=== PATIENT | female | born 1995 | race Caucasian/White ===

== ENCOUNTER 2016-04-16 11:26 | Inpatient (IN) | payer BC, MEDICAID ==
[~2016-04-16] VITALS: Ht 157.5 cm; Wt 62.2 kg
[~2016-04-16 11:26] MED LIST: ACET50TA PO; MOTR200T44 PO; PRENTAB9 PO
[2016-04-16 12:07] LABS: AMPHETAMINES LEVEL URINE NEGATIVE (NEGATIVE); BENZODIAZEPINES URINE NEGATIVE (NEGATIVE); COCAINE METABOLITE URINE NEGATIVE (NEGATIVE); CONTROL LINE INT CTR LINE PRESENT; METHADONE URINE NEGATIVE (NEGATIVE); OPIATES URINE NEGATIVE (NEGATIVE); TRICYCLIC ANTIDEPRESS URINE NEGATIVE (NEGATIVE)
[2016-04-16 12:12] LABS: CONTROL LINE HCG INT CTR LINE PRESENT
[2016-04-16 12:17] LABS: MEAN CORPUSCULAR HEMOGLOBIN 29.8 pg (27.0-33.0); MEAN CORPUSCULAR HGB CONC 33.5 g/dl (32.0-36.5); RED CELL DISTRIBUTION WIDTH 13.2 % (11.5-14.5); WHITE BLOOD COUNT 5.4 K/mm3 (4.0-10.0)
[2016-04-16 12:31] LABS: ALKALINE PHOSPHATASE 89 U/L (45-117); ALT/SGPT 27 U/L (12-78); ANION GAP 10 MEQ/L (8-16); AST/SGOT 18 U/L (15-37); BILIRUBIN,DIRECT 0.2 MG/DL (0.0-0.2); BILIRUBIN,TOTAL 0.8 MG/DL (0.2-1.0); BLOOD UREA NITROGEN 12 MG/DL (7-18); CALCIUM LEVEL 9.1 MG/DL (8.5-10.1); CARBON DIOXIDE LEVEL 25 MEQ/L (21-32); CHLORIDE LEVEL 109 MEQ/L (98-107); GLOMERULAR FILTRATION RATE > 60.0 (>60); GLUCOSE, FASTING 90 MG/DL (70-105); POTASSIUM SERUM 4.4 MEQ/L (3.5-5.1); SODIUM LEVEL 144 MEQ/L (136-145)
--- NOTE | 2016-04-16 15:42 | EDDOCDS ---
Physician Documentation [facility] Name: Mariia Gallegos Age: 21 yrs Sex: Female : 1995 Arrival Date: 04/16/2016 Time: 11:26 Bed BHU1 Private MD: Haven Cartagena K. Disposition: 04/16/16 13:40 Hospitalization ordered by Ludin Carrion for Inpatient Admission. Preliminary diagnosis is Major depressive disorder, single episode. - Bed requested for Admit. - Status is Inpatient Admission. mcp - Condition is Stable. - Problem is an acute exacerbation. - Symptoms are unchanged. Historical: - Allergies: No known drug Allergies; - Home Meds: 1. none - PMHx: Anxiety; Depression; SI thoughts; - PSHx: Lumpectomy- Left; - Social history: Smoking status: Patient states was never smoker of tobacco. No barriers to communication noted, The patient speaks fluent Welsh. - Family history: Not pertinent. - : The pt / caregiver states he / she is not on anticoagulants. Home medication list is obtained from the patient. - Exposure Risk Screening:: None identified. GEOTECHNICAL INTERN: 04/16 11:51 Patient states she has not resumed regular menses since of daughter 2 months ago. js13 Patient reports occasional spotting. Vital Signs: 11:27 BP 128 / 76; Pulse 75; Resp 16; Temp 98.9; Pulse Ox 100% ; Weight 58.97 kg / 130.01 cmb lbs; Height 5 ft. 2 in. (157.48 cm); Pain 0/10; 15:20 BP 130 / 60; Pulse 72; Resp 16; Temp 98; Pulse Ox 98% ; Pain 3/10; dpm 11:27 Body Mass Index 23.78 (58.97 kg, 157.48 cm) cmb MDM: 11:32 Consult PFS/PSA/Utilization Review Coordinator ordered. sd1 11:32 Consult PFS/PSA/Utilization Review Coordinator: Patient's case requires discussion with on-call sd1 Psychiatrist ordered. 11:32 PSA/PFS to call Nursing Pickers Material Handlers, to enter patient data on [place] Safe Act if patient sd1 involuntarily admitted or transferred for SI or HI ordered. 11:32 Confirm accurate psychiatric medication list and times of last dosage ordered. sd1 11:32 Detain Pt Until Medically/PFS Cleared ordered. sd1 11:33 Acetaminophen Level Ordered. EDMS 11:33 Basic Metabolic Profile Ordered. EDMS 11:33 Complete Blood Count Ordered. EDMS 11:33 Drug Eval Toxicology ED Only Ordered. EDMS 11:33 Ethyl Alcohol (ethanol) Ordered. EDMS 11:33 HCG,Serum Qualitative Ordered. EDMS 11:34 Liver Profile Ordered. EDMS 11:34 Salicylate Level Ordered. EDMS 11:34 Thyroid Stimulating Hormone Ordered. EDMS 12:13 Financial registration complete. pm4 12:34 Drug Eval Toxicology ED Only Reviewed. sd1 12:34 Complete Blood Count Reviewed. sd1 12:34 HCG,Serum Qualitative Reviewed. sd1 12:40 [facility] Payment Agreement was scanned into [employer] and attached to record. pm4 14:28 Consult PFS/PSA/Utilization Review Coordinator complete. srm 14:28 Consult PFS/PSA/Utilization Review Coordinator: Patient's case requires discussion with on-call srm Psychiatrist complete. 14:28 PSA/PFS to call Nursing [employer], to enter patient data [place] Safe [place] if patient srm involuntarily admitted or transferred for SI or HI complete. 14:34 Admit to IMHU: ordered. EDMS 15:05 [facility] Legal paperwork was scanned into [employer] and attached to record. ac Signatures: Dispatcher [employer] EDMS Susie Bonilla MD MD sd1 Jennifer Tellez, RN RN Lillian Holcomb, RN RN Hubert Lynn, PSA PSA ac Micaela Diaz,RN RN js13 Will Palafox, Reg Reg pm4 The chart was reviewed and I authenticate all verbal orders and agree with the evaluation and treatment provided.Attachments: 12:40 [facility] Payment Agreement pm4 MTDD
--- NOTE | 2016-04-16 15:42 | EDDOCDS ---
Nurse's Notes [facility] Name: Mariia Gallegos Age: 21 yrs Sex: Female : 1995 Arrival Date: 04/16/2016 Time: 11:[address] MD: Haven Cartagena K. Diagnosis: Major depressive disorder, single episode Presentation: 04/16 11:42 Presenting complaint: Patient states: Patient was sent here from [facility] office for SI js13 and HI. Patient states she has a Hx of anxiety and depression and had a daughter 2 months ago. Patient states she has had increasing thoughts of SI with a plan to take overdose of Tylenol and/or Ibuprofen and thoughts of HI with a plan to suffocate her 2 month old daughter. Mental Health Triage Level: Level 2: The patient displays active suicidal ideations. The patient displays active homicidal ideations. Adult Sepsis Screening: The patient does not have new or worsening altered mentation. Patient's respiratory rate is less than 22. Systolic blood pressure is greater than 100. Patient has a qSOFA score of 0- Negative Sepsis Screen. Suicide/Homicide risk assessment- The patient admits to and/or has been reported to be having suicidal ideations. The patient admits to and/or has been reported to be having homicidal ideations. Status: Patient is not a director of professional services or dependent. Transition of care: patient was received from a primary care office; Dr Tena. Red Flag criteria, patient assessed and taken directly to a bed. 11:42 Acuity: JENNIFER Level 3 js13 11:42 Method Of Arrival: Walkin/Carried/Asstd js13 Triage Assessment: 11:49 General: Appears in no apparent distress, well developed, well nourished, well groomed, js13 Behavior is appropriate for age, cooperative. 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 . Pain: Denies pain. Pt Declines HIV testing. Neurological: Level of Consciousness is awake, alert. Respiratory: Airway is patent Respiratory effort is even, unlabored, Respiratory pattern is regular, symmetrical. Derm: Skin is pink, warm & dry. [facility]: 11:51 Patient states she has not resumed regular menses since of daughter 2 months ago. js13 Patient reports occasional spotting. Historical: - Allergies: No known drug Allergies; - Home Meds: 1. none - PMHx: Anxiety; Depression; SI thoughts; - PSHx: Lumpectomy- Left; - Social history: Smoking status: Patient states was never smoker of tobacco. No barriers to communication noted, The patient speaks fluent Arabic. - Family history: Not pertinent. - : The pt / caregiver states he / she is not on anticoagulants. Home medication list is obtained from the patient. - Exposure Risk Screening:: None identified. Screenin:50 Screening information is obtained from the patient. Fall risk: No risks identified. js13 Assistance ADL's: requires no assistance with activities of daily living. Abuse/DV Screen: The patient / caregiver reports he/she is: not in a situation that causes fear, pain or injury. Nutritional screening: No deficits noted. Advance Directives: There is no active DNR order. home support is adequate. Assessment: 11:50 General: Appears in no apparent distress, comfortable, Behavior is appropriate for age, js13 cooperative. Pain: Denies pain. Neurological: Level of Consciousness is awake, alert. Respiratory: Airway is patent Respiratory effort is even, unlabored, Respiratory pattern is regular, symmetrical. Derm: Skin is pink, warm & dry. 13:00 General: Appears in no apparent distress, comfortable, Behavior is appropriate for age, js13 cooperative. Neurological: Level of Consciousness is awake, alert. Respiratory: No deficits noted. Derm: Skin is pink, warm & dry. 15:38 General: Appears in no apparent distress, comfortable, Behavior is cooperative. Pain: mcp Location: head Pain currently is 3 out of 10 on a pain scale. Neurological: Level of Consciousness is awake, alert, Oriented to person, place, time, Moves all extremities. Speech is normal, Reports headache. Respiratory: Airway is patent Respiratory effort is even, unlabored. Derm: Skin is pink, warm & dry. Mental Health Eval: 14:53 Status: The patient is not a director of professional services or dependent. [facility]: The patient is not an established patient of [facility]. Referral Information: Evaluation referral is generated by [facility]. The patient was referred for evaluation because Pt went to [facility] today, states she has been depressed, suicidal with plan to overdose, and also has had thoughts of smothering her 2 month old daughter. Subjective: The patients chief complaint is "I've been depressed since my daughter was born, I. 15:18 Mental Health history: depression, suicide attempt by took overdose as teenager, did ac not receive any treatment Mental Health Admissions: None. Current Outpatient Mental Health Services: None. Current living environment is The patient currently lives with his / her child. with his / her significant other, . Patient presents to Emergency Department with the following symptoms within the past 2 weeks: anxiety, depressed mood, feelings of helplessness/hopelessness, poor concentration, sleep disturbance - erratic suicidal ideation with plan for pills. Patient presents to Emergency Department with the following symptoms within the past 2 weeks: Homicidal ideation toward their 2 month old daughter. Substance abuse: Pt denies. Mental status exam: Patients appearance is appropriate, Patient's behavior is cooperative, Speech is normal. Affect is blunted Mood is depressed. Hallucinations are denied. Appetite is normal. Memory is good. Energy level is normal. Content of thought is normal. Thought process is intact. Cognitive level is oriented to person, place, time and situation Patient's insight is fair. Rapport with interviewer is good. poor. 15:22 Disposition: Medically cleared for disposition by Susie Bonilla MD Psychiatric ac Consult is performed by phone with Dr Sheree Ng. [facility] Admission Criteria: The patient is experiencing suicidal ideation. The patient displays homicidal ideation. The patient requires continuous observation and/or control to protect self, others or property. The patient's care requires a multi-modal treatment plan under close supervision and coordination due to the complexity and severity of the patient's symptoms. The patient requires administration and monitoring of psychoactive medications by skilled medical providers due to the side effects of the psychoactive medications or significant dosage adjustments. Legal Status: Patient's legal status will be Emergency admission: . [place] Safe Act: [place] Safe Act is applicable to this patient. The patient poses a risk to self or other and the Nursing Lidar Analyst has been notified. He/She will enter the patient's data. DSM-V Differential Diagnosis: Unspecified Depressive Disorder (F32.9). Narrative: Pt reports that she is suicidal and homicidal, states that she has been depressed since the of her first child two months ago. PT states she has plan to overdose, thought about smothering her daughter, who she has staying with her biological father. Pt denies VH, states is unsure about hearing voices as opposed to her "conscience" telling her she is a bad mother and she is undeserving. Pt is not able to CFS at this time. Pt denies drug/ETOH abuse. Vital Signs: 11:27 BP 128 / 76; Pulse 75; Resp 16; Temp 98.9; Pulse Ox 100% ; Weight 58.97 kg; Height 5 cmb ft. 2 in. (157.48 cm); Pain 0/10; 15:20 BP 130 / 60; Pulse 72; Resp 16; Temp 98; Pulse Ox 98% ; Pain 3/10; dpm 11:27 Body Mass Index 23.78 (58.97 kg, 157.48 cm) cmb Vitals: 11: Log In Time: April 16, 2016 at 11:24. cmb 11:27 RN notified that patient meets Red Flag criteria. cmb ED Course: 11:[address] cmb 11:27 Haven Cartagena is Private Physician. cmb 11:27 Patient moved to [facility] cmb 11:[address] cmb 11:31 Patient moved to [facility] cmb 11:31 RN notified that patient meets Red Flag criteria. cmb 11:39 Patient visited by Nahum Emmanuel. dpm 11:48 Triage Initiated js13 11:50 The patient / caregiver is instructed regarding the plan of care and ED course. js13 Security observing. 11:50 No IV's were initiated during this patient's visit. No procedures done that require js13 assistance. Labs drawn. (by ED staff). Sent per order to lab. Urine collected. Clean catch specimen. Urine specimen sent to lab. 11:58 Susie Bonilla MD is Attending Physician. sd1 11:58 Patient visited by Susie Bonilla MD. sd1 11:59 Patient visited by Silvano Bowen,WINTER. mb9 12:02 Pt greeted and oriented to ED. Patient advised of names of staff involved in care, dpm location of call julio, wait times and NPO status. Patient has correct armband on for positive identification. Placed in gown. Placed in psych safe attire. Bed in low position. Side rails up X 1. Property removed, inventory done, given to family member, mother. Psych Safety Check: Location: Psych Room. Visual Assessment: Cooperative. 12:15 Patient visited by Nahum Emmanuel. dpm 12:36 Patient visited by Nahum Emmanuel. dpm 12:40 [facility] Payment Agreement was scanned into [employer] and attached to record. pm4 12:58 Patient visited by Nahum Emmanuel. dpm 13:05 Patient visited by Jennifer Tellez RN. srm 13:05 Diet: Patient given regular meal. srm 13:19 Patient visited by Nahum Emmanuel. dpm 13:40 Ludin Carrion is Hospitalizing Provider. sd1 13:45 Patient visited by Nahum Emmanuel. dpm 14:01 Patient visited by Nahum Emmanuel. dpm 14:14 Patient visited by Nahum Emmanuel. dpm 14:32 Patient visited by Nahum Emmanuel. dpm 14:47 Patient visited by Nahum Emmanuel. dpm 15:02 Patient visited by Nahum Emmanuel. dpm 15:05 E Legal paperwork was scanned into [employer] and attached to record. ac 15:16 Patient visited by Nahum Emmanuel. dpm 15:32 Patient visited by Nahum Emmanuel. dpm Attachments: 15:05 [facility] Legal paperwork ac Order Results: Lab Order: Acetaminophen Level; SPEC'M 04/16/16 11:42 Test: ACETAMINOPHEN LEVEL; Value: < 2.0; Range: 10.0-30.0; Abnormal: Below low normal; Units: UG/ML; Status: F Lab Order: Basic Metabolic Profile; SPEC'M 04/16/16 11:42 Test: GLUCOSE, FASTING; Value: 90; Range: 70-105; Units: MG/DL; Status: F Test: BLOOD UREA NITROGEN; Value: 12; Range: 7-18; Units: MG/DL; Status: F Test: CREATININE FOR GFR; Value: 0.80; Range: 0.55-1.02; Units: MG/DL; Status: F Test: SODIUM LEVEL; Range: 136-145; Units: MEQ/L; Status: I Test: POTASSIUM SERUM; Range: 3.5-5.1; Units: MEQ/L; Status: I Test: CHLORIDE LEVEL; Range: 98-107; Units: MEQ/L; Status: I Test: CARBON DIOXIDE LEVEL; Range: 21-32; Units: MEQ/L; Status: I Test: ANION GAP; Range: 8-16; Units: MEQ/L; Status: I Test: CALCIUM LEVEL; Range: 8.5-10.1; Units: MG/DL; Status: I Test: GLOMERULAR FILTRATION RATE; Value: > 60.0; Range: >60; Status: F Test: SODIUM LEVEL; Value: 144; Range: 136-145; Units: MEQ/L; Status: F Test: POTASSIUM SERUM; Value: 4.4; Range: 3.5-5.1; Units: MEQ/L; Status: F Test: CHLORIDE LEVEL; Value: 109; Range: 98-107; Abnormal: Above high normal; Units: MEQ/L; Status: F Test: CARBON DIOXIDE LEVEL; Value: 25; Range: 21-32; Units: MEQ/L; Status: F Test: ANION GAP; Value: 10; Range: 8-16; Units: MEQ/L; Status: F Test: CALCIUM LEVEL; Value: 9.1; Range: 8.5-10.1; Units: MG/DL; Status: F Test Note: ; Units are mL/min/1.73 m2 Chronic Kidney Disease Staging per NKF: Stage I & II GFR >=60 Normal to Mildly Decreased Stage III GFR 30-59 Moderately Decreased Stage IV GFR 15-29 Severely Decreased Stage V GFR <15 Very Little GFR Left ESRD GFR <15 on CORK INSULATOR Lab Order: Complete Blood Count; SPEC'M 04/16/16 11:42 Test: WHITE BLOOD COUNT; Value: 5.4; Range: 4.0-10.0; Units: K/mm3; Status: F Test: RED BLOOD COUNT; Value: 5.03; Range: 4.00-5.40; Units: M/mm3; Status: F Test: HEMOGLOBIN; Value: 15.0; Range: 12.0-16.0; Units: g/dl; Status: F Test: HEMATOCRIT; Value: 44.7; Range: 36.0-47.0; Units: %; Status: F Test: MEAN CORPUSCULAR VOLUME; Value: 89.0; Range: 80.0-96.0; Units: fl; Status: F Test: MEAN CORPUSCULAR HEMOGLOBIN; Value: 29.8; Range: 27.0-33.0; Units: pg; Status: F Test: MEAN CORPUSCULAR HGB CONC; Value: 33.5; Range: 32.0-36.5; Units: g/dl; Status: F Test: RED CELL DISTRIBUTION WIDTH; Value: 13.2; Range: 11.5-14.5; Units: %; Status: F Test: PLATELET COUNT, AUTOMATED; Value: 303; Range: 150-450; Units: k/mm3; Status: F Lab Order: Drug Eval Toxicology ED Only; SPEC'M 04/16/16 11:42 Test: AMPHETAMINES LEVEL URINE; Value: NEGATIVE; Range: NEGATIVE; Status: F Test: BARBITURATES URINE; Value: NEGATIVE; Range: NEGATIVE; Status: F Test: BENZODIAZEPINES URINE; Value: NEGATIVE; Range: NEGATIVE; Status: F Test: CANNABINOIDS URINE; Value: POSITIVE; Range: NEGATIVE; Abnormal: Above high normal; Status: F Test: COCAINE METABOLITE URINE; Value: NEGATIVE; Range: NEGATIVE; Status: F Test: METHADONE URINE; Value: NEGATIVE; Range: NEGATIVE; Status: F Test: OPIATES URINE; Value: NEGATIVE; Range: NEGATIVE; Status: F Test: TRICYCLIC ANTIDEPRESS URINE; Value: NEGATIVE; Range: NEGATIVE; Status: F Test Note: ; FALSE POSITIVE RESULTS CAN BE CAUSED BY THE USE OF PANTOPRAZOLE (PROTONIX). Lab Order: Ethyl Alcohol (ethanol); SPEC'M 04/16/16 11:42 Test: ETHYL ALCOHOL (ETHANOL); Value: < 0.003; Range: 0.000-0.010; Units: %; Status: F Lab Order: HCG,Serum Qualitative; SPEC'M 04/16/16 11:42 Test: HCG, SERUM QUALITATIVE; Value: NEGATIVE; Range: NEGATIVE; Status: F Lab Order: Liver Profile; SPEC'M 04/16/16 11:42 Test: AST/SGOT; Value: 18; Range: 15-37; Units: U/L; Status: F Test: ALT/SGPT; Value: 27; Range: 12-78; Units: U/L; Status: F Test: ALKALINE PHOSPHATASE; Value: 89; Range: 45-117; Units: U/L; Status: F Test: BILIRUBIN,TOTAL; Value: 0.8; Range: 0.2-1.0; Units: MG/DL; Status: F Test: BILIRUBIN,DIRECT; Value: 0.2; Range: 0.0-0.2; Units: MG/DL; Status: F Test: TOTAL PROTEIN; Value: 8.0; Range: 6.4-8.2; Units: GM/DL; Status: F Test: ALBUMIN; Value: 4.0; Range: 3.2-5.2; Units: GM/DL; Status: F Test: ALBUMIN/GLOBULIN RATIO; Value: 1.00; Range: 1.00-1.93; Status: F Lab Order: Salicylate Level; SPEC'M 04/16/16 11:42 Test: SALICYLATE LEVEL; Value: < 1.7; Range: 5.0-30.0; Abnormal: Below low normal; Units: MG/DL; Status: F Lab Order: Thyroid Stimulating Hormone; SPEC'M 04/16/16 11:42 Test: THYROID STIMULATING HORMONE; Value: 0.952; Range: 0.358-3.740; Units: uIU/ML; Status: F Outcome: 13:40 Decision to Hospitalize by Provider. sd1 15:39 Discharge Assessment: patient administered narcotics - no. The following High Risk [facility] Discharge criteria are identified: None. Admitted to Psych accompanied by tech, via wheelchair, with chart. Condition: stable. No special radiology studies were completed. 15:40 Patient left the ED. [facility] Signatures: Susie Bonilla MD MD sd1 Jennifer Tellez RN Lillian Aguilar RN Hubert Hendrickson mcp, PSA PSA ac Sullivan, Jennifer, RN RN js13 Nahum Emmanuel dpm, [place] cmb Belles, Michael, RN RN mb9 Will Palafox, Reg Reg pm4 MTDD
[2016-04-16 16:51] VITALS: BP 123/68
[2016-04-16] MEDS ORDERED: MOM 30ML SUSPENSION UDC PO PRN (17:00)
[2016-04-16] MEDS ORDERED: MAALOX 30 ML SUSP *UDC PO PRN (17:00)
[2016-04-17 06:22] VITALS: BP 111/64
--- NOTE | 2016-04-17 12:31 | HPEPDOC ---
Medical History and Physical Date of Admission Apr 16, 2016 at 15:45 History and Physical PCP: [facility] ATTENDING: Dr. Amrik Montenegro HPI: 21yoF admitted to [facility] for Adjustment disorder, being medically examined today. Patient complains of mid and low back pain which is worse with activity, moving, or lifting. She states she has a history of scoliosis since she was a child. She denies pain currently. She states when she does have pain begins in her mid back and radiates down to her low back. She denies any radiation of pain down her legs. She denies weakness in her legs. She denies numbness or tingling in lower extremities. Sometimes she uses ibuprofen which she states is minimally effective for her pain. She usually uses Vicodin which she gets from friends. She states the pain is achy. She has never discussed this with her primary care provider. She has never had imaging of her back. She denies neck pain. No weakness, numbness, or tingling in upper extremities. She does not complain of headaches, diplopia, vertigo, dysarthria, or dysphagia. She states she had a baby 2 months ago, she denies breast-feeding. Denies any fevers, chills, weakness, fatigue, BANEGAS, CP, SOB, cough, palpitations, abdominal pain, N/V/D or changes in bowel or bladder habits. PMHx: Chronic back pain Scoliosis Anxiety/depression History of SI PSHX: Left breast lumpectomy SOCHX: Resides in: [facility] Marital Status: Ago Kids: 2-month-old Employment: Unemployed Tobacco use: Denies ETOH: Denies Illicit Drugs: Marijuana weekly, Vicodin from friends IV Drug Use: Denies Tattoos done unprofessionally: Denies FAMHX: Patient is adopted and is unaware of her biological family history. Children: Alive, well Unexpected deaths due to medical reasons: None. ROS: As noted in HPI, otherwise 11pt ROS of systems reviewed and remarkable only for LMP greater than 11 months. Currently on Depo as per PP. PE: GEN: 21yoF appears stated age. Well-nourished, well developed. No acute distress. Alert and oriented x 3. Pleasant, interactive. HEENT: Normocephalic, atraumatic. Pupils are equal, round, and reactive to light. Extraocular movements are intact. No nystagmus appreciated. Sclera are nonicteric. Conjunctiva without injection. Nose midline. Nasal turbinates without bogginess. EACs both patent BL. TMs both visualized and garzon with good cone of light, no bulging or erythema. No facial asymmetry. Moist mucous membranes. Dentition fair. Pharynx pink and moist, no cobblestoning. Neck supple , trachea midline. No lymphadenopathy or thyromegaly appreciated. CHEST: Regular rate and rhythm, +S1, +S2 LUNGS: Clear to auscultation bilaterally. No wheezes, rales, or rhonchi. Breathing appears symmetric and easy. Patient is speaking in full sentences. No accessory muscle use. ABD: Round, soft, non-tender, non-distended. +Bowel sounds throughout. No rebound or guarding. No costovertebral angle tenderness. EXT: Pulses 2+ bilaterally dorsalis pedis and radial. No lower extremity edema appreciated. SKIN: [place], dry, warm. Capillary refill <2sec. No rashes. NEURO: Alert and oriented x 3. Cranial nerves III-XII are intact. No focal deficits appreciated. There is currently no tenderness with palpation over the thoracic spine or lumbosacral area as well as paraspinal muscles. Good range of motion. She is ambulating without difficulty and no assistive devices. EKG: pending. A&P: 21yoF admitted to [facility] for Adjustment disorder 1. Psych. Plan per Psychiatry. Obtain baseline EKG to assure the safety of psychiatric medications as they can prolong the QT interval. 2. Thoracic spine pain and lumbar spine pain. Check x-ray of thoracic and lumbosacral spine. Continue with Tylenol as needed. 3. History of scoliosis. 4. Follow up with PCP on discharge. [facility]. 5. Substance use. Per psychiatry. 6. Contraception. Receives Depo-Provera injection as per PP. 7. Accompanied by staff member Noelle throughout exam. Vital Signs Vital Signs Label Value Date Time Patient Temperature 98.1 degrees F 04/17/16 06 Temperature Source Tympanic 04/17/16 06 Pulse 60 04/17/16 0622 Respiratory Rate 16 bpm 04/17/16 0622 Blood Pressure Assessment 111/64 (80) 04/17/16 0622 Laboratory Data Labs 24H Item Value Date Time White Blood Count 5.4 K/mm3 04/16/16 1142 Red Blood Count 5.03 M/mm3 04/16/16 1142 Hemoglobin 15.0 g/dl 04/16/16 1142 Hematocrit 44.7 % 04/16/16 1142 Mean Corpuscular Volume 89.0 fl 04/16/16 1142 Mean Corpuscular Hemoglobin 29.8 pg 04/16/16 1142 Mean Corpuscular Hemoglobin Concent 33.5 g/dl 04/16/16 1142 Red Cell Distribution Width 13.2 % 04/16/16 1142 Platelet Count 303 k/mm3 04/16/16 1142 Sodium Level 144 MEQ/L 04/16/16 1142 Potassium Level 4.4 MEQ/L 04/16/16 1142 Chloride Level 109 MEQ/L H 04/16/16 1142 Carbon Dioxide Level 25 MEQ/L 04/16/16 1142 Anion Gap 10 MEQ/L 04/16/16 1142 Blood Urea Nitrogen 12 MG/DL 04/16/16 1142 Creatinine 0.80 MG/DL 04/16/16 1142 Glomerular Filtration Rate > 60.0 04/16/16 1142 Fasting Glucose 90 MG/DL 04/16/16 1142 Calcium Level 9.1 MG/DL 04/16/16 1142 Total Bilirubin 0.8 MG/DL 04/16/16 1142 Direct Bilirubin 0.2 MG/DL 04/16/16 1142 Aspartate Amino Transf (AST/SGOT) 18 U/L 04/16/16 1142 Alanine Aminotransferase (ALT/SGPT) 27 U/L 04/16/16 1142 Alkaline Phosphatase 89 U/L 04/16/16 1142 Total Protein 8.0 GM/DL 04/16/16 1142 Albumin 4.0 GM/DL 04/16/16 1142 Albumin/Globulin Ratio 1.00 04/16/16 1142 Thyroid Stimulating Hormone (TSH) 0.952 uIU/ML 04/16/16 1142 Human Chorionic Gonadotropin, Qual NEGATIVE 04/16/16 1142 Urine Opiates Screen NEGATIVE 04/16/16 1142 Urine Methadone Screen NEGATIVE 04/16/16 1142 Urine Barbiturates, Qualitative NEGATIVE 04/16/16 1142 Urine Tricyclic Antidepressants NEGATIVE 04/16/16 1142 Urine Amphetamine Level NEGATIVE 04/16/16 1142 Urine Benzodiazepines Screen NEGATIVE 04/16/16 1142 Urine Cocaine Metabolite NEGATIVE 04/16/16 1142 Urine Cannabinoids POSITIVE H 04/16/16 1142 Ethyl Alcohol Level < 0.003 % 04/16/16 1142 Acetaminophen Level < 2.0 UG/ML L 04/16/16 1142 Salicylates Level < 1.7 MG/DL L 04/16/16 1142 Home Medications No Active Prescriptions or Reported Meds Allergies Coded Allergies: No Known Allergies (Unverified , 02/22/16) Liv Alvarado Apr 17, 2016 12:31
[2016-04-17] MEDS: PARoxetine 10MG TABLET PO SCH (12:59)
[2016-04-17] MEDS: ACETAMINOPHEN TAB 650MG DOSE (2X325MG) PO PRN (12:59)
--- NOTE | 2016-04-17 13:12 | MHHPE ---
DATE OF ADMISSION: 04/16/2016 CURRENT MEDICATIONS: None. CHIEF COMPLAINT: Homicidal and suicidal ideation. HISTORY OF PRESENT ILLNESS: This is a 21-year-old white female living with her boyfriend Jeremy and 2-month-old daughter. 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 Her depression got worse after the of her daughter. She is having homicidal thoughts about smothering the baby. The patient is easily frustrated when the baby cries. The patient has trouble soothing the baby, which leads to the homicidal thoughts as well as suicidal thoughts. The patient has had thoughts of taking an overdose. The patient states her appetite is poor. She has trouble sleeping at night. She is always anxious. She is on edge. She is irritable. She is apathetic with lack of motivation. She has little interest in activities of daily living (ADL). Concentration is poor. Level of energy is low with little pleasure out of life. She feels helpless and hopeless. The patient reports possible auditory hallucinations. These are thoughts or voices with negative content. They are quite critical, telling her that she is a bad mother. She has heard these for many years off and on. PAST PSYCHIATRIC HISTORY: She has been in and out of treatment for many years. A trial on sertraline was not effective. Wellbutrin made her feel numb. Effexor made her more suicidal. She had never been on Paxil, Celexa or Prozac. She has never been on antipsychotics. She has never been hospitalized before. MEDICAL HISTORY: The patient has a deformity with absence of left hand. ALLERGIES: Patient denies. LEGAL HISTORY: None noted. CHEMICAL DEPENDENCY: The patient does smoke cannabis on occasion. She does abuse pain pills that she gets from her friend. She has not been in formal CD treatment however. SOCIAL HISTORY: The patient is adopted. Her mother has a history of serious mental illness with frequent hospitalizations. The patient was born in [place] and was in a foster family in [place] since age 4. She recently moved here to [place] in November 2014 to be with her boyfriend Jeremy. Relationship with her adopted parents are good. She has a high school degree. 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 FAMILY PSYCH HISTORY: The patient's mother has a history of serious psychiatric illness but with an unknown diagnosis. MENTAL STATUS EXAMINATION: The patient is alert, oriented and cooperative. She is anxious. She is sad. She is depressed. She has homicidal and suicidal thoughts. She does report possible auditory hallucinations as mentioned above. No signs of paranoia or thought disorder. Impulse control is problematic with poor frustration tolerance. 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 Insight is limited. Judgment is poor. She is a potential danger to herself and her baby. ASSESSMENT: The patient appears to have chronic depression with possible psychotic features, worsened with a post presentation. 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 DIAGNOSIS: Major depression, recurrent, with possible psychotic features. Anorexia nervosa in remission. Opiate use disorder. Cannabis use disorder. PROBLEM LIST: Risk for suicide and homicide. Depression. PLAN: The patient to start trial on Paxil 10 mg daily. Also given Risperdal 1 mg at bedtime to help with any possible psychotic symptoms and with sleep. 9.39 confirmed. Assessment of intellectual functioning may be in order.
--- NOTE | 2016-04-17 14:46 | REP ---
Lumbosacral spine series five view exam performed 04/17/2016 Indication: Pain, history of scoliosis Comparison: Lumbosacral spine series 05/03/2015 There is a transitional vertebra with sacralization of L5 on the right. There is no acute fracture or spondylolisthesis. These findings are consistent with anatomic variant. There is no acute fracture There is no significant scoliotic deformity identified on this study Impression: No acute fracture or spondylolisthesis Transitional vertebra with sacralization of L5 on the right Signed by Olesya Palencia MD 04/17/2016 02:38 P
[2016-04-17 18:00] VITALS: BP 120/64
[2016-04-17] MEDS: risperiDONE 1 MG TAB PO SCH (20:56)
[2016-04-17] MEDS: traZODone 50 MG TAB PO PRN (22:15)
[2016-04-18 06:25] VITALS: BP 105/48
[2016-04-18] MEDS: PARoxetine 10MG TABLET PO SCH (09:41)
--- NOTE | 2016-04-18 16:04 | ECGEPIP ---
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
--- NOTE | 2016-04-18 16:41 | EDDOCDS ---
Physician Documentation [facility] Name: Mariia Gallegos Age: 21 yrs Sex: Female : 1995 Arrival Date: 04/16/2016 Time: 11:26 Bed BHU1 Private MD: Haven Cartagena K. Disposition: 04/16/16 13:40 Hospitalization ordered by Ludin Carrion for Inpatient Admission. Preliminary diagnosis is Major depressive disorder, single episode. - Bed requested for Admit. - Status is Inpatient Admission. mcp - Condition is Stable. - Problem is an acute exacerbation. - Symptoms are unchanged. Historical: - Allergies: No known drug Allergies; - Home Meds: 1. none - PMHx: Anxiety; Depression; SI thoughts; - PSHx: Lumpectomy- Left; - Social history: Smoking status: Patient states was never smoker of tobacco. No barriers to communication noted, The patient speaks fluent Swedish. - Family history: Not pertinent. - : The pt / caregiver states he / she is not on anticoagulants. Home medication list is obtained from the patient. - Exposure Risk Screening:: None identified. 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 [id number] Patient reports occasional spotting. Vital Signs: 11:27 BP 128 / 76; Pulse 75; Resp 16; Temp 98.9; Pulse Ox 100% ; Weight 58.97 kg / 130.01 cmb lbs; Height 5 ft. 2 in. (157.48 cm); Pain 0/10; 15:20 BP 130 / 60; Pulse 72; Resp 16; Temp 98; Pulse Ox 98% ; Pain 3/10; dpm 11:27 Body Mass Index 23.78 (58.97 kg, 157.48 cm) cmb MDM: 11:32 Consult PFS/PSA/Ob Gyn Physician Assistant ordered. sd1 11:32 Consult PFS/PSA/Ob Gyn Physician Assistant: Patient's case requires discussion with on-call sd1 Psychiatrist ordered. 11:32 PSA/PFS to call Nursing Rn Production, to enter patient data on [place] Safe [place] if patient sd1 involuntarily admitted or transferred for SI or HI ordered. 11:32 Confirm accurate psychiatric medication list and times of last dosage ordered. sd1 11:32 Detain Pt Until Medically/PFS Cleared ordered. sd1 11:33 Acetaminophen Level Ordered. EDMS 11:33 Basic Metabolic Profile Ordered. EDMS 11:33 Complete Blood Count Ordered. EDMS 11:33 Drug Eval Toxicology ED Only Ordered. EDMS 11:33 Ethyl Alcohol (ethanol) Ordered. EDMS 11:33 HCG,Serum Qualitative Ordered. EDMS 11:34 Liver Profile Ordered. EDMS 11:34 Salicylate Level Ordered. EDMS 11:34 Thyroid Stimulating Hormone Ordered. EDMS 12:13 Financial registration complete. pm4 12:34 Drug Eval Toxicology ED Only Reviewed. sd1 12:34 Complete Blood Count Reviewed. sd1 12:34 HCG,Serum Qualitative Reviewed. sd1 12:40 [place] Payment Agreement was scanned into [employer] and attached to record. pm4 14:28 Consult PFS/PSA/Ob Gyn Physician Assistant complete. srm 14:28 Consult PFS/PSA/Ob Gyn Physician Assistant: Patient's case requires discussion with on-call srm Psychiatrist complete. 14:28 PSA/PFS to call Nursing Rn Production, to [place] patient data [place] Safe [place] if patient srm involuntarily admitted or transferred for SI or HI complete. 14:34 Admit to IMHU: ordered. EDMS 15:05 [facility] Legal paperwork was scanned into [employer] and attached to record. ac 04/17 12:02 T-Sheet-- Draft Copy was scanned into [employer] and attached to record. gb Signatures: Dispatcher [employer] Susie Villa MD MD sd1 Jennifer Tellez, RN RN Lillian Holcomb, RN Hubert Hendrickson mcp, PSA PSA ac Marilin Haines, Reg Reg gb Micaela Diaz,WINTER RN [id number] Will Palafox, Reg Reg pm4 The chart was reviewed and I authenticate all verbal orders and agree with the evaluation and treatment provided.Attachments: 04/16 12:40 [place] Payment Agreement pm4 04/17 12:02 T-Sheet-- Draft Copy gb Chart Complete MTDD
--- NOTE | 2016-04-18 16:41 | EDDOCDS ---
Nurse's Notes [facility] Name: Mariia Gallegos Age: 21 yrs Sex: Female : 1995 Arrival Date: 04/16/2016 Time: 11:[address] MD: Haven Cartagena K. Diagnosis: Major depressive disorder, single episode Presentation: 04/16 11:42 Presenting complaint: Patient states: Patient was sent here from SAFETY COORDINATOR office for SI js13 and HI. Patient states she has a Hx of anxiety and depression and had a daughter 2 months ago. Patient states she has had increasing thoughts of SI with a plan to take overdose of Tylenol and/or Ibuprofen and thoughts of HI with a plan to suffocate her 2 month old daughter. Mental Health Triage Level: Level 2: The patient displays active suicidal ideations. The patient displays active homicidal ideations. Adult Sepsis Screening: The patient does not have new or worsening altered mentation. Patient's respiratory rate is less than 22. Systolic blood pressure is greater than 100. Patient has a qSOFA score of 0- Negative Sepsis Screen. Suicide/Homicide risk assessment- The patient admits to and/or has been reported to be having suicidal ideations. The patient admits to and/or has been reported to be having homicidal ideations. Status: Patient is not a professional services consultant or dependent. Transition of care: patient was received from a primary care office; Dr Tena. Red Flag criteria, patient assessed and taken directly to a bed. 11:42 Acuity: JENNIFER Level 3 js13 11:42 Method Of Arrival: Walkin/Carried/Asstd js13 Triage Assessment: 11:49 General: Appears in no apparent distress, well developed, well nourished, well groomed, js13 Behavior is appropriate for age, cooperative. 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 . Pain: Denies pain. Pt Declines HIV testing. Neurological: Level of Consciousness is awake, alert. Respiratory: Airway is patent Respiratory effort is even, unlabored, Respiratory pattern is regular, symmetrical. Derm: Skin is pink, warm & dry. SAFETY COORDINATOR: 11:51 Patient states she has not resumed regular menses since of daughter 2 months ago. js13 Patient reports occasional spotting. Historical: - Allergies: No known drug Allergies; - Home Meds: 1. none - PMHx: Anxiety; Depression; SI thoughts; - PSHx: Lumpectomy- Left; - Social history: Smoking status: Patient states was never smoker of tobacco. No barriers to communication noted, The patient speaks fluent Turkmen. - Family history: Not pertinent. - : The pt / caregiver states he / she is not on anticoagulants. Home medication list is obtained from the patient. - Exposure Risk Screening:: None identified. Screenin:50 Screening information is obtained from the patient. Fall risk: No risks identified. js13 Assistance ADL's: requires no assistance with activities of daily living. Abuse/DV Screen: The patient / caregiver reports he/she is: not in a situation that causes fear, pain or injury. Nutritional screening: No deficits noted. Advance Directives: There is no active DNR order. home support is adequate. Assessment: 11:50 General: Appears in no apparent distress, comfortable, Behavior is appropriate for age, js13 cooperative. Pain: Denies pain. Neurological: Level of Consciousness is awake, alert. Respiratory: Airway is patent Respiratory effort is even, unlabored, Respiratory pattern is regular, symmetrical. Derm: Skin is pink, warm & dry. 13:00 General: Appears in no apparent distress, comfortable, Behavior is appropriate for age, js13 cooperative. Neurological: Level of Consciousness is awake, alert. Respiratory: No deficits noted. Derm: Skin is pink, warm & dry. 15:38 General: Appears in no apparent distress, comfortable, Behavior is cooperative. Pain: mcp Location: head Pain currently is 3 out of 10 on a pain scale. Neurological: Level of Consciousness is awake, alert, Oriented to person, place, time, Moves all extremities. Speech is normal, Reports headache. Respiratory: Airway is patent Respiratory effort is even, unlabored. Derm: Skin is pink, warm & dry. Mental Health Eval: 14:53 Status: The patient is not a professional services consultant or dependent. [facility] Behavioral Health: The patient is not an established patient of [facility] Behavioral Health. Referral Information: Evaluation referral is generated by SAFETY COORDINATOR. The patient was referred for evaluation because Pt went to SAFETY COORDINATOR today, states she has been depressed, suicidal with plan to overdose, and also has had thoughts of smothering her 2 month old daughter. Subjective: The patients chief complaint is "I've been depressed since my daughter was born, I. 15:18 Mental Health history: depression, suicide attempt by took overdose as teenager, did ac not receive any treatment Mental Health Admissions: None. Current Outpatient Mental Health Services: None. Current living environment is The patient currently lives with his / her child. with his / her significant other, . Patient presents to Emergency Department with the following symptoms within the past 2 weeks: anxiety, depressed mood, feelings of helplessness/hopelessness, poor concentration, sleep disturbance - erratic suicidal ideation with plan for pills. Patient presents to Emergency Department with the following symptoms within the past 2 weeks: Homicidal ideation toward their 2 month old daughter. Substance abuse: Pt denies. Mental status exam: Patients appearance is appropriate, Patient's behavior is cooperative, Speech is normal. Affect is blunted Mood is depressed. Hallucinations are denied. Appetite is normal. Memory is good. Energy level is normal. Content of thought is normal. Thought process is intact. Cognitive level is oriented to person, place, time and situation Patient's insight is fair. Rapport with interviewer is good. poor. 15:22 Disposition: Medically cleared for disposition by Susie Bonilla MD Psychiatric ac Consult is performed by phone with Dr Sheree Ng. [facility] Admission Criteria: The patient is experiencing suicidal ideation. The patient displays homicidal ideation. The patient requires continuous observation and/or control to protect self, others or property. The patient's care requires a multi-modal treatment plan under close supervision and coordination due to the complexity and severity of the patient's symptoms. The patient requires administration and monitoring of psychoactive medications by skilled medical providers due to the side effects of the psychoactive medications or significant dosage adjustments. Legal Status: Patient's legal status will be Emergency admission: . [place] Safe Act: [place] Safe Act is applicable to this patient. The patient poses a risk to self or other and the Nursing Coding Director has been notified. He/She will enter the patient's data. DSM-V Differential Diagnosis: Unspecified Depressive Disorder (F32.9). Narrative: Pt reports that she is suicidal and homicidal, states that she has been depressed since the of her first child two months ago. PT states she has plan to overdose, thought about smothering her daughter, who she has staying with her biological father. Pt denies VH, states is unsure about hearing voices as opposed to her "conscience" telling her she is a bad mother and she is undeserving. Pt is not able to CFS at this time. Pt denies drug/ETOH abuse. Vital Signs: 11:27 BP 128 / 76; Pulse 75; Resp 16; Temp 98.9; Pulse Ox 100% ; Weight 58.97 kg; Height 5 cmb ft. 2 in. (157.48 cm); Pain 0/10; 15:20 BP 130 / 60; Pulse 72; Resp 16; Temp 98; Pulse Ox 98% ; Pain 3/10; dpm 11:27 Body Mass Index 23.78 (58.97 kg, 157.48 cm) cmb Vitals: 11: Log In Time: April 16, 2016 at 11:24. cmb 11:27 RN notified that patient meets Red Flag criteria. cmb ED Course: 11:[address] cmb 11:27 Haven Cartagena is Private Physician. cmb 11:27 Patient moved to [facility] cmb 11:[address] cmb 11:31 Patient moved to [facility] cmb 11:31 RN notified that patient meets Red Flag criteria. cmb 11:39 Patient visited by Nahum Emmanuel. dpm 11:48 Triage Initiated js13 11:50 The patient / caregiver is instructed regarding the plan of care and ED course. js13 Security observing. 11:50 No IV's were initiated during this patient's visit. No procedures done that require js13 assistance. Labs drawn. (by ED staff). Sent per order to lab. Urine collected. Clean catch specimen. Urine specimen sent to lab. 11:58 Susie Bonilla MD is Attending Physician. sd1 11:58 Patient visited by Susie Bonilla MD. sd1 11:59 Patient visited by Silvano Bowen,WINTER. mb9 12:02 Pt greeted and oriented to ED. Patient advised of names of staff involved in care, dpm location of call julio, wait times and NPO status. Patient has correct armband on for positive identification. Placed in gown. Placed in psych safe attire. Bed in low position. Side rails up X 1. Property removed, inventory done, given to family member, mother. Psych Safety Check: Location: Psych Room. Visual Assessment: Cooperative. 12:15 Patient visited by Nahum Emmanuel. dpm 12:36 Patient visited by Nahum Emmanuel. dpm 12:40 [facility] Payment Agreement was scanned into [email or web address] and attached to record. pm4 12:58 Patient visited by Nahum Emmanuel. dpm 13:05 Patient visited by Jennifer Tellez RN. srm 13:05 Diet: Patient given regular meal. srm 13:19 Patient visited by Nahum Emmanuel. dpm 13:40 Ludin Carrion is Hospitalizing Provider. sd1 13:45 Patient visited by Nahum Emmanuel. dpm 14:01 Patient visited by Nahum Emmanuel. dpm 14:14 Patient visited by Nahum Emmanuel. dpm 14:32 Patient visited by Nahum Emmanuel. dpm 14:47 Patient visited by Nahum Emmanuel. dpm 15:02 Patient visited by Nahum Emmanuel. dpm 15:05 E Legal paperwork was scanned into [email or web address] and attached to record. ac 15:16 Patient visited by Nahum Emmanuel. dpm 15:32 Patient visited by Nahum Emmanuel. dpm 04/17 12:02 T-Sheet-- Draft Copy was scanned into [email or web address] and attached to record. gb Attachments: 15:05 E Legal paperwork ac Order Results: Lab Order: Acetaminophen Level; SPEC'M 04/16/16 11:42 Test: ACETAMINOPHEN LEVEL; Value: < 2.0; Range: 10.0-30.0; Abnormal: Below low normal; Units: UG/ML; Status: F Lab Order: Basic Metabolic Profile; SPEC'M 04/16/16 11:42 Test: GLUCOSE, FASTING; Value: 90; Range: 70-105; Units: MG/DL; Status: F Test: BLOOD UREA NITROGEN; Value: 12; Range: 7-18; Units: MG/DL; Status: F Test: CREATININE FOR GFR; Value: 0.80; Range: 0.55-1.02; Units: MG/DL; Status: F Test: SODIUM LEVEL; Range: 136-145; Units: MEQ/L; Status: I Test: POTASSIUM SERUM; Range: 3.5-5.1; Units: MEQ/L; Status: I Test: CHLORIDE LEVEL; Range: 98-107; Units: MEQ/L; Status: I Test: CARBON DIOXIDE LEVEL; Range: 21-32; Units: MEQ/L; Status: I Test: ANION GAP; Range: 8-16; Units: MEQ/L; Status: I Test: CALCIUM LEVEL; Range: 8.5-10.1; Units: MG/DL; Status: I Test: GLOMERULAR FILTRATION RATE; Value: > 60.0; Range: >60; Status: F Test: SODIUM LEVEL; Value: 144; Range: 136-145; Units: MEQ/L; Status: F Test: POTASSIUM SERUM; Value: 4.4; Range: 3.5-5.1; Units: MEQ/L; Status: F Test: CHLORIDE LEVEL; Value: 109; Range: 98-107; Abnormal: Above high normal; Units: MEQ/L; Status: F Test: CARBON DIOXIDE LEVEL; Value: 25; Range: 21-32; Units: MEQ/L; Status: F Test: ANION GAP; Value: 10; Range: 8-16; Units: MEQ/L; Status: F Test: CALCIUM LEVEL; Value: 9.1; Range: 8.5-10.1; Units: MG/DL; Status: F Test Note: ; Units are mL/min/1.73 m2 Chronic Kidney Disease Staging per NKF: Stage I & II GFR >=60 Normal to Mildly Decreased Stage III GFR 30-59 Moderately Decreased Stage IV GFR 15-29 Severely Decreased Stage V GFR <15 Very Little GFR Left ESRD GFR <15 on SOAKER Lab Order: Complete Blood Count; SPEC'M 04/16/16 11:42 Test: WHITE BLOOD COUNT; Value: 5.4; Range: 4.0-10.0; Units: K/mm3; Status: F Test: RED BLOOD COUNT; Value: 5.03; Range: 4.00-5.40; Units: M/mm3; Status: F Test: HEMOGLOBIN; Value: 15.0; Range: 12.0-16.0; Units: g/dl; Status: F Test: HEMATOCRIT; Value: 44.7; Range: 36.0-47.0; Units: %; Status: F Test: MEAN CORPUSCULAR VOLUME; Value: 89.0; Range: 80.0-96.0; Units: fl; Status: F Test: MEAN CORPUSCULAR HEMOGLOBIN; Value: 29.8; Range: 27.0-33.0; Units: pg; Status: F Test: MEAN CORPUSCULAR HGB CONC; Value: 33.5; Range: 32.0-36.5; Units: g/dl; Status: F Test: RED CELL DISTRIBUTION WIDTH; Value: 13.2; Range: 11.5-14.5; Units: %; Status: F Test: PLATELET COUNT, AUTOMATED; Value: 303; Range: 150-450; Units: k/mm3; Status: F Lab Order: Drug Eval Toxicology ED Only; SPEC'M 04/16/16 11:42 Test: AMPHETAMINES LEVEL URINE; Value: NEGATIVE; Range: NEGATIVE; Status: F Test: BARBITURATES URINE; Value: NEGATIVE; Range: NEGATIVE; Status: F Test: BENZODIAZEPINES URINE; Value: NEGATIVE; Range: NEGATIVE; Status: F Test: CANNABINOIDS URINE; Value: POSITIVE; Range: NEGATIVE; Abnormal: Above high normal; Status: F Test: COCAINE METABOLITE URINE; Value: NEGATIVE; Range: NEGATIVE; Status: F Test: METHADONE URINE; Value: NEGATIVE; Range: NEGATIVE; Status: F Test: OPIATES URINE; Value: NEGATIVE; Range: NEGATIVE; Status: F Test: TRICYCLIC ANTIDEPRESS URINE; Value: NEGATIVE; Range: NEGATIVE; Status: F Test Note: ; FALSE POSITIVE RESULTS CAN BE CAUSED BY THE USE OF PANTOPRAZOLE (PROTONIX). Lab Order: Ethyl Alcohol (ethanol); SPEC'M 04/16/16 11:42 Test: ETHYL ALCOHOL (ETHANOL); Value: < 0.003; Range: 0.000-0.010; Units: %; Status: F Lab Order: HCG,Serum Qualitative; SPEC'M 04/16/16 11:42 Test: HCG, SERUM QUALITATIVE; Value: NEGATIVE; Range: NEGATIVE; Status: F Lab Order: Liver Profile; SPEC'M 04/16/16 11:42 Test: AST/SGOT; Value: 18; Range: 15-37; Units: U/L; Status: F Test: ALT/SGPT; Value: 27; Range: 12-78; Units: U/L; Status: F Test: ALKALINE PHOSPHATASE; Value: 89; Range: 45-117; Units: U/L; Status: F Test: BILIRUBIN,TOTAL; Value: 0.8; Range: 0.2-1.0; Units: MG/DL; Status: F Test: BILIRUBIN,DIRECT; Value: 0.2; Range: 0.0-0.2; Units: MG/DL; Status: F Test: TOTAL PROTEIN; Value: 8.0; Range: 6.4-8.2; Units: GM/DL; Status: F Test: ALBUMIN; Value: 4.0; Range: 3.2-5.2; Units: GM/DL; Status: F Test: ALBUMIN/GLOBULIN RATIO; Value: 1.00; Range: 1.00-1.93; Status: F Lab Order: Salicylate Level; SPEC'M 04/16/16 11:42 Test: SALICYLATE LEVEL; Value: < 1.7; Range: 5.0-30.0; Abnormal: Below low normal; Units: MG/DL; Status: F Lab Order: Thyroid Stimulating Hormone; SPEC'M 04/16/16 11:42 Test: THYROID STIMULATING HORMONE; Value: 0.952; Range: 0.358-3.740; Units: uIU/ML; Status: F Outcome: 04/16 13:40 Decision to Hospitalize by Provider. sd1 15:39 Discharge Assessment: patient administered narcotics - no. The following High Risk [facility] Discharge criteria are identified: None. Admitted to Psych accompanied by tech, via wheelchair, with chart. Condition: stable. No special radiology studies were completed. 15:40 Patient left the ED. [facility] Signatures: Susie Bonilla MD MD sd1 Jennifer Tellez, RN Lillian Aguilar RN Hubert Hendrickson mcp, PSA PSA ac Marilin Haines, Reg Reg gb Micaela DiazRN RN js13 Nahum Emmanuel dpm, Chelsea cmb Belles, Michael,WINTER RN mb9 Will Palafox, Reg Reg pm4 Chart Complete MTDD
--- NOTE | 2016-04-18 16:41 | EDDOCDS ---
Physician Documentation [facility] Name: Mariia Gallegos Age: 21 yrs Sex: Female : 1995 Arrival Date: 04/16/2016 Time: 11:26 Bed BHU1 Private MD: Haven Cartagena K. Disposition: 04/16/16 13:40 Hospitalization ordered by Ludin Carrion for Inpatient Admission. Preliminary diagnosis is Major depressive disorder, single episode. - Bed requested for Admit. - Status is Inpatient Admission. mcp - Condition is Stable. - Problem is an acute exacerbation. - Symptoms are unchanged. Historical: - Allergies: No known drug Allergies; - Home Meds: 1. none - PMHx: Anxiety; Depression; SI thoughts; - PSHx: Lumpectomy- Left; - Social history: Smoking status: Patient states was never smoker of tobacco. No barriers to communication noted, The patient speaks fluent Sierra Leonean. - Family history: Not pertinent. - : The pt / caregiver states he / she is not on anticoagulants. Home medication list is obtained from the patient. - Exposure Risk Screening:: None identified. 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 js13 Patient reports occasional spotting. Vital Signs: 11:27 BP 128 / 76; Pulse 75; Resp 16; Temp 98.9; Pulse Ox 100% ; Weight 58.97 kg / 130.01 cmb lbs; Height 5 ft. 2 in. (157.48 cm); Pain 0/10; 15:20 BP 130 / 60; Pulse 72; Resp 16; Temp 98; Pulse Ox 98% ; Pain 3/10; dpm 11:27 Body Mass Index 23.78 (58.97 kg, 157.48 cm) cmb MDM: 11:32 Consult PFS/PSA/Lithographing Machine Operator ordered. sd1 11:32 Consult PFS/PSA/Lithographing Machine Operator: Patient's case requires discussion with on-call sd1 Psychiatrist ordered. 11:32 PSA/PFS to call Nursing [employer], to enter patient data on [place] Safe Act if patient sd1 involuntarily admitted or transferred for SI or HI ordered. 11:32 Confirm accurate psychiatric medication list and times of last dosage ordered. sd1 11:32 Detain Pt Until Medically/PFS Cleared ordered. sd1 11:33 Acetaminophen Level Ordered. EDMS 11:33 Basic Metabolic Profile Ordered. EDMS 11:33 Complete Blood Count Ordered. EDMS 11:33 Drug Eval Toxicology ED Only Ordered. EDMS 11:33 Ethyl Alcohol (ethanol) Ordered. EDMS 11:33 HCG,Serum Qualitative Ordered. EDMS 11:34 Liver Profile Ordered. EDMS 11:34 Salicylate Level Ordered. EDMS 11:34 Thyroid Stimulating Hormone Ordered. EDMS 12:13 Financial registration complete. pm4 12:34 Drug Eval Toxicology ED Only Reviewed. sd1 12:34 Complete Blood Count Reviewed. sd1 12:34 HCG,Serum Qualitative Reviewed. sd1 12:40 [facility] Payment Agreement was scanned into [employer] and attached to record. pm4 14:28 Consult PFS/PSA/Lithographing Machine Operator complete. srm 14:28 Consult PFS/PSA/Lithographing Machine Operator: Patient's case requires discussion with on-call srm Psychiatrist complete. 14:28 PSA/PFS to call Nursing [employer], to enter patient data on [place] Safe [place] if patient srm involuntarily admitted or transferred for SI or HI complete. 14:34 Admit to IMHU: ordered. EDMS 15:05 MHE Legal paperwork was scanned into [employer] and attached to record. ac 04/17 12:02 T-Sheet-- Draft Copy was scanned into [employer] and attached to record. gb Signatures: Dispatcher [employer] Susie Villa MD MD sd1 Jennifer Tellez, RN RN Lillian Holcomb, RN Hubert Hendrickson mcp, PSA PSA ac Marilin Haines, Reg Reg gb Micaela Diaz,WINTER RN js13 Will Palafox, Reg Reg pm4 The chart was reviewed and I authenticate all verbal orders and agree with the evaluation and treatment provided.Attachments: 04/16 12:40 [facility] Payment Agreement pm4 04/17 12:02 T-Sheet-- Draft Copy gb Chart Complete MTDD
--- NOTE | 2016-04-18 17:42 | IPN ---
DATE: 04/18/2016 VITAL SIGNS: Temperature 96.5, pulse 63, respirations 16, blood pressure 105/48. CURRENT MEDICATION: - Paxil 10 mg in the morning - Risperdal 1 mg at night - trazodone 50 mg at night as needed PSYCHIATRIC HISTORY: The patient tolerated the Paxil poorly, it made her "feel high, like a marijuana high." This happened on both dosages. She just found out that Child Protective Services (CPS) is involved monitoring her situation. She is upset about this, she was crying about it. She did sleep well at night with the Risperdal/trazodone combination. Even though she is upset about Child Protective Services (CPS), she has no intention to harm herself. She has been on multiple psychotropics in the past. We discussed a low dose of citalopram taken at bedtime with her other psychotropics. The patient states the Risperdal did seem to help with the auditory hallucinations; however, when she got a call regarding CPS, she got upset and started hearing the voices again that she was a bad mother, etc. MENTAL STATUS EXAMINATION: The patient is dysphoric. She is upset and tearful. She reports auditory hallucinations. She is not currently homicidal or suicidal, but does seem to have poor frustration tolerance. The patient may have borderline intelligence quotient (IQ), so this should be assessed upon discharge. Insight and judgment appear limited. DIAGNOSES: 1. Major depression, recurrent with likely psychotic features. 2. Anorexia nervosa, in remission. 3. Opiate use disorder. 4. Cannabis use disorder, rule out borderline intellectual functioning. PLAN: Discontinue Paxil. Patient to start citalopram 5 mg at night.
[2016-04-18 18:00] VITALS: BP 119/75
[2016-04-18] MEDS ORDERED: CitaloPRAM (CeleXA) 10 MG TABLET PO SCH (21:00)
[2016-04-18] MEDS: risperiDONE 1 MG TAB PO SCH (21:12)
[2016-04-18] MEDS: traZODone 50 MG TAB PO PRN (21:12)
[2016-04-19 06:00] VITALS: BP 115/55
--- NOTE | 2016-04-19 09:02 | REP ---
Thoracic spine series, three-view exam performed 04/17/2016 Indication:, history of scoliosis Comparison: Thoracic spine series 12/30/2014 Findings: Previously noted there is mild dextroscoliosis within the thoracic spine with apex at T7. Slight diminished vertebral body height on the left at T7 may contribute to the scoliotic deformity. The degree of scoliosis is unchanged/stable. There is no acute fracture or paraspinal widening. The mediastinal silhouette is normal Impression: stable mild dextroscoliosis of the thoracic spine with apex at T7. No acute fracture or paraspinal widening. Signed by Olesya Palencia MD 04/19/2016 08:54 A
[2016-04-19 18:15] VITALS: BP 143/67
[2016-04-19] MEDS ORDERED: CitaloPRAM (CeleXA) 10 MG TABLET PO SCH (21:00)
[2016-04-19] MEDS: risperiDONE 1 MG TAB PO SCH (21:24)
[2016-04-19] MEDS: ACETAMINOPHEN TAB 650MG DOSE (2X325MG) PO PRN (21:24)
[2016-04-19] MEDS: traZODone 100 MG TAB PO PRN (22:30)
--- NOTE | 2016-04-20 06:30 | IPN ---
DATE OF SERVICE: 04/19/2016 VITAL SIGNS: Temperature 99.6, pulse 76, respirations 18, blood pressure 115/55. CURRENT MEDICATION: - Celexa 5 mg nightly - trazodone 50 mg nightly as needed - Risperdal 1 mg by mouth nightly PSYCHIATRIC HISTORY: Patient had some adverse side effects on the Paxil. She felt high on it. It was discontinued. The Celexa, however, was well tolerated. She is agreeable to increase the dosage. Her suicidal ideation is much improved, but she still reports feeling depressed. She has not heard from Child Protective Services (CPS) yet. The neighbor downstairs is watching the infant. Patient feel safe on the unit and has been attending groups in the milieu therapy. She reports the Risperdal has appeared to help her psychotic symptoms and her negative thoughts. MENTAL STATUS EXAMINATION: Patient is still depressed with some dysphoria; however, she is not tearful today. Auditory hallucinations appear to have improved. She is still hearing them, but she is able to ignore them now. Homicidal, suicidal thoughts have improved. Patient does have poor frustration tolerance and might have borderline intelligence quotient (IQ). Insight and judgment appear fair. DIAGNOSES: 1. Major depression, recurrent with possible psychotic features. 2. Anorexia nervosa in remission. 3. Opiate use disorder. 4. Cannabis use disorder. 5. Rule out borderline intellectual functioning. PLAN: Increase Celexa to 10 mg per day. Increase trazodone to 100 mg nightly as needed. Patient informed that this is my last day here at the hospital and she will be seeing another provider.
[2016-04-20 06:38] VITALS: BP 133/69
--- NOTE | 2016-04-20 13:04 | IPN ---
DATE OF SERVICE: 04/20/2016 TREATMENT: The patient is a 21-year-old woman with history of depression, admitted due to worsening depression and suicidal ideation with a plan to take an overdose of Tylenol. She is diagnosed with major depressive disorder and currently prescribed citalopram 10 mg orally at bedtime and risperidone 1 mg orally at bedtime. Today is the fifth day of inpatient hospital admission and she reports still being really depressed and not feeling like engaging in any activity. She has been attending therapeutic programs, but says she currently does not feel like attending anymore. OBSERVATION: VITAL SIGNS: Blood pressure 133/89, pulse 76, respirations 16, temperature 98.7. She is alert, cooperative. Her speech is fluent. Thought process coherent. No delusions or hallucinations. She denies active suicidal or homicidal plans or intent, but does still have occasional fleeting thoughts. No medication-related adverse events. ASSESSMENT: She still has some depressive symptomatology and fleeting suicidal thoughts. PLAN: Celexa will be increased to 20 mg orally daily at bedtime. She will continue to be provided with therapeutic programming. Plan is discussed with the patient and she is in agreement. JENNIFER
[2016-04-20] MEDS: ACETAMINOPHEN TAB 650MG DOSE (2X325MG) PO PRN (16:23)
[2016-04-20 18:00] VITALS: BP 113/58
[2016-04-20] MEDS: CitaloPRAM (CeleXA) 20 MG TAB PO SCH (21:22)
[2016-04-20] MEDS: risperiDONE 1 MG TAB PO SCH (21:22)
[2016-04-20] MEDS: traZODone 100 MG TAB PO PRN (22:16)
[2016-04-21 06:29] VITALS: BP 123/68
[2016-04-21 18:18] VITALS: BP 108/62
[2016-04-21] MEDS: CitaloPRAM (CeleXA) 20 MG TAB PO SCH (21:20)
[2016-04-21] MEDS: traZODone 100 MG TAB PO PRN (21:20)
[2016-04-21] MEDS: risperiDONE 1 MG TAB PO SCH (21:20)
[2016-04-22 05:52] VITALS: BP 126/68
[2016-04-22] MEDS: ACETAMINOPHEN TAB 650MG DOSE (2X325MG) PO PRN (09:10)
[2016-04-22 18:18] VITALS: BP 111/63
--- NOTE | 2016-04-22 18:45 | IPN ---
DATE: 04/22/2016 TREATMENT: This is a seventh day of inpatient admission for this 21-year-old woman with major depressive disorder. She is seen and her treatment is reviewed. CURRENT MEDICATIONS: - citalopram 20 mg orally at bedtime - risperidone 1 mg orally at bedtime She reports that she has been taking her medication and requests that she would want to meet with her [id number] child which had been the focus of homicidal ideations. She states that she would like to hold the child as a way of testing her thoughts to determine if she would still be having same homicidal thoughts. She reports no medication-related untoward effects. OBSERVATION: VITAL SIGNS: Blood pressure 126/68, pulse 75, respirations 18, and temperature 99.4. She is noted to be calm, cooperative, appropriately dressed. Mood is less depressed, although she still reports some depressive symptomatology, stating that she has difficulty falling asleep, occasional loss of appetite, and depressed mood. She denies suicidal or homicidal ideations, and no gross psychotic features currently present. ASSESSMENT: She continues to experience some depressive symptoms and will require further inpatient stabilization. PLAN: She will be continued on the current medications with ongoing assessment and supportive therapy. JENNIFER
[2016-04-22] MEDS: risperiDONE 1 MG TAB PO SCH (21:14)
[2016-04-22] MEDS: CitaloPRAM (CeleXA) 20 MG TAB PO SCH (21:14)
[2016-04-22] MEDS: traZODone 100 MG TAB PO PRN (22:03)
[2016-04-23 06:01] VITALS: BP 120/63
[2016-04-23] MEDS: ACETAMINOPHEN TAB 650MG DOSE (2X325MG) PO PRN (12:04)
--- NOTE | 2016-04-23 16:03 | IPN ---
DATE OF SERVICE: 04/23/2016 TREATMENT: This is the eighth hospital admission day for the patient and she is seen and her current treatment reviewed. CURRENT MEDICATIONS: - Citalopram 20 mg orally at bedtime - risperidone 1 mg orally at bedtime She is also provided with group, individual and milieu therapies. She presents with no major complaints today, but as she continues to be preoccupied with thoughts of staying with her 2-month-old baby and says she wonders if child would be brought around so she can hold her, to ensure that she no longer experiences homicidal ideations towards the baby. She reports doing better, although still continues to report some depressive symptomatology. OBSERVATION: VITAL SIGNS: Blood pressure 120/63, pulse 66, respirations 20, temperature 99.5. She is observed to socialize, but mostly noted to present occasionally with dysphoric mood. She denies currently experiencing command hallucinations. She denies suicidal thoughts, plans, or intents. No medication-related untoward effect. ASSESSMENT: The patient continues to respond to treatment; however, depressive features are still present, although she presently does not appear to be at imminent risk of danger to self or to others. PLAN: Current treatment will be continued for further inpatient stabilization. JENNIFER
[2016-04-23 18:00] VITALS: BP 110/62
[2016-04-23] MEDS: CitaloPRAM (CeleXA) 20 MG TAB PO SCH (21:08)
[2016-04-23] MEDS: risperiDONE 1 MG TAB PO SCH (21:08)
[2016-04-23] MEDS: traZODone 100 MG TAB PO PRN (22:17)
[2016-04-24] MEDS: ACETAMINOPHEN TAB 650MG DOSE (2X325MG) PO PRN (08:05)
[2016-04-24 18:00] VITALS: BP 116/67
--- NOTE | 2016-04-24 19:49 | IPN ---
DATE: 04/24/2016 TREATMENT: Patient is seen and her treatment reveiwed. Today is her ninth day of inpatient admission. She remains on Citalopram 20 mg orally at bedtime and risperidone 1 mg orally at bedtime. She reports today that she has been increasingly doing fine. She slept well overnight. She says that she has been in communication with her family and that her mother had planned to bring her 2-month old daughter to visit and that she would want to gauge herself to see if she still had any homicidal ideation. Meanwhile she denied any current feelings to harm herself or to harm others. No reported medication side effects. OBSERVATION: VITAL SIGNS: Blood pressure 99/56, pulse 83, temperature 93.2, respirations 16. She is observed socializing normally with her peers and engaging in activities. She does not appear to be in any form of distress. She reports significantly less depressed mood. Her affect is noted to be appropriate. She denies active thoughts, plans or intent of suicidal or homicide. ASSESSMENT: The patient is tolerating medication and responding relatively well. She currently does not appear to be an imminent risk of danger to self or others ; however, she still expresses concerns about exposing herself to her baby and not knowing how she would react. PLAN: She will be continued on the current treatment with ongoing review. She will be reassessed in the next 24 to 48 hours, and If she remains stable, will be scheduled for discharge with appropriate follow up plan arranged. JENNIFER
[2016-04-24] MEDS: risperiDONE 1 MG TAB PO SCH (20:59)
[2016-04-24] MEDS: CitaloPRAM (CeleXA) 20 MG TAB PO SCH (20:59)
[2016-04-24] MEDS: traZODone 100 MG TAB PO PRN (21:19)
[2016-04-25 06:00] VITALS: BP 119/72
--- NOTE | 2016-04-25 12:07 | IPN ---
DATE: 04/25/2016 The patient has continued to be prescribed citalopram 20 mg and risperidone 1 mg orally at bedtime. She has been accepting the medication and reports no side effects. She has been attending therapeutic programs, and reports benefiting from the current treatment. No new complaints reported. She states she no longer feels severely depressed, suicidal, or homicidal. OBSERVATION: Vital signs: Blood pressure 119/72, pulse 87, respirations 16, temperature 98.9. She is noted to socialize normally. There are no features suggestive of being a risk of self to others. Her mood is less depressed. Affect is appropriate. No psychotic features evident. She denies suicidal or homicidal thoughts, plan, or intent. ASSESSMENT: Depression: She has continued to tolerate and respond positively to medication and experiencing no notable adverse event. She will be re-evaluated in next 24 hours and discharged if still stable. PLAN: Continue the current treatment. JENNIFER
[2016-04-25 18:00] VITALS: BP 124/87
[2016-04-25] MEDS: CitaloPRAM (CeleXA) 20 MG TAB PO SCH (21:15)
[2016-04-25] MEDS: risperiDONE 1 MG TAB PO SCH (21:16)
[2016-04-25] MEDS: traZODone 100 MG TAB PO PRN (22:40)
[2016-04-26 06:08] VITALS: BP 115/63
[2016-04-26] MEDS ORDERED: RISP1TAB41 PO (10:20)
[2016-04-26] MEDS ORDERED: CELE20TA PO (10:20)
--- NOTE | 2016-04-26 11:04 | MHDS ---
DATE OF ADMISSION: 04/16/2016 DATE OF DISCHARGE: 04/26/2016 HISTORY: This is a 21-year-old woman with history of depression admitted to worsening depression and suicidal ideation with a plan to take an overdose of Tylenol. She is diagnosed with major depressive disorder and prescribed currently citalopram and risperidone. 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 Her depression got worse after the of her daughter. She was having homicidal thoughts about smothering the baby. The patient was easily frustrated when the baby cried. She reported having trouble soothing the baby, which led to homicidal thoughts as well as suicidal ideation. At some point, she thought of taking an overdose of pills. She reported symptoms that include poor appetite, trouble sleeping at night, anxiety and always been on edge, as well as irritability. Lack of motivation was also reported as was her disinterest in taking care of her activities of daily living (ADL). Reported symptoms included poor concentration , low energy level, hopelessness and helplessness. In addition, she reported what seemed to be auditory hallucination at the time of her admission. The said voices she heard were negative and constantly admonishing her and telling her that she was a bad mother. PAST PSYCHIATRIC HISTORY: She has been in and out of treatment for many years. A trial on sertraline was not effective. Wellbutrin made her feel numb. Effexor made her more suicidal. She had never been on Paxil, Celexa or Prozac. She has never been on antipsychotics and never been hospitalized before. 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 She denied any allergy. No arrest history. SUBSTANCE ABUSE: The patient does smoke occasional cannabis and abuse prescription pain medications. For social and family history, please refer to admission history and physical. HOSPITAL COURSE: On admission, she was diagnosed with major depression, recurrent, with possible psychotic features. Her mood was depressed at the time and she continued to endorse auditory hallucination. She was started on a combination of citalopram 10 mg orally daily and risperidone 1 mg orally at bedtime. In addition, she was provided with therapeutic programming including group, individual and activity therapies. She participated actively in her treatment and was compliant with the medications. However, she continued to endorse depressive symptoms, auditory hallucination and suicidal ideation. Her Celexa was subsequently increased to 20 mg orally daily. The patient tolerated increased dose as well as the risperidone 1 mg. She continued to be compliant with her medication as well as therapeutic programming. She began to improve notably with subsequent report of absence of suicidal or homicidal ideations. No medication related adverse events were noted. Her mood improved significantly. MENTAL STATUS EXAMINATION: She was noted to be alert, calm and cooperative. Her speech was is fluent, prosodic. Thought process is coherent and goal directed. No evidence of delusions or hallucination. Her mood is currently not depressed or elated. Affect is appropriate. She denies suicidal thoughts, plan or intent , as well as homicidal ideation. ASSESSMENT ON DISCHARGE: Patient has improved appreciably and has met treatment stability. She currently does not appear to be an imminent risk of danger to herself or to others. PLAN: Patient discharged today with appropriate followup plan arrangements. DISCHARGE DIAGNOSIS: Major depressive disorder, recurrent. DISCHARGE MEDICATIONS: - citalopram 20 mg orally daily - risperidone1 mg orally at bedtime Discharge plan is discussed with the patient and she demonstrates understanding and is in agreement with plan. JENNIFER
[2016-04-26] MEDS: ACETAMINOPHEN TAB 650MG DOSE (2X325MG) PO PRN (14:00)
--- NOTE | 2016-04-26 15:48 | IPN ---
DATE: 04/26/2016 Mariia is a 21-year-old woman with a history of depression, admitted due to worsening depression and suicidal ideation with the plan to take an overdose of Tylenol. She was, on admission, diagnosed with major depressive disorder and prescribed citalopram and risperidone. She was noted to have improved appreciably on her treatment and was scheduled for discharge today. The patient was seen and reassessed and noted to be stable and agreed to the discharge plan. Discharge summary was completed; however, her mother visited and following a meeting with staff and her mother, the patient began to express suicidal ideation stating that she was not comfortable going home as she might harm herself. As a result of her current expression of suicidal thoughts, the discharge for today is being canceled. The current inpatient treatment will be continued. The patient will be reassessed ongoing. Once she is deemed stable and no longer expressing thoughts, plan or intent of suicide or homicide, she will be scheduled for discharge. JENNIFER
[2016-04-26 18:00] VITALS: BP 122/60
[2016-04-26] MEDS: risperiDONE 1 MG TAB PO SCH (21:15)
[2016-04-26] MEDS: CitaloPRAM (CeleXA) 20 MG TAB PO SCH (21:15)
[2016-04-26] MEDS: traZODone 100 MG TAB PO PRN (22:49)
[2016-04-27 06:01] VITALS: BP 121/74
[2016-04-27] MEDS: hydrOXYzine 25 MG TAB PO PRN (17:31)
[2016-04-27 18:00] VITALS: BP 118/75
[2016-04-27] MEDS: CitaloPRAM (CeleXA) 20 MG TAB PO SCH (21:04)
[2016-04-27] MEDS: risperiDONE 1 MG TAB PO SCH (21:05)
[2016-04-27] MEDS: traZODone 100 MG TAB PO PRN (21:47)
[2016-04-28 06:11] VITALS: BP 100/58
[2016-04-28] MEDS: ACETAMINOPHEN TAB 650MG DOSE (2X325MG) PO PRN ×2 (09:21→16:15)
[2016-04-28] MEDS: hydrOXYzine 25 MG TAB PO PRN ×2 (10:01→18:08)
[2016-04-28 18:00] VITALS: BP 102/54
[2016-04-28] MEDS: CitaloPRAM (CeleXA) 20 MG TAB PO SCH (20:21)
[2016-04-28] MEDS: risperiDONE 1 MG TAB PO SCH (20:21)
[2016-04-28] MEDS: traZODone 100 MG TAB PO PRN (20:55)
[2016-04-29 06:22] VITALS: BP 122/66
[2016-04-29] MEDS: hydrOXYzine 25 MG TAB PO PRN ×3 (08:00→20:28)
[2016-04-29 18:00] VITALS: BP 126/72
--- NOTE | 2016-04-29 18:55 | IPN ---
DATE: 04/29/2016 MEDICATIONS: - Celexa 10 mg by mouth every morning - Risperdal 0.5 mg by mouth nightly - trazodone 100 mg by mouth nightly as needed for insomnia - Vistaril 25 mg by mouth nightly Patient was admitted on 04/16/2016 for evaluation of depression. The patient stated she was having homicidal thoughts about smothering her baby, said was easily frustrated when the baby cries, said had trouble soothing the baby which led to homicidal thoughts. Was thinking about taking an overdose. Was having problems with sleep and appetite and going to . Patient also was having auditory hallucinations and thoughts of negative comment. SUBJECTIVE: Patient reports feeling very depressed, having suicidal thoughts, says that her medication is not working, and she is unable to contract for safety. Patient went through court on last Friday and it was decided that her boyfriend will take custody of the baby so she cannot return to live with them. OBJECTIVE: Patient is severely depressed with psychomotor retardation, sad facial expression, and suicidal. No psychotic symptoms observed. MENTAL STATUS EXAMINATION: Patient is dressed in [facility]. Speech is slow and monotone. Mood is depressed and anxious. Affect is restricted. No delusions or hallucinations. Memory is fair. Patient is fully oriented. Associations are intact. Patient reports suicidal ideation. Insight and judgment are limited. ASSESSMENT: 1. Major depression, recurrent, with psychotic features. PLAN: 1. Decrease Celexa to 10 mg by mouth every morning. 2. Start Effexor XR 37.5 mg by mouth every morning. 3. Decrease Risperdal to 0.5 mg by mouth nightly. 4. Start Trileptal 75 mg by mouth twice a day. 5. Continue with trazodone 100 mg by mouth nightly as needed for insomnia. 6. Continue with Vistaril 25 mg by mouth every 6 hours. 7. Continue with individual and group therapy and medication management.
[2016-04-29] MEDS: risperiDONE 0.5 MG TAB PO SCH (20:27)
[2016-04-29] MEDS: OXcarbazepine 150 MG TAB PO SCH (20:28)
[2016-04-29] MEDS: traZODone 100 MG TAB PO PRN (21:11)
[2016-04-30 06:25] VITALS: BP 107/52
[2016-04-30] MEDS: CitaloPRAM (CeleXA) 10 MG TABLET PO SCH (07:59)
[2016-04-30] MEDS: OXcarbazepine 150 MG TAB PO SCH ×2 (07:59→20:11)
[2016-04-30] MEDS ORDERED: VENLAFAXINE **XR** 37.5 MG CAPSULE PO SCH (09:00)
[2016-04-30] MEDS: hydrOXYzine 25 MG TAB PO PRN ×2 (14:54→21:24)
[2016-04-30 18:00] VITALS: BP 121/70
--- NOTE | 2016-04-30 18:33 | IPN ---
DATE: 04/30/2016 MEDICATIONS: - Celexa 10 mg by mouth every morning - Risperdal 0.5 mg by mouth - Trileptal 75 mg by mouth twice a day - trazodone 100 mg by mouth nightly as needed for insomnia - Vistaril 25 mg by mouth every 6 hours - Effexor 37.5 mg by mouth every morning SUBJECTIVE: "I could sleep a little better but no more than 4 hours." Patient continues feeling depressed. OBJECTIVE: Patient is anxious, labile, depressed with intermittent suicidal ideation and psychomotor retardation, sad, restricted facial expression. MENTAL STATUS EXAMINATION: He is dressed in [facility]. Speech is low and monotone. Patient continues to feel depressed. Continues to be anxious. Affect is restricted. Memory is fair. She is fully oriented. Memory is intact. No delusions or hallucinations. Continues to have intermittent suicidal thoughts. ASSESSMENT: 1. Major depression, recurrent, with psychotic features. PLAN: 1. Continue with Celexa to 10 mg by mouth every morning. 2. Increase Effexor XR to 75 mg by mouth every morning. 3. Continue with Risperdal 0.5 mg by mouth nightly. 4. Increase Trileptal 250 mg by mouth twice a day. 5. Continue with trazodone 100 mg by mouth nightly as needed for insomnia. 6. Continue with Vistaril as needed for anxiety. 7. Continue with individual and group therapy. MTDD
[2016-04-30] MEDS: risperiDONE 0.5 MG TAB PO SCH (20:11)
[2016-04-30] MEDS: traZODone 100 MG TAB PO PRN (21:23)
[2016-04-30] MEDS: QUEtiapine FUMARATE 12.5 MG HALF-TAB PO SCH (21:24)
[2016-05-01 06:29] VITALS: BP 114/59
[2016-05-01] MEDS: CitaloPRAM (CeleXA) 10 MG TABLET PO SCH (08:11)
[2016-05-01] MEDS: OXcarbazepine 150 MG TAB PO SCH ×2 (08:11→20:15)
[2016-05-01] MEDS: VENLAFAXINE **XR** 75MG CAPSULE PO SCH (08:11)
[2016-05-01] MEDS: QUEtiapine FUMARATE 12.5 MG HALF-TAB PO SCH ×3 (09:18→20:15)
--- NOTE | 2016-05-01 16:08 | IPN ---
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 Her depression got worse after the of her daughter. She stated was having homicidal thoughts about smothering the baby. Stated that she had trouble soothing the baby, which led to homicidal thoughts as well as suicidal thoughts. She was very depressed with poor appetite. She reported auditory hallucinations and thoughts or voices with negative content. MEDICATIONS: - Celexa 10 mg by mouth every morning - Risperdal 0.5 mg by mouth at bedtime - Trileptal 75 mg by mouth twice a day - trazodone 100 mg by mouth at bedtime as needed for insomnia - Vistaril 25 mg every 6 hours as needed for anxiety - Effexor 75 mg by mouth at bedtime - Seroquel 12.5 mg by mouth three times a day was started because of high anxiety SUBJECTIVE: Patient was very anxious and was requesting medication for anxiety. OBJECTIVE: Patient continues anxious and labile. Reports intermittent suicidal thoughts. Continues with psychomotor retardation. Restricted facial expression. Patient is tolerating well the medication. MENTAL STATUS EXAMINATION: Patient dressed in [facility]. Speech is soft and monotone. Continues to feel depressed and having intermittent suicidal thoughts. Affect is restricted. Memory is fair. Patient is fully oriented and memory is intact. No delusions or hallucinations. Continues improving slowly. ASSESSMENT: Major depression, recurrent, with psychotic features. PLAN: 1. Continue with Celexa 10 mg by mouth every morning. 2. Effexor XR 75 mg by mouth every morning. 3. Risperdal 0.5 mg by mouth at bedtime. 4. Trileptal 150 mg by mouth twice a day. 5. Trazodone 100 mg by mouth at bedtime. 6. Vistaril 50 mg by mouth at bedtime as needed for anxiety. 7. Seroquel 12.5 mg by mouth twice a day. 8. Continue with individual and group therapy.
[2016-05-01 18:00] VITALS: BP 124/70
[2016-05-01] MEDS: risperiDONE 0.5 MG TAB PO SCH (20:15)
[2016-05-01] MEDS: traZODone 100 MG TAB PO PRN (21:15)
[2016-05-02 06:36] VITALS: BP 96/59
[2016-05-02] MEDS: VENLAFAXINE **XR** 75MG CAPSULE PO SCH (08:27)
[2016-05-02] MEDS: CitaloPRAM (CeleXA) 10 MG TABLET PO SCH (08:27)
[2016-05-02] MEDS: OXcarbazepine 150 MG TAB PO SCH ×2 (08:27→20:03)
[2016-05-02] MEDS: QUEtiapine FUMARATE 12.5 MG HALF-TAB PO SCH ×3 (08:27→20:02)
[2016-05-02] MEDS: hydrOXYzine 25 MG TAB PO PRN ×2 (13:27→20:19)
--- NOTE | 2016-05-02 14:42 | IPN ---
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 Her depression worsened after the of her daughter. She stated she was having homicidal thoughts about smothering the baby. She stated that she had trouble soothing the baby which led to homicidal and suicidal thoughts. She was very depressed with poor appetite. She reported auditory hallucinations and was hearing voices and reported negative thoughts. MEDICATIONS: - Celexa 10 mg by mouth every morning - Risperdal 0.5 mg by mouth nightly - Trileptal 75 mg by mouth twice a day - trazodone 100 mg by mouth nightly - Vistaril 25 mg every 6 hours as needed for anxiety - Effexor XR 75 mg by mouth every morning - Seroquel 12.5 mg by mouth twice a day SUBJECTIVE: "I could not sleep last night. I feel a little better and less anxious." OBJECTIVE: Patient is improving slowly but is still quite depressed and reports frequent mood swings and anxiety, although says that the Seroquel 12.5 mg three times a day has been helpful. Denies any side effect from the medication. MENTAL STATUS EXAMINATION: Patient is dressed in [facility]. Patient is cooperative during exam. Has fair eye contact. Speech is slow and monotone. Mood is depressed and anxious, but somewhat improving. Affect is congruent with mood. No delusions or hallucinations. Memory, attention, and concentration are fair. Patient reports intermittent suicidal thoughts but says that they are improving. Insight and judgment is limited. ASSESSMENT: 1. Major depression, recurrent, with psychotic features. PLAN: 1. Continue with Celexa 10 mg by mouth every morning. 2. Continue with Effexor XR 75 mg by mouth every morning. 3. Continue with Trileptal 150 mg by mouth twice a day. 4. Increase trazodone to 150 mg by mouth nightly. 5. Continue with Vistaril 50 mg as needed. 6. Continue with Seroquel 12.5 mg by mouth twice a day. 7. Continue with medication management and individual and group therapy. 8. Discontinue Risperdal.
[2016-05-02 18:00] VITALS: BP 105/61
[2016-05-02] MEDS: traZODone 50 MG TAB PO SCH (20:03)
[2016-05-03 06:31] VITALS: BP 116/68
[2016-05-03] MEDS: CitaloPRAM (CeleXA) 10 MG TABLET PO SCH (08:21)
[2016-05-03] MEDS: QUEtiapine FUMARATE 12.5 MG HALF-TAB PO SCH ×3 (08:21→20:14)
[2016-05-03] MEDS: VENLAFAXINE **XR** 75MG CAPSULE PO SCH (08:21)
[2016-05-03] MEDS: OXcarbazepine 150 MG TAB PO SCH ×2 (08:21→20:14)
[2016-05-03] MEDS: hydrOXYzine 25 MG TAB PO PRN (13:15)
--- NOTE | 2016-05-03 17:06 | IPN ---
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 Her depression worsened after the of her daughter. She stated that she was having homicidal thoughts about smothering the baby. She stated that she had trouble soothing the baby, which led to homicidal and suicidal thoughts. She was very depressed with poor appetite. She reported auditory hallucinations and negative thoughts. MEDICATIONS: - Celexa 10 mg by mouth every morning - Trileptal 75 mg by mouth twice a day - trazodone 100 mg by mouth at bedtime - Effexor XR 75 mg by mouth every morning - Seroquel 12.5 mg by mouth twice a day SUBJECTIVE: Patient reports some improvement, although states that her mood fluctuates throughout the day and at times gets very anxious. Reports intermittent suicidal thoughts, but they have been decreasing with the current treatment. Denies side effects. OBJECTIVE: Patient is improving slowly but still depressed with mood swings and anxiety. Tolerates well the medication. Patient is motivated for treatment. No behavioral disturbances. Interacts well with other patients. MENTAL STATUS EXAMINATION: Patient dressed in [facility]. Patient is cooperative. Fair eye contact. Speech is slow and monotone. Mood is depressed and anxious but improving. Affect is somewhat labile but also improving. No delusions or hallucinations. Memory is intact. Patient is fully oriented. Associations are intact. Thinking is logical. Thought content is appointment. Patient is able to contract for safety while in the unit. Insight and judgment are limited. ASSESSMENT: Major depression, recurrent with psychotic features. PLAN: 1. Decrease Celexa to 5 mg by mouth every morning. 2. Continue with trazodone 150 mg by mouth at bedtime. 3. Effexor XR 75 mg by mouth every morning. 4. Trileptal 150 mg by mouth twice a day. 5. Seroquel 12.5 mg by mouth three times a day. 6. Continue with medication management, individual and group therapy.
[2016-05-03] MEDS: ACETAMINOPHEN TAB 650MG DOSE (2X325MG) PO PRN (18:54)
[2016-05-03] MEDS: traZODone 50 MG TAB PO SCH (21:05)
[2016-05-03] MEDS: BACITRACIN OINT 30GM TOP SCH (21:56)
[2016-05-04 06:39] VITALS: BP 142/72
[2016-05-04] MEDS: BACITRACIN OINT 30GM TOP SCH ×2 (08:03→22:10)
[2016-05-04] MEDS: OXcarbazepine 150 MG TAB PO SCH ×2 (08:04→20:44)
[2016-05-04] MEDS: QUEtiapine FUMARATE 12.5 MG HALF-TAB PO SCH ×3 (08:04→20:44)
[2016-05-04] MEDS: VENLAFAXINE **XR** 75MG CAPSULE PO SCH (08:04)
[2016-05-04] MEDS: CitaloPRAM (CeleXA) 10 MG TABLET PO SCH (08:04)
[2016-05-04] MEDS: ACETAMINOPHEN TAB 650MG DOSE (2X325MG) PO PRN (09:19)
--- NOTE | 2016-05-04 14:10 | IPN ---
DATE OF SERVICE: 05/03/2016 A 21-year-old female on the inpatient mental health unit. She had a complaint of a callus about the size of a dime on the base of her great right toe. It was dry and scaly. She picked at it and has removed it. Now, it is slightly open and sore. No redness or drainage. No swelling. Pedal pulses palpable. Capillary refill of the great toe is less than 2 seconds. Full range of motion. IMPRESSION AND PLAN: Slightly opened area, base of great right toe, approximately the size of a dime. No redness or drainage. Slightly open from callus removal. PLAN: Bacitracin and Telfa dressing twice a day. Monitor for infection.
[2016-05-04] MEDS: hydrOXYzine 25 MG TAB PO PRN ×2 (14:11→20:11)
[2016-05-04 18:00] VITALS: BP 117/57
[2016-05-04] MEDS: traZODone 50 MG TAB PO SCH (22:10)
[2016-05-05 06:00] VITALS: BP 129/67
[2016-05-05] MEDS: QUEtiapine FUMARATE 12.5 MG HALF-TAB PO SCH ×3 (08:20→20:27)
[2016-05-05] MEDS: BACITRACIN OINT 30GM TOP SCH ×2 (08:20→20:27)
[2016-05-05] MEDS: VENLAFAXINE **XR** 75MG CAPSULE PO SCH (08:20)
[2016-05-05] MEDS: CitaloPRAM (CeleXA) 10 MG TABLET PO SCH (08:20)
[2016-05-05] MEDS: OXcarbazepine 150 MG TAB PO SCH ×2 (08:20→20:27)
[2016-05-05] MEDS: hydrOXYzine 25 MG TAB PO PRN ×3 (08:20→20:26)
[2016-05-05 18:00] VITALS: BP 109/58
[2016-05-05] MEDS: traZODone 50 MG TAB PO SCH (20:27)
[2016-05-06 06:32] VITALS: BP 113/58
[2016-05-06] MEDS: BACITRACIN OINT 30GM TOP SCH ×2 (08:35→20:24)
[2016-05-06] MEDS: CitaloPRAM (CeleXA) 10 MG TABLET PO SCH (08:35)
[2016-05-06] MEDS: OXcarbazepine 150 MG TAB PO SCH ×2 (08:35→20:26)
[2016-05-06] MEDS: VENLAFAXINE **XR** 75MG CAPSULE PO SCH (08:35)
[2016-05-06] MEDS: QUEtiapine FUMARATE 12.5 MG HALF-TAB PO SCH ×3 (08:35→20:26)
[2016-05-06] MEDS: ACETAMINOPHEN TAB 650MG DOSE (2X325MG) PO PRN ×2 (14:12→20:27)
[2016-05-06] MEDS: hydrOXYzine 25 MG TAB PO PRN (14:39)
[2016-05-06 18:00] VITALS: BP 104/52
--- NOTE | 2016-05-06 19:10 | IPN ---
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 Her depression worsened after the of her daughter. She stated that she was having homicidal thoughts about smothering the baby. She stated that she had trouble soothing the baby which led to homicidal and suicidal thoughts. She was very depressed with poor appetite. She reported auditory hallucinations and negative thoughts. MEDICATIONS: - Celexa 5 mg by mouth every morning - Trileptal 150 mg by mouth twice a day - trazodone 100 mg by mouth at bedtime - Effexor XR 75 mg by mouth every morning - Seroquel 12.5 mg by mouth twice a day SUBJECTIVE: "I am feeling much better." OBJECTIVE: The patient reports improvement; however, nursing staff said that she had been having some suicidal gestures throughout the weekend, mostly superficial scratches and writing negative adjectives to her forearm. The patient appears to be motivated for treatment. Denies side effect from the medications. MENTAL STATUS EXAMINATION: The patient is dressed in [facility]. The patient is cooperative. Has fair eye contact. Speech is normal in great volume articulation. The patient is depressed and anxious, but is significantly improved from five days ago. Affect is somewhat labile but improving. No delusions or hallucinations. Memory fair. The patient is fully oriented. Associations are intact. Thinking is logical. Thought content is appropriate. The patient is able to contract for safety during the interview. Insight and judgment are improving. ASSESSMENT: Major depressive disorder, recurrent with psychotic features. PLAN: 1. Discontinue Celexa. 2. Continue with trazodone 150 mg by mouth at bedtime. 3. Continue Effexor XR 75 mg by mouth every morning. 4. Continue Trileptal 150 mg by mouth twice a day. 5. Continue Seroquel 12.5 mg by mouth three times a day. 6. Continue medication management, individual and group therapy.
[2016-05-06] MEDS: traZODone 50 MG TAB PO SCH (21:00)
[2016-05-07 06:22] VITALS: BP 111/66
[2016-05-07] MEDS: VENLAFAXINE **XR** 75MG CAPSULE PO SCH (08:32)
[2016-05-07] MEDS: QUEtiapine FUMARATE 12.5 MG HALF-TAB PO SCH (08:32)
[2016-05-07] MEDS: hydrOXYzine 25 MG TAB PO PRN (08:32)
[2016-05-07] MEDS: OXcarbazepine 150 MG TAB PO SCH (08:32)
[2016-05-07] MEDS: BACITRACIN OINT 30GM TOP SCH (08:33)
[2016-05-07] MEDS ORDERED: VENL75CA PO (09:03)
[2016-05-07] MEDS ORDERED: TRAZO50TA PO (09:03)
[2016-05-07] MEDS ORDERED: QUET1TAB7 PO (09:03)
[2016-05-07] MEDS ORDERED: OXCA150T PO (09:03)
[2016-05-07] MEDS: ACETAMINOPHEN TAB 650MG DOSE (2X325MG) PO PRN (10:18)
--- NOTE | 2016-05-07 17:38 | DSES ---
DATE OF ADMISSION: 04/16/2016 DATE OF DISCHARGE: 05/07/2016 LEGAL STATUS AT ADMISSION: 9.39 legal status. HISTORY OF PRESENT ILLNESS: The following information is according to the initial evaluation of Dr. Carrion, his progress note, and my own progress note. On 04/16/2016, Dr. Carrion wrote this is a 21-year-old white female living with her boyfriend, Jeremy, and 2-month-old daughter. The patient states that she has a longstanding history of depression dating back to shoder filler, but officially diagnosed in the eighth grade. Her depression got worse after the of her daughter. She is having homicidal thoughts about smothering the baby. The patient is easily frustrated when the baby cries. The patient has trouble soothing the baby which leads to homicidal thoughts as well as suicidal thoughts. The patient has thoughts of taking an overdose. The patient states that her appetite is poor. She has trouble sleeping at night. She is always anxious. She is on edge. She is irritable. She is apathetic with lack of motivation. She has little interest in activities of daily living. Concentration is poor. Level of energy is low with little pleasure out of life. She feels helpless and hopeless. The patient reports possibly auditory hallucinations. These are voices with negative content. They are quite critical, telling her that she is a bad mother. She has heard these for many years off-and-on. LABORATORY DATA ON ADMISSION: Her CBC was within normal limits. CMP was unremarkable. TSH within normal limits. HCG negative. Urine drug screen was positive for cannabis and blood alcohol level was negative. HOSPITAL COURSE: After admission, Dr. Carrion started the patient on Celexa that was increased up to 20 mg by mouth daily and also Risperdal 1 mg by mouth at bedtime. She was somewhat improving but after the court decided to emiliano custody of the baby to her boyfriend and also issued an order of protection against the patient so she could not live with her boyfriend or the baby, she became very distressed, depressed, anxious, labile, and suicidal. The patient was making statements such as "the medication is not working at all," so a review of the medication was made. She was then started on a low dosage of Effexor XR that was increased up to 75 mg by mouth daily, Trileptal 75 mg by mouth twice a day that was increased up to 150 mg by mouth twice a day, trazodone for her insomnia that was increased up to 150 mg by mouth at bedtime to be effective, and Seroquel 12.5 mg by mouth four times a day to help with her emotional roller coaster mood swings and anxiety. This last medication was quite effective by patient report. After a few days with this medication, the patient started to improve and she was able to participate in all psychotherapeutic activities. She was intermittently complaining of suicidal thoughts and at times was scratching herself superficially. She had to be helped finding a place to stay and finally she talked with one of her friends that she is willing to help the patient, so she will be living with her. The patient had no complications during this hospital admission. The patient denied side effect from current medications. At the moment of discharge, the patient is stable condition. The patient reports that she has intermittent suicidal thoughts but says that she has been having these thoughts since she was a child and that right now they are not worse nor more frequent than they were before and says that she is able to cope with them and is able to block them out, so she is joe for safety. She would like to be discharged and continue her treatment as outpatient. At this point, the patient does not meet criteria for inpatient hospitalization and is discharged in stable condition. The patient is denying suicidal or homicidal ideation at the moment of the interview before discharge. No evidence of psychotic symptoms. No auditory or visual hallucinations were noted. As far as the auditory hallucinations, she corrected herself and said that they were not really auditory hallucinations but strong thoughts, that they are very negative and they present to her, and when this negative thinking is present, she becomes suicidal at times. She was not having these symptoms at the moment of discharge. MENTAL STATUS EXAMINATION ON DISCHARGE: The patient is dressed in casual clothes. The patient is cooperative. Speech is clear and coherent with normal rate and is spontaneous. The patient has good eye contact. Mood is slightly anxious and depressed but significantly improved from admission. Affect is appropriate and congruent with mood. The patient is oriented to time, place, person and situation. Maintains attention and concentration correctly. Instant recall, recent and remote memory are intact. Thought processes are coherent, logical and goal-directed. The patient does not have auditory or visual hallucinations. The patient does not have paranoid, persecutory, somatic, grandiose or restorationism delusions. The patient is denying suicidal or homicidal ideation. Insight and judgment is fair. DIAGNOSES: AXIS I: Major depressive disorder, recurrent. Polysubstance abuse by history. Anorexia nervosa, in remission. AXIS II: Deferred. 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 INSTRUCTIONS TO THE PATIENT: The patient is to continue taking her medications as prescribed and followup appointments. She is advised absolute sobriety from drugs and alcohol. The patient has a scheduled appointment for psychotropic medication management, individual psychotherapy, and primary care provider as outpatient.
[2016-05-08] MEDS ORDERED: OXCA150T PO (21:37)
[2016-05-08] MEDS ORDERED: QUET1TAB7 PO (21:37)
[2016-05-08] MEDS ORDERED: TRAZ150T14 PO (21:37)
[2016-05-08] MEDS ORDERED: EFFE75CA75 PO (21:37)
== END 2016-05-07 12:50 | disposition home or self-care (01) | DRG 751 ==
LOC: M ED 11:26 → M PSY 15:44
PROVIDERS: ADMIT Psychiatry & Neurology Psychiatry; ATTEND Psychiatry & Neurology Psychiatry
DX: F33.9 Major depressive disorder, recurrent, unspecified (principal); M54.5 Low back pain

== ENCOUNTER 2016-05-08 19:24 | Inpatient (IN) | payer MEDICAID ==
[~2016-05-08] VITALS: Ht 157.5 cm; Wt 65.8 kg
[~2016-05-08 19:24] MED LIST changes: +CELE20TA PO; +OXCA150T PO; +QUET1TAB7 PO; +RISP1TAB41 PO; +TRAZO50TA PO; +VENL75CA PO
[2016-05-08 20:09] LABS: MEAN CORPUSCULAR HEMOGLOBIN 29.1 pg (27.0-33.0); MEAN CORPUSCULAR HGB CONC 33.1 g/dl (32.0-36.5); MEAN CORPUSCULAR VOLUME 87.9 fl (80.0-96.0); RED CELL DISTRIBUTION WIDTH 14.2 % (11.5-14.5); WHITE BLOOD COUNT 8.7 K/mm3 (4.0-10.0)
[2016-05-08 20:22] LABS: CONTROL LINE INT CTR LINE PRESENT; CONTROL LINE HCG INT CTR LINE PRESENT; METHADONE URINE NEGATIVE (NEGATIVE); TRICYCLIC ANTIDEPRESS URINE NEGATIVE (NEGATIVE)
[2016-05-08 20:37] LABS: ALBUMIN/GLOBULIN RATIO 1.18 (1.00-1.93); ALKALINE PHOSPHATASE 94 U/L (45-117); ALT/SGPT 29 U/L (12-78); ANION GAP 10 MEQ/L (8-16); AST/SGOT 17 U/L (15-37); BILIRUBIN,DIRECT 0.1 MG/DL (0.0-0.2); BILIRUBIN,TOTAL 0.7 MG/DL (0.2-1.0); BLOOD UREA NITROGEN 13 MG/DL (7-18); CARBON DIOXIDE LEVEL 22 MEQ/L (21-32); CHLORIDE LEVEL 109 MEQ/L (98-107); CREATININE FOR GFR 0.81 MG/DL (0.55-1.02); GLOMERULAR FILTRATION RATE > 60.0 (>60); GLUCOSE, FASTING 82 MG/DL (70-105); POTASSIUM SERUM 3.8 MEQ/L (3.5-5.1); SODIUM LEVEL 141 MEQ/L (136-145); TOTAL PROTEIN 7.4 GM/DL (6.4-8.2)
[2016-05-08] MEDS ORDERED: EFFE75CA75 PO (21:37)
[2016-05-08] MEDS ORDERED: TRAZ150T14 PO (21:37)
[2016-05-08] MEDS ORDERED: OXCA150T PO (21:37)
[2016-05-08] MEDS ORDERED: QUET1TAB7 PO (21:37)
[2016-05-08] MEDS ORDERED: MOM 30ML SUSPENSION UDC PO PRN (22:15)
[2016-05-08] MEDS ORDERED: MAALOX 30 ML SUSP *UDC PO PRN (22:15)
--- NOTE | 2016-05-08 22:59 | EDDOCDS ---
Nurse's Notes [facility] Name: Mariia Gallegos Age: 21 yrs Sex: Female : 1995 Arrival Date: 05/08/2016 Time: 19:[address] MD: No Pcp Diagnosis: Major depressive disorder, recurrent, moderate;Suicidal ideations Presentation: 05/08 19:26 Presenting complaint: Patient states: having thoughts of wanting to kill myself rs3 overdosing on meds. Was discharged from [facility] yesterday. Mental Health Triage Level: Level 2: The patient displays active suicidal ideations. Adult Sepsis Screening: The patient does not have new or worsening altered mentation. Patient's respiratory rate is less than 22. Systolic blood pressure is greater than 100. Patient has a qSOFA score of 0- Negative Sepsis Screen. Mental Health Triage Level: Level 2: The patient displays active suicidal ideations. Suicide/Homicide risk assessment- The patient admits to and/or has been reported to be having suicidal ideations. The patient reports that he/she has been admitted to an inpatient mental health facility in the last 30 days. The patient reports that he/she does not have a recent or current history of substance abuse. The patient reports that he/she has a prior history of suicide attempt and/or organized plan. The patient reports that he/she has experienced a significant life altering event in the last 30 days. Status: Patient is not a employee services manager or dependent. Transition of care: patient was not received from another setting of care. 19:26 Acuity: JENNIFER Level 3 rs3 19:26 Method Of Arrival: Walkin/Carried/Asstd rs3 Triage Assessment: 19:31 General: Appears in no apparent distress. Pain: Denies pain. HIV screening NA for this rs3 visit Offered previously. HAND STAPLER: 19:31 LMP 04/28/2016 rs3 Historical: - Allergies: no known allergies; - Home Meds: 1. Effexor XR 75 mg Oral cp24 1 cap once daily 2. quetiapine 25 mg oral tab 1 tab 3 times per day 3. oxcarbazepine 150 mg oral tab 2 times per day 4. trazodone 150 mg oral Tb24 1 tab once daily - PMHx: Anxiety; SI thoughts; Depression; - PSHx: Lumpectomy- Left; - The history from nurses notes was reviewed: and I agree with what is documented. - Social history: Smoking status: Patient uses tobacco products, light tobacco smoker. No barriers to communication noted, The patient speaks fluent Colombian. - Family history: Not pertinent. - : The pt / caregiver states he / she is not on anticoagulants. Home medication list is obtained from the patient. - Exposure Risk Screening:: None identified. - Immunization history:: All immunizations up-to-date. - Social history:: the patient is a non-smoker, the patient does not drink alcohol. Screenin:45 Screening information is obtained from the patient. Fall risk: No risks identified. tm5 Assistance ADL's: requires no assistance with activities of daily living. Abuse/DV Screen: The patient / caregiver reports he/she is: not in a situation that causes fear, pain or injury. Nutritional screening: No deficits noted. Advance Directives: There is no active DNR order. home support is adequate. Assessment: 19:45 General: Appears distressed, unkempt, Behavior is cooperative, crying. Pain: Denies tm5 pain. Neurological: Level of Consciousness is awake, alert, obeys commands, Oriented to person, place, time. Respiratory: No deficits noted. Airway is patent Respiratory effort is even, unlabored, Respiratory pattern is regular, symmetrical. GI: No deficits noted. : No deficits noted. Derm: Skin is pink, warm & dry. normal. 20:40 Reassessment: Patient appears in no apparent distress at this time. awake sitting on rw1 stretcher, safety maintained will monitor.. 21:51 Reassessment: Patient appears in no apparent distress at this time. resting quietly on rw1 stretcher, safety maintained will monitor.. 22:34 General: Appears in no apparent distress, comfortable, Behavior is appropriate for age, rw1 cooperative, quiet. Pain: Denies pain. Neurological: Level of Consciousness is awake, alert, obeys commands, Oriented to person, place, time. Respiratory: Airway is patent Respiratory effort is even, unlabored. Derm: Skin is pink, warm & dry. normal. Mental Health Eval: 21:08 Mental health consult is initiated at 20:35. Status: The patient is not a employee services manager or dependent. [facility]: The patient is not an established patient of [facility]. Referral Information: Evaluation referral is generated by the patient, at the recommendation of her new therapist at [facility]. The patient was referred for evaluation because of recurrent thoughts of tasking an overdose since D/C from [facility] yesterday. Subjective: The patients chief complaint is "I haven't been doing good since I got out". Delusions are denied. Patient's mood is depressed, with thoughts of suicide. Hallucinations are denied. Patient was D/C from [facility] yesterday, following a 3 week inpatient stay. Per review of her EMR, she had been admitted after revealing thoughts of smothering her 2 month old baby, along with thoughts of killing herself. While on the [facility], her boyfriend (the FoB) was awarded custody of the child & an order of protection was issued by the court. Patient was D/C to stay with a friend, as she is no longer live with her boyfriend & the child, per court order. Patient states that she has had thoughts of suicide on and off for years, however the thoughts today were intense enough that her friend/roommate had to keep her meds away from her. She expresses belief that she would have indeed taken an overdose today, had the opportunity been available. She continues to state that she would take pills if she could. She states that the stress of being without her boyfriend & child is the driving force in her mood & desire to kill herself at this point. Mental Health history: anxiety, depression, abusing prescription drugs. sleep disturbance, suicide attempt by overdose (date is unknown) Mental Health Admissions: Current Outpatient Mental Health Services: Therapist / Agency: [facility] (Had initial intake today). Current living environment is The patient currently lives a friend. Patient presents to Emergency Department with the following symptoms within the past 2 weeks: anxiety, depressed mood, feelings of helplessness/hopelessness, suicidal ideation with plan for pills. Substance abuse: Patient reports having a past h/o substance abuse, however denies use in some time. Mental status exam: Patients appearance is disheveled Patient's behavior is cooperative, Speech is unspontaneous Affect is restricted. Mood is depressed. Hallucinations are denied. Appetite is normal. Memory is fair. Energy level is normal. Content of thought is normal. Thought process is intact. Cognitive level is oriented to person, place, time and situation Patient's insight is poor. Judgement is poor. Rapport with interviewer is adequate. Suicidal Ideation present with a plan to kill self by pills. Homicidal ideation is denied. Disposition: Medically cleared for disposition by Sang Stein MD Psychiatric Consult is performed by phone with Dr Ronni Kent MD. [facility] Admission Criteria: The patient is experiencing suicidal ideation. The patient requires continuous observation and/or control to protect self, others or property. The patient's care requires a multi-modal treatment plan under close supervision and coordination due to the complexity and severity of the patient's symptoms. Legal Status: Patient's legal status will be Emergency admission: . [place] Safe Act: [place] Safe [place] is not applicable because patient was registered less than 6 months ago. DSM-V Differential Diagnosis: Major Depressive Disorder recurrent episode (F33.0) severe (F33.2). 22:31 Insurance Pre-Certification: Patient's insurance is listed as Medicaid. When run jl through [employer], the result rendered "[place] Eligible", with no additional managed account information (such as [facility] Community Plan, [employer], etc...) revealed. As a result, precert is unable to be completed at this time. [employer] screen printed & scanned into DocSea for review. Psych: 19:47 Mental Health Triage Level: Level 2: The patient displays active suicidal ideations. tm5 19:47 Subjective: The patients chief complaint is pt states that she was just discharged from Psych floor yesterday after a 3 week stay, states that she told her Psych MD today that she had thoughts of taking an Overdose of her medications today, also states that she has a 2 month old daughter at home so she thinks that she is having problems with Post- depression as well, denies Homicidal thoughts. Delusions are denied. Patient's mood is depressed, pt is crying & sad at this time, does state that her does bring her some klarissa some days but other days she is really depressed & sad, is at home in care of her father at this time 19:47 Objective: Patient is cooperative, Speech is normal. Affect is tearful. 19:47 Consultation: ED MD notified of patients status, 19:30 Emergency MH Worker made aware of pt status. Vital Signs: 19:25 BP 154 / 76; Pulse 80; Resp 18; Pulse Ox 99% ; elp 19:43 Temp 96.8(TE); Weight 60.78 kg; Height 5 ft. 2 in. (157.48 cm); Pain 5/10; tr 22:34 BP 111 / 69; Pulse 73; Resp 16; Temp 97.1(TE); Pulse Ox 97% on R/A; Pain 0/10; rw1 19:43 Body Mass Index 24.51 (60.78 kg, 157.48 cm) tr Vitals: 19:25 Log In Time: May 08, 2016 at 19:23. RN notified that patient meets Red Flag elp criteria. ED Course: 19:25 Patient visited by Haven Lynn PCA. elp 19:25 No Pcp is Private Physician. elp 19:25 Patient moved to Waiting elp 19:26 Patient visited by Haven Lynn PCA. elp 19:28 Triage Initiated rs3 19:32 Patient moved to [facility] rs3 19:41 Sang Stein MD is Attending Physician. pc 19:45 Patient visited by Rita Juarez RN. tm5 19:45 Awaiting ED physician evaluation. tm5 19:45 The patient / caregiver is instructed regarding the plan of care and ED course. Patient tm5 has correct armband on for positive identification. Placed in psych safe attire. Bed in low position. Security observing. 19:45 No IV's were initiated during this patient's visit. No procedures done that require tm5 assistance. 19:50 Patient visited by Jamie Woo. tr 19:57 Patient visited by Sang Stein MD. pc 20:02 Earnest Lopez LPN is Primary Nurse. rw1 20:05 Patient visited by Jamie Woo. tr 20:20 Patient visited by Earnest Lopez LPN. rw1 20:20 Patient visited by Jamie Woo. tr 20:33 Patient visited by Jamie Woo. tr 20:33 Patient visited by Luke Duggan PSA. jl 20:46 Patient visited by Jamie Woo. tr 21:07 E Legal paperwork was scanned into Wiggio and attached to record. jl 21:11 Patient visited by Jamie Woo. tr 21:16 Ronni Kent MD is Hospitalizing Provider. pc 21:19 Patient visited by Jamie Woo. tr 21:45 Patient visited by Jamie Woo. tr 21:58 [facility] Payment Agreement was scanned into Wiggio and attached to record. zo 22:10 Patient visited by Rita Juarez RN. tm5 22:16 Patient visited by Jamie Woo. tr 22:23 Patient name changed from Mariia\\S\\Donya\\S\\Neher\\S\\ to Mariia\\S\\M\\S\\Neher. EDMS 22:23 Patient name changed from Mariia\\S\\M\\S\\Neher\\S\\ to Mariia\\S\\Donya\\S\\Neher. EDMS 22:23 Patient name changed from Mariia\\S\\Donya\\S\\Neher\\S\\ to Mariia\\S\\M\\S\\Neher. EDMS 22:26 [facility] Legal paperwork was scanned into Wiggio and attached to record. jl 22:30 Patient visited by Jamie Woo. tr 22:34 Other: [employer]Paces result screen was scanned into Wiggio and attached to record. jl 22:42 Patient visited by Jamie Woo. tr Attachments: 22:26 [facility] Legal paperwork jl Order Results: Lab Order: Acetaminophen Level; SPEC'M 05/08/16 19:55 Test: ACETAMINOPHEN LEVEL; Value: < 2.0; Range: 10.0-30.0; Abnormal: Below low normal; Units: UG/ML; Status: F Lab Order: Basic Metabolic Profile; SPEC'M 05/08/16 19:55 Test: GLUCOSE, FASTING; Value: 82; Range: 70-105; Units: MG/DL; Status: F Test: BLOOD UREA NITROGEN; Value: 13; Range: 7-18; Units: MG/DL; Status: F Test: CREATININE FOR GFR; Value: 0.81; Range: 0.55-1.02; Units: MG/DL; Status: F Test: SODIUM LEVEL; Range: 136-145; Units: MEQ/L; Status: I Test: POTASSIUM SERUM; Range: 3.5-5.1; Units: MEQ/L; Status: I Test: CHLORIDE LEVEL; Range: 98-107; Units: MEQ/L; Status: I Test: CARBON DIOXIDE LEVEL; Range: 21-32; Units: MEQ/L; Status: I Test: ANION GAP; Range: 8-16; Units: MEQ/L; Status: I Test: CALCIUM LEVEL; Range: 8.5-10.1; Units: MG/DL; Status: I Test: GLOMERULAR FILTRATION RATE; Value: > 60.0; Range: >60; Status: F Test: SODIUM LEVEL; Value: 141; Range: 136-145; Units: MEQ/L; Status: F Test: POTASSIUM SERUM; Value: 3.8; Range: 3.5-5.1; Units: MEQ/L; Status: F Test: CHLORIDE LEVEL; Value: 109; Range: 98-107; Abnormal: Above high normal; Units: MEQ/L; Status: F Test: CARBON DIOXIDE LEVEL; Value: 22; Range: 21-32; Units: MEQ/L; Status: F Test: ANION GAP; Value: 10; Range: 8-16; Units: MEQ/L; Status: F Test: CALCIUM LEVEL; Value: 9.0; Range: 8.5-10.1; Units: MG/DL; Status: F Test Note: ; Units are mL/min/1.73 m2 Chronic Kidney Disease Staging per NKF: Stage I & II GFR >=60 Normal to Mildly Decreased Stage III GFR 30-59 Moderately Decreased Stage IV GFR 15-29 Severely Decreased Stage V GFR <15 Very Little GFR Left ESRD GFR <15 on MANAGER CARE MANAGEMENT Lab Order: Complete Blood Count; SPEC'M 05/08/16 19:55 Test: WHITE BLOOD COUNT; Value: 8.7; Range: 4.0-10.0; Units: K/mm3; Status: F Test: RED BLOOD COUNT; Value: 4.60; Range: 4.00-5.40; Units: M/mm3; Status: F Test: HEMOGLOBIN; Value: 13.4; Range: 12.0-16.0; Units: g/dl; Status: F Test: HEMATOCRIT; Value: 40.4; Range: 36.0-47.0; Units: %; Status: F Test: MEAN CORPUSCULAR VOLUME; Value: 87.9; Range: 80.0-96.0; Units: fl; Status: F Test: MEAN CORPUSCULAR HEMOGLOBIN; Value: 29.1; Range: 27.0-33.0; Units: pg; Status: F Test: MEAN CORPUSCULAR HGB CONC; Value: 33.1; Range: 32.0-36.5; Units: g/dl; Status: F Test: RED CELL DISTRIBUTION WIDTH; Value: 14.2; Range: 11.5-14.5; Units: %; Status: F Test: PLATELET COUNT, AUTOMATED; Value: 270; Range: 150-450; Units: k/mm3; Status: F Lab Order: Drug Eval Toxicology ED Only; SPEC'M 05/08/16 19:55 Test: AMPHETAMINES LEVEL URINE; Value: NEGATIVE; Range: NEGATIVE; Status: F Test: BARBITURATES URINE; Value: NEGATIVE; Range: NEGATIVE; Status: F Test: BENZODIAZEPINES URINE; Value: NEGATIVE; Range: NEGATIVE; Status: F Test: CANNABINOIDS URINE; Value: NEGATIVE; Range: NEGATIVE; Status: F Test: COCAINE METABOLITE URINE; Value: NEGATIVE; Range: NEGATIVE; Status: F Test: METHADONE URINE; Value: NEGATIVE; Range: NEGATIVE; Status: F Test: OPIATES URINE; Value: NEGATIVE; Range: NEGATIVE; Status: F Test: TRICYCLIC ANTIDEPRESS URINE; Value: NEGATIVE; Range: NEGATIVE; Status: F Test Note: ; ALL PRESUMPTIVE POSITIVE FINDINGS ARE UNCONFIRMED NORMAL VALUES THRESHOLD IN NG/ML AMPHETAMINES 1000 METHAMPHETAMINES 1000 BARBITURATES 300 BENZODIAZEPINES 300 CANNABINOIDS (THC) 50 COCAINE METABOLITE 300 METHADONE 300 OPIATES 300 PHENCYCLIDINE 25 TRICYCLIC ANTIDEPRESSANTS 1000 RESULTS ARE FOR MEDICAL PURPOSES ONLY. ALL URINE SPECIMENS WILL BE SAVED FOR 3 DAYS. IF CONFIRMATION OF A PRESUMPTIVE POSTIVE SCREEN RESULT IS DESIRED, CALL CHEMISTRY ([phone]) AND REQUEST URINE TO BE SENT TO REFERENCE LAB. FOR A LIST OF CLOSELY RELATED COMPOUNDS PLEASE CALL THE LAB. Lab Order: Ethyl Alcohol (ethanol); SPEC'M 05/08/16 19:55 Test: ETHYL ALCOHOL (ETHANOL); Value: < 0.003; Range: 0.000-0.010; Units: %; Status: F Lab Order: HCG,Serum Qualitative; SPEC'M 05/08/16 19:55 Test: HCG, SERUM QUALITATIVE; Value: NEGATIVE; Range: NEGATIVE; Status: F Lab Order: Liver Profile; SPEC'M 05/08/16 19:55 Test: AST/SGOT; Value: 17; Range: 15-37; Units: U/L; Status: F Test: ALT/SGPT; Value: 29; Range: 12-78; Units: U/L; Status: F Test: ALKALINE PHOSPHATASE; Value: 94; Range: 45-117; Units: U/L; Status: F Test: BILIRUBIN,TOTAL; Value: 0.7; Range: 0.2-1.0; Units: MG/DL; Status: F Test: BILIRUBIN,DIRECT; Value: 0.1; Range: 0.0-0.2; Units: MG/DL; Status: F Test: TOTAL PROTEIN; Value: 7.4; Range: 6.4-8.2; Units: GM/DL; Status: F Test: ALBUMIN; Value: 4.0; Range: 3.2-5.2; Units: GM/DL; Status: F Test: ALBUMIN/GLOBULIN RATIO; Value: 1.18; Range: 1.00-1.93; Status: F Lab Order: Salicylate Level; SPEC'M 05/08/16 19:55 Test: SALICYLATE LEVEL; Value: < 1.7; Range: 5.0-30.0; Abnormal: Below low normal; Units: MG/DL; Status: F Lab Order: Thyroid Stimulating Hormone; SPEC'M 05/08/16 19:55 Test: THYROID STIMULATING HORMONE; Value: 1.670; Range: 0.358-3.740; Units: uIU/ML; Status: F Outcome: 21:16 Decision to Hospitalize by Provider. pc 22:34 Discharge Assessment: Patient awake, alert and oriented x 3. No cognitive and/or rw1 functional deficits noted. Patient verbalized understanding of disposition instructions. patient administered narcotics - no. The following High Risk Discharge criteria are identified: Admitted to Psych accompanied by tech, via wheelchair, with chart. Condition: stable. No special radiology studies were completed. Property removed, inventory done, secured in belongings bag- given to [facility] staff. 22:57 Patient left the ED. rw1 Signatures: Dispatcher [employer] EDMS Sang Stein MD MD pc LaFontaine, Jon, Jamie Morales Robert, LPN LPN rw1 Master De Souza RosemaryRN RN rs3 Haven Lynn, RELIABILITY TECHNICIANS RELIABILITY TECHNICIANS elp Matice,Rita,RN RN tm5 MTDD
--- NOTE | 2016-05-08 22:59 | EDDOCDS ---
Physician Documentation [facility] Name: Mariia Gallegos Age: 21 yrs Sex: Female : 1995 Arrival Date: 05/08/2016 Time: 19:24 Bed U4 Private MD: No Pcp Disposition: 05/08 21:14 Critical Care: Critical care not applicable. pc Disposition: 05/08/16 21:16 Hospitalization ordered by Ronni Kent for Inpatient Admission. Preliminary diagnosis are Major depressive disorder, recurrent, moderate, Suicidal ideations. - Bed requested for Admit. - Status is Inpatient Admission. rw1 - Condition is Stable. - Problem is an ongoing problem. - Symptoms are unchanged. HPI: 19:57 This 21 yrs old Female presents to ER via Walkin/Carried/Asstd with pc complaints of Suicidal Ideation. 19:57 The history is obtained from the patient. The patient presents to the emergency pc department with suicidal ideation, depression. At their worst, the symptoms were moderate. In the emergency department, the symptoms are moderate. She was just discharged from our [facility] yesterday, after a 3 week admission, only to return today with the exact same complaints of SI. She admits that absolutely nothing has changed, no events have occurred that did not exist prior to her admission. Historical: - Allergies: no known allergies; - Home Meds: 1. Effexor XR 75 mg Oral cp24 1 cap once daily 2. quetiapine 25 mg oral tab 1 tab 3 times per day 3. oxcarbazepine 150 mg oral tab 2 times per day 4. trazodone 150 mg oral Tb24 1 tab once daily - PMHx: Anxiety; SI thoughts; Depression; - PSHx: Lumpectomy- Left; - The history from nurses notes was reviewed: and I agree with what is documented. - Social history: Smoking status: Patient uses tobacco products, light tobacco smoker. No barriers to communication noted, The patient speaks fluent [place]. - Family history: Not pertinent. - : The pt / caregiver states he / she is not on anticoagulants. Home medication list is obtained from the patient. - Exposure Risk Screening:: None identified. - Immunization history:: All immunizations up-to-date. - Social history:: the patient is a non-smoker, the patient does not drink alcohol. 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 The psychiatric and neurological components pc are also addressed in the HPI. Exam: 21:14 General Appearance: alert, no acute distress. pc 21:14 ENT: ear, nose and throat normal, pharynx normal. 21:14 Eyes: pupils equal, round and reactive to light, extraocular motions intact. 21:14 Neck: The exam reveals no acute abnormalities. ROM is normal and painless. No nuchal rigidity is noted.. 21:14 Respiratory: breathing is even and unlabored, breath sounds are normal. 21:14 Cardiovascular: regular pulse rate, regular heart rhythm, normal heart sounds, equal and full pulses bilaterally. 21:14 Abdomen: soft, non-tender, no organomegaly, normal bowel sounds. 21:14 Skin: skin color is normal, warm, dry. 21:14 Extremities: The extremities have a grossly normal appearance, are non-tender, without acute ROM abnormalities. 21:14 Neuro: alert, oriented to person, place and time, cranial nerves normal as tested, no motor deficits, no sensory deficits. 21:14 Psych: mood is depressed, suicidal, tearful, affect is flat. Vital Signs: 19:25 BP 154 / 76; Pulse 80; Resp 18; Pulse Ox 99% ; elp 19:43 Temp 96.8(TE); Weight 60.78 kg / 134 lbs; Height 5 ft. 2 in. (157.48 cm); Pain 5/10; tr 22:34 BP 111 / 69; Pulse 73; Resp 16; Temp 97.1(TE); Pulse Ox 97% on R/A; Pain 0/10; rw1 19:43 Body Mass Index 24.51 (60.78 kg, 157.48 cm) tr MDM: 19:43 Consult PFS/PSA/Transportation Dispatch Manager: Patient's case requires discussion with on-call pc Psychiatrist ordered. 19:43 PSA/PFS to call Nursing Dental Assisting Instructor, to enter patient data on [place] Safe [place] if patient pc involuntarily admitted or transferred for SI or HI ordered. 19:43 Confirm accurate psychiatric medication list and times of last dosage ordered. pc 19:43 Detain Pt Until Medically/PFS Cleared ordered. pc 19:44 Acetaminophen Level Ordered. EDMS 19:44 Basic Metabolic Profile Ordered. EDMS 19:44 Complete Blood Count Ordered. EDMS 19:44 Drug Eval Toxicology ED Only Ordered. EDMS 19:44 Ethyl Alcohol (ethanol) Ordered. EDMS 19:44 HCG,Serum Qualitative Ordered. EDMS 19:44 Liver Profile Ordered. EDMS 19:44 Salicylate Level Ordered. EDMS 19:44 Thyroid Stimulating Hormone Ordered. EDMS 20:31 Complete Blood Count Reviewed. pc 20:31 Drug Eval Toxicology ED Only Reviewed. pc 20:31 HCG,Serum Qualitative Reviewed. pc 20:31 Acetaminophen Level Reviewed. pc 20:31 Basic Metabolic Profile Reviewed. pc 20:31 Salicylate Level Reviewed. pc 20:31 Liver Profile Reviewed. pc 20:31 Ethyl Alcohol (ethanol) Reviewed. pc 20:31 Thyroid Stimulating Hormone Reviewed. pc 20:50 Acetaminophen Level Reviewed. pc 20:50 Basic Metabolic Profile Reviewed. pc 20:50 Salicylate Level Reviewed. pc 20:50 Ethyl Alcohol (ethanol) Reviewed. pc 20:50 HCG,Serum Qualitative Reviewed. pc 20:50 Liver Profile Reviewed. pc 20:50 Thyroid Stimulating Hormone Reviewed. pc 21:07 E Legal paperwork was scanned into [employer] and attached to record. jl 21:07 Consult PFS/PSA/Transportation Dispatch Manager: Patient's case requires discussion with on-call jl Psychiatrist complete. 21:07 PSA/PFS to call Nursing Dental Assisting Instructor, to enter patient data on [place] Safe Act if patient jl involuntarily admitted or transferred for SI or HI complete. 21:14 Differential diagnosis: depression, suicidal ideation. Plan: labs, PFS eval. The pc patient has been medically cleared for psychiatric evaluation, admission and/or transfer. [place] Safe Act reporting: The patient poses a significant risk to self or others, and PSA/PFS has notified the Nursing Dental Assisting Instructor and he/she will complete the required teradata developer. Data reviewed: old medical records, vital signs, nurses notes, lab test results. Test interpretation: LAB - all labs as ordered have been reviewed, interpreted and considered in the overall management of the clinical presentation;. The patient has been re-examined and re-evaluated. There is no appreciated change of the patient's symptoms at this time. Disposition: The historical points, examination findings, and any diagnostic results supporting the provided diagnosis, were discussed with the patient or legal guardian. The need for further work-up and/or treatment in the hospital was explained. 21:55 Financial registration complete. zo 21:58 [facility] Payment Agreement was scanned into [employer] and attached to record. zo 22:23 Admit to [facility]: ordered. EDMS 22:23 REGULAR DIET ordered. EDMS 22:26 [facility] Legal paperwork was scanned into [employer] and attached to record. jeanmarie 22:34 Other: ePaces result screen was scanned into [employer] and attached to record. jeanmarie Signatures: Dispatcher [employer] EDMS Sang Stein MD MD pc Urban, Luke, PSA PSA jl Earnest Lopez LPN LPN rw1 Master De Souza Rosemary,RN RN rs3 Rita Juarez,RN RN tm5 The chart was reviewed and I authenticate all verbal orders and agree with the evaluation and treatment provided.Corrections: (The following items were deleted from the chart) 20:01 19:57 She was just discharged from our [facility] yesterday, after a 3 week admission, only pc to return today with the exact same complaints of SI. pc Attachments: 21:58 [facility] Payment Agreement zo MTDD
[2016-05-08 23:05] VITALS: BP 115/66
[2016-05-09] MEDS: traZODone 50 MG TAB PO SCH ×2 (00:12→20:32)
[2016-05-09] MEDS: ACETAMINOPHEN TAB 650MG DOSE (2X325MG) PO PRN ×2 (00:14→11:03)
[2016-05-09 06:00] VITALS: BP 102/55
--- NOTE | 2016-05-09 10:49 | HPEPDOC ---
Medical History and Physical Date of Admission May 08, 2016 at 22:14 History and Physical PCP: [facility] ATTENDING: Dr. Amrik Montenegro HPI: 21yoF admitted to [facility] for MDD, being medically examined today. She states she was in the bathroom for 30 minutes this morning scraping her left forearm with a fork. She has an ecchymotic area on her left great toe which she states is from her boyfriend falling on her toe. Her teeth have been in poor repair, she missed her dental appointment during her last admission. She had a baby 2 months ago, she denies breast-feeding. She receives Dep[facility]- Provera from [facility]. Denies any fevers, chills, weakness, fatigue, BANEGAS, CP, SOB, cough, palpitations, abdominal pain, N/V/D or changes in bowel or bladder habits. PMHx: Chronic back pain Scoliosis X-ray thoracic and lumbosacral spine 04/30 mild dextroscoliosis. Anxiety/depression History of SI PSHX: Left breast lumpectomy SOCHX: Resides in: [facility] Marital Status: Single Kids: 2-month-old Employment: Unemployed Tobacco use: Denies ETOH: Denies Illicit Drugs: Marijuana weekly, Vicodin from friends IV Drug Use: Denies Tattoos done unprofessionally: Denies FAMHX: Patient is adopted and is unaware of her biological family history. Children: Alive, well Unexpected deaths due to medical reasons: None. ROS: As noted in HPI, otherwise 11pt ROS of systems reviewed and remarkable only for LMP 04/28/16. Currently on Depo as per PP. PE: GEN: 21yoF appears stated age. Well-nourished, well developed. No acute distress. Alert and oriented x 3. Pleasant, interactive. HEENT: Normocephalic, atraumatic. Pupils are equal, round, and reactive to light. Extraocular movements are intact. No nystagmus appreciated. Sclera are nonicteric. Conjunctiva without injection. Nose midline. Nasal turbinates without bogginess. EACs both patent BL. TMs both visualized and garzon with good cone of light, no bulging or erythema. No facial asymmetry. Moist mucous membranes. Dentition fair. Pharynx pink and moist, no cobblestoning. Neck supple , trachea midline. No lymphadenopathy or thyromegaly appreciated. CHEST: Regular rate and rhythm, +S1, +S2 LUNGS: Clear to auscultation bilaterally. No wheezes, rales, or rhonchi. Breathing appears symmetric and easy. Patient is speaking in full sentences. No accessory muscle use. ABD: Round, soft, non-tender, non-distended. +Bowel sounds throughout. No rebound or guarding. No costovertebral angle tenderness. EXT: Pulses 2+ bilaterally dorsalis pedis and radial. No lower extremity edema appreciated. SKIN: Ellis, dry, warm. Capillary refill <2sec. superficial scrapes are noted to the left forearm. These were self-inflicted this morning in the bathroom according to the patient, there is currently no drainage or bleeding. Ecchymosis is noted of the left great toe. There are 2 circular erythematous lesions right distal pretibial area. Bilateral feet with dry skin, callouses. NEURO: Alert and oriented x 3. Cranial nerves III-XII are intact. No focal deficits appreciated. There is currently no tenderness with palpation over the thoracic spine or lumbosacral area as well as paraspinal muscles. Good range of motion. She is ambulating without difficulty and no assistive devices. EKG: pending. A&P: 21yoF admitted to [facility] for Adjustment disorder 1. Psych. Plan per Psychiatry. Obtain baseline EKG to assure the safety of psychiatric medications as they can prolong the QT interval. 2. History of Thoracic spine pain and lumbar spine pain. Continue with Tylenol as needed. 3. History of scoliosis. 4. Follow up with PCP on discharge. [facility]. 5. Poor dentition. Reschedule dental appointment at discharge. 6. Contraception. Receives Depo-Provera injection as per PP. Will confirm last dose with [facility]. 7. Apply ketoconazole cream to skin lesion distal right pretibial area and to soles of feet bilaterally. 8. Accompanied by staff member Maritza MAX throughout exam. Vital Signs Vital Signs Label Value Date Time Patient Temperature 97.8 degrees F 05/09/16 0600 Pulse 75 05/09/16 0600 Respiratory Rate 16 bpm 05/09/16 0600 Blood Pressure Assessment 102/55 (71) 05/09/16 0600 Laboratory Data Labs 24H Laboratory Tests 2 05/08/16 19:55: Acetaminophen Level < 2.0L, Aspartate Amino Transf (AST/SGOT) 17, Alanine Aminotransferase (ALT/SGPT) 29, Alkaline Phosphatase 94, Total Bilirubin 0.7, Direct Bilirubin 0.1, Albumin 4.0, Albumin/Globulin Ratio 1.18, Anion Gap 10, Calcium Level 9.0, Ethyl Alcohol Level < 0.003, Glomerular Filtration Rate > 60.0, Human Chorionic Gonadotropin, Qual NEGATIVE, Salicylates Level < 1.7L, Thyroid Stimulating Hormone (TSH) 1.670, Total Protein 7.4, Urine Amphetamine Level NEGATIVE, Urine Benzodiazepines Screen NEGATIVE, Urine Cannabinoids NEGATIVE, Urine Cocaine Metabolite NEGATIVE, Urine Opiates Screen NEGATIVE, Urine Barbiturates, Qualitative NEGATIVE, Urine Methadone Screen NEGATIVE, Urine Tricyclic Antidepressants NEGATIVE CBC/BMP Laboratory Tests 05/08/16 19:55 Red Blood Count 4.60, Mean Corpuscular Volume 87.9, Mean Corpuscular Hemoglobin 29.1, Mean Corpuscular Hemoglobin Concent 33.1, Red Cell Distribution Width 14.2 Home Medications Scheduled Oxcarbazepine (Oxcarbazepine) 150 Mg Tab 150 MG PO BID Quetiapine Fumerate (Quetiapine Fumarate) 25 Mg Tab 12.5 MG PO TID Trazodone HCl (Trazodone HCl) 150 Mg Tab 150 MG PO QHS Venlafaxine Hydrochloride (Effexor Xr) 75 Mg Cap 75 MG PO DAILY Allergies Coded Allergies: No Known Allergies (Unverified , 02/22/16) Liv Alvarado May 09, 2016 10:49
[2016-05-09] MEDS: VENLAFAXINE **XR** 75MG CAPSULE PO SCH (11:01)
[2016-05-09] MEDS: OXcarbazepine 150 MG TAB PO SCH ×2 (11:02→20:13)
--- NOTE | 2016-05-09 11:26 | MHHPE ---
DATE OF ADMISSION: 05/08/2016 LEGAL STATUS AT ADMISSION: 9.39 legal status. CHIEF COMPLAINT: "I thought I was doing well, but I became very depressed and suicidal". HISTORY OF PRESENT ILLNESS: 21-year-old, white female with a history of major depressive disorder, recurrent, severe, since childhood, admitted to our unit on a 9.39 legal status. The patient was recently discharged from our unit after a 3 week hospitalization. The patient states that she felt very stable and was doing okay; however, when she got out she said that she could not pick up driver the full prescription packets because she had no money to pay for it, also that her boyfriend had invited another female to stay at home and that "he keeps changing plans on me all the time". During her last admission, she learned that an order of protection against her was issued and she could not return back home to live with her boyfriend and her child so she was discharged to live with a friend. She was having significant mood swings during the last hospitalization. As above, she has been having symptoms of severe depression intermittently since childhood. The patient also has significant emotional and anxiety fluctuations throughout the day. The patient states that she started having suicidal thoughts, she started cutting herself and finally she told the therapist that this was the situation and it was recommended for her to come to the emergency room for an evaluation. At the moment of the evaluation at the emergency room, she could not contract for safety. She stated that she would end up hurting herself and also that if she could have the opportunity she could take an overdose of medication so she was admitted again to our unit. During the interview today, the patient is very labile, tearful and anxious. She reports significant symptoms of depression with fairly low self esteem and unable to sleep well with feelings of hopelessness, helplessness and anhedonia. She was especially feeling angry and frustrated and depressed about the fact that her boyfriend has taken somebody else to live with him and the baby and that he has offered that he is planning to get full custody of the baby and "his constantly". PAST PSYCHIATRIC HISTORY: As above, the patient has just been discharged from our unit after three weeks of inpatient hospitalization. During that time, it was very difficult for her since she could not return to live with her baby and her boyfriend. She has a long history of depression dating back to her childhood. She has been on a significant amount of medications including Paxil, Celexa and Prozac. 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 FAMILY HISTORY: The patient is adopted. She reports that her mother had history of serious psychiatric illness, but unknown diagnosis. SOCIAL HISTORY: As above, the patient is adopted. Her mother had serious mental illness with frequent hospitalizations and was not able to care for the patient. The patient was born in [place] and was placed in a foster family in [place] since age 4. The patient recently moved to the [facility] in November 2014 to be with her boyfriend. The relationship with her adoptive parents is good. She graduated high school. 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 She was discharged to live with a friend since an order of protection was issued. She was living with her boyfriend and the child before admission to our unit the last time. SUBSTANCE ABUSE HISTORY: The patient admitted to the use of cannabis intermittently on occasions and has history of using pain pills that she gets from a friend in the past. The patient never had any rehabilitation program for chemical dependency in the past. REVIEW OF SYSTEMS: CONSTITUTIONAL: No weight loss, fever, chills, weakness or fatigue. HEENT: No visual loss, blurred vision, double vision or yellow sclerae. No hearing loss. No nasal congestion, runny nose or sore throat. SKIN: No rash or itching. CARDIOVASCULAR: No chest pain, chest pressure, chest discomfort, palpitations or edema. RESPIRATORY: No shortness of breath, cough or sputum. GI: No anorexia, nausea, vomiting or diarrhea. No abdominal pain. No blood. : No burning or pain on urination. NEUROLOGICAL: No headache, dizziness, syncope, paralysis, ataxia, numbness or tingling. MUSCULOSKELETAL: No muscle, back pain, joint pain or stiffness. HEMATOLOGIC: No anemia, bleeding or bruising. LYMPHATICS: No history of splenectomy. ENDOCRINOLOGIC: No report of sweating, cold or heat intolerance. No polyuria or polydipsia. ALLERGIES: No history of asthma, hives, eczema or rhinitis. PHYSICAL EXAM: As per physician mail handler assistant. MENTAL STATUS EXAMINATION: The patient is dressed in [facility]. The patient is cooperative, tearful, labile, anxious, depressed. Affect is appropriate and congruent with mood. Speech is slow and monotone. The patient has poor eye contact. The patient is oriented to time, place, person and situation. The patient's attention and concentration are impaired by her high anxiety. Instant recall, recent and remote memory are fair. Thought processes are coherent, logical, and goal directed. The patient does not have auditory or visual hallucinations. The patient does not have paranoid, persecutory, somatic, grandiose, or mosque delusions. The patient reports suicidal ideation, but denies homicidal thought. Judgment and insight are poor. LABS AT ADMISSION: CBC is unremarkable. CMP within normal limits. TSH within normal limits. HCG is negative. UDS is negative. Blood alcohol level is negative. DIAGNOSES: AXIS I: Major depressive disorder, severe, recurrent. AXIS II: Deferred. 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 INITIAL TREATMENT PLAN: Patient was admitted on a 9.39 legal status. Complete history was obtained. With her permission, family will be contacted and data base will be expanded. She will be provided with protected environment. She will be treated with individual, group and milieu therapy. She will also receive supportive psychoeducation. Discharge planning will commence immediately. Length of stay will be between 7-10 days. Outpatient followup will be strongly recommended. The treatment plan will focus initially on depression and risk of suicide.
[2016-05-09] MEDS: QUEtiapine FUMARATE 12.5 MG HALF-TAB PO SCH ×3 (11:41→20:13)
[2016-05-09] MEDS: KETOCONAZOLE 2% CREAM TOP SCH ×2 (12:31→20:13)
[2016-05-09] MEDS: OLANZapine ORAL DISINTEGRATING TAB 5MG PO PRN (17:28)
[2016-05-09 18:00] VITALS: BP 116/67
--- NOTE | 2016-05-10 01:15 | ECGEPIP ---
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 NO SIGNIFICANT CHANGES Electronically Signed On 05-10-2016 1:14:52 EST by Sony Espino
[2016-05-10 06:00] VITALS: BP 105/55
[2016-05-10] MEDS: VENLAFAXINE **XR** 75MG CAPSULE PO SCH (09:30)
[2016-05-10] MEDS: QUEtiapine FUMARATE 12.5 MG HALF-TAB PO SCH ×3 (09:30→21:11)
[2016-05-10] MEDS: OXcarbazepine 150 MG TAB PO SCH ×2 (09:30→21:11)
[2016-05-10] MEDS: KETOCONAZOLE 2% CREAM TOP SCH ×2 (09:31→21:00)
[2016-05-10] MEDS: OLANZapine ORAL DISINTEGRATING TAB 5MG PO PRN ×2 (10:28→18:21)
--- NOTE | 2016-05-10 18:00 | IPN ---
DATE: 05/10/2016 Ms Gallegos a 21-year-old white female with long history of major depressive disorder reporting severe since childhood. The patient has been readmitted after a few days of discharge. The patient became very depressed and suicidal. The patient was unable to contract for safety. When she was discharged she could not return home since she has an order of protection and she cannot see her baby without supervision so she went to live with a friend. The patient stated that her boyfriend has invited another girl to live in their house with him and the baby. She is telling her that he is going to get full custody of the baby and she says that he is changing his plans. She has no support in [place]. She came recently from another state to live with her boyfriend and their child. MEDICATIONS: - Trileptal 150 mg by mouth twice a day - Effexor XR 75 mg by mouth every a.m. - Seroquel 12.5 mg by mouth twice a day - trazodone 150 mg by mouth nightly SUBJECTIVE: Very depressed and anxious. Could not sleep last night. OBJECTIVE: The patient continues very depressed, tearful with psychomotor retardation. She has been isolated in the room. Reports suicidal thoughts and cannot contract for safety. No evidence of psychotic symptoms. MENTAL STATUS EXAM: The patient is dressed in [facility]. Poor eye contact. Speech is low and monotone. Mood is depressed and anxious. Affect is labile and tearful. No delusions or hallucinations. Memory is fair. Patient is fully oriented. The patient reports suicidal ideation. Cannot contract for safety. No homicidal thoughts. Insight and judgment is poor. ASSESSMENT: Major depressive disorder, severe, recurrent. PLAN: 1. Continue with Trileptal 150 mg by mouth twice a day. 2. Start low dosage of Lamictal 25 mg by mouth daily and increase until therapeutic dose and then taper Trileptal and discontinue. 3. Effexor XR 75 mg by mouth every a.m. 4. Seroquel 12.5 mg by mouth three times a day. 5. Trazodone 150 mg by mouth nightly.
[2016-05-10 18:23] VITALS: BP 108/61
[2016-05-10] MEDS: traZODone 50 MG TAB PO SCH (21:11)
[2016-05-10] MEDS: lamoTRIgine 25 MG TAB PO SCH (21:11)
--- NOTE | 2016-05-10 23:58 | EDDOCDS ---
Physician Documentation [facility] Name: Mariia Gallegos Age: 21 yrs Sex: Female : 1995 Arrival Date: 05/08/2016 Time: 19:24 Bed U4 Private MD: No Pcp Disposition: 05/08 21:14 Critical Care: Critical care not applicable. pc Disposition: 05/08/16 21:16 Hospitalization ordered by Ronni Kent for Inpatient Admission. Preliminary diagnosis are Major depressive disorder, recurrent, moderate, Suicidal ideations. - Bed requested for Admit. - Status is Inpatient Admission. rw1 - Condition is Stable. - Problem is an ongoing problem. - Symptoms are unchanged. HPI: 19:57 This 21 yrs old Female presents to ER via Walkin/Carried/Asstd with pc complaints of Suicidal Ideation. 19:57 The history is obtained from the patient. The patient presents to the emergency pc department with suicidal ideation, depression. At their worst, the symptoms were moderate. In the emergency department, the symptoms are moderate. She was just discharged from our [facility] yesterday, after a 3 week admission, only to return today with the exact same complaints of SI. She admits that absolutely nothing has changed, no events have occurred that did not exist prior to her admission. Historical: - Allergies: no known allergies; - Home Meds: 1. Effexor XR 75 mg Oral cp24 1 cap once daily 2. quetiapine 25 mg oral tab 1 tab 3 times per day 3. oxcarbazepine 150 mg oral tab 2 times per day 4. trazodone 150 mg oral Tb24 1 tab once daily - PMHx: Anxiety; SI thoughts; Depression; - PSHx: Lumpectomy- Left; - The history from nurses notes was reviewed: and I agree with what is documented. - Social history: Smoking status: Patient uses tobacco products, light tobacco smoker. No barriers to communication noted, The patient speaks fluent German. - Family history: Not pertinent. - : The pt / caregiver states he / she is not on anticoagulants. Home medication list is obtained from the patient. - Exposure Risk Screening:: None identified. - Immunization history:: All immunizations up-to-date. - Social history:: the patient is a non-smoker, the patient does not drink alcohol. 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 The psychiatric and neurological components pc are also addressed in the HPI. Exam: 21:14 General Appearance: alert, no acute distress. pc 21:14 ENT: ear, nose and throat normal, pharynx normal. 21:14 Eyes: pupils equal, round and reactive to light, extraocular motions intact. 21:14 Neck: The exam reveals no acute abnormalities. ROM is normal and painless. No nuchal rigidity is noted.. 21:14 Respiratory: breathing is even and unlabored, breath sounds are normal. 21:14 Cardiovascular: regular pulse rate, regular heart rhythm, normal heart sounds, equal and full pulses bilaterally. 21:14 Abdomen: soft, non-tender, no organomegaly, normal bowel sounds. 21:14 Skin: skin color is normal, warm, dry. 21:14 Extremities: The extremities have a grossly normal appearance, are non-tender, without acute ROM abnormalities. 21:14 Neuro: alert, oriented to person, place and time, cranial nerves normal as tested, no motor deficits, no sensory deficits. 21:14 Psych: mood is depressed, suicidal, tearful, affect is flat. Vital Signs: 19:25 BP 154 / 76; Pulse 80; Resp 18; Pulse Ox 99% ; elp 19:43 Temp 96.8(TE); Weight 60.78 kg / 134 lbs; Height 5 ft. 2 in. (157.48 cm); Pain 5/10; tr 22:34 BP 111 / 69; Pulse 73; Resp 16; Temp 97.1(TE); Pulse Ox 97% on R/A; Pain 0/10; rw1 19:43 Body Mass Index 24.51 (60.78 kg, 157.48 cm) tr MDM: 19:43 Consult PFS/PSA/Time Buyer: Patient's case requires discussion with on-call pc Psychiatrist ordered. 19:43 PSA/PFS to call Nursing Distiller, to enter patient data on [place] Safe Act if patient pc involuntarily admitted or transferred for SI or HI ordered. 19:43 Confirm accurate psychiatric medication list and times of last dosage ordered. pc 19:43 Detain Pt Until Medically/PFS Cleared ordered. pc 19:44 Acetaminophen Level Ordered. EDMS 19:44 Basic Metabolic Profile Ordered. EDMS 19:44 Complete Blood Count Ordered. EDMS 19:44 Drug Eval Toxicology ED Only Ordered. EDMS 19:44 Ethyl Alcohol (ethanol) Ordered. EDMS 19:44 HCG,Serum Qualitative Ordered. EDMS 19:44 Liver Profile Ordered. EDMS 19:44 Salicylate Level Ordered. EDMS 19:44 Thyroid Stimulating Hormone Ordered. EDMS 20:31 Complete Blood Count Reviewed. pc 20:31 Drug Eval Toxicology ED Only Reviewed. pc 20:31 HCG,Serum Qualitative Reviewed. pc 20:31 Acetaminophen Level Reviewed. pc 20:31 Basic Metabolic Profile Reviewed. pc 20:31 Salicylate Level Reviewed. pc 20:31 Liver Profile Reviewed. pc 20:31 Ethyl Alcohol (ethanol) Reviewed. pc 20:31 Thyroid Stimulating Hormone Reviewed. pc 20:50 Acetaminophen Level Reviewed. pc 20:50 Basic Metabolic Profile Reviewed. pc 20:50 Salicylate Level Reviewed. pc 20:50 Ethyl Alcohol (ethanol) Reviewed. pc 20:50 HCG,Serum Qualitative Reviewed. pc 20:50 Liver Profile Reviewed. pc 20:50 Thyroid Stimulating Hormone Reviewed. pc 21:07 E Legal paperwork was scanned into [employer] and attached to record. jl 21:07 Consult PFS/PSA/Time Buyer: Patient's case requires discussion with on-call jl Psychiatrist complete. 21:07 PSA/PFS to call Nursing Distiller, to enter patient data on [place] Safe Act if patient jl involuntarily admitted or transferred for SI or HI complete. 21:14 Differential diagnosis: depression, suicidal ideation. Plan: labs, PFS eval. The pc patient has been medically cleared for psychiatric evaluation, admission and/or transfer. [place] Safe Act reporting: The patient poses a significant risk to self or others, and PSA/PFS has notified the Nursing Distiller and he/she will complete the required gis database administrator. Data reviewed: old medical records, vital signs, nurses notes, lab test results. Test interpretation: LAB - all labs as ordered have been reviewed, interpreted and considered in the overall management of the clinical presentation;. The patient has been re-examined and re-evaluated. There is no appreciated change of the patient's symptoms at this time. Disposition: The historical points, examination findings, and any diagnostic results supporting the provided diagnosis, were discussed with the patient or legal guardian. The need for further work-up and/or treatment in the hospital was explained. 21:55 Financial registration complete. zo 21:58 [facility] [place] Payment Agreement was scanned into [employer] and attached to record. zo 22:23 Admit to [facility]: ordered. EDMS 22:23 REGULAR DIET ordered. EDMS 22:26 [facility] Legal paperwork was scanned into [employer] and attached to record. jeanmarie 22:34 Other: [employer] result screen was scanned into [employer] and attached to record. jeanmarie Signatures: Dispatcher [employer] EDMS Sang Stein MD MD pc Urban, Luke, PSA PSA jl Earnest Lopez LPN LPN rw1 Master De Souza Rosemary,RN RN rs3 Rita Juarez,RN RN tm5 The chart was reviewed and I authenticate all verbal orders and agree with the evaluation and treatment provided.Corrections: (The following items were deleted from the chart) 20:01 19:57 She was just discharged from our [facility] yesterday, after a 3 week admission, only pc to return today with the exact same complaints of SI. pc Attachments: 21:58 [facility] [place] Payment Agreement zo Chart Complete MTDD
--- NOTE | 2016-05-10 23:58 | EDDOCDS ---
Physician Documentation [facility] Name: Mariia Gallegos Age: 21 yrs Sex: Female : 1995 Arrival Date: 05/08/2016 Time: 19:24 Bed U4 Private MD: No Pcp Disposition: 05/08 21:14 Critical Care: Critical care not applicable. pc Disposition: 05/08/16 21:16 Hospitalization ordered by Ronni Kent for Inpatient Admission. Preliminary diagnosis are Major depressive disorder, recurrent, moderate, Suicidal ideations. - Bed requested for Admit. - Status is Inpatient Admission. rw1 - Condition is Stable. - Problem is an ongoing problem. - Symptoms are unchanged. HPI: 19:57 This 21 yrs old Female presents to ER via Walkin/Carried/Asstd with pc complaints of Suicidal Ideation. 19:57 The history is obtained from the patient. The patient presents to the emergency pc department with suicidal ideation, depression. At their worst, the symptoms were moderate. In the emergency department, the symptoms are moderate. She was just discharged from our [facility] yesterday, after a 3 week admission, only to return today with the exact same complaints of SI. She admits that absolutely nothing has changed, no events have occurred that did not exist prior to her admission. Historical: - Allergies: no known allergies; - Home Meds: 1. Effexor XR 75 mg Oral cp24 1 cap once daily 2. quetiapine 25 mg oral tab 1 tab 3 times per day 3. oxcarbazepine 150 mg oral tab 2 times per day 4. trazodone 150 mg oral Tb24 1 tab once daily - PMHx: Anxiety; SI thoughts; Depression; - PSHx: Lumpectomy- Left; - The history from nurses notes was reviewed: and I agree with what is documented. - Social history: Smoking status: Patient uses tobacco products, light tobacco smoker. No barriers to communication noted, The patient speaks fluent Ugandan. - Family history: Not pertinent. - : The pt / caregiver states he / she is not on anticoagulants. Home medication list is obtained from the patient. - Exposure Risk Screening:: None identified. - Immunization history:: All immunizations up-to-date. - Social history:: the patient is a non-smoker, the patient does not drink alcohol. 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 The psychiatric and neurological components pc are also addressed in the HPI. Exam: 21:14 General Appearance: alert, no acute distress. pc 21:14 ENT: ear, nose and throat normal, pharynx normal. 21:14 Eyes: pupils equal, round and reactive to light, extraocular motions intact. 21:14 Neck: The exam reveals no acute abnormalities. ROM is normal and painless. No nuchal rigidity is noted.. 21:14 Respiratory: breathing is even and unlabored, breath sounds are normal. 21:14 Cardiovascular: regular pulse rate, regular heart rhythm, normal heart sounds, equal and full pulses bilaterally. 21:14 Abdomen: soft, non-tender, no organomegaly, normal bowel sounds. 21:14 Skin: skin color is normal, warm, dry. 21:14 Extremities: The extremities have a grossly normal appearance, are non-tender, without acute ROM abnormalities. 21:14 Neuro: alert, oriented to person, place and time, cranial nerves normal as tested, no motor deficits, no sensory deficits. 21:14 Psych: mood is depressed, suicidal, tearful, affect is flat. Vital Signs: 19:25 BP 154 / 76; Pulse 80; Resp 18; Pulse Ox 99% ; elp 19:43 Temp 96.8(TE); Weight 60.78 kg / 134 lbs; Height 5 ft. 2 in. (157.48 cm); Pain 5/10; tr 22:34 BP 111 / 69; Pulse 73; Resp 16; Temp 97.1(TE); Pulse Ox 97% on R/A; Pain 0/10; rw1 19:43 Body Mass Index 24.51 (60.78 kg, 157.48 cm) tr MDM: 19:43 Consult PFS/PSA/Representative: Patient's case requires discussion with on-call pc Psychiatrist ordered. 19:43 PSA/PFS to call Nursing Nursing Informatics Analyst, to enter patient data on [place] Safe [place] if patient pc involuntarily admitted or transferred for SI or HI ordered. 19:43 Confirm accurate psychiatric medication list and times of last dosage ordered. pc 19:43 Detain Pt Until Medically/PFS Cleared ordered. pc 19:44 Acetaminophen Level Ordered. EDMS 19:44 Basic Metabolic Profile Ordered. EDMS 19:44 Complete Blood Count Ordered. EDMS 19:44 Drug Eval Toxicology ED Only Ordered. EDMS 19:44 Ethyl Alcohol (ethanol) Ordered. EDMS 19:44 HCG,Serum Qualitative Ordered. EDMS 19:44 Liver Profile Ordered. EDMS 19:44 Salicylate Level Ordered. EDMS 19:44 Thyroid Stimulating Hormone Ordered. EDMS 20:31 Complete Blood Count Reviewed. pc 20:31 Drug Eval Toxicology ED Only Reviewed. pc 20:31 HCG,Serum Qualitative Reviewed. pc 20:31 Acetaminophen Level Reviewed. pc 20:31 Basic Metabolic Profile Reviewed. pc 20:31 Salicylate Level Reviewed. pc 20:31 Liver Profile Reviewed. pc 20:31 Ethyl Alcohol (ethanol) Reviewed. pc 20:31 Thyroid Stimulating Hormone Reviewed. pc 20:50 Acetaminophen Level Reviewed. pc 20:50 Basic Metabolic Profile Reviewed. pc 20:50 Salicylate Level Reviewed. pc 20:50 Ethyl Alcohol (ethanol) Reviewed. pc 20:50 HCG,Serum Qualitative Reviewed. pc 20:50 Liver Profile Reviewed. pc 20:50 Thyroid Stimulating Hormone Reviewed. pc 21:07 E Legal paperwork was scanned into [employer] and attached to record. jl 21:07 Consult PFS/PSA/Representative: Patient's case requires discussion with on-call jl Psychiatrist complete. 21:07 PSA/PFS to call Nursing Nursing Informatics Analyst, to enter patient data on [place] Safe Act if patient jl involuntarily admitted or transferred for SI or HI complete. 21:14 Differential diagnosis: depression, suicidal ideation. Plan: labs, PFS eval. The pc patient has been medically cleared for psychiatric evaluation, admission and/or transfer. [place] Safe Act reporting: The patient poses a significant risk to self or others, and PSA/PFS has notified the Nursing Nursing Informatics Analyst and he/she will complete the required clinical data abstractor. Data reviewed: old medical records, vital signs, nurses notes, lab test results. Test interpretation: LAB - all labs as ordered have been reviewed, interpreted and considered in the overall management of the clinical presentation;. The patient has been re-examined and re-evaluated. There is no appreciated change of the patient's symptoms at this time. Disposition: The historical points, examination findings, and any diagnostic results supporting the provided diagnosis, were discussed with the patient or legal guardian. The need for further work-up and/or treatment in the hospital was explained. 21:55 Financial registration complete. zo 21:58 [facility] [place] Agreement was scanned into [employer] and attached to record. zo 22:23 Admit to [facility]: ordered. EDMS 22:23 REGULAR DIET ordered. EDMS 22:26 [facility] Legal paperwork was scanned into [employer] and attached to record. jeanmarie 22:34 Other: [employer]Paces result screen was scanned into [employer] and attached to record. jeanmarie Signatures: Dispatcher [employer] EDMS Sang Stein MD MD pc Urban, Luke, PSA PSA jl Earnest Lopez LPN LPN rw1 Master De Souza Rosemary,RN RN rs3 Rita Juarez,RN RN tm5 The chart was reviewed and I authenticate all verbal orders and agree with the evaluation and treatment provided.Corrections: (The following items were deleted from the chart) 20:01 19:57 She was just discharged from our [facility] yesterday, after a 3 week admission, only pc to return today with the exact same complaints of SI. pc Attachments: 21:58 [facility] [place] Agreement zo Chart Complete MTDD
--- NOTE | 2016-05-10 23:58 | EDDOCDS ---
Nurse's Notes [facility] Name: Mariia Gallegos Age: 21 yrs Sex: Female : 1995 Arrival Date: 05/08/2016 Time: 19:[address] MD: No Pcp Diagnosis: Major depressive disorder, recurrent, moderate;Suicidal ideations Presentation: 05/08 19:26 Presenting complaint: Patient states: having thoughts of wanting to kill myself rs3 overdosing on meds. Was discharged from [facility] yesterday. Mental Health Triage Level: Level 2: The patient displays active suicidal ideations. Adult Sepsis Screening: The patient does not have new or worsening altered mentation. Patient's respiratory rate is less than 22. Systolic blood pressure is greater than 100. Patient has a qSOFA score of 0- Negative Sepsis Screen. Mental Health Triage Level: Level 2: The patient displays active suicidal ideations. Suicide/Homicide risk assessment- The patient admits to and/or has been reported to be having suicidal ideations. The patient reports that he/she has been admitted to an inpatient mental health facility in the last 30 days. The patient reports that he/she does not have a recent or current history of substance abuse. The patient reports that he/she has a prior history of suicide attempt and/or organized plan. The patient reports that he/she has experienced a significant life altering event in the last 30 days. Status: Patient is not a financial services specialist or dependent. Transition of care: patient was not received from another setting of care. 19:26 Acuity: JENNIFER Level 3 rs3 19:26 Method Of Arrival: Walkin/Carried/Asstd rs3 Triage Assessment: 19:31 General: Appears in no apparent distress. Pain: Denies pain. HIV screening NA for this rs3 visit Offered previously. COMMUNITY HEALTH EDUCATOR: 19:31 LMP 04/28/2016 rs3 Historical: - Allergies: no known allergies; - Home Meds: 1. Effexor XR 75 mg Oral cp24 1 cap once daily 2. quetiapine 25 mg oral tab 1 tab 3 times per day 3. oxcarbazepine 150 mg oral tab 2 times per day 4. trazodone 150 mg oral Tb24 1 tab once daily - PMHx: Anxiety; SI thoughts; Depression; - PSHx: Lumpectomy- Left; - The history from nurses notes was reviewed: and I agree with what is documented. - Social history: Smoking status: Patient uses tobacco products, light tobacco smoker. No barriers to communication noted, The patient speaks fluent Paraguayan. - Family history: Not pertinent. - : The pt / caregiver states he / she is not on anticoagulants. Home medication list is obtained from the patient. - Exposure Risk Screening:: None identified. - Immunization history:: All immunizations up-to-date. - Social history:: the patient is a non-smoker, the patient does not drink alcohol. Screenin:45 Screening information is obtained from the patient. Fall risk: No risks identified. tm5 Assistance ADL's: requires no assistance with activities of daily living. Abuse/DV Screen: The patient / caregiver reports he/she is: not in a situation that causes fear, pain or injury. Nutritional screening: No deficits noted. Advance Directives: There is no active DNR order. home support is adequate. Assessment: 19:45 General: Appears distressed, unkempt, Behavior is cooperative, crying. Pain: Denies tm5 pain. Neurological: Level of Consciousness is awake, alert, obeys commands, Oriented to person, place, time. Respiratory: No deficits noted. Airway is patent Respiratory effort is even, unlabored, Respiratory pattern is regular, symmetrical. GI: No deficits noted. : No deficits noted. Derm: Skin is pink, warm & dry. normal. 20:40 Reassessment: Patient appears in no apparent distress at this time. awake sitting on rw1 stretcher, safety maintained will monitor.. 21:51 Reassessment: Patient appears in no apparent distress at this time. resting quietly on rw1 stretcher, safety maintained will monitor.. 22:34 General: Appears in no apparent distress, comfortable, Behavior is appropriate for age, rw1 cooperative, quiet. Pain: Denies pain. Neurological: Level of Consciousness is awake, alert, obeys commands, Oriented to person, place, time. Respiratory: Airway is patent Respiratory effort is even, unlabored. Derm: Skin is pink, warm & dry. normal. Mental Health Eval: 21:08 Mental health consult is initiated at 20:35. Status: The patient is not a financial services specialist or dependent. [facility] Behavioral Health: The patient is not an established patient of [facility] Behavioral Health. Referral Information: Evaluation referral is generated by the patient, at the recommendation of her new therapist at [facility]. The patient was referred for evaluation because of recurrent thoughts of tasking an overdose since D/C from [facility] yesterday. Subjective: The patients chief complaint is "I haven't been doing good since I got out". Delusions are denied. Patient's mood is depressed, with thoughts of suicide. Hallucinations are denied. Patient was D/C from [facility] yesterday, following a 3 week inpatient stay. Per review of her EMR, she had been admitted after revealing thoughts of smothering her 2 month old baby, along with thoughts of killing herself. While on the [facility], her boyfriend (the FoB) was awarded custody of the child & an order of protection was issued by the court. Patient was D/C to stay with a friend, as she is no longer live with her boyfriend & the child, per court order. Patient states that she has had thoughts of suicide on and off for years, however the thoughts today were intense enough that her friend/roommate had to keep her meds away from her. She expresses belief that she would have indeed taken an overdose today, had the opportunity been available. She continues to state that she would take pills if she could. She states that the stress of being without her boyfriend & child is the driving force in her mood & desire to kill herself at this point. Mental Health history: anxiety, depression, abusing prescription drugs. sleep disturbance, suicide attempt by overdose (date is unknown) Mental Health Admissions: Current Outpatient Mental Health Services: Therapist / Agency: [facility] (Had initial intake today). Current living environment is The patient currently lives a friend. Patient presents to Emergency Department with the following symptoms within the past 2 weeks: anxiety, depressed mood, feelings of helplessness/hopelessness, suicidal ideation with plan for pills. Substance abuse: Patient reports having a past h/o substance abuse, however denies use in some time. Mental status exam: Patients appearance is disheveled Patient's behavior is cooperative, Speech is unspontaneous Affect is restricted. Mood is depressed. Hallucinations are denied. Appetite is normal. Memory is fair. Energy level is normal. Content of thought is normal. Thought process is intact. Cognitive level is oriented to person, place, time and situation Patient's insight is poor. Judgement is poor. Rapport with interviewer is adequate. Suicidal Ideation present with a plan to kill self by pills. Homicidal ideation is denied. Disposition: Medically cleared for disposition by Sang Stein MD Psychiatric Consult is performed by phone with Dr Ronni Kent MD. [facility] Admission Criteria: The patient is experiencing suicidal ideation. The patient requires continuous observation and/or control to protect self, others or property. The patient's care requires a multi-modal treatment plan under close supervision and coordination due to the complexity and severity of the patient's symptoms. Legal Status: Patient's legal status will be Emergency admission: . [place] Safe Act: [place] Safe [place] is not applicable because patient was registered less than 6 months ago. DSM-V Differential Diagnosis: Major Depressive Disorder recurrent episode (F33.0) severe (F33.2). 22:31 Insurance Pre-Certification: Patient's insurance is listed as Medicaid. When run jl through [employer], the result rendered "[place] Eligible", with no additional managed account information (such as [facility] Community Plan, [employer], etc...) revealed. As a result, precert is unable to be completed at this time. [employer] screen printed & scanned into [employer] for review. Psych: 19:47 Mental Health Triage Level: Level 2: The patient displays active suicidal ideations. tm5 19:47 Subjective: The patients chief complaint is pt states that she was just discharged from Psych floor yesterday after a 3 week stay, states that she told her Psych MD today that she had thoughts of taking an Overdose of her medications today, also states that she has a 2 month old daughter at home so she thinks that she is having problems with Post- depression as well, denies Homicidal thoughts. Delusions are denied. Patient's mood is depressed, pt is crying & sad at this time, does state that her does bring her some klarissa some days but other days she is really depressed & sad, is at home in care of her father at this time 19:47 Objective: Patient is cooperative, Speech is normal. Affect is tearful. 19:47 Consultation: ED MD notified of patients status, 19:30 Emergency MH Worker made aware of pt status. Vital Signs: 19:25 BP 154 / 76; Pulse 80; Resp 18; Pulse Ox 99% ; elp 19:43 Temp 96.8(TE); Weight 60.78 kg; Height 5 ft. 2 in. (157.48 cm); Pain 5/10; tr 22:34 BP 111 / 69; Pulse 73; Resp 16; Temp 97.1(TE); Pulse Ox 97% on R/A; Pain 0/10; rw1 19:43 Body Mass Index 24.51 (60.78 kg, 157.48 cm) tr Vitals: 19:25 Log In Time: May 08, 2016 at 19:23. RN notified that patient meets Red Flag elp criteria. ED Course: 19:25 Patient visited by Haven Lynn PCA. elp 19:25 No Pcp is Private Physician. elp 19:25 Patient moved to Waiting elp 19:26 Patient visited by Haven Lynn PCA. elp 19:28 Triage Initiated rs3 19:32 Patient moved to [facility] rs3 19:41 Sang Stein MD is Attending Physician. pc 19:45 Patient visited by Rita Juarez RN. tm5 19:45 Awaiting ED physician evaluation. tm5 19:45 The patient / caregiver is instructed regarding the plan of care and ED course. Patient tm5 has correct armband on for positive identification. Placed in psych safe attire. Bed in low position. Security observing. 19:45 No IV's were initiated during this patient's visit. No procedures done that require tm5 assistance. 19:50 Patient visited by Jamie Woo. tr 19:57 Patient visited by Sang Stein MD. pc 20:02 Earnest Lopez LPN is Primary Nurse. rw1 20:05 Patient visited by Jamie Woo. tr 20:20 Patient visited by Earnest Lopez LPN. rw1 20:20 Patient visited by Jamie Woo. tr 20:33 Patient visited by Jamie Woo. tr 20:33 Patient visited by Luke Duggan PSA. jl 20:46 Patient visited by Jamie Woo. tr 21:07 E Legal paperwork was scanned into [employer] and attached to record. jl 21:11 Patient visited by Jamie Woo. tr 21:16 Ronni Kent MD is Hospitalizing Provider. pc 21:19 Patient visited by Jamie Woo. tr 21:45 Patient visited by Jamie Woo. tr 21:58 [facility] Payment Agreement was scanned into [employer] and attached to record. zo 22:10 Patient visited by Rita Juarez RN. tm5 22:16 Patient visited by Jamie Woo. tr 22:23 Patient name changed from Mariia\\S\\Donya\\S\\Neher\\S\\ to Mariia\\S\\M\\S\\Neher. EDMS 22:23 Patient name changed from Mariia\\S\\M\\S\\Neher\\S\\ to Mariia\\S\\Donya\\S\\Neher. EDMS 22:23 Patient name changed from Mariia\\S\\Donya\\S\\Neher\\S\\ to Mariia\\S\\M\\S\\Neher. EDMS 22:26 [facility] Legal paperwork was scanned into [employer] and attached to record. jl 22:30 Patient visited by Jamie Woo. tr 22:34 Other: [employer] result screen was scanned into [employer] and attached to record. jl 22:42 Patient visited by Jamie Woo. tr Attachments: 22:26 [facility] Legal paperwork jl Order Results: Lab Order: Acetaminophen Level; SPEC'M 05/08/16 19:55 Test: ACETAMINOPHEN LEVEL; Value: < 2.0; Range: 10.0-30.0; Abnormal: Below low normal; Units: UG/ML; Status: F Lab Order: Basic Metabolic Profile; SPEC'M 05/08/16 19:55 Test: GLUCOSE, FASTING; Value: 82; Range: 70-105; Units: MG/DL; Status: F Test: BLOOD UREA NITROGEN; Value: 13; Range: 7-18; Units: MG/DL; Status: F Test: CREATININE FOR GFR; Value: 0.81; Range: 0.55-1.02; Units: MG/DL; Status: F Test: SODIUM LEVEL; Range: 136-145; Units: MEQ/L; Status: I Test: POTASSIUM SERUM; Range: 3.5-5.1; Units: MEQ/L; Status: I Test: CHLORIDE LEVEL; Range: 98-107; Units: MEQ/L; Status: I Test: CARBON DIOXIDE LEVEL; Range: 21-32; Units: MEQ/L; Status: I Test: ANION GAP; Range: 8-16; Units: MEQ/L; Status: I Test: CALCIUM LEVEL; Range: 8.5-10.1; Units: MG/DL; Status: I Test: GLOMERULAR FILTRATION RATE; Value: > 60.0; Range: >60; Status: F Test: SODIUM LEVEL; Value: 141; Range: 136-145; Units: MEQ/L; Status: F Test: POTASSIUM SERUM; Value: 3.8; Range: 3.5-5.1; Units: MEQ/L; Status: F Test: CHLORIDE LEVEL; Value: 109; Range: 98-107; Abnormal: Above high normal; Units: MEQ/L; Status: F Test: CARBON DIOXIDE LEVEL; Value: 22; Range: 21-32; Units: MEQ/L; Status: F Test: ANION GAP; Value: 10; Range: 8-16; Units: MEQ/L; Status: F Test: CALCIUM LEVEL; Value: 9.0; Range: 8.5-10.1; Units: MG/DL; Status: F Test Note: ; Units are mL/min/1.73 m2 Chronic Kidney Disease Staging per NKF: Stage I & II GFR >=60 Normal to Mildly Decreased Stage III GFR 30-59 Moderately Decreased Stage IV GFR 15-29 Severely Decreased Stage V GFR <15 Very Little GFR Left ESRD GFR <15 on WORKFORCE DEVELOPMENT ASSISTANT Lab Order: Complete Blood Count; SPEC'M 05/08/16 19:55 Test: WHITE BLOOD COUNT; Value: 8.7; Range: 4.0-10.0; Units: K/mm3; Status: F Test: RED BLOOD COUNT; Value: 4.60; Range: 4.00-5.40; Units: M/mm3; Status: F Test: HEMOGLOBIN; Value: 13.4; Range: 12.0-16.0; Units: g/dl; Status: F Test: HEMATOCRIT; Value: 40.4; Range: 36.0-47.0; Units: %; Status: F Test: MEAN CORPUSCULAR VOLUME; Value: 87.9; Range: 80.0-96.0; Units: fl; Status: F Test: MEAN CORPUSCULAR HEMOGLOBIN; Value: 29.1; Range: 27.0-33.0; Units: pg; Status: F Test: MEAN CORPUSCULAR HGB CONC; Value: 33.1; Range: 32.0-36.5; Units: g/dl; Status: F Test: RED CELL DISTRIBUTION WIDTH; Value: 14.2; Range: 11.5-14.5; Units: %; Status: F Test: PLATELET COUNT, AUTOMATED; Value: 270; Range: 150-450; Units: k/mm3; Status: F Lab Order: Drug Eval Toxicology ED Only; SPEC'M 05/08/16 19:55 Test: AMPHETAMINES LEVEL URINE; Value: NEGATIVE; Range: NEGATIVE; Status: F Test: BARBITURATES URINE; Value: NEGATIVE; Range: NEGATIVE; Status: F Test: BENZODIAZEPINES URINE; Value: NEGATIVE; Range: NEGATIVE; Status: F Test: CANNABINOIDS URINE; Value: NEGATIVE; Range: NEGATIVE; Status: F Test: COCAINE METABOLITE URINE; Value: NEGATIVE; Range: NEGATIVE; Status: F Test: METHADONE URINE; Value: NEGATIVE; Range: NEGATIVE; Status: F Test: OPIATES URINE; Value: NEGATIVE; Range: NEGATIVE; Status: F Test: TRICYCLIC ANTIDEPRESS URINE; Value: NEGATIVE; Range: NEGATIVE; Status: F Test Note: ; ALL PRESUMPTIVE POSITIVE FINDINGS ARE UNCONFIRMED NORMAL VALUES THRESHOLD IN NG/ML AMPHETAMINES 1000 METHAMPHETAMINES 1000 BARBITURATES 300 BENZODIAZEPINES 300 CANNABINOIDS (THC) 50 COCAINE METABOLITE 300 METHADONE 300 OPIATES 300 PHENCYCLIDINE 25 TRICYCLIC ANTIDEPRESSANTS 1000 RESULTS ARE FOR MEDICAL PURPOSES ONLY. ALL URINE SPECIMENS WILL BE SAVED FOR 3 DAYS. IF CONFIRMATION OF A PRESUMPTIVE POSTIVE SCREEN RESULT IS DESIRED, CALL CHEMISTRY ([phone]) AND REQUEST URINE TO BE SENT TO REFERENCE LAB. FOR A LIST OF CLOSELY RELATED COMPOUNDS PLEASE CALL THE LAB. Lab Order: Ethyl Alcohol (ethanol); SPEC'M 05/08/16 19:55 Test: ETHYL ALCOHOL (ETHANOL); Value: < 0.003; Range: 0.000-0.010; Units: %; Status: F Lab Order: HCG,Serum Qualitative; SPEC'M 05/08/16 19:55 Test: HCG, SERUM QUALITATIVE; Value: NEGATIVE; Range: NEGATIVE; Status: F Lab Order: Liver Profile; SPEC'M 05/08/16 19:55 Test: AST/SGOT; Value: 17; Range: 15-37; Units: U/L; Status: F Test: ALT/SGPT; Value: 29; Range: 12-78; Units: U/L; Status: F Test: ALKALINE PHOSPHATASE; Value: 94; Range: 45-117; Units: U/L; Status: F Test: BILIRUBIN,TOTAL; Value: 0.7; Range: 0.2-1.0; Units: MG/DL; Status: F Test: BILIRUBIN,DIRECT; Value: 0.1; Range: 0.0-0.2; Units: MG/DL; Status: F Test: TOTAL PROTEIN; Value: 7.4; Range: 6.4-8.2; Units: GM/DL; Status: F Test: ALBUMIN; Value: 4.0; Range: 3.2-5.2; Units: GM/DL; Status: F Test: ALBUMIN/GLOBULIN RATIO; Value: 1.18; Range: 1.00-1.93; Status: F Lab Order: Salicylate Level; SPEC'M 05/08/16 19:55 Test: SALICYLATE LEVEL; Value: < 1.7; Range: 5.0-30.0; Abnormal: Below low normal; Units: MG/DL; Status: F Lab Order: Thyroid Stimulating Hormone; SPEC'M 05/08/16 19:55 Test: THYROID STIMULATING HORMONE; Value: 1.670; Range: 0.358-3.740; Units: uIU/ML; Status: F Outcome: 21:16 Decision to Hospitalize by Provider. pc 22:34 Discharge Assessment: Patient awake, alert and oriented x 3. No cognitive and/or rw1 functional deficits noted. Patient verbalized understanding of disposition instructions. patient administered narcotics - no. The following High Risk Discharge criteria are identified: Admitted to Psych accompanied by tech, via wheelchair, with chart. Condition: stable. No special radiology studies were completed. Property removed, inventory done, secured in belongings bag- given to [facility] staff. 22:57 Patient left the ED. rw1 Signatures: Dispatcher [employer] EDMS Sang Stein MD MD pc LaFontaine, Jon, Jamie Morales Robert, LPN LPN rw1 Master De Souza RosemaryRN RN rs3 Haven Lynn, OWNER/PHOTOGRAPHER OWNER/PHOTOGRAPHER elp Matice,Rita,RN RN tm5 Chart Complete MTDD
[2016-05-11 06:37] VITALS: BP 117/68
[2016-05-11] MEDS: OXcarbazepine 150 MG TAB PO SCH ×2 (09:18→20:14)
[2016-05-11] MEDS: QUEtiapine FUMARATE 12.5 MG HALF-TAB PO SCH ×3 (09:18→20:14)
[2016-05-11] MEDS: VENLAFAXINE **XR** 75MG CAPSULE PO SCH (09:18)
[2016-05-11] MEDS: KETOCONAZOLE 2% CREAM TOP SCH ×2 (09:19→20:14)
[2016-05-11] MEDS: OLANZapine ORAL DISINTEGRATING TAB 5MG PO PRN ×2 (09:19→19:43)
[2016-05-11] MEDS: NICOTINE 7 MG/24 HR TRANSDERMAL TD SCH (10:37)
[2016-05-11] MEDS: ACETAMINOPHEN TAB 650MG DOSE (2X325MG) PO PRN (10:37)
[2016-05-11 18:17] VITALS: BP 102/61
[2016-05-11] MEDS: lamoTRIgine 25 MG TAB PO SCH (20:14)
[2016-05-11] MEDS: traZODone 50 MG TAB PO SCH (22:46)
[2016-05-12 06:06] VITALS: BP 123/76
[2016-05-12] MEDS: KETOCONAZOLE 2% CREAM TOP SCH ×2 (08:41→21:00)
[2016-05-12] MEDS: VENLAFAXINE **XR** 75MG CAPSULE PO SCH (08:41)
[2016-05-12] MEDS: OXcarbazepine 150 MG TAB PO SCH ×2 (08:41→20:51)
[2016-05-12] MEDS: NICOTINE 7 MG/24 HR TRANSDERMAL TD SCH (08:41)
[2016-05-12] MEDS: QUEtiapine FUMARATE 12.5 MG HALF-TAB PO SCH ×3 (08:41→20:51)
[2016-05-12] MEDS: OLANZapine ORAL DISINTEGRATING TAB 5MG PO PRN ×2 (12:05→19:46)
[2016-05-12 18:00] VITALS: BP 115/75
[2016-05-12] MEDS: lamoTRIgine 25 MG TAB PO SCH (20:51)
[2016-05-12] MEDS: traZODone 50 MG TAB PO SCH (21:21)
--- NOTE | 2016-05-12 23:44 | IPNPDOC ---
[facility] Progress Note Progress Note DATE OF SERVICE: 05/11/16 SUBJECTIVE: Patient continues to display labile mood on the unit. She is focused on reaching her boyfriend by telephone and is agitated when unable to reach him. She continues to report significant depression. Sleep is improving. Appetite is within normal limits. Patient is medically compliant and denies medication side effects. Patient denies current suicidal ideations and homicidal ideations. Perceptual issues noted or reported. OBJECTIVE: VITAL SIGNS: See below. CURRENT MEDICATIONS: See below. MENTAL STATUS EXAMINATION: Patient is a [21]-year old female, who is [ noticeably agitated], [looks stated age]. Speech: Is [RRR and spontaneous]. Thought processes: [illogical, Goal directed]. Thought content: [speaking with her boyfriend]. Abnormal or psychotic thoughts: [No perceptual issues noted] Judgment: [poor] Insight: [ poor] Oriented to: [ place and person.] Recent and Remote Memory: [Immediate, short-term and long-term memory is intact] . Attention Span and Concentration: [ fair]. Fund of knowledge: [fair]. Mood: [depressed ]. Affect: [depressed ]. ASSESSMENT: 1. Major depressive disorder, severe, recurrent. PLAN: -------- 1. Continue with Trileptal 150 mg by mouth twice a day. 2. Continue Lamictal 25 mg by mouth daily and increase until therapeutic dose. with plan to then taper Trileptal and discontinue. 3. Effexor XR 75 mg by mouth every a.m. 4. Seroquel 12.5 mg by mouth three times a day. 5. Trazodone 150 mg by mouth nightly. TIME SPENT: [30] minutes. Vital Signs Vital Signs Date Time Temp Pulse Resp B/P Pulse Ox O2 Delivery O2 Flow Rate FiO2 05/12/16 18:00 98.6 71 16 115/75 05/10/16 06:00 Room Air Current Medications Current Medications Medications (Trade) Dose Ordered Sig/Naida Route PRN Reason Start Time Stop Time Status Last Admin Dose Admin Acetaminophen (Tylenol) 650 mg Q6HP PRN PO HEADACHE or DISCOMFORT 05/08/16 22:15 06/07/16 22:14 05/11/16 10:37 Al Hydrox/Mg Hydrox/Simethicone (Mylanta) 30 ml Q4HP PRN PO HEARTBURN/INDIGESTION 05/08/16 22:15 06/07/16 22:14 Home Med (Med Rec Complete!) ASDIRECTED XX 05/08/16 21:45 05/08/16 22:31 DC Ketoconazole (Nizoral) 1 dose BID TOP 05/09/16 09:00 06/08/16 08:59 05/12/16 08:41 Lamotrigine (LaMICtal) 25 mg QHS PO 05/10/16 21:00 06/09/16 20:59 05/12/16 20:51 Magnesium Hydroxide (Milk Of Magnesia) 30 ml DAILYPRN PRN PO CONSTIPATION 05/08/16 22:15 06/07/16 22:14 Nicotine (Nicoderm Cq 7 Mg) 1 patch DAILY TD 05/11/16 09:00 06/10/16 08:59 05/12/16 08:41 Olanzapine (ZyPREXA ZYDIS) 5 mg Q6HP PRN PO ANXIETY/AGITATION 05/09/16 10:15 06/08/16 10:14 05/12/16 19:46 Oxcarbazepine (Trileptal) 150 mg BID PO 05/09/16 09:00 06/08/16 08:59 05/12/16 20:51 Quetiapine Fumarate (SEROquel) 12.5 mg TID@,, PO 05/09/16 08:00 06/08/16 07:59 05/12/16 20:51 Trazodone HCl (Desyrel) 150 mg QHS PO 05/08/16 21:00 06/07/16 20:59 05/12/16 21:21 Venlafaxine HCl (Effexor Xr) 75 mg QAM PO 05/09/16 09:00 06/08/16 08:59 05/12/16 08:41 Allergies Coded Allergies: No Known Allergies (Unverified , 02/22/16) NATALIE MEDEROS MD May 12, 2016 23:44
--- NOTE | 2016-05-12 23:44 | IPNPDOC ---
[facility] Progress Note Progress Note DATE OF SERVICE: 05/12/16 SUBJECTIVE: Patient continues to be focused on talking to her boyfriend by phone. She is irritable and easily agitated. She continues to report significant depression. Patient denies headache, chest pain, abdominal pain and reports urination and bowel movements are within normal limits. Patient is medication compliant and denies medication side effects. Patient denies current suicidal ideations and homicidal ideations. Perceptual issues noted or reported. OBJECTIVE: VITAL SIGNS: See below. CURRENT MEDICATIONS: See below. MENTAL STATUS EXAMINATION: Patient is a [21]-year old female, who is [ noticeably agitated], [looks stated age]. Speech: Is [RRR and spontaneous]. Thought processes: [illogical, Goal directed]. Thought content: [focused on peaking with her boyfriend]. Abnormal or psychotic thoughts: [No perceptual issues noted] Judgment: [poor] Insight: [ poor] Oriented to: [ place and person.] Recent and Remote Memory: [Immediate, short-term and long-term memory is intact] . Attention Span and Concentration: [ fair]. Fund of knowledge: [fair]. Mood: [depressed ]. Affect: [depressed ]. ASSESSMENT: 1. Major depressive disorder, severe, recurrent. PLAN: -------- 1. Continue with Trileptal 150 mg by mouth twice a day. 2. Continue Lamictal 25 mg by mouth daily and increase until therapeutic dose. with plan to then taper Trileptal and discontinue. 3. Effexor XR 75 mg by mouth every a.m. 4. Seroquel 12.5 mg by mouth three times a day. 5. Trazodone 150 mg by mouth nightly. TIME SPENT: [30] minutes. Vital Signs Vital Signs Date Time Temp Pulse Resp B/P Pulse Ox O2 Delivery O2 Flow Rate FiO2 05/12/16 18:00 98.6 71 16 115/75 05/10/16 06:00 Room Air Current Medications Current Medications Medications (Trade) Dose Ordered Sig/Naida Route PRN Reason Start Time Stop Time Status Last Admin Dose Admin Acetaminophen (Tylenol) 650 mg Q6HP PRN PO HEADACHE or DISCOMFORT 05/08/16 22:15 06/07/16 22:14 05/11/16 10:37 Al Hydrox/Mg Hydrox/Simethicone (Mylanta) 30 ml Q4HP PRN PO HEARTBURN/INDIGESTION 05/08/16 22:15 06/07/16 22:14 Home Med (Med Rec Complete!) ASDIRECTED XX 05/08/16 21:45 05/08/16 22:31 DC Ketoconazole (Nizoral) 1 dose BID TOP 05/09/16 09:00 06/08/16 08:59 05/12/16 08:41 Lamotrigine (LaMICtal) 25 mg QHS PO 05/10/16 21:00 06/09/16 20:59 05/12/16 20:51 Magnesium Hydroxide (Milk Of Magnesia) 30 ml DAILYPRN PRN PO CONSTIPATION 05/08/16 22:15 06/07/16 22:14 Nicotine (Nicoderm Cq 7 Mg) 1 patch DAILY TD 05/11/16 09:00 06/10/16 08:59 05/12/16 08:41 Olanzapine (ZyPREXA ZYDIS) 5 mg Q6HP PRN PO ANXIETY/AGITATION 05/09/16 10:15 06/08/16 10:14 05/12/16 19:46 Oxcarbazepine (Trileptal) 150 mg BID PO 05/09/16 09:00 06/08/16 08:59 05/12/16 20:51 Quetiapine Fumarate (SEROquel) 12.5 mg TID@08,,21 PO 05/09/16 08:00 06/08/16 07:59 05/12/16 20:51 Trazodone HCl (Desyrel) 150 mg QHS PO 05/08/16 21:00 06/07/16 20:59 05/12/16 21:21 Venlafaxine HCl (Effexor Xr) 75 mg QAM PO 05/09/16 09:00 06/08/16 08:59 05/12/16 08:41 Allergies Coded Allergies: No Known Allergies (Unverified , 02/22/16) NATALIE MEDEROS MD May 12, 2016 23:44
[2016-05-13 06:00] VITALS: BP 84/48
[2016-05-13] MEDS: OXcarbazepine 150 MG TAB PO SCH ×2 (08:26→20:17)
[2016-05-13] MEDS: NICOTINE 7 MG/24 HR TRANSDERMAL TD SCH (08:26)
[2016-05-13] MEDS: KETOCONAZOLE 2% CREAM TOP SCH ×2 (08:26→20:17)
[2016-05-13] MEDS: VENLAFAXINE **XR** 75MG CAPSULE PO SCH (08:26)
[2016-05-13] MEDS: QUEtiapine FUMARATE 12.5 MG HALF-TAB PO SCH ×3 (08:26→21:04)
[2016-05-13] MEDS: ACETAMINOPHEN TAB 650MG DOSE (2X325MG) PO PRN ×2 (08:27→21:41)
[2016-05-13 08:59] VITALS: BP 128/73
[2016-05-13] MEDS ORDERED: **PENDING PPD ENTRY XX SCH (09:00)
[2016-05-13] MEDS ORDERED: TUBERCULIN PPD 5 UNITS/0.1 ML ID SCH (10:00)
--- NOTE | 2016-05-13 11:04 | REP ---
Portable right wrist four views : There is no fracture or dislocation. Mineralization and joint spaces are normal. There are no calcifications or foreign bodies. Impression: Negative portable right wrist . Signed by Champ Diane MD 05/11/2016 04:36 P
[2016-05-13] MEDS: OLANZapine ORAL DISINTEGRATING TAB 5MG PO PRN ×2 (14:48→21:04)
--- NOTE | 2016-05-13 15:38 | IPNPDOC ---
[facility] Progress Note Progress Note DATE OF SERVICE: 05/13/16 HISTORY: Ms Gallegos is a 21-year-old white female with long history of major depressive disorder reporting severe since childhood. The patient has been readmitted after a few days of discharge. The patient became very depressed and suicidal. The patient was unable to contract for safety. When she was discharged she could not return home since she has an order of protection and she cannot see her baby without supervision so she went to live with a friend. The patient stated that her boyfriend has invited another girl to live in their house with him and the baby. She is telling her that he is going to get full custody of the baby and she says that he is changing his plans. She has no support in [place]. She came recently from another state to live with her boyfriend and their child. MEDICATIONS: - Trileptal 150 mg by mouth twice a day - Effexor XR 75 mg by mouth every a.m. - Seroquel 12.5 mg by mouth three times a day - Trazodone 150 mg by mouth at bedtime for insomnia - Lamictal 25 mg by mouth at bedtime - Zyprexa 5 mg by mouth every 6 hours as needed for anxiety SUBJECTIVE: "My moods have been very up and down today" OBJECTIVE: The patient's mood remains depressed. She is concerned about her feelings of anger towards others stating she "feels like punching someone" today. She is easily frustrated with others, especially when speaking with her boyfriend on the phone. She is sleeping well until about 3 AM when she wakes up from nightmares then can not get back to sleep. Her appetite is normal. She denies any side effects from her medications. MENTAL STATUS EXAM: The patient is dressed in [facility]. She is resting in bed upon entering but sits up for the interview. She makes fair eye contact throughout the interview and her expression is mostly sad. Her attitude is cooperative. She is drowsy but oriented x 3. Speech is at a normal rate and in soft volume. Her moods have fluctuated today from being happy to very depressed after talking about her boyfriend and child with a nurse. Affect is consistent with mood. Thought process and content is impaired. Denies hallucinations and delusions. She is able to contract for her safety in the unit, but admits she did have thoughts of self-harm earlier. Insight and judgement are impaired. She is able to concentrate on calculations given to her. Immediate, recent, and remote memory intact. Intellectual functioning is fair. ASSESSMENT: Major depressive disorder, severe, recurrent. PLAN: 1. Continue with Trileptal 150 mg by mouth twice a day 2. Continue with Effexor XR 75 mg by mouth every a.m. 3. Continue with Seroquel 12.5 mg by mouth three times a day 4. Discontinue Trazodone 150 mg by mouth at bedtime 5. Begin Seroquel 100 mg by mouth at bedtime for insomnia 6. Continue Lamictal 25 mg by mouth at bedtime and increase until therapeutic dose, with plan to then taper Trileptal and discontinue. 7. Continue Zyprexa 5 mg by mouth every 6 hours as needed for anxiety 8. Continue medication management and individual and group therapy. Vital Signs Vital Signs Date Time Temp Pulse Resp B/P Pulse Ox O2 Delivery O2 Flow Rate FiO2 05/13/16 08:59 98.6 86 16 128/73 97 Room Air Current Medications Current Medications Medications (Trade) Dose Ordered Sig/Naida Route PRN Reason Start Time Stop Time Status Last Admin Dose Admin Acetaminophen (Tylenol) 650 mg Q6HP PRN PO HEADACHE or DISCOMFORT 05/08/16 22:15 06/07/16 22:14 05/13/16 08:27 Al Hydrox/Mg Hydrox/Simethicone (Mylanta) 30 ml Q4HP PRN PO HEARTBURN/INDIGESTION 05/08/16 22:15 06/07/16 22:14 Home Med (Med Rec Complete!) ASDIRECTED XX 05/08/16 21:45 05/08/16 22:31 DC Ketoconazole (Nizoral) 1 dose BID TOP 05/09/16 09:00 05/13/16 10:00 DC 05/13/16 08:26 Ketoconazole (Nizoral) 1 dose BID TOP 05/13/16 10:00 06/08/16 08:59 Lamotrigine (LaMICtal) 25 mg QHS PO 05/10/16 21:00 06/09/16 20:59 05/12/16 20:51 Magnesium Hydroxide (Milk Of Magnesia) 30 ml DAILYPRN PRN PO CONSTIPATION 05/08/16 22:15 06/07/16 22:14 Nicotine (Nicoderm Cq 7 Mg) 1 patch DAILY TD 05/11/16 09:00 06/10/16 08:59 05/13/16 08:26 Non-Formulary Medication ( See Comment Field Below ) SEE COMMENTS SECTION 1T@10 XX 05/15/16 10:00 05/15/16 10:00 DC Non-Formulary Medication ( See Comment Field Below ) SEE LABEL COMMENTS DAILY XX 05/13/16 09:00 05/13/16 12:15 DC Non-Formulary Medication ( See Comment Field Below ) SEE LABEL COMMENTS SECTION 1T@10 XX 05/15/16 10:00 05/15/16 23:59 Olanzapine (ZyPREXA ZYDIS) 5 mg Q6HP PRN PO ANXIETY/AGITATION 05/09/16 10:15 06/08/16 10:14 05/12/16 19:46 Oxcarbazepine (Trileptal) 150 mg BID PO 05/09/16 09:00 06/08/16 08:59 05/13/16 08:26 Quetiapine Fumarate (SEROquel) 12.5 mg TID@08,13,21 PO 05/09/16 08:00 06/08/16 07:59 05/13/16 13:03 Quetiapine Fumarate (SEROquel) 100 mg QHS PO 05/13/16 21:00 06/12/16 20:59 Trazodone HCl (Desyrel) 150 mg QHS PO 05/08/16 21:00 05/13/16 09:44 DC 05/12/16 21:21 Tuberculin PPD (Aplisol, Ppd) 5 units 1T@10 ID 05/13/16 10:00 05/13/16 23:59 Venlafaxine HCl (Effexor Xr) 75 mg QAM PO 05/09/16 09:00 06/08/16 08:59 05/13/16 08:26 Allergies Coded Allergies: No Known Allergies (Unverified , 02/22/16) GME ATTESTATION My preceptor for this patient encounter was physically present in the building during the encounter and was fully available. As needed, all aspects of the patient interview, examination, medical decision making process, and medical care plan development were reviewed and approved by the preceptor. Preceptor is aware and concurs with the plan as stated in the body of this note and will attest to such by his/her cosignature. MIGUELINA DAMON May 13, 2016 15:34 MIGUELINA DAMON May 13, 2016 15:34
[2016-05-13 18:00] VITALS: BP 119/66
[2016-05-13] MEDS: lamoTRIgine 25 MG TAB PO SCH (20:17)
[2016-05-13] MEDS: QUEtiapine FUMARATE 100 MG TAB PO SCH (21:04)
[2016-05-14 06:48] VITALS: BP 150/95
[2016-05-14] MEDS: OXcarbazepine 150 MG TAB PO SCH ×2 (08:17→20:42)
[2016-05-14] MEDS: QUEtiapine FUMARATE 12.5 MG HALF-TAB PO SCH ×3 (08:17→20:41)
[2016-05-14] MEDS: NICOTINE 7 MG/24 HR TRANSDERMAL TD SCH (08:17)
[2016-05-14] MEDS: VENLAFAXINE **XR** 75MG CAPSULE PO SCH (08:17)
[2016-05-14] MEDS: KETOCONAZOLE 2% CREAM TOP SCH ×2 (08:18→20:42)
[2016-05-14] MEDS ORDERED: TUBERCULIN PPD 5 UNITS/0.1 ML ID ONE (10:00)
--- NOTE | 2016-05-14 14:29 | IPNPDOC ---
[facility] Progress Note Progress Note DATE OF SERVICE: 05/14/16 HISTORY: Ms Gallegos is a 21-year-old white female with long history of major depressive disorder reporting severe since childhood. The patient has been readmitted after a few days of discharge. The patient became very depressed and suicidal. The patient was unable to contract for safety. When she was discharged she could not return home since she has an order of protection and she cannot see her baby without supervision so she went to live with a friend. The patient stated that her boyfriend has invited another girl to live in their house with him and the baby. She is telling her that he is going to get full custody of the baby and she says that he is changing his plans. She has no support in [place]. She came recently from another state to live with her boyfriend and their child. MEDICATIONS: - Trileptal 150 mg by mouth twice a day - Effexor XR 75 mg by mouth every a.m. - Seroquel 12.5 mg by mouth three times a day - Seroquel 100 mg by mouth at bedtime for insomnia - Lamictal 25 mg by mouth at bedtime - Zyprexa 5 mg by mouth every 6 hours as needed for anxiety SUBJECTIVE: "I feel very angry" OBJECTIVE: The patient's mood continues to be depressed and angry. She had an outburst of anger last night when she realized that the woman she has been contacting to check in on her daughter blocked the hospital phone numbers. This caused her to start punching and kicking the wall, as well as crying uncontrollably. She was given Zyprexa which helped her calm down. She admits that for the past few days she has been calling about every hour however, no one answers. She has also not been in contact with her boyfriend in a few days. She was able to sleep well last night with the trazodone after she calmed down and doesn't recall any nightmares. Her appetite is fair. She denies any side effects from her medications. MENTAL STATUS EXAM: The patient is dressed in [facility]. She is sleeping in bed upon entering the room. She does sit up to be interviewed and makes fair eye contact. Her facial expressions remain sad and restricted. Her attitude is cooperative. She is drowsy but oriented x 3. Speech is at a normal rate and volume. Her mood is depressed and angry at the fact she has no means of communication with those caring for her daughter. Affect is consistent with mood. Thought process and content is impaired. Denies hallucinations and delusions. She is able to contract for her safety in the unit, but states she does have thoughts of self-harm today. Insight and judgement remain impaired. Attention and concentration intact. Immediate, recent, and remote memory intact. Intellectual functioning remains fair. ASSESSMENT: Major depressive disorder, severe, recurrent. PLAN: 1. Continue with Trileptal 150 mg by mouth twice a day 2. Continue with Effexor XR 75 mg by mouth every a.m. 3. Continue with Seroquel 12.5 mg by mouth three times a day 5. Continue Seroquel 100 mg by mouth at bedtime for insomnia 6. Continue Lamictal 25 mg by mouth at bedtime and increase until therapeutic dose, with plan to then taper Trileptal and discontinue. 7. Continue Zyprexa 5 mg by mouth every 6 hours as needed for anxiety 8. Continue medication management and individual and group therapy. Vital Signs Vital Signs Date Time Temp Pulse Resp B/P Pulse Ox O2 Delivery O2 Flow Rate FiO2 05/14/16 09:45 Room Air 05/14/16 06:48 98.0 73 16 150/95 05/13/16 08:59 97 Current Medications Current Medications Medications (Trade) Dose Ordered Sig/Naida Route PRN Reason Start Time Stop Time Status Last Admin Dose Admin Acetaminophen (Tylenol) 650 mg Q6HP PRN PO HEADACHE or DISCOMFORT 05/08/16 22:15 06/07/16 22:14 05/13/16 21:41 Al Hydrox/Mg Hydrox/Simethicone (Mylanta) 30 ml Q4HP PRN PO HEARTBURN/INDIGESTION 05/08/16 22:15 06/07/16 22:14 Home Med (Med Rec Complete!) ASDIRECTED XX 05/08/16 21:45 05/08/16 22:31 DC Ketoconazole (Nizoral) 1 dose BID TOP 05/09/16 09:00 05/13/16 10:00 DC 05/13/16 08:26 Ketoconazole (Nizoral) 1 dose BID TOP 05/13/16 10:00 06/08/16 08:59 05/14/16 08:18 Lamotrigine (LaMICtal) 25 mg QHS PO 05/10/16 21:00 06/09/16 20:59 05/13/16 20:17 Magnesium Hydroxide (Milk Of Magnesia) 30 ml DAILYPRN PRN PO CONSTIPATION 05/08/16 22:15 06/07/16 22:14 Nicotine (Nicoderm Cq 7 Mg) 1 patch DAILY TD 05/11/16 09:00 06/10/16 08:59 05/14/16 08:17 Non-Formulary Medication ( See Comment Field Below ) SEE COMMENTS SECTION 1T@10 XX 05/15/16 10:00 05/15/16 10:00 DC Non-Formulary Medication ( See Comment Field Below ) SEE LABEL COMMENTS DAILY XX 05/13/16 09:00 05/13/16 12:15 DC Non-Formulary Medication ( See Comment Field Below ) SEE LABEL COMMENTS SECTION 1T@10 XX 05/15/16 10:00 05/15/16 23:59 Olanzapine (ZyPREXA ZYDIS) 5 mg Q6HP PRN PO ANXIETY/AGITATION 05/09/16 10:15 06/08/16 10:14 05/13/16 21:04 Oxcarbazepine (Trileptal) 150 mg BID PO 05/09/16 09:00 06/08/16 08:59 05/14/16 08:17 Quetiapine Fumarate (SEROquel) 12.5 mg TID@08,13,21 PO 05/09/16 08:00 06/08/16 07:59 05/14/16 12:13 Quetiapine Fumarate (SEROquel) 100 mg QHS PO 05/13/16 21:00 06/12/16 20:59 05/13/16 21:04 Trazodone HCl (Desyrel) 150 mg QHS PO 05/08/16 21:00 05/13/16 09:44 DC 05/12/16 21:21 Tuberculin PPD (Aplisol, Ppd) 5 units 1T@10 ID 05/13/16 10:00 05/13/16 23:59 DC 05/13/16 15:27 Venlafaxine HCl (Effexor Xr) 75 mg QAM PO 05/09/16 09:00 06/08/16 08:59 05/14/16 08:17 Allergies Coded Allergies: No Known Allergies (Unverified , 02/22/16) GME ATTESTATION GME ATTESTATION My preceptor for this patient encounter was physically present in the building during the encounter and was fully available. As needed, all aspects of the patient interview, examination, medical decision making process, and medical care plan development were reviewed and approved by the preceptor. Preceptor is aware and concurs with the plan as stated in the body of this note and will attest to such by his/her cosignature. MIGUELINA DAMON May 14, 2016 14:29
[2016-05-14 18:00] VITALS: BP 116/67
[2016-05-14] MEDS: lamoTRIgine 25 MG TAB PO SCH (20:42)
[2016-05-14] MEDS: QUEtiapine FUMARATE 100 MG TAB PO SCH (21:38)
[2016-05-15 06:39] VITALS: BP 97/53
[2016-05-15] MEDS: VENLAFAXINE **XR** 75MG CAPSULE PO SCH (07:58)
[2016-05-15] MEDS: OXcarbazepine 150 MG TAB PO SCH ×2 (07:58→20:11)
[2016-05-15] MEDS: NICOTINE 7 MG/24 HR TRANSDERMAL TD SCH (07:58)
[2016-05-15] MEDS: QUEtiapine FUMARATE 12.5 MG HALF-TAB PO SCH ×3 (07:58→21:10)
[2016-05-15] MEDS: KETOCONAZOLE 2% CREAM TOP SCH ×2 (07:59→20:12)
[2016-05-15] MEDS ORDERED: PPD DOCUMENTATION ENTRY MISC XX SCH ×2 (10:00)
--- NOTE | 2016-05-15 10:47 | IPNPDOC ---
[facility] Progress Note Progress Note DATE OF SERVICE: 05/15/16 HISTORY: Ms Gallegos is a 21-year-old white female with long history of major depressive disorder reporting severe since childhood. The patient has been readmitted after a few days of discharge. The patient became very depressed and suicidal. The patient was unable to contract for safety. When she was discharged she could not return home since she has an order of protection and she cannot see her baby without supervision so she went to live with a friend. The patient stated that her boyfriend has invited another girl to live in their house with him and the baby. She is telling her that he is going to get full custody of the baby and she says that he is changing his plans. She has no support in [place]. She came recently from another state to live with her boyfriend and their child. MEDICATIONS: - Trileptal 150 mg by mouth twice a day - Effexor XR 75 mg by mouth every a.m. - Seroquel 12.5 mg by mouth three times a day - Seroquel 100 mg by mouth at bedtime for insomnia - Lamictal 25 mg by mouth at bedtime - Zyprexa 5 mg by mouth every 6 hours as needed for anxiety SUBJECTIVE: "My mood is better today, I'm not so angry" OBJECTIVE: The patient's mood continues to be depressed and angry although not as intense as yesterday. She still has had no contact with her boyfriend or the woman that lives below their apartment whom she calls to get updates on her daughter, but states she has a friend who is trying to make contact possible. She was able to sleep soundly throughout the night, feels slightly drowsy this morning. She has been attempting to attend the therapeutic activities of the unit. Her appetite remains fair. She denies any side effects from her medications. MENTAL STATUS EXAM: The patient is dressed in [facility] and is sleeping in bed upon entering the room. She props her head up to be interviewed and maintains fair eye contact. Her facial expressions continue to be mostly sad. Her attitude is cooperative. She is drowsy, oriented x 3. Speech is soft and slow. Her mood remains depressed and angry with very little improvement since yesterday. Affect is consistent with mood. Thought process and content is impaired. Denies hallucinations and delusions. She is able to contract for her safety in the unit but states she does continue to have thoughts of self-harm however, they are not as intense as yesterday. Insight and judgement remain impaired. Attention and concentration intact. Immediate, recent, and remote memory intact. Intellectual functioning is fair. ASSESSMENT: Major depressive disorder, severe, recurrent. PLAN: 1. Continue with Trileptal 150 mg by mouth twice a day 2. Continue with Effexor XR 75 mg by mouth every a.m. 3. Continue with Seroquel 12.5 mg by mouth three times a day 5. Continue Seroquel 100 mg by mouth at bedtime for insomnia 6. Increase Lamictal 25 mg by mouth to twice a day, will continue to slowly increase until therapeutic dose is achieved with plan to then taper Trileptal. 7. Continue Zyprexa 5 mg by mouth every 6 hours as needed for anxiety 8. Continue medication management and individual and group therapy. Vital Signs Vital Signs Date Time Temp Pulse Resp B/P Pulse Ox O2 Delivery O2 Flow Rate FiO2 05/15/16 06:39 97.8 79 18 97/53 05/14/16 09:45 Room Air 05/13/16 08:59 97 Current Medications Current Medications Medications (Trade) Dose Ordered Sig/Naida Route PRN Reason Start Time Stop Time Status Last Admin Dose Admin Acetaminophen (Tylenol) 650 mg Q6HP PRN PO HEADACHE or DISCOMFORT 05/08/16 22:15 06/07/16 22:14 05/13/16 21:41 Al Hydrox/Mg Hydrox/Simethicone (Mylanta) 30 ml Q4HP PRN PO HEARTBURN/INDIGESTION 05/08/16 22:15 06/07/16 22:14 Home Med (Med Rec Complete!) ASDIRECTED XX 05/08/16 21:45 05/08/16 22:31 DC Ketoconazole (Nizoral) 1 dose BID TOP 05/09/16 09:00 05/13/16 10:00 DC 05/13/16 08:26 Ketoconazole (Nizoral) 1 dose BID TOP 05/13/16 10:00 06/08/16 08:59 05/15/16 07:59 Lamotrigine (LaMICtal) 25 mg QHS PO 05/10/16 21:00 06/09/16 20:59 05/14/16 20:42 Magnesium Hydroxide (Milk Of Magnesia) 30 ml DAILYPRN PRN PO CONSTIPATION 05/08/16 22:15 06/07/16 22:14 Nicotine (Nicoderm Cq 7 Mg) 1 patch DAILY TD 05/11/16 09:00 06/10/16 08:59 05/15/16 07:58 Non-Formulary Medication ( See Comment Field Below ) SEE COMMENTS SECTION 1T@10 XX 05/15/16 10:00 05/15/16 10:00 DC Non-Formulary Medication ( See Comment Field Below ) SEE LABEL COMMENTS DAILY XX 05/13/16 09:00 05/13/16 12:15 DC Non-Formulary Medication ( See Comment Field Below ) SEE LABEL COMMENTS SECTION 1T@10 XX 05/15/16 10:00 05/15/16 23:59 Olanzapine (ZyPREXA ZYDIS) 5 mg Q6HP PRN PO ANXIETY/AGITATION 05/09/16 10:15 06/08/16 10:14 05/13/16 21:04 Oxcarbazepine (Trileptal) 150 mg BID PO 05/09/16 09:00 06/08/16 08:59 05/15/16 07:58 Quetiapine Fumarate (SEROquel) 12.5 mg TID@08,,21 PO 05/09/16 08:00 06/08/16 07:59 05/15/16 07:58 Quetiapine Fumarate (SEROquel) 100 mg QHS PO 05/13/16 21:00 06/12/16 20:59 05/14/16 21:38 Trazodone HCl (Desyrel) 150 mg QHS PO 05/08/16 21:00 05/13/16 09:44 DC 05/12/16 21:21 Tuberculin PPD (Aplisol, Ppd) 5 units 1T@10 ID 05/13/16 10:00 05/13/16 23:59 DC 05/13/16 15:27 Venlafaxine HCl (Effexor Xr) 75 mg QAM PO 05/09/16 09:00 06/08/16 08:59 05/15/16 07:58 Allergies Coded Allergies: No Known Allergies (Unverified , 02/22/16) GME ATTESTATION My preceptor for this patient encounter was physically present in the building during the encounter and was fully available. As needed, all aspects of the patient interview, examination, medical decision making process, and medical care plan development were reviewed and approved by the preceptor. Preceptor is aware and concurs with the plan as stated in the body of this note and will attest to such by his/her cosignature. MIGUELINA DAMON May 15, 2016 10:47
[2016-05-15] MEDS: OLANZapine ORAL DISINTEGRATING TAB 5MG PO PRN (13:47)
[2016-05-15 18:00] VITALS: BP 113/61
[2016-05-15] MEDS: LAMOTRIGINE 25 MG PO SCH (20:43)
[2016-05-15] MEDS: QUEtiapine FUMARATE 100 MG TAB PO SCH (21:10)
[2016-05-16 06:42] VITALS: BP 111/68
[2016-05-16] MEDS: NICOTINE 7 MG/24 HR TRANSDERMAL TD SCH (09:06)
[2016-05-16] MEDS: QUEtiapine FUMARATE 12.5 MG HALF-TAB PO SCH ×3 (09:06→20:34)
[2016-05-16] MEDS: VENLAFAXINE **XR** 75MG CAPSULE PO SCH (09:06)
[2016-05-16] MEDS: KETOCONAZOLE 2% CREAM TOP SCH ×2 (09:06→20:34)
[2016-05-16] MEDS: LAMOTRIGINE 25 MG PO SCH ×2 (09:06→20:34)
[2016-05-16] MEDS: OXcarbazepine 150 MG TAB PO SCH ×2 (09:06→20:34)
[2016-05-16] MEDS: OLANZapine ORAL DISINTEGRATING TAB 5MG PO PRN (11:03)
[2016-05-16] MEDS: ACETAMINOPHEN TAB 650MG DOSE (2X325MG) PO PRN (13:28)
--- NOTE | 2016-05-16 13:57 | IPNPDOC ---
[facility] Progress Note Progress Note DATE OF SERVICE: 05/16/16 HISTORY: Ms Gallegos is a 21-year-old white female with long history of major depressive disorder reporting severe since childhood. The patient has been readmitted after a few days of discharge. The patient became very depressed and suicidal. The patient was unable to contract for safety. When she was discharged she could not return home since she has an order of protection and she cannot see her baby without supervision so she went to live with a friend. The patient stated that her boyfriend has invited another girl to live in their house with him and the baby. She is telling her that he is going to get full custody of the baby and she says that he is changing his plans. She has no support in [place]. She came recently from another state to live with her boyfriend and their child. MEDICATIONS: - Trileptal 150 mg by mouth twice a day - Effexor XR 75 mg by mouth every a.m. - Seroquel 12.5 mg by mouth three times a day - Seroquel 100 mg by mouth at bedtime for insomnia - Lamictal 25 mg by mouth twice a day - Zyprexa 5 mg by mouth every 6 hours as needed for anxiety SUBJECTIVE: "I just want to be home" OBJECTIVE: The patient's mood continues to be depressed and agitated. She states she just wants to go home and feels ready to be discharged, however she is unable to control her emotions and becomes very angry at times. She had an episode today where she started to cry uncontrollably and began kicking and punching the nash. She did take her Zyprexa which ultimately helped calm her down. She remains very focused on contacting her boyfriend although currently she has no means to get in touch with him. She is sleeping well through out the night. Her appetite is fair. She denies any side effects from her medications. MENTAL STATUS EXAM: The patient is dressed in [facility] and is resting in bed upon entering the room. She sits up in bed to be interviewed and maintains fair eye contact. Facial restrictions remain mostly sad. Her attitude is cooperative. She is alert and oriented x 3. Speech is at a normal rate and rhythm. Her mood remains depressed and agitated. Affect is consistent with mood. Thought process and content remain impaired. Denies hallucinations and delusions. She is able to contract for her safety in the unit. Insight and judgement are impaired. Attention span and concentration intact. Immediate, recent, and remote memory intact. Intellectual functioning remains fair. ASSESSMENT: Major depressive disorder, severe, recurrent. PLAN: 1. Continue with Trileptal 150 mg by mouth twice a day 2. Continue with Effexor XR 75 mg by mouth every a.m. 3. Continue with Seroquel 12.5 mg by mouth three times a day 5. Continue Seroquel 100 mg by mouth at bedtime for insomnia 6. Continue with Lamictal 25 mg by mouth twice a day and increase until therapeutic dose, with plan to then taper Trileptal. 7. Continue Zyprexa 5 mg by mouth every 6 hours as needed for anxiety 8. Continue medication management and individual and group therapy. Vital Signs Vital Signs Date Time Temp Pulse Resp B/P Pulse Ox O2 Delivery O2 Flow Rate FiO2 05/16/16 06:42 97.3 101 16 111/68 05/14/16 09:45 Room Air 05/13/16 08:59 97 Current Medications Current Medications Medications (Trade) Dose Ordered Sig/Naida Route PRN Reason Start Time Stop Time Status Last Admin Dose Admin Acetaminophen (Tylenol) 650 mg Q6HP PRN PO HEADACHE or DISCOMFORT 05/08/16 22:15 06/07/16 22:14 05/13/16 21:41 Al Hydrox/Mg Hydrox/Simethicone (Mylanta) 30 ml Q4HP PRN PO HEARTBURN/INDIGESTION 05/08/16 22:15 06/07/16 22:14 Home Med (Med Rec Complete!) ASDIRECTED XX 05/08/16 21:45 05/08/16 22:31 DC Ketoconazole (Nizoral) 1 dose BID TOP 05/09/16 09:00 05/13/16 10:00 DC 05/13/16 08:26 Ketoconazole (Nizoral) 1 dose BID TOP 05/13/16 10:00 06/08/16 08:59 05/16/16 09:06 Lamotrigine (LaMICtal) 25 mg BID PO 05/15/16 21:00 06/14/16 20:59 05/16/16 09:06 Lamotrigine (LaMICtal) 25 mg QHS PO 05/10/16 21:00 05/15/16 14:39 DC 05/14/16 20:42 Magnesium Hydroxide (Milk Of Magnesia) 30 ml DAILYPRN PRN PO CONSTIPATION 05/08/16 22:15 06/07/16 22:14 Nicotine (Nicoderm Cq 7 Mg) 1 patch DAILY TD 05/11/16 09:00 06/10/16 08:59 05/16/16 09:06 Non-Formulary Medication ( See Comment Field Below ) SEE COMMENTS SECTION 1T@10 XX 05/15/16 10:00 05/15/16 10:00 DC Non-Formulary Medication ( See Comment Field Below ) SEE LABEL COMMENTS DAILY XX 05/13/16 09:00 05/13/16 12:15 DC Non-Formulary Medication ( See Comment Field Below ) SEE LABEL COMMENTS SECTION 1T@10 XX 05/15/16 10:00 05/15/16 23:59 DC 05/15/16 10:00 Olanzapine (ZyPREXA ZYDIS) 5 mg Q6HP PRN PO ANXIETY/AGITATION 05/09/16 10:15 06/08/16 10:14 05/16/16 11:03 Oxcarbazepine (Trileptal) 150 mg BID PO 05/09/16 09:00 06/08/16 08:59 05/16/16 09:06 Quetiapine Fumarate (SEROquel) 12.5 mg TID@08,13,21 PO 05/09/16 08:00 06/08/16 07:59 05/16/16 09:06 Quetiapine Fumarate (SEROquel) 100 mg QHS PO 05/13/16 21:00 06/12/16 20:59 05/15/16 21:10 Trazodone HCl (Desyrel) 150 mg QHS PO 05/08/16 21:00 05/13/16 09:44 DC 05/12/16 21:21 Tuberculin PPD (Aplisol, Ppd) 5 units 1T@10 ID 05/13/16 10:00 05/13/16 23:59 DC 05/13/16 15:27 Venlafaxine HCl (Effexor Xr) 75 mg QAM PO 05/09/16 09:00 06/08/16 08:59 05/16/16 09:06 Allergies Coded Allergies: No Known Allergies (Unverified , 02/22/16) GME ATTESTATION My preceptor for this patient encounter was physically present in the building during the encounter and was fully available. As needed, all aspects of the patient interview, examination, medical decision making process, and medical care plan development were reviewed and approved by the preceptor. Preceptor is aware and concurs with the plan as stated in the body of this note and will attest to such by his/her cosignature. MIGUELINA DAMON May 16, 2016 13:40
[2016-05-16 18:00] VITALS: BP 120/67
[2016-05-16] MEDS: QUEtiapine FUMARATE 100 MG TAB PO SCH (20:34)
[2016-05-17 06:30] VITALS: BP 110/57
[2016-05-17] MEDS: NICOTINE 7 MG/24 HR TRANSDERMAL TD SCH (08:37)
[2016-05-17] MEDS: LAMOTRIGINE 25 MG PO SCH ×2 (08:37→20:16)
[2016-05-17] MEDS: OXcarbazepine 150 MG TAB PO SCH ×2 (08:37→20:16)
[2016-05-17] MEDS: QUEtiapine FUMARATE 12.5 MG HALF-TAB PO SCH ×3 (08:37→20:16)
[2016-05-17] MEDS: VENLAFAXINE **XR** 75MG CAPSULE PO SCH (08:37)
[2016-05-17] MEDS: KETOCONAZOLE 2% CREAM TOP SCH ×2 (08:38→20:18)
[2016-05-17 18:00] VITALS: BP 123/75
[2016-05-17] MEDS: ACETAMINOPHEN TAB 650MG DOSE (2X325MG) PO PRN (18:15)
--- NOTE | 2016-05-17 18:52 | IPN ---
DATE: 05/17/2016 A 21-year-old white female with a long history of depression since childhood. The patient has been readmitted. After a few days of discharge, the patient became very depressed and suicidal. The patient was unable to contract for safety. At the moment of discharge, she could not return at home to live with her boyfriend and child since an Order of Protection was placed against the patient during the past admission. The patient reported she was feeling like smothering the baby, so this decision was made by the wellness guide. The patient has no support in the [facility]. The patient came to live with her boyfriend and baby recently. MEDICATIONS: - Trileptal 150 mg by mouth twice a day - Effexor XR 75 mg by mouth every morning - Seroquel 12.5 mg by mouth three times a day - Seroquel 100 mg by mouth nightly as needed for insomnia - Lamictal 25 mg by mouth twice a day - Zyprexa as needed for anxiety and agitation. SUBJECTIVE: "I wish I could go home." OBJECTIVE: The patient continues to have frequent and significant mood fluctuations throughout the day. At times, she gets tearful and mildly agitated, especially when she has to deal with the fact that she is no longer able to return home to live with her boyfriend and the baby. She has been having difficulties with her support system bringing the baby and she wants to see her. There is no evidence of psychotic symptoms. No auditory or visual hallucinations or delusions. MENTAL STATUS EXAMINATION: Patient dressed in [facility]. The patient is anxious and labile, at times tearful and has fluctuations of anxiety and mood throughout the day. Most of these fluctuations are reactive to the interactions with the environment. Her mood remains depressed. Thought process and content remain impaired. No evidence of delusions or hallucinations. Insight and judgment is limited. ASSESSMENT: Major depressive disorder, severe, recurrent. PLAN: 1. Continue with Trileptal 150 mg by mouth twice a day. 2. Continue Effexor XR 75 mg by mouth every morning. 3. Continue with Seroquel 12.5 mg by mouth three times a day. 4. Continue Seroquel 100 mg by mouth nightly as needed for insomnia. 5. Continue with Lamictal 25 mg by mouth twice a day until therapeutic dose is reached and then Trileptal will be tapered down. 6. Continue with medication management, individual and group therapy.
[2016-05-17] MEDS: QUEtiapine FUMARATE 100 MG TAB PO SCH (21:29)
[2016-05-18 06:45] VITALS: BP 105/75
[2016-05-18] MEDS: KETOCONAZOLE 2% CREAM TOP SCH ×2 (08:47→21:00)
[2016-05-18] MEDS: QUEtiapine FUMARATE 12.5 MG HALF-TAB PO SCH ×3 (08:47→20:34)
[2016-05-18] MEDS: VENLAFAXINE **XR** 75MG CAPSULE PO SCH (08:48)
[2016-05-18] MEDS: OXcarbazepine 150 MG TAB PO SCH ×2 (08:48→20:34)
[2016-05-18] MEDS: NICOTINE 7 MG/24 HR TRANSDERMAL TD SCH (08:48)
[2016-05-18] MEDS: LAMOTRIGINE 25 MG PO SCH ×2 (08:48→20:34)
[2016-05-18] MEDS: ACETAMINOPHEN TAB 650MG DOSE (2X325MG) PO PRN ×2 (09:24→21:22)
[2016-05-18 18:00] VITALS: BP 124/76
[2016-05-18] MEDS: OLANZapine ORAL DISINTEGRATING TAB 5MG PO PRN (19:45)
[2016-05-18] MEDS: QUEtiapine FUMARATE 100 MG TAB PO SCH (21:21)
[2016-05-19 06:56] VITALS: BP 111/70
[2016-05-19] MEDS: NICOTINE 7 MG/24 HR TRANSDERMAL TD SCH (08:33)
[2016-05-19] MEDS: LAMOTRIGINE 25 MG PO SCH ×2 (08:33→20:01)
[2016-05-19] MEDS: VENLAFAXINE **XR** 75MG CAPSULE PO SCH (08:33)
[2016-05-19] MEDS: KETOCONAZOLE 2% CREAM TOP SCH ×2 (08:33→20:01)
[2016-05-19] MEDS: QUEtiapine FUMARATE 12.5 MG HALF-TAB PO SCH ×3 (08:33→20:01)
[2016-05-19] MEDS: OXcarbazepine 150 MG TAB PO SCH ×2 (08:33→20:01)
[2016-05-19] MEDS: OLANZapine ORAL DISINTEGRATING TAB 5MG PO PRN ×2 (13:44→19:42)
[2016-05-19 18:00] VITALS: BP 113/68
[2016-05-19] MEDS: QUEtiapine FUMARATE 100 MG TAB PO SCH (20:01)
[2016-05-20] MEDS: LAMOTRIGINE 25 MG PO SCH (08:34)
[2016-05-20] MEDS: QUEtiapine FUMARATE 12.5 MG HALF-TAB PO SCH ×3 (08:34→20:31)
[2016-05-20] MEDS: VENLAFAXINE **XR** 75MG CAPSULE PO SCH (08:34)
[2016-05-20] MEDS: NICOTINE 7 MG/24 HR TRANSDERMAL TD SCH (08:34)
[2016-05-20] MEDS: OXcarbazepine 150 MG TAB PO SCH ×2 (08:34→20:31)
[2016-05-20] MEDS: KETOCONAZOLE 2% CREAM TOP SCH ×2 (08:37→20:31)
[2016-05-20] MEDS: OLANZapine ORAL DISINTEGRATING TAB 5MG PO PRN ×2 (10:02→20:32)
[2016-05-20] MEDS: ACETAMINOPHEN TAB 650MG DOSE (2X325MG) PO PRN (11:35)
--- NOTE | 2016-05-20 14:44 | IPNPDOC ---
[facility] Progress Note Progress Note DATE OF SERVICE: 05/20/16 HISTORY: Ms Gallegos is a 21-year-old white female with long history of major depressive disorder reporting severe since childhood. The patient has been readmitted after a few days of discharge. The patient became very depressed and suicidal. The patient was unable to contract for safety. When she was discharged she could not return home since she has an order of protection and she cannot see her baby without supervision so she went to live with a friend. The patient stated that her boyfriend has invited another girl to live in their house with him and the baby. She is telling her that he is going to get full custody of the baby and she says that he is changing his plans. She has no support in [place]. She came recently from another state to live with her boyfriend and their child. VITAL SIGNS: See below. CURRENT MEDICATIONS: - Lamictal 25 mg by mouth every morning - Lamictal 50 mg daily at bedtime by mouth - Trileptal 150 mg by mouth twice a day - Seroquel 100 mg by mouth daily at bedtime - Seroquel 12.5 mg 3 times a day by mouth - Zyprexa 5 mg every 6 hours when necessary by mouth anxiety and agitation - Effexor XR 75 mg by mouth every morning SUBJECTIVE: "I just want to be home. I'm upset today." OBJECTIVE: She states that she feels ready to be discharged and just wants to go home. The patient's mood continues to be depressed and agitated, although earlier this morning she was feeling much happier. She received a phone call from her boyfriend that changed her mood because she was unable to see her baby. She continues to remain very focused on being able to contact her boyfriend although he will currently not answer the phone. She states she is sleeping well through the night, her appetite is fair, and she denies any side effects to her medications. She has requested use of her street clothes. MENTAL STATUS EXAM: The patient is dressed in hospital clothing and is sitting in her room eating lunch. She sits upright to be interviewed and maintains good eye contact, and is cooperative with exam. She is alert and oriented 3. Her speech is soft and she talks and normal rate. Her mood is currently depressed and upset. Affect is consistent with her mood. She has linear and goal directed thought processes that are focused on her baby and family. She denies hallucinations or delusions. She is able to contract for her safety on the unit. Insight and judgment are impaired. Attention span and concentration is intact. Immediate, recent, and remote memory are intact. Intellectual functioning remains fair. ASSESSMENT: 1. Major depressive disorder, severe, recurrent. PLAN: 1. Continue with Trileptal 150 mg by mouth twice a day. 2. Continue with Effexor XR 75 mg by mouth every morning. 3. Continue with Seroquel 12.5 mg by mouth 3 times a day. 4. Continue with Seroquel 100 mg by mouth daily at bedtime. 5. Will increase Lamictal from 25 mg by mouth twice a day to 25 mg every morning and 50 mg daily at bedtime. 6. Continue Zyprexa 5 mg by mouth every 6 hours when necessary anxiety 7. Order has been written for her to have her street clothes. 8. Continue medication management along with individual and group therapies. Vital Signs Vital Signs Date Time Temp Pulse Resp B/P Pulse Ox O2 Delivery O2 Flow Rate FiO2 05/19/16 18:00 99.1 100 16 113/68 05/14/16 09:45 Room Air Current Medications Current Medications Medications (Trade) Dose Ordered Sig/Naida Route PRN Reason Start Time Stop Time Status Last Admin Dose Admin Acetaminophen (Tylenol) 650 mg Q6HP PRN PO HEADACHE or DISCOMFORT 05/08/16 22:15 06/07/16 22:14 05/20/16 11:35 Al Hydrox/Mg Hydrox/Simethicone (Mylanta) 30 ml Q4HP PRN PO HEARTBURN/INDIGESTION 05/08/16 22:15 06/07/16 22:14 Home Med (Med Rec Complete!) ASDIRECTED XX 05/08/16 21:45 05/08/16 22:31 DC Ketoconazole (Nizoral) 1 dose BID TOP 05/09/16 09:00 05/13/16 10:00 DC 05/13/16 08:26 Ketoconazole (Nizoral) 1 dose BID TOP 05/13/16 10:00 06/08/16 08:59 05/20/16 08:37 Lamotrigine (LaMICtal) 25 mg BID PO 05/15/16 21:00 05/20/16 09:43 DC 05/20/16 08:34 Lamotrigine (LaMICtal) 25 mg QAM PO 05/21/16 09:00 06/20/16 08:59 Lamotrigine (LaMICtal) 25 mg QHS PO 05/10/16 21:00 05/15/16 14:39 DC 05/14/16 20:42 Lamotrigine (LaMICtal) 50 mg QHS PO 05/20/16 21:00 06/19/16 20:59 Magnesium Hydroxide (Milk Of Magnesia) 30 ml DAILYPRN PRN PO CONSTIPATION 05/08/16 22:15 06/07/16 22:14 Nicotine (Nicoderm Cq 7 Mg) 1 patch DAILY TD 05/11/16 09:00 06/10/16 08:59 05/20/16 08:34 Non-Formulary Medication ( See Comment Field Below ) SEE COMMENTS SECTION 1T@10 XX 05/15/16 10:00 05/15/16 10:00 DC Non-Formulary Medication ( See Comment Field Below ) SEE LABEL COMMENTS DAILY XX 05/13/16 09:00 05/13/16 12:15 DC Non-Formulary Medication ( See Comment Field Below ) SEE LABEL COMMENTS SECTION 1T@10 XX 05/15/16 10:00 05/15/16 23:59 DC 05/15/16 10:00 Olanzapine (ZyPREXA ZYDIS) 5 mg Q6HP PRN PO ANXIETY/AGITATION 05/09/16 10:15 06/08/16 10:14 05/20/16 10:02 Oxcarbazepine (Trileptal) 150 mg BID PO 05/09/16 09:00 06/08/16 08:59 05/20/16 08:34 Quetiapine Fumarate (SEROquel) 12.5 mg TID@08,, PO 05/09/16 08:00 06/08/16 07:59 05/20/16 12:10 Quetiapine Fumarate (SEROquel) 100 mg QHS PO 05/13/16 21:00 06/12/16 20:59 05/19/16 20:01 Trazodone HCl (Desyrel) 150 mg QHS PO 05/08/16 21:00 05/13/16 09:44 DC 05/12/16 21:21 Tuberculin PPD (Aplisol, Ppd) 5 units 1T@10 ID 05/13/16 10:00 05/13/16 23:59 DC 05/13/16 15:27 Venlafaxine HCl (Effexor Xr) 75 mg QAM PO 05/09/16 09:00 06/08/16 08:59 05/20/16 08:34 Allergies Coded Allergies: No Known Allergies (Unverified , 02/22/16) GME ATTESTATION GME ATTESTATION My preceptor for this patient encounter was Dr. Chakraborty, who was physically present in the building during the encounter and was fully available. As needed , all aspects of the patient interview, examination, medical decision making process, and medical care plan development were reviewed and approved by the preceptor. Preceptor is aware and concurs with the plan as stated in the body of this note and will attest to such by his cosignature. LEANDRO TORRES May 20, 2016 14:44 LEANDRO TORRES May 20, 2016 14:44
[2016-05-20 18:32] VITALS: BP 126/70
[2016-05-20] MEDS: QUEtiapine FUMARATE 100 MG TAB PO SCH (20:31)
[2016-05-20] MEDS: lamoTRIgine 25 MG TAB PO SCH (20:32)
[2016-05-21 06:37] VITALS: BP 117/56
[2016-05-21] MEDS: KETOCONAZOLE 2% CREAM TOP SCH ×2 (09:00→20:11)
[2016-05-21] MEDS: VENLAFAXINE **XR** 75MG CAPSULE PO SCH (09:04)
[2016-05-21] MEDS: OXcarbazepine 150 MG TAB PO SCH ×2 (09:04→20:10)
[2016-05-21] MEDS: QUEtiapine FUMARATE 12.5 MG HALF-TAB PO SCH ×3 (09:04→20:10)
[2016-05-21] MEDS: lamoTRIgine 25 MG TAB PO SCH ×2 (09:04→20:10)
[2016-05-21] MEDS: NICOTINE 7 MG/24 HR TRANSDERMAL TD SCH (09:04)
--- NOTE | 2016-05-21 11:36 | IPNPDOC ---
[facility] Progress Note Progress Note DATE OF SERVICE: 05/21/16 HISTORY: Ms Gallegos is a 21-year-old white female with long history of major depressive disorder reporting severe since childhood. The patient has been readmitted after a few days of discharge. The patient became very depressed and suicidal. The patient was unable to contract for safety. When she was discharged she could not return home since she has an order of protection and she cannot see her baby without supervision so she went to live with a friend. The patient stated that her boyfriend has invited another girl to live in their house with him and the baby. She is telling her that he is going to get full custody of the baby and she says that he is changing his plans. She has no support in [place]. She came recently from another state to live with her boyfriend and their child. VITAL SIGNS: See below. CURRENT MEDICATIONS: -Lamictal 25 mg by mouth every morning -Lamictal 50 mg by mouth daily at bedtime -Trileptal 150 mg by mouth twice a day -Seroquel 100 mg by mouth daily at bedtime -Seroquel 12.5 mg 3 times a day by mouth -Zyprexa 5 mg every 6 hours when necessary anxiety and agitation -Effexor XR 75 mg by mouth every morning SUBJECTIVE: "I'm okay, I just want to go home. I'm tired of the hospital." OBJECTIVE: She continues to state that she is ready for discharge and just wants to go home, while intermittently expressing interest to continue treatment at [facility] long-[place]. Her mood continues to be depressed with intermittent agitation. She expresses remorse for wanting to hurt her baby and she continues to be focused on contacting her boyfriend and being able to visit her baby while inpatient. The inability to talk to him causes her to become extremely depressed. She continues to sleep well stating she slept about 11 hours last night. Her appetite is fair and she denies any side effects to medications. MENTAL STATUS EXAMINATION: Patient was laying in room on bed dressed in hospital clothing. She sits slouched over throughout the interview and has poor eye contact. She is overall cooperative with the exam but seems distracted and lethargic. She is alert and oriented 3. She is talkative speaks a slow rate her tone is soft and she is occasionally hesitant to respond. Her mood is discouraged and depressed and affect is consistent with mood. She is tearful at times. She continues to have linear and goal-directed thought processes focused on both her baby and her boyfriend as well as fixing their relationship. She admits that her thoughts continue to be focused on worrying about her current relationship status and her baby, yet she states that she is hopeful. She is currently able to contract for safety on the unit. She denies delusions or hallucinations. Insight and judgment continued to be impaired. Attention and concentration are mildly impaired. Immediate, recent, and remote memory are intact. Intellectual function remains fair. ASSESSMENT: Major depressive disorder, severe, recurrent. MANAGEMENT PLAN: 1. Continue with Trileptal 150 mg by mouth twice a day. 2. Continue with Effexor XR 75 mg by mouth every morning. 3. Continue with Seroquel 12.5 mg by mouth 3 times a day. 4. Continue Seroquel 100 mg by mouth daily at bedtime. 5. Continue with Lamictal 25 mg by mouth every morning and 50 mg by mouth daily at bedtime. 6. Continue Zyprexa 5 mg by mouth every 6 hours when necessary anxiety. 7. Continue medication management along with individual and group therapies. Vital Signs Vital Signs Date Time Temp Pulse Resp B/P Pulse Ox O2 Delivery O2 Flow Rate FiO2 05/21/16 06:37 98.0 61 18 117/56 Current Medications Current Medications Medications (Trade) Dose Ordered Sig/Naida Route PRN Reason Start Time Stop Time Status Last Admin Dose Admin Acetaminophen (Tylenol) 650 mg Q6HP PRN PO HEADACHE or DISCOMFORT 05/08/16 22:15 06/07/16 22:14 05/20/16 11:35 Al Hydrox/Mg Hydrox/Simethicone (Mylanta) 30 ml Q4HP PRN PO HEARTBURN/INDIGESTION 05/08/16 22:15 06/07/16 22:14 Home Med (Med Rec Complete!) ASDIRECTED XX 05/08/16 21:45 05/08/16 22:31 DC Ketoconazole (Nizoral) 1 dose BID TOP 05/09/16 09:00 05/13/16 10:00 DC 05/13/16 08:26 Ketoconazole (Nizoral) 1 dose BID TOP 05/13/16 10:00 06/08/16 08:59 05/20/16 20:31 Lamotrigine (LaMICtal) 25 mg BID PO 05/15/16 21:00 05/20/16 09:43 DC 05/20/16 08:34 Lamotrigine (LaMICtal) 25 mg QAM PO 05/21/16 09:00 06/20/16 08:59 05/21/16 09:04 Lamotrigine (LaMICtal) 25 mg QHS PO 05/10/16 21:00 05/15/16 14:39 DC 05/14/16 20:42 Lamotrigine (LaMICtal) 50 mg QHS PO 05/20/16 21:00 06/19/16 20:59 05/20/16 20:32 Magnesium Hydroxide (Milk Of Magnesia) 30 ml DAILYPRN PRN PO CONSTIPATION 05/08/16 22:15 06/07/16 22:14 Nicotine (Nicoderm Cq 7 Mg) 1 patch DAILY TD 05/11/16 09:00 06/10/16 08:59 05/21/16 09:04 Non-Formulary Medication ( See Comment Field Below ) SEE COMMENTS SECTION 1T@10 XX 05/15/16 10:00 05/15/16 10:00 DC Non-Formulary Medication ( See Comment Field Below ) SEE LABEL COMMENTS DAILY XX 05/13/16 09:00 05/13/16 12:15 DC Non-Formulary Medication ( See Comment Field Below ) SEE LABEL COMMENTS SECTION 1T@10 XX 05/15/16 10:00 05/15/16 23:59 DC 05/15/16 10:00 Olanzapine (ZyPREXA ZYDIS) 5 mg Q6HP PRN PO ANXIETY/AGITATION 05/09/16 10:15 06/08/16 10:14 05/20/16 20:32 Oxcarbazepine (Trileptal) 150 mg BID PO 05/09/16 09:00 06/08/16 08:59 05/21/16 09:04 Quetiapine Fumarate (SEROquel) 12.5 mg TID@08,13,21 PO 05/09/16 08:00 06/08/16 07:59 05/21/16 09:04 Quetiapine Fumarate (SEROquel) 100 mg QHS PO 05/13/16 21:00 06/12/16 20:59 05/20/16 20:31 Trazodone HCl (Desyrel) 150 mg QHS PO 05/08/16 21:00 05/13/16 09:44 DC 05/12/16 21:21 Tuberculin PPD (Aplisol, Ppd) 5 units 1T@10 ID 05/13/16 10:00 05/13/16 23:59 DC 05/13/16 15:27 Venlafaxine HCl (Effexor Xr) 75 mg QAM PO 05/09/16 09:00 06/08/16 08:59 05/21/16 09:04 Allergies Coded Allergies: No Known Allergies (Unverified , 02/22/16) GME ATTESTATION GME ATTESTATION My preceptor for this patient encounter was Dr. Chakraborty, who was physically present in the building during the encounter and was fully available. As needed , all aspects of the patient interview, examination, medical decision making process, and medical care plan development were reviewed and approved by the preceptor. Preceptor is aware and concurs with the plan as stated in the body of this note and will attest to such by his cosignature. LEANDRO TORRES May 21, 2016 11:36
[2016-05-21] MEDS: OLANZapine ORAL DISINTEGRATING TAB 5MG PO PRN (14:13)
[2016-05-21] MEDS: QUEtiapine FUMARATE 100 MG TAB PO SCH (21:30)
[2016-05-21 22:07] VITALS: BP 124/79
[2016-05-22 06:54] VITALS: BP 126/72
[2016-05-22] MEDS: lamoTRIgine 25 MG TAB PO SCH ×2 (08:44→20:30)
[2016-05-22] MEDS: OXcarbazepine 150 MG TAB PO SCH ×2 (08:44→20:30)
[2016-05-22] MEDS: QUEtiapine FUMARATE 12.5 MG HALF-TAB PO SCH (08:44)
[2016-05-22] MEDS: VENLAFAXINE **XR** 75MG CAPSULE PO SCH (08:44)
[2016-05-22] MEDS: KETOCONAZOLE 2% CREAM TOP SCH ×2 (08:45→20:31)
[2016-05-22] MEDS: NICOTINE 7 MG/24 HR TRANSDERMAL TD SCH (08:45)
--- NOTE | 2016-05-22 11:44 | IPNPDOC ---
[facility] Progress Note Progress Note DATE OF SERVICE: 05/22/16 HISTORY: Ms Gallegos is a 21-year-old white female with long history of major depressive disorder reporting severe since childhood. The patient has been readmitted after a few days of discharge. The patient became very depressed and suicidal. The patient was unable to contract for safety. When she was discharged she could not return home since she has an order of protection and she cannot see her baby without supervision so she went to live with a friend. The patient stated that her boyfriend has invited another girl to live in their house with him and the baby. She is telling her that he is going to get full custody of the baby and she says that he is changing his plans. She has no support in [place]. She came recently from another state to live with her boyfriend and their child. VITAL SIGNS: See below. CURRENT MEDICATIONS: -Lamictal 25 mg by mouth every morning -Lamictal 50 mg by mouth daily at bedtime -Trileptal 150 mg by mouth twice a day -Seroquel 100 mg by mouth daily at bedtime -Seroquel 12.5 mg by mouth 3 times a day when necessary anxiety -Zyprexa 5 mg by mouth every 6 hours when necessary anxiety and agitation -Effexor XR 75 mg by mouth every morning SUBJECTIVE: "I feel drowsy and stressed today, and a little depressed." OBJECTIVE: She continues to show interest in [facility] ( [facility] for long-term treatment. She admits that her mood continues to express that she feels depressed but indicates today that she is feeling tired. She admits not being able to contact her boyfriend is causing her stress. She admits to decreased sleep last night. She is eating well. She denies any side effects to medications. MENTAL STATUS EXAMINATION: Patient is sitting upright just in her own clothing for the entirety exam. She maintains good eye contact and is cooperative. She is alert and oriented 3. She talks slowly in a soft voice. She admits that her mood is "iffy, stressed and sad." Her affect is consistent with her mood. She continues to have linear and goal-directed thought processes focused on getting back with her baby and be in contact with her boyfriend. She is currently able to contract for safety on the unit. She denies delusions or hallucinations. Insight and judgment continued to be impaired. Attention and concentration are mildly impaired. Immediate, recent, and remote memory are intact. Intellectual function remains fair. ASSESSMENT: 1. Major depressive disorder, severe, recurrent MANAGEMENT PLAN: 1. Continue Lamictal 25 mg by mouth every morning 2. Continue Lamictal 50 mg by mouth daily at bedtime 3. Continue Trileptal 150 mg by mouth twice a day 4. Continue Seroquel 100 mg by mouth daily at bedtime 5. Seroquel 12.5 mg by mouth 3 times a day has been changed to when necessary for anxiety. 6. Continue Zyprexa 5 mg by mouth every 68 when necessary anxiety and agitation 7. Continue Effexor XR 75 mg by mouth every morning 8. Continue medication management along with individual and group therapies. Vital Signs Vital Signs Date Time Temp Pulse Resp B/P Pulse Ox O2 Delivery O2 Flow Rate FiO2 05/22/16 06:54 97.6 68 20 126/72 Current Medications Current Medications Acetaminophen (Tylenol) 650 mg Q6HP PRN PO HEADACHE or DISCOMFORT Last administered on 05/20/16 11:35; Start 05/08/16 at 22:15; Stop 06/07/16 at 22:14 Al Hydrox/Mg Hydrox/Simethicone (Mylanta) 30 ml Q4HP PRN PO HEARTBURN/ INDIGESTION; Start 05/08/16 at 22:15; Stop 06/07/16 at 22:14 Home Med (Med Rec Complete!) ASDIRECTED XX ; Start 05/08/16 at 21:45; Stop at 22:31; Status DC Ketoconazole (Nizoral) 1 dose BID TOP Last administered on 05/13/16 08:26; Start 05/09/16 at 09:00; Stop 05/13/16 at 10:00; Status DC Ketoconazole (Nizoral) 1 dose BID TOP Last administered on 05/21/16 20:11; Start 05/13/16 at 10:00; Stop 06/08/16 at 08:59 Lamotrigine (LaMICtal) 25 mg BID PO Last administered on 05/20/16 08:34; Start 05/15/16 at 21:00; Stop 05/20/16 at 09:43; Status DC Lamotrigine (LaMICtal) 25 mg QAM PO Last administered on 05/22/16 08:44; Start 05/21/16 at 09:00; Stop 06/20/16 at 08:59 Lamotrigine (LaMICtal) 25 mg QHS PO Last administered on 05/14/16 20:42; Start 05/10/16 at 21:00; Stop 05/15/16 at 14:39; Status DC Lamotrigine (LaMICtal) 50 mg QHS PO Last administered on 05/21/16 20:10; Start 05/20/16 at 21:00; Stop 06/19/16 at 20:59 Magnesium Hydroxide (Milk Of Magnesia) 30 ml DAILYPRN PRN PO CONSTIPATION; Start 05/08/16 at 22:15; Stop 06/07/16 at 22:14 Nicotine (Nicoderm Cq 7 Mg) 1 patch DAILY TD Last administered on 05/22/16 08: 45; Start 05/11/16 at 09:00; Stop 06/10/16 at 08:59 Non-Formulary Medication ( See Comment Field Below ) SEE COMMENTS SECTION 1T @10 XX ; Start 05/15/16 at 10:00; Stop 05/15/16 at 10:00; Status DC Non-Formulary Medication ( See Comment Field Below ) SEE LABEL COMMENTS DAILY XX ; Start 05/13/16 at 09:00; Stop 05/13/16 at 12:15; Status DC Non-Formulary Medication ( See Comment Field Below ) SEE LABEL COMMENTS SECTION 1T@10 XX Last administered on 05/15/16 10:00; Start 05/15/16 at 10:00; Stop 05/15/16 at 23:59; Status DC Olanzapine (ZyPREXA ZYDIS) 5 mg Q6HP PRN PO ANXIETY/AGITATION Last administered on 05/21/16 14:13; Start 05/09/16 at 10:15; Stop 06/08/16 at 10:14 Oxcarbazepine (Trileptal) 150 mg BID PO Last administered on 05/22/16 08:44; Start 05/09/16 at 09:00; Stop 06/08/16 at 08:59 Quetiapine Fumarate (SEROquel) 12.5 mg TID@08,13,21 PO Last administered on 05/22 08:44; Start 05/09/16 at 08:00; Stop 05/22/16 at 10:13; Status DC Quetiapine Fumarate (SEROquel) 12.5 mg TIDP PRN PO ANXIETY; Start 05/22/16 at 10 :15; Stop 06/21/16 at 10:14 Quetiapine Fumarate (SEROquel) 100 mg QHS PO Last administered on 05/21/16 21: 30; Start 05/13/16 at 21:00; Stop 06/12/16 at 20:59 Trazodone HCl (Desyrel) 150 mg QHS PO Last administered on 05/12/16 21:21; Start 05/08/16 at 21:00; Stop 05/13/16 at 09:44; Status DC Tuberculin PPD (Aplisol, Ppd) 5 units 1T@10 ID Last administered on 05/13/16 15:27; Start 05/13/16 at 10:00; Stop 05/13/16 at 23:59; Status DC Venlafaxine HCl (Effexor Xr) 75 mg QAM PO Last administered on 05/22/16 08: 44; Start 05/09/16 at 09:00; Stop 06/08/16 at 08:59 Allergies Coded Allergies: No Known Allergies (Unverified , 02/22/16) GME ATTESTATION GME ATTESTATION My preceptor for this patient encounter was Dr. Chakraborty, who was physically present in the building during the encounter and was fully available. As needed , all aspects of the patient interview, examination, medical decision making process, and medical care plan development were reviewed and approved by the preceptor. Preceptor is aware and concurs with the plan as stated in the body of this note and will attest to such by his cosignature. LEANDRO TORRES May 22, 2016 11:44
[2016-05-22 18:29] VITALS: BP 110/63
[2016-05-22] MEDS: QUEtiapine FUMARATE 100 MG TAB PO SCH (21:22)
[2016-05-23] MEDS: ACETAMINOPHEN TAB 650MG DOSE (2X325MG) PO PRN ×3 (06:23→18:26)
[2016-05-23 07:33] VITALS: BP 123/81
[2016-05-23] MEDS: OXcarbazepine 150 MG TAB PO SCH ×2 (08:23→19:57)
[2016-05-23] MEDS: NICOTINE 7 MG/24 HR TRANSDERMAL TD SCH (08:23)
[2016-05-23] MEDS: lamoTRIgine 25 MG TAB PO SCH ×2 (08:23→19:57)
[2016-05-23] MEDS: VENLAFAXINE **XR** 75MG CAPSULE PO SCH (08:23)
[2016-05-23] MEDS: KETOCONAZOLE 2% CREAM TOP SCH ×2 (08:44→21:00)
[2016-05-23] MEDS: QUEtiapine FUMARATE 12.5 MG HALF-TAB PO PRN (12:32)
--- NOTE | 2016-05-23 14:46 | IPNPDOC ---
[facility] Progress Note Progress Note DATE OF SERVICE: 05/23/16 HISTORY: Ms Gallegos is a 21-year-old white female with long history of major depressive disorder reporting severe since childhood. The patient has been readmitted after a few days of discharge. The patient became very depressed and suicidal. The patient was unable to contract for safety. When she was discharged she could not return home since she has an order of protection and she cannot see her baby without supervision so she went to live with a friend. The patient stated that her boyfriend has invited another girl to live in their house with him and the baby. She is telling her that he is going to get full custody of the baby and she says that he is changing his plans. She has no support in [place]. She came recently from another state to live with her boyfriend and their child. VITAL SIGNS: See below. CURRENT MEDICATIONS: - Seroquel 12.5 mg by mouth 3 times a day when necessary anxiety - Seroquel 100 mg by mouth daily at bedtime - Lamictal 25 mg by mouth every morning - Lamictal 50 mg by mouth daily at bedtime - Trileptal 150 mg by mouth twice a day - Zyprexa 5 mg by mouth every 6 hours when necessary anxiety and agitation - Effexor XR 75 mg by mouth every morning SUBJECTIVE: "I feel anxious and a little sad." OBJECTIVE: She admits today to mixed feelings regarding long-term care at [facility] [place] [place] She states her moods continue to be mildly depressed and a little anxious today. She states she has not been able to contact her boyfriend which is adding to the stress. She denies issues with eating. Last night she states she slept until about 3 AM; waking up but eventually be able to get back to sleep which she described as "restless". She denies any medication side effects. MENTAL STATUS EXAMINATION: Patient sits upright for entire interview and is closed in hospital clothing. She was laying in bed reading a book. She maintains fair eye contact but is cooperative. She is alert and oriented 3. She talks slowly in a soft voice. She admits that her mood is anxious but hopeful. Her affect is consistent with her mood. She continues to have linear and goal-directed thought processes of his ongoing back with her baby and to be in contact with her boyfriend. She is currently able to contract safety on the unit. She denies delusions or hallucinations. Insight and judgment are continued to be impaired. Attention and concentration are mildly impaired. Immediate, recent, and remote memory are intact. Intellectual function remains fair. ASSESSMENT: 1. Major depressive disorder, severe, recurrent MANAGEMENT PLAN: 1. Continue Lamictal 25 mg by mouth every morning 2. Continue Lamictal 50 mg by mouth daily at bedtime. 3. Continue Trileptal 150 mg by mouth twice a day. 4. Continue Seroquel 100 mg by mouth daily at bedtime. 6. Continue Seroquel 12.5 mg by mouth 3 times a day when necessary anxiety. 7. Continue Zyprexa 5 mg by mouth every 6 hours when necessary anxiety and agitation. 8. Continue Effexor XR 75 mg by mouth every morning. 9. Continue medication management in addition to individual group therapies. Vital Signs Vital Signs Date Time Temp Pulse Resp B/P Pulse Ox O2 Delivery O2 Flow Rate FiO2 05/23/16 07:33 100.2 95 20 123/81 Current Medications Current Medications Acetaminophen (Tylenol) 650 mg Q6HP PRN PO HEADACHE or DISCOMFORT Last administered on 05/23/16 12:33; Start 05/08/16 at 22:15; Stop 06/07/16 at 22:14 Al Hydrox/Mg Hydrox/Simethicone (Mylanta) 30 ml Q4HP PRN PO HEARTBURN/ INDIGESTION; Start 05/08/16 at 22:15; Stop 06/07/16 at 22:14 Home Med (Med Rec Complete!) ASDIRECTED XX ; Start 05/08/16 at 21:45; Stop at 22:31; Status DC Ketoconazole (Nizoral) 1 dose BID TOP Last administered on 05/13/16 08:26; Start 05/09/16 at 09:00; Stop 05/13/16 at 10:00; Status DC Ketoconazole (Nizoral) 1 dose BID TOP Last administered on 05/22/16 20:31; Start 05/13/16 at 10:00; Stop 06/08/16 at 08:59 Lamotrigine (LaMICtal) 25 mg BID PO Last administered on 05/20/16 08:34; Start 05/15/16 at 21:00; Stop 05/20/16 at 09:43; Status DC Lamotrigine (LaMICtal) 25 mg QAM PO Last administered on 05/23/16 08:23; Start 05/21/16 at 09:00; Stop 06/20/16 at 08:59 Lamotrigine (LaMICtal) 25 mg QHS PO Last administered on 05/14/16 20:42; Start 05/10/16 at 21:00; Stop 05/15/16 at 14:39; Status DC Lamotrigine (LaMICtal) 50 mg QHS PO Last administered on 05/22/16 20:30; Start 05/20/16 at 21:00; Stop 06/19/16 at 20:59 Magnesium Hydroxide (Milk Of Magnesia) 30 ml DAILYPRN PRN PO CONSTIPATION; Start 05/08/16 at 22:15; Stop 06/07/16 at 22:14 Nicotine (Nicoderm Cq 7 Mg) 1 patch DAILY TD Last administered on 05/23/16 08: 23; Start 05/11/16 at 09:00; Stop 06/10/16 at 08:59 Non-Formulary Medication ( See Comment Field Below ) SEE COMMENTS SECTION 1T @10 XX ; Start 05/15/16 at 10:00; Stop 05/15/16 at 10:00; Status DC Non-Formulary Medication ( See Comment Field Below ) SEE LABEL COMMENTS DAILY XX ; Start 05/13/16 at 09:00; Stop 05/13/16 at 12:15; Status DC Non-Formulary Medication ( See Comment Field Below ) SEE LABEL COMMENTS SECTION 1T@10 XX Last administered on 05/15/16 10:00; Start 05/15/16 at 10:00; Stop 05/15/16 at 23:59; Status DC Olanzapine (ZyPREXA ZYDIS) 5 mg Q6HP PRN PO ANXIETY/AGITATION Last administered on 05/21/16 14:13; Start 05/09/16 at 10:15; Stop 06/08/16 at 10:14 Oxcarbazepine (Trileptal) 150 mg BID PO Last administered on 05/23/16 08:23; Start 05/09/16 at 09:00; Stop 06/08/16 at 08:59 Quetiapine Fumarate (SEROquel) 12.5 mg TID@08,13,21 PO Last administered on 05/22 08:44; Start 05/09/16 at 08:00; Stop 05/22/16 at 10:13; Status DC Quetiapine Fumarate (SEROquel) 12.5 mg TIDP PRN PO ANXIETY Last administered on 05/23/16 12:32; Start 05/22/16 at 10:15; Stop 06/21/16 at 10:14 Quetiapine Fumarate (SEROquel) 100 mg QHS PO Last administered on 05/22/16 21: 22; Start 05/13/16 at 21:00; Stop 06/12/16 at 20:59 Trazodone HCl (Desyrel) 150 mg QHS PO Last administered on 05/12/16 21:21; Start 05/08/16 at 21:00; Stop 05/13/16 at 09:44; Status DC Tuberculin PPD (Aplisol, Ppd) 5 units 1T@10 ID Last administered on 05/13/16 15:27; Start 05/13/16 at 10:00; Stop 05/13/16 at 23:59; Status DC Venlafaxine HCl (Effexor Xr) 75 mg QAM PO Last administered on 05/23/16 08: 23; Start 05/09/16 at 09:00; Stop 06/08/16 at 08:59 Allergies Coded Allergies: No Known Allergies (Unverified , 02/22/16) GME ATTESTATION GME ATTESTATION My preceptor for this patient encounter was Dr. Chakraborty, who was physically present in the building during the encounter and was fully available. As needed , all aspects of the patient interview, examination, medical decision making process, and medical care plan development were reviewed and approved by the preceptor. Preceptor is aware and concurs with the plan as stated in the body of this note and will attest to such by his cosignature. LEANDRO TORRES May 23, 2016 14:46
[2016-05-23 18:00] VITALS: BP 141/82
[2016-05-23] MEDS: QUEtiapine FUMARATE 100 MG TAB PO SCH (22:45)
[2016-05-24] MEDS: OSELTAMIVIR PHOSPHATE 75 MG CAP (TAMIFLU) PO SCH ×3 (01:47→20:26)
[2016-05-24 06:44] VITALS: BP 93/52
--- NOTE | 2016-05-24 07:58 | IPNPDOC ---
Subjective General Date Seen The patient was seen on 05/24/16. Subjective Chief Complaint/HPI The patient is a 21-year-old female admitted with a reason for visit of Major Depressive Disorder. Assessment /Plan Problems Problems: (1) Influenza A Status: Acute Problem Text: * Patient is started on Tamiflu 75 mg by mouth twice a day * Tylenol as needed * Plenty of rest and fluids * Infection control is aware. * Droplet precautions initiated Plan/VTE VTE Prophylaxis Ordered?: No (ambulatory) VS, I&O, 24H, Fishbone Vital Signs/I&O Vital Signs Date Time Temp Pulse Resp B/P Pulse Ox O2 Delivery O2 Flow Rate FiO2 05/24/16 06:44 100.1 120 20 93/52 Laboratory Data Microbiology Microbiology 05/23/16 Respiratory Virus Panel (PCR) (MARY) - Final, Complete Influenza A H3 Liv Alvarado May 24, 2016 07:58
[2016-05-24] MEDS: KETOCONAZOLE 2% CREAM TOP SCH ×2 (08:49→20:27)
[2016-05-24] MEDS: OXcarbazepine 150 MG TAB PO SCH ×2 (08:51→20:26)
[2016-05-24] MEDS: lamoTRIgine 25 MG TAB PO SCH ×2 (08:51→20:26)
[2016-05-24] MEDS: VENLAFAXINE **XR** 75MG CAPSULE PO SCH (08:51)
[2016-05-24] MEDS: NICOTINE 7 MG/24 HR TRANSDERMAL TD SCH (08:56)
[2016-05-24] MEDS: ACETAMINOPHEN TAB 650MG DOSE (2X325MG) PO PRN ×2 (08:59→21:32)
[2016-05-24] MEDS ORDERED: ONDANSETRON 4 MG TAB (S0181) PO PRN (12:00)
--- NOTE | 2016-05-24 13:24 | IPNPDOC ---
[facility] Progress Note Progress Note DATE OF SERVICE: 05/24/16 HISTORY: Ms Gallegos is a 21-year-old white female with long history of major depressive disorder reporting severe since childhood. The patient has been readmitted after a few days of discharge. The patient became very depressed and suicidal. The patient was unable to contract for safety. When she was discharged she could not return home since she has an order of protection and she cannot see her baby without supervision so she went to live with a friend. The patient stated that her boyfriend has invited another girl to live in their house with him and the baby. She is telling her that he is going to get full custody of the baby and she says that he is changing his plans. She has no support in [place]. She came recently from another state to live with her boyfriend and their child. VITAL SIGNS: See below. CURRENT MEDICATIONS: - Seroquel 12.5 mg by mouth 3 times a day when necessary anxiety - Seroquel 100 mg by mouth daily at bedtime - Lamictal 25 mg by mouth every morning - Lamictal 50 mg by mouth daily at bedtime - Trileptal 150 mg by mouth twice a day - Zyprexa 5 mg by mouth every 6 hours when necessary anxiety and agitation - Effexor XR 75 mg by mouth every morning SUBJECTIVE: "I didn't sleep well, I'm still sad." OBJECTIVE: Today she states that she continues to have mixed feelings regarding long[place] care [place] [facility] [place] [place] She continues to express mild depression, anxiety, and her worry that she will be unable to contact her boyfriend or visit with her baby prior to transfer. This inability to contact her boyfriend continues to add to her stress. Physchiatric symptoms unchanged that cannot be objectively evaluated due to a fever of 104*F last evening accompanied by nausea and vomiting that was diagnosed as Flu positive. She states that these infectious symptoms caused her to be unable to sleep last evening as well as kept her from eating today. She continues to deny any medication side effects. MENTAL STATUS EXAMINATION: Patient is laying in bed for entire interview, and it is clothed in hospital clothing. She does not maintain eye contact and is staring at the wall, but she is still cooperative. She is alert and oriented 3. She talks slowly in a soft voice. She admits her mood is mildly depressed and anxious. Her affect is consistent with her mood. She continues to have linear and goal-directed thought processes directed towards getting her baby back and starting a family with her boyfriend. She is currently able to contract for safety on the unit. She denies delusions or hallucinations. Insight and judgment continue to be impaired. Attention and concentration are minimally impaired. Immediate, recent, and remote memory are intact. Intellectual function remains fair. ASSESSMENT: 1. Major depressive disorder, severe, recurrent MANAGEMENT PLAN: 1. Continue Lamictal 25 mg by mouth every morning. 2. Continue Lamictal 50 mg by mouth daily at bedtime. 3. Continue Trileptal 150 mg by mouth twice a day. 4. Continue Seroquel 100 mg by mouth daily at bedtime. 5. Continue Seroquel 12.5 mg by mouth 3 times a day when necessary anxiety. 6. Continue Zyprexa 5 mg by mouth every 6 hours when necessary anxiety medication. 7. Continue Effexor XR 75 mg by mouth every morning. 8. Continue medication management in addition to individual and group therapies. Vital Signs Vital Signs Date Time Temp Pulse Resp B/P Pulse Ox O2 Delivery O2 Flow Rate FiO2 05/24/16 06:44 100.1 120 20 93/52 Current Medications Current Medications Acetaminophen (Tylenol) 650 mg Q6HP PRN PO HEADACHE or DISCOMFORT Last administered on 05/24/16 08:59; Start 05/08/16 at 22:15; Stop 06/07/16 at 22:14 Al Hydrox/Mg Hydrox/Simethicone (Mylanta) 30 ml Q4HP PRN PO HEARTBURN/ INDIGESTION; Start 05/08/16 at 22:15; Stop 06/07/16 at 22:14 Home Med (Med Rec Complete!) ASDIRECTED XX ; Start 05/08/16 at 21:45; Stop at 22:31; Status DC Ibuprofen (Advil) 600 mg Q8HP PRN PO PAIN OR FEVER; Start 05/24/16 at 09:30; Stop 06/23/16 at 09:29 Ketoconazole (Nizoral) 1 dose BID TOP Last administered on 05/13/16 08:26; Start 05/09/16 at 09:00; Stop 05/13/16 at 10:00; Status DC Ketoconazole (Nizoral) 1 dose BID TOP Last administered on 05/22/16 20:31; Start 05/13/16 at 10:00; Stop 06/08/16 at 08:59 Lamotrigine (LaMICtal) 25 mg BID PO Last administered on 05/20/16 08:34; Start 05/15/16 at 21:00; Stop 05/20/16 at 09:43; Status DC Lamotrigine (LaMICtal) 25 mg QAM PO Last administered on 05/24/16 08:51; Start 05/21/16 at 09:00; Stop 06/20/16 at 08:59 Lamotrigine (LaMICtal) 25 mg QHS PO Last administered on 05/14/16 20:42; Start 05/10/16 at 21:00; Stop 05/15/16 at 14:39; Status DC Lamotrigine (LaMICtal) 50 mg QHS PO Last administered on 05/23/16 19:57; Start 05/20/16 at 21:00; Stop 06/19/16 at 20:59 Magnesium Hydroxide (Milk Of Magnesia) 30 ml DAILYPRN PRN PO CONSTIPATION; Start 05/08/16 at 22:15; Stop 06/07/16 at 22:14 Nicotine (Nicoderm Cq 7 Mg) 1 patch DAILY TD Last administered on 05/24/16 08: 56; Start 05/11/16 at 09:00; Stop 06/10/16 at 08:59 Non-Formulary Medication ( See Comment Field Below ) SEE COMMENTS SECTION 1T @10 XX ; Start 05/15/16 at 10:00; Stop 05/15/16 at 10:00; Status DC Non-Formulary Medication ( See Comment Field Below ) SEE LABEL COMMENTS DAILY XX ; Start 05/13/16 at 09:00; Stop 05/13/16 at 12:15; Status DC Non-Formulary Medication ( See Comment Field Below ) SEE LABEL COMMENTS SECTION 1T@10 XX Last administered on 05/15/16 10:00; Start 05/15/16 at 10:00; Stop 05/15/16 at 23:59; Status DC Olanzapine (ZyPREXA ZYDIS) 5 mg Q6HP PRN PO ANXIETY/AGITATION Last administered on 05/21/16 14:13; Start 05/09/16 at 10:15; Stop 06/08/16 at 10:14 Ondansetron HCl (Zofran) 4 mg Q8HP PRN PO NAUSEA OR VOMITING; Start 05/24/16 at 12:00; Stop 06/23/16 at 11:59 Oseltamivir Phosphate (Tamiflu) 75 mg BID PO Last administered on 05/24/16 08: 51; Start 05/24/16 at 01:15; Stop 05/29/16 at 01:14 Oxcarbazepine (Trileptal) 150 mg BID PO Last administered on 05/24/16 08:51; Start 05/09/16 at 09:00; Stop 06/08/16 at 08:59 Quetiapine Fumarate (SEROquel) 12.5 mg TID@08,13,21 PO Last administered on 05/22 08:44; Start 05/09/16 at 08:00; Stop 05/22/16 at 10:13; Status DC Quetiapine Fumarate (SEROquel) 12.5 mg TIDP PRN PO ANXIETY Last administered on 05/23/16 12:32; Start 05/22/16 at 10:15; Stop 06/21/16 at 10:14 Quetiapine Fumarate (SEROquel) 100 mg QHS PO Last administered on 05/23/16 22: 45; Start 05/13/16 at 21:00; Stop 06/12/16 at 20:59 Trazodone HCl (Desyrel) 150 mg QHS PO Last administered on 05/12/16 21:21; Start 05/08/16 at 21:00; Stop 05/13/16 at 09:44; Status DC Tuberculin PPD (Aplisol, Ppd) 5 units 1T@10 ID Last administered on 05/13/16 15:27; Start 05/13/16 at 10:00; Stop 05/13/16 at 23:59; Status DC Venlafaxine HCl (Effexor Xr) 75 mg QAM PO Last administered on 05/24/16 08 :51; Start 05/09/16 at 09:00; Stop 06/08/16 at 08:59 Allergies Coded Allergies: No Known Allergies (Unverified , 02/22/16) GME ATTESTATION GME ATTESTATION My preceptor for this patient encounter was Dr. Chakraborty, who was physically present in the building during the encounter and was fully available. As needed , all aspects of the patient interview, examination, medical decision making process, and medical care plan development were reviewed and approved by the preceptor. Preceptor is aware and concurs with the plan as stated in the body of this note and will attest to such by his cosignature. LEANDRO TORRES May 24, 2016 13:24
--- NOTE | 2016-05-24 14:11 | IPNPDOC ---
Subjective General Date Seen The patient was seen on 05/24/16. Subjective Chief Complaint/HPI The patient is a 21-year-old female admitted with a reason for visit of Major Depressive Disorder. Events since last encounter The patient tested influenza A positive. The patient is feeling achy, chills. Nauseated. She has been placed on droplet precaution. Objective Physical Examination General Exam: Positive: Alert Eye Exam: Positive: PERRLA ENT Exam: Positive: Atraumatic, Mucous membr. moist/pink Chest Exam: Positive: Clear to auscultation, Normal air movement Heart Exam: Positive: Normal S1, Normal S2, Rate Normal, Regular Rhythm, Negative: Murmurs, Rubs Skin Exam: Positive: Nl turgor and temperature Assessment /Plan Problems Problems: (1) Influenza A Status: Acute Problem Text: * Patient is started on Tamiflu 75 mg by mouth twice a day * Tylenol as needed * Zofran as needed * Plenty of rest and fluids, supportive care. * Infection control is aware. * Droplet precautions initiated Plan/VTE VTE Prophylaxis Ordered?: No (ambulatory) VS, I&O, 24H, Fishbone Vital Signs/I&O Vital Signs Date Time Temp Pulse Resp B/P Pulse Ox O2 Delivery O2 Flow Rate FiO2 05/24/16 06:44 100.1 120 20 93/52 Laboratory Data Microbiology Microbiology 05/23/16 Respiratory Virus Panel (PCR) (MARY) - Final, Complete Influenza A H3 Liv Alvarado May 24, 2016 11:59
[2016-05-24] MEDS: IBUPROFEN 600 MG TAB PO PRN (15:41)
[2016-05-24 18:00] VITALS: BP 110/75
[2016-05-24] MEDS: QUEtiapine FUMARATE 100 MG TAB PO SCH (21:32)
[2016-05-25 06:18] VITALS: BP 110/64
[2016-05-25] MEDS: KETOCONAZOLE 2% CREAM TOP SCH ×2 (09:00→20:57)
[2016-05-25] MEDS: NICOTINE 7 MG/24 HR TRANSDERMAL TD SCH (09:13)
[2016-05-25] MEDS: VENLAFAXINE **XR** 75MG CAPSULE PO SCH (09:13)
[2016-05-25] MEDS: lamoTRIgine 25 MG TAB PO SCH ×2 (09:13→20:56)
[2016-05-25] MEDS: OSELTAMIVIR PHOSPHATE 75 MG CAP (TAMIFLU) PO SCH ×2 (09:13→20:56)
[2016-05-25] MEDS: OXcarbazepine 150 MG TAB PO SCH ×2 (09:13→20:56)
[2016-05-25] MEDS: ACETAMINOPHEN TAB 650MG DOSE (2X325MG) PO PRN (11:58)
[2016-05-25] MEDS: QUEtiapine FUMARATE 12.5 MG HALF-TAB PO PRN (14:59)
[2016-05-25 18:37] VITALS: BP 120/72
[2016-05-25] MEDS: QUEtiapine FUMARATE 100 MG TAB PO SCH (23:25)
[2016-05-26 06:36] VITALS: BP 120/82
[2016-05-26] MEDS: KETOCONAZOLE 2% CREAM TOP SCH ×2 (09:00→20:47)
[2016-05-26] MEDS: OSELTAMIVIR PHOSPHATE 75 MG CAP (TAMIFLU) PO SCH ×2 (09:18→20:47)
[2016-05-26] MEDS: OXcarbazepine 150 MG TAB PO SCH ×2 (09:18→20:47)
[2016-05-26] MEDS: lamoTRIgine 25 MG TAB PO SCH ×2 (09:19→20:47)
[2016-05-26] MEDS: VENLAFAXINE **XR** 75MG CAPSULE PO SCH (09:19)
[2016-05-26] MEDS: NICOTINE 7 MG/24 HR TRANSDERMAL TD SCH (09:22)
[2016-05-26] MEDS: ACETAMINOPHEN TAB 650MG DOSE (2X325MG) PO PRN (09:23)
[2016-05-26] MEDS: QUEtiapine FUMARATE 12.5 MG HALF-TAB PO PRN (15:22)
[2016-05-26] MEDS: OLANZapine ORAL DISINTEGRATING TAB 5MG PO PRN (16:26)
[2016-05-26 18:00] VITALS: BP 133/80
[2016-05-26] MEDS: QUEtiapine FUMARATE 100 MG TAB PO SCH (20:46)
[2016-05-27] MEDS: OLANZapine ORAL DISINTEGRATING TAB 5MG PO PRN ×3 (01:15→20:48)
[2016-05-27] MEDS: QUEtiapine FUMARATE 12.5 MG HALF-TAB PO PRN ×2 (01:17→09:40)
[2016-05-27] MEDS: QUEtiapine FUMARATE 100 MG TAB PO SCH ×3 (01:56→21:25)
[2016-05-27 06:22] VITALS: BP 126/70
[2016-05-27] MEDS: KETOCONAZOLE 2% CREAM TOP SCH ×2 (09:00→20:47)
[2016-05-27] MEDS: VENLAFAXINE **XR** 75MG CAPSULE PO SCH (09:14)
[2016-05-27] MEDS: OSELTAMIVIR PHOSPHATE 75 MG CAP (TAMIFLU) PO SCH ×2 (09:14→20:46)
[2016-05-27] MEDS: lamoTRIgine 25 MG TAB PO SCH ×2 (09:14→20:46)
[2016-05-27] MEDS: OXcarbazepine 150 MG TAB PO SCH ×2 (09:14→20:46)
[2016-05-27] MEDS: NICOTINE 7 MG/24 HR TRANSDERMAL TD SCH (09:17)
[2016-05-27] MEDS ORDERED: LORazepam 2 MG/ML VIAL (J2060) IM STA (14:59)
[2016-05-27] MEDS ORDERED: LORazepam 2 MG TAB PO STA (15:01)
--- NOTE | 2016-05-27 16:34 | IPNPDOC ---
[facility] Progress Note Progress Note DATE OF SERVICE: 05/27/16 HISTORY: Ms Gallegos is a 21-year-old white female with long history of major depressive disorder reporting severe since childhood. The patient has been readmitted after a few days of discharge. The patient became very depressed and suicidal. The patient was unable to contract for safety. When she was discharged she could not return home since she has an order of protection and she cannot see her baby without supervision so she went to live with a friend. The patient stated that her boyfriend has invited another girl to live in their house with him and the baby. She is telling her that he is going to get full custody of the baby and she says that he is changing his plans. She has no support in [place]. She came recently from another state to live with her boyfriend and their child. VITAL SIGNS: See below. CURRENT MEDICATIONS: - Seroquel 12.5 mg by mouth 3 times a day when necessary anxiety - Seroquel 100 mg by mouth daily at bedtime - Lamictal 25 mg by mouth every morning - Lamictal 50 mg by mouth daily at bedtime - Trileptal 150 mg by mouth twice a day - Zyprexa 5 mg by mouth every 6 hours when necessary anxiety and agitation - Effexor XR 75 mg by mouth every morning SUBJECTIVE: "I hate it here, wants to go home. I need my baby." OBJECTIVE: Today she states that she no longer wants to go to long-term care at [facility] ([facility] Boyfriend contacted staff and expressed that he no longer wants to be with her and does not wish to talk to her. Patient was informed of this and began hitting the wall with both hands, screaming "I need to leave. I need to fix this. I need to talk to him. Let me go. I need my baby.", as well as throwing her pillow and blankets. She was medicated with 2 mg of Ativan which she took by mouth. Prior to this she was attempting to sleep and still feels sick due to influenza A stating that she is still nauseous and tired. She admits that she is still sleeping well and eating enough. She denies medication side effects. MENTAL STATUS EXAMINATION: Patient is bent over crying and hitting wall for entire interview. She is clothed in hospital clothing. She does not maintain eye contact, and continues to hit the wall and screen. She is uncooperative. She is alert and oriented 3. She does not respond to consolation. She admits her mood is depressed, anxious, angry, and confused. Her affect is consistent with her mood. She has linear and goal-directed thought processes directed solely leaving the unit getting back to her baby and her boyfriend to fix her relationship. She is currently able to contract for safety on the unit. She denies delusions or hallucinations. Her insight and judgment are greatly impaired. Attention and concentration are greatly impaired. Immediate, recent, and remote memory are intact. Intellectual functioning remains fair. ASSESSMENT: 1. Major depressive disorder, severe, recurrent MANAGEMENT PLAN: 1. Continue Seroquel 12.5 mg by mouth 3 times a day when necessary anxiety 2. Continue Seroquel 100 mg by mouth daily at bedtime. 3. Continue Lamictal 25 mg by mouth every morning. 4. Continue Lamictal 50 mg by mouth daily at bedtime. 5. Continue Trileptal 150 mg by mouth twice a day. 6. Continue Zyprexa 5 mg by mouth every 6 hours when necessary anxiety and agitation. 7. Continue Effexor XR 75 mg by mouth every morning. 8. Continue medication management in addition to individual group therapies. Vital Signs Vital Signs Date Time Temp Pulse Resp B/P Pulse Ox O2 Delivery O2 Flow Rate FiO2 05/27/16 06:22 96.7 73 17 126/70 Current Medications Current Medications Acetaminophen (Tylenol) 650 mg Q6HP PRN PO HEADACHE or DISCOMFORT Last administered on 05/26/16 09:23; Start 05/08/16 at 22:15; Stop 06/07/16 at 22:14 Al Hydrox/Mg Hydrox/Simethicone (Mylanta) 30 ml Q4HP PRN PO HEARTBURN/ INDIGESTION; Start 05/08/16 at 22:15; Stop 06/07/16 at 22:14 Home Med (Med Rec Complete!) ASDIRECTED XX ; Start 05/08/16 at 21:45; Stop at 22:31; Status DC Ibuprofen (Advil) 600 mg Q8HP PRN PO PAIN OR FEVER Last administered on 15:41; Start 05/24/16 at 09:30; Stop 06/23/16 at 09:29 Ketoconazole (Nizoral) 1 dose BID TOP Last administered on 05/13/16 08:26; Start 05/09/16 at 09:00; Stop 05/13/16 at 10:00; Status DC Ketoconazole (Nizoral) 1 dose BID TOP Last administered on 05/26/16 20:47; Start 05/13/16 at 10:00; Stop 06/08/16 at 08:59 Lamotrigine (LaMICtal) 25 mg BID PO Last administered on 05/20/16 08:34; Start 05/15/16 at 21:00; Stop 05/20/16 at 09:43; Status DC Lamotrigine (LaMICtal) 25 mg QAM PO Last administered on 05/27/16 09:14; Start 05/21/16 at 09:00; Stop 06/20/16 at 08:59 Lamotrigine (LaMICtal) 25 mg QHS PO Last administered on 05/14/16 20:42; Start 05/10/16 at 21:00; Stop 05/15/16 at 14:39; Status DC Lamotrigine (LaMICtal) 50 mg QHS PO Last administered on 05/26/16 20:47; Start 05/20/16 at 21:00; Stop 06/19/16 at 20:59 Magnesium Hydroxide (Milk Of Magnesia) 30 ml DAILYPRN PRN PO CONSTIPATION; Start 05/08/16 at 22:15; Stop 06/07/16 at 22:14 Nicotine (Nicoderm Cq 7 Mg) 1 patch DAILY TD Last administered on 05/27/16 09: 17; Start 05/11/16 at 09:00; Stop 06/10/16 at 08:59 Non-Formulary Medication ( See Comment Field Below ) SEE COMMENTS SECTION 1T @10 XX ; Start 05/15/16 at 10:00; Stop 05/15/16 at 10:00; Status DC Non-Formulary Medication ( See Comment Field Below ) SEE LABEL COMMENTS DAILY XX ; Start 05/13/16 at 09:00; Stop 05/13/16 at 12:15; Status DC Non-Formulary Medication ( See Comment Field Below ) SEE LABEL COMMENTS SECTION 1T@10 XX Last administered on 05/15/16 10:00; Start 05/15/16 at 10:00; Stop 05/15/16 at 23:59; Status DC Olanzapine (ZyPREXA ZYDIS) 5 mg Q6HP PRN PO ANXIETY/AGITATION Last administered on 05/27/16 12:49; Start 05/09/16 at 10:15; Stop 06/08/16 at 10:14 Ondansetron HCl (Zofran) 4 mg Q8HP PRN PO NAUSEA OR VOMITING; Start 05/24/16 at 12:00; Stop 06/23/16 at 11:59 Oseltamivir Phosphate (Tamiflu) 75 mg BID PO Last administered on 05/27/16 09: 14; Start 05/24/16 at 01:15; Stop 05/29/16 at 01:14 Oxcarbazepine (Trileptal) 150 mg BID PO Last administered on 05/27/16 09:14; Start 05/09/16 at 09:00; Stop 06/08/16 at 08:59 Quetiapine Fumarate (SEROquel) 12.5 mg TID@08,13,21 PO Last administered on 05/22 08:44; Start 05/09/16 at 08:00; Stop 05/22/16 at 10:13; Status DC Quetiapine Fumarate (SEROquel) 12.5 mg TIDP PRN PO ANXIETY Last administered on 05/27/16 09:40; Start 05/22/16 at 10:15; Stop 06/21/16 at 10:14 Quetiapine Fumarate (SEROquel) 100 mg QHS PO Last administered on 05/27/16 01: 57; Start 05/13/16 at 21:00; Stop 06/12/16 at 20:59 Trazodone HCl (Desyrel) 150 mg QHS PO Last administered on 05/12/16 21:21; Start 05/08/16 at 21:00; Stop 05/13/16 at 09:44; Status DC Tuberculin PPD (Aplisol, Ppd) 5 units 1T@10 ID Last administered on 05/13/16 15:27; Start 1/30/17 at 10:00; Stop 05/13/16 at 23:59; Status DC Venlafaxine HCl (Effexor Xr) 75 mg QAM PO Last administered on 05/27/16t 09 :14; Start 05/09/16 at 09:00; Stop 06/08/16 at 08:59 Allergies Coded Allergies: No Known Allergies (Unverified , 02/22/16) GME ATTESTATION GME ATTESTATION My preceptor for this patient encounter was Dr. Chakraborty, who was physically present in the building during the encounter and was fully available. As needed , all aspects of the patient interview, examination, medical decision making process, and medical care plan development were reviewed and approved by the preceptor. Preceptor is aware and concurs with the plan as stated in the body of this note and will attest to such by his cosignature. LEANDRO TORRES May 27, 2016 16:34
[2016-05-27 18:00] VITALS: BP 124/87
[2016-05-27] MEDS ORDERED: OLANZapine INTRAMUSCULAR 10 MG VIAL (S0166) IM SCH (21:15)
[2016-05-27] MEDS: OLANZapine INTRAMUSCULAR 10 MG VIAL (S0166) IM PRN (21:47)
[2016-05-28 07:15] VITALS: BP 113/67
[2016-05-28] MEDS: KETOCONAZOLE 2% CREAM TOP SCH (09:00)
[2016-05-28] MEDS: lamoTRIgine 25 MG TAB PO SCH ×2 (09:50→21:15)
[2016-05-28] MEDS: VENLAFAXINE **XR** 75MG CAPSULE PO SCH (09:51)
[2016-05-28] MEDS: OXcarbazepine 150 MG TAB PO SCH ×2 (09:51→21:15)
[2016-05-28] MEDS: OSELTAMIVIR PHOSPHATE 75 MG CAP (TAMIFLU) PO SCH (09:51)
[2016-05-28] MEDS: NICOTINE 7 MG/24 HR TRANSDERMAL TD SCH (09:52)
[2016-05-28] MEDS: OLANZapine ORAL DISINTEGRATING TAB 5MG PO PRN (10:50)
--- NOTE | 2016-05-28 11:11 | IPNPDOC ---
[facility] Progress Note Progress Note DATE OF SERVICE: 05/28/16 HISTORY: Ms Gallegos is a 21-year-old white female with long history of major depressive disorder reporting severe since childhood. The patient has been readmitted after a few days of discharge. The patient became very depressed and suicidal. The patient was unable to contract for safety. When she was discharged she could not return home since she has an order of protection and she cannot see her baby without supervision so she went to live with a friend. The patient stated that her boyfriend has invited another girl to live in their house with him and the baby. She is telling her that he is going to get full custody of the baby and she says that he is changing his plans. She has no support in [place]. She came recently from another state to live with her boyfriend and their child. VITAL SIGNS: See below. CURRENT MEDICATIONS: - Seroquel 12.5mg by mouth 3 times a day when necessary anxiety - Seroquel 100mg by mouth daily at bedtime - Lamictal 25mg by mouth every morning - Lamictal 50mg by mouth daily at bedtime - Trileptal 150mg by mouth twice a day - Zyprexa 5mg by mouth every 6 hours when necessary anxiety and agitation - Effexor XR 75mg by mouth every morning SUBJECTIVE: "I want to go home, I need to fix this, I can't fix this here" OBJECTIVE: Today patient admits to increased depression relating to her recent break up with her boyfriend. She states that he continues to tell her that he is no longer going to see her and will not let her see her baby when she goes home. She no longer wants to go [place] [facility] [place] psychiatric care and believes that she is no longer in need of help but throughout the interview was yelling, hitting the nash, and was un- consolable. As she is talking she is switching between stating that she does not want to see her baby only wants to fix her family and wanting to see her baby stating "he's replacing me with a new mother." She admits to feeling better in regards to her positive influenza A, states that last night she did not sleep well, but has continued to have an appropriate appetite. She states she is unable to contract for safety at this time. She is currently self- focused and difficult to engage in conversation. She continues to sob and is distraught and is stating that "the black shadow" has told her "someone is going to hurt my baby and I'm never going to see her again." She states this is the reason she needs to leave today. MENTAL STATUS EXAMINATION: Patient is un-consolable and crying in her bed. She is dressed in hospital clothing. She does not maintain eye contact, continues to hit the wall, and screaming about a "black shadow". She is semi-cooperative. She is alert and oriented x3. She is not talkative or open to discussion. Her mood is depressed and angry. Her affect is consistent with her mood. Her thought processes are incoherent and she is currently experiencing auditory hallucinations of a "black shadow" telling her that she will never leave here nor ever see her baby again. She is currently unable to contract for safety on the unit. Her insight and judgment are severely impaired at this time. Her attention highly focused on her current situation. She is unable to respond to questions relating to her memory and her intellectual functioning is impaired. ASSESSMENT: 1. Major depressive disorder, severe, recurrent MANAGEMENT PLAN: 1. Continue Seroquel 12.5 mg by mouth 3 times a day when necessary anxiety. 2. Continue Seroquel 100 mg by mouth daily at bedtime. 3. Continue Lamictal 25 mg by mouth every morning. 4. Continue Lamictal 50 mg by mouth daily at bedtime. 5. Continue Trileptal 150 mg by mouth twice a day. 6. Continue Zyprexa 5 mg by mouth every 6 hours when necessary anxiety and agitation. 7. Continue Effexor XR 75 mg by mouth every morning. 8. Continue medication management in addition to individual and group therapies. Vital Signs Vital Signs Date Time Temp Pulse Resp B/P Pulse Ox O2 Delivery O2 Flow Rate FiO2 05/28/16 07:15 99.0 76 16 113/67 05/27/16 18:00 Room Air Current Medications Current Medications Acetaminophen (Tylenol) 650 mg Q6HP PRN PO HEADACHE or DISCOMFORT Last administered on 05/26/16t 09:23; Start 05/08/16 at 22:15; Stop 06/07/16 at 22:14 Al Hydrox/Mg Hydrox/Simethicone (Mylanta) 30 ml Q4HP PRN PO HEARTBURN/ INDIGESTION; Start 05/08/16 at 22:15; Stop 06/07/16 at 22:14 Home Med (Med Rec Complete!) ASDIRECTED XX ; Start 05/08/16 at 21:45; Stop at 22:31; Status DC Ibuprofen (Advil) 600 mg Q8HP PRN PO PAIN OR FEVER Last administered on 15:41; Start 05/24/16 at 09:30; Stop 06/23/16 at 09:29 Ketoconazole (Nizoral) 1 dose BID TOP Last administered on 05/13/16 08:26; Start 05/09/16 at 09:00; Stop 05/13/16 at 10:00; Status DC Ketoconazole (Nizoral) 1 dose BID TOP Last administered on 05/27/16 20:47; Start 05/13/16 at 10:00; Stop 05/28/16 at 10:17; Status DC Lamotrigine (LaMICtal) 25 mg BID PO Last administered on 05/20/16 08:34; Start 05/15/16 at 21:00; Stop 05/20/16 at 09:43; Status DC Lamotrigine (LaMICtal) 25 mg QAM PO Last administered on 05/28/16 09:50; Start 05/21/16 at 09:00; Stop 06/20/16 at 08:59 Lamotrigine (LaMICtal) 25 mg QHS PO Last administered on 05/14/16 20:42; Start 05/10/16 at 21:00; Stop 05/15/16 at 14:39; Status DC Lamotrigine (LaMICtal) 50 mg QHS PO Last administered on 05/27/16 20:46; Start 05/20/16 at 21:00; Stop 06/19/16 at 20:59 Magnesium Hydroxide (Milk Of Magnesia) 30 ml DAILYPRN PRN PO CONSTIPATION; Start 05/08/16 at 22:15; Stop 06/07/16 at 22:14 Nicotine (Nicoderm Cq 7 Mg) 1 patch DAILY TD Last administered on 05/28/16 09: 52; Start 05/11/16 at 09:00; Stop 06/10/16 at 08:59 Non-Formulary Medication ( See Comment Field Below ) SEE COMMENTS SECTION 1T @10 XX ; Start 05/15/16 at 10:00; Stop 05/15/16 at 10:00; Status DC Non-Formulary Medication ( See Comment Field Below ) SEE LABEL COMMENTS DAILY XX ; Start 05/13/16 at 09:00; Stop 05/13/16 at 12:15; Status DC Non-Formulary Medication ( See Comment Field Below ) SEE LABEL COMMENTS SECTION 1T@10 XX Last administered on 05/15/16 10:00; Start 05/15/16 at 10:00; Stop 05/15/16 at 23:59; Status DC Olanzapine (ZyPREXA ZYDIS) 5 mg Q6HP PRN PO ANXIETY/AGITATION Last administered on 05/27/16 20:48; Start 05/09/16 at 10:15; Stop 06/08/16 at 10:14 Olanzapine (Zyprexa Intramuscular) 5 mg Q6HP IM ; Start 05/27/16 at 21:15; Stop 05/27/16 at 21:24; Status DC Olanzapine (Zyprexa Intramuscular) 5 mg Q6HP PRN IM ANXIETY/AGITATION Last administered on 05/27/16 21:47; Start 05/27/16 at 21:30; Stop 06/26/16 at 21:29 Ondansetron HCl (Zofran) 4 mg Q8HP PRN PO NAUSEA OR VOMITING; Start 05/24/16 at 12:00; Stop 06/23/16 at 11:59 Oseltamivir Phosphate (Tamiflu) 75 mg BID PO Last administered on 05/28/16 09: 51; Start 05/24/16 at 01:15; Stop 05/29/16 at 01:14 Oxcarbazepine (Trileptal) 150 mg BID PO Last administered on 05/28/16 09:51; Start 05/09/16 at 09:00; Stop 06/08/16 at 08:59 Quetiapine Fumarate (SEROquel) 12.5 mg TID@,,21 PO Last administered on 05/22 08:44; Start 05/09/16 at 08:00; Stop 05/22/16 at 10:13; Status DC Quetiapine Fumarate (SEROquel) 12.5 mg TIDP PRN PO ANXIETY Last administered on 05/27/16 09:40; Start 05/22/16 at 10:15; Stop 06/21/16 at 10:14 Quetiapine Fumarate (SEROquel) 100 mg QHS PO Last administered on 05/27/16 21: 25; Start 05/13/16 at 21:00; Stop 06/12/16 at 20:59 Trazodone HCl (Desyrel) 150 mg QHS PO Last administered on 05/12/16 21:21; Start 05/08/16 at 21:00; Stop 05/13/16 at 09:44; Status DC Tuberculin PPD (Aplisol, Ppd) 5 units 1T@10 ID Last administered on 05/13/16 15:27; Start 05/13/16 at 10:00; Stop 05/13/16 at 23:59; Status DC Venlafaxine HCl (Effexor Xr) 75 mg QAM PO Last administered on 05/28/16 09 :51; Start 05/09/16 at 09:00; Stop 06/08/16 at 08:59 Allergies Coded Allergies: No Known Allergies (Unverified , 02/22/16) GME ATTESTATION GME ATTESTATION My preceptor for this patient encounter was Dr. Chakraborty, who was physically present in the building during the encounter and was fully available. As needed , all aspects of the patient interview, examination, medical decision making process, and medical care plan development were reviewed and approved by the preceptor. Preceptor is aware and concurs with the plan as stated in the body of this note and will attest to such by his cosignature. LEANDRO TORRES May 28, 2016 11:11
[2016-05-28] MEDS: QUEtiapine FUMARATE 12.5 MG HALF-TAB PO PRN ×2 (11:37→17:14)
[2016-05-28] MEDS: OLANZapine INTRAMUSCULAR 10 MG VIAL (S0166) IM PRN (15:40)
[2016-05-28 18:00] VITALS: BP 124/80
[2016-05-28] MEDS: ACETAMINOPHEN TAB 650MG DOSE (2X325MG) PO PRN (18:38)
[2016-05-28] MEDS: QUEtiapine FUMARATE 100 MG TAB PO SCH (21:15)
[2016-05-29 06:47] VITALS: BP 117/71
[2016-05-29] MEDS: VENLAFAXINE **XR** 75MG CAPSULE PO SCH (08:10)
[2016-05-29] MEDS: lamoTRIgine 25 MG TAB PO SCH ×2 (08:10→20:20)
[2016-05-29] MEDS: OXcarbazepine 150 MG TAB PO SCH ×2 (08:10→20:20)
[2016-05-29] MEDS: NICOTINE 7 MG/24 HR TRANSDERMAL TD SCH (08:11)
--- NOTE | 2016-05-29 11:25 | IPNPDOC ---
[facility] Progress Note Progress Note DATE OF SERVICE: 05/29/16 HISTORY: Ms Gallegos is a 21-year-old white female with long history of major depressive disorder reporting severe since childhood. The patient has been readmitted after a few days of discharge. The patient became very depressed and suicidal. The patient was unable to contract for safety. When she was discharged she could not return home since she has an order of protection and she cannot see her baby without supervision so she went to live with a friend. The patient stated that her boyfriend has invited another girl to live in their house with him and the baby. She is telling her that he is going to get full custody of the baby and she says that he is changing his plans. She has no support in [place]. She came recently from another state to live with her boyfriend and their child. VITAL SIGNS: See below. CURRENT MEDICATIONS: - Zyprexa 5 mg IM every 6 hours when necessary anxiety and agitation - Seroquel 12.5 mg by mouth 3 times a day when necessary anxiety - Seroquel 100 mg by mouth daily at bedtime - Lamictal 25 mg by mouth every morning - Lamictal 50 mg by mouth daily at bedtime - Trileptal 150 mg by mouth twice a day - Zyprexa 5 mg by mouth every 6 hours when necessary anxiety and agitation - Effexor XR 75 mg by mouth every morning SUBJECTIVE: "I'm still mildly depressed and anxious, but did want to go to long- term care" OBJECTIVE: Today patient admits to depression and anxiety have improved since yesterday. She states that she still notices depressive symptoms like anhedonia , fatigue, isolation, and overall feeling sad. In contrast to yesterday, she states that she has not been crying or screaming throughout the day. She states "I'm done with my boyfriend but would like to see him before going to long-term care so I can see my baby" and understands that if she did not go to long-term care that she might do "something stupid." She states that she has been talking to 2 different individuals in regards to a new relationship, and states that her mood is improved today because she is now going to have one of these individuals visit her that she has not met in person before but states "we talked about 30 minutes last night and he made me smile." She spoke again of this "black shadow" that reached out to her yesterday - this is a new occurrence but continues to tell her "I'm going to take her baby away", she is unable to determine if this is because her brain is playing tricks on her or if this is a real entity. She states that last night she slept on and off and feels very tired today. She admits to not eating due to no appetite, but also states "I'm insecure about my body" and wonders " if I was skinnier he would still love me?" She denies any side effects to any medications. MENTAL STATUS EXAMINATION: Patient is dressed in hospital clothing and sits for the entire exam. She maintains poor eye contact and exhibits psychomotor retardation. She is cooperative and open. She is alert and oriented 3. She is semi-talkative speaking slowly and soft. Her mood is mildly depressed and anxious, and her affect is mostly consistent with her mood yet is mildly restricted. Today she exhibits linear goal-directed thought processes aimed at attending long-term care, seeing her baby, and no longer being her boyfriend. She denies hallucinations or delusions. She speaks about starting a new relationship with someone new today. She is able to contract today for safety on the unit. Her insight and judgment are poor. Her attention is appropriate. Her recent, remote, and immediate memory are intact. Intellectual functioning remains impaired. ASSESSMENT: 1. Major depressive disorder, severe, recurrent MANAGEMENT PLAN: 1. Continue Zyprexa 5 mg IM every 6 hours when necessary anxiety and agitation. 2. Continue Seroquel 12.5 mg by mouth 3 times a day when necessary anxiety. 3. Continue Seroquel 100 mg by mouth daily at bedtime. 4. Continue Lamictal 25 mg by mouth every morning. 5. Continue Lamictal 50 mg by mouth daily at bedtime. 6. Continue Trileptal 150 mg by mouth twice a day. 7. Continue Zyprexa 5 mg by mouth every 6 hours when necessary anxiety and agitation. 8. Continue Effexor XR 75 mg by mouth every morning. 9. Continue medication management in addition to individual group therapies. Vital Signs Vital Signs Date Time Temp Pulse Resp B/P Pulse Ox O2 Delivery O2 Flow Rate FiO2 05/29/16 06:47 97.7 100 16 117/71 213/17 18:00 Room Air Current Medications Current Medications Acetaminophen (Tylenol) 650 mg Q6HP PRN PO HEADACHE or DISCOMFORT Last administered on 05/28/16 18:38; Start 05/08/16 at 22:15; Stop 06/07/16 at 22:14 Al Hydrox/Mg Hydrox/Simethicone (Mylanta) 30 ml Q4HP PRN PO HEARTBURN/ INDIGESTION; Start 05/08/16 at 22:15; Stop 06/07/16 at 22:14 Home Med (Med Rec Complete!) ASDIRECTED XX ; Start 05/08/16 at 21:45; Stop at 22:31; Status DC Ibuprofen (Advil) 600 mg Q8HP PRN PO PAIN OR FEVER Last administered on 15:41; Start 05/24/16 at 09:30; Stop 06/23/16 at 09:29 Ketoconazole (Nizoral) 1 dose BID TOP Last administered on 05/13/16 08:26; Start 05/09/16 at 09:00; Stop 05/13/16 at 10:00; Status DC Ketoconazole (Nizoral) 1 dose BID TOP Last administered on 05/27/16 20:47; Start 05/13/16 at 10:00; Stop 05/28/16 at 10:17; Status DC Lamotrigine (LaMICtal) 25 mg BID PO Last administered on 05/20/16 08:34; Start 05/15/16 at 21:00; Stop 05/20/16 at 09:43; Status DC Lamotrigine (LaMICtal) 25 mg QAM PO Last administered on 05/29/16 08:10; Start 05/21/16 at 09:00; Stop 06/20/16 at 08:59 Lamotrigine (LaMICtal) 25 mg QHS PO Last administered on 05/14/16 20:42; Start 05/10/16 at 21:00; Stop 05/15/16 at 14:39; Status DC Lamotrigine (LaMICtal) 50 mg QHS PO Last administered on 05/28/16 21:15; Start 05/20/16 at 21:00; Stop 06/19/16 at 20:59 Magnesium Hydroxide (Milk Of Magnesia) 30 ml DAILYPRN PRN PO CONSTIPATION; Start 05/08/16 at 22:15; Stop 06/07/16 at 22:14 Nicotine (Nicoderm Cq 7 Mg) 1 patch DAILY TD Last administered on 05/29/16 08: 11; Start 05/11/16 at 09:00; Stop 06/10/16 at 08:59 Non-Formulary Medication ( See Comment Field Below ) SEE COMMENTS SECTION 1T @10 XX ; Start 05/15/16 at 10:00; Stop 05/15/16 at 10:00; Status DC Non-Formulary Medication ( See Comment Field Below ) SEE LABEL COMMENTS DAILY XX ; Start 05/13/16 at 09:00; Stop 05/13/16 at 12:15; Status DC Non-Formulary Medication ( See Comment Field Below ) SEE LABEL COMMENTS SECTION 1T@10 XX Last administered on 05/15/16 10:00; Start 05/15/16 at 10:00; Stop 05/15/16 at 23:59; Status DC Olanzapine (ZyPREXA ZYDIS) 5 mg Q6HP PRN PO ANXIETY/AGITATION Last administered on 05/28/16 10:50; Start 05/09/16 at 10:15; Stop 06/08/16 at 10:14 Olanzapine (Zyprexa Intramuscular) 5 mg Q6HP IM ; Start 05/27/16 at 21:15; Stop 05/27/16 at 21:24; Status DC Olanzapine (Zyprexa Intramuscular) 5 mg Q6HP PRN IM ANXIETY/AGITATION Last administered on 05/28/16 15:40; Start 05/27/16 at 21:30; Stop 06/26/16 at 21:29 Ondansetron HCl (Zofran) 4 mg Q8HP PRN PO NAUSEA OR VOMITING; Start 05/24/16 at 12:00; Stop 06/23/16 at 11:59 Oseltamivir Phosphate (Tamiflu) 75 mg BID PO Last administered on 05/28/16 09: 51; Start 05/24/16 at 01:15; Stop 05/28/16 at 12:03; Status DC Oxcarbazepine (Trileptal) 150 mg BID PO Last administered on 05/29/16 08:10; Start 05/09/16 at 09:00; Stop 06/08/16 at 08:59 Quetiapine Fumarate (SEROquel) 12.5 mg TID@08,13,21 PO Last administered on 05/22 08:44; Start 05/09/16 at 08:00; Stop 05/22/16 at 10:13; Status DC Quetiapine Fumarate (SEROquel) 12.5 mg TIDP PRN PO ANXIETY Last administered on 05/28/16 17:14; Start 05/22/16 at 10:15; Stop 06/21/16 at 10:14 Quetiapine Fumarate (SEROquel) 100 mg QHS PO Last administered on 05/28/16 21: 15; Start 05/13/16 at 21:00; Stop 06/12/16 at 20:59 Trazodone HCl (Desyrel) 150 mg QHS PO Last administered on 05/12/16 21:21; Start 05/08/16 at 21:00; Stop 05/13/16 at 09:44; Status DC Tuberculin PPD (Aplisol, Ppd) 5 units 1T@10 ID Last administered on 05/13/16 15:27; Start 05/13/16 at 10:00; Stop 05/13/16 at 23:59; Status DC Venlafaxine HCl (Effexor Xr) 75 mg QAM PO Last administered on 05/29/16 08 :10; Start 05/09/16 at 09:00; Stop 06/08/16 at 08:59 Allergies Coded Allergies: No Known Allergies (Unverified , 02/22/16) GME ATTESTATION GME ATTESTATION My preceptor for this patient encounter was Dr. Chakraborty, who was physically present in the building during the encounter and was fully available. As needed , all aspects of the patient interview, examination, medical decision making process, and medical care plan development were reviewed and approved by the preceptor. Preceptor is aware and concurs with the plan as stated in the body of this note and will attest to such by his cosignature. LEANDRO TORRES May 29, 2016 11:25
[2016-05-29 18:00] VITALS: BP 120/74
[2016-05-29] MEDS: ACETAMINOPHEN TAB 650MG DOSE (2X325MG) PO PRN (19:48)
[2016-05-29] MEDS: QUEtiapine FUMARATE 100 MG TAB PO SCH (23:01)
[2016-05-29] MEDS: OLANZapine ORAL DISINTEGRATING TAB 5MG PO PRN (23:01)
[2016-05-30 07:00] VITALS: BP 117/76
[2016-05-30] MEDS: NICOTINE 7 MG/24 HR TRANSDERMAL TD SCH (09:00)
[2016-05-30] MEDS: VENLAFAXINE **XR** 75MG CAPSULE PO SCH (09:13)
[2016-05-30] MEDS: OXcarbazepine 150 MG TAB PO SCH ×2 (09:14→21:13)
[2016-05-30] MEDS: lamoTRIgine 25 MG TAB PO SCH ×2 (09:14→21:13)
[2016-05-30] MEDS: OLANZapine ORAL DISINTEGRATING TAB 5MG PO PRN (09:49)
--- NOTE | 2016-05-30 14:45 | IPNPDOC ---
[facility] Progress Note Progress Note DATE OF SERVICE: 05/30/16 HISTORY: Ms Gallegos is a 21-year-old white female with long history of major depressive disorder reporting severe since childhood. The patient has been readmitted after a few days of discharge. The patient became very depressed and suicidal. The patient was unable to contract for safety. When she was discharged she could not return home since she has an order of protection and she cannot see her baby without supervision so she went to live with a friend. The patient stated that her boyfriend has invited another girl to live in their house with him and the baby. She is telling her that he is going to get full custody of the baby and she says that he is changing his plans. She has no support in [place]. She came recently from another state to live with her boyfriend and their child. VITAL SIGNS: See below. CURRENT MEDICATIONS: - Seroquel 12.5 mg by mouth 3 times a day when necessary anxiety - Seroquel 100 mg daily at bedtime - Lamictal 25 mg every morning - Lamictal 50 mg by mouth daily at bedtime - Trileptal 150 mg by mouth twice a day - Zyprexa 5 mg by mouth every 6 hours anxiety and agitation - Effexor XR 75 mg by mouth every morning SUBJECTIVE: "I feel like I'm giving up." OBJECTIVE: Patient admits today she is feeling more depressed than usual and states that she is having intermittent thoughts of hurting herself. She states the only thing that continues undergoing is the thought of getting back with her daughter. This continues to be one of the biggest precipitating factors her mood, she states that "other patients are leaving home"and this is contributing to her feeling of depression. She continues to feel fatigued, anhedonic with low self-esteem and intermittent thoughts of suicide. She states that last night her visit here was pressuring her to a relationship that she does not interested in pursuing. She states that her landlord called her and told her "Jeremy is driving around at night with the baby in the car" and "Jeremy and Kenna are now engaged." She states that this pushed her to attempt to cut herself with a spoon; she immediately inform staff reports she had done and reports feeling embarrassed that she did. She admits to decreased sleep due to her mind wandering at night. She denies any issues with eating. She denies any medication side effects. MENTAL STATUS EXAMINATION: Patient is dressed in home clothing and was sleeping prior to interview. She sits on shoulder entire interview. She exhibits psychomotor retardation as well as decreased eye contact. She is tearful at times throughout the interview. She is cooperative and open, alert and oriented 3. She somewhat talkative speaks in a normal rate and tone. She states her mood is depressed and anxious. Her affect is blunted but most consistent with her mood. Her thought processes continue to be erratic. She denies delusions or hallucinations. She is able to contract for safety on the unit; although, she does admit to intermittent thoughts of hurting herself which she states that she would notify staff if she has the urge her insight and judgment continued to be impaired. Her attention is appropriate. Her recent, remote, and immediate memory are intact. Intellectual functioning remains impaired. ASSESSMENT: 1. Major depressive disorder, severe, recurrent MANAGEMENT PLAN: 1. Continue Seroquel 12.5 mg by mouth 3 times a day when necessary anxiety. 2. Continue Seroquel 100 mg daily at bedtime. 3. Continue Lamictal 25 mg by mouth every morning. 4. Continue Lamictal 50 mg by mouth daily at bedtime. 5. Continue Trileptal 150 mg by mouth twice a day. 6. Continue Zyprexa 5 mg by mouth every 6 hours when necessary anxiety and agitation. 7. Continue Effexor XR 75 mg by mouth every morning. 8. Continue medication management in addition to individual and group therapies. Vital Signs Vital Signs Date Time Temp Pulse Resp B/P Pulse Ox O2 Delivery O2 Flow Rate FiO2 05/30/16 07:00 97.3 59 16 117/76 05/27/16 18:00 Room Air Current Medications Current Medications Acetaminophen (Tylenol) 650 mg Q6HP PRN PO HEADACHE or DISCOMFORT Last administered on 05/29/16t 19:48; Start 05/08/16 at 22:15; Stop 06/07/16 at 22:14 Al Hydrox/Mg Hydrox/Simethicone (Mylanta) 30 ml Q4HP PRN PO HEARTBURN/ INDIGESTION; Start 05/08/16 at 22:15; Stop 06/07/16 at 22:14 Home Med (Med Rec Complete!) ASDIRECTED XX ; Start 05/08/16 at 21:45; Stop at 22:31; Status DC Ibuprofen (Advil) 600 mg Q8HP PRN PO PAIN OR FEVER Last administered on 15:41; Start 05/24/16 at 09:30; Stop 06/23/16 at 09:29 Ketoconazole (Nizoral) 1 dose BID TOP Last administered on 05/13/16 08:26; Start 05/09/16 at 09:00; Stop 05/13/16 at 10:00; Status DC Ketoconazole (Nizoral) 1 dose BID TOP Last administered on 05/27/16 20:47; Start 05/13/16 at 10:00; Stop 05/28/16 at 10:17; Status DC Lamotrigine (LaMICtal) 25 mg BID PO Last administered on 05/20/16 08:34; Start 05/15/16 at 21:00; Stop 05/20/16 at 09:43; Status DC Lamotrigine (LaMICtal) 25 mg QAM PO Last administered on 05/30/16 09:14; Start 05/21/16 at 09:00; Stop 06/20/16 at 08:59 Lamotrigine (LaMICtal) 25 mg QHS PO Last administered on 05/14/16 20:42; Start 05/10/16 at 21:00; Stop 05/15/16 at 14:39; Status DC Lamotrigine (LaMICtal) 50 mg QHS PO Last administered on 05/29/16 20:20; Start 05/20/16 at 21:00; Stop 06/19/16 at 20:59 Magnesium Hydroxide (Milk Of Magnesia) 30 ml DAILYPRN PRN PO CONSTIPATION; Start 05/08/16 at 22:15; Stop 06/07/16 at 22:14 Nicotine (Nicoderm Cq 7 Mg) 1 patch DAILY TD Last administered on 05/29/16 08: 11; Start 05/11/16 at 09:00; Stop 06/10/16 at 08:59 Non-Formulary Medication ( See Comment Field Below ) SEE COMMENTS SECTION 1T @10 XX ; Start 05/15/16 at 10:00; Stop 05/15/16 at 10:00; Status DC Non-Formulary Medication ( See Comment Field Below ) SEE LABEL COMMENTS DAILY XX ; Start 05/13/16 at 09:00; Stop 05/13/16 at 12:15; Status DC Non-Formulary Medication ( See Comment Field Below ) SEE LABEL COMMENTS SECTION 1T@10 XX Last administered on 05/15/16 10:00; Start 05/15/16 at 10:00; Stop 05/15/16 at 23:59; Status DC Olanzapine (ZyPREXA ZYDIS) 5 mg Q6HP PRN PO ANXIETY/AGITATION Last administered on 05/30/16 09:49; Start 05/09/16 at 10:15; Stop 06/08/16 at 10:14 Olanzapine (Zyprexa Intramuscular) 5 mg Q6HP IM ; Start 05/27/16 at 21:15; Stop 05/27/16 at 21:24; Status DC Olanzapine (Zyprexa Intramuscular) 5 mg Q6HP PRN IM ANXIETY/AGITATION Last administered on 05/28/16 15:40; Start 05/27/16 at 21:30; Stop 05/30/16 at 14:27 ; Status DC Ondansetron HCl (Zofran) 4 mg Q8HP PRN PO NAUSEA OR VOMITING; Start 05/24/16 at 12:00; Stop 06/23/16 at 11:59 Oseltamivir Phosphate (Tamiflu) 75 mg BID PO Last administered on 05/28/16 09: 51; Start 05/24/16 at 01:15; Stop 05/28/16 at 12:03; Status DC Oxcarbazepine (Trileptal) 150 mg BID PO Last administered on 05/30/16 09:14; Start 05/09/16 at 09:00; Stop 06/08/16 at 08:59 Quetiapine Fumarate (SEROquel) 12.5 mg TID@,,21 PO Last administered on 05/22 08:44; Start 05/09/16 at 08:00; Stop 05/22/16 at 10:13; Status DC Quetiapine Fumarate (SEROquel) 12.5 mg TIDP PRN PO ANXIETY Last administered on 05/28/16 17:14; Start 05/22/16 at 10:15; Stop 06/21/16 at 10:14 Quetiapine Fumarate (SEROquel) 100 mg QHS PO Last administered on 05/29/16 23: 01; Start 05/13/16 at 21:00; Stop 06/12/16 at 20:59 Trazodone HCl (Desyrel) 150 mg QHS PO Last administered on 05/12/16 21:21; Start 05/08/16 at 21:00; Stop 05/13/16 at 09:44; Status DC Tuberculin PPD (Aplisol, Ppd) 5 units 1T@10 ID Last administered on 05/13/16 15:27; Start 05/13/16 at 10:00; Stop 05/13/16 at 23:59; Status DC Venlafaxine HCl (Effexor Xr) 75 mg QAM PO Last administered on 05/30/16 09 :13; Start 05/09/16 at 09:00; Stop 06/08/16 at 08:59 Allergies Coded Allergies: No Known Allergies (Unverified , 02/22/16) GME ATTESTATION GME ATTESTATION My preceptor for this patient encounter was Dr. Chakraborty, who was physically present in the building during the encounter and was fully available. As needed , all aspects of the patient interview, examination, medical decision making process, and medical care plan development were reviewed and approved by the preceptor. Preceptor is aware and concurs with the plan as stated in the body of this note and will attest to such by his cosignature. LEANDRO TORRES May 30, 2016 14:45
[2016-05-30] MEDS: QUEtiapine FUMARATE 12.5 MG HALF-TAB PO PRN ×2 (16:29→22:39)
[2016-05-30 18:00] VITALS: BP 113/72
[2016-05-30] MEDS: QUEtiapine FUMARATE 100 MG TAB PO SCH (21:47)
[2016-05-31 06:21] VITALS: BP 110/62
[2016-05-31] MEDS: NICOTINE 7 MG/24 HR TRANSDERMAL TD SCH (09:00)
[2016-05-31] MEDS: lamoTRIgine 25 MG TAB PO SCH ×2 (09:18→21:25)
[2016-05-31] MEDS: OXcarbazepine 150 MG TAB PO SCH ×2 (09:18→21:25)
[2016-05-31] MEDS: VENLAFAXINE **XR** 75MG CAPSULE PO SCH (09:18)
[2016-05-31] MEDS: OLANZapine ORAL DISINTEGRATING TAB 5MG PO PRN (11:00)
--- NOTE | 2016-05-31 11:23 | IPNPDOC ---
[facility] Progress Note Progress Note DATE OF SERVICE: 05/31/16 HISTORY: Ms Gallegos is a 21-year-old white female with long history of major depressive disorder reporting severe since childhood. The patient has been readmitted after a few days of discharge. The patient became very depressed and suicidal. The patient was unable to contract for safety. When she was discharged she could not return home since she has an order of protection and she cannot see her baby without supervision so she went to live with a friend. The patient stated that her boyfriend has invited another girl to live in their house with him and the baby. She is telling her that he is going to get full custody of the baby and she says that he is changing his plans. She has no support in [place]. She came recently from another state to live with her boyfriend and their child. VITAL SIGNS: See below. CURRENT MEDICATIONS: - Seroquel 12.5 mg by mouth 3 times a day when necessary anxiety - Lamictal 25 mg by mouth every morning - Lamictal 50 mg by mouth daily at bedtime - Seroquel 100 mg by mouth daily at bedtime - Zyprexa 5 mg by mouth every 6 hours when necessary anxiety and agitation - Trileptal 150 mg by mouth twice a day - Effexor XR 75 mg by mouth every morning SUBJECTIVE: "I'm very depressed, feel like giving up." OBJECTIVE: Today patient admits that she is feeling more depressed and anxious and states that she continues to have intermittent thoughts of hurting herself. Upon waking up this morning she stated that she felt okay although throughout the day she continued to think about her ex-boyfriend as well as her baby which has precipitated her depression. Prior to interview she was in group which was too bright and she was writing about how she feels about her ex-boyfriend and her baby which brought her to tears. She needed to leave group and was walking around the unit crying, she states needing to go to the medication room to take her PRN Zyprexa. She continues to feel anhedonic, fatigue, low self-esteem, and intermittent thoughts of suicide. She spoke about visitors that she has done in the past couple of days and how they have made her feel like she does have some sort of support here. Her continued thoughts of hurting herself are driven by her ex-boy friend, she does state that she will inform staff she feels like she needs to physically hurt herself. She admits to sleeping through the night last night, denies any issues with eating, and denies any side effects to medications. She states that she is feeling better in regards to her influenza A. MENTAL STATUS EXAMINATION: Patient is walking around the unit and dressed in hospital clothing, she is crying. She excused herself to get her PRN Zyprexa but continued the interview directly after. She has poor eye contact and exhibits psychomotor retardation. She is cooperative and open. She is alert and oriented 3. She is talkative speaking a normal rate and tone. She admits that her mood is depressed and rates it as 8/10 in addition to anxiety. She is visibly tearful and her affect is consistent with her mood. Her thought processes continue to be erratic. She denies delusions or hallucinations. She is currently able to contract for safety, although she does admit to intermittent thoughts of hurting herself which she states she will notify staff if she continues to have the urge. Her insight and judgment continue to be impaired. Her attention is appropriate. Her recent, remote, and immediate memory are intact. Intellectual function remains impaired. ASSESSMENT: 1. Major depressive disorder, severe, recurrent MANAGEMENT PLAN: 1. Continue Seroquel 12.5 mg by mouth 3 times a day when necessary anxiety. 2. Continue Seroquel 100 mg by mouth daily at bedtime. 3. Continue Lamictal 25 mg by mouth every morning. 4. Continue Lamictal 50 mg by mouth daily at bedtime. 5. Continue Trileptal 150 mg by mouth twice a day. 6. Continue Zyprexa 5 mg by mouth every 6 hours when necessary anxiety and agitation. 7. Continue Effexor XR 75 mg by mouth every morning. 8. Continue medication management in addition to individual group therapies. Vital Signs Vital Signs Date Time Temp Pulse Resp B/P Pulse Ox O2 Delivery O2 Flow Rate FiO2 05/31/16 06:21 100.0 88 18 110/62 05/27/16 18:00 Room Air Current Medications Current Medications Acetaminophen (Tylenol) 650 mg Q6HP PRN PO HEADACHE or DISCOMFORT Last administered on 05/29/16t 19:48; Start 05/08/16 at 22:15; Stop 06/07/16 at 22:14 Al Hydrox/Mg Hydrox/Simethicone (Mylanta) 30 ml Q4HP PRN PO HEARTBURN/ INDIGESTION; Start 05/08/16 at 22:15; Stop 06/07/16 at 22:14 Home Med (Med Rec Complete!) ASDIRECTED XX ; Start 05/08/16 at 21:45; Stop at 22:31; Status DC Ibuprofen (Advil) 600 mg Q8HP PRN PO PAIN OR FEVER Last administered on 15:41; Start 05/24/16 at 09:30; Stop 06/23/16 at 09:29 Ketoconazole (Nizoral) 1 dose BID TOP Last administered on 05/13/16 08:26; Start 05/09/16 at 09:00; Stop 05/13/16 at 10:00; Status DC Ketoconazole (Nizoral) 1 dose BID TOP Last administered on 05/27/16 20:47; Start 05/13/16 at 10:00; Stop 05/28/16 at 10:17; Status DC Lamotrigine (LaMICtal) 25 mg BID PO Last administered on 05/20/16 08:34; Start 05/15/16 at 21:00; Stop 05/20/16 at 09:43; Status DC Lamotrigine (LaMICtal) 25 mg QAM PO Last administered on 05/31/16 09:18; Start 05/21/16 at 09:00; Stop 06/20/16 at 08:59 Lamotrigine (LaMICtal) 25 mg QHS PO Last administered on 05/14/16 20:42; Start 05/10/16 at 21:00; Stop 05/15/16 at 14:39; Status DC Lamotrigine (LaMICtal) 50 mg QHS PO Last administered on 05/30/16 21:13; Start 05/20/16 at 21:00; Stop 06/19/16 at 20:59 Magnesium Hydroxide (Milk Of Magnesia) 30 ml DAILYPRN PRN PO CONSTIPATION; Start 05/08/16 at 22:15; Stop 06/07/16 at 22:14 Nicotine (Nicoderm Cq 7 Mg) 1 patch DAILY TD Last administered on 05/29/16 08: 11; Start 05/11/16 at 09:00; Stop 06/10/16 at 08:59 Non-Formulary Medication ( See Comment Field Below ) SEE COMMENTS SECTION 1T @10 XX ; Start 05/15/16 at 10:00; Stop 05/15/16 at 10:00; Status DC Non-Formulary Medication ( See Comment Field Below ) SEE LABEL COMMENTS DAILY XX ; Start 05/13/16 at 09:00; Stop 05/13/16 at 12:15; Status DC Non-Formulary Medication ( See Comment Field Below ) SEE LABEL COMMENTS SECTION 1T@10 XX Last administered on 05/15/16 10:00; Start 05/15/16 at 10:00; Stop 05/15/16 at 23:59; Status DC Olanzapine (ZyPREXA ZYDIS) 5 mg Q6HP PRN PO ANXIETY/AGITATION Last administered on 05/31/16 11:00; Start 05/09/16 at 10:15; Stop 06/08/16 at 10:14 Olanzapine (Zyprexa Intramuscular) 5 mg Q6HP IM ; Start 05/27/16 at 21:15; Stop 05/27/16 at 21:24; Status DC Olanzapine (Zyprexa Intramuscular) 5 mg Q6HP PRN IM ANXIETY/AGITATION Last administered on 05/28/16 15:40; Start 05/27/16 at 21:30; Stop 05/30/16 at 14:27 ; Status DC Ondansetron HCl (Zofran) 4 mg Q8HP PRN PO NAUSEA OR VOMITING; Start 05/24/16 at 12:00; Stop 06/23/16 at 11:59 Oseltamivir Phosphate (Tamiflu) 75 mg BID PO Last administered on 05/28/16 09: 51; Start 05/24/16 at 01:15; Stop 05/28/16 at 12:03; Status DC Oxcarbazepine (Trileptal) 150 mg BID PO Last administered on 05/31/16 09:18; Start 05/09/16 at 09:00; Stop 06/08/16 at 08:59 Quetiapine Fumarate (SEROquel) 12.5 mg TID@,, PO Last administered on 05/22 08:44; Start 05/09/16 at 08:00; Stop 05/22/16 at 10:13; Status DC Quetiapine Fumarate (SEROquel) 12.5 mg TIDP PRN PO ANXIETY Last administered on 05/30/16 22:39; Start 05/22/16 at 10:15; Stop 06/21/16 at 10:14 Quetiapine Fumarate (SEROquel) 100 mg QHS PO Last administered on 05/30/16 21: 47; Start 05/13/16 at 21:00; Stop 06/12/16 at 20:59 Trazodone HCl (Desyrel) 150 mg QHS PO Last administered on 05/12/16 21:21; Start 05/08/16 at 21:00; Stop 05/13/16 at 09:44; Status DC Tuberculin PPD (Aplisol, Ppd) 5 units 1T@10 ID Last administered on 05/13/16 15:27; Start 05/13/16 at 10:00; Stop 05/13/16 at 23:59; Status DC Venlafaxine HCl (Effexor Xr) 75 mg QAM PO Last administered on 05/31/16 09 :18; Start 05/09/16 at 09:00; Stop 06/08/16 at 08:59 Allergies Coded Allergies: No Known Allergies (Unverified , 02/22/16) GME ATTESTATION GME ATTESTATION My preceptor for this patient encounter was Dr. Chakraborty, who was physically present in the building during the encounter and was fully available. As needed , all aspects of the patient interview, examination, medical decision making process, and medical care plan development were reviewed and approved by the preceptor. Preceptor is aware and concurs with the plan as stated in the body of this note and will attest to such by his cosignature. LEANDRO TORRES May 31, 2016 11:23
[2016-05-31 18:00] VITALS: BP 111/63
[2016-05-31] MEDS: QUEtiapine FUMARATE 100 MG TAB PO SCH (22:31)
[2016-05-31] MEDS: QUEtiapine FUMARATE 12.5 MG HALF-TAB PO PRN (22:31)
[2016-06-01 06:57] VITALS: BP 110/71
[2016-06-01] MEDS: NICOTINE 7 MG/24 HR TRANSDERMAL TD SCH (09:00)
[2016-06-01] MEDS: VENLAFAXINE **XR** 75MG CAPSULE PO SCH (09:05)
[2016-06-01] MEDS: lamoTRIgine 25 MG TAB PO SCH ×2 (09:05→20:27)
[2016-06-01] MEDS: OXcarbazepine 150 MG TAB PO SCH ×2 (09:05→20:27)
[2016-06-01] MEDS: OLANZapine ORAL DISINTEGRATING TAB 5MG PO PRN ×2 (09:30→20:29)
[2016-06-01] MEDS: QUEtiapine FUMARATE 12.5 MG HALF-TAB PO PRN (11:25)
[2016-06-01 18:00] VITALS: BP 100/65
[2016-06-01] MEDS: QUEtiapine FUMARATE 100 MG TAB PO SCH (20:26)
[2016-06-02 06:16] VITALS: BP 101/57
[2016-06-02] MEDS: NICOTINE 7 MG/24 HR TRANSDERMAL TD SCH (09:00)
[2016-06-02] MEDS: VENLAFAXINE **XR** 75MG CAPSULE PO SCH (09:03)
[2016-06-02] MEDS: lamoTRIgine 25 MG TAB PO SCH ×2 (09:04→20:55)
[2016-06-02] MEDS: OXcarbazepine 150 MG TAB PO SCH ×2 (09:04→20:55)
[2016-06-02 18:00] VITALS: BP 129/74
[2016-06-02] MEDS: QUEtiapine FUMARATE 100 MG TAB PO SCH (21:49)
[2016-06-03 06:43] VITALS: BP 108/57
[2016-06-03] MEDS: NICOTINE 7 MG/24 HR TRANSDERMAL TD SCH (09:00)
[2016-06-03] MEDS: OXcarbazepine 150 MG TAB PO SCH ×2 (09:07→20:22)
[2016-06-03] MEDS: VENLAFAXINE **XR** 75MG CAPSULE PO SCH (09:07)
[2016-06-03] MEDS: lamoTRIgine 25 MG TAB PO SCH ×2 (09:07→20:24)
[2016-06-03] MEDS: OLANZapine ORAL DISINTEGRATING TAB 5MG PO PRN (10:40)
[2016-06-03] MEDS: QUEtiapine FUMARATE 12.5 MG HALF-TAB PO PRN (16:08)
[2016-06-03] MEDS: QUEtiapine FUMARATE 100 MG TAB PO SCH (22:27)
[2016-06-04 06:35] VITALS: BP 139/86
--- NOTE | 2016-06-04 08:07 | IPN ---
DATE OF VISIT: 06/03/2016 21-year-old female with history of major depressive disorder, severe since childhood. The patient was readmitted after a few days of discharge from our unit. The patient became very depressed and suicidal, unable to contract for safety. The patient at that time could not return to home since she has an order of protection and she cannot see her baby without supervision so she went to live with a friend. The patient has no support in the [facility]. The patient wants to continue living nearby since she wants to have custody of her child. MEDICATIONS: - Seroquel 12.5 mg by mouth three times a day - Lamictal 25 mg by mouth every morning and 50 mg by mouth nightly - Seroquel 100 mg by mouth nightly - Trileptal 150 mg by mouth twice a day - Effexor XR 75 mg by mouth every morning. OBJECTIVE: GENERAL: The patient continues to have frequent fluctuations of her mood and emotions. At times she cries by herself in her room and also has intermittent suicidal thoughts and urges to cut. There is no evidence of psychotic symptoms. No auditory or visual hallucinations. The patient is denying side effects from the medication. MENTAL STATUS EXAMINATION: The patient is dressed in [facility]. The patient is cooperative during the exam. Speech is soft and monotone. Mood is depressed and anxious. Affect is restricted, labile. No evidence of delusions or hallucinations. Memory is intact. The patient is fully oriented. Associations are intact. Thinking is logical. The patient reports intermittent suicidal thoughts, no homicidal ideation. Insight and judgment is limited. ASSESSMENT: Major depressive disorder, severe, recurrent. PLAN: 1. Continue with Seroquel 12.5 mg by mouth three times a day as needed. 2. Continue with Seroquel 100 mg by mouth nightly. 3. Increase Lamictal to 50 mg by mouth twice a day. 4. Continue with Trileptal 150 mg by mouth twice a day. This medication will be tapered once Lamictal is at the therapeutic dose. 5. Continue with Effexor XR 75 mg by mouth every morning.
[2016-06-04] MEDS: lamoTRIgine 25 MG TAB PO SCH ×2 (08:54→20:10)
[2016-06-04] MEDS: OXcarbazepine 150 MG TAB PO SCH ×2 (08:54→20:10)
[2016-06-04] MEDS: VENLAFAXINE **XR** 75MG CAPSULE PO SCH (08:54)
[2016-06-04] MEDS: NICOTINE 7 MG/24 HR TRANSDERMAL TD SCH (08:55)
[2016-06-04] MEDS: QUEtiapine FUMARATE 12.5 MG HALF-TAB PO PRN (14:32)
[2016-06-04] MEDS: ACETAMINOPHEN TAB 650MG DOSE (2X325MG) PO PRN (16:30)
[2016-06-04 18:00] VITALS: BP 118/75
[2016-06-04] MEDS: IBUPROFEN 600 MG TAB PO PRN (18:01)
--- NOTE | 2016-06-04 18:15 | IPN ---
DATE: 06/04/2016 A 21-year-old female with a history of major depressive disorder since childhood. The patient was readmitted after a few days of discharge from our unit. The patient became very depressed and suicidal. The patient was unable to contract for safety. The patient, at that time, could not return home since she has an Order of Protection and she cannot see her baby without supervision. The patient went to live with a friend. The patient has no support in the [facility], but the patient wants to continue living nearby since she wants to recover the custody of her child. MEDICATIONS: - Seroquel 12.5 mg by mouth three times a day - Lamictal 50 mg by mouth twice a day - Seroquel 100 mg by mouth nightly - Trileptal 150 mg by mouth twice a day - Effexor XR 75 mg by mouth every morning SUBJECTIVE: "I feel happy because I will see my baby today." OBJECTIVE: The patient continues to complain of insomnia. She denies having nightmares but reports vivid dreams, which are bizarre. The patient denied any suicidal thought or urges to cut during the interview. The patient stated that today she feels a boost of energy. There is no evidence of psychotic symptoms. No auditory or visual hallucinations. Denies side effects from medication. Reports poor appetite. MENTAL STATUS EXAMINATION: The patient is dressed in [facility]. The patient is cooperative during the exam. Speech is soft and monotone. Mood is depressed. Affect is restricted. No evidence of delusions or hallucinations. Memory is intact. The patient is fully oriented. Associations are intact. Thinking is logical. Thought content is appropriate. The patient is able to contract for safety during the interview and denies suicidal or homicidal ideation. Insight and judgment is limited. ASSESSMENT: Major depressive disorder, severe, recurrent. PLAN: 1. Continue with Seroquel 12.5 mg by mouth three times a day plus 100 mg by mouth nightly. 2. Continue with Lamictal 50 mg by mouth twice a day. 3. Continue with Trileptal 150 mg by mouth twice a day. This medication will be tapered once Lamictal is at therapeutic dose. 4. Continue Effexor XR 75 mg by mouth every morning.
[2016-06-04] MEDS: QUEtiapine FUMARATE 100 MG TAB PO SCH (21:10)
[2016-06-05 06:37] VITALS: BP 118/84
[2016-06-05] MEDS: NICOTINE 7 MG/24 HR TRANSDERMAL TD SCH (08:18)
[2016-06-05] MEDS: OXcarbazepine 150 MG TAB PO SCH ×2 (08:20→20:02)
[2016-06-05] MEDS: lamoTRIgine 25 MG TAB PO SCH ×2 (08:20→20:02)
[2016-06-05] MEDS: VENLAFAXINE **XR** 75MG CAPSULE PO SCH (08:20)
[2016-06-05] MEDS: QUEtiapine FUMARATE 12.5 MG HALF-TAB PO PRN (14:17)
[2016-06-05] MEDS: OLANZapine ORAL DISINTEGRATING TAB 5MG PO PRN (15:14)
--- NOTE | 2016-06-05 15:15 | IPN ---
DATE: 06/05/2016 21-year-old female with a history of major depressive disorder since childhood. The patient was readmitted after a few days of discharge from our unit. The patient became very depressed and suicidal. The patient was unable to contract for safety, at that time could not return home since has an order of protection and she cannot see her baby without supervision. The patient went to live with a friend. The patient has no support in the [facility], but wants to continue living nearby since she wants to recover the custody of her child. MEDICATIONS: - Seroquel 12.5 mg by mouth three times a day - Lamictal 50 mg by mouth twice a day - Seroquel 100 mg by mouth at night - Trileptal 150 mg by mouth twice a day - Effexor XR 75 mg by mouth in the morning SUBJECTIVE: "I am feeling better lately." OBJECTIVE: The patient reports improvement on her mood. Says, "I am done with my boyfriend." The patient is interacting a little better with other patients and staff. She has not been crying for the last 48 hours, although she continues to have mood fluctuations and is emotionally labile. The patient denies side effects from the medications. MENTAL STATUS EXAMINATION: The patient is dressed in [facility]. The patient is cooperative during the exam. Speech is soft and monotone. Mood is depressed and anxious, although for the last 48 hours there is some improvement. No evidence of delusions or hallucinations. Memory is fair. The patient is fully oriented. Associations are intact. Thinking is logical. Thought content is appropriate. The patient is able to contact for safety during the interview and denies suicidal or homicidal ideation while in the unit. Insight and judgment limited. Her urges to cut has decreased in the last 48 hours. ASSESSMENT: Major depressive disorder, severe, recurrent. PLAN: 1. Continue with Seroquel 12.5 mg by mouth three times a day plus 100 mg by mouth at night. 2. Continue with Lamictal 50 mg by mouth twice a day. 3. Continue Trileptal 150 mg by mouth twice a day. This medication will be tapered once Lamictal is at a therapeutic level. 4. Effexor XR 75 mg by mouth in the morning.
[2016-06-05 18:00] VITALS: BP 110/62
[2016-06-05] MEDS: QUEtiapine FUMARATE 100 MG TAB PO SCH (22:12)
[2016-06-06 06:38] VITALS: BP 128/71
[2016-06-06] MEDS: NICOTINE 7 MG/24 HR TRANSDERMAL TD SCH (08:16)
[2016-06-06] MEDS: lamoTRIgine 25 MG TAB PO SCH ×2 (08:18→20:15)
[2016-06-06] MEDS: OXcarbazepine 150 MG TAB PO SCH ×2 (08:18→20:15)
[2016-06-06] MEDS: VENLAFAXINE **XR** 75MG CAPSULE PO SCH (08:18)
[2016-06-06] MEDS: ACETAMINOPHEN TAB 650MG DOSE (2X325MG) PO PRN (11:16)
[2016-06-06] MEDS: IBUPROFEN 600 MG TAB PO PRN (11:50)
--- NOTE | 2016-06-06 17:06 | IPN ---
DATE: 06/06/2016 A 21-year-old female with a history of major depressive disorder since childhood. The patient was readmitted after a few days of discharge from our unit. The patient became very depressed and suicidal. The patient was unable to contract for safety. At that time, could not return home since had an Order of Protection and she cannot see her baby without supervision. The patient went to live with a friend. The patient has no support in the [facility] but wants to continue living nearby as she wants to recover the custody of her child. MEDICATIONS: - Seroquel 12.5 mg by mouth three times a day plus 100 mg by mouth nightly - Lamictal 50 mg by mouth twice a day - Trileptal 150 mg by mouth twice a day - Effexor 75 mg by mouth every morning SUBJECTIVE: "I'm feeling better." The patient reports improvement of her mood. The patient reports some problem last night dealing with her roommate and insomnia. She had poor eye contact and reports a decrease of energy from yesterday. She hopes she can be discharged soon, although her mood continues to fluctuate and is difficult for her to remain stable. The patient has intermittent thoughts of harming herself. Her appetite is improving slowly. Denies side effects from medication. She is motivated for treatment. No evidence of psychotic symptoms. No auditory or visual hallucinations or delusions. MENTAL STATUS EXAMINATION: The patient is dressed in [facility]. The patient is cooperative during exam. Speech is soft and monotone. The patient feels more depressed and anxious today than yesterday. No evidence of delusions or hallucinations. Memory is fair. The patient is fully oriented. Associations are intact. Thinking is logical. Thought content is appropriate. The patient is able to contract for safety on our unit and denies suicidal or homicidal ideation. Insight and judgment is limited. ASSESSMENT: Major depressive disorder, severe, recurrent. PLAN: 1. Continue with Seroquel 12.5 mg by mouth three times a day plus 100 mg by mouth nightly. 2. Lamictal 50 mg by mouth twice a day. 3. Trileptal 150 mg by mouth twice a day. 4. Effexor XR 75 mg by mouth every morning. 5. Zyprexa as needed for agitation.
[2016-06-06 18:00] VITALS: BP 117/63
[2016-06-06] MEDS: QUEtiapine FUMARATE 100 MG TAB PO SCH (22:07)
[2016-06-07 06:47] VITALS: BP 115/59
[2016-06-07] MEDS: NICOTINE 7 MG/24 HR TRANSDERMAL TD SCH (08:40)
[2016-06-07] MEDS: OXcarbazepine 150 MG TAB PO SCH ×2 (08:42→20:06)
[2016-06-07] MEDS: VENLAFAXINE **XR** 75MG CAPSULE PO SCH (08:42)
[2016-06-07] MEDS: lamoTRIgine 25 MG TAB PO SCH ×2 (08:43→20:06)
[2016-06-07] MEDS: OLANZapine ORAL DISINTEGRATING TAB 5MG PO PRN (14:31)
--- NOTE | 2016-06-07 16:33 | IPN ---
DATE: 06/07/2016 A 21-year-old female with a long history of major depressive disorder since childhood. Patient was readmitted after a few days of discharge from our unit. Patient became very depressed and suicidal. Patient was unable to contract for safety. At that time could not return home since had an order to protection, and she cannot see her baby without supervision. Patient went to live with a friend. Patient has no support in the [facility] but wants to continue living nearby, and she wants to recover the custody of her child. MEDICATIONS: - Lamictal 50 mg by mouth twice a day - Seroquel 12.5 mg by mouth three times a day plus 100 mg by mouth at bedtime - Trileptal 150 mg by mouth twice a day - Effexor 75 mg by mouth every morning SUBJECTIVE: "I'm very sad today." OBJECTIVE: The patient was wandering the halls crying. Upon further questions, the patient stated that she is very depressed, because she misses her daughter, and she believes her ex-boyfriend will take her daughter away. She reported that she is not "over him" and continues to miss him. Patient continues to have intermittent thoughts of harming herself, but she is able to contract for safety in our unit. Her appetite is improving slowly. She denies any side effect from the medications. There is no evidence of psychotic symptoms. No auditory or visual hallucinations or delusions. MENTAL STATUS EXAMINATION: Patient dressed in [facility]. Patient is cooperative. She is labile and tearful. Speech is soft and monotone. Patient continues depressed and anxious, crying during part of the session. Denies auditory or visual hallucinations. No evidence of delusions. Patient is fully oriented. Associations are intact. Thinking is logical. Thought content is appropriate. Patient is able to contract for safety in our unit and denies suicidal or homicidal ideation during the interview, although she admits has intermittent suicidal thoughts. Insight and judgment are limited. ASSESSMENT: Major depressive disorder, severe, recurrent. PLAN: 1. Increase Lamictal to 50 mg by mouth every morning and 75 mg by mouth at bedtime. 2. Continue Seroquel 12.5 mg by mouth three times a day plus 100 mg by mouth at bedtime. 3. Trileptal 150 mg by mouth twice a day. 4. Effexor XR 75 mg by mouth every morning. 5. Continue Zyprexa as needed for agitation.
[2016-06-07 18:00] VITALS: BP 120/70
[2016-06-07] MEDS: QUEtiapine FUMARATE 100 MG TAB PO SCH (23:02)
[2016-06-08 06:37] VITALS: BP 145/64
[2016-06-08] MEDS: VENLAFAXINE **XR** 75MG CAPSULE PO SCH (08:42)
[2016-06-08] MEDS: OXcarbazepine 150 MG TAB PO SCH ×2 (08:42→19:33)
[2016-06-08] MEDS: lamoTRIgine 25 MG TAB PO SCH ×2 (08:43→19:33)
[2016-06-08] MEDS: NICOTINE 7 MG/24 HR TRANSDERMAL TD SCH (08:43)
[2016-06-08] MEDS: OLANZapine ORAL DISINTEGRATING TAB 5MG PO PRN (15:30)
[2016-06-08 18:19] VITALS: BP 129/76
[2016-06-08] MEDS: QUEtiapine FUMARATE 12.5 MG HALF-TAB PO PRN (19:33)
[2016-06-08] MEDS: QUEtiapine FUMARATE 100 MG TAB PO SCH (19:33)
[2016-06-09 06:33] VITALS: BP 107/60
[2016-06-09] MEDS: NICOTINE 7 MG/24 HR TRANSDERMAL TD SCH (08:18)
[2016-06-09] MEDS: VENLAFAXINE **XR** 75MG CAPSULE PO SCH (08:20)
[2016-06-09] MEDS: lamoTRIgine 25 MG TAB PO SCH ×2 (08:20→20:47)
[2016-06-09] MEDS: OXcarbazepine 150 MG TAB PO SCH ×2 (08:20→20:47)
[2016-06-09] MEDS: OLANZapine ORAL DISINTEGRATING TAB 5MG PO PRN ×2 (14:40→21:18)
[2016-06-09 18:00] VITALS: BP 116/64
[2016-06-09] MEDS: QUEtiapine FUMARATE 100 MG TAB PO SCH (21:18)
[2016-06-10 06:38] VITALS: BP 135/65
[2016-06-10] MEDS: VENLAFAXINE **XR** 75MG CAPSULE PO SCH (08:37)
[2016-06-10] MEDS: lamoTRIgine 25 MG TAB PO SCH ×2 (08:37→19:58)
[2016-06-10] MEDS: NICOTINE 7 MG/24 HR TRANSDERMAL TD SCH (08:38)
[2016-06-10] MEDS: OXcarbazepine 150 MG TAB PO SCH ×2 (08:38→19:58)
[2016-06-10] MEDS: OLANZapine ORAL DISINTEGRATING TAB 5MG PO PRN (16:49)
--- NOTE | 2016-06-10 17:07 | IPN ---
DATE: 06/10/2016 21-year-old female with long history of major depressive disorder since childhood. She was readmitted after recent discharge from our unit. Patient has no support in the state of [place]. She claimed to live with her ex-boyfriend and child but she cannot return home since she has an order of protection and she cannot see her baby without supervision. MEDICATIONS: - Lamictal 50 mg by mouth every morning and 75 mg by mouth nightly - Seroquel 12.5 mg by mouth three times a day and 100 mg by mouth nightly - Trileptal 150 mg by mouth twice a day - Effexor 75 mg by mouth every morning OBJECTIVE: Patient continues with significant mood swings today. She is less labile, less tearful, and less depressed. She says that she called Child Protective Services (CPS) to complain about her ex-boyfriend and making statements such as "I'm over him." No evidence of psychotic symptoms. No auditory or visual hallucinations or delusions. MENTAL STATUS EXAMINATION: Patient is dressed in [facility]. Patient is cooperative. Patient is less labile, less tearful. Speech is still soft and monotone and has some degree of psychomotor retardation. She continues depressed and anxious, not tearful. No auditory or visual hallucinations. No delusions. Patient is fully oriented, associations are intact. Thinking is logical. Thought content is appropriate. Patient is able to contract for safety and denies suicidal or homicidal ideation during the interview, although she admits to have intermittent suicidal thoughts. Insight and judgment is limited. ASSESSMENT: 1. Major depressive disorder, severe, recurrent. PLAN: 1. Continue Lamictal 50 mg by mouth every morning and 75 mg by mouth nightly. 2. Continue Seroquel 12.5 mg by mouth three times a day and 100 mg by mouth nightly. 3. Trileptal 150 mg by mouth twice a day. 4. Effexor XR 75 mg by mouth every morning. 5. Zyprexa as needed for agitation.
[2016-06-10 18:00] VITALS: BP 133/71
[2016-06-10] MEDS: QUEtiapine FUMARATE 100 MG TAB PO SCH (19:58)
[2016-06-11 06:37] VITALS: BP 146/67
[2016-06-11] MEDS: VENLAFAXINE **XR** 75MG CAPSULE PO SCH (08:31)
[2016-06-11] MEDS: OXcarbazepine 150 MG TAB PO SCH ×2 (08:31→20:08)
[2016-06-11] MEDS: lamoTRIgine 25 MG TAB PO SCH ×2 (08:32→20:08)
[2016-06-11] MEDS: NICOTINE 7 MG/24 HR TRANSDERMAL TD SCH (08:32)
[2016-06-11 18:00] VITALS: BP 126/64
--- NOTE | 2016-06-11 18:21 | IPN ---
DATE: 06/11/2016 21-year-old female with long history of major depressive disorder since childhood. She was readmitted after recent discharge from our unit. Patient has no support in the [facility]. She came to live with her ex-boyfriend and child but she cannot return home since she has an order of protection and she cannot see her baby without supervision. MEDICATIONS: - Lamictal 50 mg by mouth every morning and 75 mg by mouth nightly - Seroquel 12.5 mg by mouth three times a day plus 100 mg by mouth nightly - Trileptal 150 mg by mouth twice a day - Effexor 75 mg by mouth every morning OBJECTIVE: Patient is requesting to be discharged to a [facility]. We discussed the treatment plan. Patient continues to display significant mood swings and emotional instability. She becomes tearful and labile and suicidal for little triggers. Patient reports no side effect from medication. There is no evidence of psychotic symptoms. No auditory or visual hallucinations or delusions. Patient continues to have intermittent suicidal thoughts. MENTAL STATUS EXAMINATION: Patient is dressed in [facility]. Patient is cooperative during exam. Patient is reporting improvement but again patient is having significant mood swings and continues to have intermittent suicidal thoughts. Speech is soft and monotone. Mood is depressed and anxious. Affect is labile. No delusions or hallucinations. Memory is fair. Patient is fully oriented, associations are intact. Thinking is logical. Thought content is appropriate. Insight and judgment is limited. ASSESSMENT: 1. Major depressive disorder, severe, recurrent. PLAN: 1. Continue with Lamictal 50 mg by mouth every morning and 75 mg by mouth nightly. 2. Continue Seroquel 12.5 mg by mouth three times a day plus 100 mg by mouth nightly. 3. Trileptal 150 mg by mouth twice a day. 4. Effexor XR 75 mg by mouth every morning. 5. Zyprexa as needed for agitation.
[2016-06-11] MEDS: QUEtiapine FUMARATE 100 MG TAB PO SCH (21:25)
[2016-06-11] MEDS: QUEtiapine FUMARATE 12.5 MG HALF-TAB PO PRN (22:18)
[2016-06-11] MEDS: OLANZapine ORAL DISINTEGRATING TAB 5MG PO PRN (23:05)
[2016-06-12 06:39] VITALS: BP 123/74
[2016-06-12] MEDS: NICOTINE 7 MG/24 HR TRANSDERMAL TD SCH (08:14)
[2016-06-12] MEDS: lamoTRIgine 25 MG TAB PO SCH ×2 (08:15→20:27)
[2016-06-12] MEDS: OXcarbazepine 150 MG TAB PO SCH ×2 (08:15→20:28)
[2016-06-12] MEDS: VENLAFAXINE **XR** 75MG CAPSULE PO SCH (08:15)
[2016-06-12] MEDS: QUEtiapine FUMARATE 12.5 MG HALF-TAB PO PRN ×2 (08:45→22:27)
[2016-06-12] MEDS: OLANZapine ORAL DISINTEGRATING TAB 5MG PO PRN (10:07)
[2016-06-12 18:00] VITALS: BP 113/70
--- NOTE | 2016-06-12 18:18 | IPN ---
DATE: 06/12/2016 A 21-year-old female with long history of major depressive disorder since childhood. She was re-admitted after recent discharge from our unit. The patient has no support in the State [facility]. She came to live with her ex-boyfriend and child but she cannot return home since she has an order of protection and she cannot see her baby without supervision. MEDICATIONS: - Lamictal 50 mg by mouth every morning and 75 mg by mouth at bedtime - Seroquel 12.5 mg by mouth three times a day plus 100 mg by mouth at bedtime - Trileptal 150 mg by mouth twice a day - Effexor XR 75 mg by mouth every morning SUBJECTIVE: "I'm feeling very good today." OBJECTIVE: The patient continues to request to be discharged. However, she admits that she has significant mood swings and intermittently has suicidal thoughts. The patient has no support in the [facility] and she cannot leave with her child since she has an order of protection. The patient would [facility]. However, she is, at this point, not stable enough and has no support. MENTAL STATUS EXAMINATION: The patient is dressed in [facility]. The patient is cooperative during examination. The patient reports improvement and is requesting to be discharged. However, she admits to having intermittent suicidal thoughts and mood swings. Speech is soft and monotone. Mood is depressed and anxious. Affect is labile. No delusions or hallucinations. Memory is fair. The patient is fully oriented. Associations are intact. Thinking is logical. Thought content is appropriate. Insight and judgment is limited. ASSESSMENT: Major depressive disorder, severe, recurrent. PLAN: 1. Increase Lamictal to 75 mg by mouth twice a day. 2. Decrease Seroquel to 12.5 mg by mouth twice a day plus 100 mg by mouth at bedtime. 3. Decrease Trileptal to 75 mg by mouth twice a day. 4. Continue Effexor XR 75 mg by mouth every morning.
[2016-06-12] MEDS: QUEtiapine FUMARATE 100 MG TAB PO SCH (22:17)
[2016-06-13 06:35] VITALS: BP 110/54
[2016-06-13] MEDS: NICOTINE 7 MG/24 HR TRANSDERMAL TD SCH (08:27)
[2016-06-13] MEDS: lamoTRIgine 25 MG TAB PO SCH ×2 (08:29→20:04)
[2016-06-13] MEDS: OXcarbazepine 150 MG TAB PO SCH ×2 (08:29→20:04)
[2016-06-13] MEDS: VENLAFAXINE **XR** 75MG CAPSULE PO SCH (08:29)
[2016-06-13 18:00] VITALS: BP 124/74
[2016-06-13] MEDS: OLANZapine ORAL DISINTEGRATING TAB 5MG PO PRN (19:18)
[2016-06-13] MEDS: QUEtiapine FUMARATE 100 MG TAB PO SCH (21:11)
[2016-06-13] MEDS: QUEtiapine FUMARATE 12.5 MG HALF-TAB PO PRN (21:29)
--- NOTE | 2016-06-13 21:45 | IPN ---
DATE: 06/13/2016 21-year-old female with history of major depressive disorder since childhood. She was readmitted after recent discharge from our unit. The patient has no support in the state of [place]. She became very depressed and suicidal. She moved to the [facility] to live with her boyfriend and child, but she cannot return home since she has an order of protection and she cannot see her baby without supervision. MEDICATIONS: - Lamictal 75 mg by mouth twice a day - Trileptal 75 mg by mouth twice a day - Seroquel 12.5 mg by mouth twice a day, plus 100 mg by mouth at bedtime - Effexor XR 75 mg by mouth every a.m. SUBJECTIVE: "I am okay". OBJECTIVE: No major changes. The patient continues having mood swings and intermittent suicidal thoughts. The patient has no psychotic symptoms. No auditory or visual hallucinations or delusions. The patient is agreeable to be transferred to [facility] when a bed becomes available. MENTAL STATUS EXAM: The patient is dressed in [facility]. The patient is cooperative during the exam. The patient reports improvement but continues having significant mood swings. The patient has intermittent suicidal thoughts. Speech is soft and monotone. Mood is depressed and anxious. Affect is labile. No delusions or hallucinations. Memory is fair. The patient is fully oriented. Concentration is intact. Thinking is logical. Thought content is appropriate. Insight and judgment is poor. ASSESSMENT: Major depressive disorder, severe, recurrent. PLAN: 1. Lamictal 75 mg by mouth twice a day. 2. Trileptal 75 mg by mouth twice a day. 3. Seroquel 12.5 mg by mouth twice a day plus 100 mg by mouth at bedtime. 4. Effexor XR 75 mg by mouth every a.m.
[2016-06-14 07:19] VITALS: BP 121/72
[2016-06-14] MEDS: OXcarbazepine 150 MG TAB PO SCH ×2 (08:13→20:07)
[2016-06-14] MEDS: lamoTRIgine 25 MG TAB PO SCH ×2 (08:13→20:05)
[2016-06-14] MEDS: VENLAFAXINE **XR** 75MG CAPSULE PO SCH (08:13)
[2016-06-14] MEDS: NICOTINE 7 MG/24 HR TRANSDERMAL TD SCH (08:57)
[2016-06-14] MEDS: OLANZapine ORAL DISINTEGRATING TAB 5MG PO PRN (16:17)
[2016-06-14 18:00] VITALS: BP 127/78
[2016-06-14] MEDS: QUEtiapine FUMARATE 100 MG TAB PO SCH (20:04)
--- NOTE | 2016-06-15 03:00 | IPN ---
DATE: 06/14/2016 21-year-old female with history of major depressive disorder since childhood. She was readmitted after recent discharge from our unit. The patient has no support in the state [facility]. She moved to the [facility] to live with her boyfriend and child, but she cannot return home since she has an order of protection and she cannot see her baby without supervision. MEDICATIONS: - Lamictal 75 mg by mouth twice a day - Trileptal 75 mg by mouth twice a day - Seroquel 12.5 mg by mouth twice a day, plus 100 mg by mouth at bedtime - Effexor XR 75 mg by mouth every morning SUBJECTIVE: "I still have mood swings." OBJECTIVE: The patient continues to report fluctuations of mood and emotions throughout the day depending if she is thinking of the unfairness of the situation and the fact that her ex-boyfriend has another relationship and has left her. Patient wants to be nearby the baby in order to recover custody. Patient is hypersensitive to interpersonal relationship. She has no support in the state of [place], but she wants to stay here and not go back to live with her mother since she wants to recover custody of the child. MENTAL STATUS EXAMINATION: The patient is dressed in [facility]. The patient is cooperative during the exam. The patient reports improvement but continues with significant mood and emotional fluctuation. The patient has intermittent suicidal thoughts. Speech is soft and monotone. Mood is depressed and anxious. Affect is labile. No delusions or hallucinations. Memory is fair. The patient is fully oriented. Concentration is intact. Thinking is logical. Thought content is appropriate. Insight and judgment is poor. ASSESSMENT: Major depressive disorder, severe, recurrent. PLAN: 1. Continue Lamictal 75 mg by mouth twice a day. 2. Trileptal 75 mg by mouth twice a day. 3. Seroquel 12.5 mg by mouth twice a day as needed plus 100 mg by mouth at bedtime. 4. Effexor XR 75 mg by mouth every morning.
[2016-06-15 06:51] VITALS: BP 125/58
[2016-06-15] MEDS: lamoTRIgine 25 MG TAB PO SCH ×2 (08:42→20:00)
[2016-06-15] MEDS: VENLAFAXINE **XR** 75MG CAPSULE PO SCH (08:42)
[2016-06-15] MEDS: OXcarbazepine 150 MG TAB PO SCH ×2 (08:43→20:00)
[2016-06-15] MEDS: NICOTINE 7 MG/24 HR TRANSDERMAL TD SCH (08:43)
[2016-06-15 18:00] VITALS: BP 116/60
[2016-06-15] MEDS: QUEtiapine FUMARATE 100 MG TAB PO SCH (21:38)
[2016-06-15] MEDS: QUEtiapine FUMARATE 12.5 MG HALF-TAB PO PRN (22:25)
[2016-06-15] MEDS: OLANZapine ORAL DISINTEGRATING TAB 5MG PO PRN (22:25)
[2016-06-16 06:00] VITALS: BP 109/58
[2016-06-16] MEDS: NICOTINE 7 MG/24 HR TRANSDERMAL TD SCH (08:44)
[2016-06-16] MEDS: lamoTRIgine 25 MG TAB PO SCH ×2 (08:46→20:32)
[2016-06-16] MEDS: VENLAFAXINE **XR** 75MG CAPSULE PO SCH (08:46)
[2016-06-16] MEDS: OXcarbazepine 150 MG TAB PO SCH ×2 (08:47→20:32)
[2016-06-16] MEDS: OLANZapine ORAL DISINTEGRATING TAB 5MG PO PRN ×2 (12:48→22:10)
[2016-06-16 18:00] VITALS: BP 102/57
[2016-06-16] MEDS: QUEtiapine FUMARATE 12.5 MG HALF-TAB PO PRN (18:04)
[2016-06-16] MEDS: QUEtiapine FUMARATE 100 MG TAB PO SCH (22:11)
[2016-06-17 06:25] VITALS: BP 123/59
[2016-06-17] MEDS: ACETAMINOPHEN TAB 650MG DOSE (2X325MG) PO PRN (07:33)
[2016-06-17] MEDS: VENLAFAXINE **XR** 75MG CAPSULE PO SCH (08:25)
[2016-06-17] MEDS: OXcarbazepine 150 MG TAB PO SCH (08:26)
[2016-06-17] MEDS: lamoTRIgine 25 MG TAB PO SCH (08:26)
[2016-06-17] MEDS: NICOTINE 7 MG/24 HR TRANSDERMAL TD SCH (09:00)
[2016-06-17] MEDS: OLANZapine ORAL DISINTEGRATING TAB 5MG PO PRN (13:26)
[2016-06-17] MEDS: QUEtiapine FUMARATE 12.5 MG HALF-TAB PO PRN (14:49)
[2016-06-17 18:00] VITALS: BP 127/69
[2016-06-17] MEDS: IBUPROFEN 600 MG TAB PO PRN (20:27)
[2016-06-17] MEDS: QUEtiapine FUMARATE 100 MG TAB PO SCH (20:27)
[2016-06-17] MEDS: lamoTRIgine 100MG TAB PO SCH (20:27)
[2016-06-18 06:36] VITALS: BP 120/65
[2016-06-18] MEDS: VENLAFAXINE **XR** 75MG CAPSULE PO SCH (08:32)
[2016-06-18] MEDS: NICOTINE 7 MG/24 HR TRANSDERMAL TD SCH (08:32)
[2016-06-18] MEDS: lamoTRIgine 25 MG TAB PO SCH (08:32)
[2016-06-18] MEDS: OLANZapine ORAL DISINTEGRATING TAB 5MG PO PRN ×2 (09:05→15:10)
--- NOTE | 2016-06-18 09:56 | IPN ---
DATE OF SERVICE: 06/17/2016 21-year-old female with history of major depressive disorder since childhood. She was re-admitted after a recent discharge from our unit. Patient has no support in the state of [place]. She moved to the [facility] to live with her boyfriend and the child, but she cannot return home since she has an order of protection and she cannot see her baby without supervision. MEDICATIONS: - Lamictal 75 mg by mouth twice a day - Trileptal 75 mg by mouth twice a day - Seroquel 12.5 mg by mouth twice a day, plus 100 mg by mouth nightly - Effexor XR 75 mg by mouth every morning SUBJECTIVE: "I'm feeling good today." OBJECTIVE: Patient continues to have frequent and significant mood fluctuation. Continues to have intermittent suicidal thoughts. She is feeling well today. She is denying suicidal or homicidal ideation. Patient is denying auditory or visual hallucinations or delusions. Patient denies side effect from the medication. MENTAL STATUS EXAMINATION: Patient is dressed with [facility]. Patient is cooperative during exam. Patient is doing better today, but continue with significant mood swings and feelings of depression and intermittent suicidal ideation. Speech is soft and monotone. Affect is labile. Memory is fair. Concentration is fair. Thinking is logical. Thought contents are appropriate. Insight and judgment is poor. ASSESSMENT: Major depressive disorder, severe, recurrent. PLAN: 1. Increase Lamictal to 75 mg by mouth every morning and 100 mg by mouth nightly. 2. Discontinue Trileptal. 3. Continue Seroquel 12.5 mg by mouth twice a day, plus 100 mg by mouth nightly. 4. Effexor XR 75 mg by mouth every morning.
[2016-06-18] MEDS: QUEtiapine FUMARATE 12.5 MG HALF-TAB PO PRN (13:36)
[2016-06-18] MEDS: lamoTRIgine 100MG TAB PO SCH (20:22)
[2016-06-18] MEDS: QUEtiapine FUMARATE 100 MG TAB PO SCH (21:37)
[2016-06-18 22:26] VITALS: BP 147/96
[2016-06-19 06:17] VITALS: BP 133/60
--- NOTE | 2016-06-19 06:41 | IPN ---
DATE: 06/18/2016 21-year-old female with history of major depressive disorder since childhood. She was readmitted after recent discharge from our unit. Patient has no support in [facility]. She moved to the [facility] to live with her boyfriend and the child but cannot return home since she now has an order or protection and cannot see the baby without supervision. MEDICATIONS: - Lamictal 75 mg by mouth twice daily - Seroquel 12.5 mg by mouth twice daily plus 100 mg by mouth daily at bedtime - Effexor XR 75 mg by mouth daily every morning SUBJECTIVE: "I am very happy today, I am going to see my baby". OBJECTIVE: Patient is smiling and happy today because Child Protective Services (CPS) has arranged for her to see the baby. Patient's mood continue to fluctuate. She is very reactive to any negative episode that happens in the environment. She reports intermittent suicidal thoughts, although she denies having any today. Patient is able to contract for safety in our unit. MENTAL STATUS EXAMINATION: Patient is dressed in [facility]. Patient is cooperative. Patient is feeling better today. As above, patient continues to have mood swings, feeling depressed and has intermittent suicidal thoughts. No homicidal ideation. Patient is able to contract for safety during her hospitalization. Speech is soft and monotone. Neck is labile. Patient's insight and judgment is poor. ASSESSMENT: 1. Major depressive disorder, severe, recurrent. PLAN: 1. Continue Lamictal 75 mg by mouth every morning and 100 mg by mouth daily at bedtime. 2. Continue Seroquel 12.5 mg by mouth twice daily plus 100 mg by mouth daily at bedtime. 3. Continue Effexor XR 75 mg by mouth every morning.
[2016-06-19] MEDS: NICOTINE 7 MG/24 HR TRANSDERMAL TD SCH (09:00)
[2016-06-19] MEDS: lamoTRIgine 25 MG TAB PO SCH (09:06)
[2016-06-19] MEDS: VENLAFAXINE **XR** 75MG CAPSULE PO SCH (09:06)
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
[2016-06-19] MEDS ORDERED: QUET1TAB7 PO (10:31)
[2016-06-19] MEDS ORDERED: VENL75CA PO (10:31)
[2016-06-19] MEDS ORDERED: LAMO10TA PO (10:31)
[2016-06-19] MEDS ORDERED: QUET1TAB8 PO (10:31)
[2016-06-19] MEDS ORDERED: LAMI25TA PO (10:31)
[2016-06-19] MEDS ORDERED: NICO7DIS4 TD (11:05)
== END 2016-06-19 13:15 | DRG 751 ==
LOC: M ED 19:24 → M PSY 22:14
PROVIDERS: ADMIT Psychiatry & Neurology Psychiatry; ATTEND Psychiatry & Neurology Psychiatry
DX: F33.2 Major depressive disorder, recurrent severe without psychotic features (principal); F60.3 Borderline personality disorder; Q71.32 Congenital absence of left hand and finger; Z79.899 Other long term (current) drug therapy; M54.5 Low back pain; J10.1 Influenza due to other identified influenza virus with other respiratory manifestations

== ENCOUNTER → 2016-10-28 | Outpatient (CLI) | payer MEDICAID ==
[~2016-10-28] MED LIST changes: +BUSP10TA PO; +CYCL5TAB PO; +DEPO150I IM; +EFFE75CA75 PO; +GABA-282 PO; +GABA-283 PO; +LAMI25TA PO; +LAMO10TA PO; +LAMO200T PO; +NICO7DIS4 TD; +NICODIS TD; +QUET1TAB8 PO; -RISP1TAB41 PO; +RISP1TAB42 PO; +SERO1TAB PO; +SERO200T PO; +TRAZ1TAB14 PO; +VENL150C43 PO; -VENL75CA PO; +VENL75CA2 PO
== END ==
LOC: M OUTALCOH 07:40
PROVIDERS: ATTEND Psychiatry & Neurology Psychiatry
DX: F12.20 Cannabis dependence, uncomplicated (principal); F11.10 Opioid abuse, uncomplicated

== ENCOUNTER 2016-11-04 14:09 | Inpatient (IN) | payer MEDICAID, OTHER ==
[~2016-11-04] VITALS: Ht 152.4 cm; Wt 63.6 kg
[~2016-11-04 14:09] MED LIST changes: -BUSP10TA PO; -CYCL5TAB PO; -DEPO150I IM; -GABA-282 PO; -GABA-283 PO; -LAMO200T PO; -NICODIS TD; -SERO1TAB PO; -SERO200T PO; -VENL150C43 PO
[2016-11-04] MEDS ORDERED: SERO1TAB PO (14:20)
[2016-11-04] MEDS ORDERED: GABA-283 PO (14:20)
[2016-11-04 15:13] LABS: MEAN CORPUSCULAR HEMOGLOBIN 32.1 pg (27.0-33.0); MEAN CORPUSCULAR HGB CONC 34.9 g/dl (32.0-36.5); MEAN CORPUSCULAR VOLUME 91.8 fl (80.0-96.0); RED CELL DISTRIBUTION WIDTH 12.7 % (11.5-14.5); WHITE BLOOD COUNT 6.7 K/mm3 (4.0-10.0)
[2016-11-04 15:22] LABS: CONTROL LINE HCG INT CTR LINE PRESENT
[2016-11-04] MEDS ORDERED: GABA-282 PO (15:33)
[2016-11-04] MEDS ORDERED: DEPO150I IM (15:33)
[2016-11-04] MEDS ORDERED: NICODIS TD (15:33)
[2016-11-04] MEDS ORDERED: SERO200T PO (15:33)
[2016-11-04] MEDS ORDERED: VENL150C43 PO (15:33)
[2016-11-04] MEDS ORDERED: LAMO200T PO (15:33)
[2016-11-04] MEDS ORDERED: BUSP10TA PO (15:33)
[2016-11-04] MEDS ORDERED: CYCL5TAB PO (15:33)
[2016-11-04 15:37] LABS: ALBUMIN 4.2 GM/DL (3.2-5.2); ALBUMIN/GLOBULIN RATIO 1.17 (1.00-1.93); ALKALINE PHOSPHATASE 111 U/L (45-117); ALT/SGPT 20 U/L (12-78); ANION GAP 9 MEQ/L (8-16); AST/SGOT 15 U/L (15-37); BILIRUBIN,DIRECT 0.1 MG/DL (0.0-0.2); BILIRUBIN,TOTAL 0.5 MG/DL (0.2-1.0); BLOOD UREA NITROGEN 5 MG/DL (7-18); CALCIUM LEVEL 9.3 MG/DL (8.5-10.1); CARBON DIOXIDE LEVEL 22 MEQ/L (21-32); CHLORIDE LEVEL 106 MEQ/L (98-107); CREATININE FOR GFR 0.73 MG/DL (0.55-1.02); GLOMERULAR FILTRATION RATE > 60.0 (>60); GLUCOSE, FASTING 91 MG/DL (70-105); POTASSIUM SERUM 3.9 MEQ/L (3.5-5.1); SODIUM LEVEL 137 MEQ/L (136-145); TOTAL PROTEIN 7.8 GM/DL (6.4-8.2)
[2016-11-04 16:15] LABS: METHADONE URINE NEGATIVE (NEGATIVE)
[2016-11-04] MEDS ORDERED: MAALOX 30 ML SUSP *UDC PO PRN (19:30)
[2016-11-04] MEDS ORDERED: MOM 30ML SUSPENSION UDC PO PRN (19:30)
[2016-11-04] MEDS ORDERED: ACETAMINOPHEN TAB 650MG DOSE (2X325MG) PO PRN (19:30)
[2016-11-04] MEDS ORDERED: traZODone 50 MG TAB PO PRN (19:45)
[2016-11-04 20:35] VITALS: BP 138/92
[2016-11-04] MEDS ORDERED: SERTRALINE 100 MG TAB PO ONE (21:00)
[2016-11-04] MEDS: QUEtiapine FUMARATE 200 MG TAB PO SCH (21:28)
[2016-11-04] MEDS: lamoTRIgine 100MG TAB PO SCH (21:28)
[2016-11-04] MEDS: busPIRone 10 MG TAB PO SCH (21:28)
[2016-11-04] MEDS: GABAPENTIN 300 MG CAP PO SCH (21:28)
[2016-11-05 06:24] VITALS: BP 154/64
[2016-11-05] MEDS: GABAPENTIN 300 MG CAP PO SCH ×3 (08:27→21:32)
[2016-11-05] MEDS: busPIRone 10 MG TAB PO SCH ×3 (08:27→21:32)
[2016-11-05] MEDS ORDERED: NICOTINE 21MG/24HR 1 EA TRANSDERMAL TD SCH (09:00)
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
[2016-11-05] MEDS: NICOTINE POLACRILEX 2 MG GUM PO PRN ×2 (13:45→18:46)
[2016-11-05 18:05] VITALS: BP 132/76
[2016-11-05] MEDS: lamoTRIgine 100MG TAB PO SCH (21:32)
[2016-11-05] MEDS: QUEtiapine FUMARATE 200 MG TAB PO SCH (21:32)
--- NOTE | 2016-11-05 21:52 | ECGEPIP ---
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
[2016-11-06 06:36] VITALS: BP 121/73
[2016-11-06] MEDS: busPIRone 10 MG TAB PO SCH ×3 (08:29→21:57)
[2016-11-06] MEDS: NICOTINE POLACRILEX 2 MG GUM PO PRN ×2 (08:29→18:29)
[2016-11-06] MEDS: GABAPENTIN 300 MG CAP PO SCH ×3 (08:29→21:57)
--- NOTE | 2016-11-06 12:38 | MHIPNPDOC ---
[facility] Progress Note Progress Note DATE OF SERVICE: 11/06/16 HISTORY: day 3 of admission for voicing suicide plan to counselor. pt is also exhibiting sexually inappropriate behavior in the community. VITAL SIGNS: See below. NEW TEST RESULTS: Stationary ECG Study [facility] Test Date: 2016-11-05 Pat Name: SHANNAN WADE Department: Room: [place] [address] Gender: F Alliance Manager: REJI : 1995 Requested By: Liv Alvarado Order Number: [id number] Reading MD: Doc Montenegro Measurements Intervals [place] Rate: 111 P: 50 CO: 134 QRS: 48 QRSD: 97 T: 0 QT: 325 QTc: 443 Interpretive Statements SINUS TACHYCARDIA Nonspecific T wave abnormality Electronically Signed On 11-05-2016 21:52:06 EDT by Doc Montenegro DD: DOC MONTENEGRO MD 11/05/16 1435 DT: KOKI 11/05/162151 DS: WAQAS 11/05/[id number]/[id number] CURRENT MEDICATIONS: See below. MENTAL STATUS EXAMINATION: Patient is a 21-year old female, who is petite, dark hair, glasses, absent her left hand, dressed in hospital clothing. Speech: Is childlike in intonation, spontaneous Language skills are good. Thought processes including: goal directed. Thought content:appropriate. Abstract reasoning, and computation: poor. Description of associations: good. Description of abnormal or psychotic thoughts: no psychotic symptoms reported or observed. Pt is no longer thinking of committing suicide. Judgment: poor Insight: limited Orientation: well oriented in all spheres. Recent and remote memory: intact Attention span and concentration: adequate Fund of knowledge: below average, borderline intellectual functioning is suspected. No neurologic work up available. Mood: euthymic. Affect: calm, appropriate DIAGNOSES: Major depressive disorder, severe, recurrent. Cluster B traits: borderline personality tendencies. Cannabis dependence in early remission. 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 Tobacco dependency Anorexia by history Opioid abuse by history ASSESSMENT:pt states she would like to be discharged tomorrow but she is agreeable to remaining in a safe environment until her apartment is ready on November 12, which is Friday. Otherwise [facility]. It is felt given her inability to self-regulate her sexual activity that remaining her will be more secure and safe for her than going to the fci. She agrees with this but does insist she will be safe if she goes to the fci. pt was seen by her Commercial Attorney today. Coiled Tubing Supervisor will be asked to attend a discharge planning meeting this week or next. Pt is in agreement with the plan. Roof Foreman discuss changing her to Depakote for impulse control but Shannan was clear stating, "i don't want any changes to my medications. Her wishes will be respected. MANAGEMENT PLAN: continue close observation, nursing staff and safety techs have been advised that she is to be observed for inappropriate sexual behavior on the unit. Continue medications and monitor sleep and VS. Encouraged involvement in groups and milieu. TIME SPENT: 15 minutes. Vital Signs Vital Signs Date Time Temp Pulse Resp B/P (MAP) Pulse Ox O2 Delivery O2 Flow Rate FiO2 11/06/16 06:36 97.7 76 20 121/73 (89) 11/04/16 19:57 97 Room Air Laboratory Data 24H Labs Laboratory Tests 2 11/06/16 11:27: Chlamydia trachomatis DNA (CEM) POSITIVEH, Neisseria gonorrhoeae DNA (CEM) NEGATIVE Current Medications Current Medications Acetaminophen (Tylenol Tab) 650 mg Q6HP PRN PO HEADACHE or DISCOMFORT; Start at 19:30; Stop 12/04/16 at 19:29 Al Hydrox/Mg Hydrox/Simethicone (Mylanta) 30 ml Q4HP PRN PO HEARTBURN/ INDIGESTION; Start 11/04/16 at 19:30; Stop 12/04/16 at 19:29 Buspirone HCl (Buspar) 10 mg TID PO Last administered on 11/06/16 08:29; Start 11/04/16 at 21:00; Stop 12/04/16 at 20:59 Gabapentin (Neurontin) 300 mg TID PO Last administered on 11/06/16 08:29; Start 11/04/16 at 21:00; Stop 12/04/16 at 20:59 Home Med (Med Rec Complete!) ASDIRECTED XX ; Start 11/04/16 at 15:45; Stop at 15:45; Status DC Lamotrigine (LaMICtal) 300 mg QHS PO Last administered on 11/05/16 21:32; Start 11/04/16 at 21:00; Stop 12/04/16 at 20:59 Magnesium Hydroxide (Milk Of Magnesia) 30 ml DAILYPRN PRN PO CONSTIPATION; Start 11/04/16 at 19:30; Stop 12/04/16 at 19:29 Nicotine (Nicoderm Cq 21mg) 1 patch DAILY TD Last administered on 11/05/16 08: 27; Start 11/05/16 at 09:00; Stop 11/05/16 at 13:30; Status DC Nicotine (Nicorette) 2 mg Q4HP PRN PO NICOTINE WITHDRAWAL Last administered on 11/06/16 08:29; Start 11/05/16 at 13:30; Stop 12/05/16 at 13:29 Quetiapine Fumarate (SEROquel) 200 mg QHS PO Last administered on 11/05/16 21: 32; Start 11/04/16 at 21:00; Stop 12/04/16 at 20:59 Trazodone HCl (Desyrel) 50 mg QHS PRN PO insomnia; Start 11/04/16 at 19:45; Stop 12/04/16 at 19:44 Allergies Coded Allergies: No Known Allergies (Unverified , 02/22/16) Lillian Calixto Nov 06, 2016 12:38
[2016-11-06] MEDS ORDERED: cefTRIAXone SOD 250 MG VIAL (J0696) IM ONE (14:00)
[2016-11-06] MEDS ORDERED: AZITHROMYCIN 250 MG TAB PO ONE (14:00)
[2016-11-06] MEDS ORDERED: QUEtiapine FUMARATE 12.5 MG HALF-TAB PO PRN (14:30)
[2016-11-06] MEDS ORDERED: LIDOCAINE 1% MDV 20ML VIAL IM ONE (14:30)
[2016-11-06 18:20] VITALS: BP 114/71
[2016-11-06] MEDS: QUEtiapine FUMARATE 200 MG TAB PO SCH (21:57)
[2016-11-06] MEDS: lamoTRIgine 100MG TAB PO SCH (21:58)
[2016-11-07 07:02] VITALS: BP 106/55
[2016-11-07] MEDS: GABAPENTIN 300 MG CAP PO SCH ×3 (09:03→21:13)
[2016-11-07] MEDS: busPIRone 10 MG TAB PO SCH ×3 (09:03→21:12)
[2016-11-07] MEDS: NICOTINE POLACRILEX 2 MG GUM PO PRN (09:54)
[2016-11-07] MEDS ORDERED: VENLAFAXINE **XR** 75MG CAPSULE PO ONE (12:30)
--- NOTE | 2016-11-07 13:51 | MHIPNPDOC ---
[facility] Progress Note Progress Note DATE OF SERVICE: 11/07/16 HISTORY: day 4 of admission for depression with Suicidal Ideation. VITAL SIGNS: See below. NEW TEST RESULTS: na CURRENT MEDICATIONS: See below. MENTAL STATUS EXAMINATION: Patient is a 21-year old female, who is petite, dark hair and glasses, absent her left hand. Speech: Is spontaneous Language skills are grossly intact Thought processes including: linear Thought content: appropriate Abstract reasoning, and computation: good. Description of associations: good. Description of abnormal or psychotic thoughts: no evidence of psychosis today, denies suicidal ideation at this time, no homicidal ideation. Judgment: limited Insight: fair. Orientation: oriented in all spheres Recent and remote memory: intact Attention span and concentration: good. Fund of knowledge: adequate Mood: euthymic. Affect: congruent, has range DIAGNOSES: Major depressive disorder, severe, recurrent. Cluster B traits: borderline personality tendencies. Cannabis dependence in early remission. 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 Tobacco dependency Anorexia by history Opioid abuse by history ASSESSMENT: met with pt for 1:1 she is requesting discharge tomorrow. her reason is she feels being in the hospital has disrupted her routine and prevented her from lease signing, going to [employer] and other things she says she needs to complete prior to moving into her new apartment on Friday. We will contact her CM and see if Ginny can come in for a meeting tomorrow. Mariia has completed her couse of antibiotics for her STD. She says she was upset to learn she had chlamydia but it has been a lesson to her as well. She knows that given her behavior recently she has placed herself in a risky position of joe even worse illness. She says she is done drinking and that when she drinks she gets suicidal. So she told us what happened prior to admission which was she was contacting men on line and drinking and started to have suicidal thoughts which she then reported to her counselor. Pt was informed that it was good that she came in. She needed to give herself a time out for a bit. She admits she was sleeping around to make her ex jealous. She believes he still cares for her. Pt has been in contact with her mother in [place] everyday. She states her mother has been worried about her too. pt is eating and taking po fluids regularly. She denies any problems with n/v/ d. She denies constipation. She reports adequate sleep. MANAGEMENT PLAN: DC load planner will attempt to contact Ginny from [facility] for discharge planning meeting tomorrow. If we can arrange the meeting good. If not it is still likely pt will be discharged. She wants to get on her personal routine so she feels ready for her new independent living situation. She has friend in [place] that are helpful and supportive to her. We discussed obtaining a job to fill the long hours of the day and provide her with some income so she can do clay things she enjoys TIME SPENT: 30 minutes. Vital Signs Vital Signs Date Time Temp Pulse Resp B/P (MAP) Pulse Ox O2 Delivery O2 Flow Rate FiO2 11/07/16 07:02 98.5 81 18 106/55 (72) Room Air 11/04/16 19:57 97 Current Medications Current Medications Acetaminophen (Tylenol Tab) 650 mg Q6HP PRN PO HEADACHE or DISCOMFORT; Start at 19:30; Stop 12/04/16 at 19:29 Al Hydrox/Mg Hydrox/Simethicone (Mylanta) 30 ml Q4HP PRN PO HEARTBURN/ INDIGESTION; Start 11/04/16 at 19:30; Stop 12/04/16 at 19:29 Buspirone HCl (Buspar) 10 mg TID PO Last administered on 11/07/16 09:03; Start 11/04/16 at 21:00; Stop 12/04/16 at 20:59 Gabapentin (Neurontin) 300 mg TID PO Last administered on 11/07/16 09:03; Start 11/04/16 at 21:00; Stop 12/04/16 at 20:59 Home Med (Med Rec Complete!) ASDIRECTED XX ; Start 11/04/16 at 15:45; Stop at 15:45; Status DC Lamotrigine (LaMICtal) 300 mg QHS PO Last administered on 11/06/16 21:58; Start 11/04/16 at 21:00; Stop 12/04/16 at 20:59 Magnesium Hydroxide (Milk Of Magnesia) 30 ml DAILYPRN PRN PO CONSTIPATION; Start 11/04/16 at 19:30; Stop 12/04/16 at 19:29 Nicotine (Nicoderm Cq 21mg) 1 patch DAILY TD Last administered on 11/05/16 08: 27; Start 11/05/16 at 09:00; Stop 11/05/16 at 13:30; Status DC Nicotine (Nicorette) 2 mg Q4HP PRN PO NICOTINE WITHDRAWAL Last administered on 11/07/16 09:54; Start 11/05/16 at 13:30; Stop 12/05/16 at 13:29 Quetiapine Fumarate (SEROquel) 12.5 mg Q8HP PRN PO agitation/anxiety; Start at 14:30; Stop 12/06/16 at 14:29 Quetiapine Fumarate (SEROquel) 200 mg QHS PO Last administered on 11/06/16 21: 57; Start 11/04/16 at 21:00; Stop 12/04/16 at 20:59 Trazodone HCl (Desyrel) 50 mg QHS PRN PO insomnia; Start 11/04/16 at 19:45; Stop 12/04/16 at 19:44 Venlafaxine HCl (Effexor Xr) 150 mg DAILY PO ; Start 11/08/16 at 09:00; Stop 12/08/16 at 08:59 Allergies Coded Allergies: No Known Allergies (Unverified , 02/22/16) Lillian Calixto Nov 07, 2016 13:50
[2016-11-07 18:00] VITALS: BP 126/55
[2016-11-07] MEDS: QUEtiapine FUMARATE 200 MG TAB PO SCH (21:13)
[2016-11-07] MEDS: lamoTRIgine 100MG TAB PO SCH (21:13)
[2016-11-08 06:23] VITALS: BP 142/71
[2016-11-08] MEDS: busPIRone 10 MG TAB PO SCH (08:19)
[2016-11-08] MEDS: GABAPENTIN 300 MG CAP PO SCH (08:20)
[2016-11-08] MEDS ORDERED: VENLAFAXINE **XR** 75MG CAPSULE PO SCH (09:00)
[2016-11-08] MEDS ORDERED: BUSP10TA PO (09:56)
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
== END 2016-11-08 10:30 | disposition home or self-care (01) | DRG 885 ==
LOC: M ED 14:09 → M ED INP 19:29 → M PSY 20:30
PROVIDERS: ADMIT Psychiatry & Neurology Psychiatry; ATTEND Psychiatry & Neurology Psychiatry
DX: F33.2 Major depressive disorder, recurrent severe without psychotic features (principal); R45.851 Suicidal ideations; F12.21 Cannabis dependence, in remission; Q71.32 Congenital absence of left hand and finger; F17.210 Nicotine dependence, cigarettes, uncomplicated; M54.6 Pain in thoracic spine; M54.5 Low back pain; Z79.899 Other long term (current) drug therapy

== ENCOUNTER → 2016-11-11 | Outpatient (RCR) | payer MEDICAID ==
[~2016-11-11] MED LIST changes: +BUSP10TA PO; +CYCL5TAB PO; +DEPO150I IM; +GABA-282 PO; +GABA-283 PO; +LAMO200T PO; +NICODIS TD; +SERO1TAB PO; +SERO200T PO; +VENL150C43 PO
== END ==
LOC: M OUTALCOH 11-04 10:42
PROVIDERS: ATTEND Psychiatry & Neurology Psychiatry
DX: F12.20 Cannabis dependence, uncomplicated (principal); F11.10 Opioid abuse, uncomplicated; F17.200 Nicotine dependence, unspecified, uncomplicated

== ENCOUNTER → 2016-12-12 | Outpatient (RCR) | payer MEDICAID | LOC: M OUTALCOH 11-18 15:29 | PROVIDERS: ATTEND Psychiatry & Neurology Psychiatry | DX: F12.20 Cannabis dependence, uncomplicated (principal); F11.10 Opioid abuse, uncomplicated; F17.200 Nicotine dependence, unspecified, uncomplicated ==

== ENCOUNTER → 2016-12-27 | Outpatient (REF) | payer MEDICAID | LOC: M LAB REF 16:50 | PROVIDERS: ATTEND Family Medicine Addiction Medicine | DX: Z12.4 Encounter for screening for malignant neoplasm of cervix (principal) ==

== ENCOUNTER 2017-01-09 10:00 | Outpatient (RCR) | payer MEDICAID | END 2017-01-11 | LOC: M OUTALCOH 10:00 | PROVIDERS: ATTEND Psychiatry & Neurology Psychiatry | DX: F12.20 Cannabis dependence, uncomplicated (principal); F11.10 Opioid abuse, uncomplicated; F17.200 Nicotine dependence, unspecified, uncomplicated ==

== ENCOUNTER → 2017-03-25 | Outpatient (REF) | payer MEDICAID ==
[2017-03-25 13:40] LABS: BASO # 0.1 10^3/uL (0.0-0.2); BASO % 0.7 % (0.0-1.0); EOS # 0.2 10^3/uL (0.0-0.50); EOS % 2.4 % (0.0-3.0); IMMATURE GRANULOCYTE % 0.1 % (0-0); LYMPH # 2.4 10^3/uL (1.5-6.5); LYMPH % 35.9 % (24.0-44.0); MEAN CORPUSCULAR HGB CONC 34.7 g/dl (32.0-36.5); MEAN CORPUSCULAR VOLUME 89.3 fl (80.0-96.0); MONO # 0.6 10^3/uL (0.0-0.8); MONO % 8.5 % (0.0-5.0); NEUTROPHILS # 3.5 10^3/uL (1.8-7.7); NEUTROPHILS % 52.4 % (36.0-66.0); PLATELET COUNT, AUTOMATED 321 10^3/uL (150-450); RED CELL DISTRIBUTION WIDTH 11.3 % (11.5-14.5); WHITE BLOOD COUNT 6.7 10^3/uL (4.0-10.0)
[2017-03-25 14:03] LABS: ALBUMIN 4.1 GM/DL (3.2-5.2); ALBUMIN/GLOBULIN RATIO 1.05 (1.00-1.93); ALKALINE PHOSPHATASE 103 U/L (45-117); ALT/SGPT 18 U/L (12-78); ANION GAP 11 MEQ/L (8-16); AST/SGOT 14 U/L (7-37); BILIRUBIN,TOTAL 0.7 MG/DL (0.2-1.0); BLOOD UREA NITROGEN 11 MG/DL (7-18); CALCIUM LEVEL 9.3 MG/DL (8.5-10.1); CARBON DIOXIDE LEVEL 21 MEQ/L (21-32); CHLORIDE LEVEL 108 MEQ/L (98-107); CHOLESTEROL LEVEL 170 MG/DL (<200); CREATININE FOR GFR 0.72 MG/DL (0.55-1.02); GLOMERULAR FILTRATION RATE > 60.0 (>60); GLUCOSE, FASTING 94 MG/DL (70-105); POTASSIUM SERUM 4.3 MEQ/L (3.5-5.1); SODIUM LEVEL 140 MEQ/L (136-145); TRIGLYCERIDES LEVEL 104 MG/DL (<150)
== END ==
LOC: M LAB REF 13:17
PROVIDERS: ATTEND Family Medicine Addiction Medicine
DX: Z00.01 Encounter for general adult medical examination with abnormal findings (principal)

== ENCOUNTER → 2018-05-07 | Outpatient (REF) | payer MEDICAID ==
[~2018-05-07] MED LIST changes: -ACET50TA PO; +EFFE75CA2 PO; -EFFE75CA75 PO; -GABA-282 PO; -GABA-283 PO; +GABA-843 PO; +GABA-845 PO; -LAMO200T PO; +LAMO200T2 PO; +MAPA500T2 PO; +NICO21DI34 TD; -NICODIS TD; -OXCA150T PO; +OXCA150T21 PO
[2018-05-07 20:56] LABS: CHLAMYDIA DNA AMPLIFICATION NEGATIVE (NEGATIVE); GC DNA AMPLIFICATION NEGATIVE (NEGATIVE)
== END ==
LOC: M LAB REF 17:05
PROVIDERS: ATTEND Advanced Practice Midwife
DX: N94.10 Unspecified dyspareunia (principal)

== ENCOUNTER → 2018-06-19 | Outpatient (CLI) | payer MEDICAID, OTHER, SELFPAY ==
[2018-06-19 12:23] LABS: BASO % 0.8 % (0.0-1.0); EOS # 0.1 10^3/uL (0.0-0.50); EOS % 1.7 % (0.0-3.0); HEMATOCRIT 39.9 % (36.0-47.0); HEMOGLOBIN 13.7 g/dl (12.0-15.5); LYMPH # 2.4 10^3/uL (1.5-6.5); LYMPH % 46.2 % (24.0-44.0); MEAN CORPUSCULAR HEMOGLOBIN 32.2 pg (27.0-33.0); MEAN CORPUSCULAR HGB CONC 34.3 g/dl (32.0-36.5); MEAN CORPUSCULAR VOLUME 93.7 fl (80.0-96.0); MONO # 0.4 10^3/uL (0.0-0.8); MONO % 7.2 % (0.0-5.0); NEUTROPHILS # 2.3 10^3/uL (1.8-7.7); NEUTROPHILS % 43.9 % (36.0-66.0); PLATELET COUNT, AUTOMATED 272 10^3/uL (150-450); RED BLOOD COUNT 4.26 10^6/uL (4.00-5.40); WHITE BLOOD COUNT 5.3 10^3/uL (4.0-10.0)
[2018-06-19 12:43] LABS: HEMOGLOBIN A1c 5.1 %
[2018-06-19 13:27] LABS: ALBUMIN 3.8 GM/DL (3.2-5.2); ALT/SGPT 17 U/L (12-78); BILIRUBIN,DIRECT 0.2 MG/DL (0.0-0.2); BILIRUBIN,TOTAL 0.7 MG/DL (0.2-1.0); BLOOD UREA NITROGEN 11 MG/DL (7-18); CALCIUM LEVEL 8.6 MG/DL (8.5-10.1); CARBON DIOXIDE LEVEL 23 MEQ/L (21-32); CHLORIDE LEVEL 111 MEQ/L (98-107); CHOLESTEROL LEVEL 134 MG/DL (<200); CHOLESTEROL RISK RATIO 3.045 (<5); CREATININE FOR GFR 0.68 MG/DL (0.55-1.30); GLOMERULAR FILTRATION RATE > 60.0 (>60); GLUCOSE, FASTING 84 MG/DL (70-100); HDL CHOLESTEROL 44 MG/DL (>40); LDL CHOLESTEROL 63 MG/DL (<100); NON-HDL-C 90 MG/DL; PHOSPHORUS LEVEL 2.7 MG/DL (2.5-4.9); POTASSIUM SERUM 4.1 MEQ/L (3.5-5.1); SODIUM LEVEL 142 MEQ/L (136-145); THYROID STIMULATING HORMONE 0.601 uIU/ML (0.358-3.740); TOTAL 25(OH) VITAMIN D 18.6 NG/ML (30.0-100.0); TOTAL PROTEIN 7.3 GM/DL (6.4-8.2); TRIGLYCERIDES LEVEL 136 MG/DL (<150)
--- NOTE | 2018-06-20 17:38 | ECGEPIP ---
Stationary ECG Study [facility] Test Date: 2018-06-19 Pat Name: ANGELA WADE Department: Room: - Gender: F Speaking Unit Assembler: REJI : 1995 Requested By: Ave HENRY Order Number: [id number] Reading MD: Amrik Montenegro Measurements Intervals [place] Rate: 55 P: -62 NM: 129 QRS: 50 QRSD: 89 T: 34 QT: 378 QTc: 365 Interpretive Statements Ectopic atrial BRADYCARDIA Nonspecific ST-T wave abnormalities Electronically Signed On 06-20-2018 17:38:11 EST by Amrik Montenegro
== END ==
LOC: M LAB 11:34
PROVIDERS: ATTEND Registered Nurse
DX: F33.1 Major depressive disorder, recurrent, moderate (principal)

== ENCOUNTER → 2018-07-17 | Outpatient (REF) | payer OTHER ==
[~2018-07-17] MED LIST changes: +LAMO100T80 PO; -LAMO10TA PO
[2018-07-17 13:54] LABS: APPEARANCE, URINE CLOUDY (CLEAR); BACTERIA, URINE AUTO 1+ (NEGATIVE); BILIRUBIN, URINE AUTO NEGATIVE (NEGATIVE); BLOOD, URINE BLOOD NEGATIVE (NEGATIVE); COLOR, URINE YELLOW (YELLOW); GLUCOSE, URINE (UA) AUTO NEGATIVE (NEGATIVE); KETONE, URINE AUTO NEGATIVE (NEGATIVE); LEUKOCYTE ESTERASE, URINE AUTO 2+ (NEGATIVE); MUCUS, URINE SMALL (NEGATIVE); NITRITE, URINE AUTO NEGATIVE (NEGATIVE); PROTEIN, URINE AUTO NEGATIVE (NEGATIVE); RBC, URINE AUTO 2 /HPF (0-3); SPECIFIC GRAVITY URINE AUTO 1.025 (1.002-1.035); SQUAMOUS EPITHELIAL CELL UR AU 16 /HPF (0-6); UROBILINOGEN, URINE AUTO 0.2 mg/dL (0.0-2.0); WBC, URINE AUTO 18 /HPF (0-3)
[2018-07-17 15:37] LABS: BASO # 0.1 10^3/uL (0.0-0.2); EOS # 0.1 10^3/uL (0.0-0.50); EOS % 1.4 % (0.0-3.0); HEMATOCRIT 42.9 % (36.0-47.0); HEMOGLOBIN 14.5 g/dl (12.0-15.5); LYMPH # 2.3 10^3/uL (1.5-6.5); LYMPH % 46.3 % (24.0-44.0); MEAN CORPUSCULAR HEMOGLOBIN 32.2 pg (27.0-33.0); MEAN CORPUSCULAR HGB CONC 33.8 g/dl (32.0-36.5); MEAN CORPUSCULAR VOLUME 95.1 fl (80.0-96.0); MONO # 0.4 10^3/uL (0.0-0.8); NEUTROPHILS # 2.1 10^3/uL (1.8-7.7); NEUTROPHILS % 42.1 % (36.0-66.0); PLATELET COUNT, AUTOMATED 245 10^3/uL (150-450); RED BLOOD COUNT 4.51 10^6/uL (4.00-5.40); WHITE BLOOD COUNT 4.9 10^3/uL (4.0-10.0)
[2018-07-17 15:50] LABS: ALBUMIN 4.2 GM/DL (3.2-5.2); ALT/SGPT 15 U/L (12-78); BILIRUBIN,TOTAL 0.7 MG/DL (0.2-1.0); BLOOD UREA NITROGEN 12 MG/DL (7-18); CALCIUM LEVEL 8.8 MG/DL (8.5-10.1); CARBON DIOXIDE LEVEL 24 MEQ/L (21-32); CHLORIDE LEVEL 109 MEQ/L (98-107); CHOLESTEROL LEVEL 170 MG/DL (<200); CHOLESTEROL RISK RATIO 3.617 (<5); CREATININE FOR GFR 0.85 MG/DL (0.55-1.30); GLOMERULAR FILTRATION RATE > 60.0 (>60); GLUCOSE, FASTING 95 MG/DL (70-100); HDL CHOLESTEROL 47 MG/DL (>40); LDL CHOLESTEROL 108 MG/DL (<100); NON-HDL-C 123 MG/DL; POTASSIUM SERUM 4.1 MEQ/L (3.5-5.1); SODIUM LEVEL 140 MEQ/L (136-145); THYROID STIMULATING HORMONE 0.704 uIU/ML (0.358-3.740); THYROXINE (T4) 5.8 UG/DL (4.5-12.0); TOTAL PROTEIN 7.3 GM/DL (6.4-8.2); TRIGLYCERIDES LEVEL 76 MG/DL (<150)
[2018-07-17 15:51] LABS: TOTAL 25(OH) VITAMIN D 14.6 NG/ML (30.0-100.0)
[2018-07-21 00:07] LABS: Lyme Disease IgG/IgM Antibodie <0.91 ISR (0.00-0.90); Lyme Disease IgM Ab Quantitati <0.80 index (0.00-0.79)
== END ==
LOC: M LAB REF 12:42
PROVIDERS: ATTEND Family Medicine
DX: Z13.228 Encounter for screening for other metabolic disorders (principal); R00.1 Bradycardia, unspecified

== ENCOUNTER → 2018-07-22 | Outpatient (CLI) | payer OTHER ==
--- NOTE | 2018-07-22 17:38 | REP ---
Focused left breast sonography: History: Left breast lump. The patient reports that the doctor felt the lump at the 11 o'clock position. The patient cannot feel the lump. Findings: The left breast is scanned from 12 o'clock to 10 o'clock focusing on the 11 o'clock region. Heterogeneous fibroglandular background echotexture is seen in this region. No cyst, mass, acoustic shadowing or other sonographic finding. Impression: BIRADS category 1 negative focused left breast sonography. Clinical follow-up is advised. Electronically Signed by Ronaldo Espinoza MD 07/23/2018 08:06 A
== END ==
LOC: M RAD 15:34
PROVIDERS: ATTEND Nurse Practitioner Family
DX: N63.22 Unspecified lump in the left breast, upper inner quadrant (principal)

== ENCOUNTER 2019-02-17 13:54 | Inpatient (IN) | payer MEDICAID, MEDICARE, OTHER ==
[~2019-02-17] VITALS: Ht 157.5 cm; Wt 50.6 kg
[~2019-02-17 13:54] MED LIST changes: +TRAZ1TAB10 PO; -TRAZO50TA PO
[2019-02-17] MEDS ORDERED: TRAZ-252 PO (14:06)
[2019-02-17] MEDS ORDERED: GABA600T4 PO (14:06)
[2019-02-17] MEDS ORDERED: SERT50TA29 PO (14:06)
[2019-02-17 17:32] LABS: HEMATOCRIT 42.9 % (36.0-47.0); MEAN CORPUSCULAR HGB CONC 32.6 g/dl (32.0-36.5); MEAN CORPUSCULAR VOLUME 97.9 fl (80.0-96.0); PLATELET COUNT, AUTOMATED 237 10^3/uL (150-450); RED BLOOD COUNT 4.38 10^6/uL (4.00-5.40); WHITE BLOOD COUNT 7.4 10^3/uL (4.0-10.0)
[2019-02-17 18:05] LABS: AMPHETAMINES LEVEL URINE NEGATIVE (NEGATIVE); BARBITURATES URINE NEGATIVE (NEGATIVE); BENZODIAZEPINES URINE NEGATIVE (NEGATIVE); CANNABINOIDS URINE POSITIVE (NEGATIVE); COCAINE METABOLITE URINE NEGATIVE (NEGATIVE); METHADONE URINE NEGATIVE (NEGATIVE); OPIATES URINE NEGATIVE (NEGATIVE); PHENCYCLIDINE URINE NEGATIVE (NEGATIVE)
[2019-02-17 18:09] LABS: HCG, SERUM QUALITATIVE NEGATIVE (NEGATIVE)
[2019-02-17 18:12] LABS: ACETAMINOPHEN LEVEL < 2.0 UG/ML (10.0-30.0); ALBUMIN 4.1 GM/DL (3.2-5.2); ALT/SGPT 14 U/L (12-78); BILIRUBIN,DIRECT < 0.1 MG/DL (0.0-0.2); BILIRUBIN,TOTAL 0.5 MG/DL (0.2-1.0); BLOOD UREA NITROGEN 6 MG/DL (7-18); CALCIUM LEVEL 9.2 MG/DL (8.5-10.1); CARBON DIOXIDE LEVEL 25 MEQ/L (21-32); CHLORIDE LEVEL 109 MEQ/L (98-107); CREATININE FOR GFR 0.63 MG/DL (0.55-1.30); ETHYL ALCOHOL (ETHANOL) < 0.003 % (0.000-0.010); GLOMERULAR FILTRATION RATE > 60.0 (>60); GLUCOSE, FASTING 84 MG/DL (70-100); POTASSIUM SERUM 3.5 MEQ/L (3.5-5.1); SALICYLATE LEVEL < 1.7 MG/DL (5.0-30.0); SODIUM LEVEL 142 MEQ/L (136-145); TOTAL PROTEIN 7.5 GM/DL (6.4-8.2)
[2019-02-17] MEDS ORDERED: MOM 30ML SUSPENSION UDC PO PRN (18:45)
[2019-02-17] MEDS ORDERED: MAALOX 30 ML SUSP *UDC PO PRN (18:45)
[2019-02-17] MEDS ORDERED: traZODone 50 MG TAB PO SCH (21:00)
[2019-02-17 22:30] VITALS: BP 135/90
[2019-02-17] MEDS: GABAPENTIN 300 MG CAP PO SCH (22:41)
[2019-02-17] MEDS: ACETAMINOPHEN TAB 650MG DOSE (2X325MG) PO PRN (22:42)
[2019-02-18 06:20] VITALS: BP 131/76
[2019-02-18] MEDS: SERTRALINE HCL 25 MG TABLET PO SCH (08:15)
[2019-02-18] MEDS ORDERED: LORazepam 0.5 MG TAB PO ONE (12:30)
[2019-02-18] MEDS ORDERED: traZODone 50 MG TAB PO PRN (12:30)
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
[2019-02-18 18:00] VITALS: BP 122/59
[2019-02-18] MEDS: ACETAMINOPHEN TAB 650MG DOSE (2X325MG) PO PRN (18:30)
[2019-02-18] MEDS: GABAPENTIN 300 MG CAP PO SCH (20:55)
[2019-02-19 06:40] VITALS: BP 139/80
[2019-02-19] MEDS ORDERED: ABIL1TAB11 PO (07:11)
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
[2019-02-19] MEDS: SERTRALINE HCL 25 MG TABLET PO SCH (08:09)
[2019-02-19] MEDS: ACETAMINOPHEN TAB 650MG DOSE (2X325MG) PO PRN (08:43)
== END 2019-02-19 12:33 | disposition home or self-care (01) | DRG 882 ==
LOC: M ED 13:54 → M ED INP 18:39 → M PSY 21:53
PROVIDERS: ADMIT Psychiatry & Neurology Addiction Medicine; ATTEND Psychiatry & Neurology Addiction Medicine
DX: F43.20 Adjustment disorder, unspecified (principal); F70 Mild intellectual disabilities; F12.10 Cannabis abuse, uncomplicated; Z79.899 Other long term (current) drug therapy

== ENCOUNTER 2019-05-26 11:29 | Emergency (ER) | payer MEDICARE, OTHER ==
[~2019-05-26] VITALS: Ht 157.5 cm; Wt 54.7 kg
[~2019-05-26 11:29] MED LIST changes: +ABIL1TAB11 PO; +GABA600T4 PO; -LAMO200T2 PO; +LAMO200T3 PO; +QUET100T2 PO; -QUET1TAB8 PO; +SERT50TA29 PO; +TRAZ-252 PO
[2019-05-26] MEDS ORDERED: ABIL1TAB12 PO (11:40)
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
[2019-05-26 12:26] LABS: HEMATOCRIT 46.4 % (36.0-47.0); MEAN CORPUSCULAR HEMOGLOBIN 32.2 pg (27.0-33.0); MEAN CORPUSCULAR HGB CONC 32.3 g/dl (32.0-36.5); MEAN CORPUSCULAR VOLUME 99.6 fl (80.0-96.0); PLATELET COUNT, AUTOMATED 245 10^3/uL (150-450); RED BLOOD COUNT 4.66 10^6/uL (4.00-5.40); WHITE BLOOD COUNT 7.5 10^3/uL (4.0-10.0)
[2019-05-26 12:50] LABS: AMPHETAMINES LEVEL URINE NEGATIVE (NEGATIVE); BARBITURATES URINE NEGATIVE (NEGATIVE); BENZODIAZEPINES URINE NEGATIVE (NEGATIVE); CANNABINOIDS URINE POSITIVE (NEGATIVE); COCAINE METABOLITE URINE NEGATIVE (NEGATIVE); METHADONE URINE NEGATIVE (NEGATIVE); OPIATES URINE NEGATIVE (NEGATIVE); PHENCYCLIDINE URINE NEGATIVE (NEGATIVE)
[2019-05-26 12:52] LABS: HCG, SERUM QUALITATIVE NEGATIVE (NEGATIVE)
[2019-05-26 13:01] LABS: ACETAMINOPHEN LEVEL 2.2 UG/ML (10.0-30.0); ALBUMIN 4.2 GM/DL (3.2-5.2); ALT/SGPT 40 U/L (12-78); BILIRUBIN,DIRECT 0.1 MG/DL (0.0-0.2); BILIRUBIN,TOTAL 0.4 MG/DL (0.2-1.0); BLOOD UREA NITROGEN 6 MG/DL (7-18); CALCIUM LEVEL 9.3 MG/DL (8.5-10.1); CARBON DIOXIDE LEVEL 28 MEQ/L (21-32); CHLORIDE LEVEL 105 MEQ/L (98-107); CREATININE FOR GFR 0.81 MG/DL (0.55-1.30); ETHYL ALCOHOL (ETHANOL) < 0.003 % (0.000-0.010); GLOMERULAR FILTRATION RATE > 60.0 (>60); GLUCOSE, FASTING 76 MG/DL (70-100); POTASSIUM SERUM 3.8 MEQ/L (3.5-5.1); SALICYLATE LEVEL < 1.7 MG/DL (5.0-30.0); SODIUM LEVEL 140 MEQ/L (136-145); TOTAL PROTEIN 7.9 GM/DL (6.4-8.2)
[2019-05-26 14:54] VITALS: BP 123/75
== END 2019-05-26 14:57 | disposition home or self-care (01) ==
LOC: M ED 11:29
DX: F32.9 Major depressive disorder, single episode, unspecified (principal); F43.10 Post-traumatic stress disorder, unspecified; F12.10 Cannabis abuse, uncomplicated; Z79.899 Other long term (current) drug therapy
CPT/HCPCS: 80048; 80076; 80307; 84443; 84703; 85027; 99284; G0480

== ENCOUNTER → 2019-06-04 | Outpatient (CLI) | payer MEDICARE, MEDICAID ==
[~2019-06-04] MED LIST changes: +ABIL1TAB12 PO
--- NOTE | 2019-06-04 16:37 | REP ---
Focused right breast sonography: History: Unspecified lump in the right breast upper outer quadrant. Findings: The right breast is scanned from 11-o'clock to 1-o'clock through the area of the palpable abnormality at 12 o'clock. Heterogeneous fibroglandular background echotexture is seen. No cyst, mass, acoustic shadowing or architectural distortion is seen. Impression: BIRADS category 1 negative focused breast sonographic findings. Clinical follow-up is advised. Electronically Signed by Ronaldo Espinoza MD 06/04/2019 05:08 P
== END ==
LOC: M RAD 14:13
PROVIDERS: ATTEND Family Medicine
DX: N64.89 Other specified disorders of breast (principal)

== ENCOUNTER → 2019-06-24 | Outpatient (REF) | payer MEDICARE, MEDICAID ==
[2019-06-24 19:31] LABS: BASO # 0.1 10^3/uL (0.0-0.2); BASO % 0.9 % (0.0-1.0); EOS # 0.1 10^3/uL (0.0-0.5); EOS % 1.9 % (0.0-3.0); HEMOGLOBIN 14.1 g/dl (12.0-15.5); LYMPH # 2.4 10^3/uL (1.5-5.0); LYMPH % 33.8 % (24.0-44.0); MEAN CORPUSCULAR HGB CONC 32.8 g/dl (32.0-36.5); MEAN CORPUSCULAR VOLUME 97.5 fl (80.0-96.0); MONO # 0.5 10^3/uL (0.0-0.8); MONO % 7.5 % (0.0-5.0); NEUTROPHILS # 3.9 10^3/uL (1.5-8.5); NEUTROPHILS % 55.8 % (36.0-66.0); PLATELET COUNT, AUTOMATED 271 10^3/uL (150-450); RED BLOOD COUNT 4.41 10^6/uL (4.00-5.40)
[2019-06-24 19:37] LABS: ALBUMIN 3.6 GM/DL (3.2-5.2); ALT/SGPT 27 U/L (12-78); BILIRUBIN,TOTAL 0.3 MG/DL (0.2-1.0); BLOOD UREA NITROGEN 10 MG/DL (7-18); CARBON DIOXIDE LEVEL 29 MEQ/L (21-32); CHLORIDE LEVEL 108 MEQ/L (98-107); CREATININE FOR GFR 0.66 MG/DL (0.55-1.30); GLOMERULAR FILTRATION RATE > 60.0 (>60); GLUCOSE, FASTING 90 MG/DL (70-100); POTASSIUM SERUM 4.4 MEQ/L (3.5-5.1); SODIUM LEVEL 140 MEQ/L (136-145); TOTAL PROTEIN 6.9 GM/DL (6.4-8.2)
== END ==
LOC: M LAB REF 18:53
PROVIDERS: ATTEND Nurse Practitioner Family
DX: M54.5 Low back pain (principal); E55.9 Vitamin D deficiency, unspecified; Z72.0 Tobacco use; F41.9 Anxiety disorder, unspecified; F32.9 Major depressive disorder, single episode, unspecified

== ENCOUNTER → 2020-02-03 | Outpatient (CLI) | payer MEDICAID, MEDICARE, OTHER ==
--- NOTE | 2020-02-03 15:47 | REP ---
INDICATION: R NIPPLE DISCHARGE/N64.52/LEFT NIPPLE PAIN/N64.59. COMPARISON: Right breast ultrasound 06/04/2027, left breast ultrasound 07/22/2018. TECHNIQUE: Real-time sonographic evaluation of both breasts performed for whole breast screening ultrasound. FINDINGS: No cystic or solid nodule is seen in either breast. In the right axillary tail there are 2 morphologically normal appearing lymph nodes which are not significantly enlarged, measuring 1.1 x 1.2 x 0.6 cm and 1.0 x 1.0 x 1.3 cm. IMPRESSION: BIRADS/ACR category 2 benign. No suspicious cystic or solid nodule in either breast. Two morphologically normal, nonenlarged lymph nodes are seen in the right axillary tail. RECOMMENDATION: Clinical correlation and follow-up recommended. <Electronically signed by Champ Estrella > 02/03/20 1816
== END ==
LOC: M WHC 10:57
PROVIDERS: ATTEND Physician Assistant
DX: N64.52 Nipple discharge (principal)

== ENCOUNTER → 2020-03-30 | Outpatient (REF) | payer MEDICARE ==
[2020-03-30 17:37] LABS: BASO # 0.1 10^3/uL (0.0-0.2); EOS # 0.1 10^3/uL (0.0-0.5); EOS % 0.9 % (0.0-3.0); HEMATOCRIT 41.8 % (36.0-47.0); HEMOGLOBIN 13.7 g/dl (12.0-15.5); LYMPH % 35.7 % (24.0-44.0); MEAN CORPUSCULAR HEMOGLOBIN 31.6 pg (27.0-33.0); MEAN CORPUSCULAR HGB CONC 32.8 g/dl (32.0-36.5); MEAN CORPUSCULAR VOLUME 96.3 fl (80.0-96.0); MONO # 0.5 10^3/uL (0.0-0.8); MONO % 8.9 % (0.0-5.0); NEUTROPHILS # 3.1 10^3/uL (1.5-8.5); NEUTROPHILS % 53.5 % (36.0-66.0); PLATELET COUNT, AUTOMATED 283 10^3/uL (150-450); RED BLOOD COUNT 4.34 10^6/uL (4.00-5.40); WHITE BLOOD COUNT 5.7 10^3/uL (4.0-10.0)
[2020-03-30 18:17] LABS: ALBUMIN 4.1 GM/DL (3.2-5.2); ALT/SGPT 17 U/L (12-78); BILIRUBIN,TOTAL 0.5 MG/DL (0.2-1.0); BLOOD UREA NITROGEN 11 MG/DL (7-18); CARBON DIOXIDE LEVEL 29 MEQ/L (21-32); CHLORIDE LEVEL 107 MEQ/L (98-107); CREATININE FOR GFR 0.73 MG/DL (0.55-1.30); GLOMERULAR FILTRATION RATE > 60.0 (>60); GLUCOSE, FASTING 86 MG/DL (70-100); POTASSIUM SERUM 4.4 MEQ/L (3.5-5.1); PROLACTIN 4.4 NG/ML; SODIUM LEVEL 140 MEQ/L (136-145); THYROID STIMULATING HORMONE 0.833 uIU/ML (0.358-3.740); TOTAL PROTEIN 7.8 GM/DL (6.4-8.2)
== END ==
LOC: M LAB REF 16:18
PROVIDERS: ATTEND Physician Assistant
DX: R43.0 Anosmia (principal)

== ENCOUNTER 2020-06-07 15:33 | Emergency (ER) | payer MEDICARE, MEDICAID ==
[~2020-06-07] VITALS: Ht 157.5 cm; Wt 64.6 kg
[~2020-06-07 15:33] MED LIST changes: -HYDR-3363 PO; -MEDR150I10 IM; -MELA5CAP2 PO; -QUET300T2 PO; -TRAZ-257 PO; -TRAZ150T90 PO; -ZOLO100T PO
[2020-06-07] MEDS ORDERED: QUET300T2 (15:44)
[2020-06-07] MEDS ORDERED: ZOLO100T (15:44)
--- OUTSIDE RECORDS SUMMARY | 2020-06-07 15:44 | CCD ---
Author Organization Unknown Address [address] [place] [address] Phone [phone] Care Team Providers Care Head Custodian Name Role Phone Deb Lanier Unavailable Unavailable Allergies Code Code System Name Reaction Severity Status Onset NKDA Medications Name Status Start Date Stop Date aripiprazole 10 mg tablet Completed 2019 aripiprazole 15 mg tablet Completed 2020 aripiprazole 5 mg tablet Completed 020 gabapentin 600 mg tablet TAKE ONE TABLET BY MOUTH AT BEDTIME FOR 30 DAYS Active Not available quetiapine 300 mg tablet Active Not jeffrey ilable sertraline 100 mg tablet TAKE ONE TABLET BY MOUTH EVERY DAY Active Not available sertraline 50 mg tablet Completed 03/08/20 20 trazodone 150 mg tablet TAKE ONE TABLET BY MOUTH EVERY DAY AT DINNER FOR 30 DAYS Active Not available trazodone 50 mg tablet Completed Problems Name Status Onset Date Source Headache Active 02/16/2015 History Screening for Malignant Neoplasm of Cervix Active 03/23 History Depressive Disorder Active 04/21/[address] Concept Active 04/21/2015 History Clinical Finding Active 06/19/2015 History Disorder of Upper Extremity Active 07/13/2015 Hist ory Insect Bite, Nonvenomous, of Forearm Active 07/31/2015 History Chlamydial Epididymitis Active 11/19/2016 History Tobacco Use and Exposure - Finding Active 11/22/2016 History Contraception Care Management Active 12/27/2016 [employer] story Dental Arch Length Loss Secondary to Dental Caries Active 02/05/2017 History Procedure by Method Active 03/19/2017 History Dental Caries on Smooth Surface Penetrating into Dentin Active 03/13/2018 History Sexual Function Painful Active 03/20/2018 History Endocrine/metabolic Screening Active 06/26/2018 [employer] story Cardiovascular Measurement - Finding Active 06/26/2018 History Vitamin D Deficiency Active 07/24/2018 History Severe Recurrent Major Depression without Psychotic Features Act brock 11/23/2018 History Generalized Anxiety Disorder Active 11/23/2018 His tory Attention Deficit Hyperactivity Disorder, Combined Type Active 12/24/2018 History Bipolar Disorder, Most Recent Episode Depression Active 12/24/2018 History Moderate Recurrent Major Depression Active 12/29/2018 History Posttraumatic Stress Disorder Active 01/12/2019 Hi story Low Back Pain Active 06/01/2019 History Lump in Upper Outer Quadrant of Right Breast Active History Finding of Knee Region Active 06/01/2019 History Discharge from Nipple Active 01/26/2020 History Breast Finding Active 01/26/2020 History Procedures Notes: Mass removed from Breast 2012, wi sdom teeth | Mass removed from L Breast 2012, wisdom teeth Results Lab Results Date Name Specimen Result Interpretation Description Value Range Status Address 03/30/2020 CBC W/ Auto Diff Normal White Blood Count 5.7 10 4.0-10.0 10 [facility]: [address] [place] [address] Normal Red Blood Count 4.34 10 4.00-5.40 10 [facility]: [address] [place] [address] Normal Hemoglobin 13.7 g/dL 12.0-15.5 g/dL [facility]: 0 [facility] Normal Hematocrit 41.8 % 36.0-47.0 % [facility]: [address] [place] [address] High Mean Corpuscular Volume 96.3 fL 80.0 -96.0 fL [facility]: [address] [place] [address] Normal Mean Corpuscular Hemoglobin 31.6 pg 27.0-33.0 pg [facility]: [address] [place] [address] Normal Mean Corpuscular HGB Conc 32.8 g/dL 32.0-36.5 g/dL [facility]: [address] [facility] Normal Red Cell Distribution Width 11.7 % 1 1.5-14.5 % [facility]: 0 [facility] Normal Platelet Count, Automated 283 10 150 -450 10 [facility]: [address] [facility] Normal Neutrophils % 53.5 % 36.0-66.0 % [facility]: [address] [facility] Normal Lymph % 35.7 % 24.0-44.0 % [facility]: [address] [facility] High [place] % 8.9 % 0.0-5.0 % [facility]: [address] [facility] Normal Eos % 0.9 % 0.0-3.0 % [facility]: [address] [facility] Normal Baso % 1.0 % 0.0-1.0 % [facility]: [address] [facility] Normal Immature Granulocyte % 0.0 % 0-3.0 % [facility]: [address] [facility] Normal Nucleated Red Blood Cell % 0.0 % 0- 0 % [facility]: [address] [facility] Normal Neutrophils # 3.1 10 1.5-8.5 10 [facility]: [address] [facility] Normal Lymph # 2.0 10 1.5-5.0 10 [facility]: [address] [facility] Normal [place] # 0.5 10 0.0-0.8 10 [facility]: [address] [facility] Normal Eos # 0.1 10 0.0-0.5 10 [facility]: [address] [facility] Normal Baso # 0.1 10 0.0-0.2 10 [facility]: [address] [facility] 03/30/2020 CMP, Serum or Plasma Normal Glucose, Fastin g 86 mg/dL 70-100 mg/dL [facility]: 83 0 [facility] Normal Blood Urea Nitrogen 11 mg/dL 7-18 mg /dL [facility]: [address] [facility] Normal Creatinine for GFR 0.73 mg/dL 0.55-1 .30 mg/dL [facility]: 0 [facility] Normal Glomerular Filtration Rate > 60.0 >6 0 [facility]: [address] [facility] Normal Sodium Level 140 mEq/L 136-145 mEq/L [facility]: 0 [facility] Normal Potassium Serum 4.4 mEq/L 3.5-5.1 mE q/L [facility]: 0 [facility] Normal Chloride Level 107 mEq/L 98-107 mEq/ L [facility]: 0 [facility] Normal Carbon Dioxide Level 29 mEq/L 21-32 mEq/L [facility]: [address] [place] [address] Low Anion Gap 4 mEq/L 8-16 mEq/L [facility]: [address] [place] [address] Normal Calcium Level 10.0 mg/dL 8.5-10.1 mg /dL [facility]: [address] [place] [address] Normal AST/SGOT 10 U/L 7-37 U/L [facility]: [address] [place] [address] Normal ALT/SGPT 17 U/L 12-78 U/L [facility]: [address] [place] [address] Normal Alkaline Phosphatase 89 U/L 45-117 U /L [facility]: [address] [place] [address] Normal Bilirubin,total 0.5 mg/dL 0.2-1.0 mg /dL [facility]: [address] [place] [address] Normal Total Protein 7.8 gm/dL 6.4-8.2 gm/d L [facility]: 0 [facility] Normal Albumin 4.1 gm/dL 3.2-5.2 gm/dL [facility]: [address] [place] [address] Low Albumin/globulin Ratio 1.1 1.2-2. 2 [facility]: [address] [place] [address] 03/30/2020 TSH, Serum or Plasma Normal Thyroid Stimulating Hormone 0.833 uIU/mL 0.358-3.740 uIU/mL [facility] nter: 0 [facility] 03/30/2020 Prolactin, Serum Normal Prolactin 4.4 NG/mL [facility]: [address] [place] [address] 03/08/2020 COVID-19 RNA (SARS-CoV-2), QL, field marketing specialist-PCR, Respiratory Specimen Nasopharyngeal Normal Sars Cov 2 RNA not detected not detected Fi nal Associated Clinical Labs ([facility]): [address], [place] Past Encounters 06/05/2020 Posttraumatic Stress Disorder; Severe Recurrent Major Depression without Psychotic Features; Generalized Anxiety Disorder; Bipolar Affective Disorder, Currently Depressed, Moderate STEVE SchreiberW-R: [address], [place] [address], Ph. 05/29/2020 Posttraumatic Stress Disorder; Severe Recurrent Major Depression without Psychotic Features; Generalized Anxiety Disorder; Bipolar Disorder STEVE SchreiberW-R: [address] , [address], [place] [address], Ph. 05/22/2020 Posttraumatic Stress Disorder; Severe Recurrent Major Depression without Psychotic Features; Generalized Anxiety Disorder; Bipolar Disorder Karina Conrad BUSHING PRESS OPERATOR-R: [address], [place] [address], Ph. 05/16/2020 Posttraumatic Stress Disorder; Severe Recurrent Major Depression without Psychotic Features; Generalized Anxiety Disorder; Bipolar Disorder STEVE SchreiberW-R: [address], [place] [address], Ph. 05/15/2020 Marley Khan MD: [address] [place] [address], Ph. 05/08/2020 Moderate Recurrent Major Depression; Generalized Anxiety Disorder; Panic Disorder; Bipolar Disorder STEVE SchreiberW-R: [address], [place] [address], Ph. 05/01/2020 Generalized Anxiety Disorder; Bipolar Affective Disorder, Currently Depressed, Moderate; Posttraumatic Stress Disorder STEVE SchreiberW-R: [address], [place] [address], Ph. 04/24/2020 Generalized Anxiety Disorder; Posttraumatic Stress Disorder; Moderate Recurrent Major Depression; Panic Disorder Karina Conrad, BUSHING PRESS OPERATOR-R: [address], [place] [address], Ph. 04/10/2020 Discharge from [facility]; Mental Health Screening Assessment Deb Lanier PA-C: [address] [place] [address], Ph. 04/05/2020 Generalized Anxiety Disorder; Bipolar Disorder; Panic Disorder STEVE SchreiberW-R: [address] [place] [address], Ph. 03/30/2020 Generalized Anxiety Disorder; Moderate Recurrent Major Depression; Posttraumatic Stress Disorder; Panic Disorder STEVE SchreiberW-R: [address] [place] [address], Ph. 03/23/2020 Generalized Anxiety Disorder; Bipolar Disorder; Panic Disorder; Posttraumatic Stress Disorder STEVE SchreiberW-R: [address] [place] [address], Ph. 03/15/2020 Posttraumatic Stress Disorder; Severe Recurrent Major Depression; Generalized Anxiety Disorder; Panic Disorder STEVE SchreiberW-R: [address] [place] [address], Ph. 03/08/2020 Generalized Acute Body Pains; Loss of Sense of Smell Deb Lanier PA-C: [address] [place] [address], Ph. 03/02/2020 Posttraumatic Stress Disorder; Severe Recurrent Major Depression without Psychotic Features; Generalized Anxiety Disorder STEVE SchreiberW-R: [address] [place] [address], Ph. 02/23/2020 Generalized Anxiety Disorder; Posttraumatic Stress Disorder; Panic Disorder; Severe Recurrent Major Depression without Psychotic Features; Bipolar Disorder Karina Conrad BUSHING PRESS OPERATOR-R: [address] [place] [address], Ph. 02/17/2020 Posttraumatic Stress Disorder; Severe Recurrent Major Depression without Psychotic Features; Generalized Anxiety Disorder; Chlamydial Epididymitis Karina Conrad [facility]-R: [address] [place] [address], Ph. 02/10/2020 Bipolar Disorder; Severe Recurrent Major Depression; Generalized Anxiety Disorder; Posttraumatic Stress Disorder Karina Conrad BUSHING PRESS OPERATOR-R: [address] [place] [address], Ph. Social History Tobacco Smoking Status Light Tobacco Smoker (04/17 PPD) Vaccine List None recorded. Plan of Care Reminders Provider Appointments None recorded. Lab None recorded. Referral None recorded. Procedures None recorded. Surgeries None recorded. Imaging None recorded. Vitals 05/15/2020 01:30PM TELEPSYCH 30 Height Weight BMI 63 in 134 lbs 6.4 oz 23.8 kg/m2 04/10/2020 01:40PM TELEHEALTH 20 Height 63 in 03/08/2020 10:00AM ESTABLISHED [id number] Height Weight BMI Blood Pressure 63 in 125 lbs 8 oz 22.2 kg/m2 131/85 mm[Hg] 01/26/2020 Height Weight BMI Blood Pressure 63 in 134 lbs 6.08 oz 23.89 kg/m2 105/71 mm[H g] 11/18/2019 Height Weight BMI Blood Pressure 63 in 130 lbs 2.08 oz 23.13 kg/m2 99/64 mm[Hg ] 11/08/2019 Height Weight BMI 63 in 131 lbs 8 oz 23.38 kg/m2 09/13/2019 Height Weight BMI 63 in 131 lbs 23.29 kg/m2 08/09/2019 Height Weight BMI 63 in 132 lbs 4 oz 23.51 kg/m2 06/21/2019 Height Weight BMI 63 in 124 lbs 2.08 oz 22.07 kg/m2 06/03/2019 Weight 120 lbs 6.08 oz 06/01/2019 Height Weight BMI Blood Pressure 63 in 118 lbs 20.98 kg/m2 119/76 mm[Hg] 05/03/2019 Height Weight BMI 63 in 114 lbs 20.27 kg/m2 04/05/2019 Height Weight BMI 63 in 115 lbs 20.44 kg/m2 03/18/2019 Height Weight BMI Blood Pressure 63 in 115 lbs 20.44 kg/m2 111/74 mm[Hg] 01/18/2019 Height Weight BMI 63 in 120 lbs 4 oz 21.38 kg/m2 01/04/2019 Height Weight BMI 63 in 117 lbs 2.08 oz 20.82 kg/m2 12/24/2018 Height Weight BMI 63 in 119 lbs 2.08 oz 21.18 kg/m2 12/04/2018 Height Weight BMI Blood Pressure 63 in 118 lbs 6.08 oz 21.05 kg/m2 101/58 mm[H g] 11/23/2018 Blood Pressure 110/70 mm[Hg] 10/23/2018 Height Weight BMI Blood Pressure 63 in 122 lbs 4 oz 21.73 kg/m2 105/69 mm[Hg] 07/24/2018 Height Weight BMI Blood Pressure 63 in 133 lbs 2.08 oz 23.67 kg/m2 98/57 mm[Hg ] 06/26/2018 Height Weight BMI Blood Pressure 63 in 134 lbs 23.82 kg/m2 112/73 mm[Hg]"
--- OUTSIDE RECORDS SUMMARY | 2020-06-07 15:44 | CCD ---
Author Organization Unknown Address [address] [place] [address] Phone [phone] Care Team Providers Care Board Mixer Tender Name Role Phone Deb Lanier Unavailable Unavailable [...] 11/22/2016 History Contraception Care Management Active 12/27/2016 [employer] story Dental Arch Length Loss Secondary to Dental Caries Active 02/05/2017 History Procedure by Method Active 03/19/2017 History Dental Caries on Smooth Surface Penetrating into Dentin Active 03/13/2018 History Sexual Function Painful Active 03/20/2018 History Endocrine/metabolic Screening Active 06/26/2018 [employer] story Cardiovascular Measurement - Finding Active 06/26/2018 [...] White Blood Count 5.7 10 4.0-10.0 10 [facility]: [address] [place] [address] Normal Red Blood Count 4.34 10 4.00-5.40 10 [facility]: [address] [place] [address] Normal Hemoglobin 13.7 g/dL 12.0-15.5 g/dL [facility]: 0 [facility] Normal Hematocrit 41.8 % 36.0-47.0 % [facility]: [address] [place] [address] High Mean Corpuscular Volume 96.3 fL 80.0 -96.0 fL [facility]: [address] [place] [address] Normal Mean Corpuscular Hemoglobin 31.6 pg 27.0-33.0 pg [facility]: [address] [place] [address] Normal Mean Corpuscular HGB Conc 32.8 g/dL 32.0-36.5 g/dL [facility]: [address] [facility] Normal Red Cell Distribution Width 11.7 % 1 1.5-14.5 % [facility]: 0 [facility] Normal Platelet Count, Automated 283 10 150 -450 10 [facility]: [address] [facility] Normal Neutrophils % 53.5 % 36.0-66.0 % [facility]: [address] [facility] Normal Lymph % 35.7 % 24.0-44.0 % [facility]: [address] [facility] High [place] % 8.9 % 0.0-5.0 % [facility]: [address] [facility] Normal Eos % 0.9 % 0.0-3.0 % [facility]: [address] [facility] Normal Baso % 1.0 % 0.0-1.0 % [facility]: [address] [facility] Normal Immature Granulocyte % 0.0 % 0-3.0 % [facility]: [address] [facility] Normal Nucleated Red Blood Cell % 0.0 % 0- 0 % [facility]: [address] [facility] Normal Neutrophils # 3.1 10 1.5-8.5 10 [facility]: [address] [facility] Normal Lymph # 2.0 10 1.5-5.0 10 [facility]: [address] [facility] Normal [place] # 0.5 10 0.0-0.8 10 [facility]: [address] [facility] Normal Eos # 0.1 10 0.0-0.5 10 [facility]: [address] [facility] Normal Baso # 0.1 10 0.0-0.2 10 [facility]: [address] [facility] 03/30/2020 CMP, Serum or Plasma Normal Glucose, Fastin g 86 mg/dL 70-100 mg/dL [facility]: 83 0 [facility] Normal Blood Urea Nitrogen 11 mg/dL 7-18 mg /dL [facility]: [address] [facility] Normal Creatinine for GFR 0.73 mg/dL 0.55-1 .30 mg/dL [facility]: 0 [facility] Normal Glomerular Filtration Rate > 60.0 >6 0 [facility]: [address] [facility] Normal Sodium Level 140 mEq/L 136-145 mEq/L [facility]: 0 [facility] Normal Potassium Serum 4.4 mEq/L 3.5-5.1 mE q/L [facility]: 0 [facility] Normal Chloride Level 107 mEq/L 98-107 mEq/ L [facility]: 0 [facility] Normal Carbon Dioxide Level 29 mEq/L 21-32 mEq/L [facility]: [address] [place] [address] Low Anion Gap 4 mEq/L 8-16 mEq/L [facility]: [address] [place] [address] Normal Calcium Level 10.0 mg/dL 8.5-10.1 mg /dL [facility]: [address] [place] [address] Normal AST/SGOT 10 U/L 7-37 U/L [facility]: [address] [place] [address] Normal ALT/SGPT 17 U/L 12-78 U/L [facility]: [address] [place] [address] Normal Alkaline Phosphatase 89 U/L 45-117 U /L [facility]: [address] [place] [address] Normal Bilirubin,total 0.5 mg/dL 0.2-1.0 mg /dL [facility]: [address] [place] [address] Normal Total Protein 7.8 gm/dL 6.4-8.2 gm/d L [facility]: 0 [facility] Normal Albumin 4.1 gm/dL 3.2-5.2 gm/dL [facility]: [address] [place] [address] Low Albumin/globulin Ratio 1.1 1.2-2. 2 [facility]: [address] [place] [address] 03/30/2020 TSH, Serum or Plasma Normal Thyroid Stimulating Hormone 0.833 uIU/mL 0.358-3.740 uIU/mL [facility] nter: 0 [facility] 03/30/2020 Prolactin, Serum Normal Prolactin 4.4 NG/mL [facility]: [address] [place] [address] 03/08/2020 COVID-19 RNA (SARS-CoV-2), QL, gas refrigerator servicer-PCR, Respiratory Specimen Nasopharyngeal Normal Sars Cov 2 RNA not detected not detected Fi nal Associated Clinical Labs ([employer]): [address], [place] Past Encounters 06/05/2020 Posttraumatic Stress Disorder; Severe Recurrent Major Depression without Psychotic Features; Generalized Anxiety Disorder; Bipolar Affective Disorder, Currently Depressed, Moderate Karina Conrad, TRAFFIC CONTROLLER CABLE-R: [address], [place] [address], Ph. 05/29/2020 Posttraumatic Stress Disorder; Severe Recurrent Major Depression without Psychotic Features; Generalized Anxiety Disorder; Bipolar Disorder Karina Conrad TRAFFIC CONTROLLER CABLE-R: [address], [address], [place] [address], Ph. 05/22/2020 Posttraumatic Stress Disorder; Severe Recurrent Major Depression without Psychotic Features; Generalized Anxiety Disorder; Bipolar Disorder Kairna Conrad TRAFFIC CONTROLLER CABLE-R: [address], [place] [address], Ph. 05/16/2020 Posttraumatic Stress Disorder; Severe Recurrent Major Depression without Psychotic Features; Generalized Anxiety Disorder; Bipolar Disorder Karina Conrad TRAFFIC CONTROLLER CABLE-R: [address], [place] [address], Ph. 05/15/2020 Marley Khan MD: [address] [place] [address], Ph. 05/08/2020 Moderate Recurrent Major Depression; Generalized Anxiety Disorder; Panic Disorder; Bipolar Disorder Karina Conrad TRAFFIC CONTROLLER CABLE-R: [address], [address], [place] [address], Ph. 05/01/2020 Karina Conrad TRAFFIC CONTROLLER CABLE-R: [address], [address], [place] [address], Ph. 04/24/2020 Generalized Anxiety Disorder; Posttraumatic Stress Disorder; Moderate Recurrent Major Depression; Panic Disorder Karina Conard TRAFFIC CONTROLLER CABLE-R: [address], [address], [place] [address], Ph. 04/10/2020 Discharge from [facility]; Mental Health Screening Assessment Deb Lanier PA-C: [address] [place] [address], Ph. 04/05/2020 Generalized Anxiety Disorder; Bipolar Disorder; Panic Disorder Karina Conrad TRAFFIC CONTROLLER CABLE-R: [address] [place] [address], Ph. 03/30/2020 Generalized Anxiety Disorder; Moderate Recurrent Major Depression; Posttraumatic Stress Disorder; Panic Disorder Karina Conrad TRAFFIC CONTROLLER CABLE-R: [address] [place] [address], Ph. 03/23/2020 Generalized Anxiety Disorder; Bipolar Disorder; Panic Disorder; Posttraumatic Stress Disorder Karina Conrad TRAFFIC CONTROLLER CABLE-R: [address] [place] [address], Ph. 03/15/2020 Posttraumatic Stress Disorder; Severe Recurrent Major Depression; Generalized Anxiety Disorder; Panic Disorder Karina Conrad [facility]: [address] [place] [address], Ph. 03/08/2020 Generalized Acute Body Pains; Loss of Sense of Smell Deb Lanier PA-C: [address] [place] [address], Ph. 03/02/2020 Posttraumatic Stress Disorder; Severe Recurrent Major Depression without Psychotic Features; Generalized Anxiety Disorder Karina Conrad TRAFFIC CONTROLLER CABLE-R: [address] [place] [address], Ph. 02/23/2020 Generalized Anxiety Disorder; Posttraumatic Stress Disorder; Panic Disorder; Severe Recurrent Major Depression without Psychotic Features; Bipolar Disorder Karina Conrad TRAFFIC CONTROLLER CABLE-R: [address] [place] [address], Ph. 02/17/2020 Posttraumatic Stress Disorder; Severe Recurrent Major Depression without Psychotic Features; Generalized Anxiety Disorder; Chlamydial Epididymitis Karina Conrad [facility]: [address] [place] [address], Ph. 02/10/2020 Bipolar Disorder; Severe Recurrent Major Depression; Generalized Anxiety Disorder; Posttraumatic Stress Disorder Karina Conrad TRAFFIC CONTROLLER CABLE-R: [address] [place] [address], Ph. Social History Tobacco Smoking Status Light [...] 20 Height 63 in 03/08/2020 10:00AM ESTABLISHED [id number] Height Weight BMI Blood Pressure 63 in [...]
--- OUTSIDE RECORDS SUMMARY | 2020-06-07 15:44 | CCD ---
Author Organization Unknown Address [address] [place] [address] Phone [phone] Care Team Providers Care Loan Coordinator Name Role Phone Deb Lanier Unavailable Unavailable [...] 11/22/2016 History Contraception Care Management Active 12/27/2016 [facility]pe[facility] story Dental Arch Length Loss Secondary to Dental Caries Active 02/05/2017 History Procedure by Method Active 03/19/2017 History Dental Caries on Smooth Surface Penetrating into Dentin Active 03/13/2018 History Sexual Function Painful Active 03/20/2018 History Endocrine/metabolic Screening Active 06/26/2018 [facility] story Cardiovascular Measurement - Finding Active 06/26/2018 [...] White Blood Count 5.7 10 4.0-10.0 10 [facility] [address] [place] [address] Normal Red Blood Count 4.34 10 4.00-5.40 10 [facility] [address] [place] [address] Normal Hemoglobin 13.7 g/dL 12.0-15.5 g/dL [facility]: 0 [facility] Normal Hematocrit 41.8 % 36.0-47.0 % [facility]: [address] [place] [address] High Mean Corpuscular Volume 96.3 fL 80.0 -96.0 fL [facility]: [address] [place] [address] Normal Mean Corpuscular Hemoglobin 31.6 pg 27.0-33.0 pg [facility]: [address] [place] [address] Normal Mean Corpuscular HGB Conc 32.8 g/dL 32.0-36.5 g/dL [facility]: 830 [facility] Normal Red Cell Distribution Width 11.7 % 1 1.5-14.5 % [facility]: 0 [facility] Normal Platelet Count, Automated 283 10 150 -450 10 [facility]: 8[address] [facility] Normal Neutrophils % 53.5 % 36.0-66.0 % [facility]: [address] [facility] Normal Lymph % 35.7 % 24.0-44.0 % [facility]: [address] [facility] High Hendry % 8.9 % 0.0-5.0 % [facility]: [address] [facility] Normal Eos % 0.9 % 0.0-3.0 % Health system: 8[address] [facility] Normal Baso % 1.0 % 0.0-1.0 % [facility]: [address] [facility] Normal Immature Granulocyte % 0.0 % 0-3.0 % [facility]: [address] [facility] Normal Nucleated Red Blood Cell % 0.0 % 0- 0 % [facility]: [address] [facility] Normal Neutrophils # 3.1 10 1.5-8.5 10 [facility]: [address] [facility] Normal Lymph # 2.0 10 1.5-5.0 10 [facility]: [address] [facility] Normal Hendry # 0.5 10 0.0-0.8 10 [facility]: [address] [facility] Normal Eos # 0.1 10 0.0-0.5 10 [facility]: [address] [facility] Normal Baso # 0.1 10 0.0-0.2 10 [facility]: [address] [facility] 03/30/2020 CMP, Serum or Plasma Normal Glucose, Fastin g 86 mg/dL 70-100 mg/dL [facility]: [address] [facility] Normal Blood Urea Nitrogen 11 mg/dL 7-18 mg /dL [facility]: [address] [facility] Normal Creatinine for GFR 0.73 mg/dL 0.55-1 .30 mg/dL [facility]: 0 [facility] Normal Glomerular Filtration Rate > 60.0 >6 0 [facility]: [address] [facility] Normal Sodium Level 140 mEq/L 136-145 mEq/L [facility]: 0 [facility] Normal Potassium Serum 4.4 mEq/L 3.5-5.1 mE q/L [facility]: 0 [facility] Normal Chloride Level 107 mEq/L 98-107 mEq/ L [facility]: 0 [facility] Normal Carbon Dioxide Level 29 mEq/L 21-32 mEq/L [facility]: [address] [place] [address] Low Anion Gap 4 mEq/L 8-16 mEq/L [facility]: [address] [place] [address] Normal Calcium Level 10.0 mg/dL 8.5-10.1 mg /dL [facility]: [address] [place] [address] Normal AST/SGOT 10 U/L 7-37 U/L [facility]: [address] [place] [address] Normal ALT/SGPT 17 U/L 12-78 U/L [facility]: [address] [place] [address] Normal Alkaline Phosphatase 89 U/L 45-117 U /L [facility]: [address] [place] [address] Normal Bilirubin,total 0.5 mg/dL 0.2-1.0 mg /dL [facility]: [address] [place] [address] Normal Total Protein 7.8 gm/dL 6.4-8.2 gm/d L [facility]: 0 [facility] Normal Albumin 4.1 gm/dL 3.2-5.2 gm/dL Noemy l [facility]: [address] [place] [address] Low Albumin/globulin Ratio 1.1 1.2-2. 2 [facility]: [address] [place] [address] 03/30/2020 TSH, Serum or Plasma Normal Thyroid Stimulating Hormone 0.833 uIU/mL 0.358-3.740 uIU/mL [facility] nter: 0 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 05/22/2020 Posttraumatic Stress Disorder; Severe Recurrent Major Depression without Psychotic Features; Generalized Anxiety Disorder; Bipolar Disorder STEVE SchreiberW-R: [address], [place] [address], Ph. 05/16/2020 Posttraumatic Stress Disorder; Severe Recurrent Major Depression without Psychotic Features; Generalized Anxiety Disorder; Bipolar Disorder STEVE SchreiberW-R: [address], [place] [address], Ph. 05/15/2020 Marley Khan MD: [address] [place] [address], Ph. 05/08/2020 Moderate Recurrent Major Depression; Generalized Anxiety Disorder; Panic Disorder; Bipolar Disorder STEVE SchreiberW-R: [address], [place] [address], Ph. 05/01/2020 STEVE SchreiberW-R: [address], [place] [address], Ph. 04/24/2020 Generalized Anxiety Disorder; Posttraumatic Stress Disorder; Moderate Recurrent Major Depression; Panic Disorder STEVE SchreiberW-R: [address], [place] [address], Ph. 04/10/2020 Discharge from [facility]; Mental Health Screening Assessment Deb Lanier PA-C: [address] [place] [address], Ph. 04/05/2020 Generalized Anxiety Disorder; Bipolar Disorder; Panic Disorder STEVE SchreiberW-R: [address] [place] [address], Ph. 03/30/2020 Generalized Anxiety Disorder; Moderate Recurrent Major Depression; Posttraumatic Stress Disorder; Panic Disorder STEVE SchreiberW-R: [address] [place] [address], Ph. 03/23/2020 Generalized Anxiety Disorder; Bipolar Disorder; Panic Disorder; Posttraumatic Stress Disorder Karina Conrad PLAYER SERVICES REPRESENTATIVE-R: [address] [place] [address], Ph. 03/15/2020 Posttraumatic Stress Disorder; Severe Recurrent Major Depression; Generalized Anxiety Disorder; Panic Disorder Karina Conrad PLAYER SERVICES REPRESENTATIVE-R: [address] [place] [address], Ph. 03/08/2020 Generalized Acute Body Pains; Loss of Sense of Smell Deb Lanier PA-C: [address] [place] [address], Ph. 03/02/2020 Posttraumatic Stress Disorder; Severe Recurrent Major Depression without Psychotic Features; Generalized Anxiety Disorder STEVE SchreiberW-R: [address] [place] [address], Ph. 02/23/2020 Generalized Anxiety Disorder; Posttraumatic Stress Disorder; Panic Disorder; Severe Recurrent Major Depression without Psychotic Features; Bipolar Disorder Karina Conrad PLAYER SERVICES REPRESENTATIVE-R: [address] [place] [address], Ph. 02/17/2020 Posttraumatic Stress Disorder; Severe Recurrent Major Depression without Psychotic Features; Generalized Anxiety Disorder; Chlamydial Epididymitis STEVE SchreiberW-R: [address] [place] [address], Ph. 02/10/2020 Bipolar Disorder; Severe Recurrent Major Depression; Generalized Anxiety Disorder; Posttraumatic Stress Disorder Karina Conrad, [facility]-R: [address] [place] [address], Ph. Social History Tobacco Smoking Status Light [...] 20 Height 63 in 03/08/2020 10:00AM ESTABLISHED [id number] Height Weight BMI Blood Pressure 63 in [...]
--- OUTSIDE RECORDS SUMMARY | 2020-06-07 15:44 | CCD ---
Author Organization Unknown Address [address] [place] [address] Phone [phone] Care Team Providers Care Flight Service Agent Name Role Phone Deb Lanier Unavailable Unavailable [...] 11/22/2016 History Contraception Care Management Active 12/27/2016 orangutrans story Dental Arch Length Loss Secondary to Dental Caries Active 02/05/2017 History Procedure by Method Active 03/19/2017 History Dental Caries on Smooth Surface Penetrating into Dentin Active 03/13/2018 History Sexual Function Painful Active 03/20/2018 History Endocrine/metabolic Screening Active 06/26/2018 orangutrans story Cardiovascular Measurement - Finding Active 06/26/2018 [...] White Blood Count 5.7 10 4.0-10.[address] [facility]: [address] [place] [address] Normal Red Blood Count 4.34 10 4.00-5.[address] [facility]: [address] [place] [address] Normal Hemoglobin 13.7 g/dL 12.0-15.5 g/dL [facility]: 0 [facility] Normal Hematocrit 41.8 % 36.0-47.0 % [facility]: [address] [place] [address] High Mean Corpuscular Volume 96.3 fL 80.0 -96.[address] [facility]: [address] [place] [address] Normal Mean Corpuscular Hemoglobin 31.6 pg 27.0-33.[address] [facility]: [address] [place] [address] Normal Mean Corpuscular HGB Conc 32.8 g/dL 32.0-36.5 g/dL [facility]: [address] [facility] Normal Red Cell Distribution Width 11.7 % 1 1.5-14.5 % [facility]: 0 [facility] Normal Platelet Count, Automated 283 10 150 -[address] [facility]: [address] [facility] Normal Neutrophils % 53.5 % 36.0-66.0 % [facility]: [address] [facility] Normal Lymph % 35.7 % 24.0-44.0 % [facility]: [address] [facility] High [place]lin % 8.9 % 0.0-5.0 % [facility]: [address] [facility] Normal Eos % 0.9 % 0.0-3.0 % [facility]: [address] [facility] Normal Baso % 1.0 % 0.0-1.0 % [facility]: [address] [facility] Normal Immature Granulocyte % 0.0 % 0-3.0 % [facility]: [address] [facility] Normal Nucleated Red Blood Cell % 0.0 % 0- 0 % [facility]: [address] [facility] Normal Neutrophils # 3.1 10 1.5-8.5 10 Noemy [facility]: [address] [facility] Normal Lymph # 2.0 10 1.5-5.0 10 [facility]: [address] [facility] Normal Collin # 0.5 10 0.0-0.8 10 [facility]: [address] [facility] Normal Eos # 0.1 10 0.0-0.[address] [facility]: [address] [facility] Normal Baso # 0.1 10 0.0-0.2 10 [facility]: [address] [facility] 03/30/2020 CMP, Serum or Plasma Normal Glucose, Fastin g 86 mg/dL 70-100 mg/dL [facility]: 83 0 [facility] Normal Blood Urea Nitrogen 11 mg/dL 7-18 mg /dL [facility]: [address] [facility] Normal Creatinine for GFR 0.73 mg/dL 0.55-1 .30 mg/dL [facility]: 0 [facility] Normal Glomerular Filtration Rate > 60.0 >[address] [facility]: [address] [facility] Normal Sodium Level 140 mEq/L 136-145 mEq/L [facility]: 0 [facility] Normal Potassium Serum 4.4 mEq/L 3.5-5.1 mE q/L [facility]: 0 [facility] Normal Chloride Level 107 mEq/L 98-107 mEq/ L [facility]: 0 [facility] Normal Carbon Dioxide Level 29 mEq/L 21-32 mEq/L [facility]: [address] [place] [address] Low Anion Gap 4 mEq/L 8-16 mEq/L [facility]: [address] [place] [address] Normal Calcium Level 10.0 mg/dL 8.5-10.1 mg /dL [facility]: [address] [place] [address] Normal AST/SGOT 10 U/L 7-37 U/L [facility]: [address] [place] [address] Normal ALT/SGPT 17 U/L 12-78 U/L [facility]: [address] [place] [address] Normal Alkaline Phosphatase 89 U/L 45-117 U /L [facility]: [address] [place] [address] Normal Bilirubin,total 0.5 mg/dL 0.2-1.0 mg /dL [facility]: [address] [place] [address] Normal Total Protein 7.8 gm/dL 6.4-8.2 gm/d L [facility]: 0 [facility] Normal Albumin 4.1 gm/dL 3.2-5.2 gm/dL Noemy l [facility]: [address] [place] [address] Low Albumin/globulin Ratio 1.1 1.2-2. 2 [facility]: [address] [place] [address] 03/30/2020 TSH, Serum or Plasma Normal Thyroid Stimulating Hormone 0.833 uIU/mL 0.358-3.740 uIU/mL [facility] nter: 0 [facility] 03/30/2020 Prolactin, Serum Normal Prolactin 4.4 NG/mL 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 05/29/2020 Posttraumatic Stress Disorder; Severe Recurrent Major Depression without Psychotic Features; Generalized Anxiety Disorder; Bipolar Disorder Karina Conrad THRASHER FEEDER-R: [address], [address], [place] [address], Ph. 05/22/2020 Posttraumatic Stress Disorder; Severe Recurrent Major Depression without Psychotic Features; Generalized Anxiety Disorder; Bipolar Disorder Karina Conrad THRASHER FEEDER-R: [address], [place] [address], Ph. 05/16/2020 Posttraumatic Stress Disorder; Severe Recurrent Major Depression without Psychotic Features; Generalized Anxiety Disorder; Bipolar Disorder Karina Conrad THRASHER FEEDER-R: [address], [place] [address], Ph. 05/15/2020 Marley Khan MD: [address] [place] [address], Ph. 05/08/2020 Moderate Recurrent Major Depression; Generalized Anxiety Disorder; Panic Disorder; Bipolar Disorder Karina Conrad THRASHER FEEDER-R: [address], [address], [place] [address], Ph. 05/01/2020 Karina Conrad THRASHER FEEDER-R: [address], [address], [place] [address], Ph. 04/24/2020 Generalized Anxiety Disorder; Posttraumatic Stress Disorder; Moderate Recurrent Major Depression; Panic Disorder Karina Conrad THRASHER FEEDER-R: [address], [address], [place] [address], Ph. 04/10/2020 Discharge from [facility]; Mental Health Screening Assessment Deb Lanier PA-C: [address] [place] [address], Ph. 04/05/2020 Generalized Anxiety Disorder; Bipolar Disorder; Panic Disorder Karina Conrad THRASHER FEEDER-R: [address] [place] [address], Ph. 03/30/2020 Generalized Anxiety Disorder; Moderate Recurrent Major Depression; Posttraumatic Stress Disorder; Panic Disorder Karina Conrad THRASHER FEEDER-R: [address] [place] [address], Ph. 03/23/2020 Generalized Anxiety Disorder; Bipolar Disorder; Panic Disorder; Posttraumatic Stress Disorder Karina Conrad THRASHER FEEDER-R: [address] [place] [address], Ph. 03/15/2020 Posttraumatic Stress Disorder; Severe Recurrent Major Depression; Generalized Anxiety Disorder; Panic Disorder Karina Conrad [facility]-R: [address] [place] [address], Ph. 03/08/2020 Generalized Acute Body Pains; Loss of Sense of Smell Deb Lanier PA-C: [address] [place] [address], Ph. 03/02/2020 Posttraumatic Stress Disorder; Severe Recurrent Major Depression without Psychotic Features; Generalized Anxiety Disorder Karina Conrad THRASHER FEEDER-R: [address] [place] [address], Ph. 02/23/2020 Generalized Anxiety Disorder; Posttraumatic Stress Disorder; Panic Disorder; Severe Recurrent Major Depression without Psychotic Features; Bipolar Disorder Karina Conrad THRASHER FEEDER-R: [address] [place] [address], Ph. 02/17/2020 Posttraumatic Stress Disorder; Severe Recurrent Major Depression without Psychotic Features; Generalized Anxiety Disorder; Chlamydial Epididymitis Karina Conrad [facility]-R: [address] [place] [address], Ph. 02/10/2020 Bipolar Disorder; Severe Recurrent Major Depression; Generalized Anxiety Disorder; Posttraumatic Stress Disorder Karina Conrad THRASHER FEEDER-R: [address] [place] [address], Ph. Social History Tobacco Smoking Status Light [...] 20 Height 63 in 03/08/2020 10:00AM ESTABLISHED [id number] Height Weight BMI Blood Pressure 63 in [...]
--- OUTSIDE RECORDS SUMMARY | 2020-06-07 15:45 | CCD ---
Author Organization Unknown Address [address] [place] [id number] Phone [phone] Care Team Providers Care Bioinformatics Specialist Name Role Phone Deb Lanier Unavailable Unavailable [...] 11/22/2016 History Contraception Care Management Active 12/27/2016 [facility] story Dental Arch Length Loss Secondary to Dental Caries Active 02/05/2017 History Procedure by Method Active 03/19/2017 History Dental Caries on Smooth Surface Penetrating into Dentin Active 03/13/2018 History Sexual Function Painful Active 03/20/2018 History Endocrine/metabolic Screening Active 06/26/2018 [facility] Cardiovascular Measurement - Finding Active 06/26/2018 History [...] White Blood Count 5.7 10 4.0-10.0 10 [facility]: [address] [place] [address] Normal Red Blood Count 4.34 10 4.00-5.40 10 [facility]: [address] [place] [address] Normal Hemoglobin 13.7 g/dL 12.0-15.5 g/dL [facility]: 0 [facility] Normal Hematocrit 41.8 % 36.0-47.0 % [facility]: [address] [place] [address] High Mean Corpuscular Volume 96.3 fL 80.0 -96.0 fL [facility]: [address] [place] [address] Normal Mean Corpuscular Hemoglobin 31.6 pg 27.0-33.0 pg [facility]: [address] [place] [address] Normal Mean Corpuscular HGB Conc 32.8 g/dL 32.0-36.5 g/dL [facility]: 830 [facility] Normal Red Cell Distribution Width 11.7 % 1 1.5-14.5 % [facility]: 0 [facility] Normal Platelet Count, Automated 283 10 150 -450 10 [facility]: 830 [facility] Normal Neutrophils % 53.5 % 36.0-66.0 % [facility]: 830 [facility] Normal Lymph % 35.7 % 24.0-44.0 % [facility]: 830 [facility] High [place] % 8.9 % 0.0-5.0 % [facility]: 830 [facility] Normal Eos % 0.9 % 0.0-3.0 % [facility]: 830 [facility] Normal Baso % 1.0 % 0.0-1.0 % [facility]: 830 [facility] Normal Immature Granulocyte % 0.0 % 0-3.0 % [facility]: 830 [facility] Normal Nucleated Red Blood Cell % 0.0 % 0- 0 % [facility]: 830 [facility] Normal Neutrophils # 3.1 10 1.5-8.5 10 [facility]: 830 [facility] Normal Lymph # 2.0 10 1.5-5.0 10 [facility]: 830 [facility] Normal [place] # 0.5 10 0.0-0.[address] [facility]: 830 [facility] Normal Eos # 0.1 10 0.0-0.5 10 [facility]: 830 [facility] Normal Baso # 0.1 10 0.0-0.[address] [facility]: 830 [facility] 03/30/2020 CMP, Serum or Plasma Normal Glucose, Fastin g 86 mg/dL 70-100 mg/dL [facility]: 83 0 [facility] Normal Blood Urea Nitrogen 11 mg/dL 7-18 mg /dL [facility]: 830 [facility] Normal Creatinine for GFR 0.73 mg/dL 0.55-1 .30 mg/dL [facility]: 0 [facility] Normal Glomerular Filtration Rate > 60.0 >6 0 [facility]: 830 [facility] Normal Sodium Level 140 mEq/L 136-145 mEq/L [facility]: 0 [facility] Normal Potassium Serum 4.4 mEq/L 3.5-5.1 mE q/L [facility]: 0 [facility] Normal Chloride Level 107 mEq/L 98-107 mEq/ L [facility]: 0 [facility] Normal Carbon Dioxide Level 29 mEq/L 21-32 mEq/L [facility]: [address] [place] [address] Low Anion Gap 4 mEq/L 8-16 mEq/L [facility]: [address] [place] [address] Normal Calcium Level 10.0 mg/dL 8.5-10.1 mg /dL [facility]: [address] [place] [address] Normal AST/SGOT 10 U/L 7-37 U/L [facility]: [address] [place] [address] Normal ALT/SGPT 17 U/L 12-78 U/L [facility]: [address] [place] [address] Normal Alkaline Phosphatase 89 U/L 45-117 U /L [facility]: [address] [place] [address] Normal Bilirubin,total 0.5 mg/dL 0.2-1.0 mg /dL [facility]: [address] [place] [address] Normal Total Protein 7.8 gm/dL 6.4-8.2 gm/d L [facility]: 0 [facility] Normal Albumin 4.1 gm/dL 3.2-5.2 gm/dL Noemy l [facility]: [address] [place] [address] Low Albumin/globulin Ratio 1.1 1.2-2. 2 [facility]: [address] [place] [address] 03/30/2020 TSH, Serum or Plasma Normal Thyroid Stimulating Hormone 0.833 uIU/mL 0.358-3.740 uIU/mL [facility] nter: 0 [facility] 03/30/2020 Prolactin, Serum Normal Prolactin 4.4 NG/mL [facility]: [address] [place] [address] 03/08/2020 COVID-19 RNA (SARS-CoV-2), QL, rn navigator-PCR, Respiratory Specimen Nasopharyngeal Normal Sars Cov 2 RNA not detected not detected Fi nal Associated Clinical Labs ([facility]): [address], [place] Past Encounters 05/22/2020 Posttraumatic Stress Disorder; Severe Recurrent Major Depression without Psychotic Features; Generalized Anxiety Disorder; Bipolar Disorder STEVE SchreiberW-R: [address] [facility], [facility] [address], [place] [address], Ph. 05/16/2020 Posttraumatic Stress Disorder; Severe Recurrent Major Depression without Psychotic Features; Generalized Anxiety Disorder; Bipolar Disorder STEVE SchreiberW-R: [address] [facility], [facility] [address], [place] [address], Ph. 05/15/2020 Marley Khan MD: [address] [place] [address], Ph. 05/08/2020 Moderate Recurrent Major Depression; Generalized Anxiety Disorder; Panic Disorder; Bipolar Disorder STEVE SchreiberW-R: [address] [facility], [facility] [address], [place] [address], Ph. 05/01/2020 STEVE SchreiberW-R: [address] [facility], [facility] [address], [place] [address], Ph. 04/24/2020 Generalized Anxiety Disorder; Posttraumatic Stress Disorder; Moderate Recurrent Major Depression; Panic Disorder STEVE SchreiberW-R: [address] [facility], [facility] [address], [place] [address], Ph. 04/10/[address] [facility]; Mental Health Screening Assessment Deb Lanier PA-C: [address] [place] [address], Ph. 04/05/2020 Generalized Anxiety Disorder; Bipolar Disorder; Panic Disorder STEVE SchreiberW-R: [address] [place] [address], Ph. 03/30/2020 Generalized Anxiety Disorder; Moderate Recurrent Major Depression; Posttraumatic Stress Disorder; Panic Disorder STEVE SchreiberW-R: [address] [place] [address], Ph. 03/23/2020 Generalized Anxiety Disorder; Bipolar Disorder; Panic Disorder; Posttraumatic Stress Disorder STEVE SchreiberW-R: [address] [place] [address], Ph. 03/15/2020 Posttraumatic Stress Disorder; Severe Recurrent Major Depression; Generalized Anxiety Disorder; Panic Disorder STEVE SchreiberW-R: [address] [place] [address], Ph. 03/08/2020 Generalized Acute Body Pains; Loss of Sense of Smell Deb Lanier PA-C: [address] [place] [address], Ph. 03/02/2020 Posttraumatic Stress Disorder; Severe Recurrent Major Depression without Psychotic Features; Generalized Anxiety Disorder STEVE SchreiberW-R: [address] [place] [address], Ph. 02/23/2020 Generalized Anxiety Disorder; Posttraumatic Stress Disorder; Panic Disorder; Severe Recurrent Major Depression without Psychotic Features; Bipolar Disorder STEVE SchreiberW-R: [address] [place] [address], Ph. 02/17/2020 Posttraumatic Stress Disorder; Severe Recurrent Major Depression without Psychotic Features; Generalized Anxiety Disorder; Chlamydial Epididymitis STEVE SchreiberW-R: [address] [place] [address], Ph. 02/10/2020 Bipolar Disorder; Severe Recurrent Major Depression; Generalized Anxiety Disorder; Posttraumatic Stress Disorder STEVE SchreiberW-R: [address] [place] [address], Ph. Social History Tobacco Smoking Status Light [...] 20 Height 63 in 03/08/2020 10:00AM ESTABLISHED [id number] Height Weight BMI Blood Pressure 63 in [...]
--- OUTSIDE RECORDS SUMMARY | 2020-06-07 15:45 | CCD ---
Author Organization Unknown Address [address] [place] [address] Phone [phone] Care Team Providers Care Hide Trimmer Name Role Phone Deb Lanier Unavailable Unavailable [...] 11/22/2016 History Contraception Care Management Active 12/27/2016 [email or web address] story Dental Arch Length Loss Secondary to Dental Caries Active 02/05/2017 History Procedure by Method Active 03/19/2017 History Dental Caries on Smooth Surface Penetrating into Dentin Active 03/13/2018 History Sexual Function Painful Active 03/20/2018 History Endocrine/metabolic Screening Active 06/26/2018 [email or web address] story Cardiovascular Measurement - Finding Active 06/26/2018 [...] White Blood Count 5.7 10 4.0-10.0 10 [facility]: [address] [place] [address] Normal Red Blood Count 4.34 10 4.00-5.40 10 [facility]: [address] [place] [address] Normal Hemoglobin 13.7 g/dL 12.0-15.5 g/dL [facility]: 0 [facility] Normal Hematocrit 41.8 % 36.0-47.0 % [facility]: [address] [place] [address] High Mean Corpuscular Volume 96.3 fL 80.0 -96.0 fL [facility]: [address] [place] [address] Normal Mean Corpuscular Hemoglobin 31.6 pg 27.0-33.0 pg [facility]: [address] [place] [address] Normal Mean Corpuscular HGB Conc 32.8 g/dL 32.0-36.5 g/dL [facility]: 830 [facility] Normal Red Cell Distribution Width 11.7 % 1 1.5-14.5 % [facility]: 0 [facility] Normal Platelet Count, Automated 283 10 150 -450 10 [facility]: 830 [facility] Normal Neutrophils % 53.5 % 36.0-66.0 % [facility]: 830 [facility] Normal Lymph % 35.7 % 24.0-44.0 % [facility]: 830 [facility] High [place] % 8.9 % 0.0-5.0 % [facility]: 830 [facility] Normal Eos % 0.9 % 0.0-3.0 % [facility]: 830 [facility] Normal Baso % 1.0 % 0.0-1.0 % [facility]: 830 [facility] Normal Immature Granulocyte % 0.0 % 0-3.0 % [facility]: 830 [facility] Normal Nucleated Red Blood Cell % 0.0 % 0- 0 % [facility]: 830 [facility] Normal Neutrophils # 3.1 10 1.5-8.5 10 [facility]: 830 [facility] Normal Lymph # 2.0 10 1.5-5.0 10 [facility]: 830 [facility] Normal [place] # 0.5 10 0.0-0.8 10 [facility]: 830 [facility] Normal Eos # 0.1 10 0.0-0.5 10 [facility]: 830 [facility] Normal Baso # 0.1 10 0.0-0.2 10 [facility]: 830 [facility] 03/30/2020 CMP, Serum or Plasma Normal Glucose, Fastin g 86 mg/dL 70-100 mg/dL [facility]: 83 0 [facility] Normal Blood Urea Nitrogen 11 mg/dL 7-18 mg /dL [facility]: 830 [facility] Normal Creatinine for GFR 0.73 mg/dL 0.55-1 .30 mg/dL [facility]: 0 [facility] Normal Glomerular Filtration Rate > 60.0 >6 0 [facility]: 830 [facility] Normal Sodium Level 140 mEq/L 136-145 mEq/L [facility]: 0 [facility] Normal Potassium Serum 4.4 mEq/L 3.5-5.1 mE q/L [facility]: 0 [facility] Normal Chloride Level 107 mEq/L 98-107 mEq/ L [facility]: 0 [facility] Normal Carbon Dioxide Level 29 mEq/L 21-32 mEq/L [facility]: [address] [place] [address] Low Anion Gap 4 mEq/L 8-16 mEq/L [facility]: [address] [place] [address] Normal Calcium Level 10.0 mg/dL 8.5-10.1 mg /dL [facility]: [address] [place] [address] Normal AST/SGOT 10 U/L 7-37 U/L [facility]: [address] [place] [address] Normal ALT/SGPT 17 U/L 12-78 U/L [facility]: [address] [place] [address] Normal Alkaline Phosphatase 89 U/L 45-117 U /L [facility]: [address] [place] [address] Normal Bilirubin,total 0.5 mg/dL 0.2-1.0 mg /dL [facility]: [address] [place] [address] Normal Total Protein 7.8 gm/dL 6.4-8.2 gm/d L [facility]: 0 [facility] Normal Albumin 4.1 gm/dL 3.2-5.2 gm/dL Noemy l [facility]: [address] [place] [address] Low Albumin/globulin Ratio 1.1 1.2-2. 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 05/22/2020 Posttraumatic Stress Disorder; Severe Recurrent Major Depression without Psychotic Features; Generalized Anxiety Disorder; Bipolar Disorder STEVE SchreiberW-R: [address], [place] [address], Ph. 05/16/2020 Posttraumatic Stress Disorder; Severe Recurrent Major Depression without Psychotic Features; Generalized Anxiety Disorder; Bipolar Disorder STEVE SchreiberW-R: [address], [place] [address], Ph. 05/15/2020 Marley Khan MD: [address] [place] [address], Ph. 05/08/2020 Moderate Recurrent Major Depression; Generalized Anxiety Disorder; Panic Disorder; Bipolar Disorder STEVE SchreiberW-R: [address], [place] [address], Ph. 05/01/2020 STEVE SchreiberW-R: [address], [place] [address], Ph. 04/24/2020 Generalized Anxiety Disorder; Posttraumatic Stress Disorder; Moderate Recurrent Major Depression; Panic Disorder STEVE SchreiberW-R: [address], [place] [address], Ph. 04/10/2020 Discharge from [facility]; Mental Health Screening Assessment Deb Lanier PA-C: [address] [place] [address], Ph. 04/05/2020 Generalized Anxiety Disorder; Bipolar Disorder; Panic Disorder STEVE SchreiberW-R: [address] [place] [address], Ph. 03/30/2020 Generalized Anxiety Disorder; Moderate Recurrent Major Depression; Posttraumatic Stress Disorder; Panic Disorder STEVE SchreiberW-R: [address] [place] [address], Ph. 03/23/2020 Generalized Anxiety Disorder; Bipolar Disorder; Panic Disorder; Posttraumatic Stress Disorder Karina Conrad PSYCHIATRIC MENTAL HEALTH NURSE-R: [address] [place] [address], Ph. 03/15/2020 Posttraumatic Stress Disorder; Severe Recurrent Major Depression; Generalized Anxiety Disorder; Panic Disorder Karina Conrad PSYCHIATRIC MENTAL HEALTH NURSE-R: [address] [place] [address], Ph. 03/08/2020 Generalized Acute Body Pains; Loss of Sense of Smell Deb Lanier PA-C: [address] [place] [address], Ph. 03/02/2020 Posttraumatic Stress Disorder; Severe Recurrent Major Depression without Psychotic Features; Generalized Anxiety Disorder STEVE SchreiberW-R: [address] [place] [address], Ph. 02/23/2020 Generalized Anxiety Disorder; Posttraumatic Stress Disorder; Panic Disorder; Severe Recurrent Major Depression without Psychotic Features; Bipolar Disorder Karina Conrad PSYCHIATRIC MENTAL HEALTH NURSE-R: [address] [place] [address], Ph. 02/17/2020 Posttraumatic Stress Disorder; Severe Recurrent Major Depression without Psychotic Features; Generalized Anxiety Disorder; Chlamydial Epididymitis STEVE SchreiberW-R: [address] [place] [address], Ph. 02/10/2020 Bipolar Disorder; Severe Recurrent Major Depression; Generalized Anxiety Disorder; Posttraumatic Stress Disorder Karina Conrad, [facility]: [address] [place] [address], Ph. Social History Tobacco Smoking Status Light [...] 20 Height 63 in 03/08/2020 10:00AM ESTABLISHED [id number] Height Weight BMI Blood Pressure 63 in [...]
--- OUTSIDE RECORDS SUMMARY | 2020-06-07 15:45 | CCD ---
Author Organization Unknown Address [address] [place] [address] Phone [phone] Care Team Providers Care Hand Box Folder Name Role Phone Deb Lanier Unavailable Unavailable Allergies Code Code System Name Reaction Severity Status Onset NKDA Medications Name Status Start Date Stop Date aripiprazole 10 mg tablet Completed 2019 aripiprazole 15 mg tablet Completed 2020 aripiprazole 5 mg tablet Completed 020 gabapentin 600 mg tablet Take 1 tablet every day by oral route at bedtime for 30 days. Active Not available quetiapine 300 mg tablet Active Not jeffrey ilable sertraline 100 mg tablet Active Not jeffrey ilable sertraline 50 mg tablet Completed 03/08/20 20 trazodone 150 mg tablet Take 1 tablet every day by oral route at dinner for 30 days. Active 05/15/2020 Not available trazodone 50 mg tablet Completed 1 Problems Name Status Onset Date Source Headache [...] 11/22/2016 History Contraception Care Management Active 12/27/2016 [employer] story Dental Arch Length Loss Secondary to Dental Caries Active 02/05/2017 History Procedure by Method Active 03/19/2017 History Dental Caries on Smooth Surface Penetrating into Dentin Active 03/13/2018 History Sexual Function Painful Active 03/20/2018 History Endocrine/metabolic Screening Active 06/26/2018 [employer] story Cardiovascular Measurement - Finding Active 06/26/2018 [...] White Blood Count 5.7 10 4.0-10.0 10 [facility]: [address] [place] [address] Normal Red Blood Count 4.34 10 4.00-5.40 10 [facility]: [address] [place] [address] Normal Hemoglobin 13.7 g/dL 12.0-15.5 g/dL [facility]: [address] [place] [address] Normal Hematocrit 41.8 % 36.0-47.0 % [facility]: [address] [place] [address] High Mean Corpuscular Volume 96.3 fL 80.0 -96.0 fL [facility]: [address] [place] [address] Normal Mean Corpuscular Hemoglobin 31.6 pg 27.0-33.0 pg [facility]: [address] [place] [address] Normal Mean Corpuscular HGB Conc 32.8 g/dL 32.0-36.5 g/dL [facility]: [address] [place] [address] Normal Red Cell Distribution Width 11.7 % 1 1.5-14.5 % [facility]: [address] [place] [address] Normal Platelet Count, Automated 283 10 150 -450 10 [facility]: [address] [place] [address] Normal Neutrophils % 53.5 % 36.0-66.0 % Fin [facility]: [address] [place] [address] Normal Lymph % 35.7 % 24.0-44.0 % [facility]: [address] [facility] High [place] % 8.9 % 0.0-5.0 % Final [facility]: [address] [facility] Normal Eos % 0.9 % 0.0-3.0 % [facility]: [address] [facility] Normal Baso % 1.0 % 0.0-1.0 % [facility]: [address] [facility] Normal Immature Granulocyte % 0.0 % 0-3.0 % [facility]: [address] [facility] Normal Nucleated Red Blood Cell % 0.0 % 0- 0 % [facility]: [address] [facility] Normal Neutrophils # 3.1 10 1.5-8.5 10 [facility] [address] [facility] Normal Lymph # 2.0 10 1.5-5.0 10 [facility]: [address] [facility] Normal [place] # 0.5 10 0.0-0.8 10 [facility]: [address] [facility] Normal Eos # 0.1 10 0.0-0.5 10 [facility]: [address] [facility] Normal Baso # 0.1 10 0.0-0.2 10 [facility]: [address] [facility] 03/30/2020 CMP, Serum or Plasma Normal Glucose, Fastin g 86 mg/dL 70-100 mg/dL [facility]: 83 0 [facility] Normal Blood Urea Nitrogen 11 mg/dL 7-18 mg /dL [facility]: [address] [facility] Normal Creatinine for GFR 0.73 mg/dL 0.55-1 .30 mg/dL [facility]: 0 [facility] Normal Glomerular Filtration Rate > 60.0 >6 0 [facility]: [address] [facility] Normal Sodium Level 140 mEq/L 136-145 mEq/L [facility]: [address] [facility] Normal Potassium Serum 4.4 mEq/L 3.5-5.1 mE q/L [facility]: 0 [facility] Normal Chloride Level 107 mEq/L 98-107 mEq/ L [facility]: 0 [facility] Normal Carbon Dioxide Level 29 mEq/L 21-32 mEq/L [facility]: [address] [place] [address] Low Anion Gap 4 mEq/L 8-16 mEq/L [facility]: 0 [facility] Normal Calcium Level 10.0 mg/dL 8.5-10.1 mg /dL [facility]: [address] [place] [address] Normal AST/SGOT 10 U/L 7-37 U/L [facility]: 0 [facility] Normal ALT/SGPT 17 U/L 12-78 U/L [facility]: [address] [place] [address] Normal Alkaline Phosphatase 89 U/L 45-117 U /L [facility]: 0 [facility] Normal Bilirubin,total 0.5 mg/dL 0.2-1.0 mg /dL [facility]: 0 [facility] Normal Total Protein 7.8 gm/dL 6.4-8.2 gm/d L [facility]: 0 [facility] Normal Albumin 4.1 gm/dL 3.2-5.2 gm/dL Noemy l [facility]: [address] [place] [address] Low Albumin/globulin Ratio 1.1 1.2-2. 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 05/15/2020 Marley Khan MD: [address] [place] [address], Ph. 05/08/2020 Moderate Recurrent Major Depression; Generalized Anxiety Disorder; Panic Disorder; Bipolar Disorder Karina Conrad GRADER [employer]ROL-R: [address] [facility], [facility] [address], [place] [address], Ph. 05/01/2020 STEVE SchreiberW-R: [address] [facility], [facility] [address], [place] [address], Ph. 04/24/2020 Generalized Anxiety Disorder; Posttraumatic Stress Disorder; Moderate Recurrent Major Depression; Panic Disorder STEVE SchreiberW-R: [address] [facility], [facility] [address], [place] [address], Ph. 04/10/2020 Discharge from [facility]; Mental Health Screening Assessment Deb Lanier PA-C: [address] [place] [address], Ph. 04/05/2020 Generalized Anxiety Disorder; Bipolar Disorder; Panic Disorder Karina Conrad [employer]-R: [address] [place] [address], Ph. 03/30/2020 Generalized Anxiety Disorder; Moderate Recurrent Major Depression; Posttraumatic Stress Disorder; Panic Disorder Karina Conrad GRAD[employer]-R: [address] [place] [address], Ph. 03/23/2020 Generalized Anxiety Disorder; Bipolar Disorder; Panic Disorder; Posttraumatic Stress Disorder Karina Conrad [employer]-R: [address] [place] [address], Ph. 03/15/2020 Posttraumatic Stress Disorder; Severe Recurrent Major Depression; Generalized Anxiety Disorder; Panic Disorder STEVE SchreiberW-R: [address] [place] [address], Ph. 03/08/2020 Generalized Acute Body Pains; Loss of Sense of Smell Deb Lanier PA-C: [address] [place] [address], Ph. 03/02/2020 Posttraumatic Stress Disorder; Severe Recurrent Major Depression without Psychotic Features; Generalized Anxiety Disorder STEVE SchreiberW-R: [address] [place] [phone], Ph. 02/23/2020 Generalized Anxiety Disorder; Posttraumatic Stress Disorder; Panic Disorder; Severe Recurrent Major Depression without Psychotic Features; Bipolar Disorder Karina Conrad [employer]-R: [address] [place] [address], Ph. 02/17/2020 Posttraumatic Stress Disorder; Severe Recurrent Major Depression without Psychotic Features; Generalized Anxiety Disorder; Chlamydial Epididymitis STEVE SchreiberW-R: [address] [place] [phone], Ph. 02/10/2020 Bipolar Disorder; Severe Recurrent Major Depression; Generalized Anxiety Disorder; Posttraumatic Stress Disorder Karina Conrad GRADER PATROL-R: [address] [place] [phone], Ph. Social History Tobacco Smoking Status Light [...] 20 Height 63 in 03/08/2020 10:00AM ESTABLISHED [id number] Height Weight BMI Blood Pressure 63 in [...]
--- OUTSIDE RECORDS SUMMARY | 2020-06-07 15:45 | CCD ---
Author Organization Unknown Address [address] [place] [address] Phone [phone] Care Team Providers Care Electronic Wirer Name Role Phone Deb Lanier Unavailable Unavailable [...] 11/22/2016 History Contraception Care Management Active 12/27/2016 [employer] story Dental Arch Length Loss Secondary to Dental Caries Active 02/05/2017 History Procedure by Method Active 03/19/2017 History Dental Caries on Smooth Surface Penetrating into Dentin Active 03/13/2018 History Sexual Function Painful Active 03/20/2018 History Endocrine/metabolic Screening Active 06/26/2018 [employer] story Cardiovascular Measurement - Finding Active 06/26/2018 [...] White Blood Count 5.7 10 4.0-10.0 10 [facility]: [address] [place] [address] Normal Red Blood Count 4.34 10 4.00-5.40 10 [facility]: [address] [place] [address] Normal Hemoglobin 13.7 g/dL 12.0-15.5 g/dL [facility]: 0 [facility] Normal Hematocrit 41.8 % 36.0-47.0 % [facility]: [address] [place] [address] High Mean Corpuscular Volume 96.3 fL 80.0 -96.0 fL [facility]: [address] [place] [address] Normal Mean Corpuscular Hemoglobin 31.6 pg 27.0-33.0 pg [facility]: [address] [place] [address] Normal Mean Corpuscular HGB Conc 32.8 g/dL 32.0-36.5 g/dL [facility]: [address] [facility] Normal Red Cell Distribution Width 11.7 % 1 1.5-14.5 % [facility]: 0 [facility] Normal Platelet Count, Automated 283 10 150 -450 10 [facility]: [address] [facility] Normal Neutrophils % 53.5 % 36.0-66.0 % [facility]: [address] [facility] Normal Lymph % 35.7 % 24.0-44.0 % [facility]: [address] [facility] High [place] % 8.9 % 0.0-5.0 % [facility]: [address] [facility] Normal Eos % 0.9 % 0.0-3.0 % [facility]: [address] [facility] Normal Baso % 1.0 % 0.0-1.0 % [facility]: [address] [facility] Normal Immature Granulocyte % 0.0 % 0-3.0 % [facility]: [address] [facility] Normal Nucleated Red Blood Cell % 0.0 % 0- 0 % [facility]: [address] [facility] Normal Neutrophils # 3.1 10 1.5-8.5 10 Noemy [facility]: [address] [facility] Normal Lymph # 2.0 10 1.5-5.0 10 [facility]: [address] [facility] Normal [place] # 0.5 10 0.0-0.[address] [facility]: [address] [facility] Normal Eos # 0.1 10 0.0-0.5 10 [facility]: [address] [facility] Normal Baso # 0.1 10 0.0-0.[address] [facility]: [address] [facility] 03/30/2020 CMP, Serum or Plasma Normal Glucose, Fastin g 86 mg/dL 70-100 mg/dL [facility]: 83 0 [facility] Normal Blood Urea Nitrogen 11 mg/dL 7-18 mg /dL [facility]: [address] [facility] Normal Creatinine for GFR 0.73 mg/dL 0.55-1 .30 mg/dL [facility]: 0 [facility] Normal Glomerular Filtration Rate > 60.0 >6 0 [facility]: [address] [facility] Normal Sodium Level 140 mEq/L 136-145 mEq/L [facility]: 0 [facility] Normal Potassium Serum 4.4 mEq/L 3.5-5.1 mE q/L [facility]: 0 [facility] Normal Chloride Level 107 mEq/L 98-107 mEq/ L [facility]: 0 [facility] Normal Carbon Dioxide Level 29 mEq/L 21-32 mEq/L [facility]: [address] [place] [address] Low Anion Gap 4 mEq/L 8-16 mEq/L [facility]: [address] [place] [address] Normal Calcium Level 10.0 mg/dL 8.5-10.1 mg /dL [facility]: [address] [place] [address] Normal AST/SGOT 10 U/L 7-37 U/L [facility]: [address] [place] [address] Normal ALT/SGPT 17 U/L 12-78 U/L [facility]: [address] [place] [address] Normal Alkaline Phosphatase 89 U/L 45-117 U /L [facility]: [address] [place] [address] Normal Bilirubin,total 0.5 mg/dL 0.2-1.0 mg /dL [facility]: [address] [place] [address] Normal Total Protein 7.8 gm/dL 6.4-8.2 gm/d L [facility]: 0 [facility] Normal Albumin 4.1 gm/dL 3.2-5.2 gm/dL Noemy l [facility]: [address] [place] [address] Low Albumin/globulin Ratio 1.1 1.2-2. 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 05/22/2020 Posttraumatic Stress Disorder; Severe Recurrent Major Depression without Psychotic Features; Generalized Anxiety Disorder; Bipolar Disorder STEVE SchreiberW-R: [address], [place] [address], Ph. 05/16/2020 Posttraumatic Stress Disorder; Severe Recurrent Major Depression without Psychotic Features; Generalized Anxiety Disorder; Bipolar Disorder STEVE SchreiberW-R: [address], [place] [address], Ph. 05/15/2020 Marley Khan MD: [address] [place] [address], Ph. 05/08/2020 Moderate Recurrent Major Depression; Generalized Anxiety Disorder; Panic Disorder; Bipolar Disorder STEVE SchreiberW-R: [address], [place] [address], Ph. 05/01/2020 STEVE SchreiberW-R: [address], [place] [address], Ph. 04/24/2020 Generalized Anxiety Disorder; Posttraumatic Stress Disorder; Moderate Recurrent Major Depression; Panic Disorder STEVE SchreiberW-R: [address], [place] [address], Ph. 04/10/2020 Discharge from [facility]; Mental Health Screening Assessment Deb Lanier PA-C: [address] [place] [address], Ph. 04/05/2020 Generalized Anxiety Disorder; Bipolar Disorder; Panic Disorder STEVE SchreiberW-R: [address] [place] [address], Ph. 03/30/2020 Generalized Anxiety Disorder; Moderate Recurrent Major Depression; Posttraumatic Stress Disorder; Panic Disorder STEVE SchreiberW-R: [address] [place] [address], Ph. 03/23/2020 Generalized Anxiety Disorder; Bipolar Disorder; Panic Disorder; Posttraumatic Stress Disorder Karina Conrad HEAT READER-R: [address] [place] [address], Ph. 03/15/2020 Posttraumatic Stress Disorder; Severe Recurrent Major Depression; Generalized Anxiety Disorder; Panic Disorder Karina Conrad HEAT READER-R: [address] [place] [address], Ph. 03/08/2020 Generalized Acute Body Pains; Loss of Sense of Smell Deb Lanier PA-C: [address] [place] [address], Ph. 03/02/2020 Posttraumatic Stress Disorder; Severe Recurrent Major Depression without Psychotic Features; Generalized Anxiety Disorder STEVE SchreiberW-R: [address] [place] [address], Ph. 02/23/2020 Generalized Anxiety Disorder; Posttraumatic Stress Disorder; Panic Disorder; Severe Recurrent Major Depression without Psychotic Features; Bipolar Disorder Karina Conrad HEAT READER-R: [address] [place] [address], Ph. 02/17/2020 Posttraumatic Stress Disorder; Severe Recurrent Major Depression without Psychotic Features; Generalized Anxiety Disorder; Chlamydial Epididymitis STEVE SchreiberW-R: [address] [place] [address], Ph. 02/10/2020 Bipolar Disorder; Severe Recurrent Major Depression; Generalized Anxiety Disorder; Posttraumatic Stress Disorder Karina Conrad, [facility]-R: [address] [place] [address], Ph. Social History Tobacco Smoking Status Light [...] 20 Height 63 in 03/08/2020 10:00AM ESTABLISHED [id number] Height Weight BMI Blood Pressure 63 in [...]
--- OUTSIDE RECORDS SUMMARY | 2020-06-07 15:45 | CCD ---
Author Organization Unknown Address [address] [place] [address] Phone [phone] Care Team Providers Care Nitriles Lab Technician Name Role Phone Deb Lanier Unavailable Unavailable [...] 11/22/2016 History Contraception Care Management Active 12/27/2016 [employer] story Dental Arch Length Loss Secondary to [...] White Blood Count 5.7 10 4.0-10.0 10 [facility]: [address] [place] [address] Normal Red Blood Count 4.34 10 4.00-5.40 10 [facility]: [address] [place] [address] Normal Hemoglobin 13.7 g/dL 12.0-15.5 g/dL [facility]: [address] [place] [address] Normal Hematocrit 41.8 % 36.0-47.0 % [facility]: [address] [place] [address] High Mean Corpuscular Volume 96.3 fL 80.0 -96.0 fL [facility]: [address] [place] [address] Normal Mean Corpuscular Hemoglobin 31.6 pg 27.0-33.0 pg [facility]: [address] [place] [address] Normal Mean Corpuscular HGB Conc 32.8 g/dL 32.0-36.5 g/dL [facility]: [address] [place] [address] Normal Red Cell Distribution Width 11.7 % 1 1.5-14.5 % [facility]: [address] [place] [address] Normal Platelet Count, Automated 283 10 150 -450 10 [facility]: [address] [place] [address] Normal Neutrophils % 53.5 % 36.0-66.0 % [facility]: [address] [place] [address] Normal Lymph % 35.7 % 24.0-44.0 % [facility]: [address] [facility] High [place] % 8.9 % 0.0-5.0 % [facility]: [address] [facility] Normal Eos % 0.9 % 0.0-3.0 % [facility]: [address] [facility] Normal Baso % 1.0 % 0.0-1.0 % [facility]: [address] [facility] Normal Immature Granulocyte % 0.0 % 0-3.0 % [facility]: [address] [facility] Normal Nucleated Red Blood Cell % 0.0 % 0- 0 % [facility]: [address] [facility] Normal Neutrophils # 3.1 10 1.5-8.5 10 [facility] [address] [facility] Normal Lymph # 2.0 10 1.5-5.0 10 [facility]: [address] [facility] Normal [place] # 0.5 10 0.0-0.8 10 [facility]: [address] [facility] Normal Eos # 0.1 10 0.0-0.5 10 [facility]: [address] [facility] Normal Baso # 0.1 10 0.0-0.2 10 [facility]: [address] [facility] 03/30/2020 CMP, Serum or Plasma Normal Glucose, Fastin g 86 mg/dL 70-100 mg/dL [facility]: 83 0 [facility] Normal Blood Urea Nitrogen 11 mg/dL 7-18 mg /dL [facility]: [address] [facility] Normal Creatinine for GFR 0.73 mg/dL 0.55-1 .30 mg/dL [facility]: 0 [facility] Normal Glomerular Filtration Rate > 60.0 >6 0 [facility]: [address] [facility] Normal Sodium Level 140 mEq/L 136-145 mEq/L [facility]: [address] [facility] Normal Potassium Serum 4.4 mEq/L 3.5-5.1 mE q/L [facility]: 0 [facility] Normal Chloride Level 107 mEq/L 98-107 mEq/ L [facility]: 0 [facility] Normal Carbon Dioxide Level 29 mEq/L 21-32 mEq/L [facility]: [address] [place] [address] Low Anion Gap 4 mEq/L 8-16 mEq/L [facility]: 0 [facility] Normal Calcium Level 10.0 mg/dL 8.5-10.1 mg /dL [facility]: [address] [place] [address] Normal AST/SGOT 10 U/L 7-37 U/L [facility]: 0 [facility] Normal ALT/SGPT 17 U/L 12-78 U/L [facility]: [address] [place] [address] Normal Alkaline Phosphatase 89 U/L 45-117 U /L [facility]: 0 [facility] Normal Bilirubin,total 0.5 mg/dL 0.2-1.0 mg /dL [facility]: 0 [facility] Normal Total Protein 7.8 gm/dL 6.4-8.2 gm/d L [facility]: 0 [facility] Normal Albumin 4.1 gm/dL 3.2-5.2 gm/dL Noemy l [facility]: [address] [place] [address] Low Albumin/globulin Ratio 1.1 1.2-2. 2 [facility]: 0 [facility] 03/30/2020 TSH, Serum or Plasma Normal Thyroid Stimulating Hormone 0.833 uIU/mL 0.358-3.740 uIU/mL [facility] nter: 0 [facility] 03/30/2020 Prolactin, Serum Normal Prolactin 4.4 NG/mL [facility]: 0 [facility] 03/08/2020 COVID-19 RNA (SARS-CoV-2), QL, chemist instrumentation-PCR, Respiratory Specimen Nasopharyngeal Normal Sars Cov 2 RNA not detected not detected Fi nal [facility] ([employer] [facility]): [address], [place] Past Encounters 05/16/2020 Posttraumatic Stress Disorder; Severe Recurrent Major Depression without Psychotic Features; Generalized Anxiety Disorder; Bipolar Disorder STEVE SchreiberW-R: [address] [facility], [facility] [address], [place] [address], Ph. 05/15/2020 Marley Khan MD: [address] [place] [address], Ph. 05/08/2020 Moderate Recurrent Major Depression; Generalized Anxiety Disorder; Panic Disorder; Bipolar Disorder Karina Conrad CARTOGRAPHIC DRAFTER-R: [address] [facility], [facility] [address], [place] [address], Ph. 05/01/2020 STEVE SchreiberW-R: [address] [facility], [facility] [address], [place] [address], Ph. 04/24/2020 Generalized Anxiety Disorder; Posttraumatic Stress Disorder; Moderate Recurrent Major Depression; Panic Disorder STEVE SchreiberW-R: [address] [facility], [facility] [address], [place] [address], Ph. 04/10/2020 Discharge from [facility]; Mental Health Screening Assessment Deb Lanier PA-C: [address] [place] [address], Ph. 04/05/2020 Generalized Anxiety Disorder; Bipolar Disorder; Panic Disorder Karina Conrad CARTOGRAPHIC DRAFTER-R: [address] [place] [address], Ph. 03/30/2020 Generalized Anxiety Disorder; Moderate Recurrent Major Depression; Posttraumatic Stress Disorder; Panic Disorder Karina Conrad CARTOGRAPHIC DRAFTER-R: [address] [place] [address], Ph. 03/23/2020 Generalized Anxiety Disorder; Bipolar Disorder; Panic Disorder; Posttraumatic Stress Disorder Karina Conrad CARTOGRAPHIC DRAFTER-R: [address] [place] [address], Ph. 03/15/2020 Posttraumatic Stress Disorder; Severe Recurrent Major Depression; Generalized Anxiety Disorder; Panic Disorder STEVE SchreiberW-R: [address] [place] [address], Ph. 03/08/2020 Generalized Acute Body Pains; Loss of Sense of Smell Deb Lanier PA-C: [address] [place] [address], Ph. 03/02/2020 Posttraumatic Stress Disorder; Severe Recurrent Major Depression without Psychotic Features; Generalized Anxiety Disorder STEVE SchreiberW-R: [address] [place] [phone], Ph. 02/23/2020 Generalized Anxiety Disorder; Posttraumatic Stress Disorder; Panic Disorder; Severe Recurrent Major Depression without Psychotic Features; Bipolar Disorder Karina Conrad CARTOGRAPHIC DRAFTER-R: [address] [place] [address], Ph. 02/17/2020 Posttraumatic Stress Disorder; Severe Recurrent Major Depression without Psychotic Features; Generalized Anxiety Disorder; Chlamydial Epididymitis STEVE SchreiberW-R: [address] [place] [address], Ph. 02/10/2020 Bipolar Disorder; Severe Recurrent Major Depression; Generalized Anxiety Disorder; Posttraumatic Stress Disorder Karina Conrad CARTOGRAPHIC DRAFTER-R: [address] [place] [phone], Ph. Social History Tobacco Smoking Status Light [...] 20 Height 63 in 03/08/2020 10:00AM ESTABLISHED [id number] Height Weight BMI Blood Pressure 63 in [...]
--- OUTSIDE RECORDS SUMMARY | 2020-06-07 15:45 | CCD ---
Author Organization Unknown Address [address] [place] [address] Phone [phone] Care Team Providers Care Pointer Helper Name Role Phone Deb Lanier Unavailable Unavailable [...] 11/22/2016 History Contraception Care Management Active 12/27/2016 [employer] story Dental Arch Length Loss Secondary to Dental Caries Active 02/05/2017 History Procedure by Method Active 03/19/2017 History Dental Caries on Smooth Surface Penetrating into Dentin Active 03/13/2018 History Sexual Function Painful Active 03/20/2018 History Endocrine/metabolic Screening Active 06/26/2018 [employer] story Cardiovascular Measurement - Finding Active 06/26/2018 [...] White Blood Count 5.7 10 4.0-10.0 10 [facility]: [address] [place] [address] Normal Red Blood Count 4.34 10 4.00-5.40 10 [facility]: [address] [place] [address] Normal Hemoglobin 13.7 g/dL 12.0-15.5 g/dL [facility]: 0 [facility] Normal Hematocrit 41.8 % 36.0-47.0 % [facility]: [address] [place] [address] High Mean Corpuscular Volume 96.3 fL 80.0 -96.0 fL [facility]: [address] [place] [address] Normal Mean Corpuscular Hemoglobin 31.6 pg 27.0-33.0 pg [facility]: [address] [place] [address] Normal Mean Corpuscular HGB Conc 32.8 g/dL 32.0-36.5 g/dL [facility]: [address] [facility] Normal Red Cell Distribution Width 11.7 % 1 1.5-14.5 % [facility]: 0 [facility] Normal Platelet Count, Automated 283 10 150 -450 10 [facility]: [address] [facility] Normal Neutrophils % 53.5 % 36.0-66.0 % [facility]: [address] [facility] Normal Lymph % 35.7 % 24.0-44.0 % [facility]: [address] [facility] High [place] % 8.9 % 0.0-5.0 % [facility]: [address] [facility] Normal Eos % 0.9 % 0.0-3.0 % [facility]: [address] [facility] Normal Baso % 1.0 % 0.0-1.0 % [facility]: [address] [facility] Normal Immature Granulocyte % 0.0 % 0-3.0 % [facility]: [address] [facility] Normal Nucleated Red Blood Cell % 0.0 % 0- 0 % [facility]: [address] [facility] Normal Neutrophils # 3.1 10 1.5-8.5 10 Noemy [facility]: [address] [facility] Normal Lymph # 2.0 10 1.5-5.0 10 [facility]: [address] [facility] Normal [place] # 0.5 10 0.0-0.8 10 [facility]: [address] [facility] Normal Eos # 0.1 10 0.0-0.5 10 [facility]: [address] [facility] Normal Baso # 0.1 10 0.0-0.2 10 [facility]: [address] [facility] 03/30/2020 CMP, Serum or Plasma Normal Glucose, Fastin g 86 mg/dL 70-100 mg/dL [facility]: 83 0 [facility] Normal Blood Urea Nitrogen 11 mg/dL 7-18 mg /dL [facility]: [address] [facility] Normal Creatinine for GFR 0.73 mg/dL 0.55-1 .30 mg/dL [facility]: 0 [facility] Normal Glomerular Filtration Rate > 60.0 >6 0 [facility]: [address] [facility] Normal Sodium Level 140 mEq/L 136-145 mEq/L [facility]: 0 [facility] Normal Potassium Serum 4.4 mEq/L 3.5-5.1 mE q/L [facility]: 0 [facility] Normal Chloride Level 107 mEq/L 98-107 mEq/ L [facility]: 0 [facility] Normal Carbon Dioxide Level 29 mEq/L 21-32 mEq/L [facility]: [address] [place] [address] Low Anion Gap 4 mEq/L 8-16 mEq/L [facility]: [address] [place] [address] Normal Calcium Level 10.0 mg/dL 8.5-10.1 mg /dL [facility]: [address] [place] [address] Normal AST/SGOT 10 U/L 7-37 U/L [facility]: [address] [place] [address] Normal ALT/SGPT 17 U/L 12-78 U/L [facility]: [address] [place] [address] Normal Alkaline Phosphatase 89 U/L 45-117 U /L [facility]: [address] [place] [address] Normal Bilirubin,total 0.5 mg/dL 0.2-1.0 mg /dL [facility]: [address] [place] [address] Normal Total Protein 7.8 gm/dL 6.4-8.2 gm/d L [facility]: 0 [facility] Normal Albumin 4.1 gm/dL 3.2-5.2 gm/dL Noemy l [facility]: [address] [place] [address] Low Albumin/globulin Ratio 1.1 1.2-2. 2 [facility]: [address] [place] [address] 03/30/2020 TSH, Serum or Plasma Normal Thyroid Stimulating Hormone 0.833 uIU/mL 0.358-3.740 uIU/mL [facility] nter: 0 [facility] 03/30/2020 Prolactin, Serum Normal Prolactin 4.4 NG/mL [facility]: [address] [place] [address] 03/08/2020 COVID-19 RNA (SARS-CoV-2), QL, wallpaper inspector and shipper-PCR, Respiratory Specimen Nasopharyngeal Normal Sars Cov 2 RNA not detected not detected Fi nal [facility] ([employer] [facility]): [address], [place] Past Encounters 05/29/2020 Posttraumatic Stress Disorder; Severe Recurrent Major Depression without Psychotic Features; Generalized Anxiety Disorder; Bipolar Disorder STEVE SchreiberW-R: [address], [place] [address], Ph. 05/22/2020 Posttraumatic Stress Disorder; Severe Recurrent Major Depression without Psychotic Features; Generalized Anxiety Disorder; Bipolar Disorder STEVE SchreiberW-R: [address], [place] [address], Ph. 05/16/2020 Posttraumatic Stress Disorder; Severe Recurrent Major Depression without Psychotic Features; Generalized Anxiety Disorder; Bipolar Disorder STEVE SchreiberW-R: [address], [place] [address], Ph. 05/15/2020 Marley Khan MD: [address] [place] [address], Ph. 05/08/2020 Moderate Recurrent Major Depression; Generalized Anxiety Disorder; Panic Disorder; Bipolar Disorder STEVE SchreiberW-R: [address], [place] [address], Ph. 05/01/2020 STEVE SchreiberW-R: [address], [place] [address], Ph. 04/24/2020 Generalized Anxiety Disorder; Posttraumatic Stress Disorder; Moderate Recurrent Major Depression; Panic Disorder STEVE SchreiberW-R: [address], [place] [address], Ph. 04/10/2020 Discharge from [facility]; Mental Health Screening Assessment Deb Lanier PA-C: [address] [place] [address], Ph. 04/05/2020 Generalized Anxiety Disorder; Bipolar Disorder; Panic Disorder STEVE SchreiberW-R: [address] [place] [address], Ph. 03/30/2020 Generalized Anxiety Disorder; Moderate Recurrent Major Depression; Posttraumatic Stress Disorder; Panic Disorder STEVE SchreiberW-R: [address] [place] [address], Ph. 03/23/2020 Generalized Anxiety Disorder; Bipolar Disorder; Panic Disorder; Posttraumatic Stress Disorder Karina Conrad DOT ETCHER APPRENTICE-R: [address] [place] [address], Ph. 03/15/2020 Posttraumatic Stress Disorder; Severe Recurrent Major Depression; Generalized Anxiety Disorder; Panic Disorder Karina Conrad DOT ETCHER APPRENTICE-R: [address] [place] [address], Ph. 03/08/2020 Generalized Acute Body Pains; Loss of Sense of Smell Deb Lanier PA-C: [address] [place] [address], Ph. 03/02/2020 Posttraumatic Stress Disorder; Severe Recurrent Major Depression without Psychotic Features; Generalized Anxiety Disorder STEVE SchreiberW-R: [address] [place] [address], Ph. 02/23/2020 Generalized Anxiety Disorder; Posttraumatic Stress Disorder; Panic Disorder; Severe Recurrent Major Depression without Psychotic Features; Bipolar Disorder Karina Conrad DOT ETCHER APPRENTICE-R: [address] [place] [address], Ph. 02/17/2020 Posttraumatic Stress Disorder; Severe Recurrent Major Depression without Psychotic Features; Generalized Anxiety Disorder; Chlamydial Epididymitis STEVE SchreiberW-R: [address] [place] [address], Ph. 02/10/2020 Bipolar Disorder; Severe Recurrent Major Depression; Generalized Anxiety Disorder; Posttraumatic Stress Disorder Karina Conrad, [facility]: [address] [place] [address], Ph. Social History Tobacco Smoking Status Light [...] 20 Height 63 in 03/08/2020 10:00AM ESTABLISHED [id number] Height Weight BMI Blood Pressure 63 in [...]
--- OUTSIDE RECORDS SUMMARY | 2020-06-07 15:45 | CCD ---
Author Organization Unknown Address [address] [place] [address] Phone [phone] Care Team Providers Care Correctional Officer Chief Name Role Phone Deb Lanier Unavailable Unavailable Allergies Code Code System Name Reaction Severity Status Onset NKDA Medications Name Status Start Date Stop Date aripiprazole 10 mg tablet Completed 2019 aripiprazole 15 mg tablet Active Not av ailable aripiprazole 5 mg tablet Completed 020 Cymbalta 60 mg capsule,delayed release Take 1 capsule every day by oral route in the morning. Active Not available gabapentin 600 mg tablet Completed 021 quetiapine 300 mg tablet Active Not jeffrey ilable sertraline 100 mg tablet Completed 021 sertraline 50 mg tablet Completed 03/08/20 20 trazodone 150 mg tablet Take 1 tablet every day by oral route at dinner for 30 days. Active Not available trazodone 50 mg tablet [...] 11/22/2016 History Contraception Care Management Active 12/27/2016 Hi story Dental Arch Length Loss Secondary to [...] Finding of Knee Region Active 06/01/2019 History Procedures Notes: Mass removed from Breast 2013, wi sdom teeth Results Lab Results Date Name Specimen Result Interpretation Description Value Range Status Address 03/30/2020 CBC W/ Auto Diff Normal White Blood Count 5.7 10 4.0-10.0 10 [facility]: [address] [place] [address] Normal Red Blood Count 4.34 10 4.00-5.40 10 [facility]: [address] [place] [address] Normal Hemoglobin 13.7 g/dL 12.0-15.5 g/dL [facility]: 0 [facility] Normal Hematocrit 41.8 % 36.0-47.0 % [facility]: [address] [place] [address] High Mean Corpuscular Volume 96.3 fL 80.0 -96.0 fL [facility]: [address] [place] [address] Normal Mean Corpuscular Hemoglobin 31.6 pg 27.0-33.0 pg [facility]: [address] [place] [address] Normal Mean Corpuscular HGB Conc 32.8 g/dL 32.0-36.5 g/dL [facility]: 0 [facility] Normal Red Cell Distribution Width 11.7 % 1 1.5-14.5 % [facility]: 830 [facility] Normal Platelet Count, Automated 283 10 150 -450 10 [facility]: 0 [facility] Normal Neutrophils % 53.5 % 36.0-66.0 % [facility]: 830 [facility] Normal Lymph % 35.7 % 24.0-44.0 % [facility]: 830 [facility] High Humphreys % 8.9 % 0.0-5.0 % [facility]: 830 [facility] Normal Eos % 0.9 % 0.0-3.0 % [facility]: 830 [facility] Normal Baso % 1.0 % 0.0-1.0 % [facility]: 830 [facility] Normal Immature Granulocyte % 0.0 % 0-3.0 % [facility]: [address] [place] [address] Normal Nucleated Red Blood Cell % 0.0 % 0- 0 % [facility]: 830 [facility] Normal Neutrophils # 3.1 10 1.5-8.5 10 [facility] 0 [facility] Normal Lymph # 2.0 10 1.5-5.0 10 [facility]: 0 [facility] Normal Humphreys # 0.5 10 0.0-0.8 10 [facility]: [address] [facility] Normal Eos # 0.1 10 0.0-0.5 10 [facility]: 0 [facility] Normal Baso # 0.1 10 0.0-0.2 10 [facility]: 0 [facility] 03/30/2020 CMP, Serum or Plasma Normal Glucose, Fastin g 86 mg/dL 70-100 mg/dL [facility]: 83 0 [facility] Normal Blood Urea Nitrogen 11 mg/dL 7-18 mg /dL [facility]: 0 [facility] Normal Creatinine for GFR 0.73 mg/dL 0.55-1 .30 mg/dL [facility]: 0 [facility] Normal Glomerular Filtration Rate > 60.0 >6 0 [facility]: 0 [facility] Normal Sodium Level 140 mEq/L 136-145 mEq/L [facility]: 0 [facility] Normal Potassium Serum 4.4 mEq/L 3.5-5.1 mE q/L [facility]: 830 [facility] Normal Chloride Level 107 mEq/L 98-107 mEq/ L [facility]: [address] [place] [address] Normal Carbon Dioxide Level 29 mEq/L 21-32 mEq/L [facility]: [address] [place] [address] Low Anion Gap 4 mEq/L 8-16 mEq/L [facility]: [address] [place] [address] Normal Calcium Level 10.0 mg/dL 8.5-10.1 mg /dL [facility]: [address] [place] [address] Normal AST/SGOT 10 U/L 7-37 U/L [facility]: [address] [place] [address] Normal ALT/SGPT 17 U/L 12-78 U/L [facility]: [address] [place] [address] Normal Alkaline Phosphatase 89 U/L 45-117 U /L [facility]: [address] [place] [address] Normal Bilirubin,total 0.5 mg/dL 0.2-1.0 mg /dL [facility]: [address] [place] [address] Normal Total Protein 7.8 gm/dL 6.4-8.2 gm/d L [facility]: [address] [place] [address] Normal Albumin 4.1 gm/dL 3.2-5.2 gm/dL [facility]: [address] [place] [address] Low Albumin/globulin Ratio 1.1 1.2-2. 2 [facility]: [address] [place] [address] 03/30/2020 TSH, Serum or Plasma Normal Thyroid Stimulating Hormone 0.833 uIU/mL 0.358-3.740 uIU/mL [facility]: [address] [place] [address] 03/30/2020 Prolactin, Serum Normal Prolactin 4.4 NG/mL [facility]: [address] [place] [address] 03/08/2020 COVID-19 RNA (SARS-CoV-2), QL, station baggage porter-PCR, Respiratory Specimen Nasopharyngeal Normal Sars Cov 2 RNA not detected not detected Fi nal Associated Clinical Labs ([facility]): [address] [place] Past Encounters 05/15/2020 Mixed Anxiety and Depressive Disorder; Chronic Post-traumatic Stress Disorder Marley Khan MD: [address] [place] [address], Ph. 05/08/2020 Moderate Recurrent Major Depression; Generalized Anxiety Disorder; Panic Disorder; Bipolar Disorder Karina Conrad, MAILROOM PERSONNEL-R: [address], [place] [address], Ph. 05/01/2020 Karina Conrad, MAILROOM PERSONNEL-R: [address], [place] [address], Ph. 04/24/2020 Generalized Anxiety Disorder; Posttraumatic Stress Disorder; Moderate Recurrent Major Depression; Panic Disorder Karina Conrad, MAILROOM PERSONNEL-R: [address] [facility], [facility] [address], [place] [address], Ph. 04/10/[address] [facility]; Mental Health Screening Assessment Deb Lanier PA-C: [address] [place] [address], Ph. 04/05/2020 Generalized Anxiety Disorder; Bipolar Disorder; Panic Disorder Karina Conrad, MAILROOM PERSONNEL-R: [address] [place] [address], Ph. 03/30/2020 Generalized Anxiety Disorder; Moderate Recurrent Major Depression; Posttraumatic Stress Disorder; Panic Disorder Karina Conrad, MAILROOM PERSONNEL-R: [address] [place] [address], Ph. 03/23/2020 Generalized Anxiety Disorder; Bipolar Disorder; Panic Disorder; Posttraumatic Stress Disorder Karina Conrad, MAILROOM PERSONNEL-R: [address] [place] [address], Ph. 03/15/2020 Posttraumatic Stress Disorder; Severe Recurrent Major Depression; Generalized Anxiety Disorder; Panic Disorder Karina Conrad, MAILROOM PERSONNEL-R: [address] [place] [phone], Ph. 03/08/2020 Generalized Acute Body Pains; Loss of Sense of Smell Deb Lanier PA-C: [address] [place] [phone], Ph. 03/02/2020 Posttraumatic Stress Disorder; Severe Recurrent Major Depression without Psychotic Features; Generalized Anxiety Disorder Karina Conrad MAILROOM PERSONNEL-R: [address] [place] [phone], Ph. 02/23/2020 Generalized Anxiety Disorder; Posttraumatic Stress Disorder; Panic Disorder; Severe Recurrent Major Depression without Psychotic Features; Bipolar Disorder Karina Conrad MAILROOM PERSONNEL-R: [address] [place] [phone], Ph. 02/17/2020 Posttraumatic Stress Disorder; Severe Recurrent Major Depression without Psychotic Features; Generalized Anxiety Disorder; Chlamydial Epididymitis Karina Conrad MAILROOM PERSONNEL-R: [address] [place] [phone], Ph. 02/10/2020 Bipolar Disorder; Severe Recurrent Major Depression; Generalized Anxiety Disorder; Posttraumatic Stress Disorder Karina Conrad MAILROOM PERSONNEL-R: [address] [place] [phone], Ph. Social History Tobacco Smoking Status Light Tobacco Smoker (/ PPD) Vaccine List None recorded. Plan of Care Reminders Provider Appointments None recorded. Lab None recorded. Referral None recorded. Procedures None recorded. Surgeries None recorded. Imaging None recorded. Vitals 05/15/2020 01:30PM TELEPSYCH 30 Height Weight BMI 63 in 134 lbs 6.4 oz 23.8 kg/m2 04/10/2020 01:40PM TELEHEALTH 20 Height 63 in 03/08/2020 10:00AM ESTABLISHED [id number] Height Weight BMI Blood Pressure 63 in 125 lbs 8 oz 22.2 kg/m2 131/85 mm[Hg] 11/18/2019 Height Weight Blood Pressure 63 in 130 lbs 2.08 oz 99/64 mm[Hg] 11/08/2019 Height Weight 63 in 131 lbs 8 oz 09/13/2019 Height Weight 63 in 131 lbs 08/09/2019 Height Weight 63 in 132 lbs 4 oz 06/21/2019 Height Weight 63 in 124 lbs 2.08 oz 06/03/2019 Weight 120 lbs 6.08 oz 06/01/2019 Height Weight Blood Pressure 63 in 118 lbs 119/76 mm[Hg] 05/03/2019 Height Weight 63 in 114 lbs 04/05/2019 Height Weight 63 in 115 lbs 03/18/2019 Height Weight Blood Pressure 63 in 115 lbs 111/74 mm[Hg] 01/18/2019 Height Weight 63 in 120 lbs 4 oz 01/04/2019 Height Weight 63 in 117 lbs 2.08 oz 12/24/2018 Height Weight 63 in 119 lbs 2.08 oz 12/04/2018 Height Weight Blood Pressure 63 in 118 lbs 6.08 oz 101/58 mm[Hg] 11/23/2018 Blood Pressure 110/70 mm[Hg] 10/23/2018 Height Weight Blood Pressure 63 in 122 lbs 4 oz 105/69 mm[Hg] 07/24/2018 Height Weight Blood Pressure 63 in 133 lbs 2.08 oz 98/57 mm[Hg] 06/26/2018 Height Weight Blood Pressure 63 in 134 lbs 112/73 mm[Hg]
--- OUTSIDE RECORDS SUMMARY | 2020-06-07 15:45 | CCD ---
Author Organization Unknown Address [address] [place] [address] Phone [phone] Care Team Providers Care Steno Pool Supervisor Name Role Phone Deb Lanier Unavailable Unavailable [...] Not jeffrey ilable sertraline 100 mg tablet Take 1 tablet every day by oral route as directed. Active Not available sertraline 50 mg tablet [...] 5.7 10 4.0-10.0 10 [facility]: [address] [place] [address] Normal Red Blood Count 4.34 10 4.00-5.40 10 [facility]: [address] [place] [address] Normal Hemoglobin 13.7 g/dL 12.0-15.5 g/dL [facility]: [address] [place] [address] Normal Hematocrit 41.8 % 36.0-47.0 % [facility]: [address] [place] [address] High Mean Corpuscular Volume 96.3 fL 80.0 -96.0 fL [facility]: [address] [place] [address] Normal Mean Corpuscular Hemoglobin 31.6 pg 27.0-33.0 pg [facility]: [address] [place] [address] Normal Mean Corpuscular HGB Conc 32.8 g/dL 32.0-36.5 g/dL [facility]: 0 [facility] Normal Red Cell Distribution Width 11.7 % 1 1.5-14.5 % [facility]: 0 [facility] Normal Platelet Count, Automated 283 10 150 -450 10 [facility]: 0 [facility] Normal Neutrophils % 53.5 % 36.0-66.0 % [facility]: 830 [facility] Normal Lymph % 35.7 % 24.0-44.0 % [facility]: 830 [facility] High Daniels % 8.9 % 0.0-5.0 % [facility]: 830 [facility] Normal Eos % 0.9 % 0.0-3.0 % [facility]: 830 [facility] Normal Baso % 1.0 % 0.0-1.0 % [facility]: 830 [facility] Normal Immature Granulocyte % 0.0 % 0-3.0 % [facility]: [address] [place] [address] Normal Nucleated Red Blood Cell % 0.0 % 0- 0 % [facility]: 830 [facility] Normal Neutrophils # 3.1 10 1.5-8.5 10 [facility]: 0 [facility] Normal Lymph # 2.0 10 1.5-5.0 10 [facility]: 0 [facility] Normal Daniels # 0.5 10 0.0-0.8 10 [facility]: 8[address] [facility] Normal Eos # 0.1 10 0.0-0.5 10 [facility]: 830 [facility] Normal Baso # 0.1 10 0.0-0.2 10 [facility]: 830 [facility] 03/30/2020 CMP, Serum or Plasma Normal Glucose, Fastin g 86 mg/dL 70-100 mg/dL [facility]: 83 0 [facility] Normal Blood Urea Nitrogen 11 mg/dL 7-18 mg /dL [facility]: 0 [facility] Normal Creatinine for GFR 0.73 mg/dL 0.55-1 .30 mg/dL [facility]: 0 [facility] Normal Glomerular Filtration Rate > 60.0 >6 0 [facility]: 8[address] [facility] Normal Sodium Level 140 mEq/L 136-145 mEq/L [facility]: 0 [facility] Normal Potassium Serum 4.4 mEq/L 3.5-5.1 mE q/L [facility]: 830 [facility] Normal Chloride Level 107 mEq/L 98-107 mEq/ L [facility]: 0 [facility] Normal Carbon Dioxide Level 29 mEq/L 21-32 mEq/L [facility]: 0 [facility] Low Anion Gap 4 mEq/L 8-16 mEq/L [facility]: 8[address] [facility] Normal Calcium Level 10.0 mg/dL 8.5-10.1 mg /dL [facility]: 8[address] [facility] Normal AST/SGOT 10 U/L 7-37 U/L [facility]: 0 [facility] Normal ALT/SGPT 17 U/L 12-78 U/L [facility]: [address] [facility] Normal Alkaline Phosphatase 89 U/L 45-117 U /L [facility]: 0 [facility] Normal Bilirubin,total 0.5 mg/dL 0.2-1.0 mg /dL [facility]: 8[address] [facility] Normal Total Protein 7.8 gm/dL 6.4-8.2 gm/d L [facility]: 0 [facility] Normal Albumin 4.1 gm/dL 3.2-5.2 gm/dL [facility]: 0 [facility] Low Albumin/globulin Ratio 1.1 1.2-2. 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 05/08/2020 Moderate Recurrent Major Depression; Generalized Anxiety Disorder; Panic Disorder; Bipolar Disorder Karina Conrad, FIRE CREW WORKER-R: [address], [place] [address], Ph. 05/01/2020 Karina Conrad, FIRE CREW WORKER-R: [address], [place] [address], Ph. 04/24/2020 Generalized Anxiety Disorder; Posttraumatic Stress Disorder; Moderate Recurrent Major Depression; Panic Disorder Karina Conrad FIRE CREW WORKER-R: [address] [facility], [facility] [address], [place] [address], Ph. 04/10/2020 Discharge from [facility]; Mental Health Screening Assessment Deb Lanier PA-C: [address] [place] [address], Ph. 04/05/2020 Generalized Anxiety Disorder; Bipolar Disorder; Panic Disorder STEVE SchreiberW-R: [address] [place] [address], Ph. 03/30/2020 Generalized Anxiety Disorder; Moderate Recurrent Major Depression; Posttraumatic Stress Disorder; Panic Disorder Karina Conrad, FIRE CREW WORKER-R: [address] [place] [address], Ph. 03/23/2020 Generalized Anxiety Disorder; Bipolar Disorder; Panic Disorder; Posttraumatic Stress Disorder Karina Conrad FIRE CREW WORKER-R: [address] [place] [address], Ph. 03/15/2020 Posttraumatic Stress Disorder; Severe Recurrent Major Depression; Generalized Anxiety Disorder; Panic Disorder Karina Conrad FIRE CREW WORKER-R: [address] [place] [address], Ph. 03/08/2020 Generalized Acute Body Pains; Loss of Sense of Smell Deb Lanier PA-C: [address] [place] [phone], Ph. 03/02/2020 Posttraumatic Stress Disorder; Severe Recurrent Major Depression without Psychotic Features; Generalized Anxiety Disorder Karina Conrad [facility]-R: [address] [place] [phone], Ph. 02/23/2020 Generalized Anxiety Disorder; Posttraumatic Stress Disorder; Panic Disorder; Severe Recurrent Major Depression without Psychotic Features; Bipolar Disorder Karina Conrad [facility]-R: [address] [place] [phone], Ph. 02/17/2020 Posttraumatic Stress Disorder; Severe Recurrent Major Depression without Psychotic Features; Generalized Anxiety Disorder; Chlamydial Epididymitis Karina Conrad [facility]-R: [address] [place] [phone], Ph. 02/10/2020 Bipolar Disorder; Severe Recurrent Major Depression; Generalized Anxiety Disorder; Posttraumatic Stress Disorder Karina Conrad [facility]-R: [address] [place] [phone], Ph. Social History Tobacco Smoking Status Light Tobacco Smoker (1/4 PPD) Vaccine List None recorded. Plan of Care Reminders Provider Appointments None recorded. Lab None recorded. Referral None recorded. Procedures None recorded. Surgeries None recorded. Imaging None recorded. Vitals 05/15/2020 01:30PM TELEPSYCH 30 Height Weight BMI 63 in 134 lbs 6.4 oz 23.8 kg/m2 04/10/2020 01:40PM TELEHEALTH 20 Height 63 in 03/08/2020 10:00AM ESTABLISHED [id number] Height Weight BMI Blood Pressure 63 in [...]
--- OUTSIDE RECORDS SUMMARY | 2020-06-07 15:46 | CCD ---
Author Organization Unknown Address [address] [place] [address] Phone [phone] Care Team Providers Care Food Counter Worker Name Role Phone Deb Lanier Unavailable Unavailable Allergies Code Code System Name Reaction Severity Status Onset NKDA Medications Name Status Start Date Stop Date aripiprazole 10 mg tablet Completed 2019 aripiprazole 15 mg tablet Active Not av ailable aripiprazole 5 mg tablet Completed 020 gabapentin 600 mg tablet Take 1 tablet every day by oral route at bedtime for 30 days. Active Not available quetiapine 300 mg tablet Active Not jeffrey ilable sertraline 100 mg tablet Active Not jeffrey ilable sertraline 50 mg tablet Completed 03/08/20 20 trazodone 50 mg tablet Active Not avail able Problems Name Status Onset Date Source Headache [...] 11/22/2016 History Contraception Care Management Active 12/27/2016 [facility] Dental Arch Length Loss Secondary to Dental Caries Active 02/05/2017 History Procedure by Method Active 03/19/2017 History Dental Caries on Smooth Surface Penetrating into Dentin Active 03/13/2018 History Sexual Function Painful Active 03/20/2018 History Endocrine/metabolic Screening Active 06/26/2018 [facility] Cardiovascular Measurement - Finding Active 06/26/2018 History [...] Result Interpretation Description Value Range Status Address 03/08/2020 COVID-19 RNA (SARS-CoV-2), QL, electrical solderer-PCR, Respiratory Specimen Nasopharyngeal Normal Sars Cov 2 RNA not detected not detected Fi nal Associated [facility] ([facility]): [address]counters 03/15/2020 Posttraumatic Stress Disorder; Severe Recurrent Major Depression; Generalized Anxiety Disorder; Panic Disorder STEVE SchreiberW-R: [address] [place] [address], Ph. 03/08/2020 Generalized Acute Body Pains; Loss of Sense of Smell Deb Lanier PA-C: [address] [place] [address], Ph. 03/02/2020 Posttraumatic Stress Disorder; Severe Recurrent Major Depression without Psychotic Features; Generalized Anxiety Disorder STEVE SchreiberW-R: [address] [place] [address], Ph. 02/23/2020 Generalized Anxiety Disorder; Posttraumatic Stress Disorder; Panic Disorder; Severe Recurrent Major Depression without Psychotic Features; Bipolar Disorder STEVE SchreiberW-R: [address] [place] [address], Ph. 02/17/2020 Posttraumatic Stress Disorder; Severe Recurrent Major Depression without Psychotic Features; Generalized Anxiety Disorder; Chlamydial Epididymitis STEVE SchreiberW-R: [address] [place] [address], Ph. 02/10/2020 Bipolar Disorder; Severe Recurrent Major Depression; Generalized Anxiety Disorder; Posttraumatic Stress Disorder STEVE SchreiberW-R: [address] [place] [address], Ph. Social History Tobacco Smoking Status Former Smoker Vaccine List None recorded. Plan of Care Reminders Provider Appointments None recorded. Lab None recorded. Referral None recorded. Procedures None recorded. Surgeries None recorded. Imaging None recorded. Vitals 03/08/2020 10:00AM ESTABLISHED [id number] Height Weight BMI Blood Pressure 63 in [...]
--- OUTSIDE RECORDS SUMMARY | 2020-06-07 15:46 | CCD ---
Author Organization Unknown Address [address] [place] [address] Phone [phone] Care Team Providers Care Finding Fastener Name Role Phone Deb Lanier Unavailable Unavailable Allergies Code Code System Name Reaction Severity Status Onset NKDA Medications Name Status Start Date Stop Date aripiprazole 10 mg tablet Completed 2019 aripiprazole 15 mg tablet Active Not av ailable aripiprazole 5 mg tablet Completed 020 gabapentin 600 mg tablet Active Not jeffrey ilable quetiapine 300 mg tablet Active Not jeffrey [...] White Blood Count 5.7 10 4.0-10.0 10 [facility]: [address] [place] [address] Normal Red Blood Count 4.34 10 4.00-5.40 10 [facility]: [address] [place] [address] Normal Hemoglobin 13.7 g/dL 12.0-15.5 g/dL [facility]: [address] [place] [address] Normal Hematocrit 41.8 % 36.0-47.0 % [facility]: [address] [place] [address] High Mean Corpuscular Volume 96.3 fL 80.0 -96.0 fL [facility]: [address] [place] [address] Normal Mean Corpuscular Hemoglobin 31.6 pg 27.0-33.0 pg [facility]: [address] [place] [address] Normal Mean Corpuscular HGB Conc 32.8 g/dL 32.0-36.5 g/dL [facility]: [address] [place] [address] Normal Red Cell Distribution Width 11.7 % 1 1.5-14.5 % [facility]: [address] [place] [address] Normal Platelet Count, Automated 283 10 150 -450 10 [facility]: 0 [facility] Normal Neutrophils % 53.5 % 36.0-66.0 % [facility]: 0 [facility] Normal Lymph % 35.7 % 24.0-44.0 % [facility]: [address] [facility] High Tolland % 8.9 % 0.0-5.0 % [facility]: [address] [facility] Normal Eos % 0.9 % 0.0-3.0 % [facility]: [address] [facility] Normal Baso % 1.0 % 0.0-1.0 % [facility]: [address] [facility] Normal Immature Granulocyte % 0.0 % 0-3.0 % [facility]: 0 [facility] Normal Nucleated Red Blood Cell % 0.0 % 0- 0 % [facility]: [address] [facility] Normal Neutrophils # 3.1 10 1.5-8.5 10 [facility] [address] [facility] Normal Lymph # 2.0 10 1.5-5.0 10 [facility]: [address] [facility] Normal [place] # 0.5 10 0.0-0.8 10 [facility]: 0 [facility] Normal Eos # 0.1 10 0.0-0.5 10 [facility]: [address] [facility] Normal Baso # 0.1 10 0.0-0.2 10 [facility]: [address] [facility] 03/30/2020 CMP, Serum or Plasma Normal Glucose, Fastin g 86 mg/dL 70-100 mg/dL [facility]: [address] [facility] Normal Blood Urea Nitrogen 11 mg/dL 7-18 mg /dL [facility]: 0 [facility] Normal Creatinine for GFR 0.73 mg/dL 0.55-1 .30 mg/dL [facility]: 0 [facility] Normal Glomerular Filtration Rate > 60.0 >6 0 [facility]: [address] [facility] Normal Sodium Level 140 mEq/L 136-145 mEq/L [facility]: 0 [facility] Normal Potassium Serum 4.4 mEq/L 3.5-5.1 mE q/L [facility]: [address] [facility] Normal Chloride Level 107 mEq/L 98-107 mEq/ L [facility]: 0 [facility] Normal Carbon Dioxide Level 29 mEq/L 21-32 mEq/L [facility]: [address] [facility] Low Anion Gap 4 mEq/L 8-16 mEq/L [facility]: 0 [facility] Normal Calcium Level 10.0 mg/dL 8.5-10.1 mg /dL [facility]: [address] [facility] Normal AST/SGOT 10 U/L 7-37 U/L [facility]: [address] [facility] Normal ALT/SGPT 17 U/L 12-78 U/L [facility]: [address] [facility] Normal Alkaline Phosphatase 89 U/L 45-117 U /L [facility]: [address] [place] [address] Normal Bilirubin,total 0.5 mg/dL 0.2-1.0 mg /dL [facility]: [address] [place] [address] Normal Total Protein 7.8 gm/dL 6.4-8.2 gm/d L [facility]: 0 [facility] Normal Albumin 4.1 gm/dL 3.2-5.2 gm/dL [facility]: [address] [place] [address] Low Albumin/globulin Ratio 1.1 1.2-2. 2 [facility]: 0 [facility] 03/30/2020 TSH, Serum or Plasma Normal Thyroid Stimulating Hormone 0.833 uIU/mL 0.358-3.740 uIU/mL [facility] nter: 0 [facility] 03/30/2020 Prolactin, Serum Normal Prolactin 4.4 NG/mL [facility]: 0 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 04/10/[address] [facility]; Mental Health Screening Assessment Deb Lanier PA-C: [address] [place] [address], Ph. 04/05/2020 Generalized Anxiety Disorder; Bipolar Disorder; Panic Disorder Karina Conrad, LICENSED PRACTICAL VOCATIONAL NURSE-R: [address] [place] [address], Ph. 03/30/2020 Generalized Anxiety Disorder; Moderate Recurrent Major Depression; Posttraumatic Stress Disorder; Panic Disorder Karina Conrad, LICENSED PRACTICAL VOCATIONAL NURSE-R: [address] [place] [address], Ph. 03/23/2020 Generalized Anxiety Disorder; Bipolar Disorder; Panic Disorder; Posttraumatic Stress Disorder Karina Conrad, LICENSED PRACTICAL VOCATIONAL NURSE-R: [address] [place] [address], Ph. 03/15/2020 Posttraumatic Stress Disorder; Severe Recurrent Major Depression; Generalized Anxiety Disorder; Panic Disorder Karina Conrad, LICENSED PRACTICAL VOCATIONAL NURSE-R: [address] [place] [address], Ph. 03/08/2020 Generalized Acute Body Pains; Loss of Sense of Smell Deb Lanier PA-C: [address] [place] [address], Ph. 03/02/2020 Posttraumatic Stress Disorder; Severe Recurrent Major Depression without Psychotic Features; Generalized Anxiety Disorder Karina Conrad, LICENSED PRACTICAL VOCATIONAL NURSE-R: [address] [place] [address], Ph. 02/23/2020 Generalized Anxiety Disorder; Posttraumatic Stress Disorder; Panic Disorder; Severe Recurrent Major Depression without Psychotic Features; Bipolar Disorder Karina Conrad, LICENSED PRACTICAL VOCATIONAL NURSE-R: [address] [place] [address], Ph. 02/17/2020 Posttraumatic Stress Disorder; Severe Recurrent Major Depression without Psychotic Features; Generalized Anxiety Disorder; Chlamydial Epididymitis Karina Conrad, LICENSED PRACTICAL VOCATIONAL NURSE-R: [address] [place] [address], Ph. 02/10/2020 Bipolar Disorder; Severe Recurrent Major Depression; Generalized Anxiety Disorder; Posttraumatic Stress Disorder Karina Conrad LICENSED PRACTICAL VOCATIONAL NURSE-R: [address] [place] [address], Ph. Social History Tobacco Smoking Status Light Tobacco Smoker (04/17 PPD) Vaccine List None recorded. Plan of Care Reminders Provider Appointments None recorded. Lab None recorded. Referral None recorded. Procedures None recorded. Surgeries None recorded. Imaging None recorded. Vitals 04/10/2020 01:40PM TELEHEALTH 20 Height 63 in 03/08/2020 10:00AM ESTABLISHED [id number] Height Weight BMI Blood Pressure 63 in [...]
--- OUTSIDE RECORDS SUMMARY | 2020-06-07 15:46 | CCD ---
Author Organization Unknown Address [address] [place] [address] Phone [phone] Care Team Providers Care Manager Inventory Name Role Phone Deb Lanier Unavailable Unavailable Allergies Code Code System Name Reaction Severity Status Onset NKDA Medications Name Status Start Date Stop Date aripiprazole 10 mg tablet Completed 2019 aripiprazole 15 mg tablet Active Not av ailable aripiprazole 5 mg tablet Completed 020 gabapentin 600 mg tablet Active Not jeffrey ilable quetiapine 300 mg tablet TAKE ONE TABLET BY MOUTH AT BEDTIME Active Not available sertraline 100 mg tablet TAKE ONE TABLET BY MOUTH EVERY DAY Active Not available sertraline 50 mg tablet Completed 03/08/20 20 trazodone 50 mg tablet TAKE ONE TABLET BY MOUTH AT BEDTIME Active Not available Problems Name Status Onset Date Source Headache [...] 11/22/2016 History Contraception Care Management Active 12/27/2016 ReferralCandy Dental Arch Length Loss Secondary to Dental Caries Active 02/05/2017 History Procedure by Method Active 03/19/2017 History Dental Caries on Smooth Surface Penetrating into Dentin Active 03/13/2018 History Sexual Function Painful Active 03/20/2018 History Endocrine/metabolic Screening Active 06/26/2018 [employer] story Cardiovascular Measurement - Finding Active 06/26/2018 [...] removed from Breast 2012, wi sdom teeth Results Lab Results Date Name Specimen Result Interpretation Description Value Range Status Address 03/30/2020 CBC W/ Auto Diff Normal White Blood Count 5.7 10 4.0-10.0 10 [facility]: [address] [place] [address] Normal Red Blood Count 4.34 10 4.00-5.40 10 [facility]: [address] [place] [address] Normal Hemoglobin 13.7 g/dL 12.0-15.5 g/dL [facility]: [address] [place] [address] Normal Hematocrit 41.8 % 36.0-47.0 % [facility]: [address] [place] [address] High Mean Corpuscular Volume 96.3 fL 80.0 -96.0 fL [facility]: [address] [place] [address] Normal Mean Corpuscular Hemoglobin 31.6 pg 27.0-33.0 pg [facility]: [address] [place] [address] Normal Mean Corpuscular HGB Conc 32.8 g/dL 32.0-36.5 g/dL [facility]: [address] [place] [address] Normal Red Cell Distribution Width 11.7 % 1 1.5-14.5 % [facility]: 0 [facility] Normal Platelet Count, Automated 283 10 150 -450 10 [facility]: 0 [facility] Normal Neutrophils % 53.5 % 36.0-66.0 % [facility]: [address] [facility] Normal Lymph % 35.7 % 24.0-44.0 % [facility]: [address] [facility] High [place] % 8.9 % 0.0-5.0 % [facility]: [address] [facility] Normal Eos % 0.9 % 0.0-3.0 % [facility]: [address] [facility] Normal Baso % 1.0 % 0.0-1.0 % [facility]: [address] [facility] Normal Immature Granulocyte % 0.0 % 0-3.0 % [facility]: [address] [facility] Normal Nucleated Red Blood Cell % 0.0 % 0- 0 % [facility]: [address] [facility] Normal Neutrophils # 3.1 10 1.5-8.5 10 [facility]: [address] [facility] Normal Lymph # 2.0 10 1.5-5.0 10 [facility]: [address] [facility] Normal Lamar # 0.5 10 0.0-0.8 10 [facility]: [address] [facility] Normal Eos # 0.1 10 0.0-0.5 10 [facility]: [address] [facility] Normal Baso # 0.1 10 0.0-0.2 10 [facility]: [address] [facility] 03/30/2020 CMP, Serum or Plasma Normal Glucose, Fastin g 86 mg/dL 70-100 mg/dL [facility]: 83 [address] [facility] Normal Blood Urea Nitrogen 11 mg/dL 7-18 mg /dL [facility]: [address] [facility] Normal Creatinine for GFR 0.73 mg/dL 0.55-1 .30 mg/dL [facility]: [address] [facility] Normal Glomerular Filtration Rate > 60.0 >6 0 [facility]: [address] [facility] Normal Sodium Level 140 mEq/L 136-145 mEq/L [facility]: 0 [facility] Normal Potassium Serum 4.4 mEq/L 3.5-5.1 mE q/L [facility]: [address] [facility] Normal Chloride Level 107 mEq/L 98-107 mEq/ L [facility]: [address] [facility] Normal Carbon Dioxide Level 29 mEq/L 21-32 mEq/L [facility]: [address] [facility] Low Anion Gap 4 mEq/L 8-16 mEq/L [facility]: 0 [facility] Normal Calcium Level 10.0 mg/dL 8.5-10.1 mg /dL [facility]: [address] [facility] Normal AST/SGOT 10 U/L 7-37 U/L [facility]: [address] [facility] Normal ALT/SGPT 17 U/L 12-78 U/L [facility]: [address] [facility] Normal Alkaline Phosphatase 89 U/L 45-117 U /L [facility]: [address] [place] [address] Normal Bilirubin,total 0.5 mg/dL 0.2-1.0 mg /dL [facility]: 0 [facility] Normal Total Protein 7.8 gm/dL 6.4-8.2 gm/d L [facility]: [address] [facility] Normal Albumin 4.1 gm/dL 3.2-5.2 gm/dL [facility]: 0 [facility] Low Albumin/globulin Ratio 1.1 1.2-2. 2 [facility]: 0 [facility] 03/30/2020 TSH, Serum or Plasma Normal Thyroid Stimulating Hormone 0.833 uIU/mL 0.358-3.740 uIU/mL [facility] nter: [address] [facility] 03/30/2020 Prolactin, Serum Normal Prolactin 4.4 NG/mL [facility]: 0 [facility] 03/08/2020 COVID-19 RNA (SARS-CoV-2), QL, supervisor tunnel heading-PCR, Respiratory Specimen Nasopharyngeal Normal Sars Cov 2 RNA not detected not detected Fi nal [facility] ([employer] [facility]): [address] Past Encounters 04/10/2020 Discharge from [facility]; Mental Health Screening Assessment Deb Lanier PA-C: [address] [place] [address], Ph. 04/05/2020 Generalized Anxiety Disorder; Bipolar Disorder; Panic Disorder [facility]: [address] [place] [address], Ph. 03/30/2020 Generalized Anxiety Disorder; Moderate Recurrent Major Depression; Posttraumatic Stress Disorder; Panic Disorder STEVE SchreiberW-R: [address] [place] [address], Ph. 03/23/2020 Generalized Anxiety Disorder; Bipolar Disorder; Panic Disorder; Posttraumatic Stress Disorder STEVE SchreiberW-R: [address] [place] [address], Ph. 03/15/2020 Posttraumatic Stress Disorder; Severe Recurrent Major Depression; Generalized Anxiety Disorder; Panic Disorder STEVE SchreiberW-R: [address] [place] [address], Ph. 03/08/2020 Generalized Acute Body Pains; Loss of Sense of Smell Deb Lanier PA-C: [address] [place] [address], Ph. 03/02/2020 Posttraumatic Stress Disorder; Severe Recurrent Major Depression without Psychotic Features; Generalized Anxiety Disorder STEVE SchreiberW-R: [address] [place] [address], Ph. 02/23/2020 Generalized Anxiety Disorder; Posttraumatic Stress Disorder; Panic Disorder; Severe Recurrent Major Depression without Psychotic Features; Bipolar Disorder STEVE SchreiberW-R: [address] [place] [address], Ph. 02/17/2020 Posttraumatic Stress Disorder; Severe Recurrent Major Depression without Psychotic Features; Generalized Anxiety Disorder; Chlamydial Epididymitis STEVE SchreiberW-R: [address] [place] [address], Ph. 02/10/2020 Bipolar Disorder; Severe Recurrent Major Depression; Generalized Anxiety Disorder; Posttraumatic Stress Disorder Karina Conrad, [facility]-R: [address] [place] [address], Ph. Social History Tobacco Smoking Status Light Tobacco Smoker (04/17 PPD) Vaccine List None recorded. Plan of Care Reminders Provider Appointments None recorded. Lab None recorded. Referral None recorded. Procedures None recorded. Surgeries None recorded. Imaging None recorded. Vitals 04/10/2020 01:40PM TELEHEALTH 20 Height 63 in 03/08/2020 10:00AM ESTABLISHED [id number] Height Weight BMI Blood Pressure 63 in [...]
--- OUTSIDE RECORDS SUMMARY | 2020-06-07 15:46 | CCD ---
Author Organization Unknown Address [address] [place] [address] Phone [phone] Care Team Providers Care Occupational Health And Safety Officer Name Role Phone Deb Lanier Unavailable Unavailable [...] Active Not available quetiapine 300 mg tablet TAKE ONE TABLET [...] 11/22/2016 History Contraception Care Management Active 12/27/2016 [employer] story Dental Arch Length Loss Secondary to Dental Caries Active 02/05/2017 History Procedure by Method Active 03/19/2017 History Dental Caries on Smooth Surface Penetrating into Dentin Active 03/13/2018 History Sexual Function Painful Active 03/20/2018 History Endocrine/metabolic Screening Active 06/26/2018 [employer] story Cardiovascular Measurement - Finding Active 06/26/2018 [...] Status Address 03/08/2020 COVID-19 RNA (SARS-CoV-2), QL, 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 03/15/2020 Posttraumatic Stress Disorder; Severe Recurrent Major Depression; Generalized Anxiety Disorder; Panic Disorder STEVE SchreiberW-R: [address] [place] [address], Ph. 03/08/2020 Generalized Acute Body Pains; Loss of Sense of Smell Deb Lanier PA-C: [address] [place] [address], Ph. 03/02/2020 Posttraumatic Stress Disorder; Severe Recurrent Major Depression without Psychotic Features; Generalized Anxiety Disorder STEVE SchreiberW-R: [address] [place] [address], Ph. 02/23/2020 Generalized Anxiety Disorder; Posttraumatic Stress Disorder; Panic Disorder; Severe Recurrent Major Depression without Psychotic Features; Bipolar Disorder STEVE SchreiberW-R: [address] [place] [address], Ph. 02/17/2020 Posttraumatic Stress Disorder; Severe Recurrent Major Depression without Psychotic Features; Generalized Anxiety Disorder; Chlamydial Epididymitis STEVE SchreiberW-R: [address] [place] [address], Ph. 02/10/2020 Bipolar Disorder; Severe Recurrent Major Depression; Generalized Anxiety Disorder; Posttraumatic Stress Disorder STEVE SchreiberW-R: [address] [place] [address], Ph. Social History Tobacco Smoking Status Former Smoker Vaccine List None recorded. Plan of Care Reminders Provider Appointments None recorded. Lab None recorded. Referral None recorded. Procedures None recorded. Surgeries None recorded. Imaging None recorded. Vitals 03/08/2020 10:00AM ESTABLISHED [id number] Height Weight BMI Blood Pressure 63 in [...]
--- OUTSIDE RECORDS SUMMARY | 2020-06-07 15:46 | CCD ---
Author Organization Unknown Address [address] [place] [address] Phone [phone] Care Team Providers Care Foreign Food Cook Specialty Name Role Phone Deb Lanier Unavailable Unavailable [...] 11/22/2016 History Contraception Care Management Active 12/27/2016 [employer] story Dental Arch Length Loss Secondary to Dental Caries Active 02/05/2017 History Procedure by Method Active 03/19/2017 History Dental Caries on Smooth Surface Penetrating into Dentin Active 03/13/2018 History Sexual Function Painful Active 03/20/2018 History Endocrine/metabolic Screening Active 06/26/2018 [employer] story Cardiovascular Measurement - Finding Active 06/26/2018 [...] Status Address 03/08/2020 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 03/23/2020 Generalized Anxiety Disorder; Bipolar Disorder; Panic Disorder; Posttraumatic Stress Disorder STEVE SchreiberW-R: [address] [place] [address], Ph. 03/15/2020 Posttraumatic Stress Disorder; Severe Recurrent Major Depression; Generalized Anxiety Disorder; Panic Disorder STEVE SchreiberW-R: [address] [place] [address], Ph. 03/08/2020 Generalized Acute Body Pains; Loss of Sense of Smell Deb Lanier PA-C: [address] [place] [address], Ph. 03/02/2020 Posttraumatic Stress Disorder; Severe Recurrent Major Depression without Psychotic Features; Generalized Anxiety Disorder STEVE SchreiberW-R: [address] [place] [address], Ph. 02/23/2020 Generalized Anxiety Disorder; Posttraumatic Stress Disorder; Panic Disorder; Severe Recurrent Major Depression without Psychotic Features; Bipolar Disorder STEVE SchreiberW-R: [address] [place] [address], Ph. 02/17/2020 Posttraumatic Stress Disorder; Severe Recurrent Major Depression without Psychotic Features; Generalized Anxiety Disorder; Chlamydial Epididymitis Karina Conrad [facility]-R: [address] [place] [address], Ph. 02/10/2020 Bipolar Disorder; Severe Recurrent Major Depression; Generalized Anxiety Disorder; Posttraumatic Stress Disorder Karina Conrad [facility]-R: [address] [place] [address], Ph. Social History Tobacco Smoking Status Former Smoker Vaccine List None recorded. Plan of Care Reminders Provider Appointments None recorded. Lab None recorded. Referral None recorded. Procedures None recorded. Surgeries None recorded. Imaging None recorded. Vitals 03/08/2020 10:00AM ESTABLISHED [id number] Height Weight BMI Blood Pressure 63 in [...]
--- OUTSIDE RECORDS SUMMARY | 2020-06-07 15:46 | CCD ---
Author Organization Unknown Address [address] [place] [address] Phone [phone] Care Team Providers Care Microfilm Camera Operator Name Role Phone Deb Lanier Unavailable Unavailable [...] 11/22/2016 History Contraception Care Management Active 12/27/2016 [facility] Dental Arch Length Loss Secondary to Dental Caries Active 02/05/2017 History Procedure by Method Active 03/19/2017 History Dental Caries on Smooth Surface Penetrating into Dentin Active 03/13/2018 History Sexual Function Painful Active 03/20/2018 History Endocrine/metabolic Screening Active 06/26/2018 [employer] Cardiovascular Measurement - Finding Active 06/26/2018 [...] White Blood Count 5.7 10 4.0-10.0 10 [facility]: [address] [place] [address] Normal Red Blood Count 4.34 10 4.00-5.40 10 [facility]: [address] [place] [address] Normal Hemoglobin 13.7 g/dL 12.0-15.5 g/dL [facility]: [address] [place] [address] Normal Hematocrit 41.8 % 36.0-47.0 % [facility]: [address] [place] [address] High Mean Corpuscular Volume 96.3 fL 80.0 -96.0 fL [facility]: [address] [place] [address] Normal Mean Corpuscular Hemoglobin 31.6 pg 27.0-33.0 pg [facility]: [address] [place] [address] Normal Mean Corpuscular HGB Conc 32.8 g/dL 32.0-36.5 g/dL [facility]: [address] [place] [address] Normal Red Cell Distribution Width 11.7 % 1 1.5-14.5 % [facility]: 0 [facility] Normal Platelet Count, Automated 283 10 150 -450 10 [facility]: 0 [facility] Normal Neutrophils % 53.5 % 36.0-66.0 % [facility]: [address] [facility] Normal Lymph % 35.7 % 24.0-44.0 % [facility]: [address] [facility] High [place] % 8.9 % 0.0-5.0 % [facility]: [address] [facility] Normal Eos % 0.9 % 0.0-3.0 % [facility]: [address] [facility] Normal Baso % 1.0 % 0.0-1.0 % [facility]: [address] [facility] Normal Immature Granulocyte % 0.0 % 0-3.0 % [facility]: [address] [facility] Normal Nucleated Red Blood Cell % 0.0 % 0- 0 % [facility]: [address] [facility] Normal Neutrophils # 3.1 10 1.5-8.5 10 [facility]: [address] [facility] Normal Lymph # 2.0 10 1.5-5.0 10 [facility]: [address] [facility] Normal [place] # 0.5 10 0.0-0.8 10 [facility]: [address] [facility] Normal Eos # 0.1 10 0.0-0.5 10 [facility]: [address] [facility] Normal Baso # 0.1 10 0.0-0.2 10 [facility]: [address] [facility] 03/30/2020 CMP, Serum or Plasma Normal Glucose, Fastin g 86 mg/dL 70-100 mg/dL [facility]: 83 0 [facility] Normal Blood Urea Nitrogen 11 mg/dL 7-18 mg /dL [facility]: [address] [facility] Normal Creatinine for GFR 0.73 mg/dL 0.55-1 .30 mg/dL [facility]: [address] [facility] Normal Glomerular Filtration Rate > 60.0 >6 0 [facility]: [address] [facility] Normal Sodium Level 140 mEq/L 136-145 mEq/L [facility]: 0 [facility] Normal Potassium Serum 4.4 mEq/L 3.5-5.1 mE q/L [facility]: [address] [facility] Normal Chloride Level 107 mEq/L 98-107 mEq/ L [facility]: [address] [facility] Normal Carbon Dioxide Level 29 mEq/L 21-32 mEq/L [facility]: [address] [facility] Low Anion Gap 4 mEq/L 8-16 mEq/L [facility]: 0 [facility] Normal Calcium Level 10.0 mg/dL 8.5-10.1 mg /dL [facility]: [address] [facility] Normal AST/SGOT 10 U/L 7-37 U/L [facility]: [address] [facility] Normal ALT/SGPT 17 U/L 12-78 U/L [facility]: [address] [facility] Normal Alkaline Phosphatase 89 U/L 45-117 U /L [facility]: [address] [place] [address] Normal Bilirubin,total 0.5 mg/dL 0.2-1.0 mg /dL [facility]: [address] [place] [address] Normal Total Protein 7.8 gm/dL 6.4-8.2 gm/d L [facility]: [address] [facility] Normal Albumin 4.1 gm/dL 3.2-5.2 gm/dL [facility]: 0 [facility] Low Albumin/globulin Ratio 1.1 1.2-2. 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 03/30/2020 Generalized Anxiety Disorder; Moderate Recurrent Major Depression; Posttraumatic Stress Disorder; Panic Disorder STEVE SchreiberW-R: [address] [place] [address], Ph. 03/23/2020 Generalized Anxiety Disorder; Bipolar Disorder; Panic Disorder; Posttraumatic Stress Disorder STEVE SchreiberW-R: [address] [place] [address], Ph. 03/15/2020 Posttraumatic Stress Disorder; Severe Recurrent Major Depression; Generalized Anxiety Disorder; Panic Disorder STEVE SchreiberW-R: [address] [place] [address], Ph. 03/08/2020 Generalized Acute Body Pains; Loss of Sense of Smell Deb Lanier PA-C: [address] [place] [address], Ph. 03/02/2020 Posttraumatic Stress Disorder; Severe Recurrent Major Depression without Psychotic Features; Generalized Anxiety Disorder STEVE SchreiberW-R: [address] [place] [address], Ph. 02/23/2020 Generalized Anxiety Disorder; Posttraumatic Stress Disorder; Panic Disorder; Severe Recurrent Major Depression without Psychotic Features; Bipolar Disorder STEVE SchreiberW-R: [address] [place] [address], Ph. 02/17/2020 Posttraumatic Stress Disorder; Severe Recurrent Major Depression without Psychotic Features; Generalized Anxiety Disorder; Chlamydial Epididymitis STEVE SchreiberW-R: [address] [place] [address], Ph. 02/10/2020 Bipolar Disorder; Severe Recurrent Major Depression; Generalized Anxiety Disorder; Posttraumatic Stress Disorder STEVE SchreiberW-R: [address] [place] [address], Ph. Social History Tobacco Smoking Status Former Smoker Vaccine List None recorded. Plan of Care Reminders Provider Appointments None recorded. Lab None recorded. Referral None recorded. Procedures None recorded. Surgeries None recorded. Imaging None recorded. Vitals 03/08/2020 10:00AM ESTABLISHED [id number] Height Weight BMI Blood Pressure 63 in [...]
--- OUTSIDE RECORDS SUMMARY | 2020-06-07 15:46 | CCD ---
Author Organization Unknown Address [address] [place] [address] Phone [phone] Care Team Providers Care Eeg Technologist Name Role Phone Deb Lanier Unavailable Unavailable [...] White Blood Count 5.7 10 4.0-10.0 10 [facility]: [address] [place] [address] Normal Red Blood Count 4.34 10 4.00-5.40 10 [facility]: [address] [place] [address] Normal Hemoglobin 13.7 g/dL 12.0-15.5 g/dL [facility]: [address] [place] [address] Normal Hematocrit 41.8 % 36.0-47.0 % [facility]: [address] [place] [address] High Mean Corpuscular Volume 96.3 fL 80.0 -96.0 fL [facility]: [address] [place] [address] Normal Mean Corpuscular Hemoglobin 31.6 pg 27.0-33.0 pg [facility]: [address] [place] [address] Normal Mean Corpuscular HGB Conc 32.8 g/dL 32.0-36.5 g/dL [facility]: [address] [place] [address] Normal Red Cell Distribution Width 11.7 % 1 1.5-14.5 % [facility]: [address] [place] [address] Normal Platelet Count, Automated 283 10 150 -450 10 [facility]: 0 [facility] Normal Neutrophils % 53.5 % 36.0-66.0 % [facility]: 0 [facility] Normal Lymph % 35.7 % 24.0-44.0 % [facility]: [address] [facility] High [facility] [place] % 8.9 % 0.0-5.0 % [facility]: [address] [facility] Normal Eos % 0.9 % 0.0-3.0 % [facility]: [address] [facility] Normal Baso % 1.0 % 0.0-1.0 % [facility]: 8[address] [facility] Normal Immature Granulocyte % 0.0 % 0-3.0 % [facility]: 0 [facility] Normal Nucleated Red Blood Cell % 0.0 % 0- 0 % [facility]: [address] [facility] Normal Neutrophils # 3.1 10 1.5-8.5 10 [facility] 8[address] [facility] Normal Lymph # 2.0 10 1.5-5.0 10 [facility]: [address] [facility] Normal [facility] # 0.5 10 0.0-0.8 10 [facility]: 0 [facility] Normal Eos # 0.1 10 0.0-0.5 10 [facility]: [address] [facility] Normal Baso # 0.1 10 0.0-0.2 10 [facility]: [address] [facility] 03/30/2020 CMP, Serum or Plasma Normal Glucose, Fastin g 86 mg/dL 70-100 mg/dL [facility]: 83 0 [facility] Normal Blood Urea Nitrogen 11 mg/dL 7-18 mg /dL [facility]: 0 [facility] Normal Creatinine for GFR 0.73 mg/dL 0.55-1 .30 mg/dL [facility]: 0 [facility] Normal Glomerular Filtration Rate > 60.0 >6 0 [facility]: [address] [facility] Normal Sodium Level 140 mEq/L 136-145 mEq/L [facility]: 0 [facility] Normal Potassium Serum 4.4 mEq/L 3.5-5.1 mE q/L [facility]: 8[address] [facility] Normal Chloride Level 107 mEq/L 98-107 mEq/ L [facility]: 0 [facility] Normal Carbon Dioxide Level 29 mEq/L 21-32 mEq/L [facility]: 8[address] [facility] Low Anion Gap 4 mEq/L 8-16 mEq/L [facility]: 0 [facility] Normal Calcium Level 10.0 mg/dL 8.5-10.1 mg /dL [facility]: [address] [facility] Normal AST/SGOT 10 U/L 7-37 U/L [facility]: [address] [facility] Normal ALT/SGPT 17 U/L 12-78 U/L [facility]: [address] [facility] Normal Alkaline Phosphatase 89 U/L 45-117 U /L [facility]: [address] [place] [address] Normal Bilirubin,total 0.5 mg/dL 0.2-1.0 mg /dL [facility]: [address] [place] [address] Normal Total Protein 7.8 gm/dL 6.4-8.2 gm/d L [facility]: [address] [facility] Normal Albumin 4.1 gm/dL 3.2-5.2 gm/dL [facility]: [address] [place] [address] Low Albumin/globulin Ratio 1.1 1.2-2. 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 05/01/2020 STEVE SchreiberW-R: [address] , [facility] [address], [place] [address], Ph. 04/24/2020 Generalized Anxiety Disorder; Posttraumatic Stress Disorder; Moderate Recurrent Major Depression; Panic Disorder Karina Conrad TRUMPET PLAYER-R: [address], [facility] [address], [place] [address], Ph. 04/10/2020 Discharge from [facility]; Mental Health Screening Assessment Deb Lanier PA-C: [address] [place] [address], Ph. 04/05/2020 Generalized Anxiety Disorder; Bipolar Disorder; Panic Disorder Karina Conrad TRUMPET PLAYER-R: [address] [place] [address], Ph. 03/30/2020 Generalized Anxiety Disorder; Moderate Recurrent Major Depression; Posttraumatic Stress Disorder; Panic Disorder Karina Conrad, TRUMPET PLAYER-R: [address] [place] [address], Ph. 03/23/2020 Generalized Anxiety Disorder; Bipolar Disorder; Panic Disorder; Posttraumatic Stress Disorder Karina Conrad, TRUMPET PLAYER-R: [address] [place] [address], Ph. 03/15/2020 Posttraumatic Stress Disorder; Severe Recurrent Major Depression; Generalized Anxiety Disorder; Panic Disorder Karina Conrad, TRUMPET PLAYER-R: [address] [place] [address], Ph. 03/08/2020 Generalized Acute Body Pains; Loss of Sense of Smell Deb Lanier PA-C: [address] [place] [address], Ph. 03/02/2020 Posttraumatic Stress Disorder; Severe Recurrent Major Depression without Psychotic Features; Generalized Anxiety Disorder Karina Conrad, TRUMPET PLAYER-R: [address] [place] [address], Ph. 02/23/2020 Generalized Anxiety Disorder; Posttraumatic Stress Disorder; Panic Disorder; Severe Recurrent Major Depression without Psychotic Features; Bipolar Disorder Karina Conrad [facility]-R: [address] [place] [address], Ph. 02/17/2020 Posttraumatic Stress Disorder; Severe Recurrent Major Depression without Psychotic Features; Generalized Anxiety Disorder; Chlamydial Epididymitis Karina Conrad TRUMPET PLAYER-R: [address] [place] [address], Ph. 02/10/2020 Bipolar Disorder; Severe Recurrent Major Depression; Generalized Anxiety Disorder; Posttraumatic Stress Disorder Karina Conrad [facility]-R: [address] [place] [address], Ph. Social History Tobacco Smoking Status Light Tobacco Smoker (04/17 PPD) Vaccine List None recorded. Plan of Care Reminders Provider Appointments None recorded. Lab None recorded. Referral None recorded. Procedures None recorded. Surgeries None recorded. Imaging None recorded. Vitals 04/10/2020 01:40PM TELEHEALTH 20 Height 63 in 03/08/2020 10:00AM ESTABLISHED [id number] Height Weight BMI Blood Pressure 63 in [...]
--- OUTSIDE RECORDS SUMMARY | 2020-06-07 15:46 | CCD ---
Author Organization Unknown Address [address] [place] [address] Phone [phone] Care Team Providers Care Hvac Controls Technician Name Role Phone Deb Lanier Unavailable [...] 11/22/2016 History Contraception Care Management Active 12/27/2016 [facility] Dental Arch Length Loss Secondary to Dental Caries Active 02/05/2017 History Procedure by Method Active 03/19/2017 History Dental Caries on Smooth Surface Penetrating into Dentin Active 03/13/2018 History Sexual Function Painful Active 03/20/2018 History Endocrine/metabolic Screening Active 06/26/2018 [facility] Cardiovascular Measurement - Finding Active 06/26/2018 History [...] Status Address 03/08/2020 COVID-19 RNA (SARS-CoV-2), QL, c s s representative-PCR, Respiratory Specimen Nasopharyngeal Normal Sars Cov 2 RNA not detected not detected Fi nal Associated Clinical Labs ([facility]): [address] Past Encounters 03/15/2020 STEVE SchreiberW-R: [address] [place] [address], Ph. 03/08/2020 Generalized Acute Body Pains; Loss of Sense of Smell Deb Lanier PA-C: [address] [place] [address], Ph. 03/02/2020 Posttraumatic Stress Disorder; Severe Recurrent Major Depression without Psychotic Features; Generalized Anxiety Disorder STEVE SchreiberW-R: [address] [place] [address], Ph. 02/23/2020 Generalized Anxiety Disorder; Posttraumatic Stress Disorder; Panic Disorder; Severe Recurrent Major Depression without Psychotic Features; Bipolar Disorder STEVE SchreiberW-R: [address] [place] [address], Ph. 02/17/2020 Posttraumatic Stress Disorder; Severe Recurrent Major Depression without Psychotic Features; Generalized Anxiety Disorder; Chlamydial Epididymitis STEVE SchreiberW-R: [address] [place] [address], Ph. 02/10/2020 Bipolar Disorder; Severe Recurrent Major Depression; Generalized Anxiety Disorder; Posttraumatic Stress Disorder STEVE SchreiberW-R: [address] [place] [address], Ph. Social History Tobacco Smoking Status Former Smoker Vaccine List None recorded. Plan of Care Reminders Provider Appointments None recorded. Lab None recorded. Referral None recorded. Procedures None recorded. Surgeries None recorded. Imaging None recorded. Vitals 03/08/2020 10:00AM ESTABLISHED [id number] Height Weight BMI Blood Pressure 63 in [...]
--- OUTSIDE RECORDS SUMMARY | 2020-06-07 15:49 | CCD ---
Author Author [facility] Organization [facility] Address Unknown Phone Unavailable Care Team Providers Care Notcher Name Role Phone JohnsonoOksanaby PA Unavailable Unavailable Scordo, M Deb PA Unavailable Unavailable Scordo, M Deb PA Unavailable Unavailable Scordo, M Deb PA Unavailable Unavailable Scordo, M Deb PA Unavailable Unavailable Scordo, M Deb PA Unavailable Unavailable Scordo, M Deb PA Unavailable Unavailable Scordo, M Deb PA Unavailable Unavailable Scordo, M Deb PA Unavailable Unavailable Scordo, M Deb PA Unavailable Unavailable Scordo, M Deb PA Unavailable Unavailable Scordo, M Deb PA Unavailable Unavailable Scordo, M Deb PA Unavailable Unavailable Scordo, M Deb PA Unavailable Unavailable Scordo, M Deb PA Unavailable Unavailable Scordo, M Deb PA Unavailable Unavailable Scordo, M Deb PA Unavailable Unavailable Scordo, M Deb PA Unavailable Unavailable Scordo, M Deb PA Unavailable Unavailable Scordo, M Deb PA Unavailable Unavailable Scordo, M Deb PA Unavailable Unavailable Scordo, M Deb PA Unavailable Unavailable Scordo, M Deb PA Unavailable Unavailable Scordo, M Deb PA Unavailable Unavailable Scordo, M Deb PA Unavailable Unavailable Scordo, M Deb PA Unavailable Unavailable Scordo, M Deb PA Unavailable Unavailable Scordo, M Deb PA Unavailable Unavailable Scordo, M Deb PA Unavailable Unavailable Scordo, M Deb PA Unavailable Unavailable Scordo, M Deb PA Unavailable Unavailable Scordo, M Deb PA Unavailable Unavailable Scordo, M Deb PA Unavailable Unavailable Scordo, M Deb PA Unavailable Unavailable Scordo, M Deb PA Unavailable Unavailable Scordo, M Deb PA Unavailable Unavailable Scordo, M Deb PA Unavailable Unavailable Scordo, M Deb PA Unavailable Unavailable Scordo, M Deb PA Unavailable Unavailable Scordo, M Deb PA Unavailable Unavailable Scordo, M Deb PA Unavailable Unavailable Scordo, M Deb PA Unavailable Unavailable Scordo, M Deb PA Unavailable Unavailable Tatyana Salas DIRECTOR OF HOTEL OPERATIONS DIRECTOR OF HOTEL OPERATIONS Unavailable Unavailable Caridad GOULD MD Unavailable Unavailable Caridad GUOLD MD Unavailable Unavailable Caridad GOULD MD Unavailable Unavailable Caridad GOULD MD Unavailable Unavailable Caridad GOULD MD Unavailable Unavailable Caridad GOULD MD Unavailable Unavailable Caridad GOULD MD Unavailable Unavailable Caridad GOULD MD Unavailable Unavailable Caridad GOULD MD Unavailable Unavailable Caridad GOULD MD Unavailable Unavailable Caridad GOULD MD Unavailable Unavailable Caridad GOULD MD Unavailable Unavailable Caridad GOULD MD Unavailable Unavailable Caridad GOULD MD Unavailable Unavailable Caridad GOULD MD Unavailable Unavailable Caridad GOULD MD Unavailable Unavailable Caridad GOULD MD Unavailable Unavailable Caridad GOULD MD Unavailable Unavailable Caridad GOULD MD Unavailable Unavailable Caridad GOULD MD Unavailable Unavailable Caridad GOULD MD Unavailable Unavailable Caridad GOULD MD Unavailable Unavailable Caridad GOULD MD Unavailable Unavailable Caridad GOULD MD Unavailable Unavailable Caridad GOULD MD Unavailable Unavailable Caridad GOULD MD Unavailable Unavailable Caridad GOULD MD Unavailable Unavailable Caridad GOULD MD Unavailable Unavailable Caridad GOULD MD Unavailable Unavailable Caridad GOULD MD Unavailable Unavailable Caridad GOULD MD Unavailable Unavailable Caridad GOULD MD Unavailable Unavailable Caridad GOULD MD Unavailable Unavailable Caridad GOULD MD Unavailable Unavailable Caridad GOULD MD Unavailable Unavailable Caridad GOULD MD Unavailable Unavailable Caridad GOULD MD Unavailable Unavailable Caridad GOULD MD Unavailable Unavailable Caridad GOULD MD Unavailable Unavailable Caridad GOULD MD Unavailable Unavailable Caridad GOULD MD Unavailable Unavailable Caridad GOULD MD Unavailable Unavailable Caridad GOULD MD Unavailable Unavailable Caridad GOULD MD Unavailable Unavailable Caridad GOULD MD Unavailable Unavailable Caridad GOULD MD Unavailable Unavailable Caridad GOULD MD Unavailable Unavailable Caridad GOULD MD Unavailable Unavailable Caridad GOULD MD Unavailable Unavailable Caridad GOULD MD Unavailable Unavailable Caridad GOULD MD Unavailable Unavailable Caridad GOULD MD Unavailable Unavailable Caridad GOULD MD Unavailable Unavailable Caridad GOULD MD Unavailable Unavailable Caridad GOULD MD Unavailable Unavailable Caridad GOULD MD Unavailable Unavailable Caridad GOULD MD Unavailable Unavailable Caridad GOULD MD Unavailable Unavailable Caridad GOULD MD Unavailable Unavailable Caridad GOULD MD Unavailable Unavailable Caridad GOULD MD Unavailable Unavailable Caridad GOULD MD Unavailable Unavailable Caridad GOULD MD Unavailable Unavailable Caridad GOULD MD Unavailable Unavailable Caridad GOULD MD Unavailable Unavailable Caridad GOULD MD Unavailable Unavailable Caridad GOULD MD Unavailable Unavailable Caridad GOULD MD Unavailable Unavailable Caridad GOULD MD Unavailable Unavailable Caridad GOULD MD Unavailable Unavailable Caridad GOULD MD Unavailable Unavailable Caridad GOULD MD Unavailable Unavailable Caridad GOULD MD Unavailable Unavailable Caridad GOULD MD Unavailable Unavailable Caridad GOULD MD Unavailable Unavailable Caridad GOULD MD Unavailable Unavailable Caridad GOULD MD Unavailable Unavailable Caridad GOULD MD Unavailable Unavailable Caridad GOULD MD Unavailable Unavailable Caridad GOULD MD Unavailable Unavailable Caridad GOULD MD Unavailable Unavailable Caridad GOULD MD Unavailable Unavailable Caridad GOULD MD Unavailable Unavailable David Salas DIRECTOR OF HOTEL OPERATIONS-BC Unavailable Unavailable David Salas DIRECTOR OF HOTEL OPERATIONS-BC Unavailable Unavailable Salas, F Tatyana DIRECTOR OF HOTEL OPERATIONS-BC Unavailable Unavailable Salas, F Tatyana DIRECTOR OF HOTEL OPERATIONS-BC Unavailable Unavailable Salas, F Tatyaan DIRECTOR OF HOTEL OPERATIONS-BC Unavailable Unavailable Salas, F Tatyana DIRECTOR OF HOTEL OPERATIONS-BC Unavailable Unavailable Salas, F Tatyana DIRECTOR OF HOTEL OPERATIONS-BC Unavailable Unavailable Salas, F Tatyana DIRECTOR OF HOTEL OPERATIONS-BC Unavailable Unavailable Salas, F Tatyana DIRECTOR OF HOTEL OPERATIONS-BC Unavailable Unavailable Salas, F Tatyana DIRECTOR OF HOTEL OPERATIONS-BC Unavailable Unavailable Salas, F Tatyana DIRECTOR OF HOTEL OPERATIONS-BC Unavailable Unavailable Salas, F Tatyana DIRECTOR OF HOTEL OPERATIONS-BC Unavailable Unavailable Salas, F Tatyana DIRECTOR OF HOTEL OPERATIONS-BC Unavailable Unavailable Salas, F Tatyana DIRECTOR OF HOTEL OPERATIONS-BC Unavailable Unavailable Salas, F Tatyana DIRECTOR OF HOTEL OPERATIONS-BC Unavailable Unavailable Salas, F Tatyana DIRECTOR OF HOTEL OPERATIONS-BC Unavailable Unavailable Salas, F Tatyana DIRECTOR OF HOTEL OPERATIONS-BC Unavailable Unavailable Salas, F Tatyana DIRECTOR OF HOTEL OPERATIONS-BC Unavailable Unavailable Salas, F Tatyana DIRECTOR OF HOTEL OPERATIONS-BC Unavailable Unavailable Salas, F Tatyana DIRECTOR OF HOTEL OPERATIONS-BC Unavailable Unavailable Salas, F Tatyana DIRECTOR OF HOTEL OPERATIONS-BC Unavailable Unavailable Salas, F Tatyana DIRECTOR OF HOTEL OPERATIONS-BC Unavailable Unavailable [facility], SSCORDO SCORDO PA DEB Unavailable Unavaila ble Sandra Conrade Unavailable [phone] Scordo, M Deb PA Unavailable Unavailable Scordo, M Deb PA Unavailable Unavailable Scordo, M Deb PA Unavailable Unavailable Scordo, M Deb PA Unavailable Unavailable Scordo, M Deb PA Unavailable Unavailable Scordo, M Deb PA Unavailable Unavailable Scordo, M Deb PA Unavailable Unavailable Scordo, M Deb PA Unavailable Unavailable Scordo, M Deb PA Unavailable Unavailable Scordo, M Deb PA Unavailable Unavailable Scordo, M Deb PA Unavailable Unavailable Scordo, M Deb PA Unavailable Unavailable Scordo, M Deb PA Unavailable Unavailable Scordo, M Deb PA Unavailable Unavailable Scordo, M Deb PA Unavailable Unavailable Scordo, M Deb PA Unavailable Unavailable Scordo, M Deb PA Unavailable Unavailable Scordo, M Deb PA Unavailable Unavailable Scordo, M Deb PA Unavailable Unavailable Scordo, M Deb PA Unavailable Unavailable Scordo, M Deb PA Unavailable Unavailable Scordo, M Deb PA Unavailable Unavailable Scordo, M Deb PA Unavailable Unavailable Scordo, M Deb PA Unavailable Unavailable Scordo, M Deb PA Unavailable Unavailable Scordo, M Deb PA Unavailable Unavailable Scordo, M Deb PA Unavailable Unavailable Scordo, M Deb PA Unavailable Unavailable Scordo, M Deb PA Unavailable Unavailable Scordo, M Deb PA Unavailable Unavailable Scordo, M Deb PA Unavailable Unavailable Scordo, M Deb PA Unavailable Unavailable Scordo, M Deb PA Unavailable Unavailable Scordo, M Deb PA Unavailable Unavailable Scordo, M Deb PA Unavailable Unavailable Scordo, M Deb PA Unavailable Unavailable Scordo, M Deb PA Unavailable Unavailable Scordo, M Deb PA Unavailable Unavailable Scordo, M Deb PA Unavailable Unavailable Scordo, M Deb PA Unavailable Unavailable Scordo, M Deb PA Unavailable Unavailable Scordo, M Deb PA Unavailable Unavailable Scordo, M Deb PA Unavailable Unavailable Ann, Paulo Rowley MD Unavailable Unavailable Ann, Paulo Rowley MD Unavailable Unavailable Ann, Paulo Rowley MD Unavailable Unavailable Ann, Paulo Rowley MD Unavailable Unavailable Ann, Paulo Rowley MD Unavailable Unavailable Ann, Paulo Rowley MD Unavailable Unavailable Ann, Paulo Rowley MD Unavailable Unavailable Ann, Paulo Rowley MD Unavailable Unavailable Ann, Paulo Rowley MD Unavailable Unavailable Ann, Paulo Rowley MD Unavailable Unavailable Ann, Paulo Rowley MD Unavailable Unavailable Ann, Paulo Rowley MD Unavailable Unavailable Erin, Robert Roach MD Unavailable Unavailable Erin, Robert Roach MD Unavailable Unavailable Erin, Robert Roach MD Unavailable Unavailable Erin, Robert Roach MD Unavailable Unavailable Erin, Robert Roach MD Unavailable Unavailable Erin, Robert Roach MD Unavailable Unavailable Erin, Robert Roach MD Unavailable Unavailable Robert Khan MD Unavailable Unavailable Re-disclosure Warning The records that you are about to access may contain information from federally-assisted alcohol or drug abuse programs. If such information is present, then the following federally mandated warning applies: This information has been disclosed to you from records protected by federal confidentiality rules (42 CFR part 2). The federal rules prohibit you from making any further disclosure of this information unless further disclosure is expressly permitted by the written consent of the person to whom it pertains or as otherwise permitted by 42 CFR part 2. A general authorization for the release of medical or other information is NOT sufficient for this purpose. The Federal rules restrict any use of the information to criminally investigate or prosecute any alcohol or drug abuse patient.The records that you are about to access may contain highly sensitive health information, the redisclosure of which is protected by Article 27-F of the [facility] Public Health law. If you continue you may have access to information: Regarding HIV / AIDS; Provided by facilities licensed or operated by the [facility] Office of Mental Health; or Provided by the [facility] Office for People With Developmental Disabilities. If such information is present, then the following [facility] mandated warning applies: This information has been disclosed to you from confidential records which are protected by state law. State law prohibits you from making any further disclosure of this information without the specific written consent of the person to whom it pertains, or as otherwise permitted by law. Any unauthorized further disclosure in violation of state law may result in a fine or prison sentence or both. A general authorization for the release of medical or other information is NOT sufficient authorization for further disc losure. Allergies and Adverse Reactions Type Description Substance Reaction Status Data Source(s ) Allergy to substance Allergy to substance Allergy to substance [facility] ([facility]) Allergy to substance Allergy to substance Allergy to substance [facility] ([facility]) Allergy to substance Allergy to substance Allergy to substance [place] ([facility]) Family History Family Member Name Family Member Gender Family Member Status Date o f Status Description Data Source(s) Unknown Male Problem [facility] ([facility]) Unknown Unknown Problem [facility] ([facility], ) Encounters Encounter Providers Location Date Indications Data Source(s ) Karina Conrad LCSW-R: [address], [place] [address], Ph. Attender: Karina Conrad [facility] Medical 06/05/2020 12:00:00 AM EST [place] ([facility]) Karina Conrad LCSW-R: [address], [place] [address], Ph. Attender: Karina Conrad [facility] Medical 06/05/2020 12:00:00 AM EST [place] ([facility]) Karina Conrad, GIVING OFFICER-R: [address], [place] [address], Ph. Attender: Karina Conrad [facility] Medical 06/05/2020 12:00:00 AM EST [place] ([facility]) Karina Conrad, GIVING OFFICER-R: [address], [place] [address], Ph. Attender: Karina Conrad [facility] Medical 05/29/2020 12:00:00 AM EST [place] ([facility]) Karina Conrad, GIVING OFFICER-R: [address], [place] [address], Ph. Attender: Karina Conrad [facility] Medical 05/29/2020 12:00:00 AM EST [place] ([facility]) Karina Conrad, GIVING OFFICER-R: [address], [place] [address], Ph. Attender: Karina Conrad [facility] Medical 05/29/2020 12:00:00 AM EST [place] ([facility]) Karina Conrad, GIVING OFFICER-R: [address], [place] [address], Ph. Attender: Karina Conrad [facility] Medical 05/29/2020 12:00:00 AM EST [place] ([facility]) Karina Conrad, GIVING OFFICER-R: [address], [place] [address], Ph. Attender: Karina Conrad [facility] Medical 05/29/2020 12:00:00 AM EST [place] ([facility]) Karina Conrad, GIVING OFFICER-R: [address], [place] [address], Ph. Attender: Karina Conrad [facility] Medical 05/29/2020 12:00:00 AM EST [place] ([facility]) Karina Conrad, GIVING OFFICER-R: [address], [place] [address], Ph. Attender: Karina Conrad [facility] Medical 05/29/2020 12:00:00 AM EST [place] ([facility]) Karina Conrad, GIVING OFFICER-R: [address], [place] [address], Ph. Attender: Karina Conrad [facility] Medical 05/22/2020 12:00:00 AM EST [place] ([facility]) Karina Conrad, GIVING OFFICER-R: [address], [place] [address], Ph. Attender: Karina Conrad [facility] Medical 05/22/2020 12:00:00 AM EST [place] ([facility]) Karina Conrad, GIVING OFFICER-R: [address], [place] [address], Ph. Attender: Karina Conrad [facility] Medical 05/22/2020 12:00:00 AM EST [place] ([facility]) Karina Conrad, GIVING OFFICER-R: [address], [place] [address], Ph. Attender: Karina Conrad [facility] Medical 05/22/2020 12:00:00 AM EST [place] ([facility]) Karina Conrad, GIVING OFFICER-R: [address], [place] [address], Ph. Attender: Karina Conrad [facility] Medical 05/22/2020 12:00:00 AM EST [place] ([facility]) Karina Conrad, GIVING OFFICER-R: [address], [place] [address], Ph. Attender: Karina Conrad [facility] Medical 05/22/2020 12:00:00 AM EST [place] ([facility]) Karina Conrad, GIVING OFFICER-R: [address], [place] [address], Ph. Attender: Karina Conrad [facility] Medical 05/22/2020 12:00:00 AM EST [place] ([facility]) Karina Conrad, GIVING OFFICER-R: [address], [place] [address], Ph. Attender: Karina Conrad [facility] Medical 05/22/2020 12:00:00 AM EST [place] ([facility]) Karina Conrad, GIVING OFFICER-R: [address], [place] [address], Ph. Attender: Karina Conrad [facility] Medical 05/16/2020 12:00:00 AM EST [place] ([facility]) Karina Conrad, GIVING OFFICER-R: [address], [place] [address], Ph. Attender: Karina Conrad [facility] Medical 05/16/2020 12:00:00 AM EST [place] ([facility]) Karina Conrad, GIVING OFFICER-R: [address], [place] [address], Ph. Attender: Karina Conrad [facility] Medical 05/16/2020 12:00:00 AM EST [place] ([facility]) Karina Conrad, GIVING OFFICER-R: [address], [place] [address], Ph. Attender: Karina Conrad [facility] Medical 05/16/2020 12:00:00 AM EST [place] ([facility]) Karina Conrad, GIVING OFFICER-R: [address], [place] [address], Ph. Attender: Karina Conrad [facility] Medical 05/16/2020 12:00:00 AM EST [place] ([facility]) Karina Conrad, GIVING OFFICER-R: [address], [place] [address], Ph. Attender: Karina Conrad [facility] Medical 05/16/2020 12:00:00 AM EST [place] ([facility]) Karina Conrad, GIVING OFFICER-R: [address], [place] [address], Ph. Attender: Karina Conrad [facility] Medical 05/16/2020 12:00:00 AM EST [place] ([facility]) Karina Conrad, GIVING OFFICER-R: [address], [place] [address], Ph. Attender: Karina Conrad [facility] Medical 05/16/2020 12:00:00 AM EST [place] ([facility]) Karina Conrad, GIVING OFFICER-R: [address], [place] [address], Ph. Attender: Karina Conrad [facility] Medical 05/16/2020 12:00:00 AM EST [place] ([facility]) Karina Conrad, GIVING OFFICER-R: [address], [place] [address], Ph. Attender: Karina Conrad [facility] Medical 05/16/2020 12:00:00 AM EST [place] ([facility]) Marley Khan MD: [address] [place] [address], Ph. Attender: Marley Khan MD [facility] Medical 05/15/2020 12:00:00 AM EST [place] ([facility]) Marley Khan MD: [address], [place] [address], Ph. Attender: Marley Khan MD [facility] Medical 05/15/2020 12:00:00 AM EST [place] ([facility]) Marley Khan MD: [address], [place] [address], Ph. Attender: Marley Khan MD [facility] Medical 05/15/2020 12:00:00 AM EST [place] ([facility]) Marley Khan MD: [address], [place] [address], Ph. Attender: Marley Khan MD [facility] Medical 05/15/2020 12:00:00 AM EST [place] ([facility]) Marley Khan MD: [address], [place] [address], Ph. Attender: Marley Khan MD [facility] Medical 05/15/2020 12:00:00 AM EST [place] ([facility]) Marley Khan MD: [address], [place] [address], Ph. Attender: Marley Khan MD [facility] Medical 05/15/2020 12:00:00 AM EST [place] ([facility]) Marley Khan MD: [address], [place] [address], Ph. Attender: Marley Khan MD [facility] Medical 05/15/2020 12:00:00 AM EST [place] ([facility]) Marley Khan MD: [address], [place] [address], Ph. Attender: Marley Khan MD [facility] Medical 05/15/2020 12:00:00 AM EST [place] ([facility]) Marley Khan MD: [address], [place] [address], Ph. Attender: Marley Khan MD [facility] Medical 05/15/2020 12:00:00 AM EST [place] ([facility]) Marley Khan MD: [address], [place] [address], Ph. Attender: Marley Khan MD [facility] Medical 05/15/2020 12:00:00 AM EST [place] ([facility]) Marley Khan MD: [address], [place] [address], Ph. Attender: Marley Khan MD [facility] Medical 05/15/2020 12:00:00 AM EST [place] ([facility]) Marley Khan MD: [address], [place] [address], Ph. Attender: Marley Khan MD [facility] Medical 05/15/2020 12:00:00 AM EST [place] ([facility]) Karina Conrad, GIVING OFFICER-R: [address], [place] [address], Ph. Attender: Karina Conrad [facility] Medical 05/08/2020 12:00:00 AM EST [place] ([facility]) Karina Conrad, GIVING OFFICER-R: [address], [place] [address], Ph. Attender: Karina Conrad [facility] Medical 05/08/2020 12:00:00 AM EST [place] ([facility]) Karina Conrad, GIVING OFFICER-R: [address], [place] [address], Ph. Attender: Karina Conrad [facility] Medical 05/08/2020 12:00:00 AM EST [place] ([facility]) Karina Conrad, GIVING OFFICER-R: [address], [place] [address], Ph. Attender: Karina Conrad [facility] Medical 05/08/2020 12:00:00 AM EST [place] ([facility]) Karina oCnrad, GIVING OFFICER-R: [address], [place] [address], Ph. Attender: Karina Conrad [facility] Medical 05/08/2020 12:00:00 AM EST [place] ([facility]) Karina Conrad, GIVING OFFICER-R: [address], [place] [address], Ph. Attender: Karina Conrad [facility] Medical 05/08/2020 12:00:00 AM EST [place] ([facility]) Karina Conrad, GIVING OFFICER-R: [address], [place] [address], Ph. Attender: Karina Conrad [facility] Medical 05/08/2020 12:00:00 AM EST [place] ([facility]) Karina Conrad, GIVING OFFICER-R: [address], [place] [address], Ph. Attender: Karina Conrad [facility] Medical 05/08/2020 12:00:00 AM EST [place] ([facility]) Karina Conrad, GIVING OFFICER-R: [address], [place] [address], Ph. Attender: Karina Conrad [facility] Medical 05/08/2020 12:00:00 AM EST [place] ([facility] [facility] Karina Conrad, GIVING OFFICER-R: [address], [place] [address], Ph. Attender: Karina Conrad [facility] Medical 05/08/2020 12:00:00 AM EST NAVEEN ([facility] Karina Conrad, GIVING OFFICER-R: [address], [place] [address], Ph. Attender: Karina Conrad [facility] Medical 05/08/2020 12:00:00 AM EST NAVEEN ([facility] Karina Conrad, GIVING OFFICER-R: [address], [place] [address], Ph. Attender: Karina Conrad [facility] Medical 05/08/2020 12:00:00 AM EST NAVEEN ([facility] Karina Conrad, GIVING OFFICER-R: [address], [place] [address], Ph. Attender: Karina Conrad [facility] Medical 05/08/2020 12:00:00 AM EST NAVEEN ([facility] Karina Conrad, GIVING OFFICER-R: [address], [place] [address], Ph. Attender: Karina Conrad [facility] Medical 05/01/2020 12:00:00 AM EST NAVEEN ([facility] Karina Conrad, GIVING OFFICER-R: [address], [place] [address], Ph. Attender: Karina Conrad [facility] Medical 05/01/2020 12:00:00 AM EST NAVEEN ([facility] Karina Conrad, GIVING OFFICER-R: [address], [place] [address], Ph. Attender: Karina Conrad [facility] Medical 05/01/2020 12:00:00 AM EST NAVEEN ([facility] Karina Conrad, GIVING OFFICER-R: [address], [place] [address], Ph. Attender: Karina Conrad [facility] Medical 05/01/2020 12:00:00 AM EST NAVEEN ([facility] Karina Conrad, GIVING OFFICER-R: [address], [place] [address], Ph. Attender: Karina Conrad [facility] Medical 05/01/2020 12:00:00 AM EST NAVEEN ([facility] Karina Conrad, GIVING OFFICER-R: [address], [place] [address], Ph. Attender: Karina Conrad [facility] Medical 05/01/2020 12:00:00 AM EST NAVEEN ([facility] Karina Conrad, GIVING OFFICER-R: [address], [place] [address], Ph. Attender: Karina Conrad [facility] Medical 05/01/2020 12:00:00 AM EST NAVEEN ([facility] Karina Conrad, GIVING OFFICER-R: [address], [place] [address], Ph. Attender: Karina Conrad [facility] Medical 05/01/2020 12:00:00 AM EST NAVEEN ([facility] Karina Conrad, GIVING OFFICER-R: [address], [place] [address], Ph. Attender: Karina Conrad [facility] Medical 05/01/2020 12:00:00 AM EST NAVEEN ([facility] Karina Conrad, GIVING OFFICER-R: [address], [address], [place] [address], Ph. Attender: Karina Conrad [facility] Medical 05/01/2020 12:00:00 AM EST NAVEEN ([facility] Karina Conrad, GIVING OFFICER-R: [address], [place] [address], Ph. Attender: Karina Conrad [facility] Medical 05/01/2020 12:00:00 AM EST NAVEEN ([facility] Karina Conrad, GIVING OFFICER-R: [address], [place] [address], Ph. Attender: Karina Conrad [facility] Medical 05/01/2020 12:00:00 AM EST NAVEEN ([facility] Karina Conrad, GIVING OFFICER-R: [address], [place] [address], Ph. Attender: Karina Conrad [facility] Medical 05/01/2020 12:00:00 AM EST NAVEEN ([facility] Karina Conrad, GIVING OFFICER-R: [address], [address], [place] [address], Ph. Attender: Karina Conrad [facility] Medical 04/24/2020 12:00:00 AM EST NAVEEN ([facility] Karina Conrad, GIVING OFFICER-R: [address], [address], [place] [address], Ph. Attender: Karina Conrad [facility] Medical 04/24/2020 12:00:00 AM EST NAVEEN ([facility] Karina Conrad, GIVING OFFICER-R: [address], [address], [place] [address], Ph. Attender: Karina Conrad [facility] Medical 04/24/2020 12:00:00 AM EST NAVEEN ([facility] Karina Conrad, GIVING OFFICER-R: [address], [address], [place] [address], Ph. Attender: aKrina Conrad [facility] Medical 04/24/2020 12:00:00 AM EST NAVEEN ([facility] Karina Conrad, GIVING OFFICER-R: [address], [address], [place] [address], Ph. Attender: Karina Conrad [facility] Medical 04/24/2020 12:00:00 AM EST NAVEEN ([facility] Karina Conrad, GIVING OFFICER-R: [address], [address], [place] [address], Ph. Attender: Karina Conrad [facility] Medical 04/24/2020 12:00:00 AM EST NAVEEN ([facility] Karina Conrad, GIVING OFFICER-R: [address], [address], [place] [address], Ph. Attender: Karina Conrad [facility] Medical 04/24/2020 12:00:00 AM EST NAVEEN ([facility] Karina Conrad, GIVING OFFICER-R: [address], [address], [place] [address], Ph. Attender: Karina Conrad [facility] Medical 04/24/2020 12:00:00 AM EST NAVEEN ([facility] Karina Conrad, GIVING OFFICER-R: [address], [address], [place] [address], Ph. Attender: Karina Conrad [facility] Medical 04/24/2020 12:00:00 AM EST NAVEEN ([facility] Karina Conrad, GIVING OFFICER-R: [address], [address], [place] [address], Ph. Attender: Karina Conrad [facility] Medical 04/24/2020 12:00:00 AM EST NAVEEN ([facility] Karina Conrad, GIVING OFFICER-R: [address], [address], [place] [address], Ph. Attender: Karina Conrad [facility] Medical 04/24/2020 12:00:00 AM EST NAVEEN ([facility] Karina Conrad, GIVING OFFICER-R: [address], [address], [place] [address], Ph. Attender: Karina Conrad [facility] Medical 04/24/2020 12:00:00 AM EST NAVEEN ([facility] Karina Conrad, GIVING OFFICER-R: [address], [address], [place] [address], Ph. Attender: Karina Conrad [facility] Medical 04/24/2020 12:00:00 AM EST NAVEEN ([facility] Karina Conrad, GIVING OFFICER-R: [address], [address], [place] [address], Ph. Attender: Karina Conrad [facility] Medical 04/24/2020 12:00:00 AM EST NAVEEN ([facility] Deb Lanier PA-C: [address], [place] [address], Ph. Attender: Deb RIOS [facility] Medical 04/10/2020 12:00:00 AM EST NAVEEN ([facility]) Deb Lanier PA-C: [address], [place] [address], Ph. Attender: Deb RIOS [facility] Medical 04/10/2020 12:00:00 AM EST NAVEEN ([facility]) Deb Lanier PA-C: [address], [place] [address], Ph. Attender: Deb RIOS [facility] Medical 04/10/2020 12:00:00 AM EST NAVEEN ([facility]) Deb Lanier PA-C: [address], [place] [address], Ph. Attender: Deb RIOS [facility] Medical 04/10/2020 12:00:00 AM EST NAVEEN ([facility]) Deb Lanier PA-C: [address], [place] [address], Ph. Attender: Deb RIOS [facility] Medical 04/10/2020 12:00:00 AM EST NAVEEN ([facility]) Deb Lanier PA-C: [address], [place] [address], Ph. Attender: Deb RIOS [facility] Medical 04/10/2020 12:00:00 AM EST NAVEEN ([facility]) Deb Lanier PA-C: [address], [place] [address], Ph. Attender: Deb RIOS [facility] Medical 04/10/2020 12:00:00 AM EST NAVEEN ([facility]) Deb Lanier PA-C: [address], [place] [address], Ph. Attender: Deb RIOS [facility] Medical 04/10/2020 12:00:00 AM EST NAVEEN ([facility]) Deb Lanier PA-C: [address], [place] [address], Ph. Attender: Deb RIOS [facility] Medical 04/10/2020 12:00:00 AM EST NAVEEN ([facility]) Deb Lanier PA-C: [address], [place] [address], Ph. Attender: Deb RIOS [facility] Medical 04/10/2020 12:00:00 AM EST NAVEEN ([facility]) Deb Lanier PA-C: [address], [place] [address], Ph. Attender: Deb RIOS [facility] Medical 04/10/2020 12:00:00 AM EST NAVEEN ([facility]) Deb Lanier PA-C: [address], [place] [address], Ph. Attender: Deb RIOS [facility] Medical 04/10/2020 12:00:00 AM EST NAVEEN ([facility]) Deb Lanier PA-C: [address], [place] [address], Ph. Attender: Deb RIOS [facility] Medical 04/10/2020 12:00:00 AM EST NAVEEN ([facility]) Deb Lanier PA-C: [address], [facility] [place] [address], Ph. Attender: Deb RIOS [facility] Medical 04/10/2020 12:00:00 AM EST NAVEEN ([facility]) Deb Lanier PA-C: [address], [facility] [place] [address], Ph. Attender: Deb RIOS [facility] Medical 04/10/2020 12:00:00 AM EST NAVEEN ([facility]) Karina Conrad LCSW-R: [address] , [place] [address], Ph. Attender: Karina Conrad [facility] Medical 04/05/2020 12:00:00 AM EST NAVEEN ([facility]) Karina Turturro, GIVING OFFICER-R: [address] [place] [address], Ph. Attender: Karina Conrad [facility] Medical 04/05/2020 12:00:00 AM EST NAVEEN ([facility]) Karina Conrad, GIVING OFFICER-R: [address] [place] [address], Ph. Attender: Karina Conrad [facility] Medical 04/05/2020 12:00:00 AM EST NAVEEN ([facility]) Karina Conrad, GIVING OFFICER-R: [address] [place] [address], Ph. Attender: Karina Granadozeb [facility] Medical 04/05/2020 12:00:00 AM EST NAVEEN ([facility]) Karina Conrad, GIVING OFFICER-R: [address] [place] [address], Ph. Attender: Karina Conrad [facility] Medical 04/05/2020 12:00:00 AM EST NAVEEN ([facility]) Karina Lathamcaridadlloydzeb, GIVING OFFICER-R: [address] [place] [address], Ph. Attender: Karina Yeisonalbero [facility] Medical 04/05/2020 12:00:00 AM EST NAVEEN ([facility]) Karina Yeisonalbero, GIVING OFFICER-R: [address] [place] [address], Ph. Attender: Karina Monicalloydzeb [facility] Medical 04/05/2020 12:00:00 AM EST NAVEEN ([facility]) Karina Conrad, GIVING OFFICER-R: [address] [place] [address], Ph. Attender: Karina Conrad [facility] Medical 04/05/2020 12:00:00 AM EST NAVEEN ([facility]) Karina Conrad, GIVING OFFICER-R: [address] [place] [address], Ph. Attender: Karina Monicalloydzeb [facility] Medical 04/05/2020 12:00:00 AM EST NAVEEN ([facility]) Karina Conrad, GIVING OFFICER-R: [address] [place] [address], Ph. Attender: Karina Monicalloydzeb [facility] Medical 04/05/2020 12:00:00 AM EST NAVEEN ([facility]) Karina Conrad, GIVING OFFICER-R: [address] [place] [address], Ph. Attender: Karina Monicalloydzeb [facility] Medical 04/05/2020 12:00:00 AM EST NAVEEN ([facility]) Karina Monicalloydzeb, GIVING OFFICER-R: [address] [place] [address], Ph. Attender: Karina Monicalloydzeb [facility] Medical 04/05/2020 12:00:00 AM EST NAVEEN ([facility]) Karina Yeisonalberzeb, GIVING OFFICER-R: [address] [place] [address], Ph. Attender: Karina Houston [facility] Medical 04/05/2020 12:00:00 AM EST NAVEEN ([facility]) Karina Conrad, GIVING OFFICER-R: [address] [place] [address], Ph. Attender: Karina Conrad [facility] Medical 04/05/2020 12:00:00 AM EST NAVEEN ([facility]) Karina Conrad, GIVING OFFICER-R: [address] [place] [address], Ph. Attender: Karina Monicalloydzeb [facility] Medical 04/05/2020 12:00:00 AM EST NAVEEN ([facility]) Karina Conrad, GIVING OFFICER-R: [address] [place] [address], Ph. Attender: Karina Monicalloydzeb [facility] Medical 04/05/2020 12:00:00 AM EST NAVEEN ([facility]) Karina Conrad, GIVING OFFICER-R: [address] [place] [address], Ph. Attender: Karina Houston [facility] Medical 03/30/2020 12:00:00 AM EST NAVEEN ([facility]) Karina Granadozeb, GIVING OFFICER-R: [address] [place] [address], Ph. Attender: Karina Monicalloydo [facility] Medical 03/30/2020 12:00:00 AM EST NAVEEN ([facility]) Karina Yeisonalberzeb, GIVING OFFICER-R: [address] [place] [address], Ph. Attender: Karina Vannesao [facility] Medical 03/30/2020 12:00:00 AM EST NAVEEN ([facility]) Karina Lathamcaridadlloydzeb, GIVING OFFICER-R: [address] [place] [address], Ph. Attender: Karina Monicalloydzeb [facility] Medical 03/30/2020 12:00:00 AM EST NAVEEN ([facility]) Karina Monicalloydzeb, GIVING OFFICER-R: [address] , [place] [address], Ph. Attender: Karina Houston [facility] Medical 03/30/2020 12:00:00 AM EST NAVEEN ([facility]) Karina Monicalloydzeb, GIVING OFFICER-R: [address] [place] [address], Ph. Attender: Karina Houston [facility] Medical 03/30/2020 12:00:00 AM EST NAVEEN ([facility]) Karina Monicalloydzeb, GIVING OFFICER-R: [address] [place] [address], Ph. Attender: Karina Conrad [facility] Medical 03/30/2020 12:00:00 AM EST NAVEEN ([facility]) Karina Monicalloydzeb, GIVING OFFICER-R: [address] [place] [address], Ph. Attender: Karina Conrad [facility] Medical 03/30/2020 12:00:00 AM EST NAVEEN ([facility]) Karina Houston, GIVING OFFICER-R: [address] [place] [address], Ph. Attender: Karina Conrad [facility] Medical 03/30/2020 12:00:00 AM EST NAVEEN ([facility]) Karina Conrad, GIVING OFFICER-R: [address] , [place] [address], Ph. Attender: Karina Monicalloydzeb [facility] Medical 03/30/2020 12:00:00 AM EST NAVEEN ([facility]) Karina Granadozeb, GIVING OFFICER-R: [address] , [place] [address], Ph. Attender: Karina Monicalloydzeb [facility] Medical 03/30/2020 12:00:00 AM EST NAVEEN ([facility]) Karina Monicalloydzeb, GIVING OFFICER-R: [address] [place] [address], Ph. Attender: Karina Monicalloydzeb [facility] Medical 03/30/2020 12:00:00 AM EST NAVEEN ([facility]) Karina Lathamcaridadlloydzeb, GIVING OFFICER-R: [address] [place] [address], Ph. Attender: Karina Houston [facility] Medical 03/30/2020 12:00:00 AM EST NAVEEN ([facility]) Karina Monicalloydzeb, GIVING OFFICER-R: [address] [place] [address], Ph. Attender: Karina Monicalloydzeb [facility] Medical 03/30/2020 12:00:00 AM EST NAVEEN ([facility]) Karina Houston, GIVING OFFICER-R: [address] [place] [address], Ph. Attender: Karina Turcariddalloydzeb [facility] Medical 03/30/2020 12:00:00 AM EST NAVEEN ([facility]) Karina Conrad, GIVING OFFICER-R: [address] , [place] [address], Ph. Attender: Karina Monicalloydzeb [facility] Medical 03/30/2020 12:00:00 AM EST NAVEEN ([facility]) Karina Lathamcaridadlloydzeb, GIVING OFFICER-R: [address] , [place] [address], Ph. Attender: Karina Monicalloydzeb [facility] Medical 03/30/2020 12:00:00 AM EST NAVEEN ([facility]) Karina Monicalloydzeb, GIVING OFFICER-R: [address] [place] [address], Ph. Attender: Karina Monicalloydzeb [facility] Medical 03/23/2020 12:00:00 AM EST NAVEEN ([facility]) Karina Granadozeb, GIVING OFFICER-R: [address] [place] [address], Ph. Attender: Karina Monicalloydzeb [facility] Medical 03/23/2020 12:00:00 AM EST NAVEEN ([facility]) Karina Monicalloydzeb, GIVING OFFICER-R: [address] [place] [address], Ph. Attender: Karina Houston [facility] Medical 03/23/2020 12:00:00 AM EST NAVEEN ([facility]) Karina Houston, GIVING OFFICER-R: [address] , [place] [address], Ph. Attender: Karina Lathamcaridadlloydzeb [facility] Medical 03/23/2020 12:00:00 AM EST NAVEEN ([facility]) Karina Conrad, GIVING OFFICER-R: [address] [place] [address], Ph. Attender: Karina Yeisonalberzeb [facility] Medical 03/23/2020 12:00:00 AM EST NAVEEN ([facility]) Karina Granadozeb, GIVING OFFICER-R: [address] [place] [address], Ph. Attender: Karina Lathamcaridadlloydzeb [facility] Medical 03/23/2020 12:00:00 AM EST NAVEEN ([facility]) Karina Yeisonalberzeb, GIVING OFFICER-R: [address] [place] [address], Ph. Attender: Karina Monicalloydzeb [facility] Medical 03/23/2020 12:00:00 AM EST NAVEEN ([facility]) Karina Granadozeb, GIVING OFFICER-R: [address] [place] [address], Ph. Attender: Karina Monicalloydzeb [facility] Medical 03/23/2020 12:00:00 AM EST NAVEEN ([facility]) Karina Monicalloydzeb, GIVING OFFICER-R: [address] [place] [address], Ph. Attender: Karina Monicalloydo [facility] Medical 03/23/2020 12:00:00 AM EST NAVEEN ([facility]) Karina Houston, GIVING OFFICER-R: [address] , [place] [address], Ph. Attender: Karina Houston [facility] Medical 03/23/2020 12:00:00 AM EST NAVEEN ([facility]) Karina Houston, GIVING OFFICER-R: [address] [place] [address], Ph. Attender: Karina Vannesao [facility] Medical 03/23/2020 12:00:00 AM EST NAVEEN ([facility]) Karina Houston, GIVING OFFICER-R: [address] [place] [address], Ph. Attender: Karina Conrad [facility] Medical 03/23/2020 12:00:00 AM EST NAVEEN ([facility]) Karina Houston, GIVING OFFICER-R: [address] [place] [address], Ph. Attender: Karina Conrad [facility] Medical 03/23/2020 12:00:00 AM EST NAVEEN ([facility]) Karina Conrad, GIVING OFFICER-R: [address] [place] [address], Ph. Attender: Karina Granadoo [facility] Medical 03/23/2020 12:00:00 AM EST NAVEEN ([facility]) Karinapineda Conrad, GIVING OFFICER-R: [address] [place] [address], Ph. Attender: Karina Conrad [facility] Medical 03/23/2020 12:00:00 AM EST NAVEEN ([facility]) Karina Conrad, GIVING OFFICER-R: [address] [place] [address], Ph. Attender: Karina Monicalloydzeb [facility] Medical 03/23/2020 12:00:00 AM EST NAVEEN ([facility]) Karina Conrad, GIVING OFFICER-R: [address] [place] [address], Ph. Attender: Karina Monicalloydzeb [facility] Medical 03/23/2020 12:00:00 AM EST NAVEEN ([facility]) Karina Houston, GIVING OFFICER-R: [address] [place] [address], Ph. Attender: Karina Houston [facility] Medical 03/23/2020 12:00:00 AM EST NAVEEN ([facility]) Karina Lathamcaridadlloydzeb, GIVING OFFICER-R: [address] [place] [address], Ph. Attender: Karina Houston [facility] Medical 03/15/2020 12:00:00 AM EST NAVEEN ([facility]) Karina Houston, GIVING OFFICER-R: [address] [place] [address], Ph. Attender: Karina Houston [facility] Medical 03/15/2020 12:00:00 AM EST NAVEEN ([facility]) Karina Houston, GIVING OFFICER-R: [address] [place] [address], Ph. Attender: Karina Conrad [facility] Medical 03/15/2020 12:00:00 AM EST NAVEEN ([facility]) Karina Conrad, GIVING OFFICER-R: [address] [place] [address], Ph. Attender: Karina Granadozeb [facility] Medical 03/15/2020 12:00:00 AM EST NAVEEN ([facility]) Karina Granadozeb, GIVING OFFICER-R: [address] [place] [address], Ph. Attender: Karina Lathamcaridadlloydzeb [facility] Medical 03/15/2020 12:00:00 AM EST NAVEEN ([facility]) Karina Conrad, GIVING OFFICER-R: [address] [place] [address], Ph. Attender: Karina Monicalloydzeb [facility] Medical 03/15/2020 12:00:00 AM EST NAVEEN ([facility]) Karina Granadozeb, GIVING OFFICER-R: [address] [place] [address], Ph. Attender: Karina Monicalloydzeb [facility] Medical 03/15/2020 12:00:00 AM EST NAVEEN ([facility]) Karina Houston, GIVING OFFICER-R: [address] [place] [address], Ph. Attender: Karina Houtson [facility] Medical 03/15/2020 12:00:00 AM EST NAVEEN ([facility]) Karina Houston, GIVING OFFICER-R: [address] [place] [address], Ph. Attender: Karina Conrad [facility] Medical 03/15/2020 12:00:00 AM EST NAVEEN ([facility]) Karina Conrad, GIVING OFFICER-R: [address] [place] [address], Ph. Attender: Karina Conrad [facility] Medical 03/15/2020 12:00:00 AM EST NAVEEN ([facility]) Karina Conrad, GIVING OFFICER-R: [address] [place] [address], Ph. Attender: Karina Conrad [facility] Medical 03/15/2020 12:00:00 AM EST NAVEEN ([facility]) Karina Conrad, GIVING OFFICER-R: [address] [place] [address], Ph. Attender: Karina Conrad [facility] Medical 03/15/2020 12:00:00 AM EST NAVEEN ([facility]) Karina Conrad, GIVING OFFICER-R: [address] [place] [address], Ph. Attender: Karina Monicalloydzeb [facility] Medical 03/15/2020 12:00:00 AM EST NAVEEN ([facility]) Karina Conrad, GIVING OFFICER-R: [address] [place] [address], Ph. Attender: Karina Monicalloydo [facility] Medical 03/15/2020 12:00:00 AM EST NAVEEN ([facility]) Karina Conrad, GIVING OFFICER-R: [address] [place] [address], Ph. Attender: Karina Monicalloydo [facility] Medical 03/15/2020 12:00:00 AM EST [place] ([facility]) Karina Conrad, GIVING OFFICER-R: [address] [place] [address], Ph. Attender: Karina Conrad [facility] Medical 03/15/2020 12:00:00 AM EST [place] ([facility]) Karina Conrad, GIVING OFFICER-R: [address] [place] [address], Ph. Attender: Karina Conrad [facility] Medical 03/15/2020 12:00:00 AM EST [place] ([facility]) Karina Conrad, GIVING OFFICER-R: [address] [place] [address], Ph. Attender: Karina Conrad [facility] Medical 03/15/2020 12:00:00 AM EST [place] ([facility]) Karina Conrad, GIVING OFFICER-R: [address] [place] [address], Ph. Attender: Karina Houston [facility] Medical 03/15/2020 12:00:00 AM EST [place] ([facility]) Karina Conrad, GIVING OFFICER-R: [address] [place] [address], Ph. Attender: Karina Monicalloydzeb [facility] Medical 03/15/2020 12:00:00 AM EST [place] ([facility]) Deb Lanier PA-C: [address] [place] [address], Ph. Attender: Deb RIOS [facility] Medical 03/08/2020 12:00:00 AM EST [place] ([facility]) Deb Lanier PA-C: [address], [place] [address], Ph. Attender: Deb RIOS [facility] Medical 03/08/2020 12:00:00 AM EST [place] ([facility]) Deb Lanier PA-C: [address], [place] [address], Ph. Attender: Deb RIOS [facility] Medical 03/08/2020 12:00:00 AM EST [place] ([facility]) Deb Lanier PA-C: [address], [place] [address], Ph. Attender: Deb RIOS [facility] Medical 03/08/2020 12:00:00 AM EST [place] ([facility]) Deb Lanier PA-C: [address], [place] [address], Ph. Attender: Deb RIOS [facility] Medical 03/08/2020 12:00:00 AM EST [place] ([facility]) Deb Lanier PA-C: [address], [place] [address], Ph. Attender: Deb RIOS [facility] Medical 03/08/2020 12:00:00 AM EST [place] ([facility]) Deb Lanier PA-C: [address], [place] [address], Ph. Attender: Deb RIOS [facility] Medical 03/08/2020 12:00:00 AM EST [place] ([facility]) Deb Lanier PA-C: [address], [place] [address], Ph. Attender: Deb RIOS [facility] Medical 03/08/2020 12:00:00 AM EST [place] ([facility]) Deb Lanier PA-C: [address], [place] [address], Ph. Attender: Deb RIOS [facility] Medical 03/08/2020 12:00:00 AM EST [place] ([facility]) Deb Lanier PA-C: [address], [place] [address], Ph. Attender: Deb RIOS [facility] Medical 03/08/2020 12:00:00 AM EST [place] ([facility]) Deb Lanier PA-C: [address], [place] [address], Ph. Attender: Deb RIOS [facility] Medical 03/08/2020 12:00:00 AM EST [place] ([facility]) Deb Lanier PA-C: [address], [place] [address], Ph. Attender: Deb RIOS [facility] Medical 03/08/2020 12:00:00 AM EST [place] ([facility]) Deb Lanier PA-C: [address], [place] [address], Ph. Attender: Deb RIOS [facility] Medical 03/08/2020 12:00:00 AM EST [place] ([facility]) Deb Lanier PA-C: [address], [place] [address], Ph. Attender: Deb RIOS [facility] Medical 03/08/2020 12:00:00 AM EST [place] ([facility]) Deb Lanier PA-C: [address], [place] [address], Ph. Attender: Deb RIOS [facility] Medical 03/08/2020 12:00:00 AM EST [place] ([facility]) Deb Lanier PA-C: [address], [place] [address], Ph. Attender: Deb RIOS [facility] Medical 03/08/2020 12:00:00 AM EST [place] ([facility]) Deb Lanier PA-C: [address], [place] [address], Ph. Attender: Deb RIOS [facility] Medical 03/08/2020 12:00:00 AM EST [place] ([facility]) Deb Lanier PA-C: [address], [place] [address], Ph. Attender: Deb RIOS [facility] Medical 03/08/2020 12:00:00 AM EST [place] ([facility]) Deb Lanier PA-C: [address], [place] [address], Ph. Attender: Deb RIOS [facility] Medical 03/08/2020 12:00:00 AM EST [place] ([facility]) Deb Lanier PA-C: [address], [place] [address], Ph. Attender: Deb RIOS [facility] Medical 03/08/2020 12:00:00 AM EST [place] ([facility]) Deb Lanier PA-C: [address] [place] [address], Ph. Attender: Deb RIOS [facility] Medical 03/08/2020 12:00:00 AM EST [place] ([facility]) Karina Conrad, GIVING OFFICER-R: [address] [place] [address], Ph. Attender: Karina Conrad [facility] Medical 03/02/2020 12:00:00 AM EST [place] ([facility]) Karina Conrad, GIVING OFFICER-R: [address] [place] [address], Ph. Attender: Karina Conrad [facility] Medical 03/02/2020 12:00:00 AM EST [place] ([facility]) Karina Conrad, GIVING OFFICER-R: [address] [place] [address], Ph. Attender: Karina Conrad [facility] Medical 03/02/2020 12:00:00 AM EST [place] ([facility]) Karina Conrad, GIVING OFFICER-R: [address] [place] [address], Ph. Attender: Karina Conrad [facility] Medical 03/02/2020 12:00:00 AM EST [place] ([facility]) Karina Conrad, GIVING OFFICER-R: [address] [place] [address], Ph. Attender: Karina Granadozeb [facility] Medical 03/02/2020 12:00:00 AM EST [place] ([facility]) Karina Conrad, GIVING OFFICER-R: [address] , [place] [address], Ph. Attender: Karina Yeisonalberzeb [facility] Medical 03/02/2020 12:00:00 AM EST [place] ([facility]) Karina Monicalloydzeb, GIVING OFFICER-R: [address] , [place] [address], Ph. Attender: Karina Lathamcaridadlloydzeb [facility] Medical 03/02/2020 12:00:00 AM EST [place] ([facility]) Karina Houston, GIVING OFFICER-R: [address] [place] [address], Ph. Attender: Karina Monicalloydzeb [facility] Medical 03/02/2020 12:00:00 AM EST [place] ([facility]) Karina Lathamcaridadlloydzeb, GIVING OFFICER-R: [address] [place] [address], Ph. Attender: Karina Monicalloydzeb [facility] Medical 03/02/2020 12:00:00 AM EST [place] ([facility]) Karina Houston, GIVING OFFICER-R: [address] , [place] [address], Ph. Attender: Karina Monicalloydzeb [facility] Medical 03/02/2020 12:00:00 AM EST [place] ([facility]) Karina Houston, GIVING OFFICER-R: [address] , [place] [address], Ph. Attender: Karina Conrad [facility] Medical 03/02/2020 12:00:00 AM EST [place] ([facility]) Karina Conrad, GIVING OFFICER-R: [address] [place] [address], Ph. Attender: Karina Conrad [facility] Medical 03/02/2020 12:00:00 AM EST [place] ([facility]) Karina Monicalloydzeb, GIVING OFFICER-R: [address] [place] [address], Ph. Attender: Karina Monicalloydzeb [facility] Medical 03/02/2020 12:00:00 AM EST [place] ([facility]) Karina Monicalloydzeb, GIVING OFFICER-R: [address] [place] [address], Ph. Attender: Karina Monicalloydzeb [facility] Medical 03/02/2020 12:00:00 AM EST [place] ([facility]) Karina Monicalloydzeb, GIVING OFFICER-R: [address] [place] [address], Ph. Attender: Karina Monicalloydzeb [facility] Medical 03/02/2020 12:00:00 AM EST [place] ([facility]) Karina Houston, GIVING OFFICER-R: [address] [place] [address], Ph. Attender: Karina Houston [facility] Medical 03/02/2020 12:00:00 AM EST [place] ([facility]) Karina Conrad, GIVING OFFICER-R: [address] , [place] [address], Ph. Attender: Karina Monicalloydzeb [facility] Medical 03/02/2020 12:00:00 AM EST [place] ([facility]) Karina Monicalloydzeb, GIVING OFFICER-R: [address] [place] [address], Ph. Attender: Karina Houston [facility] Medical 03/02/2020 12:00:00 AM EST [place] ([facility]) Karina Houston, GIVING OFFICER-R: [address] [place] [address], Ph. Attender: Karina Houston [facility] Medical 03/02/2020 12:00:00 AM EST [place] ([facility]) Karina Houston, GIVING OFFICER-R: [address] [place] [address], Ph. Attender: Karina Houston [facility] Medical 03/02/2020 12:00:00 AM EST [place] ([facility]) Karina Conrad, GIVING OFFICER-R: [address] [place] [address], Ph. Attender: Karina Houston [facility] Medical 03/02/2020 12:00:00 AM EST [place] ([facility]) Karina Conrad, GIVING OFFICER-R: [address] [place] [address], Ph. Attender: Karina Conrad [facility] Medical 03/02/2020 12:00:00 AM EST [place] ([facility]) Karina Conrad, GIVING OFFICER-R: [address] [place] [address], Ph. Attender: Karina Conrad [facility] Medical 02/23/2020 12:00:00 AM EST [place] ([facility]) Karina Conrad, GIVING OFFICER-R: [address] [place] [address], Ph. Attender: Karina Conrad [facility] Medical 02/23/2020 12:00:00 AM EST [place] ([facility]) Karina Conrad, GIVING OFFICER-R: [address] [place] [address], Ph. Attender: Karina Granadozeb [facility] Medical 02/23/2020 12:00:00 AM EST [place] ([facility]) Karina Conrad, GIVING OFFICER-R: [address] [place] [address], Ph. Attender: Karina Conrad [facility] Medical 02/23/2020 12:00:00 AM EST [place] ([facility]) Karina Lathamcaridadlloydzeb, GIVING OFFICER-R: [address] [place] [address], Ph. Attender: Karina Granadoo [facility] Medical 02/23/2020 12:00:00 AM EST [place] ([facility]) Karina Monicalloydo, GIVING OFFICER-R: [address] [place] [address], Ph. Attender: Karina Monicalloydzeb [facility] Medical 02/23/2020 12:00:00 AM EST [place] ([facility]) Karina Conrad, GIVING OFFICER-R: [address] [place] [address], Ph. Attender: Karina Conrad [facility] Medical 02/23/2020 12:00:00 AM EST [place] ([facility]) Karina Conrad, GIVING OFFICER-R: [address] [place] [address], Ph. Attender: Karina Monicapiero [facility] Medical 02/23/2020 12:00:00 AM EST [place] ([facility]) Karina Conrad, GIVING OFFICER-R: [address] [place] [address], Ph. Attender: Karina Monicalloydzeb [facility] Medical 02/23/2020 12:00:00 AM EST [place] ([facility]) Karina Conrad, GIVING OFFICER-R: [address] [place] [address], Ph. Attender: Karina Monicalloydzeb [facility] Medical 02/23/2020 12:00:00 AM EST [place] ([facility]) Karina Monicalloydzeb, GIVING OFFICER-R: [address] [place] [address], Ph. Attender: Karina Monicalloydzeb [facility] Medical 02/23/2020 12:00:00 AM EST [place] ([facility]) Karina Yeisonalberzeb, GIVING OFFICER-R: [address] [place] [address], Ph. Attender: Karina Houston [facility] Medical 02/23/2020 12:00:00 AM EST [place] ([facility]) Karina Conrad, GIVING OFFICER-R: [address] [place] [address], Ph. Attender: Karina Conrad [facility] Medical 02/23/2020 12:00:00 AM EST [place] ([facility]) Karina Conrad, GIVING OFFICER-R: [address] [place] [address], Ph. Attender: Karina Monicalloydzeb [facility] Medical 02/23/2020 12:00:00 AM EST [place] ([facility]) Karina Conrad, GIVING OFFICER-R: [address] [place] [address], Ph. Attender: Karina Monicalloydzeb [facility] Medical 02/23/2020 12:00:00 AM EST [place] ([facility]) Karina Conrad, GIVING OFFICER-R: [address] [place] [address], Ph. Attender: Karina Houston [facility] Medical 02/23/2020 12:00:00 AM EST [place] ([facility]) Karina Lathamcaridadlloydzeb, GIVING OFFICER-R: [address] [place] [address], Ph. Attender: Karina Monicalloydo [facility] Medical 02/23/2020 12:00:00 AM EST [place] ([facility]) Karina Yeisonalberzeb, GIVING OFFICER-R: [address] [place] [address], Ph. Attender: Karina Vannesao [facility] Medical 02/23/2020 12:00:00 AM EST [place] ([facility]) Karina Monicalloydzeb, GIVING OFFICER-R: [address] [place] [address], Ph. Attender: Karina Monicalloydzeb [facility] Medical 02/23/2020 12:00:00 AM EST [place] ([facility]) Karina Houston, GIVING OFFICER-R: [address] , [place] [address], Ph. Attender: Karina Houston [facility] Medical 02/23/2020 12:00:00 AM EST [place] ([facility]) Karina Monicalloydzeb, GIVING OFFICER-R: [address] [place] [address], Ph. Attender: Karina Houston [facility] Medical 02/23/2020 12:00:00 AM EST [place] ([facility]) Karina Monicalloydzeb, GIVING OFFICER-R: [address] [place] [address], Ph. Attender: Karina Conrad [facility] Medical 02/23/2020 12:00:00 AM EST [place] ([facility]) Karina Monicalloydzeb, GIVING OFFICER-R: [address] [place] [address], Ph. Attender: Karina Conrad [facility] Medical 02/23/2020 12:00:00 AM EST [place] ([facility]) Karina Houston, GIVING OFFICER-R: [address] [place] [address], Ph. Attender: Karina Conrad [facility] Medical 02/17/2020 12:00:00 AM EST [place] ([facility]) Karina Conrad, GIVING OFFICER-R: [address] , [place] [address], Ph. Attender: Karina Monicalloydzeb [facility] Medical 02/17/2020 12:00:00 AM EST [place] ([facility]) Karina Conrad, GIVING OFFICER-R: [address] , [place] [address], Ph. Attender: Karina Monicalloydzeb [facility] Medical 02/17/2020 12:00:00 AM EST [place] ([facility]) Karina Monicalloydzeb, GIVING OFFICER-R: [address] [place] [address], Ph. Attender: Karina Lathamcaridadlloydzeb [facility] Medical 02/17/2020 12:00:00 AM EST [place] ([facility]) Karina Conrad, GIVING OFFICER-R: [address] [place] [address], Ph. Attender: Karina Monicalloydzeb [facility] Medical 02/17/2020 12:00:00 AM EST [place] ([facility]) Karina Granadozeb, GIVING OFFICER-R: [address] [place] [address], Ph. Attender: Karina Monicalloydzeb [facility] Medical 02/17/2020 12:00:00 AM EST [place] ([facility]) Karina Monicalloydzeb, GIVING OFFICER-R: [address] , [place] [address], Ph. Attender: Karina Turcaridadlloydzeb [facility] Medical 02/17/2020 12:00:00 AM EST [place] ([facility]) Karina Conrad, GIVING OFFICER-R: [address] , [place] [address], Ph. Attender: Karina Yeisonalberzeb [facility] Medical 02/17/2020 12:00:00 AM EST [place] ([facility]) aKrina Granadozeb, GIVING OFFICER-R: [address] , [place] [address], Ph. Attender: Karina Monicalloydzeb [facility] Medical 02/17/2020 12:00:00 AM EST [place] ([facility]) Karina Monicalloydzeb, GIVING OFFICER-R: [address] [place] [address], Ph. Attender: Karina Monicalloydzeb [facility] Medical 02/17/2020 12:00:00 AM EST [place] ([facility]) Karina Conrad, GIVING OFFICER-R: [address] [place] [address], Ph. Attender: Karina Monicalloydzeb [facility] Medical 02/17/2020 12:00:00 AM EST [place] ([facility]) Karina Monicalloydzeb, GIVING OFFICER-R: [address] , [place] [address], Ph. Attender: Karina Monicalloydzeb [facility] Medical 02/17/2020 12:00:00 AM EST [place] ([facility]) Karina Houston, GIVING OFFICER-R: [address] , [place] [address], Ph. Attender: Karina Lathamcaridadlloydzeb [facility] Medical 02/17/2020 12:00:00 AM EST [place] ([facility]) Karina Conrad, GIVING OFFICER-R: [address] [place] [address], Ph. Attender: Karina Granadoo [facility] Medical 02/17/2020 12:00:00 AM EST [place] ([facility]) Karina Conrad, GIVING OFFICER-R: [address] [place] [address], Ph. Attender: Karina Granadozeb [facility] Medical 02/17/2020 12:00:00 AM EST [place] ([facility]) Karina Granadoo, GIVING OFFICER-R: [address] [place] [address], Ph. Attender: Karina Monicalloydo [facility] Medical 02/17/2020 12:00:00 AM EST [place] ([facility]) Karina Granadozeb, GIVING OFFICER-R: [address] [place] [address], Ph. Attender: Karina Monicalloydo [facility] Medical 02/17/2020 12:00:00 AM EST [place] ([facility]) Karina Monicalloydo, GIVING OFFICER-R: [address] [place] [address], Ph. Attender: Karina Monicalloydo [facility] Medical 02/17/2020 12:00:00 AM EST [place] ([facility]) Karina Houston, GIVING OFFICER-R: [address] , [place] [address], Ph. Attender: Karina Conrad [facility] Medical 02/17/2020 12:00:00 AM EST [place] ([facility]) Karina Conrad, GIVING OFFICER-R: [address] [place] [address], Ph. Attender: Karina Conrad [facility] Medical 02/17/2020 12:00:00 AM EST [place] ([facility]) Karina Conrad, GIVING OFFICER-R: [address] [place] [address], Ph. Attender: Karina Lathamcaridadlolydzeb [facility] Medical 02/17/2020 12:00:00 AM EST [place] ([facility]) Karina Conrad, GIVING OFFICER-R: [address] [place] [address], Ph. Attender: Karina Lathamcaridadpiero [facility] Medical 02/17/2020 12:00:00 AM EST [place] ([facility]) Karina Conrad, GIVING OFFICER-R: [address] [place] [address], Ph. Attender: Karina Conrad [facility] Medical 02/17/2020 12:00:00 AM EST [place] ([facility]) Outpatient Attender: Deb TARANGO 02/10/2020 09:06:01 AM EDT [facility] Karina Conrad, GIVING OFFICER-R: [address] [place] [address], Ph. Attender: Karina Monicalloydzeb [facility] Medical 02/10/2020 12:00:00 AM EDT [place] ([facility]) Karina Conrad, GIVING OFFICER-R: [address] [place] [address], Ph. Attender: Karina Conrad [facility] Medical 02/10/2020 12:00:00 AM EDT [place] ([facility]) Karina Conrad, GIVING OFFICER-R: [address] , [place] [address], Ph. Attender: Karina Monicapiero [facility] Medical 02/10/2020 12:00:00 AM EDT [place] ([facility]) Karina Conrad, GIVING OFFICER-R: [address] [place] [address], Ph. Attender: Karina Monicapiero [facility] Medical 02/10/2020 12:00:00 AM EDT [place] ([facility]) Karina Lathamcaridadpiero, GIVING OFFICER-R: [address] [place] [address], Ph. Attender: Karina Monicalloydzeb [facility] Medical 02/10/2020 12:00:00 AM EDT [facility]) Karina Monicallyodzeb, GIVING OFFICER-R: [address] [place] [address], Ph. Attender: Karina Monicalloydzeb [facility] Medical 02/10/2020 12:00:00 AM EDT [place] ([facility]) Karina Houston, GIVING OFFICER-R: [address] [place] [address], Ph. Attender: Karina Monicalloydzeb [facility] Medical 02/10/2020 12:00:00 AM EDT [place] ([facility]) Karina Conrad, GIVING OFFICER-R: [address] , [place] [address], Ph. Attender: Karina Conrad [facility] Medical 02/10/2020 12:00:00 AM EDT [place] ([facility]) Karina Conrad, GIVING OFFICER-R: [address] , [place] [address], Ph. Attender: Karina Lathamcaridadpiero [facility] Medical 02/10/2020 12:00:00 AM EDT [place] ([facility]) Karina Monicalloydzeb, GIVING OFFICER-R: [address] [place] [address], Ph. Attender: Karina Lathamcaridadlloydzeb [facility] Medical 02/10/2020 12:00:00 AM EDT [place] ([facility]) Karina Lathamcaridadpiero, GIVING OFFICER-R: [address] [place] [address], Ph. Attender: Karina Monicalloydzeb [facility] Medical 02/10/2020 12:00:00 AM EDT [place] ([facility]) Karina Monicalloydzeb, GIVING OFFICER-R: [address] [place] [address], Ph. Attender: Karina Monicalloydzeb [facility] Medical 02/10/2020 12:00:00 AM EDT [place] ([facility]) Karina Houston, GIVING OFFICER-R: [address] , [place] [address], Ph. Attender: Karina Conrad [facility] Medical 02/10/2020 12:00:00 AM EDT [place] ([facility]) Karina Conrad, GIVING OFFICER-R: [address] [place] [address], Ph. Attender: Karina Conrad [facility] Medical 02/10/2020 12:00:00 AM EDT [place] ([facility]) Karina Conrad, GIVING OFFICER-R: [address] , [place] [address], Ph. Attender: Karina Conrad [facility] Medical 02/10/2020 12:00:00 AM EDT [place] ([facility]) Karina Conrad, GIVING OFFICER-R: [address] [place] [address], Ph. Attender: Karina Conrad [facility] Medical 02/10/2020 12:00:00 AM EDT [place] ([facility]) Karina Conrad, GIVING OFFICER-R: [address] [place] [address], Ph. Attender: Karina Conrad [facility] Medical 02/10/2020 12:00:00 AM EDT [place] ([facility]) Karina Lathamcaridadpiero, GIVING OFFICER-R: [address] [place] [address], Ph. Attender: Karina Conrad [facility] Medical 02/10/2020 12:00:00 AM EDT [place] ([facility]) Karina Houston, GIVING OFFICER-R: [address] , [place] [address], Ph. Attender: Karina Conrad [facility] Medical 02/10/2020 12:00:00 AM EDT [place] ([facility]) Karina Conrad, GIVING OFFICER-R: [address] [place] [address], Ph. Attender: Karina Conrad [facility] Medical 02/10/2020 12:00:00 AM EDT [place] ([facility]) Karina Lathamcaridadpiero, GIVING OFFICER-R: [address] [place] [address], Ph. Attender: Karina Monicalloydzeb [facility] Medical 02/10/2020 12:00:00 AM EDT [facility] ([facility]) Karina Lathamcaridadpiero, GIVING OFFICER-R: [address] [place] [address], Ph. Attender: Karina Lathamcaridadpiero [facility] Medical 02/10/2020 12:00:00 AM EDT [facility] ([facility]) Karina Lathamcaridadlloydzeb, GIVING OFFICER-R: [address] [place] [address], Ph. Attender: Karina Lathamcaridadpiero [facility] Medical 02/10/2020 12:00:00 AM EDT [place] ([facility]) Karina Monicalloydzeb, GIVING OFFICER-R: [address] [place] [address], Ph. Attender: Karina Houston [facility] Medical 02/10/2020 12:00:00 AM EDT [place] ([facility]) Outpatient Attender: Deb RIOS FP 01/27/2020 08:01:01 PM EDT [facility] Outpatient Attender: Deb RIOS FP 01/27/2020 09:01:00 AM EDT [facility] Outpatient Attender: Deb RIOS FP 01/26/2020 12:24:01 PM EDT [facility] Outpatient Attender: RAVINDRA AU [facility] FP 01/26/2020 12:23:01 PM EDT [facility] Outpatient Attender: Deb RIOS FP 01/20/2020 08:01:02 PM EDT [facility] Outpatient Attender: Deb RIOS FP 01/20/2020 10:13:02 AM EDT [facility] Outpatient Attender: Deb RIOS FP 01/20/2020 08:56:01 AM EDT [facility] Outpatient Attender: Deb RIOS FP 01/12/2020 08:01:02 PM EDT [facility] Outpatient Attender: Deb RIOS FP 01/05/2020 08:01:04 PM EDT [facility] Outpatient Attender: Deb RIOS FP 01/05/2020 11:12:00 AM EDT [facility] Outpatient Attender: Deb RIOS FP 01/05/2020 10:03:01 AM EDT [facility] Outpatient Attender: Deb RIOS FP 12/29/2019 08:01:01 PM EDT [facility] Outpatient Attender: Deb RIOS FP 12/29/2019 09:49:00 AM EDT [facility] Outpatient Attender: RAVINDRA [facility] FP 12/27/2019 01:17:11 PM EDT [facility] Outpatient Attender: Deb RIOS FP 12/22/2019 08:01:01 PM EDT [facility] Outpatient Attender: Deb RIOS FP 12/22/2019 09:00:00 AM EDT [facility] Outpatient Attender: Deb RIOS FP 12/15/2019 08:01:03 PM EDT [facility] Outpatient Attender: Deb RIOS FP 12/14/2019 07:28:02 AM EDT [facility] Outpatient Attender: RAVINDRA TAY FP 12/13/2019 03:15:01 PM EDT [facility] Outpatient Attender: Deb RIOS FP 12/07/2019 02:07:01 PM EDT [facility] Outpatient Attender: PAVAN BROWNE FP 12/07/2019 10:22:00 AM EDT [facility] Outpatient Attender: PAVAN BROWNE FP 12/01/2019 08:01:04 PM EDT [facility] Outpatient Attender: PAVAN BROWNE FP 11/30/2019 11:53:01 AM EDT [facility] Outpatient Attender: PAVAN BROWNE FP 11/24/2019 08:01:02 PM EDT [facility] Outpatient Attender: PAVAN BROWNE FP 11/24/2019 04:46:01 PM EDT [facility] Outpatient Attender: Tatyana LEONE FP 11/24/2019 11: 48:03 AM EDT [facility] Outpatient Attender: PAVAN BROWNE FP 11/24/2019 10:43:01 AM EDT [facility] Outpatient Attender: Tatyana LEONE FP 11/18/2019 03: 05:01 PM EDT [facility] Outpatient Attender: PAVAN BROWNE FP 11/17/2019 08:01:02 PM EDT [facility] Outpatient Attender: PAVAN BROWNE FP 11/17/2019 11:13:00 AM EDT [facility] Outpatient Attender: PAVAN BROWNE FP 11/15/2019 11:43:00 AM EDT [facility] Outpatient Attender: PAVAN BROWNE FP 11/11/2019 08:01:03 PM EDT [facility] Outpatient Attender: PAVAN BROWNE FP 11/11/2019 03:43:00 PM EDT [facility] Outpatient Attender: PAVAN BROWNE FP 11/03/2019 08:01:02 PM EDT [facility] Outpatient Attender: PAVAN BROWNE FP 11/03/2019 02:49:00 PM EDT [facility] Outpatient Attender: Tatyana BROWNE-BC FP 11/03/2019 11: 49:01 AM EDT [facility] Outpatient Attender: PAVAN BROWNE FP 11/03/2019 10:13:01 AM EDT [facility] Outpatient Attender: PAVAN BROWNE FP 11/03/2019 09:25:00 AM EDT [facility] Outpatient Attender: PAVAN HALEP FP 11/02/2019 11:24:02 AM EDT [facility] Outpatient Attender: Tatyana Josue BROWNE-BC FP 11/02/2019 11: 23:00 AM EDT [facility] Outpatient Attender: Tatyana Josue GOODBC FP 11/02/2019 10: 47:00 AM EDT [facility] Outpatient Attender: PAVAN HALEP FP 11/01/2019 11:45:00 AM EDT [facility] Outpatient Attender: PAVAN BROWNE FP 11/01/2019 09:45:01 AM EDT [facility] Outpatient Attender: PAVAN HALEP FP 10/13/2019 08:01:01 PM EDT [facility] Outpatient Attender: PAVAN HALEP FP 10/12/2019 03:02:17 PM EDT [facility] Outpatient Attender: PAVAN BROWNE FP 10/06/2019 08:01:04 PM EDT [facility] Outpatient Attender: PAVAN BROWNE FP 10/06/2019 10:03:00 AM EDT [facility] Outpatient Attender: PAVAN BROWNE FP 09/29/2019 08:01:02 PM EDT [facility] Outpatient Attender: PAVAN BROWNE FP 09/29/2019 10:52:00 AM EDT [facility] Outpatient Attender: PAVAN BROWNE FP 09/23/2019 11:27:01 AM EDT [facility] Outpatient Attender: PAVAN BROWNE FP 09/22/2019 08:01:03 PM EDT [facility] Outpatient Attender: PAVAN BROWNE FP 09/15/2019 08:01:01 PM EDT [facility] Outpatient Attender: PAVAN BROWNE FP 09/15/2019 03:55:00 PM EDT [facility] Outpatient Attender: PAVAN BROWNE FP 09/15/2019 02:47:00 PM EDT [facility] Outpatient Attender: PAVAN BROWNE FP 09/13/2019 02:48:00 PM EDT [facility] Outpatient Attender: PAVAN BROWNE FP 09/09/2019 09:03:01 AM EDT [facility] Outpatient Attender: Tatyana Josue BROWNE-BC FP 09/09/2019 08: 05:00 AM EDT [facility] Outpatient Attender: PAVAN BROWNE FP 09/08/2019 08:01:00 PM EDT [facility] Outpatient Attender: Tatyana Josue GOODBC FP 09/06/2019 11: 28:00 PM EDT [facility] Outpatient Attender: PAVAN BROWNE FP 09/06/2019 11:28:00 PM EDT [facility] Outpatient Attender: PAVAN BROWNE FP 09/03/2019 09:34:00 AM EDT [facility] Outpatient Attender: PAVAN BROWNE FP 09/01/2019 08:01:04 PM EDT [facility] Outpatient Attender: PAVAN HALEP FP 09/01/2019 02:57:01 PM EDT [facility] Outpatient Attender: PAVAN HALEP FP 08/30/2019 01:39:36 PM EDT [facility] Outpatient Attender: PAVAN BROWNE FP 08/25/2019 08:01:01 PM EDT [facility] Outpatient Attender: PAVAN BROWNE FP 08/18/2019 08:01:04 PM EDT [facility] Outpatient Attender: PAVAN BROWNE FP 08/18/2019 11:47:00 AM EDT [facility] Outpatient Attender: PAVAN BROWNE FP 08/16/2019 03:45:00 PM EDT [facility] Outpatient Attender: DOC GOULD MD FP 08/12/2019 08:01:01 P M EDT [facility] Outpatient Attender: DOC GOULD MD FP 08/12/2019 12:28:00 P M EDT [facility] Outpatient Attender: DOC GOULD MD FP 08/09/2019 02:27:02 P M EDT [facility] Outpatient Attender: DOC GOULD MD FP 08/05/2019 08:01:01 P M EDT [facility] Outpatient Attender: DOC GOULD MD FP 08/02/2019 05:14:00 P M [facility] Outpatient Attender: DOC GOULD MD 07/29/2019 08:01:01 P M [facility] Outpatient Attender: DOC GOULD MD 07/15/2019 08:01:04 P M [facility] Outpatient Attender: DOC GOULD MD 07/15/2019 10:55:00 A M [facility] Outpatient Attender: DOC GOULD MD 07/09/2019 01:50:00 P [facility] Outpatient Attender: DOC GOULD MD 06/30/2019 08:01:01 P [facility] Outpatient Attender: DOC GOULD MD 06/30/2019 10:51:01 A M [facility] Outpatient Attender: DOC GOULD MD 06/28/2019 03:06:00 P [facility] Outpatient Attender: DOC GOULD MD 06/27/2019 03:46:00 P [facility] Outpatient Attender: DOC GOULD MD 06/23/2019 07:27:59 P [facility] Outpatient Attender: DOC GOULD MD 06/21/2019 03:11:00 P [facility] Outpatient Attender: DOC GOULD MD 06/21/2019 01:59:01 P [facility] Outpatient Attender: DOC GOULD MD 06/21/2019 01:58:00 P [facility] Outpatient Attender: DOC GOULD MD 06/11/2019 02:43:01 P [facility] Outpatient Referrer: Doc Juarez MD 06/11/2019 01:18:00 P [facility] Outpatient Attender: DOC GOULD MD 06/10/2019 11:00:09 A [facility] Outpatient Attender: DOC GOULD MD 06/09/2019 04:23:00 P [facility] Outpatient Attender: DOC GOULD MD 06/09/2019 04:22:01 P [facility] Outpatient Attender: DOC GOULD MD 06/08/2019 08:01:05 P [facility] Outpatient Attender: DOC GOULD MD 06/08/2019 10:13:01 A [facility] Outpatient Attender: DOC GOULD MD 06/07/2019 08:01:06 P [facility] Outpatient Attender: DOC GOULD MD 06/03/2019 08:01:01 P [facility] Outpatient Attender: DOC GOULD MD 06/03/2019 09:40:32 A [facility] Outpatient Attender: DOC GOULD MD 06/02/2019 01:07:00 P [facility] Outpatient Attender: DOC GOULD MD 06/02/2019 12:36:00 P [facility] Outpatient Attender: DOC GOULD MD 06/02/2019 12:03:00 P [facility] Outpatient Attender: DOC GOULD MD 06/01/2019 08:01:01 P [facility] Outpatient Attender: DOC GOULD MD 06/01/2019 04:10:01 P [facility] Outpatient Attender: DOC GOULD MD 06/01/2019 04:02:04 P [facility] Outpatient Attender: DOC GOULD MD 06/01/2019 04:02:02 P [facility] Outpatient Attender: DOC GOULD MD 06/01/2019 03:30:00 P [facility] Outpatient Attender: DOC GOULD MD 05/28/2019 05:22:01 P [facility] Outpatient Attender: DOC GOULD MD 05/28/2019 09:26:39 A [facility] Outpatient Attender: DOC GOULD MD 05/28/2019 09:17:12 A [facility] Outpatient Attender: DOC GOULD MD 05/26/2019 08:01:01 P [facility] Outpatient Attender: DOC GOULD MD 05/26/2019 06:27:00 P [facility] Outpatient Attender: ODC GOULD MD 05/21/2019 11:47:01 A [facility] Outpatient Attender: DOC GOULD MD FP 05/20/2019 10:14:41 A [facility] Outpatient Attender: DOC GOULD MD FP 05/19/2019 08:01:04 P [facility] Outpatient Attender: DOC GOULD MD FP 05/19/2019 01:44:00 P [facility] Outpatient Attender: DOC GOULD MD FP 05/11/2019 01:11:00 P [facility] Outpatient Attender: DOC GOULD MD FP 05/05/2019 08:01:05 P [facility] Outpatient Attender: DOC GOULD MD FP 05/05/2019 08:45:02 A [facility] Outpatient Attender: DOC GOULD MD FP 05/03/2019 03:34:01 P [facility] Outpatient Attender: DOC GOULD MD FP 04/28/2019 08:01:06 P [facility] Outpatient Attender: DOC GOULD MD FP 04/28/2019 12:20:00 P [facility] Outpatient Attender: DOC GOULD MD FP 04/28/2019 10:46:01 A [facility] Outpatient Attender: DOC GOULD MD FP 04/27/2019 04:36:02 P [facility] Outpatient Attender: DOC GOULD MD FP 04/27/2019 04:35:00 P [facility] Outpatient Attender: DOC GOULD MD FP 04/27/2019 04:31:01 P [facility] Outpatient Attender: DOC GOULD MD FP 04/27/2019 04:04:00 P [facility] Outpatient Attender: DOC GOULD MD FP 04/27/2019 03:19:00 P [facility] Outpatient Attender: DOC GOULD MD FP 04/21/2019 08:01:01 P [facility] Outpatient Attender: DOC GOULD MD FP 04/21/2019 03:04:00 P [facility] Outpatient Attender: DOC GOULD MD FP 04/21/2019 02:29:01 P [facility] Outpatient Attender: DOC GOULD MD 04/21/2019 02:28:00 P [facility] Outpatient Attender: DOC GOULD MD 04/21/2019 02:27:01 P [facility] Outpatient Attender: DOC GOULD MD 04/19/2019 08:29:00 A [facility] Outpatient Attender: DOC GOULD MD 2019 09:01:04 P [facility] Medications Medication Brand Name Start Date Product Form Dose Route Admi nistrative Instructions Pharmacy Instructions Status Indications Reaction Description Data Source(s) Trazodone Hydrochloride 150 MG Oral Tabl et trazodone 150 mg tablet Take 1 tablet every day by oral route at dinner for 30 days. trazodone 150 mg tablet Take 1 tablet every day by oral route at dinner for 30 days. 05/15/2020 12:00:00 AM EST 1 completed trazodone hydr ochloride 150 MG Oral Tablet [facility]) Trazodone Hydrochloride 150 MG Oral Tabl et trazodone 150 mg tablet Take 1 tablet every day by oral route at dinner for 30 days. trazodone 150 mg tablet Take 1 tablet every day by oral route at dinner for 30 days. 05/15/2020 12:00:00 AM EST 1 completed trazodone hydr ochloride 150 MG Oral Tablet [facility] ([facility]) Trazodone Hydrochloride 150 MG Oral Tabl et trazodone 150 mg tablet Take 1 tablet every day by oral route at dinner for 30 days. trazodone 150 mg tablet Take 1 tablet every day by oral route at dinner for 30 days. 05/15/2020 12:00:00 AM EST 1 completed trazodone hydr ochloride 150 MG Oral Tablet [facility] ([facility]) quetiapine 300 MG Oral Tablet QUETIAPINE FUMARATE 02/12/2020 12: 00:00 AM EDT tablet 30 TAKE ONE TABLET BY MOUTH AT BEDT COLIN TAKE ONE TABLET BY MOUTH AT BEDTIME SOLD: 02/13/2020 [facility] 100 mg 01/29/2020 12:00:00 AM EDT tablet 30 TAKE ONE TABLET BY MOUTH EVERY DAY TAKE ONE TABLET BY MOUTH EVERY DAY SOLD: 02/04/2020 [facility] quetiapine 300 MG Oral Tablet QUETIAPINE FUMARATE 01/20/2020 12: 00:00 AM EDT tablet 30 TAKE ONE TABLET BY MOUTH EVERY D AY AT BEDTIME TAKE ONE TABLET BY MOUTH EVERY DAY AT BEDTIME SOLD: 01/24/2020 [facility] 100 mg 01/06/2020 12:00:00 AM EDT tablet 30 TAKE ONE TABLET BY MOUTH EVERY DAY TAKE ONE TABLET BY MOUTH EVERY DAY SOLD: 01/14/2020 [facility] 300 mg 12/27/2019 12:00:00 AM EDT tablet 30 TAKE ONE TABLET BY MOUTH AT BEDTIME TAKE ONE TABLET BY MOUTH AT BEDTIME SOLD: 12/27/2019 [facility] 600 mg 12/27/2019 12:00:00 AM EDT tablet 30 TAKE ONE TABLET BY MOUTH AT BEDTIME TAKE ONE TABLET BY MOUTH AT BEDTIME SOLD: 03/07/2020 [facility] 600 mg 12/27/2019 12:00:00 AM EDT tablet 30 TAKE ONE TABLET BY MOUTH AT BEDTIME TAKE ONE TABLET BY MOUTH AT BEDTIME SOLD: 02/06/2020 [facility] 600 mg 12/27/2019 12:00:00 AM EDT tablet 30 TAKE ONE TABLET BY MOUTH AT BEDTIME TAKE ONE TABLET BY MOUTH AT BEDTIME SOLD: 12/27/2019 [facility] 50 mg 11/09/2019 12:00:00 AM EDT tablet 30 TAKE ONE TABLET BY MOUTH AT BEDTIME TAKE ONE TABLET BY MOUTH AT BEDTIME SOLD: 02/13/2020 [facility] 50 mg 11/09/2019 12:00:00 AM EDT tablet 30 TAKE ONE TABLET BY MOUTH AT BEDTIME TAKE ONE TABLET BY MOUTH AT BEDTIME SOLD: 12/14/2019 [facility] 100 mg 11/09/2019 12:00:00 AM EDT tablet 30 TAKE ONE TABLET BY MOUTH EVERY DAY TAKE ONE TABLET BY MOUTH EVERY DAY SOLD: 11/14/2019 [facility] 50 mg 11/09/2019 12:00:00 AM EDT tablet 30 TAKE ONE TABLET BY MOUTH AT BEDTIME TAKE ONE TABLET BY MOUTH AT BEDTIME SOLD: 11/14/2019 [facility] 50 mg 11/09/2019 12:00:00 AM EDT tablet 30 TAKE ONE TABLET BY MOUTH AT BEDTIME TAKE ONE TABLET BY MOUTH AT BEDTIME SOLD: 01/14/2020 [facility] 100 mg 11/09/2019 12:00:00 AM EDT tablet 30 TAKE ONE TABLET BY MOUTH EVERY DAY TAKE ONE TABLET BY MOUTH EVERY DAY SOLD: 12/14/2019 [facility] quetiapine 300 MG Oral Tablet QUETIAPINE FUMARATE 11/09/2019 12: 00:00 AM EDT tablet 30 TAKE ONE TABLET BY MOUTH AT BEDT COLIN TAKE ONE TABLET BY MOUTH AT BEDTIME SOLD: 11/14/2019 [facility] quetiapine 300 MG Oral Tablet QUETIAPINE FUMARATE 09/30/2019 12: 00:00 AM EDT tablet 30 TAKE ONE TABLET BY MOUTH AT BEDT COLIN TAKE ONE TABLET BY MOUTH AT BEDTIME SOLD: 10/06/2019 [facility] 600 mg 09/24/2019 12:00:00 AM EDT tablet 30 TAKE ONE TABLET BY MOUTH AT BEDTIME TAKE ONE TABLET BY MOUTH AT BEDTIME SOLD: 12/05/2019 [facility] 600 mg 09/24/2019 12:00:00 AM EDT tablet 30 TAKE ONE TABLET BY MOUTH AT BEDTIME TAKE ONE TABLET BY MOUTH AT BEDTIME SOLD: 10/06/2019 [facility] 600 mg 09/24/2019 12:00:00 AM EDT tablet 30 TAKE ONE TABLET BY MOUTH AT BEDTIME TAKE ONE TABLET BY MOUTH AT BEDTIME SOLD: 11/02/2019 [facility] 50 mg 09/14/2019 12:00:00 AM EDT tablet 30 TAKE ONE AND 1/2 TABLET BY MOUTH EVERY DAY TAKE ONE AND 1/2 TABLET BY MOUTH EVERY DAY SOLD: 10/13/2019 [facility] 50 mg 09/14/2019 12:00:00 AM EDT tablet 30 TAKE ONE AND 1/2 TABLET BY MOUTH EVERY DAY TAKE ONE AND 1/2 TABLET BY MOUTH EVERY DAY SOLD: 11/02/2019 [facility] 50 mg 09/14/2019 12:00:00 AM EDT tablet 30 TAKE ONE TABLET BY MOUTH AT BEDTIME TAKE ONE TABLET BY MOUTH AT BEDTIME SOLD: 10/13/2019 [facility] 50 mg 09/14/2019 12:00:00 AM EDT tablet 30 TAKE ONE AND 1/2 TABLET BY MOUTH EVERY DAY TAKE ONE AND 1/2 TABLET BY MOUTH EVERY DAY SOLD: 09/14/2019 [facility] 50 mg 09/14/2019 12:00:00 AM EDT tablet 30 TAKE ONE TABLET BY MOUTH AT BEDTIME TAKE ONE TABLET BY MOUTH AT BEDTIME SOLD: 09/14/2019 [facility] quetiapine 300 MG Oral Tablet QUETIAPINE FUMARATE 09/09/2019 12: 00:00 AM EDT tablet 30 TAKE ONE TABLET BY MOUTH AT BEDT COLIN TAKE ONE TABLET BY MOUTH AT BEDTIME SOLD: 09/14/2019 [facility] quetiapine 300 MG Oral Tablet QUETIAPINE FUMARATE 08/19/2019 12: 00:00 AM EDT tablet 30 TAKE ONE TABLET BY MOUTH AT BEDT COLIN TAKE ONE TABLET BY MOUTH AT BEDTIME SOLD: 08/26/2019 [facility] quetiapine 300 MG Oral Tablet QUETIAPINE FUMARATE 07/30/2019 12: 00:00 AM EDT tablet 30 TAKE ONE TABLET BY MOUTH AT BEDT COLIN TAKE ONE TABLET BY MOUTH AT BEDTIME SOLD: 07/30/2019 [facility] 50 mg 07/15/2019 12:00:00 AM EDT tablet 30 TAKE ONE AND ONE-HALF TABLETS BY MOUTH EVERY DAY TAKE ONE AND ONE-HALF TABLETS BY MOUTH EVERY DAY SOLD: 07/21/2019 [facility] 50 mg 07/15/2019 12:00:00 AM EDT tablet 30 TAKE ONE AND ONE-HALF TABLETS BY MOUTH EVERY DAY TAKE ONE AND ONE-HALF TABLETS BY MOUTH EVERY DAY SOLD: 08/30/2019 [facility] 50 mg 07/15/2019 12:00:00 AM EDT tablet 30 TAKE ONE AND ONE-HALF TABLETS BY MOUTH EVERY DAY TAKE ONE AND ONE-HALF TABLETS BY MOUTH EVERY DAY SOLD: 08/10/2019 [facility] 600 mg 07/06/2019 12:00:00 AM EDT tablet 30 TAKE ONE TABLET BY MOUTH AT BEDTIME TAKE ONE TABLET BY MOUTH AT BEDTIME SOLD: 08/05/2019 [facility] 50 mg 07/06/2019 12:00:00 AM EDT tablet 30 TAKE ONE TABLET BY MOUTH AT BEDTIME TAKE ONE TABLET BY MOUTH AT BEDTIME SOLD: 08/05/2019 [facility] 15 mg 07/06/2019 12:00:00 AM EDT tablet 30 TAKE ONE TABLET BY MOUTH AT BEDTIME TAKE ONE TABLET BY MOUTH AT BEDTIME SOLD: 07/08/2019 [facility] 600 mg 07/06/2019 12:00:00 AM EDT tablet 30 TAKE ONE TABLET BY MOUTH AT BEDTIME TAKE ONE TABLET BY MOUTH AT BEDTIME SOLD: 07/08/2019 [facility] 50 mg 07/06/2019 12:00:00 AM EDT tablet 30 TAKE ONE TABLET BY MOUTH AT BEDTIME TAKE ONE TABLET BY MOUTH AT BEDTIME SOLD: 07/08/2019 [facility] 600 mg 07/06/2019 12:00:00 AM EDT tablet 30 TAKE ONE TABLET BY MOUTH AT BEDTIME TAKE ONE TABLET BY MOUTH AT BEDTIME SOLD: 09/03/2019 [facility] 50 mg 06/03/2019 12:00:00 AM EST tablet 30 TAKE ONE AND ONE-HALF TABLETS BY MOUTH EVERY DAY TAKE ONE AND ONE-HALF TABLETS BY MOUTH EVERY DAY SOLD: 06/07/2019 [facility] 50 mg 06/03/2019 12:00:00 AM EST tablet 30 TAKE ONE AND ONE-HALF TABLETS BY MOUTH EVERY DAY TAKE ONE AND ONE-HALF TABLETS BY MOUTH EVERY DAY SOLD: 07/01/2019 [facility] 50 mg 05/21/2019 12:00:00 AM EST tablet 30 TAKE ONE AND ONE-HALF TABLETS BY MOUTH EVERY DAY TAKE ONE AND ONE-HALF TABLETS BY MOUTH EVERY DAY SOLD: 05/24/2019 [facility] 15 mg 05/12/2019 12:00:00 AM EST tablet 30 TAKE ONE TABLET BY MOUTH AT BEDTIME TAKE ONE TABLET BY MOUTH AT BEDTIME SOLD: 06/11/2019 [facility] 15 mg 05/12/2019 12:00:00 AM EST tablet 30 TAKE ONE TABLET BY MOUTH AT BEDTIME TAKE ONE TABLET BY MOUTH AT BEDTIME SOLD: 05/13/2019 [facility] 600 mg 05/04/2019 12:00:00 AM EST tablet 30 TAKE ONE TABLET BY MOUTH AT BEDTIME TAKE ONE TABLET BY MOUTH AT BEDTIME SOLD: 05/10/2019 [facility] 50 mg 05/04/2019 12:00:00 AM EST tablet 30 TAKE ONE TABLET BY MOUTH AT BEDTIME TAKE ONE TABLET BY MOUTH AT BEDTIME SOLD: 05/10/2019 [facility] 50 mg 05/04/2019 12:00:00 AM EST tablet 30 TAKE ONE TABLET BY MOUTH AT BEDTIME TAKE ONE TABLET BY MOUTH AT BEDTIME SOLD: 06/11/2019 [facility] 600 mg 05/04/2019 12:00:00 AM EST tablet 30 TAKE ONE TABLET BY MOUTH AT BEDTIME TAKE ONE TABLET BY MOUTH AT BEDTIME SOLD: 06/09/2019 [facility] 50 mg 05/03/2019 12:00:00 AM EST tablet 30 TAKE 1 AND 1/2 TABLET BY MOUTH ONCE DAILY TAKE 1 AND 1/2 TABLET BY MOUTH ONCE DAILY SOLD: 05/03/2019 [facility] 50 mg 04/10/2019 12:00:00 AM EST tablet 30 TAKE 1 TABLET BY MOUTH AT BEDTIME TAKE 1 TABLET BY MOUTH AT BEDTIME SOLD: 04/10/2019 [facility] 600 mg 04/10/2019 12:00:00 AM EST tablet 30 TAKE 1 TABLET BY MOUTH AT BEDTIME TAKE 1 TABLET BY MOUTH AT BEDTIME SOLD: 04/10/2019 [facility] 50 mg 03/19/2019 12:00:00 AM EST tablet 30 TAKE ONE AND ONE-HALF TABLETS BY MOUTH EVERY DAY TAKE ONE AND ONE-HALF TABLETS BY MOUTH EVERY DAY SOLD: 04/10/2019 [facility] 10 mg 03/18/2019 12:00:00 AM EST tablet 30 TAKE 1 TABLET BY MOUTH AT BEDTIME TAKE 1 TABLET BY MOUTH AT BEDTIME SOLD: 04/10/2019 [facility] Sertraline 50 MG Oral Tablet sertraline 50 mg tablet sertraline 50 mg tablet completed sertraline 50 MG Oral Tablet [facility]) aripiprazole 15 MG Oral Tablet aripiprazole 15 mg tabl et aripiprazole 15 mg tablet completed aripiprazole 15 MG Oral Tablet [facility]) aripiprazole 10 MG Oral Tablet aripiprazole 10 mg tabl et aripiprazole 10 mg tablet completed aripiprazole 10 MG Oral Tablet [facility]) Trazodone Hydrochloride 50 MG Oral Tablet trazodone 50 mg tablet trazodone 50 mg tablet completed trazodone hydro chloride 50 MG Oral Tablet [facility]) aripiprazole 5 MG Oral Tablet aripiprazole 5 mg tablet aripi prazole 5 mg tablet completed aripiprazole 5 MG Oral Tablet [facility]) aripiprazole 10 MG Oral Tablet aripiprazole 10 mg tabl et aripiprazole 10 mg tablet completed aripiprazole 10 MG Oral Tablet [facility]) aripiprazole 10 MG Oral Tablet aripiprazole 10 mg tabl et aripiprazole 10 mg tablet completed aripiprazole 10 MG Oral Tablet [facility]) aripiprazole 5 MG Oral Tablet aripiprazole 5 mg tablet aripi prazole 5 mg tablet completed aripiprazole 5 MG Oral Tablet [facility]) aripiprazole 10 MG Oral Tablet aripiprazole 10 mg tabl et aripiprazole 10 mg tablet completed aripiprazole 10 MG Oral Tablet [facility] ([facility]) Sertraline 100 MG Oral Tablet sertraline 100 mg tablet sertr jorge 100 mg tablet completed sertraline 100 MG Oral Tablet [facility] ([facility]) aripiprazole 5 MG Oral Tablet aripiprazole 5 mg tablet aripi prazole 5 mg tablet completed aripiprazole 5 MG Oral Tablet [facility] ([facility]) aripiprazole 5 MG Oral Tablet aripiprazole 5 mg tablet aripi prazole 5 mg tablet completed aripiprazole 5 MG Oral Tablet [facility] ([facility]) Trazodone Hydrochloride 50 MG Oral Tablet trazodone 50 mg tablet trazodone 50 mg tablet completed trazodone hydro chloride 50 MG Oral Tablet [facility] ([facility]) Sertraline 50 MG Oral Tablet sertraline 50 mg tablet sertraline 50 mg tablet completed sertraline 50 MG Oral Tablet [facility] ([facility]) aripiprazole 10 MG Oral Tablet aripiprazole 10 mg tabl et aripiprazole 10 mg tablet completed aripiprazole 10 MG Oral Tablet [facility] ([facility]) aripiprazole 10 MG Oral Tablet aripiprazole 10 mg tabl et aripiprazole 10 mg tablet completed aripiprazole 10 MG Oral Tablet [facility] ([facility]) Sertraline 50 MG Oral Tablet sertraline 50 mg tablet sertraline 50 mg tablet completed sertraline 50 MG Oral Tablet [facility] ([facility]) Trazodone Hydrochloride 50 MG Oral Tablet trazodone 50 mg tablet trazodone 50 mg tablet completed trazodone hydro chloride 50 MG Oral Tablet [facility] ([facility]) aripiprazole 15 MG Oral Tablet aripiprazole 15 mg tabl et aripiprazole 15 mg tablet completed aripiprazole 15 MG Oral Tablet [facility] ([facility]) Sertraline 50 MG Oral Tablet sertraline 50 mg tablet sertraline 50 mg tablet completed sertraline 50 MG Oral Tablet [facility] ([facility]) Sertraline 50 MG Oral Tablet sertraline 50 mg tablet sertraline 50 mg tablet completed sertraline 50 MG Oral Tablet [facility] ([facility]) aripiprazole 10 MG Oral Tablet aripiprazole 10 mg tabl et aripiprazole 10 mg tablet completed aripiprazole 10 MG Oral Tablet [facility] ([facility]) aripiprazole 5 MG Oral Tablet aripiprazole 5 mg tablet aripi prazole 5 mg tablet completed aripiprazole 5 MG Oral Tablet [facility] ([facility]) Trazodone Hydrochloride 50 MG Oral Tablet trazodone 50 mg tablet trazodone 50 mg tablet completed trazodone hydro chloride 50 MG Oral Tablet [facility] ([facility]) Sertraline 50 MG Oral Tablet sertraline 50 mg tablet sertraline 50 mg tablet completed sertraline 50 MG Oral Tablet [facility] ([facility]) aripiprazole 5 MG Oral Tablet aripiprazole 5 mg tablet aripi prazole 5 mg tablet completed aripiprazole 5 MG Oral Tablet [facility] ([facility]) aripiprazole 5 MG Oral Tablet aripiprazole 5 mg tablet aripi prazole 5 mg tablet completed aripiprazole 5 MG Oral Tablet [facility] ([facility]) aripiprazole 10 MG Oral Tablet aripiprazole 10 mg tabl et aripiprazole 10 mg tablet completed aripiprazole 10 MG Oral Tablet [facility] ([facility]) Sertraline 50 MG Oral Tablet sertraline 50 mg tablet sertraline 50 mg tablet completed sertraline 50 MG Oral Tablet [facility] ([facility]) Sertraline 50 MG Oral Tablet sertraline 50 mg tablet sertraline 50 mg tablet completed sertraline 50 MG Oral Tablet [facility] ([facility]) aripiprazole 5 MG Oral Tablet aripiprazole 5 mg tablet aripi prazole 5 mg tablet completed aripiprazole 5 MG Oral Tablet [facility] ([facility]) aripiprazole 15 MG Oral Tablet aripiprazole 15 mg tabl et aripiprazole 15 mg tablet completed aripiprazole 15 MG Oral Tablet [facility] ([facility]) Sertraline 50 MG Oral Tablet sertraline 50 mg tablet sertraline 50 mg tablet completed sertraline 50 MG Oral Tablet [facility] ([facility]) Sertraline 50 MG Oral Tablet sertraline 50 mg tablet sertraline 50 mg tablet completed sertraline 50 MG Oral Tablet [facility] ([facility]) Sertraline 50 MG Oral Tablet sertraline 50 mg tablet sertraline 50 mg tablet completed sertraline 50 MG Oral Tablet [facility] ([facility]) Sertraline 50 MG Oral Tablet sertraline 50 mg tablet sertraline 50 mg tablet completed sertraline 50 MG Oral Tablet [facility] ([facility]) aripiprazole 10 MG Oral Tablet aripiprazole 10 mg tabl et aripiprazole 10 mg tablet completed aripiprazole 10 MG Oral Tablet [facility] ([facility]) aripiprazole 5 MG Oral Tablet aripiprazole 5 mg tablet aripi prazole 5 mg tablet completed aripiprazole 5 MG Oral Tablet [facility] ([facility]) Trazodone Hydrochloride 50 MG Oral Tablet trazodone 50 mg tablet trazodone 50 mg tablet completed trazodone hydro chloride 50 MG Oral Tablet [facility] ([facility]) aripiprazole 10 MG Oral Tablet aripiprazole 10 mg tabl et aripiprazole 10 mg tablet completed aripiprazole 10 MG Oral Tablet [facility] ([facility]) aripiprazole 5 MG Oral Tablet aripiprazole 5 mg tablet aripi prazole 5 mg tablet completed aripiprazole 5 MG Oral Tablet [facility] ([facility]) aripiprazole 5 MG Oral Tablet aripiprazole 5 mg tablet aripi prazole 5 mg tablet completed aripiprazole 5 MG Oral Tablet [facility] ([facility]) aripiprazole 15 MG Oral Tablet aripiprazole 15 mg tabl et aripiprazole 15 mg tablet completed aripiprazole 15 MG Oral Tablet [facility] ([facility]) Sertraline 50 MG Oral Tablet sertraline 50 mg tablet sertraline 50 mg tablet completed sertraline 50 MG Oral Tablet [facility] ([facility]) aripiprazole 10 MG Oral Tablet aripiprazole 10 mg tabl et aripiprazole 10 mg tablet completed aripiprazole 10 MG Oral Tablet [facility] ([facility]) aripiprazole 5 MG Oral Tablet aripiprazole 5 mg tablet aripi prazole 5 mg tablet completed aripiprazole 5 MG Oral Tablet [facility] ([facility]) aripiprazole 15 MG Oral Tablet aripiprazole 15 mg tabl et aripiprazole 15 mg tablet completed aripiprazole 15 MG Oral Tablet [facility] ([facility]) aripiprazole 5 MG Oral Tablet aripiprazole 5 mg tablet aripi prazole 5 mg tablet completed aripiprazole 5 MG Oral Tablet [facility] ([facility]) aripiprazole 5 MG Oral Tablet aripiprazole 5 mg tablet aripi prazole 5 mg tablet completed aripiprazole 5 MG Oral Tablet [facility] ([facility]) aripiprazole 10 MG Oral Tablet aripiprazole 10 mg tabl et aripiprazole 10 mg tablet completed aripiprazole 10 MG Oral Tablet [facility] ([facility]) aripiprazole 5 MG Oral Tablet aripiprazole 5 mg tablet aripi prazole 5 mg tablet completed aripiprazole 5 MG Oral Tablet [facility] ([facility]) Trazodone Hydrochloride 50 MG Oral Tablet trazodone 50 mg tablet trazodone 50 mg tablet completed trazodone hydro chloride 50 MG Oral Tablet [facility] ([facility]) aripiprazole 5 MG Oral Tablet aripiprazole 5 mg tablet aripi prazole 5 mg tablet completed aripiprazole 5 MG Oral Tablet [facility] ([facility]) aripiprazole 5 MG Oral Tablet aripiprazole 5 mg tablet aripi prazole 5 mg tablet completed aripiprazole 5 MG Oral Tablet [facility]) Sertraline 50 MG Oral Tablet sertraline 50 mg tablet sertraline 50 mg tablet completed sertraline 50 MG Oral Tablet [facility] ([facility]) aripiprazole 5 MG Oral Tablet aripiprazole 5 mg tablet aripi prazole 5 mg tablet completed aripiprazole 5 MG Oral Tablet [facility] ([facility]) Trazodone Hydrochloride 50 MG Oral Tablet trazodone 50 mg tablet trazodone 50 mg tablet completed trazodone hydro chloride 50 MG Oral Tablet [facility] ([facility]) Sertraline 50 MG Oral Tablet sertraline 50 mg tablet sertraline 50 mg tablet completed sertraline 50 MG Oral Tablet [facility] ([facility]) Sertraline 50 MG Oral Tablet sertraline 50 mg tablet sertraline 50 mg tablet completed sertraline 50 MG Oral Tablet [facility] ([facility]) aripiprazole 15 MG Oral Tablet aripiprazole 15 mg tabl et aripiprazole 15 mg tablet completed aripiprazole 15 MG Oral Tablet [facility] ([facility]) aripiprazole 10 MG Oral Tablet aripiprazole 10 mg tabl et aripiprazole 10 mg tablet completed aripiprazole 10 MG Oral Tablet [facility] ([facility]) Sertraline 50 MG Oral Tablet sertraline 50 mg tablet sertraline 50 mg tablet completed sertraline 50 MG Oral Tablet [facility] ([facility]) aripiprazole 15 MG Oral Tablet aripiprazole 15 mg tabl et aripiprazole 15 mg tablet completed aripiprazole 15 MG Oral Tablet [facility] ([facility]) aripiprazole 10 MG Oral Tablet aripiprazole 10 mg tabl et aripiprazole 10 mg tablet completed aripiprazole 10 MG Oral Tablet [facility] ([facility]) aripiprazole 15 MG Oral Tablet aripiprazole 15 mg tabl et aripiprazole 15 mg tablet completed aripiprazole 15 MG Oral Tablet [facility] ([facility]) Trazodone Hydrochloride 50 MG Oral Tablet trazodone 50 mg tablet trazodone 50 mg tablet completed trazodone hydro chloride 50 MG Oral Tablet [facility] ([facility]) aripiprazole 10 MG Oral Tablet aripiprazole 10 mg tabl et aripiprazole 10 mg tablet completed aripiprazole 10 MG Oral Tablet [facility] ([facility]) aripiprazole 10 MG Oral Tablet aripiprazole 10 mg tabl et aripiprazole 10 mg tablet completed aripiprazole 10 MG Oral Tablet [facility] ([facility]) aripiprazole 10 MG Oral Tablet aripiprazole 10 mg tabl et aripiprazole 10 mg tablet completed aripiprazole 10 MG Oral Tablet [facility] ([facility]) Sertraline 50 MG Oral Tablet sertraline 50 mg tablet sertraline 50 mg tablet completed sertraline 50 MG Oral Tablet [facility] ([facility]) Trazodone Hydrochloride 50 MG Oral Tablet trazodone 50 mg tablet trazodone 50 mg tablet completed trazodone hydro chloride 50 MG Oral Tablet [facility] ([facility]) aripiprazole 10 MG Oral Tablet aripiprazole 10 mg tabl et aripiprazole 10 mg tablet completed aripiprazole 10 MG Oral Tablet [facility] ([facility]) aripiprazole 5 MG Oral Tablet aripiprazole 5 mg tablet aripi prazole 5 mg tablet completed aripiprazole 5 MG Oral Tablet [facility] ([facility]) Sertraline 50 MG Oral Tablet sertraline 50 mg tablet sertraline 50 mg tablet completed sertraline 50 MG Oral Tablet [facility] ([facility]) aripiprazole 10 MG Oral Tablet aripiprazole 10 mg tabl et aripiprazole 10 mg tablet completed aripiprazole 10 MG Oral Tablet [facility] ([facility]) aripiprazole 5 MG Oral Tablet aripiprazole 5 mg tablet aripi prazole 5 mg tablet completed aripiprazole 5 MG Oral Tablet [facility] ([facility]) aripiprazole 15 MG Oral Tablet aripiprazole 15 mg tabl et aripiprazole 15 mg tablet completed aripiprazole 15 MG Oral Tablet [facility] ([facility]) aripiprazole 15 MG Oral Tablet aripiprazole 15 mg tabl et aripiprazole 15 mg tablet completed aripiprazole 15 MG Oral Tablet [facility] ([facility]) aripiprazole 10 MG Oral Tablet aripiprazole 10 mg tabl et aripiprazole 10 mg tablet completed aripiprazole 10 MG Oral Tablet [facility] ([facility]) Trazodone Hydrochloride 50 MG Oral Tablet trazodone 50 mg tablet trazodone 50 mg tablet completed trazodone hydro chloride 50 MG Oral Tablet [facility] ([facility]) Trazodone Hydrochloride 50 MG Oral Tablet trazodone 50 mg tablet trazodone 50 mg tablet completed trazodone hydro chloride 50 MG Oral Tablet [facility] ([facility]) gabapentin 600 MG Oral Tablet gabapentin 600 mg tablet gabap entin 600 mg tablet completed gabapentin 600 MG Oral Tablet [facility] ([facility]) aripiprazole 10 MG Oral Tablet aripiprazole 10 mg tabl et aripiprazole 10 mg tablet completed aripiprazole 10 MG Oral Tablet [facility] ([facility]) Sertraline 50 MG Oral Tablet sertraline 50 mg tablet sertraline 50 mg tablet completed sertraline 50 MG Oral Tablet [facility] ([facility]) aripiprazole 5 MG Oral Tablet aripiprazole 5 mg tablet aripi prazole 5 mg tablet completed aripiprazole 5 MG Oral Tablet [facility] ([facility]) Trazodone Hydrochloride 50 MG Oral Tablet trazodone 50 mg tablet trazodone 50 mg tablet completed trazodone hydro chloride 50 MG Oral Tablet [facility] ([facility]) Sertraline 50 MG Oral Tablet sertraline 50 mg tablet sertraline 50 mg tablet completed sertraline 50 MG Oral Tablet [facility] ([facility]) aripiprazole 15 MG Oral Tablet aripiprazole 15 mg tabl et aripiprazole 15 mg tablet completed aripiprazole 15 MG Oral Tablet [facility] ([facility]) Insurance Providers Payer name Policy type / Coverage type Policy ID Covered republican ID Covered republican's relationship to sahni Policy Sahni Plan Information MEDICARE [id number] SP [id number] Medicaid S [id number] S [id number] Medicare P [id number] S [id number] EMEDNY 0000 SP [id number] [facility] [id number] SP [id number] EMED[place] [id number] SP [id number] Medicaid S [id number] Medicaid S [id number] S [id number] MEDICAID [id number] SP [id number] Wellcare P [id number] S [id number] Medicaid S [id number] S [id number] MEDICARE C [id number] S [id number] MEDICAID M [id number] [facility] O [id number] S [id number] [facility] O [id number] S [id number] Medicaid S [id number] S [id number] Managed Care - [facility] Community Plan P [id number] S [id number] Managed Care - Community Plan [employer] P [id number] S [id number] [facility] Health Maintenance Organization (HMO) [id number] Self [id number] [facility] Health Maintenance Organization (HMO) [id number] Self [id number] [facility] Health Maintenance Organization (HMO) [id number] Self [id number] [facility] Health Maintenance Organization (HMO) [id number] Self [id number] [facility] [id number] SP [id number] [facility] [id number] SP [id number] [facility] [id number] Self [id number] [facility] Commercial [id number] Self [id number] [facility] Health Maintenance Organization (HMO) [id number] Self [id number] [facility] [id number] SP [id number] SELF PAY ONLY [id number] SP [id number] [facility] [id number] SP [id number] [facility] [id number] SP [id number] Managed Care - Community Plan [employer] P [id number] S [id number] Medicaid S [id number] S [id number] Managed Care - Community Plan [facility] P [id number] S [id number] Managed Care - Community Plan [facility] P [id number] S [id number] Managed Care - Community Plan [facility] P [id number] S [id number] Managed Care - Community Plan [facility] P [id number] S [id number] [facility] [id number] SP [id number] Medicaid P [id number] S [id number] MEDICAID [id number] SP [id number] [facility] COMMUNITY PLAN MCDHMO [id number] SP [id number] [employer] [place] 140/640 [id number] [id number] [employer] BCBS B [id number] C [id number] [id number] BCBS OF [place] 306/[id number] SP [id number] UN COMMUNITY PLAN MCDO [id number] SP [id number] [facility] O [id number] S [id number] [facility] O UNAVAILABLE S UNAVAILABLE SELF PAY UNAVAILABLE SP UNAVAILA BLE Problems, Conditions, and Diagnoses Code Display Name Description Problem Type Effective Dates Data Source(s) N64.59 Other signs and symptoms in breast Sore nipple 01/26/2020 12:22:03 PM EDT [facility] N64.52 Nipple discharge Discharge from right nipple 01/26/2020 12:22:03 PM EDT [facility] [id number] Breast finding Breast Finding Problem 01/26/2020 12:00: 00 AM EDT [facility] ([facility]) 51996362 Discharge from nipple Discharge from Nipple Problem 01/26/2020 12:00:00 AM EDT [facility] ([facility]) 959685556 Breast finding Breast Finding Problem 01/26/2020 12:00: 00 AM EDT [facility] ([facility]) 41781754 Discharge from nipple Discharge from Nipple Problem 01/26/2020 12:00:00 AM EDT [facility] ([facility]) 063473873 Breast finding Breast Finding Problem 01/26/2020 12:00: 00 AM EDT [facility] ([facility]) 48010947 Discharge from nipple Discharge from Nipple Problem 01/26/2020 12:00:00 AM EDT [facility] ([facility]) 903454795 Breast finding Breast Finding Problem 01/26/2020 12:00: 00 AM EDT [facility] ([facility]) 68151843 Discharge from nipple Discharge from Nipple Problem 01/26/2020 12:00:00 AM EDT [facility] ([facility]) 182595804 Breast finding Breast Finding Problem 01/26/2020 12:00: 00 AM EDT [facility] ([facility]) 47995296 Discharge from nipple Discharge from Nipple Problem 01/26/2020 12:00:00 AM EDT [facility] ([facility]) 287043013 Breast finding Breast Finding Problem 01/26/2020 12:00: 00 AM EDT [facility] ([facility]) 52882669 Discharge from nipple Discharge from Nipple Problem 01/26/2020 12:00:00 AM EDT [facility] ([facility]) 619527462 Breast finding Breast Finding Problem 01/26/2020 12:00: 00 AM EDT [facility] ([facility]) 11064447 Discharge from nipple Discharge from Nipple Problem 01/26/2020 12:00:00 AM EDT [facility] ([facility]) 958955928 Breast finding Breast Finding Problem 01/26/2020 12:00: 00 AM EDT [facility] ([facility]) 50063917 Discharge from nipple Discharge from Nipple Problem 01/26/2020 12:00:00 AM EDT [facility] ([facility]) 503936967 Breast finding Breast Finding Problem 01/26/2020 12:00: 00 AM EDT [facility] ([facility]) 73533902 Discharge from nipple Discharge from Nipple Problem 01/26/2020 12:00:00 AM EDT [facility] ([facility]) 621038102 Breast finding Breast Finding Problem 01/26/2020 12:00: 00 AM EDT [facility] ([facility]) 43222922 Discharge from nipple Discharge from Nipple Problem 01/26/2020 12:00:00 AM EDT [facility] ([facility]) 521.00 Dental caries Dental caries 11/02/2019 11:22:30 AM EDT [facility] 719.46 Pain in unspecified knee Pain in unspecified knee 06/01/2019 04:01:41 PM EST [facility] 724.2 Low back pain Low back pain 06/01/2019 04:01:41 PM EST [facility] [id number] Unspecified lump in the right breast, up per outer quadrant Unspecified lump in the right breast, upper outer quadrant 06/01/2019 04:01:41 PM EST [facility] [id number] Finding of knee region Finding of Knee Region Problem 06/01/2019 12:00:00 AM EST [facility] ([facility]) [id number] Lump in upper outer quadrant of right br east Lump in Upper Outer Quadrant of Right Breast Problem 06/01/2019 12:00:00 AM EST [facility] ( [facility]) 846441873 Low back pain Low Back Pain Problem 06/01/2019 12:00:00 AM EST [facility] ([facility]) 015832726 Finding of knee region Finding of Knee Region Problem 06/01/2019 12:00:00 AM EST [facility] ([facility]) [id number] Lump in upper outer quadrant of right br east Lump in Upper Outer Quadrant of Right Breast Problem 06/01/2019 12:00:00 AM EST [facility] ( [facility]) [id number] Low back pain Low Back Pain Problem 06/01/2019 12:00:00 AM EST [facility] ([facility]) 745327774 Finding of knee region Finding of Knee Region Problem 06/01/2019 12:00:00 AM EST [facility] ([facility]) [id number] Lump in upper outer quadrant of right br east Lump in Upper Outer Quadrant of Right Breast Problem 06/01/2019 12:00:00 AM EST [facility] ( [facility]) 790416270 Low back pain Low Back Pain Problem 06/01/2019 12:00:00 AM EST [facility] ([facility]) 643770635 Finding of knee region Finding of Knee Region Problem 06/01/2019 12:00:00 AM EST [facility] ([facility]) [id number] Lump in upper outer quadrant of right br east Lump in Upper Outer Quadrant of Right Breast Problem 06/01/2019 12:00:00 AM EST [facility] ( [facility]) 623252847 Low back pain Low Back Pain Problem 06/01/2019 12:00:00 AM EST [facility] ([facility]) 362384534 Finding of knee region Finding of Knee Region Problem 06/01/2019 12:00:00 AM EST [facility] ([facility]) [id number] Lump in upper outer quadrant of right br east Lump in Upper Outer Quadrant of Right Breast Problem 06/01/2019 12:00:00 AM EST [facility] ( [facility]) 749006255 Low back pain Low Back Pain Problem 06/01/2019 12:00:00 AM EST [facility] ([facility]) 832706682 Finding of knee region Finding of Knee Region Problem 06/01/2019 12:00:00 AM EST [facility] ([facility]) [id number] Lump in upper outer quadrant of right br east Lump in Upper Outer Quadrant of Right Breast Problem 06/01/2019 12:00:00 AM EST [facility] ( [facility]) 023805560 Low back pain Low Back Pain Problem 06/01/2019 12:00:00 AM EST [facility] ([facility]) 595907509 Finding of knee region Finding of Knee Region Problem 06/01/2019 12:00:00 AM EST [facility] ([facility]) [id number] Lump in upper outer quadrant of right br east Lump in Upper Outer Quadrant of Right Breast Problem 06/01/2019 12:00:00 AM EST [facility] ( [facility]) 681122925 Low back pain Low Back Pain Problem 06/01/2019 12:00:00 AM EST [facility] ([facility]) 085448484 Finding of knee region Finding of Knee Region Problem 06/01/2019 12:00:00 AM EST [facility] ([facility]) [id number] Lump in upper outer quadrant of right br east Lump in Upper Outer Quadrant of Right Breast Problem 06/01/2019 12:00:00 AM EST [facility] ( [facility]) 094341752 Low back pain Low Back Pain Problem 06/01/2019 12:00:00 AM EST [facility] ([facility]) 150174747 Finding of knee region Finding of Knee Region Problem 06/01/2019 12:00:00 AM EST [facility] ([facility]) [id number] Lump in upper outer quadrant of right br east Lump in Upper Outer Quadrant of Right Breast Problem 06/01/2019 12:00:00 AM EST [facility] ( [facility]) 094702870 Low back pain Low Back Pain Problem 06/01/2019 12:00:00 AM EST [facility] ([facility]) 943057869 Finding of knee region Finding of Knee Region Problem 06/01/2019 12:00:00 AM EST [facility] ([facility]) [id number] Lump in upper outer quadrant of right br east Lump in Upper Outer Quadrant of Right Breast Problem 06/01/2019 12:00:00 AM EST [facility] ( [facility]) 037479570 Low back pain Low Back Pain Problem 06/01/2019 12:00:00 AM EST [facility] ([facility]) 907029927 Finding of knee region Finding of Knee Region Problem 06/01/2019 12:00:00 AM EST [facility] ([facility]) [id number] Lump in upper outer quadrant of right br east Lump in Upper Outer Quadrant of Right Breast Problem 06/01/2019 12:00:00 AM EST [facility] ( [facility]) 261663640 Low back pain Low Back Pain Problem 06/01/2019 12:00:00 AM EST [facility] ([facility]) 584022973 Finding of knee region Finding of Knee Region Problem 06/01/2019 12:00:00 AM EST [facility] ([facility]) [id number] Lump in upper outer quadrant of right br east Lump in Upper Outer Quadrant of Right Breast Problem 06/01/2019 12:00:00 AM EST [facility] ( [facility]) 742941401 Low back pain Low Back Pain Problem 06/01/2019 12:00:00 AM EST [facility] ([facility]) 673841363 Finding of knee region Finding of Knee Region Problem 06/01/2019 12:00:00 AM EST NAVEEN ([facility]) [id number] Lump in upper outer quadrant of right br east Lump in Upper Outer Quadrant of Right Breast Problem 06/01/2019 12:00:00 AM EST NAVEEN ( [facility]) [id number] Low back pain Low Back Pain Problem 06/01/2019 12:00:00 AM EST NAVEEN ([facility]) [id number] Finding of knee region Finding of Knee Region Problem 06/01/2019 12:00:00 AM EST NAVEEN ([facility]) [id number] Lump in upper outer quadrant of right br east Lump in Upper Outer Quadrant of Right Breast Problem 06/01/2019 12:00:00 AM EST NAVEEN ( [facility]) [id number] Low back pain Low Back Pain Problem 06/01/2019 12:00:00 AM EST NAVEEN ([facility]) [id number] Low back pain Low Back Pain Problem 06/01/2019 12:00:00 AM EST NAVEEN ([facility]) [id number] Finding of knee region Finding of Knee Region Problem 06/01/2019 12:00:00 AM EST NAVEEN ([facility]) [id number] Lump in upper outer quadrant of right br east Lump in Upper Outer Quadrant of Right Breast Problem 06/01/2019 12:00:00 AM EST NAVEEN ( [facility]) [id number] Low back pain Low Back Pain Problem 06/01/2019 12:00:00 AM EST NAVEEN ([facility]) [id number] Finding of knee region Finding of Knee Region Problem 06/01/2019 12:00:00 AM EST NAVEEN ([facility]) [id number] Lump in upper outer quadrant of right br east Lump in Upper Outer Quadrant of Right Breast Problem 06/01/2019 12:00:00 AM EST NAVEEN ( [facility]) [id number] Low back pain Low Back Pain Problem 06/01/2019 12:00:00 AM EST NAVEEN ([facility]) [id number] Finding of knee region Finding of Knee Region Problem 06/01/2019 12:00:00 AM EST NAVEEN ([facility]) [id number] Lump in upper outer quadrant of right br east Lump in Upper Outer Quadrant of Right Breast Problem 06/01/2019 12:00:00 AM EST NAVEEN ( [facility]) [id number] Low back pain Low Back Pain Problem 06/01/2019 12:00:00 AM EST NAVEEN ([facility]) [id number] Finding of knee region Finding of Knee Region Problem 06/01/2019 12:00:00 AM EST NAVEEN ([facility]) [id number] Lump in upper outer quadrant of right br east Lump in Upper Outer Quadrant of Right Breast Problem 06/01/2019 12:00:00 AM EST NAVEEN ( [facility]) [id number] Low back pain Low Back Pain Problem 06/01/2019 12:00:00 AM EST NAVEEN ([facility]) [id number] Finding of knee region Finding of Knee Region Problem 06/01/2019 12:00:00 AM EST NAVEEN ([facility]) [id number] Lump in upper outer quadrant of right br east Lump in Upper Outer Quadrant of Right Breast Problem 06/01/2019 12:00:00 AM EST NAVEEN ( [facility]) [id number] Low back pain Low Back Pain Problem 06/01/2019 12:00:00 AM EST NAVEEN ([facility]) [id number] Finding of knee region Finding of Knee Region Problem 06/01/2019 12:00:00 AM EST NAVEEN ([facility]) [id number] Lump in upper outer quadrant of right br east Lump in Upper Outer Quadrant of Right Breast Problem 06/01/2019 12:00:00 AM EST NAVEEN ( [facility]) [id number] Low back pain Low Back Pain Problem 06/01/2019 12:00:00 AM EST NAVEEN ([facility]) [id number] Finding of knee region Finding of Knee Region Problem 06/01/2019 12:00:00 AM EST N[facility]EN ([facility]) [id number] Lump in upper outer quadrant of right br east Lump in Upper Outer Quadrant of Right Breast Problem 06/01/2019 12:00:00 AM EST NAVEEN ( [facility]) [id number] Finding of knee region Finding of Knee Region Problem 06/01/2019 12:00:00 AM EST NAVEEN ([facility]) [id number] Lump in upper outer quadrant of right br east Lump in Upper Outer Quadrant of Right Breast Problem 06/01/2019 12:00:00 AM EST NAVEEN ( [facility]) [id number] Low back pain Low Back Pain Problem 06/01/2019 12:00:00 AM EST NAVEEN ([facility]) [id number] Finding of knee region Finding of Knee Region Problem 06/01/2019 12:00:00 AM EST NAVEEN ([facility]) [id number] Lump in upper outer quadrant of right br east Lump in Upper Outer Quadrant of Right Breast Problem 06/01/2019 12:00:00 AM EST NAVEEN ( [facility]) [id number] Low back pain Low Back Pain Problem 06/01/2019 12:00:00 AM EST NAVEEN ([facility]) [id number] Finding of knee region Finding of Knee Region Problem 06/01/2019 12:00:00 AM EST NAVEEN ([facility]) [id number] Lump in upper outer quadrant of right br east Lump in Upper Outer Quadrant of Right Breast Problem 06/01/2019 12:00:00 AM EST NAVEEN ( [facility]) [id number] Low back pain Low Back Pain Problem 06/01/2019 12:00:00 AM EST NAVEEN ([facility]) 521.00 Dental caries Dental caries 04/27/2019 04:34:34 PM EST [facility] Results ID Date Data Source [id number] 03/30/2020 02:00:00 PM EST NAVEEN ([facility]) Name Value Range Interpretation Code Description Data Alysa rce(s) Supporting Document(s) thyroid stimulating hormone 0.833 uIU/mL 0.358-3.740 normal Thyroid Stimulating Hormone [facility] ([facility]) ID Date Data Source [id number] 03/30/2020 02:00:00 PM EST [facility]EN ([facility]) Name Value Range Interpretation Code Description Data Alysa rce(s) Supporting Document(s) blood urea nitrogen 11 mg/dL 7-18 normal Blood Urea Nitro gen N[facility]EN ([facility]) glomerular filtration rate > 60.0 >60 normal Glomerula r Filtration Rate NAVEEN ([facility]) creatinine for GFR 0.73 mg/dL 0.55-1.30 normal Creatinine for GF R [facility] ([facility]) glucose, fasting 86 mg/dL 70-100 normal Glucose, Fasting AT [facility]) carbon dioxide level 29 mEq/L 21-32 normal Carbon Dioxide Level NAVEEN ([facility]) chloride level 107 mEq/L 98-107 normal Chloride Level [facility] ([facility]) sodium level 140 mEq/L 136-145 normal Sodium Level [facility] ([facility]) potassium serum 4.4 mEq/L 3.5-5.1 normal Potassium Serum ATHE ([facility]) anion gap 4 mEq/L 8-16 Below low normal Anion Gap [facility] ( [facility]) alkaline phosphatase 89 U/L 45-117 normal Alkaline Phosph atase [facility] ([facility]) AST/SGOT 10 U/L 7-37 normal AST/SGOT [facility] ([facility]) ALT/SGPT 17 U/L 12-78 normal ALT/SGPT [facility] ([facility]) calcium level 10.0 mg/dL 8.5-10.1 normal Calcium Level [facility] ( [facility]) bilirubin,total 0.5 mg/dL 0.2-1.0 normal Bilirubin,total ATHE [facility]) albumin 4.1 gm/dL 3.2-5.2 normal Albumin [facility] ([facility]) total protein 7.8 gm/dL 6.4-8.2 normal Total Protein NAVEEN ( [facility]) albumin/globulin ratio 1.2-2.2 Below low normal Albumin /globulin Ratio [facility] ([facility]) ID Date Data Source [id number] 03/30/2020 02:00:00 PM EST [facility]) Name Value Range Interpretation Code Description Data Alysa rce(s) Supporting Document(s) white blood count 5.7 10 4.0-10.0 normal White Blood Count [facility] ([facility]) hematocrit 41.8 % 36.0-47.0 normal Hematocrit [facility] ([facility]) hemoglobin 13.7 g/dL 12.0-15.5 normal Hemoglobin [facility] ([facility]) mean corpuscular volume 96.3 fL 80.0-96.0 Above high normal Mean Corpuscular Volume [facility] ([facility]) red blood count 4.34 10 4.00-5.40 normal Red Blood Count ATHE NA ([facility]) platelet count, automated 283 10 150-450 normal Platelet C ount, Automated [facility] ([facility]) red cell distribution width 11.7 % 11.5-14.5 normal Red Cell Distribution Width [facility] ([facility]) mean corpuscular hemoglobin 31.6 pg 27.0-33.0 normal Mean Corpuscular Hemoglobin [facility] ([facility]) mean corpuscular HGB conc 32.8 g/dL 32.0-36.5 normal Mean Corpu scular HGB Conc N[facility]EN ([facility]) neutrophils % 53.5 % 36.0-66.0 normal Neutrophils % NAVEEN ( [facility]) mono % 8.9 % 0.0-5.0 Above high normal [place] % NAVEEN ([facility]) eos % 0.9 % 0.0-3.0 normal Eos % [facility] ([facility]) lymph % 35.7 % 24.0-44.0 normal Lymph % NAVEEN ([facility]) neutrophils # 3.1 10 1.5-8.5 normal Neutrophils # NAVEEN ( [facility]) immature granulocyte % 0.0 % 0-3.0 normal Immature Gran ulocyte % [facility] ([facility]) nucleated red blood cell % 0.0 % 0-0 normal Nucleated Red Blood Cell % [facility] ([facility]) baso % 1.0 % 0.0-1.0 normal Baso % [facility] ([facility]) baso # 0.1 10 0.0-0.2 normal Baso # [facility] ([facility]) mono # 0.5 10 0.0-0.8 normal [place] # [facility]AVEEN ([facility]) eos # 0.1 10 0.0-0.5 normal Eos # [facility] ([facility]) lymph # 2.0 10 1.5-5.0 normal Lymph # [facility] ([facility]) ID Date Data Source [id number] 03/30/2020 02:00:00 PM EST NAVEEN ([facility]) Name Value Range Interpretation Code Description Data Alysa rce(s) Supporting Document(s) prolactin 4.4 NG/mL normal Prolactin [facility] ([facility]) ID Date Data Source [id number] 03/30/2020 02:00:00 PM EST NAVEEN ([facility]) Name Value Range Interpretation Code Description Data Alysa rce(s) Supporting Document(s) thyroid stimulating hormone 0.833 uIU/mL 0.358-3.740 normal Thyroid Stimulating Hormone [facility]) ID Date Data Source [id number] 03/30/2020 02:00:00 PM EST NAVEEN ([facility]) Name Value Range Interpretation Code Description Data Alysa rce(s) Supporting Document(s) glomerular filtration rate > 60.0 >60 normal Glomerula r Filtration Rate [facility] ([facility]) glucose, fasting 86 mg/dL 70-100 normal Glucose, Fasting AT [facility]) creatinine for GFR 0.73 mg/dL 0.55-1.30 normal Creatinine for GF R [facility] ([facility]) blood urea nitrogen 11 mg/dL 7-18 normal Blood Urea Nitro gen [facility] ([facility]) carbon dioxide level 29 mEq/L 21-32 normal Carbon Dioxide Level [facility] ([facility]) chloride level 107 mEq/L 98-107 normal Chloride Level [facility] ([facility]) sodium level 140 mEq/L 136-145 normal Sodium Level [facility] ([facility]) potassium serum 4.4 mEq/L 3.5-5.1 normal Potassium Serum [facility] ([facility]) anion gap 4 mEq/L 8-16 Below low normal Anion Gap [facility] ( [facility]) ALT/SGPT 17 U/L 12-78 normal ALT/SGPT [facility] ([facility]) AST/SGOT 10 U/L 7-37 normal AST/SGOT [facility] ([facility]) calcium level 10.0 mg/dL 8.5-10.1 normal Calcium Level [facility] ( [facility]) albumin/globulin ratio 1.2-2.2 Below low normal Albumin /globulin Ratio [facility] ([facility]) total protein 7.8 gm/dL 6.4-8.2 normal Total Protein [facility] ( [facility]) alkaline phosphatase 89 U/L 45-117 normal Alkaline Phosph atase [facility] ([facility]) bilirubin,total 0.5 mg/dL 0.2-1.0 normal Bilirubin,total AT[facility] ([facility]) albumin 4.1 gm/dL 3.2-5.2 normal Albumin [facility] ([facility]) ID Date Data Source [id number] 03/30/2020 02:00:00 PM EST NAVEEN ([facility]) Name Value Range Interpretation Code Description Data Alysa rce(s) Supporting Document(s) red blood count 4.34 10 4.00-5.40 normal Red Blood Count AT[facility] ([facility]) white blood count 5.7 10 4.0-10.0 normal White Blood Count [facility] ([facility]) mean corpuscular hemoglobin 31.6 pg 27.0-33.0 normal Mean Corpuscular Hemoglobin [facility] ([facility]) hemoglobin 13.7 g/dL 12.0-15.5 normal Hemoglobin [facility] ([facility]) mean corpuscular volume 96.3 fL 80.0-96.0 Above high normal Mean Corpuscular Volume [facility] ([facility]) hematocrit 41.8 % 36.0-47.0 normal Hematocrit [facility] ([facility]) neutrophils % 53.5 % 36.0-66.0 normal Neutrophils % [facility]EN ( [facility]) red cell distribution width 11.7 % 11.5-14.5 normal Red Cell Distribution Width [facility] ([facility]) mean corpuscular HGB conc 32.8 g/dL 32.0-36.5 normal Mean Corpu scular HGB Conc [facility] ([facility]) platelet count, automated 283 10 150-450 normal Platelet C ount, Automated [facility] ([facility]) lymph % 35.7 % 24.0-44.0 normal Lymph % [facility] ([facility]) mono % 8.9 % 0.0-5.0 Above high normal [place] % [facility] ([facility]) eos % 0.9 % 0.0-3.0 normal Eos % [facility] ([facility]) baso % 1.0 % 0.0-1.0 normal Baso % [facility] ([facility]) lymph # 2.0 10 1.5-5.0 normal Lymph # NAVE[facility] ([facility]) immature granulocyte % 0.0 % 0-3.0 normal Immature Gran ulocyte % [facility] ([facility]) nucleated red blood cell % 0.0 % 0-0 normal Nucleated Red Blood Cell % [facility] ([facility]) neutrophils # 3.1 10 1.5-8.5 normal Neutrophils # NAVEEN ( [facility]) eos # 0.1 10 0.0-0.5 normal Eos # [facility] ([facility]) baso # 0.1 10 0.0-0.2 normal Baso # [facility] ([facility]) mono # 0.5 10 0.0-0.8 normal [place] # [facility] ([facility]) ID Date Data Source [id number] 03/30/2020 02:00:00 PM EST N[facility] ([facility]) Name Value Range Interpretation Code Description Data Alysa rce(s) Supporting Document(s) prolactin 4.4 NG/mL normal Prolactin [facility] ([facility]) ID Date Data Source [id number] 03/30/2020 02:00:00 PM EST [place] ([facility]) Name Value Range Interpretation Code Description Data Alysa rce(s) Supporting Document(s) thyroid stimulating hormone 0.833 uIU/mL 0.358-3.740 normal Thyroid Stimulating Hormone [facility]) ID Date Data Source [id number] 03/30/2020 02:00:00 PM EST [facility] ([facility]) Name Value Range Interpretation Code Description Data Alysa rce(s) Supporting Document(s) glucose, fasting 86 mg/dL 70-100 normal Glucose, Fasting AT [facility]) glomerular filtration rate > 60.0 >60 normal Glomerula r Filtration Rate [facility] ([facility]) blood urea nitrogen 11 mg/dL 7-18 normal Blood Urea Nitro gen [facility] ([facility]) creatinine for GFR 0.73 mg/dL 0.55-1.30 normal Creatinine for GF R [facility] ([facility]) sodium level 140 mEq/L 136-145 normal Sodium Level [facility] ([facility]) carbon dioxide level 29 mEq/L 21-32 normal Carbon Dioxide Level [facility] ([facility]) chloride level 107 mEq/L 98-107 normal Chloride Level [facility] ([facility]) potassium serum 4.4 mEq/L 3.5-5.1 normal [facility] calcium level 10.0 mg/dL 8.5-10.1 normal Calcium Level [facility] ( [facility]) anion gap 4 mEq/L 8-16 Below low normal Anion Gap [facility] ( [facility]) AST/SGOT 10 U/L 7-37 normal AST/SGOT [facility] ([facility]) ALT/SGPT 17 U/L 12-78 normal ALT/SGPT [facility] ([facility]) bilirubin,total 0.5 mg/dL 0.2-1.0 normal [facility] alkaline phosphatase 89 U/L 45-117 normal Alkaline Phosph atase [facility]) total protein 7.8 gm/dL 6.4-8.2 normal Total Protein [facility] ( [facility]) albumin/globulin ratio 1.2-2.2 Below low normal Albumin /globulin Ratio [facility] ([facility]) albumin 4.1 gm/dL 3.2-5.2 normal Albumin [facility] ([facility]) ID Date Data Source [id number] 03/30/2020 02:00:00 PM EST [facility] ([facility]) Name Value Range Interpretation Code Description Data Alysa rce(s) Supporting Document(s) white blood count 5.7 10 4.0-10.0 normal White Blood Count [facility] ([facility]) red blood count 4.34 10 4.00-5.40 normal Red Blood Count [facility] ([facility]) hemoglobin 13.7 g/dL 12.0-15.5 normal Hemoglobin [facility] ([facility]) hematocrit 41.8 % 36.0-47.0 normal Hematocrit [facility] ([facility]) mean corpuscular volume 96.3 fL 80.0-96.0 Above high normal Mean Corpuscular Volume [facility] ([facility]) mean corpuscular hemoglobin 31.6 pg 27.0-33.0 normal Mean Corpuscular Hemoglobin [facility] ([facility]) red cell distribution width 11.7 % 11.5-14.5 normal Red Cell Distribution Width [facility] ([facility]) platelet count, automated 283 10 150-450 normal Platelet C ount, Automated [facility] ([facility]) mean corpuscular HGB conc 32.8 g/dL 32.0-36.5 normal Mean Corpu scular HGB Conc [facility] ([facility]) lymph % 35.7 % 24.0-44.0 normal Lymph % [facility] ([facility]) neutrophils % 53.5 % 36.0-66.0 normal Neutrophils % [facility] ( [facility]) mono % 8.9 % 0.0-5.0 Above high normal [place] % [facility] ([facility]) baso % 1.0 % 0.0-1.0 normal Baso % [facility] ([facility]) nucleated red blood cell % 0.0 % 0-0 normal Nucleated Red Blood Cell % [facility] ([facility]) eos % 0.9 % 0.0-3.0 normal Eos % [facility] ([facility]) immature granulocyte % 0.0 % 0-3.0 normal Immature Gran ulocyte % [facility] ([facility]) neutrophils # 3.1 10 1.5-8.5 normal Neutrophils # [facility] ( [facility]) lymph # 2.0 10 1.5-5.0 normal Lymph # [facility] ([facility]) mono # 0.5 10 0.0-0.8 normal [place] # [facility] ([facility]) eos # 0.1 10 0.0-0.5 normal Eos # [facility] ([facility]) baso # 0.1 10 0.0-0.2 normal Baso # [facility] ([facility]) ID Date Data Source [id number] 03/30/2020 02:00:00 PM EST [facility] ([facility]) Name Value Range Interpretation Code Description Data Alysa rce(s) Supporting Document(s) prolactin 4.4 NG/mL normal Prolactin [facility] ([facility]) ID Date Data Source [id number] 03/30/2020 02:00:00 PM EST [facility] ([facility]) Name Value Range Interpretation Code Description Data Alysa rce(s) Supporting Document(s) thyroid stimulating hormone 0.833 uIU/mL 0.358-3.740 normal Thyroid Stimulating Hormone [facility] ([facility]) ID Date Data Source [id number] 03/30/2020 02:00:00 PM EST [facility] ([facility]) Name Value Range Interpretation Code Description Data Alysa rce(s) Supporting Document(s) glucose, fasting 86 mg/dL 70-100 normal Glucose, Fasting AT [facility] ([facility]) blood urea nitrogen 11 mg/dL 7-18 normal Blood Urea Nitro gen [facility] ([facility]) glomerular filtration rate > 60.0 >60 normal Glomerula r Filtration Rate [facility] ([facility]) creatinine for GFR 0.73 mg/dL 0.55-1.30 normal Creatinine for GF R [facility] ([facility]) sodium level 140 mEq/L 136-145 normal Sodium Level NAVEEN ([facility]) chloride level 107 mEq/L 98-107 normal Chloride Level [facility] ([facility]) carbon dioxide level 29 mEq/L 21-32 normal Carbon Dioxide Level [facility] ([facility]) potassium serum 4.4 mEq/L 3.5-5.1 normal Potassium Serum [facility] ([facility]) AST/SGOT 10 U/L 7-37 normal AST/SGOT [facility] ([facility]) anion gap 4 mEq/L 8-16 Below low normal Anion Gap [facility] ( [facility]) calcium level 10.0 mg/dL 8.5-10.1 normal Calcium Level [facility] ( [facility]) bilirubin,total 0.5 mg/dL 0.2-1.0 normal Bilirubin,total ATHE ([facility]) ALT/SGPT 17 U/L 12-78 normal ALT/SGPT [facility] ([facility]) total protein 7.8 gm/dL 6.4-8.2 normal Total Protein [facility] ( [facility]) alkaline phosphatase 89 U/L 45-117 normal Alkaline Phosph atase [facility] ([facility]) albumin/globulin ratio 1.2-2.2 Below low normal Albumin /globulin Ratio [facility] ([facility]) albumin 4.1 gm/dL 3.2-5.2 normal Albumin [facility] ([facility]) ID Date Data Source [id number] 03/30/2020 02:00:00 PM EST [facility] ([facility]) Name Value Range Interpretation Code Description Data Alysa rce(s) Supporting Document(s) white blood count 5.7 10 4.0-10.0 normal White Blood Count [facility] ([facility]) hemoglobin 13.7 g/dL 12.0-15.5 normal Hemoglobin [facility] ([facility]) red blood count 4.34 10 4.00-5.40 normal Red Blood Count ATHE NA ([facility]) mean corpuscular hemoglobin 31.6 pg 27.0-33.0 normal Mean Corpuscular Hemoglobin [facility] ([facility]) mean corpuscular volume 96.3 fL 80.0-96.0 Above high normal Mean Corpuscular Volume [facility] ([facility]) hematocrit 41.8 % 36.0-47.0 normal Hematocrit [facility] ([facility]) platelet count, automated 283 10 150-450 normal Platelet C ount, Automated [facility] ([facility]) red cell distribution width 11.7 % 11.5-14.5 normal Red Cell Distribution Width [facility] ([facility]) mean corpuscular HGB conc 32.8 g/dL 32.0-36.5 normal Mean Corpu scular HGB Conc [facility] ([facility]) lymph % 35.7 % 24.0-44.0 normal Lymph % [facility] ([facility]) neutrophils % 53.5 % 36.0-66.0 normal Neutrophils % [facility] ( [facility]) baso % 1.0 % 0.0-1.0 normal Baso % [facility] ([facility]) mono % 8.9 % 0.0-5.0 Above high normal [place] % [facility] ([facility]) eos % 0.9 % 0.0-3.0 normal Eos % [facility] ([facility]) nucleated red blood cell % 0.0 % 0-0 normal Nucleated Red Blood Cell % [facility] ([facility]) immature granulocyte % 0.0 % 0-3.0 normal Immature Gran ulocyte % [facility] ([facility]) neutrophils # 3.1 10 1.5-8.5 normal Neutrophils # [facility] ( [facility]) lymph # 2.0 10 1.5-5.0 normal Lymph # [facility] ([facility]) eos # 0.1 10 0.0-0.5 normal Eos # [facility] ([facility]) mono # 0.5 10 0.0-0.8 normal [place] # [facility] ([facility]) baso # 0.1 10 0.0-0.2 normal Baso # [facility] ([facility]) ID Date Data Source [id number] 03/30/2020 02:00:00 PM EST [facility] ([facility]) Name Value Range Interpretation Code Description Data Alysa rce(s) Supporting Document(s) prolactin 4.4 NG/mL normal Prolactin [facility] ([facility]) ID Date Data Source [id number] 03/30/2020 02:00:00 PM EST [facility] ([facility]) Name Value Range Interpretation Code Description Data Alysa rce(s) Supporting Document(s) thyroid stimulating hormone 0.833 uIU/mL 0.358-3.740 normal Thyroid Stimulating Hormone [facility] ([facility]) ID Date Data Source [id number] 03/30/2020 02:00:00 PM EST NAVEEN ([facility]) Name Value Range Interpretation Code Description Data Alysa rce(s) Supporting Document(s) glucose, fasting 86 mg/dL 70-100 normal Glucose, Fasting AT [facility] ([facility]) blood urea nitrogen 11 mg/dL 7-18 normal Blood Urea Nitro gen NAVEEN ([facility]) glomerular filtration rate > 60.0 >60 normal Glomerula r Filtration Rate [facility] ([facility]) creatinine for GFR 0.73 mg/dL 0.55-1.30 normal Creatinine for GF R [facility] ([facility]) potassium serum 4.4 mEq/L 3.5-5.1 normal Potassium Serum ATHE NA ([facility]) sodium level 140 mEq/L 136-145 normal Sodium Level [facility]AVE[facility] ([facility]) anion gap 4 mEq/L 8-16 Below low normal Anion Gap NAVEEN ( [facility]) calcium level 10.0 mg/dL 8.5-10.1 normal Calcium Level [facility] ( [facility]) chloride level 107 mEq/L 98-107 normal Chloride Level NAVEEN ([facility]) carbon dioxide level 29 mEq/L 21-32 normal Carbon Dioxide Level NAVEEN ([facility]) total protein 7.8 gm/dL 6.4-8.2 normal Total Protein NAVEEN ( [facility]) alkaline phosphatase 89 U/L 45-117 normal Alkaline Phosph atase NAVEEN ([facility]) ALT/SGPT 17 U/L 12-78 normal ALT/SGPT [facility] ([facility]) bilirubin,total 0.5 mg/dL 0.2-1.0 normal Bilirubin,total AT[facility] ([facility]) AST/SGOT 10 U/L 7-37 normal AST/SGOT [facility] ([facility]) albumin 4.1 gm/dL 3.2-5.2 normal Albumin [facility] ([facility]) albumin/globulin ratio 1.2-2.2 Below low normal Albumin /globulin Ratio [facility] ([facility]) ID Date Data Source [id number] 03/30/2020 02:00:00 PM EST NAVEEN ([facility]) Name Value Range Interpretation Code Description Data Alysa rce(s) Supporting Document(s) white blood count 5.7 10 4.0-10.0 normal White Blood Count [facility] ([facility]) red blood count 4.34 10 4.00-5.40 normal Red Blood Count [facility] ([facility]) hemoglobin 13.7 g/dL 12.0-15.5 normal Hemoglobin NAVEEN ([facility]) hematocrit 41.8 % 36.0-47.0 normal Hematocrit [facility] ([facility]) mean corpuscular volume 96.3 fL 80.0-96.0 Above high normal Mean Corpuscular Volume [facility] ([facility]) mean corpuscular hemoglobin 31.6 pg 27.0-33.0 normal Mean Corpuscular Hemoglobin [facility] ([facility]) mean corpuscular HGB conc 32.8 g/dL 32.0-36.5 normal Mean Corpu scular HGB Conc [facility] ([facility]) platelet count, automated 283 10 150-450 normal Platelet C ount, Automated [facility] ([facility]) red cell distribution width 11.7 % 11.5-14.5 normal Red Cell Distribution Width [facility] ([facility]) mono % 8.9 % 0.0-5.0 Above high normal [place] % N[facility] ([facility]) lymph % 35.7 % 24.0-44.0 normal Lymph % [facility] ([facility]) eos % 0.9 % 0.0-3.0 normal Eos % [facility] ([facility]) neutrophils % 53.5 % 36.0-66.0 normal Neutrophils % [facility] ( [facility]) immature granulocyte % 0.0 % 0-3.0 normal Immature Gran ulocyte % [facility] ([facility]) neutrophils # 3.1 10 1.5-8.5 normal Neutrophils # NAVEEN ( [facility]) nucleated red blood cell % 0.0 % 0-0 normal Nucleated Red Blood Cell % [facility] ([facility]) baso % 1.0 % 0.0-1.0 normal Baso % [facility] ([facility]) eos # 0.1 10 0.0-0.5 normal Eos # [facility] ([facility]) mono # 0.5 10 0.0-0.8 normal [place] # NAVEEN ([facility]) lymph # 2.0 10 1.5-5.0 normal Lymph # [facility]EN ([facility]) baso # 0.1 10 0.0-0.2 normal Baso # [facility] ([facility]) ID Date Data Source [id number] 03/30/2020 02:00:00 PM EST NAVEEN ([facility]) Name Value Range Interpretation Code Description Data Alysa rce(s) Supporting Document(s) prolactin 4.4 NG/mL normal Prolactin [facility] ([facility]) ID Date Data Source [id number] 03/30/2020 02:00:00 PM EST NAVEEN ([facility]) Name Value Range Interpretation Code Description Data Alysa rce(s) Supporting Document(s) thyroid stimulating hormone 0.833 uIU/mL 0.358-3.740 normal Thyroid Stimulating Hormone [facility] ([facility]) ID Date Data Source [id number] 03/30/2020 02:00:00 PM EST NAVEEN ([facility]) Name Value Range Interpretation Code Description Data Alysa rce(s) Supporting Document(s) glucose, fasting 86 mg/dL 70-100 normal Glucose, Fasting AT [facility] ([facility]) blood urea nitrogen 11 mg/dL 7-18 normal Blood Urea Nitro gen [facility] ([facility]) potassium serum 4.4 mEq/L 3.5-5.1 normal Potassium [facility]) creatinine for GFR 0.73 mg/dL 0.55-1.30 normal Creatinine for GF R [facility] ([facility]) sodium level 140 mEq/L 136-145 normal Sodium Level NAVEEN ([facility]) glomerular filtration rate > 60.0 >60 normal Glomerula r Filtration Rate [facility] ([facility]) carbon dioxide level 29 mEq/L 21-32 normal Carbon Dioxide Level [facility] ([facility]) chloride level 107 mEq/L 98-107 normal Chloride Level [facility] ([facility]) anion gap 4 mEq/L 8-16 Below low normal Anion Gap [facility] ( [facility]) AST/SGOT 10 U/L 7-37 normal AST/SGOT [facility] ([facility]) calcium level 10.0 mg/dL 8.5-10.1 normal Calcium Level [facility] ( [facility]) alkaline phosphatase 89 U/L 45-117 normal Alkaline Phosph atase [facility] ([facility]) ALT/SGPT 17 U/L 12-78 normal ALT/SGPT [facility] ([facility]) total protein 7.8 gm/dL 6.4-8.2 normal Total Protein N[facility]EN ( [facility]) bilirubin,total 0.5 mg/dL 0.2-1.0 normal Bilirubin,total [facility] ([facility]) albumin 4.1 gm/dL 3.2-5.2 normal Albumin [facility] ([facility]) albumin/globulin ratio 1.2-2.2 Below low normal Albumin /globulin Ratio [facility] ([facility]) ID Date Data Source [id number] 03/30/2020 02:00:00 PM EST NAVEEN ([facility]) Name Value Range Interpretation Code Description Data Alysa rce(s) Supporting Document(s) red blood count 4.34 10 4.00-5.40 normal Red Blood Count ATHE NA ([facility]) white blood count 5.7 10 4.0-10.0 normal White Blood Count [facility] ([facility]) hemoglobin 13.7 g/dL 12.0-15.5 normal Hemoglobin [facility] ([facility]) mean corpuscular volume 96.3 fL 80.0-96.0 Above high normal Mean Corpuscular Volume [facility] ([facility]) hematocrit 41.8 % 36.0-47.0 normal Hematocrit [facility] ([facility]) mean corpuscular hemoglobin 31.6 pg 27.0-33.0 normal Mean Corpuscular Hemoglobin [facility] ([facility]) platelet count, automated 283 10 150-450 normal Platelet C ount, Automated [facility] ([facility]) red cell distribution width 11.7 % 11.5-14.5 normal Red Cell Distribution Width [facility] ([facility]) mean corpuscular HGB conc 32.8 g/dL 32.0-36.5 normal Mean Corpu scular HGB Conc [facility] ([facility]) mono % 8.9 % 0.0-5.0 Above high normal [place] % [facility] ([facility]) lymph % 35.7 % 24.0-44.0 normal Lymph % [facility] ([facility]) neutrophils % 53.5 % 36.0-66.0 normal Neutrophils % N[facility] ( [facility]) immature granulocyte % 0.0 % 0-3.0 normal Immature Gran ulocyte % [facility] ([facility]) eos % 0.9 % 0.0-3.0 normal Eos % [facility] ([facility]) nucleated red blood cell % 0.0 % 0-0 normal Nucleated Red Blood Cell % [facility] ([facility]) baso % 1.0 % 0.0-1.0 normal Baso % [facility] ([facility]) lymph # 2.0 10 1.5-5.0 normal Lymph # NAVEEN ([facility]) neutrophils # 3.1 10 1.5-8.5 normal Neutrophils # NAVEEN ( [facility]) mono # 0.5 10 0.0-0.8 normal [place] # [facility]AVEEN ([facility]) eos # 0.1 10 0.0-0.5 normal Eos # [facility] ([facility]) baso # 0.1 10 0.0-0.2 normal Baso # [facility] ([facility]) ID Date Data Source [id number] 03/30/2020 02:00:00 PM EST NAVEEN ([facility]) Name Value Range Interpretation Code Description Data Alysa rce(s) Supporting Document(s) prolactin 4.4 NG/mL normal Prolactin [facility] ([facility]) ID Date Data Source [id number] 03/30/2020 02:00:00 PM EST NAVEEN ([facility]) Name Value Range Interpretation Code Description Data Alysa rce(s) Supporting Document(s) thyroid stimulating hormone 0.833 uIU/mL 0.358-3.740 normal Thyroid Stimulating Hormone [facility] ([facility]) ID Date Data Source [id number] 03/30/2020 02:00:00 PM EST NAVEEN ([facility]) Name Value Range Interpretation Code Description Data Alysa rce(s) Supporting Document(s) glucose, fasting 86 mg/dL 70-100 normal Glucose, Fasting AT [facility] ([facility]) blood urea nitrogen 11 mg/dL 7-18 normal Blood Urea Nitro gen [facility] ([facility]) sodium level 140 mEq/L 136-145 normal Sodium Level NAVEEN ([facility]) glomerular filtration rate > 60.0 >60 normal Glomerula r Filtration Rate [facility]EN ([facility]) creatinine for GFR 0.73 mg/dL 0.55-1.30 normal Creatinine for GF R N[facility]EN ([facility]) potassium serum 4.4 mEq/L 3.5-5.1 normal Potassium Serum ATHE NA ([facility]) anion gap 4 mEq/L 8-16 Below low normal Anion Gap [facility] ( [facility]) chloride level 107 mEq/L 98-107 normal Chloride Level [facility] ([facility]) carbon dioxide level 29 mEq/L 21-32 normal Carbon Dioxide Level [facility] ([facility]) AST/SGOT 10 U/L 7-37 normal AST/SGOT [facility] ([facility]) ALT/SGPT 17 U/L 12-78 normal ALT/SGPT [facility] ([facility]) bilirubin,total 0.5 mg/dL 0.2-1.0 normal Bilirubin,total AT[facility] ([facility]) alkaline phosphatase 89 U/L 45-117 normal Alkaline Phosph atase [facility] ([facility]) calcium level 10.0 mg/dL 8.5-10.1 normal Calcium Level [facility]EN ( [facility]) total protein 7.8 gm/dL 6.4-8.2 normal Total Protein [facility] ( [facility]) albumin 4.1 gm/dL 3.2-5.2 normal Albumin [facility] ([facility]) albumin/globulin ratio 1.2-2.2 Below low normal Albumin /globulin Ratio [facility] ([facility]) ID Date Data Source [id number] 03/30/2020 02:00:00 PM EST NAVEEN ([facility]) Name Value Range Interpretation Code Description Data Alysa rce(s) Supporting Document(s) white blood count 5.7 10 4.0-10.0 normal White Blood Count [facility] ([facility]) red blood count 4.34 10 4.00-5.40 normal Red Blood Count [facility] ([facility]) hematocrit 41.8 % 36.0-47.0 normal Hematocrit [facility] ([facility]) hemoglobin 13.7 g/dL 12.0-15.5 normal Hemoglobin [facility] ([facility]) mean corpuscular volume 96.3 fL 80.0-96.0 Above high normal Mean Corpuscular Volume N[facility]EN ([facility]) mean corpuscular hemoglobin 31.6 pg 27.0-33.0 normal Mean Corpuscular Hemoglobin N[facility] ([facility]) mean corpuscular HGB conc 32.8 g/dL 32.0-36.5 normal Mean Corpu scular HGB Conc NAVEEN ([facility]) platelet count, automated 283 10 150-450 normal Platelet C ount, Automated [facility] ([facility]) red cell distribution width 11.7 % 11.5-14.5 normal Red Cell Distribution Width [facility] ([facility]) mono % 8.9 % 0.0-5.0 Above high normal [place] % N[facility] ([facility]) neutrophils % 53.5 % 36.0-66.0 normal Neutrophils % NAVEEN ( [facility]) lymph % 35.7 % 24.0-44.0 normal Lymph % [facility] ([facility]) baso % 1.0 % 0.0-1.0 normal Baso % [facility] ([facility]) eos % 0.9 % 0.0-3.0 normal Eos % [facility] ([facility]) immature granulocyte % 0.0 % 0-3.0 normal Immature Gran ulocyte % [facility] ([facility]) nucleated red blood cell % 0.0 % 0-0 normal Nucleated Red Blood Cell % [facility] ([facility]) neutrophils # 3.1 10 1.5-8.5 normal Neutrophils # NAVEEN ( [facility]) mono # 0.5 10 0.0-0.8 normal [place] # NAVEEN ([facility]) eos # 0.1 10 0.0-0.5 normal Eos # [facility] ([facility]) lymph # 2.0 10 1.5-5.0 normal Lymph # [facility]EN ([facility]) baso # 0.1 10 0.0-0.2 normal Baso # [facility] ([facility]) ID Date Data Source [id number] 03/30/2020 02:00:00 PM EST NAVEEN ([facility]) Name Value Range Interpretation Code Description Data Alysa rce(s) Supporting Document(s) prolactin 4.4 NG/mL normal Prolactin [facility] ([facility]) ID Date Data Source [id number] 03/30/2020 02:00:00 PM EST NAVEEN ([facility]) Name Value Range Interpretation Code Description Data Alysa rce(s) Supporting Document(s) thyroid stimulating hormone 0.833 uIU/mL 0.358-3.740 normal Thyroid Stimulating Hormone [facility] ([facility]) ID Date Data Source [id number] 03/30/2020 02:00:00 PM EST NAVEEN ([facility]) Name Value Range Interpretation Code Description Data Alysa rce(s) Supporting Document(s) glucose, fasting 86 mg/dL 70-100 normal Glucose, Fasting AT [facility]) glomerular filtration rate > 60.0 >60 normal Glomerula r Filtration Rate N[facility]EN ([facility]) blood urea nitrogen 11 mg/dL 7-18 normal Blood Urea Nitro gen [facility] ([facility]) creatinine for GFR 0.73 mg/dL 0.55-1.30 normal Creatinine for GF R [facility] ([facility]) potassium serum 4.4 mEq/L 3.5-5.1 normal Potassium Serum ATHE NA ([facility]) carbon dioxide level 29 mEq/L 21-32 normal Carbon Dioxide Level [facility] ([facility]) chloride level 107 mEq/L 98-107 normal Chloride Level [facility] ([facility]) anion gap 4 mEq/L 8-16 Below low normal Anion Gap N[facility] ( [facility]) sodium level 140 mEq/L 136-145 normal Sodium Level [facility] ([facility]) alkaline phosphatase 89 U/L 45-117 normal Alkaline Phosph atase [facility] ([facility]) ALT/SGPT 17 U/L 12-78 normal ALT/SGPT [facility] ([facility]) AST/SGOT 10 U/L 7-37 normal AST/SGOT [facility] ([facility]) calcium level 10.0 mg/dL 8.5-10.1 normal Calcium Level [facility] ( [facility]) albumin/globulin ratio 1.2-2.2 Below low normal Albumin /globulin Ratio [facility] ([facility]) albumin 4.1 gm/dL 3.2-5.2 normal Albumin [facility] ([facility]) bilirubin,total 0.5 mg/dL 0.2-1.0 normal Bilirubin,total [facility] ([facility]) total protein 7.8 gm/dL 6.4-8.2 normal Total Protein [facility] ( [facility]) ID Date Data Source [id number] 03/30/2020 02:00:00 PM EST [facility] ([facility]) Name Value Range Interpretation Code Description Data Alysa rce(s) Supporting Document(s) white blood count 5.7 10 4.0-10.0 normal White Blood Count [facility] ([facility]) mean corpuscular volume 96.3 fL 80.0-96.0 Above high normal Mean Corpuscular Volume [facility] ([facility]) red blood count 4.34 10 4.00-5.40 normal Red Blood Count ATHE NA ([facility]) hematocrit 41.8 % 36.0-47.0 normal Hematocrit [facility] ([facility]) hemoglobin 13.7 g/dL 12.0-15.5 normal Hemoglobin [facility] ([facility]) mean corpuscular HGB conc 32.8 g/dL 32.0-36.5 normal Mean Corpu scular HGB Conc [facility] ([facility]) red cell distribution width 11.7 % 11.5-14.5 normal Red Cell Distribution Width [facility] ([facility]) mean corpuscular hemoglobin 31.6 pg 27.0-33.0 normal Mean Corpuscular Hemoglobin [facility] ([facility]) neutrophils % 53.5 % 36.0-66.0 normal Neutrophils % [facility] ( [facility]) platelet count, automated 283 10 150-450 normal Platelet C ount, Automated [facility] ([facility]) lymph % 35.7 % 24.0-44.0 normal Lymph % [facility] ([facility]) eos % 0.9 % 0.0-3.0 normal Eos % [facility] ([facility]) baso % 1.0 % 0.0-1.0 normal Baso % [facility] ([facility]) mono % 8.9 % 0.0-5.0 Above high normal [place] % [facility] ([facility]) immature granulocyte % 0.0 % 0-3.0 normal Immature Gran ulocyte % [facility] ([facility]) neutrophils # 3.1 10 1.5-8.5 normal Neutrophils # [facility] ( [facility]) lymph # 2.0 10 1.5-5.0 normal Lymph # [facility] ([facility]) nucleated red blood cell % 0.0 % 0-0 normal Nucleated Red Blood Cell % [facility] ([facility]) mono # 0.5 10 0.0-0.8 normal [place] # [facility] ([facility]) baso # 0.1 10 0.0-0.2 normal Baso # [facility] ([facility]) eos # 0.1 10 0.0-0.5 normal Eos # [facility] ([facility]) ID Date Data Source [id number] 03/30/2020 02:00:00 PM EST [facility] ([facility]) Name Value Range Interpretation Code Description Data Alysa rce(s) Supporting Document(s) prolactin 4.4 NG/mL normal Prolactin [facility] ([facility]) ID Date Data Source [id number] 03/30/2020 02:00:00 PM EST [facility] ([facility]) Name Value Range Interpretation Code Description Data Alysa rce(s) Supporting Document(s) thyroid stimulating hormone 0.833 uIU/mL 0.358-3.740 normal Thyroid Stimulating Hormone [facility] ([facility]) ID Date Data Source [id number] 03/30/2020 02:00:00 PM EST [facility] ([facility]) Name Value Range Interpretation Code Description Data Alysa rce(s) Supporting Document(s) glucose, fasting 86 mg/dL 70-100 normal Glucose, Fasting AT [facility] ([facility]) potassium serum 4.4 mEq/L 3.5-5.1 normal Potassium Serum [facility] ([facility]) blood urea nitrogen 11 mg/dL 7-18 normal Blood Urea Nitro gen [facility] ([facility]) sodium level 140 mEq/L 136-145 normal Sodium Level [facility]EN ([facility]) creatinine for GFR 0.73 mg/dL 0.55-1.30 normal Creatinine for GF R [facility] ([facility]) glomerular filtration rate > 60.0 >60 normal Glomerula r Filtration Rate [facility] ([facility]) carbon dioxide level 29 mEq/L 21-32 normal Carbon Dioxide Level [facility] ([facility]) anion gap 4 mEq/L 8-16 Below low normal Anion Gap [facility] ( [facility]) chloride level 107 mEq/L 98-107 normal Chloride Level [facility] ([facility]) calcium level 10.0 mg/dL 8.5-10.1 normal Calcium Level [facility] ( [facility]) ALT/SGPT 17 U/L 12-78 normal ALT/SGPT [facility] ([facility]) bilirubin,total 0.5 mg/dL 0.2-1.0 normal Bilirubin,total [facility] ([facility]) albumin 4.1 gm/dL 3.2-5.2 normal Albumin [facility] ([facility]) AST/SGOT 10 U/L 7-37 normal AST/SGOT [facility] ([facility]) total protein 7.8 gm/dL 6.4-8.2 normal Total Protein [facility] ( [facility]) alkaline phosphatase 89 U/L 45-117 normal Alkaline Phosph atase [facility] ([facility]) albumin/globulin ratio 1.2-2.2 Below low normal Albumin /globulin Ratio [facility] ([facility]) ID Date Data Source [id number] 03/30/2020 02:00:00 PM EST [facility] ([facility]) Name Value Range Interpretation Code Description Data Alysa rce(s) Supporting Document(s) white blood count 5.7 10 4.0-10.0 normal White Blood Count [facility] ([facility]) hematocrit 41.8 % 36.0-47.0 normal Hematocrit [facility] ([facility]) hemoglobin 13.7 g/dL 12.0-15.5 normal Hemoglobin [facility] ([facility]) red blood count 4.34 10 4.00-5.40 normal Red Blood Count [facility] ([facility]) red cell distribution width 11.7 % 11.5-14.5 normal Red Cell Distribution Width [facility] ([facility]) mean corpuscular HGB conc 32.8 g/dL 32.0-36.5 normal Mean Corpu scular HGB Conc [facility] ([facility]) mean corpuscular volume 96.3 fL 80.0-96.0 Above high normal Mean Corpuscular Volume [facility] ([facility]) mean corpuscular hemoglobin 31.6 pg 27.0-33.0 normal Mean Corpuscular Hemoglobin [facility] ([facility]) mono % 8.9 % 0.0-5.0 Above high normal [place] % [facility] ([facility]) platelet count, automated 283 10 150-450 normal Platelet C ount, Automated [facility] ([facility]) neutrophils % 53.5 % 36.0-66.0 normal Neutrophils % [facility] ( [facility]) lymph % 35.7 % 24.0-44.0 normal Lymph % [facility] ([facility]) eos % 0.9 % 0.0-3.0 normal Eos % [facility] ([facility]) neutrophils # 3.1 10 1.5-8.5 normal Neutrophils # [facility] ( [facility]) nucleated red blood cell % 0.0 % 0-0 normal Nucleated Red Blood Cell % [facility] ([facility]) immature granulocyte % 0.0 % 0-3.0 normal Immature Gran ulocyte % [facility] ([facility]) baso % 1.0 % 0.0-1.0 normal Baso % [facility] ([facility]) lymph # 2.0 10 1.5-5.0 normal Lymph # [facility] ([facility]) baso # 0.1 10 0.0-0.2 normal Baso # [facility] ([facility]) mono # 0.5 10 0.0-0.8 normal [place] # [facility] ([facility]) eos # 0.1 10 0.0-0.5 normal Eos # [facility] ([facility]) ID Date Data Source [id number] 03/30/2020 02:00:00 PM EST [facility] ([facility]) Name Value Range Interpretation Code Description Data Alysa rce(s) Supporting Document(s) prolactin 4.4 NG/mL normal Prolactin [facility] ([facility]) ID Date Data Source [id number] 03/30/2020 02:00:00 PM EST [facility] ([facility]) Name Value Range Interpretation Code Description Data Alysa rce(s) Supporting Document(s) thyroid stimulating hormone 0.833 uIU/mL 0.358-3.740 normal Thyroid Stimulating Hormone [facility] ([facility]) ID Date Data Source [id number] 03/30/2020 02:00:00 PM EST [facility] ([facility]) Name Value Range Interpretation Code Description Data Alysa rce(s) Supporting Document(s) creatinine for GFR 0.73 mg/dL 0.55-1.30 normal Creatinine for GF R [facility] ([facility]) blood urea nitrogen 11 mg/dL 7-18 normal Blood Urea Nitro gen [facility] ([facility]) glucose, fasting 86 mg/dL 70-100 normal Glucose, Fasting AT [facility] ([facility]) glomerular filtration rate > 60.0 >60 normal Glomerula r Filtration Rate [facility] ([facility]) carbon dioxide level 29 mEq/L 21-32 normal Carbon Dioxide Level NAVEEN ([facility]) potassium serum 4.4 mEq/L 3.5-5.1 normal Potassium Serum ATHE ([facility]) chloride level 107 mEq/L 98-107 normal Chloride Level NAVEEN ([facility]) sodium level 140 mEq/L 136-145 normal Sodium Level [facility] ([facility]) calcium level 10.0 mg/dL 8.5-10.1 normal Calcium Level NAVEEN ( [facility]) anion gap 4 mEq/L 8-16 Below low normal Anion Gap [facility] ( [facility]) AST/SGOT 10 U/L 7-37 normal AST/SGOT [facility] ([facility]) ALT/SGPT 17 U/L 12-78 normal ALT/SGPT [facility] ([facility]) bilirubin,total 0.5 mg/dL 0.2-1.0 normal Bilirubin,total ATHE ([facility]) albumin/globulin ratio 1.2-2.2 Below low normal Albumin /globulin Ratio NAVEEN ([facility]) albumin 4.1 gm/dL 3.2-5.2 normal Albumin [facility] ([facility]) alkaline phosphatase 89 U/L 45-117 normal Alkaline Phosph atase [facility] ([facility]) total protein 7.8 gm/dL 6.4-8.2 normal Total Protein [facility] ( [facility]) ID Date Data Source [id number] 03/30/2020 02:00:00 PM EST [facility] ([facility]) Name Value Range Interpretation Code Description Data Alysa rce(s) Supporting Document(s) red blood count 4.34 10 4.00-5.40 normal Red Blood Count ATHE ([facility]) white blood count 5.7 10 4.0-10.0 normal White Blood Count N[facility] ([facility]) hematocrit 41.8 % 36.0-47.0 normal Hematocrit [facility] ([facility]) mean corpuscular volume 96.3 fL 80.0-96.0 Above high normal Mean Corpuscular Volume [facility] ([facility]) hemoglobin 13.7 g/dL 12.0-15.5 normal Hemoglobin [facility] ([facility]) mean corpuscular hemoglobin 31.6 pg 27.0-33.0 normal Mean Corpuscular Hemoglobin [facility] ([facility]) platelet count, automated 283 10 150-450 normal Platelet C ount, Automated [facility] ([facility]) neutrophils % 53.5 % 36.0-66.0 normal Neutrophils % NAVEEN ( [facility]) red cell distribution width 11.7 % 11.5-14.5 normal Red Cell Distribution Width [facility] ([facility]) mean corpuscular HGB conc 32.8 g/dL 32.0-36.5 normal Mean Corpu scular HGB Conc [facility] ([facility]) eos % 0.9 % 0.0-3.0 normal Eos % [facility] ([facility]) lymph % 35.7 % 24.0-44.0 normal Lymph % [facility] ([facility]) mono % 8.9 % 0.0-5.0 Above high normal [place] % [facility] ([facility]) immature granulocyte % 0.0 % 0-3.0 normal Immature Gran ulocyte % [facility] ([facility]) nucleated red blood cell % 0.0 % 0-0 normal Nucleated Red Blood Cell % [facility] ([facility]) baso % 1.0 % 0.0-1.0 normal Baso % [facility] ([facility]) eos # 0.1 10 0.0-0.5 normal Eos # [facility] ([facility]) mono # 0.5 10 0.0-0.8 normal [place] # [facility]EN ([facility]) lymph # 2.0 10 1.5-5.0 normal Lymph # [facility] ([facility]) neutrophils # 3.1 10 1.5-8.5 normal Neutrophils # [facility] ( [facility]) baso # 0.1 10 0.0-0.2 normal Baso # [facility] ([facility]) ID Date Data Source [id number] 03/30/2020 02:00:00 PM EST [facility] ([facility]) Name Value Range Interpretation Code Description Data Alysa rce(s) Supporting Document(s) prolactin 4.4 NG/mL normal Prolactin [facility] ([facility]) ID Date Data Source [id number] 03/30/2020 02:00:00 PM EST [facility] ([facility]) Name Value Range Interpretation Code Description Data Alysa rce(s) Supporting Document(s) thyroid stimulating hormone 0.833 uIU/mL 0.358-3.740 normal Thyroid Stimulating Hormone [facility] ([facility]) ID Date Data Source [id number] 03/30/2020 02:00:00 PM EST [facility] ([facility]) Name Value Range Interpretation Code Description Data Alysa rce(s) Supporting Document(s) blood urea nitrogen 11 mg/dL 7-18 normal Blood Urea Nitro gen [facility] ([facility]) glucose, fasting 86 mg/dL 70-100 normal Glucose, Fasting AT [facility]) potassium serum 4.4 mEq/L 3.5-5.1 normal Potassium Serum ATHE ([facility]) glomerular filtration rate > 60.0 >60 normal Glomerula r Filtration Rate [facility] ([facility]) sodium level 140 mEq/L 136-145 normal Sodium Level [facility] ([facility]) creatinine for GFR 0.73 mg/dL 0.55-1.30 normal Creatinine for GF R [facility] ([facility]) carbon dioxide level 29 mEq/L 21-32 normal Carbon Dioxide Level [facility] ([facility]) calcium level 10.0 mg/dL 8.5-10.1 normal Calcium Level [facility] ( [facility]) AST/SGOT 10 U/L 7-37 normal AST/SGOT [facility] ([facility]) chloride level 107 mEq/L 98-107 normal Chloride Level [facility] ([facility]) anion gap 4 mEq/L 8-16 Below low normal Anion Gap [facility] ( [facility]) ALT/SGPT 17 U/L 12-78 normal ALT/SGPT [facility] ([facility]) total protein 7.8 gm/dL 6.4-8.2 normal Total Protein [facility] ( [facility]) alkaline phosphatase 89 U/L 45-117 normal Alkaline Phosph atase [facility] ([facility]) bilirubin,total 0.5 mg/dL 0.2-1.0 normal Bilirubin,total ATHE NA ([facility]) albumin 4.1 gm/dL 3.2-5.2 normal Albumin [facility] ([facility]) albumin/globulin ratio 1.2-2.2 Below low normal Albumin /globulin Ratio [facility] ([facility]) ID Date Data Source [id number] 03/30/2020 02:00:00 PM EST [facility] ([facility]) Name Value Range Interpretation Code Description Data Alysa rce(s) Supporting Document(s) white blood count 5.7 10 4.0-10.0 normal White Blood Count [facility] ([facility]) hemoglobin 13.7 g/dL 12.0-15.5 normal Hemoglobin [facility] ([facility]) red blood count 4.34 10 4.00-5.40 normal Red Blood Count [facility] ([facility]) hematocrit 41.8 % 36.0-47.0 normal Hematocrit [facility] ([facility]) mean corpuscular volume 96.3 fL 80.0-96.0 Above high normal Mean Corpuscular Volume [facility] ([facility]) mean corpuscular hemoglobin 31.6 pg 27.0-33.0 normal Mean Corpuscular Hemoglobin [facility] ([facility]) mean corpuscular HGB conc 32.8 g/dL 32.0-36.5 normal Mean Corpu scular HGB Conc [facility] ([facility]) red cell distribution width 11.7 % 11.5-14.5 normal Red Cell Distribution Width [facility] ([facility]) platelet count, automated 283 10 150-450 normal Platelet C ount, Automated [facility] ([facility]) eos % 0.9 % 0.0-3.0 normal Eos % [facility] ([facility]) mono % 8.9 % 0.0-5.0 Above high normal [place] % [facility] ([facility]) lymph % 35.7 % 24.0-44.0 normal Lymph % [facility] ([facility]) neutrophils % 53.5 % 36.0-66.0 normal Neutrophils % N[facility] ( [facility]) neutrophils # 3.1 10 1.5-8.5 normal Neutrophils # N[facility]EN ( [facility]) nucleated red blood cell % 0.0 % 0-0 normal Nucleated Red Blood Cell % [facility] ([facility]) immature granulocyte % 0.0 % 0-3.0 normal Immature Gran ulocyte % [facility] ([facility]) baso % 1.0 % 0.0-1.0 normal Baso % [facility] ([facility]) lymph # 2.0 10 1.5-5.0 normal Lymph # [facility] ([facility]) eos # 0.1 10 0.0-0.5 normal Eos # [facility] ([facility]) mono # 0.5 10 0.0-0.8 normal [place] # [facility] ([facility]) baso # 0.1 10 0.0-0.2 normal Baso # [facility] ([facility]) ID Date Data Source [id number] 03/30/2020 02:00:00 PM EST N[facility] ([facility]) Name Value Range Interpretation Code Description Data Alysa rce(s) Supporting Document(s) prolactin 4.4 NG/mL normal Prolactin [facility] ([facility]) ID Date Data Source [id number] 03/30/2020 02:00:00 PM EST [facility] ([facility]) Name Value Range Interpretation Code Description Data Alysa rce(s) Supporting Document(s) thyroid stimulating hormone 0.833 uIU/mL 0.358-3.740 normal Thyroid Stimulating Hormone [facility] ([facility]) ID Date Data Source [id number] 03/30/2020 02:00:00 PM EST [facility] ([facility]) Name Value Range Interpretation Code Description Data Alysa rce(s) Supporting Document(s) creatinine for GFR 0.73 mg/dL 0.55-1.30 normal Creatinine for GF R [facility] ([facility]) blood urea nitrogen 11 mg/dL 7-18 normal Blood Urea Nitro gen [facility] ([facility]) glucose, fasting 86 mg/dL 70-100 normal Glucose, Fasting AT [facility] ([facility]) potassium serum 4.4 mEq/L 3.5-5.1 normal Potassium Serum ATHE ([facility]) glomerular filtration rate > 60.0 >60 normal Glomerula r Filtration Rate [facility] ([facility]) sodium level 140 mEq/L 136-145 normal Sodium Level NAVEEN ([facility]) chloride level 107 mEq/L 98-107 normal Chloride Level NAVEEN ([facility]) carbon dioxide level 29 mEq/L 21-32 normal Carbon Dioxide Level N[facility] ([facility]) anion gap 4 mEq/L 8-16 Below low normal Anion Gap [facility] ( [facility]) calcium level 10.0 mg/dL 8.5-10.1 normal Calcium Level [facility] ( [facility]) ALT/SGPT 17 U/L 12-78 normal ALT/SGPT [facility] ([facility]) alkaline phosphatase 89 U/L 45-117 normal Alkaline Phosph atase [facility] ([facility]) AST/SGOT 10 U/L 7-37 normal AST/SGOT [facility] ([facility]) bilirubin,total 0.5 mg/dL 0.2-1.0 normal Bilirubin,total ATHE ([facility]) albumin 4.1 gm/dL 3.2-5.2 normal Albumin [facility] ([facility]) total protein 7.8 gm/dL 6.4-8.2 normal Total Protein [facility] ( [facility]) albumin/globulin ratio 1.2-2.2 Below low normal Albumin /globulin Ratio [facility] ([facility]) ID Date Data Source [id number] 03/30/2020 02:00:00 PM EST [facility] ([facility]) Name Value Range Interpretation Code Description Data Alysa rce(s) Supporting Document(s) white blood count 5.7 10 4.0-10.0 normal White Blood Count [facility] ([facility]) red blood count 4.34 10 4.00-5.40 normal Red Blood Count [facility] ([facility]) hemoglobin 13.7 g/dL 12.0-15.5 normal Hemoglobin [facility] ([facility]) hematocrit 41.8 % 36.0-47.0 normal Hematocrit [facility] ([facility]) mean corpuscular hemoglobin 31.6 pg 27.0-33.0 normal Mean Corpuscular Hemoglobin [facility] ([facility]) mean corpuscular HGB conc 32.8 g/dL 32.0-36.5 normal Mean Corpu scular HGB Conc [facility] ([facility]) mean corpuscular volume 96.3 fL 80.0-96.0 Above high normal Mean Corpuscular Volume [facility] ([facility]) platelet count, automated 283 10 150-450 normal Platelet C ount, Automated [place] ([facility]) neutrophils % 53.5 % 36.0-66.0 normal Neutrophils % [facility] ( [facility]) red cell distribution width 11.7 % 11.5-14.5 normal Red Cell Distribution Width [facility] ([facility]) mono % 8.9 % 0.0-5.0 Above high normal [place] % [facility] ([facility]) eos % 0.9 % 0.0-3.0 normal Eos % [facility] ([facility]) lymph % 35.7 % 24.0-44.0 normal Lymph % [facility] ([facility]) baso % 1.0 % 0.0-1.0 normal Baso % [facility] ([facility]) immature granulocyte % 0.0 % 0-3.0 normal Immature Gran ulocyte % [facility] ([facility]) nucleated red blood cell % 0.0 % 0-0 normal Nucleated Red Blood Cell % [facility] ([facility]) neutrophils # 3.1 10 1.5-8.5 normal Neutrophils # [facility] ( [facility]) lymph # 2.0 10 1.5-5.0 normal Lymph # [facility] ([facility]) baso # 0.1 10 0.0-0.2 normal Baso # [facility] ([facility]) mono # 0.5 10 0.0-0.8 normal [place] # [facility] ([facility]) eos # 0.1 10 0.0-0.5 normal Eos # [facility] ([facility]) ID Date Data Source [id number] 03/30/2020 02:00:00 PM EST [facility] ([facility]) Name Value Range Interpretation Code Description Data Alysa rce(s) Supporting Document(s) prolactin 4.4 NG/mL normal Prolactin [facility] ([facility]) ID Date Data Source [id number] 03/30/2020 02:00:00 PM EST [facility] ([facility]) Name Value Range Interpretation Code Description Data Alysa rce(s) Supporting Document(s) thyroid stimulating hormone 0.833 uIU/mL 0.358-3.740 normal Thyroid Stimulating Hormone [facility] ([facility]) ID Date Data Source [id number] 03/30/2020 02:00:00 PM EST [facility] ([facility]) Name Value Range Interpretation Code Description Data Alysa rce(s) Supporting Document(s) glucose, fasting 86 mg/dL 70-100 normal Glucose, Fasting AT [facility] ([facility]) creatinine for GFR 0.73 mg/dL 0.55-1.30 normal Creatinine for GF R [facility] ([facility]) blood urea nitrogen 11 mg/dL 7-18 normal Blood Urea Nitro gen [facility] ([facility]) sodium level 140 mEq/L 136-145 normal Sodium Level [facility]EN ([facility]) glomerular filtration rate > 60.0 >60 normal Glomerula r Filtration Rate [facility] ([facility]) potassium serum 4.4 mEq/L 3.5-5.1 normal Potassium Serum ATHE ([facility]) carbon dioxide level 29 mEq/L 21-32 normal Carbon Dioxide Level [facility] ([facility]) chloride level 107 mEq/L 98-107 normal Chloride Level [facility] ([facility]) anion gap 4 mEq/L 8-16 Below low normal Anion Gap [facility] ( [facility]) calcium level 10.0 mg/dL 8.5-10.1 normal Calcium Level [facility] ( [facility]) AST/SGOT 10 U/L 7-37 normal AST/SGOT [facility] ([facility]) ALT/SGPT 17 U/L 12-78 normal ALT/SGPT [facility] ([facility]) alkaline phosphatase 89 U/L 45-117 normal Alkaline Phosph atase [facility] ([facility]) bilirubin,total 0.5 mg/dL 0.2-1.0 normal Bilirubin,total ATHE ([facility]) albumin 4.1 gm/dL 3.2-5.2 normal Albumin [facility] ([facility]) total protein 7.8 gm/dL 6.4-8.2 normal Total Protein [facility] ( [facility]) albumin/globulin ratio 1.2-2.2 Below low normal Albumin /globulin Ratio [facility] ([facility]) ID Date Data Source [id number] 03/30/2020 02:00:00 PM EST [facility] ([facility]) Name Value Range Interpretation Code Description Data Alysa rce(s) Supporting Document(s) hemoglobin 13.7 g/dL 12.0-15.5 normal Hemoglobin [facility] ([facility]) white blood count 5.7 10 4.0-10.0 normal White Blood Count [facility] ([facility]) red blood count 4.34 10 4.00-5.40 normal Red Blood Count [facility] ([facility]) mean corpuscular volume 96.3 fL 80.0-96.0 Above high normal Mean Corpuscular Volume [facility] ([facility]) hematocrit 41.8 % 36.0-47.0 normal Hematocrit [facility] ([facility]) mean corpuscular hemoglobin 31.6 pg 27.0-33.0 normal Mean Corpuscular Hemoglobin [facility] ([facility]) neutrophils % 53.5 % 36.0-66.0 normal Neutrophils % [facility] ( [facility]) platelet count, automated 283 10 150-450 normal Platelet C ount, Automated [facility] ([facility]) mean corpuscular HGB conc 32.8 g/dL 32.0-36.5 normal Mean Corpu scular HGB Conc [facility] ([facility]) red cell distribution width 11.7 % 11.5-14.5 normal Red Cell Distribution Width [facility] ([facility]) eos % 0.9 % 0.0-3.0 normal Eos % [facility] ([facility]) lymph % 35.7 % 24.0-44.0 normal Lymph % [facility] ([facility]) mono % 8.9 % 0.0-5.0 Above high normal [place] % [facility] ([facility]) neutrophils # 3.1 10 1.5-8.5 normal Neutrophils # [facility] ( [facility]) immature granulocyte % 0.0 % 0-3.0 normal Immature Gran ulocyte % [facility] ([facility]) baso % 1.0 % 0.0-1.0 normal Baso % [facility] ([facility]) nucleated red blood cell % 0.0 % 0-0 normal Nucleated Red Blood Cell % [facility] ([facility]) lymph # 2.0 10 1.5-5.0 normal Lymph # [facility] ([facility]) baso # 0.1 10 0.0-0.2 normal Baso # [facility] ([facility]) eos # 0.1 10 0.0-0.5 normal Eos # [facility] ([facility]) mono # 0.5 10 0.0-0.8 normal [place] # [facility] ([facility]) ID Date Data Source [id number] 03/30/2020 02:00:00 PM EST [facility] ([facility]) Name Value Range Interpretation Code Description Data Alysa rce(s) Supporting Document(s) prolactin 4.4 NG/mL normal Prolactin [facility] ([facility]) ID Date Data Source [id number] 03/30/2020 02:00:00 PM EST [facility] ([facility]) Name Value Range Interpretation Code Description Data Alysa rce(s) Supporting Document(s) thyroid stimulating hormone 0.833 uIU/mL 0.358-3.740 normal Thyroid Stimulating Hormone [facility] ([facility]) ID Date Data Source [id number] 03/30/2020 02:00:00 PM EST [place] ([facility]) Name Value Range Interpretation Code Description Data Alysa rce(s) Supporting Document(s) blood urea nitrogen 11 mg/dL 7-18 normal Blood Urea Nitro gen [facility] ([facility]) creatinine for GFR 0.73 mg/dL 0.55-1.30 normal Creatinine for GF R [facility] ([facility]) glucose, fasting 86 mg/dL 70-100 normal Glucose, Fasting AT [facility]) glomerular filtration rate > 60.0 >60 normal Glomerula r Filtration Rate [facility] ([facility]) chloride level 107 mEq/L 98-107 normal Chloride Level [facility] ([facility]) potassium serum 4.4 mEq/L 3.5-5.1 normal Potassium Serum ATH NA ([facility]) sodium level 140 mEq/L 136-145 normal Sodium Level [facility] ([facility]) carbon dioxide level 29 mEq/L 21-32 normal Carbon Dioxide Level [facility] ([facility]) calcium level 10.0 mg/dL 8.5-10.1 normal Calcium Level [facility] ( [facility]) anion gap 4 mEq/L 8-16 Below low normal Anion Gap [facility] ( [facility]) AST/SGOT 10 U/L 7-37 normal AST/SGOT [facility] ([facility]) ALT/SGPT 17 U/L 12-78 normal ALT/SGPT [facility] ([facility]) alkaline phosphatase 89 U/L 45-117 normal Alkaline Phosph atase [facility] ([facility]) bilirubin,total 0.5 mg/dL 0.2-1.0 normal Bilirubin,total ATHE NA ([facility]) albumin 4.1 gm/dL 3.2-5.2 normal Albumin [facility] ([facility]) total protein 7.8 gm/dL 6.4-8.2 normal Total Protein [facility] ( [facility]) albumin/globulin ratio 1.2-2.2 Below low normal Albumin /globulin Ratio [facility] ([facility]) ID Date Data Source [id number] 03/30/2020 02:00:00 PM EST [facility] ([facility]) Name Value Range Interpretation Code Description Data Alysa rce(s) Supporting Document(s) red blood count 4.34 10 4.00-5.40 normal Red Blood Count [facility] ([facility]) white blood count 5.7 10 4.0-10.0 normal White Blood Count [facility] ([facility]) hemoglobin 13.7 g/dL 12.0-15.5 normal Hemoglobin [facility] ([facility]) hematocrit 41.8 % 36.0-47.0 normal Hematocrit [facility] ([facility]) mean corpuscular hemoglobin 31.6 pg 27.0-33.0 normal Mean Corpuscular Hemoglobin [facility] ([facility]) mean corpuscular volume 96.3 fL 80.0-96.0 Above high normal Mean Corpuscular Volume [facility] ([facility]) mean corpuscular HGB conc 32.8 g/dL 32.0-36.5 normal Mean Corpu scular HGB Conc [facility] ([facility]) red cell distribution width 11.7 % 11.5-14.5 normal Red Cell Distribution Width [facility] ([facility]) platelet count, automated 283 10 150-450 normal [facility] neutrophils % 53.5 % 36.0-66.0 normal [facility]rophils [facility] mono % 8.9 % 0.0-5.0 Above high normal [place] % [facility] ([facility]) eos % 0.9 % 0.0-3.0 normal Eos % [facility] ([facility]) baso % 1.0 % 0.0-1.0 normal Baso % [facility] ([facility]) lymph % 35.7 % 24.0-44.0 normal Lymph % [facility] ([facility]) lymph # 2.0 10 1.5-5.0 normal Lymph # [facility] ([facility]) neutrophils # 3.1 10 1.5-8.5 normal Neutrophils # [facility] ( [facility]) immature granulocyte % 0.0 % 0-3.0 normal Immature Gran ulocyte % [facility] ([facility]) nucleated red blood cell % 0.0 % 0-0 normal Nucleated Red Blood Cell % [facility] ([facility]) eos # 0.1 10 0.0-0.5 normal Eos # [facility] ([facility]) baso # 0.1 10 0.0-0.2 normal Baso # [facility] ([facility]) mono # 0.5 10 0.0-0.8 normal [place] # [facility] ([facility]) ID Date Data Source [id number] 03/30/2020 02:00:00 PM EST [facility] ([facility]) Name Value Range Interpretation Code Description Data Alysa rce(s) Supporting Document(s) prolactin 4.4 NG/mL normal Prolactin [facility] ([facility]) ID Date Data Source [id number] 03/30/2020 02:00:00 PM EST [facility] ([facility]) Name Value Range Interpretation Code Description Data Alysa rce(s) Supporting Document(s) thyroid stimulating hormone 0.833 uIU/mL 0.358-3.740 normal Thyroid Stimulating Hormone [facility] ([facility]) ID Date Data Source [id number] 03/30/2020 02:00:00 PM EST [facility] ([facility]) Name Value Range Interpretation Code Description Data Alysa rce(s) Supporting Document(s) glucose, fasting 86 mg/dL 70-100 normal Glucose, Fasting AT [facility] ([facility]) blood urea nitrogen 11 mg/dL 7-18 normal Blood Urea Nitro gen [facility] ([facility]) sodium level 140 mEq/L 136-145 normal Sodium Level [facility] ([facility]) potassium serum 4.4 mEq/L 3.5-5.1 normal Potassium Serum ATHE NA ([facility]) creatinine for GFR 0.73 mg/dL 0.55-1.30 normal Creatinine for GF R [facility] ([facility]) glomerular filtration rate > 60.0 >60 normal Glomerula r Filtration Rate [facility] ([facility]) carbon dioxide level 29 mEq/L 21-32 normal Carbon Dioxide Level [facility] ([facility]) chloride level 107 mEq/L 98-107 normal Chloride Level [facility] ([facility]) anion gap 4 mEq/L 8-16 Below low normal Anion Gap [facility] ( [facility]) AST/SGOT 10 U/L 7-37 normal AST/SGOT [facility] ([facility]) ALT/SGPT 17 U/L 12-78 normal ALT/SGPT [facility] ([facility]) calcium level 10.0 mg/dL 8.5-10.1 normal Calcium Level [facility] ( [facility]) alkaline phosphatase 89 U/L 45-117 normal Alkaline Phosph atase [facility] ([facility]) bilirubin,total 0.5 mg/dL 0.2-1.0 normal Bilirubin,total AT[facility] ([facility] [facility] total protein 7.8 gm/dL 6.4-8.2 normal Total Protein NAVEEN ( [facility]) albumin/globulin ratio 1.2-2.2 Below low normal Albumin /globulin Ratio NAVEEN ([facility]) albumin 4.1 gm/dL 3.2-5.2 normal Albumin NAVEEN ([facility]) ID Date Data Source [id number] 03/30/2020 02:00:00 PM EST NAVEEN ([facility]) Name Value Range Interpretation Code Description Data Alysa rce(s) Supporting Document(s) white blood count 5.7 10 4.0-10.0 normal White Blood Count NAVEEN ([facility]) red blood count 4.34 10 4.00-5.40 normal Red Blood Count ATHE NA ([facility]) hemoglobin 13.7 g/dL 12.0-15.5 normal Hemoglobin NAVEEN ([facility]) hematocrit 41.8 % 36.0-47.0 normal Hematocrit NAVEEN ([facility]) red cell distribution width 11.7 % 11.5-14.5 normal Red Cell Distribution Width NAVEEN ([facility]) mean corpuscular HGB conc 32.8 g/dL 32.0-36.5 normal Mean Corpu scular HGB Conc NAVEEN ([facility]) mean corpuscular volume 96.3 fL 80.0-96.0 Above high normal Mean Corpuscular Volume NAVEEN ([facility]) mean corpuscular hemoglobin 31.6 pg 27.0-33.0 normal Mean Corpuscular Hemoglobin NAVEEN ([facility]) neutrophils % 53.5 % 36.0-66.0 normal Neutrophils % NAVEEN ( [facility]) lymph % 35.7 % 24.0-44.0 normal Lymph % NAVEEN ([facility]) platelet count, automated 283 10 150-450 normal Platelet C ount, Automated NAVEEN ([facility]) mono % 8.9 % 0.0-5.0 Above high normal [place] % NAVEEN ([facility]) eos % 0.9 % 0.0-3.0 normal Eos % NAVEEN ([facility]) baso % 1.0 % 0.0-1.0 normal Baso % NAVEEN ([facility]) nucleated red blood cell % 0.0 % 0-0 normal Nucleated Red Blood Cell % NAVEEN ([facility]) immature granulocyte % 0.0 % 0-3.0 normal Immature Gran ulocyte % NAVEEN ([facility]) neutrophils # 3.1 10 1.5-8.5 normal Neutrophils # NAVEEN ( [facility]) mono # 0.5 10 0.0-0.8 normal [place] # NAVEEN ([facility]) lymph # 2.0 10 1.5-5.0 normal Lymph # NAVEEN ([facility]) eos # 0.1 10 0.0-0.5 normal Eos # NAVEEN ([facility]) baso # 0.1 10 0.0-0.2 normal Baso # NAVEEN ([facility]) ID Date Data Source [id number] 03/30/2020 02:00:00 PM EST NAVEEN ([facility]) Name Value Range Interpretation Code Description Data Alysa rce(s) Supporting Document(s) prolactin 4.4 NG/mL normal Prolactin ST[place]FFORD ([facility]) ID Date Data Source [id number] 03/30/2020 02:00:00 PM EST NAVEEN ([facility]) Name Value Range Interpretation Code Description Data Alysa rce(s) Supporting Document(s) thyroid stimulating hormone 0.833 uIU/mL 0.358-3.740 normal Thyroid Stimulating Hormone [place] ([facility]) ID Date Data Source [id number] 03/30/2020 02:00:00 PM EST NAVEEN ([facility]) Name Value Range Interpretation Code Description Data Alysa rce(s) Supporting Document(s) glucose, fasting 86 mg/dL 70-100 normal Glucose, Fasting AT [facility]) blood urea nitrogen 11 mg/dL 7-18 normal Blood Urea Nitro gen NAVEEN ([facility]) creatinine for GFR 0.73 mg/dL 0.55-1.30 normal Creatinine for GF R ST[place]FFORD ([facility]) chloride level 107 mEq/L 98-107 normal Chloride Level ST[place] ([facility]) sodium level 140 mEq/L 136-145 normal Sodium Level NAVEEN (No [facility]) glomerular filtration rate > 60.0 >60 normal Glomerula r Filtration Rate STAFFORD ([facility]) potassium serum 4.4 mEq/L 3.5-5.1 normal Potassium Serum ATHE NA ([facility]) anion gap 4 mEq/L 8-16 Below low normal Anion Gap NAVEEN ( [facility]) carbon dioxide level 29 mEq/L 21-32 normal Carbon Dioxide Level NAVEEN ([facility]) calcium level 10.0 mg/dL 8.5-10.1 normal Calcium Level NAVEEN ( [facility]) AST/SGOT 10 U/L 7-37 normal AST/SGOT NAVEEN ([facility]) bilirubin,total 0.5 mg/dL 0.2-1.0 normal Bilirubin,total ATHE NA ([facility]) alkaline phosphatase 89 U/L 45-117 normal Alkaline Phosph atase NAVEEN ([facility]) ALT/SGPT 17 U/L 12-78 normal ALT/SGPT NAVEEN ([facility]) total protein 7.8 gm/dL 6.4-8.2 normal Total Protein NAVEEN ( [facility]) albumin 4.1 gm/dL 3.2-5.2 normal Albumin NAVEEN ([facility]) albumin/globulin ratio 1.2-2.2 Below low normal Albumin /globulin Ratio NAVEEN ([facility]) ID Date Data Source [id number] 03/30/2020 02:00:00 PM EST NAVEEN ([facility]) Name Value Range Interpretation Code Description Data Alysa rce(s) Supporting Document(s) white blood count 5.7 10 4.0-10.0 normal White Blood Count NAVEEN ([facility]) red blood count 4.34 10 4.00-5.40 normal Red Blood Count ATHE ([facility]) hemoglobin 13.7 g/dL 12.0-15.5 normal Hemoglobin NAVEEN ([facility]) mean corpuscular hemoglobin 31.6 pg 27.0-33.0 normal Mean Corpuscular Hemoglobin NAVEEN ([facility]) hematocrit 41.8 % 36.0-47.0 normal Hematocrit NAVEEN ([facility]) mean corpuscular volume 96.3 fL 80.0-96.0 Above high normal Mean Corpuscular Volume NAVEEN ([facility]) mean corpuscular HGB conc 32.8 g/dL 32.0-36.5 normal Mean Corpu scular HGB Conc ST[place] ([facility]) platelet count, automated 283 10 150-450 normal Platelet C ount, Automated NAVEEN ([facility]) red cell distribution width 11.7 % 11.5-14.5 normal Red Cell Distribution Width NAVEEN ([facility]) neutrophils % 53.5 % 36.0-66.0 normal Neutrophils % NAVEEN ( [facility]) baso % 1.0 % 0.0-1.0 normal Baso % ST[place] ([facility]) eos % 0.9 % 0.0-3.0 normal Eos % ST[place]ORD ([facility]) mono % 8.9 % 0.0-5.0 Above high normal [place] % ST[place] ([facility]) lymph % 35.7 % 24.0-44.0 normal Lymph % ST[place] ([facility]) neutrophils # 3.1 10 1.5-8.5 normal Neutrophils # NAVEEN ( [facility]) immature granulocyte % 0.0 % 0-3.0 normal Immature Gran ulocyte % STA[place]ORD ([facility]) nucleated red blood cell % 0.0 % 0-0 normal Nucleated Red Blood Cell % ST[place] ([facility]) baso # 0.1 10 0.0-0.2 normal Baso # NAVEEN ([facility]) eos # 0.1 10 0.0-0.5 normal Eos # NAVEEN ([facility]) lymph # 2.0 10 1.5-5.0 normal Lymph # NAVEEN ([facility]) mono # 0.5 10 0.0-0.8 normal [place] # ST[place]FFORD ([facility]) ID Date Data Source [id number] 03/30/2020 02:00:00 PM EST [place] ([facility]) Name Value Range Interpretation Code Description Data Alysa rce(s) Supporting Document(s) prolactin 4.4 NG/mL normal Prolactin [place] ([facility]) ID Date Data Source [id number] 03/08/2020 10:45:00 AM EST [facility]) Name Value Range Interpretation Code Description Data Alysa rce(s) Supporting Document(s) SARS-CoV-2 (COVID-19) RNA [Presence] in Respiratory specimen by CEM with probe detection not detected not detected normal Sars Cov 2 RNA [facility]) ID Date Data Source [id number] 03/08/2020 10:45:00 AM EST [facility]) Name Value Range Interpretation Code Description Data Alysa rce(s) Supporting Document(s) SARS-CoV-2 (COVID-19) RNA [Presence] in Respiratory specimen by CEM with probe detection not detected not detected normal Sars Cov 2 RNA [facility]) ID Date Data Source [id number] 03/08/2020 10:45:00 AM EST [facility]) Name Value Range Interpretation Code Description Data Alysa rce(s) Supporting Document(s) SARS-CoV-2 (COVID-19) RNA [Presence] in Respiratory specimen by CEM with probe detection not detected not detected normal Sars Cov 2 RNA [facility]) ID Date Data Source [id number] 03/08/2020 10:45:00 AM EST [facility]) Name Value Range Interpretation Code Description Data Alysa rce(s) Supporting Document(s) SARS-CoV-2 (COVID-19) RNA [Presence] in Respiratory specimen by CEM with probe detection not detected not detected normal Sars Cov 2 RNA [facility]) ID Date Data Source [id number] 03/08/2020 10:45:00 AM EST [facility]) Name Value Range Interpretation Code Description Data Alysa rce(s) Supporting Document(s) SARS-CoV-2 (COVID-19) RNA [Presence] in Respiratory specimen by CEM with probe detection not detected not detected normal Sars Cov 2 RNA [facility]) ID Date Data Source [id number] 03/08/2020 10:45:00 AM EST [facility]) Name Value Range Interpretation Code Description Data Alysa rce(s) Supporting Document(s) SARS-CoV-2 (COVID-19) RNA [Presence] in Respiratory specimen by CEM with probe detection not detected not detected normal Sars Cov 2 RNA [facility]) ID Date Data Source [id number] 03/08/2020 10:45:00 AM EST [facility]) Name Value Range Interpretation Code Description Data Alysa rce(s) Supporting Document(s) SARS-CoV-2 (COVID-19) RNA [Presence] in Respiratory specimen by CEM with probe detection not detected not detected normal Sars Cov 2 RNA [facility]) ID Date Data Source [id number] 03/08/2020 10:45:00 AM EST [facility]) Name Value Range Interpretation Code Description Data Alysa rce(s) Supporting Document(s) SARS-CoV-2 (COVID-19) RNA [Presence] in Respiratory specimen by CEM with probe detection not detected not detected normal Sars Cov 2 RNA [facility]) ID Date Data Source [id number] 03/08/2020 10:45:00 AM EST [facility]) Name Value Range Interpretation Code Description Data Alysa rce(s) Supporting Document(s) SARS-CoV-2 (COVID-19) RNA [Presence] in Respiratory specimen by CEM with probe detection not detected not detected normal Sars Cov 2 RNA [facility]) ID Date Data Source [id number] 03/08/2020 10:45:00 AM EST [facility]) Name Value Range Interpretation Code Description Data Alysa rce(s) Supporting Document(s) SARS-CoV-2 (COVID-19) RNA [Presence] in Respiratory specimen by CEM with probe detection not detected not detected normal Sars Cov 2 RNA [facility]) ID Date Data Source [id number] 03/08/2020 10:45:00 AM EST [facility]) Name Value Range Interpretation Code Description Data Alysa rce(s) Supporting Document(s) SARS-CoV-2 (COVID-19) RNA [Presence] in Respiratory specimen by CEM with probe detection not detected not detected normal Sars Cov 2 RNA [facility]) ID Date Data Source [id number] 03/08/2020 10:45:00 AM EST [facility]) Name Value Range Interpretation Code Description Data Alysa rce(s) Supporting Document(s) SARS-CoV-2 (COVID-19) RNA [Presence] in Respiratory specimen by CEM with probe detection not detected not detected normal Sars Cov 2 RNA [facility]) ID Date Data Source [id number] 03/08/2020 10:45:00 AM EST [facility]) Name Value Range Interpretation Code Description Data Alysa rce(s) Supporting Document(s) SARS-CoV-2 (COVID-19) RNA [Presence] in Respiratory specimen by CEM with probe detection not detected not detected normal Sars Cov 2 RNA [facility]) ID Date Data Source [id number] 03/08/2020 10:45:00 AM EST [facility]) Name Value Range Interpretation Code Description Data Alysa rce(s) Supporting Document(s) SARS-CoV-2 (COVID-19) RNA [Presence] in Respiratory specimen by CEM with probe detection not detected not detected normal Sars Cov 2 RNA [facility]) ID Date Data Source [id number] 03/08/2020 10:45:00 AM EST [facility]) Name Value Range Interpretation Code Description Data Alysa rce(s) Supporting Document(s) SARS-CoV-2 (COVID-19) RNA [Presence] in Respiratory specimen by CEM with probe detection not detected not detected normal Sars Cov 2 RNA [facility]) ID Date Data Source [id number] 03/08/2020 10:45:00 AM EST [facility]) Name Value Range Interpretation Code Description Data Alysa rce(s) Supporting Document(s) SARS-CoV-2 (COVID-19) RNA [Presence] in Respiratory specimen by CEM with probe detection not detected not detected normal Sars Cov 2 RNA [facility]) ID Date Data Source [id number] 03/08/2020 10:45:00 AM EST [facility]) Name Value Range Interpretation Code Description Data Alysa rce(s) Supporting Document(s) SARS-CoV-2 (COVID-19) RNA [Presence] in Respiratory specimen by CEM with probe detection not detected not detected normal Sars Cov 2 RNA [facility]) ID Date Data Source [id number] 03/08/2020 10:45:00 AM EST [facility]) Name Value Range Interpretation Code Description Data Alysa rce(s) Supporting Document(s) SARS-CoV-2 (COVID-19) RNA [Presence] in Respiratory specimen by CEM with probe detection not detected not detected normal Sars Cov 2 RNA [facility]) ID Date Data Source [id number] 03/08/2020 10:45:00 AM EST [facility]) Name Value Range Interpretation Code Description Data Alysa rce(s) Supporting Document(s) SARS-CoV-2 (COVID-19) RNA [Presence] in Respiratory specimen by CEM with probe detection not detected not detected normal Sars Cov 2 RNA [facility]AVEEN ([facility]) ID Date Data Source [id number] 03/08/2020 10:45:00 AM EST NAVEEN ([facility]) Name Value Range Interpretation Code Description Data Alysa rce(s) Supporting Document(s) SARS-CoV-2 (COVID-19) RNA [Presence] in Respiratory specimen by CEM with probe detection not detected not detected normal Sars Cov 2 RNA NAVEEN ([facility]) ID Date Data Source [id number] 01/26/2020 11:25:45 AM EDT [facility] Measurements & CalculationsHeight: 63 inches (5 ft. 3 in.) 160.02 cm Weight: 134 pounds 6 oz. 61.08 kg Body Mass Index (BMI): 23.89BMI Interpretation: Healthy WeightBody Surface Area (BSA): 1.63Weight Management Education Done (Nutrition/Physical Activity)Vital SignsTemperature: 98.6F tympanic Pulse Rate: 81 beats/minuteRespiratory Rate: 16 respirations/minuteBlood Pressure: 105/71 left arm sitting automaticO2 Saturation: 97% sittingVital Signs performed by: Parish Lima MA, January 26, 2020 11:41 AMNurses Note 24 yo female Pt, complains of nipple discharge X 5 days. Pt states it is " black & yellow" and producing less discharge today than earlier this week.Initial Intake Information From: patientRoom #: 13Infectious Disease / Travel ScreeningRecent travel for you or any close contacts? NoHave you had any close contact with anyone diagnosed with or under investigation for COVID-19 (coronavirus)? NoFever? NoRespiratory symptoms: cough, cold, congestion, shortness of breath, difficulty breathing? NoLoss of smell? NoLoss of taste? NoSmoking, Tobacco, Vaping or Smoke Exposure StatusSmoke Status: former smokerTobacco Use: NoDo you vape? NoMenstrual HistoryLast Menstrual Period (LMP): 12/28/2019Any possibility of ? NoComments: Pt states uses IUDHealthcare HistorySince your last office visit...Have you been admitted to the hospital? NoHave you been to an emergency room (ER) or urgent care clinic? NoHave you seen another healthcare provider? NoHave you seen a dentist? Yes - NoCoDental exam date reported today: 11/18/2019Intake performed by: Parish Lima MA, January 26, 2020 11:33 AMScreening, Brief Intervention, & Referral to Treatment (SBIRT)Pre-Screening Questions How many times have you have 4 or more drinks in a day? 0How many times have you used an illegal drug or used a prescription medication for a non-medical reason? 365Performed by: Parish Lima MA, January 26, 2020 11:33 AMPatient History Medical History:MigrainesADHDDepression /AnxietyPTSDSurgical History:Mass removed from L Breast 2012wisdom teethFamily History:Anxiety (Mother)Depression (Mother)Social/Personal History: Chief Complaintfollow-up visit/ nipple dischargeHistory of Present Illness (HPI)24 yo female presents for left nipple pain and right nipple discharge x 1-2 weeks. Describes discharge from right nipple as black and thin. NO breast pain, skin changes, or tenderness. No masses felt. LMP last month due for next in a few days, on paraguard. (placed 1-2 years ago).States there is no chance she could be . No other concerns or complaints.Transitions of Care InboundProblem ReviewProblem List was reviewed and/or updated during this visit.Adult Preventive CareProvider Calculated and Reviewed all Clinical Protocols for patient today. Labs/Meds/Other Counseling- Nutrition and Physical Activity:BMI Interpretation: Healthy Weight (01/26/2020) Counseling: Done (01/26/2020) Physical Activity: Done (01/26/2020)Cancer Screening Pap Smear/HPV TestingReviewed: Previous Comments: today (12/27/2016)Today's Comments: Pt states Pap last year at [facility] (2019)Review of Systems General: Denies loss of appetite, chills, dizziness, fatigue, fever, continued fever, headache, feeling ill, sweats, night sweats, sleep disturbances, weight loss. Breast: Complains of breast changes, nipple discharge. Denies discoloration, tenderness, breast lump. Genitourinary: Denies urinary incontinence, pain with urination, burning with urination, ur inary frequency, urinary hesitancy, urinary urgency, urinary urgency at night, incomplete emptying, blood in urine, absence of menstrual period, heavy menstrual period, prolonged menstrual period, pelvic pain, abnormal vaginal bleeding, painful intercourse, vaginal discharge, vaginal sores, vaginal itching, genital foul odor, genital sores, genital burning, genital itching, genital warts, anal discharge, anal sores, anal warts. Physical ExamGeneral Appearance: well nourished, well hydrated, no acute distressEyes, External: conjunctivae and lids normal, EOMIChest Wall: non-tender, no massesBreasts, Inspection: no asymmetry, skin changes, or nipple discharge on palpation today. Breasts, Palpation: no masses or tendernessRespiratory, Auscultation: clear to auscultation bilaterally; no rales, rhonchi, or wheezesRespiratory, Effort: no intercostal retractions or use of accessory musclesCardiovascular, Auscultation: S1, S2 audible; no murmur, rub, or gallop; RRRAbdomen: soft, non-tender, no masses, bowel sounds normalChaperone During Exam: declinedCare Management Plan Transitions of CareInboundAssessment & Plan Problems:Added: Sore nipple (ICD- 780.99) (LBR21-Q09.59) Assessment: left nipple sore, will get breast US as screeningDischarge from right nipple (NDP94-Z29.52) Assessment: no discharge today on exam. will get labs if imaging comes back normal. could be medication side effects.Assessment not Saved Discharge from right nipple (BOO73-U28.52): Comment Onlyno discharge today on exam. will get labs if imaging comes back normal. could be medication side effects. will proceed based on testing.Orders:Ultrasound, breast, unilateral; complete [CPT-83977] Ultrasound, breast, unilateral; complete [CPT-23095] Adult - Ofc Vst, EST, Level III [CPT- 64965] Follow-Up Return to clinic: if symptoms persist Clinical Visit Summary Declined Name Value Range Interpretation Code Description Data Alysa rce(s) Supporting Document(s) ID Date Data Source [id number] 12/13/2019 11:07:05 AM EDT [facility] Patient History Medical History:Migraine sADHDDepression /AnxietyFamily History:Anxiety (Mother)Depression (Mother)Social/Personal History: Smoking Status: former smokerCurrent Problems: Dental caries (ICD-521.00) (ICD10- K02.9)Pain in unspecified knee (ICD-719.46) (WLA37-E31.569)Low back pain (ICD- 724.2) (XGK48-O44.5)Unspecified lump in the right breast, upper outer quadrant (ZWF73-N66.11)Dental caries (ICD-521.00) (XPT49-B43.9)PTSD (ICD-309.81) (ICD10- F43.10)Major depression, recurrent, moderate (ICD-296.32) (HIF45-T39.1)Bipolar disorder, current episode depressed, mild or moderate severity, unspecified (SXO43-S28.30)Attention deficit hyperactivity disorder, combined type (ICD- 314.01) (IKF33-P30.2)DENTAL CARIES EXTENDING INTO DENTINE (ICD-521.02) (ICD10- K02.62)DEPRESSIVE DISORDER, MAJOR, RECURRENT EPISODE, SEVERE (ICD-296.33) (KNY27-P95.2)GENERALIZED ANXIETY DISORDER (ICD-300.02) (LDF10-Z82.1)DENTAL CARIES EXTENDING INTO DENTINE (ICD-521.02) (RDR52-Y36.62)Vitamin D deficiency, unspecified (DBZ81-U93.9)Dental caries (ICD-521.00) (MXP61-T70.9)Encounter for screening for other metabolic disorders (VEZ30-V28.228)Sinus bradycardia (ICD- 427.89) (XOH82-Q75.1)Unspecified dyspareunia (AMZ90-S56.10)DENTAL CARIES EXTENDING INTO DENTINE (ICD-521.02) (XLN21-B30.62)Dental caries (ICD-521.00) (FKT51-M24.9)Encounter for general adult medical examination with abnormal findings (ICD-V70.0) (JEH96-L76.01)Dental caries (ICD-521.00) (ICD10- K02.9)Contraception management (ICD-V25.09) (KMN45-U52.9)Tobacco use (ICD-305.1) (XRW75-A97.0)Other chlamydial genitourinary infection (KZN53-C96.19)Insect bite (nonvenomous) of left forearm, initial encounter (ICD-913.4) (ICD10- S50.862A)Reduction defect of left arm (ICD-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.20) (PDP06-W04.92) (ICD- V22.2) (BUY21-S26.1)Anxiety (ICD-300.00) (UJS76-O10.9)Depression, major (ICD- 296.20) (FME50-P82.9)PAP SMEAR (ICD-V76.2) (CKN48-V20.4)HEADACHE (ICD-784.0) (HAP77-O71)Problem list reviewed during this update.Current Medications: SEROQUEL 300 MG ORAL TABLET (QUETIAPINE FUMARATE) One at bed time; Route: ORALTRAZODONE HCL 50 MG ORAL TABLET (TRAZODONE HCL) One at bed time; Route: ORALGABAPENTIN 600 MG ORAL TABLET (GABAPENTIN) One at bed time; Route: ORALZOLOFT 100 MG ORAL TABLET (SERTRALINE HCL) One a day; Route: ORALMedication list reviewed during this update.Allergy list reviewed during this update.No known allergies.Past Medical History:(reviewed - no changes required) MigrainesADHDDepression /Anxiety Dental Chart: Procedures:Type - CDT Code - Description B - (D0274) Bitewings, 4 radiographic images (Performed by Tayla Stephenson RDH) B - (D1110) Prophylaxis, adult (Performed by Tayla Stephenson RDH) B - (D0120) Periodic oral evaluation - established patient (Performed by Ingris Singh DMD) Chart Notes:lauryn (Dec 13 2019 11:24AM): [facility] with patient- No changes. No problems or concerns today. Adult prophy- handscaled, mauritanian- mint prophy paste, floss, 4 BW'sOH-Patient is not remembering to brush everyday and NOT flossing regularlyHeavy gen marginal biofilm and mod marginal/introproximal calculus on LA. Tissue is very red inflamed with bleeding on scaling peace #24 and #25.OHI- Advise to brush 2x a day and floss everyday. Went over brushing along the gum line everyday and flossing properly. Patient is cooperative. NV- 6 month recallTayla Stephenson RDH by lauryn (12/13/2019 11:24 AM): ; jhon (Dec 13 2019 12:29PM): [facility](-). CC: none. Reviewed Xrays. Exam: no caries detected. POOR OH but improved from before. OCS: WNL, IO/ EO completed, No significant hard findings upon clinical exam.Additional PPE requirements due to COVID-19 in the dental setting, N95, surgical mask, hair covering, gown and shieldPt was cooperative. OHI given Referral: N/A NV:recallRasTayla carrington RDH by jhon (12/13/2019 12:29 PM): Tooth Notes and Watches:- Tooth 11 Watch: MesialDiana Mayes by gama (11/22/2016 9:35 AM): - Tooth 24 Note: [place] anterior teeth at next filling apt. due to roughnessWatson Leisa VEE by parminder (11/23/2018 9:54 AM): - Tooth 9 Watch: Sahra Dorsey Jackie by samuel (08/13/2018 3:15 PM): Assessment & Plan Medications:SEROQUEL 300 MG ORAL TABLETTRAZODONE HCL 50 MG ORAL TABLETGABAPENTIN 600 MG ORAL TABLETZOLOFT 100 MG ORAL TABLETAllergies:No Known Allergies (updated 12/13/2019) Name Value Range Interpretation Code Description Data Alysa rce(s) Supporting Document(s) ID Date Data Source [id number] 11/24/2019 10:47:33 AM EDT [facility] Current Problems: Dental caries (ICD-521 .00) (YKD80-L88.9)Pain in unspecified knee (ICD-719.46) (XHR19-H07.569)Low back pain (ICD-724.2) (ICD10- M54.5)Unspecified lump in the right breast, upper outer quadrant (ICD10- N63.11)Dental caries (ICD-521.00) (LRV41-U67.9)PTSD (ICD-309.81) (ICD10- F43.10)Major depression, recurrent, moderate (ICD-296.32) (FIL43-B40.1)Bipolar disorder, current episode depressed, mild or moderate severity, unspecified (OPH54-W53.30)Attention deficit hyperactivity disorder, combined type (ICD- 314.01) (QMV99-L76.2)DENTAL CARIES EXTENDING INTO DENTINE (ICD-521.02) (URI77-O61.62)DEPRESSIVE DISORDER, MAJOR, RECURRENT EPISODE, SEVERE (ICD-296.33) (PDX47-R98.2)GENERALIZED ANXIETY DISORDER (ICD-300.02) (FMX06-E65.1)DENTAL CARIES EXTENDING INTO DENTINE (ICD-521.02) (RTF20-N84.62)Vitamin D deficiency, unspecified (AWI16-W08.9)Dental caries (ICD-521.00) (QRG62-S48.9)Encounter for screening for other metabolic disorders (FLR66-U57.228)Sinus bradycardia (ICD- 427.89) (NJK45-N88.1)Unspecified dyspareunia (DXR83-F10.10)DENTAL CARIES EXTENDING INTO DENTINE (ICD-521.02) (YRW36-M66.62)Dental caries (ICD-521.00) (GPH13-Z74.9)Encounter for general adult medical examination with abnormal find ings (ICD-V70.0) (QGG18-M38.01)Dental caries (ICD-521.00) (ICD10- K02.9)Contraception management (ICD-V25.09) (HBH02-X50.9)Tobacco use (ICD-305.1) (XBK21-L04.0)Other chlamydial genitourinary infection (IZJ94-W01.19)Insect bite (nonvenomous) of left forearm, initial encounter (ICD-913.4) (ICD10- S50.862A)Reduction defect of left arm (ICD-755.20) (TNJ69-F98.92) (ICD- V22.2) (RLX00-D19.1)Anxiety (ICD-300.00) (GOC60-I74.9)Depression, major (ICD- 296.20) (FDI07-I32.9)PAP SMEAR (ICD-V76.2) (BWA10-Z39.4)HEADACHE (ICD-784.0) (DFE67-N64)Problem list reviewed during this update.Current Medications: SEROQUE L 300 MG ORAL TABLET (QUETIAPINE FUMARATE) One at bed time; Route: ORALTRAZODONE HCL 50 MG ORAL TABLET (TRAZODONE HCL) One at bed time; Route: ORALGABAPENTIN 600 MG ORAL TABLET (GABAPENTIN) One at bed time; Route: ORALZOLOFT 100 MG ORAL TABLET (SERTRALINE HCL) One a day; Route: ORALMedication list reviewed during this update.Allergy list reviewed during this update.No known allergies. Dental Chart: Procedures:Type - CDT Code - Description B - (D2160) Amalgam, 3 surfaces, primary or permanent on Tooth # 20 on Tooth Surface MOD (Performed by Ingris Singh DMD) B - (D2150) Amalgam, 2 surfaces, primary or permanent on Tooth # 22 on Tooth Surface LD (Performed by Ingris Singh DMD) Chart Notes:jlam (Nov 24 2019 11:47AM): [facility] (-). per pt Took temp@ F. Additional PPE requirements due to COVID-19 in the dental setting, N95, surgical mask, hair covering, gown CC: none. Cetacaine spray used as topical. LL infiltration 2 carp Lidocaine HCL 2% with 1:100,000 epi. Operative: #20-MOD #22-DL Gluma and Amalgam. Excavated with High Speed, Slow Speed and Spoon. Occlusion checked. No complications. POI. Assisted by AG Pt was cooperative. NV: Ingris Lovett DMD by jhon (11/24/2019 11:47 AM): Tooth Notes and Watches:- Tooth 11 Watch: MesialDiana Mayes by gama (11/22/2016 9:35 AM): - Tooth 24 Note: [place]ian anterior teeth at next filling apt. due to roughnessWatson Leisa VEE by parminder (11/23/2018 9:54 AM): - Tooth 9 Watch: Sahra Dorsey Jackie by samuel (08/13/2018 3:15 PM): Assessment & Plan Medications:SEROQUEL 300 MG ORAL TABLETTRAZODONE HCL 50 MG ORAL TABLETGABAPENTIN 600 MG ORAL TABLETZOLOFT 100 MG ORAL TABLETAllergies:No Known Allergies (updated 11/24/2019) Name Value Range Interpretation Code Description Data Alysa rce(s) Supporting Document(s) ID Date Data Source [id number] 11/18/2019 02:04:40 PM EDT [facility] Initial Intake Information From: patient Room #: 13Infectious Disease / Travel ScreeningRecent travel for you or any close contacts? NoHave you had any close contact with anyone diagnosed with or under investigation for COVID-19 (coronavirus)? NoFever? NoRespiratory symptoms: cough, cold, congestion, shortness of breath, difficulty breathing? NoLoss of smell? NoLoss of taste? NoSmoking, Tobacco, Vaping or Smoke Exposure StatusSmoke Status: former smokerTobacco Use: NoDo you vape? NoPassive Smoke Exposure: NoMenstrual HistoryLast Menstrual Period (LMP): 11/02/2019Any possibility of ? NoComments: IUDHealthcare HistorySince your last office visit...Have you been admitted to the hospital? NoHave you been to an emergency room (ER) or urgent care clinic? NoHave you seen another healthcare provider? Yes - Karina Have you seen a dentist? Yes - NOCOIntake performed by: Ron Duran LPN, November 18, 2019 2:07 PMRate Your HealthIn general, would you say your health is? FairPain AssessmentAre you currently having any pain which... You would like your provider to address? No Affects your activity level? NoDepression Screening - PHQ-2Over the last two weeks, have you... Had little interest or pleasure in doing things? Not at all Been feeling down, depressed, or hopeless? Not at all PHQ-2 Score: 0Anxiety Screening - RENETTA-2Over the last two weeks, have you been... Feeling nervous, anxious, or on edge? Not at all Unable to stop or control worrying? Not at all RENETTA-2 Score: 0Food InsecurityWithin the past year...Did you worry whether your food would run out before you got money to buy more? NoWas there a time when the food you bought didn't last and you didn't have money to get more? NoPatient Learning & Communication Needs Preferred learning style: by experiencePossible barriers: nonePatient's Language used in visit: YesLanguage: kazakh Patient History Medical History:MigrainesADHDDepression /AnxietySurgical History:Mass removed from Breast 2013wisdom teethFamily History:Anxiety (Mother)Depression (Mother)Social/Personal History: Year Quit: 11/23/2018Alcohol Use Alcohol? Previously Year Quit: 11/23/2018 Family Hx of alcoholism? No Hospitalized related to alcohol use? NoDrugs, Tobacco and Vaping Passive Smoke Exposure: NoTobacco Smoking Status: former smokerMental Status Exam PHQ-9 1. Over the last 2 weeks, patient reports the following frequency of symptoms: a. Little interest or pleasure in doing things -Not at all b. Feeling down, depressed, or hopeless -Not at all c. Trouble falling asleep, staying asleep, or sleeping too much -Nearly every day d. Feeling tired or having little energy -Nearly every day e. Poor appetite or overeating -Nearly every day f. Feeling bad about yourself, feeling that you are a failure, or feeling that you have let yourself or your family down -More than half the days g. Trouble concentrating on things such as reading the newspaper or watching television -Nearly every day h. Moving or speaking so slowly that other people could have noticed. Or being so fidgety or restless that you have been moving around a lot more than usual -Nearly every day i. Thinking that you would be better off or that you want to hurt yourself in some way -Not at all2. If you checked off any problems, how difficult have these problems made it for you to do your work, take care of things at home, or get along with other people? -Very DifficultToday's PHQ-9 Results Score: 17 Severity: Moderately Severe Diagnosis Recommendation: No recommendation Functional Impairment: Very DifficultFall Risk AssessmentStay IndependentNo I have fallen in the last yearNo I use or have been advised to use a cane or walker to get around safelyNo Sometimes I feel unsteady when I am walking.No I am worried about falling.No I need to push with my hands to up from a chair.No I have some trouble stepping up onto a curb.No I often have to oliveira to the toilet.No I have lost some feeling in my feet.Yes I take medicine that sometimes makes me feel light-headed or more tired than usual.Yes I take medicine to help me sleep or improve my mood.Yes I often feel sad or depressed.Today's Stay Independent Results Score: 3 Assessment: Low RiskSix- Item Cognitive Impairment Test (6CIT) 1. What year is it? Correct2. What month is it? Correct3. Give the memory phrase: its raining like cats and dogs 4. About what time is it? Correct5. Count back from 20-1 Correct 6. Say months in reverse. Correct 7. Repeat the memory phrase. Correct Today's ResultScore: 0Interpretation: Normal - referral not necessary at presentCare Management Plan Care Team Assigned Risk Level: LowTransitions of CareInboundRate Your HealthIn general, would you say your health is? FairMeasurements & CalculationsHeight: 63 inches (5 ft. 3 in.) 160.02 cm Weight: 130 pounds 2 oz. 59.15 kg Body Mass Index (BMI): 23.13BMI Interpretation: Healthy WeightBody Surface Area (BSA): 1.61Vital SignsTemperature: 99.4F oral Pulse Rate: 80 beats/minuteRespiratory Rate: 16 respirations/minuteBlood Pressure: 99/64 right arm sitting automaticO2 Saturation: 96% room airVital Signs performed by: Ron Duran LPN, November 18, 2019 2:26 PMProvider Calculated and Reviewed all Clinical Protocols for patient today. Chief Complaintmedicare annual wellness visit RM 13 History of Present Illness (HPI)24 yo female Pt here today for a medicare annual wellness visit. Pt denispain at this time. Pt states she is taking all medications with no side effects. No new concerns.Sees Mental Health here for counselling and this seems to be going well.No thoughts of self harm.HPI performed by: Blayne Borrego MD, November 18, 2019 2:29 PMTransitions of Care InboundProblem ReviewProblem List was reviewed and/or updated during this visit.Medication Reconciliation & ReviewMedication List was reviewed and/or updated during this visit, including review of any [id number]-bfptkit medications, herbal therapies, and/or supplements.Allergy ReviewAllergy List was reviewed and/or updated during this visit.Physical ExamGeneral Appearance: well nourished, well hydrated, no acute distressRespiratory, Auscultation: clear to auscultation bilaterally; no rales, rhonchi, or wheezesRespiratory, Effort: no intercostal retractions or use of accessory musclesCardiovascular, Auscultation: S1, S2 audible; no murmur, rub, or gallop; RRRPeripheral Circulation: no clubbing, cyanosis, edema, or varicositiesGait & Station: normalSkin, Inspection: no rashes, lesions, or ulcerationsOrientation: oriented to time, place, and personMood & Affect: no depression, anxiety, or agitationJudgment & Insight: intactAssessment & Plan Problems:Assessed:Unspecified lump in the right breast, upper outer quadrant (XUE41-V18.11) Assessment: Instructions: US after lsat visit was unactionable. Monitor.Encounter for general adult medical examination with abnormal findings (ICD-V70.0) (QAH21-W65.01) Assessment: Instructions: Medicare Annual Wellness Visit with no new issues. Recheck as scheduled with mental health.Recheck here 12 months.Patient Instructions/Care Plan: Unspecified lump in the right breast- upper outer quadrant: US after lsat visit was unactionable. Monitor.Encounter for general adult medical examination with abnormal findings: Medicare Annual Wellness Visit with no new issues. Recheck as scheduled with mental health.Recheck here 12 months. Plan developed in collaboration with patient and/or familyMedications:SEROQUEL 300 MG ORAL TABLETTRAZODONE HCL 50 MG ORAL TABLETGABAPENTIN 600 MG ORAL TABLETZOLOFT 100 MG ORAL TABLETAllergies:No Known Allergies (updated 11/03/2019) Orders:Medicare Annual Wellness Visit - Established [CPT-G0439] Name Value Range Interpretation Code Description Data Alysa rce(s) Supporting Document(s) ID Date Data Source [id number] 11/03/2019 09:30:06 AM EDT [facility] Current Problems: Dental caries (ICD-521 .00) (DHG90-N12.9)Pain in unspecified knee (ICD-719.46) (QLN65-X49.569)Low back pain (ICD-724.2) (ICD10- M54.5)Unspecified lump in the right breast, upper outer quadrant (ICD10- N63.11)Dental caries (ICD-521.00) (XXE92-P26.9)PTSD (ICD-309.81) (ICD10- F43.10)Major depression, recurrent, moderate (ICD-296.32) (RED38-U09.1)Bipolar disorder, current episode depressed, mild or moderate severity, unspecified (HUE41-W37.30)Attention deficit hyperactivity disorder, combined type (ICD- 314.01) (XQD39-W16.2)DENTAL CARIES EXTENDING INTO DENTINE (ICD-521.02) (RWU66-D21.62)DEPRESSIVE DISORDER, MAJOR, RECURRENT EPISODE, SEVERE (ICD-296.33) (VLA61-O12.2)GENERALIZED ANXIETY DISORDER (ICD-300.02) (IVJ62-P10.1)DENTAL CARIES EXTENDING INTO DENTINE (ICD-521.02) (DRY00-Q85.62)Vitamin D deficiency, unspecified (LSN75-Z72.9)Dental caries (ICD-521.00) (NIU65-V64.9)Encounter for screening for other metabolic disorders (IMW44-K92.228)Sinus bradycardia (ICD- 427.89) (XGH32-U57.1)Unspecified dyspareunia (ROG81-N95.10)DENTAL CARIES EXTENDING INTO DENTINE (ICD-521.02) (KCM62-U99.62)Dental caries (ICD-521.00) (CVB06-Z61.9)Encounter for general adult medical examination with abnormal find ings (ICD-V70.0) (ABZ04-P07.01)Dental caries (ICD-521.00) (ICD10- K02.9)Contraception management (ICD-V25.09) (ROC60-K91.9)Tobacco use (ICD-305.1) (UHA85-P77.0)Other chlamydial genitourinary infection (LWL72-Z78.19)Insect bite (nonvenomous) of left forearm, initial encounter (ICD-913.4) (ICD10- S50.862A)Reduction defect of left arm (ICD-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.20) (JBA80-H14.92) (ICD- V22.2) (PDN68-X79.1)Anxiety (ICD-300.00) (IFD92-F22.9)Depression, major (ICD- 296.20) (WSX05-F25.9)PAP SMEAR (ICD-V76.2) (NST95-Q96.4)HEADACHE (ICD-784.0) (ZQO83-C96)Problem list reviewed during this update.Current Medications: SEROQUE L 300 MG ORAL TABLET (QUETIAPINE FUMARATE) One at bed time; Route: ORALTRAZODONE HCL 50 MG ORAL TABLET (TRAZODONE HCL) One at bed time; Route: ORALGABAPENTIN 600 MG ORAL TABLET (GABAPENTIN) One at bed time; Route: ORALSERTRALINE HCL 50 MG ORAL TABLET (SERTRALINE HCL) take one and half tab po daily; Route: ORALMedication list reviewed during this update.Allergy list reviewed during this update.No known allergies. Dental Chart: Procedures:Type - CDT Code - Description B - (D2330) Resin, one surface, anterior on Tooth # 11 on Tooth Surface D (Performed by Ingris Singh DMD) B - (D2140) Amalgam-one surface, primary or permanent on Tooth # 15 on Tooth Surface B (Performed by Ingris Singh DMD) Chart Notes:jhon (Nov 03 2019 11:48AM): [facility] (-)Per Pt. . Took temp@ F. Additional PPE requirements due to COVID-19 in the dental setting, N95, surgical mask, hair covering, gown CC: none. Cetacaine spray used as topical. UA and UL infiltration, 1/4 carp Lidocaine HCL 2% with 1:100,000 epi. Operative:#11-D, Etch, Futurabond, Light cured, A-3 , Grandioso, light cured, #15_B Gluma and Amalgam. Excavated with High Speed, Slow Speed and Spoon. Occlusion checked and polished. No complications. POI. Assisted by PD Pt was cooperative. NV: Ingris Vincent DMD by jhon (11/03/2019 11:48 AM): Tooth Notes and Watches:- Tooth 11 Watch: LoreialDiana Mayes by gama (11/22/2016 9:35 AM): - Tooth 24 Note: Estonian anterior teeth at next filling apt. due to roughnessWatson Leisa VEE by parminder (11/23/2018 9:54 AM): - Tooth 9 Watch: Sahra Dorsey Jackie by samuel (08/13/2018 3:15 PM): Assessment & Plan Medications:SEROQUEL 300 MG ORAL TABLETTRAZODONE HCL 50 MG ORAL TABLETGABAPENTIN 600 MG ORAL TABLETSERTRALINE HCL 50 MG ORAL TABLETAllergies:No Known Allergies (updated 11/03/2019) Name Value Range Interpretation Code Description Data Alysa rce(s) Supporting Document(s) ID Date Data Source [id number] 11/02/2019 09:47:13 AM EDT [facility] Current Problems: Dental caries (ICD-521 .00) (RSM86-C54.9)Pain in unspecified knee (ICD-719.46) (CWN97-W09.569)Low back pain (ICD-724.2) (ICD10- M54.5)Unspecified lump in the right breast, upper outer quadrant (ICD10- N63.11)Dental caries (ICD-521.00) (JZQ59-Q03.9)PTSD (ICD-309.81) (ICD10- F43.10)Major depression, recurrent, moderate (ICD-296.32) (CRC88-N75.1)Bipolar disorder, current episode depressed, mild or moderate severity, unspecified (JTH47-N42.30)Attention deficit hyperactivity disorder, combined type (ICD- 314.01) (RUS83-J56.2)DENTAL CARIES EXTENDING INTO DENTINE (ICD-521.02) (RCI31-L25.62)DEPRESSIVE DISORDER, MAJOR, RECURRENT EPISODE, SEVERE (ICD-296.33) (OLS03-I33.2)GENERALIZED ANXIETY DISORDER (ICD-300.02) (QBX41-T45.1)DENTAL CARIES EXTENDING INTO DENTINE (ICD-521.02) (NCC71-O12.62)Vitamin D deficiency, unspecified (UAT39-S18.9)Dental caries (ICD-521.00) (TZT79-N51.9)Encounter for screening for other metabolic disorders (EBJ12-W64.228)Sinus bradycardia (ICD- 427.89) (UHR96-C50.1)Unspecified dyspareunia (KRY22-P36.10)DENTAL CARIES EXTENDING INTO DENTINE (ICD-521.02) (AJT17-E86.62)Dental caries (ICD-521.00) (OSB77-W00.9)Encounter for general adult medical examination with abnormal find ings (ICD-V70.0) (FSI60-K19.01)Dental caries (ICD-521.00) (ICD10- K02.9)Contraception management (ICD-V25.09) (WKY12-J29.9)Tobacco use (ICD-305.1) (OZZ23-C48.0)Other chlamydial genitourinary infection (KOI33-I75.19)Insect bite (nonvenomous) of left forearm, initial encounter (ICD-913.4) (ICD10- S50.862A)Reduction defect of left arm (ICD-755.20) (EOO19-G95.92) (ICD- V22.2) (TQZ29-E75.1)Anxiety (ICD-300.00) (OGW31-A38.9)Depression, major (ICD- 296.20) (IOC68-C94.9)PAP SMEAR (ICD-V76.2) (CRF24-E51.4)HEADACHE (ICD-784.0) (AYA56-J27)Problem list reviewed during this update.Current Medications: SEROQUE L 300 MG ORAL TABLET (QUETIAPINE FUMARATE) One at bed time; Route: ORALTRAZODONE HCL 50 MG ORAL TABLET (TRAZODONE HCL) One at bed time; Route: ORALGABAPENTIN 600 MG ORAL TABLET (GABAPENTIN) One at bed time; Route: ORALSERTRALINE HCL 50 MG ORAL TABLET (SERTRALINE HCL) take one and half tab po daily; Route: ORALMedication list reviewed during this update.Allergy list reviewed during this update.No known allergies. Dental Chart: Procedures:Type - CDT Code - Description B - (D2335) Resin, 4 or more surfaces or involving incisal angle (anterior) on Tooth # 7 on Tooth Surface MFLI (Performed by Ingris Singh DMD) B - (D2331) Resin, 2 surfaces, anterior on Tooth # 9 on Tooth Surface FD (Performed by Ingris Singh DMD) Chart Notes:jhon (Nov 02 2019 11:22AM): [facility] (-)Per Pt. . Took temp@ F. Additional PPE requirements due to COVID-19 in the dental setting, N95, surgical mask, hair covering, gown CC: none. Cetacaine spray used as topical.UA infiltration, 1 carp Lidocaine HCL 2% with 1:100,000 epi. Operative: #7-MFLI(Limelite, light cured), 9-DL Etch, Futurabond, Light cured, A-3 , Grandioso, light cured. Excavated with High Speed, Slow Speed and Spoon. Occlusion checked and polished. No complications. POI. Assisted by PDPt was cooperative. NV: RestoIf #7 break again crown is recommeded (with possible RCT)Ingris Singh DMD by jhon (11/02/2019 11:22 AM): Tooth Notes and Watches:- Tooth 11 Watch: Diana Cruz by gama (11/22/2016 9:35 AM): - Tooth 24 Note: [place] anterior teeth at next filling apt. due to roughnessWatson Leisa VEE by parminder (11/23/2018 9:54 AM) : - Tooth 9 Watch: Sahra Dorsey Jackie by samuel (08/13/2018 3:15 PM): Assessment & Plan Problems:Added: Dental caries (ICD-521.00) (ICD10- K02.9)Medications:SEROQUEL 300 MG ORAL TABLETTRAZODONE HCL 50 MG ORAL TABLETGABAPENTIN 600 MG ORAL TABLETSERTRALINE HCL 50 MG ORAL TABLETAllergies:No Known Allergies (updated 11/02/2019) Name Value Range Interpretation Code Description Data Alysa rce(s) Supporting Document(s) ID Date Data Source [id number] 06/24/2019 10:02:47 AM EDT [facility] In-House Blood TestsDate/Time Colle cted: June 24, 2019 10:03 AMTest Result Reference Range Normal ValueComments: blood draw done in office done in the right ac tolerated well Girma Renteria APOORVA, June 24, 2019 10:03 AMAssessment & Plan Orders:25933-Lni Vst-Est Level I [CPT-86104] 49737 - Venipuncture [CPT-32364] Name Value Range Interpretation Code Description Data Alysa rce(s) Supporting Document(s) ID Date Data Source [id number] 06/24/2019 10:00:00 AM EDT [facility] Name Value Range Interpretation Code Description Data Alysa rce(s) Supporting Document(s) VIT D25 TOT 23.0 ng/mL 30.0-100.[address] [facility] BG FASTING 90 mg/dL 70-100 [facility] ID Date Data Source [id number] 06/09/2019 03:23:04 PM EST [facility] Current Problems: Pain in unspecified kn ee (ICD-719.46) (WNF66-N48.569)Low back pain (ICD-724.2) (BQP88-O07.5)Unspecified lump in the right breast, upper outer quadrant (YMK84-T07.11)Dental caries (ICD-521.00) (VNF81-H75.9)PTSD (ICD-309.81) (PKI51-B73.10)Major depression, recurrent, moderate (ICD-296.32) (ICD10- F33.1)Bipolar disorder, current episode depressed, mild or moderate severity, unspecified (AGF81-U57.30)Attention deficit hyperactivity disorder, combined type (ICD-314.01) (KAL92-K70.2)DENTAL CARIES EXTENDING INTO DENTINE (ICD-521.02) (KGH68-A78.62)DEPRESSIVE DISORDER, MAJOR, RECURRENT EPISODE, SEVERE (ICD-296.33) (QEE01-Z62.2)GENERALIZED ANXIETY DISORDER (ICD-300.02) (AQN89-R20.1)DENTAL CARIES EXTENDING INTO DENTINE (ICD-521.02) (TGO15-Y59.62)Vitamin D deficiency, unspecified (NCC91-P30.9)Dental caries (ICD-521.00) (CGE77-Y42.9)Encounter for screening for other metabolic disorders (VHD87-N34.228)Sinus bradycardia (ICD- 427.89) (FRI34-F12.1)Unspecified dyspareunia (GBQ15-V41.10)DENTAL CARIES EXTENDING INTO DENTINE (ICD-521.02) (PQL58-P90.62)Dental caries (ICD-521.00) (NOX58-L66.9)Encounter for general adult medical examination with abnormal findings (ICD-V70.0) (TYR28-A88.01)Dental caries (ICD-521.00) (ICD10- K02.9)Contraception management (ICD-V25.09) (DPG62-X66.9)Tobacco use (ICD-305.1) (ZVB92-L98.0)Other chlamydial genitourinary infection (ZRI59-W66.19)Insect bite (nonvenomous) of left forearm, initial encounter (ICD-913.4) (ICD10- S50.862A)Reduction defect of left arm (ICD-755.20) (AEQ28-G71.92) (ICD- V22.2) (THM94-W11.1)Anxiety (ICD-300.00) (QPS89-M03.9)Depression, major (ICD- 296.20) (FEE74-Z90.9)PAP SMEAR (ICD-V76.2) (RKC76-A19.4)HEADACHE (ICD-784.0) (JFG24-L34)Current Medications: ABILIFY 15 MG ORAL TABLET (ARIPIPRAZOLE) One tablet at bed time; Route: ORALTRAZODONE HCL 50 MG ORAL TABLET (TRAZODONE HCL) One at bed time; Route: ORALGABAPENTIN 600 MG ORAL TABLET (GABAPENTIN) One at bed time; Route: ORALSERTRALINE HCL 50 MG ORAL TABLET (SERTRALINE HCL) take one and half tab po daily; Route: ORAL Dental Chart: Procedures:Type - CDT Code - Description B - (D2160) Amalgam, 3 surfaces, primary or permanent on Tooth # 13 on Tooth Surface MOD (Performed by Ingris Singh DMD) B - (D2161) Amalgam, 4 or more surfaces, primary or permanent on Tooth # 14 on Tooth Surface MODL (Performed by Ingris Singh DMD) Chart Notes:jhon (Jun 10 2019 10:59AM): [facility] (-)per pt. CC: none. Cetacaine spray used as topical. UL infiltration 1 carp Lidocaine HCL 2% with 1:100,000 epi. Operative: # 13- MOD, #14-MODLGluma and Amalgam. Excavated with High Speed, Slow Speed and Spoon. Occlusion checked and polished. No complications. POI. Assisted by:AM. Pt was cooperative. NV: Scientologist.Ingris Singh DMD by jhon (06/10/2019 10:59 AM): Tooth Notes and Watches:- Tooth 11 Watch: Diana Cruz by gama (11/22/2016 9:35 AM): - Tooth 24 Note: [place] anterior teeth at next filling apt. due to roughnessWatson Leisa VEE by parminder (11/23/2018 9:54 AM): - Tooth 9 Watch: Sahra Dorsey Jackie by samuel (08/13/2018 3:15 PM): Assessment & Plan Medications:ABILIFY 15 MG ORAL TABLETTRAZODONE HCL 50 MG ORAL TABLETGABAPENTIN 600 MG ORAL TABLETSERTRALINE HCL 50 MG ORAL TABLETAllergies:No Known Allergies (updated 05/27/2019) Name Value Range Interpretation Code Description Data Alysa rce(s) Supporting Document(s) ID Date Data Source [id number] 06/01/2019 03:29:38 PM [facility] Measurements & CalculationsHeight: 63 inches 160.02 cm Weight: 118 pounds 53.64 kg Body Mass Index (BMI): 20.98BMI Interpretation: Healthy WeightBody Surface Area (BSA): 1.55Weight Management Education Done (Nutrition/Physical Activity)Vital SignsTemperature: 98.9F oral Pulse Rate: 84 beats/minuteRespiratory Rate: 20 respirations/minuteBlood Pressure: 119/76 right arm sitting automaticO2 Saturation: 98% room airVital Signs performed by: Tristin Gomez MA, June 01, 2019 3:33 PMInitial Intake Information from: ptRoom #: 13Smoking, Tobacco, Vaping or Smoke Exposure StatusSmoke Status: former smokerDo you vape? NoPassive Smoke Exposure: NoMenstrual HistoryLast Menstrual Period (LMP): 05/20/2019Any possibility of ? NoComments: IUDHealthcare HistorySince your last office visit...Have you been admitted to the hospital? NoHave you been to an emergency room (ER) or urgent care clinic? Yes - [facility] ([facility]) or urgent care date reported today: 05/27/2019Have you seen another healthcare provider? NoHave you seen a dentist? Yes - NOCOIntake performed by: Tristin Gomez MA, June 01, 2019 3:34 PMRate Your HealthIn general, would you say your health is? FairPain AssessmentAre you currently having any pain which... You would like your provider to address? Yes Affects your activity level? YesDepression Screening - PHQ-2Over the last two weeks, have you... Had little interest or pleasure in doing things? Nearly every day Been feeling down, depressed, or hopeless? Nearly every day PHQ-2 Score: 6Anxiety Screening - RENETTA-2Over the last two weeks, have you been... Feeling nervous, anxious, or on edge? Nearly every day Unable to stop or control worrying? Nearly every day RENETTA-2 Score: 6Infectious Disease / Travel ScreeningRecent travel for you, your family, and/or any sexual partners? NoGeneralized Anxiety Disorder 7-Item Screening (RENETTA-7)Answer Guide:0 = Not at all1 = Several days2 = Over half the days3 = Nearly every dayOver the last 2 weeks, how often have you been bothered by the following problems?Feeling nervous, anxious, or on edge: 3Not being able to stop or control worryinWorrying too much about different things: 3Trouble relaxinBeing so restless that it's hard to sit still: 3Becoming easily annoyed or irritable: 3Feeling afraid as if something awful might happen: 3Answer Guide:0 = Not difficult at all1 = Somewhat difficult2 = Very difficult3 = Extremely difficultHow difficult have these made it for you to do your work, take care of things at home, or get along with other people? 3GAD-7 Screening Results RENETTA-2 Score: 6GAD-7 Score: 21Functional Impairment: Extremely difficultRecommendation: Severe anxietyPHQ-9 1. Over the last 2 weeks, patient reports the following frequency of symptoms: a. Little interest or pleasure in doing things -Nearly every day b. Feeling down, depressed, or hopeless -Nearly every day c. Trouble falling asleep, staying asleep, or sleeping too much -Nearly every day d. Feeling tired or having little ener gy -Nearly every day e. Poor appetite or overeating -Nearly every day f. Feeling bad about yourself, feeling that you are a failure, or feeling that you have let yourself or your family down -More than half the days g. Trouble concentrating on things such as reading the newspaper or watching television -Nearly every day h. Moving or speaking so slowly that other people could have noticed. Or being so fidgety or restless that you have been moving around a lot more than usual -Nearly every day i. Thinking that you would be better off or that you want to hurt yourself in some way -Not at all2. If you checked off any problems, how difficult have these problems made it for you to do your work, take care of things at home, or get along with other people? - Extremely DifficultToday's PHQ-9 Results Score: 23 Severity: Severe Diagnosis Recommendation: Major Depression Functional Impairment: Extremely DifficultPain AssessmentLocation: backDuration: chronicCharacter/Quality: throbbingIs the pain radiating? NoOther DescriptorsAggravating Factors: rainy daysScreening, Brief Intervention, & Referral to Treatment (SBIRT)Pre-Screening Questions How many times have you have 4 or more drinks in a day? 0How many times have you used an illegal drug or used a prescription medication for a non- medical reason? 0Performed by: Tristin Gomez MA, June 01, 2019 3:37 PMPatient History Medical History:MigrainesADHDDepression /AnxietySurgical History:Mass removed from Breast 2013wisdom teethFamily History:Anxiety (Mother)Depression (Mother)Social/Personal History: Chief ComplaintanxietyHistory of Present Illness (HPI)IDaniela MA, am scribing for and in the presence of, Ela Little states her back and her knees hurt when the weather is bad, like a throbbing painpt states she has a lump on her right breast. she said she has had them in the past and they were just fatty tissue. Going to order Mammogram today. states that she is still following with counselor and they are helping a bunch. some days she feels as if the medicaiton is helping some days and some days it doesn't help. states that she is more calm since beginning these medications. Does see Dr Perez and Karina both within the next week. Have completed manipulation on the L-Spine in office today with Dr David DO. Transitions of Care InboundProblem ReviewProblem List was reviewed and/or updated during this visit.Medication Reconciliation & ReviewMedication List was reviewed and/or updated during this visit, including review of any gups-ebx-oaralpc medications, herbal therapies, and/or supplements.Allergy ReviewAllergy List was reviewed and/or updated during this visit.Adult Preventive CareLabs/Meds/Other Counseling-Nutrition and Physical Activity:BMI Interpretation: Healthy Weight (06/01/2019) Counseling: Done (06/01/2019) Physical Activity: Done (06/01/2019)Review of Systems General: Denies loss of appetite, chills, dizziness, fatigue, fever, continued fever, headache, feeling ill, sweats, night sweats, sleep disturbances, weight loss. Breast: Complains of breast lump. Musculoskeletal: Complains of back pain, joint pain. Neurologic: Denies muscle impairment, weakness, numbness/tingling, seizures, slurred speech, feeling faint, tremors, vertigo, paralysis on one side, paralysis on both sides. Psychiatric: Complains of depression, anxiety. Physical ExamGeneral Appearance: well nourished, well hydrated, no acute distressEyes, External: conjunctivae and lids normal, EOMIExternal Ears: normal, no lesions or deformitiesHearing: grossly intactOtoscopy: canals clear, tympanic membranes intact, no fluid, light reflex intact bilaterallyExternal Nose: normal, no lesions or deformitiesNasal: mucosa, septum, and turbinates normal, nares patentLips/Teeth/Gums: normal dentition, no gingival inflammation, no labial lesionsPharynx: tongue normal, posterior pharynx without erythema or exudate, no thrush/aphthous ulcerBreasts, Inspection: small mobile lump RUQ rt breastRespiratory, Auscultation: clear to auscultation bilaterally; no rales, rhonchi, or wheezesRespiratory, Effort: no intercostal retractions or use of accessory musclesCardiovascular, Auscultation: S1, S2 audible; no murmur, rub, or gallop; RRRPeripheral Circulation: no clubbing, cyanosis, edema, or vari cositiesAbdomen: soft, non-tender, no masses, bowel sounds normalGait & Station: normalBack: spasm L4 on rightLower Extremity, Right: crepitus both kneesSkin, Inspection: no rashes, lesions, or ulcerationsOrientation: oriented to time, place, and personMood & Affect: Psychiatric exam: Appearance: Neat, well groomed, tiredAffect: WorriedMood: AnxiousThought content: No SI/ HI/ delusionThought processes: Organized,Judgement: FairInsight: FairJudgment & Insight: intactCare Management Plan Transitions of CareInboundRate Your HealthIn general, would you say your health is? FairAssessment & Plan Problems:Added: Pain in unspecified knee (ICD-719.46) (AFC21-H78.569) Assessment: Advil as needed, eat more jello Instructions: Advil as needed, eat more jelloLow back pain (ICD-724.2) (APM05-N86.5) Assessment: FPR done with resolution of pain Instructions: FPR done with resolution of painUnspecified lump in the right breast, upper outer quadrant (QMO37-R01.11) Assessment: order US rt breast Instructions: order US rt breastPatient Instructions/Care Plan: Pain in unspecified knee: Advil as needed, eat more jelloLow back pain: FPR done with resolution of painUnspecified lump in the right breast- upper outer quadrant: order US rt breast Plan developed in collaboration with patient and/or familyMedications:ABILIFY 15 MG ORAL TABLETTRAZODONE HCL 50 MG ORAL TABLETGABA PENTIN 600 MG ORAL TABLETSERTRALINE HCL 50 MG ORAL TABLETMedication Changes:Removed:VITAMIN D (ERGOCALCIFEROL) 21041 UNIT ORAL CAPSULE-1 po q wk for 12 wks Qty: 12[Capsule] Refills: 0, VITAMIN D 1000 UNIT ORAL TABLET-1 po daily once 50,0000 unit tabs completed in 12 wks Qty: 90[Tablet] Refills: 1, CENTRUM ADULTS ORAL TABLETAllergies:No Known Allergies (updated 05/27/2019) Orders:Ultrasound, breast, unilateral; complete [CPT-[id number]] ] Assess ment & Plan Orders:Adult - Ofc Vst, EST, Level IV [CPT-[id number]] Assess ment & Plan Orders:Adult - Ofc Vst, EST, Level IV [CPT-[id number]] Name Value Range Interpretation Code Description Data Alysa rce(s) Supporting Document(s) ID Date Data Source [id number] 05/27/2019 12:29:31 PM EST [facility] Patient History Medical History:Migraine sADHDDepression /AnxietyFamily History:Anxiety (Mother)Depression (Mother)Social/Personal History: Smoking Status: former smokerCurrent Problems: Dental caries (ICD-521.00) (ICD10- K02.9)PTSD (ICD-309.81) (OMV30-T66.10)Major depression, recurrent, moderate (ICD-296.32) (VRY34-S39.1)Bipolar disorder, current episode depressed, mild or moderate severity, unspecified (TEM41-Z77.30)Attention deficit hyperactivity disorder, combined type (ICD-314.01) (EKK43-W59.2)DENTAL CARIES EXTENDING INTO DENTINE (ICD-521.02) (GYS31-K96.62)DEPRESSIVE DISORDER, MAJOR, RECURRENT EP ISODE, SEVERE (ICD-296.33) (CGG31-R15.2)GENERALIZED ANXIETY DISORDER (ICD- 300.02) (LYJ00-W46.1)DENTAL CARIES EXTENDING INTO DENTINE (ICD-521.02) (ICD10- K02.62)Vitamin D deficiency, unspecified (DYD85-B30.9)Dental caries (ICD-521.00) (YCG30-G16.9)Encounter for screening for other metabolic disorders (ICD10- Z13.228)Sinus bradycardia (ICD-427.89) (JBN75-Y52.1)Unspecified dyspareunia (CUT13-V74.10)DENTAL CARIES EXTENDING INTO DENTINE (ICD-521.02) (ICD10- K02.62)Dental caries (ICD-521.00) (BDO80-J12.9)Encounter for general adult medical examination with abnormal findings (ICD-V70.0) (EOZ09-T00.01)Dental c anel (ICD-521.00) (IPX50-G02.9)Contraception management (ICD-V25.09) (ICD10- Z30.9)Tobacco use (ICD-305.1) (DGO55-I37.0)Other chlamydial genitourinary infection (DYM05-Z88.19)Insect bite (nonvenomous) of left forearm, initial encounter (ICD-913.4) (GLV61-H08.862A)Reduction defect of left arm (ICD-755.20) (EFJ98-N53.92) (ICD-V22.2) (EHC79-R17.1)Anxiety (ICD-300.00) (ICD10- F41.9)Depression, major (ICD-296.20) (RPO30-C46.9)PAP SMEAR (ICD-V76.2) (ICD10- Z12.4)HEADACHE (ICD-784.0) (RCG92-M72)Problem list reviewed during this update.Current Medications: ABILIFY 15 MG ORAL TABLET (ARIPIPRAZOLE) One tablet at bed time; Route: ORALTRAZODONE HCL 50 MG ORAL TABLET (TRAZODONE HCL) One at bed time; Route: ORALGABAPENTIN 600 MG ORAL TABLET (GABAPENTIN) One at bed time; Route: ORALVITAMIN D 1000 UNIT ORAL TABLET (CHOLECALCIFEROL) 1 po daily once 50,0000 unit tabs completed in 12 wks; Route: ORALVITAMIN D (ERGOCALCIFEROL) 74764 UNIT ORAL CAPSULE (ERGOCALCIFEROL) 1 po q wk for 12 wks; Route: ORALCENTRU M ADULTS ORAL TABLET (MULTIPLE VITAMINS-MINERALS) ; Route: ORALSERTRALINE HCL 50 MG ORAL TABLET (SERTRALINE HCL) take one and half tab po daily; Route: ORALMedication list reviewed during this update.Allergy list reviewed during this update.No known allergies.Past Medical History:(reviewed - no changes required) MigrainesADHDDepression /Anxiety Dental Chart: Procedures:Type - CDT Code - Description B - (D0120) Periodic oral evaluation - established patient (Performed by Ingris Singh DMD) B - (D0274) Bitewings, 4 radiographic images (Performed by Tayla Stephenson RDH) B - (D1110) Prophylaxis, adult (Performed by Tayla Stephenson RDH) Treatments:Type - CDT Code - Description T - (D2331) Resin, 2 surfaces, anterior on Tooth # 9 on Tooth Surface FD (Performed by Tayla Stephenson RDH) T - (D2160) Amalgam, 3 surfaces, primary or permanent on Tooth # 13 on Tooth Surface MOD (Performed by Tayla Stephenson RDH) T - (D2160) Amalgam, 3 surfaces, primary or permanent on Tooth # 14 on Tooth Surface MDO (Performed by Tayla Stephenson RDH) T - (D2330) Resin, one surface, anterior on Tooth # 11 on Tooth Surface D (Performed by Tayla Stephenson RDH) T - (D2140) Amalgam-one surface, primary or permanent on Tooth # 15 on Tooth Surface B (Performed by Tayla Stephenson RDH) Existing:Type - CDT Code - Description[E] Decay On #11 Surface D, #13 Surface MOD, #14 Surface MOD, #15 Surface B, #9 Surface DF Chart Notes:sraso (May 27 2019 3:35PM): [facility] with patient- No changes. No problems or concerns today. Adult prophy- handscaled, mauritanian- mint prophy paste, floss, 4 BW'sOH-Patient does not brush everyday and NOT flossing regularlyMod gen marginal biofilm and marginal/introproximal calculus on LA. Marginal tissue is inflamed with bleeding on scaling. OHI- Advise to brush 2x a day and floss everyday. Went over brushing along the gum line and flossing properly. Patient is cooperative. NV- 6 month recall/fillingTayla Hardwick RDH by sraso (05/27/2019 3:35 PM): ; jlam (May 27 2019 2:09PM): [facility](-). CC: none. Reviewed Xrays. Exam: caries detected. OCS: WNL IO/ EO completed, No significant hard findings upon clinical exam Pt was cooperative.OHI givenReferral: N/ANV:fillingTayla Stephenson RDH by jhon (05/27/2019 2:09 PM): Tooth Notes and Watches:- Tooth 11 Watch: MesialGerber Diana by gama (11/22/2016 9:35 AM): - Tooth 24 Note: [place] anterior teeth at next filling apt. due to roughnessWatson Leisa VEE by parminder (11/23/2018 9:54 AM): - Tooth 9 Watch: Sahra Dorsey Jackie by samuel (08/13/2018 3:15 PM): Assessment & Plan Medications:ABILIFY 15 MG ORAL TABLETTRAZODONE HCL 50 MG ORAL TABLETGABAPENTIN 600 MG ORAL TABLETVITAMIN D 1000 UNIT ORAL TABLETVITAMIN D (ERGOCALCIFEROL) 28771 UNIT ORAL CAPSULECENTRUM ADULTS ORAL TABLETSERTRALINE HCL 50 MG ORAL TABLETAllergies:No Known Allergies (updated 05/27/2019) Name Value Range Interpretation Code Description Data Alysa rce(s) Supporting Document(s) ID Date Data Source [id number] 04/27/2019 03:22:05 PM [facility] Current Problems: Dental caries (ICD-521 .00) (KQH91-C25.9)PTSD (ICD-309.81) (NIK71-Z01.10)Major depression, recurrent, moderate (ICD-296.32) (ICD10- F33.1)Bipolar disorder, current episode depressed, mild or moderate severity, unspecified (WKP11-X05.30)Attention deficit hyperactivity disorder, combined type (ICD-314.01) (CZW81-U80.2)DENTAL CARIES EXTENDING INTO DENTINE (ICD-521.02) (XIH05-Z25.62)DEPRESSIVE DISORDER, MAJOR, RECURRENT EPISODE, SEVERE (ICD- 296.33) (QAI49-R45.2)GENERALIZED ANXIETY DISORDER (ICD-300.02) (ICD10- F41.1)DENTAL CARIES EXTENDING INTO DENTINE (ICD-521.02) (CFG15-N50.62)Vitamin D deficiency, unspecified (HWT10-V99.9)Dental caries (ICD-521.00) (ICD10- K02.9)Encounter for screening for other metabolic disorders (XGR83-M41.228)Sinus bradycardia (ICD-427.89) (GOD55-B23.1)Unspecified dyspareunia (ICD10- N94.10)DENTAL CARIES EXTENDING INTO DENTINE (ICD-521.02) (LYH07-J59.62)Dental caries (ICD-521.00) (GTS69-Q58.9)Encounter for general adult medical examination with abnormal findings (ICD-V70.0) (NQB49-C06.01)Dental caries (ICD-521.00) (SMP33-Y37.9)Contraception management (ICD-V25.09) (MLK06-L34.9)Tobacco use (ICD-305.1) (WBW47-K69.0)Other chlamydial genitourinary infection (ICD10- A56.19)Insect bite (nonvenomous) of left forearm, initial encounter (ICD-913.4) (UZK36-A36.862A)Reduction defect of left arm (ICD-755.20) (ICD10- Q71.92) (ICD-V22.2) (FHG56-A80.1)Anxiety (ICD-300.00) (ICD10- F41.9)Depression, major (ICD-296.20) (GSR33-E38.9)PAP SMEAR (ICD-V76.2) (ICD10- Z12.4)HEADACHE (ICD-784.0) (CFV48-Q76)Problem list reviewed during this update.Current Medications: ABILIFY 10 MG ORAL TABLET (ARIPIPRAZOLE) One at hs; Route: ORALTRAZODONE HCL 50 MG ORAL TABLET (TRAZODONE HCL) One at bed time; Route: ORALGABAPENTIN 600 MG ORAL TABLET (GABAPENTIN) One at bed time; Route: ORALVITAMIN D 1000 UNIT ORAL TABLET (CHOLECALCIFEROL) 1 po daily once 50,0000 unit tabs completed in 12 wks; Route: ORALVITAMIN D (ERGOCALCIFEROL) 23545 UNIT ORAL CAPSULE (ERGOCALCIFEROL) 1 po q wk for 12 wks; Route: ORALCENTRUM ADULTS ORAL TABLET (MULTIPLE VITAMINS-MINERALS) ; Route: ORALSERTRALINE HCL 50 MG ORAL TABLET (SERTRALINE HCL) take one and half tab po daily; Route: ORALMedication list reviewed during this update.Allergy list reviewed during this update.No known allergies. Dental Chart: Procedures:Type - CDT Code - Description B - (D2160) Amalgam, 3 surfaces, primary or permanent on Tooth # 4 on Tooth Surface MOD (Performed by Ingris Singh DMD) B - (D2331) Resin, 2 surfaces, anterior on Tooth # 7 on Tooth Surface MF (Performed by Ingris Singh DMD) Chart Notes:jhon (Apr 27 2019 4:34PM): [facility] (-)Per Pt. . CC: none. Cetacaine spray used as topical. UR and UA infiltration, 1/2 carp Lidocaine HCL 2% with 1:100,000 epi. Operative: 7-MFL, etch Futurabond Light cured, A-3 [place], Light cured, Polished 6-F, # 4-MOD, [place] and Amalgam. Excavated with High Speed, Slow Speed and Spoon. Occlusion checked and polished. No complications. POI. Assisted by PD Pt was cooperative. NV: Ingris Vincent DMD by jhon (04/27/2019 4:34 PM): Tooth Notes and Watches:- Tooth 11 Watch: LoreialDiana Mayes by gama (11/22/2016 9:35 AM): - Tooth 24 Note: Eston[place] anterior teeth at next filling apt. due to roughnessWatson Leisa VEE by parminder (11/23/2018 9:54 AM): - Tooth 9 Watch: Sahra Dorsey Jackie by samuel (08/13/2018 3:15 PM): Assessment & Plan Problems:Added: Dental caries (ICD-521.00) (KRB49-C93.9)Medications:ABILIFY 10 MG ORAL TABLETTRAZODONE HCL 50 MG ORAL TABLETGABAPENTIN 600 MG ORAL TABLETVITAMIN D 1000 UNIT ORAL TABLETVITAMIN D (ERGOCALCIFEROL) 54915 UNIT ORAL CAPSULECENTRUM ADULTS ORAL TABLETSERTRALINE HCL 50 MG ORAL TABLETAllergies:No Known Allergies (updated 04/27/2019) Name Value Range Interpretation Code Description Data Alysa rce(s) Supporting Document(s) Procedure Vital Signs ID Date Data Source UNK Name Value Range Interpretation Code Description Data Source(s) Body weight 2150.4 [oz_av] 2150.4 [oz_av] [facility] Body mass index (BMI) [Ratio] 23.8 kg/m2 23.8 k g/m2 [place] ([facility]) Body height 63 [in_i] 63 [in_i] [place] ([facility]) Body weight 2150.4 [oz_av] 2150.4 [oz_av] ATH A ([facility]) Body mass index (BMI) [Ratio] 23.8 kg/m2 23.8 k g/m2 [place] ([facility]) Body height 63 [in_i] 63 [in_i] [facility] ([facility]) Body weight 2150.4 [oz_av] 2150.4 [oz_av] ATH A ([facility]) Body mass index (BMI) [Ratio] 23.8 kg/m2 23.8 k g/m2 [facility] ([facility]) Body height 63 [in_i] 63 [in_i] [facility] ([facility]) Body weight 2150.4 [oz_av] 2150.4 [oz_av] ATH A ([facility]) Body mass index (BMI) [Ratio] 23.8 kg/m2 23.8 k g/m2 [facility] ([facility]) Body height 63 [in_i] 63 [in_i] [facility] ([facility]) Body weight 2150.4 [oz_av] 2150.4 [oz_av] ATHEN A ([facility]) Body mass index (BMI) [Ratio] 23.8 kg/m2 23.8 k g/m2 [facility] ([facility]) Body height 63 [in_i] 63 [in_i] [facility] ([facility]) Body weight 2150.4 [oz_av] 2150.4 [oz_av] ATHEN A ([facility]) Body mass index (BMI) [Ratio] 23.8 kg/m2 23.8 k g/m2 [place] ([facility]) Body height 63 [in_i] 63 [in_i] [facility] ([facility]) Body weight 2150.4 [oz_av] 2150.4 [oz_av] ATHEN A ([facility]) Body mass index (BMI) [Ratio] 23.8 kg/m2 23.8 k g/m2 [facility] ([facility]) Body height 63 [in_i] 63 [in_i] [facility] ([facility]) Body weight 2150.4 [oz_av] 2150.4 [oz_av] ATHEN A ([facility]) Body mass index (BMI) [Ratio] 23.8 kg/m2 23.8 k g/m2 [place] ([facility]) Body height 63 [in_i] 63 [in_i] [facility] ([facility]) Body weight 2150.4 [oz_av] 2150.4 [oz_av] ATHEN A ([facility]) Body mass index (BMI) [Ratio] 23.8 kg/m2 23.8 k g/m2 [facility] ([facility]) Body height 63 [in_i] 63 [in_i] [facility] ([facility]) Body weight 2150.4 [oz_av] 2150.4 [oz_av] ATHEN A ([facility]) Body mass index (BMI) [Ratio] 23.8 kg/m2 23.8 k g/m2 [facility] ([facility]) Body height 63 [in_i] 63 [in_i] [facility] ([facility]) Body weight 2150.4 [oz_av] 2150.4 [oz_av] ATHEN A ([facility]) Body mass index (BMI) [Ratio] 23.8 kg/m2 23.8 k g/m2 [facility] ([facility]) Body height 63 [in_i] 63 [in_i] [facility] ([facility]) Body weight 2150.4 [oz_av] 2150.4 [oz_av] ATHEN A ([facility]) Body mass index (BMI) [Ratio] 23.8 kg/m2 23.8 k g/m2 [facility] ([facility]) Body height 63 [in_i] 63 [in_i] [facility] ([facility]) Body height 63 [in_i] 63 [in_i] [facility] ([facility]) Body height 63 [in_i] 63 [in_i] [facility] ([facility]) Body height 63 [in_i] 63 [in_i] [facility] ([facility]) Body height 63 [in_i] 63 [in_i] [facility] ([facility]) Body height 63 [in_i] 63 [in_i] [facility] ([facility]) Body height 63 [in_i] 63 [in_i] [facility] ([facility]) Body height 63 [in_i] 63 [in_i] [facility] ([facility]) Body height 63 [in_i] 63 [in_i] [facility] ([facility]) Body height 63 [in_i] 63 [in_i] [facility] ([facility]) Body height 63 [in_i] 63 [in_i] [facility] ([facility]) Body height 63 [in_i] 63 [in_i] [facility] ([facility]) Body height 63 [in_i] 63 [in_i] [facility] ([facility]) Body height 63 [in_i] 63 [in_i] [facility] ([facility]) Body height 63 [in_i] 63 [in_i] [facility] ([facility]) Body height 63 [in_i] 63 [in_i] [facility] ([facility]) Body weight 2008 [oz_av] 2008 [oz_av] [facility] ([facility]) Systolic blood pressure 131 mm[Hg] 131 mm[Hg] A THEN ([facility]) Body mass index (BMI) [Ratio] 22.2 kg/m2 22.2 k g/m2 [facility] ([facility]) Body height 63 [in_i] 63 [in_i] [facility] ([facility]) Diastolic blood pressure 85 mm[Hg] 85 mm[Hg] [facility] ([facility]) Body weight 2008 [oz_av] 2008 [oz_av] [facility] ([facility]) Systolic blood pressure 131 mm[Hg] 131 mm[Hg] A [facility] ([facility]) Body mass index (BMI) [Ratio] 22.2 kg/m2 22.2 k g/m2 [facility] ([facility]) Body height 63 [in_i] 63 [in_i] [facility] ([facility]) Diastolic blood pressure 85 mm[Hg] 85 mm[Hg] [facility] ([facility]) Body weight 2008 [oz_av] 2008 [oz_av] [facility] ([facility]) Systolic blood pressure 131 mm[Hg] 131 mm[Hg] A [facility] ([facility]) Body mass index (BMI) [Ratio] 22.2 kg/m2 22.2 k g/m2 [facility] ([facility]) Body height 63 [in_i] 63 [in_i] NAVEEN ([facility]) Diastolic blood pressure 85 mm[Hg] 85 mm[Hg] NAVEEN ([facility]) Body weight 2008 [oz_av] 2008 [oz_av] NAVEEN ([facility]) Systolic blood pressure 131 mm[Hg] 131 mm[Hg] A [facility] ([facility]) Body mass index (BMI) [Ratio] 22.2 kg/m2 22.2 k g/m2 NAVEEN ([facility]) Body height 63 [in_i] 63 [in_i] NAVEEN ([facility]) Diastolic blood pressure 85 mm[Hg] 85 mm[Hg] NAVEEN ([facility]) Body weight 2008 [oz_av] 2008 [oz_av] NAVEEN ([facility]) Systolic blood pressure 131 mm[Hg] 131 mm[Hg] A THEN ([facility]) Body mass index (BMI) [Ratio] 22.2 kg/m2 22.2 k g/m2 NAVEEN ([facility]) Body height 63 [in_i] 63 [in_i] NAVEEN ([facility]) Diastolic blood pressure 85 mm[Hg] 85 mm[Hg] NAVEEN ([facility]) Body weight 2008 [oz_av] 2008 [oz_av] NAVEEN ([facility]) Systolic blood pressure 131 mm[Hg] 131 mm[Hg] A [facility] ([facility]) Body mass index (BMI) [Ratio] 22.2 kg/m2 22.2 k g/m2 NAVEEN ([facility]) Body height 63 [in_i] 63 [in_i] NAVEEN ([facility]) Diastolic blood pressure 85 mm[Hg] 85 mm[Hg] NAVEEN ([facility]) Body weight 2008 [oz_av] 2008 [oz_av] NAVEEN ([facility]) Systolic blood pressure 131 mm[Hg] 131 mm[Hg] A THEN ([facility]) Body mass index (BMI) [Ratio] 22.2 kg/m2 22.2 k g/m2 NAVEEN ([facility]) Body height 63 [in_i] 63 [in_i] NAVEEN ([facility]) Diastolic blood pressure 85 mm[Hg] 85 mm[Hg] NAVEEN ([facility]) Body weight 2008 [oz_av] 2008 [oz_av] NAVEEN ([facility]) Systolic blood pressure 131 mm[Hg] 131 mm[Hg] A [facility] ([facility]) Body mass index (BMI) [Ratio] 22.2 kg/m2 22.2 k g/m2 NAVEEN ([facility]) Body height 63 [in_i] 63 [in_i] NAVEEN ([facility]) Diastolic blood pressure 85 mm[Hg] 85 mm[Hg] NAVEEN ([facility]) Body weight 2008 [oz_av] 2008 [oz_av] NAVEEN ([facility]) Systolic blood pressure 131 mm[Hg] 131 mm[Hg] A [facility] ([facility]) Body mass index (BMI) [Ratio] 22.2 kg/m2 22.2 k g/m2 NAVEEN ([facility]) Body height 63 [in_i] 63 [in_i] NAVEEN ([facility]) Diastolic blood pressure 85 mm[Hg] 85 mm[Hg] NAVEEN ([facility]) Body weight 2008 [oz_av] 2008 [oz_av] NAVEEN ([facility]) Systolic blood pressure 131 mm[Hg] 131 mm[Hg] A [facility] ([facility]) Body mass index (BMI) [Ratio] 22.2 kg/m2 22.2 k g/m2 NAVEEN ([facility]) Body height 63 [in_i] 63 [in_i] NAVEEN ([facility]) Diastolic blood pressure 85 mm[Hg] 85 mm[Hg] NAVEEN ([facility]) Body weight 2008 [oz_av] 2008 [oz_av] NAVEEN ([facility]) Systolic blood pressure 131 mm[Hg] 131 mm[Hg] A [facility] ([facility]) Body mass index (BMI) [Ratio] 22.2 kg/m2 22.2 k g/m2 NAVEEN ([facility]) Body height 63 [in_i] 63 [in_i] NAVEEN ([facility]) Diastolic blood pressure 85 mm[Hg] 85 mm[Hg] NAVEEN ([facility]) Body weight 2008 [oz_av] 2008 [oz_av] NAVEEN ([facility]) Systolic blood pressure 131 mm[Hg] 131 mm[Hg] A [facility] ([facility]) Body mass index (BMI) [Ratio] 22.2 kg/m2 22.2 k g/m2 NAVEEN ([facility]) Body height 63 [in_i] 63 [in_i] NAVEEN ([facility]) Diastolic blood pressure 85 mm[Hg] 85 mm[Hg] NAVEEN ([facility]) Body weight 2008 [oz_av] 2008 [oz_av] NAVEEN ([facility]) Systolic blood pressure 131 mm[Hg] 131 mm[Hg] [facility] Body mass index (BMI) [Ratio] 22.2 kg/m2 22.2 k g/m2 NAVEEN ([facility]) Body height 63 [in_i] 63 [in_i] NAVEEN ([facility]) Diastolic blood pressure 85 mm[Hg] 85 mm[Hg] NAVEEN ([facility]) Body weight 2008 [oz_av] 2008 [oz_av] NAVEEN ([facility]) Systolic blood pressure 131 mm[Hg] 131 mm[Hg] [facility] Body mass index (BMI) [Ratio] 22.2 kg/m2 22.2 k g/m2 NAVEEN ([facility]) Body height 63 [in_i] 63 [in_i] NAVEEN ([facility]) Diastolic blood pressure 85 mm[Hg] 85 mm[Hg] NAVEEN ([facility]) Body weight 2008 [oz_av] 2008 [oz_av] NAVEEN ([facility]) Systolic blood pressure 131 mm[Hg] 131 mm[Hg] [facility] Body mass index (BMI) [Ratio] 22.2 kg/m2 22.2 k g/m2 NAVEEN ([facility]) Body height 63 [in_i] 63 [in_i] NAVEEN ([facility]) Diastolic blood pressure 85 mm[Hg] 85 mm[Hg] NAVEEN ([facility]) Body weight 2008 [oz_av] 2008 [oz_av] NAVEEN ([facility]) Systolic blood pressure 131 mm[Hg] 131 mm[Hg] [facility] Body mass index (BMI) [Ratio] 22.2 kg/m2 22.2 k g/m2 NAVEEN ([facility]) Body height 63 [in_i] 63 [in_i] NAVEEN ([facility]) Diastolic blood pressure 85 mm[Hg] 85 mm[Hg] NAVEEN ([facility]) Body weight 2008 [oz_av] 2008 [oz_av] NAVEEN ([facility]) Systolic blood pressure 131 mm[Hg] 131 mm[Hg] A THENA ([facility]) Body mass index (BMI) [Ratio] 22.2 kg/m2 22.2 k g/m2 NAVEEN ([facility]) Body height 63 [in_i] 63 [in_i] NAVEEN ([facility]) Diastolic blood pressure 85 mm[Hg] 85 mm[Hg] NAVEEN ([facility]) Body weight 2008 [oz_av] 2008 [oz_av] NAVEEN ([facility]) Systolic blood pressure 131 mm[Hg] 131 mm[Hg] [facility] Body mass index (BMI) [Ratio] 22.2 kg/m2 22.2 k g/m2 NAVEEN ([facility]) Body height 63 [in_i] 63 [in_i] NAVEEN ([facility]) Diastolic blood pressure 85 mm[Hg] 85 mm[Hg] NAVEEN ([facility]) Body weight 2008 [oz_av] 2008 [oz_av] NAVEEN ([facility]) Systolic blood pressure 131 mm[Hg] 131 mm[Hg] A THENA ([facility]) Body mass index (BMI) [Ratio] 22.2 kg/m2 22.2 k g/m2 NAVEEN ([facility]) Body height 63 [in_i] 63 [in_i] NAVEEN ([facility]) Diastolic blood pressure 85 mm[Hg] 85 mm[Hg] NAVEEN ([facility]) Body weight 2008 [oz_av] 2008 [oz_av] NAVEEN ([facility]) Systolic blood pressure 131 mm[Hg] 131 mm[Hg] A THENA ([facility]) Body mass index (BMI) [Ratio] 22.2 kg/m2 22.2 k g/m2 NAVEEN ([facility]) Body height 63 [in_i] 63 [in_i] NAVEEN ([facility]) Diastolic blood pressure 85 mm[Hg] 85 mm[Hg] NAVEEN ([facility]) Body weight 2008 [oz_av] 2008 [oz_av] NAVEEN ([facility]) Systolic blood pressure 131 mm[Hg] 131 mm[Hg] A THENA ([facility]) Body mass index (BMI) [Ratio] 22.2 kg/m2 22.2 k g/m2 NAVEEN ([facility]) Body height 63 [in_i] 63 [in_i] NAVEEN ([facility]) Diastolic blood pressure 85 mm[Hg] 85 mm[Hg] NAVEEN ([facility]) Body weight 2150.08 [oz_av] 2150.08 [oz_av] ATH BRISEIDA ([facility]) Systolic blood pressure 105 mm[Hg] 105 mm[Hg] A THENA ([facility]) Body mass index (BMI) [Ratio] 23.89 kg/m2 23.89 kg/m2 NAVEEN ([facility]) Body height 63 [in_i] 63 [in_i] NAVEEN ([facility]) Diastolic blood pressure 71 mm[Hg] 71 mm[Hg] NAVEEN ([facility]) Body weight 2150.08 [oz_av] 2150.08 [oz_av] ATH BRISEIDA ([facility]) Systolic blood pressure 105 mm[Hg] 105 mm[Hg] A THENA ([facility]) Body mass index (BMI) [Ratio] 23.89 kg/m2 23.89 kg/m2 NAVEEN ([facility]) Body height 63 [in_i] 63 [in_i] NAVEEN ([facility]) Diastolic blood pressure 71 mm[Hg] 71 mm[Hg] NAVEEN ([facility]) Body weight 2150.08 [oz_av] 2150.08 [oz_av] ATH BRISEIDA ([facility]) Systolic blood pressure 105 mm[Hg] 105 mm[Hg] A THENA ([facility]) Body mass index (BMI) [Ratio] 23.89 kg/m2 23.89 kg/m2 NAVEEN ([facility]) Body height 63 [in_i] 63 [in_i] NAVEEN ([facility]) Diastolic blood pressure 71 mm[Hg] 71 mm[Hg] NAVEEN ([facility]) Body weight 2150.08 [oz_av] 2150.08 [oz_av] ATH BRISEIDA ([facility]) Systolic blood pressure 105 mm[Hg] 105 mm[Hg] A THENA ([facility]) Body mass index (BMI) [Ratio] 23.89 kg/m2 23.89 kg/m2 NAVEEN ([facility]) Body height 63 [in_i] 63 [in_i] NAVEEN ([facility]) Diastolic blood pressure 71 mm[Hg] 71 mm[Hg] NAVEEN ([facility]) Body weight 2150.08 [oz_av] 2150.08 [oz_av] ATH BRISEIDA ([facility]) Systolic blood pressure 105 mm[Hg] 105 mm[Hg] A THENA ([facility]) Body mass index (BMI) [Ratio] 23.89 kg/m2 23.89 kg/m2 NAVEEN ([facility]) Body height 63 [in_i] 63 [in_i] NAVEEN ([facility]) Diastolic blood pressure 71 mm[Hg] 71 mm[Hg] ANVEEN ([facility]) Body weight 2150.08 [oz_av] 2150.08 [oz_av] ATH BRISEIDA ([facility]) Systolic blood pressure 105 mm[Hg] 105 mm[Hg] A THENA ([facility]) Body mass index (BMI) [Ratio] 23.89 kg/m2 23.89 kg/m2 NAVEEN ([facility]) Body height 63 [in_i] 63 [in_i] NAVEEN ([facility]) Diastolic blood pressure 71 mm[Hg] 71 mm[Hg] NAVEEN ([facility]) Body weight 2150.08 [oz_av] 2150.08 [oz_av] ATH BRISEIDA ([facility]) Systolic blood pressure 105 mm[Hg] 105 mm[Hg] A THENA ([facility]) Body mass index (BMI) [Ratio] 23.89 kg/m2 23.89 kg/m2 NAVEEN ([facility]) Body height 63 [in_i] 63 [in_i] NAVEEN ([facility]) Diastolic blood pressure 71 mm[Hg] 71 mm[Hg] NAVEEN ([facility]) Body weight 2150.08 [oz_av] 2150.08 [oz_av] ATH BRISEIDA ([facility]) Systolic blood pressure 105 mm[Hg] 105 mm[Hg] A THENA ([facility]) Body mass index (BMI) [Ratio] 23.89 kg/m2 23.89 kg/m2 NAVEEN ([facility]) Body height 63 [in_i] 63 [in_i] NAVEEN ([facility]) Diastolic blood pressure 71 mm[Hg] 71 mm[Hg] NAVEEN ([facility]) Body weight 2150.08 [oz_av] 2150.08 [oz_av] ATH BRISEIDA ([facility]) Systolic blood pressure 105 mm[Hg] 105 mm[Hg] A THENA ([facility]) Body mass index (BMI) [Ratio] 23.89 kg/m2 23.89 kg/m2 NAVEEN ([facility]) Body height 63 [in_i] 63 [in_i] NAVEEN ([facility]) Diastolic blood pressure 71 mm[Hg] 71 mm[Hg] NAVEEN ([facility]) Body weight 2150.08 [oz_av] 2150.08 [oz_av] ATH BRISEIDA ([facility]) Systolic blood pressure 105 mm[Hg] 105 mm[Hg] A THENA ([facility]) Body mass index (BMI) [Ratio] 23.89 kg/m2 23.89 kg/m2 NAVEEN ([facility]) Body height 63 [in_i] 63 [in_i] NAVEEN ([facility]) Diastolic blood pressure 71 mm[Hg] 71 mm[Hg] NAVEEN ([facility]) Body weight 2082.08 [oz_av] 2082.08 [oz_av] ATH BRISEIDA ([facility]) Systolic blood pressure 99 mm[Hg] 99 mm[Hg] A THENA ([facility]) Body weight 2082.08 [oz_av] 2082.08 [oz_av] ATH BRISEIDA ([facility]) Systolic blood pressure 99 mm[Hg] 99 mm[Hg] [facility] Body mass index (BMI) [Ratio] 23.13 kg/m2 23.13 kg/m2 NAVEEN ([facility]) Body height 63 [in_i] 63 [in_i] NAVEEN ([facility]) Diastolic blood pressure 64 mm[Hg] 64 mm[Hg] NAVEEN ([facility]) Body mass index (BMI) [Ratio] 23.13 kg/m2 23.13 kg/m2 NAVEEN ([facility]) Body height 63 [in_i] 63 [in_i] NAVEEN ([facility]) Diastolic blood pressure 64 mm[Hg] 64 mm[Hg] NAVEEN ([facility]) Body weight 2082.08 [oz_av] 2082.08 [oz_av] ATH BRISEIDA ([facility]) Systolic blood pressure 99 mm[Hg] 99 mm[Hg] A [facility] ([facility]) Body mass index (BMI) [Ratio] 23.13 kg/m2 23.13 kg/m2 NAVEEN ([facility]) Body height 63 [in_i] 63 [in_i] NAVEEN ([facility]) Diastolic blood pressure 64 mm[Hg] 64 mm[Hg] NAVEEN ([facility]) Body weight 2082.08 [oz_av] 2082.08 [oz_av] ATH BRISEIDA ([facility]) Systolic blood pressure 99 mm[Hg] 99 mm[Hg] A THENA ([facility]) Body mass index (BMI) [Ratio] 23.13 kg/m2 23.13 kg/m2 NAVEEN ([facility]) Body height 63 [in_i] 63 [in_i] NAVEEN ([facility]) Diastolic blood pressure 64 mm[Hg] 64 mm[Hg] NAVEEN ([facility]) Body weight 2082.08 [oz_av] 2082.08 [oz_av] ATH BRISEIDA ([facility]) Systolic blood pressure 99 mm[Hg] 99 mm[Hg] A THEN ([facility]) Body mass index (BMI) [Ratio] 23.13 kg/m2 23.13 kg/m2 NAVEEN ([facility]) Body height 63 [in_i] 63 [in_i] NAVEEN ([facility]) Diastolic blood pressure 64 mm[Hg] 64 mm[Hg] NAVEEN ([facility]) Body weight 2082.08 [oz_av] 2082.08 [oz_av] ATH BRISEIDA ([facility]) Systolic blood pressure 99 mm[Hg] 99 mm[Hg] [facility] Body mass index (BMI) [Ratio] 23.13 kg/m2 23.13 kg/m2 NAVEEN ([facility]) Body height 63 [in_i] 63 [in_i] NAVEEN ([facility]) Diastolic blood pressure 64 mm[Hg] 64 mm[Hg] NAVEEN ([facility]) Body weight 2082.08 [oz_av] 2082.08 [oz_av] ATH BRISEIDA ([facility]) Systolic blood pressure 99 mm[Hg] 99 mm[Hg] A [facility] ([facility]) Body mass index (BMI) [Ratio] 23.13 kg/m2 23.13 kg/m2 NAVEEN ([facility]) Body height 63 [in_i] 63 [in_i] NAVEEN ([facility]) Diastolic blood pressure 64 mm[Hg] 64 mm[Hg] NAVEEN ([facility]) Body weight 2082.08 [oz_av] 2082.08 [oz_av] ATH BRISEIDA ([facility]) Systolic blood pressure 99 mm[Hg] 99 mm[Hg] A THENA ([facility]) Body mass index (BMI) [Ratio] 23.13 kg/m2 23.13 kg/m2 NAVEEN ([facility]) Body height 63 [in_i] 63 [in_i] NAVEEN ([facility]) Diastolic blood pressure 64 mm[Hg] 64 mm[Hg] NAVEEN ([facility]) Body weight 2082.08 [oz_av] 2082.08 [oz_av] ATH BRISEIDA ([facility]) Systolic blood pressure 99 mm[Hg] 99 mm[Hg] A [facility] ([facility]) Body mass index (BMI) [Ratio] 23.13 kg/m2 23.13 kg/m2 NAVEEN ([facility]) Body height 63 [in_i] 63 [in_i] NAVEEN ([facility]) Diastolic blood pressure 64 mm[Hg] 64 mm[Hg] NAVEEN ([facility]) Body weight 2082.08 [oz_av] 2082.08 [oz_av] ATH BRISEIDA ([facility]) Systolic blood pressure 99 mm[Hg] 99 mm[Hg] [facility] Body height 63 [in_i] 63 [in_i] NAVEEN ([facility]) Diastolic blood pressure 64 mm[Hg] 64 mm[Hg] NAVEEN ([facility]) Body weight 2082.08 [oz_av] 2082.08 [oz_av] ATH BRISEIDA ([facility]) Systolic blood pressure 99 mm[Hg] 99 mm[Hg] [facility] Body height 63 [in_i] 63 [in_i] NAVEEN ([facility]) Diastolic blood pressure 64 mm[Hg] 64 mm[Hg] NAVEEN ([facility]) Body weight 2082.08 [oz_av] 2082.08 [oz_av] ATH BRISEIDA ([facility]) Systolic blood pressure 99 mm[Hg] 99 mm[Hg] [facility] Body height 63 [in_i] 63 [in_i] NAVEEN ([facility]) Diastolic blood pressure 64 mm[Hg] 64 mm[Hg] NAVEEN ([facility]) Body weight 2082.08 [oz_av] 2082.08 [oz_av] ATH BRISEIDA ([facility]) Systolic blood pressure 99 mm[Hg] 99 mm[Hg] A THENA ([facility]) Body height 63 [in_i] 63 [in_i] NAVEEN ([facility]) Diastolic blood pressure 64 mm[Hg] 64 mm[Hg] NAVEEN ([facility]) Body weight 2082.08 [oz_av] 2082.08 [oz_av] ATH BRISEIDA ([facility]) Systolic blood pressure 99 mm[Hg] 99 mm[Hg] [facility] Body height 63 [in_i] 63 [in_i] NAVEEN ([facility]) Diastolic blood pressure 64 mm[Hg] 64 mm[Hg] NAVEEN ([facility]) Body weight 2082.08 [oz_av] 2082.08 [oz_av] ATH BRISEIDA ([facility]) Systolic blood pressure 99 mm[Hg] 99 mm[Hg] A THENA ([facility]) Body height 63 [in_i] 63 [in_i] NAVEEN ([facility]) Diastolic blood pressure 64 mm[Hg] 64 mm[Hg] NAVEEN ([facility]) Body weight 2082.08 [oz_av] 2082.08 [oz_av] ATH BRISEIDA ([facility]) Systolic blood pressure 99 mm[Hg] 99 mm[Hg] [facility] Body height 63 [in_i] 63 [in_i] NAVEEN ([facility]) Diastolic blood pressure 64 mm[Hg] 64 mm[Hg] NAVEEN ([facility]) Body weight 2082.08 [oz_av] 2082.08 [oz_av] ATH BRISEIDA ([facility]) Systolic blood pressure 99 mm[Hg] 99 mm[Hg] [facility] Body height 63 [in_i] 63 [in_i] NAVEEN ([facility]) Diastolic blood pressure 64 mm[Hg] 64 mm[Hg] NAVEEN ([facility]) Body weight 2082.08 [oz_av] 2082.08 [oz_av] ATH BRISEIDA ([facility]) Systolic blood pressure 99 mm[Hg] 99 mm[Hg] [facility] Body height 63 [in_i] 63 [in_i] NAVEEN ([facility]) Diastolic blood pressure 64 mm[Hg] 64 mm[Hg] NAVEEN ([facility]) Body weight 2082.08 [oz_av] 2082.08 [oz_av] ATH BRISEIDA ([facility]) Systolic blood pressure 99 mm[Hg] 99 mm[Hg] [facility] Body height 63 [in_i] 63 [in_i] NAVEEN ([facility]) Diastolic blood pressure 64 mm[Hg] 64 mm[Hg] NAVEEN ([facility]) Body weight 2082.08 [oz_av] 208.08 [oz_av] ATH BRISEIDA ([facility]) Systolic blood pressure 99 mm[Hg] 99 mm[Hg] A THENA ([facility]) Body mass index (BMI) [Ratio] 23.13 kg/m2 23.13 kg/m2 NAVEEN ([facility]) Body height 63 [in_i] 63 [in_i] NAVEEN ([facility]) Diastolic blood pressure 64 mm[Hg] 64 mm[Hg] NAVEEN ([facility]) Body weight 2081.08 [oz_av] 208.08 [oz_av] ATH BRISEIDA ([facility]) Systolic blood pressure 99 mm[Hg] 99 mm[Hg] [facility] Body height 63 [in_i] 63 [in_i] NAVEEN ([facility]) Diastolic blood pressure 64 mm[Hg] 64 mm[Hg] NAVEEN ([facility]) Body weight 2.08 [oz_av] 2081.08 [oz_av] ATH BRISEIDA ([facility]) Systolic blood pressure 99 mm[Hg] 99 mm[Hg] [facility] Body height 63 [in_i] 63 [in_i] NAVEEN ([facility]) Diastolic blood pressure 64 mm[Hg] 64 mm[Hg] NAVEEN ([facility]) Body weight 2.08 [oz_av] 2082.08 [oz_av] ATH BRISEIDA ([facility]) Systolic blood pressure 99 mm[Hg] 99 mm[Hg] [facility] Body height 63 [in_i] 63 [in_i] NAVEEN ([facility]) Diastolic blood pressure 64 mm[Hg] 64 mm[Hg] NAVEEN ([facility]) Body weight 2.08 [oz_av] 208.08 [oz_av] ATH BRISEIDA ([facility]) Systolic blood pressure 99 mm[Hg] 99 mm[Hg] A THENA ([facility]) Body height 63 [in_i] 63 [in_i] NAVEEN ([facility]) Diastolic blood pressure 64 mm[Hg] 64 mm[Hg] NAVEEN ([facility]) Body weight 2104 [oz_av] 2104 [oz_av] NAVEEN ([facility]) Body mass index (BMI) [Ratio] 23.38 kg/m2 23.38 kg/m2 NAVEEN ([facility]) Body height 63 [in_i] 63 [in_i] NAVEEN ([facility]) Body weight 2104 [oz_av] 2104 [oz_av] NAVEEN ([facility]) Body mass index (BMI) [Ratio] 23.38 kg/m2 23.38 kg/m2 NAVEEN ([facility]) Body height 63 [in_i] 63 [in_i] NAVEEN ([facility]) Body weight 2104 [oz_av] 2104 [oz_av] NAVEEN ([facility]) Body mass index (BMI) [Ratio] 23.38 kg/m2 23.38 kg/m2 NAVEEN ([facility]) Body height 63 [in_i] 63 [in_i] NAVEEN ([facility]) Body weight 2104 [oz_av] 2104 [oz_av] NAVEEN ([facility]) Body mass index (BMI) [Ratio] 23.38 kg/m2 23.38 kg/m2 NAVEEN ([facility]) Body height 63 [in_i] 63 [in_i] NAVEEN ([facility]) Body weight 2104 [oz_av] 2104 [oz_av] NAVEEN ([facility]) Body mass index (BMI) [Ratio] 23.38 kg/m2 23.38 kg/m2 NAVEEN ([facility]) Body height 63 [in_i] 63 [in_i] NAVEEN ([facility]) Body weight 2104 [oz_av] 2104 [oz_av] NAVEEN ([facility]) Body mass index (BMI) [Ratio] 23.38 kg/m2 23.38 kg/m2 NAVEEN ([facility]) Body height 63 [in_i] 63 [in_i] NAVEEN ([facility]) Body weight 2104 [oz_av] 2104 [oz_av] NAVEEN ([facility]) Body mass index (BMI) [Ratio] 23.38 kg/m2 23.38 kg/m2 NAVEEN ([facility]) Body height 63 [in_i] 63 [in_i] NAVEEN ([facility]) Body weight 2104 [oz_av] 2104 [oz_av] NAVEEN ([facility]) Body mass index (BMI) [Ratio] 23.38 kg/m2 23.38 kg/m2 NAVEEN ([facility]) Body height 63 [in_i] 63 [in_i] NAVEEN ([facility]) Body weight 2104 [oz_av] 2104 [oz_av] NAVEEN ([facility]) Body mass index (BMI) [Ratio] 23.38 kg/m2 23.38 kg/m2 NAVEEN ([facility]) Body height 63 [in_i] 63 [in_i] NAVEEN ([facility]) Body weight 2104 [oz_av] 2104 [oz_av] NAVEEN ([facility]) Body height 63 [in_i] 63 [in_i] NAVEEN ([facility]) Body weight 2104 [oz_av] 2104 [oz_av] NAVEEN ([facility]) Body height 63 [in_i] 63 [in_i] NAVEEN ([facility]) Body weight 2104 [oz_av] 2104 [oz_av] NAVEEN ([facility]) Body height 63 [in_i] 63 [in_i] NAVEEN ([facility]) Body weight 2104 [oz_av] 2104 [oz_av] NAVEEN ([facility]) Body height 63 [in_i] 63 [in_i] NAVEEN ([facility]) Body weight 2104 [oz_av] 2104 [oz_av] NAVEEN ([facility]) Body height 63 [in_i] 63 [in_i] NAVEEN ([facility]) Body weight 2104 [oz_av] 2104 [oz_av] NAVEEN ([facility]) Body height 63 [in_i] 63 [in_i] NAVEEN ([facility]) Body weight 2104 [oz_av] 2104 [oz_av] NAVEEN ([facility]) Body height 63 [in_i] 63 [in_i] NAVEEN ([facility]) Body weight 2104 [oz_av] 2104 [oz_av] NAVEEN ([facility]) Body height 63 [in_i] 63 [in_i] NAVEEN ([facility]) Body weight 2104 [oz_av] 2104 [oz_av] NAVEEN ([facility]) Body height 63 [in_i] 63 [in_i] NAVEEN ([facility]) Body weight 2104 [oz_av] 2104 [oz_av] NAVEEN ([facility]) Body height 63 [in_i] 63 [in_i] NAVEEN ([facility]) Body weight 2104 [oz_av] 2104 [oz_av] NAVEEN ([facility]) Body mass index (BMI) [Ratio] 23.38 kg/m2 23.38 kg/m2 NAVEEN ([facility]) Body height 63 [in_i] 63 [in_i] NAVEEN ([facility]) Body weight 2104 [oz_av] 2104 [oz_av] NAVEEN ([facility]) Body height 63 [in_i] 63 [in_i] NAVEEN ([facility]) Body weight 2104 [oz_av] 2104 [oz_av] NAVEEN ([facility]) Body height 63 [in_i] 63 [in_i] NAVEEN ([facility]) Body weight 2104 [oz_av] 2104 [oz_av] NAVEEN ([facility]) Body height 63 [in_i] 63 [in_i] NAVEEN ([facility]) Body weight 2104 [oz_av] 210 [oz_av] NAVEEN ([facility]) Body height 63 [in_i] 63 [in_i] NAVEEN ([facility]) Body weight 2095 [oz_av] 209 [oz_av] NAVEEN ([facility]) Body mass index (BMI) [Ratio] 23.29 kg/m2 23.29 kg/m2 NAVEEN ([facility]) Body height 63 [in_i] 63 [in_i] NAVEEN ([facility]) Body weight 2095 [oz_av] 2096 [oz_av] NAVEEN ([facility]) Body mass index (BMI) [Ratio] 23.29 kg/m2 23.29 kg/m2 NAVEEN ([facility]) Body height 63 [in_i] 63 [in_i] NAVEEN ([facility]) Body weight 2095 [oz_av] 2096 [oz_av] NAVEEN ([facility]) Body mass index (BMI) [Ratio] 23.29 kg/m2 23.29 kg/m2 NAVEEN ([facility]) Body height 63 [in_i] 63 [in_i] NAVEEN ([facility]) Body weight 2095 [oz_av] 2096 [oz_av] NAVEEN ([facility]) Body mass index (BMI) [Ratio] 23.29 kg/m2 23.29 kg/m2 NAVEEN ([facility]) Body height 63 [in_i] 63 [in_i] NAVEEN ([facility]) Body weight 2095 [oz_av] 209 [oz_av] NAVEEN ([facility]) Body mass index (BMI) [Ratio] 23.29 kg/m2 23.29 kg/m2 NAVEEN ([facility]) Body height 63 [in_i] 63 [in_i] NAVEEN ([facility]) Body weight 2095 [oz_av] 2096 [oz_av] NAVEEN ([facility]) Body mass index (BMI) [Ratio] 23.29 kg/m2 23.29 kg/m2 NAVEEN ([facility]) Body height 63 [in_i] 63 [in_i] NAVEEN ([facility]) Body weight 2095 [oz_av] 2096 [oz_av] NAVEEN ([facility]) Body mass index (BMI) [Ratio] 23.29 kg/m2 23.29 kg/m2 NAVEEN ([facility]) Body height 63 [in_i] 63 [in_i] NAVEEN ([facility]) Body weight 2095 [oz_av] 2096 [oz_av] NAVEEN ([facility]) Body mass index (BMI) [Ratio] 23.29 kg/m2 23.29 kg/m2 NAVEEN ([facility]) Body height 63 [in_i] 63 [in_i] NAVEEN ([facility]) Body weight 2095 [oz_av] 2096 [oz_av] NAVEEN ([facility]) Body mass index (BMI) [Ratio] 23.29 kg/m2 23.29 kg/m2 NAVEEN ([facility]) Body height 63 [in_i] 63 [in_i] NAVEEN ([facility]) Body weight 2095 [oz_av] 2096 [oz_av] NAVEEN ([facility]) Body height 63 [in_i] 63 [in_i] NAVEEN ([facility]) Body weight 2095 [oz_av] 2096 [oz_av] NAVEEN ([facility]) Body height 63 [in_i] 63 [in_i] ANVEEN ([facility]) Body weight 2095 [oz_av] 2096 [oz_av] NAVEEN ([facility]) Body height 63 [in_i] 63 [in_i] NAVEEN ([facility]) Body weight 2096 [oz_av] 2096 [oz_av] NAVEEN ([facility]) Body height 63 [in_i] 63 [in_i] NAVEEN ([facility]) Body weight 2096 [oz_av] 2096 [oz_av] NAVEEN ([facility]) Body height 63 [in_i] 63 [in_i] NAVEEN ([facility]) Body weight 2095 [oz_av] 2096 [oz_av] NAVEEN ([facility]) Body height 63 [in_i] 63 [in_i] NVAEEN ([facility]) Body weight 2095 [oz_av] 2096 [oz_av] NAVEEN ([facility]) Body height 63 [in_i] 63 [in_i] NAVEEN ([facility]) Body weight 2095 [oz_av] 2096 [oz_av] NAVEEN ([facility]) Body height 63 [in_i] 63 [in_i] NAVEEN ([facility]) Body weight 209 [oz_av] 2096 [oz_av] NAVEEN ([facility]) Body height 63 [in_i] 63 [in_i] NAVEEN ([facility]) Body weight 2095 [oz_av] 2096 [oz_av] NAVEEN ([facility]) Body height 63 [in_i] 63 [in_i] NAVEEN ([facility]) Body weight 2095 [oz_av] 2096 [oz_av] NAVEEN ([facility]) Body mass index (BMI) [Ratio] 23.29 kg/m2 23.29 kg/m2 NAVEEN ([facility]) Body height 63 [in_i] 63 [in_i] NAVEEN ([facility]) Body weight 2095 [oz_av] 2096 [oz_av] NAVEEN ([facility]) Body height 63 [in_i] 63 [in_i] NAVEEN ([facility]) Body weight 2095 [oz_av] 2096 [oz_av] NAVEEN ([facility]) Body height 63 [in_i] 63 [in_i] NAVEEN ([facility]) Body weight 2096 [oz_av] 2096 [oz_av] NAVEEN ([facility]) Body height 63 [in_i] 63 [in_i] NAVEEN ([facility]) Body weight 2096 [oz_av] 2096 [oz_av] NAVEEN ([facility]) Body height 63 [in_i] 63 [in_i] NAVEEN ([facility]) Body weight 2116 [oz_av] 2116 [oz_av] NAVEEN ([facility]) Body mass index (BMI) [Ratio] 23.51 kg/m2 23.51 kg/m2 NAVEEN ([facility]) Body height 63 [in_i] 63 [in_i] NAVEEN ([facility]) Body weight 2116 [oz_av] 2116 [oz_av] NAVEEN ([facility]) Body mass index (BMI) [Ratio] 23.51 kg/m2 23.51 kg/m2 NAVEEN ([facility]) Body height 63 [in_i] 63 [in_i] NAVEEN ([facility]) Body weight 2116 [oz_av] 2116 [oz_av] NAVEEN ([facility]) Body mass index (BMI) [Ratio] 23.51 kg/m2 23.51 kg/m2 NAVEEN ([facility]) Body height 63 [in_i] 63 [in_i] NAVEEN ([facility]) Body weight 2116 [oz_av] 2116 [oz_av] NAVEEN ([facility]) Body mass index (BMI) [Ratio] 23.51 kg/m2 23.51 kg/m2 NAVEEN ([facility]) Body height 63 [in_i] 63 [in_i] NAVEEN ([facility]) Body weight 2116 [oz_av] 2116 [oz_av] NAVEEN ([facility]) Body mass index (BMI) [Ratio] 23.51 kg/m2 23.51 kg/m2 NAVEEN ([facility]) Body height 63 [in_i] 63 [in_i] NAVEEN ([facility]) Body weight 2116 [oz_av] 2116 [oz_av] NAVEEN ([facility]) Body mass index (BMI) [Ratio] 23.51 kg/m2 23.51 kg/m2 NAVEEN ([facility]) Body height 63 [in_i] 63 [in_i] NAVEEN ([facility]) Body weight 2116 [oz_av] 2116 [oz_av] NAVEEN ([facility]) Body mass index (BMI) [Ratio] 23.51 kg/m2 23.51 kg/m2 NAVEEN ([facility]) Body height 63 [in_i] 63 [in_i] NAVEEN ([facility]) Body weight 2116 [oz_av] 2116 [oz_av] NAVEEN ([facility]) Body mass index (BMI) [Ratio] 23.51 kg/m2 23.51 kg/m2 NAVEEN ([facility]) Body height 63 [in_i] 63 [in_i] NAVEEN ([facility]) Body weight 2116 [oz_av] 2116 [oz_av] NAVEEN ([facility]) Body weight 2116 [oz_av] 2116 [oz_av] NAVEEN ([facility]) Body mass index (BMI) [Ratio] 23.51 kg/m2 23.51 kg/m2 NAVEEN ([facility]) Body height 63 [in_i] 63 [in_i] NAVEEN ([facility]) Body height 63 [in_i] 63 [in_i] NAVEEN ([facility]) Body weight 2116 [oz_av] 2116 [oz_av] NAVEEN ([facility]) Body height 63 [in_i] 63 [in_i] NAVEEN ([facility]) Body weight 2116 [oz_av] 2116 [oz_av] NAVEEN ([facility]) Body height 63 [in_i] 63 [in_i] NAVEEN ([facility]) Body weight 2116 [oz_av] 2116 [oz_av] NAVEEN ([facility]) Body height 63 [in_i] 63 [in_i] NAVEEN ([facility]) Body weight 2116 [oz_av] 2116 [oz_av] NAVEEN ([facility]) Body height 63 [in_i] 63 [in_i] NAVEEN ([facility]) Body weight 2116 [oz_av] 2116 [oz_av] NAVEEN ([facility]) Body height 63 [in_i] 63 [in_i] NAVEEN ([facility]) Body weight 2116 [oz_av] 2116 [oz_av] NAVEEN ([facility]) Body height 63 [in_i] 63 [in_i] NAVEEN ([facility]) Body weight 2116 [oz_av] 2116 [oz_av] NAVEEN ([facility]) Body height 63 [in_i] 63 [in_i] NAVEEN ([facility]) Body weight 2116 [oz_av] 2116 [oz_av] NAVEEN ([facility]) Body height 63 [in_i] 63 [in_i] NAVEEN ([facility]) Body weight 2116 [oz_av] 2116 [oz_av] NAVEEN ([facility]) Body height 63 [in_i] 63 [in_i] NAVEEN ([facility]) Body height 63 [in_i] 63 [in_i] NAVEEN ([facility]) Body weight 2116 [oz_av] 2116 [oz_av] NAVEEN ([facility]) Body height 63 [in_i] 63 [in_i] NAVEEN ([facility]) Body weight 2116 [oz_av] 2116 [oz_av] NAVEEN ([facility]) Body height 63 [in_i] 63 [in_i] NAVEEN ([facility]) Body weight 2116 [oz_av] 2116 [oz_av] NAVEEN ([facility]) Body height 63 [in_i] 63 [in_i] NAVEEN ([facility]) Body weight 2116 [oz_av] 2116 [oz_av] NAVEEN ([facility]) Body mass index (BMI) [Ratio] 23.51 kg/m2 23.51 kg/m2 NAVEEN ([facility]) Body weight 2116 [oz_av] 2116 [oz_av] NAVEEN ([facility]) Body height 63 [in_i] 63 [in_i] NAVEEN ([facility]) Body weight 1986.08 [oz_av] 1986.08 [oz_av] ATH BRISEIDA ([facility]) Body mass index (BMI) [Ratio] 22.07 kg/m2 22.07 kg/m2 NAVEEN ([facility]) Body height 63 [in_i] 63 [in_i] NAVEEN ([facility]) Body weight 1986.08 [oz_av] 1986.08 [oz_av] ATH BRISEIDA ([facility]) Body mass index (BMI) [Ratio] 22.07 kg/m2 22.07 kg/m2 NAVEEN ([facility]) Body height 63 [in_i] 63 [in_i] NAVEEN ([facility]) Body weight 1986.08 [oz_av] 1986.08 [oz_av] ATH BRISEIDA ([facility]) Body mass index (BMI) [Ratio] 22.07 kg/m2 22.07 kg/m2 NAVEEN ([facility]) Body height 63 [in_i] 63 [in_i] NAVEEN ([facility]) Body weight 1986.08 [oz_av] 1986.08 [oz_av] ATH BRISEIDA ([facility]) Body weight 1986.08 [oz_av] 1986.08 [oz_av] ATH BRISEIDA ([facility]) Body mass index (BMI) [Ratio] 22.07 kg/m2 22.07 kg/m2 NAVEEN ([facility]) Body height 63 [in_i] 63 [in_i] NAVEEN ([facility]) Body mass index (BMI) [Ratio] 22.07 kg/m2 22.07 kg/m2 NAVEEN ([facility]) Body height 63 [in_i] 63 [in_i] NAVEEN ([facility]) Body weight 1986.08 [oz_av] 1986.08 [oz_av] ATH BRISEIDA ([facility]) Body mass index (BMI) [Ratio] 22.07 kg/m2 22.07 kg/m2 NAVEEN ([facility]) Body height 63 [in_i] 63 [in_i] NAVEEN ([facility]) Body weight 1986.08 [oz_av] 1986.08 [oz_av] ATH BRISEIDA ([facility]) Body mass index (BMI) [Ratio] 22.07 kg/m2 22.07 kg/m2 NAVEEN ([facility]) Body height 63 [in_i] 63 [in_i] NAVEEN ([facility]) Body weight 1986.08 [oz_av] 1986.08 [oz_av] ATH BRISEIDA ([facility]) Body mass index (BMI) [Ratio] 22.07 kg/m2 22.07 kg/m2 NAVEEN ([facility]) Body height 63 [in_i] 63 [in_i] NAVEEN ([facility]) Body weight 1986.08 [oz_av] 1986.08 [oz_av] ATH BRISEIDA ([facility]) Body mass index (BMI) [Ratio] 22.07 kg/m2 22.07 kg/m2 NAVEEN ([facility]) Body height 63 [in_i] 63 [in_i] NAVEEN ([facility]) Body weight 1986.08 [oz_av] 1986.08 [oz_av] ATH BRISEIDA ([facility]) Body height 63 [in_i] 63 [in_i] NAVEEN ([facility]) Body weight 1986.08 [oz_av] 1986.08 [oz_av] ATH BRISEIDA ([facility]) Body mass index (BMI) [Ratio] 22.07 kg/m2 22.07 kg/m2 NAVEEN ([facility]) Body height 63 [in_i] 63 [in_i] NAVEEN ([facility]) Body weight 1986.08 [oz_av] 1986.08 [oz_av] ATH BRISEIDA ([facility]) Body height 63 [in_i] 63 [in_i] NAVEEN ([facility]) Body weight 1986.08 [oz_av] 1986.08 [oz_av] ATH BRISEIDA ([facility]) Body height 63 [in_i] 63 [in_i] NAVEEN ([facility]) Body weight 1986.08 [oz_av] 1986.08 [oz_av] ATH BRISEIDA ([facility]) Body height 63 [in_i] 63 [in_i] NAVEEN ([facility]) Body weight 1986.08 [oz_av] 1986.08 [oz_av] ATH BRISEIDA ([facility]) Body height 63 [in_i] 63 [in_i] NAVEEN ([facility]) Body weight 1986.08 [oz_av] 1986.08 [oz_av] ATH BRISEIDA ([facility]) Body height 63 [in_i] 63 [in_i] NAVEEN ([facility]) Body weight 1986.08 [oz_av] 1986.08 [oz_av] ATH BRISEIDA ([facility]) Body height 63 [in_i] 63 [in_i] NAVEEN ([facility]) Body weight 1986.08 [oz_av] 1986.08 [oz_av] ATH BRISEIDA ([facility]) Body height 63 [in_i] 63 [in_i] NAVEEN ([facility]) Body weight 1986.08 [oz_av] 1986.08 [oz_av] ATH BRISEIDA ([facility]) Body height 63 [in_i] 63 [in_i] NAVEEN ([facility]) Body weight 1986.08 [oz_av] 1986.08 [oz_av] ATH BRISEIDA ([facility]) Body height 63 [in_i] 63 [in_i] NAVEEN ([facility]) Body weight 1986.08 [oz_av] 1986.08 [oz_av] ATH BRISEIDA ([facility]) Body height 63 [in_i] 63 [in_i] NAVEEN ([facility]) Body weight 1986.08 [oz_av] 1986.08 [oz_av] ATH BRISEIDA ([facility]) Body height 63 [in_i] 63 [in_i] NAVEEN ([facility]) Body weight 1986.08 [oz_av] 1986.08 [oz_av] ATH BRISEIDA ([facility]) Body height 63 [in_i] 63 [in_i] NAVEEN ([facility]) Body weight 1986.08 [oz_av] 1986.08 [oz_av] ATH BRISEIDA ([facility]) Body height 63 [in_i] 63 [in_i] NAVEEN ([facility]) Body weight 1926.08 [oz_av] 1926.08 [oz_av] ATH BRISEIDA ([facility]) Body weight 1926.08 [oz_av] 1926.08 [oz_av] ATH BRISEIDA ([facility]) Body weight 1926.08 [oz_av] 1926.08 [oz_av] ATH BRISEIDA ([facility]) Body weight 1926.08 [oz_av] 1926.08 [oz_av] ATH BRISEIDA ([facility]) Body weight 1926.08 [oz_av] 1926.08 [oz_av] ATH BRISEIDA ([facility]) Body weight 1926.08 [oz_av] 1926.08 [oz_av] ATH BRISEIDA ([facility]) Body weight 1926.08 [oz_av] 1926.08 [oz_av] ATH BRISEIDA ([facility]) Body weight 1926.08 [oz_av] 1926.08 [oz_av] ATH BRISEIDA ([facility]) Body weight 1926.08 [oz_av] 1926.08 [oz_av] ATH BRISEIDA ([facility]) Body weight 1926.08 [oz_av] 1926.08 [oz_av] ATH BRISEIDA ([facility]) Body weight 1926.08 [oz_av] 1926.08 [oz_av] ATH BRISEIDA ([facility]) Body weight 1926.08 [oz_av] 1926.08 [oz_av] ATH BRISEIDA ([facility]) Body weight 1926.08 [oz_av] 1926.08 [oz_av] ATH BRISEIDA ([facility]) Body weight 1926.08 [oz_av] 1926.08 [oz_av] ATH BRISEIDA ([facility]) Body weight 1926.08 [oz_av] 1926.08 [oz_av] ATH BRSIEIDA ([facility]) Body weight 1926.08 [oz_av] 1926.08 [oz_av] ATH BRISEIDA ([facility]) Body weight 1926.08 [oz_av] 1926.08 [oz_av] ATH BRISEIDA ([facility]) Body weight 1926.08 [oz_av] 1926.08 [oz_av] ATH BRISEIDA ([facility]) Body weight 1926.08 [oz_av] 1926.08 [oz_av] ATH BRISEIDA ([facility]) Body weight 1926.08 [oz_av] 1926.08 [oz_av] ATH BRISEIDA ([facility]) Body weight 1926.08 [oz_av] 1926.08 [oz_av] ATH BRISEIDA ([facility]) Body weight 1926.08 [oz_av] 1926.08 [oz_av] ATH BRISEIDA ([facility]) Body weight 1926.08 [oz_av] 1926.08 [oz_av] ATH BRISEIDA ([facility]) Body weight 1926.08 [oz_av] 1926.08 [oz_av] ATH BRISEIDA ([facility]) Body weight 1888 [oz_av] 1888 [oz_av] NAVEEN ([facility]) Systolic blood pressure 119 mm[Hg] 119 mm[Hg] A [facility] ([facility]) Body mass index (BMI) [Ratio] 20.98 kg/m2 20.98 kg/m2 NAVEEN ([facility]) Body height 63 [in_i] 63 [in_i] NAVEEN ([facility]) Diastolic blood pressure 76 mm[Hg] 76 mm[Hg] NAVEEN ([facility]) Body weight 1888 [oz_av] 1888 [oz_av] NAVEEN ([facility]) Systolic blood pressure 119 mm[Hg] 119 mm[Hg] [facility] Body mass index (BMI) [Ratio] 20.98 kg/m2 20.98 kg/m2 NAVEEN ([facility]) Body height 63 [in_i] 63 [in_i] NAVEEN ([facility]) Diastolic blood pressure 76 mm[Hg] 76 mm[Hg] NAVEEN ([facility]) Body weight 1888 [oz_av] 1888 [oz_av] NAVEEN ([facility]) Systolic blood pressure 119 mm[Hg] 119 mm[Hg] A THEN ([facility]) Body mass index (BMI) [Ratio] 20.98 kg/m2 20.98 kg/m2 NAVEEN ([facility]) Body height 63 [in_i] 63 [in_i] NAVEEN ([facility]) Diastolic blood pressure 76 mm[Hg] 76 mm[Hg] NAVEEN ([facility]) Body weight 1888 [oz_av] 1888 [oz_av] NAVEEN ([facility]) Systolic blood pressure 119 mm[Hg] 119 mm[Hg] A THEN ([facility]) Body mass index (BMI) [Ratio] 20.98 kg/m2 20.98 kg/m2 NAVEEN ([facility]) Body height 63 [in_i] 63 [in_i] NAVEEN ([facility]) Diastolic blood pressure 76 mm[Hg] 76 mm[Hg] NAVEEN ([facility]) Body weight 1888 [oz_av] 1888 [oz_av] NAVEEN ([facility]) Systolic blood pressure 119 mm[Hg] 119 mm[Hg] A THEN ([facility]) Body mass index (BMI) [Ratio] 20.98 kg/m2 20.98 kg/m2 NAVEEN ([facility]) Body height 63 [in_i] 63 [in_i] NAVEEN ([facility]) Diastolic blood pressure 76 mm[Hg] 76 mm[Hg] NAVEEN ([facility]) Body weight 1888 [oz_av] 1888 [oz_av] NAVEEN ([facility]) Systolic blood pressure 119 mm[Hg] 119 mm[Hg] A THENA ([facility]) Body mass index (BMI) [Ratio] 20.98 kg/m2 20.98 kg/m2 NAVEEN ([facility]) Body height 63 [in_i] 63 [in_i] NAVEEN ([facility]) Diastolic blood pressure 76 mm[Hg] 76 mm[Hg] NAVEEN ([facility]) Body weight 1888 [oz_av] 1888 [oz_av] NAVEEN ([facility]) Systolic blood pressure 119 mm[Hg] 119 mm[Hg] A [facility] ([facility]) Body mass index (BMI) [Ratio] 20.98 kg/m2 20.98 kg/m2 NAVEEN ([facility]) Body height 63 [in_i] 63 [in_i] NAVEEN ([facility]) Diastolic blood pressure 76 mm[Hg] 76 mm[Hg] NAVEEN ([facility]) Body weight 1888 [oz_av] 1888 [oz_av] NAVEEN ([facility]) Systolic blood pressure 119 mm[Hg] 119 mm[Hg] A [facility] ([facility]) Body mass index (BMI) [Ratio] 20.98 kg/m2 20.98 kg/m2 NAVEEN ([facility]) Body height 63 [in_i] 63 [in_i] NAVEEN ([facility]) Diastolic blood pressure 76 mm[Hg] 76 mm[Hg] NAVEEN ([facility]) Body weight 1888 [oz_av] 1888 [oz_av] NAVEEN ([facility]) Systolic blood pressure 119 mm[Hg] 119 mm[Hg] A [facility] ([facility]) Body mass index (BMI) [Ratio] 20.98 kg/m2 20.98 kg/m2 NAVEEN ([facility]) Body height 63 [in_i] 63 [in_i] NAVEEN ([facility]) Diastolic blood pressure 76 mm[Hg] 76 mm[Hg] NAVEEN ([facility]) Diastolic blood pressure 76 mm[Hg] 76 mm[Hg] NAVEEN ([facility]) Body weight 1888 [oz_av] 1888 [oz_av] NAVEEN ([facility]) Systolic blood pressure 119 mm[Hg] 119 mm[Hg] A [facility] ([facility]) Body mass index (BMI) [Ratio] 20.98 kg/m2 20.98 kg/m2 NAVEEN ([facility]) Body height 63 [in_i] 63 [in_i] NAVEEN ([facility]) Diastolic blood pressure 76 mm[Hg] 76 mm[Hg] NAVEEN ([facility]) Body weight 1888 [oz_av] 1888 [oz_av] NAVEEN ([facility]) Systolic blood pressure 119 mm[Hg] 119 mm[Hg] [facility] Body height 63 [in_i] 63 [in_i] NAVEEN ([facility]) Diastolic blood pressure 76 mm[Hg] 76 mm[Hg] NAVEEN ([facility]) Body weight 1888 [oz_av] 1888 [oz_av] NAVEEN ([facility]) Systolic blood pressure 119 mm[Hg] 119 mm[Hg] [facility] Body height 63 [in_i] 63 [in_i] NAVEEN ([facility]) Diastolic blood pressure 76 mm[Hg] 76 mm[Hg] NAVEEN ([facility]) Body weight 1888 [oz_av] 1888 [oz_av] NAVEEN ([facility]) Systolic blood pressure 119 mm[Hg] 119 mm[Hg] A THENA ([facility]) Body height 63 [in_i] 63 [in_i] NAVEEN ([facility]) Body weight 1888 [oz_av] 1888 [oz_av] NAVEEN ([facility]) Systolic blood pressure 119 mm[Hg] 119 mm[Hg] [facility] Body height 63 [in_i] 63 [in_i] NAVEEN ([facility]) Diastolic blood pressure 76 mm[Hg] 76 mm[Hg] NAVEEN ([facility]) Body weight 1888 [oz_av] 1888 [oz_av] NAVEEN ([facility]) Systolic blood pressure 119 mm[Hg] 119 mm[Hg] A THENA ([facility]) Body height 63 [in_i] 63 [in_i] NAVEEN ([facility]) Diastolic blood pressure 76 mm[Hg] 76 mm[Hg] NAVEEN ([facility]) Body weight 1888 [oz_av] 1888 [oz_av] NAVEEN ([facility]) Systolic blood pressure 119 mm[Hg] 119 mm[Hg] [facility] Body height 63 [in_i] 63 [in_i] NAVEEN ([facility]) Diastolic blood pressure 76 mm[Hg] 76 mm[Hg] NAVEEN ([facility]) Body weight 1888 [oz_av] 1888 [oz_av] NAVEEN ([facility]) Systolic blood pressure 119 mm[Hg] 119 mm[Hg] A THENA ([facility]) Body height 63 [in_i] 63 [in_i] NAVEEN ([facility]) Diastolic blood pressure 76 mm[Hg] 76 mm[Hg] NAVEEN ([facility]) Body weight 1888 [oz_av] 1888 [oz_av] NAVEEN ([facility]) Systolic blood pressure 119 mm[Hg] 119 mm[Hg] [facility] Body height 63 [in_i] 63 [in_i] NAVEEN ([facility]) Diastolic blood pressure 76 mm[Hg] 76 mm[Hg] NAVEEN ([facility]) Body weight 1888 [oz_av] 1888 [oz_av] NAVEEN ([facility]) Systolic blood pressure 119 mm[Hg] 119 mm[Hg] A THENA ([facility]) Body height 63 [in_i] 63 [in_i] NAVEEN ([facility]) Diastolic blood pressure 76 mm[Hg] 76 mm[Hg] NAVEEN ([facility]) Body weight 1888 [oz_av] 1888 [oz_av] NAVEEN ([facility]) Systolic blood pressure 119 mm[Hg] 119 mm[Hg] A THENA ([facility]) Body height 63 [in_i] 63 [in_i] NAVEEN ([facility]) Diastolic blood pressure 76 mm[Hg] 76 mm[Hg] NAVEEN ([facility]) Body weight 1888 [oz_av] 1888 [oz_av] NAVEEN ([facility]) Systolic blood pressure 119 mm[Hg] 119 mm[Hg] A THENA ([facility]) Body height 63 [in_i] 63 [in_i] NAVEEN ([facility]) Diastolic blood pressure 76 mm[Hg] 76 mm[Hg] NAVEEN ([facility]) Body weight 1888 [oz_av] 1888 [oz_av] NVAEEN ([facility]) Systolic blood pressure 119 mm[Hg] 119 mm[Hg] [facility] Body height 63 [in_i] 63 [in_i] NAVEEN ([facility]) Diastolic blood pressure 76 mm[Hg] 76 mm[Hg] NAVEEN ([facility]) Body weight 1888 [oz_av] 1888 [oz_av] NAVEEN ([facility]) Systolic blood pressure 119 mm[Hg] 119 mm[Hg] [facility] Body height 63 [in_i] 63 [in_i] NAVEEN ([facility]) Diastolic blood pressure 76 mm[Hg] 76 mm[Hg] NAVEEN ([facility]) Body weight 1888 [oz_av] 1888 [oz_av] NAVEEN ([facility]) Systolic blood pressure 119 mm[Hg] 119 mm[Hg] [facility] Body height 63 [in_i] 63 [in_i] NAVEEN ([facility]) Diastolic blood pressure 76 mm[Hg] 76 mm[Hg] NAVEEN ([facility]) Body weight 1824 [oz_av] 1824 [oz_av] NAVEEN ([facility]) Body mass index (BMI) [Ratio] 20.27 kg/m2 20.27 kg/m2 NAVEEN ([facility]) Body height 63 [in_i] 63 [in_i] NAVEEN ([facility]) Body weight 1824 [oz_av] 1824 [oz_av] NAVEEN ([facility]) Body mass index (BMI) [Ratio] 20.27 kg/m2 20.27 kg/m2 NAVEEN ([facility]) Body height 63 [in_i] 63 [in_i] NAVEEN ([facility]) Body weight 1824 [oz_av] 1824 [oz_av] NAVEEN ([facility]) Body mass index (BMI) [Ratio] 20.27 kg/m2 20.27 kg/m2 NAVEEN ([facility]) Body height 63 [in_i] 63 [in_i] NAVEEN ([facility]) Body weight 1824 [oz_av] 1824 [oz_av] NAVEEN ([facility]) Body mass index (BMI) [Ratio] 20.27 kg/m2 20.27 kg/m2 NAVEEN ([facility]) Body height 63 [in_i] 63 [in_i] NAVEEN ([facility]) Body weight 1824 [oz_av] 1824 [oz_av] NAVEEN ([facility]) Body mass index (BMI) [Ratio] 20.27 kg/m2 20.27 kg/m2 NAVEEN ([facility]) Body height 63 [in_i] 63 [in_i] NAVEEN ([facility]) Body weight 1824 [oz_av] 1824 [oz_av] NAVEEN ([facility]) Body mass index (BMI) [Ratio] 20.27 kg/m2 20.27 kg/m2 NAVEEN ([facility]) Body height 63 [in_i] 63 [in_i] NAVEEN ([facility]) Body weight 1824 [oz_av] 1824 [oz_av] NAVEEN ([facility]) Body mass index (BMI) [Ratio] 20.27 kg/m2 20.27 kg/m2 NAVEEN ([facility]) Body height 63 [in_i] 63 [in_i] NAVEEN ([facility]) Body weight 1824 [oz_av] 1824 [oz_av] NAVEEN ([facility]) Body mass index (BMI) [Ratio] 20.27 kg/m2 20.27 kg/m2 NAVEEN ([facility]) Body height 63 [in_i] 63 [in_i] NAVEEN ([facility]) Body weight 1824 [oz_av] 1824 [oz_av] NAVEEN ([facility]) Body mass index (BMI) [Ratio] 20.27 kg/m2 20.27 kg/m2 NAVEEN ([facility]) Body height 63 [in_i] 63 [in_i] NAVEEN ([facility]) Body weight 1824 [oz_av] 1824 [oz_av] NAVEEN ([facility]) Body mass index (BMI) [Ratio] 20.27 kg/m2 20.27 kg/m2 NAVEEN ([facility]) Body height 63 [in_i] 63 [in_i] NAVEEN ([facility]) Body weight 1824 [oz_av] 1824 [oz_av] NAVEEN ([facility]) Body height 63 [in_i] 63 [in_i] NAVEEN ([facility]) Body weight 1824 [oz_av] 1824 [oz_av] NAVEEN ([facility]) Body height 63 [in_i] 63 [in_i] NAVEEN ([facility]) Body weight 1824 [oz_av] 1824 [oz_av] NAVEEN ([facility]) Body height 63 [in_i] 63 [in_i] NAVEEN ([facility]) Body weight 1824 [oz_av] 1824 [oz_av] NAVEEN ([facility]) Body height 63 [in_i] 63 [in_i] NAVEEN ([facility]) Body weight 1824 [oz_av] 1824 [oz_av] NAVEEN ([facility]) Body height 63 [in_i] 63 [in_i] NAVEEN ([facility]) Body weight 1824 [oz_av] 1824 [oz_av] NAVEEN ([facility]) Body height 63 [in_i] 63 [in_i] NAVEEN ([facility]) Body weight 1824 [oz_av] 1824 [oz_av] NAVEEN ([facility]) Body height 63 [in_i] 63 [in_i] NAVEEN ([facility]) Body weight 1824 [oz_av] 1824 [oz_av] NAVEEN ([facility]) Body height 63 [in_i] 63 [in_i] NAVEEN ([facility]) Body weight 1824 [oz_av] 1824 [oz_av] NAVEEN ([facility]) Body height 63 [in_i] 63 [in_i] NAVEEN ([facility]) Body weight 1824 [oz_av] 1824 [oz_av] NAVEEN ([facility]) Body height 63 [in_i] 63 [in_i] NAVEEN ([facility]) Body weight 1824 [oz_av] 1824 [oz_av] NAVEEN ([facility]) Body height 63 [in_i] 63 [in_i] NAVEEN ([facility]) Body weight 1824 [oz_av] 1824 [oz_av] NAVEEN ([facility]) Body height 63 [in_i] 63 [in_i] NAVEEN ([facility]) Body weight 1824 [oz_av] 1824 [oz_av] NAVEEN ([facility]) Body height 63 [in_i] 63 [in_i] NAVEEN ([facility]) Body weight 1824 [oz_av] 1824 [oz_av] NAVEEN ([facility]) Body height 63 [in_i] 63 [in_i] NAVEEN ([facility]) Patient Treatment Plan of Care Planned Activity Planned Date Details Description Data Source (s) Trazodone Hydrochloride 150 MG Oral Tablet 05/15/2020 12:00:[address] [facility] ([facility]) Trazodone Hydrochloride 150 MG Oral Tablet 05/15/2020 12:00:[address] [facility] ([facility]) Trazodone Hydrochloride 150 MG Oral Tablet 05/15/2020 12:00:[address] [facility] ([facility]) Trazodone Hydrochloride 50 MG Oral Tablet NAVEEN ([facility]) aripiprazole 5 MG Oral Tablet NAVEEN ([facility]) aripiprazole 15 MG Oral Tablet NAVEEN ([facility]) aripiprazole 10 MG Oral Tablet NAVEEN ([facility]) Trazodone Hydrochloride 50 MG Oral Tablet NAVEEN ([facility]) Sertraline 50 MG Oral Tablet NAVEEN ([facility]) aripiprazole 5 MG Oral Tablet NAVEEN ([facility]) aripiprazole 15 MG Oral Tablet NAVEEN ([facility]) aripiprazole 10 MG Oral Tablet NAVEEN ([facility]) Trazodone Hydrochloride 50 MG Oral Tablet NAVEEN ([facility]) Sertraline 50 MG Oral Tablet NAVEEN ([facility]) aripiprazole 5 MG Oral Tablet NAVEEN ([facility]) aripiprazole 15 MG Oral Tablet NAVEEN ([facility]) aripiprazole 10 MG Oral Tablet ANVEEN ([facility]) Trazodone Hydrochloride 50 MG Oral Tablet NAVEEN ([facility]) Sertraline 50 MG Oral Tablet NAVEEN ([facility]) aripiprazole 5 MG Oral Tablet NAVEEN ([facility]) aripiprazole 15 MG Oral Tablet NAVEEN ([facility]) aripiprazole 10 MG Oral Tablet NAVEEN ([facility]) Trazodone Hydrochloride 50 MG Oral Tablet NAVEEN ([facility]) Sertraline 50 MG Oral Tablet NAVEEN ([facility]) aripiprazole 5 MG Oral Tablet NAVEEN ([facility]) aripiprazole 15 MG Oral Tablet NAVEEN ([facility]) aripiprazole 10 MG Oral Tablet NAVEEN ([facility]) Trazodone Hydrochloride 50 MG Oral Tablet NAVEEN ([facility]) Sertraline 50 MG Oral Tablet NAVEEN ([facility]) aripiprazole 5 MG Oral Tablet NAVEEN ([facility]) aripiprazole 15 MG Oral Tablet NAVEEN ([facility]) aripiprazole 10 MG Oral Tablet NAVEEN ([facility]) Trazodone Hydrochloride 50 MG Oral Tablet NAVEEN ([facility]) Sertraline 50 MG Oral Tablet NAVEEN ([facility]) aripiprazole 5 MG Oral Tablet NAVE[facility] ([facility]) aripiprazole 15 MG Oral Tablet NAVEEN ([facility]) aripiprazole 10 MG Oral Tablet NAVEEN ([facility]) Trazodone Hydrochloride 50 MG Oral Tablet NAVEEN ([facility]) Sertraline 50 MG Oral Tablet NAVEEN ([facility]) aripiprazole 5 MG Oral Tablet NAVEEN ([facility]) aripiprazole 15 MG Oral Tablet NAVEEN ([facility]) aripiprazole 10 MG Oral Tablet NAVEEN ([facility]) Trazodone Hydrochloride 50 MG Oral Tablet N[facility] ([facility]) Sertraline 50 MG Oral Tablet NAVEEN ([facility]) aripiprazole 5 MG Oral Tablet NAVEEN ([facility]) aripiprazole 15 MG Oral Tablet NAVEEN ([facility]) aripiprazole 10 MG Oral Tablet NAVEEN ([facility]) Trazodone Hydrochloride 50 MG Oral Tablet NAVEEN ([facility]) Sertraline 50 MG Oral Tablet NAVEEN ([facility]) aripiprazole 5 MG Oral Tablet NAVEEN ([facility]) aripiprazole 15 MG Oral Tablet NAVEEN ([facility]) aripiprazole 10 MG Oral Tablet NAVEEN ([facility]) Trazodone Hydrochloride 50 MG Oral Tablet NAVE[facility] ([facility]) Sertraline 50 MG Oral Tablet NAVEEN ([facility]) aripiprazole 5 MG Oral Tablet NAVEEN ([facility]) aripiprazole 15 MG Oral Tablet NAVEEN ([facility]) aripiprazole 10 MG Oral Tablet NAVEEN ([facility]) Trazodone Hydrochloride 50 MG Oral Tablet NAVEEN ([facility]) Sertraline 50 MG Oral Tablet NAVEEN ([facility]) Sertraline 100 MG Oral Tablet NAVEEN ([facility]) gabapentin 600 MG Oral Tablet NAVEEN ([facility]) aripiprazole 5 MG Oral Tablet NAVEEN ([facility]) aripiprazole 10 MG Oral Tablet NAVEEN ([facility]) Sertraline 50 MG Oral Tablet NAVEEN ([facility]) aripiprazole 5 MG Oral Tablet NAVEEN ([facility]) aripiprazole 10 MG Oral Tablet NAVEEN ([facility]) Sertraline 50 MG Oral Tablet NAVEEN ([facility]) aripiprazole 5 MG Oral Tablet NAVEEN ([facility]) aripiprazole 10 MG Oral Tablet NAVEEN ([facility]) Sertraline 50 MG Oral Tablet NAVEEN ([facility]) aripiprazole 5 MG Oral Tablet NAVEEN ([facility]) aripiprazole 10 MG Oral Tablet NAVEEN ([facility]) aripiprazole 10 MG Oral Tablet NAVEEN ([facility]) Sertraline 50 MG Oral Tablet NAVEEN ([facility]) aripiprazole 5 MG Oral Tablet NAVEEN ([facility]) aripiprazole 10 MG Oral Tablet NAVEEN ([facility]) Sertraline 50 MG Oral Tablet NAVEEN ([facility]) aripiprazole 5 MG Oral Tablet NAVEEN ([facility]) aripiprazole 10 MG Oral Tablet NAVEEN ([facility]) Sertraline 50 MG Oral Tablet NAVEEN ([facility]) aripiprazole 5 MG Oral Tablet NAVEEN ([facility]) aripiprazole 10 MG Oral Tablet NAVEEN ([facility]) Sertraline 50 MG Oral Tablet NAVEEN ([facility]) aripiprazole 5 MG Oral Tablet NAVEEN ([facility]) aripiprazole 10 MG Oral Tablet NAVEEN ([facility]) Sertraline 50 MG Oral Tablet NAVEEN ([facility]) aripiprazole 5 MG Oral Tablet NAVEEN ([facility]) aripiprazole 10 MG Oral Tablet NAVEEN ([facility]) Sertraline 50 MG Oral Tablet NAVEEN ([facility]) Sertraline 50 MG Oral Tablet NAVEEN ([facility]) aripiprazole 5 MG Oral Tablet NAVEEN ([facility])
[2020-06-07 16:39] LABS: HEMATOCRIT 39.6 % (36.0-47.0); HEMOGLOBIN 12.9 g/dl (12.0-15.5); MEAN CORPUSCULAR HEMOGLOBIN 30.9 pg (27.0-33.0); MEAN CORPUSCULAR HGB CONC 32.6 g/dl (32.0-36.5); MEAN CORPUSCULAR VOLUME 94.7 fl (80.0-96.0); PLATELET COUNT, AUTOMATED 274 10^3/uL (150-450); RED BLOOD COUNT 4.18 10^6/uL (4.00-5.40); WHITE BLOOD COUNT 6.7 10^3/uL (4.0-10.0)
[2020-06-07 17:04] LABS: AMPHETAMINES LEVEL URINE NEGATIVE (NEGATIVE); BARBITURATES URINE NEGATIVE (NEGATIVE); BENZODIAZEPINES URINE NEGATIVE (NEGATIVE); CANNABINOIDS URINE NEGATIVE (NEGATIVE); COCAINE METABOLITE URINE NEGATIVE (NEGATIVE); METHADONE URINE NEGATIVE (NEGATIVE); OPIATES URINE NEGATIVE (NEGATIVE); PHENCYCLIDINE URINE NEGATIVE (NEGATIVE)
[2020-06-07 17:05] LABS: HCG, SERUM QUALITATIVE NEGATIVE (NEGATIVE)
[2020-06-07 17:21] LABS: ACETAMINOPHEN LEVEL < 2.0 UG/ML (10.0-30.0); ALBUMIN 4.1 GM/DL (3.2-5.2); ALT/SGPT 20 U/L (12-78); BILIRUBIN,DIRECT 0.1 MG/DL (0.0-0.2); BILIRUBIN,TOTAL 0.4 MG/DL (0.2-1.0); BLOOD UREA NITROGEN 10 MG/DL (7-18); CALCIUM LEVEL 8.8 MG/DL (8.5-10.1); CARBON DIOXIDE LEVEL 22 MEQ/L (21-32); CHLORIDE LEVEL 111 MEQ/L (98-107); ETHYL ALCOHOL (ETHANOL) < 0.003 % (0.000-0.010); GLOMERULAR FILTRATION RATE > 60.0 (>60); GLUCOSE, FASTING 73 MG/DL (70-100); POTASSIUM SERUM 4.3 MEQ/L (3.5-5.1); SALICYLATE LEVEL < 1.7 MG/DL (5.0-30.0); SODIUM LEVEL 140 MEQ/L (136-145); TOTAL PROTEIN 7.6 GM/DL (6.4-8.2)
--- OUTSIDE RECORDS SUMMARY | 2020-06-07 18:29 | CCD ---
Author Author [facility] Organization [facility] Address Unknown Phone Unavailable Care Team Providers Care Vending Machine Attendant Name Role Phone JohnsonoOksanaby PA Unavailable Unavailable [...] M Deb PA Unavailable Unavailable Tatyana Salas SHEET METAL INSTALLER SHEET METAL INSTALLER Unavailable Unavailable Caridad GOULD MD Unavailable Unavailable [...] Caridad GOULD MD Unavailable Unavailable David Salas SHEET METAL INSTALLER-BC Unavailable Unavailable David Salas SHEET METAL INSTALLER-BC Unavailable Unavailable Salas, F Tatyana SHEET METAL INSTALLER-BC Unavailable Unavailable Salas, F Tatyana SHEET METAL INSTALLER-BC Unavailable Unavailable Salas, F Tatyana SHEET METAL INSTALLER-BC Unavailable Unavailable Salas, F Tatyana SHEET METAL INSTALLER-BC Unavailable Unavailable Salas, F Tatyana SHEET METAL INSTALLER-BC Unavailable Unavailable Salas, F Tatyana SHEET METAL INSTALLER-BC Unavailable Unavailable Salas, F Tatyana SHEET METAL INSTALLER-BC Unavailable Unavailable Salas, F Tatyana SHEET METAL INSTALLER-BC Unavailable Unavailable Salas, F Tatyana SHEET METAL INSTALLER-BC Unavailable Unavailable Salas, F Tatyana SHEET METAL INSTALLER-BC Unavailable Unavailable Salas, F Tatyana SHEET METAL INSTALLER-BC Unavailable Unavailable Salas, F Tatyana SHEET METAL INSTALLER-BC Unavailable Unavailable Salas, F Tatyana SHEET METAL INSTALLER-BC Unavailable Unavailable Salas, F Tatyana SHEET METAL INSTALLER-BC Unavailable Unavailable Salas, F Tatyana SHEET METAL INSTALLER-BC Unavailable Unavailable Salas, F Tatyana SHEET METAL INSTALLER-BC Unavailable Unavailable Salas, F Tatyana SHEET METAL INSTALLER-BC Unavailable Unavailable Salas, F Tatyana SHEET METAL INSTALLER-BC Unavailable Unavailable Salas, F Tatyana SHEET METAL INSTALLER-BC Unavailable Unavailable Salas, F Tatyana SHEET METAL INSTALLER-BC Unavailable Unavailable [facility], SSCORDO SCORDO PA DEB Unavailable Unavaila ble Sandra Conrade Unavailable [phone] Scordo, M Deb PA Unavailable Unavailable Scordo, [...] M Deb PA Unavailable Unavailable Scordo, M Edb PA Unavailable Unavailable Scordo, M Deb PA [...] is protected by Article 27-F of the [facility] Public Health law. If you continue you may have access to information: Regarding HIV / AIDS; Provided by facilities licensed or operated by the [facility] Office of Mental Health; or Provided by the [facility] Office for People With Developmental Disabilities. If such information is present, then the following [facility] mandated warning applies: This information has been [...] law may result in a fine or fci sentence or both. A general authorization for the release of medical or other information is NOT sufficient authorization for further disc losure. Allergies and Adverse Reactions Type Description Substance Reaction Status Data Source(s ) Allergy to substance Allergy to substance Allergy to substance [facility]UD[facility] ([facility]) Allergy to substance Allergy to substance Allergy to substance [facility] ([facility]) Allergy to substance Allergy to substance Allergy to substance EMBUDO ([facility]) Family History Family Member Name Family Member Gender Family Member Status Date o f Status Description Data Source(s) Unknown Male Problem MEDENT ([facility]) Unknown Unknown Problem MEDENT ([facility], ) Encounters Encounter Providers Location Date Indications Data Source(s ) Karina Conrad LCSW-R: [address], [place] [address], Ph. Attender: Karina Conrad [facility] Medical 06/05/2020 12:00:00 AM EST NAVEEN ([facility]) Karina Conrad LCSW-R: [address], [place] [address], Ph. Attender: Karina Conrad [facility] Medical 06/05/2020 12:00:00 AM EST NAVEEN ([facility]) Karina Conrad, CADMIUM BURNER-R: [address], [place] [address], Ph. Attender: Karina Conrad [facility] Medical 06/05/2020 12:00:00 AM EST NAVEEN ([facility]) Karina Conrad, CADMIUM BURNER-R: [address], [place] [address], Ph. Attender: Karina Conrad [facility] Medical 05/29/2020 12:00:00 AM EST NAVEEN ([facility]) Karina Conrad, CADMIUM BURNER-R: [address], [place] [address], Ph. Attender: Karina Conrad [facility] Medical 05/29/2020 12:00:00 AM EST NAVEEN ([facility]) Karina Conrad, CADMIUM BURNER-R: [address], [place] [address], Ph. Attender: Karina Conrad [facility] Medical 05/29/2020 12:00:00 AM EST NAVEEN ([facility]) Karina Conrad, CADMIUM BURNER-R: [address], [place] [address], Ph. Attender: Karina Conrad [facility] Medical 05/29/2020 12:00:00 AM EST NAVEEN ([facility]) Karina Conrad, CADMIUM BURNER-R: [address], [place] [address], Ph. Attender: Karina Conrad [facility] Medical 05/29/2020 12:00:00 AM EST NAVEEN ([facility]) Karina Conrad, CADMIUM BURNER-R: [address], [place] [address], Ph. Attender: Karina Conrad [facility] Medical 05/29/2020 12:00:00 AM EST NAVEEN ([facility]) Karina Conrad, CADMIUM BURNER-R: [address], [place] [address], Ph. Attender: Karina Conrad [facility] Medical 05/29/2020 12:00:00 AM EST NAVEEN ([facility]) Karina Conrad, CADMIUM BURNER-R: [address], [place] [address], Ph. Attender: Karina Conrad [facility] Medical 05/22/2020 12:00:00 AM EST NAVEEN ([facility]) Karina Conrad, CADMIUM BURNER-R: [address], [place] [address], Ph. Attender: Karina Conrad [facility] Medical 05/22/2020 12:00:00 AM EST NAVEEN ([facility]) Karina Conrad, CADMIUM BURNER-R: [address], [place] [address], Ph. Attender: Karina Conrad [facility] Medical 05/22/2020 12:00:00 AM EST NAVEEN ([facility]) Karina Conrad, CADMIUM BURNER-R: [address], [place] [address], Ph. Attender: Karina Conrad [facility] Medical 05/22/2020 12:00:00 AM EST NAVEEN ([facility]) Karina Conrad, CADMIUM BURNER-R: [address], [place] [address], Ph. Attender: Karina Conrad [facility] Medical 05/22/2020 12:00:00 AM EST NAVEEN ([facility]) Karina Conrad, CADMIUM BURNER-R: [address], [place] [address], Ph. Attender: Karina Conrad [facility] Medical 05/22/2020 12:00:00 AM EST NAVEEN ([facility]) Karina Conrad, CADMIUM BURNER-R: [address], [place] [address], Ph. Attender: Karina Conrad [facility] Medical 05/22/2020 12:00:00 AM EST NAVEEN ([facility]) Karina Conrad, CADMIUM BURNER-R: [address], [place] [address], Ph. Attender: Karina Conrad [facility] Medical 05/22/2020 12:00:00 AM EST NAVEEN ([facility]) Karina Conrad, CADMIUM BURNER-R: [address], [place] [address], Ph. Attender: Karina Conrad [facility] Medical 05/16/2020 12:00:00 AM EST NAVEEN ([facility]) Karina Conrad, CADMIUM BURNER-R: [address], [place] [address], Ph. Attender: Karina Conrad [facility] Medical 05/16/2020 12:00:00 AM EST NAVEEN ([facility]) Karina Conrad, CADMIUM BURNER-R: [address], [place] [address], Ph. Attender: Karina Conrad [facility] Medical 05/16/2020 12:00:00 AM EST NAVEEN ([facility]) Karina Conrad, CADMIUM BURNER-R: [address], [place] [address], Ph. Attender: Karina Conrad [facility] Medical 05/16/2020 12:00:00 AM EST NAVEEN ([facility]) Karina Conrad, CADMIUM BURNER-R: [address], [place] [address], Ph. Attender: Karina Conrad [facility] Medical 05/16/2020 12:00:00 AM EST NAVEEN ([facility]) Karina Conrad, CADMIUM BURNER-R: [address], [place] [address], Ph. Attender: Karina Conrad [facility] Medical 05/16/2020 12:00:00 AM EST NAVEEN ([facility]) Karina Conrad, CADMIUM BURNER-R: [address], [place] [address], Ph. Attender: Karina Conrad [facility] Medical 05/16/2020 12:00:00 AM EST NAVEEN ([facility]) Karina Conrad, CADMIUM BURNER-R: [address], [place] [address], Ph. Attender: Karina Conrad [facility] Medical 05/16/2020 12:00:00 AM EST NAVEEN ([facility]) Karina Conrad, CADMIUM BURNER-R: [address], [place] [address], Ph. Attender: Karina Conrad [facility] Medical 05/16/2020 12:00:00 AM EST NAVEEN ([facility]) Karina Conrad, CADMIUM BURNER-R: [address], [place] [address], Ph. Attender: Karina Conrad [facility] Medical 05/16/2020 12:00:00 AM EST NAVEEN ([facility]) Marley Khan MD: [address] [place] [address], Ph. Attender: Marley Khan MD [facility] Medical 05/15/2020 12:00:00 AM EST NAVEEN ([facility]) Marley Khan MD: [address], [place] [address], Ph. Attender: Marley Khan MD [facility] Medical 05/15/2020 12:00:00 AM EST NAVEEN ([facility]) Marley Khan MD: [address], [place] [address], Ph. Attender: Marley Khan MD [facility] Medical 05/15/2020 12:00:00 AM EST NAVEEN ([facility]) Marley Khan MD: [address], [place] [address], Ph. Attender: Marley Khan MD [facility] Medical 05/15/2020 12:00:00 AM EST NAVEEN ([facility]) Marley Khan MD: [address], [place] [address], Ph. Attender: Marley Khan MD [facility] Medical 05/15/2020 12:00:00 AM EST NAVEEN ([facility]) Marley Khan MD: [address], [place] [address], Ph. Attender: Marley Khan MD [facility] Medical 05/15/2020 12:00:00 AM EST NAVEEN ([facility]) Marley Khan MD: [address], [place] [address], Ph. Attender: Marley Khan MD [facility] Medical 05/15/2020 12:00:00 AM EST NAVEEN ([facility]) Marley Khan MD: [address], [place] [address], Ph. Attender: Marley Khna MD [facility] Medical 05/15/2020 12:00:00 AM EST NAVEEN ([facility]) Marley Khan MD: [address], [place] [address], Ph. Attender: Marley Khan MD [facility] Medical 05/15/2020 12:00:00 AM EST NAVEEN ([facility]) Marley Khan MD: [address], [place] [address], Ph. Attender: Marley Khan MD [facility] Medical 05/15/2020 12:00:00 AM EST NAVEEN ([facility]) Marley Khan MD: [address], [place] [address], Ph. Attender: Marley Khan MD [facility] Medical 05/15/2020 12:00:00 AM EST NAVEEN ([facility]) Marley Khan MD: [address], [place] [address], Ph. Attender: Marley Khan MD [facility] Medical 05/15/2020 12:00:00 AM EST NAVEEN ([facility]) Karina Conrad, CADMIUM BURNER-R: [address], [place] [address], Ph. Attender: Karina Conrad [facility] Medical 05/08/2020 12:00:00 AM EST NAVEEN ([facility]) Karina Conrad, CADMIUM BURNER-R: [address], [place] [address], Ph. Attender: Karina Conrad [facility] Medical 05/08/2020 12:00:00 AM EST NAVEEN ([facility]) Karina Conrad, CADMIUM BURNER-R: [address], [place] [address], Ph. Attender: Karina Conrad [facility] Medical 05/08/2020 12:00:00 AM EST NAVEEN ([facility]) Karina Conrad, CADMIUM BURNER-R: [address], [place] [address], Ph. Attender: Karina Conrad [facility] Medical 05/08/2020 12:00:00 AM EST NAVEEN ([facility]) Karina Conrad, CADMIUM BURNER-R: [address], [place] [address], Ph. Attender: Karina Conrad [facility] Medical 05/08/2020 12:00:00 AM EST NAVEEN ([facility]) Karina Conrad, CADMIUM BURNER-R: [address], [place] [address], Ph. Attender: Karina Conrad [facility] Medical 05/08/2020 12:00:00 AM EST NAVEEN ([facility]) Karina Conrad, CADMIUM BURNER-R: [address], [place] [address], Ph. Attender: Karina Conrad [facility] Medical 05/08/2020 12:00:00 AM EST NAVEEN ([facility]) Karina Conrad, CADMIUM BURNER-R: [address], [place] [address], Ph. Attender: Karina Conrad [facility] Medical 05/08/2020 12:00:00 AM EST NAVEEN ([facility]) Karina Conrad, CADMIUM BURNER-R: [address], [place] [address], Ph. Attender: Karina Conrad [facility] Medical 05/08/2020 12:00:00 AM EST NAVEEN ([facility]) Karina Conrad, CADMIUM BURNER-R: [address], [address], [place] [address], Ph. Attender: Karina Conrad [facility] Medical 05/08/2020 12:00:00 AM EST NAVEEN ([facility]) Karina Conrad, CADMIUM BURNER-R: [address], [place] [address], Ph. Attender: Karina Conrad [facility] Medical 05/08/2020 12:00:00 AM EST NAVEEN ([facility]) Karina Conrad, CADMIUM BURNER-R: [address], [place] [address], Ph. Attender: Karina Conrad [facility] Medical 05/08/2020 12:00:00 AM EST NAVEEN ([facility]) Karina Conrad, CADMIUM BURNER-R: [address], [place] [address], Ph. Attender: Karina Conrad [facility] Medical 05/08/2020 12:00:00 AM EST NAVEEN ([facility]) Karina Conrad, CADMIUM BURNER-R: [address], [place] [address], Ph. Attender: Kraina Conrad [facility] Medical 05/01/2020 12:00:00 AM EST NAVEEN ([facility]) Karina Conrad, CADMIUM BURNER-R: [address], [place] [address], Ph. Attender: Karina Conrad [facility] Medical 05/01/2020 12:00:00 AM EST NAVEEN ([facility]) Karina Conrad, CADMIUM BURNER-R: [address], [place] [address], Ph. Attender: Karina Conrad [facility] Medical 05/01/2020 12:00:00 AM EST NAVEEN ([facility]) Karina Conrad, CADMIUM BURNER-R: [address], [place] [address], Ph. Attender: Karina Conrad [facility] Medical 05/01/2020 12:00:00 AM EST NAVEEN ([facility]) Karina Conrad, CADMIUM BURNER-R: [address], [place] [address], Ph. Attender: Karina Conrad [facility] Medical 05/01/2020 12:00:00 AM EST NAVEEN ([facility]) Karina Conrad, CADMIUM BURNER-R: [address], [place] [address], Ph. Attender: Karina Conrad [facility] Medical 05/01/2020 12:00:00 AM EST NAVEEN ([facility]) Karina Conrad, CADMIUM BURNER-R: [address], [place] [address], Ph. Attender: Karina Conrad [facility] Medical 05/01/2020 12:00:00 AM EST NAVEEN ([facility]) Karina Conrad, CADMIUM BURNER-R: [address], [place] [address], Ph. Attender: Karina Conrad [facility] Medical 05/01/2020 12:00:00 AM EST NAVEEN ([facility]) Karina Conrad, CADMIUM BURNER-R: [address], [place] [address], Ph. Attender: Karina Conrad [facility] Medical 05/01/2020 12:00:00 AM EST NAVEEN ([facility]) Karina Conrad, CADMIUM BURNER-R: [address], [place] [address], Ph. Attender: Karina Conrad [facility] Medical 05/01/2020 12:00:00 AM EST NAVEEN ([facility]) Karina Conrad, CADMIUM BURNER-R: [address], [place] [address], Ph. Attender: Karina Conrad [facility] Medical 05/01/2020 12:00:00 AM EST NAVEEN ([facility]) Karina Conrad, CADMIUM BURNER-R: [address], [place] [address], Ph. Attender: Karina Conrad [facility] Medical 05/01/2020 12:00:00 AM EST NAVEEN ([facility]) Karina Conrad, CADMIUM BURNER-R: [address], [place] [address], Ph. Attender: Karina Conrad [facility] Medical 05/01/2020 12:00:00 AM EST NAVEEN ([facility]) Karina Conrad, CADMIUM BURNER-R: [address], [place] [address], Ph. Attender: Karina Conrad [facility] Medical 04/24/2020 12:00:00 AM EST NAVEEN ([facility]) Karina Conrad, CADMIUM BURNER-R: [address], [place] [address], Ph. Attender: Karina Conrad [facility] Medical 04/24/2020 12:00:00 AM EST NAVEEN ([facility]) Karina Conrad, CADMIUM BURNER-R: [address], [place] [address], Ph. Attender: Karina Conrad [facility] Medical 04/24/2020 12:00:00 AM EST NAVEEN ([facility]) Karina Conrad, CADMIUM BURNER-R: [address], [place] [address], Ph. Attender: Karina Conrad [facility] Medical 04/24/2020 12:00:00 AM EST NAVEEN ([facility]) Karina Conrad, CADMIUM BURNER-R: [address], [place] [address], Ph. Attender: Karina Conrad [facility] Medical 04/24/2020 12:00:00 AM EST NAVEEN ([facility]) Karina Conrad, CADMIUM BURNER-R: [address], [place] [address], Ph. Attender: Karina Conrad [facility] Medical 04/24/2020 12:00:00 AM EST NAVEEN ([facility]) Karina Conrad, CADMIUM BURNER-R: [address], [place] [address], Ph. Attender: Karina Conrad [facility] Medical 04/24/2020 12:00:00 AM EST NAVEEN ([facility]) Karina Conrad, CADMIUM BURNER-R: [address], [place] [address], Ph. Attender: Karina Conrad [facility] Medical 04/24/2020 12:00:00 AM EST NAVEEN ([facility]) Karina Conrad, CADMIUM BURNER-R: [address], [place] [address], Ph. Attender: Karina Conrad [facility] Medical 04/24/2020 12:00:00 AM EST NAVEEN ([facility]) Karina Conrad, CADMIUM BURNER-R: [address], [place] [address], Ph. Attender: Karina Conrad [facility] Medical 04/24/2020 12:00:00 AM EST NAVEEN ([facility]) Karina Conrad, CADMIUM BURNER-R: [address], [place] [address], Ph. Attender: Karina Conrad [facility] Medical 04/24/2020 12:00:00 AM EST NAVEEN ([facility]) Karina Conrad, CADMIUM BURNER-R: [address], [place] [address], Ph. Attender: Karina Conrad [facility] Medical 04/24/2020 12:00:00 AM EST NAVEEN ([facility]) Karina Conrad, CADMIUM BURNER-R: [address], [place] [address], Ph. Attender: Karina Conrad [facility] Medical 04/24/2020 12:00:00 AM EST NAVEEN ([facility]) Karina Conrad, CADMIUM BURNER-R: [address], [address], [place] [address], Ph. Attender: Karina Conrad [facility] Medical 04/24/2020 12:00:00 AM EST NAVEEN ([facility]) Deb Lanier PA-C: [address], [place] [address], Ph. Attender: Deb RIOS [facility] Medical 04/10/2020 12:00:00 AM EST NAVEEN ([facility]) Deb Lanier PA-C: [address], [place] [address], Ph. Attender: Deb RIOS [facility] Medical 04/10/2020 12:00:00 AM EST NAVEEN ([facility]) Deb Lanier PA-C: [address], [place] [address], Ph. Attender: Deb RIOS [facility] Medical 04/10/2020 12:00:00 AM EST NAVEEN ([facility]) Deb Lanier PA-C: [address], [place] [address], Ph. Attender: Deb RIOS [facility] Medical 04/10/2020 12:00:00 AM EST NAVEEN ([facility]) Deb Lanier PA-C: [address], [place] [address], Ph. Attender: Deb RIOS [facility] Medical 04/10/2020 12:00:00 AM EST NAVEEN ([facility]) Deb Lanier PA-C: [address], [place] [address], Ph. Attender: Deb RIOS [facility] Medical 04/10/2020 12:00:00 AM EST NAVEEN ([facility]) Deb Lanier PA-C: [address], [place] [address], Ph. Attender: Deb RIOS [facility] Medical 04/10/2020 12:00:00 AM EST NAVEEN ([facility]) Deb Lanier PA-C: [address], [place] [address], Ph. Attender: Deb RIOS [facility] Medical 04/10/2020 12:00:00 AM EST NAVEEN ([facility]) Deb Lanier PA-C: [address], [place] [address], Ph. Attender: Deb RIOS [facility] Medical 04/10/2020 12:00:00 AM EST NAVEEN ([facility]) Deb Lanier PA-C: [address], [place] [address], Ph. Attender: Deb RIOS [facility] Medical 04/10/2020 12:00:00 AM EST NAVEEN ([facility]) Deb Lanier PA-C: [address], [place] [address], Ph. Attender: Deb RIOS [facility] Medical 04/10/2020 12:00:00 AM EST NAVEEN ([facility]) Deb Lanier PA-C: [address], [place] [address], Ph. Attender: Deb RIOS [facility] Medical 04/10/2020 12:00:00 AM EST NAVEEN ([facility]) Deb Lanier PA-C: [address], [place] [address], Ph. Attender: Deb RIOS [facility] Medical 04/10/2020 12:00:00 AM EST NAVEEN ([facility]) Deb Lanier PA-C: [address], [place] [address], Ph. Attender: Deb RIOS [facility] Medical 04/10/2020 12:00:00 AM EST NAVEEN ([facility]) Deb Lanier PA-C: [address], [place] [address], Ph. Attender: Deb RIOS [facility] Medical 04/10/2020 12:00:00 AM EST NAVEEN ([facility]) Karina Conrad LCSW-R: [address] , [place] [address], Ph. Attender: Karina Conrad [facility] Medical 04/05/2020 12:00:00 AM EST NAVEEN ([facility]) Karina Turturro, CADMIUM BURNER-R: [address] [place] [address], Ph. Attender: Karina Conrad [facility] Medical 04/05/2020 12:00:00 AM EST NAVEEN ([facility]) Kairna Conrad, CADMIUM BURNER-R: [address] [place] [address], Ph. Attender: Karina Conrad [facility] Medical 04/05/2020 12:00:00 AM EST NAVEEN ([facility]) Karina Conrad, [employer]MI[employer] BURNER-R: [address] [place] [address], Ph. Attender: Karina Granadozeb [facility] Medical 04/05/2020 12:00:00 AM EST NAVEEN ([facility]) Karina Conrad, [employer]MI[employer] BURNER-R: [address] [place] [address], Ph. Attender: Karina Conrad [facility] Medical 04/05/2020 12:00:00 AM EST NAVEEN ([facility]) Karina Lathamcaridadlloydzeb, [employer] BURNER-R: [address] [place] [address], Ph. Attender: Karina Yeisonalbero [facility] Medical 04/05/2020 12:00:00 AM EST NAVEEN ([facility]) Karina Yeisonalbero, [employer]URNER-R: [address] [place] [address], Ph. Attender: Karina Monicalloydzeb [facility] Medical 04/05/2020 12:00:00 AM EST NAVEEN ([facility]) Karina Conrad, [employer]URNER-R: [address] [place] [address], Ph. Attender: Karina Conrad [facility] Medical 04/05/2020 12:00:00 AM EST NAVEEN ([facility]) Karina Conrad, [employer]URNER-R: [address] [place] [address], Ph. Attender: Karina Monicalloydzeb [facility] Medical 04/05/2020 12:00:00 AM EST NAVEEN ([facility]) Karina Conrad, [employer]URNER-R: [address] [place] [address], Ph. Attender: Karina Monicalloydzeb [facility] Medical 04/05/2020 12:00:00 AM EST NAVENE ([facility]) Karina Conrad, [employer] BURNER-R: [address] [place] [address], Ph. Attender: Karina Monicalloydzeb [facility] Medical 04/05/2020 12:00:00 AM EST NAVEEN ([facility]) Karina Monicalloydzeb, [employer]URNER-R: [address] [place] [address], Ph. Attender: Karina Monicalloydzeb [facility] Medical 04/05/2020 12:00:00 AM EST NAVEEN ([facility]) Karina Yeisonalberzeb, [employer]NER-R: [address] [place] [address], Ph. Attender: Karina Houston [facility] Medical 04/05/2020 12:00:00 AM EST NAVEEN ([facility]) Karina Conrad, [employer]URNER-R: [address] [place] [address], Ph. Attender: Karina Conrad [facility] Medical 04/05/2020 12:00:00 AM EST NAVEEN ([facility]) Karina Conrad, [employer]NER-R: [address] [place] [address], Ph. Attender: Karina Monicalloydzeb [facility] Medical 04/05/2020 12:00:00 AM EST NAVEEN ([facility]) Karina Conrad, [employer]URNER-R: [address] [place] [address], Ph. Attender: Karina Monicalloydzeb [facility] Medical 04/05/2020 12:00:00 AM EST NAVEEN ([facility]) Karina Conrad, [employer]URNER-R: [address] [place] [address], Ph. Attender: Karina Houston [facility] Medical 03/30/2020 12:00:00 AM EST NAVEEN ([facility]) Karina Granadozeb, [employer]URNER-R: [address] [place] [address], Ph. Attender: Karina Monicalloydo [facility] Medical 03/30/2020 12:00:00 AM EST NAVEEN ([facility]) Karina Yeisonalberzeb, [employer]URNER-R: [address] [place] [address], Ph. Attender: Karina Vannesao [facility] Medical 03/30/2020 12:00:00 AM EST NAVEEN ([facility]) Karina Lathamcraidadlloydzeb, [employer]NER-R: [address] [place] [address], Ph. Attender: Karina Monicalloydzeb [facility] Medical 03/30/2020 12:00:00 AM EST NAVEEN ([facility]) Karina Monicalloydzeb, [employer]URNER-R: [address] , [place] [address], Ph. Attender: Karina Houston [facility] Medical 03/30/2020 12:00:00 AM EST NAVEEN ([facility]) Karina Monicalloydzeb, [employer]NER-R: [address] [place] [address], Ph. Attender: Karina Houston [facility] Medical 03/30/2020 12:00:00 AM EST NAVEEN ([facility]) Karina Monicalloydzeb, [employer]URNER-R: [address] [place] [address], Ph. Attender: Karina Conrad [facility] Medical 03/30/2020 12:00:00 AM EST NAVEEN ([facility]) Karina Monicalloydzeb, [employer]URNER-R: [address] [place] [address], Ph. Attender: Karina Conrad [facility] Medical 03/30/2020 12:00:00 AM EST NAVEEN ([facility]) Karina Houston, [employer]-R: [address] [place] [address], Ph. Attender: Karina Conrad [facility] Medical 03/30/2020 12:00:00 AM EST NAVEEN ([facility]) Karina Conrad, [employer]URNER-R: [address] , [place] [address], Ph. Attender: Karina Monicalloydzeb [facility] Medical 03/30/2020 12:00:00 AM EST NAVEEN ([facility]) Karina Granadozeb, [employer]URNER-R: [address] , [place] [address], Ph. Attender: Karina Monicalloydzeb [facility] Medical 03/30/2020 12:00:00 AM EST NAVEEN ([facility]) Karina Monicalloydzeb, [employer]URNER-R: [address] [place] [address], Ph. Attender: Karina Monicalloydzeb [facility] Medical 03/30/2020 12:00:00 AM EST NAVEEN ([facility]) Karina Lathamcaridadlloydzeb, [employer]NER-R: [address] [place] [address], Ph. Attender: Karina Houston [facility] Medical 03/30/2020 12:00:00 AM EST NAVEEN ([facility]) Karina Monicalloydzeb, [employer]URNER-R: [address] [place] [address], Ph. Attender: Karina Monicalloydzeb [facility] Medical 03/30/2020 12:00:00 AM EST NAVEEN ([facility]) Karina Houston, [employer]UR[employer]-R: [address] [place] [address], Ph. Attender: Karina Turcaridadlloydzeb [facility] Medical 03/30/2020 12:00:00 AM EST NAVEEN ([facility]) Karina Conrad, [employer]URNER-R: [address] , [place] [address], Ph. Attender: Karina Monicalloydzeb [facility] Medical 03/30/2020 12:00:00 AM EST NAVEEN ([facility]) Karina Lathamcaridadlloydzeb, [employer]URNER-R: [address] , [place] [address], Ph. Attender: Karina Monicalloydzeb [facility] Medical 03/30/2020 12:00:00 AM EST NAVEEN ([facility]) Karina Monicalloydzeb, [employer]URNER-R: [address] [place] [address], Ph. Attender: Karina Monicalloydzeb [facility] Medical 03/23/2020 12:00:00 AM EST NAVEEN ([facility]) Karina Granadozeb, [employer]NER-R: [address] [place] [address], Ph. Attender: Karina Monicalloydzeb [facility] Medical 03/23/2020 12:00:00 AM EST NAVEEN ([facility]) Karina Monicalloydzeb, [employer]URNER-R: [address] [place] [address], Ph. Attender: Karina Houston [facility] Medical 03/23/2020 12:00:00 AM EST NAVEEN ([facility]) Karina Houston, [employer]URNER-R: [address] , [place] [address], Ph. Attender: Karina Lathamcaridadlloydzeb [facility] Medical 03/23/2020 12:00:00 AM EST NAVEEN ([facility]) Karina Conrad, [employer]URNER-R: [address] [place] [address], Ph. Attender: Karina Yeisonalberzeb [facility] Medical 03/23/2020 12:00:00 AM EST NAVEEN ([facility]) Karina Granadozeb, [employer]URNER-R: [address] [place] [address], Ph. Attender: Karina Lathamcaridadlloydzeb [facility] Medical 03/23/2020 12:00:00 AM EST NAVEEN ([facility]) Karina Yeisonalberzeb, [employer]URNER-R: [address] [place] [address], Ph. Attender: Karina Monicalloydzeb [facility] Medical 03/23/2020 12:00:00 AM EST NAVEEN ([facility]) Karina Granadozeb, [employer]URNER-R: [address] [place] [address], Ph. Attender: Karina Monicalloydzeb [facility] Medical 03/23/2020 12:00:00 AM EST NAVEEN ([facility]) Karina Monicalloydzeb, [employer]URNER-R: [address] [place] [address], Ph. Attender: Karina Monicalloydo [facility] Medical 03/23/2020 12:00:00 AM EST NAVEEN ([facility]) Karina Houston, [employer]URNER-R: [address] , [place] [address], Ph. Attender: Karina Houston [facility] Medical 03/23/2020 12:00:00 AM EST NAVEEN ([facility]) Karina Houston, [employer]URNER-R: [address] [place] [address], Ph. Attender: Karina Vannesao [facility] Medical 03/23/2020 12:00:00 AM EST NAVEEN ([facility]) Karina Houston, [employer]URNER-R: [address] [place] [address], Ph. Attender: Karina Conrad [facility] Medical 03/23/2020 12:00:00 AM EST NAVEEN ([facility]) Karina Houston, [employer]URNER-R: [address] [place] [address], Ph. Attender: Karina Conrad [facility] Medical 03/23/2020 12:00:00 AM EST NAVEEN ([facility]) Karina Conrad, [employer] BURNER-R: [address] [place] [address], Ph. Attender: Karina Granadoo [facility] Medical 03/23/2020 12:00:00 AM EST NAVEEN ([facility]) Karinapineda Conrad, [employer]URNER-R: [address] [place] [address], Ph. Attender: Karina Conrad [facility] Medical 03/23/2020 12:00:00 AM EST NAVEEN ([facility]) Karina Conrad, [employer]URNER-R: [address] [place] [address], Ph. Attender: Karina Monicalloydzeb [facility] Medical 03/23/2020 12:00:00 AM EST NAVEEN ([facility]) Karina Conrad, [employer]URNER-R: [address] [place] [address], Ph. Attender: Karina Monicalloydzeb [facility] Medical 03/23/2020 12:00:00 AM EST NAVEEN ([facility]) Karina Houston, [employer] BURNER-R: [address] [place] [address], Ph. Attender: Karina Houston [facility] Medical 03/23/2020 12:00:00 AM EST NAVEEN ([facility]) Karina Lathamcaridadlloydzeb, [employer]URNER-R: [address] [place] [address], Ph. Attender: Karina Houston [facility] Medical 03/15/2020 12:00:00 AM EST NAVEEN ([facility]) Karina Houston, [employer] BURNER-R: [address] [place] [address], Ph. Attender: Karina Houston [facility] Medical 03/15/2020 12:00:00 AM EST NAVEEN ([facility]) Karina Houston, [employer] BURNER-R: [address] [place] [address], Ph. Attender: Karina Conrad [facility] Medical 03/15/2020 12:00:00 AM EST NAVEEN ([facility]) Karina Conrad, [employer] BURNER-R: [address] [place] [address], Ph. Attender: Karina Granadozeb [facility] Medical 03/15/2020 12:00:00 AM EST NAVEEN ([facility]) Karina Granadozeb, [employer]URNER-R: [address] [place] [address], Ph. Attender: Karina Lathamcaridadlloydzeb [facility] Medical 03/15/2020 12:00:00 AM EST NAVEEN ([facility]) Karina Conrad, [employer] BURNER-R: [address] [place] [address], Ph. Attender: Karina Monicalloydzeb [facility] Medical 03/15/2020 12:00:00 AM EST NAVEEN ([facility]) Karina Granadozeb, [employer]MI[employer] BURNER-R: [address] [place] [address], Ph. Attender: Karina Monicalloydzeb [facility] Medical 03/15/2020 12:00:00 AM EST NAVEEN ([facility]) Karina Houston, [employer]URNER-R: [address] [place] [address], Ph. Attender: Karina Houston [facility] Medical 03/15/2020 12:00:00 AM EST NAVEEN ([facility]) Karina Houston, [employer] BURNER-R: [address] [place] [address], Ph. Attender: Karina Conrad [facility] Medical 03/15/2020 12:00:00 AM EST NAVEEN ([facility]) Karina Conrad, [employer]URNER-R: [address] [place] [address], Ph. Attender: Karina Conrad [facility] Medical 03/15/2020 12:00:00 AM EST NAVEEN ([facility]) Karina Conrad, [employer] BURNER-R: [address] [place] [address], Ph. Attender: Karina Conrad [facility] Medical 03/15/2020 12:00:00 AM EST NAVEEN ([facility]) Karina Conrad, [employer] BURNER-R: [address] [place] [address], Ph. Attender: Karina Conrad [facility] Medical 03/15/2020 12:00:00 AM EST NAVEEN ([facility]) Karina Conrad, [employer] BURNER-R: [address] [place] [address], Ph. Attender: Karina Monicalloydzeb [facility] Medical 03/15/2020 12:00:00 AM EST NAVEEN ([facility]) Karina Conrad, [employer] BURNER-R: [address] [place] [address], Ph. Attender: Karina Monicalloydo [facility] Medical 03/15/2020 12:00:00 AM EST NAVEEN ([facility]) Karina Conrad, [employer] BURNER-R: [address] [place] [address], Ph. Attender: Karina Monicalloydo [facility] Medical 03/15/2020 12:00:00 AM EST NAVEEN ([facility]) Karina Conrad, [employer]MI[employer] BURNER-R: [address] [place] [address], Ph. Attender: Karina Conrad [facility] Medical 03/15/2020 12:00:00 AM EST NAVEEN ([facility]) Karina Conrad, [employer]MI[employer] BURNER-R: [address] [place] [address], Ph. Attender: Karina Conrad [facility] Medical 03/15/2020 12:00:00 AM EST NAVEEN ([facility]) Karina Conrad, [employer]MI[employer] BURNER-R: [address] [place] [address], Ph. Attender: Karina Conrad [facility] Medical 03/15/2020 12:00:00 AM EST NAVEEN ([facility]) Karina Conrad, [employer] BURNER-R: [address] [place] [address], Ph. Attender: Karina Houston [facility] Medical 03/15/2020 12:00:00 AM EST NAVEEN ([facility]) Karina Conrad, [employer]MI[employer] BURNER-R: [address] [place] [address], Ph. Attender: Karina Monicalloydzeb [facility] Medical 03/15/2020 12:00:00 AM EST NAVEEN ([facility]) Deb Lanier PA-C: [address] [place] [address], Ph. Attender: Deb RIOS [facility] Medical 03/08/2020 12:00:00 AM EST NAVEEN ([facility]) Deb Lanier PA-C: [address], [place] [address], Ph. Attender: Deb RIOS [facility] Medical 03/08/2020 12:00:00 AM EST NAVEEN ([facility]) Deb Lanier PA-C: [address], [place] [address], Ph. Attender: Deb RIOS [facility] Medical 03/08/2020 12:00:00 AM EST NAVEEN ([facility]) Deb Lanier PA-C: [address], [place] [address], Ph. Attender: Deb RIOS [facility] Medical 03/08/2020 12:00:00 AM EST NAVEEN ([facility]) Deb Lanier PA-C: [address], [place] [address], Ph. Attender: eDb RIOS [facility] Medical 03/08/2020 12:00:00 AM EST NAVEEN ([facility]) Deb Lanier PA-C: [address], [place] [address], Ph. Attender: Deb RIOS [facility] Medical 03/08/2020 12:00:00 AM EST NAVEEN ([facility]) Deb Lanier PA-C: [address], [place] [address], Ph. Attender: Deb RIOS [facility] Medical 03/08/2020 12:00:00 AM EST NAVEEN ([facility]) Deb Lanier PA-C: [address], [place] [address], Ph. Attender: Deb RIOS [facility] Medical 03/08/2020 12:00:00 AM EST ANVEEN ([facility]) Deb Lanier PA-C: [address], [place] [address], Ph. Attender: Deb RIOS [facility] Medical 03/08/2020 12:00:00 AM EST NAVEEN ([facility]) Deb Lanier PA-C: [address], [place] [address], Ph. Attender: Deb RIOS [facility] Medical 03/08/2020 12:00:00 AM EST NAVEEN ([facility]) Deb Lanier PA-C: [address], [place] [address], Ph. Attender: Deb RIOS [facility] Medical 03/08/2020 12:00:00 AM EST NAVEEN ([facility]) Deb Lanier PA-C: [address], [place] [address], Ph. Attender: Deb RIOS [facility] Medical 03/08/2020 12:00:00 AM EST NAVEEN ([facility]) Deb Lanier PA-C: [address], [place] [address], Ph. Attender: Deb RIOS [facility] Medical 03/08/2020 12:00:00 AM EST NAVEEN ([facility]) Deb Lanier PA-C: [address], [place] [address], Ph. Attender: Deb RIOS [facility] Medical 03/08/2020 12:00:00 AM EST NAVEEN ([facility]) Deb Lanier PA-C: [address], [place] [address], Ph. Attender: Deb RIOS [facility] Medical 03/08/2020 12:00:00 AM EST NAVEEN ([facility]) Deb Lanier PA-C: [address], [place] [address], Ph. Attender: Deb RIOS [facility] Medical 03/08/2020 12:00:00 AM EST NAVEEN ([facility]) Deb Lanier PA-C: [address], [place] [address], Ph. Attender: Deb RIOS [facility] Medical 03/08/2020 12:00:00 AM EST NAVEEN ([facility]) Deb Lanier PA-C: [address], [place] [address], Ph. Attender: Deb RIOS [facility] Medical 03/08/2020 12:00:00 AM EST NAVEEN ([facility]) Deb Lanier PA-C: [address], [place] [address], Ph. Attender: Deb RIOS [facility] Medical 03/08/2020 12:00:00 AM EST NAVEEN ([facility]) Deb Lanier PA-C: [address], [place] [address], Ph. Attender: Deb RIOS [facility] Medical 03/08/2020 12:00:00 AM EST NAVEEN ([facility]) Deb Lanier PA-C: [address] [place] [address], Ph. Attender: Deb RIOS [facility] Medical 03/08/2020 12:00:00 AM EST NAVEEN ([facility]) Karina Conrad, [employer]MI[employer] BURNER-R: [address] [place] [address], Ph. Attender: Karina Conrad [facility] Medical 03/02/2020 12:00:00 AM EST NAVEEN ([facility]) Karina Conrad, [employer]MI[employer] BURNER-R: [address] [place] [address], Ph. Attender: Karina Conrad [facility] Medical 03/02/2020 12:00:00 AM EST NAVEEN ([facility]) Karina Conrad, [employer]MI[employer] BURNER-R: [address] [place] [address], Ph. Attender: Karina Conrad [facility] Medical 03/02/2020 12:00:00 AM EST NAVEEN ([facility]) Karina Conrad, [employer]MI[employer] BURNER-R: [address] [place] [address], Ph. Attender: Karina Conrad [facility] Medical 03/02/2020 12:00:00 AM EST NAVEEN ([facility]) Karina Conrad, [employer]MI[employer] BURNER-R: [address] [place] [address], Ph. Attender: Karina Granadozeb [facility] Medical 03/02/2020 12:00:00 AM EST NAVEEN ([facility]) Karina Conrad, [employer]MI[employer] BURNER-R: [address] , [place] [address], Ph. Attender: Karina Yeisonalberzeb [facility] Medical 03/02/2020 12:00:00 AM EST NAVEEN ([facility]) Karina Monicalloydzeb, [employer]MI[employer] BURNER-R: [address] , [place] [address], Ph. Attender: Karina Lathamcaridadlloydzeb [facility] Medical 03/02/2020 12:00:00 AM EST NAVEEN ([facility]) Karina Houston, [employer]MI[employer] BURNER-R: [address] [place] [address], Ph. Attender: Karina Monicalloydzeb [facility] Medical 03/02/2020 12:00:00 AM EST NAVEEN ([facility]) Karina Lathamcaridadlloydzeb, [employer]MI[employer] BURNER-R: [address] [place] [address], Ph. Attender: Karina Monicalloydzeb [facility] Medical 03/02/2020 12:00:00 AM EST NAVEEN ([facility]) Karina Houston, [employer]MI[employer] BURNER-R: [address] , [place] [address], Ph. Attender: Karina Monicalloydzeb [facility] Medical 03/02/2020 12:00:00 AM EST NAVEEN ([facility]) Karina Houston, [employer]MI[employer] BURNER-R: [address] , [place] [address], Ph. Attender: Karina Conrad [facility] Medical 03/02/2020 12:00:00 AM EST NAVEEN ([facility]) Karina Conrad, [employer]MI[employer] BURNER-R: [address] [place] [address], Ph. Attender: Karina Conrad [facility] Medical 03/02/2020 12:00:00 AM EST NAVEEN ([facility]) Karina Monicalloydzeb, [employer]MI[employer] BURNER-R: [address] [place] [address], Ph. Attender: Karina Monicalloydzeb [facility] Medical 03/02/2020 12:00:00 AM EST NAVEEN ([facility]) Karina Monicalloydzeb, [employer]MI[employer] BURNER-R: [address] [place] [address], Ph. Attender: Karina Monicalloydzeb [facility] Medical 03/02/2020 12:00:00 AM EST NAVEEN ([facility]) Karina Monicalloydzeb, [employer]MI[employer] BURNER-R: [address] [place] [address], Ph. Attender: Karina Monicalloydzeb [facility] Medical 03/02/2020 12:00:00 AM EST NAVEEN ([facility]) Karina Houston, [employer]MI[employer] BURNER-R: [address] [place] [address], Ph. Attender: Karina Houston [facility] Medical 03/02/2020 12:00:00 AM EST NAVEEN ([facility]) Karina Conrad, [employer]MI[employer] BURNER-R: [address] , [place] [address], Ph. Attender: Karina Monicalloydzeb [facility] Medical 03/02/2020 12:00:00 AM EST NAVEEN ([facility]) Karina Monicalloydzeb, [employer]MI[employer] BURNER-R: [address] [place] [address], Ph. Attender: Karina Houston [facility] Medical 03/02/2020 12:00:00 AM EST NAVEEN ([facility]) Karina Houston, [employer]MI[employer] BURNER-R: [address] [place] [address], Ph. Attender: Karina Houston [facility] Medical 03/02/2020 12:00:00 AM EST NAVEEN ([facility]) Karina Houston, [employer]MI[employer] BURNER-R: [address] [place] [address], Ph. Attender: Karina Houston [facility] Medical 03/02/2020 12:00:00 AM EST NAVEEN ([facility]) Karina Conrad, [employer]MI[employer] BURNER-R: [address] [place] [address], Ph. Attender: Karina Houston [facility] Medical 03/02/2020 12:00:00 AM EST NAVEEN ([facility]) Karina Conrad, [employer]MI[employer] BURNER-R: [address] [place] [address], Ph. Attender: Karina Conrad [facility] Medical 03/02/2020 12:00:00 AM EST NAVEEN ([facility]) Karina Conrad, [employer]MI[employer] BURNER-R: [address] [place] [address], Ph. Attender: Karina Conrad [facility] Medical 02/23/2020 12:00:00 AM EST NAVEEN ([facility]) Karina Conrad, [employer]MIUM BURNER-R: [address] [place] [address], Ph. Attender: Karina Conrad [facility] Medical 02/23/2020 12:00:00 AM EST NAVEEN ([facility]) Karina Conrad, [employer]MI[employer] BURNER-R: [address] [place] [address], Ph. Attender: Karina Granadozeb [facility] Medical 02/23/2020 12:00:00 AM EST NAVEEN ([facility]) Karina Conrad, [employer]MI[employer] BURNER-R: [address] [place] [address], Ph. Attender: Karina Conrad [facility] Medical 02/23/2020 12:00:00 AM EST NAVEEN ([facility]) Karina Lathamcaridadlloydzeb, [employer]MI[employer] BURNER-R: [address] [place] [address], Ph. Attender: Karina Granadoo [facility] Medical 02/23/2020 12:00:00 AM EST NAVEEN ([facility]) Karina Monicalloydo, [employer]MI[employer] BURNER-R: [address] [place] [address], Ph. Attender: Karina Monicalloydzeb [facility] Medical 02/23/2020 12:00:00 AM EST NAVEEN ([facility]) Karina Conrad, CADMIUM BURNER-R: [address] [place] [address], Ph. Attender: Karina Conrad [facility] Medical 02/23/2020 12:00:00 AM EST NAVEEN ([facility]) Karina Conrad, CADMIUM BURNER-R: [address] [place] [address], Ph. Attender: Karina Monicapiero [facility] Medical 02/23/2020 12:00:00 AM EST NAVEEN ([facility]) Karina Conrad, CADMIUM BURNER-R: [address] [place] [address], Ph. Attender: Karina Monicalloydzeb [facility] Medical 02/23/2020 12:00:00 AM EST NAVEEN ([facility]) Karina Conrad, CADMIUM BURNER-R: [address] [place] [address], Ph. Attender: Karina Monicalloydzeb [facility] Medical 02/23/2020 12:00:00 AM EST NAVEEN ([facility]) Karina Monicalloydzeb, CADMIUM BURNER-R: [address] [place] [address], Ph. Attender: Karina Monicalloydzeb [facility] Medical 02/23/2020 12:00:00 AM EST NAVEEN ([facility]) Karina Yeisonalberzeb, CADMIUM BURNER-R: [address] [place] [address], Ph. Attender: Karina Houston [facility] Medical 02/23/2020 12:00:00 AM EST NAVEEN ([facility]) Karina Conrad, [employer]MIUM BURNER-R: [address] [place] [address], Ph. Attender: Karina Conrad [facility] Medical 02/23/2020 12:00:00 AM EST NAVEEN ([facility]) Karina Conrad, CADMIUM BURNER-R: [address] [place] [address], Ph. Attender: Karina Monicalloydzeb [facility] Medical 02/23/2020 12:00:00 AM EST NAVEEN ([facility]) Karina Conrad, CADMIUM BURNER-R: [address] [place] [address], Ph. Attender: Karina Monicalloydzeb [facility] Medical 02/23/2020 12:00:00 AM EST NAVEEN ([facility]) Karina Conrad, CADMIUM BURNER-R: [address] [place] [address], Ph. Attender: Karina Houston [facility] Medical 02/23/2020 12:00:00 AM EST NAVEEN ([facility]) Karina Lathamcaridadlloydzeb, CADMIUM BURNER-R: [address] [place] [address], Ph. Attender: Karina Monicalloydo [facility] Medical 02/23/2020 12:00:00 AM EST NAVEEN ([facility]) Karina Yeisonalberzeb, CADMI[employer] BURNER-R: [address] [place] [address], Ph. Attender: Karina Vannesao [facility] Medical 02/23/2020 12:00:00 AM EST NAVEEN ([facility]) Karina Monicalloydzeb, CADMIUM BURNER-R: [address] [place] [address], Ph. Attender: Karina Monicalloydzeb [facility] Medical 02/23/2020 12:00:00 AM EST NAVEEN ([facility]) Karina Houston, CADMIUM BURNER-R: [address] , [place] [address], Ph. Attender: Karina Houston [facility] Medical 02/23/2020 12:00:00 AM EST NAVEEN ([facility]) Karina Monicalloydzeb, CADMIUM BURNER-R: [address] [place] [address], Ph. Attender: Karina Houston [facility] Medical 02/23/2020 12:00:00 AM EST NAVEEN ([facility]) Karina Monicalloydzeb, CADMIUM BURNER-R: [address] [place] [address], Ph. Attender: Karina Conrad [facility] Medical 02/23/2020 12:00:00 AM EST NAVEEN ([facility]) Karina Monicalloydzeb, CADMIUM BURNER-R: [address] [place] [address], Ph. Attender: Karina Conrad [facility] Medical 02/23/2020 12:00:00 AM EST NAVEEN ([facility]) Karina Houston, [employer]MIUM BURNER-R: [address] [place] [address], Ph. Attender: Karina Conrad [facility] Medical 02/17/2020 12:00:00 AM EST NAVEEN ([facility]) Karina Conrad, CADMIUM BURNER-R: [address] , [place] [address], Ph. Attender: Karina Monicalloydzeb [facility] Medical 02/17/2020 12:00:00 AM EST NAVEEN ([facility]) Karina Conrad, CADMIUM BURNER-R: [address] , [place] [address], Ph. Attender: Karina Monicalloydzeb [facility] Medical 02/17/2020 12:00:00 AM EST NAVEEN ([facility]) Karina Monicalloydzeb, CADMIUM BURNER-R: [address] [place] [address], Ph. Attender: Karina Lathamcaridadlloydzeb [facility] Medical 02/17/2020 12:00:00 AM EST NAVEEN ([facility]) Karina Conrad, CADMIUM BURNER-R: [address] [place] [address], Ph. Attender: Karina Monicalloydzeb [facility] Medical 02/17/2020 12:00:00 AM EST NAVEEN ([facility]) Karina Granadozeb, CADMIUM BURNER-R: [address] [place] [address], Ph. Attender: Karina Monicalloydzeb [facility] Medical 02/17/2020 12:00:00 AM EST NAVEEN ([facility]) Karina Monicalloydzeb, CADMIUM BURNER-R: [address] , [place] [address], Ph. Attender: Karina Turcaridadlloydzeb [facility] Medical 02/17/2020 12:00:00 AM EST NAVEEN ([facility]) Karina Conrad, CADMIUM BURNER-R: [address] , [place] [address], Ph. Attender: Karina Yeisonalberzeb [facility] Medical 02/17/2020 12:00:00 AM EST NAVEEN ([facility]) Karina Granadozeb, CADMIUM BURNER-R: [address] , [place] [address], Ph. Attender: Karina Monicalloydzeb [facility] Medical 02/17/2020 12:00:00 AM EST NAVEEN ([facility]) Karina Monicalloydzeb, CADMIUM BURNER-R: [address] [place] [address], Ph. Attender: Karina Monicalloydzeb [facility] Medical 02/17/2020 12:00:00 AM EST NAVEEN ([facility]) Karina Conrad, CADMIUM BURNER-R: [address] [place] [address], Ph. Attender: Karina Monicalloydzeb [facility] Medical 02/17/2020 12:00:00 AM EST NAVEEN ([facility]) Karina Monicalloydzeb, CADMIUM BURNER-R: [address] , [place] [address], Ph. Attender: Karina Monicalloydzeb [facility] Medical 02/17/2020 12:00:00 AM EST NAVEEN ([facility]) Karina Houston, CADMIUM BURNER-R: [address] , [place] [address], Ph. Attender: Karina Lathamcaridadlloydzeb [facility] Medical 02/17/2020 12:00:00 AM EST NAVEEN ([facility]) Karina Conrad, CADMIUM BURNER-R: [address] [place] [address], Ph. Attender: Karina Granadoo [facility] Medical 02/17/2020 12:00:00 AM EST NAVEEN ([facility]) Karina Conrad, CADMIUM BURNER-R: [address] [place] [address], Ph. Attender: Karina Garnadozeb [facility] Medical 02/17/2020 12:00:00 AM EST NAVEEN ([facility]) Karina Granadoo, CADMIUM BURNER-R: [address] [place] [address], Ph. Attender: Karina Monicalloydo [facility] Medical 02/17/2020 12:00:00 AM EST NAVEEN ([facility]) Karina Granadozeb, CADMIUM BURNER-R: [address] [place] [address], Ph. Attender: Karina Monicalloydo [facility] Medical 02/17/2020 12:00:00 AM EST NAVEEN ([facility]) Karina Monicalloydo, CADMIUM BURNER-R: [address] [place] [address], Ph. Attender: Karina Monicalloydo [facility] Medical 02/17/2020 12:00:00 AM EST NAVEEN ([facility]) Karina Houston, CADMIUM BURNER-R: [address] , [place] [address], Ph. Attender: Karina Conrad [facility] Medical 02/17/2020 12:00:00 AM EST NAVEEN ([facility]) Karina Conrad, CADMIUM BURNER-R: [address] [place] [address], Ph. Attender: Karina Conrad [facility] Medical 02/17/2020 12:00:00 AM EST NAVEEN ([facility]) Karina Conrad, CADMIUM BURNER-R: [address] [place] [address], Ph. Attender: Karina Lathamcaridadlloydzeb [facility] Medical 02/17/2020 12:00:00 AM EST NAVEEN ([facility]) Karina Conrad, CADMIUM BURNER-R: [address] [place] [address], Ph. Attender: Karina Lathamcaridadpiero [facility] Medical 02/17/2020 12:00:00 AM EST NAVEEN ([facility]) Karina Conrad, CADMIUM BURNER-R: [address] [place] [address], Ph. Attender: Karina Conrad [facility] Medical 02/17/2020 12:00:00 AM EST NAVEEN ([facility]) Outpatient Attender: Deb TARANGO 02/10/2020 09:06:01 AM EDT [facility] Karina Conrad, CADMIUM BURNER-R: [address] [place] [address], Ph. Attender: Karina Monicalloydzeb [facility] Medical 02/10/2020 12:00:00 AM EDT [facility] ([facility]) Karina Conrad, CADMIUM BURNER-R: [address] [place] [address], Ph. Attender: Karina Conrad [facility] Medical 02/10/2020 12:00:00 AM EDT [facility] ([facility]) Karina Conrad, CADMIUM BURNER-R: [address] , [place] [address], Ph. Attender: Karina Monicapiero [facility] Medical 02/10/2020 12:00:00 AM EDT [facility] ([facility]) Karina Conrad, CADMIUM BURNER-R: [address] [place] [address], Ph. Attender: Karina Monicapiero [facility] Medical 02/10/2020 12:00:00 AM EDT [facility] ([facility]) Karina Lathamcaridadpiero, CADMIUM BURNER-R: [address] [place] [address], Ph. Attender: Karina Monicalloydzeb [facility] Medical 02/10/2020 12:00:00 AM EDT [facility] Karina Monicalloydzeb, CADMIUM BURNER-R: [address] [place] [address], Ph. Attender: Karina Monicalloydzeb [facility] Medical 02/10/2020 12:00:00 AM EDT E[place] ([facility]) Karina Houston, CADMIUM BURNER-R: [address] [place] [address], Ph. Attender: Karina Monicalloydzeb [facility] Medical 02/10/2020 12:00:00 AM EDT E[place] ([facility]) Karina Conrad, CADMIUM BURNER-R: [address] , [place] [address], Ph. Attender: Karina Conrad [facility] Medical 02/10/2020 12:00:00 AM EDT E[place] ([facility]) Karina Conrad, CADMIUM BURNER-R: [address] , [place] [address], Ph. Attender: Karina Lathamcaridadpiero [facility] Medical 02/10/2020 12:00:00 AM EDT E[place] ([facility]) Karina Monicalloydzeb, CADMIUM BURNER-R: [address] [place] [address], Ph. Attender: Karina Lathamcaridadlloydzeb [facility] Medical 02/10/2020 12:00:00 AM EDT [facility] ([facility]) Karina Lathamcaridadpiero, CADMIUM BURNER-R: [address] [place] [address], Ph. Attender: Karina Monicalloydzeb [facility] Medical 02/10/2020 12:00:00 AM EDT [facility] ([facility]) Karina Monicalloydzeb, CADMIUM BURNER-R: [address] [place] [address], Ph. Attender: Karina Monicalloydzeb [facility] Medical 02/10/2020 12:00:00 AM EDT [facility] ([facility]) Karina Houston, CADMIUM BURNER-R: [address] , [place] [address], Ph. Attender: Karina Conrad [facility] Medical 02/10/2020 12:00:00 AM EDT [facility] ([facility]) Karina Conrad, CADMIUM BURNER-R: [address] [place] [address], Ph. Attender: Karina Conrad [facility] Medical 02/10/2020 12:00:00 AM EDT [facility] ([facility]) Karina Conrad, CADMIUM BURNER-R: [address] , [place] [address], Ph. Attender: Karina Conrad [facility] Medical 02/10/2020 12:00:00 AM EDT [facility] ([facility]) Karina Conrad, CADMIUM BURNER-R: [address] [place] [address], Ph. Attender: Karina Conrad [facility] Medical 02/10/2020 12:00:00 AM EDT [facility] ([facility]) Karina Conrad, CADMIUM BURNER-R: [address] [place] [address], Ph. Attender: Karina Conrad [facility] Medical 02/10/2020 12:00:00 AM EDT [facility] ([facility]) Karina Lathamcaridadpiero, CADMIUM BURNER-R: [address] [place] [address], Ph. Attender: Karina Conrad [facility] Medical 02/10/2020 12:00:00 AM EDT [facility] ([facility]) Karina Houston, CADMIUM BURNER-R: [address] , [place] [address], Ph. Attender: Karina Conrad [facility] Medical 02/10/2020 12:00:00 AM EDT [facility] ([facility]) Karina Conrad, CADMIUM BURNER-R: [address] [place] [address], Ph. Attender: Karina Conrad [facility] Medical 02/10/2020 12:00:00 AM EDT [facility] ([facility]) Karina Lathamcaridadpiero, CADMIUM BURNER-R: [address] [place] [address], Ph. Attender: Karina Monicalloydzeb [facility] Medical 02/10/2020 12:00:00 AM EDT [facility] ([facility]) Karina Lathamcaridadpiero, CADMIUM BURNER-R: [address] [place] [address], Ph. Attender: Karina Lathamcaridadpiero [facility] Medical 02/10/2020 12:00:00 AM EDT [facility] ([facility]) Karina Lathamcaridadlloydzeb, CADMIUM BURNER-R: [address] [place] [address], Ph. Attender: Karina Lathamcaridadpiero [facility] Medical 02/10/2020 12:00:00 AM EDT [facility] ([facility]) Karina Monicalloydzeb, CADMIUM BURNER-R: [address] [place] [address], Ph. Attender: Karina Houston [facility] Medical 02/10/2020 12:00:00 AM EDT [facility] ([facility]) Outpatient Attender: Deb RIOS FP 01/27/2020 08:01:01 PM EDT [facility] Outpatient Attender: Deb RIOS FP 01/27/2020 09:01:00 AM EDT [facility] Outpatient Attender: Deb RIOS FP 01/26/2020 12:24:01 PM EDT [facility] Outpatient Attender: RAVINDRA [facility] FP 01/26/2020 12:23:01 PM [facility] R[facility]DRA [facility] FP 12/27/2019 01:17:11 PM EDT [facility] Outpatient Attender: Deb RIOS FP 12/22/2019 08:01:01 PM EDT [facility] Outpatient Attender: Deb RIOS FP 12/22/2019 09:00:00 AM EDT [facility] Outpatient Attender: Deb RIOS FP 12/15/2019 08:01:03 PM EDT [facility] Outpatient Attender: Deb RISO FP 12/14/2019 07:28:02 AM EDT [facility] Outpatient Attender: RAVINDRA TAY FP 12/13/2019 03:15:01 PM EDT [facility] Outpatient Attender: Deb RIOS FP 12/07/2019 02:07:01 PM EDT [facility] Outpatient Attender: PAVAN BROWNE FP 12/07/2019 10:22:00 AM EDT [facility] Outpatient Attender: PAVAN BROWNE FP 12/01/2019 08:01:04 PM EDT [facility] Outpatient Attender: PAVAN BROWNE FP 11/30/2019 11:53:01 AM EDT [facility] Outpatient Attender: PAVAN BROWNE FP 11/24/2019 08:01:02 PM EDT [facility] Outpatient Attender: PAVAN BROWNE FP 11/24/2019 04:46:01 PM EDT [facility] Outpatient Attender: Tatyana LEONE FP 11/24/2019 11: 48:03 AM EDT [facility] Outpatient Attender: PAVAN BROWNE FP 11/24/2019 10:43:01 AM EDT [facility] Outpatient Attender: Tatyana LEONE FP 11/18/2019 03: 05:01 PM EDT [facility] Outpatient Attender: PAVAN BROWNE FP 11/17/2019 08:01:02 PM EDT [facility] Outpatient Attender: PAVAN BROWNE FP 11/17/2019 11:13:00 AM EDT [facility] Outpatient Attender: PAVAN BROWNE FP 11/15/2019 11:43:00 AM EDT [facility] Outpatient Attender: PAVAN BROWNE FP 11/11/2019 08:01:03 PM EDT [facility] Outpatient Attender: PAVAN BROWNE FP 11/11/2019 03:43:00 PM EDT [facility] Outpatient Attender: PAVAN BROWNE FP 11/03/2019 08:01:02 PM EDT [facility] Outpatient Attender: PAVAN BROWNE FP 11/03/2019 02:49:00 PM EDT [facility] Outpatient Attender: Tatyana BROWNE-BC FP 11/03/2019 11: 49:01 AM EDT [facility] Outpatient Attender: PAVAN BROWNE FP 11/03/2019 10:13:01 AM EDT [facility] Outpatient Attender: PAVAN BROWNE FP 11/03/2019 09:25:00 AM EDT [facility] Outpatient Attender: PAVAN HALEP FP 11/02/2019 11:24:02 AM EDT [facility] Outpatient Attender: Tatyana Josue BROWNE-BC FP 11/02/2019 11: 23:00 AM EDT [facility] Outpatient Attender: Tatyana Josue GOODBC FP 11/02/2019 10: 47:00 AM EDT [facility] Outpatient Attender: PAVAN HALEP FP 11/01/2019 11:45:00 AM EDT [facility] Outpatient Attender: PAVAN BROWNE FP 11/01/2019 09:45:01 AM EDT [facility] Outpatient Attender: PAVAN HALEP FP 10/13/2019 08:01:01 PM EDT [facility] Outpatient Attender: PAVAN HALEP FP 10/12/2019 03:02:17 PM EDT [facility] Outpatient Attender: PAVAN BROWNE FP 10/06/2019 08:01:04 PM EDT [facility] Outpatient Attender: PAVAN BROWNE FP 10/06/2019 10:03:00 AM EDT [facility] Outpatient Attender: PAVAN BROWNE FP 09/29/2019 08:01:02 PM EDT [facility] Outpatient Attender: PAVAN BROWNE FP 09/29/2019 10:52:00 AM EDT [facility] Outpatient Attender: PAVAN BROWNE FP 09/23/2019 11:27:01 AM EDT [facility] Outpatient Attender: PAVAN BROWNE FP 09/22/2019 08:01:03 PM EDT [facility] Outpatient Attender: PAVAN BROWNE FP 09/15/2019 08:01:01 PM EDT [facility] Outpatient Attender: PAVAN BROWNE FP 09/15/2019 03:55:00 PM EDT [facility] Outpatient Attender: PAVAN BROWNE FP 09/15/2019 02:47:00 PM EDT [facility] Outpatient Attender: PAVAN BROWNE FP 09/13/2019 02:48:00 PM EDT [facility] Outpatient Attender: PAVAN BROWNE FP 09/09/2019 09:03:01 AM EDT [facility] Outpatient Attender: Tatyana Josue BROWNE-BC FP 09/09/2019 08: 05:00 AM EDT [facility] Outpatient Attender: PAVAN BROWNE FP 09/08/2019 08:01:00 PM EDT [facility] Outpatient Attender: Tatyana Josue GOODBC FP 09/06/2019 11: 28:00 PM EDT [facility] Outpatient Attender: PAVAN BROWNE FP 09/06/2019 11:28:00 PM EDT [facility] Outpatient Attender: PAVAN BROWNE FP 09/03/2019 09:34:00 AM EDT [facility] Outpatient Attender: PAVAN BROWNE FP 09/01/2019 08:01:04 PM EDT [facility] Outpatient Attender: PAVAN HALEP FP 09/01/2019 02:57:01 PM EDT [facility] Outpatient Attender: PAVAN HALEP FP 08/30/2019 01:39:36 PM EDT [facility] Outpatient Attender: PAVAN BROWNE FP 08/25/2019 08:01:01 PM EDT [facility] Outpatient Attender: PAVAN BROWNE FP 08/18/2019 08:01:04 PM EDT [facility] Outpatient Attender: PAVAN BROWNE FP 08/18/2019 11:47:00 AM EDT [facility] Outpatient Attender: PVAAN BROWNE FP 08/16/2019 03:45:00 PM EDT [facility] Outpatient Attender: DOC GOULD MD FP 08/12/2019 08:01:01 P M EDT [facility] Outpatient Attender: DOC GOULD MD FP 08/12/2019 12:28:00 P M EDT [facility] Outpatient Attender: DOC GOULD MD FP 08/09/2019 02:27:02 P M EDT [facility] Outpatient Attender: DOC GOULD MD FP 08/05/2019 08:01:01 P M EDT [facility] Outpatient Attender: DOC GOULD MD FP 08/02/2019 05:14:00 P [facility] Outpatient Attender: DOC GOULD MD 07/29/2019 08:01:01 P [facility] Outpatient Attender: DOC GOULD MD 07/15/2019 08:01:04 P [facility] Outpatient Attender: DOC GOULD MD 07/15/2019 10:55:00 A [facility] Outpatient Attender: DOC GOULD MD 07/09/2019 01:50:00 P [facility] Outpatient Attender: DOC GOULD MD 06/30/2019 08:01:01 P [facility] Outpatient Attender: DOC GOULD MD 06/30/2019 10:51:01 A [facility] Outpatient Attender: DOC GOULD MD 06/28/2019 03:06:00 P [facility] Outpatient Attender: DOC GOULD MD 06/27/2019 03:46:00 P [facility] Outpatient Attender: DOC GOULD MD 06/23/2019 07:27:59 P [facility] Outpatient Attender: DOC GOULD MD 06/21/2019 03:11:00 P [facility] Outpatient Attender: DOC GOULD MD 06/21/2019 01:59:01 P [facility] Outpatient Attender: DOC GOULD MD 06/21/2019 01:58:00 P [facility] Outpatient Attender: DOC GOULD MD 06/11/2019 02:43:01 P [facility] Outpatient Referrer: Doc Juarez MD 06/11/2019 01:18:00 P [facility] Outpatient Attender: DOC GOULD MD 06/10/2019 11:00:09 A [facility] Outpatient Attender: DOC GOULD MD 06/09/2019 04:23:00 P [facility] Outpatient Attender: DOC GOULD MD 06/09/2019 04:22:01 P [facility] Outpatient Attender: DOC GOULD MD 06/08/2019 08:01:05 P [facility] Outpatient Attender: DOC GOULD MD 06/08/2019 10:13:01 A [facility] Outpatient Attender: DOC GOULD MD 06/07/2019 08:01:06 P [facility] Outpatient Attender: DOC GOULD MD 06/03/2019 08:01:01 P [facility] Outpatient Attender: DOC GOULD MD 06/03/2019 09:40:32 A [facility] Outpatient Attender: DOC GOULD MD 06/02/2019 01:07:00 P [facility] Outpatient Attender: DOC GOULD MD 06/02/2019 12:36:00 P [facility] Outpatient Attender: DOC GOULD MD 06/02/2019 12:03:00 P [facility] Outpatient Attender: DOC GOULD MD 06/01/2019 08:01:01 P [facility] Outpatient Attender: DOC GOULD MD 06/01/2019 04:10:01 P [facility] Outpatient Attender: DOC GOULD MD 06/01/2019 04:02:04 P [facility] Outpatient Attender: DOC GOULD MD 06/01/2019 04:02:02 P [facility] Outpatient Attender: DOC GOULD MD 06/01/2019 03:30:00 P [facility] Outpatient Attender: DOC GOULD MD 05/28/2019 05:22:01 P [facility] Outpatient Attender: DOC GOULD MD 05/28/2019 09:26:39 A [facility] Outpatient Attender: DOC GOULD MD 05/28/2019 09:17:12 A [facility] Outpatient Attender: DOC GOULD MD 05/26/2019 08:01:01 P [facility] Outpatient Attender: DOC GOULD MD 05/26/2019 06:27:00 P [facility] Outpatient Attender: DOC GOULD MD 05/21/2019 11:47:01 A [facility] Outpatient Attender: DOC GOULD MD FP 05/20/2019 10:14:41 A [facility] Outpatient Attender: DOC GOULD MD FP 05/19/2019 08:01:04 [facility] [facility]: DOC GOULD MD FP 05/19/2019 01:44:00 P [facility] Attender: DOC GOULD MD FP 05/11/2019 01:11:00 P [facility] Attender: DOC GOULD MD FP 05/05/2019 08:01:05 P [facility] Attender: DOC GOULD MD FP 05/05/2019 08:45:02 A [facility] Attender: DOC GOULD MD FP 05/03/2019 03:34:01 P [facility] Attender: DOC GOULD MD FP 04/28/2019 08:01:06 P [facility] Attender: DOC GOULD MD FP 04/28/2019 12:20:00 P [facility] Attender: DOC GOULD MD FP 04/28/2019 10:46:01 A [facility] Attender: DOC GOULD MD FP 04/27/2019 04:36:02 P [facility] Attender: DOC GOULD MD FP 04/27/2019 04:35:00 P [facility] Attender: DOC GOULD MD FP 04/27/2019 04:31:01 P [facility] Attender: DOC GOULD MD FP 04/27/2019 04:04:00 P [facility] Attender: DOC GOULD MD FP 04/27/2019 03:19:00 P [facility] Attender: DOC GOULD MD FP 04/21/2019 08:01:01 P [facility] Attender: DOC GOULD MD FP 04/21/2019 03:04:00 P [facility] Attender: DOC GOULD MD FP 04/21/2019 02:29:01 P [facility] Attender: DOC GOULD MD 04/21/2019 02:28:00 P [facility] Outpatient Attender: DOC GOULD MD 04/21/2019 02:27:01 P [facility] Outpatient Attender: DOC GOULD MD 04/19/2019 08:29:00 A [facility] Outpatient Attender: DOC GOULD MD 2019 09:01:04 P [facility] Medications Medication Brand Name Start Date [...] trazodone hydr ochloride 150 MG Oral Tablet [facility]) Trazodone Hydrochloride 150 MG Oral Tabl et trazodone 150 mg tablet Take 1 tablet every day by oral route at dinner for 30 days. trazodone 150 mg tablet Take 1 tablet every day by oral route at dinner for 30 days. 05/15/2020 12:00:00 AM EST 1 completed trazodone hydr ochloride 150 MG Oral Tablet [facility] ([facility]) Trazodone Hydrochloride 150 MG Oral Tabl et trazodone 150 mg tablet Take 1 tablet every day by oral route at dinner for 30 days. trazodone 150 mg tablet Take 1 tablet every day by oral route at dinner for 30 days. 05/15/2020 12:00:00 AM EST 1 completed trazodone hydr ochloride 150 MG Oral Tablet [facility] ([facility]) quetiapine 300 MG Oral Tablet QUETIAPINE FUMARATE [...] tablet completed sertraline 50 MG Oral Tablet [facility]) aripiprazole 15 MG Oral Tablet aripiprazole 15 mg tabl et aripiprazole 15 mg tablet completed aripiprazole 15 MG Oral Tablet [facility]) aripiprazole 10 MG Oral Tablet aripiprazole 10 mg tabl et aripiprazole 10 mg tablet completed aripiprazole 10 MG Oral Tablet [facility]) Trazodone Hydrochloride 50 MG Oral Tablet trazodone 50 mg tablet trazodone 50 mg tablet completed trazodone hydro chloride 50 MG Oral Tablet [facility]) aripiprazole 5 MG Oral Tablet aripiprazole 5 mg tablet aripi prazole 5 mg tablet completed aripiprazole 5 MG Oral Tablet [facility]) aripiprazole 10 MG Oral Tablet aripiprazole 10 mg tabl et aripiprazole 10 mg tablet completed aripiprazole 10 MG Oral Tablet [facility]) aripiprazole 10 MG Oral Tablet aripiprazole 10 mg tabl et aripiprazole 10 mg tablet completed aripiprazole 10 MG Oral Tablet [facility]) aripiprazole 5 MG Oral Tablet aripiprazole 5 mg tablet aripi prazole 5 mg tablet completed aripiprazole 5 MG Oral Tablet [facility]) aripiprazole 10 MG Oral Tablet aripiprazole 10 mg tabl et aripiprazole 10 mg tablet completed aripiprazole 10 MG Oral Tablet [facility] ([facility]) Sertraline 100 MG Oral Tablet sertraline 100 mg tablet sertr jorge 100 mg tablet completed sertraline 100 MG Oral Tablet [facility] ([facility]) aripiprazole 5 MG Oral Tablet aripiprazole 5 mg tablet aripi prazole 5 mg tablet completed aripiprazole 5 MG Oral Tablet [facility] ([facility]) aripiprazole 5 MG Oral Tablet aripiprazole 5 mg tablet aripi prazole 5 mg tablet completed aripiprazole 5 MG Oral Tablet [facility] ([facility]) Trazodone Hydrochloride 50 MG Oral Tablet trazodone 50 mg tablet trazodone 50 mg tablet completed trazodone hydro chloride 50 MG Oral Tablet [facility] ([facility]) Sertraline 50 MG Oral Tablet sertraline 50 mg tablet sertraline 50 mg tablet completed sertraline 50 MG Oral Tablet [facility] ([facility]) aripiprazole 10 MG Oral Tablet aripiprazole 10 mg tabl et aripiprazole 10 mg tablet completed aripiprazole 10 MG Oral Tablet [facility] ([facility]) aripiprazole 10 MG Oral Tablet aripiprazole 10 mg tabl et aripiprazole 10 mg tablet completed aripiprazole 10 MG Oral Tablet [facility] ([facility]) Sertraline 50 MG Oral Tablet sertraline 50 mg tablet sertraline 50 mg tablet completed sertraline 50 MG Oral Tablet [facility] ([facility]) Trazodone Hydrochloride 50 MG Oral Tablet trazodone 50 mg tablet trazodone 50 mg tablet completed trazodone hydro chloride 50 MG Oral Tablet [facility] ([facility]) aripiprazole 15 MG Oral Tablet aripiprazole 15 mg tabl et aripiprazole 15 mg tablet completed aripiprazole 15 MG Oral Tablet [facility] ([facility]) Sertraline 50 MG Oral Tablet sertraline 50 mg tablet sertraline 50 mg tablet completed sertraline 50 MG Oral Tablet [facility] ([facility]) Sertraline 50 MG Oral Tablet sertraline 50 mg tablet sertraline 50 mg tablet completed sertraline 50 MG Oral Tablet [facility] ([facility]) aripiprazole 10 MG Oral Tablet aripiprazole 10 mg tabl et aripiprazole 10 mg tablet completed aripiprazole 10 MG Oral Tablet [facility] ([facility]) aripiprazole 5 MG Oral Tablet aripiprazole 5 mg tablet aripi prazole 5 mg tablet completed aripiprazole 5 MG Oral Tablet [facility] ([facility]) Trazodone Hydrochloride 50 MG Oral Tablet trazodone 50 mg tablet trazodone 50 mg tablet completed trazodone hydro chloride 50 MG Oral Tablet [facility] ([facility]) Sertraline 50 MG Oral Tablet sertraline 50 mg tablet sertraline 50 mg tablet completed sertraline 50 MG Oral Tablet [facility] ([facility]) aripiprazole 5 MG Oral Tablet aripiprazole 5 mg tablet aripi prazole 5 mg tablet completed aripiprazole 5 MG Oral Tablet [facility] ([facility]) aripiprazole 5 MG Oral Tablet aripiprazole 5 mg tablet aripi prazole 5 mg tablet completed aripiprazole 5 MG Oral Tablet [facility] ([facility]) aripiprazole 10 MG Oral Tablet aripiprazole 10 mg tabl et aripiprazole 10 mg tablet completed aripiprazole 10 MG Oral Tablet [facility] ([facility]) Sertraline 50 MG Oral Tablet sertraline 50 mg tablet sertraline 50 mg tablet completed sertraline 50 MG Oral Tablet [facility] ([facility]) Sertraline 50 MG Oral Tablet sertraline 50 mg tablet sertraline 50 mg tablet completed sertraline 50 MG Oral Tablet [facility] ([facility]) aripiprazole 5 MG Oral Tablet aripiprazole 5 mg tablet aripi prazole 5 mg tablet completed aripiprazole 5 MG Oral Tablet [facility] ([facility]) aripiprazole 15 MG Oral Tablet aripiprazole 15 mg tabl et aripiprazole 15 mg tablet completed aripiprazole 15 MG Oral Tablet [facility] ([facility]) Sertraline 50 MG Oral Tablet sertraline 50 mg tablet sertraline 50 mg tablet completed sertraline 50 MG Oral Tablet [facility] ([facility]) Sertraline 50 MG Oral Tablet sertraline 50 mg tablet sertraline 50 mg tablet completed sertraline 50 MG Oral Tablet [facility] ([facility]) Sertraline 50 MG Oral Tablet sertraline 50 mg tablet sertraline 50 mg tablet completed sertraline 50 MG Oral Tablet [facility] ([facility]) Sertraline 50 MG Oral Tablet sertraline 50 mg tablet sertraline 50 mg tablet completed sertraline 50 MG Oral Tablet [facility] ([facility]) aripiprazole 10 MG Oral Tablet aripiprazole 10 mg tabl et aripiprazole 10 mg tablet completed aripiprazole 10 MG Oral Tablet [facility] ([facility]) aripiprazole 5 MG Oral Tablet aripiprazole 5 mg tablet aripi prazole 5 mg tablet completed aripiprazole 5 MG Oral Tablet [facility] ([facility]) Trazodone Hydrochloride 50 MG Oral Tablet trazodone 50 mg tablet trazodone 50 mg tablet completed trazodone hydro chloride 50 MG Oral Tablet [facility] ([facility]) aripiprazole 10 MG Oral Tablet aripiprazole 10 mg tabl et aripiprazole 10 mg tablet completed aripiprazole 10 MG Oral Tablet [facility] ([facility]) aripiprazole 5 MG Oral Tablet aripiprazole 5 mg tablet aripi prazole 5 mg tablet completed aripiprazole 5 MG Oral Tablet [facility] ([facility]) aripiprazole 5 MG Oral Tablet aripiprazole 5 mg tablet aripi prazole 5 mg tablet completed aripiprazole 5 MG Oral Tablet [facility] ([facility]) aripiprazole 15 MG Oral Tablet aripiprazole 15 mg tabl et aripiprazole 15 mg tablet completed aripiprazole 15 MG Oral Tablet [facility] ([facility]) Sertraline 50 MG Oral Tablet sertraline 50 mg tablet sertraline 50 mg tablet completed sertraline 50 MG Oral Tablet [facility] ([facility]) aripiprazole 10 MG Oral Tablet aripiprazole 10 mg tabl et aripiprazole 10 mg tablet completed aripiprazole 10 MG Oral Tablet [facility] ([facility]) aripiprazole 5 MG Oral Tablet aripiprazole 5 mg tablet aripi prazole 5 mg tablet completed aripiprazole 5 MG Oral Tablet [facility] ([facility]) aripiprazole 15 MG Oral Tablet aripiprazole 15 mg tabl et aripiprazole 15 mg tablet completed aripiprazole 15 MG Oral Tablet [facility] ([facility]) aripiprazole 5 MG Oral Tablet aripiprazole 5 mg tablet aripi prazole 5 mg tablet completed aripiprazole 5 MG Oral Tablet [facility] ([facility]) aripiprazole 5 MG Oral Tablet aripiprazole 5 mg tablet aripi prazole 5 mg tablet completed aripiprazole 5 MG Oral Tablet [facility] ([facility]) aripiprazole 10 MG Oral Tablet aripiprazole 10 mg tabl et aripiprazole 10 mg tablet completed aripiprazole 10 MG Oral Tablet [facility] ([facility]) aripiprazole 5 MG Oral Tablet aripiprazole 5 mg tablet aripi prazole 5 mg tablet completed aripiprazole 5 MG Oral Tablet [facility] ([facility]) Trazodone Hydrochloride 50 MG Oral Tablet trazodone 50 mg tablet trazodone 50 mg tablet completed trazodone hydro chloride 50 MG Oral Tablet [facility] ([facility]) aripiprazole 5 MG Oral Tablet aripiprazole 5 mg tablet aripi prazole 5 mg tablet completed aripiprazole 5 MG Oral Tablet [facility] ([facility]) aripiprazole 5 MG Oral Tablet aripiprazole 5 mg tablet aripi prazole 5 mg tablet completed aripiprazole 5 MG Oral Tablet [facility]) Sertraline 50 MG Oral Tablet sertraline 50 mg tablet sertraline 50 mg tablet completed sertraline 50 MG Oral Tablet [facility] ([facility]) aripiprazole 5 MG Oral Tablet aripiprazole 5 mg tablet aripi prazole 5 mg tablet completed aripiprazole 5 MG Oral Tablet [facility] ([facility]) Trazodone Hydrochloride 50 MG Oral Tablet trazodone 50 mg tablet trazodone 50 mg tablet completed trazodone hydro chloride 50 MG Oral Tablet [facility] ([facility]) Sertraline 50 MG Oral Tablet sertraline 50 mg tablet sertraline 50 mg tablet completed sertraline 50 MG Oral Tablet [facility] ([facility]) Sertraline 50 MG Oral Tablet sertraline 50 mg tablet sertraline 50 mg tablet completed sertraline 50 MG Oral Tablet [facility] ([facility]) aripiprazole 15 MG Oral Tablet aripiprazole 15 mg tabl et aripiprazole 15 mg tablet completed aripiprazole 15 MG Oral Tablet [facility] ([facility]) aripiprazole 10 MG Oral Tablet aripiprazole 10 mg tabl et aripiprazole 10 mg tablet completed aripiprazole 10 MG Oral Tablet [facility] ([facility]) Sertraline 50 MG Oral Tablet sertraline 50 mg tablet sertraline 50 mg tablet completed sertraline 50 MG Oral Tablet [facility] ([facility]) aripiprazole 15 MG Oral Tablet aripiprazole 15 mg tabl et aripiprazole 15 mg tablet completed aripiprazole 15 MG Oral Tablet [facility] ([facility]) aripiprazole 10 MG Oral Tablet aripiprazole 10 mg tabl et aripiprazole 10 mg tablet completed aripiprazole 10 MG Oral Tablet [facility] ([facility]) aripiprazole 15 MG Oral Tablet aripiprazole 15 mg tabl et aripiprazole 15 mg tablet completed aripiprazole 15 MG Oral Tablet [facility] ([facility]) Trazodone Hydrochloride 50 MG Oral Tablet trazodone 50 mg tablet trazodone 50 mg tablet completed trazodone hydro chloride 50 MG Oral Tablet [facility] ([facility]) aripiprazole 10 MG Oral Tablet aripiprazole 10 mg tabl et aripiprazole 10 mg tablet completed aripiprazole 10 MG Oral Tablet [facility] ([facility]) aripiprazole 10 MG Oral Tablet aripiprazole 10 mg tabl et aripiprazole 10 mg tablet completed aripiprazole 10 MG Oral Tablet [facility] ([facility]) aripiprazole 10 MG Oral Tablet aripiprazole 10 mg tabl et aripiprazole 10 mg tablet completed aripiprazole 10 MG Oral Tablet [facility] ([facility]) Sertraline 50 MG Oral Tablet sertraline 50 mg tablet sertraline 50 mg tablet completed sertraline 50 MG Oral Tablet [facility] ([facility]) Trazodone Hydrochloride 50 MG Oral Tablet trazodone 50 mg tablet trazodone 50 mg tablet completed trazodone hydro chloride 50 MG Oral Tablet [facility] ([facility]) aripiprazole 10 MG Oral Tablet aripiprazole 10 mg tabl et aripiprazole 10 mg tablet completed aripiprazole 10 MG Oral Tablet [facility] ([facility]) aripiprazole 5 MG Oral Tablet aripiprazole 5 mg tablet aripi prazole 5 mg tablet completed aripiprazole 5 MG Oral Tablet [facility] ([facility]) Sertraline 50 MG Oral Tablet sertraline 50 mg tablet sertraline 50 mg tablet completed sertraline 50 MG Oral Tablet [facility] ([facility]) aripiprazole 10 MG Oral Tablet aripiprazole 10 mg tabl et aripiprazole 10 mg tablet completed aripiprazole 10 MG Oral Tablet [facility] ([facility]) aripiprazole 5 MG Oral Tablet aripiprazole 5 mg tablet aripi prazole 5 mg tablet completed aripiprazole 5 MG Oral Tablet [facility] ([facility]) aripiprazole 15 MG Oral Tablet aripiprazole 15 mg tabl et aripiprazole 15 mg tablet completed aripiprazole 15 MG Oral Tablet [facility] ([facility]) aripiprazole 15 MG Oral Tablet aripiprazole 15 mg tabl et aripiprazole 15 mg tablet completed aripiprazole 15 MG Oral Tablet [facility] ([facility]) aripiprazole 10 MG Oral Tablet aripiprazole 10 mg tabl et aripiprazole 10 mg tablet completed aripiprazole 10 MG Oral Tablet [facility] ([facility]) Trazodone Hydrochloride 50 MG Oral Tablet trazodone 50 mg tablet trazodone 50 mg tablet completed trazodone hydro chloride 50 MG Oral Tablet [facility] ([facility]) Trazodone Hydrochloride 50 MG Oral Tablet trazodone 50 mg tablet trazodone 50 mg tablet completed trazodone hydro chloride 50 MG Oral Tablet [facility] ([facility]) gabapentin 600 MG Oral Tablet gabapentin 600 mg tablet gabap entin 600 mg tablet completed gabapentin 600 MG Oral Tablet [facility] ([facility]) aripiprazole 10 MG Oral Tablet aripiprazole 10 mg tabl et aripiprazole 10 mg tablet completed aripiprazole 10 MG Oral Tablet [facility] ([facility]) Sertraline 50 MG Oral Tablet sertraline 50 mg tablet sertraline 50 mg tablet completed sertraline 50 MG Oral Tablet [facility] ([facility]) aripiprazole 5 MG Oral Tablet aripiprazole 5 mg tablet aripi prazole 5 mg tablet completed aripiprazole 5 MG Oral Tablet [facility] ([facility]) Trazodone Hydrochloride 50 MG Oral Tablet trazodone 50 mg tablet trazodone 50 mg tablet completed trazodone hydro chloride 50 MG Oral Tablet [facility] ([facility]) Sertraline 50 MG Oral Tablet sertraline 50 mg tablet sertraline 50 mg tablet completed sertraline 50 MG Oral Tablet [facility] ([facility]) aripiprazole 15 MG Oral Tablet aripiprazole 15 mg tabl et aripiprazole 15 mg tablet completed aripiprazole 15 MG Oral Tablet [facility] ([facility]) Insurance Providers Payer name Policy type / Coverage type Policy ID Covered democrat ID Covered democrat's relationship to sahni Policy Sahni Plan Information EMEDNY [id number] SP [id number] MEDICARE [id number] SP [id number] Medicaid S [id number] S [id number] Medicare P [id number] S [id number] EMEDNY 0000 SP [id number] [facility] [id number] SP [id number] Medicaid S [id number] Medicaid S [id number] S [id number] MEDICAID [id number] Wellcare P [id number] S [id number] Medicaid S [id number] S [id number] MEDICARE C [id number] S [id number] MEDICAID M [id number] S [id number] [facility] O [id number] S [id number] [facility] O [id number] S [id number] Medicaid S [id number] S [id number] Managed Care - [facility] Community Plan P [id number] S [id number] Managed Care - Community Plan [employer] P [id number] S [id number] [facility] Health Maintenance Organization (HMO) [id number] Self [id number] [facility] Health Maintenance Organization (HMO) [id number] Self [id number] [facility] Health Maintenance Organization (HMO) [id number] Self [id number] [facility] Health Maintenance Organization (HMO) [id number] Self [id number] [facility] COMMUN[facility] [id number] SP [id number] [facility] [id number] SP [id number] [facility] [id number] Self [id number] [facility] Commercial [id number] Self [id number] [facility] Health Maintenance Organization (HMO) [id number] Self [id number] [facility] [id number] SP [id number] SELF PAY ONLY [id number] SP [id number] [facility] [id number] SP [id number] [facility] [id number] SP [id number] Managed Care - Community Plan [employer] P [id number] S [id number] Medicaid S [id number] S [id number] Managed Care - Community Plan [facility] P [id number] S [id number] Managed Care - Community Plan [facility] P [id number] S [id number] Managed Care - Community Plan [facility] P [id number] S [id number] Managed Care - Community Plan [facility] P [id number] S [id number] [facility] [id number] SP [id number] Medicaid P [id number] MEDICAID [id number] SP [id number] UN[employer] COMMUNITY PLAN MCDHMO [id number] SP [id number] [place] [place] 140/640 [id number] [id number] [employer] BCBS B [id number] C [id number] BC[employer] OF [place] WATN 306/[id number] SP [id number] UN COMMUNITY PLAN MCDO [id number] SP [id number] [facility]) O [id number] S [id number] [facility] O UNAVAILABLE S UNAVAILABLE SELF PAY UNAVAILABLE SP UNAVAILA BLE Problems, Conditions, and Diagnoses Code Display Name Description Problem Type Effective Dates Data Source(s) N64.59 Other signs and symptoms in breast Sore nipple 01/26/2020 12:22:03 PM EDT [facility] N64.52 Nipple discharge Discharge from right nipple 01/26/2020 12:22:03 PM EDT [facility] [id number] Breast finding Breast Finding Problem 01/26/2020 12:00: 00 AM EDT [facility] ([facility]) 20918272 Discharge from nipple Discharge from Nipple Problem 01/26/2020 12:00:00 AM EDT [facility] ([facility]) [id number] Breast finding Breast Finding Problem 01/26/2020 12:00: 00 AM EDT [facility] ([facility]) 42208334 Discharge from nipple Discharge from Nipple Problem 01/26/2020 12:00:00 AM EDT [facility] ([facility]) 656869035 Breast finding Breast Finding Problem 01/26/2020 12:00: 00 AM EDT [facility] ([facility]) 88667669 Discharge from nipple Discharge from Nipple Problem 01/26/2020 12:00:00 AM EDT [facility] ([facility]) 766185314 Breast finding Breast Finding Problem 01/26/2020 12:00: 00 AM EDT [facility] ([facility]) 44783323 Discharge from nipple Discharge from Nipple Problem 01/26/2020 12:00:00 AM EDT [facility] ([facility]) 390432011 Breast finding Breast Finding Problem 01/26/2020 12:00: 00 AM EDT [facility] ([facility]) 02481909 Discharge from nipple Discharge from Nipple Problem 01/26/2020 12:00:00 AM EDT [facility] ([facility]) 831062221 Breast finding Breast Finding Problem 01/26/2020 12:00: 00 AM EDT [facility] ([facility]) 77254350 Discharge from nipple Discharge from Nipple Problem 01/26/2020 12:00:00 AM EDT [facility] ([facility]) 940730593 Breast finding Breast Finding Problem 01/26/2020 12:00: 00 AM EDT [facility] ([facility]) 28424437 Discharge from nipple Discharge from Nipple Problem 01/26/2020 12:00:00 AM EDT [facility] ([facility]) 474693275 Breast finding Breast Finding Problem 01/26/2020 12:00: 00 AM EDT [facility] ([facility]) 39174923 Discharge from nipple Discharge from Nipple Problem 01/26/2020 12:00:00 AM EDT [facility] ([facility]) 733457981 Breast finding Breast Finding Problem 01/26/2020 12:00: 00 AM EDT [facility] ([facility]) 32536460 Discharge from nipple Discharge from Nipple Problem 01/26/2020 12:00:00 AM EDT [facility] ([facility]) 391801228 Breast finding Breast Finding Problem 01/26/2020 12:00: 00 AM EDT [facility] ([facility]) 89320876 Discharge from nipple Discharge from Nipple Problem 01/26/2020 12:00:00 AM EDT [facility] ([facility]) 521.00 Dental caries Dental caries 11/02/2019 11:22:30 AM EDT [facility] 719.46 Pain in unspecified knee Pain in unspecified knee 06/01/2019 04:01:41 PM EST [facility] 724.2 Low back pain Low back pain 06/01/2019 04:01:41 PM EST [facility] [id number] Unspecified lump in the right breast, up per outer quadrant Unspecified lump in the right breast, upper outer quadrant 06/01/2019 04:01:41 PM EST [facility] 762342383 Finding of knee region Finding of Knee Region Problem 06/01/2019 12:00:00 AM EST [facility] ([facility]) [id number] Lump in upper outer quadrant of right br east Lump in Upper Outer Quadrant of Right Breast Problem 06/01/2019 12:00:00 AM EST [facility] ( [facility]) 224790123 Low back pain Low Back Pain Problem 06/01/2019 12:00:00 AM EST [facility] ([facility]) 258793529 Finding of knee region Finding of Knee Region Problem 06/01/2019 12:00:00 AM EST [facility] ([facility]) [id number] Lump in upper outer quadrant of right br east Lump in Upper Outer Quadrant of Right Breast Problem 06/01/2019 12:00:00 AM EST [facility] ( [facility]) 976228607 Low back pain Low Back Pain Problem 06/01/2019 12:00:00 AM EST [facility] ([facility]) 040805319 Finding of knee region Finding of Knee Region Problem 06/01/2019 12:00:00 AM EST [facility] ([facility]) [id number] Lump in upper outer quadrant of right br east Lump in Upper Outer Quadrant of Right Breast Problem 06/01/2019 12:00:00 AM EST [facility] ( [facility]) 425908324 Low back pain Low Back Pain Problem 06/01/2019 12:00:00 AM EST [facility] ([facility]) 006821687 Finding of knee region Finding of Knee Region Problem 06/01/2019 12:00:00 AM EST [facility] ([facility]) [id number] Lump in upper outer quadrant of right br east Lump in Upper Outer Quadrant of Right Breast Problem 06/01/2019 12:00:00 AM EST [facility] ( [facility]) 189099142 Low back pain Low Back Pain Problem 06/01/2019 12:00:00 AM EST [facility] ([facility]) 016859655 Finding of knee region Finding of Knee Region Problem 06/01/2019 12:00:00 AM EST NAVEEN ([facility] er) [id number] Lump in upper outer quadrant of right br east Lump in Upper Outer Quadrant of Right Breast Problem 06/01/2019 12:00:00 AM EST NAVEEN ( [facility]) [id number] Low back pain Low Back Pain Problem 06/01/2019 12:00:00 AM EST NAVEEN ([facility]) [id number] Finding of knee region Finding of Knee Region Problem 06/01/2019 12:00:00 AM EST NAVEEN ([facility] er) [id number] Lump in upper outer quadrant of right br east Lump in Upper Outer Quadrant of Right Breast Problem 06/01/2019 12:00:00 AM EST NAVEEN ( [facility]) [id number] Low back pain Low Back Pain Problem 06/01/2019 12:00:00 AM EST NAVEEN ([facility]) [id number] Finding of knee region Finding of Knee Region Problem 06/01/2019 12:00:00 AM EST NAVEEN ([facility] er) [id number] Lump in upper outer quadrant of right br east Lump in Upper Outer Quadrant of Right Breast Problem 06/01/2019 12:00:00 AM EST NAVEEN ( [facility]) [id number] Low back pain Low Back Pain Problem 06/01/2019 12:00:00 AM EST NAVEEN ([facility]) [id number] Finding of knee region Finding of Knee Region Problem 06/01/2019 12:00:00 AM EST NAVEEN ([facility] er) [id number] Lump in upper outer quadrant of right br east Lump in Upper Outer Quadrant of Right Breast Problem 06/01/2019 12:00:00 AM EST NAVEEN ( [facility]) [id number] Low back pain Low Back Pain Problem 06/01/2019 12:00:00 AM EST NAVEEN ([facility]) [id number] Finding of knee region Finding of Knee Region Problem 06/01/2019 12:00:00 AM EST NAVEEN ([facility] er) [id number] Lump in upper outer quadrant of right br east Lump in Upper Outer Quadrant of Right Breast Problem 06/01/2019 12:00:00 AM EST NAVEEN ( [facility]) [id number] Low back pain Low Back Pain Problem 06/01/2019 12:00:00 AM EST NAVEEN ([facility]) [id number] Finding of knee region Finding of Knee Region Problem 06/01/2019 12:00:00 AM EST NAVEEN ([facility] er) [id number] Lump in upper outer quadrant of right br east Lump in Upper Outer Quadrant of Right Breast Problem 06/01/2019 12:00:00 AM EST NAVEEN ( [facility]) [id number] Low back pain Low Back Pain Problem 06/01/2019 12:00:00 AM EST NAVEEN ([facility]) [id number] Finding of knee region Finding of Knee Region Problem 06/01/2019 12:00:00 AM EST NAVEEN ([facility] er) [id number] Lump in upper outer quadrant of right br east Lump in Upper Outer Quadrant of Right Breast Problem 06/01/2019 12:00:00 AM EST NAVEEN ( [facility]) [id number] Low back pain Low Back Pain Problem 06/01/2019 12:00:00 AM EST NAVEEN ([facility]) [id number] Finding of knee region Finding of Knee Region Problem 06/01/2019 12:00:00 AM EST NAVEEN ([facility] er) [id number] Lump in upper outer quadrant of right br east Lump in Upper Outer Quadrant of Right Breast Problem 06/01/2019 12:00:00 AM EST NAVEEN ( [facility]) [id number] Low back pain Low Back Pain Problem 06/01/2019 12:00:00 AM EST NAVEEN ([facility]) [id number] Finding of knee region Finding of Knee Region Problem 06/01/2019 12:00:00 AM EST NAVEEN ([facility] er) [id number] Lump in upper outer quadrant of right br east Lump in Upper Outer Quadrant of Right Breast Problem 06/01/2019 12:00:00 AM EST NAVEEN ( [facility]) [id number] Low back pain Low Back Pain Problem 06/01/2019 12:00:00 AM EST NAVEEN ([facility]) [id number] Finding of knee region Finding of Knee Region Problem 06/01/2019 12:00:00 AM EST NAVEEN ([facility] er) [id number] Lump in upper outer quadrant of right br east Lump in Upper Outer Quadrant of Right Breast Problem 06/01/2019 12:00:00 AM EST NAVEEN ( [facility]) [id number] Low back pain Low Back Pain Problem 06/01/2019 12:00:00 AM EST NAVEEN ([facility]) [id number] Low back pain Low Back Pain Problem 06/01/2019 12:00:00 AM EST NAVEEN ([facility]) [id number] Finding of knee region Finding of Knee Region Problem 06/01/2019 12:00:00 AM EST NAVEEN ([facility] er) [id number] Lump in upper outer quadrant of right br east Lump in Upper Outer Quadrant of Right Breast Problem 06/01/2019 12:00:00 AM EST NAVEEN ( [facility]) 310054354 Low back pain Low Back Pain Problem 06/01/2019 12:00:00 AM EST NAVEEN ([facility]) [id number] Finding of knee region Finding of Knee Region Problem 06/01/2019 12:00:00 AM EST NAVEEN ([facility] er) [id number] Lump in upper outer quadrant of right br east Lump in Upper Outer Quadrant of Right Breast Problem 06/01/2019 12:00:00 AM EST NAVEEN ( [facility]) [id number] Low back pain Low Back Pain Problem 06/01/2019 12:00:00 AM EST NAVEEN ([facility]) [id number] Finding of knee region Finding of Knee Region Problem 06/01/2019 12:00:00 AM EST NAVEEN ([facility] er) [id number] Lump in upper outer quadrant of right br east Lump in Upper Outer Quadrant of Right Breast Problem 06/01/2019 12:00:00 AM EST NAVEEN ( [facility]) [id number] Low back pain Low Back Pain Problem 06/01/2019 12:00:00 AM EST NAVEEN ([facility]) [id number] Finding of knee region Finding of Knee Region Problem 06/01/2019 12:00:00 AM EST NAVEEN ([facility] er) [id number] Lump in upper outer quadrant of right br east Lump in Upper Outer Quadrant of Right Breast Problem 06/01/2019 12:00:00 AM EST NAVEEN ( [facility]) [id number] Low back pain Low Back Pain Problem 06/01/2019 12:00:00 AM EST NAEVEN ([facility]) [id number] Finding of knee region Finding of Knee Region Problem 06/01/2019 12:00:00 AM EST NAVEEN ([facility] er) [id number] Lump in upper outer quadrant of right br east Lump in Upper Outer Quadrant of Right Breast Problem 06/01/2019 12:00:00 AM EST NAVEEN ( [facility]) [id number] Low back pain Low Back Pain Problem 06/01/2019 12:00:00 AM EST NAVEEN ([facility]) [id number] Finding of knee region Finding of Knee Region Problem 06/01/2019 12:00:00 AM EST NAVEEN ([facility] er) [id number] Lump in upper outer quadrant of right br east Lump in Upper Outer Quadrant of Right Breast Problem 06/01/2019 12:00:00 AM EST NAVEEN ( [facility]) [id number] Low back pain Low Back Pain Problem 06/01/2019 12:00:00 AM EST NAVEEN ([facility]) [id number] Finding of knee region Finding of Knee Region Problem 06/01/2019 12:00:00 AM EST NAVEEN ([facility] er) [id number] Lump in upper outer quadrant of right br east Lump in Upper Outer Quadrant of Right Breast Problem 06/01/2019 12:00:00 AM EST NAVEEN ( [facility]) [id number] Finding of knee region Finding of Knee Region Problem 06/01/2019 12:00:00 AM EST NAVEEN ([facility]) [id number] Lump in upper outer quadrant of right br east Lump in Upper Outer Quadrant of Right Breast Problem 06/01/2019 12:00:00 AM EST NAVEEN ( [facility]) [id number] Low back pain Low Back Pain Problem 06/01/2019 12:00:00 AM EST NAVEEN ([facility]) [id number] Finding of knee region Finding of Knee Region Problem 06/01/2019 12:00:00 AM EST NAVEEN ([facility] er) [id number] Lump in upper outer quadrant of right br east Lump in Upper Outer Quadrant of Right Breast Problem 06/01/2019 12:00:00 AM EST NAVEEN ( [facility]) [id number] Low back pain Low Back Pain Problem 06/01/2019 12:00:00 AM EST NAVEEN ([facility]) [id number] Finding of knee region Finding of Knee Region Problem 06/01/2019 12:00:00 AM EST NAVEEN ([facility] er) [id number] Lump in upper outer quadrant of right br east Lump in Upper Outer Quadrant of Right Breast Problem 06/01/2019 12:00:00 AM EST NAVEEN ( [facility]) [id number] Low back pain Low Back Pain Problem 06/01/2019 12:00:00 AM EST NAVEEN ([facility]) 521.00 Dental caries Dental caries 04/27/2019 04:34:34 PM EST [facility] Results ID Date Data Source [id number] 03/30/2020 02:00:00 PM EST NAVEEN ([facility]) Name Value Range Interpretation Code Description Data Alysa rce(s) Supporting Document(s) thyroid stimulating hormone 0.833 uIU/mL 0.358-3.740 normal Thyroid Stimulating Hormone NAVEEN ([facility]) ID Date Data Source [id number] 03/30/2020 02:00:00 PM EST NAVEEN ([facility]) Name Value Range Interpretation Code Description Data Alysa rce(s) Supporting Document(s) blood urea nitrogen 11 mg/dL 7-18 normal Blood Urea Nitro gen NAVEEN ([facility]) glomerular filtration rate > 60.0 >60 normal Glomerula r Filtration Rate NAVEEN ([facility]) creatinine for GFR 0.73 mg/dL 0.55-1.30 normal Creatinine for GF R EMBUDO ([facility]) glucose, fasting 86 mg/dL 70-100 normal Glucose, Fasting AT [facility]) carbon dioxide level 29 mEq/L 21-32 normal Carbon Dioxide Level NAVEEN ([facility]) chloride level 107 mEq/L 98-107 normal Chloride Level EMBUDO ([facility]) sodium level 140 mEq/L 136-145 normal Sodium Level NAVEEN ([facility]) potassium serum 4.4 mEq/L 3.5-5.1 normal Potassium Serum ATHE ([facility]) anion gap 4 mEq/L 8-16 Below low normal Anion Gap EMBUDO ( [facility]) alkaline phosphatase 89 U/L 45-117 normal Alkaline Phosph atase EMBUDO ([facility]) AST/SGOT 10 U/L 7-37 normal AST/SGOT EMBUDO ([facility]) ALT/SGPT 17 U/L 12-78 normal ALT/SGPT EMBUDO ([facility]) calcium level 10.0 mg/dL 8.5-10.1 normal Calcium Level EMBUDO ( [facility]) bilirubin,total 0.5 mg/dL 0.2-1.0 normal Bilirubin,total ATHE [facility]) albumin 4.1 gm/dL 3.2-5.2 normal Albumin EMBUDO ([facility]) total protein 7.8 gm/dL 6.4-8.2 normal Total Protein NAVEEN ( [facility]) albumin/globulin ratio 1.2-2.2 Below low normal Albumin /globulin Ratio EMBUDO ([facility]) ID Date Data Source [id number] 03/30/2020 02:00:00 PM EST [facility]) Name Value Range Interpretation Code Description Data Alysa rce(s) Supporting Document(s) white blood count 5.7 10 4.0-10.0 normal White Blood Count NAVEEN ([facility]) hematocrit 41.8 % 36.0-47.0 normal Hematocrit NAVEEN ([facility]) hemoglobin 13.7 g/dL 12.0-15.5 normal Hemoglobin NAVEEN ([facility]) mean corpuscular volume 96.3 fL 80.0-96.0 Above high normal Mean Corpuscular Volume NAVEEN ([facility]) red blood count 4.34 10 4.00-5.40 normal Red Blood Count ATHE NA ([facility]) platelet count, automated 283 10 150-450 normal Platelet C ount, Automated NAVEEN ([facility]) red cell distribution width 11.7 % 11.5-14.5 normal Red Cell Distribution Width NAVEEN ([facility]) mean corpuscular hemoglobin 31.6 pg 27.0-33.0 normal Mean Corpuscular Hemoglobin NAVEEN ([facility]) mean corpuscular HGB conc 32.8 g/dL 32.0-36.5 normal Mean Corpu scular HGB Conc NAVEEN ([facility]) neutrophils % 53.5 % 36.0-66.0 normal Neutrophils % NAVEEN ( [facility]) mono % 8.9 % 0.0-5.0 Above high normal [place] % NAVEEN ([facility]) eos % 0.9 % 0.0-3.0 normal Eos % NAVEEN ([facility]) lymph % 35.7 % 24.0-44.0 normal Lymph % NAVEEN ([facility]) neutrophils # 3.1 10 1.5-8.5 normal Neutrophils # NAVEEN ( [facility]) immature granulocyte % 0.0 % 0-3.0 normal Immature Gran ulocyte % NAVEEN ([facility]) nucleated red blood cell % 0.0 % 0-0 normal Nucleated Red Blood Cell % NAVEEN ([facility]) baso % 1.0 % 0.0-1.0 normal Baso % NAVEEN ([facility]) baso # 0.1 10 0.0-0.2 normal Baso # NAVEEN ([facility]) mono # 0.5 10 0.0-0.8 normal [place] # NAVEEN ([facility]) eos # 0.1 10 0.0-0.5 normal Eos # NAVEEN ([facility]) lymph # 2.0 10 1.5-5.0 normal Lymph # NAVEEN ([facility]) ID Date Data Source [id number] 03/30/2020 02:00:00 PM EST NAVEEN ([facility]) Name Value Range Interpretation Code Description Data Alysa rce(s) Supporting Document(s) prolactin 4.4 NG/mL normal Prolactin EMBUDO ([facility]) ID Date Data Source [id number] 03/30/2020 02:00:00 PM EST NAVEEN ([facility]) Name Value Range Interpretation Code Description Data Alysa rce(s) Supporting Document(s) thyroid stimulating hormone 0.833 uIU/mL 0.358-3.740 normal Thyroid Stimulating Hormone [facility]) ID Date Data Source [id number] 03/30/2020 02:00:00 PM EST NAVEEN ([facility]) Name Value Range Interpretation Code Description Data Alysa rce(s) Supporting Document(s) glomerular filtration rate > 60.0 >60 normal Glomerula r Filtration Rate EMBUDO ([facility]) glucose, fasting 86 mg/dL 70-100 normal Glucose, Fasting AT [facility]) creatinine for GFR 0.73 mg/dL 0.55-1.30 normal Creatinine for GF R EMBUDO ([facility]) blood urea nitrogen 11 mg/dL 7-18 normal Blood Urea Nitro gen EMBUDO ([facility]) carbon dioxide level 29 mEq/L 21-32 normal Carbon Dioxide Level EMBUDO ([facility]) chloride level 107 mEq/L 98-107 normal Chloride Level EMBUDO ([facility]) sodium level 140 mEq/L 136-145 normal Sodium Level EMBUDO ([facility]) potassium serum 4.4 mEq/L 3.5-5.1 normal Potassium Serum ATHE ([facility]) anion gap 4 mEq/L 8-16 Below low normal Anion Gap NAVEEN ( [facility]) ALT/SGPT 17 U/L 12-78 normal ALT/SGPT NAVEEN ([facility]) AST/SGOT 10 U/L 7-37 normal AST/SGOT NAVEEN ([facility]) calcium level 10.0 mg/dL 8.5-10.1 normal Calcium Level NAVEEN ( [facility]) albumin/globulin ratio 1.2-2.2 Below low normal Albumin /globulin Ratio NAVEEN ([facility]) total protein 7.8 gm/dL 6.4-8.2 normal Total Protein NAVEEN ( [facility]) alkaline phosphatase 89 U/L 45-117 normal Alkaline Phosph atase NAVEEN ([facility]) bilirubin,total 0.5 mg/dL 0.2-1.0 normal Bilirubin,total ATHE ([facility]) albumin 4.1 gm/dL 3.2-5.2 normal Albumin NAVEEN ([facility]) ID Date Data Source [id number] 03/30/2020 02:00:00 PM EST NAVEEN ([facility]) Name Value Range Interpretation Code Description Data Alysa rce(s) Supporting Document(s) red blood count 4.34 10 4.00-5.40 normal Red Blood Count ATHE ([facility]) white blood count 5.7 10 4.0-10.0 normal White Blood Count NAVEEN ([facility]) mean corpuscular hemoglobin 31.6 pg 27.0-33.0 normal Mean Corpuscular Hemoglobin NAVEEN ([facility]) hemoglobin 13.7 g/dL 12.0-15.5 normal Hemoglobin NAVEEN ([facility]) mean corpuscular volume 96.3 fL 80.0-96.0 Above high normal Mean Corpuscular Volume NAVEEN ([facility]) hematocrit 41.8 % 36.0-47.0 normal Hematocrit NAVEEN ([facility]) neutrophils % 53.5 % 36.0-66.0 normal Neutrophils % NAVEEN ( [facility]) red cell distribution width 11.7 % 11.5-14.5 normal Red Cell Distribution Width NAVEEN ([facility]) mean corpuscular HGB conc 32.8 g/dL 32.0-36.5 normal Mean Corpu scular HGB Conc NAVEEN ([facility]) platelet count, automated 283 10 150-450 normal Platelet C ount, Automated NAVEEN ([facility]) lymph % 35.7 % 24.0-44.0 normal Lymph % NAVEEN ([facility]) mono % 8.9 % 0.0-5.0 Above high normal [place] % NAVEEN ([facility]) eos % 0.9 % 0.0-3.0 normal Eos % NAVEEN ([facility]) baso % 1.0 % 0.0-1.0 normal Baso % EMBUDO ([facility]) lymph # 2.0 10 1.5-5.0 normal Lymph # NAVEEN ([facility]) immature granulocyte % 0.0 % 0-3.0 normal Immature Gran ulocyte % NAVEEN ([facility]) nucleated red blood cell % 0.0 % 0-0 normal Nucleated Red Blood Cell % NAVEEN ([facility]) neutrophils # 3.1 10 1.5-8.5 normal Neutrophils # NAVEEN ( [facility]) eos # 0.1 10 0.0-0.5 normal Eos # NAVEEN ([facility]) baso # 0.1 10 0.0-0.2 normal Baso # NAVEEN ([facility]) mono # 0.5 10 0.0-0.8 normal [place] # NAVEEN ([facility]) ID Date Data Source [id number] 03/30/2020 02:00:00 PM EST NAVEEN ([facility]) Name Value Range Interpretation Code Description Data Alysa rce(s) Supporting Document(s) prolactin 4.4 NG/mL normal Prolactin NAVEEN ([facility]) ID Date Data Source [id number] 03/30/2020 02:00:00 PM EST EMBUDO ([facility]) Name Value Range Interpretation Code Description Data Alysa rce(s) Supporting Document(s) thyroid stimulating hormone 0.833 uIU/mL 0.358-3.740 normal Thyroid Stimulating Hormone [facility]) ID Date Data Source [id number] 03/30/2020 02:00:00 PM EST NAVEEN ([facility]) Name Value Range Interpretation Code Description Data Alysa rce(s) Supporting Document(s) glucose, fasting 86 mg/dL 70-100 normal Glucose, Fasting AT [facility]) glomerular filtration rate > 60.0 >60 normal Glomerula r Filtration Rate EMBUDO ([facility]) blood urea nitrogen 11 mg/dL 7-18 normal Blood Urea Nitro gen EMBUDO ([facility]) creatinine for GFR 0.73 mg/dL 0.55-1.30 normal Creatinine for GF R EMBUDO ([facility]) sodium level 140 mEq/L 136-145 normal Sodium Level EMBUDO ([facility]) carbon dioxide level 29 mEq/L 21-32 normal Carbon Dioxide Level EMBUDO ([facility]) chloride level 107 mEq/L 98-107 normal Chloride Level EMBUDO ([facility]) potassium serum 4.4 mEq/L 3.5-5.1 normal [facility]assium [facility] calcium level 10.0 mg/dL 8.5-10.1 normal Calcium Level EMBUDO ( [facility]) anion gap 4 mEq/L 8-16 Below low normal Anion Gap EMBUDO ( [facility]) AST/SGOT 10 U/L 7-37 normal AST/SGOT EMBUDO ([facility]) ALT/SGPT 17 U/L 12-78 normal ALT/SGPT EMBUDO ([facility]) bilirubin,total 0.5 mg/dL 0.2-1.0 normal [facility] alkaline phosphatase 89 U/L 45-117 normal Alkaline Phosph atase [facility]) total protein 7.8 gm/dL 6.4-8.2 normal Total Protein NAVEEN ( [facility]) albumin/globulin ratio 1.2-2.2 Below low normal Albumin /globulin Ratio NAVEEN ([facility]) albumin 4.1 gm/dL 3.2-5.2 normal Albumin NAVEEN ([facility]) ID Date Data Source [id number] 03/30/2020 02:00:00 PM EST NAVEEN ([facility]) Name Value Range Interpretation Code Description Data Alysa rce(s) Supporting Document(s) white blood count 5.7 10 4.0-10.0 normal White Blood Count NAVEEN ([facility]) red blood count 4.34 10 4.00-5.40 normal Red Blood Count ATHE ([facility]) hemoglobin 13.7 g/dL 12.0-15.5 normal Hemoglobin NAVEEN ([facility]) hematocrit 41.8 % 36.0-47.0 normal Hematocrit NAVEEN ([facility]) mean corpuscular volume 96.3 fL 80.0-96.0 Above high normal Mean Corpuscular Volume NAVEEN ([facility]) mean corpuscular hemoglobin 31.6 pg 27.0-33.0 normal Mean Corpuscular Hemoglobin NAVEEN ([facility]) red cell distribution width 11.7 % 11.5-14.5 normal Red Cell Distribution Width NAVEEN ([facility]) platelet count, automated 283 10 150-450 normal Platelet C ount, Automated NAVEEN ([facility]) mean corpuscular HGB conc 32.8 g/dL 32.0-36.5 normal Mean Corpu scular HGB Conc NAVEEN ([facility]) lymph % 35.7 % 24.0-44.0 normal Lymph % NAVEEN ([facility]) neutrophils % 53.5 % 36.0-66.0 normal Neutrophils % NAVEEN ( [facility]) mono % 8.9 % 0.0-5.0 Above high normal [place] % NAVEEN ([facility]) baso % 1.0 % 0.0-1.0 normal Baso % NAVEEN ([facility]) nucleated red blood cell % 0.0 % 0-0 normal Nucleated Red Blood Cell % NAVEEN ([facility]) eos % 0.9 % 0.0-3.0 normal Eos % NAVEEN ([facility]) immature granulocyte % 0.0 % 0-3.0 normal Immature Gran ulocyte % NAVEEN ([facility]) neutrophils # 3.1 10 1.5-8.5 normal Neutrophils # NAVEEN ( [facility]) lymph # 2.0 10 1.5-5.0 normal Lymph # NAVEEN ([facility]) mono # 0.5 10 0.0-0.8 normal [place] # NAVEEN ([facility]) eos # 0.1 10 0.0-0.5 normal Eos # NAVEEN ([facility]) baso # 0.1 10 0.0-0.2 normal Baso # NAVEEN ([facility]) ID Date Data Source [id number] 03/30/2020 02:00:00 PM EST NAVEEN ([facility]) Name Value Range Interpretation Code Description Data Alysa rce(s) Supporting Document(s) prolactin 4.4 NG/mL normal Prolactin NAVEEN ([facility]) ID Date Data Source [id number] 03/30/2020 02:00:00 PM EST NAVEEN ([facility]) Name Value Range Interpretation Code Description Data Alysa rce(s) Supporting Document(s) thyroid stimulating hormone 0.833 uIU/mL 0.358-3.740 normal Thyroid Stimulating Hormone NAVEEN ([facility]) ID Date Data Source [id number] 03/30/2020 02:00:00 PM EST NAVEEN ([facility]) Name Value Range Interpretation Code Description Data Alysa rce(s) Supporting Document(s) glucose, fasting 86 mg/dL 70-100 normal Glucose, Fasting AT [facility] ([facility]) blood urea nitrogen 11 mg/dL 7-18 normal Blood Urea Nitro gen NAVEEN ([facility]) glomerular filtration rate > 60.0 >60 normal Glomerula r Filtration Rate NAVEEN ([facility]) creatinine for GFR 0.73 mg/dL 0.55-1.30 normal Creatinine for GF R NAVEEN ([facility]) sodium level 140 mEq/L 136-145 normal Sodium Level NAVEEN ([facility]) chloride level 107 mEq/L 98-107 normal Chloride Level NAVEEN ([facility]) carbon dioxide level 29 mEq/L 21-32 normal Carbon Dioxide Level NAVEEN ([facility]) potassium serum 4.4 mEq/L 3.5-5.1 normal Potassium Serum ATHE ([facility]) AST/SGOT 10 U/L 7-37 normal AST/SGOT NAVEEN ([facility]) anion gap 4 mEq/L 8-16 Below low normal Anion Gap NAVEEN ( [facility]) calcium level 10.0 mg/dL 8.5-10.1 normal Calcium Level NAVEEN ( [facility]) bilirubin,total 0.5 mg/dL 0.2-1.0 normal Bilirubin,total ATHE ([facility]) ALT/SGPT 17 U/L 12-78 normal ALT/SGPT NAVEEN ([facility]) total protein 7.8 gm/dL 6.4-8.2 normal Total Protein NAVEEN ( [facility]) alkaline phosphatase 89 U/L 45-117 normal Alkaline Phosph atase NAVEEN ([facility]) albumin/globulin ratio 1.2-2.2 Below low normal Albumin /globulin Ratio NAVEEN ([facility]) albumin 4.1 gm/dL 3.2-5.2 normal Albumin EMBUDO ([facility]) ID Date Data Source [id number] 03/30/2020 02:00:00 PM EST NAVEEN ([facility]) Name Value Range Interpretation Code Description Data Alysa rce(s) Supporting Document(s) white blood count 5.7 10 4.0-10.0 normal White Blood Count NAVEEN ([facility]) hemoglobin 13.7 g/dL 12.0-15.5 normal Hemoglobin NAVEEN ([facility]) red blood count 4.34 10 4.00-5.40 normal Red Blood Count ATHE NA ([facility]) mean corpuscular hemoglobin 31.6 pg 27.0-33.0 normal Mean Corpuscular Hemoglobin NAVEEN ([facility]) mean corpuscular volume 96.3 fL 80.0-96.0 Above high normal Mean Corpuscular Volume NAVEEN ([facility]) hematocrit 41.8 % 36.0-47.0 normal Hematocrit NAVEEN ([facility]) platelet count, automated 283 10 150-450 normal Platelet C ount, Automated NAVEEN ([facility]) red cell distribution width 11.7 % 11.5-14.5 normal Red Cell Distribution Width NAVEEN ([facility]) mean corpuscular HGB conc 32.8 g/dL 32.0-36.5 normal Mean Corpu scular HGB Conc NAVEEN ([facility]) lymph % 35.7 % 24.0-44.0 normal Lymph % NAVEEN ([facility]) neutrophils % 53.5 % 36.0-66.0 normal Neutrophils % NAVEEN ( [facility]) baso % 1.0 % 0.0-1.0 normal Baso % EMBUDO ([facility]) mono % 8.9 % 0.0-5.0 Above high normal [place] % NAVEEN ([facility]) eos % 0.9 % 0.0-3.0 normal Eos % NAVEEN ([facility]) nucleated red blood cell % 0.0 % 0-0 normal Nucleated Red Blood Cell % NAVEEN ([facility]) immature granulocyte % 0.0 % 0-3.0 normal Immature Gran ulocyte % NAVEEN ([facility]) neutrophils # 3.1 10 1.5-8.5 normal Neutrophils # EMBUDO ( [facility]) lymph # 2.0 10 1.5-5.0 normal Lymph # NAVEEN ([facility]) eos # 0.1 10 0.0-0.5 normal Eos # NAVEEN ([facility]) mono # 0.5 10 0.0-0.8 normal [place] # NAVEEN ([facility]) baso # 0.1 10 0.0-0.2 normal Baso # NAVEEN ([facility]) ID Date Data Source [id number] 03/30/2020 02:00:00 PM EST NAVEEN ([facility]) Name Value Range Interpretation Code Description Data Alysa rce(s) Supporting Document(s) prolactin 4.4 NG/mL normal Prolactin NAVEEN ([facility]) ID Date Data Source [id number] 03/30/2020 02:00:00 PM EST NAVEEN ([facility]) Name Value Range Interpretation Code Description Data Alysa rce(s) Supporting Document(s) thyroid stimulating hormone 0.833 uIU/mL 0.358-3.740 normal Thyroid Stimulating Hormone NAVEEN ([facility]) ID Date Data Source [id number] 03/30/2020 02:00:00 PM EST NAVEEN ([facility]) Name Value Range Interpretation Code Description Data Alysa rce(s) Supporting Document(s) glucose, fasting 86 mg/dL 70-100 normal Glucose, Fasting AT [facility] ([facility]) blood urea nitrogen 11 mg/dL 7-18 normal Blood Urea Nitro gen NAVEEN ([facility]) glomerular filtration rate > 60.0 >60 normal Glomerula r Filtration Rate EMBUDO ([facility]) creatinine for GFR 0.73 mg/dL 0.55-1.30 normal Creatinine for GF R EMBUDO ([facility]) potassium serum 4.4 mEq/L 3.5-5.1 normal Potassium Serum ATHE NA ([facility]) sodium level 140 mEq/L 136-145 normal Sodium Level NAVEEN ([facility]) anion gap 4 mEq/L 8-16 Below low normal Anion Gap NAVEEN ( [facility]) calcium level 10.0 mg/dL 8.5-10.1 normal Calcium Level EMBUDO ( [facility]) chloride level 107 mEq/L 98-107 normal Chloride Level NAVEEN ([facility]) carbon dioxide level 29 mEq/L 21-32 normal Carbon Dioxide Level NAVEEN ([facility]) total protein 7.8 gm/dL 6.4-8.2 normal Total Protein NAVEEN ( [facility]) alkaline phosphatase 89 U/L 45-117 normal Alkaline Phosph atase NAVEEN ([facility]) ALT/SGPT 17 U/L 12-78 normal ALT/SGPT NAVEEN ([facility]) bilirubin,total 0.5 mg/dL 0.2-1.0 normal Bilirubin,total ATHE ([facility]) AST/SGOT 10 U/L 7-37 normal AST/SGOT NAVEEN ([facility]) albumin 4.1 gm/dL 3.2-5.2 normal Albumin NAVEEN ([facility]) albumin/globulin ratio 1.2-2.2 Below low normal Albumin /globulin Ratio NAVEEN ([facility]) ID Date Data Source [id number] 03/30/2020 02:00:00 PM EST NAVEEN ([facility]) Name Value Range Interpretation Code Description Data Alysa rce(s) Supporting Document(s) white blood count 5.7 10 4.0-10.0 normal White Blood Count NAVEEN ([facility]) red blood count 4.34 10 4.00-5.40 normal Red Blood Count ATHE ([facility]) hemoglobin 13.7 g/dL 12.0-15.5 normal Hemoglobin NAVEEN ([facility]) hematocrit 41.8 % 36.0-47.0 normal Hematocrit NAVEEN ([facility]) mean corpuscular volume 96.3 fL 80.0-96.0 Above high normal Mean Corpuscular Volume NAVEEN ([facility]) mean corpuscular hemoglobin 31.6 pg 27.0-33.0 normal Mean Corpuscular Hemoglobin NAVEEN ([facility]) mean corpuscular HGB conc 32.8 g/dL 32.0-36.5 normal Mean Corpu scular HGB Conc NAVEEN ([facility]) platelet count, automated 283 10 150-450 normal Platelet C ount, Automated NAVEEN ([facility]) red cell distribution width 11.7 % 11.5-14.5 normal Red Cell Distribution Width NAVEEN ([facility]) mono % 8.9 % 0.0-5.0 Above high normal [place] % NAVEEN ([facility]) lymph % 35.7 % 24.0-44.0 normal Lymph % NAVEEN ([facility]) eos % 0.9 % 0.0-3.0 normal Eos % NAVEEN ([facility]) neutrophils % 53.5 % 36.0-66.0 normal Neutrophils % EMBUDO ( [facility]) immature granulocyte % 0.0 % 0-3.0 normal Immature Gran ulocyte % EMB[facility]O ([facility]) neutrophils # 3.1 10 1.5-8.5 normal Neutrophils # NAVEEN ( [facility]) nucleated red blood cell % 0.0 % 0-0 normal Nucleated Red Blood Cell % NAVEEN ([facility]) baso % 1.0 % 0.0-1.0 normal Baso % NAVEEN ([facility]) eos # 0.1 10 0.0-0.5 normal Eos # NAVEEN ([facility]) mono # 0.5 10 0.0-0.8 normal [place] # NAVEEN ([facility]) lymph # 2.0 10 1.5-5.0 normal Lymph # NAVEEN ([facility]) baso # 0.1 10 0.0-0.2 normal Baso # NAVEEN ([facility]) ID Date Data Source [id number] 03/30/2020 02:00:00 PM EST NAVEEN ([facility]) Name Value Range Interpretation Code Description Data Alysa rce(s) Supporting Document(s) prolactin 4.4 NG/mL normal Prolactin [facility]O ([facility]) ID Date Data Source [id number] 03/30/2020 02:00:00 PM EST NAVEEN ([facility]) Name Value Range Interpretation Code Description Data Alysa rce(s) Supporting Document(s) thyroid stimulating hormone 0.833 uIU/mL 0.358-3.740 normal Thyroid Stimulating Hormone EMBUDO ([facility]) ID Date Data Source [id number] 03/30/2020 02:00:00 PM EST NAVEEN ([facility]) Name Value Range Interpretation Code Description Data Alysa rce(s) Supporting Document(s) glucose, fasting 86 mg/dL 70-100 normal Glucose, Fasting AT [facility] ([facility]) blood urea nitrogen 11 mg/dL 7-18 normal Blood Urea Nitro gen [facility]O ([facility]) potassium serum 4.4 mEq/L 3.5-5.1 normal Potassium Serum [facility] ([facility]) creatinine for GFR 0.73 mg/dL 0.55-1.30 normal Creatinine for GF R EMBUDO ([facility]) sodium level 140 mEq/L 136-145 normal Sodium Level NAVEEN ([facility]) glomerular filtration rate > 60.0 >60 normal Glomerula r Filtration Rate NAVEEN ([facility]) carbon dioxide level 29 mEq/L 21-32 normal Carbon Dioxide Level EMB[facility]O ([facility]) chloride level 107 mEq/L 98-107 normal Chloride Level [facility]O ([facility]) anion gap 4 mEq/L 8-16 Below low normal Anion Gap E[facility]O ( [facility]) AST/SGOT 10 U/L 7-37 normal AST/SGOT E[facility]O ([facility]) calcium level 10.0 mg/dL 8.5-10.1 normal Calcium Level EMB[facility]O ( [facility]) alkaline phosphatase 89 U/L 45-117 normal Alkaline Phosph atase NAVEEN ([facility]) ALT/SGPT 17 U/L 12-78 normal ALT/SGPT [facility]O ([facility]) total protein 7.8 gm/dL 6.4-8.2 normal Total Protein NAVEEN ( [facility]) bilirubin,total 0.5 mg/dL 0.2-1.0 normal Bilirubin,total ATHE ([facility]) albumin 4.1 gm/dL 3.2-5.2 normal Albumin NAVEEN ([facility]) albumin/globulin ratio 1.2-2.2 Below low normal Albumin /globulin Ratio NAVEEN ([facility]) ID Date Data Source [id number] 03/30/2020 02:00:00 PM EST NAVEEN ([facility]) Name Value Range Interpretation Code Description Data Alysa rce(s) Supporting Document(s) red blood count 4.34 10 4.00-5.40 normal Red Blood Count ATHE NA ([facility]) white blood count 5.7 10 4.0-10.0 normal White Blood Count NAVEEN ([facility]) hemoglobin 13.7 g/dL 12.0-15.5 normal Hemoglobin NAVEEN ([facility]) mean corpuscular volume 96.3 fL 80.0-96.0 Above high normal Mean Corpuscular Volume NAVEEN ([facility]) hematocrit 41.8 % 36.0-47.0 normal Hematocrit NAVEEN ([facility]) mean corpuscular hemoglobin 31.6 pg 27.0-33.0 normal Mean Corpuscular Hemoglobin NAVEEN ([facility]) platelet count, automated 283 10 150-450 normal Platelet C ount, Automated NAVEEN ([facility]) red cell distribution width 11.7 % 11.5-14.5 normal Red Cell Distribution Width NAVEEN ([facility]) mean corpuscular HGB conc 32.8 g/dL 32.0-36.5 normal Mean Corpu scular HGB Conc NAVEEN ([facility]) mono % 8.9 % 0.0-5.0 Above high normal [place] % NAVEEN ([facility]) lymph % 35.7 % 24.0-44.0 normal Lymph % NAVEEN ([facility]) neutrophils % 53.5 % 36.0-66.0 normal Neutrophils % NAVEEN ( [facility]) immature granulocyte % 0.0 % 0-3.0 normal Immature Gran ulocyte % NAVEEN ([facility]) eos % 0.9 % 0.0-3.0 normal Eos % NAVEEN ([facility]) nucleated red blood cell % 0.0 % 0-0 normal Nucleated Red Blood Cell % NAVEEN ([facility]) baso % 1.0 % 0.0-1.0 normal Baso % NAVEEN ([facility]) lymph # 2.0 10 1.5-5.0 normal Lymph # NAVEEN ([facility]) neutrophils # 3.1 10 1.5-8.5 normal Neutrophils # NAVEEN ( [facility]) mono # 0.5 10 0.0-0.8 normal [place] # NAVEEN ([facility]) eos # 0.1 10 0.0-0.5 normal Eos # NAVEEN ([facility]) baso # 0.1 10 0.0-0.2 normal Baso # NAVEEN ([facility]) ID Date Data Source [id number] 03/30/2020 02:00:00 PM EST NAVEEN ([facility]) Name Value Range Interpretation Code Description Data Alysa rce(s) Supporting Document(s) prolactin 4.4 NG/mL normal Prolactin EMBUDO ([facility]) ID Date Data Source [id number] 03/30/2020 02:00:00 PM EST NAVEEN ([facility]) Name Value Range Interpretation Code Description Data Alysa rce(s) Supporting Document(s) thyroid stimulating hormone 0.833 uIU/mL 0.358-3.740 normal Thyroid Stimulating Hormone EMBUDO ([facility]) ID Date Data Source [id number] 03/30/2020 02:00:00 PM EST NAVEEN ([facility]) Name Value Range Interpretation Code Description Data Alysa rce(s) Supporting Document(s) glucose, fasting 86 mg/dL 70-100 normal Glucose, Fasting AT [facility] ([facility]) blood urea nitrogen 11 mg/dL 7-18 normal Blood Urea Nitro gen EMBUDO ([facility]) sodium level 140 mEq/L 136-145 normal Sodium Level NAVEEN ([facility]) glomerular filtration rate > 60.0 >60 normal Glomerula r Filtration Rate NAVEEN ([facility]) creatinine for GFR 0.73 mg/dL 0.55-1.30 normal Creatinine for GF R NAVEEN ([facility]) potassium serum 4.4 mEq/L 3.5-5.1 normal Potassium Serum ATHE NA ([facility]) anion gap 4 mEq/L 8-16 Below low normal Anion Gap NAVEEN ( [facility]) chloride level 107 mEq/L 98-107 normal Chloride Level NAVEEN ([facility]) carbon dioxide level 29 mEq/L 21-32 normal Carbon Dioxide Level NAVEEN ([facility]) AST/SGOT 10 U/L 7-37 normal AST/SGOT NAVEEN ([facility]) ALT/SGPT 17 U/L 12-78 normal ALT/SGPT NAVEEN ([facility]) bilirubin,total 0.5 mg/dL 0.2-1.0 normal Bilirubin,total ATHE ([facility]) alkaline phosphatase 89 U/L 45-117 normal Alkaline Phosph atase NAVEEN ([facility]) calcium level 10.0 mg/dL 8.5-10.1 normal Calcium Level NAVEEN ( [facility]) total protein 7.8 gm/dL 6.4-8.2 normal Total Protein NAVEEN ( [facility]) albumin 4.1 gm/dL 3.2-5.2 normal Albumin NAVEEN ([facility]) albumin/globulin ratio 1.2-2.2 Below low normal Albumin /globulin Ratio NAVEEN ([facility]) ID Date Data Source [id number] 03/30/2020 02:00:00 PM EST NAVEEN ([facility]) Name Value Range Interpretation Code Description Data Alysa rce(s) Supporting Document(s) white blood count 5.7 10 4.0-10.0 normal White Blood Count NAVEEN ([facility]) red blood count 4.34 10 4.00-5.40 normal Red Blood Count ATHE ([facility]) hematocrit 41.8 % 36.0-47.0 normal Hematocrit NAVEEN ([facility]) hemoglobin 13.7 g/dL 12.0-15.5 normal Hemoglobin NAVEEN ([facility]) mean corpuscular volume 96.3 fL 80.0-96.0 Above high normal Mean Corpuscular Volume NAVEEN ([facility]) mean corpuscular hemoglobin 31.6 pg 27.0-33.0 normal Mean Corpuscular Hemoglobin NAVEEN ([facility]) mean corpuscular HGB conc 32.8 g/dL 32.0-36.5 normal Mean Corpu scular HGB Conc NAVEEN ([facility]) platelet count, automated 283 10 150-450 normal Platelet C ount, Automated NAVEEN ([facility]) red cell distribution width 11.7 % 11.5-14.5 normal Red Cell Distribution Width NAVEEN ([facility]) mono % 8.9 % 0.0-5.0 Above high normal [place] % NAVEEN ([facility]) neutrophils % 53.5 % 36.0-66.0 normal Neutrophils % NAVEEN ( [facility]) lymph % 35.7 % 24.0-44.0 normal Lymph % NAVEEN ([facility]) baso % 1.0 % 0.0-1.0 normal Baso % NAVEEN ([facility]) eos % 0.9 % 0.0-3.0 normal Eos % NAVEEN ([facility]) immature granulocyte % 0.0 % 0-3.0 normal Immature Gran ulocyte % NAVEEN ([facility]) nucleated red blood cell % 0.0 % 0-0 normal Nucleated Red Blood Cell % NAVEEN ([facility]) neutrophils # 3.1 10 1.5-8.5 normal Neutrophils # NAVEEN ( [facility]) mono # 0.5 10 0.0-0.8 normal [place] # NAVEEN ([facility]) eos # 0.1 10 0.0-0.5 normal Eos # NAVEEN ([facility]) lymph # 2.0 10 1.5-5.0 normal Lymph # NAVEEN ([facility]) baso # 0.1 10 0.0-0.2 normal Baso # NAVEEN ([facility]) ID Date Data Source [id number] 03/30/2020 02:00:00 PM EST NAVEEN ([facility]) Name Value Range Interpretation Code Description Data Alysa rce(s) Supporting Document(s) prolactin 4.4 NG/mL normal Prolactin NAVEEN ([facility]) ID Date Data Source [id number] 03/30/2020 02:00:00 PM EST NAVEEN ([facility]) Name Value Range Interpretation Code Description Data Alysa rce(s) Supporting Document(s) thyroid stimulating hormone 0.833 uIU/mL 0.358-3.740 normal Thyroid Stimulating Hormone EMBUDO ([facility]) ID Date Data Source [id number] 03/30/2020 02:00:00 PM EST NAVEEN ([facility]) Name Value Range Interpretation Code Description Data Alysa rce(s) Supporting Document(s) glucose, fasting 86 mg/dL 70-100 normal Glucose, Fasting AT [facility]) glomerular filtration rate > 60.0 >60 normal Glomerula r Filtration Rate NAVEEN ([facility]) blood urea nitrogen 11 mg/dL 7-18 normal Blood Urea Nitro gen EMBUDO ([facility]) creatinine for GFR 0.73 mg/dL 0.55-1.30 normal Creatinine for GF R EMBUDO ([facility]) potassium serum 4.4 mEq/L 3.5-5.1 normal Potassium Serum ATHE NA ([facility]) carbon dioxide level 29 mEq/L 21-32 normal Carbon Dioxide Level NAVEEN ([facility]) chloride level 107 mEq/L 98-107 normal Chloride Level EMB[facility]O ([facility]) anion gap 4 mEq/L 8-16 Below low normal Anion Gap NAVEEN ( [facility]) sodium level 140 mEq/L 136-145 normal Sodium Level NAVEEN ([facility]) alkaline phosphatase 89 U/L 45-117 normal Alkaline Phosph atase NAVEEN ([facility]) ALT/SGPT 17 U/L 12-78 normal ALT/SGPT NAVEEN ([facility]) AST/SGOT 10 U/L 7-37 normal AST/SGOT NAVEEN ([facility]) calcium level 10.0 mg/dL 8.5-10.1 normal Calcium Level NAVEEN ( [facility]) albumin/globulin ratio 1.2-2.2 Below low normal Albumin /globulin Ratio NAVEEN ([facility]) albumin 4.1 gm/dL 3.2-5.2 normal Albumin NAVEEN ([facility]) bilirubin,total 0.5 mg/dL 0.2-1.0 normal Bilirubin,total ATHE ([facility]) total protein 7.8 gm/dL 6.4-8.2 normal Total Protein NAVEEN ( [facility]) ID Date Data Source [id number] 03/30/2020 02:00:00 PM EST NAVEEN ([facility]) Name Value Range Interpretation Code Description Data Alysa rce(s) Supporting Document(s) white blood count 5.7 10 4.0-10.0 normal White Blood Count NAVEEN ([facility]) mean corpuscular volume 96.3 fL 80.0-96.0 Above high normal Mean Corpuscular Volume NAVEEN ([facility]) red blood count 4.34 10 4.00-5.40 normal Red Blood Count ATHE NA ([facility]) hematocrit 41.8 % 36.0-47.0 normal Hematocrit NAVEEN ([facility]) hemoglobin 13.7 g/dL 12.0-15.5 normal Hemoglobin NAVEEN ([facility]) mean corpuscular HGB conc 32.8 g/dL 32.0-36.5 normal Mean Corpu scular HGB Conc NAVEEN ([facility]) red cell distribution width 11.7 % 11.5-14.5 normal Red Cell Distribution Width NAVEEN ([facility]) mean corpuscular hemoglobin 31.6 pg 27.0-33.0 normal Mean Corpuscular Hemoglobin NAVEEN ([facility]) neutrophils % 53.5 % 36.0-66.0 normal Neutrophils % NAVEEN ( [facility]) platelet count, automated 283 10 150-450 normal Platelet C ount, Automated NAVEEN ([facility]) lymph % 35.7 % 24.0-44.0 normal Lymph % NAVEEN ([facility]) eos % 0.9 % 0.0-3.0 normal Eos % NAVEEN ([facility]) baso % 1.0 % 0.0-1.0 normal Baso % NAVEEN ([facility]) mono % 8.9 % 0.0-5.0 Above high normal [place] % NAVEEN ([facility]) immature granulocyte % 0.0 % 0-3.0 normal Immature Gran ulocyte % NAVEEN ([facility]) neutrophils # 3.1 10 1.5-8.5 normal Neutrophils # NAVEEN ( [facility]) lymph # 2.0 10 1.5-5.0 normal Lymph # NAVEEN ([facility]) nucleated red blood cell % 0.0 % 0-0 normal Nucleated Red Blood Cell % NAVEEN ([facility]) mono # 0.5 10 0.0-0.8 normal [place] # NAVEEN ([facility]) baso # 0.1 10 0.0-0.2 normal Baso # NAVEEN ([facility]) eos # 0.1 10 0.0-0.5 normal Eos # NAVEEN ([facility]) ID Date Data Source [id number] 03/30/2020 02:00:00 PM EST NAVEEN ([facility]) Name Value Range Interpretation Code Description Data Alysa rce(s) Supporting Document(s) prolactin 4.4 NG/mL normal Prolactin NAVEEN ([facility]) ID Date Data Source [id number] 03/30/2020 02:00:00 PM EST NAVEEN ([facility]) Name Value Range Interpretation Code Description Data Alysa rce(s) Supporting Document(s) thyroid stimulating hormone 0.833 uIU/mL 0.358-3.740 normal Thyroid Stimulating Hormone NAVEEN ([facility]) ID Date Data Source [id number] 03/30/2020 02:00:00 PM EST NAVEEN ([facility]) Name Value Range Interpretation Code Description Data Alysa rce(s) Supporting Document(s) glucose, fasting 86 mg/dL 70-100 normal Glucose, Fasting AT [facility] ([facility]) potassium serum 4.4 mEq/L 3.5-5.1 normal Potassium Serum ATHE ([facility]) blood urea nitrogen 11 mg/dL 7-18 normal Blood Urea Nitro gen NAVEEN ([facility]) sodium level 140 mEq/L 136-145 normal Sodium Level NAVEEN ([facility]) creatinine for GFR 0.73 mg/dL 0.55-1.30 normal Creatinine for GF R NAVEEN ([facility]) glomerular filtration rate > 60.0 >60 normal Glomerula r Filtration Rate NAVEEN ([facility]) carbon dioxide level 29 mEq/L 21-32 normal Carbon Dioxide Level NAVEEN ([facility]) anion gap 4 mEq/L 8-16 Below low normal Anion Gap NAVEEN ( [facility]) chloride level 107 mEq/L 98-107 normal Chloride Level NAVEEN ([facility]) calcium level 10.0 mg/dL 8.5-10.1 normal Calcium Level NAVEEN ( [facility]) ALT/SGPT 17 U/L 12-78 normal ALT/SGPT NAVEEN ([facility]) bilirubin,total 0.5 mg/dL 0.2-1.0 normal Bilirubin,total ATHE ([facility]) albumin 4.1 gm/dL 3.2-5.2 normal Albumin NAVEEN ([facility]) AST/SGOT 10 U/L 7-37 normal AST/SGOT NAVEEN ([facility]) total protein 7.8 gm/dL 6.4-8.2 normal Total Protein NAVEEN ( [facility]) alkaline phosphatase 89 U/L 45-117 normal Alkaline Phosph atase NAVEEN ([facility]) albumin/globulin ratio 1.2-2.2 Below low normal Albumin /globulin Ratio NAVEEN ([facility]) ID Date Data Source [id number] 03/30/2020 02:00:00 PM EST NAVEEN ([facility]) Name Value Range Interpretation Code Description Data Alysa rce(s) Supporting Document(s) white blood count 5.7 10 4.0-10.0 normal White Blood Count NAVEEN ([facility]) hematocrit 41.8 % 36.0-47.0 normal Hematocrit NAVEEN ([facility]) hemoglobin 13.7 g/dL 12.0-15.5 normal Hemoglobin NAVEEN ([facility]) red blood count 4.34 10 4.00-5.40 normal Red Blood Count ATHE ([facility]) red cell distribution width 11.7 % 11.5-14.5 normal Red Cell Distribution Width NAVEEN ([facility]) mean corpuscular HGB conc 32.8 g/dL 32.0-36.5 normal Mean Corpu scular HGB Conc NAVEEN ([facility]) mean corpuscular volume 96.3 fL 80.0-96.0 Above high normal Mean Corpuscular Volume NAVEEN ([facility]) mean corpuscular hemoglobin 31.6 pg 27.0-33.0 normal Mean Corpuscular Hemoglobin NAVEEN ([facility]) mono % 8.9 % 0.0-5.0 Above high normal [place] % NAVEEN ([facility]) platelet count, automated 283 10 150-450 normal Platelet C ount, Automated NAVEEN ([facility]) neutrophils % 53.5 % 36.0-66.0 normal Neutrophils % NAVEEN ( [facility]) lymph % 35.7 % 24.0-44.0 normal Lymph % NAVEEN ([facility]) eos % 0.9 % 0.0-3.0 normal Eos % NAVEEN ([facility]) neutrophils # 3.1 10 1.5-8.5 normal Neutrophils # NAVEEN ( [facility]) nucleated red blood cell % 0.0 % 0-0 normal Nucleated Red Blood Cell % NAVEEN ([facility]) immature granulocyte % 0.0 % 0-3.0 normal Immature Gran ulocyte % NAVEEN ([facility]) baso % 1.0 % 0.0-1.0 normal Baso % NAVEEN ([facility]) lymph # 2.0 10 1.5-5.0 normal Lymph # NAVEEN ([facility]) baso # 0.1 10 0.0-0.2 normal Baso # NAVEEN ([facility]) mono # 0.5 10 0.0-0.8 normal [place] # NAVEEN ([facility]) eos # 0.1 10 0.0-0.5 normal Eos # NAVEEN ([facility]) ID Date Data Source [id number] 03/30/2020 02:00:00 PM EST NAVEEN ([facility]) Name Value Range Interpretation Code Description Data Alysa rce(s) Supporting Document(s) prolactin 4.4 NG/mL normal Prolactin EMBUDO ([facility]) ID Date Data Source [id number] 03/30/2020 02:00:00 PM EST NAVEEN ([facility]) Name Value Range Interpretation Code Description Data Alysa rce(s) Supporting Document(s) thyroid stimulating hormone 0.833 uIU/mL 0.358-3.740 normal Thyroid Stimulating Hormone EMBUDO ([facility]) ID Date Data Source [id number] 03/30/2020 02:00:00 PM EST NAVEEN ([facility]) Name Value Range Interpretation Code Description Data Alysa rce(s) Supporting Document(s) creatinine for GFR 0.73 mg/dL 0.55-1.30 normal Creatinine for GF R NAVEEN ([facility]) blood urea nitrogen 11 mg/dL 7-18 normal Blood Urea Nitro gen NAVEEN ([facility]) glucose, fasting 86 mg/dL 70-100 normal Glucose, Fasting AT [facility] ([facility]) glomerular filtration rate > 60.0 >60 normal Glomerula r Filtration Rate NAVEEN ([facility]) carbon dioxide level 29 mEq/L 21-32 normal Carbon Dioxide Level NAVEEN ([facility]) potassium serum 4.4 mEq/L 3.5-5.1 normal Potassium Serum ATHE ([facility]) chloride level 107 mEq/L 98-107 normal Chloride Level NAVEEN ([facility]) sodium level 140 mEq/L 136-145 normal Sodium Level NAVEEN ([facility]) calcium level 10.0 mg/dL 8.5-10.1 normal Calcium Level NAVEEN ( [facility]) anion gap 4 mEq/L 8-16 Below low normal Anion Gap NAVEEN ( [facility]) AST/SGOT 10 U/L 7-37 normal AST/SGOT NAVEEN ([facility]) ALT/SGPT 17 U/L 12-78 normal ALT/SGPT NAVEEN ([facility]) bilirubin,total 0.5 mg/dL 0.2-1.0 normal Bilirubin,total ATHE ([facility]) albumin/globulin ratio 1.2-2.2 Below low normal Albumin /globulin Ratio NAVEEN ([facility]) albumin 4.1 gm/dL 3.2-5.2 normal Albumin NAVEEN ([facility]) alkaline phosphatase 89 U/L 45-117 normal Alkaline Phosph atase NAVEEN ([facility]) total protein 7.8 gm/dL 6.4-8.2 normal Total Protein NAVEEN ( [facility]) ID Date Data Source [id number] 03/30/2020 02:00:00 PM EST NAVEEN ([facility]) Name Value Range Interpretation Code Description Data Alysa rce(s) Supporting Document(s) red blood count 4.34 10 4.00-5.40 normal Red Blood Count ATHE ([facility]) white blood count 5.7 10 4.0-10.0 normal White Blood Count NAVEEN ([facility]) hematocrit 41.8 % 36.0-47.0 normal Hematocrit NAVEEN ([facility]) mean corpuscular volume 96.3 fL 80.0-96.0 Above high normal Mean Corpuscular Volume NAVEEN ([facility]) hemoglobin 13.7 g/dL 12.0-15.5 normal Hemoglobin NAVEEN ([facility]) mean corpuscular hemoglobin 31.6 pg 27.0-33.0 normal Mean Corpuscular Hemoglobin NAVEEN ([facility]) platelet count, automated 283 10 150-450 normal Platelet C ount, Automated NAVEEN ([facility]) neutrophils % 53.5 % 36.0-66.0 normal Neutrophils % NAVEEN ( [facility]) red cell distribution width 11.7 % 11.5-14.5 normal Red Cell Distribution Width NAVEEN ([facility]) mean corpuscular HGB conc 32.8 g/dL 32.0-36.5 normal Mean Corpu scular HGB Conc EMBUDO ([facility]) eos % 0.9 % 0.0-3.0 normal Eos % NAVEEN ([facility]) lymph % 35.7 % 24.0-44.0 normal Lymph % NAVEEN ([facility]) mono % 8.9 % 0.0-5.0 Above high normal [place] % EMBUDO ([facility]) immature granulocyte % 0.0 % 0-3.0 normal Immature Gran ulocyte % NAVEEN ([facility]) nucleated red blood cell % 0.0 % 0-0 normal Nucleated Red Blood Cell % NAVEEN ([facility]) baso % 1.0 % 0.0-1.0 normal Baso % NAVEEN ([facility]) eos # 0.1 10 0.0-0.5 normal Eos # NAVEEN ([facility]) mono # 0.5 10 0.0-0.8 normal [place] # NAVEEN ([facility]) lymph # 2.0 10 1.5-5.0 normal Lymph # NAVEEN ([facility]) neutrophils # 3.1 10 1.5-8.5 normal Neutrophils # NAVEEN ( [facility]) baso # 0.1 10 0.0-0.2 normal Baso # NAVEEN ([facility]) ID Date Data Source [id number] 03/30/2020 02:00:00 PM EST NAVEEN ([facility]) Name Value Range Interpretation Code Description Data Alysa rce(s) Supporting Document(s) prolactin 4.4 NG/mL normal Prolactin NAVEEN ([facility]) ID Date Data Source [id number] 03/30/2020 02:00:00 PM EST NAVEEN ([facility]) Name Value Range Interpretation Code Description Data Alysa rce(s) Supporting Document(s) thyroid stimulating hormone 0.833 uIU/mL 0.358-3.740 normal Thyroid Stimulating Hormone NAVEEN ([facility]) ID Date Data Source [id number] 03/30/2020 02:00:00 PM EST NAVEEN ([facility]) Name Value Range Interpretation Code Description Data Alysa rce(s) Supporting Document(s) blood urea nitrogen 11 mg/dL 7-18 normal Blood Urea Nitro gen NAVEEN ([facility]) glucose, fasting 86 mg/dL 70-100 normal Glucose, Fasting AT [facility]) potassium serum 4.4 mEq/L 3.5-5.1 normal Potassium Serum ATHE ([facility]) glomerular filtration rate > 60.0 >60 normal Glomerula r Filtration Rate EMBUDO ([facility]) sodium level 140 mEq/L 136-145 normal Sodium Level NAVEEN ([facility]) creatinine for GFR 0.73 mg/dL 0.55-1.30 normal Creatinine for GF R NAVEEN ([facility]) carbon dioxide level 29 mEq/L 21-32 normal Carbon Dioxide Level NAVEEN ([facility]) calcium level 10.0 mg/dL 8.5-10.1 normal Calcium Level EMBUDO ( [facility]) AST/SGOT 10 U/L 7-37 normal AST/SGOT E[facility]UDO ([facility]) chloride level 107 mEq/L 98-107 normal Chloride Level NAVEEN ([facility]) anion gap 4 mEq/L 8-16 Below low normal Anion Gap EMBUDO ( [facility]) ALT/SGPT 17 U/L 12-78 normal ALT/SGPT NAVEEN ([facility]) total protein 7.8 gm/dL 6.4-8.2 normal Total Protein NAVEEN ( [facility]) alkaline phosphatase 89 U/L 45-117 normal Alkaline Phosph atase NAVEEN ([facility]) bilirubin,total 0.5 mg/dL 0.2-1.0 normal Bilirubin,total ATHE NA ([facility]) albumin 4.1 gm/dL 3.2-5.2 normal Albumin NAVEEN ([facility]) albumin/globulin ratio 1.2-2.2 Below low normal Albumin /globulin Ratio NAVEEN ([facility]) ID Date Data Source [id number] 03/30/2020 02:00:00 PM EST NAVEEN ([facility]) Name Value Range Interpretation Code Description Data Alysa rce(s) Supporting Document(s) white blood count 5.7 10 4.0-10.0 normal White Blood Count NAVEEN ([facility]) hemoglobin 13.7 g/dL 12.0-15.5 normal Hemoglobin NAVEEN ([facility]) red blood count 4.34 10 4.00-5.40 normal Red Blood Count ATHE ([facility]) hematocrit 41.8 % 36.0-47.0 normal Hematocrit NAVEEN ([facility]) mean corpuscular volume 96.3 fL 80.0-96.0 Above high normal Mean Corpuscular Volume NAVEEN ([facility]) mean corpuscular hemoglobin 31.6 pg 27.0-33.0 normal Mean Corpuscular Hemoglobin NAVEEN ([facility]) mean corpuscular HGB conc 32.8 g/dL 32.0-36.5 normal Mean Corpu scular HGB Conc NAVEEN ([facility]) red cell distribution width 11.7 % 11.5-14.5 normal Red Cell Distribution Width NAVEEN ([facility]) platelet count, automated 283 10 150-450 normal Platelet C ount, Automated NAVEEN ([facility]) eos % 0.9 % 0.0-3.0 normal Eos % NAVEEN ([facility]) mono % 8.9 % 0.0-5.0 Above high normal [place] % NAVEEN ([facility]) lymph % 35.7 % 24.0-44.0 normal Lymph % NAVEEN ([facility]) neutrophils % 53.5 % 36.0-66.0 normal Neutrophils % NAVEEN ( [facility]) neutrophils # 3.1 10 1.5-8.5 normal Neutrophils # NAVEEN ( [facility]) nucleated red blood cell % 0.0 % 0-0 normal Nucleated Red Blood Cell % NAVEEN ([facility]) immature granulocyte % 0.0 % 0-3.0 normal Immature Gran ulocyte % NAVEEN ([facility]) baso % 1.0 % 0.0-1.0 normal Baso % NAVEEN ([facility]) lymph # 2.0 10 1.5-5.0 normal Lymph # NAVEEN ([facility]) eos # 0.1 10 0.0-0.5 normal Eos # NAVEEN ([facility]) mono # 0.5 10 0.0-0.8 normal [place] # NAVEEN ([facility]) baso # 0.1 10 0.0-0.2 normal Baso # NAVEEN ([facility]) ID Date Data Source [id number] 03/30/2020 02:00:00 PM EST NAVEEN ([facility]) Name Value Range Interpretation Code Description Data Alysa rce(s) Supporting Document(s) prolactin 4.4 NG/mL normal Prolactin NAVEEN ([facility]) ID Date Data Source [id number] 03/30/2020 02:00:00 PM EST NAVEEN ([facility]) Name Value Range Interpretation Code Description Data Alysa rce(s) Supporting Document(s) thyroid stimulating hormone 0.833 uIU/mL 0.358-3.740 normal Thyroid Stimulating Hormone NAVEEN ([facility]) ID Date Data Source [id number] 03/30/2020 02:00:00 PM EST NAVEEN ([facility]) Name Value Range Interpretation Code Description Data Alysa rce(s) Supporting Document(s) creatinine for GFR 0.73 mg/dL 0.55-1.30 normal Creatinine for GF R NAVEEN ([facility]) blood urea nitrogen 11 mg/dL 7-18 normal Blood Urea Nitro gen NAVEEN ([facility]) glucose, fasting 86 mg/dL 70-100 normal Glucose, Fasting AT [facility] ([facility]) potassium serum 4.4 mEq/L 3.5-5.1 normal Potassium Serum ATHE ([facility]) glomerular filtration rate > 60.0 >60 normal Glomerula r Filtration Rate NAVEEN ([facility]) sodium level 140 mEq/L 136-145 normal Sodium Level NAVEEN ([facility]) chloride level 107 mEq/L 98-107 normal Chloride Level NAVEEN ([facility]) carbon dioxide level 29 mEq/L 21-32 normal Carbon Dioxide Level NAVEEN ([facility]) anion gap 4 mEq/L 8-16 Below low normal Anion Gap NAVEEN ( [facility]) calcium level 10.0 mg/dL 8.5-10.1 normal Calcium Level EMBUDO ( [facility]) ALT/SGPT 17 U/L 12-78 normal ALT/SGPT NAVEEN ([facility]) alkaline phosphatase 89 U/L 45-117 normal Alkaline Phosph atase NAVEEN ([facility]) AST/SGOT 10 U/L 7-37 normal AST/SGOT NAVEEN ([facility]) bilirubin,total 0.5 mg/dL 0.2-1.0 normal Bilirubin,total ATHE ([facility]) albumin 4.1 gm/dL 3.2-5.2 normal Albumin EMBUDO ([facility]) total protein 7.8 gm/dL 6.4-8.2 normal Total Protein NAVEEN ( [facility]) albumin/globulin ratio 1.2-2.2 Below low normal Albumin /globulin Ratio NAVEEN ([facility]) ID Date Data Source [id number] 03/30/2020 02:00:00 PM EST NAVEEN ([facility]) Name Value Range Interpretation Code Description Data Alysa rce(s) Supporting Document(s) white blood count 5.7 10 4.0-10.0 normal White Blood Count NAVEEN ([facility]) red blood count 4.34 10 4.00-5.40 normal Red Blood Count ATHE ([facility]) hemoglobin 13.7 g/dL 12.0-15.5 normal Hemoglobin NAVEEN ([facility]) hematocrit 41.8 % 36.0-47.0 normal Hematocrit NAVEEN ([facility]) mean corpuscular hemoglobin 31.6 pg 27.0-33.0 normal Mean Corpuscular Hemoglobin NAVEEN ([facility]) mean corpuscular HGB conc 32.8 g/dL 32.0-36.5 normal Mean Corpu scular HGB Conc NAVEEN ([facility]) mean corpuscular volume 96.3 fL 80.0-96.0 Above high normal Mean Corpuscular Volume NAVEEN ([facility]) platelet count, automated 283 10 150-450 normal Platelet C ount, Automated EMBUDO ([facility]) neutrophils % 53.5 % 36.0-66.0 normal Neutrophils % EMBUDO ( [facility]) red cell distribution width 11.7 % 11.5-14.5 normal Red Cell Distribution Width EMBUDO ([facility]) mono % 8.9 % 0.0-5.0 Above high normal [place] % NAVEEN ([facility]) eos % 0.9 % 0.0-3.0 normal Eos % NAVEEN ([facility]) lymph % 35.7 % 24.0-44.0 normal Lymph % NAVEEN ([facility]) baso % 1.0 % 0.0-1.0 normal Baso % E[facility]UDO ([facility]) immature granulocyte % 0.0 % 0-3.0 normal Immature Gran ulocyte % NAVEEN ([facility]) nucleated red blood cell % 0.0 % 0-0 normal Nucleated Red Blood Cell % NAVEEN ([facility]) neutrophils # 3.1 10 1.5-8.5 normal Neutrophils # NAVEEN ( [facility]) lymph # 2.0 10 1.5-5.0 normal Lymph # NAVEEN ([facility]) baso # 0.1 10 0.0-0.2 normal Baso # NAVEEN ([facility]) mono # 0.5 10 0.0-0.8 normal [place] # NAVEEN ([facility]) eos # 0.1 10 0.0-0.5 normal Eos # NAVEEN ([facility]) ID Date Data Source [id number] 03/30/2020 02:00:00 PM EST NAVEEN ([facility]) Name Value Range Interpretation Code Description Data Alysa rce(s) Supporting Document(s) prolactin 4.4 NG/mL normal Prolactin EMBUDO ([facility]) ID Date Data Source [id number] 03/30/2020 02:00:00 PM EST NAVEEN ([facility]) Name Value Range Interpretation Code Description Data Alysa rce(s) Supporting Document(s) thyroid stimulating hormone 0.833 uIU/mL 0.358-3.740 normal Thyroid Stimulating Hormone EMBUDO ([facility]) ID Date Data Source [id number] 03/30/2020 02:00:00 PM EST NAVEEN ([facility]) Name Value Range Interpretation Code Description Data Alysa rce(s) Supporting Document(s) glucose, fasting 86 mg/dL 70-100 normal Glucose, Fasting AT [facility] ([facility]) creatinine for GFR 0.73 mg/dL 0.55-1.30 normal Creatinine for GF R EMBUDO ([facility]) blood urea nitrogen 11 mg/dL 7-18 normal Blood Urea Nitro gen NAVEEN ([facility]) sodium level 140 mEq/L 136-145 normal Sodium Level NAVEEN ([facility]) glomerular filtration rate > 60.0 >60 normal Glomerula r Filtration Rate EMBUDO ([facility]) potassium serum 4.4 mEq/L 3.5-5.1 normal Potassium Serum ATHE ([facility]) carbon dioxide level 29 mEq/L 21-32 normal Carbon Dioxide Level NAVEEN ([facility]) chloride level 107 mEq/L 98-107 normal Chloride Level NAVEEN ([facility]) anion gap 4 mEq/L 8-16 Below low normal Anion Gap NAVEEN ( [facility]) calcium level 10.0 mg/dL 8.5-10.1 normal Calcium Level NAVEEN ( [facility]) AST/SGOT 10 U/L 7-37 normal AST/SGOT NAVEEN ([facility]) ALT/SGPT 17 U/L 12-78 normal ALT/SGPT NAVEEN ([facility]) alkaline phosphatase 89 U/L 45-117 normal Alkaline Phosph atase NAVEEN ([facility]) bilirubin,total 0.5 mg/dL 0.2-1.0 normal Bilirubin,total ATHE ([facility]) albumin 4.1 gm/dL 3.2-5.2 normal Albumin NAVEEN ([facility]) total protein 7.8 gm/dL 6.4-8.2 normal Total Protein NAVEEN ( [facility]) albumin/globulin ratio 1.2-2.2 Below low normal Albumin /globulin Ratio NAVEEN ([facility]) ID Date Data Source [id number] 03/30/2020 02:00:00 PM EST NAVEEN ([facility]) Name Value Range Interpretation Code Description Data Alysa rce(s) Supporting Document(s) hemoglobin 13.7 g/dL 12.0-15.5 normal Hemoglobin NAVEEN ([facility]) white blood count 5.7 10 4.0-10.0 normal White Blood Count NAVEEN ([facility]) red blood count 4.34 10 4.00-5.40 normal Red Blood Count ATHE ([facility]) mean corpuscular volume 96.3 fL 80.0-96.0 Above high normal Mean Corpuscular Volume NAVEEN ([facility]) hematocrit 41.8 % 36.0-47.0 normal Hematocrit NAVEEN ([facility]) mean corpuscular hemoglobin 31.6 pg 27.0-33.0 normal Mean Corpuscular Hemoglobin NAVEEN ([facility]) neutrophils % 53.5 % 36.0-66.0 normal Neutrophils % NAVEEN ( [facility]) platelet count, automated 283 10 150-450 normal Platelet C ount, Automated NAVEEN ([facility]) mean corpuscular HGB conc 32.8 g/dL 32.0-36.5 normal Mean Corpu scular HGB Conc NAVEEN ([facility]) red cell distribution width 11.7 % 11.5-14.5 normal Red Cell Distribution Width NAVEEN ([facility]) eos % 0.9 % 0.0-3.0 normal Eos % NAVEEN ([facility]) lymph % 35.7 % 24.0-44.0 normal Lymph % NAVEEN ([facility]) mono % 8.9 % 0.0-5.0 Above high normal [place] % NAVEEN ([facility]) neutrophils # 3.1 10 1.5-8.5 normal Neutrophils # NAVEEN ( [facility]) immature granulocyte % 0.0 % 0-3.0 normal Immature Gran ulocyte % NAVEEN ([facility]) baso % 1.0 % 0.0-1.0 normal Baso % NAVEEN ([facility]) nucleated red blood cell % 0.0 % 0-0 normal Nucleated Red Blood Cell % NAVEEN ([facility]) lymph # 2.0 10 1.5-5.0 normal Lymph # NAVEEN ([facility]) baso # 0.1 10 0.0-0.2 normal Baso # NAVEEN ([facility]) eos # 0.1 10 0.0-0.5 normal Eos # NAVEEN ([facility]) mono # 0.5 10 0.0-0.8 normal [place] # NAVEEN ([facility]) ID Date Data Source [id number] 03/30/2020 02:00:00 PM EST NAVEEN ([facility]) Name Value Range Interpretation Code Description Data Alysa rce(s) Supporting Document(s) prolactin 4.4 NG/mL normal Prolactin NAVEEN ([facility]) ID Date Data Source [id number] 03/30/2020 02:00:00 PM EST NAVEEN ([facility]) Name Value Range Interpretation Code Description Data Alysa rce(s) Supporting Document(s) thyroid stimulating hormone 0.833 uIU/mL 0.358-3.740 normal Thyroid Stimulating Hormone EMBUDO ([facility]) ID Date Data Source [id number] 03/30/2020 02:00:00 PM EST EMBUDO ([facility]) Name Value Range Interpretation Code Description Data Alysa rce(s) Supporting Document(s) blood urea nitrogen 11 mg/dL 7-18 normal Blood Urea Nitro gen EMBUDO ([facility]) creatinine for GFR 0.73 mg/dL 0.55-1.30 normal Creatinine for GF R EMBUDO ([facility]) glucose, fasting 86 mg/dL 70-100 normal Glucose, Fasting AT [facility]) glomerular filtration rate > 60.0 >60 normal Glomerula r Filtration Rate EMBUDO ([facility]) chloride level 107 mEq/L 98-107 normal Chloride Level EMBUDO ([facility]) potassium serum 4.4 mEq/L 3.5-5.1 normal Potassium Serum ATH NA ([facility]) sodium level 140 mEq/L 136-145 normal Sodium Level NAVEEN ([facility]) carbon dioxide level 29 mEq/L 21-32 normal Carbon Dioxide Level EMBUDO ([facility]) calcium level 10.0 mg/dL 8.5-10.1 normal Calcium Level EMBUDO ( [facility]) anion gap 4 mEq/L 8-16 Below low normal Anion Gap EMBUDO ( [facility]) AST/SGOT 10 U/L 7-37 normal AST/SGOT EMBUDO ([facility]) ALT/SGPT 17 U/L 12-78 normal ALT/SGPT EMBUDO ([facility]) alkaline phosphatase 89 U/L 45-117 normal Alkaline Phosph atase NAVEEN ([facility]) bilirubin,total 0.5 mg/dL 0.2-1.0 normal Bilirubin,total ATHE NA ([facility]) albumin 4.1 gm/dL 3.2-5.2 normal Albumin NAVEEN ([facility]) total protein 7.8 gm/dL 6.4-8.2 normal Total Protein NAVEEN ( [facility]) albumin/globulin ratio 1.2-2.2 Below low normal Albumin /globulin Ratio NAVEEN ([facility]) ID Date Data Source [id number] 03/30/2020 02:00:00 PM EST NAVEEN ([facility]) Name Value Range Interpretation Code Description Data Alysa rce(s) Supporting Document(s) red blood count 4.34 10 4.00-5.40 normal Red Blood Count ATHE ([facility]) white blood count 5.7 10 4.0-10.0 normal White Blood Count NAVEEN ([facility]) hemoglobin 13.7 g/dL 12.0-15.5 normal Hemoglobin NAVEEN ([facility]) hematocrit 41.8 % 36.0-47.0 normal Hematocrit NAVEEN ([facility]) mean corpuscular hemoglobin 31.6 pg 27.0-33.0 normal Mean Corpuscular Hemoglobin NAVEEN ([facility]) mean corpuscular volume 96.3 fL 80.0-96.0 Above high normal Mean Corpuscular Volume NAVEEN ([facility]) mean corpuscular HGB conc 32.8 g/dL 32.0-36.5 normal Mean Corpu scular HGB Conc NAVEEN ([facility]) red cell distribution width 11.7 % 11.5-14.5 normal Red Cell Distribution Width NAVEEN ([facility]) platelet count, automated 283 10 150-450 normal [facility] neutrophils % 53.5 % 36.0-66.0 normal [facility]rophils [facility] mono % 8.9 % 0.0-5.0 Above high normal [place] % NAVEEN ([facility]) eos % 0.9 % 0.0-3.0 normal Eos % NAVEEN ([facility]) baso % 1.0 % 0.0-1.0 normal Baso % NAVEEN ([facility]) lymph % 35.7 % 24.0-44.0 normal Lymph % NAVEEN ([facility]) lymph # 2.0 10 1.5-5.0 normal Lymph # NAVEEN ([facility]) neutrophils # 3.1 10 1.5-8.5 normal Neutrophils # NAVEEN ( [facility]) immature granulocyte % 0.0 % 0-3.0 normal Immature Gran ulocyte % NAVEEN ([facility]) nucleated red blood cell % 0.0 % 0-0 normal Nucleated Red Blood Cell % NAVEEN ([facility]) eos # 0.1 10 0.0-0.5 normal Eos # NAVEEN ([facility]) baso # 0.1 10 0.0-0.2 normal Baso # NAVEEN ([facility]) mono # 0.5 10 0.0-0.8 normal [place] # NAVEEN ([facility]) ID Date Data Source [id number] 03/30/2020 02:00:00 PM EST NAVEEN ([facility]) Name Value Range Interpretation Code Description Data Alysa rce(s) Supporting Document(s) prolactin 4.4 NG/mL normal Prolactin NAVEEN ([facility]) ID Date Data Source [id number] 03/30/2020 02:00:00 PM EST NAVEEN ([facility]) Name Value Range Interpretation Code Description Data Alysa rce(s) Supporting Document(s) thyroid stimulating hormone 0.833 uIU/mL 0.358-3.740 normal Thyroid Stimulating Hormone NAVEEN ([facility]) ID Date Data Source [id number] 03/30/2020 02:00:00 PM EST NAVEEN ([facility]) Name Value Range Interpretation Code Description Data Alysa rce(s) Supporting Document(s) glucose, fasting 86 mg/dL 70-100 normal Glucose, Fasting AT [facility] ([facility]) blood urea nitrogen 11 mg/dL 7-18 normal Blood Urea Nitro gen NAVEEN ([facility]) sodium level 140 mEq/L 136-145 normal Sodium Level NAVEEN ([facility]) potassium serum 4.4 mEq/L 3.5-5.1 normal Potassium Serum ATHE NA ([facility]) creatinine for GFR 0.73 mg/dL 0.55-1.30 normal Creatinine for GF R NAVEEN ([facility]) glomerular filtration rate > 60.0 >60 normal Glomerula r Filtration Rate NAVEEN ([facility]) carbon dioxide level 29 mEq/L 21-32 normal Carbon Dioxide Level NAVEEN ([facility]) chloride level 107 mEq/L 98-107 normal Chloride Level NAVEEN ([facility]) anion gap 4 mEq/L 8-16 Below low normal Anion Gap NAVEEN ( [facility]) AST/SGOT 10 U/L 7-37 normal AST/SGOT NAVEEN ([facility]) ALT/SGPT 17 U/L 12-78 normal ALT/SGPT NAVEEN ([facility]) calcium level 10.0 mg/dL 8.5-10.1 normal Calcium Level NAVEEN ( [facility]) alkaline phosphatase 89 U/L 45-117 normal Alkaline Phosph atase NAVEEN ([facility]) bilirubin,total 0.5 mg/dL 0.2-1.0 normal Bilirubin,total ATHE ([facility]) total protein 7.8 gm/dL 6.4-8.2 normal Total Protein NAVEEN ( [facility]) albumin/globulin ratio 1.2-2.2 Below low normal Albumin /globulin Ratio NAVEEN ([facility]) albumin 4.1 gm/dL 3.2-5.2 normal Albumin NAVEEN ([facility]) ID Date Data Source [id number] 03/30/2020 02:00:00 PM EST NAVEEN ([facility]) Name Value Range Interpretation Code Description Data Alysa rce(s) Supporting Document(s) white blood count 5.7 10 4.0-10.0 normal White Blood Count NAVEEN ([facility]) red blood count 4.34 10 4.00-5.40 normal Red Blood Count ATHE NA ([facility]) hemoglobin 13.7 g/dL 12.0-15.5 normal Hemoglobin NAVEEN ([facility]) hematocrit 41.8 % 36.0-47.0 normal Hematocrit NAVEEN ([facility]) red cell distribution width 11.7 % 11.5-14.5 normal Red Cell Distribution Width NAVEEN ([facility]) mean corpuscular HGB conc 32.8 g/dL 32.0-36.5 normal Mean Corpu scular HGB Conc NAVEEN ([facility]) mean corpuscular volume 96.3 fL 80.0-96.0 Above high normal Mean Corpuscular Volume NAVEEN ([facility]) mean corpuscular hemoglobin 31.6 pg 27.0-33.0 normal Mean Corpuscular Hemoglobin NAVEEN ([facility]) neutrophils % 53.5 % 36.0-66.0 normal Neutrophils % NAVEEN ( [facility]) lymph % 35.7 % 24.0-44.0 normal Lymph % NAVEEN ([facility]) platelet count, automated 283 10 150-450 normal Platelet C ount, Automated NAVEEN ([facility]) mono % 8.9 % 0.0-5.0 Above high normal [place] % NAVEEN ([facility]) eos % 0.9 % 0.0-3.0 normal Eos % NAVEEN ([facility]) baso % 1.0 % 0.0-1.0 normal Baso % NAVEEN ([facility]) nucleated red blood cell % 0.0 % 0-0 normal Nucleated Red Blood Cell % NAVEEN ([facility]) immature granulocyte % 0.0 % 0-3.0 normal Immature Gran ulocyte % NAVEEN ([facility]) neutrophils # 3.1 10 1.5-8.5 normal Neutrophils # NAVEEN ( [facility]) mono # 0.5 10 0.0-0.8 normal [place] # NAVEEN ([facility]) lymph # 2.0 10 1.5-5.0 normal Lymph # NAVEEN ([facility]) eos # 0.1 10 0.0-0.5 normal Eos # NAVEEN ([facility]) baso # 0.1 10 0.0-0.2 normal Baso # NAVEEN ([facility]) ID Date Data Source [id number] 03/30/2020 02:00:00 PM EST NAVEEN ([facility]) Name Value Range Interpretation Code Description Data Alysa rce(s) Supporting Document(s) prolactin 4.4 NG/mL normal Prolactin EMBUDO ([facility]) ID Date Data Source [id number] 03/30/2020 02:00:00 PM EST NAVEEN ([facility]) Name Value Range Interpretation Code Description Data Alysa rce(s) Supporting Document(s) thyroid stimulating hormone 0.833 uIU/mL 0.358-3.740 normal Thyroid Stimulating Hormone EMBUDO ([facility]) ID Date Data Source [id number] 03/30/2020 02:00:00 PM EST NAVEEN ([facility]) Name Value Range Interpretation Code Description Data Alysa rce(s) Supporting Document(s) glucose, fasting 86 mg/dL 70-100 normal Glucose, Fasting [facility]) blood urea nitrogen 11 mg/dL 7-18 normal Blood Urea Nitro gen NAVEEN ([facility]) creatinine for GFR 0.73 mg/dL 0.55-1.30 normal Creatinine for GF R EMBUDO ([facility]) chloride level 107 mEq/L 98-107 normal Chloride Level EMBUDO ([facility]) sodium level 140 mEq/L 136-145 normal Sodium Level NAVEEN ([facility]) glomerular filtration rate > 60.0 >60 normal Glomerula r Filtration Rate EMBUDO ([facility]) potassium serum 4.4 mEq/L 3.5-5.1 normal Potassium Serum ATHE NA ([facility]) anion gap 4 mEq/L 8-16 Below low normal Anion Gap NAVEEN ( [facility]) carbon dioxide level 29 mEq/L 21-32 normal Carbon Dioxide Level NAVEEN ([facility]) calcium level 10.0 mg/dL 8.5-10.1 normal Calcium Level NAVEEN ( [facility]) AST/SGOT 10 U/L 7-37 normal AST/SGOT NAVEEN ([facility]) bilirubin,total 0.5 mg/dL 0.2-1.0 normal Bilirubin,total ATHE NA ([facility]) alkaline phosphatase 89 U/L 45-117 normal Alkaline Phosph atase NAVEEN ([facility]) ALT/SGPT 17 U/L 12-78 normal ALT/SGPT NAVEEN ([facility]) total protein 7.8 gm/dL 6.4-8.2 normal Total Protein NAVEEN ( [facility]) albumin 4.1 gm/dL 3.2-5.2 normal Albumin NAVEEN ([facility]) albumin/globulin ratio 1.2-2.2 Below low normal Albumin /globulin Ratio NAVEEN ([facility]) ID Date Data Source [id number] 03/30/2020 02:00:00 PM EST NAVEEN ([facility]) Name Value Range Interpretation Code Description Data Alysa rce(s) Supporting Document(s) white blood count 5.7 10 4.0-10.0 normal White Blood Count NAVEEN ([facility]) red blood count 4.34 10 4.00-5.40 normal Red Blood Count ATHE ([facility]) hemoglobin 13.7 g/dL 12.0-15.5 normal Hemoglobin NAVEEN ([facility]) mean corpuscular hemoglobin 31.6 pg 27.0-33.0 normal Mean Corpuscular Hemoglobin NAVEEN ([facility]) hematocrit 41.8 % 36.0-47.0 normal Hematocrit NAVEEN ([facility]) mean corpuscular volume 96.3 fL 80.0-96.0 Above high normal Mean Corpuscular Volume NAVEEN ([facility]) mean corpuscular HGB conc 32.8 g/dL 32.0-36.5 normal Mean Corpu scular HGB Conc EMBUDO ([facility]) platelet count, automated 283 10 150-450 normal Platelet C ount, Automated NAVEEN ([facility]) red cell distribution width 11.7 % 11.5-14.5 normal Red Cell Distribution Width NAVEEN ([facility]) neutrophils % 53.5 % 36.0-66.0 normal Neutrophils % NAVEEN ( [facility]) baso % 1.0 % 0.0-1.0 normal Baso % EMBUDO ([facility]) eos % 0.9 % 0.0-3.0 normal Eos % EMBUDO ([facility]) mono % 8.9 % 0.0-5.0 Above high normal [place] % EMBUDO ([facility]) lymph % 35.7 % 24.0-44.0 normal Lymph % EMBUDO ([facility]) neutrophils # 3.1 10 1.5-8.5 normal Neutrophils # NAVEEN ( [facility]) immature granulocyte % 0.0 % 0-3.0 normal Immature Gran ulocyte % EMBUDO ([facility]) nucleated red blood cell % 0.0 % 0-0 normal Nucleated Red Blood Cell % EMBUDO ([facility]) baso # 0.1 10 0.0-0.2 normal Baso # NAVEEN ([facility]) eos # 0.1 10 0.0-0.5 normal Eos # NAVEEN ([facility]) lymph # 2.0 10 1.5-5.0 normal Lymph # NAVEEN ([facility]) mono # 0.5 10 0.0-0.8 normal [place] # EMBUDO ([facility]) ID Date Data Source [id number] 03/30/2020 02:00:00 PM EST EMBUDO ([facility]) Name Value Range Interpretation Code Description Data Alysa rce(s) Supporting Document(s) prolactin 4.4 NG/mL normal Prolactin EMBUDO ([facility]) ID Date Data Source [id number] 03/08/2020 10:45:00 AM EST [facility]) Name Value Range Interpretation Code Description Data Alysa rce(s) Supporting Document(s) SARS-CoV-2 (COVID-19) RNA [Presence] in Respiratory specimen by CEM with probe detection not detected not detected normal Sars Cov 2 RNA [facility]) ID Date Data Source [id number] 03/08/2020 10:45:00 AM EST [facility]) Name Value Range Interpretation Code Description Data Alysa rce(s) Supporting Document(s) SARS-CoV-2 (COVID-19) RNA [Presence] in Respiratory specimen by CEM with probe detection not detected not detected normal Sars Cov 2 RNA [facility]) ID Date Data Source [id number] 03/08/2020 10:45:00 AM EST [facility]) Name Value Range Interpretation Code Description Data Alysa rce(s) Supporting Document(s) SARS-CoV-2 (COVID-19) RNA [Presence] in Respiratory specimen by CEM with probe detection not detected not detected normal Sars Cov 2 RNA [facility]) ID Date Data Source [id number] 03/08/2020 10:45:00 AM EST [facility]) Name Value Range Interpretation Code Description Data Alysa rce(s) Supporting Document(s) SARS-CoV-2 (COVID-19) RNA [Presence] in Respiratory specimen by CEM with probe detection not detected not detected normal Sars Cov 2 RNA [facility]) ID Date Data Source [id number] 03/08/2020 10:45:00 AM EST [facility]) Name Value Range Interpretation Code Description Data Alysa rce(s) Supporting Document(s) SARS-CoV-2 (COVID-19) RNA [Presence] in Respiratory specimen by CEM with probe detection not detected not detected normal Sars Cov 2 RNA [facility]) ID Date Data Source [id number] 03/08/2020 10:45:00 AM EST [facility]) Name Value Range Interpretation Code Description Data Alysa rce(s) Supporting Document(s) SARS-CoV-2 (COVID-19) RNA [Presence] in Respiratory specimen by CEM with probe detection not detected not detected normal Sars Cov 2 RNA [facility]) ID Date Data Source [id number] 03/08/2020 10:45:00 AM EST [facility]) Name Value Range Interpretation Code Description Data Alysa rce(s) Supporting Document(s) SARS-CoV-2 (COVID-19) RNA [Presence] in Respiratory specimen by CEM with probe detection not detected not detected normal Sars Cov 2 RNA [facility]) ID Date Data Source [id number] 03/08/2020 10:45:00 AM EST [facility]) Name Value Range Interpretation Code Description Data Alysa rce(s) Supporting Document(s) SARS-CoV-2 (COVID-19) RNA [Presence] in Respiratory specimen by CEM with probe detection not detected not detected normal Sars Cov 2 RNA [facility]) ID Date Data Source [id number] 03/08/2020 10:45:00 AM EST [facility]) Name Value Range Interpretation Code Description Data Alysa rce(s) Supporting Document(s) SARS-CoV-2 (COVID-19) RNA [Presence] in Respiratory specimen by CEM with probe detection not detected not detected normal Sars Cov 2 RNA [facility]) ID Date Data Source [id number] 03/08/2020 10:45:00 AM EST [facility]) Name Value Range Interpretation Code Description Data Alysa rce(s) Supporting Document(s) SARS-CoV-2 (COVID-19) RNA [Presence] in Respiratory specimen by CEM with probe detection not detected not detected normal Sars Cov 2 RNA [facility]) ID Date Data Source [id number] 03/08/2020 10:45:00 AM EST [facility]) Name Value Range Interpretation Code Description Data Alysa rce(s) Supporting Document(s) SARS-CoV-2 (COVID-19) RNA [Presence] in Respiratory specimen by CEM with probe detection not detected not detected normal Sars Cov 2 RNA [facility]) ID Date Data Source [id number] 03/08/2020 10:45:00 AM EST [facility]) Name Value Range Interpretation Code Description Data Alysa rce(s) Supporting Document(s) SARS-CoV-2 (COVID-19) RNA [Presence] in Respiratory specimen by CEM with probe detection not detected not detected normal Sars Cov 2 RNA [facility]) ID Date Data Source [id number] 03/08/2020 10:45:00 AM EST [facility]) Name Value Range Interpretation Code Description Data Alysa rce(s) Supporting Document(s) SARS-CoV-2 (COVID-19) RNA [Presence] in Respiratory specimen by CEM with probe detection not detected not detected normal Sars Cov 2 RNA [facility]) ID Date Data Source [id number] 03/08/2020 10:45:00 AM EST [facility]) Name Value Range Interpretation Code Description Data Alysa rce(s) Supporting Document(s) SARS-CoV-2 (COVID-19) RNA [Presence] in Respiratory specimen by CEM with probe detection not detected not detected normal Sars Cov 2 RNA [facility]) ID Date Data Source [id number] 03/08/2020 10:45:00 AM EST [facility]) Name Value Range Interpretation Code Description Data Alysa rce(s) Supporting Document(s) SARS-CoV-2 (COVID-19) RNA [Presence] in Respiratory specimen by CEM with probe detection not detected not detected normal Sars Cov 2 RNA [facility]) ID Date Data Source [id number] 03/08/2020 10:45:00 AM EST [facility]) Name Value Range Interpretation Code Description Data Alysa rce(s) Supporting Document(s) SARS-CoV-2 (COVID-19) RNA [Presence] in Respiratory specimen by CEM with probe detection not detected not detected normal Sars Cov 2 RNA [facility]) ID Date Data Source [id number] 03/08/2020 10:45:00 AM EST [facility]) Name Value Range Interpretation Code Description Data Alysa rce(s) Supporting Document(s) SARS-CoV-2 (COVID-19) RNA [Presence] in Respiratory specimen by CEM with probe detection not detected not detected normal Sars Cov 2 RNA [facility]) ID Date Data Source [id number] 03/08/2020 10:45:00 AM EST [facility]) Name Value Range Interpretation Code Description Data Alysa rce(s) Supporting Document(s) SARS-CoV-2 (COVID-19) RNA [Presence] in Respiratory specimen by CEM with probe detection not detected not detected normal Sars Cov 2 RNA [facility]) ID Date Data Source [id number] 03/08/2020 10:45:00 AM EST [facility]) Name Value Range Interpretation Code Description Data Alysa rce(s) Supporting Document(s) SARS-CoV-2 (COVID-19) RNA [Presence] in Respiratory specimen by CEM with probe detection not detected not detected normal Sars Cov 2 RNA NAVEEN ([facility]) ID Date Data Source [id number] 03/08/2020 10:45:00 AM EST NAVEEN ([facility]) Name Value Range Interpretation Code Description Data Alysa rce(s) Supporting Document(s) SARS-CoV-2 (COVID-19) RNA [Presence] in Respiratory specimen by CEM with probe detection not detected not detected normal Sars Cov 2 RNA NAVEEN ([facility]) ID Date Data Source [id number] 01/26/2020 11:25:45 AM EDT [facility] [...] & Plan Problems:Added: Sore nipple (ICD- 780.99) (AWA33-V79.59) Assessment: left nipple sore, will get breast US as screeningDischarge from right nipple (IPX70-J92.52) Assessment: no discharge today on exam. will get labs if imaging comes back normal. could be medication side effects.Assessment not Saved Discharge from right nipple (ZRU60-D46.52): Comment Onlyno discharge today on exam. will get labs if imaging comes back normal. could be medication side effects. will proceed based on testing.Orders:Ultrasound, breast, unilateral; complete [CPT-90762] Ultrasound, breast, unilateral; complete [CPT-62870] Adult - Ofc Vst, EST, Level III [CPT- 77396] Follow-Up Return to clinic: if symptoms persist Clinical Visit Summary Declined Name Value Range Interpretation Code Description Data Alysa rce(s) Supporting Document(s) ID Date Data Source [id number] 12/13/2019 11:07:05 AM EDT [facility] Patient History Medical History:Migraine sADHDDepression /AnxietyFamily History:Anxiety (Mother)Depression (Mother)Social/Personal History: Smoking Status: former smokerCurrent Problems: Dental caries (ICD-521.00) (ICD10- K02.9)Pain in unspecified knee (ICD-719.46) (LKI47-M65.569)Low back pain (ICD- 724.2) (RBD32-F18.5)Unspecified lump in the right breast, upper outer quadrant (MNA58-J32.11)Dental caries (ICD-521.00) (WAO84-D54.9)PTSD (ICD-309.81) (ICD10- F43.10)Major depression, recurrent, moderate (ICD-296.32) (CRJ73-C10.1)Bipolar disorder, current episode depressed, mild or moderate severity, unspecified (HXA38-V84.30)Attention deficit hyperactivity disorder, combined type (ICD- 314.01) (QHZ60-H70.2)DENTAL CARIES EXTENDING INTO DENTINE (ICD-521.02) (ICD10- K02.62)DEPRESSIVE DISORDER, MAJOR, RECURRENT EPISODE, SEVERE (ICD-296.33) (UKO31-X99.2)GENERALIZED ANXIETY DISORDER (ICD-300.02) (AHQ82-C98.1)DENTAL CARIES EXTENDING INTO DENTINE (ICD-521.02) (XEL40-S24.62)Vitamin D deficiency, unspecified (NQG08-U85.9)Dental caries (ICD-521.00) (LVS32-V12.9)Encounter for screening for other metabolic disorders (DQA09-U45.228)Sinus bradycardia (ICD- 427.89) (DPW97-X69.1)Unspecified dyspareunia (VXB44-N04.10)DENTAL CARIES EXTENDING INTO DENTINE (ICD-521.02) (ZNT53-Y69.62)Dental caries (ICD-521.00) (GRR39-G36.9)Encounter for general adult medical examination with abnormal findings (ICD-V70.0) (VOX78-H77.01)Dental caries (ICD-521.00) (ICD10- K02.9)Contraception management (ICD-V25.09) (LVP37-R56.9)Tobacco use (ICD-305.1) (PJN08-T08.0)Other chlamydial genitourinary infection (DWE42-W49.19)Insect bite (nonvenomous) of left forearm, initial encounter (ICD-913.4) (ICD10- S50.862A)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 No problems or concerns today. Adult prophy- handscaled, greenlandic- mint prophy paste, floss, 4 BW'sOH-Patient is [...] AM): ; jhon (Dec 13 2019 12:29PM): [facility](-). CC: none. Reviewed Xrays. Exam: no caries [...] (11/22/2016 9:35 AM): - Tooth 24 Note: [place] anterior teeth at next filling apt. due [...] rce(s) Supporting Document(s) ID Date Data Source [id number] 11/24/2019 10:47:33 AM EDT [facility] Current Problems: Dental caries (ICD-521 .00) (GSN38-P32.9)Pain in unspecified knee (ICD-719.46) (IUS78-W53.569)Low back pain (ICD-724.2) (ICD10- M54.5)Unspecified lump in the right breast, upper outer quadrant (ICD10- N63.11)Dental caries (ICD-521.00) (PYQ81-D26.9)PTSD (ICD-309.81) (ICD10- F43.10)Major depression, recurrent, moderate (ICD-296.32) (TIE21-U38.1)Bipolar disorder, current episode depressed, mild or moderate severity, unspecified (YZX04-L32.30)Attention deficit hyperactivity disorder, combined type (ICD- 314.01) (PDM85-I72.2)DENTAL CARIES EXTENDING INTO DENTINE (ICD-521.02) (PFV95-K33.62)DEPRESSIVE DISORDER, MAJOR, RECURRENT EPISODE, SEVERE (ICD-296.33) (NRI24-W90.2)GENERALIZED ANXIETY DISORDER (ICD-300.02) (IDV37-U03.1)DENTAL CARIES EXTENDING INTO DENTINE (ICD-521.02) (AOS15-W90.62)Vitamin D deficiency, unspecified (MHK48-J65.9)Dental caries (ICD-521.00) (ONG03-D99.9)Encounter for screening for other metabolic disorders (ZMB64-H05.228)Sinus bradycardia (ICD- 427.89) (ZRJ61-U58.1)Unspecified dyspareunia (FBQ93-A28.10)DENTAL CARIES EXTENDING INTO DENTINE (ICD-521.02) (SBV17-R52.62)Dental caries (ICD-521.00) (HOY03-J18.9)Encounter for general adult medical examination with abnormal find ings (ICD-V70.0) (GGP48-K60.01)Dental caries (ICD-521.00) (ICD10- K02.9)Contraception management (ICD-V25.09) (YRD97-W59.9)Tobacco use (ICD-305.1) (XWS55-T90.0)Other chlamydial genitourinary infection (EVP24-J24.19)Insect bite (nonvenomous) of left forearm, initial encounter (ICD-913.4) (ICD10- S50.862A)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 per pt Took temp@ F. Additional [...] (11/22/2016 9:35 AM): - Tooth 24 Note: [place] anterior teeth at next filling apt. due [...] rce(s) Supporting Document(s) ID Date Data Source [id number] 11/18/2019 02:04:40 PM EDT [facility] [...] barriers: nonePatient's Language used in visit: YesLanguage: indonesian Patient History Medical History:MigrainesADHDDepression /AnxietySurgical History:Mass removed [...] during this visit, including review of any lbpz-aba-ljhpecu medications, herbal therapies, and/or supplements.Allergy ReviewAllergy List [...] in the right breast, upper outer quadrant (OOC60-K09.11) Assessment: Instructions: US after lsat visit was unactionable. Monitor.Encounter for general adult medical examination with abnormal findings (ICD-V70.0) (YAC36-K51.01) Assessment: Instructions: Medicare Annual Wellness Visit with [...] rce(s) Supporting Document(s) ID Date Data Source [id number] 11/03/2019 09:30:06 AM EDT [facility] Current Problems: Dental caries (ICD-521 .00) (SFS67-X20.9)Pain in unspecified knee (ICD-719.46) (WAP17-J58.569)Low back pain (ICD-724.2) (ICD10- M54.5)Unspecified lump in the right breast, upper outer quadrant (ICD10- N63.11)Dental caries (ICD-521.00) (ZZG80-H33.9)PTSD (ICD-309.81) (ICD10- F43.10)Major depression, recurrent, moderate (ICD-296.32) (HAS38-R90.1)Bipolar disorder, current episode depressed, mild or moderate severity, unspecified (MYP56-F31.30)Attention deficit hyperactivity disorder, combined type (ICD- 314.01) (FHC60-Q15.2)DENTAL CARIES EXTENDING INTO DENTINE (ICD-521.02) (VBH00-A07.62)DEPRESSIVE DISORDER, MAJOR, RECURRENT EPISODE, SEVERE (ICD-296.33) (FSL54-Z93.2)GENERALIZED ANXIETY DISORDER (ICD-300.02) (EBJ79-G90.1)DENTAL CARIES EXTENDING INTO DENTINE (ICD-521.02) (VKR76-W40.62)Vitamin D deficiency, unspecified (LPJ97-G23.9)Dental caries (ICD-521.00) (EAK74-G75.9)Encounter for screening for other metabolic disorders (GAZ82-C54.228)Sinus bradycardia (ICD- 427.89) (XML57-J69.1)Unspecified dyspareunia (LMM06-A13.10)DENTAL CARIES EXTENDING INTO DENTINE (ICD-521.02) (IVY61-A46.62)Dental caries (ICD-521.00) (RAB45-L65.9)Encounter for general adult medical examination with abnormal find ings (ICD-V70.0) (YSQ23-M70.01)Dental caries (ICD-521.00) (ICD10- K02.9)Contraception management (ICD-V25.09) (KIR89-E58.9)Tobacco use (ICD-305.1) (BBG54-A39.0)Other chlamydial genitourinary infection (JHP37-H64.19)Insect bite (nonvenomous) of left forearm, initial encounter (ICD-913.4) (ICD10- S50.862A)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 . Took temp@ F. Additional [...] (11/22/2016 9:35 AM): - Tooth 24 Note: [place] anterior teeth at next filling apt. due [...] rce(s) Supporting Document(s) ID Date Data Source [id number] 11/02/2019 09:47:13 AM EDT [facility] Current Problems: Dental caries (ICD-521 .00) (ZKY61-F68.9)Pain in unspecified knee (ICD-719.46) (JPR24-D44.569)Low back pain (ICD-724.2) (ICD10- M54.5)Unspecified lump in the right breast, upper outer quadrant (ICD10- N63.11)Dental caries (ICD-521.00) (XKN62-I30.9)PTSD (ICD-309.81) (ICD10- F43.10)Major depression, recurrent, moderate (ICD-296.32) (BCP84-S22.1)Bipolar disorder, current episode depressed, mild or moderate severity, unspecified (INA01-F18.30)Attention deficit hyperactivity disorder, combined type (ICD- 314.01) (NTP38-V58.2)DENTAL CARIES EXTENDING INTO DENTINE (ICD-521.02) (ASI24-I21.62)DEPRESSIVE DISORDER, MAJOR, RECURRENT EPISODE, SEVERE (ICD-296.33) (GMO71-U28.2)GENERALIZED ANXIETY DISORDER (ICD-300.02) (ELO72-S33.1)DENTAL CARIES EXTENDING INTO DENTINE (ICD-521.02) (MER78-P62.62)Vitamin D deficiency, unspecified (PWO75-N91.9)Dental caries (ICD-521.00) (JEU06-N41.9)Encounter for screening for other metabolic disorders (SSX10-E85.228)Sinus bradycardia (ICD- 427.89) (LYA89-V37.1)Unspecified dyspareunia (PJF89-W16.10)DENTAL CARIES EXTENDING INTO DENTINE (ICD-521.02) (ITT08-R27.62)Dental caries (ICD-521.00) (YMG43-B85.9)Encounter for general adult medical examination with abnormal find ings (ICD-V70.0) (CDK87-Y99.01)Dental caries (ICD-521.00) (ICD10- K02.9)Contraception management (ICD-V25.09) (ORJ51-Y60.9)Tobacco use (ICD-305.1) (SEX09-U46.0)Other chlamydial genitourinary infection (AMB82-F85.19)Insect bite (nonvenomous) of left forearm, initial encounter (ICD-913.4) (ICD10- S50.862A)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 due [...] rce(s) Supporting Document(s) ID Date Data Source [id number] 06/24/2019 10:02:47 AM EDT [facility] In-House Blood TestsDate/Time Colle cted: June 24, 2019 10:03 AMTest Result Reference Range Normal ValueComments: blood draw done in office done in the right ac tolerated well Girma Renteria APOORVA, June 24, 2019 10:03 AMAssessment & Plan Orders:64466-Axi Vst-Est Level I [CPT-43181] 57649 - Venipuncture [CPT-15001] Name Value Range Interpretation Code Description Data Alysa rce(s) Supporting Document(s) ID Date Data Source [id number] 06/24/2019 10:00:00 AM EDT [facility] Name Value Range Interpretation Code Description Data Alysa rce(s) Supporting Document(s) VIT D25 TOT 23.0 ng/mL 30.0-100.[address] [facility] BG FASTING 90 mg/dL 70-100 [facility] ID Date Data Source [id number] 06/09/2019 03:23:04 PM EST [facility] Current Problems: Pain in unspecified kn ee (ICD-719.46) (FPT38-V46.569)Low back pain (ICD-724.2) (GJI41-B36.5)Unspecified lump in the right breast, upper outer quadrant (CCU80-Z34.11)Dental caries (ICD-521.00) (UVJ47-G52.9)PTSD (ICD-309.81) (NQL26-D31.10)Major depression, recurrent, moderate (ICD-296.32) (ICD10- F33.1)Bipolar disorder, current episode depressed, mild or moderate severity, unspecified (LNT15-K82.30)Attention deficit hyperactivity disorder, combined type (ICD-314.01) (RFD96-M91.2)DENTAL CARIES EXTENDING INTO DENTINE (ICD-521.02) (ANI93-S65.62)DEPRESSIVE DISORDER, MAJOR, RECURRENT EPISODE, SEVERE (ICD-296.33) (PER14-O36.2)GENERALIZED ANXIETY DISORDER (ICD-300.02) (ZKB03-D65.1)DENTAL CARIES EXTENDING INTO DENTINE (ICD-521.02) (YPA95-S96.62)Vitamin D deficiency, unspecified (AMO10-J72.9)Dental caries (ICD-521.00) (JDE36-S10.9)Encounter for screening for other metabolic disorders (PNX63-U51.228)Sinus bradycardia (ICD- 427.89) (RZO55-J55.1)Unspecified dyspareunia (GBN36-X54.10)DENTAL CARIES EXTENDING INTO DENTINE (ICD-521.02) (HAA61-U05.62)Dental caries (ICD-521.00) (NLW47-C56.9)Encounter for general adult medical examination with abnormal findings (ICD-V70.0) (PRX05-K15.01)Dental caries (ICD-521.00) (ICD10- K02.9)Contraception management (ICD-V25.09) (KAD14-P42.9)Tobacco use (ICD-305.1) (PCB82-X52.0)Other chlamydial genitourinary infection (OAT36-A30.19)Insect bite (nonvenomous) of left forearm, initial encounter (ICD-913.4) (ICD10- S50.862A)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 CC: none. Cetacaine spray used as topical. UL infiltration 1 carp Lidocaine HCL 2% with 1:100,000 epi. Operative: # 13- MOD, #14-MODLGluma and Amalgam. Excavated with High Speed, Slow Speed and Spoon. Occlusion checked and polished. No complications. POI. Assisted by:AM. Pt was cooperative. NV: Faith.Ingris Singh DMD by jhon (06/10/2019 10:59 AM): Tooth Notes and Watches:- Tooth 11 Watch: Diana Cruz by gama (11/22/2016 9:35 AM): - Tooth 24 Note: British anterior teeth at next filling apt. due [...] rce(s) Supporting Document(s) ID Date Data Source [id number] 06/01/2019 03:29:38 PM [facility] Measurements & CalculationsHeight: 63 inches 160.02 cm [...] during this visit, including review of any zprm-yuq-pnaonvl medications, herbal therapies, and/or supplements.Allergy ReviewAllergy List [...] Plan Problems:Added: Pain in unspecified knee (ICD-719.46) (XBH38-U18.569) Assessment: Advil as needed, eat more jello Instructions: Advil as needed, eat more jelloLow back pain (ICD-724.2) (YFX38-V33.5) Assessment: FPR done with resolution of pain Instructions: FPR done with resolution of painUnspecified lump in the right breast, upper outer quadrant (KPR65-J03.11) Assessment: order US rt breast Instructions: order [...] 50 MG ORAL TABLETMedication Changes:Removed:VITAMIN D (ERGOCALCIFEROL) 38791 UNIT ORAL CAPSULE-1 po q wk for 12 wks Qty: 12[Capsule] Refills: 0, VITAMIN D 1000 UNIT ORAL TABLET-1 po daily once 50,0000 unit tabs completed in 12 wks Qty: 90[Tablet] Refills: 1, CENTRUM ADULTS ORAL TABLETAllergies:No Known Allergies (updated 05/27/2019) Orders:Ultrasound, breast, unilateral; complete [CPT-[id number]] ] Assess ment & Plan Orders:Adult - Ofc Vst, EST, Level IV [[id number]] Assess ment & Plan Orders:Adult - Ofc Vst, EST, Level IV [CPT-[id number]] Name Value Range Interpretation Code Description Data Alysa rce(s) Supporting Document(s) ID Date Data Source [id number] 05/27/2019 12:29:31 PM EST [facility] Patient History Medical History:Migraine sADHDDepression /AnxietyFamily History:Anxiety (Mother)Depression (Mother)Social/Personal History: Smoking Status: former smokerCurrent Problems: Dental caries (ICD-521.00) (ICD10- K02.9)PTSD (ICD-309.81) (CTV20-G84.10)Major depression, recurrent, moderate (ICD-296.32) (TWH12-G74.1)Bipolar disorder, current episode depressed, mild or moderate severity, unspecified (SMD00-R21.30)Attention deficit hyperactivity disorder, combined type (ICD-314.01) (UEI77-N40.2)DENTAL CARIES EXTENDING INTO DENTINE (ICD-521.02) (ZAM74-Y38.62)DEPRESSIVE DISORDER, MAJOR, RECURRENT EP ISODE, SEVERE (ICD-296.33) (WAH09-K40.2)GENERALIZED ANXIETY DISORDER (ICD- 300.02) (HZQ31-N51.1)DENTAL CARIES EXTENDING INTO DENTINE (ICD-521.02) (ICD10- K02.62)Vitamin D deficiency, unspecified (NNT87-U14.9)Dental caries (ICD-521.00) (JGN64-Z48.9)Encounter for screening for other metabolic disorders (ICD10- Z13.228)Sinus bradycardia (ICD-427.89) (JII98-Q24.1)Unspecified dyspareunia (WJY09-Z62.10)DENTAL CARIES EXTENDING INTO DENTINE (ICD-521.02) (ICD10- K02.62)Dental caries (ICD-521.00) (NHM07-R07.9)Encounter for general adult medical examination with abnormal findings (ICD-V70.0) (NCZ87-K97.01)Dental c anel (ICD-521.00) (BIO76-N06.9)Contraception management (ICD-V25.09) (ICD10- Z30.9)Tobacco use (ICD-305.1) (KTK39-F08.0)Other chlamydial genitourinary infection (VPJ28-G86.19)Insect bite (nonvenomous) of left forearm, initial encounter (ICD-913.4) (HJG60-S65.862A)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 No problems or concerns today. Adult prophy- handscaled, greenlandic- mint prophy paste, floss, 4 BW'sOH-Patient does [...] PM): ; jlam (May 27 2019 2:09PM): [facility](-). CC: none. Reviewed Xrays. Exam: caries detected. OCS: WNL IO/ EO completed, No significant hard findings upon clinical exam Pt was cooperative.OHI givenReferral: N/ANV:fillingTayla Stephenson RDH by jhon (05/27/2019 2:09 PM): Tooth Notes and Watches:- Tooth 11 Watch: MesialGerber Diana by gama (11/22/2016 9:35 AM): - Tooth 24 Note: [place] anterior teeth at next filling apt. due to roughnessWatson Leisa VEE by parminder (11/23/2018 9:54 AM): - Tooth 9 Watch: Sahra Dorsey Jackie by samuel (08/13/2018 3:15 PM): Assessment & Plan Medications:ABILIFY 15 MG ORAL TABLETTRAZODONE HCL 50 MG ORAL TABLETGABAPENTIN 600 MG ORAL TABLETVITAMIN D 1000 UNIT ORAL TABLETVITAMIN D (ERGOCALCIFEROL) 19401 UNIT ORAL CAPSULECENTRUM ADULTS ORAL TABLETSERTRALINE HCL 50 MG ORAL TABLETAllergies:No Known Allergies (updated 05/27/2019) Name Value Range Interpretation Code Description Data Alysa rce(s) Supporting Document(s) ID Date Data Source [id number] 04/27/2019 03:22:05 PM [facility] Current Problems: Dental caries (ICD-521 .00) (BNS40-W61.9)PTSD (ICD-309.81) (DWM07-S32.10)Major depression, recurrent, moderate (ICD-296.32) (ICD10- F33.1)Bipolar disorder, current episode depressed, mild or moderate severity, unspecified (MXU39-C11.30)Attention deficit hyperactivity disorder, combined type (ICD-314.01) (PTR33-B48.2)DENTAL CARIES EXTENDING INTO DENTINE (ICD-521.02) (DES88-U50.62)DEPRESSIVE DISORDER, MAJOR, RECURRENT EPISODE, SEVERE (ICD- 296.33) (WVY99-A35.2)GENERALIZED ANXIETY DISORDER (ICD-300.02) (ICD10- F41.1)DENTAL CARIES EXTENDING INTO DENTINE (ICD-521.02) (WTE93-P77.62)Vitamin D deficiency, unspecified (HUC16-Q56.9)Dental caries (ICD-521.00) (ICD10- K02.9)Encounter for screening for other metabolic disorders (CBF36-C45.228)Sinus bradycardia (ICD-427.89) (ATG06-O87.1)Unspecified dyspareunia (ICD10- N94.10)DENTAL CARIES EXTENDING INTO DENTINE (ICD-521.02) (TOO78-L31.62)Dental caries (ICD-521.00) (WBD63-P66.9)Encounter for general adult medical examination with abnormal findings (ICD-V70.0) (EJO88-E51.01)Dental caries (ICD-521.00) (TYI23-J04.9)Contraception management (ICD-V25.09) (ELD04-M02.9)Tobacco use (ICD-305.1) (FYZ70-S44.0)Other chlamydial genitourinary infection (ICD10- A56.19)Insect bite (nonvenomous) of left forearm, initial encounter (ICD-913.4) (WUL36-H07.862A)Reduction defect of left arm (ICD-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) (ICD10- Q71.92) (ICD-V22.2) (XXV85-I44.1)Anxiety (ICD-300.00) (ICD10- F41.9)Depression, major (ICD-296.20) (JMK41-J33.9)PAP SMEAR (ICD-V76.2) (ICD10- Z12.4)HEADACHE (ICD-784.0) (QNE38-U14)Problem list reviewed during this update.Current Medications: ABILIFY 10 MG ORAL TABLET (ARIPIPRAZOLE) One at hs; Route: ORALTRAZODONE HCL 50 MG ORAL TABLET (TRAZODONE HCL) One at bed time; Route: ORALGABAPENTIN 600 MG ORAL TABLET (GABAPENTIN) One at bed time; Route: ORALVITAMIN D 1000 UNIT ORAL TABLET (CHOLECALCIFEROL) 1 po daily once 50,0000 unit tabs completed in 12 wks; Route: ORALVITAMIN D (ERGOCALCIFEROL) 88224 UNIT ORAL CAPSULE (ERGOCALCIFEROL) 1 po q [...] DMD) Chart Notes:jhon (Apr 27 2019 4:34PM): [facility] (-)Per Pt. . CC: none. Cetacaine spray [...] (11/22/2016 9:35 AM): - Tooth 24 Note: [place] anterior teeth at next filling apt. due to roughnessWatson Leisa VEE by parminder (11/23/2018 9:54 AM): - Tooth 9 Watch: Sahra Dorsey Jackie by samuel (08/13/2018 3:15 PM): Assessment & Plan Problems:Added: Dental caries (ICD-521.00) (UIO34-L96.9)Medications:ABILIFY 10 MG ORAL TABLETTRAZODONE HCL 50 MG ORAL TABLETGABAPENTIN 600 MG ORAL TABLETVITAMIN D 1000 UNIT ORAL TABLETVITAMIN D (ERGOCALCIFEROL) 35883 UNIT ORAL CAPSULECENTRUM ADULTS ORAL TABLETSERTRALINE HCL 50 MG ORAL TABLETAllergies:No Known Allergies (updated 04/27/2019) Name Value Range Interpretation Code Description Data Alysa rce(s) Supporting Document(s) Procedure Vital Signs ID Date Data Source UNK Name Value Range Interpretation Code Description Data Source(s) Body weight 2150.4 [oz_av] 2150.4 [oz_av] [facility] Body mass index (BMI) [Ratio] 23.8 kg/m2 23.8 k g/m2 EMBUDO ([facility]) Body height 63 [in_i] 63 [in_i] EMBUDO ([facility]) Body weight 2150.4 [oz_av] 2150.4 [oz_av] ATH A ([facility]) Body mass index (BMI) [Ratio] 23.8 kg/m2 23.8 k g/m2 NAVEEN ([facility]) Body height 63 [in_i] 63 [in_i] NAVEEN ([facility]) Body weight 2150.4 [oz_av] 2150.4 [oz_av] ATH A ([facility]) Body mass index (BMI) [Ratio] 23.8 kg/m2 23.8 k g/m2 NAVEEN ([facility]) Body height 63 [in_i] 63 [in_i] NAVEEN ([facility]) Body weight 2150.4 [oz_av] 2150.4 [oz_av] ATH A ([facility]) Body mass index (BMI) [Ratio] 23.8 kg/m2 23.8 k g/m2 NAVEEN ([facility]) Body height 63 [in_i] 63 [in_i] NAVEEN ([facility]) Body weight 2150.4 [oz_av] 2150.4 [oz_av] ATHEN A ([facility]) Body mass index (BMI) [Ratio] 23.8 kg/m2 23.8 k g/m2 NAVEEN ([facility]) Body height 63 [in_i] 63 [in_i] NAVEEN ([facility]) Body weight 2150.4 [oz_av] 2150.4 [oz_av] ATHEN A ([facility]) Body mass index (BMI) [Ratio] 23.8 kg/m2 23.8 k g/m2 NAVEEN ([facility]) Body height 63 [in_i] 63 [in_i] NAVEEN ([facility]) Body weight 2150.4 [oz_av] 2150.4 [oz_av] ATHEN A ([facility]) Body mass index (BMI) [Ratio] 23.8 kg/m2 23.8 k g/m2 NAVEEN ([facility]) Body height 63 [in_i] 63 [in_i] NAVEEN ([facility]) Body weight 2150.4 [oz_av] 2150.4 [oz_av] ATHEN A ([facility]) Body mass index (BMI) [Ratio] 23.8 kg/m2 23.8 k g/m2 NAVEEN ([facility]) Body height 63 [in_i] 63 [in_i] NAVEEN ([facility]) Body weight 2150.4 [oz_av] 2150.4 [oz_av] ATHEN A ([facility]) Body mass index (BMI) [Ratio] 23.8 kg/m2 23.8 k g/m2 NAVEEN ([facility]) Body height 63 [in_i] 63 [in_i] NAVEEN ([facility]) Body weight 2150.4 [oz_av] 2150.4 [oz_av] ATHEN A ([facility]) Body mass index (BMI) [Ratio] 23.8 kg/m2 23.8 k g/m2 NAVEEN ([facility]) Body height 63 [in_i] 63 [in_i] NAVEEN ([facility]) Body weight 2150.4 [oz_av] 2150.4 [oz_av] ATHEN A ([facility]) Body mass index (BMI) [Ratio] 23.8 kg/m2 23.8 k g/m2 NAVEEN ([facility]) Body height 63 [in_i] 63 [in_i] NAVEEN ([facility]) Body weight 2150.4 [oz_av] 2150.4 [oz_av] ATHEN A ([facility]) Body mass index (BMI) [Ratio] 23.8 kg/m2 23.8 k g/m2 NAVEEN ([facility]) Body height 63 [in_i] 63 [in_i] NAVEEN ([facility]) Body height 63 [in_i] 63 [in_i] NAVEEN ([facility]) Body height 63 [in_i] 63 [in_i] NAVEEN ([facility]) Body height 63 [in_i] 63 [in_i] NAVEEN ([facility]) Body height 63 [in_i] 63 [in_i] NAVEEN ([facility]) Body height 63 [in_i] 63 [in_i] NAVEEN ([facility]) Body height 63 [in_i] 63 [in_i] NAVEEN ([facility]) Body height 63 [in_i] 63 [in_i] NAVEEN ([facility]) Body height 63 [in_i] 63 [in_i] NAVEEN ([facility]) Body height 63 [in_i] 63 [in_i] NAVEEN ([facility]) Body height 63 [in_i] 63 [in_i] NAVEEN ([facility]) Body height 63 [in_i] 63 [in_i] NAVEEN ([facility]) Body height 63 [in_i] 63 [in_i] NAVEEN ([facility]) Body height 63 [in_i] 63 [in_i] NAVEEN ([facility]) Body height 63 [in_i] 63 [in_i] NAVEEN ([facility]) Body height 63 [in_i] 63 [in_i] NAVEEN ([facility]) Body weight 2008 [oz_av] 2008 [oz_av] NAVEEN ([facility]) Systolic blood pressure 131 mm[Hg] 131 mm[Hg] A THEN ([facility]) Body mass index (BMI) [Ratio] 22.2 kg/m2 22.2 k g/m2 NAVEEN ([facility]) Body height 63 [in_i] 63 [in_i] NAVEEN ([facility]) Diastolic blood pressure 85 mm[Hg] 85 mm[Hg] NAVEEN ([facility]) Body weight 2008 [oz_av] 2008 [oz_av] NAVEEN ([facility]) Systolic blood pressure 131 mm[Hg] 131 mm[Hg] A [facility] ([facility]) Body mass index (BMI) [Ratio] 22.2 kg/m2 22.2 k g/m2 NAVEEN ([facility]) Body height 63 [in_i] 63 [in_i] NAVEEN ([facility]) Diastolic blood pressure 85 mm[Hg] 85 mm[Hg] NAVEEN ([facility]) Body weight 2008 [oz_av] 2008 [oz_av] NAVEEN ([facility]) Systolic blood pressure 131 mm[Hg] 131 mm[Hg] A THENA ([facility]) Body mass index (BMI) [Ratio] 22.2 kg/m2 22.2 k g/m2 NAVEEN ([facility]) Body height 63 [in_i] 63 [in_i] NAVEEN ([facility]) Diastolic blood pressure 85 mm[Hg] 85 mm[Hg] NAVEEN ([facility]) Body weight 2008 [oz_av] 2008 [oz_av] NAVEEN ([facility]) Systolic blood pressure 131 mm[Hg] 131 mm[Hg] A [facility] ([facility]) Body mass index (BMI) [Ratio] 22.2 kg/m2 22.2 k g/m2 NAVEEN ([facility]) Body height 63 [in_i] 63 [in_i] NAVEEN ([facility]) Diastolic blood pressure 85 mm[Hg] 85 mm[Hg] NAVEEN ([facility]) Body weight 2008 [oz_av] 2008 [oz_av] NAVEEN ([facility]) Systolic blood pressure 131 mm[Hg] 131 mm[Hg] A THEN ([facility]) Body mass index (BMI) [Ratio] 22.2 kg/m2 22.2 k g/m2 NAVEEN ([facility]) Body height 63 [in_i] 63 [in_i] NAVEEN ([facility]) Diastolic blood pressure 85 mm[Hg] 85 mm[Hg] NAVEEN ([facility]) Body weight 2008 [oz_av] 2008 [oz_av] NAVEEN ([facility]) Systolic blood pressure 131 mm[Hg] 131 mm[Hg] A [facility] ([facility]) Body mass index (BMI) [Ratio] 22.2 kg/m2 22.2 k g/m2 NAVEEN ([facility]) Body height 63 [in_i] 63 [in_i] NAVEEN ([facility]) Diastolic blood pressure 85 mm[Hg] 85 mm[Hg] NAVEEN ([facility]) Body weight 2008 [oz_av] 2008 [oz_av] NAVEEN ([facility]) Systolic blood pressure 131 mm[Hg] 131 mm[Hg] A THEN ([facility]) Body mass index (BMI) [Ratio] 22.2 kg/m2 22.2 k g/m2 NAVEEN ([facility]) Body height 63 [in_i] 63 [in_i] NAVEEN ([facility]) Diastolic blood pressure 85 mm[Hg] 85 mm[Hg] NAVEEN ([facility]) Body weight 2008 [oz_av] 2008 [oz_av] NAVEEN ([facility]) Systolic blood pressure 131 mm[Hg] 131 mm[Hg] A [facility] ([facility]) Body mass index (BMI) [Ratio] 22.2 kg/m2 22.2 k g/m2 NAVEEN ([facility]) Body height 63 [in_i] 63 [in_i] NAVEEN ([facility]) Diastolic blood pressure 85 mm[Hg] 85 mm[Hg] NAVEEN ([facility]) Body weight 2008 [oz_av] 2008 [oz_av] NAVEEN ([facility]) Systolic blood pressure 131 mm[Hg] 131 mm[Hg] A [facility] ([facility]) Body mass index (BMI) [Ratio] 22.2 kg/m2 22.2 k g/m2 NAVEEN ([facility]) Body height 63 [in_i] 63 [in_i] NAVEEN ([facility]) Diastolic blood pressure 85 mm[Hg] 85 mm[Hg] NAVEEN ([facility]) Body weight 2008 [oz_av] 2008 [oz_av] NAVEEN ([facility]) Systolic blood pressure 131 mm[Hg] 131 mm[Hg] A [facility] ([facility]) Body mass index (BMI) [Ratio] 22.2 kg/m2 22.2 k g/m2 NAVEEN ([facility]) Body height 63 [in_i] 63 [in_i] NAVEEN ([facility]) Diastolic blood pressure 85 mm[Hg] 85 mm[Hg] NAVEEN ([facility]) Body weight 2008 [oz_av] 2008 [oz_av] NAVEEN ([facility]) Systolic blood pressure 131 mm[Hg] 131 mm[Hg] A [facility] ([facility]) Body mass index (BMI) [Ratio] 22.2 kg/m2 22.2 k g/m2 NAVEEN ([facility]) Body height 63 [in_i] 63 [in_i] NAVEEN ([facility]) Diastolic blood pressure 85 mm[Hg] 85 mm[Hg] NAVEEN ([facility]) Body weight 2008 [oz_av] 2008 [oz_av] NAVEEN ([facility]) Systolic blood pressure 131 mm[Hg] 131 mm[Hg] A [facility] ([facility]) Body mass index (BMI) [Ratio] 22.2 kg/m2 22.2 k g/m2 NAVEEN ([facility]) Body height 63 [in_i] 63 [in_i] NAVEEN ([facility]) Diastolic blood pressure 85 mm[Hg] 85 mm[Hg] NAVEEN ([facility]) Body weight 2008 [oz_av] 2008 [oz_av] NAVEEN ([facility]) Systolic blood pressure 131 mm[Hg] 131 mm[Hg] A [facility] ([facility]) Body mass index (BMI) [Ratio] 22.2 kg/m2 22.2 k g/m2 NAVEEN ([facility]) Body height 63 [in_i] 63 [in_i] NAVEEN ([facility]) Diastolic blood pressure 85 mm[Hg] 85 mm[Hg] NAVEEN ([facility]) Body weight 2008 [oz_av] 2008 [oz_av] NAVEEN ([facility]) Systolic blood pressure 131 mm[Hg] 131 mm[Hg] A [facility] ([facility]) Body mass index (BMI) [Ratio] 22.2 kg/m2 22.2 k g/m2 NAVEEN ([facility]) Body height 63 [in_i] 63 [in_i] NAVEEN ([facility]) Diastolic blood pressure 85 mm[Hg] 85 mm[Hg] NAVEEN ([facility]) Body weight 2008 [oz_av] 2008 [oz_av] NAVEEN ([facility]) Systolic blood pressure 131 mm[Hg] 131 mm[Hg] A [facility] ([facility]) Body mass index (BMI) [Ratio] 22.2 kg/m2 22.2 k g/m2 NAVEEN ([facility]) Body height 63 [in_i] 63 [in_i] NAVEEN ([facility]) Diastolic blood pressure 85 mm[Hg] 85 mm[Hg] NAVEEN ([facility]) Body weight 2008 [oz_av] 2008 [oz_av] NAVEEN ([facility]) Systolic blood pressure 131 mm[Hg] 131 mm[Hg] A [facility] ([facility]) Body mass index (BMI) [Ratio] 22.2 kg/m2 22.2 k g/m2 NAVEEN ([facility]) Body height 63 [in_i] 63 [in_i] NAVEEN ([facility]) Diastolic blood pressure 85 mm[Hg] 85 mm[Hg] NAVEEN ([facility]) Body weight 2008 [oz_av] 2008 [oz_av] NAVEEN ([facility]) Systolic blood pressure 131 mm[Hg] 131 mm[Hg] A THENA ([facility]) Body mass index (BMI) [Ratio] 22.2 kg/m2 22.2 k g/m2 NAVEEN ([facility]) Body height 63 [in_i] 63 [in_i] NAVEEN ([facility]) Diastolic blood pressure 85 mm[Hg] 85 mm[Hg] NAVEEN ([facility]) Body weight 2008 [oz_av] 2008 [oz_av] NAVEEN ([facility]) Systolic blood pressure 131 mm[Hg] 131 mm[Hg] A [facility] ([facility]) Body mass index (BMI) [Ratio] 22.2 kg/m2 22.2 k g/m2 NAVEEN ([facility]) Body height 63 [in_i] 63 [in_i] NAVEEN ([facility]) Diastolic blood pressure 85 mm[Hg] 85 mm[Hg] NAVEEN ([facility]) Body weight 2008 [oz_av] 2008 [oz_av] NAVEEN ([facility]) Systolic blood pressure 131 mm[Hg] 131 mm[Hg] A THENA ([facility]) Body mass index (BMI) [Ratio] 22.2 kg/m2 22.2 k g/m2 NAVEEN ([facility]) Body height 63 [in_i] 63 [in_i] NAVEEN ([facility]) Diastolic blood pressure 85 mm[Hg] 85 mm[Hg] NAVEEN ([facility]) Body weight 2008 [oz_av] 2008 [oz_av] NAVEEN ([facility]) Systolic blood pressure 131 mm[Hg] 131 mm[Hg] A THENA ([facility]) Body mass index (BMI) [Ratio] 22.2 kg/m2 22.2 k g/m2 NAVEEN ([facility]) Body height 63 [in_i] 63 [in_i] NAVEEN ([facility]) Diastolic blood pressure 85 mm[Hg] 85 mm[Hg] NAVEEN ([facility]) Body weight 2008 [oz_av] 2008 [oz_av] NAVEEN ([facility]) Systolic blood pressure 131 mm[Hg] 131 mm[Hg] A THENA ([facility]) Body mass index (BMI) [Ratio] 22.2 kg/m2 22.2 k g/m2 NAVEEN ([facility]) Body height 63 [in_i] 63 [in_i] NAVEEN ([facility]) Diastolic blood pressure 85 mm[Hg] 85 mm[Hg] NAVEEN ([facility]) Body weight 2150.08 [oz_av] 2150.08 [oz_av] ATH BRISEIDA ([facility]) Systolic blood pressure 105 mm[Hg] 105 mm[Hg] A THENA ([facility]) Body mass index (BMI) [Ratio] 23.89 kg/m2 23.89 kg/m2 NAVEEN ([facility]) Body height 63 [in_i] 63 [in_i] NAVEEN ([facility]) Diastolic blood pressure 71 mm[Hg] 71 mm[Hg] NAVEEN ([facility]) Body weight 2150.08 [oz_av] 2150.08 [oz_av] ATH BRISEIDA ([facility]) Systolic blood pressure 105 mm[Hg] 105 mm[Hg] A THENA ([facility]) Body mass index (BMI) [Ratio] 23.89 kg/m2 23.89 kg/m2 NAVEEN ([facility]) Body height 63 [in_i] 63 [in_i] NAVEEN ([facility]) Diastolic blood pressure 71 mm[Hg] 71 mm[Hg] NAVEEN ([facility]) Body weight 2150.08 [oz_av] 2150.08 [oz_av] ATH BRISEIDA ([facility]) Systolic blood pressure 105 mm[Hg] 105 mm[Hg] A THENA ([facility]) Body mass index (BMI) [Ratio] 23.89 kg/m2 23.89 kg/m2 NAVEEN ([facility]) Body height 63 [in_i] 63 [in_i] NAVEEN ([facility]) Diastolic blood pressure 71 mm[Hg] 71 mm[Hg] NAVEEN ([facility]) Body weight 2150.08 [oz_av] 2150.08 [oz_av] ATH BRISEIDA ([facility]) Systolic blood pressure 105 mm[Hg] 105 mm[Hg] A THENA ([facility]) Body mass index (BMI) [Ratio] 23.89 kg/m2 23.89 kg/m2 NAVEEN ([facility]) Body height 63 [in_i] 63 [in_i] NAVEEN ([facility]) Diastolic blood pressure 71 mm[Hg] 71 mm[Hg] NAVEEN ([facility]) Body weight 2150.08 [oz_av] 2150.08 [oz_av] ATH BRISEIDA ([facility]) Systolic blood pressure 105 mm[Hg] 105 mm[Hg] A THENA ([facility]) Body mass index (BMI) [Ratio] 23.89 kg/m2 23.89 kg/m2 NAVEEN ([facility]) Body height 63 [in_i] 63 [in_i] NAVEEN ([facility]) Diastolic blood pressure 71 mm[Hg] 71 mm[Hg] NAVEEN ([facility]) Body weight 2150.08 [oz_av] 2150.08 [oz_av] ATH BRISEIDA ([facility]) Systolic blood pressure 105 mm[Hg] 105 mm[Hg] A THENA ([facility]) Body mass index (BMI) [Ratio] 23.89 kg/m2 23.89 kg/m2 NAVEEN ([facility]) Body height 63 [in_i] 63 [in_i] NAVEEN ([facility]) Diastolic blood pressure 71 mm[Hg] 71 mm[Hg] NAVEEN ([facility]) Body weight 2150.08 [oz_av] 2150.08 [oz_av] ATH BRISEIDA ([facility]) Systolic blood pressure 105 mm[Hg] 105 mm[Hg] A THENA ([facility]) Body mass index (BMI) [Ratio] 23.89 kg/m2 23.89 kg/m2 NAVEEN ([facility]) Body height 63 [in_i] 63 [in_i] NAVEEN ([facility]) Diastolic blood pressure 71 mm[Hg] 71 mm[Hg] NAVEEN ([facility]) Body weight 2150.08 [oz_av] 2150.08 [oz_av] ATH BRISEIDA ([facility]) Systolic blood pressure 105 mm[Hg] 105 mm[Hg] A THENA ([facility]) Body mass index (BMI) [Ratio] 23.89 kg/m2 23.89 kg/m2 NAVEEN ([facility]) Body height 63 [in_i] 63 [in_i] NAVEEN ([facility]) Diastolic blood pressure 71 mm[Hg] 71 mm[Hg] NAVEEN ([facility]) Body weight 2150.08 [oz_av] 2150.08 [oz_av] ATH BRISEIDA ([facility]) Systolic blood pressure 105 mm[Hg] 105 mm[Hg] A THENA ([facility]) Body mass index (BMI) [Ratio] 23.89 kg/m2 23.89 kg/m2 NAVEEN ([facility]) Body height 63 [in_i] 63 [in_i] NAVEEN ([facility]) Diastolic blood pressure 71 mm[Hg] 71 mm[Hg] NAVEEN ([facility]) Body weight 2150.08 [oz_av] 2150.08 [oz_av] ATH BRISEIDA ([facility]) Systolic blood pressure 105 mm[Hg] 105 mm[Hg] A THENA ([facility]) Body mass index (BMI) [Ratio] 23.89 kg/m2 23.89 kg/m2 NAVEEN ([facility]) Body height 63 [in_i] 63 [in_i] NAVEEN ([facility]) Diastolic blood pressure 71 mm[Hg] 71 mm[Hg] NAVEEN ([facility]) Body weight 2082.08 [oz_av] 2082.08 [oz_av] ATH BRISEIDA ([facility]) Systolic blood pressure 99 mm[Hg] 99 mm[Hg] A THENA ([facility]) Body weight 2082.08 [oz_av] 2082.08 [oz_av] ATH BRISEIDA ([facility]) Systolic blood pressure 99 mm[Hg] 99 mm[Hg] A [facility] ([facility]) Body mass index (BMI) [Ratio] 23.13 kg/m2 23.13 kg/m2 NAVEEN ([facility]) Body height 63 [in_i] 63 [in_i] NAVEEN ([facility]) Diastolic blood pressure 64 mm[Hg] 64 mm[Hg] NAVEEN ([facility]) Body mass index (BMI) [Ratio] 23.13 kg/m2 23.13 kg/m2 NAVEEN ([facility]) Body height 63 [in_i] 63 [in_i] NAVEEN ([facility]) Diastolic blood pressure 64 mm[Hg] 64 mm[Hg] NAVEEN ([facility]) Body weight 2082.08 [oz_av] 2082.08 [oz_av] ATH BRISEIDA ([facility]) Systolic blood pressure 99 mm[Hg] 99 mm[Hg] A [facility] ([facility]) Body mass index (BMI) [Ratio] 23.13 kg/m2 23.13 kg/m2 NAVEEN ([facility]) Body height 63 [in_i] 63 [in_i] NAVEEN ([facility]) Diastolic blood pressure 64 mm[Hg] 64 mm[Hg] NAVEEN ([facility]) Body weight 2082.08 [oz_av] 2082.08 [oz_av] ATH BRISEIDA ([facility]) Systolic blood pressure 99 mm[Hg] 99 mm[Hg] A THENA ([facility]) Body mass index (BMI) [Ratio] 23.13 kg/m2 23.13 kg/m2 NAVEEN ([facility]) Body height 63 [in_i] 63 [in_i] NAVEEN ([facility]) Diastolic blood pressure 64 mm[Hg] 64 mm[Hg] NAVEEN ([facility]) Body weight 2082.08 [oz_av] 2082.08 [oz_av] ATH BRISEIDA ([facility]) Systolic blood pressure 99 mm[Hg] 99 mm[Hg] A THEN ([facility]) Body mass index (BMI) [Ratio] 23.13 kg/m2 23.13 kg/m2 NAVEEN ([facility]) Body height 63 [in_i] 63 [in_i] NAVEEN ([facility]) Diastolic blood pressure 64 mm[Hg] 64 mm[Hg] NAVEEN ([facility]) Body weight 2082.08 [oz_av] 2082.08 [oz_av] ATH BRISEIDA ([facility]) Systolic blood pressure 99 mm[Hg] 99 mm[Hg] A [facility] ([facility]) Body mass index (BMI) [Ratio] 23.13 kg/m2 23.13 kg/m2 NAVEEN ([facility]) Body height 63 [in_i] 63 [in_i] NAVEEN ([facility]) Diastolic blood pressure 64 mm[Hg] 64 mm[Hg] NAVEEN ([facility]) Body weight 2082.08 [oz_av] 2082.08 [oz_av] ATH BRISEIDA ([facility]) Systolic blood pressure 99 mm[Hg] 99 mm[Hg] A [facility] ([facility]) Body mass index (BMI) [Ratio] 23.13 kg/m2 23.13 kg/m2 NAVEEN ([facility]) Body height 63 [in_i] 63 [in_i] NAVEEN ([facility]) Diastolic blood pressure 64 mm[Hg] 64 mm[Hg] NAVEEN ([facility]) Body weight 2082.08 [oz_av] 2082.08 [oz_av] ATH BRISEIDA ([facility]) Systolic blood pressure 99 mm[Hg] 99 mm[Hg] A THENA ([facility]) Body mass index (BMI) [Ratio] 23.13 kg/m2 23.13 kg/m2 NAVEEN ([facility]) Body height 63 [in_i] 63 [in_i] NAVEEN ([facility]) Diastolic blood pressure 64 mm[Hg] 64 mm[Hg] NAVEEN ([facility]) Body weight 2082.08 [oz_av] 2082.08 [oz_av] ATH BRISEIDA ([facility]) Systolic blood pressure 99 mm[Hg] 99 mm[Hg] A [facility] ([facility]) Body mass index (BMI) [Ratio] 23.13 kg/m2 23.13 kg/m2 NAVEEN ([facility]) Body height 63 [in_i] 63 [in_i] NAVEEN ([facility]) Diastolic blood pressure 64 mm[Hg] 64 mm[Hg] NAVEEN ([facility]) Body weight 2082.08 [oz_av] 2082.08 [oz_av] ATH BRISEIDA ([facility]) Systolic blood pressure 99 mm[Hg] 99 mm[Hg] A [facility] ([facility]) Body height 63 [in_i] 63 [in_i] NAVEEN ([facility]) Diastolic blood pressure 64 mm[Hg] 64 mm[Hg] NAVEEN ([facility]) Body weight 2082.08 [oz_av] 2082.08 [oz_av] ATH BRISEIDA ([facility]) Systolic blood pressure 99 mm[Hg] 99 mm[Hg] A [facility] ([facility]) Body height 63 [in_i] 63 [in_i] NAVEEN ([facility]) Diastolic blood pressure 64 mm[Hg] 64 mm[Hg] NAVEEN ([facility]) Body weight 2082.08 [oz_av] 2082.08 [oz_av] ATH BRISEIDA ([facility]) Systolic blood pressure 99 mm[Hg] 99 mm[Hg] A [facility] ([facility]) Body height 63 [in_i] 63 [in_i] NAVEEN ([facility]) Diastolic blood pressure 64 mm[Hg] 64 mm[Hg] NAVEEN ([facility]) Body weight 2082.08 [oz_av] 2082.08 [oz_av] ATH BRISEIDA ([facility]) Systolic blood pressure 99 mm[Hg] 99 mm[Hg] A THENA ([facility]) Body height 63 [in_i] 63 [in_i] NAVEEN ([facility]) Diastolic blood pressure 64 mm[Hg] 64 mm[Hg] NAVEEN ([facility]) Body weight 2082.08 [oz_av] 2082.08 [oz_av] ATH BRISEIDA ([facility]) Systolic blood pressure 99 mm[Hg] 99 mm[Hg] A [facility] ([facility]) Body height 63 [in_i] 63 [in_i] NAVEEN ([facility]) Diastolic blood pressure 64 mm[Hg] 64 mm[Hg] NAVEEN ([facility]) Body weight 2082.08 [oz_av] 2082.08 [oz_av] ATH BRISEIDA ([facility]) Systolic blood pressure 99 mm[Hg] 99 mm[Hg] A THENA ([facility]) Body height 63 [in_i] 63 [in_i] NAVEEN ([facility]) Diastolic blood pressure 64 mm[Hg] 64 mm[Hg] NAVEEN ([facility]) Body weight 2082.08 [oz_av] 2082.08 [oz_av] ATH BRISEIDA ([facility]) Systolic blood pressure 99 mm[Hg] 99 mm[Hg] A [facility] ([facility]) Body height 63 [in_i] 63 [in_i] NAVEEN ([facility]) Diastolic blood pressure 64 mm[Hg] 64 mm[Hg] NAVEEN ([facility]) Body weight 2082.08 [oz_av] 2082.08 [oz_av] ATH BRISEIDA ([facility]) Systolic blood pressure 99 mm[Hg] 99 mm[Hg] A [facility] ([facility]) Body height 63 [in_i] 63 [in_i] NAVEEN ([facility]) Diastolic blood pressure 64 mm[Hg] 64 mm[Hg] NAVEEN ([facility]) Body weight 2082.08 [oz_av] 2082.08 [oz_av] ATH BRISEIDA ([facility]) Systolic blood pressure 99 mm[Hg] 99 mm[Hg] A [facility] ([facility]) Body height 63 [in_i] 63 [in_i] NAVEEN ([facility]) Diastolic blood pressure 64 mm[Hg] 64 mm[Hg] NAVEEN ([facility]) Body weight 2082.08 [oz_av] 2082.08 [oz_av] ATH BRISEIDA ([facility]) Systolic blood pressure 99 mm[Hg] 99 mm[Hg] A [facility] ([facility]) Body height 63 [in_i] 63 [in_i] NAVEEN ([facility]) Diastolic blood pressure 64 mm[Hg] 64 mm[Hg] NAVEEN ([facility]) Body weight 2082.08 [oz_av] 208.08 [oz_av] ATH BRISEIDA ([facility]) Systolic blood pressure 99 mm[Hg] 99 mm[Hg] A THENA ([facility]) Body mass index (BMI) [Ratio] 23.13 kg/m2 23.13 kg/m2 NAVEEN ([facility]) Body height 63 [in_i] 63 [in_i] NAVEEN ([facility]) Diastolic blood pressure 64 mm[Hg] 64 mm[Hg] NAVEEN ([facility]) Body weight 2081.08 [oz_av] 208.08 [oz_av] ATH BRISEIDA ([facility]) Systolic blood pressure 99 mm[Hg] 99 mm[Hg] A [facility] ([facility]) Body height 63 [in_i] 63 [in_i] NAVEEN ([facility]) Diastolic blood pressure 64 mm[Hg] 64 mm[Hg] NAVEEN ([facility]) Body weight 2.08 [oz_av] 2081.08 [oz_av] ATH BRISEIDA ([facility]) Systolic blood pressure 99 mm[Hg] 99 mm[Hg] A [facility] ([facility]) Body height 63 [in_i] 63 [in_i] NAVEEN ([facility]) Diastolic blood pressure 64 mm[Hg] 64 mm[Hg] NAVEEN ([facility]) Body weight 2.08 [oz_av] 2082.08 [oz_av] ATH BRISEIDA ([facility]) Systolic blood pressure 99 mm[Hg] 99 mm[Hg] A [facility] ([facility]) Body height 63 [in_i] 63 [in_i] NAVEEN ([facility]) Diastolic blood pressure 64 mm[Hg] 64 mm[Hg] NAVEEN ([facility]) Body weight 2.08 [oz_av] 208.08 [oz_av] ATH BRISEIDA ([facility]) Systolic blood pressure 99 mm[Hg] 99 mm[Hg] A THENA ([facility]) Body height 63 [in_i] 63 [in_i] NAVEEN ([facility]) Diastolic blood pressure 64 mm[Hg] 64 mm[Hg] NAVEEN ([facility]) Body weight 2104 [oz_av] 2104 [oz_av] NAVEEN ([facility]) Body mass index (BMI) [Ratio] 23.38 kg/m2 23.38 kg/m2 NAVEEN ([facility]) Body height 63 [in_i] 63 [in_i] NAVEEN ([facility]) Body weight 2104 [oz_av] 2104 [oz_av] NAVEEN ([facility]) Body mass index (BMI) [Ratio] 23.38 kg/m2 23.38 kg/m2 NAVEEN ([facility]) Body height 63 [in_i] 63 [in_i] NAVEEN ([facility]) Body weight 2104 [oz_av] 2104 [oz_av] NAVEEN ([facility]) Body mass index (BMI) [Ratio] 23.38 kg/m2 23.38 kg/m2 NAVEEN ([facility]) Body height 63 [in_i] 63 [in_i] NAVEEN ([facility]) Body weight 2104 [oz_av] 2104 [oz_av] NAVEEN ([facility]) Body mass index (BMI) [Ratio] 23.38 kg/m2 23.38 kg/m2 NAVEEN ([facility]) Body height 63 [in_i] 63 [in_i] NAVEEN ([facility]) Body weight 2104 [oz_av] 2104 [oz_av] NAVEEN ([facility]) Body mass index (BMI) [Ratio] 23.38 kg/m2 23.38 kg/m2 NAVEEN ([facility]) Body height 63 [in_i] 63 [in_i] NAVEEN ([facility]) Body weight 2104 [oz_av] 2104 [oz_av] NAVEEN ([facility]) Body mass index (BMI) [Ratio] 23.38 kg/m2 23.38 kg/m2 NAVEEN ([facility]) Body height 63 [in_i] 63 [in_i] NAVEEN ([facility]) Body weight 2104 [oz_av] 2104 [oz_av] NAVEEN ([facility]) Body mass index (BMI) [Ratio] 23.38 kg/m2 23.38 kg/m2 NAVEEN ([facility]) Body height 63 [in_i] 63 [in_i] NAVEEN ([facility]) Body weight 2104 [oz_av] 2104 [oz_av] NAVEEN ([facility]) Body mass index (BMI) [Ratio] 23.38 kg/m2 23.38 kg/m2 NAVEEN ([facility]) Body height 63 [in_i] 63 [in_i] NAVEEN ([facility]) Body weight 2104 [oz_av] 2104 [oz_av] NAVEEN ([facility]) Body mass index (BMI) [Ratio] 23.38 kg/m2 23.38 kg/m2 NAVEEN ([facility]) Body height 63 [in_i] 63 [in_i] NAVEEN ([facility]) Body weight 2104 [oz_av] 2104 [oz_av] NAVEEN ([facility]) Body height 63 [in_i] 63 [in_i] NAVEEN ([facility]) Body weight 2104 [oz_av] 2104 [oz_av] NAVEEN ([facility]) Body height 63 [in_i] 63 [in_i] NAVEEN ([facility]) Body weight 2104 [oz_av] 2104 [oz_av] NAVEEN ([facility]) Body height 63 [in_i] 63 [in_i] NAVEEN ([facility]) Body weight 2104 [oz_av] 2104 [oz_av] NAVEEN ([facility]) Body height 63 [in_i] 63 [in_i] NAVEEN ([facility]) Body weight 2104 [oz_av] 2104 [oz_av] NAVEEN ([facility]) Body height 63 [in_i] 63 [in_i] NAVEEN ([facility]) Body weight 2104 [oz_av] 2104 [oz_av] NAVEEN ([facility]) Body height 63 [in_i] 63 [in_i] NAVEEN ([facility]) Body weight 2104 [oz_av] 2104 [oz_av] NAVEEN ([facility]) Body height 63 [in_i] 63 [in_i] NAVEEN ([facility]) Body weight 2104 [oz_av] 2104 [oz_av] NAVEEN ([facility]) Body height 63 [in_i] 63 [in_i] NAVEEN ([facility]) Body weight 2104 [oz_av] 2104 [oz_av] NAVEEN ([facility]) Body height 63 [in_i] 63 [in_i] NAVEEN ([facility]) Body weight 2104 [oz_av] 2104 [oz_av] NAVEEN ([facility]) Body height 63 [in_i] 63 [in_i] NAVEEN ([facility]) Body weight 2104 [oz_av] 2104 [oz_av] NAVEEN ([facility]) Body mass index (BMI) [Ratio] 23.38 kg/m2 23.38 kg/m2 NAVEEN ([facility]) Body height 63 [in_i] 63 [in_i] NAVEEN ([facility]) Body weight 2104 [oz_av] 2104 [oz_av] NAVEEN ([facility]) Body height 63 [in_i] 63 [in_i] NAVEEN ([facility]) Body weight 2104 [oz_av] 2104 [oz_av] NAVEEN ([facility]) Body height 63 [in_i] 63 [in_i] NAVEEN ([facility]) Body weight 2104 [oz_av] 2104 [oz_av] NAVEEN ([facility]) Body height 63 [in_i] 63 [in_i] NAVEEN ([facility]) Body weight 2104 [oz_av] 210 [oz_av] NAVEEN ([facility]) Body height 63 [in_i] 63 [in_i] NAVEEN ([facility]) Body weight 2095 [oz_av] 209 [oz_av] NAVEEN ([facility]) Body mass index (BMI) [Ratio] 23.29 kg/m2 23.29 kg/m2 NAVEEN ([facility]) Body height 63 [in_i] 63 [in_i] NAVEEN ([facility]) Body weight 2095 [oz_av] 2096 [oz_av] NAVEEN ([facility]) Body mass index (BMI) [Ratio] 23.29 kg/m2 23.29 kg/m2 NAVEEN ([facility]) Body height 63 [in_i] 63 [in_i] NAVEEN ([facility]) Body weight 2095 [oz_av] 2096 [oz_av] NAVEEN ([facility]) Body mass index (BMI) [Ratio] 23.29 kg/m2 23.29 kg/m2 NAVEEN ([facility]) Body height 63 [in_i] 63 [in_i] NAVEEN ([facility]) Body weight 2095 [oz_av] 2096 [oz_av] NAVEEN ([facility]) Body mass index (BMI) [Ratio] 23.29 kg/m2 23.29 kg/m2 NAVEEN ([facility]) Body height 63 [in_i] 63 [in_i] NAVEEN ([facility]) Body weight 2095 [oz_av] 209 [oz_av] NAVEEN ([facility]) Body mass index (BMI) [Ratio] 23.29 kg/m2 23.29 kg/m2 NAVEEN ([facility]) Body height 63 [in_i] 63 [in_i] NAVEEN ([facility]) Body weight 2095 [oz_av] 2096 [oz_av] NAVEEN ([facility]) Body mass index (BMI) [Ratio] 23.29 kg/m2 23.29 kg/m2 NAVEEN ([facility]) Body height 63 [in_i] 63 [in_i] NAVEEN ([facility]) Body weight 2095 [oz_av] 2096 [oz_av] NAVEEN ([facility]) Body mass index (BMI) [Ratio] 23.29 kg/m2 23.29 kg/m2 NAVEEN ([facility]) Body height 63 [in_i] 63 [in_i] NAVEEN ([facility]) Body weight 2095 [oz_av] 2096 [oz_av] NAVEEN ([facility]) Body mass index (BMI) [Ratio] 23.29 kg/m2 23.29 kg/m2 NAVEEN ([facility]) Body height 63 [in_i] 63 [in_i] NAVEEN ([facility]) Body weight 2095 [oz_av] 2096 [oz_av] NAVEEN ([facility]) Body mass index (BMI) [Ratio] 23.29 kg/m2 23.29 kg/m2 NAVEEN ([facility]) Body height 63 [in_i] 63 [in_i] NAVEEN ([facility]) Body weight 2095 [oz_av] 2096 [oz_av] NAVEEN ([facility]) Body height 63 [in_i] 63 [in_i] NAVEEN ([facility]) Body weight 2095 [oz_av] 2096 [oz_av] NAVEEN ([facility]) Body height 63 [in_i] 63 [in_i] NAVEEN ([facility]) Body weight 2095 [oz_av] 2096 [oz_av] NAVEEN ([facility]) Body height 63 [in_i] 63 [in_i] NAVEEN ([facility]) Body weight 2096 [oz_av] 2096 [oz_av] NAVEEN ([facility]) Body height 63 [in_i] 63 [in_i] NAVEEN ([facility]) Body weight 2096 [oz_av] 2096 [oz_av] NAVEEN ([facility]) Body height 63 [in_i] 63 [in_i] NAVEEN ([facility]) Body weight 2095 [oz_av] 2096 [oz_av] NAVEEN ([facility]) Body height 63 [in_i] 63 [in_i] NAVEEN ([facility]) Body weight 2095 [oz_av] 2096 [oz_av] NAVEEN ([facility]) Body height 63 [in_i] 63 [in_i] NAVEEN ([facility]) Body weight 2095 [oz_av] 2096 [oz_av] NAVEEN ([facility]) Body height 63 [in_i] 63 [in_i] NAVEEN ([facility]) Body weight 209 [oz_av] 2096 [oz_av] NAVEEN ([facility]) Body height 63 [in_i] 63 [in_i] NAVEEN ([facility]) Body weight 2095 [oz_av] 2096 [oz_av] NAVEEN ([facility]) Body height 63 [in_i] 63 [in_i] NAVEEN ([facility]) Body weight 2095 [oz_av] 2096 [oz_av] NAVEEN ([facility]) Body mass index (BMI) [Ratio] 23.29 kg/m2 23.29 kg/m2 NAVEEN ([facility]) Body height 63 [in_i] 63 [in_i] NAVEEN ([facility]) Body weight 2095 [oz_av] 2096 [oz_av] NAVEEN ([facility]) Body height 63 [in_i] 63 [in_i] NAVEEN ([facility]) Body weight 2095 [oz_av] 2096 [oz_av] NAVEEN ([facility]) Body height 63 [in_i] 63 [in_i] NAVEEN ([facility]) Body weight 2096 [oz_av] 2096 [oz_av] NAVEEN ([facility]) Body height 63 [in_i] 63 [in_i] NAVEEN ([facility]) Body weight 2096 [oz_av] 2096 [oz_av] NAVEEN ([facility]) Body height 63 [in_i] 63 [in_i] NAVEEN ([facility]) Body weight 2116 [oz_av] 2116 [oz_av] NAVEEN ([facility]) Body mass index (BMI) [Ratio] 23.51 kg/m2 23.51 kg/m2 NAVEEN ([facility]) Body height 63 [in_i] 63 [in_i] NAVEEN ([facility]) Body weight 2116 [oz_av] 2116 [oz_av] NAVEEN ([facility]) Body mass index (BMI) [Ratio] 23.51 kg/m2 23.51 kg/m2 NAVEEN ([facility]) Body height 63 [in_i] 63 [in_i] NAVEEN ([facility]) Body weight 2116 [oz_av] 2116 [oz_av] NAVEEN ([facility]) Body mass index (BMI) [Ratio] 23.51 kg/m2 23.51 kg/m2 NAVEEN ([facility]) Body height 63 [in_i] 63 [in_i] NAVEEN ([facility]) Body weight 2116 [oz_av] 2116 [oz_av] NAVEEN ([facility]) Body mass index (BMI) [Ratio] 23.51 kg/m2 23.51 kg/m2 NAVEEN ([facility]) Body height 63 [in_i] 63 [in_i] NAVEEN ([facility]) Body weight 2116 [oz_av] 2116 [oz_av] NAVEEN ([facility]) Body mass index (BMI) [Ratio] 23.51 kg/m2 23.51 kg/m2 NAVEEN ([facility]) Body height 63 [in_i] 63 [in_i] NAVEEN ([facility]) Body weight 2116 [oz_av] 2116 [oz_av] NAVEEN ([facility]) Body mass index (BMI) [Ratio] 23.51 kg/m2 23.51 kg/m2 NAVEEN ([facility]) Body height 63 [in_i] 63 [in_i] NAVEEN ([facility]) Body weight 2116 [oz_av] 2116 [oz_av] NAVEEN ([facility]) Body mass index (BMI) [Ratio] 23.51 kg/m2 23.51 kg/m2 NAVEEN ([facility]) Body height 63 [in_i] 63 [in_i] NAVEEN ([facility]) Body weight 2116 [oz_av] 2116 [oz_av] NAVEEN ([facility]) Body mass index (BMI) [Ratio] 23.51 kg/m2 23.51 kg/m2 NAVEEN ([facility]) Body height 63 [in_i] 63 [in_i] NAVEEN ([facility]) Body weight 2116 [oz_av] 2116 [oz_av] NAVEEN ([facility]) Body weight 2116 [oz_av] 2116 [oz_av] NAVEEN ([facility]) Body mass index (BMI) [Ratio] 23.51 kg/m2 23.51 kg/m2 NAVEEN ([facility]) Body height 63 [in_i] 63 [in_i] NAVEEN ([facility]) Body height 63 [in_i] 63 [in_i] NAVEEN ([facility]) Body weight 2116 [oz_av] 2116 [oz_av] NAVEEN ([facility]) Body height 63 [in_i] 63 [in_i] NAVEEN ([facility]) Body weight 2116 [oz_av] 2116 [oz_av] NAVEEN ([facility]) Body height 63 [in_i] 63 [in_i] NAVEEN ([facility]) Body weight 2116 [oz_av] 2116 [oz_av] NAVEEN ([facility]) Body height 63 [in_i] 63 [in_i] NAVEEN ([facility]) Body weight 2116 [oz_av] 2116 [oz_av] NAVEEN ([facility]) Body height 63 [in_i] 63 [in_i] NAVEEN ([facility]) Body weight 2116 [oz_av] 2116 [oz_av] NAVEEN ([facility]) Body height 63 [in_i] 63 [in_i] NAVEEN ([facility]) Body weight 2116 [oz_av] 2116 [oz_av] NAVEEN ([facility]) Body height 63 [in_i] 63 [in_i] NAVEEN ([facility]) Body weight 2116 [oz_av] 2116 [oz_av] NAVEEN ([facility]) Body height 63 [in_i] 63 [in_i] NAVEEN ([facility]) Body weight 2116 [oz_av] 2116 [oz_av] NAVEEN ([facility]) Body height 63 [in_i] 63 [in_i] NAVEEN ([facility]) Body weight 2116 [oz_av] 2116 [oz_av] NAVEEN ([facility]) Body height 63 [in_i] 63 [in_i] NAVEEN ([facility]) Body height 63 [in_i] 63 [in_i] NAVEEN ([facility]) Body weight 2116 [oz_av] 2116 [oz_av] NAVEEN ([facility]) Body height 63 [in_i] 63 [in_i] NAVEEN ([facility]) Body weight 2116 [oz_av] 2116 [oz_av] NAVEEN ([facility]) Body height 63 [in_i] 63 [in_i] NAVEEN ([facility]) Body weight 2116 [oz_av] 2116 [oz_av] NAVEEN ([facility]) Body height 63 [in_i] 63 [in_i] NAVEEN ([facility]) Body weight 2116 [oz_av] 2116 [oz_av] NAVEEN ([facility]) Body mass index (BMI) [Ratio] 23.51 kg/m2 23.51 kg/m2 NAVEEN ([facility]) Body weight 2116 [oz_av] 2116 [oz_av] NAVEEN ([facility]) Body height 63 [in_i] 63 [in_i] NAVEEN ([facility]) Body weight 1986.08 [oz_av] 1986.08 [oz_av] ATH BRISEIDA ([facility]) Body mass index (BMI) [Ratio] 22.07 kg/m2 22.07 kg/m2 NAVEEN ([facility]) Body height 63 [in_i] 63 [in_i] NAVEEN ([facility]) Body weight 1986.08 [oz_av] 1986.08 [oz_av] ATH BRISEIDA ([facility]) Body mass index (BMI) [Ratio] 22.07 kg/m2 22.07 kg/m2 NAVEEN ([facility]) Body height 63 [in_i] 63 [in_i] NAVEEN ([facility]) Body weight 1986.08 [oz_av] 1986.08 [oz_av] ATH BRISEIDA ([facility]) Body mass index (BMI) [Ratio] 22.07 kg/m2 22.07 kg/m2 NAVEEN ([facility]) Body height 63 [in_i] 63 [in_i] NAVEEN ([facility]) Body weight 1986.08 [oz_av] 1986.08 [oz_av] ATH BRISEIDA ([facility]) Body weight 1986.08 [oz_av] 1986.08 [oz_av] ATH BRISEIDA ([facility]) Body mass index (BMI) [Ratio] 22.07 kg/m2 22.07 kg/m2 NAVEEN ([facility]) Body height 63 [in_i] 63 [in_i] NAVEEN ([facility]) Body mass index (BMI) [Ratio] 22.07 kg/m2 22.07 kg/m2 NAVEEN ([facility]) Body height 63 [in_i] 63 [in_i] NAVEEN ([facility]) Body weight 1986.08 [oz_av] 1986.08 [oz_av] ATH BRISEIDA ([facility]) Body mass index (BMI) [Ratio] 22.07 kg/m2 22.07 kg/m2 NAVEEN ([facility]) Body height 63 [in_i] 63 [in_i] NAVEEN ([facility]) Body weight 1986.08 [oz_av] 1986.08 [oz_av] ATH BRISEIDA ([facility]) Body mass index (BMI) [Ratio] 22.07 kg/m2 22.07 kg/m2 NAVEEN ([facility]) Body height 63 [in_i] 63 [in_i] NAVEEN ([facility]) Body weight 1986.08 [oz_av] 1986.08 [oz_av] ATH BRISEIDA ([facility]) Body mass index (BMI) [Ratio] 22.07 kg/m2 22.07 kg/m2 NAVEEN ([facility]) Body height 63 [in_i] 63 [in_i] NAVEEN ([facility]) Body weight 1986.08 [oz_av] 1986.08 [oz_av] ATH BRISEIDA ([facility]) Body mass index (BMI) [Ratio] 22.07 kg/m2 22.07 kg/m2 NAVEEN ([facility]) Body height 63 [in_i] 63 [in_i] NAVEEN ([facility]) Body weight 1986.08 [oz_av] 1986.08 [oz_av] ATH BRISEIDA ([facility]) Body height 63 [in_i] 63 [in_i] NAVEEN ([facility]) Body weight 1986.08 [oz_av] 1986.08 [oz_av] ATH BRISEIDA ([facility]) Body mass index (BMI) [Ratio] 22.07 kg/m2 22.07 kg/m2 NAVEEN ([facility]) Body height 63 [in_i] 63 [in_i] NAVEEN ([facility]) Body weight 1986.08 [oz_av] 1986.08 [oz_av] ATH BRISEIDA ([facility]) Body height 63 [in_i] 63 [in_i] NAVEEN ([facility]) Body weight 1986.08 [oz_av] 1986.08 [oz_av] ATH BRISEIDA ([facility]) Body height 63 [in_i] 63 [in_i] NAVEEN ([facility]) Body weight 1986.08 [oz_av] 1986.08 [oz_av] ATH BRISEIDA ([facility]) Body height 63 [in_i] 63 [in_i] NAVEEN ([facility]) Body weight 1986.08 [oz_av] 1986.08 [oz_av] ATH BRISEIDA ([facility]) Body height 63 [in_i] 63 [in_i] NAVEEN ([facility]) Body weight 1986.08 [oz_av] 1986.08 [oz_av] ATH BRISEIDA ([facility]) Body height 63 [in_i] 63 [in_i] NAVEEN ([facility]) Body weight 1986.08 [oz_av] 1986.08 [oz_av] ATH BRISEIDA ([facility]) Body height 63 [in_i] 63 [in_i] NAVEEN ([facility]) Body weight 1986.08 [oz_av] 1986.08 [oz_av] ATH BRISEIDA ([facility]) Body height 63 [in_i] 63 [in_i] NAVEEN ([facility]) Body weight 1986.08 [oz_av] 1986.08 [oz_av] ATH BRISEIDA ([facility]) Body height 63 [in_i] 63 [in_i] NAVEEN ([facility]) Body weight 1986.08 [oz_av] 1986.08 [oz_av] ATH BRISEIDA ([facility]) Body height 63 [in_i] 63 [in_i] NAVEEN ([facility]) Body weight 1986.08 [oz_av] 1986.08 [oz_av] ATH BRISEIDA ([facility]) Body height 63 [in_i] 63 [in_i] NAVEEN ([facility]) Body weight 1986.08 [oz_av] 1986.08 [oz_av] ATH BRISEIDA ([facility]) Body height 63 [in_i] 63 [in_i] NAVEEN ([facility]) Body weight 1986.08 [oz_av] 1986.08 [oz_av] ATH BRISEIDA ([facility]) Body height 63 [in_i] 63 [in_i] NAVEEN ([facility]) Body weight 1986.08 [oz_av] 1986.08 [oz_av] ATH BRISEIDA ([facility]) Body height 63 [in_i] 63 [in_i] NAVEEN ([facility]) Body weight 1926.08 [oz_av] 1926.08 [oz_av] ATH BRISEIDA ([facility]) Body weight 1926.08 [oz_av] 1926.08 [oz_av] ATH BRISEIDA ([facility]) Body weight 1926.08 [oz_av] 1926.08 [oz_av] ATH BRISEIDA ([facility]) Body weight 1926.08 [oz_av] 1926.08 [oz_av] ATH BRISEIDA ([facility]) Body weight 1926.08 [oz_av] 1926.08 [oz_av] ATH BRISEIDA ([facility]) Body weight 1926.08 [oz_av] 1926.08 [oz_av] ATH BRISEIDA ([facility]) Body weight 1926.08 [oz_av] 1926.08 [oz_av] ATH BRISEIDA ([facility]) Body weight 1926.08 [oz_av] 1926.08 [oz_av] ATH BRISEIDA ([facility]) Body weight 1926.08 [oz_av] 1926.08 [oz_av] ATH BRISEIDA ([facility]) Body weight 1926.08 [oz_av] 1926.08 [oz_av] ATH BRISEIDA ([facility]) Body weight 1926.08 [oz_av] 1926.08 [oz_av] ATH BRISEIDA ([facility]) Body weight 1926.08 [oz_av] 1926.08 [oz_av] ATH BRISEIDA ([facility]) Body weight 1926.08 [oz_av] 1926.08 [oz_av] ATH BRISEIDA ([facility]) Body weight 1926.08 [oz_av] 1926.08 [oz_av] ATH BRISEIDA ([facility]) Body weight 1926.08 [oz_av] 1926.08 [oz_av] ATH BRISEIDA ([facility]) Body weight 1926.08 [oz_av] 1926.08 [oz_av] ATH BRISEIDA ([facility]) Body weight 1926.08 [oz_av] 1926.08 [oz_av] ATH BRISEIDA ([facility]) Body weight 1926.08 [oz_av] 1926.08 [oz_av] ATH BRISEIDA ([facility]) Body weight 1926.08 [oz_av] 1926.08 [oz_av] ATH BRISEIDA ([facility]) Body weight 1926.08 [oz_av] 1926.08 [oz_av] ATH BRISEIDA ([facility]) Body weight 1926.08 [oz_av] 1926.08 [oz_av] ATH BRISEIDA ([facility]) Body weight 1926.08 [oz_av] 1926.08 [oz_av] ATH BRISEIDA ([facility]) Body weight 1926.08 [oz_av] 1926.08 [oz_av] ATH BRISEIDA ([facility]) Body weight 1926.08 [oz_av] 1926.08 [oz_av] ATH BRISEIDA ([facility]) Body weight 1888 [oz_av] 1888 [oz_av] NAVEEN ([facility]) Systolic blood pressure 119 mm[Hg] 119 mm[Hg] A [facility] ([facility]) Body mass index (BMI) [Ratio] 20.98 kg/m2 20.98 kg/m2 NAVEEN ([facility]) Body height 63 [in_i] 63 [in_i] NAVEEN ([facility]) Diastolic blood pressure 76 mm[Hg] 76 mm[Hg] NAVEEN ([facility]) Body weight 1888 [oz_av] 1888 [oz_av] NAVEEN ([facility]) Systolic blood pressure 119 mm[Hg] 119 mm[Hg] A [facility] ([facility]) Body mass index (BMI) [Ratio] 20.98 kg/m2 20.98 kg/m2 NAVEEN ([facility]) Body height 63 [in_i] 63 [in_i] NAVEEN ([facility]) Diastolic blood pressure 76 mm[Hg] 76 mm[Hg] NAVEEN ([facility]) Body weight 1888 [oz_av] 1888 [oz_av] NAVEEN ([facility]) Systolic blood pressure 119 mm[Hg] 119 mm[Hg] A THEN ([facility]) Body mass index (BMI) [Ratio] 20.98 kg/m2 20.98 kg/m2 NAVEEN ([facility]) Body height 63 [in_i] 63 [in_i] NAVEEN ([facility]) Diastolic blood pressure 76 mm[Hg] 76 mm[Hg] NAVEEN ([facility]) Body weight 1888 [oz_av] 1888 [oz_av] NAVEEN ([facility]) Systolic blood pressure 119 mm[Hg] 119 mm[Hg] A THEN ([facility]) Body mass index (BMI) [Ratio] 20.98 kg/m2 20.98 kg/m2 NAVEEN ([facility]) Body height 63 [in_i] 63 [in_i] NAVEEN ([facility]) Diastolic blood pressure 76 mm[Hg] 76 mm[Hg] NAVEEN ([facility]) Body weight 1888 [oz_av] 1888 [oz_av] NAVEEN ([facility]) Systolic blood pressure 119 mm[Hg] 119 mm[Hg] A THEN ([facility]) Body mass index (BMI) [Ratio] 20.98 kg/m2 20.98 kg/m2 NAVEEN ([facility]) Body height 63 [in_i] 63 [in_i] NAVEEN ([facility]) Diastolic blood pressure 76 mm[Hg] 76 mm[Hg] NAVEEN ([facility]) Body weight 1888 [oz_av] 1888 [oz_av] NAVEEN ([facility]) Systolic blood pressure 119 mm[Hg] 119 mm[Hg] A THENA ([facility]) Body mass index (BMI) [Ratio] 20.98 kg/m2 20.98 kg/m2 NAVEEN ([facility]) Body height 63 [in_i] 63 [in_i] NAVEEN ([facility]) Diastolic blood pressure 76 mm[Hg] 76 mm[Hg] NAVEEN ([facility]) Body weight 1888 [oz_av] 1888 [oz_av] NAVEEN ([facility]) Systolic blood pressure 119 mm[Hg] 119 mm[Hg] A [facility] ([facility]) Body mass index (BMI) [Ratio] 20.98 kg/m2 20.98 kg/m2 NAVEEN ([facility]) Body height 63 [in_i] 63 [in_i] NAVEEN ([facility]) Diastolic blood pressure 76 mm[Hg] 76 mm[Hg] NAVEEN ([facility]) Body weight 1888 [oz_av] 1888 [oz_av] NAVEEN ([facility]) Systolic blood pressure 119 mm[Hg] 119 mm[Hg] A [facility] ([facility]) Body mass index (BMI) [Ratio] 20.98 kg/m2 20.98 kg/m2 NAVEEN ([facility]) Body height 63 [in_i] 63 [in_i] NAVEEN ([facility]) Diastolic blood pressure 76 mm[Hg] 76 mm[Hg] NAVEEN ([facility]) Body weight 1888 [oz_av] 1888 [oz_av] NAVEEN ([facility]) Systolic blood pressure 119 mm[Hg] 119 mm[Hg] A [facility] ([facility]) Body mass index (BMI) [Ratio] 20.98 kg/m2 20.98 kg/m2 NAVEEN ([facility]) Body height 63 [in_i] 63 [in_i] NAVEEN ([facility]) Diastolic blood pressure 76 mm[Hg] 76 mm[Hg] NAVEEN ([facility]) Diastolic blood pressure 76 mm[Hg] 76 mm[Hg] NAVEEN ([facility]) Body weight 1888 [oz_av] 1888 [oz_av] NAVEEN ([facility]) Systolic blood pressure 119 mm[Hg] 119 mm[Hg] A [facility] ([facility]) Body mass index (BMI) [Ratio] 20.98 kg/m2 20.98 kg/m2 NAVEEN ([facility]) Body height 63 [in_i] 63 [in_i] NAVEEN ([facility]) Diastolic blood pressure 76 mm[Hg] 76 mm[Hg] NAVEEN ([facility]) Body weight 1888 [oz_av] 1888 [oz_av] NAVEEN ([facility]) Systolic blood pressure 119 mm[Hg] 119 mm[Hg] A [facility] ([facility]) Body height 63 [in_i] 63 [in_i] NAVEEN ([facility]) Diastolic blood pressure 76 mm[Hg] 76 mm[Hg] NAVEEN ([facility]) Body weight 1888 [oz_av] 1888 [oz_av] NAVEEN ([facility]) Systolic blood pressure 119 mm[Hg] 119 mm[Hg] A [facility] ([facility]) Body height 63 [in_i] 63 [in_i] NAVEEN ([facility]) Diastolic blood pressure 76 mm[Hg] 76 mm[Hg] NAVEEN ([facility]) Body weight 1888 [oz_av] 1888 [oz_av] NAVEEN ([facility]) Systolic blood pressure 119 mm[Hg] 119 mm[Hg] A THENA ([facility]) Body height 63 [in_i] 63 [in_i] NAVEEN ([facility]) Body weight 1888 [oz_av] 1888 [oz_av] NAVEEN ([facility]) Systolic blood pressure 119 mm[Hg] 119 mm[Hg] A [facility] ([facility]) Body height 63 [in_i] 63 [in_i] NAVEEN ([facility]) Diastolic blood pressure 76 mm[Hg] 76 mm[Hg] NAVEEN ([facility]) Body weight 1888 [oz_av] 1888 [oz_av] NAVEEN ([facility]) Systolic blood pressure 119 mm[Hg] 119 mm[Hg] A THENA ([facility]) Body height 63 [in_i] 63 [in_i] NAVEEN ([facility]) Diastolic blood pressure 76 mm[Hg] 76 mm[Hg] NAVEEN ([facility]) Body weight 1888 [oz_av] 1888 [oz_av] NAVEEN ([facility]) Systolic blood pressure 119 mm[Hg] 119 mm[Hg] A [facility] ([facility]) Body height 63 [in_i] 63 [in_i] NAVEEN ([facility]) Diastolic blood pressure 76 mm[Hg] 76 mm[Hg] NAVEEN ([facility]) Body weight 1888 [oz_av] 1888 [oz_av] NAVEEN ([facility]) Systolic blood pressure 119 mm[Hg] 119 mm[Hg] A THENA ([facility]) Body height 63 [in_i] 63 [in_i] NAVEEN ([facility]) Diastolic blood pressure 76 mm[Hg] 76 mm[Hg] NAVEEN ([facility]) Body weight 1888 [oz_av] 1888 [oz_av] NAVEEN ([facility]) Systolic blood pressure 119 mm[Hg] 119 mm[Hg] A [facility] ([facility]) Body height 63 [in_i] 63 [in_i] NAVEEN ([facility]) Diastolic blood pressure 76 mm[Hg] 76 mm[Hg] NAVEEN ([facility]) Body weight 1888 [oz_av] 1888 [oz_av] NAVEEN ([facility]) Systolic blood pressure 119 mm[Hg] 119 mm[Hg] A THENA ([facility]) Body height 63 [in_i] 63 [in_i] NAVEEN ([facility]) Diastolic blood pressure 76 mm[Hg] 76 mm[Hg] NAVEEN ([facility]) Body weight 1888 [oz_av] 1888 [oz_av] NAVEEN ([facility]) Systolic blood pressure 119 mm[Hg] 119 mm[Hg] A THENA ([facility]) Body height 63 [in_i] 63 [in_i] NAVEEN ([facility]) Diastolic blood pressure 76 mm[Hg] 76 mm[Hg] NAVEEN ([facility]) Body weight 1888 [oz_av] 1888 [oz_av] NAVEEN ([facility]) Systolic blood pressure 119 mm[Hg] 119 mm[Hg] A THENA ([facility]) Body height 63 [in_i] 63 [in_i] NAVEEN ([facility]) Diastolic blood pressure 76 mm[Hg] 76 mm[Hg] NAVEEN ([facility]) Body weight 1888 [oz_av] 1888 [oz_av] NAVEEN ([facility]) Systolic blood pressure 119 mm[Hg] 119 mm[Hg] A [facility] ([facility]) Body height 63 [in_i] 63 [in_i] NAVEEN ([facility]) Diastolic blood pressure 76 mm[Hg] 76 mm[Hg] NAVEEN ([facility]) Body weight 1888 [oz_av] 1888 [oz_av] NAVEEN ([facility]) Systolic blood pressure 119 mm[Hg] 119 mm[Hg] A [facility] ([facility]) Body height 63 [in_i] 63 [in_i] NAVEEN ([facility]) Diastolic blood pressure 76 mm[Hg] 76 mm[Hg] NAVEEN ([facility]) Body weight 1888 [oz_av] 1888 [oz_av] NAVEEN ([facility]) Systolic blood pressure 119 mm[Hg] 119 mm[Hg] A [facility] ([facility]) Body height 63 [in_i] 63 [in_i] NAVEEN ([facility]) Diastolic blood pressure 76 mm[Hg] 76 mm[Hg] NAVEEN ([facility]) Body weight 1824 [oz_av] 1824 [oz_av] NAVEEN ([facility]) Body mass index (BMI) [Ratio] 20.27 kg/m2 20.27 kg/m2 NAVEEN ([facility]) Body height 63 [in_i] 63 [in_i] NAVEEN ([facility]) Body weight 1824 [oz_av] 1824 [oz_av] NAVEEN ([facility]) Body mass index (BMI) [Ratio] 20.27 kg/m2 20.27 kg/m2 NAVEEN ([facility]) Body height 63 [in_i] 63 [in_i] NAVEEN ([facility]) Body weight 1824 [oz_av] 1824 [oz_av] NAVEEN ([facility]) Body mass index (BMI) [Ratio] 20.27 kg/m2 20.27 kg/m2 NAVEEN ([facility]) Body height 63 [in_i] 63 [in_i] NAVEEN ([facility]) Body weight 1824 [oz_av] 1824 [oz_av] NAVEEN ([facility]) Body mass index (BMI) [Ratio] 20.27 kg/m2 20.27 kg/m2 NAVEEN ([facility]) Body height 63 [in_i] 63 [in_i] NAVEEN ([facility]) Body weight 1824 [oz_av] 1824 [oz_av] NAVEEN ([facility]) Body mass index (BMI) [Ratio] 20.27 kg/m2 20.27 kg/m2 NAVEEN ([facility]) Body height 63 [in_i] 63 [in_i] NAVEEN ([facility]) Body weight 1824 [oz_av] 1824 [oz_av] NAVEEN ([facility]) Body mass index (BMI) [Ratio] 20.27 kg/m2 20.27 kg/m2 NAVEEN ([facility]) Body height 63 [in_i] 63 [in_i] NAVEEN ([facility]) Body weight 1824 [oz_av] 1824 [oz_av] NAVEEN ([facility]) Body mass index (BMI) [Ratio] 20.27 kg/m2 20.27 kg/m2 NAVEEN ([facility]) Body height 63 [in_i] 63 [in_i] NAVEEN ([facility]) Body weight 1824 [oz_av] 1824 [oz_av] NAVEEN ([facility]) Body mass index (BMI) [Ratio] 20.27 kg/m2 20.27 kg/m2 NAVEEN ([facility]) Body height 63 [in_i] 63 [in_i] NAVEEN ([facility]) Body weight 1824 [oz_av] 1824 [oz_av] NAVEEN ([facility]) Body mass index (BMI) [Ratio] 20.27 kg/m2 20.27 kg/m2 NAVEEN ([facility]) Body height 63 [in_i] 63 [in_i] NAVEEN ([facility]) Body weight 1824 [oz_av] 1824 [oz_av] NAVEEN ([facility]) Body mass index (BMI) [Ratio] 20.27 kg/m2 20.27 kg/m2 NAVEEN ([facility]) Body height 63 [in_i] 63 [in_i] NAVEEN ([facility]) Body weight 1824 [oz_av] 1824 [oz_av] NAVEEN ([facility]) Body height 63 [in_i] 63 [in_i] NAVEEN ([facility]) Body weight 1824 [oz_av] 1824 [oz_av] NAVEEN ([facility]) Body height 63 [in_i] 63 [in_i] NAVEEN ([facility]) Body weight 1824 [oz_av] 1824 [oz_av] NAVEEN ([facility]) Body height 63 [in_i] 63 [in_i] NAVEEN ([facility]) Body weight 1824 [oz_av] 1824 [oz_av] NAVEEN ([facility]) Body height 63 [in_i] 63 [in_i] NAVEEN ([facility]) Body weight 1824 [oz_av] 1824 [oz_av] NAVEEN ([facility]) Body height 63 [in_i] 63 [in_i] NAVEEN ([facility]) Body weight 1824 [oz_av] 1824 [oz_av] NAVEEN ([facility]) Body height 63 [in_i] 63 [in_i] NAVEEN ([facility]) Body weight 1824 [oz_av] 1824 [oz_av] NAVEEN ([facility]) Body height 63 [in_i] 63 [in_i] NAVEEN ([facility]) Body weight 1824 [oz_av] 1824 [oz_av] NAVEEN ([facility]) Body height 63 [in_i] 63 [in_i] NAVEEN ([facility]) Body weight 1824 [oz_av] 1824 [oz_av] NAVEEN ([facility]) Body height 63 [in_i] 63 [in_i] NAVEEN ([facility]) Body weight 1824 [oz_av] 1824 [oz_av] NAVEEN ([facility]) Body height 63 [in_i] 63 [in_i] NAVEEN ([facility]) Body weight 1824 [oz_av] 1824 [oz_av] NAVEEN ([facility]) Body height 63 [in_i] 63 [in_i] NAVEEN ([facility]) Body weight 1824 [oz_av] 1824 [oz_av] NAVEEN ([facility]) Body height 63 [in_i] 63 [in_i] NAVEEN ([facility]) Body weight 1824 [oz_av] 1824 [oz_av] NAVEEN ([facility]) Body height 63 [in_i] 63 [in_i] NAVEEN ([facility]) Body weight 1824 [oz_av] 1824 [oz_av] NAVEEN ([facility]) Body height 63 [in_i] 63 [in_i] NAVEEN ([facility]) Patient Treatment Plan of Care Planned Activity Planned Date Details Description Data Source (s) Trazodone Hydrochloride 150 MG Oral Tablet 05/15/2020 12:00:[address] NAVEEN ([facility]) Trazodone Hydrochloride 150 MG Oral Tablet 05/15/2020 12:00:[address] NAVEEN ([facility]) Trazodone Hydrochloride 150 MG Oral Tablet 05/15/2020 12:00:[address] NAVEEN ([facility]) Trazodone Hydrochloride 50 MG Oral Tablet NAVEEN ([facility]) aripiprazole 5 MG Oral Tablet NAVEEN ([facility]) aripiprazole 15 MG Oral Tablet NAVEEN ([facility]) aripiprazole 10 MG Oral Tablet NAVEEN ([facility]) Trazodone Hydrochloride 50 MG Oral Tablet NAVEEN ([facility]) Sertraline 50 MG Oral Tablet NAVEEN ([facility]) aripiprazole 5 MG Oral Tablet NAVEEN ([facility]) aripiprazole 15 MG Oral Tablet NAVEEN ([facility]) aripiprazole 10 MG Oral Tablet NAVEEN ([facility]) Trazodone Hydrochloride 50 MG Oral Tablet NAVEEN ([facility]) Sertraline 50 MG Oral Tablet NAVEEN ([facility]) aripiprazole 5 MG Oral Tablet NAVEEN ([facility]) aripiprazole 15 MG Oral Tablet NAVEEN ([facility]) aripiprazole 10 MG Oral Tablet NAVEEN ([facility]) Trazodone Hydrochloride 50 MG Oral Tablet NAVEEN ([facility]) Sertraline 50 MG Oral Tablet NAVEEN ([facility]) aripiprazole 5 MG Oral Tablet NAVEEN ([facility]) aripiprazole 15 MG Oral Tablet NAVEEN ([facility]) aripiprazole 10 MG Oral Tablet NAVEEN ([facility]) Trazodone Hydrochloride 50 MG Oral Tablet NAVEEN ([facility]) Sertraline 50 MG Oral Tablet NAVEEN ([facility]) aripiprazole 5 MG Oral Tablet NAVEEN ([facility]) aripiprazole 15 MG Oral Tablet NAVEEN ([facility]) aripiprazole 10 MG Oral Tablet NAVEEN ([facility]) Trazodone Hydrochloride 50 MG Oral Tablet NAVEEN ([facility]) Sertraline 50 MG Oral Tablet NAVEEN ([facility]) aripiprazole 5 MG Oral Tablet NAVEEN ([facility]) aripiprazole 15 MG Oral Tablet NAVEEN ([facility]) aripiprazole 10 MG Oral Tablet NAVEEN ([facility]) Trazodone Hydrochloride 50 MG Oral Tablet NAVEEN ([facility]) Sertraline 50 MG Oral Tablet NAVEEN ([facility]) aripiprazole 5 MG Oral Tablet NAVEEN ([facility]) aripiprazole 15 MG Oral Tablet NAVEEN ([facility]) aripiprazole 10 MG Oral Tablet NAVEEN ([facility]) Trazodone Hydrochloride 50 MG Oral Tablet NAVEEN ([facility]) Sertraline 50 MG Oral Tablet NAVEEN ([facility]) aripiprazole 5 MG Oral Tablet NAVEEN ([facility]) aripiprazole 15 MG Oral Tablet NAVEEN ([facility]) aripiprazole 10 MG Oral Tablet NAVEEN ([facility]) Trazodone Hydrochloride 50 MG Oral Tablet NAVEEN ([facility]) Sertraline 50 MG Oral Tablet NAVEEN ([facility]) aripiprazole 5 MG Oral Tablet NAVEEN ([facility]) aripiprazole 15 MG Oral Tablet NAVEEN ([facility]) aripiprazole 10 MG Oral Tablet NAVEEN ([facility]) Trazodone Hydrochloride 50 MG Oral Tablet NAVEEN ([facility]) Sertraline 50 MG Oral Tablet NAVEEN ([facility]) aripiprazole 5 MG Oral Tablet NAVEEN ([facility]) aripiprazole 15 MG Oral Tablet NAVEEN ([facility]) aripiprazole 10 MG Oral Tablet NAVEEN ([facility]) Trazodone Hydrochloride 50 MG Oral Tablet NAVEEN ([facility]) Sertraline 50 MG Oral Tablet NAVEEN ([facility]) aripiprazole 5 MG Oral Tablet NAVEEN ([facility]) aripiprazole 15 MG Oral Tablet NAVEEN ([facility]) aripiprazole 10 MG Oral Tablet NAVEEN ([facility]) Trazodone Hydrochloride 50 MG Oral Tablet NAVEEN ([facility]) Sertraline 50 MG Oral Tablet NAVEEN ([facility]) Sertraline 100 MG Oral Tablet NAVEEN ([facility]) gabapentin 600 MG Oral Tablet NAVEEN ([facility]) aripiprazole 5 MG Oral Tablet NAVEEN ([facility]) aripiprazole 10 MG Oral Tablet NAVEEN ([facility]) Sertraline 50 MG Oral Tablet NAVEEN ([facility]) aripiprazole 5 MG Oral Tablet NAVEEN ([facility]) aripiprazole 10 MG Oral Tablet NAVEEN ([facility]) Sertraline 50 MG Oral Tablet NAVEEN ([facility]) aripiprazole 5 MG Oral Tablet NAVEEN ([facility]) aripiprazole 10 MG Oral Tablet NAVEEN ([facility]) Sertraline 50 MG Oral Tablet NAVEEN ([facility]) aripiprazole 5 MG Oral Tablet NAVEEN ([facility]) aripiprazole 10 MG Oral Tablet NAVEEN ([facility]) aripiprazole 10 MG Oral Tablet NAVEEN ([facility]) Sertraline 50 MG Oral Tablet NAVEEN ([facility]) aripiprazole 5 MG Oral Tablet NAVEEN ([facility]) aripiprazole 10 MG Oral Tablet NAVEEN ([facility]) Sertraline 50 MG Oral Tablet NAVEEN ([facility]) aripiprazole 5 MG Oral Tablet NAVEEN ([facility]) aripiprazole 10 MG Oral Tablet NAVEEN ([facility]) Sertraline 50 MG Oral Tablet NAVEEN ([facility]) aripiprazole 5 MG Oral Tablet NAVEEN ([facility]) aripiprazole 10 MG Oral Tablet NAVEEN ([facility]) Sertraline 50 MG Oral Tablet NAVEEN ([facility]) aripiprazole 5 MG Oral Tablet NAVEEN ([facility]) aripiprazole 10 MG Oral Tablet NAVEEN ([facility]) Sertraline 50 MG Oral Tablet NAVEEN ([facility]) aripiprazole 5 MG Oral Tablet NAVEEN ([facility]) aripiprazole 10 MG Oral Tablet NAVEEN ([facility]) Sertraline 50 MG Oral Tablet NAVEEN ([facility]) Sertraline 50 MG Oral Tablet NAVEEN ([facility]) aripiprazole 5 MG Oral Tablet NAVEEN ([facility])
[2020-06-07 18:44] VITALS: BP 126/70
== END 2020-06-07 18:49 | disposition home or self-care (01) ==
LOC: M ED 15:33
DX: F32.9 Major depressive disorder, single episode, unspecified (principal); R45.851 Suicidal ideations; F12.10 Cannabis abuse, uncomplicated; Z79.899 Other long term (current) drug therapy

== ENCOUNTER → 2020-06-07 | Outpatient (REF) | payer MEDICARE, MEDICAID ==
[~2020-06-07] MED LIST changes: +GABA-282 PO; -GABA-843 PO; +HYDR-3363 PO; +MEDR150I10 IM; +MELA5CAP2 PO; -QUET1TAB7 PO; +QUET25TA3 PO; +QUET300T2 PO; +TRAZ-257 PO; +TRAZ150T90 PO; +ZOLO100T PO
== END ==
LOC: M LAB REF 16:48
PROVIDERS: ATTEND Obstetrics & Gynecology
DX: N64.3 Galactorrhea not associated with childbirth (principal)

== ENCOUNTER 2020-06-12 11:03 | Inpatient (IN) | payer MEDICARE, MEDICAID ==
[~2020-06-12] VITALS: Ht 157.5 cm; Wt 61.2 kg
[~2020-06-12 11:03] MED LIST changes: +QUET300T2 PO; +ZOLO100T PO
[2020-06-12] MEDS ORDERED: MELA5CAP2 PO (11:11)
[2020-06-12 13:36] LABS: HEMOGLOBIN 12.7 g/dl (12.0-15.5); MEAN CORPUSCULAR HEMOGLOBIN 31.4 pg (27.0-33.0); MEAN CORPUSCULAR HGB CONC 32.6 g/dl (32.0-36.5); MEAN CORPUSCULAR VOLUME 96.3 fl (80.0-96.0); PLATELET COUNT, AUTOMATED 256 10^3/uL (150-450); RED BLOOD COUNT 4.05 10^6/uL (4.00-5.40); WHITE BLOOD COUNT 5.7 10^3/uL (4.0-10.0)
[2020-06-12 14:03] LABS: AMPHETAMINES LEVEL URINE NEGATIVE (NEGATIVE); BARBITURATES URINE NEGATIVE (NEGATIVE); BENZODIAZEPINES URINE NEGATIVE (NEGATIVE); CANNABINOIDS URINE NEGATIVE (NEGATIVE); COCAINE METABOLITE URINE NEGATIVE (NEGATIVE); METHADONE URINE NEGATIVE (NEGATIVE); OPIATES URINE NEGATIVE (NEGATIVE); PHENCYCLIDINE URINE NEGATIVE (NEGATIVE)
[2020-06-12 14:03] LABS: HCG, SERUM QUALITATIVE NEGATIVE (NEGATIVE)
[2020-06-12 14:16] LABS: ALBUMIN 3.6 GM/DL (3.2-5.2); ALT/SGPT 16 U/L (12-78); BILIRUBIN,DIRECT < 0.1 MG/DL (0.0-0.2); BILIRUBIN,TOTAL 0.3 MG/DL (0.2-1.0); BLOOD UREA NITROGEN 12 MG/DL (7-18); CALCIUM LEVEL 8.8 MG/DL (8.5-10.1); CARBON DIOXIDE LEVEL 28 MEQ/L (21-32); CHLORIDE LEVEL 107 MEQ/L (98-107); GLOMERULAR FILTRATION RATE > 60.0 (>60); GLUCOSE, FASTING 81 MG/DL (70-100); SALICYLATE LEVEL < 1.7 MG/DL (5.0-30.0); SODIUM LEVEL 138 MEQ/L (136-145); TOTAL PROTEIN 7.1 GM/DL (6.4-8.2)
[2020-06-12 14:17] LABS: ACETAMINOPHEN LEVEL < 2.0 UG/ML (10.0-30.0); ETHYL ALCOHOL (ETHANOL) < 0.003 % (0.000-0.010)
[2020-06-12] MEDS ORDERED: IBUPROFEN 600MG TAB PO ONE (17:35)
--- NOTE | 2020-06-12 19:38 | ECGEPIP ---
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
[2020-06-12] MEDS ORDERED: TRAZ150T90 PO (20:48)
[2020-06-12] MEDS ORDERED: MEDR150I10 IM (20:48)
[2020-06-12] MEDS ORDERED: GABAPENTIN 300 MG CAP PO ONE (21:00)
[2020-06-12] MEDS ORDERED: traZODone 50 MG TAB PO ONE (21:00)
[2020-06-12] MEDS ORDERED: QUEtiapine FUMARATE 100 MG TAB PO ONE (21:00)
[2020-06-13] MEDS ORDERED: SERTRALINE 100 MG TAB PO ONE (09:20)
[2020-06-13] MEDS ORDERED: MOM 30ML SUSPENSION UDC PO PRN (10:30)
[2020-06-13] MEDS ORDERED: MAALOX 30 ML SUSP *UDC PO PRN (10:30)
[2020-06-13 11:16] LABS: RSV AMPLIFICATION NEGATIVE (NEGATIVE)
[2020-06-13 13:20] VITALS: BP 123/75
[2020-06-13 16:46] VITALS: BP 136/71
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
[2020-06-13] MEDS ORDERED: traZODone 50 MG TAB PO SCH (21:00)
[2020-06-13] MEDS: GABAPENTIN 300 MG CAP PO SCH (21:17)
[2020-06-13] MEDS: QUEtiapine FUMARATE 100 MG TAB PO SCH (21:18)
[2020-06-13] MEDS: IBUPROFEN 400MG TAB PO PRN (21:18)
[2020-06-14 06:26] VITALS: BP 119/57
--- NOTE | 2020-06-14 07:05 | MHIPNPDOC ---
[facility] Progress Note Progress Note DATE OF SERVICE: 06/14/20 HISTORY: This is an addendum to yesterday's note, please ignore the comments on eating disorder. VITAL SIGNS: See below. NEW TEST RESULTS: . CURRENT MEDICATIONS: See below. MENTAL STATUS EXAMINATION: Patient is a -year old female, who is . Speech: Is . Language skills are . Thought processes including: . Thought content: . Abstract reasoning, and computation: . Description of associations: . Description of abnormal or psychotic thoughts: . Judgment: . Insight: [very limited, good, fair. poor]. Orientation: . Recent and remote memory: . Attention span and concentration: . Language: . Fund of knowledge: . Mood: . Affect: . DIAGNOSES: 1. . 2. . 3. . ASSESSMENT: MANAGEMENT PLAN: . TIME SPENT: minutes. Vital Signs Vital Signs Date Time Temp Pulse Resp B/P (MAP) Pulse Ox O2 Delivery O2 Flow Rate FiO2 06/14/20 06:26 97.7 72 16 119/57 (77) 95 Room Air Laboratory Data 24H Labs Laboratory Tests 2 06/13/20 09:45: Coronavirus (COVID-19)(PCR) NEGATIVE, Influenza Type A (RT-PCR) NEGATIVE, Influenza Type B (RT-PCR) NEGATIVE, Respiratory Syncytial Virus (PCR) NEGATIVE Current Medications Current Medications Medications (Trade) Dose Ordered Sig/Naida Route PRN Reason Start Time Stop Time Status Last Admin Dose Admin Al Hydrox/Mg Hydrox/Simethicone (Mylanta) 30 ml Q4HP PRN PO HEARTBURN/INDIGESTION 06/13/20 10:30 Gabapentin (Neurontin) 600 mg QHS PO 06/13/20 21:00 06/13/20 21:17 Home Med (Med Rec Complete!) ASDIRECTED XX 06/12/20 20:50 06/12/20 20:50 DC Ibuprofen (Advil) 400 mg Q6HP PRN PO PAIN 06/13/20 10:30 06/13/20 21:18 Magnesium Hydroxide (Milk Of Magnesia) 30 ml DAILYPRN PRN PO CONSTIPATION 06/13/20 10:30 Quetiapine Fumarate (SEROquel) 300 mg QHS PO 06/13/20 21:00 06/13/20 21:18 Sertraline HCl (Zoloft) 100 mg DAILY PO 06/14/20 09:00 Trazodone HCl (Desyrel) 150 mg QHS PO 06/13/20 21:00 06/13/20 21:18 Allergies Coded Allergies: No Known Allergies (Unverified , 02/22/16) KADE BALLESTEROS MD Jun 14, 2020 07:05
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
[2020-06-14] MEDS: IBUPROFEN 400MG TAB PO PRN ×2 (08:05→20:43)
[2020-06-14] MEDS ORDERED: SERTRALINE 100 MG TAB PO SCH (09:00)
--- NOTE | 2020-06-14 14:37 | HPEPDOC ---
[facility] Medical History & Physical Date of Admission Jun 14, 2020 Date of Service: Jun 14, 2020 History and Physical CHIEF COMPLAINT: suicidal ideation HISTORY OF PRESENT ILLNESS: 25-year-old female with history of anxiety, depression and suicidal ideation, admitted to behavioral health unit for further active suicidal ideation. Hospitalist was consulted for medical intake. Reviewed patient's chart, vitals, and laboratory values. No acute abnormalities identified. Reviewed ED report, patient stated that she said more thoughts of hurting herself. She does not have a plan at this time. By the time of examination. She continues to have suicidal ideations on and off. She has no support system at home. Patient does not endorse any chest pain, seizures, breath, nausea, vomiting, diarrhea. She does complain of chronic on and off low back pain. She has a primary care doctor that she just newly established within [place], [place]. PAST MEDICAL HISTORY: Chronic back pain Scoliosis X-ray thoracic and lumbosacral spine 04/30 mild dextroscoliosis. Anxiety depression History of SI ADHD PAST SURGICAL HISTORY: Left breast lumpectomy 2013 SOCIAL HISTORY: former smoker denies drinking denies illicits FAMILY HISTORY: patient is adopted unaware of biological hx ALLERGIES: Please see below. REVIEW OF SYSTEMS: 10 point review of systems performed, relevant findings noted in HPI HOME MEDICATIONS: Please see below. 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 Strength 5/5 in all 4 extremities. No nystagmus. Psych: calm, cooperative, AAO x 3 LABORATORY DATA: See below. MICROBIOLOGY: Please see below. ASSESSMENT: 25 yo F admitted to [facility] for suicidal ideation. Hospitalist service consulted for medical intake. . PLAN: #Suicidal ideation: ongoing. per psych #Hx of back ferny/scoliosis: tylenol prn for pain control Thank you for the consult. Please re-consult as needed. Encourage follow up with PCP. Vital Signs Vital Signs Date Time Temp Pulse Resp B/P (MAP) Pulse Ox O2 Delivery O2 Flow Rate FiO2 06/14/20 06:26 97.7 72 16 119/57 (77) 95 Room Air Home Medications Scheduled Gabapentin (Gabapentin) 600 Mg Tablet, 600 MG PO QHS Medroxyprogesterone Acetate (Medroxyprogesterone Acetate) 150 Mg/1 Ml Vial, 1 ML IM Q3M APPT FOR 06/14/20 Melatonin (Melatonin) 5 Mg Capsule, 5 MG PO QHS Quetiapine Fumarate (Quetiapine Fumarate) 300 Mg Tablet, 300 MG PO QHS Sertraline Hcl (Zoloft) 100 Mg Tablet, 100 MG PO DAILY Trazodone HCl (Trazodone HCl) 150 Mg Tablet, 150 MG PO QHS Allergies Coded Allergies: No Known Allergies (Unverified , 02/22/16) FELTON VELAZQUEZ MD Jun 14, 2020 14:37
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
[2020-06-14 16:27] VITALS: BP 135/75
[2020-06-14] MEDS: traZODone 100 MG TAB PO SCH (20:25)
[2020-06-14] MEDS: GABAPENTIN 300 MG CAP PO SCH (20:25)
[2020-06-14] MEDS: QUEtiapine FUMARATE 100 MG TAB PO SCH (20:25)
[2020-06-15 06:31] VITALS: BP 129/75
[2020-06-15] MEDS: SERTRALINE HCL 50 MG TAB PO SCH (08:38)
[2020-06-15] MEDS: IBUPROFEN 400MG TAB PO PRN ×3 (08:39→21:46)
[2020-06-15] MEDS: hydrOXYzine 25 MG TAB PO SCH (15:38)
[2020-06-15 17:18] VITALS: BP 128/74
--- NOTE | 2020-06-15 17:39 | MHIPNPDOC ---
[facility] Progress Note Progress Note DATE OF SERVICE: 06/15/20 HISTORY: 25-year-old with anxiety and depression. Mood is improving. Added Vistaril in the afternoon to help her with afternoon anxiety. VITAL SIGNS: See below. NEW TEST RESULTS: None. CURRENT MEDICATIONS: See below. MENTAL STATUS EXAMINATION: Patient is a 25-year old female, who is improving in mood, but continues to have anxiety and afternoon. Speech: Is normal. Language skills are. No gross disturbance. Thought processes including:. No gross disturbance. Thought content:, Anxiety and fears of being alone. Abstract reasoning, and computation:, [place]. Description of associations:. No loose association. Description of abnormal or psychotic thoughts:. No psychotic thoughts. Judgment: Fair. Insight:, Limited. Orientation: 3. Recent and remote memory: Intact. Attention span and concentration: Intact. Language:. No gross disturbance. Fund of knowledge: Full fund of knowledge. Mood:. Good. Affect: Congruent. DIAGNOSES: 1., Major depression with anxiety. 2. , Mild intellectual disability. 3., None. ASSESSMENT: As above MANAGEMENT PLAN:, Will plan discharge, when patient appears less anxious. TIME SPENT: 35 minutes. Vital Signs Vital Signs Date Time Temp Pulse Resp B/P (MAP) Pulse Ox O2 Delivery O2 Flow Rate FiO2 06/15/20 17:18 97.6 89 18 128/74 (92) 06/15/20 06:31 99 Room Air Current Medications Current Medications Medications (Trade) Dose Ordered Sig/Naida Route PRN Reason Start Time Stop Time Status Last Admin Dose Admin Al Hydrox/Mg Hydrox/Simethicone (Mylanta) 30 ml Q4HP PRN PO HEARTBURN/INDIGESTION 06/13/20 10:30 Gabapentin (Neurontin) 600 mg QHS PO 06/13/20 21:00 06/14/20 20:25 Home Med (Med Rec Complete!) ASDIRECTED XX 06/12/20 20:50 06/12/20 20:50 DC Hydroxyzine HCl (Atarax) 25 mg DAILY@1600 PO 06/15/20 16:00 06/15/20 15:38 Ibuprofen (Advil) 400 mg Q6HP PRN PO PAIN 06/13/20 10:30 06/15/20 15:38 Magnesium Hydroxide (Milk Of Magnesia) 30 ml DAILYPRN PRN PO CONSTIPATION 06/13/20 10:30 Quetiapine Fumarate (SEROquel) 300 mg QHS PO 06/13/20 21:00 06/14/20 20:25 Sertraline HCl (Zoloft) 100 mg DAILY PO 06/14/20 09:00 06/14/20 15:46 DC 06/14/20 08:05 Sertraline HCl (Zoloft) 150 mg DAILY PO 06/15/20 09:00 06/15/20 08:38 Trazodone HCl (Desyrel) 100 mg QHS PO 06/14/20 21:00 06/14/20 20:25 Trazodone HCl (Desyrel) 150 mg QHS PO 06/13/20 21:00 06/14/20 15:46 DC 06/13/20 21:18 Allergies Coded Allergies: No Known Allergies (Unverified , 02/22/16) KADE BALLESTEROS MD Jun 15, 2020 17:39
[2020-06-15] MEDS: traZODone 100 MG TAB PO SCH (20:53)
[2020-06-15] MEDS: QUEtiapine FUMARATE 100 MG TAB PO SCH (20:53)
[2020-06-15] MEDS: GABAPENTIN 300 MG CAP PO SCH (20:53)
[2020-06-16 05:56] VITALS: BP 125/67
[2020-06-16] MEDS: IBUPROFEN 400MG TAB PO PRN (06:17)
[2020-06-16] MEDS: SERTRALINE HCL 50 MG TAB PO SCH (08:24)
[2020-06-16] MEDS: hydrOXYzine 25 MG TAB PO SCH (15:01)
[2020-06-16 16:42] VITALS: BP 128/72
--- NOTE | 2020-06-16 16:50 | MHIPNPDOC ---
[facility] Progress Note Progress Note DATE OF SERVICE: 06/16/20 HISTORY: 25-year-old, significant anxiety and depression. VITAL SIGNS: See below. NEW TEST RESULTS: None. CURRENT MEDICATIONS: See below. MENTAL STATUS EXAMINATION: Patient is a. 25-year old female, who is improved mood and less anxiety. Speech: Is. No gross disturbance. Language skills are disturbance. Thought processes including: No gross disturbance. Thought content: No gross disturbance. Abstract reasoning, and computation: No gross disturbance able to abstract and compute. Description of associations: [place]. Description of abnormal or psychotic thoughts: No psychotic thought. Judgment: Improved. Insight:. Improved. Orientation: 3. Recent and remote memory: Intact. Attention span and concentration:. No disturbance. Language:. No gross disturbance. Fund of knowledge: Adequate. Mood: Good. Affect: Bright. DIAGNOSES: 1. Depression, anxiety. . ASSESSMENT: As above MANAGEMENT PLAN:, Beginning to plan discharge. Vistaril in afternoon helped relieve her anxiety. TIME SPENT: minutes. Vital Signs Vital Signs Date Time Temp Pulse Resp B/P (MAP) Pulse Ox O2 Delivery O2 Flow Rate FiO2 06/16/20 05:56 98.8 70 18 125/67 (86) 99 Room Air Current Medications Current Medications Medications (Trade) Dose Ordered Sig/Naida Route PRN Reason Start Time Stop Time Status Last Admin Dose Admin Al Hydrox/Mg Hydrox/Simethicone (Mylanta) 30 ml Q4HP PRN PO HEARTBURN/INDIGESTION 06/13/20 10:30 Gabapentin (Neurontin) 600 mg QHS PO 06/13/20 21:00 06/15/20 20:53 Home Med (Med Rec Complete!) ASDIRECTED XX 06/12/20 20:50 06/12/20 20:50 DC Hydroxyzine HCl (Atarax) 25 mg DAILY@1600 PO 06/15/20 16:00 06/16/20 15:01 Ibuprofen (Advil) 400 mg Q6HP PRN PO PAIN 06/13/20 10:30 06/16/20 06:17 Magnesium Hydroxide (Milk Of Magnesia) 30 ml DAILYPRN PRN PO CONSTIPATION 06/13/20 10:30 Quetiapine Fumarate (SEROquel) 300 mg QHS PO 06/13/20 21:00 06/15/20 20:53 Sertraline HCl (Zoloft) 100 mg DAILY PO 06/14/20 09:00 06/14/20 15:46 DC 06/14/20 08:05 Sertraline HCl (Zoloft) 150 mg DAILY PO 06/15/20 09:00 06/16/20 08:24 Trazodone HCl (Desyrel) 100 mg QHS PO 06/14/20 21:00 06/15/20 20:53 Trazodone HCl (Desyrel) 150 mg QHS PO 06/13/20 21:00 06/14/20 15:46 DC 06/13/20 21:18 Allergies Coded Allergies: No Known Allergies (Unverified , 02/22/16) KADE BALLESTEROS MD Jun 16, 2020 16:50
[2020-06-16] MEDS: traZODone 100 MG TAB PO SCH (21:43)
[2020-06-16] MEDS: GABAPENTIN 300 MG CAP PO SCH (21:43)
[2020-06-16] MEDS: QUEtiapine FUMARATE 100 MG TAB PO SCH (21:43)
[2020-06-17 06:32] VITALS: BP 140/65
[2020-06-17] MEDS: SERTRALINE HCL 50 MG TAB PO SCH (08:18)
[2020-06-17] MEDS: hydrOXYzine 25 MG TAB PO SCH (15:04)
[2020-06-17 16:18] VITALS: BP 119/74
--- NOTE | 2020-06-17 17:23 | MHIPNPDOC ---
[facility] Progress Note Progress Note DATE OF SERVICE: 06/17/20 HISTORY: 25-year-old, significant anxiety and depression. She says that she has been more anxious today because of the "commotion" at the Unit but she feels th at that other people she has made friends at the Unit have been very supportive of her. VITAL SIGNS: See below. NEW TEST RESULTS: None. CURRENT MEDICATIONS: See below. MENTAL STATUS EXAMINATION: Patient is a. 25-year old female, who is reports having an anxiety level of 6- 7/10 and her depression is a 5/10 ( she says that is good for her because is always around a 7-8) Speech: Is. No gross disturbance. Language skills are disturbance. Thought processes including: No gross disturbance. Thought content: No gross disturbance. Abstract reasoning, and computation: No gross disturbance able to abstract and compute. Description of associations: Association. Description of abnormal or psychotic thoughts: No psychotic thought. Judgment: Improved. Insight:. Improved. Orientation: 3. Recent and remote memory: Intact. Attention span and concentration:. No disturbance. Language:. No gross disturbance. Fund of knowledge: Adequate. Mood: Good. Affect: Bright. DIAGNOSES: 1. Depression, anxiety. ASSESSMENT: She is sleeping better, her anxiety and depression are decreasing. She denies having suicidal thoughts, denies panic attacks but when she feels there's "a commotion" at the Unit, she is able to control it by staying in her room, she practices relaxation techniques. MANAGEMENT PLAN: Will continue with current treatment plan TIME SPENT: 20 minutes. Vital Signs Vital Signs Date Time Temp Pulse Resp B/P (MAP) Pulse Ox O2 Delivery O2 Flow Rate FiO2 06/17/20 16:18 97.7 87 16 119/74 (89) 98 Room Air Current Medications Current Medications Medications (Trade) Dose Ordered Sig/Naida Route PRN Reason Start Time Stop Time Status Last Admin Dose Admin Al Hydrox/Mg Hydrox/Simethicone (Mylanta) 30 ml Q4HP PRN PO HEARTBURN/INDIGESTION 06/13/20 10:30 Gabapentin (Neurontin) 600 mg QHS PO 06/13/20 21:00 06/16/20 21:43 Home Med (Med Rec Complete!) ASDIRECTED XX 06/12/20 20:50 06/12/20 20:50 DC Hydroxyzine HCl (Atarax) 25 mg DAILY@1600 PO 06/15/20 16:00 06/17/20 15:04 Ibuprofen (Advil) 400 mg Q6HP PRN PO PAIN 06/13/20 10:30 06/16/20 06:17 Magnesium Hydroxide (Milk Of Magnesia) 30 ml DAILYPRN PRN PO CONSTIPATION 06/13/20 10:30 Quetiapine Fumarate (SEROquel) 300 mg QHS PO 06/13/20 21:00 06/16/20 21:43 Sertraline HCl (Zoloft) 100 mg DAILY PO 06/14/20 09:00 06/14/20 15:46 DC 06/14/20 08:05 Sertraline HCl (Zoloft) 150 mg DAILY PO 06/15/20 09:00 06/17/20 08:18 Trazodone HCl (Desyrel) 100 mg QHS PO 06/14/20 21:00 06/16/20 21:43 Trazodone HCl (Desyrel) 150 mg QHS PO 06/13/20 21:00 06/14/20 15:46 DC 06/13/20 21:18 Allergies Coded Allergies: No Known Allergies (Unverified , 02/22/16) ZANE SHABAZZ MD Jun 17, 2020 17:23
[2020-06-17] MEDS: GABAPENTIN 300 MG CAP PO SCH (21:32)
[2020-06-17] MEDS: traZODone 100 MG TAB PO SCH (21:32)
[2020-06-17] MEDS: QUEtiapine FUMARATE 100 MG TAB PO SCH (21:33)
[2020-06-17] MEDS: IBUPROFEN 400MG TAB PO PRN (21:35)
[2020-06-18] MEDS: IBUPROFEN 400MG TAB PO PRN (06:23)
[2020-06-18 06:40] VITALS: BP 110/57
[2020-06-18] MEDS: SERTRALINE HCL 50 MG TAB PO SCH (08:29)
[2020-06-18] MEDS: hydrOXYzine 25 MG TAB PO SCH (15:12)
[2020-06-18 16:16] VITALS: BP 129/82
[2020-06-18] MEDS: GABAPENTIN 300 MG CAP PO SCH (21:03)
[2020-06-18] MEDS: QUEtiapine FUMARATE 100 MG TAB PO SCH (21:03)
[2020-06-18] MEDS: traZODone 100 MG TAB PO SCH (21:03)
[2020-06-19] MEDS: IBUPROFEN 400MG TAB PO PRN (05:25)
[2020-06-19 06:57] VITALS: BP 134/70
[2020-06-19] MEDS: SERTRALINE HCL 50 MG TAB PO SCH (08:30)
[2020-06-19] MEDS ORDERED: HYDR-3363 PO (08:33)
[2020-06-19] MEDS ORDERED: TRAZ-257 PO (08:33)
[2020-06-19] MEDS ORDERED: SERT50TA29 PO (08:33)
[2020-06-19] MEDS: hydrOXYzine 25 MG TAB PO SCH (15:02)
--- NOTE | 2020-06-19 15:08 | MHDSPDOC ---
[facility] Discharge Summary Discharge Summary DATE OF ADMISSION: Jun 13, 2020 at 10:29 DATE OF DISCHARGE: DISCHARGE DIAGNOSES: 1., Depression, anxiety. 2. Recent stressors. REASON FOR ADMISSION: 25-year-old female with intellectual disability suffering from panic attacks and depression and difficulty being alone CONSULTANTS INVOLVED:, None TREATMENT AND PROGRESS ON THE UNIT :. She was placed on increased dose of Zoloft and Vistaril was added an afternoon. HOSPITAL COURSE: Patient significantly improved DISCHARGE ASSESSMENT: Depression, anxiety and difficulty with loneliness in this young lady with some intellectual and physical disability MENTAL STATUS EXAMINATION ON DISCHARGE: Patient is a, 25-year old female, who is, in improved mood. Speech is. No gross disturbance. Language skills no gross disturbance. Thought processes including:. No gross disturbance. Thought content: Attempt to develop boundaries and take better care of herself. Abstract reasoning, and computation: Reasonable. Abstraction. Description of associations:. No loose associations. Description of abnormal or psychotic thoughts:, No psychotic thoughts or suicidal or homicidal thought. Judgment: Fair. Insight: Reasonable. Orientation to 3. Recent and remote memory: Intact. Attention span and concentration:. Reasonable. Language:. No gross disturbance. Fund of knowledge: Reasonable. Mood: Good. Affect:, Congruent. MEDICATIONS ON DISCHARGE: -, 150 mg, Zoloft for, depression and anxiety. -. Seroquel 300 mg at bedtime for sleep and anxiety -Gabapentin 600 mghs and Vistaril 25 mg at 4 PM for anxiety PLAN/FOLLOWUP ARRANGEMENTS: As per interstate planner. The amount of time spent in the coordination of care for this patient was approximately 35 minutes. ETOH/Disorder Med Rx ETOH/DRUG DISORDER RX: N/A Vital Signs/I&Os Vital Signs Date Time Temp Pulse Resp B/P (MAP) Pulse Ox O2 Delivery O2 Flow Rate FiO2 06/19/20 06:57 96.5 107 16 134/70 (91) 96 Room Air Medications Scheduled Gabapentin (Gabapentin) 600 Mg Tablet, 600 MG PO QHS, (Reported) Hydroxyzine HCl (Hydroxyzine HCl) 25 Mg Tablet, 25 MG PO DAILY@1600 for anxiety, #10 Medroxyprogesterone Acetate (Medroxyprogesterone Acetate) 150 Mg/1 Ml Vial, 1 ML IM Q3M, (Reported) APPT FOR 06/14/20 Melatonin (Melatonin) 5 Mg Capsule, 5 MG PO QHS, (Reported) Quetiapine Fumarate (Quetiapine Fumarate) 300 Mg Tablet, 300 MG PO QHS, (Reported) Sertraline HCl (Sertraline HCl) 50 Mg Tablet, 150 MG PO DAILY for mood, #30 Trazodone HCl (Trazodone HCl) 100 Mg Tablet, 100 MG PO QHS for sleep, #10 Allergies Coded Allergies: No Known Allergies (Unverified , 02/22/16) KADE BALLESTEROS MD Jun 19, 2020 15:08
== END 2020-06-19 14:20 | disposition home or self-care (01) | DRG 881 ==
LOC: M ED 11:03 → M ED INP 06-13 10:29 → M PSY 06-13 12:33
PROVIDERS: ADMIT Psychiatry & Neurology Child & Adolescent Psychiatry; ATTEND Psychiatry & Neurology Child & Adolescent Psychiatry
DX: F32.9 Major depressive disorder, single episode, unspecified (principal); R45.851 Suicidal ideations; F41.9 Anxiety disorder, unspecified; F79 Unspecified intellectual disabilities; Z79.899 Other long term (current) drug therapy; M54.5 Low back pain; Z87.891 Personal history of nicotine dependence

== ENCOUNTER 2021-02-12 22:05 | Emergency (ER) | payer MEDICARE, MEDICAID ==
[~2021-02-12] VITALS: Ht 157.5 cm; Wt 72.7 kg
[~2021-02-12 22:05] MED LIST changes: +GABA-283 PO; -GABA-845 PO; +HYDR-3363 PO; +MEDR150I10 IM; +MELA5CAP2 PO; +QUET1TAB17 PO; -QUET25TA3 PO; +TRAZ-257 PO; +TRAZ150T90 PO
--- OUTSIDE RECORDS SUMMARY | 2021-02-12 22:11 | CCD ---
Author Author Mariia Carlson [facility] Address Unknown Phone Unavailable Care Team Providers Care Chef Name Role Phone Shyla Carlson PCP Unavailable Allergies, Adverse Reactions, Alerts Allergy Substance Code C odeSystem Reaction Severity Critic ality Status Start Date nkda Moderate Active Medications Medication Medication Code Medication CodeSystem Start Date Stop Date Route Dose Status Fill Instructions Zyprexa 955823 RxNorm 2017-01-09 2017-01-16 oral 5 mg tablet completed for 7 day(s) gabapentin 556427 RxNorm 2017-02-27 2017-03-11 oral 300 mg capsule completed buspirone 422414 RxNorm 2016-10-30 2016-11-29 oral 10 mg 2 tablet three times a day completed Take 2 tablet by mouth three times a day for 30 day(s) trazodone 276533 RxNorm 2018-07-27 2018-08-26 oral 50 mg tablet active for 30 day(s) Lamictal 304771 RxNorm 2017-02-12 2017-03-11 oral 200 mg 1 tablet once a day completed Take 1 tablet by mouth once a day for 7 day(s) trazodone 467883 RxNorm 2018-06-09 2018-07-26 oral 50 mg tablet completed for 30 day(s) gabapentin 532189 RxNorm 2017-02-12 2017-02-27 oral 300 mg 2 capsule twice a day completed Take 2 capsule by mouth twice a day for 7 day(s) buspirone 866250 RxNorm 2017-01-27 2017-02-10 oral 15 mg 1 tablet twice a day completed Take 1 tablet by mouth twice a day for 14 day(s) gabapentin 126514 RxNorm 2016-12-11 2016-12-18 oral 300 mg 2 capsule twice a day completed Take 2 capsule by mouth twice a day for 7 day(s) gabapentin 298127 RxNorm 2017-01-16 2017-01-23 oral 300 mg 2 capsule twice a day completed Take 2 capsule by mouth twice a day for 7 day(s) venlafaxine 502331 RxNo 2017-02-12 2017-02-18 oral 150 mg capsule,extended release 24hr completed for 7 day(s) venlafaxine 664713 RxNo 2017-02-18 2017-02-27 oral 150 mg capsule,extended release 24hr completed for 7 day(s) [facility] 2016-11-29 oral 200 mg tablet completed for 30 day(s) [facility] 189082 [facility]12 2017-03-11 oral 15 mg 1 tablet twice a day completed Take 1 tablet by mouth twice a day for 7 day(s) Effexor XR 806356 [facility] 2017-03-11 2017-04-08 oral 75 mg capsule,extended release 24hr completed for 14 day(s) gabapentin 115746 [facility] 2017-01-27 2017-02-10 oral 300 mg 2 capsule twice a day completed Take 2 capsule by mouth twice a day for 14 day(s) [facility] 336163 [facility] 2017-03-11 oral 150 mg capsule,extended release 24hr completed for 7 day(s) gabapentin 947720 [facility] 2016-10-30 2016-11-29 oral 300 mg 1 capsule three times a day c ompleted Take 1 capsule by mouth three times a da y for 30 day(s) buspirone 844364 RxNo 2016-12-02 2017-01-01 oral 15 mg 1 tablet twice a day completed Take 1 tablet by mouth twice a day for 30 day(s) [facility] 289[facility] 2017-04-08 oral 15 mg 1 tablet twice a day completed Take 1 tablet by mouth twice a day for 14 day(s) Zoloft 709788 [facility] 2018-06-26 2018-07-26 oral 50 mg tablet completed for 30 day(s) Lamictal 855177 [facility] 2017-01-09 2017-01-16 oral 200 mg 1 tablet once a day completed Take 1 tablet by mouth once a day for 7 day(s) venlafaxine 339763 [facility] 2017-01-09 2017-01-16 oral 150 mg capsule,extended release 24hr completed for 7 day(s) Lamictal 453521 [facility] 2017-01-16 2017-01-23 oral 200 mg 1 tablet once a day completed Take 1 tablet by mouth once a day for 7 day(s) Zoloft 808651 [facility] 2018-06-09 2018-06-26 oral 25 mg tablet completed for 30 day(s) Zyprexa 543824 [facility] 2017-01-27 2017-02-10 oral 5 mg tablet completed for 14 day(s) venlafaxine 874421 [facility] 2017-01-27 2017-02-10 oral 150 mg capsule,extended release 24hr completed for 14 day(s) gabapentin 087060 [facility] 2017-01-09 2017-01-16 oral 300 mg 2 capsule twice a day completed Take 2 capsule by mouth twice a day for 7 day(s) sertraline 500605 [facility] 2018-07-27 oral 50 mg tablet active Lamictal 180782 [facility] 2016-12-02 2017-01-09 oral 200 mg 1 tablet once a day completed Take 1 tablet by mouth once a day for 14 day(s) venlafaxine 744545 [facility] 2016-12-02 2017-01-01 oral 150 mg capsule,extended release 24hr completed for 30 day(s) Lamictal 865071 [facility] 2016-10-30 2016-11-29 oral 200 mg 1 tablet once a day completed Take 1 tablet by mouth once a day for 30 day(s) venlafaxine 130457 [facility] 2017-03-11 2017-04-08 oral 150 mg capsule,extended release 24hr completed for 14 day(s) buspirone 321858 [facility] 2017-01-16 2017-01-23 oral 15 mg 1 tablet twice a day completed Take 1 tablet by mouth twice a day for 7 day(s) Zyprexa 602294 [facility] 2017-01-01 2017-01-09 oral 2.5 mg tablet completed for 30 day(s) Effexor XR 234663 [facility] 2017-02-18 2017-02-27 oral 75 mg capsule,extended release 24hr completed for 7 day(s) quetiapine 940939 [facility] 2016-12-02 2017-01-01 oral 200 mg tablet completed for 30 day(s) [facility] 2017-02-27 oral 5 mg tablet completed for 7 day(s) [facility] 751487 [facility] 2017-01-23 oral 150 mg capsule,extended release 24hr completed for 7 day(s) Zyprexa 995360 [facility] 2017-01-16 2017-01-23 oral 5 mg tablet completed for 7 day(s) [facility]35850 [facility]-12[facility] 2016-12-11 oral 300 mg capsule completed for 30 day(s) Lamictal 159974 [facility] 2017-01-27 2017-02-10 oral 200 mg 1 tablet once a day completed Take 1 tablet by mouth once a day for 14 day(s) buspirone 922644 [facility] 2017-01-09 2017-01-16 oral 15 mg 1 tablet twice a day completed Take 1 tablet by mouth twice a day for 7 day(s) Effexor XR 853901 [facility] 2017-02-27 2017-03-11 oral 75 mg capsule,extended release 24hr completed for 7 day(s) venlafaxine 588386 [facility] 2016-10-30 2016-11-29 oral 150 mg capsule,extended release 24hr completed for 30 day(s) Problems Problem Name Code CodeSy stem Alternate Code Alternate CodeSystem Start Date End Date Status Narrative Recurrent depressive disorder, current episode modera te [id number] SNOMED-CT 2017-08-05 Active 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 Cannabis use disorder, Moderate [id number] SNOMED-CT 2016-11-13 Active Dysthymia 94116332 SNOM ED-CT 2015-04-26 Active Unspecified anxiety disorder 132493002 SNOMED-CT 2020-08-09 Active Opioid dependence, uncomplicated 06339257 SNOMED-CT 2016-11-13 Active Recurrent depressive disorder, current episode modera te 083408254 SNOMED-CT 2015-04-26 Active Cannabis use disorder, Moderate 156021366 SNOMED-CT 2016-11-13 Active Anxiety (finding) 56278454 SNOMED-CT 2020-08-09 Active Tobacco use 788993451 S NOMED-CT 2020-08-09 Active Opioid dependence, uncomplicated 41421240 SNOMED-CT 2016-11-13 Active Recurrent depressive disorder, current episode modera te 996402417 SNOMED-CT 2015-04-26 Active Opioid dependence, uncomplicated 49696015 SNOMED-CT 2016-11-13 Active Dysthymia 97990078 SNOM ED-CT 2015-04-26 Active Recurrent depressive disorder, current episode modera te 177802784 SNOMED-CT 2017-08-05 Active 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 Cannabis use disorder, Moderate 703115357 SNOMED-CT 2016-11-13 Active 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 Relevant diagnostic tests/laboratory data Narrative No Information Procedures Procedure Name Code Code System Target Site Date of Procedure Status Service Delivery Location Device Cod e Device Name Device UID Psychotherapy, 45 minutes with patient [id number] SNOMED-CT () 2015-05-[address], [id number] Psychotherapy, 45 minutes with patient [id number] SNOMED-CT () 2015-05-[address], [id number] Psychotherapy, 45 minutes with patient [id number] SNOMED-CT () 2015-06-[address], [id number] Psychotherapy, 45 minutes with patient [id number] SNOMED-CT () 2015-06-[address], [id number] Psychotherapy, 45 minutes with patient [id number] SNOMED-CT () 2015-07-[address], [id number] Psychotherapy, 45 minutes with patient [id number] SNOMED-CT () 2015-07-[address], [id number] Psychotherapy, 45 minutes with patient [id number] SNOMED-CT () 2020-09-19 completed [address] [place], [place], [id number] Psychotherapy, 45 minutes with patient [id number] SNOMED-CT () 2020-10-26 completed [address] [place], [place], [id number] [phone] Psychotherapy, 45 minutes with patient [id number] SNOMED-CT () 2020-11-[address], [id number] Psychotherapy, 45 minutes with patient [id number] SNOMED-CT () 2018-08-[address], [id number] Psychotherapy, 45 minutes with patient [id number] SNOMED-CT () 2018-10-[address], [id number] Psychotherapy, 45 minutes with patient [id number] SNOMED-CT () 2018-11-[address], [id number] [id number] Psychotherapy, 45 minutes with patient [id number] SNOMED-CT () 2020-08-[address], [id number] Psychotherapy, 45 minutes with patient [id number] SNOMED-CT () 2020-09-[address], [id number] [phone] Psychotherapy, 45 minutes with patient [id number] SNOMED-CT () 2020-08-[address], [id number] Psychotherapy, 45 minutes with patient [id number] SNOMED-CT () 2018-03-[address], [id number] [id number] Psychotherapy, 45 minutes with patient [id number] SNOMED-CT () 2018-03-[address], [id number] [id number] Psychotherapy, 45 minutes with patient [id number] SNOMED-CT () 2018-04-[address], [id number] Psychotherapy, 45 minutes with patient [id number] SNOMED-CT () 2018-06-[address], [id number] [id number] Psychotherapy, 45 minutes with patient [id number] SNOMED-CT () 2018-06-[address], [id number] Psychotherapy, 45 minutes with patient [id number] SNOMED-CT () 2018-07-[address], [id number] Psychotherapy, 45 minutes with patient [id number] SNOMED-CT () 2017-10-[address], [id number] [id number] Psychotherapy, 45 minutes with patient [id number] SNOMED-CT () 2017-11-[address], [id number] [id number] Psychotherapy, 45 minutes with patient [id number] SNOMED-CT () 2017-12-[address], [id number] Psychotherapy, 45 minutes with patient [id number] SNOMED-CT () 2018-01-[address], [id number] [id number] Psychotherapy, 45 minutes with patient [id number] SNOMED-CT () 2018-01-[address], [id number] [id number] Psychotherapy, 45 minutes with patient [id number] SNOMED-CT () 2018-02-[address], [id number] [phone] Psychotherapy, 45 minutes with patient [id number] SNOMED-CT () 2015-12-[address], [id number] Psychotherapy, 45 minutes with patient [id number] SNOMED-CT () 2016-05-[address], [id number] [id number] Psychotherapy, 45 minutes with patient [id number] SNOMED-CT () 2017-01-[address], [id number] [id number] Psychotherapy, 45 minutes with patient [id number] SNOMED-CT () 2017-02-[address], [id number] [phone] Psychotherapy, 45 minutes with patient [id number] SNOMED-CT () 2017-03-[address], [id number] [id number] Psychotherapy, 45 minutes with patient [id number] SNOMED-CT () 2017-09-[address], [id number] [id number] Psychotherapy, 45 minutes with patient [id number] SNOMED-CT () 2015-08-[address], [id number] [phone] Psychotherapy, 45 minutes with patient [id number] SNOMED-CT () 2015-08-[address], [id number] [id number] Psychotherapy, 45 minutes with patient [id number] SNOMED-CT () 2015-10-[address], [id number] Psychotherapy, 45 minutes with patient [id number] SNOMED-CT () 2015-09-[address], [id number] [phone] Psychotherapy, 45 minutes with patient [id number] SNOMED-CT () 2015-10-[address], 550454863 [id number] Psychotherapy, 45 minutes with patient [id number] SNOMED-CT () 2015-11-[address], [id number] Initial Psychiatric Evaluation [id number] SNOMED-CT () 2016-10-[address], [id number] [phone] Initial Psychiatric Evaluation [id number] SNOMED-CT () 2018-06-[address], [id number] [phone] Initial Psychiatric Evaluation [id number] SNOMED-CT () 2020-10-[address], [id number] [id number] Family psychotherapy (without the patien t present), 50 minutes [id number] SNOMED-CT () 2018-06-[address], [id number] [phone] Health Monitoring / Risk Reduction Counseling - [facility] ediate [id number] SNOMED-CT () 2016-10-[address], [id number] [id number] Health Monitoring / Risk Reduction Counseling - Interm ediate [id number] SNOMED-CT () 2017-09-[address], [id number] [id number] Est. Patient - E&M Intermediate [id number] SNOMED-CT () 2017-02-[address], [id number] [id number] Est. Patient - E&M Intermediate [id number] SNOMED-CT () 2017-03-[address], [id number] [id number] Est. Patient - E&M Intermediate [id number] SNOMED-CT () 2018-10-[address], [id number] Est. Patient - E&M Intermediate [id number] SNOMED-CT () 2018-11-[address], [id number] [id number] Est. Patient - E&M Brief [id number] SNOMED-CT () 2017-01-[address], [id number] Est. Patient - E&M Brief [id number] SNOMED-CT () 2017-02-[address], [id number] Est. Patient - E&M Brief [id number] SNOMED-CT () 2018-09-[address], [id number] Est. Patient - E&M Expanded [id number] SNOMED-CT () 2016-11-[address], [id number] [id number] Est. Patient - E&M Expanded [id number] SNOMED-CT () 2016-12-[address], [id number] [id number] Est. Patient - E&M Expanded [id number] SNOMED-CT () 2016-12-[address], [id number] Est. Patient - E&M Expanded [id number] SNOMED-CT () 2016-12-[address], [id number] [id number] Est. Patient - E&M Expanded [id number] SNOMED-CT () 2017-01-[address], [id number] [id number] Est. Patient - E&M Expanded [id number] SNOMED-CT () 2017-01-[address], [id number] [id number] Est. Patient - E&M Expanded [id number] SNOMED-CT () 2017-01-[address], [id number] [id number] Est. Patient - E&M Expanded [id number] SNOMED-CT () 2017-02-[address], [id number] [id number] Individual Psychotherapy [id number] SNOMED-CT () 2015-05-[address], [id number] [id number] Individual Psychotherapy [id number] SNOMED-CT () 2015-07-[address], [id number] [phone] Individual Psychotherapy [id number] SNOMED-CT () 2015-10-[address], 694552469 [id number] Individual Psychotherapy [id number] SNOMED-CT () 2015-11-[address], [id number] [id number] Individual Psychotherapy [id number] SNOMED-CT () 2015-12-[address], [id number] [phone] Individual Psychotherapy [id number] SNOMED-CT () 2016-10-[address], [id number] [phone] Individual Psychotherapy [id number] SNOMED-CT () 2020-10-[address], [id number] [phone] Individual Psychotherapy [id number] SNOMED-CT () 2016-11-[address], [id number] [phone] Individual Psychotherapy [id number] SNOMED-CT () 2016-12-[address], [id number] [phone] Individual Psychotherapy [id number] SNOMED-CT () 2016-12-[address], [id number] [id number] Individual Psychotherapy [id number] SNOMED-CT () 2017-01-[address], [id number] [phone] Individual Psychotherapy [id number] SNOMED-CT () 2017-02-[address], 119603210 [id number] Individual Psychotherapy [id number] SNOMED-CT () 2018-07-[address], [id number] [id number] Individual Psychotherapy [id number] SNOMED-CT () 2015-05-[address], [id number] [id number] Individual Psychotherapy [id number] SNOMED-CT () 2015-05-[address], [id number] [id number] Individual Psychotherapy [id number] SNOMED-CT () 2015-06-[address], [id number] [phone] Individual Psychotherapy [id number] SNOMED-CT () 2015-06-[address], 634396601 [phone] Individual Psychotherapy [id number] SNOMED-CT () 2015-07-[address], [id number] [id number] Individual Psychotherapy [id number] SNOMED-CT () 2015-07-[address], 720503885 [phone] Individual Psychotherapy [id number] SNOMED-CT () 2020-09-[address], [id number] [phone] Individual Psychotherapy [id number] SNOMED-CT () 2020-10-[address], [id number] [id number] Individual Psychotherapy [id number] SNOMED-CT () 2020-11-[address], 516244817 [phone] Individual Psychotherapy [id number] SNOMED-CT () 2018-08-[address], [id number] [phone] Individual Psychotherapy [id number] SNOMED-CT () 2018-10-[address], [id number] [id number] Individual Psychotherapy [id number] SNOMED-CT () 2018-11-[address], [id number] [id number] Individual Psychotherapy [id number] SNOMED-CT () 2020-08-[address], [id number] [phone] Individual Psychotherapy [id number] SNOMED-CT () 2020-09-[address], [id number] [phone] Individual Psychotherapy [id number] SNOMED-CT () 2020-08-[address], [id number] [phone] Individual Psychotherapy [id number] SNOMED-CT () 2018-03-[address], 164689683 [phone] Individual Psychotherapy [id number] SNOMED-CT () 2018-03-[address], [id number] Individual Psychotherapy [id number] SNOMED-CT () 2018-04-[address], [id number] [id number] Individual Psychotherapy [id number] SNOMED-CT () 2018-06-[address], 123123766 [id number] Individual Psychotherapy [id number] SNOMED-CT () 2018-06-[address], 749486988 [id number] Individual Psychotherapy [id number] SNOMED-CT () 2018-07-[address], 407148829 [id number] Individual Psychotherapy [id number] SNOMED-CT () 2017-10-[address], [id number] [phone] Individual Psychotherapy [id number] SNOMED-CT () 2017-11-[address], 744403558 [phone] Individual Psychotherapy [id number] SNOMED-CT () 2017-12-[address], 185702911 [id number] Individual Psychotherapy [id number] SNOMED-CT () 2018-01-[address], 282538969 [phone] Individual Psychotherapy [id number] SNOMED-CT () 2018-01-29 completed [facility] [address], [id number] [id number] Individual Psychotherapy [id number] SNOMED-CT () 2018-02-[address], 464596179 [phone] Individual Psychotherapy [id number] SNOMED-CT () 2015-12-[address], 091530996 [phone] Individual Psychotherapy [id number] SNOMED-CT () 2016-05-[address], [id number] [phone] Individual Psychotherapy [id number] SNOMED-CT () 2017-01-[address], [id number] [id number] Individual Psychotherapy [id number] SNOMED-CT () 2017-02-[address], 069975295 [phone] Individual Psychotherapy [id number] SNOMED-CT () 2017-03-[address], 871479197 [phone] Individual Psychotherapy [id number] SNOMED-CT () 2017-09-[address], 188995068 [phone] Individual Psychotherapy [id number] SNOMED-CT () 2015-08-[address], 579570487 [id number] Individual Psychotherapy [id number] SNOMED-CT () 2015-08-[address], 765825579 [phone] Individual Psychotherapy [id number] SNOMED-CT () 2015-10-[address], 223604911 [id number] Individual Psychotherapy [id number] SNOMED-CT () 2015-09-[address], [id number] [id number] Individual Psychotherapy [id number] SNOMED-CT () 2015-10-[address], 636774075 [phone] Individual Psychotherapy [id number] SNOMED-CT () 2015-11-[address], [id number] [phone] Psychiatric Diagnostic Evaluation without medical serv ices [id number] SNOMED-CT () 2015-04-[address], 677393248 [id number] Psychiatric Diagnostic Evaluation without medical serv ices [id number] SNOMED-CT () 2016-10-[address], [id number] [phone] Psychiatric Diagnostic Evaluation without medical serv ices [id number] SNOMED-CT () 2016-11-[address], [id number] [id number] Psychiatric Diagnostic Evaluation without medical serv ices [id number] SNOMED-CT () 2017-07-[address], [id number] [phone] Psychiatric Diagnostic Evaluation without medical serv ices [id number] SNOMED-CT () 2017-08-[address], 858552759 [id number] Psychiatric Diagnostic Evaluation without medical serv ices [id number] SNOMED-CT () 2020-08-[address], [id number] [id number] SNOMED-CT () 2016-12-[address], 799804791 [id number] SNOMED-CT () 2016-12-[address], [id number] SNOMED-CT () 2016-10-[address], [id number] SNOMED-CT () 2020-09-[address], 409649029 [id number] SNOMED-CT () 2020-08-[address], 920838807 [id number] SNOMED-CT () 2020-08-[address], 488425208 [id number] SNOMED-CT () 2020-09-[address], 213983007 [id number] SNOMED-CT () 2020-08-[address], 860518297 [id number] SNOMED-CT () 2017-05-[address], 814664034 [id number] SNOMED-CT () 2016-12-[address], [id number] [id number] SNOMED-CT () 2017-02-[address], 814363698 [id number] SNOMED-CT () 2018-04-[address], [id number] [id number] Encounters/Encounter Diagnoses Encounter Name Encounter Code Diagnosis Code Diagnosis Name Diagnosis CodeSystem Date of Diagnosis Service Delivery L ocation Pyschotherapy 30 Minute with Patient [id number] Recurrent depressive disorder, current e pisode moderate SNOMED-CT 2020-11-09 [facility] [address] [place] [address], [id number] Vital Signs Code CodeSystem Vitals Date Value 8302-2 [facility] Height 2018-10-13 60 [in_i] 78952-9 [facility] Weight 2018-10-13 122 [lb_av] 8462-4 [facility] Blood Press ure-Diastolic 2018-10-13 104 mm[HG] 78889-4 [facility] BMI 2018-10-13 23.82 (lb/in2) 8867-4 [facility] Heart Rate 2018-10-13 66 /min 8480-6 [facility] Blood Press ure-Systolic 2018-10-13 59 mm[HG] Social History Element Description Description Start Date End Date Code CodeSystem AdditionalInfo SexAssignedAtBirth Female 1995 F AdministrativeGender [facility] Discharge Instructions * Reason For Referral Medical Equipment * FDA Assessments *
--- OUTSIDE RECORDS SUMMARY | 2021-02-12 22:11 | CCD ---
Author Author Mariia Carlson [facility] Address Unknown Phone Unavailable Care Team Providers Care Life Trainer Name Role Phone Shyla Carlson PCP Unavailable Allergies, Adverse Reactions, Alerts Allergy Substance Code C odeSystem Reaction Severity Critic ality Status Start Date nkda Moderate Active Medications Medication Medication Code Medication CodeSystem Start Date Stop Date Route Dose Status Fill Instructions Zyprexa 670028 RxNo 2017-02-12 2017-02-27 oral 5 mg tablet completed for 7 day(s) sertraline 302446 RxNorm 2018-07-27 oral 50 mg tablet active gabapentin 651804 RxNorm 2017-01-27 2017-02-10 oral 300 mg 2 capsule twice a day completed Take 2 capsule by mouth twice a day for 14 day(s) Zoloft 975184 RxNorm 2018-06-09 2018-06-26 oral 25 mg tablet completed for 30 day(s) venlafaxine 463358 RxNorm 2017-01-09 2017-01-16 oral 150 mg capsule,extended release 24hr completed for 7 day(s) Lamictal 028321 RxNorm 2017-02-12 2017-03-11 oral 200 mg 1 tablet once a day completed Take 1 tablet by mouth once a day for 7 day(s) quetiapine 710985 RxNorm 2016-10-30 2016-11-29 oral 200 mg tablet completed for 30 day(s) Lamictal 880283 RxNorm 2017-01-09 2017-01-16 oral 200 mg 1 tablet once a day completed Take 1 tablet by mouth once a day for 7 day(s) gabapentin 311443 RxNorm 2017-02-12 2017-02-27 oral 300 mg 2 capsule twice a day completed Take 2 capsule by mouth twice a day for 7 day(s) Effexor XR 977307 RxNorm 2017-02-18 2017-02-27 oral 75 mg capsule,extended release 24hr completed for 7 day(s) Effexor XR 543839 RxNo 2017-03-11 2017-04-08 oral 75 mg capsule,extended release 24hr completed for 14 day(s) Zyprexa 068313 RxNo 2017-01-27 2017-02-10 oral 5 mg tablet completed for 14 day(s) Lamictal 624760 RxNo 2017-01-16 2017-01-23 oral 200 mg 1 tablet once a day completed Take 1 tablet by mouth once a day for 7 day(s) gabapentin 861408 RxNo 2017-01-09 2017-01-16 oral 300 mg 2 capsule twice a day completed Take 2 capsule by mouth twice a day for 7 day(s) buspirone 919489 RxNo 2017-02-12 2017-03-11 oral 15 mg 1 tablet twice a day completed Take 1 tablet by mouth twice a day for 7 day(s) trazodone 705808 RxNo 2018-07-27 2018-08-26 oral 50 mg tablet active for 30 day(s) gabapentin 942194 RxNo 2016-12-02 2016-12-11 oral 300 mg capsule completed for 30 day(s) buspirone 383307 RxNo 2017-01-27 2017-02-10 oral 15 mg 1 tablet twice a day completed Take 1 tablet by mouth twice a day for 14 day(s) gabapentin 196715 RxNo 2017-02-27 2017-03-11 oral 300 mg capsule completed buspirone 120415 RxNo 2017-03-11 2017-04-08 oral 15 mg 1 tablet twice a day completed Take 1 tablet by mouth twice a day for 14 day(s) venlafaxine 369028 RxNo 2017-01-16 2017-01-23 oral 150 mg capsule,extended release 24hr completed for 7 day(s) venlafaxine 019921 RxNo 2017-02-27 2017-03-11 oral 150 mg capsule,extended release 24hr completed for 7 day(s) buspirone 399730 RxNo 2016-10-30 2016-11-29 oral 10 mg 2 tablet three times a day completed Take 2 tablet by mouth three times a day for 30 day(s) Zoloft 541919 [facility] 2018-06-26 2018-07-26 oral 50 mg tablet completed for 30 day(s) Zyprexa 514578 [facility] 2017-01-01 2017-01-09 oral 2.5 mg tablet completed for 30 day(s) Lamictal 737633 [facility] 2017-01-27 2017-02-10 oral 200 mg 1 tablet once a day completed Take 1 tablet by mouth once a day for 14 day(s) venlafaxine 615866 [facility] 2017-03-11 2017-04-08 oral 150 mg capsule,extended release 24hr completed for 14 day(s) Lamictal 002558 [facility] 2016-10-30 2016-11-29 oral 200 mg 1 tablet once a day completed Take 1 tablet by mouth once a day for 30 day(s) venlafaxine 846810 [facility] 2016-10-30 2016-11-29 oral 150 mg capsule,extended release 24hr completed for 30 day(s) Zyprexa 860905 [facility] 2017-01-16 2017-01-23 oral 5 mg tablet completed for 7 day(s) quetiapine 005104 [facility] 2016-12-02 2017-01-01 oral 200 mg tablet completed for 30 day(s) buspirone 321097 [facility] 2016-12-02 2017-01-01 oral 15 mg 1 tablet twice a day completed Take 1 tablet by mouth twice a day for 30 day(s) venlafaxine 125735 [facility] 2016-12-02 2017-01-01 oral 150 mg capsule,extended release 24hr completed for 30 day(s) gabapentin 756396 [facility] 2016-12-11 2016-12-18 oral 300 mg 2 capsule twice a day completed Take 2 capsule by mouth twice a day for 7 day(s) Effexor XR 948795 [facility] 2017-02-27 2017-03-11 oral 75 mg capsule,extended release 24hr completed for 7 day(s) venlafaxine 225229 [facility] 2017-02-12 2017-02-18 oral 150 mg capsule,extended release 24hr completed for 7 day(s) buspirone 064255 [facility] 2017-01-09 2017-01-16 oral 15 mg 1 tablet twice a day completed Take 1 tablet by mouth twice a day for 7 day(s) buspirone 438109 RxNorm 2017-01-16 2017-01-23 oral 15 mg 1 tablet twice a day completed Take 1 tablet by mouth twice a day for 7 day(s) venlafaxine 443853 RxNorm 2017-02-18 2017-02-27 oral 150 mg capsule,extended release 24hr completed for 7 day(s) trazodone 588804 RxNorm 2018-06-09 2018-07-26 oral 50 mg tablet completed for 30 day(s) Zyprexa 002880 RxNorm 2017-01-09 2017-01-16 oral 5 mg tablet completed for 7 day(s) gabapentin 546692 RxNorm 2016-10-30 2016-11-29 oral 300 mg 1 capsule three times a day c ompleted Take 1 capsule by mouth three times a da y for 30 day(s) Lamictal 969990 RxNorm 2016-12-02 2017-01-09 oral 200 mg 1 tablet once a day completed Take 1 tablet by mouth once a day for 14 day(s) gabapentin 065189 RxNorm 2017-01-16 2017-01-23 oral 300 mg 2 capsule twice a day completed Take 2 capsule by mouth twice a day for 7 day(s) venlafaxine 825490 RxNo 2017-01-27 2017-02-10 oral 150 mg capsule,extended release 24hr completed for 14 day(s) Problems Problem Name Code CodeSy stem Alternate Code Alternate CodeSystem Start Date End Date Status Narrative Unspecified anxiety disorder [id number] SNOMED-CT 2020-08-09 Active Opioid dependence, uncomplicated 47767834 SNOMED-CT 2016-11-13 Active 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 Dysthymia 95539720 SNOM ED-CT 2015-04-26 Active Recurrent depressive disorder, current episode modera te 765510348 SNOMED-CT 2017-08-05 Active 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 Dysthymia 85858018 SNOM ED-CT 2015-04-26 Active Opioid dependence, uncomplicated 06425670 SNOMED-CT 2016-11-13 Active 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 Recurrent depressive disorder, current episode modera te 769734950 SNOMED-CT 2015-04-26 Active Cannabis use disorder, Moderate 935355151 SNOMED-CT 2016-11-13 Active Anxiety (finding) 21742671 SNOMED-CT 2020-08-09 Active Opioid dependence, uncomplicated 65448710 SNOMED-CT 2016-11-13 Active Tobacco use 218972145 S NOMED-CT 2020-08-09 Active Cannabis use disorder, Moderate 144507147 SNOMED-CT 2016-11-13 Active Cannabis use disorder, Moderate 269452954 SNOMED-CT 2016-11-13 Active Recurrent depressive disorder, current episode modera te 078827156 SNOMED-CT 2015-04-26 Active Recurrent depressive disorder, current episode modera te 153659119 SNOMED-CT 2017-08-05 Active Relevant diagnostic tests/laboratory data Narrative No Information Procedures Procedure Name Code Code System Target Site Date of Procedure Status Service Delivery Location Device Cod e Device Name Device UID Psychotherapy, 45 minutes with patient [id number] SNOMED-CT () 2015-05-[address], [id number] Psychotherapy, 45 minutes with patient [id number] SNOMED-CT () 2015-05-[address], [id number] Psychotherapy, 45 minutes with patient [id number] SNOMED-CT () 2015-06-[address], [id number] [id number] Psychotherapy, 45 minutes with patient [id number] SNOMED-CT () 2015-06-[address], [id number] Psychotherapy, 45 minutes with patient [id number] SNOMED-CT () 2015-07-[address], [id number] [id number] Psychotherapy, 45 minutes with patient [id number] SNOMED-CT () 2015-07-[address], [id number] Psychotherapy, 45 minutes with patient [id number] SNOMED-CT () 2020-09-[address], [id number] Psychotherapy, 45 minutes with patient [id number] SNOMED-CT () 2020-10-[address], [id number] Psychotherapy, 45 minutes with patient [id number] SNOMED-CT () 2018-08-[address], [id number] Psychotherapy, 45 minutes with patient [id number] SNOMED-CT () 2018-10-[address], [id number] Psychotherapy, 45 minutes with patient [id number] SNOMED-CT () 2018-11-[address], [id number] Psychotherapy, 45 minutes with patient [id number] SNOMED-CT () 2020-08-[address], [id number] Psychotherapy, 45 minutes with patient [id number] SNOMED-CT () 2020-09-[address], [id number] Psychotherapy, 45 minutes with patient [id number] SNOMED-CT () 2020-08-[address], [id number] Psychotherapy, 45 minutes with patient [id number] SNOMED-CT () 2018-03-[address], [id number] Psychotherapy, 45 minutes with patient [id number] SNOMED-CT () 2018-03-[address], [id number] [id number] Psychotherapy, 45 minutes with patient [id number] SNOMED-CT () 2018-04-[address], [id number] Psychotherapy, 45 minutes with patient [id number] SNOMED-CT () 2018-06-[address], [id number] Psychotherapy, 45 minutes with patient [id number] SNOMED-CT () 2018-06-[address], [id number] [id number] Psychotherapy, 45 minutes with patient [id number] SNOMED-CT () 2018-07-[address], [id number] Psychotherapy, 45 minutes with patient [id number] SNOMED-CT () 2017-10-[address], [id number] Psychotherapy, 45 minutes with patient [id number] SNOMED-CT () 2017-11-[address], [id number] [id number] Psychotherapy, 45 minutes with patient [id number] SNOMED-CT () 2017-12-[address], [id number] Psychotherapy, 45 minutes with patient [id number] SNOMED-CT () 2018-01-[address], [id number] [id number] Psychotherapy, 45 minutes with patient [id number] SNOMED-CT () 2018-01-[address], [id number] Psychotherapy, 45 minutes with patient [id number] SNOMED-CT () 2018-02-[address], [id number] Psychotherapy, 45 minutes with patient [id number] SNOMED-CT () 2015-12-[address], [id number] Psychotherapy, 45 minutes with patient [id number] SNOMED-CT () 2016-05-[address], [id number] Psychotherapy, 45 minutes with patient [id number] SNOMED-CT () 2017-01-[address], [id number] Psychotherapy, 45 minutes with patient [id number] SNOMED-CT () 2017-02-[address], [id number] [id number] Psychotherapy, 45 minutes with patient [id number] SNOMED-CT () 2017-03-[address], [id number] [id number] Psychotherapy, 45 minutes with patient [id number] SNOMED-CT () 2017-09-[address], [id number] [id number] Psychotherapy, 45 minutes with patient [id number] SNOMED-CT () 2015-08-[address], [id number] Psychotherapy, 45 minutes with patient [id number] SNOMED-CT () 2015-08-[address], [id number] [id number] Psychotherapy, 45 minutes with patient [id number] SNOMED-CT () 2015-10-[address], [id number] [id number] Psychotherapy, 45 minutes with patient [id number] SNOMED-CT () 2015-09-[address], [id number] Psychotherapy, 45 minutes with patient [id number] SNOMED-CT () 2015-10-[address], [id number] [phone] Psychotherapy, 45 minutes with patient [id number] SNOMED-CT () 2015-11-[address], [id number] Initial Psychiatric Evaluation [id number] SNOMED-CT () 2016-10-[address], [id number] Initial Psychiatric Evaluation [id number] SNOMED-CT () 2018-06-[address], [id number] Initial Psychiatric Evaluation [id number] SNOMED-CT () 2020-10-[address], [id number] Family psychotherapy (without the patien t present), 50 minutes [id number] SNOMED-CT () 2018-06-[address], [id number] Health Monitoring / Risk Reduction Counseling - Interm ediate [id number] SNOMED-CT () 2016-10-[address], [id number] Health Monitoring / Risk Reduction Counseling - Interm ediate [id number] SNOMED-CT () 2017-09-[address], [id number] Est. Patient - E&M Intermediate [id number] SNOMED-CT () 2017-02-[address], [id number] [id number] Est. Patient - E&M Intermediate [id number] SNOMED-CT () 2017-03-[address], [id number] Est. Patient - E&M Intermediate [id number] SNOMED-CT () 2018-10-[address], [id number] [id number] Est. Patient - E&M Intermediate [id number] SNOMED-CT () 2018-11-[address], [id number] Est. Patient - E&M Brief [id number] SNOMED-CT () 2017-01-[address], [id number] Est. Patient - E&M Brief [id number] SNOMED-CT () 2017-02-[address], [id number] Est. Patient - E&M Brief [id number] SNOMED-CT () 2018-09-[address], [id number] [id number] Est. Patient - E&M Expanded [id number] SNOMED-CT () 2016-11-[address], [id number] [id number] Est. Patient - E&M Expanded [id number] SNOMED-CT () 2016-12-[address], [id number] Est. Patient - E&M Expanded [id number] SNOMED-CT () 2016-12-[address], [id number] Est. Patient - E&M Expanded [id number] SNOMED-CT () 2016-12-[address], [id number] Est. Patient - E&M Expanded [id number] SNOMED-CT () 2017-01-[address], [id number] Est. Patient - E&M Expanded [id number] SNOMED-CT () 2017-01-[address], [id number] Est. Patient - E&M Expanded [id number] SNOMED-CT () 2017-01-[address], [id number] Est. Patient - E&M Expanded [id number] SNOMED-CT () 2017-02-[address], [id number] [id number] Individual Psychotherapy [id number] SNOMED-CT () 2015-05-[address], [id number] [phone] Individual Psychotherapy [id number] SNOMED-CT () 2015-07-[address], [id number] [id number] Individual Psychotherapy [id number] SNOMED-CT () 2015-10-[address], [id number] Individual Psychotherapy [id number] SNOMED-CT () 2015-11-[address], [id number] [id number] Individual Psychotherapy [id number] SNOMED-CT () 2015-12-[address], [id number] Individual Psychotherapy [id number] SNOMED-CT () 2016-10-[address], 092876763 [id number] Individual Psychotherapy [id number] SNOMED-CT () 2020-10-[address], 688752686 [id number] Individual Psychotherapy [id number] SNOMED-CT () 2016-11-[address], [id number] [id number] Individual Psychotherapy [id number] SNOMED-CT () 2016-12-[address], 315831030 [id number] Individual Psychotherapy [id number] SNOMED-CT () 2016-12-[address], [id number] [id number] Individual Psychotherapy [id number] SNOMED-CT () 2017-01-[address], [id number] [id number] Individual Psychotherapy [id number] SNOMED-CT () 2017-02-[address], 577346773 [id number] Individual Psychotherapy [id number] SNOMED-CT () 2018-07-[address], [id number] [id number] Individual Psychotherapy [id number] SNOMED-CT () 2015-05-[address], [id number] [id number] Individual Psychotherapy [id number] SNOMED-CT () 2015-05-[address], [id number] [id number] Individual Psychotherapy [id number] SNOMED-CT () 2015-06-[address], 266337546 [id number] Individual Psychotherapy [id number] SNOMED-CT () 2015-06-[address], [id number] [id number] Individual Psychotherapy [id number] SNOMED-CT () 2015-07-[address], 822682572 [id number] Individual Psychotherapy [id number] SNOMED-CT () 2015-07-[address], [id number] [id number] Individual Psychotherapy [id number] SNOMED-CT () 2020-09-[address], [id number] [id number] Individual Psychotherapy [id number] SNOMED-CT () 2020-10-[address], [id number] [id number] Individual Psychotherapy [id number] SNOMED-CT () 2018-08-[address], [id number] [id number] Individual Psychotherapy [id number] SNOMED-CT () 2018-10-[address], [id number] [id number] Individual Psychotherapy [id number] SNOMED-CT () 2018-11-[address], 609150965 [id number] Individual Psychotherapy [id number] SNOMED-CT () 2020-08-[address], [id number] [id number] Individual Psychotherapy [id number] SNOMED-CT () 2020-09-[address], [id number] [id number] Individual Psychotherapy [id number] SNOMED-CT () 2020-08-[address], [id number] Individual Psychotherapy [id number] SNOMED-CT () 2018-03-[address], [id number] Individual Psychotherapy [id number] SNOMED-CT () 2018-03-[address], 719005313 [id number] Individual Psychotherapy [id number] SNOMED-CT () 2018-04-[address], [id number] Individual Psychotherapy [id number] SNOMED-CT () 2018-06-[address], 461482855 [id number] Individual Psychotherapy [id number] SNOMED-CT () 2018-06-[address], 373682937 [phone] Individual Psychotherapy [id number] SNOMED-CT () 2018-07-[address], [id number] [phone] Individual Psychotherapy [id number] SNOMED-CT () 2017-10-[address], 376868562 [id number] Individual Psychotherapy [id number] SNOMED-CT () 2017-11-[address], [id number] [id number] Individual Psychotherapy [id number] SNOMED-CT () 2017-12-[address], 439459512 [id number] Individual Psychotherapy [id number] SNOMED-CT () 2018-01-[address], 306772287 [id number] Individual Psychotherapy [id number] SNOMED-CT () 2018-01-[address], 979557054 [id number] Individual Psychotherapy [id number] SNOMED-CT () 2018-02-[address], 972481291 [id number] Individual Psychotherapy [id number] SNOMED-CT () 2015-12-[address], [id number] [id number] Individual Psychotherapy [id number] SNOMED-CT () 2016-05-[address], [id number] [id number] Individual Psychotherapy [id number] SNOMED-CT () 2017-01-[address], [id number] [id number] Individual Psychotherapy [id number] SNOMED-CT () 2017-02-[address], [id number] [id number] Individual Psychotherapy [id number] SNOMED-CT () 2017-03-[address], [id number] [id number] Individual Psychotherapy [id number] SNOMED-CT () 2017-09-[address], [id number] [id number] Individual Psychotherapy [id number] SNOMED-CT () 2015-08-[address], 498382479 [phone] Individual Psychotherapy [id number] SNOMED-CT () 2015-08-[address], 618754830 [id number] Individual Psychotherapy [id number] SNOMED-CT () 2015-10-[address], 721385541 [phone] Individual Psychotherapy [id number] SNOMED-CT () 2015-09-[address], [id number] [id number] Individual Psychotherapy [id number] SNOMED-CT () 2015-10-[address], [id number] [id number] Individual Psychotherapy [id number] SNOMED-CT () 2015-11-[address], [id number] [id number] Psychiatric Diagnostic Evaluation without medical serv ices [id number] SNOMED-CT () 2015-04-[address], 150270613 [id number] Psychiatric Diagnostic Evaluation without medical serv ices [id number] SNOMED-CT () 2016-10-[address], [id number] [id number] Psychiatric Diagnostic Evaluation without medical serv ices [id number] SNOMED-CT () 2016-11-[address], 307143897 [id number] Psychiatric Diagnostic Evaluation without medical serv ices [id number] SNOMED-CT () 2017-07-[address], [id number] [phone] Psychiatric Diagnostic Evaluation without medical serv ices [id number] SNOMED-CT () 2017-08-[address], [id number] [id number] Psychiatric Diagnostic Evaluation without medical serv ices [id number] SNOMED-CT () 2020-08-[address], [id number] SNOMED-CT () 2016-12-[address], [id number] [id number] SNOMED-CT () 2016-12-[address], [id number] [id number] SNOMED-CT () 2016-10-[address], 167734677 [id number] SNOMED-CT () 2017-05-08 [address] [place], [address] [id number] SNOMED-CT () 2016-12-12 completed [facility] [address], [id number] [id number] SNOMED-CT () 2017-02-18 completed [address], [id number] [id number] SNOMED-CT () 2018-04-06 completed [facility] [address], [id number] [phone] Encounters/Encounter Diagnoses Encounter Name Encounter Code Diagnosis Code Diagnosis Name Diagnosis CodeSystem Date of Diagnosis Service Delivery L ocation Pyschotherapy 30 Minute with Patient [id number] Recurrent depressive disorder, current e pisode moderate SNOMED-CT 2020-10-26 [facility] [address], [place], [id number] Vital Signs Code CodeSystem Vitals Date Value 8480-6 [facility] Blood Press ure-Systolic 2018-10-13 59 mm[HG] 8302-2 [facility] Height 2018-10-13 60 [in_i] 07523-1 [facility] BMI 2018-10-13 23.82 (lb/in2) 8867-4 [facility] Heart Rate 2018-10-13 66 /min 8462-4 [facility] Blood Press ure-Diastolic 2018-10-13 104 mm[HG] 84478-7 [facility] Weight 2018-10-13 122 [lb_av] Social History Element Description Description Start Date End Date Code CodeSystem AdditionalInfo SexAssignedAtBirth Female 1995 F Administrative[facility] Discharge Instructions * Reason For Referral Medical Equipment * FDA Assessments *
--- OUTSIDE RECORDS SUMMARY | 2021-02-12 22:11 | CCD ---
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 Name Role Phone Shyla Carlson PCP Unavailable Allergies, Adverse Reactions, Alerts Allergy Substance Code C odeSystem Reaction Severity Critic ality Status Start Date nkda Moderate Active Medications Medication Medication Code Medication CodeSystem Start Date Stop Date Route Dose Status Fill Instructions buspirone [id number] RxNorm 2017-03-11 2017-04-08 oral 15 mg 1 tablet twice a day completed Take 1 tablet by mouth twice a day for 14 day(s) Effexor XR 707219 RxNorm 2017-03-11 2017-04-08 oral 75 mg capsule,extended release 24hr completed for 14 day(s) buspirone 366365 RxNorm 2017-01-27 2017-02-10 oral 15 mg 1 tablet twice a day completed Take 1 tablet by mouth twice a day for 14 day(s) venlafaxine 011596 RxNorm 2017-01-16 2017-01-23 oral 150 mg capsule,extended release 24hr completed for 7 day(s) buspirone 412970 RxNorm 2017-02-12 2017-03-11 oral 15 mg 1 tablet twice a day completed Take 1 tablet by mouth twice a day for 7 day(s) Zyprexa 175428 RxNorm 2017-01-09 2017-01-16 oral 5 mg tablet completed for 7 day(s) gabapentin 582170 RxNorm 2017-01-27 2017-02-10 oral 300 mg 2 capsule twice a day completed Take 2 capsule by mouth twice a day for 14 day(s) venlafaxine 680591 RxNorm 2016-10-30 2016-11-29 oral 150 mg capsule,extended release 24hr completed for 30 day(s) gabapentin 699273 RxNorm 2016-10-30 2016-11-29 oral 300 mg 1 capsule three times a day c ompleted Take 1 capsule by mouth three times a da y for 30 day(s) sertraline 781917 [facility] 2018-07-27 oral 50 mg tablet active venlafaxine [id number] [facility] 2017-01-27 2017-02-10 oral 150 mg capsule,extended release 24hr completed for 14 day(s) buspirone 719781 RxNo 2017-01-16 2017-01-23 oral 15 mg 1 tablet twice a day completed Take 1 tablet by mouth twice a day for 7 day(s) gabapentin 162664 RxNo 2016-12-02 2016-12-11 oral 300 mg capsule completed for 30 day(s) buspirone 882380 RxNo 2016-12-02 2017-01-01 oral 15 mg 1 tablet twice a day completed Take 1 tablet by mouth twice a day for 30 day(s) gabapentin 625979 [facility] 2017-01-16 2017-01-23 oral 300 mg 2 capsule twice a day completed Take 2 capsule by mouth twice a day for 7 day(s) Lamictal 033788 [facility] 2017-02-12 2017-03-11 oral 200 mg 1 tablet once a day completed Take 1 tablet by mouth once a day for 7 day(s) trazodone 545082 [facility] 2018-07-27 2018-08-26 oral 50 mg tablet active for 30 day(s) Zoloft 571923 [facility] 2018-06-26 2018-07-26 oral 50 mg tablet completed for 30 day(s) Lamictal 333715 [facility] 2017-01-09 2017-01-16 oral 200 mg 1 tablet once a day completed Take 1 tablet by mouth once a day for 7 day(s) Lamictal 127524 [facility] 2016-10-30 2016-11-29 oral 200 mg 1 tablet once a day completed Take 1 tablet by mouth once a day for 30 day(s) gabapentin 478345 RxNo 2017-02-27 2017-03-11 oral 300 mg capsule completed gabapentin 107545 RxNo 2017-02-12 2017-02-27 oral 300 mg 2 capsule twice a day completed Take 2 capsule by mouth twice a day for 7 day(s) venlafaxine 390741 RxNo 2016-12-02 2017-01-01 oral 150 mg capsule,extended release 24hr completed for 30 day(s) venlafaxine 088732 [facility] 2017-02-27 2017-03-11 oral 150 mg capsule,extended release 24hr completed for 7 day(s) quetiapine 060656 [facility] 2016-12-02 2017-01-01 oral 200 mg tablet completed for 30 day(s) Zyprexa 149789 [facility] 2017-01-27 2017-02-10 oral 5 mg tablet completed for 14 day(s) quetiapine 896711 [facility] 2016-10-30 2016-11-29 oral 200 mg tablet completed for 30 day(s) trazodone 262928 [facility] 2018-06-09 2018-07-26 oral 50 mg tablet completed for 30 day(s) Zyprexa 493051 [facility] 2017-01-01 2017-01-09 oral 2.5 mg tablet completed for 30 day(s) Effexor XR 296862 [facility] 2017-02-18 2017-02-27 oral 75 mg capsule,extended release 24hr completed for 7 day(s) venlafaxine 765417 [facility] 2017-02-18 2017-02-27 oral 150 mg capsule,extended release 24hr completed for 7 day(s) Lamictal 430264 [facility] 2017-01-16 2017-01-23 oral 200 mg 1 tablet once a day completed Take 1 tablet by mouth once a day for 7 day(s) gabapentin 700517 [facility] 2017-01-09 2017-01-16 oral 300 mg 2 capsule twice a day completed Take 2 capsule by mouth twice a day for 7 day(s) Lamictal 037248 [facility] 2017-01-27 2017-02-10 oral 200 mg 1 tablet once a day completed Take 1 tablet by mouth once a day for 14 day(s) Lamictal 654364 [facility] 2016-12-02 2017-01-09 oral 200 mg 1 tablet once a day completed Take 1 tablet by mouth once a day for 14 day(s) Effexor XR 633887 [facility] 2017-02-27 2017-03-11 oral 75 mg capsule,extended release 24hr completed for 7 day(s) gabapentin 733588 [facility] 2016-12-11 2016-12-18 oral 300 mg 2 capsule twice a day completed Take 2 capsule by mouth twice a day for 7 day(s) venlafaxine 308858 RxNorm 2017-02-12 2017-02-18 oral 150 mg capsule,extended release 24hr completed for 7 day(s) Zyprexa 746427 RxNorm 2017-02-12 2017-02-27 oral 5 mg tablet completed for 7 day(s) venlafaxine 066862 RxNorm 2017-01-09 2017-01-16 oral 150 mg capsule,extended release 24hr completed for 7 day(s) venlafaxine 465138 RxNorm 2017-03-11 2017-04-08 oral 150 mg capsule,extended release 24hr completed for 14 day(s) buspirone 007758 RxNorm 2016-10-30 2016-11-29 oral 10 mg 2 tablet three times a day completed Take 2 tablet by mouth three times a day for 30 day(s) buspirone 654134 RxNorm 2017-01-09 2017-01-16 oral 15 mg 1 tablet twice a day completed Take 1 tablet by mouth twice a day for 7 day(s) Zoloft 982486 RxNorm 2018-06-09 2018-06-26 oral 25 mg tablet completed for 30 day(s) Zyprexa 158840 RxNorm 2017-01-16 2017-01-23 oral 5 mg tablet completed for 7 day(s) Problems Problem Name Code CodeSy stem Alternate Code Alternate CodeSystem Start Date End Date Status Narrative Recurrent depressive disorder, current episode modera te [id number] SNOMED-CT 2015-04-26 Active Cannabis use disorder, Moderate [id number] SNOMED-CT 2016-11-13 Active Dysthymia 99356925 SNOM ED-CT 2015-04-26 Active Tobacco use 670133920 S NOMED-CT 2020-08-09 Active 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 Recurrent depressive disorder, current episode modera te 676285005 SNOMED-CT 2017-08-05 Active 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 Cannabis use disorder, Moderate 787943777 SNOMED-CT 2016-11-13 Active Recurrent depressive disorder, current episode modera te 444720323 SNOMED-CT 2015-04-26 Active Unspecified anxiety disorder 599051073 SNOMED-CT 2020-08-09 Active Opioid dependence, uncomplicated 04785992 SNOMED-CT 2016-11-13 Active Anxiety (finding) 01928860 SNOMED-CT 2020-08-09 Active Recurrent depressive disorder, current episode modera te 656769550 SNOMED-CT 2017-08-05 Active Opioid dependence, uncomplicated 26749260 SNOMED-CT 2016-11-13 Active 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 Dysthymia 55894456 SNOM ED-CT 2015-04-26 Active Cannabis use disorder, Moderate 726624125 SNOMED-CT 2016-11-13 Active Opioid dependence, uncomplicated 32591473 SNOMED-CT 2016-11-13 Active Relevant diagnostic tests/laboratory data Narrative No Information Procedures Procedure Name Code Code System Target Site Date of Procedure Status Service Delivery Location Device Cod e Device Name Device UID Psychotherapy, 45 minutes with patient [id number] SNOMED-CT () 2015-05-[address], [id number] Psychotherapy, 45 minutes with patient [id number] SNOMED-CT () 2015-05-[address], [id number] Psychotherapy, 45 minutes with patient [id number] SNOMED-CT () 2015-06-[address], [id number] Psychotherapy, 45 minutes with patient [id number] SNOMED-CT () 2015-06-[address], [id number] Psychotherapy, 45 minutes with patient [id number] SNOMED-CT () 2015-07-[address], [id number] Psychotherapy, 45 minutes with patient [id number] SNOMED-CT () 2015-07-[address], [id number] Psychotherapy, 45 minutes with patient [id number] SNOMED-CT () 2021-01-05 completed [facility] [address] [place], [place], [id number] [phone] Psychotherapy, 45 minutes with patient [id number] SNOMED-CT () 2020-09-19 completed [facility] [address] [place], [place], [id number] [id number] Psychotherapy, 45 minutes with patient [id number] SNOMED-CT () 2020-10-26 completed [facility] [address] [place], [place], [id number] Psychotherapy, 45 minutes with patient [id number] SNOMED-CT () 2020-11-09 completed [facility] [address] [place], [place], [id number] Psychotherapy, 45 minutes with patient [id number] SNOMED-CT () 2020-11-[address], [id number] Psychotherapy, 45 minutes with patient [id number] SNOMED-CT () 2020-12-07 completed [facility] [address] [place], [place], [id number] Psychotherapy, 45 minutes with patient [id number] SNOMED-CT () 2020-12-[address], [id number] Psychotherapy, 45 minutes with patient [id number] SNOMED-CT () 2018-08-[address], [id number] Psychotherapy, 45 minutes with patient [id number] SNOMED-CT () 2018-10-[address], [id number] Psychotherapy, 45 minutes with patient [id number] SNOMED-CT () 2018-11-03 completed [facility] [address] [place], [place], [phone] Psychotherapy, 45 minutes with patient [id number] SNOMED-CT () 2020-08-[address], [id number] Psychotherapy, 45 minutes with patient [id number] SNOMED-CT () 2020-09-05 completed [facility] [address] [place], [place], [id number] [id number] Psychotherapy, 45 minutes with patient [id number] SNOMED-CT () 2020-08-[address], [id number] Psychotherapy, 45 minutes with patient [id number] SNOMED-CT () 2018-03-[address], [id number] Psychotherapy, 45 minutes with patient [id number] SNOMED-CT () 2018-03-[address], [id number] Psychotherapy, 45 minutes with patient [id number] SNOMED-CT () 2018-04-[address], [id number] Psychotherapy, 45 minutes with patient [id number] SNOMED-CT () 2018-06-[address], [id number] Psychotherapy, 45 minutes with patient [id number] SNOMED-CT () 2018-06-[address], [id number] Psychotherapy, 45 minutes with patient [id number] SNOMED-CT () 2018-07-[address], [id number] [id number] Psychotherapy, 45 minutes with patient [id number] SNOMED-CT () 2017-10-[address], [id number] Psychotherapy, 45 minutes with patient [id number] SNOMED-CT () 2017-11-[address], [id number] Psychotherapy, 45 minutes with patient [id number] SNOMED-CT () 2017-12-[address], [id number] Psychotherapy, 45 minutes with patient [id number] SNOMED-CT () 2018-01-[address], [id number] Psychotherapy, 45 minutes with patient [id number] SNOMED-CT () 2018-01-[address], [id number] Psychotherapy, 45 minutes with patient [id number] SNOMED-CT () 2018-02-[address], [id number] Psychotherapy, 45 minutes with patient [id number] SNOMED-CT () 2015-12-[address], [id number] [id number] Psychotherapy, 45 minutes with patient [id number] SNOMED-CT () 2016-05-[address], [id number] Psychotherapy, 45 minutes with patient [id number] SNOMED-CT () 2017-01-[address], [id number] Psychotherapy, 45 minutes with patient [id number] SNOMED-CT () 2017-02-[address], [id number] Psychotherapy, 45 minutes with patient [id number] SNOMED-CT () 2017-03-[address], [id number] Psychotherapy, 45 minutes with patient [id number] SNOMED-CT () 2017-09-[address], [id number] Psychotherapy, 45 minutes with patient [id number] SNOMED-CT () 2015-08-[address], [id number] Psychotherapy, 45 minutes with patient [id number] SNOMED-CT () 2015-08-[address], [id number] Psychotherapy, 45 minutes with patient [id number] SNOMED-CT () 2015-10-[address], [id number] Psychotherapy, 45 minutes with patient [id number] SNOMED-CT () 2015-09-[address], [id number] [id number] Psychotherapy, 45 minutes with patient [id number] SNOMED-CT () 2015-10-[address], [id number] Psychotherapy, 45 minutes with patient [id number] SNOMED-CT () 2015-11-[address], [id number] Initial Psychiatric Evaluation [id number] SNOMED-CT () 2016-10-[address], [id number] Initial Psychiatric Evaluation [id number] SNOMED-CT () 2018-06-[address], [id number] [phone] Initial Psychiatric Evaluation [id number] SNOMED-CT () 2020-10-[address], [id number] [id number] Family psychotherapy (without the patien t present), 50 minutes [id number] SNOMED-CT () 2018-06-[address], [id number] Health Monitoring / Risk Reduction Counseling - [facility] [id number] SNOMED-CT () 2016-10-[address], [id number] [id number] Health Monitoring / Risk Reduction Counseling - [facility] [id number] SNOMED-CT () 2017-09-[address], [id number] [id number] Est. Patient - E&M Intermediate [id number] SNOMED-CT () 2017-02-[address], [id number] Est. Patient - E&M Intermediate [id number] SNOMED-CT () 2017-03-[address], [id number] [id number] Est. Patient - E&M Intermediate [id number] SNOMED-CT () 2018-10-[address], [id number] Est. Patient - E&M Intermediate [id number] SNOMED-CT () 2018-11-[address], [id number] Est. Patient - E&M Brief [id number] SNOMED-CT () 2017-01-[address], [id number] [id number] Est. Patient - E&M Brief [id number] SNOMED-CT () 2017-02-[address], [id number] [id number] Est. Patient - E&M Brief [id number] SNOMED-CT () 2018-09-[address], [id number] Est. Patient - E&M Expanded [id number] SNOMED-CT () 2016-11-[address], [id number] [id number] Est. Patient - E&M Expanded [id number] SNOMED-CT () 2016-12-[address], [id number] [id number] Est. Patient - E&M Expanded [id number] SNOMED-CT () 2016-12-[address], [id number] Est. Patient - E&M Expanded [id number] SNOMED-CT () 2016-12-[address], [id number] [id number] Est. Patient - E&M Expanded [id number] SNOMED-CT () 2017-01-[address], [id number] Est. Patient - E&M Expanded [id number] SNOMED-CT () 2017-01-[address], [id number] [id number] Est. Patient - E&M Expanded [id number] SNOMED-CT () 2017-01-[address], [id number] [id number] Est. Patient - E&M Expanded [id number] SNOMED-CT () 2017-02-[address], [id number] [id number] Est. Patient - E&M Expanded [id number] SNOMED-CT () 2020-11-[address], [id number] Est. Patient - E&M Expanded [id number] SNOMED-CT () 2020-12-[address], [id number] [id number] Individual Psychotherapy [id number] SNOMED-CT () 2015-05-[address], [id number] [id number] Individual Psychotherapy [id number] SNOMED-CT () 2015-07-[address], [id number] [id number] Individual Psychotherapy [id number] SNOMED-CT () 2015-10-[address], [id number] [id number] Individual Psychotherapy [id number] SNOMED-CT () 2015-11-[address], [id number] [id number] Individual Psychotherapy [id number] SNOMED-CT () 2015-12-[address], [id number] [phone] Individual Psychotherapy [id number] SNOMED-CT () 2016-10-[address], [id number] [id number] Individual Psychotherapy [id number] SNOMED-CT () 2020-10-[address], [id number] [id number] Individual Psychotherapy [id number] SNOMED-CT () 2016-11-[address], [id number] [id number] Individual Psychotherapy [id number] SNOMED-CT () 2016-12-[address], [id number] Individual Psychotherapy [id number] SNOMED-CT () 2016-12-[address], [id number] [id number] Individual Psychotherapy [id number] SNOMED-CT () 2017-01-[address], [id number] Individual Psychotherapy [id number] SNOMED-CT () 2017-02-[address], [id number] [id number] Individual Psychotherapy [id number] SNOMED-CT () 2018-07-[address], [id number] [id number] Individual Psychotherapy [id number] SNOMED-CT () 2015-05-[address], [id number] Individual Psychotherapy [id number] SNOMED-CT () 2015-05-[address], [id number] [phone] Individual Psychotherapy [id number] SNOMED-CT () 2015-06-[address], [id number] Individual Psychotherapy [id number] SNOMED-CT () 2015-06-[address], 395836491 [id number] Individual Psychotherapy [id number] SNOMED-CT () 2015-07-[address], [id number] [phone] Individual Psychotherapy [id number] SNOMED-CT () 2015-07-[address], [id number] [id number] Individual Psychotherapy [id number] SNOMED-CT () 2021-01-[address], [id number] Individual Psychotherapy [id number] SNOMED-CT () 2020-09-[address], [id number] [id number] Individual Psychotherapy [id number] SNOMED-CT () 2020-10-[address], 276172943 [id number] Individual Psychotherapy [id number] SNOMED-CT () 2020-11-[address], [id number] [id number] Individual Psychotherapy [id number] SNOMED-CT () 2020-11-[address], [id number] [id number] Individual Psychotherapy [id number] SNOMED-CT () 2020-12-[address], 485423054 [id number] Individual Psychotherapy [id number] SNOMED-CT () 2020-12-[address], [id number] Individual Psychotherapy [id number] SNOMED-CT () 2018-08-[address], [id number] Individual Psychotherapy [id number] SNOMED-CT () 2018-10-[address], [id number] [id number] Individual Psychotherapy [id number] SNOMED-CT () 2018-11-[address], [id number] [phone] Individual Psychotherapy [id number] SNOMED-CT () 2020-08-[address], [id number] [id number] Individual Psychotherapy [id number] SNOMED-CT () 2020-09-[address], [id number] [id number] Individual Psychotherapy [id number] SNOMED-CT () 2020-08-[address], [phone] Individual Psychotherapy [id number] SNOMED-CT () 2018-03-[address], [id number] [id number] Individual Psychotherapy [id number] SNOMED-CT () 2018-03-31 completed [address], [address] [id number] Individual Psychotherapy [id number] SNOMED-CT () 2018-04-[address], [id number] [id number] Individual Psychotherapy [id number] SNOMED-CT () 2018-06-[address], [id number] [id number] Individual Psychotherapy [id number] SNOMED-CT () 2018-06-[address], [id number] [id number] Individual Psychotherapy [id number] SNOMED-CT () 2018-07-[address], 898593975 [id number] Individual Psychotherapy [id number] SNOMED-CT () 2017-10-[address], [id number] [id number] Individual Psychotherapy [id number] SNOMED-CT () 2017-11-[address], 617695720 [id number] Individual Psychotherapy [id number] SNOMED-CT () 2017-12-[address], [id number] [id number] Individual Psychotherapy [id number] SNOMED-CT () 2018-01-[address], [id number] [id number] Individual Psychotherapy [id number] SNOMED-CT () 2018-01-[address], 534662452 [id number] Individual Psychotherapy [id number] SNOMED-CT () 2018-02-[address], [id number] [id number] Individual Psychotherapy [id number] SNOMED-CT () 2015-12-[address], [id number] [id number] Individual Psychotherapy [id number] SNOMED-CT () 2016-05-[address], 288365942 [id number] Individual Psychotherapy [id number] SNOMED-CT () 2017-01-[address], 983684982 [phone] Individual Psychotherapy [id number] SNOMED-CT () 2017-02-[address], 139668326 [phone] Individual Psychotherapy [id number] SNOMED-CT () 2017-03-[address], 538900761 [phone] Individual Psychotherapy [id number] SNOMED-CT () 2017-09-[address], 317491788 [id number] Individual Psychotherapy [id number] SNOMED-CT () 2015-08-[address], [id number] [id number] Individual Psychotherapy [id number] SNOMED-CT () 2015-08-[address], [id number] Individual Psychotherapy [id number] SNOMED-CT () 2015-10-[address], 989578932 [id number] Individual Psychotherapy [id number] SNOMED-CT () 2015-09-[address], 499594501 [id number] Individual Psychotherapy [id number] SNOMED-CT () 2015-10-[address], 144452794 [id number] Individual Psychotherapy [id number] SNOMED-CT () 2015-11-[address], [id number] Psychiatric Diagnostic Evaluation without medical serv ices [id number] SNOMED-CT () 2015-04-[address], [id number] [phone] Psychiatric Diagnostic Evaluation without medical serv ices [id number] SNOMED-CT () 2016-10-[address], [id number] [id number] Psychiatric Diagnostic Evaluation without medical serv ices [id number] SNOMED-CT () 2016-11-[address], [id number] [id number] Psychiatric Diagnostic Evaluation without medical serv ices [id number] SNOMED-CT () 2017-07-[address], [id number] [id number] Psychiatric Diagnostic Evaluation without medical serv ices [id number] SNOMED-CT () 2017-08-[address], [id number] [id number] Psychiatric Diagnostic Evaluation without medical serv ices [id number] SNOMED-CT () 2020-08-[address], [id number] SNOMED-CT () 2016-12-[address], [id number] SNOMED-CT () 2016-12-[address], 176483530 [id number] SNOMED-CT () 2016-10-[address], [id number] [id number] SNOMED-CT () 2020-09-[address], 364926491 [id number] SNOMED-CT () 2020-08-[address], 602328930 [id number] SNOMED-CT () 2020-08-[address], [id number] SNOMED-CT () 2020-09-[address], [id number] [id number] SNOMED-CT () 2020-08-[address], [id number] [id number] SNOMED-CT () 2017-05-[address], 408563204 [id number] SNOMED-CT () 2016-12-12 completed [facility] [address], [id number] SNOMED-CT () 2017-02-[address], [id number] [id number] SNOMED-CT () 2018-04-[address], [id number] [id number] SNOMED-CT () 2020-12-[address], 797782371 [id number] SNOMED-CT () 2021-01-[address], [id number] [id number] Encounters/Encounter Diagnoses Encounter Name Encounter Code Diagnosis Code Diagnosis Name Diagnosis CodeSystem Date of Diagnosis Service Delivery L ocation Pyschotherapy 30 Minute with Patient [id number] Recurrent depressive disorder, current e pisode moderate SNOMED-CT 2021-01-05 Behavior[facility] [facility] [address] [place] [address], [phone] Vital Signs Code CodeSystem Vitals Date Value 8302-2 LOINC Height 2018-10-13 60 [in_i] 56394-4 [facility] Weight 2018-10-13 122 [lb_av] 8462-4 [facility] Blood Press ure-Diastolic 2018-10-13 104 mm[HG] 8867-4 [facility] Heart Rate 2018-10-13 66 /min 8480-6 [facility] Blood Press ure-Systolic 2018-10-13 59 mm[HG] 12673-0 [facility] BMI 2018-10-13 23.82 (lb/in2) Social History Element Description Description Start Date End Date Code CodeSystem AdditionalInfo SexAssignedAtBirth Female 1995 F Administrative[facility] Discharge Instructions * Reason For Referral Medical Equipment * FDA Assessments * Goals Section Goals Planned DateTime Explore and resolve issues related to adoption as a ch ild 2020-09-05
--- OUTSIDE RECORDS SUMMARY | 2021-02-12 22:11 | CCD ---
Author Author Mariia Carlson [facility] Address Unknown Phone Unavailable Care Team Providers Care Senior Trainer Name Role Phone Shyla Carlson PCP Unavailable Allergies, Adverse Reactions, Alerts Allergy Substance Code C odeSystem Reaction Severity Critic ality Status Start Date nkda Moderate Active Medications Medication Medication Code Medication CodeSystem Start Date Stop Date Route Dose Status Fill Instructions gabapentin 940463 RxNorm 2017-01-09 2017-01-16 oral 300 mg 2 capsule twice a day completed Take 2 capsule by mouth twice a day for 7 day(s) Zoloft 324164 RxNorm 2018-06-26 2018-07-26 oral 50 mg tablet completed for 30 day(s) quetiapine 896734 RxNorm 2016-12-02 2017-01-01 oral 200 mg tablet completed for 30 day(s) venlafaxine 421879 RxNorm 2017-01-16 2017-01-23 oral 150 mg capsule,extended release 24hr completed for 7 day(s) buspirone 840486 RxNorm 2017-03-11 2017-04-08 oral 15 mg 1 tablet twice a day completed Take 1 tablet by mouth twice a day for 14 day(s) venlafaxine 334318 RxNorm 2017-01-09 2017-01-16 oral 150 mg capsule,extended release 24hr completed for 7 day(s) venlafaxine 423687 RxNorm 2016-12-02 2017-01-01 oral 150 mg capsule,extended release 24hr completed for 30 day(s) gabapentin 459026 RxNorm 2017-02-27 2017-03-11 oral 300 mg capsule completed venlafaxine 590173 RxNorm 2017-03-11 2017-04-08 oral 150 mg capsule,extended release 24hr completed for 14 day(s) venlafaxine 003934 RxNorm 2017-01-27 2017-02-10 oral 150 mg capsule,extended release 24hr completed for 14 day(s) buspirone 572423 [facility] 2017-01-27 2017-02-10 oral 15 mg 1 tablet twice a day completed Take 1 tablet by mouth twice a day for 14 day(s) venlafaxine 858441 [facility] 2016-10-30 2016-11-29 oral 150 mg capsule,extended release 24hr completed for 30 day(s) Effexor XR 826302 [facility] 2017-03-11 2017-04-08 oral 75 mg capsule,extended release 24hr completed for 14 day(s) Lamictal 822479 [facility] 2016-12-02 2017-01-09 oral 200 mg 1 tablet once a day completed Take 1 tablet by mouth once a day for 14 day(s) Lamictal 608010 [facility] 2016-10-30 2016-11-29 oral 200 mg 1 tablet once a day completed Take 1 tablet by mouth once a day for 30 day(s) Effexor XR 022141 [facility] 2017-02-27 2017-03-11 oral 75 mg capsule,extended release 24hr completed for 7 day(s) Effexor XR 246043 [facility] 2017-02-18 2017-02-27 oral 75 mg capsule,extended release 24hr completed for 7 day(s) buspirone 618688 [facility] 2017-01-09 2017-01-16 oral 15 mg 1 tablet twice a day completed Take 1 tablet by mouth twice a day for 7 day(s) gabapentin 660980 [facility] 2017-01-27 2017-02-10 oral 300 mg 2 capsule twice a day completed Take 2 capsule by mouth twice a day for 14 day(s) [facility] 285[facility] 2016-12-11 oral 300 mg capsule completed for 30 day(s) Zyprexa 512713 [facility] 2017-02-12 2017-02-27 oral 5 mg tablet completed for 7 day(s) venlafaxine 571600 [facility] 2017-02-12 2017-02-18 oral 150 mg capsule,extended release 24hr completed for 7 day(s) buspirone 527913 [facility] 2016-12-02 2017-01-01 oral 15 mg 1 tablet twice a day completed Take 1 tablet by mouth twice a day for 30 day(s) buspirone 208484 [facility] 2017-01-16 2017-01-23 oral 15 mg 1 tablet twice a day completed Take 1 tablet by mouth twice a day for 7 day(s) venlafaxine 300769 [facility] 2017-02-27 2017-03-11 oral 150 mg capsule,extended release 24hr completed for 7 day(s) [facility] 832803 [facility] 2017-01-16 2017-01-23 oral 300 mg 2 capsule twice a day completed Take 2 capsule by mouth twice a day for 7 day(s) Lamictal 162054 [facility] 2017-01-16 2017-01-23 oral 200 mg 1 tablet once a day completed Take 1 tablet by mouth once a day for 7 day(s) Zyprexa 494894 [facility] 2017-01-27 2017-02-10 oral 5 mg tablet completed for 14 day(s) buspirone 584690 [facility] 2016-10-30 2016-11-29 oral 10 mg 2 tablet three times a day completed Take 2 tablet by mouth three times a day for 30 day(s) Zyprexa 430123 [facility] 2017-01-09 2017-01-16 oral 5 mg tablet completed for 7 day(s) venlafaxine 237957 [facility] 2017-02-18 2017-02-27 oral 150 mg capsule,extended release 24hr completed for 7 day(s) Zoloft 351337 [facility] 2018-06-09 2018-06-26 oral 25 mg tablet completed for 30 day(s) quetiapine 404579 [facility] 2016-10-30 2016-11-29 oral 200 mg tablet completed for 30 day(s) Lamictal 717493 [facility] 2017-01-09 2017-01-16 oral 200 mg 1 tablet once a day completed Take 1 tablet by mouth once a day for 7 day(s) Lamictal 380981 [facility] 2017-02-12 2017-03-11 oral 200 mg 1 tablet once a day completed Take 1 tablet by mouth once a day for 7 day(s) Zyprexa 351791 [facility] 2017-01-16 2017-01-23 oral 5 mg tablet completed for 7 day(s) trazodone 589244 [facility] 2018-06-09 2018-07-26 oral 50 mg tablet completed for 30 day(s) buspirone 043096 [facility] 2017-02-12 2017-03-11 oral 15 mg 1 tablet twice a day completed Take 1 tablet by mouth twice a day for 7 day(s) gabapentin 087543 Rx[facility] 2016-12-11 2016-12-18 oral 300 mg 2 capsule twice a day completed Take 2 capsule by mouth twice a day for 7 day(s) Zyprexa 243256 [facility] 2017-01-01 2017-01-09 oral 2.5 mg tablet completed for 30 day(s) trazodone 073153 Rx[facility] 2018-07-27 2018-08-26 oral 50 mg tablet active for 30 day(s) Lamictal 869886 [facility] 2017-01-27 2017-02-10 oral 200 mg 1 tablet once a day completed Take 1 tablet by mouth once a day for 14 day(s) gabapentin 911388 [facility] 2016-10-30 2016-11-29 oral 300 mg 1 capsule three times a day c ompleted Take 1 capsule by mouth three times a da y for 30 day(s) sertraline 965057 RxNorm 2018-07-27 oral 50 mg tablet active gabapentin 431390 RxNorm 2017-02-12 2017-02-27 oral 300 mg 2 capsule twice a day completed Take 2 capsule by mouth twice a day for 7 day(s) Problems Problem Name Code CodeSy stem Alternate Code Alternate CodeSystem Start Date End Date Status Narrative 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 Unspecified anxiety disorder [id number] SNOMED-CT 2020-08-09 Active Recurrent depressive disorder, current episode modera te 500458690 SNOMED-CT 2017-08-05 Active Dysthymia 42887852 SNOM ED-CT 2015-04-26 Active Recurrent depressive disorder, current episode modera te 581808229 SNOMED-CT 2015-04-26 Active 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 Dysthymia 83713299 SNOM ED-CT 2015-04-26 Active Opioid dependence, uncomplicated 16509811 SNOMED-CT 2016-11-13 Active Cannabis use disorder, Moderate 212742441 SNOMED-CT 2016-11-13 Active Tobacco use 504253883 S NOMED-CT 2020-08-09 Active Anxiety (finding) 20885355 SNOMED-CT 2020-08-09 Active Recurrent depressive disorder, current episode modera te 086260679 SNOMED-CT 2015-04-26 Active Cannabis use disorder, Moderate 578347927 SNOMED-CT 2016-11-13 Active Opioid dependence, uncomplicated 30091200 SNOMED-CT 2016-11-13 Active Emotionally unstable personality disorder 30955970 SNOMED-CT 2017-02-18 Active Opioid dependence, uncomplicated 74162274 SNOMED-CT 2016-11-13 Active Recurrent depressive disorder, current episode modera te 458538587 SNOMED-CT 2017-08-05 Active Cannabis use disorder, Moderate 037797232 SNOMED-CT 2016-11-13 Active Relevant diagnostic tests/laboratory data Narrative No Information Procedures Procedure Name Code Code System Target Site Date of Procedure Status Service Delivery Location Device Cod e Device Name Device UID Psychotherapy, 45 minutes with patient [id number] SNOMED-CT () 2015-05-[address], [id number] Psychotherapy, 45 minutes with patient [id number] SNOMED-CT () 2015-05-[address], [id number] Psychotherapy, 45 minutes with patient [id number] SNOMED-CT () 2015-06-[address], [id number] Psychotherapy, 45 minutes with patient [id number] SNOMED-CT () 2015-06-[address], [id number] Psychotherapy, 45 minutes with patient [id number] SNOMED-CT () 2015-07-[address], [id number] Psychotherapy, 45 minutes with patient [id number] SNOMED-CT () 2015-07-[address], [id number] [id number] Psychotherapy, 45 minutes with patient [id number] SNOMED-CT () 2020-09-[address], [id number] Psychotherapy, 45 minutes with patient [id number] SNOMED-CT () 2020-10-[address], [id number] [id number] Psychotherapy, 45 minutes with patient [id number] SNOMED-CT () 2020-11-[address], [id number] Psychotherapy, 45 minutes with patient [id number] SNOMED-CT () 2020-11-[address], [id number] Psychotherapy, 45 minutes with patient [id number] SNOMED-CT () 2018-08-[address], [id number] [id number] Psychotherapy, 45 minutes with patient [id number] SNOMED-CT () 2018-10-[address], [id number] Psychotherapy, 45 minutes with patient [id number] SNOMED-CT () 2018-11-[address], [id number] [id number] Psychotherapy, 45 minutes with patient [id number] SNOMED-CT () 2020-08-[address], [id number] Psychotherapy, 45 minutes with patient [id number] SNOMED-CT () 2020-09-[address], [id number] Psychotherapy, 45 minutes with patient [id number] SNOMED-CT () 2020-08-[address], [id number] Psychotherapy, 45 minutes with patient [id number] SNOMED-CT () 2018-03-[address], [id number] Psychotherapy, 45 minutes with patient [id number] SNOMED-CT () 2018-03-[address], [id number] Psychotherapy, 45 minutes with patient [id number] SNOMED-CT () 2018-04-[address], [id number] [id number] Psychotherapy, 45 minutes with patient [id number] SNOMED-CT () 2018-06-[address], [id number] Psychotherapy, 45 minutes with patient [id number] SNOMED-CT () 2018-06-[address], [id number] Psychotherapy, 45 minutes with patient [id number] SNOMED-CT () 2018-07-[address], [id number] Psychotherapy, 45 minutes with patient [id number] SNOMED-CT () 2017-10-[address], [id number] Psychotherapy, 45 minutes with patient [id number] SNOMED-CT () 2017-11-[address], [id number] Psychotherapy, 45 minutes with patient [id number] SNOMED-CT () 2017-12-[address], [id number] Psychotherapy, 45 minutes with patient [id number] SNOMED-CT () 2018-01-[address], [id number] Psychotherapy, 45 minutes with patient [id number] SNOMED-CT () 2018-01-[address], [id number] Psychotherapy, 45 minutes with patient [id number] SNOMED-CT () 2018-02-[address], [id number] Psychotherapy, 45 minutes with patient [id number] SNOMED-CT () 2015-12-[address], [id number] Psychotherapy, 45 minutes with patient [id number] SNOMED-CT () 2016-05-[address], [id number] Psychotherapy, 45 minutes with patient [id number] SNOMED-CT () 2017-01-[address], [id number] Psychotherapy, 45 minutes with patient [id number] SNOMED-CT () 2017-02-[address], [id number] [id number] Psychotherapy, 45 minutes with patient [id number] SNOMED-CT () 2017-03-[address], [id number] Psychotherapy, 45 minutes with patient [id number] SNOMED-CT () 2017-09-[address], [id number] Psychotherapy, 45 minutes with patient [id number] SNOMED-CT () 2015-08-[address], [id number] Psychotherapy, 45 minutes with patient [id number] SNOMED-CT () 2015-08-[address], [id number] Psychotherapy, 45 minutes with patient [id number] SNOMED-CT () 2015-10-[address], [id number] Psychotherapy, 45 minutes with patient [id number] SNOMED-CT () 2015-09-[address], [id number] Psychotherapy, 45 minutes with patient [id number] SNOMED-CT () 2015-10-[address], [id number] Psychotherapy, 45 minutes with patient [id number] SNOMED-CT () 2015-11-[address], [id number] Initial Psychiatric Evaluation [id number] SNOMED-CT () 2016-10-[address], [id number] Initial Psychiatric Evaluation [id number] SNOMED-CT () 2018-06-[address], [id number] [id number] Initial Psychiatric Evaluation [id number] SNOMED-CT () 2020-10-17 completed [facility] [address] [place], [place], [id number] [id number] Family psychotherapy (without the patien t present), 50 minutes [id number] SNOMED-CT () 2018-06-17 completed [facility] [address] [place], [place], [id number] Health Monitoring / Risk Reduction Counseling - Interm ediate [id number] SNOMED-CT () 2016-10-[address], [id number] Health Monitoring / Risk Reduction Counseling - Interm ediate [id number] SNOMED-CT () 2017-09-[address], [id number] Est. Patient - E&M Intermediate [id number] SNOMED-CT () 2017-02-[address], [id number] Est. Patient - E&M Intermediate [id number] SNOMED-CT () 2017-03-[address], [id number] [id number] Est. Patient - E&M Intermediate [id number] SNOMED-CT () 2018-10-[address], [id number] [id number] Est. Patient - E&M Intermediate [id number] SNOMED-CT () 2018-11-[address], [id number] Est. Patient - E&M Brief [id number] SNOMED-CT () 2017-01-[address], [id number] Est. Patient - E&M Brief [id number] SNOMED-CT () 2017-02-[address], [id number] Est. Patient - E&M Brief [id number] SNOMED-CT () 2018-09-[address], [id number] Est. Patient - E&M Expanded [id number] SNOMED-CT () 2016-11-[address], [id number] [id number] Est. Patient - E&M Expanded [id number] SNOMED-CT () 2016-12-[address], [id number] [phone] Est. Patient - E&M Expanded [id number] SNOMED-CT () 2016-12-[address], [id number] Est. Patient - E&M Expanded [id number] SNOMED-CT () 2016-12-[address], [id number] Est. Patient - E&M Expanded [id number] SNOMED-CT () 2017-01-[address], [id number] Est. Patient - E&M Expanded [id number] SNOMED-CT () 2017-01-[address], [id number] Est. Patient - E&M Expanded [id number] SNOMED-CT () 2017-01-[address], [id number] [id number] Est. Patient - E&M Expanded [id number] SNOMED-CT () 2017-02-[address], [id number] Est. Patient - E&M Expanded [id number] SNOMED-CT () 2020-11-[address], [id number] Individual Psychotherapy [id number] SNOMED-CT () 2015-05-[address], [id number] Individual Psychotherapy [id number] SNOMED-CT () 2015-07-[address], [id number] Individual Psychotherapy [id number] SNOMED-CT () 2015-10-[address], [id number] [id number] Individual Psychotherapy [id number] SNOMED-CT () 2015-11-[address], [id number] [id number] Individual Psychotherapy [id number] SNOMED-CT () 2015-12-[address], [id number] [phone] Individual Psychotherapy [id number] SNOMED-CT () 2016-10-[address], [id number] Individual Psychotherapy [id number] SNOMED-CT () 2020-10-[address], [id number] Individual Psychotherapy [id number] SNOMED-CT () 2016-11-[address], [id number] [phone] Individual Psychotherapy [id number] SNOMED-CT () 2016-12-[address], [id number] Individual Psychotherapy [id number] SNOMED-CT () 2016-12-[address], 593732044 [id number] Individual Psychotherapy [id number] SNOMED-CT () 2017-01-[address], [id number] [id number] Individual Psychotherapy [id number] SNOMED-CT () 2017-02-[address], [id number] Individual Psychotherapy [id number] SNOMED-CT () 2018-07-[address], [id number] [id number] Individual Psychotherapy [id number] SNOMED-CT () 2015-05-[address], [id number] [id number] Individual Psychotherapy [id number] SNOMED-CT () 2015-05-18 [address] [place], [address] [id number] Individual Psychotherapy [id number] SNOMED-CT () 2015-06-[address], 235753539 [id number] Individual Psychotherapy [id number] SNOMED-CT () 2015-06-[address], 783899477 [phone] Individual Psychotherapy [id number] SNOMED-CT () 2015-07-[address], 492872784 [id number] Individual Psychotherapy [id number] SNOMED-CT () 2015-07-[address], [id number] [id number] Individual Psychotherapy [id number] SNOMED-CT () 2020-09-[address], [id number] [id number] Individual Psychotherapy [id number] SNOMED-CT () 2020-10-[address], [id number] Individual Psychotherapy [id number] SNOMED-CT () 2020-11-[address], [id number] [id number] Individual Psychotherapy [id number] SNOMED-CT () 2020-11-[address], [id number] Individual Psychotherapy [id number] SNOMED-CT () 2018-08-[address], [id number] Individual Psychotherapy [id number] SNOMED-CT () 2018-10-[address], [id number] Individual Psychotherapy [id number] SNOMED-CT () 2018-11-[address], [id number] [id number] Individual Psychotherapy [id number] SNOMED-CT () 2020-08-[address], 006118596 [id number] Individual Psychotherapy [id number] SNOMED-CT () 2020-09-[address], [id number] Individual Psychotherapy [id number] SNOMED-CT () 2020-08-[address], [id number] [id number] Individual Psychotherapy [id number] SNOMED-CT () 2018-03-[address], [id number] [phone] Individual Psychotherapy [id number] SNOMED-CT () 2018-03-[address], [id number] Individual Psychotherapy [id number] SNOMED-CT () 2018-04-[address], [id number] Individual Psychotherapy [id number] SNOMED-CT () 2018-06-[address], [id number] [phone] Individual Psychotherapy [id number] SNOMED-CT () 2018-06-[address], 986893634 [id number] Individual Psychotherapy [id number] SNOMED-CT () 2018-07-[address], [id number] [id number] Individual Psychotherapy [id number] SNOMED-CT () 2017-10-[address], [id number] [id number] Individual Psychotherapy [id number] SNOMED-CT () 2017-11-[address], [id number] [phone] Individual Psychotherapy [id number] SNOMED-CT () 2017-12-[address], [id number] [id number] Individual Psychotherapy [id number] SNOMED-CT () 2018-01-[address], 258804826 [phone] Individual Psychotherapy [id number] SNOMED-CT () 2018-01-[address], 820897151 [id number] Individual Psychotherapy [id number] SNOMED-CT () 2018-02-[address], [id number] Individual Psychotherapy [id number] SNOMED-CT () 2015-12-[address], 820194742 [id number] Individual Psychotherapy [id number] SNOMED-CT () 2016-05-[address], 575321362 [id number] Individual Psychotherapy [id number] SNOMED-CT () 2017-01-[address], [id number] [id number] Individual Psychotherapy [id number] SNOMED-CT () 2017-02-[address], 540496958 [phone] Individual Psychotherapy [id number] SNOMED-CT () 2017-03-[address], [id number] [id number] Individual Psychotherapy [id number] SNOMED-CT () 2017-09-[address], 416449786 [id number] Individual Psychotherapy [id number] SNOMED-CT () 2015-08-[address], [id number] Individual Psychotherapy [id number] SNOMED-CT () 2015-08-[address], [id number] [id number] Individual Psychotherapy [id number] SNOMED-CT () 2015-10-[address], [id number] Individual Psychotherapy [id number] SNOMED-CT () 2015-09-[address], 285456816 [id number] Individual Psychotherapy [id number] SNOMED-CT () 2015-10-[address], [id number] [id number] Individual Psychotherapy [id number] SNOMED-CT () 2015-11-[address], 476343390 [phone] Psychiatric Diagnostic Evaluation without medical serv ices [id number] SNOMED-CT () 2015-04-[address], [id number] [id number] Psychiatric Diagnostic Evaluation without medical serv ices [id number] SNOMED-CT () 2016-10-[address], [id number] [id number] Psychiatric Diagnostic Evaluation without medical serv ices [id number] SNOMED-CT () 2016-11-[address], [id number] [id number] Psychiatric Diagnostic Evaluation without medical serv ices [id number] SNOMED-CT () 2017-07-[address], [id number] [id number] Psychiatric Diagnostic Evaluation without medical serv ices [id number] SNOMED-CT () 2017-08-[address], [id number] [phone] Psychiatric Diagnostic Evaluation without medical serv ices [id number] SNOMED-CT () 2020-08-[address], 856942856 [id number] SNOMED-CT () 2016-12-[address], [id number] SNOMED-CT () 2016-12-[address], [id number] [id number] SNOMED-CT () 2016-10-[address], [id number] SNOMED-CT () 2020-09-[address], [id number] SNOMED-CT () 2020-08-[address], [id number] SNOMED-CT () 2020-08-[address], [id number] SNOMED-CT () 2020-09-[address], 922361808 [id number] SNOMED-CT () 2020-08-[address], [id number] SNOMED-CT () 2017-05-[address], 967591771 [id number] SNOMED-CT () 2016-12-[address], 952140816 [id number] SNOMED-CT () 2017-02-[address], 088553583 [id number] SNOMED-CT () 2018-04-06 completed [facility] [address], [id number] [id number] Encounters/Encounter Diagnoses Encounter Name Encounter Code Diagnosis Code Diagnosis Name Diagnosis CodeSystem Date of Diagnosis Service Delivery L ocation Pyschotherapy 30 Minute with Patient [id number] Recurrent depressive disorder, current e pisode moderate SNOMED-CT 2020-11-23 [facility] [address] [place], [place], [id number] Vital Signs Code CodeSystem Vitals Date Value 8462-4 [facility] Blood Press ure-Diastolic 2018-10-13 104 mm[HG] 91128-5 [facility] Weight 2018-10-13 122 [lb_av] 8302-2 [facility] Height 2018-10-13 60 [in_i] 8480-6 [facility] Blood Press ure-Systolic 2018-10-13 59 mm[HG] 74019-8 LO[facility] BMI 2018-10-13 23.82 (lb/in2) 8867-4 INC Heart Rate 2018-10-13 66 /min Social History Element Description Description Start Date End Date Code CodeSystem AdditionalInfo SexAssignedAtBirth Female 1995 F AdministrativeGender Hospital Discharge Instructions * Reason For Referral Medical Equipment * FDA Assessments *
--- OUTSIDE RECORDS SUMMARY | 2021-02-12 22:11 | CCD ---
Author Author Mariia Carlson Organization [facility] Address Unknown Phone Unavailable Care Team Providers Care Fig Washer Name Role Phone Shyla Carlson PCP Unavailable Allergies, Adverse Reactions, Alerts Allergy Substance Code C odeSystem Reaction Severity Critic ality Status Start Date nkda Moderate Active Medications Medication Medication Code Medication CodeSystem Start Date Stop Date Route Dose Status Fill Instructions buspirone 282876 RxNorm 2016-10-30 2016-11-29 oral 10 mg 2 tablet three times a day completed Take 2 tablet by mouth three times a day for 30 day(s) Effexor XR 243084 RxNorm 2017-02-18 2017-02-27 oral 75 mg capsule,extended release 24hr completed for 7 day(s) gabapentin 613726 RxNorm 2016-12-11 2016-12-18 oral 300 mg 2 capsule twice a day completed Take 2 capsule by mouth twice a day for 7 day(s) Zyprexa 716370 RxNorm 2017-01-09 2017-01-16 oral 5 mg tablet completed for 7 day(s) venlafaxine 634728 RxNorm 2017-01-09 2017-01-16 oral 150 mg capsule,extended release 24hr completed for 7 day(s) buspirone 230509 RxNorm 2017-01-09 2017-01-16 oral 15 mg 1 tablet twice a day completed Take 1 tablet by mouth twice a day for 7 day(s) Zyprexa 997726 RxNorm 2017-02-12 2017-02-27 oral 5 mg tablet completed for 7 day(s) venlafaxine 497823 RxNorm 2017-02-27 2017-03-11 oral 150 mg capsule,extended release 24hr completed for 7 day(s) sertraline 768985 RxNorm 2018-07-27 oral 50 mg tablet active gabapentin 636009 RxNorm 2017-01-27 2017-02-10 oral 300 mg 2 capsule twice a day completed Take 2 capsule by mouth twice a day for 14 day(s) Lamictal 491423 [facility] 2017-01-27 2017-02-10 oral 200 mg 1 tablet once a day completed Take 1 tablet by mouth once a day for 14 day(s) venlafaxine 024188 [facility] 2017-03-11 2017-04-08 oral 150 mg capsule,extended release 24hr completed for 14 day(s) Zyprexa 778157 [facility] 2017-01-27 2017-02-10 oral 5 mg tablet completed for 14 day(s) gabapentin 144969 [facility] 2017-01-16 2017-01-23 oral 300 mg 2 capsule twice a day completed Take 2 capsule by mouth twice a day for 7 day(s) venlafaxine 562767 [facility] 2016-10-30 2016-11-29 oral 150 mg capsule,extended release 24hr completed for 30 day(s) Zoloft 228824 [facility] 2018-06-26 2018-07-26 oral 50 mg tablet completed for 30 day(s) Effexor XR 223723 [facility] 2017-03-11 2017-04-08 oral 75 mg capsule,extended release 24hr completed for 14 day(s) trazodone 358449 [facility] 2018-07-27 2018-08-26 oral 50 mg tablet active for 30 day(s) buspirone 157720 [facility] 2017-01-27 2017-02-10 oral 15 mg 1 tablet twice a day completed Take 1 tablet by mouth twice a day for 14 day(s) buspirone 929615 [facility] 2017-02-12 2017-03-11 oral 15 mg 1 tablet twice a day completed Take 1 tablet by mouth twice a day for 7 day(s) quetiapine 444089 [facility] 2016-10-30 2016-11-29 oral 200 mg tablet completed for 30 day(s) venlafaxine 522170 [facility] 2017-01-27 2017-02-10 oral 150 mg capsule,extended release 24hr completed for 14 day(s) gabapentin 408770 [facility] 2017-02-12 2017-02-27 oral 300 mg 2 capsule twice a day completed Take 2 capsule by mouth twice a day for 7 day(s) Zoloft 294659 [facility] 2018-06-09 2018-06-26 oral 25 mg tablet completed for 30 day(s) gabapentin 160349 [facility] 2016-10-30 2016-11-29 oral 300 mg 1 capsule three times a day c ompleted Take 1 capsule by mouth three times a da y for 30 day(s) Lamictal 070102 [facility] 2016-12-02 2017-01-09 oral 200 mg 1 tablet once a day completed Take 1 tablet by mouth once a day for 14 day(s) gabapentin 570391 [facility] 2017-01-09 2017-01-16 oral 300 mg 2 capsule twice a day completed Take 2 capsule by mouth twice a day for 7 day(s) venlafaxine 034637 [facility] 2017-01-16 2017-01-23 oral 150 mg capsule,extended release 24hr completed for 7 day(s) buspirone 411402 [facility] 2017-03-11 2017-04-08 oral 15 mg 1 tablet twice a day completed Take 1 tablet by mouth twice a day for 14 day(s) Lamictal 715417 [facility] 2017-02-12 2017-03-11 oral 200 mg 1 tablet once a day completed Take 1 tablet by mouth once a day for 7 day(s) Lamictal 415366 [facility] 2016-10-30 2016-11-29 oral 200 mg 1 tablet once a day completed Take 1 tablet by mouth once a day for 30 day(s) buspirone 069191 [facility] 2016-12-02 2017-01-01 oral 15 mg 1 tablet twice a day completed Take 1 tablet by mouth twice a day for 30 day(s) Lamictal 814076 [facility] 2017-01-16 2017-01-23 oral 200 mg 1 tablet once a day completed Take 1 tablet by mouth once a day for 7 day(s) trazodone 195719 [facility] 2018-06-09 2018-07-26 oral 50 mg tablet completed for 30 day(s) gabapentin 712964 [facility] 2017-02-27 2017-03-11 oral 300 mg capsule completed buspirone 947756 [facility] 2017-01-16 2017-01-23 oral 15 mg 1 tablet twice a day completed Take 1 tablet by mouth twice a day for 7 day(s) Zyprexa 608492 RxNorm 2017-01-16 2017-01-23 oral 5 mg tablet completed for 7 day(s) venlafaxine 047109 RxNorm 2017-02-18 2017-02-27 oral 150 mg capsule,extended release 24hr completed for 7 day(s) quetiapine 495678 RxNorm 2016-12-02 2017-01-01 oral 200 mg tablet completed for 30 day(s) Effexor XR 776334 RxNorm 2017-02-27 2017-03-11 oral 75 mg capsule,extended release 24hr completed for 7 day(s) Lamictal 079044 RxNo 2017-01-09 2017-01-16 oral 200 mg 1 tablet once a day completed Take 1 tablet by mouth once a day for 7 day(s) gabapentin 831139 RxNo 2016-12-02 2016-12-11 oral 300 mg capsule completed for 30 day(s) Zyprexa 670724 RxNo 2017-01-01 2017-01-09 oral 2.5 mg tablet completed for 30 day(s) venlafaxine 697501 RxNo 2017-02-12 2017-02-18 oral 150 mg capsule,extended release 24hr completed for 7 day(s) venlafaxine 369066 RxNo 2016-12-02 2017-01-01 oral 150 mg capsule,extended release 24hr completed for 30 day(s) Problems Problem Name Code CodeSy stem Alternate Code Alternate CodeSystem Start Date End Date Status Narrative Cannabis use disorder, Moderate [id number] SNOMED-CT 2016-11-13 Active 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 Anxiety (finding) 39419416 SNOMED-CT 2020-08-09 Active Tobacco use 278961970 S NOMED-CT 2020-08-09 Active Dysthymia 17746612 SNOM ED-CT 2015-04-26 Active Recurrent depressive disorder, current episode modera te 227594078 SNOMED-CT 2015-04-26 Active Recurrent depressive disorder, current episode modera te 270759185 SNOMED-CT 2015-04-26 Active Opioid dependence, uncomplicated 27534868 SNOMED-CT 2016-11-13 Active Unspecified anxiety disorder 337620612 SNOMED-CT 2020-08-09 Active 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 Cannabis use disorder, Moderate 177657980 SNOMED-CT 2016-11-13 Active Recurrent depressive disorder, current episode modera te 923862301 SNOMED-CT 2017-08-05 Active Opioid dependence, uncomplicated 36278992 SNOMED-CT 2016-11-13 Active Cannabis use disorder, Moderate 872139473 SNOMED-CT 2016-11-13 Active Opioid dependence, uncomplicated 61936144 SNOMED-CT 2016-11-13 Active Recurrent depressive disorder, current episode modera te 959202017 SNOMED-CT 2017-08-05 Active Dysthymia 23348605 SNOM ED-CT 2015-04-26 Active 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 Relevant diagnostic tests/laboratory data Narrative No Information Procedures Procedure Name Code Code System Target Site Date of Procedure Status Service Delivery Location Device Cod e Device Name Device UID Psychotherapy, 45 minutes with patient [id number] SNOMED-CT () 2015-05-[address], [id number] Psychotherapy, 45 minutes with patient [id number] SNOMED-CT () 2015-05-[address], [id number] Psychotherapy, 45 minutes with patient [id number] SNOMED-CT () 2015-06-[address], [id number] Psychotherapy, 45 minutes with patient [id number] SNOMED-CT () 2015-06-[address], [id number] Psychotherapy, 45 minutes with patient [id number] SNOMED-CT () 2015-07-[address], [id number] Psychotherapy, 45 minutes with patient [id number] SNOMED-CT () 2015-07-[address], [id number] Psychotherapy, 45 minutes with patient [id number] SNOMED-CT () 2020-09-19 completed [facility] [address] [place], [place], [id number] [phone] Psychotherapy, 45 minutes with patient [id number] SNOMED-CT () 2020-10-26 completed [facility] [address] [place], [place], [id number] [id number] Psychotherapy, 45 minutes with patient [id number] SNOMED-CT () 2020-11-[address], [id number] Psychotherapy, 45 minutes with patient [id number] SNOMED-CT () 2020-11-[address], [id number] Psychotherapy, 45 minutes with patient [id number] SNOMED-CT () 2020-12-[address], [id number] [id number] Psychotherapy, 45 minutes with patient [id number] SNOMED-CT () 2018-08-[address], [id number] Psychotherapy, 45 minutes with patient [id number] SNOMED-CT () 2018-10-[address], [id number] Psychotherapy, 45 minutes with patient [id number] SNOMED-CT () 2018-11-[address], 571100456 [id number] Psychotherapy, 45 minutes with patient [id number] SNOMED-CT () 2020-08-[address], [id number] [id number] Psychotherapy, 45 minutes with patient [id number] SNOMED-CT () 2020-09-05 completed [place] [address] [place], [place], [id number] Psychotherapy, 45 minutes with patient [id number] SNOMED-CT () 2020-08-[address], [id number] [id number] Psychotherapy, 45 minutes with patient [id number] SNOMED-CT () 2018-03-[address], [id number] [id number] Psychotherapy, 45 minutes with patient [id number] SNOMED-CT () 2018-03-[address], [id number] [id number] Psychotherapy, 45 minutes with patient [id number] SNOMED-CT () 2018-04-[address], [id number] [phone] Psychotherapy, 45 minutes with patient [id number] SNOMED-CT () 2018-06-[address], 668648795 [id number] Psychotherapy, 45 minutes with patient [id number] SNOMED-CT () 2018-06-[address], [id number] [id number] Psychotherapy, 45 minutes with patient [id number] SNOMED-CT () 2018-07-[address], [id number] Psychotherapy, 45 minutes with patient [id number] SNOMED-CT () 2017-10-[address], [id number] [id number] Psychotherapy, 45 minutes with patient [id number] SNOMED-CT () 2017-11-[address], [id number] [id number] Psychotherapy, 45 minutes with patient [id number] SNOMED-CT () 2017-12-[address], [id number] [id number] Psychotherapy, 45 minutes with patient [id number] SNOMED-CT () 2018-01-[address], 018566862 [id number] Psychotherapy, 45 minutes with patient [id number] SNOMED-CT () 2018-01-[address], [id number] [id number] Psychotherapy, 45 minutes with patient [id number] SNOMED-CT () 2018-02-[address], [id number] Psychotherapy, 45 minutes with patient [id number] SNOMED-CT () 2015-12-[address], [id number] [phone] Psychotherapy, 45 minutes with patient [id number] SNOMED-CT () 2016-05-[address], [id number] Psychotherapy, 45 minutes with patient [id number] SNOMED-CT () 2017-01-[address], [id number] [id number] Psychotherapy, 45 minutes with patient [id number] SNOMED-CT () 2017-02-[address], [id number] [phone] Psychotherapy, 45 minutes with patient [id number] SNOMED-CT () 2017-03-[address], [id number] Psychotherapy, 45 minutes with patient [id number] SNOMED-CT () 2017-09-[address], [id number] [phone] Psychotherapy, 45 minutes with patient [id number] SNOMED-CT () 2015-08-[address], 764049270 [id number] Psychotherapy, 45 minutes with patient [id number] SNOMED-CT () 2015-08-[address], [id number] [id number] Psychotherapy, 45 minutes with patient [id number] SNOMED-CT () 2015-10-[address], [id number] Psychotherapy, 45 minutes with patient [id number] SNOMED-CT () 2015-09-[address], [id number] Psychotherapy, 45 minutes with patient [id number] SNOMED-CT () 2015-10-[address], 854918434 [id number] Psychotherapy, 45 minutes with patient [id number] SNOMED-CT () 2015-11-[address], [id number] [id number] Initial Psychiatric Evaluation [id number] SNOMED-CT () 2016-10-[address], 725882508 [id number] Initial Psychiatric Evaluation [id number] SNOMED-CT () 2018-06-[address], 609113008 [id number] Initial Psychiatric Evaluation [id number] SNOMED-CT () 2020-10-[address], [id number] [id number] Family psychotherapy (without the patien t present), 50 minutes [id number] SNOMED-CT () 2018-06-[address], [id number] [id number] Health Monitoring / Risk Reduction Counseling - Interm ediate [id number] SNOMED-CT () 2016-10-[address], [id number] [id number] Health Monitoring / Risk Reduction Counseling - Interm ediate [id number] SNOMED-CT () 2017-09-[address], [id number] [id number] Est. Patient - E&M Intermediate [id number] SNOMED-CT () 2017-02-[address], [id number] Est. Patient - E&M Intermediate [id number] SNOMED-CT () 2017-03-[address], [id number] Est. Patient - E&M Intermediate [id number] SNOMED-CT () 2018-10-[address], [id number] [phone] Est. Patient - E&M Intermediate [id number] SNOMED-CT () 2018-11-[address], [id number] [id number] Est. Patient - E&M Brief [id number] SNOMED-CT () 2017-01-[address], [id number] Est. Patient - E&M Brief [id number] SNOMED-CT () 2017-02-[address], 676322711 [id number] Est. Patient - E&M Brief [id number] SNOMED-CT () 2018-09-[address], [id number] [id number] Est. Patient - E&M Expanded [id number] SNOMED-CT () 2016-11-[address], [id number] Est. Patient - E&M Expanded [id number] SNOMED-CT () 2016-12-[address], [id number] Est. Patient - E&M Expanded [id number] SNOMED-CT () 2016-12-[address], [id number] [id number] Est. Patient - E&M Expanded [id number] SNOMED-CT () 2016-12-[address], [id number] [id number] Est. Patient - E&M Expanded [id number] SNOMED-CT () 2017-01-[address], [id number] Est. Patient - E&M Expanded [id number] SNOMED-CT () 2017-01-[address], [id number] Est. Patient - E&M Expanded [id number] SNOMED-CT () 2017-01-[address], [id number] [id number] Est. Patient - E&M Expanded [id number] SNOMED-CT () 2017-02-[address], [id number] [id number] Est. Patient - E&M Expanded [id number] SNOMED-CT () 2020-11-[address], 552253709 [id number] Individual Psychotherapy [id number] SNOMED-CT () 2015-05-[address], [id number] Individual Psychotherapy [id number] SNOMED-CT () 2015-07-[address], [id number] [id number] Individual Psychotherapy [id number] SNOMED-CT () 2015-10-[address], [id number] [id number] Individual Psychotherapy [id number] SNOMED-CT () 2015-11-[address], 500992329 [id number] Individual Psychotherapy [id number] SNOMED-CT () 2015-12-[address], [id number] [id number] Individual Psychotherapy [id number] SNOMED-CT () 2016-10-[address], 367459277 [id number] Individual Psychotherapy [id number] SNOMED-CT () 2020-10-[address], 589536131 [phone] Individual Psychotherapy [id number] SNOMED-CT () 2016-11-[address], [id number] [phone] Individual Psychotherapy [id number] SNOMED-CT () 2016-12-[address], [id number] [id number] Individual Psychotherapy [id number] SNOMED-CT () 2016-12-[address], [id number] [id number] Individual Psychotherapy [id number] SNOMED-CT () 2017-01-[address], [id number] Individual Psychotherapy [id number] SNOMED-CT () 2017-02-[address], [id number] [phone] Individual Psychotherapy [id number] SNOMED-CT () 2018-07-[address], 352286195 [id number] Individual Psychotherapy [id number] SNOMED-CT () 2015-05-[address], [id number] [id number] Individual Psychotherapy [id number] SNOMED-CT () 2015-05-[address], [id number] Individual Psychotherapy [id number] SNOMED-CT () 2015-06-[address], 163943856 [id number] Individual Psychotherapy [id number] SNOMED-CT () 2015-06-[address], [id number] [phone] Individual Psychotherapy [id number] SNOMED-CT () 2015-07-[address], [id number] [id number] Individual Psychotherapy [id number] SNOMED-CT () 2015-07-[address], [id number] [phone] Individual Psychotherapy [id number] SNOMED-CT () 2020-09-[address], [id number] [phone] Individual Psychotherapy [id number] SNOMED-CT () 2020-10-[address], [id number] [id number] Individual Psychotherapy [id number] SNOMED-CT () 2020-11-[address], 565353142 [id number] Individual Psychotherapy [id number] SNOMED-CT () 2020-11-[address], [id number] [id number] Individual Psychotherapy [id number] SNOMED-CT () 2020-12-[address], 717711136 [id number] Individual Psychotherapy [id number] SNOMED-CT () 2018-08-[address], 042506539 [id number] Individual Psychotherapy [id number] SNOMED-CT () 2018-10-[address], 132277262 [phone] Individual Psychotherapy [id number] SNOMED-CT () 2018-11-[address], [id number] [phone] Individual Psychotherapy [id number] SNOMED-CT () 2020-08-[address], 359141709 [id number] Individual Psychotherapy [id number] SNOMED-CT () 2020-09-[address], 173973423 [id number] Individual Psychotherapy [id number] SNOMED-CT () 2020-08-[address], 944295790 [id number] Individual Psychotherapy [id number] SNOMED-CT () 2018-03-[address], 782302230 [id number] Individual Psychotherapy [id number] SNOMED-CT () 2018-03-[address], [id number] [id number] Individual Psychotherapy [id number] SNOMED-CT () 2018-04-[address], 623574511 [id number] Individual Psychotherapy [id number] SNOMED-CT () 2018-06-[address], 514603718 [id number] Individual Psychotherapy [id number] SNOMED-CT () 2018-06-[address], 410401729 [id number] Individual Psychotherapy [id number] SNOMED-CT () 2018-07-[address], 760388901 [id number] Individual Psychotherapy [id number] SNOMED-CT () 2017-10-[address], 475285034 [id number] Individual Psychotherapy [id number] SNOMED-CT () 2017-11-[address], 296877184 [phone] Individual Psychotherapy [id number] SNOMED-CT () 2017-12-[address], 812330247 [id number] Individual Psychotherapy [id number] SNOMED-CT () 2018-01-[address], 634657896 [id number] Individual Psychotherapy [id number] SNOMED-CT () 2018-01-[address], 818882875 [id number] Individual Psychotherapy [id number] SNOMED-CT () 2018-02-[address], 184017949 [id number] Individual Psychotherapy [id number] SNOMED-CT () 2015-12-[address], 619637994 [id number] Individual Psychotherapy [id number] SNOMED-CT () 2016-05-[address], 178195884 [id number] Individual Psychotherapy [id number] SNOMED-CT () 2017-01-[address], 136340828 [id number] Individual Psychotherapy [id number] SNOMED-CT () 2017-02-[address], 858871082 [id number] Individual Psychotherapy [id number] SNOMED-CT () 2017-03-[address], 460500308 [phone] Individual Psychotherapy [id number] SNOMED-CT () 2017-09-[address], [id number] [phone] Individual Psychotherapy [id number] SNOMED-CT () 2015-08-[address], 516457015 [id number] Individual Psychotherapy [id number] SNOMED-CT () 2015-08-[address], 948679721 [id number] Individual Psychotherapy [id number] SNOMED-CT () 2015-10-[address], 082218554 [id number] Individual Psychotherapy [id number] SNOMED-CT () 2015-09-[address], 983414830 [id number] Individual Psychotherapy [id number] SNOMED-CT () 2015-10-[address], 737715392 [id number] Individual Psychotherapy [id number] SNOMED-CT () 2015-11-[address], 741478744 [phone] Psychiatric Diagnostic Evaluation without medical serv ices [id number] SNOMED-CT () 2015-04-[address], 374052969 [phone] Psychiatric Diagnostic Evaluation without medical serv ices [id number] SNOMED-CT () 2016-10-[address], [id number] Psychiatric Diagnostic Evaluation without medical serv ices [id number] SNOMED-CT () 2016-11-[address], [place], [address] [phone] Psychiatric Diagnostic Evaluation without medical serv ices [id number] SNOMED-CT () 2017-07-[address], [id number] [id number] Psychiatric Diagnostic Evaluation without medical serv ices [id number] SNOMED-CT () 2017-08-[address], [id number] [id number] Psychiatric Diagnostic Evaluation without medical serv ices [id number] SNOMED-CT () 2020-08-[address], 829271467 [id number] SNOMED-CT () 2016-12-[address], 624052279 [id number] SNOMED-CT () 2016-12-[address], 270413551 [id number] SNOMED-CT () 2016-10-[address], 132063074 [id number] SNOMED-CT () 2020-09-[address], 184149224 [id number] SNOMED-CT () 2020-08-[address], 656696704 [id number] SNOMED-CT () 2020-08-[address], 342596392 [id number] SNOMED-CT () 2020-09-[address], 227901479 [id number] SNOMED-CT () 2020-08-[address], 848722295 [id number] SNOMED-CT () 2017-05-[address], 925577894 [id number] SNOMED-CT () 2016-12-12 completed [facility] [address], 396250957 [id number] SNOMED-CT () 2017-02-18 completed [facility] [address], 802249866 [id number] SNOMED-CT () 2018-04-06 completed [facility] [address], [id number] [id number] Encounters/Encounter Diagnoses Encounter Name Encounter Code Diagnosis Code Diagnosis Name Diagnosis CodeSystem Date of Diagnosis Service Delivery L ocation Pyschotherapy 30 Minute with Patient [address] [id number] Recurrent depressive disorder, current e pisode moderate SNOMED-CT 2020-12-07 [facility] [address] [place], [place], [id number] Vital Signs Code CodeSystem Vitals Date Value 34884-3 LOINC Weight 2018-10-13 122 [lb_av] 32909-5 LOINC BMI 2018-10-13 23.82 (lb/in2) 8867-4 [facility] Heart Rate 2018-10-13 66 /min 8462-4 [facility] Blood Press ure-Diastolic 2018-10-13 104 mm[HG] 8480-6 [facility] Blood Press ure-Systolic 2018-10-13 59 mm[HG] 8302-2 [facility] Height 2018-10-13 60 [in_i] Social History Element Description Description Start Date End Date Code CodeSystem AdditionalInfo SexAssignedAtBirth Female 1995 F [facility] Discharge Instructions * Reason For Referral Medical Equipment * FDA Assessments * Goals Section Goals Planned DateTime Explore and resolve issues related to adoption as a ch ild 2020-09-05
--- OUTSIDE RECORDS SUMMARY | 2021-02-12 22:16 | CCD ---
Author Author [facility] Organization [facility] Address Unknown Phone Unavailable Care Team Providers [facility]s Payable Clerk Name Role Phone Oksana Montes CENTRAL OFFICE WORKER Unavailable Unavailable Oksana Montesshua CENTRAL OFFICE WORKER Unavailable Unavailable Montes, M Jorge CENTRAL OFFICE WORKER Unavailable Unavailable Montes M Jorge CENTRAL OFFICE WORKER Unavailable Unavailable Montes M Jorge CENTRAL OFFICE WORKER Unavailable Unavailable Montes M Jorge CENTRAL OFFICE WORKER Unavailable Unavailable [place], L Pinky CENTRAL OFFICE WORKER Unavailable Unavailable [place], L Pinky CENTRAL OFFICE WORKER Unavailable Unavailable [place], L Pinky CENTRAL OFFICE WORKER Unavailable Unavailable [place], L Pinky CENTRAL OFFICE WORKER Unavailable Unavailable [place], L Pinky CENTRAL OFFICE WORKER Unavailable Unavailable [place], L Pinky CENTRAL OFFICE WORKER Unavailable Unavailable [place], L Pinky CENTRAL OFFICE WORKER Unavailable Unavailable [place], L Pinky CENTRAL OFFICE WORKER Unavailable Unavailable [place], L Pinky CENTRAL OFFICE WORKER Unavailable Unavailable [place], L Pinky CENTRAL OFFICE WORKER Unavailable Unavailable [place], L Pinky CENTRAL OFFICE WORKER Unavailable Unavailable [place], L Pinky CENTRAL OFFICE WORKER Unavailable Unavailable [place], L Pinky CENTRAL OFFICE WORKER Unavailable Unavailable Karina Conrad Unavailable [phone] Scordo, M Deb PA Unavailable Unavailable Scordo, [...] Unavailable Scordo, M Deb PA Unavailable Unavailable Daren, H Florina CENTRAL OFFICE WORKER Unavailable Unavailable Daren, H Florina CENTRAL OFFICE WORKER Unavailable Unavailable Daren, H Florina CENTRAL OFFICE WORKER Unavailable Unavailable Daren, H Florina CENTRAL OFFICE WORKER Unavailable Unavailable Daren, H Florina CENTRAL OFFICE WORKER Unavailable Unavailable Daren, H Florina CENTRAL OFFICE WORKER Unavailable Unavailable Daren, H Florina CENTRAL OFFICE WORKER Unavailable Unavailable Daren, H Florina CENTRAL OFFICE WORKER Unavailable Unavailable Daren, H Florina CENTRAL OFFICE WORKER Unavailable Unavailable Daren, H Florina CENTRAL OFFICE WORKER Unavailable Unavailable Daren, H Florina CENTRAL OFFICE WORKER Unavailable Unavailable Daren, H Florina CENTRAL OFFICE WORKER Unavailable Unavailable Daren, H Florina CENTRAL OFFICE WORKER Unavailable Unavailable Daren, H Florina CENTRAL OFFICE WORKER Unavailable Unavailable Daren, H Florina CENTRAL OFFICE WORKER Unavailable Unavailable Daren, H Florina CENTRAL OFFICE WORKER Unavailable Unavailable Daren, H Florina CENTRAL OFFICE WORKER Unavailable Unavailable Daren, H Florina CENTRAL OFFICE WORKER Unavailable Unavailable Daren, H Florina CENTRAL OFFICE WORKER Unavailable Unavailable Daren, H Florina CENTRAL OFFICE WORKER Unavailable Unavailable Daren, H Florina CENTRAL OFFICE WORKER Unavailable Unavailable Daren, H Florina CENTRAL OFFICE WORKER Unavailable Unavailable Daren, H Florina CENTRAL OFFICE WORKER Unavailable Unavailable Daren, H Florina CENTRAL OFFICE WORKER Unavailable Unavailable Daren, H Florina CENTRAL OFFICE WORKER Unavailable Unavailable Daren, H Florina CENTRAL OFFICE WORKER Unavailable Unavailable Daren, H Florina CENTRAL OFFICE WORKER Unavailable Unavailable Daren, H Florina CENTRAL OFFICE WORKER Unavailable Unavailable Daren, H Florina CENTRAL OFFICE WORKER Unavailable Unavailable Daren, H Florina CENTRAL OFFICE WORKER Unavailable Unavailable Daren, H Florina CENTRAL OFFICE WORKER Unavailable Unavailable Daren, H Florina CENTRAL OFFICE WORKER Unavailable Unavailable Daren, H Florina CENTRAL OFFICE WORKER Unavailable Unavailable Daren, H Florina CENTRAL OFFICE WORKER Unavailable Unavailable Daren, H Florina CENTRAL OFFICE WORKER Unavailable Unavailable Daren, H Florina CENTRAL OFFICE WORKER Unavailable Unavailable Daren, H Florina CENTRAL OFFICE WORKER Unavailable Unavailable Daren, H Florina CENTRAL OFFICE WORKER Unavailable Unavailable Daren, H Florina CENTRAL OFFICE WORKER Unavailable Unavailable Daren, H Florina CENTRAL OFFICE WORKER Unavailable Unavailable Daren, H Florina CENTRAL OFFICE WORKER Unavailable Unavailable Daren, H Florina CENTRAL OFFICE WORKER Unavailable Unavailable Daren, H Florina CENTRAL OFFICE WORKER Unavailable Unavailable Daren, H Florina CENTRAL OFFICE WORKER Unavailable Unavailable Daren, H Florina CENTRAL OFFICE WORKER Unavailable Unavailable Daren, H Florina CENTRAL OFFICE WORKER Unavailable Unavailable Daren, H Florina CENTRAL OFFICE WORKER Unavailable Unavailable Daren, H Florina CENTRAL OFFICE WORKER Unavailable Unavailable Daren, H Florina CENTRAL OFFICE WORKER Unavailable Unavailable Daren, H Florina CENTRAL OFFICE WORKER Unavailable Unavailable Daren, H Florina CENTRAL OFFICE WORKER Unavailable Unavailable Daren, H Florina CENTRAL OFFICE WORKER Unavailable Unavailable Daren, H Florina CENTRAL OFFICE WORKER Unavailable Unavailable Daren, H Florina CENTRAL OFFICE WORKER Unavailable Unavailable Daren, H Florina CENTRAL OFFICE WORKER Unavailable Unavailable Daren, H Florina CENTRAL OFFICE WORKER Unavailable Unavailable Daren, H Florina CENTRAL OFFICE WORKER Unavailable Unavailable Daren, H Florina CENTRAL OFFICE WORKER Unavailable Unavailable Daren, H Florina CENTRAL OFFICE WORKER Unavailable Unavailable SANTAMARIA, L MARY JO SWAN Unavailable Unavailable SANTAMARIA, L MARY JO SWAN Unavailable Unavailable SANTAMARIA, L MARY JO SWAN Unavailable Unavailable SANTAMARIA, L MARY JO SWAN Unavailable Unavailable SANTAMARIA, L MARY JO SWAN Unavailable Unavailable SANTAMARIA, L MARY JO SWAN Unavailable Unavailable SANTAMARIA, L MARY JO SWAN Unavailable Unavailable SANTAMARIA, L MARY JO SWAN Unavailable Unavailable SANTAMARIA, L MARY JO SWAN Unavailable Unavailable SANTAMARIA, L MARY JO SWAN Unavailable Unavailable SANTAMARIA, L MARY JO SWAN Unavailable Unavailable SANTAMARIA, L MARY JO SWAN Unavailable Unavailable SANTAMARIA, L MARY JO SWAN Unavailable Unavailable SANTAMARIA, L MARY JO SWAN Unavailable Unavailable SANTAMARIA, L MARY JO SWAN Unavailable Unavailable SANTAMARIA, L MARY JO SWAN Unavailable Unavailable SANTAMARIA, L MARY JO SWAN Unavailable Unavailable SANTAMARIA, L MARY JO SWAN Unavailable Unavailable SANTAMARIA, L MARY JO SWAN Unavailable Unavailable SANTAMARIA, L MARY JO SWAN Unavailable Unavailable SANTAMARIA, L MARY JO SWAN Unavailable Unavailable SANTAMARIA, L MARY JO SWAN Unavailable Unavailable SANTAMARIA, L MARY JO SWAN Unavailable Unavailable SANTAMARIA, L MARY JO SWAN Unavailable Unavailable SANTAMARIA, L MARY JO SWAN Unavailable Unavailable SANTAMARIA, L MARY JO SWAN Unavailable Unavailable SANTAMARIA, L MARY JO SWAN Unavailable Unavailable SANTAMARIA, L MARY JO SWAN Unavailable Unavailable [place], L MARY JO SWAN Unavailable Unavailable SANTAMARIA, L MARY JO SWAN Unavailable Unavailable SANTAMARIA, L MARY JO SWAN Unavailable Unavailable SANTAMARIA, L MARY JO SWAN Unavailable Unavailable SANTAMARIA, L MARY JO SWAN Unavailable Unavailable SANTAMARIA, L MARY JO SWAN Unavailable Unavailable SANTAMARIA, L MARY JO SWAN Unavailable Unavailable SANTAMARIA, L MARY JO SWAN Unavailable Unavailable SANTAMARIA, L MARY JO SWAN Unavailable Unavailable SANTAMARIA, L MARY JO SWAN Unavailable Unavailable SANTAMARIA, L MARY JO SWAN Unavailable Unavailable SANTAMARIA, L MARY JO SWAN Unavailable Unavailable SANTAMARIA, L MARY JO SWAN Unavailable Unavailable SANTAMARIA, L MARY JO SWAN Unavailable Unavailable SANTAMARIA, L MARY JO SWAN Unavailable Unavailable SANTAMARIA, L MARY JO SWAN Unavailable Unavailable SANTAMARIA, L MARY JO SWAN Unavailable Unavailable Birchenough, R Shonda DO Unavailable Unavailable Birchenough, R Shonda DO Unavailable Unavailable Birchenough, R Shonda DO Unavailable Unavailable Birchenough, R Shonda DO Unavailable Unavailable Birchenough, R Shonda DO Unavailable Unavailable Birchenough, R Shonda DO Unavailable Unavailable Birchenough, R Shonda DO Unavailable Unavailable Birchenough, R Shonda DO Unavailable Unavailable Birchenough, R Shonda DO Unavailable Unavailable Birchenough, R Shonda DO Unavailable Unavailable Birchenough, R Shonda DO Unavailable Unavailable Birchenough, R Shonda DO Unavailable Unavailable Birchenough, R Shonda DO Unavailable Unavailable Birchenough, R Shonda DO Unavailable Unavailable Birchenough, R Shonda DO Unavailable Unavailable Birchenough, R Shonda DO Unavailable Unavailable Birchenough, R Shonda DO Unavailable Unavailable Birchenough, R Shonda DO Unavailable Unavailable Birchenough, R Shonda DO Unavailable Unavailable Robert Khan MD Unavailable Unavailable Robert Khan MD Unavailable Unavailable Robert Khan MD Unavailable Unavailable Robert Khan MD Unavailable Unavailable Robert Khan MD Unavailable Unavailable Robert Khan MD Unavailable Unavailable Robert Khan MD Unavailable Unavailable Robert Khan MD Unavailable Unavailable AZAM, CARINE SWAN Unavailable Unavailable AZAM, CARINE SWAN Unavailable Unavailable AZAM, CARINE SWAN Unavailable Unavailable AZAM, CARINE SWAN Unavailable Unavailable AZAM, CARINE SWAN Unavailable Unavailable AZAMCARINE MD Unavailable Unavailable AZAM, CARINE SWAN Unavailable Unavailable AZAMCARINE MD Unavailable Unavailable CARINE NASCIMENTO MD Unavailable Unavailable CARINE NASCIMENTO MD Unavailable Unavailable AZAMCARINE MD Unavailable Unavailable AZAMCARINE MD Unavailable Unavailable AZAMCARINE MD Unavailable Unavailable AZAM, CARINE SWAN Unavailable Unavailable AZAMCARINE MD Unavailable Unavailable AZAMCARINE MD Unavailable Unavailable AZAMCARINE MD Unavailable Unavailable AZAMCARINE MD Unavailable Unavailable CARINE NASCIMENTO MD Unavailable Unavailable CARINE NASCIMENTO MD Unavailable Unavailable CARINE NASCIMENTO MD Unavailable Unavailable AZAMCARINE MD Unavailable Unavailable AZAMCARINE MD Unavailable Unavailable CARINE NASCIMENTO MD Unavailable Unavailable AZAMCARINE MD Unavailable Unavailable AZAMCARINE MD Unavailable Unavailable CARINE NASCIMENTO MD Unavailable Unavailable CARINE NASCIMENTO MD Unavailable Unavailable AZAMCARINE MD Unavailable Unavailable CARINE NASCIMENTO MD Unavailable Unavailable CARINE NASCIMENTO MD Unavailable Unavailable CARINE NASCIMENTO MD Unavailable Unavailable AZAMCARINE MD Unavailable Unavailable AZAMCARINE MD Unavailable Unavailable CARINE NASCIMENTO MD Unavailable Unavailable CARINE NASCIMENTO MD Unavailable Unavailable AZAMCARINE MD Unavailable Unavailable AZAMCARINE MD Unavailable Unavailable CARINE NASCIMENTO MD Unavailable Unavailable AZAMCARINE MD Unavailable Unavailable AZAMCARINE MD Unavailable Unavailable CARINE NASCIMENTO MD Unavailable Unavailable CARINE NASCIMENTO MD Unavailable Unavailable AZAM, CARINE SWAN Unavailable Unavailable AZAM, CARINE SWAN Unavailable Unavailable AZAMCARINE MD Unavailable Unavailable AZAM, CARINE SWAN Unavailable Unavailable AZAM, CARINE SWAN Unavailable Unavailable AZAMCARINE MD Unavailable Unavailable AZAMCARINE MD Unavailable Unavailable AZAM, CARINE SWAN Unavailable Unavailable AZAM, CARINE SWAN Unavailable Unavailable AZAM, CARINE SWAN Unavailable Unavailable AZAM, CARINE SWAN Unavailable Unavailable AZAM, CARINE SWAN Unavailable Unavailable AZAM, CARINE SWAN Unavailable Unavailable AZAM, CARINE SWAN Unavailable Unavailable AZAM, CARINE SWAN Unavailable Unavailable AZAM, CARINE SWAN Unavailable Unavailable AZAM, CARINE SWAN Unavailable Unavailable AZAM, CARINE SWAN Unavailable Unavailable AZAM, CARINE SWAN Unavailable Unavailable AZAM, CARINE SWAN Unavailable Unavailable Ricca, Karla DO Unavailable Unavailable of L.C., Medicine Occupation Unavailable Unavailable Scordo, M Deb PA Unavailable [...] Unavailable Scordo, M Deb PA Unavailable Unavailable Re-disclosure Warning The records that [...] Article 27-F of the [facility] Public Health law. If you continue you may have access to information: Regarding HIV / AIDS; Provided by facilities licensed or operated by the [facility] Office of Mental Health; or Provided by the [facility] Office for People With Developmental Disabilities. If such information is present, then the following [facility] mandated warning applies: This information has [...] law may result in a fine or penitentiary sentence or both. A general authorization for the release of medical or other information is NOT sufficient authorization for further disc losure. Allergies and Adverse Reactions Type Description Substance Reaction Status Data Source(s ) Drug allergy No Known Drug Allergies No Known Drug Allergies [facility] Food allergy No Known Food Allergies No Known Food Allergies [facility] Allergy to substance Allergy to substance Allergy to substance [facility] ([facility]) Allergy to substance Allergy to substance Allergy to substance [facility] ([facility]) Allergy to substance Allergy to substance Allergy to substance [facility] ([facility]) Family History Family Member Name Family Member Gender Family Member Status Date o f Status Description Data Source(s) Unknown Condition [facility] Unknown Condition [facility] Unknown Condition [facility] Unknown Condition [facility] Unknown Condition [facility] Unknown Condition [facility] Unknown Condition [facility] Unknown Male Problem [facility] ([facility]) Unknown Unknown Problem [facility] Encounters Encounter Providers Location Date Indications Data Source(s ) Outpatient Attender: Florina Mercedes NPReferrer: Florina Mercedes NP 02/08/2021 09:42:[address] 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 [facility] M25.50,E03.9,D64.9 Outpatient Attender: Florina Josueeferrer: Florina Mercedes NP 01/03/2021 02:42:00 PM EDT - 01/03/2021 04:13:00 PM EDT [facility] Outpatient Attender: Pinky Villareal NPReferrer: Florina Mercedes NP 12/29/2020 07:58:00 AM EDT 12/29/2020 08:23:00 AM EDT [facility] Pyschotherapy [facility] Minute [facility] 12/07/2020 12:00:00 AM EDT [facility] ([facility]) Pyschotherapy 30 Minute with [facility] 11/23/2020 12:00:00 AM EDT [facility] ([facility]) Outpatient Attender: CARINE RAMIREZeferrer: Florina Mercedes NP 11/20/2020 04:31:[address] 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 Pyschotherapy 30 Minute with [facility] 10/26/2020 12:00:00 AM EDT [facility] ([facility]) Diagnostic Evaluation with medical services [facility] 10/17/2020 12:00:00 AM EDT [facility] ([facility] Pyschotherapy 30 Minute with [facility] 10/12/2020 12:00:00 AM EDT [facility] ([facility]) Outpatient Attender: Karla Luis DO 09/29 08:00:00 AM EDT - 11/06/2020 10:16:00 AM [facility] cancelled. Disregard status an d discharged date. Outpatient Attender: Florina Rowaner: Florina Mercedes NP 09/19/2020 03:53:00 PM EDT - 09/19/2020 04:58:00 PM EDT [facility] Pyschotherapy 30 Minute with [facility] 09/19/2020 12:00:00 AM EDT [facility] ([facility]) Pyschotherapy 30 Minute with [facility] 09/19/2020 12:00:00 AM EDT [facility] ([facility]) Outpatient Attender: Shonda Cabrera DO 09/13/2020 12:14 :00 PM EDT [facility] Outpatient Attender: Karla Luis DO 09/01/2020 02:14:00 PM EDT Z11.59,Z11.3 [facility] Z11.59,Z11.3 Outpatient Attender: Karla Hair: Florina Mercedes NP 09/01/2020 12:40:00 PM EDT - 09/01/2020 02:10:00 PM EDT [facility] Pyschotherapy 30 Minute with [facility] 08/29/2020 12:00:00 AM EDT [facility] ([facility]) Outpatient Attender: Kartik 08/25/2020 02:50:0 0 PM EDT COLLECTION [facility] COLLECTION Karina Conrad, VARN[employer] MIXER-R: [address] [place] [address], Ph. Attender: Karina Houston [facility] Medical 08/23/2020 12:00:00 AM EDT [facility] ([facility]) Outpatient Attender: Florina Thakkarerrer: Florina Mercedes NP 08/14/2020 07:43:00 AM EDT - 09/06/2020 11:37:00 AM EDT SCOLIOSIS [facility] SCOLIOSIS Patient discharged. non-billable [facility] 08/10/2020 12:00:00 AM EDT [facility] ([facility]) Karina Conrad, [employer]ER-R: [address] [place] [address], Ph. Attender: Karina Houston [facility] Medical 08/09/2020 12:00:00 AM EDT [facility] ([facility]) Karina Granadozeb, [employer]-R: [address] [place] [address], Ph. Attender: Karina Houston [facility] Medical 08/09/2020 12:00:00 AM EDT [facility] ([facility]) Outpatient Attender: Florina Mercedes NP 08/02/2020 09:12:00 AM E DT Z02.89 [facility] Z02.89 Outpatient Attender: Florina Josueeferrer: Florina Mercedes NP 07/31/2020 07:56:00 AM EDT - 07/31/2020 09:01:00 AM EDT [facility] Karina Conrad, [employer]-R: [address] [place] [address], Ph. Attender: Karina Conrad [facility] Medical 07/26/2020 12:00:00 AM EDT [facility] ([facility]) Karina Conrad, [employer]ARN[employer] MIXER-R: [address] [place] [address], Ph. Attender: Karina Conrad [facility] Medical 07/26/2020 12:00:00 AM EDT [facility] ([facility]) Karina Conrad, [employer] M[employer]ER-R: [address] [place] [address], Ph. Attender: Karina Conrad [facility] Medical 07/26/2020 12:00:00 AM EDT [facility] ([facility]) Marley Khan MD: [address], [place] [address], Ph. Attender: Marley Khan MD [facility] Medical 07/20/2020 12:00:00 AM EDT [facility]) Marley Khan MD: [address], [place] [address], Ph. Attender: Marley Khan MD [facility] Medical 07/20/2020 12:00:00 AM EDT [facility] ([facility]) Marley Khan MD: [address], [place] [address], Ph. Attender: Marley Khan MD [facility] Medical 07/20/2020 12:00:00 AM EDT [facility] ([facility]) Marley Khan MD: [address] [place] [address], Ph. Attender: Marley Khan MD [facility] Medical 07/20/2020 12:00:00 AM EDT [facility]) Karina Houston, [employer]ARN[employer] MIXER-R: [address] [place] [address], Ph. Attender: Karina Houston [facility] Medical 07/12/2020 12:00:00 AM EDT [facility] ([facility]) Karina Houston, [employer] M[employer]ER-R: [address] [place] [address], Ph. Attender: Karina Houston [facility] Medical 07/12/2020 12:00:00 AM EDT [facility]) Karina Houston, [employer] M[employer]ER-R: [address] [place] [address], Ph. Attender: Karina Houston [facility] Medical 07/12/2020 12:00:00 AM EDT [facility]) Karina Houston, [employer] M[employer]ER-R: [address] [place] [address], Ph. Attender: Karina Houston [facility] Medical 07/12/2020 12:00:00 AM EDT [facility]) Karina Houston, [employer] M[employer]ER-R: [address] [place] [address], Ph. Attender: Karina Conrad [facility] Medical 07/12/2020 12:00:00 AM EDT [facility] ([facility]) Karina Conrad, VARNISH MIXER-R: [address], [place] [address], Ph. Attender: Karina Conrad [facility] Medical 07/04/2020 12:00:00 AM EDT [facility] ([facility]) Karina Conrad, VARNISH MIXER-R: [address], [place] [address], Ph. Attender: Karina Conrad [facility] Medical 07/04/2020 12:00:00 AM EDT [facility] ([facility]) Karina Conrad, VARN[employer] MIXER-R: [address], [place] [address], Ph. Attender: Karina Conrad [facility] Medical 07/04/2020 12:00:00 AM EDT [facility] ([facility]) Karina Conrad, VARN[employer] MIXER-R: [address], [place] [address], Ph. Attender: Karina Conrad [facility] Medical 07/04/2020 12:00:00 AM EDT [facility] ([facility]) Karina Conrad, VARNISH MIXER-R: [address], [place] [address], Ph. Attender: Karina Conrad [facility] Medical 07/04/2020 12:00:00 AM EDT [facility] ([facility]) Karina Conrad, VARNISH MIXER-R: [address], [place] [address], Ph. Attender: Karina Conrad [facility] Medical 07/04/2020 12:00:00 AM EDT [facility] ([facility]) Karina Conrad, [employer]ARN[employer] MIXER-R: [address], [place] [address], Ph. Attender: Karina Conrad [facility] Medical 06/26/2020 12:00:00 AM EDT [facility] ([facility]) Karina Conrad, VARN[employer] MIXER-R: [address], [place] [address], Ph. Attender: Karina Conrad [facility] Medical 06/26/2020 12:00:00 AM EDT [facility] ([facility]) Karina Conrad, VARN[employer] MIXER-R: [address], [place] [address], Ph. Attender: Karina Conrad [facility] Medical 06/26/2020 12:00:00 AM EDT [facility] ([facility]) Karina Conrad, [employer]ARN[employer] MIXER-R: [address], [place] [address], Ph. Attender: Karina Conrad [facility] Medical 06/26/2020 12:00:00 AM EDT [facility] ([facility]) Karina Conrad, VARN[employer] MIXER-R: [address], [place] [address], Ph. Attender: Karina Conrad [facility] Medical 06/26/2020 12:00:00 AM EDT [facility] ([facility]) Karina Conrad, [employer]ARN[employer] MIXER-R: [address], [place] [address], Ph. Attender: Karina Conrad [facility] Medical 06/26/2020 12:00:00 AM EDT [facility] ([facility]) Karina Conrad, [employer]ARN[employer] MIXER-R: [address], [place] [address], Ph. Attender: Karina Conrad [facility] Medical 06/26/2020 12:00:00 AM EDT [facility] ([facility]) Karina Conrad, VARN[employer] MIXER-R: [address], [place] [address], Ph. Attender: Karina Conrad [facility] Medical 06/12/2020 12:00:00 AM EST [facility] ([facility]) Karina Conrad, VARN[employer] MIXER-R: [address], [place] [address], Ph. Attender: Karina Conrad [facility] Medical 06/12/2020 12:00:00 AM EST [facility] System) Karina Conrad, VARNISH MIXER-R: [address], [place] [address], Ph. Attender: Karina Conrad [facility] Medical 06/12/2020 12:00:00 AM EST NAVEEN ([facility]) Karina Conrad, VARNISH MIXER-R: [address], [place] [address], Ph. Attender: Karina Conrad [facility] Medical 06/12/2020 12:00:00 AM EST NAVEEN ([facility]) Karina Conrad, VARNISH MIXER-R: [address], [address], [place] [address], Ph. Attender: Karina Conrad [facility] Medical 06/12/2020 12:00:00 AM EST NAVEEN ([facility]) Karina Conrad, VARNISH MIXER-R: [address], [address], [place] [address], Ph. Attender: Karina Conrad [facility] Medical 06/12/2020 12:00:00 AM EST NAVEEN ([facility]) Karina Conrad, VARNISH MIXER-R: [address], [address], [place] [address], Ph. 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 Attender: Karina Conrad [facility] Medical 06/05/2020 12:00:00 AM EST NAVEEN ([facility]) Karina Conrad, VARNISH MIXER-R: [address], [address], [place] [address], Ph. Attender: Karina Conrad [facility] Medical 06/05/2020 12:00:00 AM EST NAVEEN ([facility]) Karina Conrad, VARNISH MIXER-R: [address], [address], [place] [address], Ph. Attender: Karina Conrad [facility] Medical 06/05/2020 12:00:00 AM EST NAVEEN ([facility]) Karina Conrad, VARNISH MIXER-R: [address], [address], [place] [address], Ph. Attender: Karina Conrad [facility] Medical 06/05/2020 12:00:00 AM EST NAVEEN ([facility]) Karina Conrad, VARNISH MIXER-R: [address], [address], [place] [address], Ph. Attender: Karina Conrad [facility] Medical 06/05/2020 12:00:00 AM EST NAVEEN ([facility]) Karina Conrad, VARNISH MIXER-R: [address], [address], [place] [address], Ph. Attender: Karina Conrad [facility] Medical 06/05/2020 12:00:00 AM EST NAVEEN ([facility]) Karina Conrad, VARNISH MIXER-R: [address], [address], [place] [address], Ph. Attender: Karina Conrad [facility] Medical 06/05/2020 12:00:00 AM EST NAVEEN ([facility]) Karina Conrad, VARNISH MIXER-R: [address], [address], [place] [address], Ph. Attender: Karina Conrad [facility] Medical 06/05/2020 12:00:00 AM EST NAVEEN ([facility]) Karina Conrad, VARNISH MIXER-R: [address], [address], [place] [address], Ph. Attender: Karina Conrad [facility] Medical 06/05/2020 12:00:00 AM EST NAVEEN ([facility]) Karina Conrad, VARNISH MIXER-R: [address], [address], [place] [address], Ph. Attender: Karina Conrad [facility] Medical 06/05/2020 12:00:00 AM EST NAVEEN ([facility]) Karina Conrad, VARNISH MIXER-R: [address], [address], [place] [address], Ph. Attender: Karina Conrad [facility] Medical 05/29/2020 12:00:00 AM EST NAVEEN ([facility]) Karina Conrad, VARNISH MIXER-R: [address], [address], [place] [address], Ph. Attender: Karina Conrad [facility] Medical 05/29/2020 12:00:00 AM EST NAVEEN ([facility]) Karina Conrad, VARNISH MIXER-R: [address], [address], [place] [address], Ph. Attender: Karina Conrad [facility] Medical 05/29/2020 12:00:00 AM EST NAVEEN ([facility]) Karina Conrad, VARNISH MIXER-R: [address], [address], [place] [address], Ph. Attender: Karina Conrad [facility] Medical 05/29/2020 12:00:00 AM EST NAVEEN ([facility]) Karina Conrad, VARNISH MIXER-R: [address], [address], [place] [address], Ph. Attender: Karina Conrad [facility] Medical 05/29/2020 12:00:00 AM EST NAVEEN ([facility]) Karina Conrad, VARNISH MIXER-R: [address], [address], [place] [address], Ph. Attender: Karina Conrad [facility] Medical 05/29/2020 12:00:00 AM EST NAVEEN ([facility]) Karina Conrad, VARNISH MIXER-R: [address], [address], [place] [address], Ph. Attender: Karina Conrad [facility] Medical 05/29/2020 12:00:00 AM EST NAVEEN ([facility]) Karina Conrad, VARNISH MIXER-R: [address], [address], [place] [address], Ph. Attender: Karina Conrad [facility] Medical 05/29/2020 12:00:00 AM EST NAVEEN ([facility]) Karina Conrad, VARNISH MIXER-R: [address], [address], [place] [address], Ph. Attender: Karina Conrad [facility] Medical 05/29/2020 12:00:00 AM EST NAVEEN ([facility]) Karina Conrad, VARNISH MIXER-R: [address], [address], [place] [address], Ph. Attender: Karina Conrad [facility] Medical 05/29/2020 12:00:00 AM EST NAVEEN ([facility]) Karina Conrad, VARNISH MIXER-R: [address], [address], [place] [address], Ph. Attender: Karina Conrad [facility] Medical 05/29/2020 12:00:00 AM EST NAVEEN ([facility]) Karina Conrad, VARNISH MIXER-R: [address], [address], [place] [address], Ph. Attender: Karina Conrad [facility] Medical 05/29/2020 12:00:00 AM EST NAVEEN ([facility]) Karina Conrad, VARNISH MIXER-R: [address], [address], [place] [address], Ph. Attender: Karina Conrad [facility] Medical 05/29/2020 12:00:00 AM EST NAVEEN ([facility]) Karina Conrad, VARNISH MIXER-R: [address], [address], [place] [address], Ph. Attender: Karina Conrad [facility] Medical 05/29/2020 12:00:00 AM EST NAVEEN ([facility]) Karina Conrad, VARNISH MIXER-R: [address], [address], [place] [address], Ph. Attender: Karina Conrad [facility] Medical 05/22/2020 12:00:00 AM EST NAVEEN ([facility]) Karina Conrad, VARNISH MIXER-R: [address], [address], [place] [address], Ph. Attender: Karina Conrad [facility] Medical 05/22/2020 12:00:00 AM EST NAVEEN ([facility]) Karina Conrad, VARNISH MIXER-R: [address], [address], [place] [address], Ph. Attender: Karina Conrad [facility] Medical 05/22/2020 12:00:00 AM EST NAVEEN ([facility]) Karina Conrad, VARNISH MIXER-R: [address], [address], [place] [address], Ph. Attender: Karina Conrad [facility] Medical 05/22/2020 12:00:00 AM EST NAVEEN ([facility]) Karina Conrad, VARNISH MIXER-R: [address], [address], [place] [address], Ph. Attender: Karina Conrad [facility] Medical 05/22/2020 12:00:00 AM EST NAVEEN ([facility]) Karina Conrad, VARNISH MIXER-R: [address], [address], [place] [address], Ph. Attender: Karina Conrad [facility] Medical 05/22/2020 12:00:00 AM EST NAVEEN ([facility]) Karina Conrad, VARNISH MIXER-R: [address], [address], [place] [address], Ph. Attender: Karina Conrad [facility] Medical 05/22/2020 12:00:00 AM EST NAVEEN ([facility]) Karina Conrad, VARNISH MIXER-R: [address], [address], [place] [address], Ph. Attender: Karina Conrad [facility] Medical 05/22/2020 12:00:00 AM EST NAVEEN ([facility]) Karina Conrad, VARNISH MIXER-R: [address], [address], [place] [address], Ph. Attender: Karina Conrad [facility] Medical 05/22/2020 12:00:00 AM EST NAVEEN ([facility]) Karina Conrad, VARNISH MIXER-R: [address], [address], [place] [address], Ph. Attender: Karina Conrad [facility] Medical 05/22/2020 12:00:00 AM EST NAVEEN ([facility]) Karina Conrad, VARNISH MIXER-R: [address], [address], [place] [address], Ph. Attender: Karina Conrad [facility] Medical 05/22/2020 12:00:00 AM EST NAVEEN ([facility]) Karina Conrad, VARNISH MIXER-R: [address], [address], [place] [address], Ph. Attender: Karina Conrad [facility] Medical 05/22/2020 12:00:00 AM EST NAVEEN ([facility]) Karina Conrad, VARNISH MIXER-R: [address], [address], [place] [address], Ph. Attender: Karina Conrad [facility] Medical 05/22/2020 12:00:00 AM EST NAVEEN ([facility]) Karina Conrad, VARNISH MIXER-R: [address], [address], [place] [address], Ph. Attender: Karina Conrad [facility] Medical 05/22/2020 12:00:00 AM EST NAVEEN ([facility]) Karina Conrad, VARNISH MIXER-R: [address], [address], [place] [address], Ph. Attender: Karina Conrad [facility] Medical 05/22/2020 12:00:00 AM EST NAVEEN ([facility]) Karina Conrad, VARNISH MIXER-R: [address], [address], [place] [address], Ph. Attender: Karina Conrad [facility] Medical 05/16/2020 12:00:00 AM EST NAVEEN ([facility]) Karina Conrad, VARNISH MIXER-R: [address], [address], [place] [address], Ph. Attender: Karina Conrad [facility] Medical 05/16/2020 12:00:00 AM EST NAVEEN ([facility]) Karina Conrad, VARNISH MIXER-R: [address], [address], [place] [address], Ph. Attender: Karina Conrad [facility] Medical 05/16/2020 12:00:00 AM EST NAVEEN ([facility]) Karina Conrad, VARNISH MIXER-R: [address], [address], [place] [address], Ph. Attender: Karina Conrad [facility] Medical 05/16/2020 12:00:00 AM EST NAVEEN ([facility]) Karina Conrad, VARNISH MIXER-R: [address], [address], [place] [address], Ph. Attender: Karina Conrad [facility] Medical 05/16/2020 12:00:00 AM EST NAVEEN ([facility]) Karina Conrad, VARNISH MIXER-R: [address], [address], [place] [address], Ph. Attender: Karina Conrad [facility] Medical 05/16/2020 12:00:00 AM EST NAVEEN ([facility]) Karina Conrad, VARNISH MIXER-R: [address], [address], [place] [address], Ph. Attender: Karina Conrad [facility] Medical 05/16/2020 12:00:00 AM EST NAVEEN ([facility]) Karina Conrad, VARNISH MIXER-R: [address], [address], [place] [address], Ph. Attender: Karina Conrad [facility] Medical 05/16/2020 12:00:00 AM EST NAVEEN ([facility]) Karina Conrad, VARNISH MIXER-R: [address], [address], [place] [address], Ph. Attender: Karina Conrad [facility] Medical 05/16/2020 12:00:00 AM EST NAVEEN ([facility]) Karina Conrad, VARNISH MIXER-R: [address], [address], [place] [address], Ph. Attender: Karina Conrad [facility] Medical 05/16/2020 12:00:00 AM EST NAVEEN ([facility]) Karina Conrad, VARNISH MIXER-R: [address], [address], [place] [address], Ph. Attender: Karina Conrad [facility] Medical 05/16/2020 12:00:00 AM EST NAVEEN ([facility]) Karina Conrad, VARNISH MIXER-R: [address], [address], [place] [address], Ph. Attender: Karina Conrad [facility] Medical 05/16/2020 12:00:00 AM EST NAVEEN ([facility]) Karina Conrad, VARNISH MIXER-R: [address], [address], [place] [address], Ph. Attender: Karina Conrad [facility] Medical 05/16/2020 12:00:00 AM EST NAVEEN ([facility]) Karina Conrad, VARNISH MIXER-R: [address], [address], [place] [address], Ph. Attender: Karina Conrad [facility] Medical 05/16/2020 12:00:00 AM EST NAVEEN ([facility]) Karina Conrad, VARNISH MIXER-R: [address], [address], [place] [address], Ph. Attender: Karina Conrad [facility] Medical 05/16/2020 12:00:00 AM EST NAVEEN ([facility]) Karina Conrad, VARNISH MIXER-R: [address], [address], [place] [address], Ph. Attender: Karina Conrad [facility] Medical 05/16/2020 12:00:00 AM EST NAVEEN ([facility]) Karina Conrad, VARNISH MIXER-R: [address], [address], [place] [address], Ph. Attender: Karina Conrad [facility] Medical 05/16/2020 12:00:00 AM EST NAVEEN ([facility]) Marley Khan MD: [address], [place] [address], Ph. Attender: Marley Khan MD [facility] Medical 05/15/2020 12:00:00 AM EST NAVEEN ([facility]) Marley Khan MD: [address], [place] [address], Ph. Attender: Marley Khan MD [facility] Medical 05/15/2020 12:00:00 AM EST NAVEEN ([facility]) Marley Khan MD: [address], [place] [address], Ph. Attender: Marley Khan MD [facility] Medical 05/15/2020 12:00:00 AM EST NAVEEN ([facility]) Marley Khan MD: [address], [place] [address], Ph. Attender: Marley Khan MD [facility] Medical 05/15/2020 12:00:00 AM EST NAVEEN ([facility]) Marley Khan MD: [address], [place] [address], Ph. Attender: Marley Khan MD [facility] Medical 05/15/2020 12:00:00 AM EST NAVEEN ([facility]) Marley Khan MD: [address], [facility] [place] [address], Ph. Attender: Marley Khan MD [facility] Medical 05/15/2020 12:00:00 AM EST NAVEEN ([facility]) Marley Khan MD: [address], [place] [address], Ph. Attender: Marley Khan MD [facility] Medical 05/15/2020 12:00:00 AM EST NAVEEN ([facility]) Marley hKan MD: [address], [place] [address], Ph. Attender: Marley Khan MD [facility] Medical 05/15/2020 12:00:00 AM EST NAVEEN ([facility]) Marley Khan MD: [address], [place] [address], Ph. Attender: Marley Khan MD [facility] Medical 05/15/2020 12:00:00 AM EST NAVEEN ([facility]) Marley Khan MD: [address], [place] [address], Ph. Attender: Marley Khan MD [facility] Medical 05/15/2020 12:00:00 AM EST NAVEEN ([facility]) Marley Khan MD: [address], [place] [address], Ph. Attender: Marley Khan MD [facility] Medical 05/15/2020 12:00:00 AM EST NAVEEN ([facility]) Marley Khan MD: [address], [place] [address], Ph. Attender: Marley Khan MD [facility] Medical 05/15/2020 12:00:00 AM EST NAVEEN ([facility]) Marley Khan MD: [address], [place] [address], Ph. Attender: Marley Khan MD [facility] Medical 05/15/2020 12:00:00 AM EST NAVEEN ([facility]) Marley Khan MD: [address], [place] [address], Ph. Attender: Marley Khan MD [facility] Medical 05/15/2020 12:00:00 AM EST NAVEEN ([facility]) Marley Khan MD: [address], [place] [address], Ph. Attender: Marley Khan MD [facility] Medical 05/15/2020 12:00:00 AM EST NAVEEN ([facility]) Marley Khan MD: [address], [place] [address], Ph. Attender: Marley Khan MD [facility] Medical 05/15/2020 12:00:00 AM EST NAVEEN ([facility]) Marley Khan MD: [address] [place] [address], Ph. Attender: Marley Khan MD [facility] Medical 05/15/2020 12:00:00 AM EST NAVEEN ([facility]) Marley Khan MD: [address] [place] [address], Ph. Attender: Marley Khan MD [facility] Medical 05/15/2020 12:00:00 AM EST NAVEEN ([facility]) Marley Khan MD: [address] [place] [address], Ph. Attender: Marley Khan MD [facility] Medical 05/15/2020 12:00:00 AM EST NAVEEN ([facility]) Karina Conrad, VARNISH MIXER-R: [address], [place] [address], Ph. Attender: Karina Conrad [facility] Medical 05/08/2020 12:00:00 AM EST NAVEEN ([facility]) Karina Conrad, VARNISH MIXER-R: [address], [address], [place] [address], Ph. Attender: Karina Conrad [facility] Medical 05/08/2020 12:00:00 AM EST NAVEEN ([facility]) Karina Conrad, VARNISH MIXER-R: [address], [address], [place] [address], Ph. Attender: Karina Conrad [facility] Medical 05/08/2020 12:00:00 AM EST NAVEEN ([facility]) Karina Conrad, VARNISH MIXER-R: [address], [address], [place] [address], Ph. Attender: Karina Conrad [facility] Medical 05/08/2020 12:00:00 AM EST NAVEEN ([facility]) Karina Conrad, VARNISH MIXER-R: [address], [address], [place] [address], Ph. Attender: Karina Conrad [facility] Medical 05/08/2020 12:00:00 AM EST NAVEEN ([facility]) Karina Conrad, VARNISH MIXER-R: [address], [address], [place] [address], Ph. Attender: Karina Conrad [facility] Medical 05/08/2020 12:00:00 AM EST NAVEEN ([facility]) Karina Conrad, VARNISH MIXER-R: [address], [address], [place] [address], Ph. Attender: Karina Conrad [facility] Medical 05/08/2020 12:00:00 AM EST NAVEEN ([facility]) Karina Conrad, VARNISH MIXER-R: [address], [address], [place] [address], Ph. Attender: Karina Conrad [facility] Medical 05/08/2020 12:00:00 AM EST NAVENE ([facility]) Karina Conrad, VARNISH MIXER-R: [address], [address], [place] [address], Ph. Attender: Karina Conrad [facility] Medical 05/08/2020 12:00:00 AM EST NAVEEN ([facility]) Karina Conrad, VARNISH MIXER-R: [address], [place] [address], Ph. Attender: Karina Conrad [facility] Medical 05/08/2020 12:00:00 AM EST NAVEEN ([facility]) Karina Conrad, VARNISH MIXER-R: [address], [address], [place] [address], Ph. Attender: Karina Conrad [facility] Medical 05/08/2020 12:00:00 AM EST NAVEEN ([facility]) Karina Conrad, VARNISH MIXER-R: [address], [address], [place] [address], Ph. Attender: Karina Conrad [facility] Medical 05/08/2020 12:00:00 AM EST NAVEEN ([facility]) Karina Conrad, VARNISH MIXER-R: [address], [address], [place] [address], Ph. Attender: Karina Conrad [facility] Medical 05/08/2020 12:00:00 AM EST NAVEEN ([facility]) Karina Conrad, VARNISH MIXER-R: [address], [address], [place] [address], Ph. Attender: Karina Conrad [facility] Medical 05/08/2020 12:00:00 AM EST NAVEEN ([facility]) Karina Conrad, VARNISH MIXER-R: [address], [place] [address], Ph. Attender: Karina Conrad [facility] Medical 05/08/2020 12:00:00 AM EST NAVEEN ([facility]) Karina Conrad, VARNISH MIXER-R: [address], [place] [address], Ph. Attender: Karina Conrad [facility] Medical 05/08/2020 12:00:00 AM EST NAVEEN ([facility]) Karina Conrad, VARNISH MIXER-R: [address], [place] [address], Ph. Attender: Karina Conrad [facility] Medical 05/08/2020 12:00:00 AM EST NAVEEN ([facility]) Karina Conrad, VARNISH MIXER-R: [address], [place] [address], Ph. Attender: Karina Conrad [facility] Medical 05/08/2020 12:00:00 AM EST NAVEEN ([facility]) Karina Conrad, VARNISH MIXER-R: [address], [place] [address], Ph. Attender: Karina Conrad [facility] Medical 05/08/2020 12:00:00 AM EST NAVEEN ([facility]) Karina Conrad, VARNISH MIXER-R: [address], [place] [address], Ph. Attender: Karina Conrad [facility] Medical 05/08/2020 12:00:00 AM EST NAVEEN ([facility]) Karina Conrad, VARNISH MIXER-R: [address], [place] [address], Ph. Attender: Karina Conrad [facility] Medical 05/01/2020 12:00:00 AM EST NAVEEN ([facility]) Karina Conrad, VARNISH MIXER-R: [address], [address], [place] [address], Ph. Attender: Karina Conrad [facility] Medical 05/01/2020 12:00:00 AM EST NAVEEN ([facility]) Karina Conrad, VARNISH MIXER-R: [address], [address], [place] [address], Ph. Attender: Karina Conrad [facility] Medical 05/01/2020 12:00:00 AM EST NAVEEN ([facility]) Karina Conrad, VARNISH MIXER-R: [address], [address], [place] [address], Ph. Attender: Karina Conrad [facility] Medical 05/01/2020 12:00:00 AM EST NAVEEN ([facility]) Karina Conrad, VARNISH MIXER-R: [address], [address], [place] [address], Ph. Attender: Karina Conrad [facility] Medical 05/01/2020 12:00:00 AM EST NAVEEN ([facility]) Karina Conrad, VARNISH MIXER-R: [address], [address], [place] [address], Ph. Attender: Karina Conrad [facility] Medical 05/01/2020 12:00:00 AM EST NAVEEN ([facility]) Karina Conrad, VARNISH MIXER-R: [address], [address], [place] [address], Ph. Attender: Karina Conrad [facility] Medical 05/01/2020 12:00:00 AM EST NAVEEN ([facility]) Karina Conrad, VARNISH MIXER-R: [address], [address], [place] [address], Ph. Attender: Karina Conrad [facility] Medical 05/01/2020 12:00:00 AM EST NAVEEN ([facility]) Karina Conrad, VARNISH MIXER-R: [address], [place] [address], Ph. Attender: Karina Conrad [facility] Medical 05/01/2020 12:00:00 AM EST NAVEEN ([facility]) Karina Conrad, VARNISH MIXER-R: [address], [place] [address], Ph. Attender: Karina Conrad [facility] Medical 05/01/2020 12:00:00 AM EST NAVEEN ([facility]) Karina Conrad, VARNISH MIXER-R: [address], [place] [address], Ph. Attender: Karina Conrad [facility] Medical 05/01/2020 12:00:00 AM EST NAVEEN ([facility]) Karina Conrad, VARNISH MIXER-R: [address], [address], [place] [address], Ph. Attender: Karina Conrad [facility] Medical 05/01/2020 12:00:00 AM EST NAVEEN ([facility]) Karina Conrad, VARNISH MIXER-R: [address], [address], [place] [address], Ph. Attender: Karina Conrad [facility] Medical 05/01/2020 12:00:00 AM EST NAVEEN ([facility]) Karina Conrad, VARNISH MIXER-R: [address], [address], [place] [address], Ph. Attender: Karina Conrad [facility] Medical 05/01/2020 12:00:00 AM EST NAVEEN ([facility]) Karina Conrad, VARNISH MIXER-R: [address], [address], [place] [address], Ph. Attender: Karina Conrad [facility] Medical 05/01/2020 12:00:00 AM EST NAVEEN ([facility]) Karina Conrad, VARNISH MIXER-R: [address], [address], [place] [address], Ph. Attender: Karina Conrad [facility] Medical 05/01/2020 12:00:00 AM EST NAVEEN ([facility]) Karina Conrad, VARNISH MIXER-R: [address], [address], [place] [address], Ph. Attender: Karina Conrad [facility] Medical 05/01/2020 12:00:00 AM EST NAVEEN ([facility]) Karina Conrad, VARNISH MIXER-R: [address], [address], [place] [address], Ph. Attender: Karina Conrad [facility] Medical 05/01/2020 12:00:00 AM EST NAVEEN ([facility]) Karina Conrad, VARNISH MIXER-R: [address], [address], [place] [address], Ph. Attender: Karina Conrad [facility] Medical 05/01/2020 12:00:00 AM EST NAVEEN ([facility]) Karina Conrad, VARNISH MIXER-R: [address], [address], [place] [address], Ph. Attender: Karina Conrad [facility] Medical 05/01/2020 12:00:00 AM EST NAVEEN ([facility]) Karina Conrad, VARNISH MIXER-R: [address], [address], [place] [address], Ph. Attender: Karina Conrad [facility] Medical 04/24/2020 12:00:00 AM EST NAVEEN ([facility]) Karina Conrad, VARNISH MIXER-R: [address], [address], [place] [address], Ph. Attender: Karina Conrad [facility] Medical 04/24/2020 12:00:00 AM EST NAVEEN ([facility]) Karina Conrad, VARNISH MIXER-R: [address], [address], [place] [address], Ph. Attender: Karina Conrad [facility] Medical 04/24/2020 12:00:00 AM EST NAVEEN ([facility]) Karina Conrad, VARNISH MIXER-R: [address], [address], [place] [address], Ph. Attender: Karina Conrad [facility] Medical 04/24/2020 12:00:00 AM EST NAVEEN ([facility]) Karina Conrad, VARNISH MIXER-R: [address], [address], [place] [address], Ph. Attender: Karina Conrad [facility] Medical 04/24/2020 12:00:00 AM EST NAVEEN ([facility]) Karina Conrad, VARNISH MIXER-R: [address], [address], [place] [address], Ph. Attender: Karina Conrad [facility] Medical 04/24/2020 12:00:00 AM EST NAVEEN ([facility]) Karina Conrad, VARNISH MIXER-R: [address], [address], [place] [address], Ph. Attender: Karina Conrad [facility] Medical 04/24/2020 12:00:00 AM EST NAVEEN ([facility]) Karina Conrad, VARNISH MIXER-R: [address], [address], [place] [address], Ph. Attender: Karina Conrad [facility] Medical 04/24/2020 12:00:00 AM EST NAVEEN ([facility]) Karina Conrad, VARNISH MIXER-R: [address], [address], [place] [address], Ph. Attender: Karina Conrad [facility] Medical 04/24/2020 12:00:00 AM EST NAVEEN ([facility]) Karina Conrad, VARNISH MIXER-R: [address], [address], [place] [address], Ph. Attender: Karina Conrad [facility] Medical 04/24/2020 12:00:00 AM EST NAVEEN ([facility]) Karina Conrad, VARNISH MIXER-R: [address], [address], [place] [address], Ph. Attender: Karina Conrad [facility] Medical 04/24/2020 12:00:00 AM EST NAVEEN ([facility]) Karina Conrad, VARNISH MIXER-R: [address], [address], [place] [address], Ph. Attender: Karina Conrad [facility] Medical 04/24/2020 12:00:00 AM EST NAVEEN ([facility]) Karina Conrad, VARNISH MIXER-R: [address], [address], [place] [address], Ph. Attender: Karina Conrad [facility] Medical 04/24/2020 12:00:00 AM EST NAVEEN ([facility]) Karina Conrad, VARNISH MIXER-R: [address], [address], [place] [address], Ph. Attender: Karina Conrad [facility] Medical 04/24/2020 12:00:00 AM EST NAVEEN ([facility]) Karina Conrad, VARNISH MIXER-R: [address], [address], [place] [address], Ph. Attender: Karina Conrad [facility] Medical 04/24/2020 12:00:00 AM EST NAVEEN ([facility]) Karina Conrad, VARNISH MIXER-R: [address], [address], [place] [address], Ph. Attender: Karina Conrad [facility] Medical 04/24/2020 12:00:00 AM EST NAVEEN ([facility]) Karina Conrad, VARNISH MIXER-R: [address], [address], [place] [address], Ph. Attender: Karina Conrad [facility] Medical 04/24/2020 12:00:00 AM EST NAVEEN ([facility]) Karina Conrad, VARNISH MIXER-R: [address], [address], [place] [address], Ph. Attender: Karina Conrad [facility] Medical 04/24/2020 12:00:00 AM EST NAVEEN ([facility]) Karina Conrad, VARNISH MIXER-R: [address], [address], [place] [address], Ph. Attender: Karina Conrad [facility] Medical 04/24/2020 12:00:00 AM EST NAVEEN ([facility]) Karina Conrad, VARNISH MIXER-R: [address], [address], [place] [address], Ph. Attender: Karina Conrad [facility] Medical 04/24/2020 12:00:00 AM EST NAVEEN ([facility]) Karina Conrad, VARNISH MIXER-R: [address], [address], [place] [address], Ph. Attender: Karina Conrad [facility] Medical 04/24/2020 12:00:00 AM EST NAVEEN ([facility]) Deb Scordo, PA-C: [address], [place] [address], Ph. Attender: Deb RIOS [facility] Medical 04/10/2020 12:00:00 AM EST NAVEEN ([facility]) Deb Lanier PA-C: [address], [place] [address], Ph. Attender: Deb RIOS [facility] Medical 04/10/2020 12:00:00 AM EST NAVEEN ([facility]) Deb Lanier PA-C: [address], [place] [address], Ph. Attender: Deb RIOS [facility] Medical 04/10/2020 12:00:00 AM EST NAVEEN ([facility]) Deb Lanier PA-C: [address], [place] [address], Ph. Attender: Deb RIOS [facility] Medical 04/10/2020 12:00:00 AM EST NAVEEN ([facility]) Deb Lanier PA-C: [address], [place] [address], Ph. Attender: Deb RIOS [facility] Medical 04/10/2020 12:00:00 AM EST NAVEEN ([facility]) Deb Lanier PA-C: [address], [place] [address], Ph. Attender: Deb RIOS [facility] Medical 04/10/2020 12:00:00 AM EST NAVEEN ([facility]) Deb Lanier PA-C: [address], [place] [address], Ph. Attender: Deb RIOS [facility] Medical 04/10/2020 12:00:00 AM EST NAVEEN ([facility]) Deb Lanier PA-C: [address], [place] [address], Ph. Attender: Deb RIOS [facility] Medical 04/10/2020 12:00:00 AM EST NAVEEN ([facility]) Deb Lanier PA-C: [address], [place] [address], Ph. Attender: Deb RIOS [facility] Medical 04/10/2020 12:00:00 AM EST NAVEEN ([facility]) Deb Lanier PA-C: [address], [place] [address], Ph. Attender: Deb RIOS [facility] Medical 04/10/2020 12:00:00 AM EST NAVEEN ([facility]) Deb Lanier PA-C: [address], [place] [address], Ph. Attender: Deb RIOS [facility] Medical 04/10/2020 12:00:00 AM EST NAVEEN ([facility]) Deb Lanier PA-C: [address], [place] [address], Ph. Attender: Deb RIOS [facility] Medical 04/10/2020 12:00:00 AM EST NAVEEN ([facility]) Deb Lanier PA-C: [address], [place] [address], Ph. Attender: Deb RIOS [facility] Medical 04/10/2020 12:00:00 AM EST NAVEEN ([facility]) Deb Lanier PA-C: [address], [place] [address], Ph. Attender: Deb RIOS [facility] Medical 04/10/2020 12:00:00 AM EST NAVEEN ([facility]) Deb Lanier PA-C: [address], [place] [address], Ph. Attender: Deb RIOS [facility] Medical 04/10/2020 12:00:00 AM EST NAVEEN ([facility]) Deb Lanier PA-C: [address], [place] [address], Ph. Attender: Deb RIOS [facility] Medical 04/10/2020 12:00:00 AM EST NAVEEN ([facility]) Deb Lanier PA-C: [address], [place] [address], Ph. Attender: Deb RIOS [facility] Medical 04/10/2020 12:00:00 AM EST NAVEEN ([facility]) Deb Lanier PA-C: [address], [place] [address], Ph. Attender: Deb RIOS [facility] Medical 04/10/2020 12:00:00 AM EST NAVEEN ([facility]) Deb Lanier PA-C: [address], [place] [address], Ph. Attender: Deb RIOS [facility] Medical 04/10/2020 12:00:00 AM EST NAVEEN ([facility]) Deb Lanier PA-C: [address], [place] [address], Ph. Attender: Deb RIOS [facility] Medical 04/10/2020 12:00:00 AM EST NAVEEN ([facility]) Deb Lanier PA-C: [address], [facility] [place] [address], Ph. Attender: Deb RIOS [facility] Medical 04/10/2020 12:00:00 AM EST NAVEEN ([facility]) Deb Lanier PA-C: [address], [place] [address], Ph. Attender: Deb RIOS [facility] Medical 04/10/2020 12:00:00 AM EST NAVEEN ([facility]) Karina Conrad, VARNISH MIXER-R: [address] , [place] [address], Ph. Attender: Karina Conrad [facility] Medical 04/05/2020 12:00:00 AM EST NAVEEN ([facility]) Karina Conrad VARNISH MIXER-R: [address] [place] [address], Ph. Attender: Karina Conrad [facility] Medical 04/05/2020 12:00:00 AM EST NAVEEN ([facility]) Karina Conrad VARNISH MIXER-R: [address] , [place] [address], Ph. Attender: Karina Conrad [facility] Medical 04/05/2020 12:00:00 AM EST NAVEEN ([facility]) Karina Conrad, VARNISH MIXER-R: [address] [place] [address], Ph. Attender: Karina Lathamcaridadlloydzeb [facility] Medical 04/05/2020 12:00:00 AM EST NAVEEN ([facility]) Karina Granadozeb, VARNISH MIXER-R: [address] [place] [address], Ph. Attender: Karina Monicalloydzeb [facility] Medical 04/05/2020 12:00:00 AM EST NAVEEN ([facility]) Karina Conrad, VARNISH MIXER-R: [address] [place] [address], Ph. Attender: Karina Monicalloydzeb [facility] Medical 04/05/2020 12:00:00 AM EST NAVEEN ([facility]) Karina Granadozeb, VARNISH MIXER-R: [address] [place] [address], Ph. Attender: Karina Monicalloydzeb [facility] Medical 04/05/2020 12:00:00 AM EST NAVEEN ([facility]) Karina Houston, VARNISH MIXER-R: [address] [place] [address], Ph. Attender: Karina Houston [facility] Medical 04/05/2020 12:00:00 AM EST NAVEEN ([facility]) Karina Monicalloydzeb, VARNISH MIXER-R: [address] [place] [address], Ph. Attender: Karina Conrad [facility] Medical 04/05/2020 12:00:00 AM EST NAVEEN ([facility]) Karina Conrad, VARNISH MIXER-R: [address] [place] [address], Ph. Attender: Karina Conrad [facility] Medical 04/05/2020 12:00:00 AM EST NAVEEN ([facility]) Karina Conrad, VARNISH MIXER-R: [address] [place] [address], Ph. Attender: Karina Monicapiero [facility] Medical 04/05/2020 12:00:00 AM EST NAVEEN ([facility]) Karina Conrad, VARNISH MIXER-R: [address] [place] [address], Ph. Attender: Karina Conrad [facility] Medical 04/05/2020 12:00:00 AM EST NAVEEN ([facility]) Karina Conrad, VARNISH MIXER-R: [address] [place] [address], Ph. Attender: Karina Monicalloydzeb [facility] Medical 04/05/2020 12:00:00 AM EST NAVEEN ([facility]) Karina Conrad, VARNISH MIXER-R: [address] [place] [address], Ph. Attender: Karina Monicalloydo [facility] Medical 04/05/2020 12:00:00 AM EST NAVEEN ([facility]) Karina Conrad, VARNISH MIXER-R: [address] [place] [address], Ph. Attender: Karina Monicalloydo [facility] Medical 04/05/2020 12:00:00 AM EST NAVEEN ([facility]) Karina Lathamcaridadpiero, VARNISH MIXER-R: [address] [place] [address], Ph. Attender: Karina Monicalloydzeb [facility] Medical 04/05/2020 12:00:00 AM EST NAVEEN ([facility]) Karina Granadozeb, VARNISH MIXER-R: [address] [place] [address], Ph. Attender: Karina Houston [facility] Medical 04/05/2020 12:00:00 AM EST NAVEEN ([facility]) Karina Lathamcaridadlloydzeb, VARNISH MIXER-R: [address] [place] [address], Ph. Attender: Karina Monicalloydzeb [facility] Medical 04/05/2020 12:00:00 AM EST NAVEEN ([facility]) Karina Moniaclloydzeb, VARNISH MIXER-R: [address] [place] [address], Ph. Attender: Karina Conrad [facility] Medical 04/05/2020 12:00:00 AM EST NAVEEN ([facility]) Karina Monicalloydzeb, VARNISH MIXER-R: [address] [place] [address], Ph. Attender: Karina Conrad [facility] Medical 04/05/2020 12:00:00 AM EST NAVEEN ([facility]) Karina Houston, VARNISH MIXER-R: [address] [place] [address], Ph. Attender: Karina Conrad [facility] Medical 04/05/2020 12:00:00 AM EST NAVEEN ([facility]) Karina Lathamcaridadlloydzeb, VARNISH MIXER-R: [address] [place] [address], Ph. Attender: Karina Houston [facility] Medical 04/05/2020 12:00:00 AM EST NAVEEN ([facility]) Karina Monicalloydzeb, VARNISH MIXER-R: [address] [place] [address], Ph. Attender: Karina Houston [facility] Medical 04/05/2020 12:00:00 AM EST NAVEEN ([facility]) Karina Houston, VARNISH MIXER-R: [address] [place] [address], Ph. Attender: Karina Houston [facility] Medical 03/30/2020 12:00:00 AM EST NAVEEN ([facility]) Karina Houtson, VARNISH MIXER-R: [address] [place] [address], Ph. Attender: Karina Conrad [facility] Medical 03/30/2020 12:00:00 AM EST NAVEEN ([facility]) Karina Houston, VARNISH MIXER-R: [address] [place] [address], Ph. Attender: Karina Houston [facility] Medical 03/30/2020 12:00:00 AM EST NAVEEN ([facility]) Karina Houston, VARNISH MIXER-R: [address] [place] [address], Ph. Attender: Karina Monicalloydzeb [facility] Medical 03/30/2020 12:00:00 AM EST NAVEEN ([facility]) Karina Lathamcaridadlloydzeb, VARNISH MIXER-R: [address] , [place] [address], Ph. Attender: Karina Monicalloydzeb [facility] Medical 03/30/2020 12:00:00 AM EST NAVEEN ([facility]) Karina Lathamcaridadlloydzeb, VARNISH MIXER-R: [address] , [place] [address], Ph. Attender: Karina Houston [facility] Medical 03/30/2020 12:00:00 AM EST NAVEEN ([facility]) Karina Monicalloydzeb, VARNISH MIXER-R: [address] [place] [address], Ph. Attender: Karina Monicalloydzeb [facility] Medical 03/30/2020 12:00:00 AM EST NAVEEN ([facility]) Karina Granadozeb, VARNISH MIXER-R: [address] [place] [address], Ph. Attender: Karina Houston [facility] Medical 03/30/2020 12:00:00 AM EST NAVEEN ([facility]) Karina Monicalloydzeb, VARNISH MIXER-R: [address] [place] [address], Ph. Attender: Karina Houston [facility] Medical 03/30/2020 12:00:00 AM EST NAVEEN ([facility]) Karina Houston, VARNISH MIXER-R: [address] , [place] [address], Ph. Attender: Karina Conrad [facility] Medical 03/30/2020 12:00:00 AM EST NAVEEN ([facility]) Karina Conrad, VARNISH MIXER-R: [address] [place] [address], Ph. Attender: Karina Conrad [facility] Medical 03/30/2020 12:00:00 AM EST NAVEEN ([facility]) Karina Conrad, VARNISH MIXER-R: [address] [place] [address], Ph. Attender: Karina Granadozeb [facility] Medical 03/30/2020 12:00:00 AM EST NAVEEN ([facility]) Karina Lathamcaridadlloydzeb, VARNISH MIXER-R: [address] [place] [address], Ph. Attender: Karina Lathamcaridadlloydzeb [facility] Medical 03/30/2020 12:00:00 AM EST NAVEEN ([facility]) Karina Granadozeb, VARNISH MIXER-R: [address] [place] [address], Ph. Attender: Karina Yeisonalberzeb [facility] Medical 03/30/2020 12:00:00 AM EST NAVEEN ([facility]) Karina Monicalloydzeb, VARNISH MIXER-R: [address] [place] [address], Ph. Attender: Karina Monicalloydzeb [facility] Medical 03/30/2020 12:00:00 AM EST NAVEEN ([facility]) Karina Houston, VARNISH MIXER-R: [address] , [place] [address], Ph. Attender: Karina Lathamcaridadlloydzeb [facility] Medical 03/30/2020 12:00:00 AM EST NAVEEN ([facility]) Karina Conrad, VARNISH MIXER-R: [address] [place] [address], Ph. Attender: Karina Monicalloydo [facility] Medical 03/30/2020 12:00:00 AM EST NAVEEN ([facility]) Karina Monicalloydzeb, VARNISH MIXER-R: [address] [place] [address], Ph. Attender: Karina Houston [facility] Medical 03/30/2020 12:00:00 AM EST NAVEEN ([facility]) Karina Monicalloydzeb, VARNISH MIXER-R: [address] [place] [address], Ph. Attender: Karina Monicalloydzeb [facility] Medical 03/30/2020 12:00:00 AM EST NAVEEN ([facility]) Karina Houston, VARNISH MIXER-R: [address] [place] [address], Ph. Attender: Karina Monicalloydo [facility] Medical 03/30/2020 12:00:00 AM EST NAVEEN ([facility]) Karina Vannesao, VARNISH MIXER-R: [address] [place] [address], Ph. Attender: Karina Houston [facility] Medical 03/30/2020 12:00:00 AM EST NAVEEN ([facility]) Karinapineda Conrad, VARNISH MIXER-R: [address] [place] [address], Ph. Attender: Karina Lathamcaridadlloydzeb [facility] Medical 03/30/2020 12:00:00 AM EST NAVEEN ([facility]) Karina Conrad, VARNISH MIXER-R: [address] [place] [address], Ph. Attender: Karina Monicalloydzeb [facility] Medical 03/30/2020 12:00:00 AM EST NAVEEN ([facility]) Karina Conrad, VARNISH MIXER-R: [address] [place] [address], Ph. Attender: Karina Houston [facility] Medical 03/30/2020 12:00:00 AM EST NAVEEN ([facility]) Karina Conrad, VARNISH MIXER-R: [address] [place] [address], Ph. Attender: Karina Monicalloydzeb [facility] Medical 03/23/2020 12:00:00 AM EST NAVEEN ([facility]) Karina Houston, VARNISH MIXER-R: [address] [place] [address], Ph. Attender: Karina Monicalloydzeb [facility] Medical 03/23/2020 12:00:00 AM EST NAVEEN ([facility]) Karina Monicalloydzeb, VARNISH MIXER-R: [address] [place] [address], Ph. Attender: Karina Houston [facility] Medical 03/23/2020 12:00:00 AM EST NAVEEN ([facility]) Karina Conrad, VARNISH MIXER-R: [address] [place] [address], Ph. Attender: Karina Conrad [facility] Medical 03/23/2020 12:00:00 AM EST NAVEEN ([facility]) Karina Conrad, VARNISH MIXER-R: [address] [place] [address], Ph. Attender: Karina Monicalloydzeb [facility] Medical 03/23/2020 12:00:00 AM EST NAVEEN ([facility]) Karina Granadozeb, [employer]: [address] [place] [address], Ph. Attender: Karina Monicalloydzeb [facility] Medical 03/23/2020 12:00:00 AM EST NAVEEN ([facility]) Karina Conrad, [employer]: [address] [place] [address], Ph. Attender: Karina Monicalloydzeb [facility] Medical 03/23/2020 12:00:00 AM EST NAVEEN ([facility]) Karina Houston, [employer]: [address] [place] [address], Ph. Attender: Karina Houston [facility] Medical 03/23/2020 12:00:00 AM EST NAVEEN ([facility]) Karina Houston, [employer]: [address] [place] [address], Ph. Attender: Karina Conrad [facility] Medical 03/23/2020 12:00:00 AM EST NAVEEN ([facility]) Karina Conrad, [employer]: [address] [place] [address], Ph. Attender: Karina Conrad [facility] Medical 03/23/2020 12:00:00 AM EST NAVEEN ([facility]) Karina Conrad, [employer]: [address] [place] [address], Ph. Attender: Karina Monicapiero [facility] Medical 03/23/2020 12:00:00 AM EST NAVEEN ([facility]) Karina Conrad, [employer]: [address] [place] [address], Ph. Attender: Karina Monicalloydzeb [facility] Medical 03/23/2020 12:00:00 AM EST NAVEEN ([facility]) Karina Conrad, VARNISH MIXER-R: [address] [place] [address], Ph. Attender: Karina Monicalloydzeb [facility] Medical 03/23/2020 12:00:00 AM EST NAVEEN ([facility]) Karina Monicalloydzeb, VARNISH MIXER-R: [address] [place] [address], Ph. Attender: Karina Monicalloydzeb [facility] Medical 03/23/2020 12:00:00 AM EST NAVEEN ([facility]) Karina Granadozeb, VARNISH MIXER-R: [address] [place] [address], Ph. Attender: Karina Houston [facility] Medical 03/23/2020 12:00:00 AM EST NAVEEN ([facility]) Karina Conrad, VARNISH MIXER-R: [address] [place] [address], Ph. Attender: Karina Monicalloydzeb [facility] Medical 03/23/2020 12:00:00 AM EST NAVEEN ([facility]) Karina Conrad, VARNISH MIXER-R: [address] [place] [address], Ph. Attender: Karina Monicalloydzeb [facility] Medical 03/23/2020 12:00:00 AM EST NAVEEN ([facility]) Karina Conrad, VARNISH MIXER-R: [address] [place] [address], Ph. Attender: Karina Monicalloydzeb [facility] Medical 03/23/2020 12:00:00 AM EST NAVEEN ([facility]) Karina Monicalloydzeb, VARNISH MIXER-R: [address] [place] [address], Ph. Attender: Karina Conrad [facility] Medical 03/23/2020 12:00:00 AM EST NAVEEN ([facility]) Karina Monicalloydzeb, VARNISH MIXER-R: [address] [place] [address], Ph. Attender: Karina Vannesao [facility] Medical 03/23/2020 12:00:00 AM EST NAVEEN ([facility]) Karina Monicalloydzeb, VARNISH MIXER-R: [address] [place] [address], Ph. Attender: Karina Houston [facility] Medical 03/23/2020 12:00:00 AM EST NAVEEN ([facility]) Karina Monicalloydzeb, VARNISH MIXER-R: [address] [place] [address], Ph. Attender: Karina Houston [facility] Medical 03/23/2020 12:00:00 AM EST NAEVEN ([facility]) Karina Houston, VARNISH MIXER-R: [address] , [place] [address], Ph. Attender: Karina Conrad [facility] Medical 03/23/2020 12:00:00 AM EST NAVEEN ([facility]) Karina Houston, VARNISH MIXER-R: [address] [place] [address], Ph. Attender: Karina Houston [facility] Medical 03/23/2020 12:00:00 AM EST NAVEEN ([facility]) Karina Houston, VARNISH MIXER-R: [address] [place] [address], Ph. Attender: Karina Conrad [facility] Medical 03/23/2020 12:00:00 AM EST NAVEEN ([facility]) Karina Houston, VARNISH MIXER-R: [address] [place] [address], Ph. Attender: Karina Conrad [facility] Medical 03/15/2020 12:00:00 AM EST NAVEEN ([facility]) Karinapineda Conrad, VARNISH MIXER-R: [address] , [place] [address], Ph. Attender: Karina Conrad [facility] Medical 03/15/2020 12:00:00 AM EST NAVEEN ([facility]) Karina Conrad, VARNISH MIXER-R: [address] [place] [address], Ph. Attender: Karina Granadozeb [facility] Medical 03/15/2020 12:00:00 AM EST NAVEEN ([facility]) Karina Conrad, VARNISH MIXER-R: [address] [place] [address], Ph. Attender: Karina Conrad [facility] Medical 03/15/2020 12:00:00 AM EST NAVEEN ([facility]) Kairna Lathamcaridadlloydzeb, VARNISH MIXER-R: [address] [place] [address], Ph. Attender: Karina Lathamcaridadlloydzeb [facility] Medical 03/15/2020 12:00:00 AM EST NAVEEN ([facility]) Karina Conrad, VARNISH MIXER-R: [address] [place] [address], Ph. Attender: Karina Monicalloydzeb [facility] Medical 03/15/2020 12:00:00 AM EST NAVEEN ([facility]) Karina Lathamcaridadlloydzeb, VARNISH MIXER-R: [address] [place] [address], Ph. Attender: Karina Monicalloydzeb [facility] Medical 03/15/2020 12:00:00 AM EST NAVEEN ([facility]) Karina Houston, VARNISH MIXER-R: [address] [place] [address], Ph. Attender: Karina Lathamcaridadpiero [facility] Medical 03/15/2020 12:00:00 AM EST NAVEEN ([facility]) Karina Conrad, VARNISH MIXER-R: [address] , [place] [address], Ph. Attender: Karina Granadozeb [facility] Medical 03/15/2020 12:00:00 AM EST NAVEEN ([facility]) Karina Conrad, VARNISH MIXER-R: [address] , [place] [address], Ph. Attender: Karina Granadozeb [facility] Medical 03/15/2020 12:00:00 AM EST NAVEEN ([facility]) Karina Monicalloydzeb, VARNISH MIXER-R: [address] [place] [address], Ph. Attender: Karina Monicalloydzeb [facility] Medical 03/15/2020 12:00:00 AM EST NAVEEN ([facility]) Karina Conrad, VARNISH MIXER-R: [address] [place] [address], Ph. Attender: Karina Monicalloydzeb [facility] Medical 03/15/2020 12:00:00 AM EST NAVEEN ([facility]) Karina Monicalloydzeb, VARNISH MIXER-R: [address] , [place] [address], Ph. Attender: Karina Monicalolydzeb [facility] Medical 03/15/2020 12:00:00 AM EST NAVEEN ([facility]) Karina Houston, VARNISH MIXER-R: [address] , [place] [address], Ph. Attender: Karina Conrad [facility] Medical 03/15/2020 12:00:00 AM EST NAVEEN ([facility]) Karina Conrad, VARNISH MIXER-R: [address] [place] [address], Ph. Attender: Karina Granadoo [facility] Medical 03/15/2020 12:00:00 AM EST NAVEEN ([facility]) Karina Conrad, VARNISH MIXER-R: [address] [place] [address], Ph. Attender: Karina Lathamcaridadlloydzeb [facility] Medical 03/15/2020 12:00:00 AM EST NAVEEN ([facility]) Karina Granadozeb, VARNISH MIXER-R: [address] [place] [address], Ph. Attender: Karina Monicalloydzeb [facility] Medical 03/15/2020 12:00:00 AM EST NAVEEN ([facility]) Karina Granadozeb, VARNISH MIXER-R: [address] [place] [address], Ph. Attender: Karina Monicalloydo [facility] Medical 03/15/2020 12:00:00 AM EST NAVEEN ([facility]) Karina Monicalloydo, VARNISH MIXER-R: [address] [place] [address], Ph. Attender: Karina Monicalloydo [facility] Medical 03/15/2020 12:00:00 AM EST NAVEEN ([facility]) Karina Vannesao, VARNISH MIXER-R: [address] [place] [address], Ph. Attender: Karina Houston [facility] Medical 03/15/2020 12:00:00 AM EST NAVEEN ([facility]) Karina Houston, VARNISH MIXER-R: [address] [place] [address], Ph. Attender: Karina Houston [facility] Medical 03/15/2020 12:00:00 AM EST NAVEEN ([facility]) Karina Houston, VARNISH MIXER-R: [address] [place] [address], Ph. Attender: Karina Conrad [facility] Medical 03/15/2020 12:00:00 AM EST NAVEEN ([facility]) Karina Houston, VARNISH MIXER-R: [address] [place] [address], Ph. Attender: Karina Cnorad [facility] Medical 03/15/2020 12:00:00 AM EST NAVEEN ([facility]) Karina Conrad, VARNISH MIXER-R: [address] [place] [address], Ph. Attender: Karina Conrad [facility] Medical 03/15/2020 12:00:00 AM EST NAVEEN ([facility]) Karina Conrad, VARNISH MIXER-R: [address] [place] [address], Ph. Attender: Karina Conrad [facility] Medical 03/15/2020 12:00:00 AM EST NAVEEN ([facility]) Karina Conrad, VARNISH MIXER-R: [address] , [place] [address], Ph. Attender: Karina Houston [facility] Medical 03/15/2020 12:00:00 AM EST NAVEEN ([facility]) Karina Houston, VARNISH MIXER-R: [address] , [place] [address], Ph. Attender: Karina Conrad [facility] Medical 03/15/2020 12:00:00 AM EST NAVEEN ([facility]) Deb Lanier PA-C: [address], [place] [address], Ph. Attender: Deb RIOS [facility] Medical 03/08/2020 12:00:00 AM EST NAVEEN ([facility]) Deb Lanier PA-C: [address], [place] [address], Ph. Attender: Deb RIOS [facility] Medical 03/08/2020 12:00:00 AM EST NAVEEN ([facility]) Deb Lanier PA-C: [address], [place] [address], Ph. Attender: Deb RIOS [facility] Medical 03/08/2020 12:00:00 AM EST NAVEEN ([facility]) Deb Lanier PA-C: [address], [place] [address], Ph. Attender: Deb RIOS [facility] Medical 03/08/2020 12:00:00 AM EST NAVEEN ([facility]) Deb Lanier PA-C: [address], [place] [address], Ph. Attender: Deb RIOS [facility] Medical 03/08/2020 12:00:00 AM EST NAVEEN ([facility]) Deb Lanier PA-C: [address], [place] [address], Ph. Attender: Deb RIOS [facility] Medical 03/08/2020 12:00:00 AM EST NAVEEN ([facility]) Deb Lanier PA-C: [address], [place] [address], Ph. Attender: Deb RIOS [facility] Medical 03/08/2020 12:00:00 AM EST NAVEEN ([facility]) Deb Lanier PA-C: [address], [place] [address], Ph. Attender: Deb RIOS [facility] Medical 03/08/2020 12:00:00 AM EST NAVEEN ([facility]) Deb Lanier PA-C: [address], [place] [address], Ph. Attender: Deb RIOS [facility] Medical 03/08/2020 12:00:00 AM EST NAVEEN ([facility]) Deb Lanier PA-C: [address], [place] [address], Ph. Attender: eDb RIOS [facility] Medical 03/08/2020 12:00:00 AM EST NAVEEN ([facility]) Deb Lanier PA-C: [address], [place] [address], Ph. Attender: Deb RIOS [facility] Medical 03/08/2020 12:00:00 AM EST NAVEEN ([facility]) Deb Lanier PA-C: [address], [place] [address], Ph. Attender: Deb RIOS [facility] Medical 03/08/2020 12:00:00 AM EST NAVEEN ([facility]) Deb Lanier PA-C: [address], [place] [address], Ph. Attender: Deb RIOS [facility] Medical 03/08/2020 12:00:00 AM EST NAVENE ([facility]) Deb Lanier PA-C: [address], [place] [address], Ph. Attender: Deb RIOS [facility] Medical 03/08/2020 12:00:00 AM EST NAVEEN ([facility]) Deb Lanier PA-C: [address], [place] [address], Ph. Attender: Deb RIOS [facility] Medical 03/08/2020 12:00:00 AM EST NAVEEN ([facility]) Deb Lanier PA-C: [address], [place] [address], Ph. Attender: Deb RIOS [facility] Medical 03/08/2020 12:00:00 AM EST NAVEEN ([facility]) Deb Lanier PA-C: [address], [place] [address], Ph. Attender: Deb RIOS [facility] Medical 03/08/2020 12:00:00 AM EST NAVEEN ([facility]) Deb Lanier PA-C: [address], [place] [address], Ph. Attender: Deb RIOS [facility] Medical 03/08/2020 12:00:00 AM EST NAVEEN ([facility]) Deb Lanier PA-C: [address], [place] [address], Ph. Attender: Deb RIOS [facility] Medical 03/08/2020 12:00:00 AM EST NAVEEN ([facility]) Deb Lanier PA-C: [address], [place] [address], Ph. Attender: Deb RIOS [facility] Medical 03/08/2020 12:00:00 AM EST NAVEEN ([facility]) Deb Lanier PA-C: [address], [place] [address], Ph. Attender: Deb RIOS [facility] Medical 03/08/2020 12:00:00 AM EST NAVEEN ([facility]) Deb Lanier PA-C: [address], [place] [address], Ph. Attender: Deb RIOS [facility] Medical 03/08/2020 12:00:00 AM EST NAVEEN ([facility]) Deb Lanier PA-C: [address], [place] [address], Ph. Attender: Deb RIOS [facility] Medical 03/08/2020 12:00:00 AM EST NAVEEN ([facility]) Deb Lanier PA-C: [address], [place] [address], Ph. Attender: Deb RIOS [facility] Medical 03/08/2020 12:00:00 AM EST NAVEEN ([facility]) Deb Lanier PA-C: [address], [place] [address], Ph. Attender: Deb RIOS [facility] Medical 03/08/2020 12:00:00 AM EST NAVEEN ([facility]) Deb Lanier PA-C: [address], [place] [address], Ph. Attender: Deb RIOS [facility] Medical 03/08/2020 12:00:00 AM EST NAVEEN ([facility]) Deb Lanier PA-C: [address], [place] [place] [address], Ph. Attender: Deb RIOS [facility] Medical 03/08/2020 12:00:00 AM EST NAVEEN ([facility]) Deb Lanier PA-C: [address], [place] [place] [address], Ph. Attender: Deb RIOS [facility] Medical 03/08/2020 12:00:00 AM EST NAVEEN ([facility]) STEVE SchreiberW-R: [address] , [place] [address], Ph. Attender: Karina Conrad [facility] Medical 03/02/2020 12:00:00 AM EST NAVEEN ([facility]) Karina Turturro, VARNISH MIXER-R: [address] [place] [address], Ph. Attender: Karina Lathamcaridadpiero [facility] Medical 03/02/2020 12:00:00 AM EST NAVEEN ([facility]) Karina Conrad, VARNISH MIXER-R: [address] [place] [address], Ph. Attender: Karina Monicalloydzeb [facility] Medical 03/02/2020 12:00:00 AM EST NAVEEN ([facility]) Karina Conrad, VARNISH MIXER-R: [address] [place] [address], Ph. Attender: Karina Houston [facility] Medical 03/02/2020 12:00:00 AM EST NAVEEN ([facility]) Karina Conrad, VARNISH MIXER-R: [address] [place] [address], Ph. Attender: Karina Monicalloydzeb [facility] Medical 03/02/2020 12:00:00 AM EST NAVEEN ([facility]) Karina Houston, VARNISH MIXER-R: [address] [place] [address], Ph. Attender: Karina Monicalloydo [facility] Medical 03/02/2020 12:00:00 AM EST NAVEEN ([facility]) Karina Monicalloydzeb, VARNISH MIXER-R: [address] [place] [address], Ph. Attender: Karina Houston [facility] Medical 03/02/2020 12:00:00 AM EST NAVEEN ([facility]) Karina Conrad, VARNISH MIXER-R: [address] [place] [address], Ph. Attender: Karina Conrad [facility] Medical 03/02/2020 12:00:00 AM EST NAVEEN ([facility]) Karina Granadozeb, VARNISH MIXER-R: [address] [place] [address], Ph. Attender: Karina Granadozeb [facility] Medical 03/02/2020 12:00:00 AM EST NAVEEN ([facility]) Karina Granadozeb, VARNISH MIXER-R: [address] [place] [address], Ph. Attender: Karina Monicalloydzeb [facility] Medical 03/02/2020 12:00:00 AM EST NAVEEN ([facility]) Karina Conrad, VARNISH MIXER-R: [address] [place] [address], Ph. Attender: Karina Monicalloydzeb [facility] Medical 03/02/2020 12:00:00 AM EST NAVEEN ([facility]) Karina Houston, VARNISH MIXER-R: [address] [place] [address], Ph. Attender: Karina Houston [facility] Medical 03/02/2020 12:00:00 AM EST NAVEEN ([facility]) Karina Houston, VARNISH MIXER-R: [address] [place] [address], Ph. Attender: Karina Houston [facility] Medical 03/02/2020 12:00:00 AM EST NAVEEN ([facility]) Karina Conrad, VARNISH MIXER-R: [address] [place] [address], Ph. Attender: Karina Conrad [facility] Medical 03/02/2020 12:00:00 AM EST NAVEEN ([facility]) Karina Conrad, VARNISH MIXER-R: [address] [place] [address], Ph. Attender: Karina Monicapiero [facility] Medical 03/02/2020 12:00:00 AM EST NAVEEN ([facility]) Karina Conrad, VARNISH MIXER-R: [address] [place] [address], Ph. Attender: Karina Monicalloydzeb [facility] Medical 03/02/2020 12:00:00 AM EST NAVEEN ([facility]) Karina Conrad, VARNISH MIXER-R: [address] [place] [address], Ph. Attender: Karina Monicalloydzeb [facility] Medical 03/02/2020 12:00:00 AM EST NAVEEN ([facility]) Karina Monicalloydzeb, VARNISH MIXER-R: [address] [place] [address], Ph. Attender: Karina Monicalloydzeb [facility] Medical 03/02/2020 12:00:00 AM EST NAVEEN ([facility]) Karina Granadozeb, VARNISH MIXER-R: [address] [place] [address], Ph. Attender: Karina Houston [facility] Medical 03/02/2020 12:00:00 AM EST NAVEEN ([facility]) Karina Conrad, VARNISH MIXER-R: [address] [place] [address], Ph. Attender: Karina Monicapiero [facility] Medical 03/02/2020 12:00:00 AM EST NAVEEN ([facility]) Karina Conrad, VARNISH MIXER-R: [address] [place] [address], Ph. Attender: Karina Monicalloydzeb [facility] Medical 03/02/2020 12:00:00 AM EST NAVEEN ([facility]) Karina Conrad, VARNISH MIXER-R: [address] [place] [address], Ph. Attender: Karina Monicalloydo [facility] Medical 03/02/2020 12:00:00 AM EST NAVEEN ([facility]) Karina Lathamcaridadlloydzeb, VARNISH MIXER-R: [address] [place] [address], Ph. Attender: Karina Houston [facility] Medical 03/02/2020 12:00:00 AM EST NAVEEN ([facility]) Karina Monicalloydzeb, VARNISH MIXER-R: [address] [place] [address], Ph. Attender: Karina Vannesao [facility] Medical 03/02/2020 12:00:00 AM EST NAVEEN ([facility]) Karina Monicalloydzeb, VARNISH MIXER-R: [address] [place] [address], Ph. Attender: Karina Vannesao [facility] Medical 03/02/2020 12:00:00 AM EST NAVEEN ([facility]) Karina Houston, VARNISH MIXER-R: [address] , [place] [address], Ph. Attender: Karina Houston [facility] Medical 03/02/2020 12:00:00 AM EST NAVEEN ([facility]) Karina Houston, VARNISH MIXER-R: [address] , [place] [address], Ph. Attender: Karina Houston [facility] Medical 03/02/2020 12:00:00 AM EST NAVEEN ([facility]) Karina Houston, VARNISH MIXER-R: [address] [place] [address], Ph. Attender: Karina Houston [facility] Medical 03/02/2020 12:00:00 AM EST NAVEEN ([facility]) Karina Houston, VARNISH MIXER-R: [address] [place] [address], Ph. Attender: Karina Conrad [facility] Medical 03/02/2020 12:00:00 AM EST NAVEEN ([facility]) Karina Houston, VARNISH MIXER-R: [address] [place] [address], Ph. Attender: Karina Conrad [facility] Medical 02/23/2020 12:00:00 AM EST NAVEEN ([facility]) Karinapineda Conrad, VARNISH MIXER-R: [address] , [place] [address], Ph. Attender: Karina Conrad [facility] Medical 02/23/2020 12:00:00 AM EST NAVEEN ([facility]) Karina Conrad, VARNISH MIXER-R: [address] [place] [address], Ph. Attender: Karina Lathamcaridadlloydzeb [facility] Medical 02/23/2020 12:00:00 AM EST NAVEEN ([facility]) Karina Granadozeb, VARNISH MIXER-R: [address] [place] [address], Ph. Attender: Karina Granadozeb [facility] Medical 02/23/2020 12:00:00 AM EST NAVEEN ([facility]) Karina Monicalloydzeb, VARNISH MIXER-R: [address] [place] [address], Ph. Attender: Karina Lathamcaridadlloydzeb [facility] Medical 02/23/2020 12:00:00 AM EST NAVEEN ([facility]) Karina Granadozeb, VARNISH MIXER-R: [address] [place] [address], Ph. Attender: Karina Monicalloydzeb [facility] Medical 02/23/2020 12:00:00 AM EST NAVEEN ([facility]) Karina Monicalloydzeb, VARNISH MIXER-R: [address] [place] [address], Ph. Attender: Karina Monicalloydzeb [facility] Medical 02/23/2020 12:00:00 AM EST NAVEEN ([facility]) Karina Houston, VARNISH MIXER-R: [address] [place] [address], Ph. Attender: Karina Lathamcaridadlloydzeb [facility] Medical 02/23/2020 12:00:00 AM EST NAVEEN ([facility]) Karina Conrad, VARNISH MIXER-R: [address] , [place] [address], Ph. Attender: Karina Monicalloydzeb [facility] Medical 02/23/2020 12:00:00 AM EST NAVEEN ([facility]) Karina Granadozeb, VARNISH MIXER-R: [address] , [place] [address], Ph. Attender: Karina Lathamcaridadlloydzeb [facility] Medical 02/23/2020 12:00:00 AM EST NAVEEN ([facility]) Karina Monicalloydzeb, VARNISH MIXER-R: [address] [place] [address], Ph. Attender: Karina Monicalloydzeb [facility] Medical 02/23/2020 12:00:00 AM EST NAVEEN ([facility]) Karina Lathamcaridadlloydzeb, VARNISH MIXER-R: [address] [place] [address], Ph. Attender: Karina Monicalloydzeb [facility] Medical 02/23/2020 12:00:00 AM EST NAVEEN ([facility]) Karina Monicalloydzeb, VARNISH MIXER-R: [address] , [place] [address], Ph. Attender: Karina Monicalloydzeb [facility] Medical 02/23/2020 12:00:00 AM EST NAVEEN ([facility]) Karinapineda Conrad, [employer]: [address] , [place] [address], Ph. Attender: Karina Conrad [facility] Medical 02/23/2020 12:00:00 AM EST NAVEEN ([facility]) Karina Conrad, [employer]: [address] [place] [address], Ph. Attender: Karina Granadoo [facility] Medical 02/23/2020 12:00:00 AM EST NAVEEN ([facility]) Karina Monicalloydzeb, [employer]: [address] [place] [address], Ph. Attender: Karina Lathamcaridadlloydzeb [facility] Medical 02/23/2020 12:00:00 AM EST NAVEEN ([facility]) Karina Monicalloydzeb, [employer]: [address] [place] [address], Ph. Attender: Karina Monicalloydzeb [facility] Medical 02/23/2020 12:00:00 AM EST NAVEEN ([facility]) Karina Lathamcaridadlloydzeb, [employer]: [address] [place] [address], Ph. Attender: Karina Monicalloydo [facility] Medical 02/23/2020 12:00:00 AM EST NAVEEN ([facility]) Karina Monicalloydzeb, [employer]: [address] [place] [address], Ph. Attender: Karina Monicalloydo [facility] Medical 02/23/2020 12:00:00 AM EST NAVEEN ([facility]) Karina Houston, [employer]: [address] [place] [address], Ph. Attender: Karina Houston [facility] Medical 02/23/2020 12:00:00 AM EST NAVEEN ([facility]) Karina Houston, [employer]: [address] [place] [address], Ph. Attender: Karina Houston [facility] Medical 02/23/2020 12:00:00 AM EST NAVEEN ([facility]) Karina Conrad, [employer]: [address] [place] [address], Ph. Attender: Karina Conrad [facility] Medical 02/23/2020 12:00:00 AM EST NAVEEN ([facility]) Karina Houston, [employer]: [address] [place] [address], Ph. Attender: Karina Conrad [facility] Medical 02/23/2020 12:00:00 AM EST NAVEEN ([facility]) Karina Conrad, [employer]: [address] [place] [address], Ph. Attender: Karina Conrad [facility] Medical 02/23/2020 12:00:00 AM EST NAVEEN ([facility]) Karina Conrad, [employer]: [address] [place] [address], Ph. Attender: Karina Conrad [facility] Medical 02/23/2020 12:00:00 AM EST NAVEEN ([facility]) Karina Conrad, [employer]: [address] [place] [address], Ph. Attender: Karina Monicalloydzeb [facility] Medical 02/23/2020 12:00:00 AM EST NAVEEN ([facility]) Karina Granadozeb, [employer]: [address] , [place] [address], Ph. Attender: Karina Lathamcaridadlloydzeb [facility] Medical 02/23/2020 12:00:00 AM EST NAVEEN ([facility]) Karina Monicalloydzeb, [employer]: [address] [place] [address], Ph. Attender: Karina Houston [facility] Medical 02/23/2020 12:00:00 AM EST NAVEEN ([facility]) Karina Lathamcaridadlloydzeb, [employer]: [address] [place] [address], Ph. Attender: Karina Houston [facility] Medical 02/23/2020 12:00:00 AM EST NAVEEN ([facility]) Karina Houston, [employer]: [address] [place] [address], Ph. Attender: Karina Houston [facility] Medical 02/23/2020 12:00:00 AM EST NAVEEN ([facility]) Karina Houston, [employer]: [address] [place] [address], Ph. Attender: Karina Houston [facility] Medical 02/17/2020 12:00:00 AM EST NAVEEN ([facility]) Karina Conrad, [employer]: [address] [place] [address], Ph. Attender: Karina Conrad [facility] Medical 02/17/2020 12:00:00 AM EST NAVEEN ([facility]) Karina Conrad, [employer]: [address] [place] [address], Ph. Attender: Karina Lathamcaridadlloydzeb [facility] Medical 02/17/2020 12:00:00 AM EST NAVEEN ([facility]) Karina Conrad, [employer]: [address] [place] [address], Ph. Attender: Karina Monicalloydzeb [facility] Medical 02/17/2020 12:00:00 AM EST NAVEEN ([facility]) Karina Conrad, [employer]: [address] [place] [address], Ph. Attender: Karina Monicalloydzeb [facility] Medical 02/17/2020 12:00:00 AM EST NAVEEN ([facility]) Karina Monicalloydzeb, [employer]: [address] [place] [address], Ph. Attender: Karina Monicalloydo [facility] Medical 02/17/2020 12:00:00 AM EST NAVEEN ([facility]) Karina Monicalloydzeb, [employer]: [address] [place] [address], Ph. Attender: Karina Conrad [facility] Medical 02/17/2020 12:00:00 AM EST NAVEEN ([facility]) Karina Conrad, [employer]: [address] , [place] [address], Ph. Attender: Karina Conrad [facility] Medical 02/17/2020 12:00:00 AM EST NAVEEN ([facility]) Karina Conrad, [employer]: [address] , [place] [address], Ph. Attender: Karina Lathamcaridadlloydo [facility] Medical 02/17/2020 12:00:00 AM EST NAVEEN ([facility]) Karina Conrad, [employer]: [address] [place] [address], Ph. Attender: Karina Granadoo [facility] Medical 02/17/2020 12:00:00 AM EST NAVEEN ([facility]) Karina Conrad, [employer]: [address] [place] [address], Ph. Attender: Karina Monicalloydo [facility] Medical 02/17/2020 12:00:00 AM EST NAVEEN ([facility]) Karina Conrad, [employer]: [address] [place] [address], Ph. Attender: Karina Monicalloydo [facility] Medical 02/17/2020 12:00:00 AM EST NAVEEN ([facility]) Karina Conrad, [employer]: [address] , [place] [address], Ph. Attender: Karina Monicalloydo [facility] Medical 02/17/2020 12:00:00 AM EST NAVEEN ([facility]) Karina Conrad, [employer]: [address] [place] [address], Ph. Attender: Karina Monicalloydzeb [facility] Medical 02/17/2020 12:00:00 AM EST NAVEEN ([facility]) Karina Granadozeb, [employer]: [address] [place] [address], Ph. Attender: Karina Monicalloydzeb [facility] Medical 02/17/2020 12:00:00 AM EST NAVEEN ([facility]) Karina Granadozeb, [employer]: [address] [place] [address], Ph. Attender: Karina Monicalloydzeb [facility] Medical 02/17/2020 12:00:00 AM EST NAVEEN ([facility]) Karina Monicalloydzeb, [employer]: [address] [place] [address], Ph. Attender: Karina Conrad [facility] Medical 02/17/2020 12:00:00 AM EST NAVEEN ([facility]) Karina Monicalloydzeb, [employer]: [address] [place] [address], Ph. Attender: Karina Houston [facility] Medical 02/17/2020 12:00:00 AM EST NAVEEN ([facility]) Karina Houston, [employer]: [address] [place] [address], Ph. Attender: Karina Houston [facility] Medical 02/17/2020 12:00:00 AM EST NAVEEN ([facility]) Karina Lathamcaridadlloydzeb, [employer]: [address] [place] [address], Ph. Attender: Karina Monicalloydzeb [facility] Medical 02/17/2020 12:00:00 AM EST NAVEEN ([facility]) Karina Lathamcaridadlloydzeb, [employer]: [address] [place] [address], Ph. Attender: Karina Houston [facility] Medical 02/17/2020 12:00:00 AM EST NAVEEN ([facility]) Karina Houston, [employer]: [address] [place] [address], Ph. Attender: Karina Houston [facility] Medical 02/17/2020 12:00:00 AM EST NAVEEN ([facility]) Karina Monicalloydzeb, [employer]: [address] [place] [address], Ph. Attender: Karina Conrad [facility] Medical 02/17/2020 12:00:00 AM EST NAVEEN ([facility]) Karina Monicalloydzeb, [employer]: [address] [place] [address], Ph. Attender: Karina Houston [facility] Medical 02/17/2020 12:00:00 AM EST NAVEEN ([facility]) Karina Houston, [employer]: [address] [place] [address], Ph. Attender: Karina Lathamcaridadlloydzeb [facility] Medical 02/17/2020 12:00:00 AM EST NAVEEN ([facility]) Karina Conrad, [employer]: [address] [place] [address], Ph. Attender: Karina Conrad [facility] Medical 02/17/2020 12:00:00 AM EST NAVEEN ([facility]) Karina Conrad, [employer]: [address] [place] [address], Ph. Attender: Karina Lathamcaridadlloydzeb [facility] Medical 02/17/2020 12:00:00 AM EST NAVEEN ([facility]) Karina Monicalloydzeb, [employer]: [address] [place] [address], Ph. Attender: Karina Lathamcaridadlloydzeb [facility] Medical 02/17/2020 12:00:00 AM EST NAVEEN ([facility]) Karina Conrad, [employer]: [address] [place] [address], Ph. Attender: Karina Monicalloydzeb [facility] Medical 02/17/2020 12:00:00 AM EST NAVEEN ([facility]) Karina Conrad, [employer]: [address] [place] [address], Ph. Attender: Karina Monicalloydo [facility] Medical 02/17/2020 12:00:00 AM EST NAVEEN ([facility]) Outpatient Attender: Deb TARANGO 02/10/2020 09:06:01 AM EDT [facility] Karina Conrad, [employer]: [address] [place] [address], Ph. Attender: Karina Conrad [facility] Medical 02/10/2020 12:00:00 AM EDT ESKO ([facility]) Karina Conrad, [employer]: [address] [place] [address], Ph. Attender: Karina Conrad [facility] Medical 02/10/2020 12:00:00 AM EDT ESKO ([facility]) Karina Conrad, [employer]: [address] [place] [address], Ph. Attender: Karina Conrad [facility] Medical 02/10/2020 12:00:00 AM EDT ESKO ([facility]) Karina Conrad, [employer]: [address] [place] [address], Ph. Attender: Karina Conrad [facility] Medical 02/10/2020 12:00:00 AM EDT ESKO ([facility]) Karina Conrad, [employer]: [address] [place] [address], Ph. Attender: Karina Conrad [facility] Medical 02/10/2020 12:00:00 AM EDT ESKO ([facility]) Karina Conrad, [employer]: [address] [place] [address], Ph. Attender: Karina Yeisoncaryl [facility] Medical 02/10/2020 12:00:00 AM EDT NAVEEN ([facility]) Karina Conrad, [employer]: [address] , [place] [address], Ph. Attender: Karina Conrad [facility] Medical 02/10/2020 12:00:00 AM EDT ESKO ([facility]) Karina Conrad, [employer]: [address] , [place] [address], Ph. Attender: Karina Conrad [facility] Medical 02/10/2020 12:00:00 AM EDT ESKO ([facility]) Karina Conrad, [employer]: [address] [place] [address], Ph. Attender: Karina Conrad [facility] Medical 02/10/2020 12:00:00 AM EDT ESKO ([facility]) Karina Conrad, [employer]: [address] [place] [address], Ph. Attender: Karina Conrad [facility] Medical 02/10/2020 12:00:00 AM EDT ESKO ([facility]) Karina Conrad, [employer]: [address] [place] [address], Ph. Attender: Karina Conrad [facility] Medical 02/10/2020 12:00:00 AM EDT ESKO ([facility]) Karina Conrad, [employer]: [address] [place] [address], Ph. Attender: Karina Conrad [facility] Medical 02/10/2020 12:00:00 AM EDT ESKO ([facility]) Karina Lathamcaridadpiero, [employer]: [address] [place] [address], Ph. Attender: Karina Monicalloydzeb [facility] Medical 02/10/2020 12:00:00 AM EDT ESKO ([facility]) Karina Monicalloydzeb, [employer]: [address] , [place] [address], Ph. Attender: Karina Monicalloydzeb [facility] Medical 02/10/2020 12:00:00 AM EDT ESKO ([facility]) Karina Houston, [employer]: [address] [place] [address], Ph. Attender: Karina Monicalloydzeb [facility] Medical 02/10/2020 12:00:00 AM EDT ESKO ([facility]) Karina Monicalloydzeb, [employer]: [address] [place] [address], Ph. Attender: Karina Houston [facility] Medical 02/10/2020 12:00:00 AM EDT ESKO ([facility]) Karina Monicalloydzeb, [employer]: [address] [place] [address], Ph. Attender: Karina Houston [facility] Medical 02/10/2020 12:00:00 AM EDT ESKO ([facility]) Karina Houston, [employer]: [address] , [place] [address], Ph. Attender: Karina Conrad [facility] Medical 02/10/2020 12:00:00 AM EDT ESKO ([facility]) Karina Conrad, [employer]: [address] , [place] [address], Ph. Attender: Karina Conrad [facility] Medical 02/10/2020 12:00:00 AM EDT ESKO ([facility]) Karina Conrad, [employer]: [address] , [place] [address], Ph. Attender: Karina Conrad [facility] Medical 02/10/2020 12:00:00 AM EDT ESKO ([facility]) Karina Monicalloydzeb, [employer]: [address] [place] [address], Ph. Attender: Karina Lathamcaridadlloydzeb [facility] Medical 02/10/2020 12:00:00 AM EDT NAVEEN ([facility]) Karina Lathamcaridadpiero, [employer]: [address] [place] [address], Ph. Attender: Karina Latahmcaridadlloydzeb [facility] Medical 02/10/2020 12:00:00 AM EDT ESKO ([facility]) Karina Monicalloydzeb, [employer]: [address] , [place] [address], Ph. Attender: Karina Monicalloydzeb [facility] Medical 02/10/2020 12:00:00 AM EDT [facility] ([facility]) Karina Houston, [employer]: [address] , [place] [address], Ph. Attender: Karina Conrad [facility] Medical 02/10/2020 12:00:00 AM EDT ESKO ([facility]) Karina Conrad, [employer]: [address] [place] [address], Ph. Attender: Karina Conrad [facility] Medical 02/10/2020 12:00:00 AM EDT ESKO ([facility]) Karina Lathamcaridadpiero, [employer]: [address] [place] [address], Ph. Attender: Karina Conrad [facility] Medical 02/10/2020 12:00:00 AM EDT ESKO ([facility]) Karina Monicalloydzeb, [employer]: [address] [place] [address], Ph. Attender: Karina Lathamcaridadpiero [facility] Medical 02/10/2020 12:00:00 AM EDT ESKO ([facility]) Karina Monicalloydzeb, [employer]: [address] [place] [address], Ph. Attender: Karina Lathamcaridadlloydzeb [facility] Medical 02/10/2020 12:00:00 AM EDT ESKO ([facility]) Karina Houston, [employer]: [address] [place] [address], Ph. Attender: Karina Monicalloydzeb [facility] Medical 02/10/2020 12:00:00 AM EDT ESKO ([facility]) Karina Conrad, [employer]: [address] [place] [address], Ph. Attender: Karina Conrad [facility] Medical 02/10/2020 12:00:00 AM EDT NAVEEN ([facility]) Karina Conrad, [employer]: [address] [place] [address], Ph. Attender: Karina Conrad [facility] Medical 02/10/2020 12:00:00 AM EDT ESKO ([facility]) Outpatient Attender: Deb RIOS 01/27/2020 08:01:01 PM EDT [facility] Outpatient Attender: Deb RIOS FP 01/27/2020 09:01:00 AM EDT [facility] Outpatient Attender: Deb RIOS FP 01/26/2020 12:24:01 PM EDT [facility] Outpatient Attender: Deb RIOS FP 01/26/2020 12:23:01 PM EDT [facility] Outpatient Attender: Deb RIOS FP 01/20/2020 08:01:02 PM EDT [facility] Outpatient Attender: Deb RIOS FP 01/20/2020 10:13:02 AM EDT [facility] Outpatient Attender: Deb RIOS FP 01/20/2020 08:56:01 AM EDT [facility] Outpatient Attender: Deb RIOS FP 01/12/2020 08:01:02 PM EDT [facility] Outpatient Attender: Deb RIOS FP 01/05/2020 08:01:04 PM EDT [facility] Outpatient Attender: Deb RIOS FP 01/05/2020 11:12:00 AM EDT [facility] Outpatient Attender: Deb RIOS FP 01/05/2020 10:03:01 AM EDT [facility] Outpatient Attender: Deb RIOS FP 12/29/2019 08:01:01 PM EDT [facility] Outpatient Attender: Deb TARANGO 12/29/2019 09:49:00 AM EDT [facility] Outpatient Attender: Deb TARANGO 12/27/2019 01:17:11 PM EDT [facility] Outpatient Attender: Deb TARANGO 12/22/2019 08:01:01 PM EDT [facility] Outpatient Attender: Deb TARANGO 12/22/2019 09:00:00 AM EDT [facility] Outpatient Attender: Deb TARANGO 12/15/2019 08:01:03 PM EDT [facility] Immunizations Vaccine Date Status Description Data Source(s) COVID-19 Vaccine Azalea (J&[facility]) 08/21/2020 12:00:00 AM EDT completed [facility] COVID-19 VACCINE Azalea 08/21/2020 12:00:00 AM EDT completed [facility] Vaccine Series Complete: YESThis Data wa s Submitted to [facility] Via [employer]. Medications Medication Brand Name Start Date Product Form Dose Route Admi nistrative Instructions Pharmacy Instructions Status Indications Reaction Description Data Source(s) Copper (Paragard T 380a) 380 square mm intrauterine device 09/01/2020 01:21:17 PM EDT active [facility] Trazodone Hydrochloride 100 MG Oral Tablet Trazodone 07/31 08:13:50 AM EDT 100 MG active [facility] Trazodone Hydrochloride 100 MG Oral Tablet Trazodone 07/31 08:13:50 AM EDT 100 MG active [facility] Cholecalciferol 5000 UNT Oral Capsule Cholecalciferol (Vitamin D3) Cholecalciferol (Vitamin D3) 07/31/2020 08:13:18 AM EDT 125 MCG active [facility] Cholecalciferol 5000 UNT Oral Capsule Cholecalciferol (Vitamin D3) Cholecalciferol (Vitamin D3) 07/31/2020 08:13:18 AM EDT 125 MCG [facility] quetiapine 100 MG Oral Tablet Quetiapine (Seroquel) 10 0 mg tablet Quetiapine (Seroquel) 100 mg tablet 07/31/2020 08:12:54 AM EDT 100 MG [facility] quetiapine 100 MG Oral Tablet Quetiapine (Seroquel) 10 0 mg tablet Quetiapine (Seroquel) 100 mg tablet 07/31/2020 08:12:54 AM EDT 100 MG active [facility] Hydroxyzine Hydrochloride 25 MG Oral Tablet Hydroxyzine Hcl Hydroxyzine Hcl 07/31/2020 08:12:24 AM EDT 25 MG active [facility] Hydroxyzine Hydrochloride 25 MG Oral Tablet Hydroxyzine Hcl Hydroxyzine Hcl 07/31/2020 08:12:24 AM EDT 25 MG active [facility] gabapentin 600 MG Oral Tablet Gabapentin Gabapentin 08:12:05 AM EDT 600 MG active [facility] gabapentin 600 MG Oral Tablet Gabapentin Gabapentin 08:12:05 AM EDT 600 MG active [facility] Sertraline 100 MG Oral Tablet Sertraline 07/31/2020 08:11:39 AM EDT 150 MG active [facility] Sertraline 100 MG Oral Tablet Sertraline 07/31/2020 08:11:39 AM EDT 150 MG active [facility] Purified Protein Derivative of Tuberculi n 50 UNT/ML Injectable Solution tuberculin PPD tuberculin PPD 07/31/2020 07:56:25 AM EDT 0.1 ML completed [facility] Purified Protein Derivative of Tuberculi n 50 UNT/ML Injectable Solution tuberculin PPD tuberculin PPD 07/31/2020 07:56:25 AM EDT 0.1 ML completed [facility] medroxyprogesterone acetate 150 MG/ML Injectable Suspe nsion [Depo-Provera] Depo-Provera 06/07/2020 12:00:00 AM EST active [facility] ([facility]) Trazodone Hydrochloride 150 MG Oral Tabl et trazodone 150 mg tablet Take 1 tablet every day by oral route at dinner for 30 days. trazodone 150 mg tablet Take 1 tablet every day by oral route at dinner for 30 days. 05/15/2020 12:00:00 AM EST 1 completed trazodone hydr ochloride 150 MG Oral Tablet [facility]AVEEN ([facility]) Trazodone Hydrochloride 150 MG Oral Tabl et trazodone 150 mg tablet Take 1 tablet every day by oral route at dinner for 30 days. trazodone 150 mg tablet Take 1 tablet every day by oral route at dinner for 30 days. 05/15/2020 12:00:00 AM EST 1 completed trazodone hydr ochloride 150 MG Oral Tablet [facility]KO ([facility]) Trazodone Hydrochloride 150 MG Oral Tabl et trazodone 150 mg tablet Take 1 tablet every day by oral route at dinner for 30 days. trazodone 150 mg tablet Take 1 tablet every day by oral route at dinner for 30 days. 05/15/2020 12:00:00 AM EST 1 completed trazodone hydr ochloride 150 MG Oral Tablet [facility]KO ([facility]) quetiapine 300 MG Oral Tablet QUETIAPINE FUMARATE 02/12/2020 12: 00:00 AM EDT tablet 30 TAKE ONE TABLET BY MOUTH AT BEDT COLIN TAKE ONE TABLET BY MOUTH AT BEDTIME SOLD: 02/13/2020 [facility] 100 mg 01/29/2020 12:00:00 AM [...] MOUTH AT BEDTIME SOLD: 03/07/2020 [facility] 50 mg 11/09/2019 12:00:00 AM EDT tablet 30 TAKE ONE TABLET BY MOUTH AT BEDTIME TAKE ONE TABLET BY MOUTH AT BEDTIME SOLD: 01/14/2020 [facility] 50 mg 11/09/2019 12:00:00 AM [...] TABLET BY MOUTH EVERY DAY SOLD: 12/14/2019 [facility] Sertraline 50 MG Oral Tablet sertraline 50 mg tablet sertraline 50 mg tablet completed sertraline 50 MG Oral Tablet [facility]) aripiprazole 10 MG Oral Tablet aripiprazole 10 mg tabl et aripiprazole 10 mg tablet completed aripiprazole 10 MG Oral Tablet [facility]) Trazodone Hydrochloride 50 MG Oral Tablet trazodone 50 mg tablet trazodone 50 mg tablet completed trazodone hydr ochloride 50 MG Oral Tablet [facility]) aripiprazole 15 MG Oral Tablet aripiprazole 15 mg tabl et aripiprazole 15 mg tablet completed aripiprazole 15 MG Oral Tablet [facility]) aripiprazole 15 MG Oral Tablet aripiprazole 15 mg tabl et aripiprazole 15 mg tablet completed aripiprazole 15 MG Oral Tablet [facility] ([facility]) Trazodone Hydrochloride 50 MG Oral Tablet trazodone 50 mg tablet trazodone 50 mg tablet completed trazodone hydr ochloride 50 MG Oral Tablet [facility]) Trazodone Hydrochloride 50 MG Oral Tablet trazodone 50 mg tablet trazodone 50 mg tablet completed trazodone hydr ochloride 50 MG Oral Tablet [facility]) Trazodone Hydrochloride 50 MG Oral Tablet trazodone 50 mg tablet trazodone 50 mg tablet completed trazodone hydr ochloride 50 MG Oral Tablet [facility] ([facility]) Trazodone Hydrochloride 50 MG Oral Tablet trazodone 50 mg tablet trazodone 50 mg tablet completed trazodone hydr ochloride 50 MG Oral Tablet [facility]EN ([facility]) aripiprazole 5 MG Oral Tablet aripiprazole 5 mg tablet aripi prazole 5 mg tablet completed aripiprazole 5 MG Oral Tablet [facility] ([facility]) aripiprazole 15 MG Oral Tablet aripiprazole 15 mg tabl et aripiprazole 15 mg tablet completed aripiprazole 15 MG Oral Tablet [facility] ([facility]) aripiprazole 5 MG Oral Tablet aripiprazole 5 mg tablet aripi prazole 5 mg tablet completed aripiprazole 5 MG Oral Tablet [facility] ([facility]) aripiprazole 15 MG Oral Tablet aripiprazole 15 mg tabl et aripiprazole 15 mg tablet completed aripiprazole 15 MG Oral Tablet [facility] ([facility]) Sertraline 50 MG Oral Tablet sertraline 50 mg tablet sertraline 50 mg tablet completed sertraline 50 MG Oral Tablet [facility] ([facility]) Sertraline 50 MG Oral Tablet sertraline 50 mg tablet sertraline 50 mg tablet completed sertraline 50 MG Oral Tablet [facility] ([facility]) aripiprazole 10 MG Oral Tablet aripiprazole 10 mg tabl et aripiprazole 10 mg tablet completed aripiprazole 10 MG Oral Tablet [facility] ([facility]) Trazodone Hydrochloride 150 MG Oral Tablet trazodone 1 50 mg tablet trazodone 150 mg tablet completed trazodone h ydrochloride 150 MG Oral Tablet [facility] ([facility]) Sertraline 50 MG Oral Tablet sertraline 50 mg tablet sertraline 50 mg tablet completed sertraline 50 MG Oral Tablet [facility] ([facility]) aripiprazole 10 MG Oral Tablet aripiprazole 10 mg tabl et aripiprazole 10 mg tablet completed aripiprazole 10 MG Oral Tablet [facility] ([facility]) Sertraline 50 MG Oral Tablet sertraline 50 mg tablet sertraline 50 mg tablet completed sertraline 50 MG Oral Tablet [facility] ([facility]) aripiprazole 5 MG Oral Tablet aripiprazole 5 mg tablet aripi prazole 5 mg tablet completed aripiprazole 5 MG Oral Tablet [facility] ([facility]) Sertraline 50 MG Oral Tablet sertraline 50 mg tablet sertraline 50 mg tablet completed sertraline 50 MG Oral Tablet [facility]AVEEN ([facility]) Sertraline 50 MG Oral Tablet sertraline 50 mg tablet sertraline 50 mg tablet completed sertraline 50 MG Oral Tablet [facility]AVEEN ([facility]) Sertraline 50 MG Oral Tablet sertraline 50 mg tablet sertraline 50 mg tablet completed sertraline 50 MG Oral Tablet [facility] ([facility]) aripiprazole 10 MG Oral Tablet aripiprazole 10 mg tabl et aripiprazole 10 mg tablet completed aripiprazole 10 MG Oral Tablet [facility]AVE[facility] ([facility]) Sertraline 50 MG Oral Tablet sertraline 50 mg tablet sertraline 50 mg tablet completed sertraline 50 MG Oral Tablet ESKO ([facility]) Trazodone Hydrochloride 150 MG Oral Tablet trazodone 1 50 mg tablet trazodone 150 mg tablet completed trazodone h ydrochloride 150 MG Oral Tablet ESKO ([facility]) aripiprazole 10 MG Oral Tablet aripiprazole 10 mg tabl et aripiprazole 10 mg tablet completed aripiprazole 10 MG Oral Tablet ESKO ([facility]) aripiprazole 5 MG Oral Tablet aripiprazole 5 mg tablet aripi prazole 5 mg tablet completed aripiprazole 5 MG Oral Tablet ES[facility] ([facility]) aripiprazole 10 MG Oral Tablet aripiprazole 10 mg tabl et aripiprazole 10 mg tablet completed aripiprazole 10 MG Oral Tablet ESKO ([facility]) Trazodone Hydrochloride 50 MG Oral Tablet trazodone 50 mg tablet trazodone 50 mg tablet completed trazodone hydr ochloride 50 MG Oral Tablet NAVEEN ([facility]) aripiprazole 10 MG Oral Tablet aripiprazole 10 mg tabl et aripiprazole 10 mg tablet completed aripiprazole 10 MG Oral Tablet ESKO ([facility]) aripiprazole 10 MG Oral Tablet aripiprazole 10 mg tabl et aripiprazole 10 mg tablet completed aripiprazole 10 MG Oral Tablet ESKO ([facility]) Sertraline 50 MG Oral Tablet sertraline 50 mg tablet sertraline 50 mg tablet completed sertraline 50 MG Oral Tablet NAVEEN ([facility]) aripiprazole 15 MG Oral Tablet aripiprazole 15 mg tabl et aripiprazole 15 mg tablet completed aripiprazole 15 MG Oral Tablet [facility]AVE[facility] ([facility]) Trazodone Hydrochloride 50 MG Oral Tablet trazodone 50 mg tablet trazodone 50 mg tablet completed trazodone hydr ochloride 50 MG Oral Tablet ES[facility] ([facility]) Sertraline 50 MG Oral Tablet sertraline 50 mg tablet sertraline 50 mg tablet completed sertraline 50 MG Oral Tablet [facility] ([facility]) Trazodone Hydrochloride 50 MG Oral Tablet trazodone 50 mg tablet trazodone 50 mg tablet completed trazodone hydr ochloride 50 MG Oral Tablet ESKO ([facility]) aripiprazole 10 MG Oral Tablet aripiprazole 10 mg tabl et aripiprazole 10 mg tablet completed aripiprazole 10 MG Oral Tablet [facility] ([facility]) aripiprazole 10 MG Oral Tablet aripiprazole 10 mg tabl et aripiprazole 10 mg tablet completed aripiprazole 10 MG Oral Tablet [facility] ([facility]) aripiprazole 15 MG Oral Tablet aripiprazole 15 mg tabl et aripiprazole 15 mg tablet completed aripiprazole 15 MG Oral Tablet [facility] ([facility]) Trazodone Hydrochloride 50 MG Oral Tablet trazodone 50 mg tablet trazodone 50 mg tablet completed trazodone hydr ochloride 50 MG Oral Tablet ES[facility] ([facility]) aripiprazole 10 MG Oral Tablet aripiprazole 10 mg tabl et aripiprazole 10 mg tablet completed aripiprazole 10 MG Oral Tablet [facility] ([facility]) aripiprazole 15 MG Oral Tablet aripiprazole 15 mg tabl et aripiprazole 15 mg tablet completed aripiprazole 15 MG Oral Tablet [facility] ([facility]) aripiprazole 10 MG Oral Tablet aripiprazole 10 mg tabl et aripiprazole 10 mg tablet completed aripiprazole 10 MG Oral Tablet [facility] ([facility]) Trazodone Hydrochloride 50 MG Oral Tablet trazodone 50 mg tablet trazodone 50 mg tablet completed trazodone hydr ochloride 50 MG Oral Tablet [facility]AVE[facility] ([facility]) aripiprazole 5 MG Oral Tablet aripiprazole 5 mg tablet aripi prazole 5 mg tablet completed aripiprazole 5 MG Oral Tablet [facility] ([facility]) aripiprazole 10 MG Oral Tablet aripiprazole 10 mg tabl et aripiprazole 10 mg tablet completed aripiprazole 10 MG Oral Tablet [facility] ([facility]) Sertraline 50 MG Oral Tablet sertraline 50 mg tablet sertraline 50 mg tablet completed sertraline 50 MG Oral Tablet [facility] ([facility]) Sertraline 50 MG Oral Tablet sertraline 50 mg tablet sertraline 50 mg tablet completed sertraline 50 MG Oral Tablet [facility] ([facility]) aripiprazole 15 MG Oral Tablet aripiprazole 15 mg tabl et aripiprazole 15 mg tablet completed aripiprazole 15 MG Oral Tablet [facility] ([facility]) aripiprazole 10 MG Oral Tablet aripiprazole 10 mg tabl et aripiprazole 10 mg tablet completed aripiprazole 10 MG Oral Tablet [facility] ([facility]) Trazodone Hydrochloride 50 MG Oral Tablet trazodone 50 mg tablet trazodone 50 mg tablet completed trazodone hydr ochloride 50 MG Oral Tablet [facility] ([facility]) Trazodone Hydrochloride 50 MG Oral Tablet trazodone 50 mg tablet trazodone 50 mg tablet completed trazodone hydr ochloride 50 MG Oral Tablet [facility] ([facility]) aripiprazole 10 MG Oral Tablet aripiprazole 10 mg tabl et aripiprazole 10 mg tablet completed aripiprazole 10 MG Oral Tablet [facility] ([facility]) Sertraline 50 MG Oral Tablet sertraline 50 mg tablet sertraline 50 mg tablet completed sertraline 50 MG Oral Tablet [facility] ([facility]) Sertraline 50 MG Oral Tablet sertraline 50 mg tablet sertraline 50 mg tablet completed sertraline 50 MG Oral Tablet [facility] ([facility]) aripiprazole 15 MG Oral Tablet aripiprazole 15 mg tabl et aripiprazole 15 mg tablet completed aripiprazole 15 MG Oral Tablet [facility] ([facility]) aripiprazole 5 MG Oral Tablet aripiprazole 5 mg tablet aripi prazole 5 mg tablet completed aripiprazole 5 MG Oral Tablet [facility] ([facility]) aripiprazole 10 MG Oral Tablet aripiprazole 10 mg tabl et aripiprazole 10 mg tablet completed aripiprazole 10 MG Oral Tablet [facility] ([facility]) aripiprazole 10 MG Oral Tablet aripiprazole 10 mg tabl et aripiprazole 10 mg tablet completed aripiprazole 10 MG Oral Tablet [facility] ([facility]) aripiprazole 10 MG Oral Tablet aripiprazole 10 mg tabl et aripiprazole 10 mg tablet completed aripiprazole 10 MG Oral Tablet [facility] ([facility]) aripiprazole 15 MG Oral Tablet aripiprazole 15 mg tabl et aripiprazole 15 mg tablet completed aripiprazole 15 MG Oral Tablet [facility] ([facility]) Trazodone Hydrochloride 50 MG Oral Tablet trazodone 50 mg tablet trazodone 50 mg tablet completed trazodone hydr ochloride 50 MG Oral Tablet [facility] ([facility]) Trazodone Hydrochloride 150 MG Oral Tablet trazodone 1 50 mg tablet trazodone 150 mg tablet completed trazodone h ydrochloride 150 MG Oral Tablet [facility] ([facility]) Trazodone Hydrochloride 50 MG Oral Tablet trazodone 50 mg tablet trazodone 50 mg tablet completed trazodone hydr ochloride 50 MG Oral Tablet [facility] ([facility]) Sertraline 50 MG Oral Tablet sertraline 50 mg tablet sertraline 50 mg tablet completed sertraline 50 MG Oral Tablet [facility] ([facility]) Sertraline 50 MG Oral Tablet sertraline 50 mg tablet sertraline 50 mg tablet completed sertraline 50 MG Oral Tablet [facility] ([facility]) Sertraline 50 MG Oral Tablet sertraline 50 mg tablet sertraline 50 mg tablet completed sertraline 50 MG Oral Tablet ESKO ([facility]) aripiprazole 15 MG Oral Tablet aripiprazole 15 mg tabl et aripiprazole 15 mg tablet completed aripiprazole 15 MG Oral Tablet [facility] ([facility]) aripiprazole 5 MG Oral Tablet aripiprazole 5 mg tablet aripi prazole 5 mg tablet completed aripiprazole 5 MG Oral Tablet [facility] ([facility]) aripiprazole 5 MG Oral Tablet aripiprazole 5 mg tablet aripi prazole 5 mg tablet completed aripiprazole 5 MG Oral Tablet [facility] ([facility]) aripiprazole 10 MG Oral Tablet aripiprazole 10 mg tabl et aripiprazole 10 mg tablet completed aripiprazole 10 MG Oral Tablet [facility] ([facility]) Trazodone Hydrochloride 50 MG Oral Tablet trazodone 50 mg tablet trazodone 50 mg tablet completed trazodone hydr ochloride 50 MG Oral Tablet [facility] ([facility]) aripiprazole 10 MG Oral Tablet aripiprazole 10 mg tabl et aripiprazole 10 mg tablet completed aripiprazole 10 MG Oral Tablet [facility]EN ([facility]) aripiprazole 15 MG Oral Tablet aripiprazole 15 mg tabl et aripiprazole 15 mg tablet completed aripiprazole 15 MG Oral Tablet ESKO ([facility]) aripiprazole 10 MG Oral Tablet aripiprazole 10 mg tabl et aripiprazole 10 mg tablet completed aripiprazole 10 MG Oral Tablet ESKO ([facility]) Trazodone Hydrochloride 50 MG Oral Tablet trazodone 50 mg tablet trazodone 50 mg tablet completed trazodone hydr ochloride 50 MG Oral Tablet ESKO ([facility]) aripiprazole 5 MG Oral Tablet aripiprazole 5 mg tablet aripi prazole 5 mg tablet completed aripiprazole 5 MG Oral Tablet [facility] ([facility]) Sertraline 50 MG Oral Tablet sertraline 50 mg tablet sertraline 50 mg tablet completed sertraline 50 MG Oral Tablet [facility]) aripiprazole 5 MG Oral Tablet aripiprazole 5 mg tablet aripi prazole 5 mg tablet completed aripiprazole 5 MG Oral Tablet [facility]) aripiprazole 5 MG Oral Tablet aripiprazole 5 mg tablet aripi prazole 5 mg tablet completed aripiprazole 5 MG Oral Tablet ESKO ([facility]) Sertraline 100 MG Oral Tablet sertraline 100 mg tablet sertr jorge 100 mg tablet completed sertraline 100 MG Oral Tablet ESKO ([facility]) aripiprazole 10 MG Oral Tablet aripiprazole 10 mg tabl et aripiprazole 10 mg tablet completed aripiprazole 10 MG Oral Tablet [facility]) aripiprazole 5 MG Oral Tablet aripiprazole 5 mg tablet aripi prazole 5 mg tablet completed aripiprazole 5 MG Oral Tablet NAVEEN ([facility]) Trazodone Hydrochloride 50 MG Oral Tablet trazodone 50 mg tablet trazodone 50 mg tablet completed trazodone hydr ochloride 50 MG Oral Tablet NAVEEN ([facility]) aripiprazole 5 MG Oral Tablet aripiprazole 5 mg tablet aripi prazole 5 mg tablet completed aripiprazole 5 MG Oral Tablet NAVEEN ([facility]) aripiprazole 15 MG Oral Tablet aripiprazole 15 mg tabl et aripiprazole 15 mg tablet completed aripiprazole 15 MG Oral Tablet NAVEEN ([facility]) aripiprazole 10 MG Oral Tablet aripiprazole 10 mg tabl et aripiprazole 10 mg tablet completed aripiprazole 10 MG Oral Tablet NAVEEN ([facility]) aripiprazole 15 MG Oral Tablet aripiprazole 15 mg tabl et aripiprazole 15 mg tablet completed aripiprazole 15 MG Oral Tablet ESKO ([facility]) aripiprazole 5 MG Oral Tablet aripiprazole 5 mg tablet aripi prazole 5 mg tablet completed aripiprazole 5 MG Oral Tablet NAVEEN ([facility]) gabapentin 600 MG Oral Tablet gabapentin 600 mg tablet gabap entin 600 mg tablet completed gabapentin 600 MG Oral Tablet [facility]AVEEN ([facility]) aripiprazole 5 MG Oral Tablet aripiprazole 5 mg tablet aripi prazole 5 mg tablet completed aripiprazole 5 MG Oral Tablet ESKO ([facility]) aripiprazole 5 MG Oral Tablet aripiprazole 5 mg tablet aripi prazole 5 mg tablet completed aripiprazole 5 MG Oral Tablet NAVEEN ([facility]) aripiprazole 5 MG Oral Tablet aripiprazole 5 mg tablet aripi prazole 5 mg tablet completed aripiprazole 5 MG Oral Tablet NAVEEN ([facility]) aripiprazole 10 MG Oral Tablet aripiprazole 10 mg tabl et aripiprazole 10 mg tablet completed aripiprazole 10 MG Oral Tablet NAVEEN ([facility]) aripiprazole 5 MG Oral Tablet aripiprazole 5 mg tablet aripi prazole 5 mg tablet completed aripiprazole 5 MG Oral Tablet NAVEEN ([facility]) aripiprazole 5 MG Oral Tablet aripiprazole 5 mg tablet aripi prazole 5 mg tablet completed aripiprazole 5 MG Oral Tablet NAVEEN ([facility]) Trazodone Hydrochloride 50 MG Oral Tablet trazodone 50 mg tablet trazodone 50 mg tablet completed trazodone hydr ochloride 50 MG Oral Tablet NAVEEN ([facility]) aripiprazole 5 MG Oral Tablet aripiprazole 5 mg tablet aripi prazole 5 mg tablet completed aripiprazole 5 MG Oral Tablet NAVEEN ([facility]) aripiprazole 5 MG Oral Tablet aripiprazole 5 mg tablet aripi prazole 5 mg tablet completed aripiprazole 5 MG Oral Tablet NAVEEN ([facility]) aripiprazole 5 MG Oral Tablet aripiprazole 5 mg tablet aripi prazole 5 mg tablet completed aripiprazole 5 MG Oral Tablet NAVEEN ([facility]) aripiprazole 15 MG Oral Tablet aripiprazole 15 mg tabl et aripiprazole 15 mg tablet completed aripiprazole 15 MG Oral Tablet NAVEEN ([facility]) aripiprazole 10 MG Oral Tablet aripiprazole 10 mg tabl et aripiprazole 10 mg tablet completed aripiprazole 10 MG Oral Tablet NAVEEN ([facility]) aripiprazole 10 MG Oral Tablet aripiprazole 10 mg tabl et aripiprazole 10 mg tablet completed aripiprazole 10 MG Oral Tablet NAVEEN ([facility]) aripiprazole 15 MG Oral Tablet aripiprazole 15 mg tabl et aripiprazole 15 mg tablet completed aripiprazole 15 MG Oral Tablet NAVEEN ([facility]) Sertraline 50 MG Oral Tablet sertraline 50 mg tablet sertraline 50 mg tablet completed sertraline 50 MG Oral Tablet NVAEEN ([facility]) aripiprazole 5 MG Oral Tablet aripiprazole 5 mg tablet aripi prazole 5 mg tablet completed aripiprazole 5 MG Oral Tablet NAVEEN ([facility]) Sertraline 50 MG Oral Tablet sertraline 50 mg tablet sertraline 50 mg tablet completed sertraline 50 MG Oral Tablet NAVEEN ([facility]) aripiprazole 5 MG Oral Tablet aripiprazole 5 mg tablet aripi prazole 5 mg tablet completed aripiprazole 5 MG Oral Tablet NAVEEN ([facility]) aripiprazole 10 MG Oral Tablet aripiprazole 10 mg tabl et aripiprazole 10 mg tablet completed aripiprazole 10 MG Oral Tablet NAVEEN ([facility]) aripiprazole 15 MG Oral Tablet aripiprazole 15 mg tabl et aripiprazole 15 mg tablet completed aripiprazole 15 MG Oral Tablet NAVEEN ([facility]) aripiprazole 5 MG Oral Tablet aripiprazole 5 mg tablet aripi prazole 5 mg tablet completed aripiprazole 5 MG Oral Tablet NAVEEN ([facility]) aripiprazole 5 MG Oral Tablet aripiprazole 5 mg tablet aripi prazole 5 mg tablet completed aripiprazole 5 MG Oral Tablet NAVEEN ([facility]) aripiprazole 5 MG Oral Tablet aripiprazole 5 mg tablet aripi prazole 5 mg tablet completed aripiprazole 5 MG Oral Tablet NAVEEN ([facility]) aripiprazole 10 MG Oral Tablet aripiprazole 10 mg tabl et aripiprazole 10 mg tablet completed aripiprazole 10 MG Oral Tablet NAVEEN ([facility]) aripiprazole 15 MG Oral Tablet aripiprazole 15 mg tabl et aripiprazole 15 mg tablet completed aripiprazole 15 MG Oral Tablet ESKO ([facility]) Trazodone Hydrochloride 150 MG Oral Tablet trazodone 1 50 mg tablet trazodone 150 mg tablet completed trazodone h ydrochloride 150 MG Oral Tablet NAVEEN ([facility]) Trazodone Hydrochloride 50 MG Oral Tablet trazodone 50 mg tablet trazodone 50 mg tablet completed trazodone hydr ochloride 50 MG Oral Tablet ESKO ([facility]) aripiprazole 5 MG Oral Tablet aripiprazole 5 mg tablet aripi prazole 5 mg tablet completed aripiprazole 5 MG Oral Tablet NAVEEN ([facility]) Insurance Providers Payer name Policy type / Coverage type Policy ID Covered republican ID Covered republican's relationship to sahni Policy Sahni Plan Information [employer] [place] 140/640 [id number] MEDICAID [id number] SP [id number] Medicaid P [id number] S [id number] Medicaid S [id number] S [id number] Managed Care - Community Plan [facility] P [id number] S [id number] Managed Care - Community Plan [facility] P [id number] S [id number] Managed Care - Community Plan [facility] P [id number] S [id number] Managed Care - Community Plan [facility] P [id number] S [id number] Medicaid S [id number] S [id number] Managed Care - [facility] Community Plan P [id number] S [id number] Managed Care - Community Plan [facility] P [id number] S [id number] Wellcare P [id number] S [id number] Medicare P [id number] S [id number] Medicaid S [id number] S [id number] Medicaid S [id number] S [id number] Medicaid S [id number] S [id number] Medicaid S [id number] [facility]-Community Plan-[facility] [id number] Self [id number] [facility] (HM) [id number] Self [id number] [facility] [id number] SP [id number] SELF PAY ONLY [id number] SP [id number] [facility] MEDICAID [id number] SP [id number] [id number] SP [id number] Managed Care - Community Plan [facility] P [id number] S [id number] [facility] [id number] SP [id number] [facility] [id number] SP [id number] [facility] BCBS B [id number] C [id number] BCBS OF [place] 306/806 [id number] SP [id number] [facility] [id number] SP [id number] [facility](MCAID) O [id number] S [id number] [facility] UNAVAILABLE [id number] S UNAVAILABLE SELF PAY UNAVAILABLE SP UNAVAILA BLE [facility] [id number] SP [id number] MEDICARE [id number] SP [id number] EMEDNY [id number] SP [id number] [facility] 0000 SP 0000 [facility] [id number] SP [id number] MEDICAID [id number] SP [id number] MEDICARE C [id number] S [id number] MEDICAID M [id number] S [id number] [facility] O [id number] S [id number] [facility]) O [id number] S [id number] [facility] Maintenance Organization (O) [id number] Self [id number] [facility] (O) [id number] Self [id number] [facility] (HMO) [id number] Self [id number] [facility] Maintenance Organization ([facility]) [id number] Self [id number] [facility] [id number] SP [id number] [facility] [id number] SP [id number] [facility] [id number] Self [id number] Problems, Conditions, and Diagnoses Code Display Name Description Problem Type Effective Dates Data Source(s) 52366551 Anxiety (finding) Anxiety (finding) Condition 08/09 12:00:00 AM EDT [facility]) [id number] Unspecified anxiety disorder Unspecified anxiety disor daren Condition 08/09/2020 12:00:00 AM EDT [facility] ([facility]) 659509681 Tobacco use Tobacco use Condition 08/09/2020 12:00:00 AM EDT [facility]) 556336658 Unspecified anxiety disorder Unspecified anxiety disor daren Condition 08/09/2020 12:00:00 AM EDT [facility] 522163472 Tobacco use Tobacco use Condition 08/09/2020 12:00:00 AM EDT [facility] ([facility]) 04297444 Anxiety (finding) Anxiety (finding) Condition 08/09 12:00:00 AM EDT [facility] ([facility]) 661747148 Unspecified anxiety disorder Unspecified anxiety disor daren Condition 08/09/2020 12:00:00 AM EDT [facility] ([facility]) 38594633 Anxiety (finding) Anxiety (finding) Condition 08/09 12:00:00 AM EDT [facility] ([facility]) 543661810 Tobacco use Tobacco use Condition 08/09/2020 12:00:00 AM EDT [facility] ([facility]) 300143480 Tobacco use Tobacco use Condition 08/09/2020 12:00:00 AM EDT [facility] ([facility]) [id number] Unspecified anxiety disorder Unspecified anxiety disor daren Condition 08/09/2020 12:00:00 AM EDT [facility] ([facility]) 81443898 Anxiety (finding) Anxiety (finding) Condition 08/09 12:00:00 AM EDT [facility]) 320803698 Tobacco use Tobacco use Condition 08/09/2020 12:00:00 AM EDT [facility]) 37019638 Anxiety (finding) Anxiety (finding) Condition 08/09 12:00:00 AM EDT [facility] ([facility]) 444177963 Unspecified anxiety disorder Unspecified anxiety disor daren Condition 08/09/2020 12:00:00 AM EDT [facility] ([facility]) 75359823 Anxiety (finding) Anxiety (finding) Condition 08/09 12:00:00 AM EDT [facility] ([facility]) 770455203 Tobacco use Tobacco use Condition 08/09/2020 12:00:00 AM EDT [facility]) 939861178 Unspecified anxiety disorder Unspecified anxiety disor daren Condition 08/09/2020 12:00:00 AM EDT [facility] ([facility]) 168571613 Tobacco use Tobacco use Condition 08/09/2020 12:00:00 AM EDT [facility] ([facility]) 40823229 Anxiety (finding) Anxiety (finding) Condition 08/09 12:00:00 AM EDT [facility] ([facility]) 765071914 Unspecified anxiety disorder Unspecified anxiety disor daren Condition 08/09/2020 12:00:00 AM EDT [facility] ([facility]) [id number] Tobacco use Tobacco use Condition 08/09/2020 12:00:00 AM EDT [facility] ([facility]) 10458778 Anxiety (finding) Anxiety (finding) Condition 08/09 12:00:00 AM EDT [facility] ([facility]) 935007047 Unspecified anxiety disorder Unspecified anxiety disor daren Condition 08/09/2020 12:00:00 AM EDT [facility] ([facility]) 946434546 Unspecified anxiety disorder Unspecified anxiety disor daren Condition 08/09/2020 12:00:00 AM EDT [facility] ([facility]) 360018569 Tobacco use Tobacco use Condition 08/09/2020 12:00:00 AM EDT [facility] ([facility]) 84269105 Anxiety (finding) Anxiety (finding) Condition 08/09 12:00:00 AM EDT [facility] ([facility]) 996103036 Tobacco use Tobacco use Condition 08/09/2020 12:00:00 AM EDT [facility] ([facility]) 086135607 Unspecified anxiety disorder Unspecified anxiety disor daren Condition 08/09/2020 12:00:00 AM EDT [facility] ([facility]) 57973557 Anxiety (finding) Anxiety (finding) Condition 08/09 12:00:00 AM EDT [facility] ([facility]) 891148652 Tobacco use Tobacco use Condition 08/09/2020 12:00:00 AM EDT [facility]) 93352573 Anxiety (finding) Anxiety (finding) Condition 08/09 12:00:00 AM EDT [facility] ([facility]) 741013000 Unspecified anxiety disorder Unspecified anxiety disor daren Condition 08/09/2020 12:00:00 AM EDT [facility] ([facility]) N64.59 Other signs and symptoms in breast Sore nipple 01/26/2020 12:22:03 PM EDT [facility] N64.52 Nipple discharge Discharge from right nipple 01/26/2020 12:22:03 PM EDT [facility] [id number] Breast finding Breast Finding Problem 01/26/2020 12:00: 00 AM EDT ESKO ([facility]) [id number] Discharge from nipple Discharge from Nipple Problem 01/26/2020 12:00:00 AM EDT NAVEEN ([facility]) [id number] Breast finding Breast Finding Problem 01/26/2020 12:00: 00 AM EDT ESKO ([facility]) [id number] Discharge from nipple Discharge from Nipple Problem 01/26/2020 12:00:00 AM EDT NAVEEN ([facility]) [id number] Breast finding Breast Finding Problem 01/26/2020 12:00: 00 AM EDT NAVEEN ([facility]) [id number] Discharge from nipple Discharge from Nipple Problem 01/26/2020 12:00:00 AM EDT NAVEEN ([facility]) [id number] Breast finding Breast Finding Problem 01/26/2020 12:00: 00 AM EDT NAVEEN ([facility]) [id number] Discharge from nipple Discharge from Nipple Problem 01/26/2020 12:00:00 AM EDT NAVEEN ([facility]) [id number] Breast finding Breast Finding Problem 01/26/2020 12:00: 00 AM EDT NAVEEN ([facility]) [id number] Discharge from nipple Discharge from Nipple Problem 01/26/2020 12:00:00 AM EDT NAVEEN ([facility]) [id number] Breast finding Breast Finding Problem 01/26/2020 12:00: 00 AM EDT NAVEEN ([facility]) [id number] Discharge from nipple Discharge from Nipple Problem 01/26/2020 12:00:00 AM EDT NAVEEN ([facility]) [id number] Breast finding Breast Finding Problem 01/26/2020 12:00: 00 AM EDT NAVEEN ([facility]) [id number] Discharge from nipple Discharge from Nipple Problem 01/26/2020 12:00:00 AM EDT NAVEEN ([facility]) [id number] Breast finding Breast Finding Problem 01/26/2020 12:00: 00 AM EDT NAVEEN ([facility]) [id number] Discharge from nipple Discharge from Nipple Problem 01/26/2020 12:00:00 AM EDT NAVEEN ([facility]) [id number] Breast finding Breast Finding Problem 01/26/2020 12:00: 00 AM EDT NAVEEN ([facility]) [id number] Discharge from nipple Discharge from Nipple Problem 01/26/2020 12:00:00 AM EDT NAVEEN ([facility]) [id number] Breast finding Breast Finding Problem 01/26/2020 12:00: 00 AM EDT NAVEEN ([facility]) [id number] Discharge from nipple Discharge from Nipple Problem 01/26/2020 12:00:00 AM EDT NAVEEN ([facility]) [id number] Breast finding Breast Finding Problem 01/26/2020 12:00: 00 AM EDT NAVEEN ([facility]) [id number] Discharge from nipple Discharge from Nipple Problem 01/26/2020 12:00:00 AM EDT NAVEEN ([facility]) [id number] Breast finding Breast Finding Problem 01/26/2020 12:00: 00 AM EDT NAVEEN ([facility]) [id number] Discharge from nipple Discharge from Nipple Problem 01/26/2020 12:00:00 AM EDT NAVEEN ([facility]) [id number] Breast finding Breast Finding Problem 01/26/2020 12:00: 00 AM EDT NAVEEN ([facility]) [id number] Discharge from nipple Discharge from Nipple Problem 01/26/2020 12:00:00 AM EDT NAVEEN ([facility]) [id number] Breast finding Breast Finding Problem 01/26/2020 12:00: 00 AM EDT NAVEEN ([facility]) [id number] Discharge from nipple Discharge from Nipple Problem 01/26/2020 12:00:00 AM EDT NAVEEN ([facility]) [id number] Breast finding Breast Finding Problem 01/26/2020 12:00: 00 AM EDT NAVEEN ([facility]) [id number] Discharge from nipple Discharge from Nipple Problem 01/26/2020 12:00:00 AM EDT NAVEEN ([facility]) [id number] Breast finding Breast Finding Problem 01/26/2020 12:00: 00 AM EDT NAVEEN ([facility]) [id number] Discharge from nipple Discharge from Nipple Problem 01/26/2020 12:00:00 AM EDT NAVEEN ([facility]) [id number] Breast finding Breast Finding Problem 01/26/2020 12:00: 00 AM EDT ESKO ([facility]) [id number] Discharge from nipple Discharge from Nipple Problem 01/26/2020 12:00:00 AM EDT NAVEEN ([facility]) Surgeries/Procedures Procedure Description Date Indications Data Source(s) Individual psychotherapy (regime/therapy) 01/05/2021 1 2:00:00 AM EDT [facility] ([facility]) Individual psychotherapy (regime/therapy) 01/05/2021 1 2:00:00 AM EDT [facility]) Evaluation AND/OR management - established patient (procedur e) 12/26/2020 12:00:00 AM EDT [facility] ([facility]) Individual psychotherapy (regime/therapy) 12/21/2020 1 2:00:00 AM EDT [facility]) Individual psychotherapy (regime/therapy) 12/21/2020 1 2:00:00 AM EDT [facility] ([facility]) Individual psychotherapy (regime/therapy) 12/07/2020 1 2:00:00 AM EDT [facility] ([facility]) Individual psychotherapy (regime/therapy) 12/07/2020 1 2:00:00 AM EDT [facility] ([facility]) Individual psychotherapy (regime/therapy) 12/07/2020 1 2:00:00 AM EDT [facility] ([facility]) Individual psychotherapy (regime/therapy) 12/07/2020 1 2:00:00 AM EDT [facility] ([facility]) Individual psychotherapy (regime/therapy) 11/23/2020 1 2:00:00 AM EDT [facility] ([facility]) Individual psychotherapy (regime/therapy) 11/23/2020 1 2:00:00 AM EDT [facility] ([facility]) Individual psychotherapy (regime/therapy) 11/23/2020 1 2:00:00 AM EDT [facility] ([facility]) Individual psychotherapy (regime/therapy) 11/23/2020 1 2:00:00 AM EDT [facility] ([facility]) Individual psychotherapy (regime/therapy) 11/23/2020 1 2:00:00 AM EDT [facility] ([facility]) Individual psychotherapy (regime/therapy) 11/23/2020 1 2:00:00 AM EDT [facility] ([facility]) Evaluation AND/OR management - established patient (procedur e) 11/21/2020 12:00:00 AM EDT [facility] ([facility]) Evaluation AND/OR management - established patient (procedur e) 11/21/2020 12:00:00 AM EDT [facility] ([facility]) Evaluation AND/OR management - established patient (procedur e) 11/21/2020 12:00:00 AM EDT [facility] ([facility]) Viral antigen assay (procedure) 11/20/2020 12:00:00 AM EDT [facility] Individual psychotherapy (regime/therapy) 11/09/2020 1 2:00:00 AM EDT [facility] ([facility]) Individual psychotherapy (regime/therapy) 11/09/2020 1 2:00:00 AM EDT [facility] ([facility]) Individual psychotherapy (regime/therapy) 11/09/2020 1 2:00:00 AM EDT [facility] ([facility]) Individual psychotherapy (regime/therapy) 11/09/2020 1 2:00:00 AM EDT [facility]) Individual psychotherapy (regime/therapy) 11/09/2020 1 2:00:00 AM EDT [facility] ([facility]) Individual psychotherapy (regime/therapy) 11/09/2020 1 2:00:00 AM [facility]) Individual psychotherapy (regime/therapy) 11/09/2020 1 2:00:00 AM EDT [facility] ([facility]) Individual psychotherapy (regime/therapy) 11/09/2020 1 2:00:00 AM EDT [facility] ([facility]) Individual psychotherapy (regime/therapy) 10/26/2020 1 2:00:00 AM EDT [facility] ([facility]) Individual psychotherapy (regime/therapy) 10/26/2020 1 2:00:00 AM EDT [facility]) Individual psychotherapy (regime/therapy) 10/26/2020 1 2:00:00 AM EDT [facility] ([facility]) Individual psychotherapy (regime/therapy) 10/26/2020 1 2:00:00 AM EDT [facility] ([facility]) Individual psychotherapy (regime/therapy) 10/26/2020 1 2:00:00 AM EDT [facility] ([facility]) Individual psychotherapy (regime/therapy) 10/26/2020 1 2:00:00 AM EDT [facility] ([facility]) Individual psychotherapy (regime/therapy) 10/26/2020 1 2:00:00 AM EDT [facility] ([facility]) Individual psychotherapy (regime/therapy) 10/26/2020 1 2:00:00 AM EDT [facility] ([facility]) Individual psychotherapy (regime/therapy) 10/26/2020 1 2:00:00 AM EDT [facility] ([facility]) Individual psychotherapy (regime/therapy) 10/26/2020 1 2:00:00 AM EDT [facility]) Initial psychiatric evaluation (procedure) 10/17/2020 12:00:00 AM EDT [facility]) Initial psychiatric evaluation (procedure) 10/17/2020 12:00:00 AM EDT [facility] ([facility]) Initial psychiatric evaluation (procedure) 10/17/2020 12:00:00 AM EDT [facility] ([facility]) Initial psychiatric evaluation (procedure) 10/17/2020 12:00:00 AM EDT [facility] ([facility]) Initial psychiatric evaluation (procedure) 10/17/2020 12:00:00 AM EDT [facility] ([facility]) Initial psychiatric evaluation (procedure) 10/17/2020 12:00:00 AM EDT [facility] ([facility]) Individual psychotherapy (regime/therapy) 10/12/2020 1 2:00:00 AM EDT [facility] ([facility]) Individual psychotherapy (regime/therapy) 10/12/2020 1 2:00:00 AM EDT [facility] ([facility]) Individual psychotherapy (regime/therapy) 10/12/2020 1 2:00:00 AM EDT [facility] ([facility]) Individual psychotherapy (regime/therapy) 10/12/2020 1 2:00:00 AM EDT [facility] ([facility]) Individual psychotherapy (regime/therapy) 10/12/2020 1 2:00:00 AM EDT [facility] ([facility]) Individual psychotherapy (regime/therapy) 10/12/2020 1 2:00:00 AM EDT [facility] ([facility]) Individual psychotherapy (regime/therapy) 10/12/2020 1 2:00:00 AM EDT [facility] ([facility]) Individual psychotherapy (regime/therapy) 09/19/2020 1 2:00:00 AM EDT [facility] ([facility]) Individual psychotherapy (regime/therapy) 09/19/2020 1 2:00:00 AM EDT [facility] ([facility]) Individual psychotherapy (regime/therapy) 09/19/2020 1 2:00:00 AM EDT [facility] ([facility]) Individual psychotherapy (regime/therapy) 09/19/2020 1 2:00:00 AM EDT [facility] ([facility]) Individual psychotherapy (regime/therapy) 09/19/2020 1 2:00:00 AM EDT [facility] ([facility]) Individual psychotherapy (regime/therapy) 09/19/2020 1 2:00:00 AM EDT [facility] ([facility]) Individual psychotherapy (regime/therapy) 09/19/2020 1 2:00:00 AM EDT [facility] ([facility]) Individual psychotherapy (regime/therapy) 09/19/2020 1 2:00:00 AM EDT [facility] ([facility]) Individual psychotherapy (regime/therapy) 09/19/2020 1 2:00:00 AM EDT [facility] ([facility]) Individual psychotherapy (regime/therapy) 09/19/2020 1 2:00:00 AM EDT [facility] ([facility]) Individual psychotherapy (regime/therapy) 09/19/2020 1 2:00:00 AM EDT [facility] ([facility]) Individual psychotherapy (regime/therapy) 09/19/2020 1 2:00:00 AM EDT [facility] ([facility]) Individual psychotherapy (regime/therapy) 09/19/2020 1 2:00:00 AM EDT [facility] ([facility]) Individual psychotherapy (regime/therapy) 09/19/2020 1 2:00:00 AM EDT [facility] ([facility]) Individual psychotherapy (regime/therapy) 09/19/2020 1 2:00:00 AM EDT [facility] ([facility]) Individual psychotherapy (regime/therapy) 09/19/2020 1 2:00:00 AM EDT [facility] ([facility]) Individual psychotherapy (regime/therapy) 09/05/2020 1 2:00:00 AM EDT [facility] ([facility]) Individual psychotherapy (regime/therapy) 09/05/2020 1 2:00:00 AM EDT [facility] ([facility]) Individual psychotherapy (regime/therapy) 09/05/2020 1 2:00:00 AM EDT [facility] ([facility]) Individual psychotherapy (regime/therapy) 09/05/2020 1 2:00:00 AM EDT [facility] ([facility]) Individual psychotherapy (regime/therapy) 09/05/2020 1 2:00:00 AM EDT [facility] ([facility]) Individual psychotherapy (regime/therapy) 09/05/2020 1 2:00:00 AM EDT [facility] ([facility]) Individual psychotherapy (regime/therapy) 09/05/2020 1 2:00:00 AM EDT [facility]) Individual psychotherapy (regime/therapy) 09/05/2020 1 2:00:00 AM EDT [facility] ([facility]) Individual psychotherapy (regime/therapy) 09/05/2020 1 2:00:00 AM EDT [facility] ([facility]) Individual psychotherapy (regime/therapy) 09/05/2020 1 2:00:00 AM EDT [facility]) Individual psychotherapy (regime/therapy) 09/05/2020 1 2:00:00 AM EDT [facility] ([facility]) Individual psychotherapy (regime/therapy) 09/05/2020 1 2:00:00 AM EDT [facility] ([facility]) Individual psychotherapy (regime/therapy) 09/05/2020 1 2:00:00 AM EDT [facility] ([facility]) Individual psychotherapy (regime/therapy) 09/05/2020 1 2:00:00 AM EDT [facility] ([facility]) Individual psychotherapy (regime/therapy) 09/05/2020 1 2:00:00 AM EDT [facility] ([facility]) Individual psychotherapy (regime/therapy) 09/05/2020 1 2:00:00 AM EDT [facility] ([facility]) Individual psychotherapy (regime/therapy) 09/05/2020 1 2:00:00 AM EDT [facility] ([facility]) Individual psychotherapy (regime/therapy) 09/05/2020 1 2:00:00 AM EDT [facility] ([facility]) Chlamydia/Neisseria (PCR) 09/01/2020 12:00:00 AM EDT [facility] Individual psychotherapy (regime/therapy) 08/29/2020 1 2:00:00 AM EDT [facility] ([facility]) Individual psychotherapy (regime/therapy) 08/29/2020 1 2:00:00 AM EDT [facility] ([facility]) Individual psychotherapy (regime/therapy) 08/29/2020 1 2:00:00 AM EDT [facility] ([facility]) Individual psychotherapy (regime/therapy) 08/29/2020 1 2:00:00 AM EDT [facility] ([facility]) Individual psychotherapy (regime/therapy) 08/29/2020 1 2:00:00 AM EDT [facility] ([facility]) Individual psychotherapy (regime/therapy) 08/29/2020 1 2:00:00 AM EDT [facility] ([facility]) Individual psychotherapy (regime/therapy) 08/29/2020 1 2:00:00 AM EDT [facility] ([facility]) Individual psychotherapy (regime/therapy) 08/29/2020 1 2:00:00 AM EDT [facility] ([facility]) Individual psychotherapy (regime/therapy) 08/29/2020 1 2:00:00 AM EDT [facility] ([facility]) Individual psychotherapy (regime/therapy) 08/29/2020 1 2:00:00 AM EDT [facility] ([facility]) Individual psychotherapy (regime/therapy) 08/29/2020 1 2:00:00 AM EDT [facility] ([facility]) Individual psychotherapy (regime/therapy) 08/29/2020 1 2:00:00 AM EDT [facility] ([facility]) Individual psychotherapy (regime/therapy) 08/29/2020 1 2:00:00 AM EDT [facility] ([facility]) Individual psychotherapy (regime/therapy) 08/29/2020 1 2:00:00 AM EDT [facility] ([facility]) Individual psychotherapy (regime/therapy) 08/29/2020 1 2:00:00 AM EDT [facility] ([facility]) Individual psychotherapy (regime/therapy) 08/29/2020 1 2:00:00 AM EDT [facility] ([facility]) Individual psychotherapy (regime/therapy) 08/29/2020 1 2:00:00 AM EDT [facility] ([facility]) Individual psychotherapy (regime/therapy) 08/29/2020 1 2:00:00 AM EDT [facility] ([facility]) Individual psychotherapy (regime/therapy) 08/29/2020 1 2:00:00 AM EDT [facility] ([facility]) Individual psychotherapy (regime/therapy) 08/29/2020 1 2:00:00 AM EDT [facility] ([facility]) Individual psychotherapy (regime/therapy) 08/22/2020 1 2:00:00 AM EDT [facility] ([facility]) Individual psychotherapy (regime/therapy) 08/22/2020 1 2:00:00 AM EDT [facility] ([facility]) Individual psychotherapy (regime/therapy) 08/22/2020 1 2:00:00 AM EDT [facility]) Individual psychotherapy (regime/therapy) 08/22/2020 1 2:00:00 AM EDT [facility] ([facility]) Individual psychotherapy (regime/therapy) 08/22/2020 1 2:00:00 AM EDT [facility] ([facility]) Individual psychotherapy (regime/therapy) 08/22/2020 1 2:00:00 AM EDT [facility] ([facility]) Individual psychotherapy (regime/therapy) 08/22/2020 1 2:00:00 AM EDT [facility] ([facility]) Individual psychotherapy (regime/therapy) 08/22/2020 1 2:00:00 AM EDT [facility] ([facility]) Individual psychotherapy (regime/therapy) 08/22/2020 1 2:00:00 AM EDT [facility] ([facility]) Individual psychotherapy (regime/therapy) 08/22/2020 1 2:00:00 AM EDT [facility] ([facility]) Individual psychotherapy (regime/therapy) 08/22/2020 1 2:00:00 AM EDT [facility] ([facility]) Individual psychotherapy (regime/therapy) 08/22/2020 1 2:00:00 AM EDT [facility] ([facility]) Individual psychotherapy (regime/therapy) 08/22/2020 1 2:00:00 AM EDT [facility] ([facility]) Individual psychotherapy (regime/therapy) 08/22/2020 1 2:00:00 AM EDT [facility]) Individual psychotherapy (regime/therapy) 08/22/2020 1 2:00:00 AM EDT [facility] ([facility]) Individual psychotherapy (regime/therapy) 08/22/2020 1 2:00:00 AM EDT [facility] ([facility]) Individual psychotherapy (regime/therapy) 08/22/2020 1 2:00:00 AM EDT [facility] ([facility]) Individual psychotherapy (regime/therapy) 08/22/2020 1 2:00:00 AM EDT [facility] ([facility]) Individual psychotherapy (regime/therapy) 08/22/2020 1 2:00:00 AM EDT [facility] ([facility]) Individual psychotherapy (regime/therapy) 08/22/2020 1 2:00:00 AM EDT [facility] ([facility]) Diagnostic psychiatric interview (procedure) 1 12:00:00 AM EDT [facility] ([facility]) Diagnostic psychiatric interview (procedure) 12:00:00 AM EDT [facility] ([facility]) Diagnostic psychiatric interview (procedure) 12:00:00 AM EDT [facility] ([facility]) Diagnostic psychiatric interview (procedure) 1 12:00:00 AM EDT [facility] ([facility]) Diagnostic psychiatric interview (procedure) 1 12:00:00 AM EDT [facility] ([facility]) Diagnostic psychiatric interview (procedure) 12:00:00 AM EDT [facility] ([facility]) Diagnostic psychiatric interview (procedure) 12:00:00 AM EDT [facility] ([facility]) Diagnostic psychiatric interview (procedure) 12:00:00 AM EDT [facility] ([facility]) Diagnostic psychiatric interview (procedure) 04/28/202 1 12:00:00 AM EDT [facility] ([facility]) Diagnostic psychiatric interview (procedure) 1 12:00:00 AM EDT [facility] ([facility]) Diagnostic psychiatric interview (procedure) 1 12:00:00 AM EDT [facility]) Results ID Date Data Source [id number] 02/08/2021 09:44:00 AM EDT [facility] [facility] Patient Name: SHANNAN WADE DO B: 1995 Sex: F Pt Unit #: [id number] Location:[facility] Provider: Visit Date/Time: 02/08/21 Primary Insurance: MEDICARE UPSTATE Secondary Insurance: MEDICAID [facility] 2ND R Intake Vital Signs 02/08/21 09:44 Current Height 5 ft 1.5 in Current Weight 161 lb Weight Measurement Method Standing Scale BMI 29.9 BP 110/66 Blood Pressure Location Lt brachial Position Sitting Respiration 18 Pulse 84 Pulse Strength Normal Pulse Source Pulse Oximeter Temp 97.4 F L Temp Source Temporal Artery Scan Pulse Oximetry (%) 98 Oxygen Delivery Method room air Intake- Medicare Annual Visit Reasons: Medicare Annual Wellness subsequent Nurse Note: Pt is her for her MAW exam. She states she is having trouble sleeping and that Johnny from has beenmessing with her meds, She did not know if you could help her with that or if she should go see him.She sees TERRITORY SALES PROFESSIONAL downstairs but she wanted you to know that she is more irritable a week prior to her menses. Insulation Manager Required: No Accompanied by: Self / Same as Patient Is patient in pain?: Yes (back, knees) Allergies No Known Drug Allergies [From No known Food or Drug Allergies] Allergy (Verified 12/29/20 08:12) No Known Food Allergies [From No known Food or Drug Allergies] Allergy (Verified 12/29/20 08:12) Feel stressed/tense/nervous/anxious/difficulty sleeping: very much Medications - Last Reconciled 02/08/21 by Florina Mercedes NP bupropion HCl 150 mg PO QDAY cholecalciferol (vitamin D3) 125 mcg PO QDAY copper (ParaGard T 380A) intrauterine gabapentin 600 mg PO HS hydroxyzine HCl 25 mg PO DAILY magnesium oxide 250 mg PO QDAY quetiapine (Seroquel) 100 mg PO ONCE HS sertraline 50 mg PO QDAY trazodone 25 mg PO QDAY Fall Risk History of falls: No Ambulatory Aid:: None Gait/Transferring:: Normal Medications:: Psychotropics HIV testing Offer: Yes Requirement for HIV testing offer been met?: Declines today. Pretest education received and acknowledged SBIRT Annual Questionnaire Are you currently in recovery for alcohol or substance use?: No How many times in the past year have you had 4 or more drinks in a day?: None How many times in the past year have you used a recreational drug or used a prescription medication for nonmedical reasons?: None Coronavirus Screening Screening Are you currently positive or on isolation for COVID ?: No Do you have any NEW signs of one or more of the following?: no symptoms Do you have NEW signs of at least two of the following?: no symptoms PFSH Medical History Adopted Anxiety Depression Dyspareunia Foot pain 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 Brother No problems noted. 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 [employer] pets and animals: Yes pets and animals: cat(s) Hx Recent Travel (where): No sexually active: Yes how many partners: 10 do you think of yourself as: straight/heterosexual current gender identity: female Smoking Status: Former smoker Tobacco: How many years used: 18 alcohol intake: current alcohol intake frequency: holidays/special occasions only substance use type: former substance user Date of last use: february 2020, marijuana, crack/cocaine, opiates, painkillers and methamphetamine counseling given: No counseling provided: treatment program seatbelt use: always Female Reproductive History Menstrual Age of Menarche: 10 Duration of menses: 6-7 days control method: copper IUCD Total pregnancies: 1 Ab induced: 0 Ab spontaneous: 0 Ectopics: 0 Medicare Annual Wellness Type Of Examation Type of Exam: Subsequent Wellness Exam EKG EKG Performed: No Medication list Medications bupropion HCl 150 mg PO QDAY cholecalciferol (vitamin D3) 125 mcg PO QDAY copper (ParaGard T 380A) intrauterine gabapentin 600 mg PO HS hydroxyzine HCl 25 mg PO DAILY magnesium oxide 250 mg PO QDAY quetiapine (Seroquel) 100 mg PO ONCE HS sertraline 50 mg PO QDAY trazodone 25 mg PO QDAY Allergies Allergies No Known Drug Allergies [From No known Food or Drug Allergies] Allergy (Verified 12/29/20 08:12) No Known Food Allergies [From No known Food or Drug Allergies] Allergy (Verified 12/29/20 08:12) Current Diet Current diet: regular PHQ-2/9 Over the last 2 weeks, how often have you been bothered by any of the following problems? 1. Little interest or pleasure in doing things: more than half the days 2. Feeling down, depressed, or hopeless: more than half the days Total score: 4 If score is 2 greater, continue 3. Trouble falling or staying asleep, or sleeping too much: nearly every day 4. Feeling tired or having little energy: nearly every day 5. Poor appetite or overeating: more than half the days 6. Feeling bad about yourself - or that you are a failure or have let yourself and your family down:several days 7. Trouble concentrating on things, such as reading the newspaper or watching television: nearly every day 8. Moving or speaking so slowly that other people could have noticed? - Or the opposite - being so fidgety or restless that you have been moving around a lot more than usual: several days 9. Thoughts that you would be better off or of hurting yourself in some way: not at all Total score: 17 If you checked off any problems, how difficult have these problems made it for you to do your work, take care of things at home, or get along with other people?: extremely difficult Source: Developed by Drs. Earnest Candelario, Eliza Tucker, Chris Cummings and colleagues, with an educational emiliano from [email or web address]. Vision [place] [facility] - right eye: 20/20 [facility] - left eye: 20/20 [facility] - bilateral eyes: 20/20 Functional Assessment Bathing: Independent Dressing: Independent Toileting: Independent Transferring: Independent Continence: Independent Feeding: Independent Total Score: 6 Home Safety Home Safety: Reports Lighting: Adequate, [place]: No throw rugs and Stairs: Handrail available; DeniesBathroom: Grab bars Hearing Hearing Left Ear: Normal Hearing Right Ear: Normal Hearing test method: whispered voice IADL Assessment Functional abilities: Up Go test, pt steady, Up Go test, within 30 sec, Pt independent w/phone,Pt independent w/transportation, Pt independent w/shopping, Pt independent w/housework, Pt independent w/meal preparation, Pt independent w/laundry, Pt independent w/medication and Pt independent w/finances Cognitive Evaluation Oriented to the date:: Yes Oriented to time:: Yes Oriented to place:: Yes Mood: grossly normal Affect: Normal Judgement: normal Needs caregiver for assistance: No 3 item recall: 1 ( TABLE) Advanced Care Planning Healthcare Proxy: No Does Patient have a DNR?: No Does patient have a Living Will?: No HPI Additional HPI HPI Details: HERE FOR MEDICARE ANNUAL WELLNESS DOING WELL HAD COVID AND FLU SHOTS Review of Systems Const All systems reviewed are unremarkable except as noted in HPI and below Denies chills, Denies fatigue, Denies fever(s), Denies headache(s) and Reports weight gain Details: NOTICED WEIGHT GAIN WHEN TRAZADONE DOSE WAS DECREASED. Eyes Denies blurry vision, Denies diplopia and Denies itchy eyes ENT Denies dizziness, Denies headache(s), Denies nasal congestion, Denies nasal discharge, Denies sinus pain and Denies sore throat Card Denies chest pain and Denies dyspnea Resp Denies cough, Denies dyspnea and Denies wheezing GI Denies constipation, Denies heartburn, Denies diarrhea, Denies nausea and Denies vomiting Genitourinary: Denies dysuria, urinary frequency or urinary urgency Musc Reports back pain, Reports arthralgias, Denies limited range of motion, Reports muscle cramps and Reports muscle weakness Details: OCCASIONAL MUSCLE CRAMPING IN CALF. BILATERAL KNEES, ANKLES AND BACK PAIN. Skin/Breast Denies lesions and Denies rash Neuro Denies dizziness, Denies headache(s) and Denies paresthesias Psych Reports anxiety and Reports depression Details: SEES COUNSELOR EVERY 2 WEEKS. RECENTLY HAD MEDS CHANGED. RENETTA SCORE: 20 PHQ-9 SCORE: 17 Endo Denies fatigue, Reports polydipsia and Denies polyuria Details: INCREASED THIRST AT NIGHT. "FEELS LIKE DRY MOUTH" Rishi/Lymph Denies easy bleeding, Denies easy bruising and Denies lymphadenopathy Aller/Immun Denies itchy eyes, Denies seasonal rhinorrhea and Denies wheezing Exam Const General: cooperative, healthy appearing and comfortable Nutritional Appearance: average body habitus Orientation: alert and oriented x3 Neck Neck: normal visual inspection, full ROM and no lymphadenopathy Neck mass: No Thyroid: thyroid normal Carotids: normal carotid upstroke Resp Effort Inspection: normal respiratory effort and able to speak in complete sentences Auscultation: clear to auscultation bilaterally Cardio Jugular venous pressure: no JVD Rate: regular rate Rhythm: regular rhythm Heart Sounds: S1 normal and S2 normal General: No CVA tenderness Musc Cervical Spine: cervical spinal tenderness Thoracic/Lumbar Spine: scoliosis and thoracic spinal tenderness Other: DEFECT HAS NO LEFT HAND Skin Lesions: no lesions Rashes: no rashes Neuro General: patient alert and patient oriented x3 Cognition: normal cognition Speech: speech normal Gait: normal gait Motor: muscle tone normal throughout and strength 5/5 throughout Extrem General: normal to inspection, full ROM, no joint enlargement and no pedal edema Psych Appearance: grossly normal Mental Status: mental status grossly normal Speech and Movement: speech and movement normal Mood: congruent mood Affect: normal affect Attitude: cooperative Thought Process: normal Thought Content: normal Insight: insight good Judgment: judgment good Quality Reporting Depression/Bipolar (159/160/161/169/177) Total score: 17 Assessment Plan Assessment Plan (1) Medicare annual wellness visit, subsequent: Code(s): Z00.00 - Encounter for general adult medical examination without abnormal findings Plan: DISCUSSED LIFESTYLE MODIFICATIONS. IMMUNIZATIONS UTD RTC 6 MONTHS Coding Level of Care Code Established Pt Medicare AWV subsequent Patient Type Established History Comprehensive Exam Comprehensive Medical Decision Making High Complexity Diagnoses Medicare annual wellness visit, subsequent Z.00 Additional Codes Functional Assessment (1170F) Time Spent (min) 40 RENETTA-7 RENETTA-7 Feeling nervous, anxious, or on edge: 3 = Nearly every day Not being able to stop or control worryin = Nearly every day Worrying too much about different things: 3 = Nearly every day Trouble relaxin = Nearly every day Being so restless that it is hard to sit still: 2 = More than half the days Becoming easily annoyed or irritable: 3 = Nearly every day Feeling afraid as if something awful might happen: 3 = Nearly every day Total RENETTA-7 score (0-4 normal; 5-9 mild; 10-14 moderate; 15-21 severe): 20 Source: Developed by Drs. Earnest Candelario, Eliza Tucker, Chris Cummings and colleagues, with an educational emiliano from [email or web address]. <Electronically signed by Florina Mercedes NP> 02/08/21 1030 Name Value Range Interpretation Code Description Data Alysa rce(s) Supporting Document(s) ID Date Data Source [id number] 01/03/2021 04:38:00 PM EDT [facility] <0.90 Index Interpretation ----- < 0.90 Negative 0.90-1.09 Equivocal > 1.09 PositiveAs recommended by the Food and Drug Administration(FDA), all samples with positive or equivocalresults in a Borrelia burgdorferi antibody screenwill be tested using a blot method. Positive orequivocal screening test results should not beinterpreted as truly positive until verified as suchusing a supplemental assay (e.g., B. burgdorferi blot).The screening test and/or blot for B. burgdorferiantibodies may be falsely negative in early stagesof Lyme disease, including the period when erythemamigrans is apparent.THIS TEST WAS PERFORMED AT:[facility] [id number] CRUZ Reportable Result Name Value Range Interpretation Code Description Data Alysa rce(s) Supporting Document(s) Erythrocyte sedimentation rate by Westergren method 1 mm/hr 0-20 N [facility] @Reenter manual test result: 1@by Jessy Flores at 01/03/21 1638. ID Date Data Source [id number] 01/03/2021 05:55:00 PM [facility] <0.90 Index Interpretation ----- < 0.90 Negative 0.90-1.09 Equivocal > 1.09 PositiveAs recommended by the Food and Drug Administration(FDA), all samples with positive or equivocalresults in a Borrelia burgdorferi antibody screenwill be tested using a blot method. Positive orequivocal screening test results should not beinterpreted as truly positive until verified as suchusing a supplemental assay (e.g., B. burgdorferi blot).The screening test and/or blot for B. burgdorferiantibodies may be falsely negative in early stagesof Lyme disease, including the period when erythemamigrans is apparent.THIS TEST WAS PERFORMED AT:[facility] [id number] CRUZ Reportable Result Name Value Range Interpretation Code Description Data Alysa rce(s) Supporting Document(s) Vitamin B12 634 pg/mL 211-911 N [facility] ID Date Data Source [id number] 01/03/2021 06:06:00 PM [facility] <0.90 Index Interpretation ----- < 0.90 Negative 0.90-1.09 Equivocal > 1.09 PositiveAs recommended by the Food and Drug Administration(FDA), all samples with positive or equivocalresults in a Borrelia burgdorferi antibody screenwill be tested using a blot method. Positive orequivocal screening test results should not beinterpreted as truly positive until verified as suchusing a supplemental assay (e.g., B. burgdorferi blot).The screening test and/or blot for B. burgdorferiantibodies may be falsely negative in early stagesof Lyme disease, including the period when erythemamigrans is apparent.THIS TEST WAS PERFORMED AT:[facility] [id number] CRUZ Reportable Result Name Value Range Interpretation Code Description Data Alysa rce(s) Supporting Document(s) Folate [Mass/volume] in Serum or Plasma 30.5 ng/mL [facility] @Instrument will autodilute FOLATE INTERPRETATION NORMAL: GREATER THAN 5.38 INDETERMINATE: 3.38 - 5.38 DEFICIENT: LESS THAN 3.37 ID Date Data Source [id number] 01/11/2021 06:51:00 AM EDT [facility] <0.90 Index Interpretation ----- < 0.90 Negative 0.90-1.09 Equivocal > 1.09 PositiveAs recommended by the Food and Drug Administration(FDA), all samples with positive or equivocalresults in a Borrelia burgdorferi antibody screenwill be tested using a blot method. Positive orequivocal screening test results should not beinterpreted as truly positive until verified as suchusing a supplemental assay (e.g., B. burgdorferi blot).The screening test and/or blot for B. burgdorferiantibodies may be falsely negative in early stagesof Lyme disease, including the period when erythemamigrans is apparent.THIS TEST WAS PERFORMED AT:[facility] [id number] CRUZ Reportable Result Name Value Range Interpretation Code Description Data Alysa rce(s) Supporting Document(s) Lupus anticoagulant two screening tests W Reflex [interpretation] [facility] A Lupus Anticoagulant is not detected.Re ference Range: Not DetectedFor additional information, please refer [email or web address](This link is being provided for informational/educational purposes only.)This interpretation is based on the following testresults. aPTT.lupus sensitive (LA screen) 34 sec <=40 [facility] dRVVT (LA screen) 37 sec <=45 [facility] Mixing studies [Interpretation] in Platelet poor plasma Narr ative Not Indicated [facility] THIS TEST WAS PERFORMED AT:[employer]/[id number] [place] [address]DXITXSGSARAH VARNER MD,PHD [facility] PHASE [facility]OSP [facility] ID Date Data Source [id number] 01/03/2021 06:06:00 PM [facility] <0.90 Index Interpretation ----- < 0.90 Negative 0.90-1.09 Equivocal > 1.09 PositiveAs recommended by the Food and Drug Administration(FDA), all samples with positive or equivocalresults in a Borrelia burgdorferi antibody screenwill be tested using a blot method. Positive orequivocal screening test results should not beinterpreted as truly positive until verified as suchusing a supplemental assay (e.g., B. burgdorferi blot).The screening test and/or blot for B. burgdorferiantibodies may be falsely negative in early stagesof Lyme disease, including the period when erythemamigrans is apparent.THIS TEST WAS PERFORMED AT:[facility] [id number] CRUZ Reportable Result Name Value Range Interpretation Code Description Data Alysa rce(s) Supporting Document(s) Thyrotropin [Units/volume] in Serum or Plasma by Detec tion limit <= 0.005 mIU/L 1.16 u[iU]/mL 0.35[facility]5.50 [facility] Date Data Source [id number] 01/11/2021 06:51:00 AM [facility] <0.90 Index Interpretation ----- < 0.90 Negative 0.90-1.09 Equivocal > 1.09 PositiveAs recommended by the Food and Drug Administration(FDA), all samples with positive or equivocalresults in a Borrelia burgdorferi antibody screenwill be tested using a blot method. Positive orequivocal screening test results should not beinterpreted as truly positive until verified as suchusing a supplemental assay (e.g., B. burgdorferi blot).The screening test and/or blot for B. burgdorferiantibodies may be falsely negative in early stagesof Lyme disease, including the period when erythemamigrans is apparent.THIS TEST WAS PERFORMED AT:[facility] [id number] CRUZ Reportable Result Name Value Range Interpretation Code Description Data Alysa rce(s) Supporting Document(s) Borrelia burgdorferi Ab [Units/volume] in Serum by Immunoassay <0.9 0 index [facility] Index Interpretation ----- < 0.90 Negative 0.90-1.09 Equivocal > 1.09 PositiveAs recommended by the Food and Drug Administration(FDA), all samples with positive or equivocalresults in a Borrelia burgdorferi antibody screenwill be tested using a blot method. Positive orequivocal screening test results should not beinterpreted as truly positive until verified as suchusing a supplemental assay (e.g., B. burgdorferi blot).The screening test and/or blot f or B. burgdorferiantibodies may be falsely negative in early stagesof Lyme disease, including the period when erythemamigrans is apparent.THIS TEST WAS PERFORMED AT:[facility] [id number] MERATI,MD ID Date Data Source [id number] 01/03/2021 06:06:00 PM EDT [facility] <0.90 Index Interpretation ----- < 0.90 Negative 0.90-1.09 Equivocal > 1.09 PositiveAs recommended by the Food and Drug Administration(FDA), all samples with positive or equivocalresults in a Borrelia burgdorferi antibody screenwill be tested using a blot method. Positive orequivocal screening test results should not beinterpreted as truly positive until verified as suchusing a supplemental assay (e.g., B. burgdorferi blot).The screening test and/or blot for B. burgdorferiantibodies may be falsely negative in early stagesof Lyme disease, including the period when erythemamigrans is apparent.THIS TEST WAS PERFORMED AT:[facility] [address]WIPNUE MERATI,MDNo Reportable Result Name Value Range Interpretation Code Description Data Alysa rce(s) Supporting Document(s) Rheumatoid factor [Units/volume] in Serum by Nephelometry Le ss Than 10.0 0.0-14.0 N [facility] ID Date Data Source [id number] 01/11/2021 06:51:00 AM EDT [facility] <0.90 Index Interpretation ----- < 0.90 Negative 0.90-1.09 Equivocal > 1.09 PositiveAs recommended by the Food and Drug Administration(FDA), all samples with positive or equivocalresults in a Borrelia burgdorferi antibody screenwill be tested using a blot method. Positive orequivocal screening test results should not beinterpreted as truly positive until verified as suchusing a supplemental assay (e.g., B. burgdorferi blot).The screening test and/or blot for B. burgdorferiantibodies may be falsely negative in early stagesof Lyme disease, including the period when erythemamigrans is apparent.THIS TEST WAS PERFORMED AT:[facility] [id number] MERATI,MDNo Reportable Result Name Value Range Interpretation Code Description Data Alysa rce(s) Supporting Document(s) Cyclic citrullinated peptide IgG Ab [Units/volume] in Serum or Plasma <16 UNITS [facility] Reference RangeNegative: <20W eak Positive: 20-39Moderate Positive: 40-59Strong Positive: >59THIS TEST WAS PERFORMED AT:[facility] [address]MARCY WATTS MD ID Date Data Source [id number] 01/03/2021 02:44:00 PM EDT [facility] Patient Name: SHANNAN WADE DO B: 1995 Sex: F Pt Unit #: [id number] Location:[facility] Provider: Visit Date/Time: 01/03/21 Primary Insurance: MEDICARE [employer] Secondary Insurance: [facility] R Intake Vital Signs 01/03/21 14:47 Current Height 5 ft 1.5 in Current Weight 157 lb Weight Measurement Method Standing Scale BMI 29.2 BP 128/80 Blood Pressure Location Rt brachial Position Sitting Respiration 18 Pulse 96 Pulse Strength Normal Pulse Source Pulse Oximeter Pulse Oximetry (%) 98 Oxygen Delivery Method room air Intake Visit Reasons: Pain Nurse Note: PT STATES BOTH KNEES, ANKLES AND HER BACK ARE PAINFUL. HEADACHES OFF AND ON. FLU SHOT OFFERED AND ACCEPTED Is patient in pain?: Yes (BACK) Pain scale (1-10): 7 Allergies No Known Drug Allergies [From No known Food or Drug Allergies] All ergy (Verified 12/29/20 08:12) No Known Food Allergies [From No known Food or Drug Allergies] Allergy (Verified 12/29/20 08:12) Medications - Last Reconciled 01/03/21 by Florina Mercedes NP bupropion HCl 75 mg PO QDAY cholecalciferol (vitamin D3) 125 mcg PO QDAY copper (ParaGard T 380A) intrauterine gabapentin 600 mg PO HS hydroxyzine HCl 25 mg PO DAILY quetiapine (Seroquel) 100 mg PO ONCE HS sertraline 100 mg PO QDAY trazodone 25 mg PO QDAY Fall Risk History of falls: No Ambulatory Aid:: None Gait/Transferring:: Normal Medications:: Psychotropics HIV Testing Offer - ages 13-64 Requirement for HIV testing offer been met?: Declines today. Pretest education received and acknowledged Coronavirus Screening Screening Are you currently positive or on isolation for COVID ?: No Do you have any NEW signs of one or more of the following?: no symptoms Do you have NEW signs of at least two of the following?: no symptoms HPI Additional HPI HPI Details: PT H ERE FOR PAIN IN BILATERAL ANKLES, KNEES, AND BACK. PT STATES IS PAIN WORSE AT NIGHT AND IMPROVESAS THE DAY GOES ON. PT REPORTS CHRONIC BACK PAIN, WORSE OVER THE PAST FEW WEEKS. STARTED FEELING SWELLING IN ANKLES MORE AT NIGHT TIME. STATES SHE WILL OFTEN FEEL A TINGLING SENSATION IN BILATERAL FEET AND ANKLES. STATES ON HER WORSE DAYS SHE IS TAKING IBUPROFEN 1000MG TWICE A DAY, BUT FEELS IT HASN'T BEEN HELPING. TRIED PHYSICAL THERAPY FOR THE BACK PAIN A FEW MONTHS AGO AND FELT THAT IT HELPED SOME, BUT WASN'T ABLE TO MAINTAIN A ROUTINE. Pain Management History of Present Illness Associated symptoms: [facility] Anxiety Depression Dyspareunia Foot pain 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 Brother No problems noted. Social History Does the Patient have a Healthcare Proxy: No Does Patient have a DNR?: No Does Patient have a Living Will?: No adopted: Yes caregiver/support person: Yes household members: none housing: apartment marital status: Single lives independently: Yes highest education level completed: high school graduate service: No current occupational status: employed current occupation: [employer] pets and animals: Yes pets and animals: cat(s) Hx Recent Travel (where): No sexually active: Yes how many partners: 10 do you think of yourself as: straight/heterosexual current gender identity: female Smoking Status: Former smoker Tobacco: How many years used: 18 alcohol intake: current alcohol intake frequency: holiday s/special occasions only substance use type: former substance user Date of last use: february 2020, marijuana, crack/cocaine, opiates, painkillers and methamphetamine counseling given: No counseling provided: treatment program seatbelt use: always Female Reproductive History Menstrual Age of Menarche: 10 Duration of menses: 6-7 days control method: copper IUCD Total pregnancies: 1 Ab induced: 0 Ab spontaneous: 0 Ectopics: 0 Review of Systems Const Denies chills, Denies fatigue, Denies fever(s), Denies headache(s) and Reports weight gain Details: NOTICED WEIGHT GAIN WHEN TRAZADONE DOSE WAS DECREASED. Eyes Denies blurry vision, Denies diplopia and Denies itchy eyes ENT Denies dizziness, Denies headache(s), Denies nasal congestion, Denies nasal discharge, Denies sinus pain and Denies sore throat Card Denies chest pain and Denies dyspnea Resp Denies cough, Denies dyspnea and Denies wheezing GI Denies constipation, Denies heartburn, Denies diarrhea, Denies nausea and Denies vomiting Genitourinary: Denies dysuria, urinary frequency or urinary urgency Musc Reports back pain, Reports arthralgias, Denies limited range of motion, Reports muscle cramps and Reports muscle weakness Details: OCCASIONAL MUSCLE CRAMPING IN CALF. BILATERAL KNEES, ANKLES AND BACK PAIN. Skin/Breast Denies lesions and Denies rash Neuro Denies dizziness, Denies headache(s) and Reports paresthesias Details: OCCASIONAL TINGLING IN BOTH FEET/ANKLES Psych Reports anxiety and Reports depression Details: CONTROLLED WITH MEDICATION. SEES COUNSELOR EVERY 2 WEEKS. Endo Denies fatigue, Reports polydipsia and Denies polyuria Details: INCREASED THIRST AT NIGHT. "FEELS LIKE DRY MOUTH" Rishi/Lymph Denies easy bleeding, Denies easy bruising and Denies lymphadenopathy Aller/Immun Denies itchy eyes, Denies seasonal rhinorrhea and Denies wheezing Exam Const General: cooperative, healthy appearing and comfortable Nutritional Appearance: average body habitus Orientation: alert and oriented x3 Neck Neck: normal visual inspection, full ROM and no lymphadenopathy Neck mass: No Thyroid: thyroid normal Carotids: normal carotid upstroke Resp Effort Inspection: normal respiratory effort and able to speak in complete sentences Auscultation: clear to auscultation bilaterally Cardio Jugular venous pressure: no JVD Rate: regular rate Rhythm: regular rhythm Heart Sounds: S1 normal and S2 normal General: No CVA tenderness Musc Cervical Spine: cervical spinal tenderness Thoracic/Lumbar Spine: scoliosis and thoracic spinal tenderness Neuro General: patient alert and patient oriented x3 Cognition: normal cognition Speech: speech normal Gait: normal gait Motor: muscle tone normal throughout and strength 5/5 throughout Extrem General: normal to inspection, full ROM, no joint enlargement and no pedal edema Psych Appearance: grossly normal Mental Status: mental status grossly normal Speech and Movement: speech and movement normal Mood: congruent mood Affect: normal affect Attitude: cooperative Thought Process: normal Thought Content: normal Insight: insight good Judgment: judgment good Immunizations flu vac [id number] 36mos up(PF) Performing Provider: Florina Mercedes NP Administered by: Edie Wallace on 01/03/21 14:55 Dose Route Admin Location Lot Number Expiration Date [facility] Manufactu rer 0.5 mL IM Left deltoid [id number] 10/11/21 [id number] [employer] VIS Given Date VIS Provided VIS Publication Date 01/03/21 Single Vaccine 20 Eligibility Eligibility Date Funding Source Not [facility] Eligible 01/03/21 Private Assessment Plan Assessment Plan (1) Back pain: Status: Chronic Code(s): M54.9 - Dorsalgia, unspecified Category: Medical Qualifiers: Back pain location: thoracic back pain (2) Arthralgia: Status: Acute Code(s): M25.50 - Pain in unspecified joint Category: Medical Plan: LABORATORY WORKUP TO R/O DISEASE. RF, LUPUS, SED RATE, ANTI-CCP, LYME, TSH, FOLATE, VIT B12. ENCOURAGED TO TAKE IBUPROFEN 800MG TID AND TAKE TYLENOL PRN FOR BREAKTHROUGH PAIN. INFLUENZA VACCINE ADMINISTERED TODAY. DISCUSSED LIFESTYLE MODIFICATIONS FOR WEIGHT MANAGEMENT. RTC IN 1 MONTH. I participated in the documentation of this service as a medical student.A student assisted with thedocumentation of this service. I saw and personally examined the patient and reviewed and verified all information documented by the student and made modifications to such information when appropriate. Orders: Orders INJ - Influenza Vaccine Today Z23 - Encounter for immunization RHEUMATOID FACTOR Today M25.50 - Pain in unspecified joint Lupus Anticoagulant Prof w Rfx Today M25.50 - Pain in unspecified joint SED RATE Today M25.50 - Pain in unspecified joint Citrullinated Peptide CCP IgG Today M25.50 - Pain in unspecified joint Lyme IgG/IgM rfx -Immublot(WB) Today M25.50 - Pain in unspecified joint TSH w/ reflex to Free T4 Today E03.9 - Hypothyroidism, unspecified FOLATE (FOLIC ACID) Today D64.9 - Anemia, unspecified Vitamin B12 Today D64.9 - Anemia, unspecified Counseling Counseling on all vaccine components completed: Yes Coding [place] [address] Est Pt Extended Comp Patient Type Established History Detailed Exam Detailed Medical Decision Making Moderate Complexity Diagnoses Back pain M54.9 Back pain location: thoracic back pain Arthralgia M25.50 Additional Codes Intake - Is patient in pain?: Yes (1125F) Time Spent (min) 40 <Electronically signed by Florina Mercedes NP> 01/03/21 1642 Name Value Range Interpretation Code Description Data Alysa rce(s) Supporting Document(s) ID Date Data Source [id number] 12/29/2020 08:00:00 AM EDT [facility] Patient Name: SHANNAN WADE B: 1995 Sex: F Pt Unit #: [id number] Location:[facility] Provider: Visit Date/Time: 12/29/20 Primary Insurance: MEDICARE [employer] Secondary Insurance: MEDICAID [facility] 2ND R Intake Vital Signs 12/29/20 08:01 Current Height 5 ft 1.5 in Current Weight 156 lb Weight Measurement Method Standing Scale BMI 29.0 BP 118/74 Blood Pressure Location Rt brachial Position Sitting Respiration 16 Pulse 106 H Pulse Strength Normal Pulse Source Pulse Oximeter Pulse Oximetry (%) 98 Oxygen Delivery Method room air Intake Visit Reasons: Headache Nurse Note: 25 year old here today for c/o a headache. Is patient in pain?: Yes (headache) Pain scale (1-10): 6 Allergies No Known Drug Allergies [From No known Food or Drug Allergies] Allergy (Verified 12/29/20 08:12) No Known Food Al lergies [From No known Food or Drug Allergies] Allergy (Verified 12/29/20 08:12) Medications - Last Reconciled 12/29/20 by Pinky Villareal NP bupropion HCl 75 mg PO QDAY cholecalciferol (vitamin D3) 125 mcg PO QDAY copper (ParaGard T 380A) intrauterine gabapentin 600 mg PO HS hydroxyzine HCl 25 mg PO DAILY quetiapine (Seroquel) 100 mg PO ONCE HS sertraline 100 mg PO QDAY trazodone 25 mg PO QDAY Is last menstrual period known: Yes Last menstrual period: 12/13/20 Patient : No Vision Wearing glasses?: Yes Fall Risk History of falls: No Ambulatory Aid:: None Gait/Transferring:: Normal PHQ-2/9 Over the last 2 weeks, how often have you been bothered by any of the following problems? 1. Little interest or pleasure in doing things: several days 2. Feeling down, depressed, or hopeless: several days Total score: 2 HIV Testing Offer - ages 13-64 HIV testing Offer: Yes Requirement for HIV testing offer been met?: Declines today. Pretest education received and acknowledged SBIRT Annual Questionnaire Are you currently in recovery for alcohol or substance use?: Yes How many times in the past year have you had 4 or more drinks in a day?: 1 or more (several) How many times in the past year have you used a recreational drug or used a prescription medication for nonmedical reasons?: 1 or more (History of THC, Opioids,crack,meth, adderal, in therapy now. ) Coronavirus Screening Screening Are you currently positive or on isolation for COVID ?: No Do you have any NEW signs of one or more of the following?: no symptoms Do you have NEW signs of at least two of the following?: headache HPI Headache Started 4 days ago. Mostly posterior right side. Tried ice packs until last night when she took a "headache" medicine. Did experience some improvement with the medicine but BANEGAS returned this am. Aggravating factors are light and noise. Denies change in vision, dizziness, syncope. Has hx of migraine headaches but it has been a while since her last severe one. She has hx of drug abuse which improved her headaches. When asked further she has been taking ibuprofen/tylenol daily for months due to chronic pain. Recently her boyfriend became concerned about this due to her hx of drug abuse and recommended she stop. She stopped taking these medications 5 days ago and then BANEGAS began the next day. Associated symptoms: Reports nausea, photosen sitivity and sound sensitivity; Denies aura, eye watering, nasal congestion, scalp tenderness, excessive sweating, tingling, numbness, visual disturbances, vomiting, agitation/restlessness, anxiety, change in appetite, chest pain, confusion, depression, facial pain, fatigue, fever(s), incoordination, jaw pain, loss of consciousness, malaise, memory problems, myalgias, muscle weakness, neck stiffness, night sweats, palpitations, rash, sleep disturbances, slurred speech, vertigo, weight loss or other [facility] Medical History Adopted Anxiety Depression Dyspareunia Foot pain 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 Brother No problems noted. 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 pets and animals: Yes pets and animals: cat(s) Hx Recent Travel (where): No sexually active: Yes how many partners: 10 do you think of yourself as: straight/heterosexual current gender identity: female Smoking Status: Former smoker Tobacco: How many years used: 18 alcohol intake: current alcohol intake frequency: holidays/special occasions only substance use type: former substance user Date of last use: february 2020, marijuana, crack/cocaine, opiates, painkillers and methamphetamine counseling given: No counseling provided: treatment program seatbelt use: always Female Reproductive History Menstrual Age of Menarche: 10 Duration of menses: 6-7 days Date of last menstrual period: 12/13/20 control method: copper IUCD Total pregnancies: 1 Ab induced: 0 Ab spontaneous: 0 Ectopics: 0 Review of Systems Const Denies excessive sweating, Denies fatigue, Denies fever(s), Denies malaise, Denies night sweats and Denies weight loss ENT Denies vertigo, Denies facial pain and Denies nasal congestion Card Denies chest pain and Denies palpitations GI Reports nausea and Denies vomiting Musc Denies myalgias, Denies muscle weakness, Denies numbness and Denies tingling Skin/Breast Reports photosensitivity and Denies rash Neuro Denies confusion, Denies vertigo, Denies numbness and Denies tingling Psych Denies anxiety, Denies change in appetite, Denies confusion and Denies depression Endo Denies excessive sweating, Denies fatigue and Denies palpitations Exam Const General: cooperative and healthy appearing Nutritional Appearance: well nourished Orientation: alert, awake and oriented x3 Eyes General: appearance normal, both eyes and all related structures Pupils: PERRL EOM: EOM intact bilaterally Neck Neck: normal visual inspection and full ROM Resp Effort Inspection: normal respiratory effort Auscultation: clear to auscultation bilaterally Cardio Rate: regular rate Rhythm: regular rhythm Heart Sounds: S1 normal and S2 normal Bruits: no carotid bruits Skin Lesions: no lesions Rashes: no rashes Hair: normal Nails: normal Neuro General: patient alert, patient oriented x3 and moves all extremities Cognition: normal cognition Speech: speech normal Gait: normal gait Assessment Plan Assessment Plan (1) Headache: Code(s): R51.9 - Headache, unspecified Plan: I believe this is a rebound BANEGAS from stopping NSAID's. Discussed that she can either go back on the medications to relieve her pain and BANEGAS or continue with the detox process. If she decides to stay off I recommend rest, fluids, caffeine. She will discuss with her boyfriend and make a decision. I also recommend she make an appt with Florina to discuss her chronic pain-she agrees to the plan. Coding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 level 22 mEq/L 21-32 Carbon Dioxide Level [facility] ([facility]) chloride level 111 mEq/L 98-107 Above high normal Chloride Level [facility] ([facility]) anion gap 7 mEq/L 8-16 Below low normal Anion Gap [facility]KO ( [facility]) calcium level 8.8 mg/dL 8.5-10.1 Calcium Level [facility]) ID Date Data Source [id number] 06/07/2020 04:20:00 PM EST [facility] ([facility]) Name Value Range Interpretation Code Description Data Alysa rce(s) Supporting Document(s) AST/SGOT 10 U/L 7-37 AST/SGOT [facility] ([facility]) alkaline phosphatase 80 U/L 45-117 Alkaline Phosph atase [facility] ([facility]) ALT/SGPT 20 U/L 12-78 ALT/SGPT [facility] ([facility]) bilirubin,direct 0.1 mg/dL 0.0-0.2 Bilirubin,direct AT [facility] ([facility]) bilirubin,total 0.4 mg/dL 0.2-1.0 Bilirubin,total ATHE NA ([facility]) total protein 7.6 gm/dL 6.4-8.2 Total Protein [facility] ( [facility]) albumin 4.1 gm/dL 3.2-5.2 Albumin N[facility]EN ([facility]) albumin/globulin ratio 1.2-2.2 Albumin/globu harjit Ratio [facility] ([facility]) ID Date Data Source [id number] 06/07/2020 04:20:00 PM EST [facility] ([facility]) Name Value Range Interpretation Code Description Data Alysa rce(s) Supporting Document(s) amphetamines level urine negative negative Amphetamine s Level Urine [facility] ([facility]) barbiturates urine negative negative Barbiturates Urin e [facility] ([facility]) benzodiazepines urine negative negative Benzodiazepine s Urine [facility] ([facility]) cocaine metabolite urine negative negative Cocaine Met abolite Urine [facility] ([facility]) methadone urine negative negative Methadone Urine ATHE NA ([facility]) cannabinoids urine negative negative Cannabinoids Urin e [facility] ([facility]) phencyclidine urine negative negative Phencyclidine Ur ine [facility] ([facility]) opiates urine negative negative Opiates Urine [facility]EN ( [facility]) ID Date Data Source [id number] 06/07/2020 04:20:00 PM EST [facility] ([facility]) Name Value Range Interpretation Code Description Data Alysa rce(s) Supporting Document(s) white blood count 6.7 10 4.0-10.0 White Blood Count [facility] ([facility]) hemoglobin 12.9 g/dL 12.0-15.5 Hemoglobin [facility] ([facility]) red blood count 4.18 10 4.00-5.40 Red Blood Count ATHE NA ([facility]) mean corpuscular volume 94.7 fL 80.0-96.0 Mean Corpusc ular Volume [facility] ([facility]) hematocrit 39.6 % 36.0-47.0 Hematocrit [facility] ([facility]) red cell distribution width 12.3 % 11.5-14.5 Red Cell Distribution Width [facility] ([facility]) mean corpuscular HGB conc 32.6 g/dL 32.0-36.5 Mean Corpu scular HGB Conc [facility] ([facility]) mean corpuscular hemoglobin 30.9 pg 27.0-33.0 Mean Cor puscular Hemoglobin [facility] ([facility]) nucleated red blood cell % 0.0 % 0-0 Nucleated Red Blood Cell % [facility] ([facility]) platelet count, automated 274 10 150-450 Platelet C ount, Automated [facility] ([facility]) ID Date Data Source [id number] 06/07/2020 04:20:00 PM EST [facility] ([facility]) Name Value Range Interpretation Code Description Data Alysa rce(s) Supporting Document(s) HCG, serum qualitative negative negative HCG, Serum Qu alitative [facility] ([facility]) ID Date Data Source [id number] 06/07/2020 04:20:00 PM EST [facility] ([facility]) Name Value Range Interpretation Code Description Data Alysa rce(s) Supporting Document(s) thyroid stimulating hormone 1.150 uIU/mL 0.358-3.740 Thyroid Stimulating Hormone [facility] ([facility]) ID Date Data Source [id number] 06/07/2020 04:20:00 PM EST [facility] ([facility]) Name Value Range Interpretation Code Description Data Alysa rce(s) Supporting Document(s) acetaminophen level < 2.0 10.0-30.0 Below low normal Acetaminop hen Level [facility] ([facility]) ID Date Data Source [id number] 06/07/2020 04:20:00 PM EST [facility] ([facility]) Name Value Range Interpretation Code Description Data Alysa rce(s) Supporting Document(s) salicylate level < 1.7 5.0-30.0 Below low normal Salicylate Le jacques [facility] ([facility]) ID Date Data Source [id number] 06/07/2020 04:20:00 PM EST [facility] ([facility]) Name Value Range Interpretation Code Description Data Alysa rce(s) Supporting Document(s) ethyl alcohol (ethanol) < 0.003 0.000-0.010 Ethyl Alcoh ol (Ethanol) [facility] ([facility]) ID Date Data Source [id number] 06/07/2020 04:20:00 PM EST [facility] ([facility]) Name Value Range Interpretation Code Description Data Alysa rce(s) Supporting Document(s) blood urea nitrogen 10 mg/dL 7-18 Blood Urea Nitro gen [facility] ([facility]) glucose, fasting 73 mg/dL 70-100 Glucose, Fasting AT [facility] ([facility]) creatinine for GFR 0.60 mg/dL 0.55-1.30 Creatinine for GF R [facility] ([facility]) potassium serum 4.3 mEq/L 3.5-5.1 Potassium Serum ATHE NA ([facility]) glomerular filtration rate > 60.0 >60 Glomerula r Filtration Rate [facility] ([facility]) sodium level 140 mEq/L 136-145 Sodium Level N[facility]EN (No [facility]) chloride level 111 mEq/L 98-107 Above high normal Chloride Level [facility] ([facility]) carbon dioxide level 22 mEq/L 21-32 Carbon Dioxide Level [facility] ([facility]) anion gap 7 mEq/L 8-16 Below low normal Anion Gap N[facility]EN ( [facility]) calcium level 8.8 mg/dL 8.5-10.1 Calcium Level [facility] ( [facility]) ID Date Data Source [id number] 06/07/2020 04:20:00 PM EST [facility] ([facility]) Name Value Range Interpretation Code Description Data Alysa rce(s) Supporting Document(s) ALT/SGPT 20 U/L 12-78 ALT/SGPT [facility] ([facility]) AST/SGOT 10 U/L 7-37 AST/SGOT [facility] ([facility]) bilirubin,total 0.4 mg/dL 0.2-1.0 Bilirubin,total ATHE NA ([facility]) alkaline phosphatase 80 U/L 45-117 Alkaline Phosph atase [facility] ([facility]) bilirubin,direct 0.1 mg/dL 0.0-0.2 Bilirubin,direct AT [facility] ([facility]) total protein 7.6 gm/dL 6.4-8.2 Total Protein N[facility]EN ( [facility]) albumin 4.1 gm/dL 3.2-5.2 Albumin NAVEEN ([facility]) albumin/globulin ratio 1.2-2.2 Albumin/globu harjit Ratio [facility] ([facility]) ID Date Data Source [id number] 06/07/2020 04:20:00 PM EST [facility] ([facility]) Name Value Range Interpretation Code Description Data Alysa rce(s) Supporting Document(s) amphetamines level urine negative negative Amphetamine s Level Urine [facility] ([facility]) barbiturates urine negative negative Barbiturates Urin e NAVEEN ([facility]) benzodiazepines urine negative negative Benzodiazepine s Urine NAVEEN ([facility]) cannabinoids urine negative negative Cannabinoids Urin e ESKO ([facility]) cocaine metabolite urine negative negative Cocaine Met abolite Urine NAVEEN ([facility]) methadone urine negative negative Methadone Urine ATHE NA ([facility]) opiates urine negative negative Opiates Urine NAVEEN ( [facility]) phencyclidine urine negative negative Phencyclidine Ur ine NAVEEN ([facility]) ID Date Data Source [id number] 06/07/2020 04:20:00 PM EST NAVEEN ([facility]) Name Value Range Interpretation Code Description Data Alysa rce(s) Supporting Document(s) white blood count 6.7 10 4.0-10.0 White Blood Count NAVEEN ([facility]) red blood count 4.18 10 4.00-5.40 Red Blood Count ATHE NA ([facility]) hemoglobin 12.9 g/dL 12.0-15.5 Hemoglobin NAVEEN ([facility]) mean corpuscular volume 94.7 fL 80.0-96.0 Mean Corpusc ular Volume NAVEEN ([facility]) mean corpuscular hemoglobin 30.9 pg 27.0-33.0 Mean Cor puscular Hemoglobin NAVEEN ([facility]) hematocrit 39.6 % 36.0-47.0 Hematocrit NAVEEN ([facility]) red cell distribution width 12.3 % 11.5-14.5 Red Cell Distribution Width NAVEEN ([facility]) platelet count, automated 274 10 150-450 Platelet C ount, Automated NAVEEN ([facility]) mean corpuscular HGB conc 32.6 g/dL 32.0-36.5 Mean Corpu scular HGB Conc NAVEEN ([facility]) nucleated red blood cell % 0.0 % 0-0 Nucleated Red Blood Cell % NAVEEN ([facility]) ID Date Data Source [id number] 06/07/2020 04:20:00 PM EST NAVEEN ([facility]) Name Value Range Interpretation Code Description Data Alysa rce(s) Supporting Document(s) HCG, serum qualitative negative negative HCG, Serum Qu alitative NAVEEN ([facility]) ID Date Data Source [id number] 06/07/2020 04:20:00 PM EST NAVEEN ([facility]) Name Value Range Interpretation Code Description Data Alysa rce(s) Supporting Document(s) thyroid stimulating hormone 1.150 uIU/mL 0.358-3.740 Thyroid Stimulating Hormone NAVEEN ([facility]) ID Date Data Source [id number] 06/07/2020 04:20:00 PM EST NAVEEN ([facility]) Name Value Range Interpretation Code Description Data Alysa rce(s) Supporting Document(s) acetaminophen level < 2.0 10.0-30.0 Below low normal Acetaminop hen Level [facility]) ID Date Data Source [id number] 06/07/2020 04:20:00 PM EST NAVEEN ([facility]) Name Value Range Interpretation Code Description Data Alysa rce(s) Supporting Document(s) salicylate level < 1.7 5.0-30.0 Below low normal Salicylate Le jacques NAVEEN ([facility]) ID Date Data Source [id number] 06/07/2020 04:20:00 PM EST NAVEEN ([facility]) Name Value Range Interpretation Code Description Data Alysa rce(s) Supporting Document(s) ethyl alcohol (ethanol) < 0.003 0.000-0.010 Ethyl Alcoh ol (Ethanol) NAVEEN ([facility]) ID Date Data Source [id number] 06/07/2020 [facility] Name Value Range Interpretation Code Description Data Alysa rce(s) Supporting Document(s) glucose, fasting 73 mg/dL 70-100 Glucose, Fasting AT REKHA ([facility]) blood urea nitrogen 10 mg/dL 7-18 Blood Urea Nitro gen NAVEEN ([facility]) glomerular filtration rate > 60.0 >60 Glomerula r Filtration Rate NAVEEN ([facility]) creatinine for GFR 0.60 mg/dL 0.55-1.30 Creatinine for GF R NAVEEN ([facility]) potassium serum 4.3 mEq/L 3.5-5.1 Potassium Serum ATHE NA ([facility]) chloride level 111 mEq/L 98-107 Above high normal Chloride Level NAVEEN ([facility]) sodium level 140 mEq/L 136-145 Sodium Level NAVEEN ([facility]) anion gap 7 mEq/L 8-16 Below low normal Anion Gap NAVEEN ( [facility]) carbon dioxide level 22 mEq/L 21-32 Carbon Dioxide Level NAVEEN ([facility]) calcium level 8.8 mg/dL 8.5-10.1 Calcium Level NAVEEN ( [facility]) ID Date Data Source [id number] 06/07/2020 04:20:00 PM EST NAVEEN ([facility]) Name Value Range Interpretation Code Description Data Alysa rce(s) Supporting Document(s) ALT/SGPT 20 U/L 12-78 ALT/SGPT NAVEEN ([facility]) AST/SGOT 10 U/L 7-37 AST/SGOT NAVEEN ([facility]) alkaline phosphatase 80 U/L 45-117 Alkaline Phosph atase NAVEEN ([facility]) bilirubin,direct 0.1 mg/dL 0.0-0.2 Bilirubin,direct AT REKHA ([facility]) total protein 7.6 gm/dL 6.4-8.2 Total Protein NAVEEN ( [facility]) bilirubin,total 0.4 mg/dL 0.2-1.0 Bilirubin,total ATHE NA ([facility]) albumin 4.1 gm/dL 3.2-5.2 Albumin NAVEEN ([facility]) albumin/globulin ratio 1.2-2.2 Albumin/globu harjit Ratio NAVEEN ([facility]) ID Date Data Source [id number] 06/07/2020 04:20:00 PM EST NAVEEN ([facility]) Name Value Range Interpretation Code Description Data Alysa rce(s) Supporting Document(s) amphetamines level urine negative negative Amphetamine s Level Urine NAVEEN ([facility]) barbiturates urine negative negative Barbiturates Urin e NAVEEN ([facility]) benzodiazepines urine negative negative Benzodiazepine s Urine NAVEEN ([facility]) cannabinoids urine negative negative Cannabinoids Urin e NAVEEN ([facility]) cocaine metabolite urine negative negative Cocaine Met abolite Urine NAVEEN ([facility]) methadone urine negative negative Methadone Urine ATHE NA ([facility]) phencyclidine urine negative negative Phencyclidine Ur ine NAVEEN ([facility]) opiates urine negative negative Opiates Urine NAVEEN ( [facility]) ID Date Data Source [id number] 06/07/2020 04:20:00 PM EST NAVEEN ([facility]) Name Value Range Interpretation Code Description Data Alysa rce(s) Supporting Document(s) white blood count 6.7 10 4.0-10.0 White Blood Count NAVEEN ([facility]) red blood count 4.18 10 4.00-5.40 Red Blood Count ATHE ([facility]) hemoglobin 12.9 g/dL 12.0-15.5 Hemoglobin NAVEEN ([facility]) mean corpuscular volume 94.7 fL 80.0-96.0 Mean Corpusc ular Volume NAVEEN ([facility]) hematocrit 39.6 % 36.0-47.0 Hematocrit NAVEEN ([facility]) mean corpuscular hemoglobin 30.9 pg 27.0-33.0 Mean Cor puscular Hemoglobin NAVEEN ([facility]) red cell distribution width 12.3 % 11.5-14.5 Red Cell Distribution Width NAVEEN ([facility]) mean corpuscular HGB conc 32.6 g/dL 32.0-36.5 Mean Corpu scular HGB Conc NAVEEN ([facility]) platelet count, automated 274 10 150-450 Platelet C ount, Automated NAVEEN ([facility]) nucleated red blood cell % 0.0 % 0-0 Nucleated Red Blood Cell % NAVEEN ([facility]) ID Date Data Source [id number] 06/07/2020 04:20:00 PM EST NAVEEN ([facility]) Name Value Range Interpretation Code Description Data Alysa rce(s) Supporting Document(s) HCG, serum qualitative negative negative HCG, Serum Qu alitative NAVEEN ([facility]) ID Date Data Source [id number] 06/07/2020 04:20:00 PM EST ESKO ([facility]) Name Value Range Interpretation Code Description Data Alysa rce(s) Supporting Document(s) thyroid stimulating hormone 1.150 uIU/mL 0.358-3.740 Thyroid Stimulating Hormone ESKO ([facility]) ID Date Data Source [id number] 06/07/2020 04:20:00 PM EST ESKO ([facility]) Name Value Range Interpretation Code Description Data Alysa rce(s) Supporting Document(s) acetaminophen level < 2.0 10.0-30.0 Below low normal Acetaminop hen Level [facility]) ID Date Data Source [id number] 06/07/2020 04:20:00 PM EST NAVEEN ([facility]) Name Value Range Interpretation Code Description Data Alysa rce(s) Supporting Document(s) salicylate level < 1.7 5.0-30.0 Below low normal Salicylate Le jacques NAVEEN ([facility]) ID Date Data Source [id number] 06/07/2020 04:20[facility] Name Value Range Interpretation Code Description Data Alysa rce(s) Supporting Document(s) ethyl alcohol (ethanol) < 0.003 0.000-0.010 Ethyl Alcoh ol ([facility]) [facility] ID Date Data Source [id number] 06/07/2020 04:20:00 PM EST NAVEEN ([facility]) Name Value Range Interpretation Code Description Data Alysa rce(s) Supporting Document(s) blood urea nitrogen 10 mg/dL 7-18 Blood Urea Nitro gen NAVEEN ([facility]) creatinine for GFR 0.60 mg/dL 0.55-1.30 Creatinine for GF R NAVEEN ([facility]) glucose, fasting 73 mg/dL 70-100 Glucose, Fasting AT REKHA [facility]) chloride level 111 mEq/L 98-107 Above high normal Chloride Level NAVEEN ([facility]) sodium level 140 mEq/L 136-145 Sodium Level NAVEEN ([facility]) glomerular filtration rate > 60.0 >60 Glomerula r Filtration Rate NAVEEN ([facility]) potassium serum 4.3 mEq/L 3.5-5.1 Potassium Serum ATHE NA ([facility]) calcium level 8.8 mg/dL 8.5-10.1 Calcium Level NAVEEN ( [facility]) carbon dioxide level 22 mEq/L 21-32 Carbon Dioxide Level NAVEEN ([facility]) anion gap 7 mEq/L 8-16 Below low normal Anion Gap NAVEEN ( [facility]) ID Date Data Source [id number] 06/07/2020 04:20:00 PM EST NAVEEN ([facility]) Name Value Range Interpretation Code Description Data Alysa rce(s) Supporting Document(s) AST/SGOT 10 U/L 7-37 AST/SGOT NAVEEN ([facility]) ALT/SGPT 20 U/L 12-78 ALT/SGPT NAVEEN ([facility]) alkaline phosphatase 80 U/L 45-117 Alkaline Phosph atase NAVEEN ([facility]) bilirubin,total 0.4 mg/dL 0.2-1.0 Bilirubin,total ATHE NA ([facility]) albumin 4.1 gm/dL 3.2-5.2 Albumin NAVEEN ([facility]) total protein 7.6 gm/dL 6.4-8.2 Total Protein NAVEEN ( [facility]) bilirubin,direct 0.1 mg/dL 0.0-0.2 Bilirubin,direct AT REKHA ([facility]) albumin/globulin ratio 1.2-2.2 Albumin/globu harjit Ratio NAVEEN ([facility]) ID Date Data Source [id number] 06/07/2020 04:20:00 PM EST NAVEEN ([facility]) Name Value Range Interpretation Code Description Data Alysa rce(s) Supporting Document(s) barbiturates urine negative negative Barbiturates Urin e NAVEEN ([facility]) benzodiazepines urine negative negative Benzodiazepine s Urine NAVEEN ([facility]) amphetamines level urine negative negative Amphetamine s Level Urine NAVEEN ([facility]) cocaine metabolite urine negative negative Cocaine Met abolite Urine NAVEEN ([facility]) cannabinoids urine negative negative Cannabinoids Urin e NAVEEN ([facility]) methadone urine negative negative Methadone Urine ATHE ([facility]) phencyclidine urine negative negative Phencyclidine Ur ine NAVEEN ([facility]) opiates urine negative negative Opiates Urine NAVEEN ( [facility]) ID Date Data Source [id number] 06/07/2020 04:20:00 PM EST NAVEEN ([facility]) Name Value Range Interpretation Code Description Data Alysa rce(s) Supporting Document(s) red blood count 4.18 10 4.00-5.40 Red Blood Count ATHE NA ([facility]) white blood count 6.7 10 4.0-10.0 White Blood Count NAVEEN ([facility]) hematocrit 39.6 % 36.0-47.0 Hematocrit NAVEEN ([facility]) hemoglobin 12.9 g/dL 12.0-15.5 Hemoglobin NAVEEN ([facility]) mean corpuscular volume 94.7 fL 80.0-96.0 Mean Corpusc ular Volume NAVEEN ([facility]) mean corpuscular HGB conc 32.6 g/dL 32.0-36.5 Mean Corpu scular HGB Conc NAVEEN ([facility]) red cell distribution width 12.3 % 11.5-14.5 Red Cell Distribution Width ESKO ([facility]) mean corpuscular hemoglobin 30.9 pg 27.0-33.0 Mean Cor puscular Hemoglobin ESKO ([facility]) nucleated red blood cell % 0.0 % 0-0 Nucleated Red Blood Cell % NAVEEN ([facility]) platelet count, automated 274 10 150-450 Platelet C ount, Automated NAVEEN ([facility]) ID Date Data Source [id number] 06/07/2020 04:20:00 PM EST ESKO ([facility]) Name Value Range Interpretation Code Description Data Alysa rce(s) Supporting Document(s) HCG, serum qualitative negative negative HCG, Serum Qu alitative ESKO ([facility]) ID Date Data Source [id number] 06/07/2020 04:20:00 PM EST ESKO ([facility]) Name Value Range Interpretation Code Description Data Alysa rce(s) Supporting Document(s) thyroid stimulating hormone 1.150 uIU/mL 0.358-3.740 Thyroid Stimulating Hormone ESKO ([facility]) ID Date Data Source [id number] 06/07/2020 04:20:00 PM EST ESKO ([facility]) Name Value Range Interpretation Code Description Data Alysa rce(s) Supporting Document(s) acetaminophen level < 2.0 10.0-30.0 Below low normal Acetaminop hen Level ESKO ([facility]) ID Date Data Source [id number] 06/07/2020 04:20:00 PM EST ESKO ([facility]) Name Value Range Interpretation Code Description Data Alysa rce(s) Supporting Document(s) salicylate level < 1.7 5.0-30.0 Below low normal Salicylate Le jacques NAVEEN ([facility]) ID Date Data Source [id number] 06/07/2020 04:20:00 PM EST NAVEEN ([facility]) Name Value Range Interpretation Code Description Data Alysa rce(s) Supporting Document(s) ethyl alcohol (ethanol) < 0.003 0.000-0.010 Ethyl Alcoh ol (Ethanol) ESKO ([facility]) ID Date Data Source [id number] 06/07/2020 04:20:00 PM EST ESKO ([facility]) Name Value Range Interpretation Code Description Data Alysa rce(s) Supporting Document(s) creatinine for GFR 0.60 mg/dL 0.55-1.30 Creatinine for GF R ESKO ([facility]) glucose, fasting 73 mg/dL 70-100 Glucose, Fasting AT [facility]) glomerular filtration rate > 60.0 >60 Glomerula r Filtration Rate ESKO ([facility]) blood urea nitrogen 10 mg/dL 7-18 Blood Urea Nitro gen ESKO ([facility]) sodium level 140 mEq/L 136-145 Sodium Level ESKO ([facility]) potassium serum 4.3 mEq/L 3.5-5.1 Potassium Serum ATH NA ([facility]) chloride level 111 mEq/L 98-107 Above high normal Chloride Level ESKO ([facility]) carbon dioxide level 22 mEq/L 21-32 Carbon Dioxide Level ESKO ([facility]) calcium level 8.8 mg/dL 8.5-10.1 Calcium Level ESKO ( [facility]) anion gap 7 mEq/L 8-16 Below low normal Anion Gap [facility]) ID Date Data Source [id number] 06/07/2020 04:20:00 PM EST [facility]) Name Value Range Interpretation Code Description Data Alysa rce(s) Supporting Document(s) AST/SGOT 10 U/L 7-37 AST/SGOT NAVEEN ([facility]) bilirubin,total 0.4 mg/dL 0.2-1.0 Bilirubin,total ATHE NA ([facility]) alkaline phosphatase 80 U/L 45-117 Alkaline Phosph atase NAVEEN ([facility]) ALT/SGPT 20 U/L 12-78 ALT/SGPT NAVEEN ([facility]) bilirubin,direct 0.1 mg/dL 0.0-0.2 Bilirubin,direct AT REKHA ([facility]) total protein 7.6 gm/dL 6.4-8.2 Total Protein NAVEEN ( [facility]) albumin 4.1 gm/dL 3.2-5.2 Albumin NAVEEN ([facility]) albumin/globulin ratio 1.2-2.2 Albumin/globu harjit Ratio NAVEEN ([facility]) ID Date Data Source [id number] 06/07/2020 04:20:00 PM EST NAVEEN ([facility]) Name Value Range Interpretation Code Description Data Alysa rce(s) Supporting Document(s) amphetamines level urine negative negative Amphetamine s Level Urine NAVEEN ([facility]) benzodiazepines urine negative negative Benzodiazepine s Urine NAVEEN ([facility]) cannabinoids urine negative negative Cannabinoids Urin e NAVEEN ([facility]) barbiturates urine negative negative Barbiturates Urin e NAVEEN ([facility]) methadone urine negative negative Methadone Urine ATHE NA ([facility]) cocaine metabolite urine negative negative Cocaine Met abolite Urine NAVEEN ([facility]) opiates urine negative negative Opiates Urine NAVEEN ( [facility]) phencyclidine urine negative negative Phencyclidine Ur ine NAVEEN ([facility]) ID Date Data Source [id number] 06/07/2020 04:20:00 PM EST NAVEEN ([facility]) Name Value Range Interpretation Code Description Data Alysa rce(s) Supporting Document(s) white blood count 6.7 10 4.0-10.0 White Blood Count NAVEEN ([facility]) red blood count 4.18 10 4.00-5.40 Red Blood Count ATHE NA ([facility]) hemoglobin 12.9 g/dL 12.0-15.5 Hemoglobin NAVEEN ([facility]) mean corpuscular volume 94.7 fL 80.0-96.0 Mean Corpusc ular Volume ESKO ([facility]) hematocrit 39.6 % 36.0-47.0 Hematocrit ESKO ([facility]) red cell distribution width 12.3 % 11.5-14.5 Red Cell Distribution Width ESKO ([facility]) mean corpuscular hemoglobin 30.9 pg 27.0-33.0 Mean Cor puscular Hemoglobin ESKO ([facility]) mean corpuscular HGB conc 32.6 g/dL 32.0-36.5 Mean Corpu scular HGB Conc ESKO ([facility]) platelet count, automated 274 10 150-450 Platelet C ount, Automated ESKO ([facility]) nucleated red blood cell % 0.0 % 0-0 Nucleated Red Blood Cell % ESKO ([facility]) ID Date Data Source [id number] 06/07/2020 12:00:00 PM EST MEDENT ([facility] [employer]) Name Value Range Interpretation Code Description Data Alysa rce(s) Supporting Document(s) TP Reflex HPV ASCUS Laboratory test result [facility] ([facility]) TP Reflex HPV ASCUS Laboratory test result [facility]ENT ([facility] [employer]) SPECIMEN PART------ A. Cervical, Endocervical, ThinPrep Pap ([employer]) CYTOLOGY HX-------- Date of Last Menstrual Period: 05/19/20 Other Information: IntraUterine Device FINAL DIAGNOSIS---- INTERPRETATION: Negative for Intraepithelial Lesion or Malignancy. SPECIMEN ADEQUACY:Satisfactory for evaluation. Endocervical/transformation zone component present. ID Date Data Source [id number] 03/30/2020 02:00:00 PM EST NAVEEN ([facility]) Name Value Range Interpretation Code Description Data Alysa rce(s) Supporting Document(s) prolactin 4.4 NG/mL Prolactin ESKO ([facility]) ID Date Data Source [id number] 03/30/2020 02:00:00 PM EST NAVEEN ([facility]) Name Value Range Interpretation Code Description Data Alysa rce(s) Supporting Document(s) thyroid stimulating hormone 0.833 uIU/mL 0.358-3.740 Thyroid Stimulating Hormone ESKO ([facility]) ID Date Data Source [id number] 03/30/2020 02:00:00 PM EST NAVEEN ([facility]) Name Value Range Interpretation Code Description Data Alysa rce(s) Supporting Document(s) glucose, fasting 86 mg/dL 70-100 Glucose, Fasting AT [facility]) creatinine for GFR 0.73 mg/dL 0.55-1.30 Creatinine for GF R ESKO ([facility]) sodium level 140 mEq/L 136-145 Sodium Level ESKO ([facility]) glomerular filtration rate > 60.0 >60 Glomerula r Filtration Rate NAVEEN ([facility]) blood urea nitrogen 11 mg/dL 7-18 Blood Urea Nitro gen NAVEEN ([facility]) potassium serum 4.4 mEq/L 3.5-5.1 Potassium Serum ATH NA ([facility]) anion gap 4 mEq/L 8-16 Below low normal Anion Gap ESKO ( [facility]) carbon dioxide level 29 mEq/L 21-32 Carbon Dioxide Level NAVEEN ([facility]) chloride level 107 mEq/L 98-107 Chloride Level ESKO ([facility]) AST/SGOT 10 U/L 7-37 AST/SGOT ESKO ([facility]) alkaline phosphatase 89 U/L 45-117 Alkaline Phosph atase NAVEEN ([facility]) ALT/SGPT 17 U/L 12-78 ALT/SGPT NAVEEN ([facility]) calcium level 10.0 mg/dL 8.5-10.1 Calcium Level NAVEEN ( [facility]) albumin 4.1 gm/dL 3.2-5.2 Albumin NAVEEN ([facility]) total protein 7.8 gm/dL 6.4-8.2 Total Protein NAVEEN ( [facility]) albumin/globulin ratio 1.2-2.2 Below low normal Albumin /globulin Ratio NAVEEN ([facility]) bilirubin,total 0.5 mg/dL 0.2-1.0 Bilirubin,total ATHE NA ([facility]) ID Date Data Source [id number] 03/30/2020 02:00:00 PM EST NAVEEN ([facility]) Name Value Range Interpretation Code Description Data Alysa rce(s) Supporting Document(s) white blood count 5.7 10 4.0-10.0 White Blood Count NAVEEN ([facility]) red blood count 4.34 10 4.00-5.40 Red Blood Count ATHE ([facility]) hematocrit 41.8 % 36.0-47.0 Hematocrit NAVEEN ([facility]) hemoglobin 13.7 g/dL 12.0-15.5 Hemoglobin NAVEEN ([facility]) mean corpuscular volume 96.3 fL 80.0-96.0 Above high normal Mean Corpuscular Volume NAVEEN ([facility]) red cell distribution width 11.7 % 11.5-14.5 Red Cell Distribution Width NAVEEN ([facility]) mean corpuscular hemoglobin 31.6 pg 27.0-33.0 Mean Cor puscular Hemoglobin NAVEEN ([facility]) mean corpuscular HGB conc 32.8 g/dL 32.0-36.5 Mean Corpu scular HGB Conc NAVEEN ([facility]) platelet count, automated 283 10 150-450 Platelet C ount, Automated NAVEEN ([facility]) neutrophils % 53.5 % 36.0-66.0 Neutrophils % NAVEEN ( [facility]) lymph % 35.7 % 24.0-44.0 Lymph % NAVEEN ([facility]) baso % 1.0 % 0.0-1.0 Baso % NAVEEN ([facility]) mono % 8.9 % 0.0-5.0 Above high normal [place] % NAVEEN ([facility]) eos % 0.9 % 0.0-3.0 Eos % NAVEEN ([facility]) immature granulocyte % 0.0 % 0-3.0 Immature Gran ulocyte % NAVEEN ([facility]) neutrophils # 3.1 10 1.5-8.5 Neutrophils # NAVEEN ( [facility]) lymph # 2.0 10 1.5-5.0 Lymph # ESKO ([facility]) nucleated red blood cell % 0.0 % 0-0 Nucleated Red Blood Cell % NAVEEN ([facility]) mono # 0.5 10 0.0-0.8 [place] # NAVEEN ([facility]) baso # 0.1 10 0.0-0.2 Baso # NAVENE ([facility]) eos # 0.1 10 0.0-0.5 Eos # NAVEEN ([facility]) ID Date Data Source [id number] 03/30/2020 02:00:00 PM EST NAVEEN ([facility]) Name Value Range Interpretation Code Description Data Alysa rce(s) Supporting Document(s) prolactin 4.4 NG/mL Prolactin NAVEEN ([facility]) ID Date Data Source [id number] 03/30/2020 02:00:00 PM EST NAVEEN ([facility]) Name Value Range Interpretation Code Description Data Alysa rce(s) Supporting Document(s) thyroid stimulating hormone 0.833 uIU/mL 0.358-3.740 Thyroid Stimulating Hormone NAVEEN ([facility]) ID Date Data Source [id number] 03/30/2020 02:00:00 PM EST NAVEEN ([facility]) Name Value Range Interpretation Code Description Data Alysa rce(s) Supporting Document(s) glucose, fasting 86 mg/dL 70-100 Glucose, Fasting AT [facility] ([facility]) blood urea nitrogen 11 mg/dL 7-18 Blood Urea Nitro gen NAVEEN ([facility]) sodium level 140 mEq/L 136-145 Sodium Level NAVEEN (No [facility]) glomerular filtration rate > 60.0 >60 Glomerula r Filtration Rate NAVEEN ([facility]) creatinine for GFR 0.73 mg/dL 0.55-1.30 Creatinine for GF R NAVEEN ([facility]) potassium serum 4.4 mEq/L 3.5-5.1 Potassium Serum ATHE ([facility]) anion gap 4 mEq/L 8-16 Below low normal Anion Gap NAVEEN ( [facility]) carbon dioxide level 29 mEq/L 21-32 Carbon Dioxide Level NAVEEN ([facility]) chloride level 107 mEq/L 98-107 Chloride Level NAVEEN ([facility]) calcium level 10.0 mg/dL 8.5-10.1 Calcium Level NAVEEN ( [facility]) AST/SGOT 10 U/L 7-37 AST/SGOT NAVEEN ([facility]) alkaline phosphatase 89 U/L 45-117 Alkaline Phosph atase NAVEEN ([facility]) bilirubin,total 0.5 mg/dL 0.2-1.0 Bilirubin,total ATHE NA ([facility]) ALT/SGPT 17 U/L 12-78 ALT/SGPT NAVEEN ([facility]) albumin 4.1 gm/dL 3.2-5.2 Albumin NAVEEN ([facility]) albumin/globulin ratio 1.2-2.2 Below low normal Albumin /globulin Ratio NAVEEN ([facility]) total protein 7.8 gm/dL 6.4-8.2 Total Protein NAVEEN ( [facility]) ID Date Data Source [id number] 03/30/2020 02:00:00 PM EST NAVEEN ([facility]) Name Value Range Interpretation Code Description Data Alysa rce(s) Supporting Document(s) white blood count 5.7 10 4.0-10.0 White Blood Count NAVEEN ([facility]) hemoglobin 13.7 g/dL 12.0-15.5 Hemoglobin NAVEEN ([facility]) mean corpuscular volume 96.3 fL 80.0-96.0 Above high normal Mean Corpuscular Volume NAVEEN ([facility]) hematocrit 41.8 % 36.0-47.0 Hematocrit NAVEEN ([facility]) red blood count 4.34 10 4.00-5.40 Red Blood Count ATHE NA ([facility]) red cell distribution width 11.7 % 11.5-14.5 Red Cell Distribution Width NAVEEN ([facility]) mean corpuscular HGB conc 32.8 g/dL 32.0-36.5 Mean Corpu scular HGB Conc NAVEEN ([facility]) mean corpuscular hemoglobin 31.6 pg 27.0-33.0 Mean Cor puscular Hemoglobin NAVEEN ([facility]) lymph % 35.7 % 24.0-44.0 Lymph % NAVEEN ([facility]) neutrophils % 53.5 % 36.0-66.0 Neutrophils % ESKO ( [facility]) platelet count, automated 283 10 150-450 Platelet C ount, Automated NAVEEN ([facility]) baso % 1.0 % 0.0-1.0 Baso % NAVEEN ([facility]) mono % 8.9 % 0.0-5.0 Above high normal [place] % NAVEEN ([facility]) eos % 0.9 % 0.0-3.0 Eos % NAVEEN ([facility]) immature granulocyte % 0.0 % 0-3.0 Immature Gran ulocyte % NAVEEN ([facility]) lymph # 2.0 10 1.5-5.0 Lymph # ESKO ([facility]) neutrophils # 3.1 10 1.5-8.5 Neutrophils # ESKO ( [facility]) nucleated red blood cell % 0.0 % 0-0 Nucleated Red Blood Cell % NAVEEN ([facility]) baso # 0.1 10 0.0-0.2 Baso # NAVEEN ([facility]) mono # 0.5 10 0.0-0.8 [place] # NAVEEN ([facility]) eos # 0.1 10 0.0-0.5 Eos # NAVEEN ([facility]) ID Date Data Source [id number] 03/30/2020 02:00:00 PM EST NAVEEN ([facility]) Name Value Range Interpretation Code Description Data Alysa rce(s) Supporting Document(s) prolactin 4.4 NG/mL Prolactin NAVEEN ([facility]) ID Date Data Source [id number] 03/30/2020 02:00:00 PM EST NAVEEN ([facility]) Name Value Range Interpretation Code Description Data Alysa rce(s) Supporting Document(s) thyroid stimulating hormone 0.833 uIU/mL 0.358-3.740 Thyroid Stimulating Hormone NAVEEN ([facility]) ID Date Data Source [id number] 03/30/2020 02:00:00 PM EST NAVEEN ([facility]) Name Value Range Interpretation Code Description Data Alysa rce(s) Supporting Document(s) glucose, fasting 86 mg/dL 70-100 Glucose, Fasting AT [facility] ([facility]) blood urea nitrogen 11 mg/dL 7-18 Blood Urea Nitro gen NAVEEN ([facility]) creatinine for GFR 0.73 mg/dL 0.55-1.30 Creatinine for GF R NAVEEN ([facility]) sodium level 140 mEq/L 136-145 Sodium Level NAVEEN (No [facility]) potassium serum 4.4 mEq/L 3.5-5.1 Potassium Serum ATHE NA ([facility]) glomerular filtration rate > 60.0 >60 Glomerula r Filtration Rate NAVEEN ([facility]) chloride level 107 mEq/L 98-107 Chloride Level NAVEEN ([facility]) carbon dioxide level 29 mEq/L 21-32 Carbon Dioxide Level NAVEEN ([facility]) anion gap 4 mEq/L 8-16 Below low normal Anion Gap NAVEEN ( [facility]) AST/SGOT 10 U/L 7-37 AST/SGOT NAVEEN ([facility]) calcium level 10.0 mg/dL 8.5-10.1 Calcium Level NAVEEN ( [facility]) ALT/SGPT 17 U/L 12-78 ALT/SGPT NAVEEN ([facility]) alkaline phosphatase 89 U/L 45-117 Alkaline Phosph atase NAVEEN ([facility]) bilirubin,total 0.5 mg/dL 0.2-1.0 Bilirubin,total ATHE NA ([facility]) total protein 7.8 gm/dL 6.4-8.2 Total Protein NAVEEN ( [facility]) albumin/globulin ratio 1.2-2.2 Below low normal Albumin /globulin Ratio NAVEEN ([facility]) albumin 4.1 gm/dL 3.2-5.2 Albumin NAVEEN ([facility]) ID Date Data Source [id number] 03/30/2020 02:00:00 PM EST NAVEEN ([facility]) Name Value Range Interpretation Code Description Data Alysa rce(s) Supporting Document(s) white blood count 5.7 10 4.0-10.0 White Blood Count NAVEEN ([facility]) red blood count 4.34 10 4.00-5.40 Red Blood Count ATHE NA ([facility]) hemoglobin 13.7 g/dL 12.0-15.5 Hemoglobin NAVEEN ([facility]) mean corpuscular volume 96.3 fL 80.0-96.0 Above high normal Mean Corpuscular Volume NAVEEN ([facility]) hematocrit 41.8 % 36.0-47.0 Hematocrit NAVEEN ([facility]) mean corpuscular hemoglobin 31.6 pg 27.0-33.0 Mean Cor puscular Hemoglobin NAVEEN ([facility]) platelet count, automated 283 10 150-450 Platelet C ount, Automated NAVEEN ([facility]) mean corpuscular HGB conc 32.8 g/dL 32.0-36.5 Mean Corpu scular HGB Conc NAVEEN ([facility]) red cell distribution width 11.7 % 11.5-14.5 Red Cell Distribution Width NAVEEN ([facility]) neutrophils % 53.5 % 36.0-66.0 Neutrophils % NAVEEN ( [facility]) lymph % 35.7 % 24.0-44.0 Lymph % NAVEEN ([facility]) mono % 8.9 % 0.0-5.0 Above high normal [place] % NAVEEN ([facility]) eos % 0.9 % 0.0-3.0 Eos % ESKO ([facility]) baso % 1.0 % 0.0-1.0 Baso % ESKO ([facility]) nucleated red blood cell % 0.0 % 0-0 Nucleated Red Blood Cell % NAVEEN ([facility]) immature granulocyte % 0.0 % 0-3.0 Immature Gran ulocyte % NAVEEN ([facility]) neutrophils # 3.1 10 1.5-8.5 Neutrophils # NAVEEN ( [facility]) eos # 0.1 10 0.0-0.5 Eos # NAVEEN ([facility]) mono # 0.5 10 0.0-0.8 [place] # NAVEEN ([facility]) lymph # 2.0 10 1.5-5.0 Lymph # NAVEEN ([facility]) baso # 0.1 10 0.0-0.2 Baso # NAVEEN ([facility]) ID Date Data Source [id number] 03/30/2020 02:00:00 PM EST NAVEEN ([facility]) Name Value Range Interpretation Code Description Data Alysa rce(s) Supporting Document(s) prolactin 4.4 NG/mL Prolactin NAVEEN ([facility]) ID Date Data Source [id number] 03/30/2020 02:00:00 PM EST NAVEEN ([facility]) Name Value Range Interpretation Code Description Data Alysa rce(s) Supporting Document(s) thyroid stimulating hormone 0.833 uIU/mL 0.358-3.740 Thyroid Stimulating Hormone NAVEEN ([facility]) ID Date Data Source [id number] 03/30/2020 02:00:00 PM EST NAVEEN ([facility]) Name Value Range Interpretation Code Description Data Alysa rce(s) Supporting Document(s) creatinine for GFR 0.73 mg/dL 0.55-1.30 Creatinine for GF R NAVEEN ([facility]) blood urea nitrogen 11 mg/dL 7-18 Blood Urea Nitro gen NAVEEN ([facility]) glomerular filtration rate > 60.0 >60 Glomerula r Filtration Rate NAVEEN ([facility]) glucose, fasting 86 mg/dL 70-100 Glucose, Fasting AT [facility]) chloride level 107 mEq/L 98-107 Chloride Level NAVEEN ([facility]) carbon dioxide level 29 mEq/L 21-32 Carbon Dioxide Level NAVEEN ([facility]) sodium level 140 mEq/L 136-145 Sodium Level NAVEEN ([facility]) potassium serum 4.4 mEq/L 3.5-5.1 Potassium Serum ATH NA ([facility]) anion gap 4 mEq/L 8-16 Below low normal Anion Gap NAVEEN ( [facility]) calcium level 10.0 mg/dL 8.5-10.1 Calcium Level NAVEEN ( [facility]) alkaline phosphatase 89 U/L 45-117 Alkaline Phosph atase NAVEEN ([facility]) AST/SGOT 10 U/L 7-37 AST/SGOT NAVEEN ([facility]) ALT/SGPT 17 U/L 12-78 ALT/SGPT NAVEEN ([facility]) albumin 4.1 gm/dL 3.2-5.2 Albumin NAVEEN ([facility]) total protein 7.8 gm/dL 6.4-8.2 Total Protein NAVEEN ( [facility]) bilirubin,total 0.5 mg/dL 0.2-1.0 Bilirubin,total ATHE ([facility]) albumin/globulin ratio 1.2-2.2 Below low normal Albumin /globulin Ratio NAVEEN ([facility]) ID Date Data Source [id number] 03/30/2020 02:00:00 PM EST NAVEEN ([facility]) Name Value Range Interpretation Code Description Data Alysa rce(s) Supporting Document(s) white blood count 5.7 10 4.0-10.0 White Blood Count NAVEEN ([facility]) hematocrit 41.8 % 36.0-47.0 Hematocrit NAVEEN ([facility]) hemoglobin 13.7 g/dL 12.0-15.5 Hemoglobin NAVEEN ([facility]) red blood count 4.34 10 4.00-5.40 Red Blood Count ATHE ([facility]) mean corpuscular volume 96.3 fL 80.0-96.0 Above high normal Mean Corpuscular Volume NAVEEN ([facility]) mean corpuscular hemoglobin 31.6 pg 27.0-33.0 Mean Cor puscular Hemoglobin NAVEEN ([facility]) red cell distribution width 11.7 % 11.5-14.5 Red Cell Distribution Width NAVEEN ([facility]) neutrophils % 53.5 % 36.0-66.0 Neutrophils % NAVEEN ( [facility]) mean corpuscular HGB conc 32.8 g/dL 32.0-36.5 Mean Corpu scular HGB Conc NAVEEN ([facility]) platelet count, automated 283 10 150-450 Platelet C ount, Automated NAVEEN ([facility]) mono % 8.9 % 0.0-5.0 Above high normal [place] % NAVEEN ([facility]) lymph % 35.7 % 24.0-44.0 Lymph % NAVEEN ([facility]) eos % 0.9 % 0.0-3.0 Eos % NAVEEN ([facility]) immature granulocyte % 0.0 % 0-3.0 Immature Gran ulocyte % NAVEEN ([facility]) baso % 1.0 % 0.0-1.0 Baso % NAVEEN ([facility]) lymph # 2.0 10 1.5-5.0 Lymph # NAVEEN ([facility]) neutrophils # 3.1 10 1.5-8.5 Neutrophils # NAVEEN ( [facility]) nucleated red blood cell % 0.0 % 0-0 Nucleated Red Blood Cell % NAVEEN ([facility]) baso # 0.1 10 0.0-0.2 Baso # NAVEEN ([facility]) eos # 0.1 10 0.0-0.5 Eos # NAVEEN ([facility]) mono # 0.5 10 0.0-0.8 [place] # NAVEEN ([facility]) ID Date Data Source [id number] 03/30/2020 02:00:00 PM EST NAVEEN ([facility]) Name Value Range Interpretation Code Description Data Alysa rce(s) Supporting Document(s) prolactin 4.4 NG/mL Prolactin NAVEEN ([facility]) ID Date Data Source [id number] 03/30/2020 02:00:00 PM EST NAVEEN ([facility]) Name Value Range Interpretation Code Description Data Alysa rce(s) Supporting Document(s) thyroid stimulating hormone 0.833 uIU/mL 0.358-3.740 Thyroid Stimulating Hormone NAVEEN ([facility]) ID Date Data Source [id number] 03/30/2020 02:00:00 PM EST NAVEEN ([facility]) Name Value Range Interpretation Code Description Data Alysa rce(s) Supporting Document(s) glucose, fasting 86 mg/dL 70-100 Glucose, F[facility] ([facility]) glomerular filtration rate > 60.0 >60 Glomerula r Filtration Rate NAVEEN ([facility]) blood urea nitrogen 11 mg/dL 7-18 Blood Urea Nitro gen NAVEEN ([facility]) sodium level 140 mEq/L 136-145 Sodium Level NAVEEN (No [facility]) creatinine for GFR 0.73 mg/dL 0.55-1.30 Creatinine for GF R NAVEEN ([facility]) calcium level 10.0 mg/dL 8.5-10.1 Calcium Level NAVEEN ( [facility]) carbon dioxide level 29 mEq/L 21-32 Carbon Dioxide Level NAVEEN ([facility]) potassium serum 4.4 mEq/L 3.5-5.1 Potassium Serum ATHE NA ([facility]) chloride level 107 mEq/L 98-107 Chloride Level NAVEEN ([facility]) anion gap 4 mEq/L 8-16 Below low normal Anion Gap NAVEEN ( [facility]) alkaline phosphatase 89 U/L 45-117 Alkaline Phosph atase NAVEEN ([facility]) bilirubin,total 0.5 mg/dL 0.2-1.0 Bilirubin,total ATHE ([facility]) ALT/SGPT 17 U/L 12-78 ALT/SGPT NAVEEN ([facility]) AST/SGOT 10 U/L 7-37 AST/SGOT NAVEEN ([facility]) albumin 4.1 gm/dL 3.2-5.2 Albumin NAVEEN ([facility]) albumin/globulin ratio 1.2-2.2 Below low normal Albumin /globulin Ratio NAVEEN ([facility]) total protein 7.8 gm/dL 6.4-8.2 Total Protein NAVEEN ( [facility]) ID Date Data Source [id number] 03/30/2020 02:00:00 PM EST NAVEEN ([facility]) Name Value Range Interpretation Code Description Data Alysa rce(s) Supporting Document(s) hemoglobin 13.7 g/dL 12.0-15.5 Hemoglobin NAVEEN ([facility]) white blood count 5.7 10 4.0-10.0 White Blood Count NAVEEN ([facility]) red blood count 4.34 10 4.00-5.40 Red Blood Count ATHE ([facility]) mean corpuscular volume 96.3 fL 80.0-96.0 Above high normal Mean Corpuscular Volume NAVEEN ([facility]) hematocrit 41.8 % 36.0-47.0 Hematocrit NAVEEN ([facility]) mean corpuscular hemoglobin 31.6 pg 27.0-33.0 Mean Cor puscular Hemoglobin NAVEEN ([facility]) mean corpuscular HGB conc 32.8 g/dL 32.0-36.5 Mean Corpu scular HGB Conc NAVEEN ([facility]) platelet count, automated 283 10 150-450 Platelet C ount, Automated NAVEEN ([facility]) neutrophils % 53.5 % 36.0-66.0 Neutrophils % ESKO ( [facility]) red cell distribution width 11.7 % 11.5-14.5 Red Cell Distribution Width NAVEEN ([facility]) lymph % 35.7 % 24.0-44.0 Lymph % NAVEEN ([facility]) eos % 0.9 % 0.0-3.0 Eos % NAVEEN ([facility]) baso % 1.0 % 0.0-1.0 Baso % NAVEEN ([facility]) immature granulocyte % 0.0 % 0-3.0 Immature Gran ulocyte % NAVEEN ([facility]) mono % 8.9 % 0.0-5.0 Above high normal [place] % NAVEEN ([facility]) neutrophils # 3.1 10 1.5-8.5 Neutrophils # NAVEEN ( [facility]) nucleated red blood cell % 0.0 % 0-0 Nucleated Red Blood Cell % NAVEEN ([facility]) lymph # 2.0 10 1.5-5.0 Lymph # NAVEEN ([facility]) mono # 0.5 10 0.0-0.8 [place] # NAVEEN ([facility]) baso # 0.1 10 0.0-0.2 Baso # NAVEEN ([facility]) eos # 0.1 10 0.0-0.5 Eos # NAVEEN ([facility]) ID Date Data Source [id number] 03/30/2020 02:00:00 PM EST NAVEEN ([facility]) Name Value Range Interpretation Code Description Data Alysa rce(s) Supporting Document(s) prolactin 4.4 NG/mL Prolactin NAVEEN ([facility]) ID Date Data Source [id number] 03/30/2020 02:00:00 PM EST NAVEEN ([facility]) Name Value Range Interpretation Code Description Data Alysa rce(s) Supporting Document(s) thyroid stimulating hormone 0.833 uIU/mL 0.358-3.740 Thyroid Stimulating Hormone NAVEEN ([facility]) ID Date Data Source [id number] 03/30/2020 02:00:00 PM EST NAVEEN ([facility]) Name Value Range Interpretation Code Description Data Alysa rce(s) Supporting Document(s) glomerular filtration rate > 60.0 >60 Glomerula r Filtration Rate NAVEEN ([facility]) blood urea nitrogen 11 mg/dL 7-18 Blood Urea Nitro gen NAVEEN ([facility]) creatinine for GFR 0.73 mg/dL 0.55-1.30 Creatinine for GF R ESKO ([facility]) glucose, fasting 86 mg/dL 70-100 Glucose, Fasting AT [facility]) chloride level 107 mEq/L 98-107 Chloride Level ESKO ([facility]) carbon dioxide level 29 mEq/L 21-32 Carbon Dioxide Level ESKO ([facility]) potassium serum 4.4 mEq/L 3.5-5.1 Potassium Serum ATHE NA ([facility]) anion gap 4 mEq/L 8-16 Below low normal Anion Gap NAVEEN ( [facility]) sodium level 140 mEq/L 136-145 Sodium Level NAVEEN ([facility]) calcium level 10.0 mg/dL 8.5-10.1 Calcium Level NAVEEN ( [facility]) AST/SGOT 10 U/L 7-37 AST/SGOT NAVEEN ([facility]) alkaline phosphatase 89 U/L 45-117 Alkaline Phosph atase NAVEEN ([facility]) ALT/SGPT 17 U/L 12-78 ALT/SGPT NAVEEN ([facility]) albumin 4.1 gm/dL 3.2-5.2 Albumin NAVEEN ([facility]) bilirubin,total 0.5 mg/dL 0.2-1.0 Bilirubin,total ATHE NA ([facility]) albumin/globulin ratio 1.2-2.2 Below low normal Albumin /globulin Ratio NAVEEN ([facility]) total protein 7.8 gm/dL 6.4-8.2 Total Protein NAVEEN ( [facility]) ID Date Data Source [id number] 03/30/2020 02:00:00 PM EST NAVEEN ([facility]) Name Value Range Interpretation Code Description Data Alysa rce(s) Supporting Document(s) hemoglobin 13.7 g/dL 12.0-15.5 Hemoglobin NAVEEN ([facility]) white blood count 5.7 10 4.0-10.0 White Blood Count NAVEEN ([facility]) red blood count 4.34 10 4.00-5.40 Red Blood Count ATHE ([facility]) hematocrit 41.8 % 36.0-47.0 Hematocrit NAVEEN ([facility]) mean corpuscular HGB conc 32.8 g/dL 32.0-36.5 Mean Corpu scular HGB Conc NAVEEN ([facility]) mean corpuscular volume 96.3 fL 80.0-96.0 Above high normal Mean Corpuscular Volume NAVEEN ([facility]) mean corpuscular hemoglobin 31.6 pg 27.0-33.0 Mean Cor puscular Hemoglobin NAVEEN ([facility]) neutrophils % 53.5 % 36.0-66.0 Neutrophils % NAVEEN ( [facility]) platelet count, automated 283 10 150-450 Platelet C ount, Automated NAVEEN ([facility]) red cell distribution width 11.7 % 11.5-14.5 Red Cell Distribution Width NAVEEN ([facility]) mono % 8.9 % 0.0-5.0 Above high normal [place] % NAVEEN ([facility]) baso % 1.0 % 0.0-1.0 Baso % NAVEEN ([facility]) lymph % 35.7 % 24.0-44.0 Lymph % NAVEEN ([facility]) eos % 0.9 % 0.0-3.0 Eos % NAVEEN ([facility]) immature granulocyte % 0.0 % 0-3.0 Immature Gran ulocyte % NAVEEN ([facility]) neutrophils # 3.1 10 1.5-8.5 Neutrophils # NAVEEN ( [facility]) nucleated red blood cell % 0.0 % 0-0 Nucleated Red Blood Cell % NAVEEN ([facility]) lymph # 2.0 10 1.5-5.0 Lymph # NAVEEN ([facility]) eos # 0.1 10 0.0-0.5 Eos # NAVEEN ([facility]) baso # 0.1 10 0.0-0.2 Baso # NAVEEN ([facility]) mono # 0.5 10 0.0-0.8 [place] # NAVEEN ([facility]) ID Date Data Source [id number] 03/30/2020 02:00:00 PM EST NAVEEN ([facility]) Name Value Range Interpretation Code Description Data Alysa rce(s) Supporting Document(s) prolactin 4.4 NG/mL Prolactin NAVEEN ([facility]) ID Date Data Source [id number] 03/30/2020 02:00:00 PM EST NAVEEN ([facility]) Name Value Range Interpretation Code Description Data Alysa rce(s) Supporting Document(s) thyroid stimulating hormone 0.833 uIU/mL 0.358-3.740 Thyroid Stimulating Hormone NAVEEN ([facility]) ID Date Data Source [id number] 03/30/2020 02:00:00 PM EST NAVEEN ([facility]) Name Value Range Interpretation Code Description Data Alysa rce(s) Supporting Document(s) glomerular filtration rate > 60.0 >60 Glomerula r Filtration Rate NAVEEN ([facility]) sodium level 140 mEq/L 136-145 Sodium Level NAVEEN ([facility]) glucose, fasting 86 mg/dL 70-100 Glucose, F[facility] ([facility]) blood urea nitrogen 11 mg/dL 7-18 Blood Urea Nitro gen NAVEEN ([facility]) creatinine for GFR 0.73 mg/dL 0.55-1.30 Creatinine for GF R NAVEEN ([facility]) carbon dioxide level 29 mEq/L 21-32 Carbon Dioxide Level NAVEEN ([facility]) anion gap 4 mEq/L 8-16 Below low normal Anion Gap NAVEEN ( [facility]) potassium serum 4.4 mEq/L 3.5-5.1 Potassium Serum ATHE ([facility]) chloride level 107 mEq/L 98-107 Chloride Level NAVEEN ([facility]) ALT/SGPT 17 U/L 12-78 ALT/SGPT NAVEEN ([facility]) alkaline phosphatase 89 U/L 45-117 Alkaline Phosph atase NAVEEN ([facility]) calcium level 10.0 mg/dL 8.5-10.1 Calcium Level NAVEEN ( [facility]) AST/SGOT 10 U/L 7-37 AST/SGOT NAVEEN ([facility]) bilirubin,total 0.5 mg/dL 0.2-1.0 Bilirubin,total ATHE ([facility]) albumin/globulin ratio 1.2-2.2 Below low normal Albumin /globulin Ratio NAVEEN ([facility]) total protein 7.8 gm/dL 6.4-8.2 Total Protein NAVEEN ( [facility]) albumin 4.1 gm/dL 3.2-5.2 Albumin NAVEEN ([facility]) ID Date Data Source [id number] 03/30/2020 02:00:00 PM EST NAVEEN ([facility]) Name Value Range Interpretation Code Description Data Alysa rce(s) Supporting Document(s) white blood count 5.7 10 4.0-10.0 White Blood Count NAVEEN ([facility]) hematocrit 41.8 % 36.0-47.0 Hematocrit NAVEEN ([facility]) hemoglobin 13.7 g/dL 12.0-15.5 Hemoglobin NAVEEN ([facility]) red blood count 4.34 10 4.00-5.40 Red Blood Count ATHE NA ([facility]) mean corpuscular HGB conc 32.8 g/dL 32.0-36.5 Mean Corpu scular HGB Conc NAVEEN ([facility]) mean corpuscular hemoglobin 31.6 pg 27.0-33.0 Mean Cor puscular Hemoglobin NAVEEN ([facility]) red cell distribution width 11.7 % 11.5-14.5 Red Cell Distribution Width NAVEEN ([facility]) mean corpuscular volume 96.3 fL 80.0-96.0 Above high normal Mean Corpuscular Volume NAVEEN ([facility]) neutrophils % 53.5 % 36.0-66.0 Neutrophils % NAVEEN ( [facility]) lymph % 35.7 % 24.0-44.0 Lymph % NAVEEN ([facility]) platelet count, automated 283 10 150-450 Platelet C ount, Automated NAVEEN ([facility]) mono % 8.9 % 0.0-5.0 Above high normal [place] % NAVEEN ([facility]) eos % 0.9 % 0.0-3.0 Eos % NAVEEN ([facility]) nucleated red blood cell % 0.0 % 0-0 Nucleated Red Blood Cell % NAVEEN ([facility]) immature granulocyte % 0.0 % 0-3.0 Immature Gran ulocyte % NAVEEN ([facility]) baso % 1.0 % 0.0-1.0 Baso % NAVEEN ([facility]) eos # 0.1 10 0.0-0.5 Eos # NAVEEN ([facility]) mono # 0.5 10 0.0-0.8 [place] # NAVEEN ([facility]) neutrophils # 3.1 10 1.5-8.5 Neutrophils # NAVEEN ( [facility]) lymph # 2.0 10 1.5-5.0 Lymph # NAVEEN ([facility]) baso # 0.1 10 0.0-0.2 Baso # NAVEEN ([facility]) ID Date Data Source [id number] 03/30/2020 02:00:00 PM EST NAVEEN ([facility]) Name Value Range Interpretation Code Description Data Alysa rce(s) Supporting Document(s) thyroid stimulating hormone 0.833 uIU/mL 0.358-3.740 Thyroid Stimulating Hormone NAVEEN ([facility]) ID Date Data Source [id number] 03/30/2020 02:00:00 PM EST NAVEEN ([facility]) Name Value Range Interpretation Code Description Data Alysa rce(s) Supporting Document(s) blood urea nitrogen 11 mg/dL 7-18 Blood Urea Nitro gen NAVEEN ([facility]) glomerular filtration rate > 60.0 >60 Glomerula r Filtration Rate NAVEEN ([facility]) creatinine for GFR 0.73 mg/dL 0.55-1.30 Creatinine for GF R ESKO ([facility]) glucose, fasting 86 mg/dL 70-100 Glucose, Fasting AT [facility]) carbon dioxide level 29 mEq/L 21-32 Carbon Dioxide Level NAVEEN ([facility]) chloride level 107 mEq/L 98-107 Chloride Level NAVEEN ([facility]) sodium level 140 mEq/L 136-145 Sodium Level NAVEEN (No [facility]) potassium serum 4.4 mEq/L 3.5-5.1 Potassium Serum ATHE NA ([facility]) anion gap 4 mEq/L 8-16 Below low normal Anion Gap NAVEEN ( [facility]) alkaline phosphatase 89 U/L 45-117 Alkaline Phosph atase NAVEEN ([facility]) AST/SGOT 10 U/L 7-37 AST/SGOT NAVEEN ([facility]) ALT/SGPT 17 U/L 12-78 ALT/SGPT NAVEEN ([facility]) calcium level 10.0 mg/dL 8.5-10.1 Calcium Level NAVEEN ( [facility]) bilirubin,total 0.5 mg/dL 0.2-1.0 Bilirubin,total ATHE NA ([facility]) albumin 4.1 gm/dL 3.2-5.2 Albumin NAVEEN ([facility]) total protein 7.8 gm/dL 6.4-8.2 Total Protein NAVEEN ( [facility]) albumin/globulin ratio 1.2-2.2 Below low normal Albumin /globulin Ratio NAVEEN ([facility]) ID Date Data Source [id number] 03/30/2020 02:00:00 PM EST NAVEEN ([facility]) Name Value Range Interpretation Code Description Data Laysa rce(s) Supporting Document(s) white blood count 5.7 10 4.0-10.0 White Blood Count ANVEEN ([facility]) hematocrit 41.8 % 36.0-47.0 Hematocrit NAVEEN ([facility]) hemoglobin 13.7 g/dL 12.0-15.5 Hemoglobin NAVEEN ([facility]) mean corpuscular volume 96.3 fL 80.0-96.0 Above high normal Mean Corpuscular Volume NAVEEN ([facility]) red blood count 4.34 10 4.00-5.40 Red Blood Count ATHE NA ([facility]) platelet count, automated 283 10 150-450 Platelet C ount, Automated NAVEEN ([facility]) red cell distribution width 11.7 % 11.5-14.5 Red Cell Distribution Width NAVEEN ([facility]) mean corpuscular hemoglobin 31.6 pg 27.0-33.0 Mean Cor puscular Hemoglobin NAVEEN ([facility]) mean corpuscular HGB conc 32.8 g/dL 32.0-36.5 Mean Corpu scular HGB Conc NAVEEN ([facility]) neutrophils % 53.5 % 36.0-66.0 Neutrophils % NAVEEN ( [facility]) mono % 8.9 % 0.0-5.0 Above high normal [place] % NAVEEN ([facility]) eos % 0.9 % 0.0-3.0 Eos % NAVEEN ([facility]) lymph % 35.7 % 24.0-44.0 Lymph % NAVEEN ([facility]) neutrophils # 3.1 10 1.5-8.5 Neutrophils # NAVEEN ( [facility]) immature granulocyte % 0.0 % 0-3.0 Immature Gran ulocyte % NAVEEN ([facility]) nucleated red blood cell % 0.0 % 0-0 Nucleated Red Blood Cell % NAVEEN ([facility]) baso % 1.0 % 0.0-1.0 Baso % NAVEEN ([facility]) baso # 0.1 10 0.0-0.2 Baso # NAVEEN ([facility]) mono # 0.5 10 0.0-0.8 [place] # NAVEEN ([facility]) eos # 0.1 10 0.0-0.5 Eos # NAVEEN ([facility]) lymph # 2.0 10 1.5-5.0 Lymph # NAVEEN ([facility]) ID Date Data Source [id number] 03/30/2020 02:00:00 PM EST NAVEEN ([facility]) Name Value Range Interpretation Code Description Data Alysa rce(s) Supporting Document(s) prolactin 4.4 NG/mL Prolactin NAVEEN ([facility]) ID Date Data Source [id number] 03/30/2020 02:00:00 PM EST NAVEEN ([facility]) Name Value Range Interpretation Code Description Data Alysa rce(s) Supporting Document(s) thyroid stimulating hormone 0.833 uIU/mL 0.358-3.740 Thyroid Stimulating Hormone NAVEEN ([facility]) ID Date Data Source [id number] 03/30/2020 02:00:00 PM EST NAVEEN ([facility]) Name Value Range Interpretation Code Description Data Alysa rce(s) Supporting Document(s) glomerular filtration rate > 60.0 >60 Glomerula r Filtration Rate NAVEEN ([facility]) glucose, fasting 86 mg/dL 70-100 Glucose, [facility] ([facility]) creatinine for GFR 0.73 mg/dL 0.55-1.30 Creatinine for GF R NAVEEN ([facility]) blood urea nitrogen 11 mg/dL 7-18 Blood Urea Nitro gen NAVEEN ([facility]) carbon dioxide level 29 mEq/L 21-32 Carbon Dioxide Level NAVEEN ([facility]) chloride level 107 mEq/L 98-107 Chloride Level NAVEEN ([facility]) sodium level 140 mEq/L 136-145 Sodium Level NAVEEN ([facility]) potassium serum 4.4 mEq/L 3.5-5.1 Potassium Serum ATHE NA ([facility]) anion gap 4 mEq/L 8-16 Below low normal Anion Gap NAVEEN ( [facility]) ALT/SGPT 17 U/L 12-78 ALT/SGPT NAVEEN ([facility]) AST/SGOT 10 U/L 7-37 AST/SGOT NAVEEN ([facility]) calcium level 10.0 mg/dL 8.5-10.1 Calcium Level NAVEEN ( [facility]) albumin/globulin ratio 1.2-2.2 Below low normal Albumin /globulin Ratio NAVEEN ([facility]) total protein 7.8 gm/dL 6.4-8.2 Total Protein NAVEEN ( [facility]) alkaline phosphatase 89 U/L 45-117 Alkaline Phosph atase NAVEEN ([facility]) bilirubin,total 0.5 mg/dL 0.2-1.0 Bilirubin,total ATHE NA ([facility]) albumin 4.1 gm/dL 3.2-5.2 Albumin NAVEEN ([facility]) ID Date Data Source [id number] 03/30/2020 02:00:00 PM EST NAVEEN ([facility]) Name Value Range Interpretation Code Description Data Alysa rce(s) Supporting Document(s) red blood count 4.34 10 4.00-5.40 Red Blood Count ATHE NA ([facility]) white blood count 5.7 10 4.0-10.0 White Blood Count NAVEEN ([facility]) mean corpuscular hemoglobin 31.6 pg 27.0-33.0 Mean Cor puscular Hemoglobin NAVEEN ([facility]) hemoglobin 13.7 g/dL 12.0-15.5 Hemoglobin NAVEEN ([facility]) mean corpuscular volume 96.3 fL 80.0-96.0 Above high normal Mean Corpuscular Volume NAVEEN ([facility]) hematocrit 41.8 % 36.0-47.0 Hematocrit NAVEEN ([facility]) neutrophils % 53.5 % 36.0-66.0 Neutrophils % NAVEEN ( [facility]) red cell distribution width 11.7 % 11.5-14.5 Red Cell Distribution Width NAVEEN ([facility]) mean corpuscular HGB conc 32.8 g/dL 32.0-36.5 Mean Corpu scular HGB Conc NAVEEN ([facility]) platelet count, automated 283 10 150-450 Platelet C ount, Automated NAVEEN ([facility]) lymph % 35.7 % 24.0-44.0 Lymph % NAVEEN ([facility]) mono % 8.9 % 0.0-5.0 Above high normal [place] % NAVEEN ([facility]) eos % 0.9 % 0.0-3.0 Eos % NAVEEN ([facility]) baso % 1.0 % 0.0-1.0 Baso % NAVEEN ([facility]) lymph # 2.0 10 1.5-5.0 Lymph # NAVEEN ([facility]) immature granulocyte % 0.0 % 0-3.0 Immature Gran ulocyte % NAVEEN ([facility]) nucleated red blood cell % 0.0 % 0-0 Nucleated Red Blood Cell % NAVEEN ([facility]) neutrophils # 3.1 10 1.5-8.5 Neutrophils # NAVEEN ( [facility]) eos # 0.1 10 0.0-0.5 Eos # NAVEEN ([facility]) baso # 0.1 10 0.0-0.2 Baso # NAVEEN ([facility]) mono # 0.5 10 0.0-0.8 [place] # NAVEEN ([facility]) ID Date Data Source [id number] 03/30/2020 02:00:00 PM EST NAVEEN ([facility]) Name Value Range Interpretation Code Description Data Alysa rce(s) Supporting Document(s) prolactin 4.4 NG/mL Prolactin NAVEEN ([facility]) ID Date Data Source [id number] 03/30/2020 02:00:00 PM EST NAVEEN ([facility]) Name Value Range Interpretation Code Description Data Alysa rce(s) Supporting Document(s) thyroid stimulating hormone 0.833 uIU/mL 0.358-3.740 Thyroid Stimulating Hormone ESKO ([facility]) ID Date Data Source [id number] 03/30/2020 02:00:00 PM EST NAVEEN ([facility]) Name Value Range Interpretation Code Description Data Alysa rce(s) Supporting Document(s) glucose, fasting 86 mg/dL 70-100 Glucose, Fasting AT [facility]) glomerular filtration rate > 60.0 >60 Glomerula r Filtration Rate ESKO ([facility]) blood urea nitrogen 11 mg/dL 7-18 Blood Urea Nitro gen NAVEEN ([facility]) creatinine for GFR 0.73 mg/dL 0.55-1.30 Creatinine for GF R ESKO ([facility]) sodium level 140 mEq/L 136-145 Sodium Level NAVEEN ([facility]) carbon dioxide level 29 mEq/L 21-32 Carbon Dioxide Level ESKO ([facility]) chloride level 107 mEq/L 98-107 Chloride Level ESKO ([facility]) potassium serum 4.4 mEq/L 3.5-5.1 Potassium Serum ATH NA ([facility]) calcium level 10.0 mg/dL 8.5-10.1 Calcium Level NAVEEN ( [facility]) anion gap 4 mEq/L 8-16 Below low normal Anion Gap NAVEEN ( [facility]) AST/SGOT 10 U/L 7-37 AST/SGOT NAVEEN ([facility]) ALT/SGPT 17 U/L 12-78 ALT/SGPT NAVEEN ([facility]) bilirubin,total 0.5 mg/dL 0.2-1.0 Bilirubin,total ATHE NA ([facility]) alkaline phosphatase 89 U/L 45-117 Alkaline Phosph atase NAVEEN ([facility]) total protein 7.8 gm/dL 6.4-8.2 Total Protein NAVEEN ( [facility]) albumin/globulin ratio 1.2-2.2 Below low normal Albumin /globulin Ratio NAVEEN ([facility]) albumin 4.1 gm/dL 3.2-5.2 Albumin NAVEEN ([facility]) ID Date Data Source [id number] 03/30/2020 02:00:00 PM EST NAVEEN ([facility]) Name Value Range Interpretation Code Description Data Alysa rce(s) Supporting Document(s) white blood count 5.7 10 4.0-10.0 White Blood Count NAVEEN ([facility]) red blood count 4.34 10 4.00-5.40 Red Blood Count ATHE NA ([facility]) hemoglobin 13.7 g/dL 12.0-15.5 Hemoglobin NAVEEN ([facility]) hematocrit 41.8 % 36.0-47.0 Hematocrit NAVEEN ([facility]) mean corpuscular volume 96.3 fL 80.0-96.0 Above high normal Mean Corpuscular Volume NAVEEN ([facility]) mean corpuscular hemoglobin 31.6 pg 27.0-33.0 Mean Cor puscular Hemoglobin NAVEEN ([facility]) red cell distribution width 11.7 % 11.5-14.5 Red Cell Distribution Width NAVEEN ([facility]) platelet count, automated 283 10 150-450 Platelet C ount, Automated NAVEEN ([facility]) mean corpuscular HGB conc 32.8 g/dL 32.0-36.5 Mean Corpu scular HGB Conc NAVEEN ([facility]) lymph % 35.7 % 24.0-44.0 Lymph % NAVEEN ([facility]) neutrophils % 53.5 % 36.0-66.0 Neutrophils % NAVEEN ( [facility]) mono % 8.9 % 0.0-5.0 Above high normal [place] % NAVEEN ([facility]) baso % 1.0 % 0.0-1.0 Baso % ESKO ([facility]) nucleated red blood cell % 0.0 % 0-0 Nucleated Red Blood Cell % NAVEEN ([facility]) eos % 0.9 % 0.0-3.0 Eos % ESKO ([facility]) immature granulocyte % 0.0 % 0-3.0 Immature Gran ulocyte % ESKO ([facility]) neutrophils # 3.1 10 1.5-8.5 Neutrophils # NAVEEN ( [facility]) lymph # 2.0 10 1.5-5.0 Lymph # NAVEEN ([facility]) mono # 0.5 10 0.0-0.8 [place] # NAVEEN ([facility]) eos # 0.1 10 0.0-0.5 Eos # NAVEEN ([facility]) baso # 0.1 10 0.0-0.2 Baso # NAVEEN ([facility]) ID Date Data Source [id number] 03/30/2020 02:00:00 PM EST NAVEEN ([facility]) Name Value Range Interpretation Code Description Data Alysa rce(s) Supporting Document(s) prolactin 4.4 NG/mL Prolactin NAVEEN ([facility]) ID Date Data Source [id number] 03/30/2020 02:00:00 PM EST NAVEEN ([facility]) Name Value Range Interpretation Code Description Data Alysa rce(s) Supporting Document(s) thyroid stimulating hormone 0.833 uIU/mL 0.358-3.740 Thyroid Stimulating Hormone ESKO ([facility]) ID Date Data Source [id number] 03/30/2020 02:00:00 PM EST NAVEEN ([facility]) Name Value Range Interpretation Code Description Data Alysa rce(s) Supporting Document(s) glucose, fasting 86 mg/dL 70-100 Glucose, Fasting AT [facility]) blood urea nitrogen 11 mg/dL 7-18 Blood Urea Nitro gen NAVEEN ([facility]) glomerular filtration rate > 60.0 >60 Glomerula r Filtration Rate ESKO ([facility]) creatinine for GFR 0.73 mg/dL 0.55-1.30 Creatinine for GF R ESKO ([facility]) sodium level 140 mEq/L 136-145 Sodium Level NAVEEN (No [facility]) chloride level 107 mEq/L 98-107 Chloride Level NAVEEN ([facility]) carbon dioxide level 29 mEq/L 21-32 Carbon Dioxide Level NAVEEN ([facility]) potassium serum 4.4 mEq/L 3.5-5.1 Potassium Serum ATHE ([facility]) AST/SGOT 10 U/L 7-37 AST/SGOT NAVEEN ([facility]) anion gap 4 mEq/L 8-16 Below low normal Anion Gap NAVEEN ( [facility]) calcium level 10.0 mg/dL 8.5-10.1 Calcium Level NAVEEN ( [facility]) bilirubin,total 0.5 mg/dL 0.2-1.0 Bilirubin,total ATHE ([facility]) ALT/SGPT 17 U/L 12-78 ALT/SGPT NAVEEN ([facility]) total protein 7.8 gm/dL 6.4-8.2 Total Protein NAVEEN ( [facility]) alkaline phosphatase 89 U/L 45-117 Alkaline Phosph atase NAVEEN ([facility]) albumin/globulin ratio 1.2-2.2 Below low normal Albumin /globulin Ratio NAVEEN ([facility]) albumin 4.1 gm/dL 3.2-5.2 Albumin NAVEEN ([facility]) ID Date Data Source [id number] 03/30/2020 02:00:00 PM EST NAVEEN ([facility]) Name Value Range Interpretation Code Description Data Alysa rce(s) Supporting Document(s) white blood count 5.7 10 4.0-10.0 White Blood Count NAVEEN ([facility]) hemoglobin 13.7 g/dL 12.0-15.5 Hemoglobin NAVEEN ([facility]) red blood count 4.34 10 4.00-5.40 Red Blood Count ATHE NA ([facility]) mean corpuscular hemoglobin 31.6 pg 27.0-33.0 Mean Cor puscular Hemoglobin NAVEEN ([facility]) mean corpuscular volume 96.3 fL 80.0-96.0 Above high normal Mean Corpuscular Volume NAVEEN ([facility]) hematocrit 41.8 % 36.0-47.0 Hematocrit NAVEEN ([facility]) platelet count, automated 283 10 150-450 Platelet C ount, Automated NAVEEN ([facility]) red cell distribution width 11.7 % 11.5-14.5 Red Cell Distribution Width NAVEEN ([facility]) mean corpuscular HGB conc 32.8 g/dL 32.0-36.5 Mean Corpu scular HGB Conc NAVEEN ([facility]) lymph % 35.7 % 24.0-44.0 Lymph % NAVEEN ([facility]) neutrophils % 53.5 % 36.0-66.0 Neutrophils % NAVEEN ( [facility]) baso % 1.0 % 0.0-1.0 Baso % NAVEEN ([facility]) mono % 8.9 % 0.0-5.0 Above high normal [place] % NAVEEN ([facility]) eos % 0.9 % 0.0-3.0 Eos % NAVEEN ([facility]) nucleated red blood cell % 0.0 % 0-0 Nucleated Red Blood Cell % NAVEEN ([facility]) immature granulocyte % 0.0 % 0-3.0 Immature Gran ulocyte % NAVEEN ([facility]) neutrophils # 3.1 10 1.5-8.5 Neutrophils # NAVEEN ( [facility]) lymph # 2.0 10 1.5-5.0 Lymph # NAVEEN ([facility]) eos # 0.1 10 0.0-0.5 Eos # NAVEEN ([facility]) mono # 0.5 10 0.0-0.8 [place] # NAVEEN ([facility]) baso # 0.1 10 0.0-0.2 Baso # NAVEEN ([facility]) ID Date Data Source [id number] 03/30/2020 02:00:00 PM EST NAVEEN ([facility]) Name Value Range Interpretation Code Description Data Alysa rce(s) Supporting Document(s) prolactin 4.4 NG/mL Prolactin ESKO ([facility]) ID Date Data Source [id number] 03/30/2020 02:00:00 PM EST NAVEEN ([facility]) Name Value Range Interpretation Code Description Data Alysa rce(s) Supporting Document(s) thyroid stimulating hormone 0.833 uIU/mL 0.358-3.740 Thyroid Stimulating Hormone ESKO ([facility]) ID Date Data Source [id number] 03/30/2020 02:00:00 PM EST NAVEEN ([facility]) Name Value Range Interpretation Code Description Data Alysa rce(s) Supporting Document(s) glucose, fasting 86 mg/dL 70-100 Glucose, [facility] ([facility]) blood urea nitrogen 11 mg/dL 7-18 Blood Urea Nitro gen ESKO ([facility]) glomerular filtration rate > 60.0 >60 Glomerula r Filtration Rate ESKO ([facility]) creatinine for GFR 0.73 mg/dL 0.55-1.30 Creatinine for GF R ESKO ([facility]) potassium serum 4.4 mEq/L 3.5-5.1 Potassium Serum ATHE NA ([facility]) sodium level 140 mEq/L 136-145 Sodium Level NAVEEN (No [facility]) anion gap 4 mEq/L 8-16 Below low normal Anion Gap NAVEEN ( [facility]) calcium level 10.0 mg/dL 8.5-10.1 Calcium Level NAVEEN ( [facility]) chloride level 107 mEq/L 98-107 Chloride Level NAVEEN ([facility]) carbon dioxide level 29 mEq/L 21-32 Carbon Dioxide Level NAVEEN ([facility]) total protein 7.8 gm/dL 6.4-8.2 Total Protein NAVEEN ( [facility]) alkaline phosphatase 89 U/L 45-117 Alkaline Phosph atase NAVEEN ([facility]) ALT/SGPT 17 U/L 12-78 ALT/SGPT NAVEEN ([facility]) bilirubin,total 0.5 mg/dL 0.2-1.0 Bilirubin,total ATHE NA ([facility]) AST/SGOT 10 U/L 7-37 AST/SGOT NAVEEN ([facility]) albumin 4.1 gm/dL 3.2-5.2 Albumin NAVEEN ([facility]) albumin/globulin ratio 1.2-2.2 Below low normal Albumin /globulin Ratio NAVEEN ([facility]) ID Date Data Source [id number] 03/30/2020 02:00:00 PM EST NAVEEN ([facility]) Name Value Range Interpretation Code Description Data Alysa rce(s) Supporting Document(s) white blood count 5.7 10 4.0-10.0 White Blood Count NAVEEN ([facility]) red blood count 4.34 10 4.00-5.40 Red Blood Count ATHE ([facility]) hemoglobin 13.7 g/dL 12.0-15.5 Hemoglobin NAVEEN ([facility]) hematocrit 41.8 % 36.0-47.0 Hematocrit NAVEEN ([facility]) mean corpuscular volume 96.3 fL 80.0-96.0 Above high normal Mean Corpuscular Volume NAVEEN ([facility]) mean corpuscular hemoglobin 31.6 pg 27.0-33.0 Mean Cor puscular Hemoglobin NAVEEN ([facility]) mean corpuscular HGB conc 32.8 g/dL 32.0-36.5 Mean Corpu scular HGB Conc NAVEEN ([facility]) platelet count, automated 283 10 150-450 Platelet C ount, Automated NAVEEN ([facility]) red cell distribution width 11.7 % 11.5-14.5 Red Cell Distribution Width NAVEEN ([facility]) mono % 8.9 % 0.0-5.0 Above high normal [place] % ESKO ([facility]) lymph % 35.7 % 24.0-44.0 Lymph % ESKO ([facility]) eos % 0.9 % 0.0-3.0 Eos % ESKO ([facility]) neutrophils % 53.5 % 36.0-66.0 Neutrophils % ESKO ( [facility]) immature granulocyte % 0.0 % 0-3.0 Immature Gran ulocyte % NAVEEN ([facility]) neutrophils # 3.1 10 1.5-8.5 Neutrophils # NAVEEN ( [facility]) nucleated red blood cell % 0.0 % 0-0 Nucleated Red Blood Cell % NAVEEN ([facility]) baso % 1.0 % 0.0-1.0 Baso % NAVEEN ([facility]) eos # 0.1 10 0.0-0.5 Eos # NAVEEN ([facility]) mono # 0.5 10 0.0-0.8 [place] # NAVEEN ([facility]) lymph # 2.0 10 1.5-5.0 Lymph # ESKO ([facility]) baso # 0.1 10 0.0-0.2 Baso # NAVEEN ([facility]) ID Date Data Source [id number] 03/30/2020 02:00:00 PM EST NAVEEN ([facility]) Name Value Range Interpretation Code Description Data Alysa rce(s) Supporting Document(s) prolactin 4.4 NG/mL Prolactin NAVEEN ([facility]) ID Date Data Source [id number] 03/30/2020 02:00:00 PM EST NAVEEN ([facility]) Name Value Range Interpretation Code Description Data Alysa rce(s) Supporting Document(s) thyroid stimulating hormone 0.833 uIU/mL 0.358-3.740 Thyroid Stimulating Hormone NAVEEN ([facility]) ID Date Data Source [id number] 03/30/2020 02:00:00 PM EST NAVEEN ([facility]) Name Value Range Interpretation Code Description Data Alysa rce(s) Supporting Document(s) glucose, fasting 86 mg/dL 70-100 Glucose, Fasting AT [facility]) blood urea nitrogen 11 mg/dL 7-18 Blood Urea Nitro gen [facility]EN ([facility] [facility]) potassium serum 4.4 mEq/L 3.5-5.1 Potassium Serum ATHE NA ([facility]) creatinine for GFR 0.73 mg/dL 0.55-1.30 Creatinine for GF R NAVEEN ([facility]) sodium level 140 mEq/L 136-145 Sodium Level NAVEEN ([facility]) glomerular filtration rate > 60.0 >60 Glomerula r Filtration Rate NAVEEN ([facility]) carbon dioxide level 29 mEq/L 21-32 Carbon Dioxide Level NAVEEN ([facility]) chloride level 107 mEq/L 98-107 Chloride Level NAVEEN ([facility]) anion gap 4 mEq/L 8-16 Below low normal Anion Gap NAVEEN ( [facility]) AST/SGOT 10 U/L 7-37 AST/SGOT NAVEEN ([facility]) calcium level 10.0 mg/dL 8.5-10.1 Calcium Level NAVEEN ( [facility]) alkaline phosphatase 89 U/L 45-117 Alkaline Phosph atase NAVEEN ([facility]) ALT/SGPT 17 U/L 12-78 ALT/SGPT NAVEEN ([facility]) total protein 7.8 gm/dL 6.4-8.2 Total Protein NAVEEN ( [facility]) bilirubin,total 0.5 mg/dL 0.2-1.0 Bilirubin,total ATHE NA ([facility]) albumin 4.1 gm/dL 3.2-5.2 Albumin NAVEEN ([facility]) albumin/globulin ratio 1.2-2.2 Below low normal Albumin /globulin Ratio NAVEEN ([facility]) ID Date Data Source [id number] 03/30/2020 02:00:00 PM EST NAVEEN ([facility]) Name Value Range Interpretation Code Description Data Alysa rce(s) Supporting Document(s) red blood count 4.34 10 4.00-5.40 Red Blood Count ATHE NA ([facility]) white blood count 5.7 10 4.0-10.0 White Blood Count NAVEEN ([facility]) hemoglobin 13.7 g/dL 12.0-15.5 Hemoglobin NAVEEN ([facility]) mean corpuscular volume 96.3 fL 80.0-96.0 Above high normal Mean Corpuscular Volume NAVEEN ([facility]) hematocrit 41.8 % 36.0-47.0 Hematocrit NAVEEN ([facility]) mean corpuscular hemoglobin 31.6 pg 27.0-33.0 Mean Cor puscular Hemoglobin NAVEEN ([facility]) platelet count, automated 283 10 150-450 Platelet C ount, Automated NAVEEN ([facility]) red cell distribution width 11.7 % 11.5-14.5 Red Cell Distribution Width NAVEEN ([facility]) mean corpuscular HGB conc 32.8 g/dL 32.0-36.5 Mean Corpu scular HGB Conc NAVEEN ([facility]) mono % 8.9 % 0.0-5.0 Above high normal [place] % NAVEEN ([facility]) lymph % 35.7 % 24.0-44.0 Lymph % NAVEEN ([facility]) neutrophils % 53.5 % 36.0-66.0 Neutrophils % NAVEEN ( [facility]) immature granulocyte % 0.0 % 0-3.0 Immature Gran ulocyte % NAVEEN ([facility]) eos % 0.9 % 0.0-3.0 Eos % NAVEEN ([facility]) nucleated red blood cell % 0.0 % 0-0 Nucleated Red Blood Cell % NAVEEN ([facility]) baso % 1.0 % 0.0-1.0 Baso % NAVEEN ([facility]) lymph # 2.0 10 1.5-5.0 Lymph # NAVEEN ([facility]) neutrophils # 3.1 10 1.5-8.5 Neutrophils # NAVEEN ( [facility]) mono # 0.5 10 0.0-0.8 [place] # NAVEEN ([facility]) eos # 0.1 10 0.0-0.5 Eos # NAVEEN ([facility]) baso # 0.1 10 0.0-0.2 Baso # NAVEEN ([facility]) ID Date Data Source [id number] 03/30/2020 02:00:00 PM EST NAVEEN ([facility]) Name Value Range Interpretation Code Description Data Alysa rce(s) Supporting Document(s) prolactin 4.4 NG/mL Prolactin NAVEEN ([facility]) ID Date Data Source [id number] 03/30/2020 02:00:00 PM EST NAVEEN ([facility]) Name Value Range Interpretation Code Description Data Alysa rce(s) Supporting Document(s) thyroid stimulating hormone 0.833 uIU/mL 0.358-3.740 Thyroid Stimulating Hormone NAVEEN ([facility]) ID Date Data Source [id number] 03/30/2020 02:00:00 PM EST NAVEEN ([facility]) Name Value Range Interpretation Code Description Data Alysa rce(s) Supporting Document(s) glucose, fasting 86 mg/dL 70-100 Glucose, Fasting AT [facility] ([facility]) blood urea nitrogen 11 mg/dL 7-18 Blood Urea Nitro gen NAVEEN ([facility]) sodium level 140 mEq/L 136-145 Sodium Level NAVEEN ([facility]) glomerular filtration rate > 60.0 >60 Glomerula r Filtration Rate NAVEEN ([facility]) creatinine for GFR 0.73 mg/dL 0.55-1.30 Creatinine for GF R NAVEEN ([facility]) potassium serum 4.4 mEq/L 3.5-5.1 Potassium Serum ATHE NA ([facility]) anion gap 4 mEq/L 8-16 Below low normal Anion Gap NAVEEN ( [facility]) chloride level 107 mEq/L 98-107 Chloride Level NAVEEN ([facility]) carbon dioxide level 29 mEq/L 21-32 Carbon Dioxide Level NAVEEN ([facility]) AST/SGOT 10 U/L 7-37 AST/SGOT NAVEEN ([facility]) ALT/SGPT 17 U/L 12-78 ALT/SGPT NAVEEN ([facility]) bilirubin,total 0.5 mg/dL 0.2-1.0 Bilirubin,total ATHE ([facility]) alkaline phosphatase 89 U/L 45-117 Alkaline Phosph atase NAVEEN ([facility]) calcium level 10.0 mg/dL 8.5-10.1 Calcium Level NAVEEN ( [facility]) total protein 7.8 gm/dL 6.4-8.2 Total Protein NAVEEN ( [facility]) albumin 4.1 gm/dL 3.2-5.2 Albumin NAVEEN ([facility]) albumin/globulin ratio 1.2-2.2 Below low normal Albumin /globulin Ratio NAVEEN ([facility]) ID Date Data Source [id number] 03/30/2020 02:00:00 PM EST NAVEEN ([facility]) Name Value Range Interpretation Code Description Data Alysa rce(s) Supporting Document(s) white blood count 5.7 10 4.0-10.0 White Blood Count NAVEEN ([facility]) red blood count 4.34 10 4.00-5.40 Red Blood Count ATHE NA ([facility]) hematocrit 41.8 % 36.0-47.0 Hematocrit NAVEEN ([facility]) hemoglobin 13.7 g/dL 12.0-15.5 Hemoglobin NAVEEN ([facility]) mean corpuscular volume 96.3 fL 80.0-96.0 Above high normal Mean Corpuscular Volume NAVEEN ([facility]) mean corpuscular hemoglobin 31.6 pg 27.0-33.0 Mean Cor puscular Hemoglobin NAVEEN ([facility]) mean corpuscular HGB conc 32.8 g/dL 32.0-36.5 Mean Corpu scular HGB Conc NAVEEN ([facility]) platelet count, automated 283 10 150-450 Platelet C ount, Automated NAVEEN ([facility]) red cell distribution width 11.7 % 11.5-14.5 Red Cell Distribution Width NAVEEN ([facility]) mono % 8.9 % 0.0-5.0 Above high normal [place] % NAVEEN ([facility]) neutrophils % 53.5 % 36.0-66.0 Neutrophils % NAVEEN ( [facility]) lymph % 35.7 % 24.0-44.0 Lymph % NAVEEN ([facility]) baso % 1.0 % 0.0-1.0 Baso % NAVEEN ([facility]) eos % 0.9 % 0.0-3.0 Eos % NAVEEN ([facility]) immature granulocyte % 0.0 % 0-3.0 Immature Gran ulocyte % NAVEEN ([facility]) nucleated red blood cell % 0.0 % 0-0 Nucleated Red Blood Cell % NAVEEN ([facility]) neutrophils # 3.1 10 1.5-8.5 Neutrophils # NAVEEN ( [facility]) mono # 0.5 10 0.0-0.8 [place] # NAVEEN ([facility]) eos # 0.1 10 0.0-0.5 Eos # NAVEEN ([facility]) lymph # 2.0 10 1.5-5.0 Lymph # NAVEEN ([facility]) baso # 0.1 10 0.0-0.2 Baso # NAVEEN ([facility]) ID Date Data Source [id number] 03/30/2020 02:00:00 PM EST NAVEEN ([facility]) Name Value Range Interpretation Code Description Data Alysa rce(s) Supporting Document(s) prolactin 4.4 NG/mL Prolactin NAVEEN ([facility]) ID Date Data Source [id number] 03/30/2020 02:00:00 PM EST NAVEEN ([facility]) Name Value Range Interpretation Code Description Data Alysa rce(s) Supporting Document(s) thyroid stimulating hormone 0.833 uIU/mL 0.358-3.740 Thyroid Stimulating Hormone ESKO ([facility]) ID Date Data Source [id number] 03/30/2020 02:00:00 PM EST NAVEEN ([facility]) Name Value Range Interpretation Code Description Data Alysa rce(s) Supporting Document(s) glucose, fasting 86 mg/dL 70-100 Glucose, Fasting AT [facility]) glomerular filtration rate > 60.0 >60 Glomerula r Filtration Rate NAVEEN ([facility]) blood urea nitrogen 11 mg/dL 7-18 Blood Urea Nitro gen ESKO ([facility]) creatinine for GFR 0.73 mg/dL 0.55-1.30 Creatinine for GF R NAVEEN ([facility]) potassium serum 4.4 mEq/L 3.5-5.1 Potassium Serum ATHE NA ([facility]) carbon dioxide level 29 mEq/L 21-32 Carbon Dioxide Level NAVEEN ([facility]) chloride level 107 mEq/L 98-107 Chloride Level ESKO ([facility]) anion gap 4 mEq/L 8-16 Below low normal Anion Gap NAVEEN ( [facility]) sodium level 140 mEq/L 136-145 Sodium Level NAVEEN ([facility]) alkaline phosphatase 89 U/L 45-117 Alkaline Phosph atase NAVEEN ([facility]) ALT/SGPT 17 U/L 12-78 ALT/SGPT NAVEEN ([facility]) AST/SGOT 10 U/L 7-37 AST/SGOT NAVEEN ([facility]) calcium level 10.0 mg/dL 8.5-10.1 Calcium Level NAVEEN ( [facility]) albumin/globulin ratio 1.2-2.2 Below low normal Albumin /globulin Ratio NAVEEN ([facility]) albumin 4.1 gm/dL 3.2-5.2 Albumin NAVEEN ([facility]) bilirubin,total 0.5 mg/dL 0.2-1.0 Bilirubin,total ATHE NA ([facility]) total protein 7.8 gm/dL 6.4-8.2 Total Protein NAVEEN ( [facility]) ID Date Data Source [id number] 03/30/2020 02:00:00 PM EST NAVEEN ([facility]) Name Value Range Interpretation Code Description Data Alysa rce(s) Supporting Document(s) white blood count 5.7 10 4.0-10.0 White Blood Count NAVEEN ([facility]) mean corpuscular volume 96.3 fL 80.0-96.0 Above high normal Mean Corpuscular Volume NAVEEN ([facility]) red blood count 4.34 10 4.00-5.40 Red Blood Count ATHE NA ([facility]) hematocrit 41.8 % 36.0-47.0 Hematocrit NAVEEN ([facility]) hemoglobin 13.7 g/dL 12.0-15.5 Hemoglobin NAVEEN ([facility]) mean corpuscular HGB conc 32.8 g/dL 32.0-36.5 Mean Corpu scular HGB Conc NAVEEN ([facility]) red cell distribution width 11.7 % 11.5-14.5 Red Cell Distribution Width NAVEEN ([facility]) mean corpuscular hemoglobin 31.6 pg 27.0-33.0 Mean Cor puscular Hemoglobin NAVEEN ([facility]) neutrophils % 53.5 % 36.0-66.0 Neutrophils % NAVEEN ( [facility]) platelet count, automated 283 10 150-450 Platelet C ount, Automated NAVEEN ([facility]) lymph % 35.7 % 24.0-44.0 Lymph % NAVEEN ([facility]) eos % 0.9 % 0.0-3.0 Eos % NAVEEN ([facility]) baso % 1.0 % 0.0-1.0 Baso % NAVEEN ([facility]) mono % 8.9 % 0.0-5.0 Above high normal [place] % NAVEEN ([facility]) immature granulocyte % 0.0 % 0-3.0 Immature Gran ulocyte % NAVEEN ([facility]) neutrophils # 3.1 10 1.5-8.5 Neutrophils # NAVEEN ( [facility]) lymph # 2.0 10 1.5-5.0 Lymph # ESKO ([facility]) nucleated red blood cell % 0.0 % 0-0 Nucleated Red Blood Cell % NAVEEN ([facility]) mono # 0.5 10 0.0-0.8 [place] # NAVEEN ([facility]) baso # 0.1 10 0.0-0.2 Baso # NAVEEN ([facility]) eos # 0.1 10 0.0-0.5 Eos # NAVEEN ([facility]) ID Date Data Source [id number] 03/30/2020 02:00:00 PM EST NAVEEN ([facility]) Name Value Range Interpretation Code Description Data Alysa rce(s) Supporting Document(s) prolactin 4.4 NG/mL Prolactin NAVEEN ([facility]) ID Date Data Source [id number] 03/30/2020 02:00:00 PM EST NAVEEN ([facility]) Name Value Range Interpretation Code Description Data Alysa rce(s) Supporting Document(s) thyroid stimulating hormone 0.833 uIU/mL 0.358-3.740 Thyroid Stimulating Hormone NAVEEN ([facility]) ID Date Data Source [id number] 03/30/2020 02:00:00 PM EST NAVEEN ([facility]) Name Value Range Interpretation Code Description Data Alysa rce(s) Supporting Document(s) glucose, fasting 86 mg/dL 70-100 Glucose, Fasting AT [facility] ([facility]) potassium serum 4.4 mEq/L 3.5-5.1 Potassium Serum ATHE NA ([facility]) blood urea nitrogen 11 mg/dL 7-18 Blood Urea Nitro gen NAVEEN ([facility]) sodium level 140 mEq/L 136-145 Sodium Level NAVEEN ([facility]) creatinine for GFR 0.73 mg/dL 0.55-1.30 Creatinine for GF R NAVEEN ([facility]) glomerular filtration rate > 60.0 >60 Glomerula r Filtration Rate NAVEEN ([facility]) carbon dioxide level 29 mEq/L 21-32 Carbon Dioxide Level NAVEEN ([facility]) anion gap 4 mEq/L 8-16 Below low normal Anion Gap NAVEEN ( [facility]) chloride level 107 mEq/L 98-107 Chloride Level NAVEEN ([facility]) calcium level 10.0 mg/dL 8.5-10.1 Calcium Level NAVEEN ( [facility]) ALT/SGPT 17 U/L 12-78 ALT/SGPT NAVEEN ([facility]) bilirubin,total 0.5 mg/dL 0.2-1.0 Bilirubin,total ATHE NA ([facility]) albumin 4.1 gm/dL 3.2-5.2 Albumin NAVEEN ([facility]) AST/SGOT 10 U/L 7-37 AST/SGOT NAVEEN ([facility]) total protein 7.8 gm/dL 6.4-8.2 Total Protein NAVEEN ( [facility]) alkaline phosphatase 89 U/L 45-117 Alkaline Phosph atase NAVEEN ([facility]) albumin/globulin ratio 1.2-2.2 Below low normal Albumin /globulin Ratio NAVEEN ([facility]) ID Date Data Source [id number] 03/30/2020 02:00:00 PM EST NAVEEN ([facility]) Name Value Range Interpretation Code Description Data Alysa rce(s) Supporting Document(s) white blood count 5.7 10 4.0-10.0 White Blood Count NAVEEN ([facility]) hematocrit 41.8 % 36.0-47.0 Hematocrit NAVEEN ([facility]) hemoglobin 13.7 g/dL 12.0-15.5 Hemoglobin NAVEEN ([facility]) red blood count 4.34 10 4.00-5.40 Red Blood Count ATHE NA ([facility]) red cell distribution width 11.7 % 11.5-14.5 Red Cell Distribution Width NAVEEN ([facility]) mean corpuscular HGB conc 32.8 g/dL 32.0-36.5 Mean Corpu scular HGB Conc NAVEEN ([facility]) mean corpuscular volume 96.3 fL 80.0-96.0 Above high normal Mean Corpuscular Volume NAVEEN ([facility]) mean corpuscular hemoglobin 31.6 pg 27.0-33.0 Mean Cor puscular Hemoglobin NAVEEN ([facility]) mono % 8.9 % 0.0-5.0 Above high normal [place] % ESKO ([facility]) platelet count, automated 283 10 150-450 Platelet C ount, Automated NAVEEN ([facility]) neutrophils % 53.5 % 36.0-66.0 Neutrophils % ESKO ( [facility]) lymph % 35.7 % 24.0-44.0 Lymph % NAVEEN ([facility]) eos % 0.9 % 0.0-3.0 Eos % ESKO ([facility]) neutrophils # 3.1 10 1.5-8.5 Neutrophils # ESKO ( [facility]) nucleated red blood cell % 0.0 % 0-0 Nucleated Red Blood Cell % ESKO ([facility]) immature granulocyte % 0.0 % 0-3.0 Immature Gran ulocyte % ESKO ([facility]) baso % 1.0 % 0.0-1.0 Baso % NAVEEN ([facility]) lymph # 2.0 10 1.5-5.0 Lymph # NAVEEN ([facility]) baso # 0.1 10 0.0-0.2 Baso # NAVEEN ([facility]) mono # 0.5 10 0.0-0.8 [place] # NAVEEN ([facility]) eos # 0.1 10 0.0-0.5 Eos # NAVEEN ([facility]) ID Date Data Source [id number] 03/30/2020 02:00:00 PM EST NAVEEN ([facility]) Name Value Range Interpretation Code Description Data Alysa rce(s) Supporting Document(s) prolactin 4.4 NG/mL Prolactin NAVEEN ([facility]) ID Date Data Source [id number] 03/30/2020 02:00:00 PM EST NAVEEN ([facility]) Name Value Range Interpretation Code Description Data Alysa rce(s) Supporting Document(s) thyroid stimulating hormone 0.833 uIU/mL 0.358-3.740 Thyroid Stimulating Hormone NAVEEN ([facility]) ID Date Data Source [id number] 03/30/2020 02:00:00 PM EST NAVEEN ([facility]) Name Value Range Interpretation Code Description Data Alysa rce(s) Supporting Document(s) creatinine for GFR 0.73 mg/dL 0.55-1.30 Creatinine for GF R NAVEEN ([facility]) blood urea nitrogen 11 mg/dL 7-18 Blood Urea Nitro gen NAVEEN ([facility]) glucose, fasting 86 mg/dL 70-100 Glucose, [facility] ([facility]) glomerular filtration rate > 60.0 >60 Glomerula r Filtration Rate NAVEEN ([facility]) carbon dioxide level 29 mEq/L 21-32 Carbon Dioxide Level NAVEEN ([facility]) potassium serum 4.4 mEq/L 3.5-5.1 Potassium Serum ATHE NA ([facility]) chloride level 107 mEq/L 98-107 Chloride Level NAVEEN ([facility]) sodium level 140 mEq/L 136-145 Sodium Level NAVEEN ([facility]) calcium level 10.0 mg/dL 8.5-10.1 Calcium Level NAVEEN ( [facility]) anion gap 4 mEq/L 8-16 Below low normal Anion Gap NAVEEN ( [facility]) AST/SGOT 10 U/L 7-37 AST/SGOT NAVEEN ([facility]) ALT/SGPT 17 U/L 12-78 ALT/SGPT NAVEEN ([facility]) bilirubin,total 0.5 mg/dL 0.2-1.0 Bilirubin,total ATHE NA ([facility]) albumin/globulin ratio 1.2-2.2 Below low normal Albumin /globulin Ratio NAVEEN ([facility]) albumin 4.1 gm/dL 3.2-5.2 Albumin NAVEEN ([facility]) alkaline phosphatase 89 U/L 45-117 Alkaline Phosph atase NAVEEN ([facility]) total protein 7.8 gm/dL 6.4-8.2 Total Protein NAVEEN ( [facility]) ID Date Data Source [id number] 03/30/2020 02:00:00 PM EST NAVEEN ([facility]) Name Value Range Interpretation Code Description Data Alysa rce(s) Supporting Document(s) red blood count 4.34 10 4.00-5.40 Red Blood Count ATHE ([facility]) white blood count 5.7 10 4.0-10.0 White Blood Count NAVEEN ([facility]) hematocrit 41.8 % 36.0-47.0 Hematocrit NAVEEN ([facility]) mean corpuscular volume 96.3 fL 80.0-96.0 Above high normal Mean Corpuscular Volume NAVEEN ([facility]) hemoglobin 13.7 g/dL 12.0-15.5 Hemoglobin NAVEEN ([facility]) mean corpuscular hemoglobin 31.6 pg 27.0-33.0 Mean Cor puscular Hemoglobin NAVEEN ([facility]) platelet count, automated 283 10 150-450 Platelet C ount, Automated NAVEEN ([facility]) neutrophils % 53.5 % 36.0-66.0 Neutrophils % NAVEEN ( [facility]) red cell distribution width 11.7 % 11.5-14.5 Red Cell Distribution Width NAVEEN ([facility]) mean corpuscular HGB conc 32.8 g/dL 32.0-36.5 Mean Corpu scular HGB Conc NAVEEN ([facility]) eos % 0.9 % 0.0-3.0 Eos % NAVEEN ([facility]) lymph % 35.7 % 24.0-44.0 Lymph % ESKO ([facility]) mono % 8.9 % 0.0-5.0 Above high normal [place] % ESKO ([facility]) immature granulocyte % 0.0 % 0-3.0 Immature Gran ulocyte % ESKO ([facility]) nucleated red blood cell % 0.0 % 0-0 Nucleated Red Blood Cell % NAVEEN ([facility]) baso % 1.0 % 0.0-1.0 Baso % NAVEEN ([facility]) eos # 0.1 10 0.0-0.5 Eos # NAVEEN ([facility]) mono # 0.5 10 0.0-0.8 [place] # ESKO ([facility]) lymph # 2.0 10 1.5-5.0 Lymph # ESKO ([facility]) neutrophils # 3.1 10 1.5-8.5 Neutrophils # NAVEEN ( [facility]) baso # 0.1 10 0.0-0.2 Baso # NAVEEN ([facility]) ID Date Data Source [id number] 03/30/2020 02:00:00 PM EST NAVEEN ([facility]) Name Value Range Interpretation Code Description Data Alysa rce(s) Supporting Document(s) prolactin 4.4 NG/mL Prolactin ESKO ([facility]) ID Date Data Source [id number] 03/30/2020 02:00:00 PM EST NAVEEN ([facility]) Name Value Range Interpretation Code Description Data Alysa rce(s) Supporting Document(s) thyroid stimulating hormone 0.833 uIU/mL 0.358-3.740 Thyroid Stimulating Hormone NAVEEN ([facility]) ID Date Data Source [id number] 03/30/2020 02:00:00 PM EST NAVEEN ([facility]) Name Value Range Interpretation Code Description Data Alysa rce(s) Supporting Document(s) blood urea nitrogen 11 mg/dL 7-18 Blood Urea Nitro gen NAVEEN ([facility]) glucose, fasting 86 mg/dL 70-100 Glucose, F[facility] ([facility]) potassium serum 4.4 mEq/L 3.5-5.1 Potassium Serum ATHE ([facility]) glomerular filtration rate > 60.0 >60 Glomerula r Filtration Rate NAVEEN ([facility]) sodium level 140 mEq/L 136-145 Sodium Level NAVEEN ([facility]) creatinine for GFR 0.73 mg/dL 0.55-1.30 Creatinine for GF R NAVEEN ([facility]) carbon dioxide level 29 mEq/L 21-32 Carbon Dioxide Level NAVEEN ([facility]) calcium level 10.0 mg/dL 8.5-10.1 Calcium Level NAVEEN ( [facility]) AST/SGOT 10 U/L 7-37 AST/SGOT NAVEEN ([facility]) chloride level 107 mEq/L 98-107 Chloride Level NAVEEN ([facility]) anion gap 4 mEq/L 8-16 Below low normal Anion Gap NAVEEN ( [facility]) ALT/SGPT 17 U/L 12-78 ALT/SGPT NAVEEN ([facility]) total protein 7.8 gm/dL 6.4-8.2 Total Protein NAVEEN ( [facility]) alkaline phosphatase 89 U/L 45-117 Alkaline Phosph atase NAVEEN ([facility]) bilirubin,total 0.5 mg/dL 0.2-1.0 Bilirubin,total ATHE NA ([facility]) albumin 4.1 gm/dL 3.2-5.2 Albumin NAVEEN ([facility]) albumin/globulin ratio 1.2-2.2 Below low normal Albumin /globulin Ratio NAVEEN ([facility]) ID Date Data Source [id number] 03/30/2020 02:00:00 PM EST NAVEEN ([facility]) Name Value Range Interpretation Code Description Data Alysa rce(s) Supporting Document(s) white blood count 5.7 10 4.0-10.0 White Blood Count NAVEEN ([facility]) hemoglobin 13.7 g/dL 12.0-15.5 Hemoglobin NAVEEN ([facility]) red blood count 4.34 10 4.00-5.40 Red Blood Count ATHE NA ([facility]) hematocrit 41.8 % 36.0-47.0 Hematocrit NAVEEN ([facility]) mean corpuscular volume 96.3 fL 80.0-96.0 Above high normal Mean Corpuscular Volume NAVEEN ([facility]) mean corpuscular hemoglobin 31.6 pg 27.0-33.0 Mean Cor puscular Hemoglobin NAVEEN ([facility]) mean corpuscular HGB conc 32.8 g/dL 32.0-36.5 Mean Corpu scular HGB Conc NAVEEN ([facility]) red cell distribution width 11.7 % 11.5-14.5 Red Cell Distribution Width NAVEEN ([facility]) platelet count, automated 283 10 150-450 Platelet C ount, Automated NAVEEN ([facility] [facility]) eos % 0.9 % 0.0-3.0 Eos % NAVEEN ([facility]) mono % 8.9 % 0.0-5.0 Above high normal [place] % NAVEEN ([facility]) lymph % 35.7 % 24.0-44.0 Lymph % NAVEEN ([facility]) neutrophils % 53.5 % 36.0-66.0 Neutrophils % NAVEEN ( [facility]) neutrophils # 3.1 10 1.5-8.5 Neutrophils # NAVEEN ( [facility]) nucleated red blood cell % 0.0 % 0-0 Nucleated Red Blood Cell % NAVEEN ([facility]) immature granulocyte % 0.0 % 0-3.0 Immature Gran ulocyte % NAVEEN ([facility]) baso % 1.0 % 0.0-1.0 Baso % NAVEEN ([facility]) lymph # 2.0 10 1.5-5.0 Lymph # NAVEEN ([facility]) eos # 0.1 10 0.0-0.5 Eos # NAVEEN ([facility]) mono # 0.5 10 0.0-0.8 [place] # NAVEEN ([facility]) baso # 0.1 10 0.0-0.2 Baso # NAVEEN ([facility]) ID Date Data Source [id number] 03/30/2020 02:00:00 PM EST NAVEEN ([facility]) Name Value Range Interpretation Code Description Data Alysa rce(s) Supporting Document(s) prolactin 4.4 NG/mL Prolactin ESKO ([facility]) ID Date Data Source [id number] 03/30/2020 02:00:00 PM EST NAVEEN ([facility]) Name Value Range Interpretation Code Description Data Alysa rce(s) Supporting Document(s) thyroid stimulating hormone 0.833 uIU/mL 0.358-3.740 Thyroid Stimulating Hormone ESKO ([facility]) ID Date Data Source [id number] 03/30/2020 02:00:00 PM EST NAVEEN ([facility]) Name Value Range Interpretation Code Description Data Alysa rce(s) Supporting Document(s) creatinine for GFR 0.73 mg/dL 0.55-1.30 Creatinine for GF R ESKO ([facility]) blood urea nitrogen 11 mg/dL 7-18 Blood Urea Nitro gen ESKO ([facility]) glucose, fasting 86 mg/dL 70-100 Glucose, Fasting AT [facility] ([facility]) potassium serum 4.4 mEq/L 3.5-5.1 Potassium Serum ATHE ([facility]) glomerular filtration rate > 60.0 >60 Glomerula r Filtration Rate NAVEEN ([facility]) sodium level 140 mEq/L 136-145 Sodium Level NAVEEN ([facility]) chloride level 107 mEq/L 98-107 Chloride Level NAVEEN ([facility]) carbon dioxide level 29 mEq/L 21-32 Carbon Dioxide Level NAVEEN ([facility]) anion gap 4 mEq/L 8-16 Below low normal Anion Gap NAVEEN ( [facility]) calcium level 10.0 mg/dL 8.5-10.1 Calcium Level NAVEEN ( [facility]) ALT/SGPT 17 U/L 12-78 ALT/SGPT NAVEEN ([facility]) alkaline phosphatase 89 U/L 45-117 Alkaline Phosph atase NAVEEN ([facility]) AST/SGOT 10 U/L 7-37 AST/SGOT NAVEEN ([facility]) bilirubin,total 0.5 mg/dL 0.2-1.0 Bilirubin,total ATHE ([facility]) albumin 4.1 gm/dL 3.2-5.2 Albumin NAVEEN ([facility]) total protein 7.8 gm/dL 6.4-8.2 Total Protein NAVEEN ( [facility]) albumin/globulin ratio 1.2-2.2 Below low normal Albumin /globulin Ratio NAVEEN ([facility]) ID Date Data Source [id number] 03/30/2020 02:00:00 PM EST NAVEEN ([facility]) Name Value Range Interpretation Code Description Data Alysa rce(s) Supporting Document(s) white blood count 5.7 10 4.0-10.0 White Blood Count NAVEEN ([facility]) red blood count 4.34 10 4.00-5.40 Red Blood Count ATHE ([facility]) hemoglobin 13.7 g/dL 12.0-15.5 Hemoglobin NAVEEN ([facility]) hematocrit 41.8 % 36.0-47.0 Hematocrit NAVEEN ([facility]) mean corpuscular hemoglobin 31.6 pg 27.0-33.0 Mean Cor puscular Hemoglobin NAVEEN ([facility]) mean corpuscular HGB conc 32.8 g/dL 32.0-36.5 Mean Corpu scular HGB Conc NAVEEN ([facility]) mean corpuscular volume 96.3 fL 80.0-96.0 Above high normal Mean Corpuscular Volume NAVEEN ([facility]) platelet count, automated 283 10 150-450 Platelet C ount, Automated NAVEEN ([facility]) neutrophils % 53.5 % 36.0-66.0 Neutrophils % NAVEEN ( [facility]) red cell distribution width 11.7 % 11.5-14.5 Red Cell Distribution Width NAVEEN ([facility]) mono % 8.9 % 0.0-5.0 Above high normal [place] % NAVEEN ([facility]) eos % 0.9 % 0.0-3.0 Eos % NAVEEN ([facility]) lymph % 35.7 % 24.0-44.0 Lymph % NAVEEN ([facility]) baso % 1.0 % 0.0-1.0 Baso % ESKO ([facility]) immature granulocyte % 0.0 % 0-3.0 Immature Gran ulocyte % NAVEEN ([facility]) nucleated red blood cell % 0.0 % 0-0 Nucleated Red Blood Cell % NAVEEN ([facility]) neutrophils # 3.1 10 1.5-8.5 Neutrophils # NAVEEN ( [facility]) lymph # 2.0 10 1.5-5.0 Lymph # NAVEEN ([facility]) baso # 0.1 10 0.0-0.2 Baso # NAVEEN ([facility]) mono # 0.5 10 0.0-0.8 [place] # NAVEEN ([facility]) eos # 0.1 10 0.0-0.5 Eos # NAVEEN ([facility]) ID Date Data Source [id number] 03/30/2020 02:00:00 PM EST NAVEEN ([facility]) Name Value Range Interpretation Code Description Data Alysa rce(s) Supporting Document(s) prolactin 4.4 NG/mL Prolactin NAVEEN ([facility]) ID Date Data Source [id number] 03/30/2020 02:00:00 PM EST NAVEEN ([facility]) Name Value Range Interpretation Code Description Data Alysa rce(s) Supporting Document(s) thyroid stimulating hormone 0.833 uIU/mL 0.358-3.740 Thyroid Stimulating Hormone NAVEEN ([facility]) ID Date Data Source [id number] 03/30/2020 02:00:00 PM EST NAVEEN ([facility]) Name Value Range Interpretation Code Description Data Alysa rce(s) Supporting Document(s) glucose, fasting 86 mg/dL 70-100 Glucose, Fasting AT [facility]) creatinine for GFR 0.73 mg/dL 0.55-1.30 Creatinine for GF R ESKO ([facility]) blood urea nitrogen 11 mg/dL 7-18 Blood Urea Nitro gen NAVEEN ([facility]) sodium level 140 mEq/L 136-145 Sodium Level NAVEEN ([facility]) glomerular filtration rate > 60.0 >60 Glomerula r Filtration Rate NAVEEN ([facility]) potassium serum 4.4 mEq/L 3.5-5.1 Potassium Serum ATHE NA ([facility]) carbon dioxide level 29 mEq/L 21-32 Carbon Dioxide Level NAVEEN ([facility]) chloride level 107 mEq/L 98-107 Chloride Level NAVEEN ([facility]) anion gap 4 mEq/L 8-16 Below low normal Anion Gap NAVEEN ( [facility]) calcium level 10.0 mg/dL 8.5-10.1 Calcium Level NAVEEN ( [facility]) AST/SGOT 10 U/L 7-37 AST/SGOT NAVEEN ([facility]) ALT/SGPT 17 U/L 12-78 ALT/SGPT NAVEEN ([facility]) alkaline phosphatase 89 U/L 45-117 Alkaline Phosph atase NAVEEN ([facility]) bilirubin,total 0.5 mg/dL 0.2-1.0 Bilirubin,total ATHE NA ([facility]) albumin 4.1 gm/dL 3.2-5.2 Albumin NAVEEN ([facility]) total protein 7.8 gm/dL 6.4-8.2 Total Protein NAVEEN ( [facility]) albumin/globulin ratio 1.2-2.2 Below low normal Albumin /globulin Ratio NAVEEN ([facility]) ID Date Data Source [id number] 03/30/2020 02:00:00 PM EST NAVEEN ([facility]) Name Value Range Interpretation Code Description Data Alysa rce(s) Supporting Document(s) hemoglobin 13.7 g/dL 12.0-15.5 Hemoglobin NAVEEN ([facility]) white blood count 5.7 10 4.0-10.0 White Blood Count NAVEEN ([facility]) red blood count 4.34 10 4.00-5.40 Red Blood Count ATHE ([facility]) mean corpuscular volume 96.3 fL 80.0-96.0 Above high normal Mean Corpuscular Volume NAVEEN ([facility]) hematocrit 41.8 % 36.0-47.0 Hematocrit NAVEEN ([facility]) mean corpuscular hemoglobin 31.6 pg 27.0-33.0 Mean Cor puscular Hemoglobin NAVEEN ([facility]) neutrophils % 53.5 % 36.0-66.0 Neutrophils % NAVEEN ( [facility]) platelet count, automated 283 10 150-450 Platelet C ount, Automated NAVEEN ([facility]) mean corpuscular HGB conc 32.8 g/dL 32.0-36.5 Mean Corpu scular HGB Conc NAVEEN ([facility]) red cell distribution width 11.7 % 11.5-14.5 Red Cell Distribution Width NAVEEN ([facility]) eos % 0.9 % 0.0-3.0 Eos % NAVEEN ([facility]) lymph % 35.7 % 24.0-44.0 Lymph % NAVEEN ([facility]) mono % 8.9 % 0.0-5.0 Above high normal [place] % NAVEEN ([facility]) neutrophils # 3.1 10 1.5-8.5 Neutrophils # NAVEEN ( [facility]) immature granulocyte % 0.0 % 0-3.0 Immature Gran ulocyte % NAVEEN ([facility]) baso % 1.0 % 0.0-1.0 Baso % NAVEEN ([facility]) nucleated red blood cell % 0.0 % 0-0 Nucleated Red Blood Cell % NAVEEN ([facility]) lymph # 2.0 10 1.5-5.0 Lymph # NAVEEN ([facility]) baso # 0.1 10 0.0-0.2 Baso # NAVEEN ([facility]) eos # 0.1 10 0.0-0.5 Eos # NAVEEN ([facility]) mono # 0.5 10 0.0-0.8 [place] # NAVEEN ([facility]) ID Date Data Source [id number] 03/30/2020 02:00:00 PM EST NAVEEN ([facility]) Name Value Range Interpretation Code Description Data Alysa rce(s) Supporting Document(s) prolactin 4.4 NG/mL Prolactin NAVEEN ([facility]) ID Date Data Source [id number] 03/30/2020 02:00:00 PM EST NAVEEN ([facility]) Name Value Range Interpretation Code Description Data Alysa rce(s) Supporting Document(s) thyroid stimulating hormone 0.833 uIU/mL 0.358-3.740 Thyroid Stimulating Hormone NAVEEN ([facility]) ID Date Data Source [id number] 03/30/2020 02:00:00 PM EST NAVEEN ([facility]) Name Value Range Interpretation Code Description Data Alysa rce(s) Supporting Document(s) blood urea nitrogen 11 mg/dL 7-18 Blood Urea Nitro gen NAVEEN ([facility]) creatinine for GFR 0.73 mg/dL 0.55-1.30 Creatinine for GF R NAVEEN ([facility]) glucose, fasting 86 mg/dL 70-100 Glucose, Fasting AT [facility] ([facility]) glomerular filtration rate > 60.0 >60 Glomerula r Filtration Rate NAVEEN ([facility]) chloride level 107 mEq/L 98-107 Chloride Level NAVEEN ([facility]) potassium serum 4.4 mEq/L 3.5-5.1 Potassium Serum ATHE NA ([facility]) sodium level 140 mEq/L 136-145 Sodium Level NAVEEN ([facility]) carbon dioxide level 29 mEq/L 21-32 Carbon Dioxide Level NAVEEN ([facility]) calcium level 10.0 mg/dL 8.5-10.1 Calcium Level NAVEEN ( [facility]) anion gap 4 mEq/L 8-16 Below low normal Anion Gap NAVEEN ( [facility]) AST/SGOT 10 U/L 7-37 AST/SGOT NAVEEN ([facility]) ALT/SGPT 17 U/L 12-78 ALT/SGPT NAVEEN ([facility]) alkaline phosphatase 89 U/L 45-117 Alkaline Phosph atase NAVEEN ([facility]) bilirubin,total 0.5 mg/dL 0.2-1.0 Bilirubin,total ATHE NA ([facility]) albumin 4.1 gm/dL 3.2-5.2 Albumin NAVEEN ([facility]) total protein 7.8 gm/dL 6.4-8.2 Total Protein NAVEEN ( [facility]) albumin/globulin ratio 1.2-2.2 Below low normal Albumin /globulin Ratio NAVEEN ([facility]) ID Date Data Source [id number] 03/30/2020 02:00:00 PM EST NAVEEN ([facility]) Name Value Range Interpretation Code Description Data Alysa rce(s) Supporting Document(s) red blood count 4.34 10 4.00-5.40 Red Blood Count ATHE NA ([facility]) white blood count 5.7 10 4.0-10.0 White Blood Count NAVEEN ([facility]) hemoglobin 13.7 g/dL 12.0-15.5 Hemoglobin NAVEEN ([facility]) hematocrit 41.8 % 36.0-47.0 Hematocrit NAVEEN ([facility]) mean corpuscular hemoglobin 31.6 pg 27.0-33.0 Mean Cor puscular Hemoglobin NAVEEN ([facility]) mean corpuscular volume 96.3 fL 80.0-96.0 Above high normal Mean Corpuscular Volume NAVEEN ([facility]) mean corpuscular HGB conc 32.8 g/dL 32.0-36.5 Mean Corpu scular HGB Conc NAVEEN ([facility]) red cell distribution width 11.7 % 11.5-14.5 Red Cell Distribution Width NAVEEN ([facility]) platelet count, automated 283 10 150-450 Platelet C ount, Automated NAVEEN ([facility]) neutrophils % 53.5 % 36.0-66.0 Neutrophils % ESKO ( [facility]) mono % 8.9 % 0.0-5.0 Above high normal [place] % ESKO ([facility]) eos % 0.9 % 0.0-3.0 Eos % NAVEEN ([facility]) baso % 1.0 % 0.0-1.0 Baso % NAVEEN ([facility]) lymph % 35.7 % 24.0-44.0 Lymph % NAVEEN ([facility]) lymph # 2.0 10 1.5-5.0 Lymph # ESKO ([facility]) neutrophils # 3.1 10 1.5-8.5 Neutrophils # ESKO ( [facility]) immature granulocyte % 0.0 % 0-3.0 Immature Gran ulocyte % NAVEEN ([facility]) nucleated red blood cell % 0.0 % 0-0 Nucleated Red Blood Cell % NAVEEN ([facility]) eos # 0.1 10 0.0-0.5 Eos # NAVEEN ([facility]) baso # 0.1 10 0.0-0.2 Baso # NAVEEN ([facility]) mono # 0.5 10 0.0-0.8 [place] # NAVEEN ([facility]) ID Date Data Source [id number] 03/30/2020 02:00:00 PM EST NAVEEN ([facility]) Name Value Range Interpretation Code Description Data Alysa rce(s) Supporting Document(s) prolactin 4.4 NG/mL Prolactin NAVEEN ([facility]) ID Date Data Source [id number] 03/30/2020 02:00:00 PM EST NAVEEN ([facility]) Name Value Range Interpretation Code Description Data Alysa rce(s) Supporting Document(s) thyroid stimulating hormone 0.833 uIU/mL 0.358-3.740 Thyroid Stimulating Hormone NAVEEN ([facility]) ID Date Data Source [id number] 03/30/2020 02:00:00 PM EST NAVEEN ([facility]) Name Value Range Interpretation Code Description Data Alysa rce(s) Supporting Document(s) glucose, fasting 86 mg/dL 70-100 Glucose, [facility] ([facility]) blood urea nitrogen 11 mg/dL 7-18 Blood Urea Nitro gen NAVEEN ([facility]) sodium level 140 mEq/L 136-145 Sodium Level NAVEEN ([facility]) potassium serum 4.4 mEq/L 3.5-5.1 Potassium Serum ATHE NA ([facility]) creatinine for GFR 0.73 mg/dL 0.55-1.30 Creatinine for GF R NAVEEN ([facility]) glomerular filtration rate > 60.0 >60 Glomerula r Filtration Rate NAVEEN ([facility]) carbon dioxide level 29 mEq/L 21-32 Carbon Dioxide Level NAVEEN ([facility]) chloride level 107 mEq/L 98-107 Chloride Level NAVEEN ([facility]) anion gap 4 mEq/L 8-16 Below low normal Anion Gap NAVEEN ( [facility]) AST/SGOT 10 U/L 7-37 AST/SGOT NAVEEN ([facility]) ALT/SGPT 17 U/L 12-78 ALT/SGPT NAVEEN ([facility]) calcium level 10.0 mg/dL 8.5-10.1 Calcium Level NAVEEN ( [facility]) alkaline phosphatase 89 U/L 45-117 Alkaline Phosph atase NAVEEN ([facility]) bilirubin,total 0.5 mg/dL 0.2-1.0 Bilirubin,total ATHE ([facility]) total protein 7.8 gm/dL 6.4-8.2 Total Protein NAVEEN ( [facility]) albumin/globulin ratio 1.2-2.2 Below low normal Albumin /globulin Ratio NAVEEN ([facility]) albumin 4.1 gm/dL 3.2-5.2 Albumin NAVEEN ([facility]) ID Date Data Source [id number] 03/30/2020 02:00:00 PM EST NAVEEN ([facility]) Name Value Range Interpretation Code Description Data Alysa rce(s) Supporting Document(s) white blood count 5.7 10 4.0-10.0 White Blood Count NAVEEN ([facility]) red blood count 4.34 10 4.00-5.40 Red Blood Count ATHE NA ([facility]) hemoglobin 13.7 g/dL 12.0-15.5 Hemoglobin NAVEEN ([facility]) hematocrit 41.8 % 36.0-47.0 Hematocrit NAVEEN ([facility]) red cell distribution width 11.7 % 11.5-14.5 Red Cell Distribution Width NAVEEN ([facility]) mean corpuscular HGB conc 32.8 g/dL 32.0-36.5 Mean Corpu scular HGB Conc NAVEEN ([facility]) mean corpuscular volume 96.3 fL 80.0-96.0 Above high normal Mean Corpuscular Volume NAVEEN ([facility]) mean corpuscular hemoglobin 31.6 pg 27.0-33.0 Mean Cor puscular Hemoglobin NAVEEN ([facility]) neutrophils % 53.5 % 36.0-66.0 Neutrophils % NAVEEN ( [facility]) lymph % 35.7 % 24.0-44.0 Lymph % NAVEEN ([facility]) platelet count, automated 283 10 150-450 Platelet C ount, Automated NAVEEN ([facility]) mono % 8.9 % 0.0-5.0 Above high normal [place] % NAVEEN ([facility]) eos % 0.9 % 0.0-3.0 Eos % NAVEEN ([facility]) baso % 1.0 % 0.0-1.0 Baso % NAVEEN ([facility]) nucleated red blood cell % 0.0 % 0-0 Nucleated Red Blood Cell % NAVEEN ([facility]) immature granulocyte % 0.0 % 0-3.0 Immature Gran ulocyte % NAVEEN ([facility]) neutrophils # 3.1 10 1.5-8.5 Neutrophils # NAVEEN ( [facility]) mono # 0.5 10 0.0-0.8 [place] # NAVEEN ([facility]) lymph # 2.0 10 1.5-5.0 Lymph # NAVEEN ([facility]) eos # 0.1 10 0.0-0.5 Eos # NAVEEN ([facility]) baso # 0.1 10 0.0-0.2 Baso # NAVEEN ([facility]) ID Date Data Source [id number] 03/30/2020 02:00:00 PM EST NAVEEN ([facility]) Name Value Range Interpretation Code Description Data Alysa rce(s) Supporting Document(s) prolactin 4.4 NG/mL Prolactin NAVEEN ([facility]) ID Date Data Source [id number] 03/30/2020 02:00:00 PM EST NAVEEN ([facility]) Name Value Range Interpretation Code Description Data Alysa rce(s) Supporting Document(s) thyroid stimulating hormone 0.833 uIU/mL 0.358-3.740 Thyroid Stimulating Hormone ESKO ([facility]) ID Date Data Source [id number] 03/30/2020 02:00:00 PM EST NAVEEN ([facility]) Name Value Range Interpretation Code Description Data Alysa rce(s) Supporting Document(s) glucose, fasting 86 mg/dL 70-100 Glucose, [facility] ([facility]) blood urea nitrogen 11 mg/dL 7-18 Blood Urea Nitro gen ESKO ([facility]) creatinine for GFR 0.73 mg/dL 0.55-1.30 Creatinine for GF R NAVEEN ([facility]) chloride level 107 mEq/L 98-107 Chloride Level NAVEEN ([facility]) sodium level 140 mEq/L 136-145 Sodium Level NAVEEN ([facility]) glomerular filtration rate > 60.0 >60 Glomerula r Filtration Rate NAVEEN ([facility]) potassium serum 4.4 mEq/L 3.5-5.1 Potassium Serum ATHE ([facility]) anion gap 4 mEq/L 8-16 Below low normal Anion Gap NAVEEN ( [facility]) carbon dioxide level 29 mEq/L 21-32 Carbon Dioxide Level NAVEEN ([facility]) calcium level 10.0 mg/dL 8.5-10.1 Calcium Level NAVEEN ( [facility]) AST/SGOT 10 U/L 7-37 AST/SGOT NAVEEN ([facility]) bilirubin,total 0.5 mg/dL 0.2-1.0 Bilirubin,total ATHE NA ([facility]) alkaline phosphatase 89 U/L 45-117 Alkaline Phosph atase NAVEEN ([facility]) ALT/SGPT 17 U/L 12-78 ALT/SGPT NAVEEN ([facility]) total protein 7.8 gm/dL 6.4-8.2 Total Protein NAVEEN ( [facility]) albumin 4.1 gm/dL 3.2-5.2 Albumin NAVEEN ([facility]) albumin/globulin ratio 1.2-2.2 Below low normal Albumin /globulin Ratio NAVEEN ([facility]) ID Date Data Source [id number] 03/30/2020 02:00:00 PM EST NAVEEN ([facility]) Name Value Range Interpretation Code Description Data Alysa rce(s) Supporting Document(s) white blood count 5.7 10 4.0-10.0 White Blood Count NAVEEN ([facility]) red blood count 4.34 10 4.00-5.40 Red Blood Count ATHE ([facility]) hemoglobin 13.7 g/dL 12.0-15.5 Hemoglobin NAVEEN ([facility]) mean corpuscular hemoglobin 31.6 pg 27.0-33.0 Mean Cor puscular Hemoglobin NAVEEN ([facility]) hematocrit 41.8 % 36.0-47.0 Hematocrit NAVEEN ([facility]) mean corpuscular volume 96.3 fL 80.0-96.0 Above high normal Mean Corpuscular Volume NAVEEN ([facility]) mean corpuscular HGB conc 32.8 g/dL 32.0-36.5 Mean Corpu scular HGB Conc NAVEEN ([facility]) platelet count, automated 283 10 150-450 Platelet C ount, Automated NAVEEN ([facility]) red cell distribution width 11.7 % 11.5-14.5 Red Cell Distribution Width NAVEEN ([facility]) neutrophils % 53.5 % 36.0-66.0 Neutrophils % NAVEEN ( [facility]) baso % 1.0 % 0.0-1.0 Baso % NAVEEN ([facility]) eos % 0.9 % 0.0-3.0 Eos % NAVEEN ([facility]) mono % 8.9 % 0.0-5.0 Above high normal [place] % NAVEEN ([facility]) lymph % 35.7 % 24.0-44.0 Lymph % NAVEEN ([facility]) neutrophils # 3.1 10 1.5-8.5 Neutrophils # NAVEEN ( [facility]) immature granulocyte % 0.0 % 0-3.0 Immature Gran ulocyte % NAVEEN ([facility]) nucleated red blood cell % 0.0 % 0-0 Nucleated Red Blood Cell % NAVEEN ([facility]) baso # 0.1 10 0.0-0.2 Baso # NAVEEN ([facility]) eos # 0.1 10 0.0-0.5 Eos # NAVEEN ([facility]) lymph # 2.0 10 1.5-5.0 Lymph # NAVEEN ([facility]) mono # 0.5 10 0.0-0.8 [place] # NAVEEN ([facility]) ID Date Data Source [id number] 03/30/2020 02:00:00 PM EST ESKO ([facility]) Name Value Range Interpretation Code Description Data Alysa rce(s) Supporting Document(s) prolactin 4.4 NG/mL Prolactin ESKO ([facility]) ID Date Data Source [id number] 03/08/2020 10:45:00 AM EST [facility]) Name Value Range Interpretation Code Description Data Alysa rce(s) Supporting Document(s) SARS-CoV-2 (COVID-19) RNA [Presence] in Respiratory specimen by [facility] with probe detection not detected not detected Sars Cov 2 RNA [facility]) ID Date Data Source [id number] 03/08/2020 10:45:00 AM EST [facility]) Name Value Range Interpretation Code Description Data Alysa rce(s) Supporting Document(s) SARS-CoV-2 (COVID-19) RNA [Presence] in Respiratory specimen by [facility] with probe detection not detected not detected Sars Cov 2 RNA [facility]) ID Date Data Source [id number] 03/08/2020 10:45:00 AM EST [facility]) Name Value Range Interpretation Code Description Data Alysa rce(s) Supporting Document(s) SARS-CoV-2 (COVID-19) RNA [Presence] in Respiratory specimen by [facility] with probe detection not detected not detected Sars Cov 2 RNA [facility]) ID Date Data Source [id number] 03/08/2020 10:45:00 AM EST [facility]) Name Value Range Interpretation Code Description Data Alysa rce(s) Supporting Document(s) SARS-CoV-2 (COVID-19) RNA [Presence] in Respiratory specimen by CEM with probe detection not detected not detected Sars Cov 2 RNA [facility]) ID Date Data Source [id number] 03/08/2020 10:45:00 AM EST [facility]) Name Value Range Interpretation Code Description Data Alysa rce(s) Supporting Document(s) SARS-CoV-2 (COVID-19) RNA [Presence] in Respiratory specimen by CEM with probe detection not detected not detected Sars Cov 2 RNA [facility]) ID Date Data Source [id number] 03/08/2020 10:45:00 AM EST [facility]) Name Value Range Interpretation Code Description Data Alysa rce(s) Supporting Document(s) SARS-CoV-2 (COVID-19) RNA [Presence] in Respiratory specimen by CEM with probe detection not detected not detected Sars Cov 2 RNA [facility]) ID Date Data Source [id number] 03/08/2020 10:45:00 AM EST [facility]) Name Value Range Interpretation Code Description Data Alysa rce(s) Supporting Document(s) SARS-CoV-2 (COVID-19) RNA [Presence] in Respiratory specimen by CEM with probe detection not detected not detected Sars Cov 2 RNA [facility]) ID Date Data Source [id number] 03/08/2020 10:45:00 AM EST ESKO ([facility]) Name Value Range Interpretation Code Description Data Alysa rce(s) Supporting Document(s) SARS-CoV-2 (COVID-19) RNA [Presence] in Respiratory specimen by CEM with probe detection not detected not detected Sars Cov 2 RNA [facility]) ID Date Data Source [id number] 03/08/2020 10:45:00 AM EST [facility]) Name Value Range Interpretation Code Description Data Alysa rce(s) Supporting Document(s) SARS-CoV-2 (COVID-19) RNA [Presence] in Respiratory specimen by CEM with probe detection not detected not detected Sars Cov 2 RNA [facility]) ID Date Data Source [id number] 03/08/2020 10:45:00 AM EST [facility]) Name Value Range Interpretation Code Description Data Alysa rce(s) Supporting Document(s) SARS-CoV-2 (COVID-19) RNA [Presence] in Respiratory specimen by CEM with probe detection not detected not detected Sars Cov 2 RNA [facility]) ID Date Data Source [id number] 03/08/2020 10:45:00 AM EST [facility]) Name Value Range Interpretation Code Description Data Alysa rce(s) Supporting Document(s) SARS-CoV-2 (COVID-19) RNA [Presence] in Respiratory specimen by CEM with probe detection not detected not detected Sars Cov 2 RNA [facility]) ID Date Data Source [id number] 03/08/2020 10:45:00 AM EST [facility]) Name Value Range Interpretation Code Description Data Alysa rce(s) Supporting Document(s) SARS-CoV-2 (COVID-19) RNA [Presence] in Respiratory specimen by CEM with probe detection not detected not detected Sars Cov 2 RNA [facility]) ID Date Data Source [id number] 03/08/2020 10:45:00 AM EST [facility]) Name Value Range Interpretation Code Description Data Alysa rce(s) Supporting Document(s) SARS-CoV-2 (COVID-19) RNA [Presence] in Respiratory specimen by CEM with probe detection not detected not detected Sars Cov 2 RNA [facility]) ID Date Data Source [id number] 03/08/2020 10:45:00 AM EST [facility]) Name Value Range Interpretation Code Description Data Alysa rce(s) Supporting Document(s) SARS-CoV-2 (COVID-19) RNA [Presence] in Respiratory specimen by CEM with probe detection not detected not detected Sars Cov 2 RNA [facility]) ID Date Data Source [id number] 03/08/2020 10:45:00 AM EST [facility]) Name Value Range Interpretation Code Description Data Alysa rce(s) Supporting Document(s) SARS-CoV-2 (COVID-19) RNA [Presence] in Respiratory specimen by CEM with probe detection not detected not detected Sars Cov 2 RNA [facility]) ID Date Data Source [id number] 03/08/2020 10:45:00 AM EST [facility]) Name Value Range Interpretation Code Description Data Alysa rce(s) Supporting Document(s) SARS-CoV-2 (COVID-19) RNA [Presence] in Respiratory specimen by CEM with probe detection not detected not detected Sars Cov 2 RNA [facility]) ID Date Data Source [id number] 03/08/2020 10:45:00 AM EST [facility]) Name Value Range Interpretation Code Description Data Alysa rce(s) Supporting Document(s) SARS-CoV-2 (COVID-19) RNA [Presence] in Respiratory specimen by CEM with probe detection not detected not detected Sars Cov 2 RNA [facility]) ID Date Data Source [id number] 03/08/2020 10:45:00 AM EST [facility]) Name Value Range Interpretation Code Description Data Alysa rce(s) Supporting Document(s) SARS-CoV-2 (COVID-19) RNA [Presence] in Respiratory specimen by CEM with probe detection not detected not detected Sars Cov 2 RNA [facility]) ID Date Data Source [id number] 03/08/2020 10:45:00 AM EST [facility]) Name Value Range Interpretation Code Description Data Alysa rce(s) Supporting Document(s) SARS-CoV-2 (COVID-19) RNA [Presence] in Respiratory specimen by CEM with probe detection not detected not detected Sars Cov 2 RNA [facility]) ID Date Data Source [id number] 03/08/2020 10:45:00 AM EST [facility]) Name Value Range Interpretation Code Description Data Alysa rce(s) Supporting Document(s) SARS-CoV-2 (COVID-19) RNA [Presence] in Respiratory specimen by CEM with probe detection not detected not detected Sars Cov 2 RNA [facility]) ID Date Data Source [id number] 03/08/2020 10:45:00 AM EST [facility]) Name Value Range Interpretation Code Description Data Alysa rce(s) Supporting Document(s) SARS-CoV-2 (COVID-19) RNA [Presence] in Respiratory specimen by CEM with probe detection not detected not detected Sars Cov 2 RNA [facility]) ID Date Data Source [id number] 03/08/2020 10:45:00 AM EST [facility] ([facility]) Name Value Range Interpretation Code Description Data Alysa rce(s) Supporting Document(s) SARS-CoV-2 (COVID-19) RNA [Presence] in Respiratory specimen by CEM with probe detection not detected not detected Sars Cov 2 RNA [facility]) ID Date Data Source [id number] 03/08/2020 10:45:00 AM EST [facility]) Name Value Range Interpretation Code Description Data Alysa rce(s) Supporting Document(s) SARS-CoV-2 (COVID-19) RNA [Presence] in Respiratory specimen by CEM with probe detection not detected not detected Sars Cov 2 RNA [facility]) ID Date Data Source [id number] 03/08/2020 10:45:00 AM EST [facility]) Name Value Range Interpretation Code Description Data Alysa rce(s) Supporting Document(s) SARS-CoV-2 (COVID-19) RNA [Presence] in Respiratory specimen by CEM with probe detection not detected not detected Sars Cov 2 RNA [facility]) ID Date Data Source [id number] 03/08/2020 10:45:00 AM EST [facility]) Name Value Range Interpretation Code Description Data Alysa rce(s) Supporting Document(s) SARS-CoV-2 (COVID-19) RNA [Presence] in Respiratory specimen by CEM with probe detection not detected not detected Sars Cov 2 RNA [facility]) ID Date Data Source [id number] 03/08/2020 10:45:00 AM EST [facility]) Name Value Range Interpretation Code Description Data Alysa rce(s) Supporting Document(s) SARS-CoV-2 (COVID-19) RNA [Presence] in Respiratory specimen by CEM with probe detection not detected not detected Sars Cov 2 RNA [facility]) ID Date Data Source [id number] 03/08/2020 10:45:00 AM EST NAVEEN ([facility]) Name Value Range Interpretation Code Description Data Alysa rce(s) Supporting Document(s) SARS-CoV-2 (COVID-19) RNA [Presence] in Respiratory specimen by CEM with probe detection not detected not detected Sars Cov 2 RNA NAVEEN ([facility]) ID Date Data Source [id number] 01/26/2020 11:25:45 AM EDT [facility] Measurements & CalculationsHeight: 63 inches (5 ft. [...] History:MigrainesADHDDepression /AnxietyPTSDSurgical History:Mass removed from L Breast 2013wisdom teethFamily History:Anxiety (Mother)Depression (Mother)Social/Personal History: Chief Complaintfollow-up [...] & Plan Problems:Added: Sore nipple (ICD- 780.99) (FMK71-D75.59) Assessment: left nipple sore, will get breast US as screeningDischarge from right nipple (EPO85-P95.52) Assessment: no discharge today on exam. will get labs if imaging comes back normal. could be medication side effects.Assessment not Saved Discharge from right nipple (DBS48-A10.52): Comment Onlyno discharge today on exam. will get labs if imaging comes back normal. could be medication side effects. will proceed based on testing.Orders:Ultrasound, breast, unilateral; complete [CPT-94301] Ultrasound, breast, unilateral; complete [CPT-87942] Adult - Ofc Vst, EST, Level III [CPT- 99350] Follow-Up Return to clinic: if symptoms persist Clinical Visit Summary Declined Name Value Range Interpretation Code Description Data Alysa rce(s) Supporting Document(s) Procedure Social History Code Duration Value Status Description Data Source(s ) 09/01/2020 01:32:25 PM EDT Never smoker completed Never [facility] 09/01/2020 01:32:25 PM EDT Never smoker completed Never [facility] 09/01/2020 01:32:25 PM EDT Never smoker completed Never [facility] 09/01/2020 01:32:25 PM EDT Never smoker completed Never [facility] 09/01/2020 01:32:25 PM EDT Never smoker completed Never [facility] 09/01/2020 01:32:25 PM EDT Never smoker completed Never [facility] Smoking 09/01/2020 01:32:00 PM EDT Never smoker completed Never [facility] Smoking 06/07/2020 12:00:00 AM EST Non-Smoker, Non-Drink er, Non-Drug User completed Non-Smoker, Non-Drinker, Non-Drug User MEDENT (Raj howard STAFF SONOGR[employer]HER) Vital Signs ID Date Data Source [id number] Name Value Range Interpretation Code Description Data Source(s) Body height 63 [in_i] 63 [in_i] ESKO ([facility]) Body mass index (BMI) [Ratio] 25.2 kg/m2 25.2 k g/m2 ESKO ([facility]) Body weight 2275.2 [oz_av] 2275.2 [oz_av] ATHEN A ([facility]) Body height 63 [in_i] 63 [in_i] NAVEEN ([facility]) Body mass index (BMI) [Ratio] 25.2 kg/m2 25.2 k g/m2 NAVEEN ([facility]) Body weight 2275.2 [oz_av] 2275.2 [oz_av] ATHEN A ([facility]) Body height 63 [in_i] 63 [in_i] NAVEEN ([facility]) Body mass index (BMI) [Ratio] 25.2 kg/m2 25.2 k g/m2 NAVEEN ([facility]) Body weight 2275.2 [oz_av] 2275.2 [oz_av] ATHEN A ([facility]) Body height 63 [in_i] 63 [in_i] NAVEEN ([facility]) Body mass index (BMI) [Ratio] 25.2 kg/m2 25.2 k g/m2 NAVEEN ([facility]) Body weight 2275.2 [oz_av] 2275.2 [oz_av] ATHEN A ([facility]) Systolic blood pressure 106 mm[Hg] 106 mm[Hg] M EDENT (Anthony Woman STAFF SONOGRAPHER) Diastolic blood pressure 66 mm[Hg] 66 mm[Hg] MEDENT (Anthony Woman STAFF SONOGRAPHER) Body height 61 [in_i] 61 [in_i] MEDENT (Anthony Woman STAFF SONOGRAPHER) 5'1" Body weight 138.00 [lb_av] 138.00 [lb_av] MEDEN T (Anthony Woman STAFF SONOGRAPHER) Body mass index (BMI) [Ratio] 26.1 kg/m2 26.1 k g/m2 MEDENT (Anthony Woman STAFF SONOGRAPHER) Body surface area Derived from formula 1.61 m2 1.61 m2 MEDENT (Anthony Woman STAFF SONOGRAPHER) Body height 63 [in_i] 63 [in_i] NAVEEN ([facility]) Body mass index (BMI) [Ratio] 23.8 kg/m2 23.8 k g/m2 N[facility]EN ([facility]) Body weight 2150.4 [oz_av] 2150.4 [oz_av] ATHEN A ([facility]) Body height 63 [in_i] 63 [in_i] NAVEEN ([facility]) Body mass index (BMI) [Ratio] 23.8 kg/m2 23.8 k g/m2 NAVEEN ([facility]) Body weight 2150.4 [oz_av] 2150.4 [oz_av] ATHEN A ([facility]) Body mass index (BMI) [Ratio] 23.8 kg/m2 23.8 k g/m2 NAVEEN ([facility]) Body weight 2150.4 [oz_av] 2150.4 [oz_av] ATHHEATHER A ([facility]) Body height 63 [in_i] 63 [in_i] NAVEEN ([facility]) Body height 63 [in_i] 63 [in_i] NAVEEN ([facility]) Body mass index (BMI) [Ratio] 23.8 kg/m2 23.8 k g/m2 NAVEEN ([facility]) Body weight 2150.4 [oz_av] 2150.4 [oz_av] ATHEN A ([facility]) Body height 63 [in_i] 63 [in_i] NAVEEN ([facility]) Body mass index (BMI) [Ratio] 23.8 kg/m2 23.8 k g/m2 NAVEEN ([facility]) Body weight 2150.4 [oz_av] 2150.4 [oz_av] ATHHEATHER A ([facility]) Body height 63 [in_i] 63 [in_i] NAVEEN ([facility]) Body mass index (BMI) [Ratio] 23.8 kg/m2 23.8 k g/m2 NAVEEN ([facility]) Body weight 2150.4 [oz_av] 2150.4 [oz_av] ATHHEATHER A ([facility]) Body height 63 [in_i] 63 [in_i] NAVEEN ([facility]) Body mass index (BMI) [Ratio] 23.8 kg/m2 23.8 k g/m2 NAVEEN ([facility]) Body weight 2150.4 [oz_av] 2150.4 [oz_av] ATHEN A ([facility]) Body height 63 [in_i] 63 [in_i] NAVEEN ([facility]) Body mass index (BMI) [Ratio] 23.8 kg/m2 23.8 k g/m2 NAVEEN ([facility]) Body weight 2150.4 [oz_av] 2150.4 [oz_av] ATHEN A ([facility]) Body height 63 [in_i] 63 [in_i] NAVEEN ([facility]) Body mass index (BMI) [Ratio] 23.8 kg/m2 23.8 k g/m2 NAVEEN ([facility]) Body weight 2150.4 [oz_av] 2150.4 [oz_av] ATHHEATHER A ([facility]) Body height 63 [in_i] 63 [in_i] NAVEEN ([facility]) Body height 63 [in_i] 63 [in_i] NAVEEN ([facility]) Body mass index (BMI) [Ratio] 23.8 kg/m2 23.8 k g/m2 NAVEEN ([facility]) Body weight 2150.4 [oz_av] 2150.4 [oz_av] ATHEN A ([facility]) Body mass index (BMI) [Ratio] 23.8 kg/m2 23.8 k g/m2 NAVEEN ([facility]) Body weight 2150.4 [oz_av] 2150.4 [oz_av] ATHEN A ([facility]) Body height 63 [in_i] 63 [in_i] NAVEEN ([facility]) Body mass index (BMI) [Ratio] 23.8 kg/m2 23.8 k g/m2 NAVEEN ([facility]) Body weight 2150.4 [oz_av] 2150.4 [oz_av] ATHEN A ([facility]) Body height 63 [in_i] 63 [in_i] NAVEEN ([facility]) Body mass index (BMI) [Ratio] 23.8 kg/m2 23.8 k g/m2 NAVEEN ([facility]) Body weight 2150.4 [oz_av] 2150.4 [oz_av] ATHEN A ([facility]) Body height 63 [in_i] 63 [in_i] NAVEEN ([facility]) Body mass index (BMI) [Ratio] 23.8 kg/m2 23.8 k g/m2 NAVEEN ([facility]) Body weight 2150.4 [oz_av] 2150.4 [oz_av] ATHEN A ([facility]) Body height 63 [in_i] 63 [in_i] NAVEEN ([facility]) Body mass index (BMI) [Ratio] 23.8 kg/m2 23.8 k g/m2 NAVEEN ([facility]) Body weight 2150.4 [oz_av] 2150.4 [oz_av] ATHHEATHER A ([facility]) Body height 63 [in_i] 63 [in_i] NAVEEN ([facility]) Body mass index (BMI) [Ratio] 23.8 kg/m2 23.8 k g/m2 NAVEEN ([facility]) Body weight 2150.4 [oz_av] 2150.4 [oz_av] ATHEN A ([facility]) Body height 63 [in_i] 63 [in_i] NAVEEN ([facility]) Body mass index (BMI) [Ratio] 23.8 kg/m2 23.8 k g/m2 NAVEEN ([facility]) Body weight 2150.4 [oz_av] 2150.4 [oz_av] ATHEN A ([facility]) Body height 63 [in_i] 63 [in_i] NAVEEN ([facility]) Body mass index (BMI) [Ratio] 23.8 kg/m2 23.8 k g/m2 NAVEEN ([facility]) Body weight 2150.4 [oz_av] 2150.4 [oz_av] ATHEN A ([facility]) Body height 63 [in_i] 63 [in_i] NAVEEN ([facility]) Body mass index (BMI) [Ratio] 23.8 kg/m2 23.8 k g/m2 NAVEEN ([facility]) Body weight 2150.4 [oz_av] 2150.4 [oz_av] ATHEN A ([facility]) Body height 63 [in_i] 63 [in_i] NAVEEN ([facility]) Body height 63 [in_i] 63 [in_i] NAVEEN ([facility]) Body height 63 [in_i] 63 [in_i] NAVEEN ([facility]) Body height 63 [in_i] 63 [in_i] NAVEEN ([facility]) Body height 63 [in_i] 63 [in_i] NAVEEN ([facility]) Body height 63 [in_i] 63 [in_i] NAVEEN ([facility]) Body height 63 [in_i] 63 [in_i] NAVEEN ([facility]) Body height 63 [in_i] 63 [in_i] NAVEEN ([facility]) Body height 63 [in_i] 63 [in_i] NAVEEN ([facility]) Body height 63 [in_i] 63 [in_i] NAVEEN ([facility]) Body height 63 [in_i] 63 [in_i] NAVEEN ([facility]) Body height 63 [in_i] 63 [in_i] NAVEEN ([facility]) Body height 63 [in_i] 63 [in_i] NAVEEN ([facility]) Body height 63 [in_i] 63 [in_i] NAVEEN ([facility]) Body height 63 [in_i] 63 [in_i] NAVEEN ([facility]) Body height 63 [in_i] 63 [in_i] NAVEEN ([facility]) Body height 63 [in_i] 63 [in_i] NAVEEN ([facility]) Body height 63 [in_i] 63 [in_i] NAVEEN ([facility]) Body height 63 [in_i] 63 [in_i] NAVEEN ([facility]) Body height 63 [in_i] 63 [in_i] NAVEEN ([facility]) Body height 63 [in_i] 63 [in_i] NAVEEN ([facility]) Body height 63 [in_i] 63 [in_i] NAVEEN ([facility]) Body weight 2008 [oz_av] 2008 [oz_av] NAVEEN ([facility]) Body height 63 [in_i] 63 [in_i] NAVEEN ([facility]) Body mass index (BMI) [Ratio] 22.2 kg/m2 22.2 k g/m2 NAVEEN ([facility]) Systolic blood pressure 131 mm[Hg] 131 mm[Hg] A THENA ([facility]) Diastolic blood pressure 85 mm[Hg] 85 mm[Hg] NAVEEN ([facility]) Body height 63 [in_i] 63 [in_i] NAVEEN ([facility]) Diastolic blood pressure 85 mm[Hg] 85 mm[Hg] NAVEEN ([facility]) Systolic blood pressure 131 mm[Hg] 131 mm[Hg] A THENA ([facility]) Body mass index (BMI) [Ratio] 22.2 kg/m2 22.2 k g/m2 NAVEEN ([facility]) Body weight 2008 [oz_av] 2008 [oz_av] NAVEEN ([facility]) Systolic blood pressure 131 mm[Hg] 131 mm[Hg] A THENA ([facility]) Body weight 2008 [oz_av] 2008 [oz_av] NAVEEN ([facility]) Diastolic blood pressure 85 mm[Hg] 85 mm[Hg] NAVEEN ([facility]) Body height 63 [in_i] 63 [in_i] NAVEEN ([facility]) Body mass index (BMI) [Ratio] 22.2 kg/m2 22.2 k g/m2 NAVEEN ([facility]) Body mass index (BMI) [Ratio] 22.2 kg/m2 22.2 k g/m2 NAVEEN ([facility]) Systolic blood pressure 131 mm[Hg] 131 mm[Hg] A [facility] ([facility]) Diastolic blood pressure 85 mm[Hg] 85 mm[Hg] NAVEEN ([facility]) Body weight 2008 [oz_av] 2008 [oz_av] NAVEEN ([facility]) Body height 63 [in_i] 63 [in_i] NAVEEN ([facility]) Diastolic blood pressure 85 mm[Hg] 85 mm[Hg] NAVEEN ([facility]) Body height 63 [in_i] 63 [in_i] NAVEEN ([facility]) Body mass index (BMI) [Ratio] 22.2 kg/m2 22.2 k g/m2 NAVEEN ([facility]) Systolic blood pressure 131 mm[Hg] 131 mm[Hg] A THENA ([facility]) Body weight 2008 [oz_av] 2008 [oz_av] NAVEEN ([facility]) Diastolic blood pressure 85 mm[Hg] 85 mm[Hg] NVAEEN ([facility]) Body height 63 [in_i] 63 [in_i] NAVEEN ([facility]) Body mass index (BMI) [Ratio] 22.2 kg/m2 22.2 k g/m2 NAVEEN ([facility]) Systolic blood pressure 131 mm[Hg] 131 mm[Hg] A THENA ([facility]) Body weight 2008 [oz_av] 2008 [oz_av] NAVEEN ([facility]) Diastolic blood pressure 85 mm[Hg] 85 mm[Hg] NAVEEN ([facility]) Body height 63 [in_i] 63 [in_i] NAVEEN ([facility]) Body mass index (BMI) [Ratio] 22.2 kg/m2 22.2 k g/m2 NAVEEN ([facility]) Systolic blood pressure 131 mm[Hg] 131 mm[Hg] A THENA ([facility]) Body weight 2008 [oz_av] 2008 [oz_av] NAVEEN ([facility]) Diastolic blood pressure 85 mm[Hg] 85 mm[Hg] NAVEEN ([facility]) Body height 63 [in_i] 63 [in_i] NAVEEN ([facility]) Body mass index (BMI) [Ratio] 22.2 kg/m2 22.2 k g/m2 NAVEEN ([facility]) Systolic blood pressure 131 mm[Hg] 131 mm[Hg] A THENA ([facility]) Body weight 2008 [oz_av] 2008 [oz_av] NAVEEN ([facility]) Diastolic blood pressure 85 mm[Hg] 85 mm[Hg] NAVEEN ([facility]) Body height 63 [in_i] 63 [in_i] NAVEEN ([facility]) Body mass index (BMI) [Ratio] 22.2 kg/m2 22.2 k g/m2 NAVEEN ([facility]) Systolic blood pressure 131 mm[Hg] 131 mm[Hg] A THENA ([facility]) Body weight 2008 [oz_av] 2008 [oz_av] NAVEEN ([facility]) Diastolic blood pressure 85 mm[Hg] 85 mm[Hg] NAVEEN ([facility]) Diastolic blood pressure 85 mm[Hg] 85 mm[Hg] NAVEEN ([facility]) Body height 63 [in_i] 63 [in_i] NAVEEN ([facility]) Body mass index (BMI) [Ratio] 22.2 kg/m2 22.2 k g/m2 NAVEEN ([facility]) Body height 63 [in_i] 63 [in_i] NAVEEN ([facility]) Body mass index (BMI) [Ratio] 22.2 kg/m2 22.2 k g/m2 NAVEEN ([facility]) Diastolic blood pressure 85 mm[Hg] 85 mm[Hg] NAVEEN ([facility]) Systolic blood pressure 131 mm[Hg] 131 mm[Hg] A [facility] ([facility]) Body weight 2008 [oz_av] 2008 [oz_av] NAVEEN ([facility]) Systolic blood pressure 131 mm[Hg] 131 mm[Hg] A THENA ([facility]) Body weight 2008 [oz_av] 2008 [oz_av] NAVEEN ([facility]) Diastolic blood pressure 85 mm[Hg] 85 mm[Hg] NAVEEN ([facility]) Body height 63 [in_i] 63 [in_i] NAVEEN ([facility]) Body mass index (BMI) [Ratio] 22.2 kg/m2 22.2 k g/m2 NAVEEN ([facility]) Systolic blood pressure 131 mm[Hg] 131 mm[Hg] A THENA ([facility]) Body weight 2008 [oz_av] 2008 [oz_av] NAVEEN ([facility]) Body height 63 [in_i] 63 [in_i] NAVEEN ([facility]) Body mass index (BMI) [Ratio] 22.2 kg/m2 22.2 k g/m2 NAVEEN ([facility]) Systolic blood pressure 131 mm[Hg] 131 mm[Hg] A THENA ([facility]) Body weight 2008 [oz_av] 2008 [oz_av] NAVEEN ([facility]) Diastolic blood pressure 85 mm[Hg] 85 mm[Hg] NAVEEN ([facility]) Body height 63 [in_i] 63 [in_i] NAVEEN ([facility]) Body mass index (BMI) [Ratio] 22.2 kg/m2 22.2 k g/m2 NAVEEN ([facility]) Systolic blood pressure 131 mm[Hg] 131 mm[Hg] A [facility] ([facility]) Body weight 2008 [oz_av] 2008 [oz_av] NAVEEN ([facility]) Body height 63 [in_i] 63 [in_i] NAVEEN ([facility]) Diastolic blood pressure 85 mm[Hg] 85 mm[Hg] NAVEEN ([facility]) Body mass index (BMI) [Ratio] 22.2 kg/m2 22.2 k g/m2 NAVEEN ([facility]) Systolic blood pressure 131 mm[Hg] 131 mm[Hg] A THENA ([facility]) Body weight 2008 [oz_av] 2008 [oz_av] NAVEEN ([facility]) Diastolic blood pressure 85 mm[Hg] 85 mm[Hg] NAVEEN ([facility]) Body height 63 [in_i] 63 [in_i] NAVEEN ([facility]) Body mass index (BMI) [Ratio] 22.2 kg/m2 22.2 k g/m2 NAVEEN ([facility]) Systolic blood pressure 131 mm[Hg] 131 mm[Hg] A THENA ([facility]) Body weight 2008 [oz_av] 2008 [oz_av] NAVEEN ([facility]) Diastolic blood pressure 85 mm[Hg] 85 mm[Hg] NAVEEN ([facility]) Body height 63 [in_i] 63 [in_i] NAVEEN ([facility]) Body mass index (BMI) [Ratio] 22.2 kg/m2 22.2 k g/m2 NAVEEN ([facility]) Systolic blood pressure 131 mm[Hg] 131 mm[Hg] A THENA ([facility]) Body weight 2008 [oz_av] 2008 [oz_av] NAVEEN ([facility]) Diastolic blood pressure 85 mm[Hg] 85 mm[Hg] NAVEEN ([facility]) Body height 63 [in_i] 63 [in_i] NAVEEN ([facility]) Body mass index (BMI) [Ratio] 22.2 kg/m2 22.2 k g/m2 NAVEEN ([facility]) Systolic blood pressure 131 mm[Hg] 131 mm[Hg] A THENA ([facility]) Body weight 2008 [oz_av] 2008 [oz_av] NAVEEN ([facility]) Diastolic blood pressure 85 mm[Hg] 85 mm[Hg] NAVEEN ([facility]) Body height 63 [in_i] 63 [in_i] NAVEEN ([facility]) Body mass index (BMI) [Ratio] 22.2 kg/m2 22.2 k g/m2 NAVEEN ([facility]) Systolic blood pressure 131 mm[Hg] 131 mm[Hg] A [facility] ([facility]) Body weight 2008 [oz_av] 2008 [oz_av] NAVEEN ([facility]) Diastolic blood pressure 85 mm[Hg] 85 mm[Hg] NAVEEN ([facility]) Body height 63 [in_i] 63 [in_i] NAVEEN ([facility]) Body mass index (BMI) [Ratio] 22.2 kg/m2 22.2 k g/m2 NAVEEN ([facility]) Systolic blood pressure 131 mm[Hg] 131 mm[Hg] A THENA ([facility]) Body weight 2008 [oz_av] 2008 [oz_av] NAVEEN ([facility]) Body weight 2008 [oz_av] 2008 [oz_av] NAVEEN ([facility]) Diastolic blood pressure 85 mm[Hg] 85 mm[Hg] NAVEEN ([facility]) Body height 63 [in_i] 63 [in_i] NAVEEN ([facility]) Body mass index (BMI) [Ratio] 22.2 kg/m2 22.2 k g/m2 NAVEEN ([facility]) Systolic blood pressure 131 mm[Hg] 131 mm[Hg] A THENA ([facility]) Diastolic blood pressure 85 mm[Hg] 85 mm[Hg] NAVEEN ([facility]) Body height 63 [in_i] 63 [in_i] NAVEEN ([facility]) Body mass index (BMI) [Ratio] 22.2 kg/m2 22.2 k g/m2 NAVEEN ([facility]) Systolic blood pressure 131 mm[Hg] 131 mm[Hg] A [facility] ([facility]) Body weight 2008 [oz_av] 2008 [oz_av] NAVEEN ([facility]) Diastolic blood pressure 85 mm[Hg] 85 mm[Hg] NAVEEN ([facility]) Body height 63 [in_i] 63 [in_i] NAVEEN ([facility]) Body mass index (BMI) [Ratio] 22.2 kg/m2 22.2 k g/m2 NAVEEN ([facility]) Systolic blood pressure 131 mm[Hg] 131 mm[Hg] A [facility] ([facility]) Body weight 2008 [oz_av] 2008 [oz_av] NAVEEN ([facility]) Diastolic blood pressure 85 mm[Hg] 85 mm[Hg] NAVEEN ([facility]) Body height 63 [in_i] 63 [in_i] NAVEEN ([facility]) Body mass index (BMI) [Ratio] 22.2 kg/m2 22.2 k g/m2 NAVEEN ([facility]) Systolic blood pressure 131 mm[Hg] 131 mm[Hg] A [facility] ([facility]) Body weight 2008 [oz_av] 2008 [oz_av] NAVEEN ([facility]) Diastolic blood pressure 85 mm[Hg] 85 mm[Hg] NAVEEN ([facility]) Body height 63 [in_i] 63 [in_i] NAVEEN ([facility]) Body mass index (BMI) [Ratio] 22.2 kg/m2 22.2 k g/m2 NAVEEN ([facility]) Systolic blood pressure 131 mm[Hg] 131 mm[Hg] A [facility] ([facility]) Body weight 2008 [oz_av] 2008 [oz_av] NAVEEN ([facility]) Diastolic blood pressure 85 mm[Hg] 85 mm[Hg] NAVEEN ([facility]) Body height 63 [in_i] 63 [in_i] NAVEEN ([facility]) Body mass index (BMI) [Ratio] 22.2 kg/m2 22.2 k g/m2 NAVEEN ([facility]) Systolic blood pressure 131 mm[Hg] 131 mm[Hg] A [facility] ([facility]) Body weight 2008 [oz_av] 2008 [oz_av] NAVEEN ([facility]) Diastolic blood pressure 85 mm[Hg] 85 mm[Hg] NAVEEN ([facility]) Body height 63 [in_i] 63 [in_i] NAVEEN ([facility]) Body mass index (BMI) [Ratio] 22.2 kg/m2 22.2 k g/m2 NAVEEN ([facility]) Systolic blood pressure 131 mm[Hg] 131 mm[Hg] A [facility] ([facility]) Body weight 2008 [oz_av] 2008 [oz_av] NAVEEN ([facility]) Body mass index (BMI) [Ratio] 22.2 kg/m2 22.2 k g/m2 NAVEEN ([facility]) Systolic blood pressure 131 mm[Hg] 131 mm[Hg] A THENA ([facility]) Body weight 2008 [oz_av] 2008 [oz_av] NAVEEN ([facility]) Diastolic blood pressure 85 mm[Hg] 85 mm[Hg] NAVEEN ([facility]) Body height 63 [in_i] 63 [in_i] NAVEEN ([facility]) Diastolic blood pressure 71 mm[Hg] 71 mm[Hg] NAVEEN ([facility]) Body height 63 [in_i] 63 [in_i] NAVEEN ([facility]) Body mass index (BMI) [Ratio] 23.89 kg/m2 23.89 kg/m2 NAVEEN ([facility]) Systolic blood pressure 105 mm[Hg] 105 mm[Hg] A THENA ([facility]) Body weight 2150.08 [oz_av] 2150.08 [oz_av] ATH BRISEIDA ([facility]) Diastolic blood pressure 71 mm[Hg] 71 mm[Hg] NAVEEN ([facility]) Body height 63 [in_i] 63 [in_i] NAVEEN ([facility]) Body mass index (BMI) [Ratio] 23.89 kg/m2 23.89 kg/m2 NAVEEN ([facility]) Systolic blood pressure 105 mm[Hg] 105 mm[Hg] A [facility] ([facility]) Body weight 2150.08 [oz_av] 2150.08 [oz_av] ATH BRISEIDA ([facility]) Diastolic blood pressure 71 mm[Hg] 71 mm[Hg] NAVEEN ([facility]) Body height 63 [in_i] 63 [in_i] NAVEEN ([facility]) Body mass index (BMI) [Ratio] 23.89 kg/m2 23.89 kg/m2 NAVEEN ([facility]) Systolic blood pressure 105 mm[Hg] 105 mm[Hg] A [facility] ([facility]) Body weight 2150.08 [oz_av] 2150.08 [oz_av] ATH BRISEIDA ([facility]) Body height 63 [in_i] 63 [in_i] NAVEEN ([facility]) Diastolic blood pressure 71 mm[Hg] 71 mm[Hg] NAVEEN ([facility]) Body mass index (BMI) [Ratio] 23.89 kg/m2 23.89 kg/m2 NAVEEN ([facility]) Systolic blood pressure 105 mm[Hg] 105 mm[Hg] A [facility] ([facility]) Body weight 2150.08 [oz_av] 2150.08 [oz_av] ATH BRISEIDA ([facility]) Diastolic blood pressure 71 mm[Hg] 71 mm[Hg] NAVEEN ([facility]) Body mass index (BMI) [Ratio] 23.89 kg/m2 23.89 kg/m2 NAVEEN ([facility]) Systolic blood pressure 105 mm[Hg] 105 mm[Hg] A [facility] ([facility]) Body weight 2150.08 [oz_av] 2150.08 [oz_av] ATH BRISEIDA ([facility]) Body height 63 [in_i] 63 [in_i] NAVEEN ([facility]) Diastolic blood pressure 71 mm[Hg] 71 mm[Hg] NAVEEN ([facility]) Body height 63 [in_i] 63 [in_i] NAVEEN ([facility]) Body mass index (BMI) [Ratio] 23.89 kg/m2 23.89 kg/m2 NAVEEN ([facility]) Systolic blood pressure 105 mm[Hg] 105 mm[Hg] A [facility] ([facility]) Body weight 2150.08 [oz_av] 2150.08 [oz_av] ATH BRISEIDA ([facility]) Diastolic blood pressure 71 mm[Hg] 71 mm[Hg] NAVEEN ([facility]) Body height 63 [in_i] 63 [in_i] NAVEEN ([facility]) Body mass index (BMI) [Ratio] 23.89 kg/m2 23.89 kg/m2 NAVEEN ([facility]) Systolic blood pressure 105 mm[Hg] 105 mm[Hg] A [facility] ([facility]) Body weight 2150.08 [oz_av] 2150.08 [oz_av] ATH BRISEIDA ([facility]) Diastolic blood pressure 71 mm[Hg] 71 mm[Hg] NAVEEN ([facility]) Body height 63 [in_i] 63 [in_i] NAVEEN ([facility]) Body mass index (BMI) [Ratio] 23.89 kg/m2 23.89 kg/m2 NAVEEN ([facility]) Systolic blood pressure 105 mm[Hg] 105 mm[Hg] A [facility] ([facility]) Body weight 2150.08 [oz_av] 2150.08 [oz_av] ATH BRISEIDA ([facility]) Diastolic blood pressure 71 mm[Hg] 71 mm[Hg] NAVEEN ([facility]) Body height 63 [in_i] 63 [in_i] NAVEEN ([facility]) Body mass index (BMI) [Ratio] 23.89 kg/m2 23.89 kg/m2 NAVEEN ([facility]) Systolic blood pressure 105 mm[Hg] 105 mm[Hg] A [facility] ([facility]) Body weight 2150.08 [oz_av] 2150.08 [oz_av] ATH BRISEIDA ([facility]) Diastolic blood pressure 71 mm[Hg] 71 mm[Hg] NAVEEN ([facility]) Body height 63 [in_i] 63 [in_i] NAVEEN ([facility]) Body mass index (BMI) [Ratio] 23.89 kg/m2 23.89 kg/m2 NAVEEN ([facility]) Systolic blood pressure 105 mm[Hg] 105 mm[Hg] A [facility] ([facility]) Body weight 2150.08 [oz_av] 2150.08 [oz_av] ATH BRISEIDA ([facility]) Diastolic blood pressure 71 mm[Hg] 71 mm[Hg] NAVEEN ([facility]) Body height 63 [in_i] 63 [in_i] NAVEEN ([facility]) Body mass index (BMI) [Ratio] 23.89 kg/m2 23.89 kg/m2 NAVEEN ([facility]) Systolic blood pressure 105 mm[Hg] 105 mm[Hg] A [facility] ([facility]) Body weight 2150.08 [oz_av] 2150.08 [oz_av] ATH BRISEIDA ([facility]) Diastolic blood pressure 71 mm[Hg] 71 mm[Hg] NAVEEN ([facility]) Body height 63 [in_i] 63 [in_i] NAVEEN ([facility]) Body mass index (BMI) [Ratio] 23.89 kg/m2 23.89 kg/m2 NAVEEN ([facility]) Systolic blood pressure 105 mm[Hg] 105 mm[Hg] A THENA ([facility]) Body weight 2150.08 [oz_av] 2150.08 [oz_av] ATH BRISEIDA ([facility]) Diastolic blood pressure 71 mm[Hg] 71 mm[Hg] NAVEEN ([facility]) Body height 63 [in_i] 63 [in_i] NAEVEN ([facility]) Body mass index (BMI) [Ratio] 23.89 kg/m2 23.89 kg/m2 NAVEEN ([facility]) Systolic blood pressure 105 mm[Hg] 105 mm[Hg] A [facility] ([facility]) Body weight 2150.08 [oz_av] 2150.08 [oz_av] ATH BRISEIDA ([facility]) Diastolic blood pressure 71 mm[Hg] 71 mm[Hg] NAVEEN ([facility]) Body height 63 [in_i] 63 [in_i] NAVEEN ([facility]) Body mass index (BMI) [Ratio] 23.89 kg/m2 23.89 kg/m2 NAVEEN ([facility]) Systolic blood pressure 105 mm[Hg] 105 mm[Hg] A THENA ([facility]) Body weight 2150.08 [oz_av] 2150.08 [oz_av] ATH BRISEIDA ([facility]) Diastolic blood pressure 71 mm[Hg] 71 mm[Hg] NAVEEN ([facility]) Body height 63 [in_i] 63 [in_i] NAVEEN ([facility]) Body mass index (BMI) [Ratio] 23.89 kg/m2 23.89 kg/m2 NAVEEN ([facility]) Systolic blood pressure 105 mm[Hg] 105 mm[Hg] A [facility] ([facility]) Body weight 2150.08 [oz_av] 2150.08 [oz_av] ATH BRISEIDA ([facility]) Diastolic blood pressure 71 mm[Hg] 71 mm[Hg] NAVEEN ([facility]) Body height 63 [in_i] 63 [in_i] NAVEEN ([facility]) Body mass index (BMI) [Ratio] 23.89 kg/m2 23.89 kg/m2 NAVEEN ([facility]) Systolic blood pressure 105 mm[Hg] 105 mm[Hg] A THENA ([facility]) Body weight 2150.08 [oz_av] 2150.08 [oz_av] ATH BRISEIDA ([facility]) Diastolic blood pressure 71 mm[Hg] 71 mm[Hg] NAVEEN ([facility]) Body height 63 [in_i] 63 [in_i] NAVEEN ([facility]) Body mass index (BMI) [Ratio] 23.89 kg/m2 23.89 kg/m2 NAVEEN ([facility]) Systolic blood pressure 105 mm[Hg] 105 mm[Hg] A [facility] ([facility]) Body weight 2150.08 [oz_av] 2150.08 [oz_av] ATH BRISEIDA ([facility]) Patient Treatment Plan of Care Planned Activity Planned Date Details Description Data Source (s) Trazodone Hydrochloride 150 MG Oral Tablet 05/15/2020 12:00:[address] [facility] ([facility]) Trazodone Hydrochloride 150 MG Oral Tablet 05/15/2020 12:00:[address] [place]EN ([facility]) Trazodone Hydrochloride 150 MG Oral Tablet 05/15/2020 12:00:[address] [place]EN ([facility]) Trazodone Hydrochloride 50 MG Oral Tablet NAVEEN ([facility]) Trazodone Hydrochloride 150 MG Oral Tablet NAVEEN ([facility]) aripiprazole 5 MG Oral Tablet NAVEEN ([facility]) aripiprazole 15 MG Oral Tablet NAVEEN ([facility]) aripiprazole 10 MG Oral Tablet NAVEEN ([facility]) Trazodone Hydrochloride 50 MG Oral Tablet NAVEEN ([facility]) Trazodone Hydrochloride 150 MG Oral Tablet NAVEEN ([facility]) aripiprazole 5 MG Oral Tablet NAVEEN ([facility]) aripiprazole 15 MG Oral Tablet NAVEEN ([facility]) aripiprazole 10 MG Oral Tablet NAVEEN ([facility]) Trazodone Hydrochloride 50 MG Oral Tablet NAVEEN ([facility]) Trazodone Hydrochloride 150 MG Oral Tablet NAVEEN ([facility]) aripiprazole 5 MG Oral Tablet NAVEEN ([facility]) aripiprazole 15 MG Oral Tablet NAVEEN ([facility]) aripiprazole 10 MG Oral Tablet NAVEEN ([facility]) Trazodone Hydrochloride 50 MG Oral Tablet NAVEEN ([facility]) Trazodone Hydrochloride 150 MG Oral Tablet NAVEEN ([facility]) aripiprazole 5 MG Oral Tablet NAVEEN ([facility]) aripiprazole 15 MG Oral Tablet NAVEEN ([facility]) aripiprazole 10 MG Oral Tablet NAVEEN ([facility]) Trazodone Hydrochloride 50 MG Oral Tablet NAVEEN ([facility]) aripiprazole 5 MG Oral Tablet NAVEEN ([facility]) aripiprazole 15 MG Oral Tablet NAVEEN ([facility]) aripiprazole 10 MG Oral Tablet NAVEEN ([facility]) Trazodone Hydrochloride 50 MG Oral Tablet NAVEEN ([facility]) aripiprazole 5 MG Oral Tablet NAVEEN ([facility]) aripiprazole 15 MG Oral Tablet NAVEEN ([facility]) aripiprazole 10 MG Oral Tablet NAVEEN ([facility]) Trazodone Hydrochloride 50 MG Oral Tablet NAVEEN ([facility]) aripiprazole 5 MG Oral Tablet NAVEEN ([facility]) aripiprazole 15 MG Oral Tablet NAVEEN ([facility]) aripiprazole 10 MG Oral Tablet NAVEEN ([facility]) Trazodone Hydrochloride 50 MG Oral Tablet NAVEEN ([facility]) aripiprazole 5 MG Oral Tablet NAVEEN ([facility]) aripiprazole 15 MG Oral Tablet NAVEEN ([facility]) aripiprazole 10 MG Oral Tablet NAVEEN ([facility]) Trazodone Hydrochloride 50 MG Oral Tablet NAVEEN ([facility]) Sertraline 50 MG Oral Tablet NAVEEN ([facility]) aripiprazole 5 MG Oral Tablet NAVEEN ([facility]) aripiprazole 15 MG Oral Tablet NAVEEN ([facility]) aripiprazole 10 MG Oral Tablet NAVEEN ([facility]) Trazodone Hydrochloride 50 MG Oral Tablet NAVEEN ([facility]) Sertraline 50 MG Oral Tablet NAVEEN ([facility]) aripiprazole 5 MG Oral Tablet NAVEEN ([facility]) aripiprazole 15 MG Oral Tablet NAVEEN ([facility]) aripiprazole 10 MG Oral Tablet NAVEEN ([facility]) Trazodone Hydrochloride 50 MG Oral Tablet NAVEEN ([facility]) Sertraline 50 MG Oral Tablet NAVEEN ([facility]) aripiprazole 5 MG Oral Tablet NAVEEN ([facility]) aripiprazole 15 MG Oral Tablet NAVEEN ([facility]) aripiprazole 10 MG Oral Tablet NAVEEN ([facility]) Trazodone Hydrochloride 50 MG Oral Tablet NAVEEN ([facility]) Sertraline 50 MG Oral Tablet NAVEEN ([facility]) aripiprazole 5 MG Oral Tablet NAVEEN ([facility]) aripiprazole 15 MG Oral Tablet NAVEEN ([facility]) aripiprazole 10 MG Oral Tablet NAVEEN ([facility]) Trazodone Hydrochloride 50 MG Oral Tablet NAVEEN ([facility]) Sertraline 50 MG Oral Tablet NAVEEN ([facility]) aripiprazole 5 MG Oral Tablet NAVEEN ([facility]) aripiprazole 15 MG Oral Tablet NAVEEN ([facility]) aripiprazole 10 MG Oral Tablet NAVEEN ([facility]) Trazodone Hydrochloride 50 MG Oral Tablet NAVEEN ([facility]) Sertraline 50 MG Oral Tablet NAVEEN ([facility]) aripiprazole 5 MG Oral Tablet NAVEEN ([facility]) aripiprazole 15 MG Oral Tablet NAVEEN ([facility]) aripiprazole 10 MG Oral Tablet NAVEEN ([facility]) Trazodone Hydrochloride 50 MG Oral Tablet NAVEEN ([facility]) Sertraline 50 MG Oral Tablet NAVEEN ([facility]) aripiprazole 5 MG Oral Tablet NAVEEN ([facility]) aripiprazole 15 MG Oral Tablet NAVEEN ([facility]) aripiprazole 10 MG Oral Tablet NAVEEN ([facility]) Trazodone Hydrochloride 50 MG Oral Tablet NAVEEN ([facility]) Sertraline 50 MG Oral Tablet NAVEEN ([facility]) aripiprazole 5 MG Oral Tablet NAVEEN ([facility]) aripiprazole 15 MG Oral Tablet NAVEEN ([facility]) aripiprazole 10 MG Oral Tablet NAVEEN ([facility]) Trazodone Hydrochloride 50 MG Oral Tablet NAVEEN ([facility]) Sertraline 50 MG Oral Tablet NAVEEN ([facility]) aripiprazole 5 MG Oral Tablet NAVEEN ([facility]) aripiprazole 15 MG Oral Tablet NAVEEN ([facility]) aripiprazole 10 MG Oral Tablet NAVEEN ([facility]) Trazodone Hydrochloride 50 MG Oral Tablet NAVEEN ([facility]) Sertraline 50 MG Oral Tablet NAVEEN ([facility]) aripiprazole 5 MG Oral Tablet NAVEEN ([facility]) aripiprazole 15 MG Oral Tablet NAVEEN ([facility]) aripiprazole 10 MG Oral Tablet NAVEEN ([facility]) Trazodone Hydrochloride 50 MG Oral Tablet NAVEEN ([facility]) Sertraline 50 MG Oral Tablet NAVEEN ([facility]) Sertraline 100 MG Oral Tablet NAVEEN ([facility]) gabapentin 600 MG Oral Tablet NAVEEN ([facility]) aripiprazole 5 MG Oral Tablet NAVEEN ([facility]) aripiprazole 10 MG Oral Tablet NAVEEN ([facility]) Sertraline 50 MG Oral Tablet NAVEEN ([facility]) aripiprazole 5 MG Oral Tablet NAVEEN ([facility]) aripiprazole 10 MG Oral Tablet NAVEEN ([facility]) Sertraline 50 MG Oral Tablet NAVEEN ([facility]) aripiprazole 5 MG Oral Tablet NAVEEN ([facility]) aripiprazole 10 MG Oral Tablet NAVEEN ([facility]) Sertraline 50 MG Oral Tablet NAVEEN ([facility]) aripiprazole 5 MG Oral Tablet NAVEEN ([facility]) aripiprazole 10 MG Oral Tablet NAVEEN ([facility]) aripiprazole 10 MG Oral Tablet NAVEEN ([facility]) Sertraline 50 MG Oral Tablet NAVEEN ([facility]) aripiprazole 5 MG Oral Tablet NAVEEN ([facility]) aripiprazole 10 MG Oral Tablet NAVEEN ([facility]) Sertraline 50 MG Oral Tablet NAVEEN ([facility]) aripiprazole 5 MG Oral Tablet NAVEEN ([facility]) aripiprazole 10 MG Oral Tablet NAVEEN ([facility]) Sertraline 50 MG Oral Tablet NAVEEN ([facility]) aripiprazole 5 MG Oral Tablet NAVEEN ([facility]) aripiprazole 10 MG Oral Tablet NAVEEN ([facility]) Sertraline 50 MG Oral Tablet NAVEEN ([facility]) aripiprazole 5 MG Oral Tablet NAVEEN ([facility]) aripiprazole 10 MG Oral Tablet NAVEEN ([facility]) Sertraline 50 MG Oral Tablet NAVEEN ([facility]) aripiprazole 5 MG Oral Tablet NAVEEN ([facility]) aripiprazole 10 MG Oral Tablet NAVEEN ([facility]) Sertraline 50 MG Oral Tablet NAVEEN ([facility]) Sertraline 50 MG Oral Tablet NAVEEN ([facility] aripiprazole 5 MG Oral Tablet NAVEEN ([facility])
[2021-02-12] MEDS ORDERED: WELLTAB38 PO (22:55)
[2021-02-12] MEDS ORDERED: ZOLO100T PO (22:55)
[2021-02-12] MEDS ORDERED: BUPR75TA5 PO (22:55)
--- OUTSIDE RECORDS SUMMARY | 2021-02-12 23:55 | CCD ---
Author Author [facility] Organization [facility] Address Unknown Phone Unavailable Care Team Providers Care Rand Sewer Name Role Phone Oksana Montes FINANCIAL AID DIRECTOR Unavailable Unavailable Oksana Montes FINANCIAL AID DIRECTOR Unavailable Unavailable Oksana Montes FINANCIAL AID DIRECTOR Unavailable Unavailable Oksana Montes FINANCIAL AID DIRECTOR Unavailable Unavailable Oksana Montesshua FINANCIAL AID DIRECTOR Unavailable Unavailable Oksana Montes FINANCIAL AID DIRECTOR Unavailable Unavailable Isabel Villareal FINANCIAL AID DIRECTOR Unavailable Unavailable Isabel Villareal FINANCIAL AID DIRECTOR Unavailable Unavailable Monterey, L Pinky FINANCIAL AID DIRECTOR Unavailable Unavailable Monterey, L Pinky FINANCIAL AID DIRECTOR Unavailable Unavailable Monterey, L Pinky FINANCIAL AID DIRECTOR Unavailable Unavailable Monterey, L Pinky FINANCIAL AID DIRECTOR Unavailable Unavailable Monterey, L Pinky FINANCIAL AID DIRECTOR Unavailable Unavailable Monterey, L Pinky FINANCIAL AID DIRECTOR Unavailable Unavailable Monterey, L Pinky FINANCIAL AID DIRECTOR Unavailable Unavailable Monterey, L Pinky FINANCIAL AID DIRECTOR Unavailable Unavailable Monterey, L Pinky FINANCIAL AID DIRECTOR Unavailable Unavailable Monterey, L Pinky FINANCIAL AID DIRECTOR Unavailable Unavailable Monterey, L Pinky FINANCIAL AID DIRECTOR Unavailable Unavailable Karina Conrad Unavailable [phone] Scordo, M Deb PA Unavailable Unavailable Scordo, [...] Unavailable Scordo, M Deb PA Unavailable Unavailable Mary, H Florina FINANCIAL AID DIRECTOR Unavailable Unavailable Mary, H Florina FINANCIAL AID DIRECTOR Unavailable Unavailable Mary, H Florina FINANCIAL AID DIRECTOR Unavailable Unavailable Mary, H Florina FINANCIAL AID DIRECTOR Unavailable Unavailable Mary, H Florina FINANCIAL AID DIRECTOR Unavailable Unavailable Mary, H Florina FINANCIAL AID DIRECTOR Unavailable Unavailable Mary, H Florina FINANCIAL AID DIRECTOR Unavailable Unavailable Mary, H Florina FINANCIAL AID DIRECTOR Unavailable Unavailable Mary, H Florina FINANCIAL AID DIRECTOR Unavailable Unavailable Mary, H Florina FINANCIAL AID DIRECTOR Unavailable Unavailable Mary, H Florina FINANCIAL AID DIRECTOR Unavailable Unavailable Mary, H Florina FINANCIAL AID DIRECTOR Unavailable Unavailable Mary, H Florina FINANCIAL AID DIRECTOR Unavailable Unavailable Mary, H Florina FINANCIAL AID DIRECTOR Unavailable Unavailable Mary, H Florina FINANCIAL AID DIRECTOR Unavailable Unavailable Mary, H Florina FINANCIAL AID DIRECTOR Unavailable Unavailable Mary, H Florina FINANCIAL AID DIRECTOR Unavailable Unavailable Mary, H Florina FINANCIAL AID DIRECTOR Unavailable Unavailable Mary, H Florina FINANCIAL AID DIRECTOR Unavailable Unavailable Mary, H Florina FINANCIAL AID DIRECTOR Unavailable Unavailable Mary, H Florina FINANCIAL AID DIRECTOR Unavailable Unavailable Mary, H Florina FINANCIAL AID DIRECTOR Unavailable Unavailable Mary, H Florina FINANCIAL AID DIRECTOR Unavailable Unavailable Mary, H Florina FINANCIAL AID DIRECTOR Unavailable Unavailable Mary, H Florina FINANCIAL AID DIRECTOR Unavailable Unavailable Mary, H Florina FINANCIAL AID DIRECTOR Unavailable Unavailable Mary, H Florina FINANCIAL AID DIRECTOR Unavailable Unavailable Mary, H Florina FINANCIAL AID DIRECTOR Unavailable Unavailable Mary, H Florina FINANCIAL AID DIRECTOR Unavailable Unavailable Mary, H Florina FINANCIAL AID DIRECTOR Unavailable Unavailable Mary, H Florina FINANCIAL AID DIRECTOR Unavailable Unavailable Mary, H Florina FINANCIAL AID DIRECTOR Unavailable Unavailable Mary, H Florina FINANCIAL AID DIRECTOR Unavailable Unavailable Mary, H Florina FINANCIAL AID DIRECTOR Unavailable Unavailable Mary, H Florina FINANCIAL AID DIRECTOR Unavailable Unavailable Mary, H Florina FINANCIAL AID DIRECTOR Unavailable Unavailable Mary, H Florina FINANCIAL AID DIRECTOR Unavailable Unavailable Mary, H Florina FINANCIAL AID DIRECTOR Unavailable Unavailable Mary, H Florina FINANCIAL AID DIRECTOR Unavailable Unavailable Mary, H Florina FINANCIAL AID DIRECTOR Unavailable Unavailable Mary, H Florina FINANCIAL AID DIRECTOR Unavailable Unavailable Mary, H Florina FINANCIAL AID DIRECTOR Unavailable Unavailable Mary, H Florina FINANCIAL AID DIRECTOR Unavailable Unavailable Mary, H Florina FINANCIAL AID DIRECTOR Unavailable Unavailable Mary, H Florina FINANCIAL AID DIRECTOR Unavailable Unavailable Mary, H Florina FINANCIAL AID DIRECTOR Unavailable Unavailable Mary, H Florina FINANCIAL AID DIRECTOR Unavailable Unavailable Mary, H Florina FINANCIAL AID DIRECTOR Unavailable Unavailable Mary, H Florina FINANCIAL AID DIRECTOR Unavailable Unavailable Mary, H Florina FINANCIAL AID DIRECTOR Unavailable Unavailable Mary, H Florina FINANCIAL AID DIRECTOR Unavailable Unavailable Mary, H Florina FINANCIAL AID DIRECTOR Unavailable Unavailable Mary, H Florina FINANCIAL AID DIRECTOR Unavailable Unavailable Mary, H Florina FINANCIAL AID DIRECTOR Unavailable Unavailable Mary, H Florina FINANCIAL AID DIRECTOR Unavailable Unavailable Mary, H Florina FINANCIAL AID DIRECTOR Unavailable Unavailable Mary, H Florina FINANCIAL AID DIRECTOR Unavailable Unavailable Mary, H Florina FINANCIAL AID DIRECTOR Unavailable Unavailable Mary, H Florina FINANCIAL AID DIRECTOR Unavailable Unavailable SANTAMARIA, L MARY JO SWAN [...] Unavailable Unavailable Robert Khan MD Unavailable Unavailable CARINE NASCIMENTO MD Unavailable [...] is protected by Article 27-F of the [facility] Public Health law. If you continue you may have access to information: Regarding HIV / AIDS; Provided by facilities licensed or operated by the [facility] Office of Mental Health; or Provided by the [facility] Office for People With Developmental Disabilities. If such information is present, then the following [facility] mandated warning applies: This information has [...] law may result in a fine or usp sentence or both. A general authorization for the release of medical or other information is NOT sufficient authorization for further disc losure. Allergies and Adverse Reactions Type Description Substance Reaction Status Data Source(s ) Drug allergy No Known Drug Allergies No Known Drug Allergies [facility] Food allergy No Known Food Allergies No Known Food Allergies [facility] Allergy to substance Allergy to substance Allergy to substance [place] ([facility]) Allergy to substance Allergy to substance Allergy to substance [place] ([facility]) Allergy to substance Allergy to substance Allergy to substance [place] ([facility]) Family History Family Member Name Family Member Gender Family Member Status Date o f Status Description Data Source(s) Unknown Condition [facility] Unknown Condition [facility] Unknown Condition [facility] Unknown Condition [facility] Unknown Condition [facility] Unknown Condition [facility] Unknown Condition [facility] Unknown Male Problem [facility] ([facility] Unknown Unknown Problem [facility] ([facility], ) Encounters Encounter Providers Location Date Indications Data Source(s ) Outpatient Attender: Florina Thakkarerrer: Florina Mercedes NP 02/08/2021 09:42:00 AM EDT [facility] Pyschotherapy 30 Minute with [facility] 01/05/2021 12:00:00 AM EDT [facility]) Outpatient Attender: Florina Mercedes NP 01/03/2021 04:16:0 0 PM EDT 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) Pyschotherapy 30 Minute with [facility] 11/23/2020 12:00:00 AM EDT [facility] (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 Pyschotherapy 30 Minute with Patient [facility] 10/26/2020 12:00:00 AM EDT [facility] ([facility]) Diagnostic Evaluation with medical services [facility] 10/17/2020 12:00:00 AM EDT [facility] ([facility]) Pyschotherapy 30 Minute with [facility] 10/12/2020 12:00:00 AM EDT [facility] ([facility]) Outpatient Attender: Karla Luis DO 09/29 08:00:00 AM EDT - 11/06/2020 10:16:00 AM EDT [facility] Discharge cancelled. Disregard status an d discharged date. Outpatient Attender: Florina Schofield: Florina Mercedes NP 09/19/2020 03:53:00 PM EDT - 09/19/2020 04:58:00 PM EDT [facility] Pyschotherapy 30 Minute with Patient [facility] 09/19/2020 12:00:00 AM EDT [facility] ([facility]) Pyschotherapy 30 Minute with [facility] 09/19/2020 12:00:00 AM EDT [facility] ([facility]) Outpatient Attender: Shonda Cabrera DO 09/13/2020 12:14 :00 PM EDT [facility] Outpatient Attender: Karla Luis DO 09/01/2020 02:14:00 PM EDT Z11.59,Z11.3 [facility] Z11.59,Z11.3 Outpatient Attender: Karla Hair: Florina Mercedes NP 09/01/2020 12:40:00 PM EDT - 09/01/2020 02:10:00 PM EDT [facility] Pyschotherapy 30 Minute with Patient [facility] 08/29/2020 12:00:00 AM ED[facility] Outpatient Attender: Favian [facility] [employer] 08/25/2020 02:50:0 0 PM EDT COLLECTION [facility] COLLECTION Karina Houston, ASP NET PROGRAMMER-R: [address] [place] [address], Ph. Attender: Karina Conrad [facility] Medical 08/23/2020 12:00:00 AM EDT [place] ([facility]) Outpatient Attender: Florina Josueeferrer: Florina Mercedes NP 08/14/2020 07:43:00 AM EDT - 09/06/2020 11:37:00 AM EDT [facility] SCOLIOSIS Patient discharged. non-billable [facility] 08/10/2020 12:00:00 AM EDT [place] ([facility]) Karina Houston, ASP NET PROGRAMMER-R: [address] [place] [address], Ph. Attender: Karina Conrad [facility] Medical 08/09/2020 12:00:00 AM EDT [place] ([facility]) Karina Conrad, ASP NET PROGRAMMER-R: [address] [place] [address], Ph. Attender: Karina Conrad [facility] Medical 08/09/2020 12:00:00 AM EDT [place] ([facility]) Outpatient Attender: Florina Mercedes NP 08/02/2020 09:12:00 AM E DT Z02.89 [facility] Z02.89 Outpatient Attender: Florina Mercedes NPReferrer: Florina Mercedes NP 07/31/2020 07:56:00 AM EDT - 07/31/2020 09:01:00 AM EDT [facility] Karina Conrad, ASP NET PROGRAMMER-R: [address] [place] [address], Ph. Attender: Karina Conrad [facility] Medical 07/26/2020 12:00:00 AM EDT [place] ([facility]) Karina Conrad, ASP NET PROGRAMMER-R: [address] [place] [address], Ph. Attender: Karina Conrad [facility] Medical 07/26/2020 12:00:00 AM EDT [place] ([facility]) Karina Conrad, ASP NET PROGRAMMER-R: [address] [place] [address], Ph. Attender: Karina Conrad [facility] Medical 07/26/2020 12:00:00 AM EDT [facility]) Marley Khan MD: [address], [place] [address], Ph. Attender: Marley Khan MD [facility] Medical 07/20/2020 12:00:00 AM EDT [place] ([facility]) Marley Khan MD: [address], [place] [address], Ph. Attender: Marley Khan MD [facility] Medical 07/20/2020 12:00:00 AM EDT [place] ([facility]) Marley Khan MD: [address], [place] [address], Ph. Attender: Marley Khan MD [facility] Medical 07/20/2020 12:00:00 AM EDT [facility]) Marley Khan MD: [address] [place] [address], Ph. Attender: Marley Khan MD [facility] Medical 07/20/2020 12:00:00 AM EDT [facility]) Karina Conrad, ASP NET PROGRAMMER-R: [address] [place] [address], Ph. Attender: Karina Conrad [facility] Medical 07/12/2020 12:00:00 AM EDT [place] ([facility]) Karina Conrad, ASP NET PROGRAMMER-R: [address] [place] [address], Ph. Attender: Karina Conrad [facility] Medical 07/12/2020 12:00:00 AM EDT [place] ([facility]) Karina Conrad, ASP NET PROGRAMMER-R: [address] [place] [address], Ph. Attender: Karina Conrad [facility] Medical 07/12/2020 12:00:00 AM EDT [place] ([facility]) Karina Conrad, ASP NET PROGRAMMER-R: [address] [place] [address], Ph. Attender: Karina Conrad [facility] Medical 07/12/2020 12:00:00 AM EDT [place] ([facility]) Karina Conrad, ASP NET PROGRAMMER-R: [address] [place] [address], Ph. Attender: Karina Conrad [facility] Medical 07/12/2020 12:00:00 AM EDT [place] ([facility]) Karina Conrad, ASP NET PROGRAMMER-R: [address], [place] [address], Ph. Attender: Karina Conrad [facility] Medical 07/04/2020 12:00:00 AM EDT [place] ([facility]) Karina Conrad, ASP NET PROGRAMMER-R: [address], [place] [address], Ph. Attender: Karina Conrad [facility] Medical 07/04/2020 12:00:00 AM EDT [place] ([facility]) Karina Conrad, ASP NET PROGRAMMER-R: [address], [place] [address], Ph. Attender: Karina Conrad [facility] Medical 07/04/2020 12:00:00 AM EDT [place] ([facility]) Karina Conrad, ASP NET PROGRAMMER-R: [address], [place] [address], Ph. Attender: Karina Conard [facility] Medical 07/04/2020 12:00:00 AM EDT [place] ([facility]) Karina Conrad, ASP NET PROGRAMMER-R: [address], [place] [address], Ph. Attender: Karina Conrad [facility] Medical 07/04/2020 12:00:00 AM EDT [place] ([facility]) Karina Conrad, ASP NET PROGRAMMER-R: [address], [place] [address], Ph. Attender: Karina Conrad [facility] Medical 07/04/2020 12:00:00 AM EDT [place] ([facility]) Karina Conrad, ASP NET PROGRAMMER-R: [address], [place] [address], Ph. Attender: Karina Conrad [facility] Medical 06/26/2020 12:00:00 AM EDT [place] ([facility]) Karina Conrad, ASP NET PROGRAMMER-R: [address], [place] [address], Ph. Attender: Karina Conrad [facility] Medical 06/26/2020 12:00:00 AM EDT [place] ([facility]) Karina Conrad, ASP NET PROGRAMMER-R: [address], [place] [address], Ph. Attender: Karina Conrad [facility] Medical 06/26/2020 12:00:00 AM EDT [place] ([facility]) Karina Conrad, ASP NET PROGRAMMER-R: [address], [place] [address], Ph. Attender: Karina Conrad [facility] Medical 06/26/2020 12:00:00 AM EDT [place] ([facility]) Karina Conrad, ASP NET PROGRAMMER-R: [address], [place] [address], Ph. Attender: Karina Conrad [facility] Medical 06/26/2020 12:00:00 AM EDT [place] ([facility]) Karina Conrad, ASP NET PROGRAMMER-R: [address], [place] [address], Ph. Attender: Karina Conrad [facility] Medical 06/26/2020 12:00:00 AM EDT [place] ([facility]) Karina Conrad, ASP NET PROGRAMMER-R: [address], [place] [address], Ph. Attender: Karina Conrad [facility] Medical 06/26/2020 12:00:00 AM EDT [place] ([facility]) Karina Conrad, ASP NET PROGRAMMER-R: [address], [place] [address], Ph. Attender: Karina Conrad [facility] Medical 06/12/2020 12:00:00 AM EST [place] ([facility]) Karina Conrad, ASP NET PROGRAMMER-R: [address], [place] [address], Ph. Attender: Karina Conrad [facility] Medical 06/12/2020 12:00:00 AM EST [place] ([facility]) Karina Conrad, ASP NET PROGRAMMER-R: [address], [place] [address], Ph. Attender: Karina Conrad [facility] Medical 06/12/2020 12:00:00 AM EST [place] ([facility]) Karina Conrad, ASP NET PROGRAMMER-R: [address], [place] [address], Ph. Attender: Karina Conrad [facility] Medical 06/12/2020 12:00:00 AM EST [place] ([facility]) Karina Conrad, ASP NET PROGRAMMER-R: [address], [place] [address], Ph. Attender: Karina Conrad [facility] Medical 06/12/2020 12:00:00 AM EST [place] ([facility]) Karina Conrad, ASP NET PROGRAMMER-R: [address], [place] [address], Ph. Attender: Karina Conrad [facility] Medical 06/12/2020 12:00:00 AM EST [place] ([facility]) Karina Conrad, ASP NET PROGRAMMER-R: [address], [place] [address], Ph. 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 Attender: Karina Conrad [facility] Medical 06/05/2020 12:00:00 AM EST [place] ([facility]) Karina Conrad, ASP NET PROGRAMMER-R: [address], [place] [address], Ph. Attender: Karina Conrad [facility] Medical 06/05/2020 12:00:00 AM EST [place] ([facility]) Karina Conrad, ASP NET PROGRAMMER-R: [address], [place] [address], Ph. Attender: Karina Conrad [facility] Medical 06/05/2020 12:00:00 AM EST [place] ([facility]) Karina Conrad, ASP NET PROGRAMMER-R: [address], [place] [address], Ph. Attender: Karina Conrad [facility] Medical 06/05/2020 12:00:00 AM EST [place] ([facility]) Karina Conrad, ASP NET PROGRAMMER-R: [address], [place] [address], Ph. Attender: Karina Conrad [facility] Medical 06/05/2020 12:00:00 AM EST [place] ([facility]) Karina Conrad, ASP NET PROGRAMMER-R: [address], [place] [address], Ph. Attender: Karina Conrad [facility] Medical 06/05/2020 12:00:00 AM EST [place] ([facility]) Karina Conrad, ASP NET PROGRAMMER-R: [address], [place] [address], Ph. Attender: Karina Conrad [facility] Medical 06/05/2020 12:00:00 AM EST [place] ([facility]) Karina Conrad, ASP NET PROGRAMMER-R: [address], [place] [address], Ph. Attender: Karina Conrad [facility] Medical 06/05/2020 12:00:00 AM EST [place] ([facility]) Karina Conrad, ASP NET PROGRAMMER-R: [address], [place] [address], Ph. Attender: Karina Conrad [facility] Medical 06/05/2020 12:00:00 AM EST [place] ([facility]) Karina Conrad, ASP NET PROGRAMMER-R: [address], [place] [address], Ph. Attender: Karina Conrad [facility] Medical 06/05/2020 12:00:00 AM EST [place] ([facility]) Karina Conrad, ASP NET PROGRAMMER-R: [address], [place] [address], Ph. Attender: Karina Conrad [facility] Medical 05/29/2020 12:00:00 AM EST [place] ([facility]) Karina Conrad, ASP NET PROGRAMMER-R: [address], [place] [address], Ph. Attender: Karina Conrad [facility] Medical 05/29/2020 12:00:00 AM EST [place] ([facility]) Karina Conrad, ASP NET PROGRAMMER-R: [address], [place] [address], Ph. Attender: Karina Conrad [facility] Medical 05/29/2020 12:00:00 AM EST [place] ([facility]) Karina Conrad, ASP NET PROGRAMMER-R: [address], [place] [address], Ph. Attender: Karina Conrad [facility] Medical 05/29/2020 12:00:00 AM EST [place] ([facility]) Karina Conrad, ASP NET PROGRAMMER-R: [address], [place] [address], Ph. Attender: Karina Conrad [facility] Medical 05/29/2020 12:00:00 AM EST [place] ([facility]) Karina Conrad, ASP NET PROGRAMMER-R: [address], [place] [address], Ph. Attender: Karina Conrad [facility] Medical 05/29/2020 12:00:00 AM EST [place] ([facility]) Karina Conrad, ASP NET PROGRAMMER-R: [address], [place] [address], Ph. Attender: Karina Conrad [facility] Medical 05/29/2020 12:00:00 AM EST [place] ([facility]) Karina Conrad, ASP NET PROGRAMMER-R: [address], [place] [address], Ph. Attender: Karina Conrad [facility] Medical 05/29/2020 12:00:00 AM EST [place] ([facility]) Karina Conrad, ASP NET PROGRAMMER-R: [address], [place] [address], Ph. Attender: Karina Conrad [facility] Medical 05/29/2020 12:00:00 AM EST [place] ([facility]) Karina Conrad, ASP NET PROGRAMMER-R: [address], [place] [address], Ph. Attender: Karina Conrad [facility] Medical 05/29/2020 12:00:00 AM EST [place] ([facility]) Karina Conrad, ASP NET PROGRAMMER-R: [address], [place] [address], Ph. Attender: Karina Conrad [facility] Medical 05/29/2020 12:00:00 AM EST [place] ([facility]) Karina Conrad, ASP NET PROGRAMMER-R: [address], [place] [address], Ph. Attender: Karina Conrad [facility] Medical 05/29/2020 12:00:00 AM EST [place] ([facility]) Karina Conrad, ASP NET PROGRAMMER-R: [address], [place] [address], Ph. Attender: Karina Conrad [facility] 05/29/2020 12:00:00 AM EST NAVEEN ([facility]) Karina Conrad, ASP NET PROGRAMMER-R: [address], [place] [address], Ph. Attender: Karina Conrad [facility] 05/29/2020 12:00:00 AM EST NAVEEN ([facility]) Karina Conrad, ASP NET PROGRAMMER-R: [address], [place] [address], Ph. Attender: Karina Conrad [facility] 05/22/2020 12:00:00 AM EST NAVEEN ([facility]) Karina Conrad, ASP NET PROGRAMMER-R: [address], [place] [address], Ph. Attender: Karina Conrad [facility] 05/22/2020 12:00:00 AM EST NAVEEN ([facility]) Karina Conrad, ASP NET PROGRAMMER-R: [address], [place] [address], Ph. Attender: Karina Conrad [facility] 05/22/2020 12:00:00 AM EST NAVEEN ([facility]) Karina Conrad, ASP NET PROGRAMMER-R: [address], [place] [address], Ph. Attender: Karina Conrad [facility] 05/22/2020 12:00:00 AM EST NAVEEN ([facility]) Karina Conrad, ASP NET PROGRAMMER-R: [address], [place] [address], Ph. Attender: Karina Conrad [facility] 05/22/2020 12:00:00 AM EST NAVEEN ([facility]) Karina Conrad, ASP NET PROGRAMMER-R: [address], [place] [address], Ph. Attender: Karina Conrad [facility] 05/22/2020 12:00:00 AM EST NAVEEN ([facility]) Karina Conrad, ASP NET PROGRAMMER-R: [address], [place] [address], Ph. Attender: Karina Conrad [facility] 05/22/2020 12:00:00 AM EST NAVEEN ([facility]) Karina Conrad, ASP NET PROGRAMMER-R: [address], [place] [address], Ph. Attender: Karina Conrad [facility] 05/22/2020 12:00:00 AM EST NAVEEN ([facility]) Karina Conrad, ASP NET PROGRAMMER-R: [address], [place] [address], Ph. Attender: Karina Conrad [facility] 05/22/2020 12:00:00 AM EST NAVEEN ([facility]) Karina Conrad, ASP NET PROGRAMMER-R: [address], [place] [address], Ph. Attender: Karina Conrad [facility] 05/22/2020 12:00:00 AM EST NAVEEN ([facility]) Karina Conrad, ASP NET PROGRAMMER-R: [address], [place] [address], Ph. Attender: Karina Conrad [facility] 05/22/2020 12:00:00 AM EST NAVEEN ([facility]) Karina Conrad, ASP NET PROGRAMMER-R: [address], [place] [address], Ph. Attender: Karina Conrad [facility] 05/22/2020 12:00:00 AM EST NAVEEN ([facility]) Karina Conrad, ASP NET PROGRAMMER-R: [address], [place] [address], Ph. Attender: Karina Conrad [facility] 05/22/2020 12:00:00 AM EST NAVEEN ([facility]) Karina Conrad, ASP NET PROGRAMMER-R: [address], [place] [address], Ph. Attender: Karina Conrad [facility] 05/22/2020 12:00:00 AM EST NAVEEN ([facility]) Karina Conrad, ASP NET PROGRAMMER-R: [address], [place] [address], Ph. Attender: Karina Conrad [facility] 05/22/2020 12:00:00 AM EST NAVEEN ([facility]) Karina Conrad, ASP NET PROGRAMMER-R: [address], [place] [address], Ph. Attender: Karina Conrad [facility] 05/16/2020 12:00:00 AM EST NAVEEN ([facility]) Karina Conrda, ASP NET PROGRAMMER-R: [address], [place] [address], Ph. Attender: Karina Conrad [facility] 05/16/2020 12:00:00 AM EST NAVEEN ([facility]) Karina Conrad, ASP NET PROGRAMMER-R: [address], [place] [address], Ph. Attender: Karina Conrad [facility] 05/16/2020 12:00:00 AM EST NAVEEN ([facility]) Karina Conrad, ASP NET PROGRAMMER-R: [address], [place] [address], Ph. Attender: Karina Conrad [facility] 05/16/2020 12:00:00 AM EST NAVEEN ([facility]) Karina Conrad, ASP NET PROGRAMMER-R: [address], [place] [address], Ph. Attender: Karina Conrad [facility] 05/16/2020 12:00:00 AM EST NAVEEN ([facility]) Karina Conrad, ASP NET PROGRAMMER-R: [address], [place] [address], Ph. Attender: Karina Conrad [facility] 05/16/2020 12:00:00 AM EST NAVEEN ([facility]) Karina Conrad, ASP NET PROGRAMMER-R: [address], [place] [address], Ph. Attender: Karina Conrad [facility] 05/16/2020 12:00:00 AM EST NAVEEN ([facility]) Karina Conrad, ASP NET PROGRAMMER-R: [address], [place] [address], Ph. Attender: Karina Conrad [facility] 05/16/2020 12:00:00 AM EST NAVEEN ([facility]) Karina Conrad, ASP NET PROGRAMMER-R: [address], [place] [address], Ph. Attender: Karina Conrad [facility] 05/16/2020 12:00:00 AM EST NAVEEN ([facility]) Karina Conrad, ASP NET PROGRAMMER-R: [address], [place] [address], Ph. Attender: Karina Conrad [facility] 05/16/2020 12:00:00 AM EST NAVEEN ([facility]) Karina Conrad, ASP NET PROGRAMMER-R: [address], [place] [address], Ph. Attender: Karina Conrad [facility] 05/16/2020 12:00:00 AM EST NAVEEN ([facility]) Karina Conrad, ASP NET PROGRAMMER-R: [address], [place] [address], Ph. Attender: Karina Conrad [facility] 05/16/2020 12:00:00 AM EST NAVEEN ([facility]) Karina Conrad, ASP NET PROGRAMMER-R: [address], [place] [address], Ph. Attender: Karina Conrad [facility] 05/16/2020 12:00:00 AM EST NAVEEN ([facility]) Karina Conrad, ASP NET PROGRAMMER-R: [address], [place] [address], Ph. Attender: Karina Conrad [facility] 05/16/2020 12:00:00 AM EST NAVEEN ([facility]) Karina Conrad, ASP NET PROGRAMMER-R: [address], [place] [address], Ph. Attender: Karina Conrad [facility] Medical 05/16/2020 12:00:00 AM EST NAVEEN ([facility]) Karina Conrad, ASP NET PROGRAMMER-R: [address], [place] [address], Ph. Attender: Karina Conrad [facility] 05/16/2020 12:00:00 AM EST NAVEEN ([facility]) Karina Conrad, ASP NET PROGRAMMER-R: [address], [place] [address], Ph. Attender: Karina Conrad [facility] 05/16/2020 12:00:00 AM EST NAVEEN ([facility]) Marley Khan MD: [address], [place] [address], Ph. Attender: Marley Khan MD [facility] Medical 05/15/2020 12:00:00 AM EST NAVEEN ([facility]) Marley Khan MD: [address], [place] [address], Ph. Attender: Marley Khan MD [facility] Medical 05/15/2020 12:00:00 AM EST NAVEEN ([facility]) Marley Khan MD: [address], [place] [address], Ph. Attender: Marley Khan MD [facility] Medical 05/15/2020 12:00:00 AM EST NAVEEN ([facility]) Marley Khan MD: [address], [place] [address], Ph. Attender: Marley Khan MD [facility] Medical 05/15/2020 12:00:00 AM EST NAVEEN ([facility]) Marley Khan MD: [address], [place] [address], Ph. Attender: Marley Khan MD [facility] Medical 05/15/2020 12:00:00 AM EST NAVEEN ([facility]) Marley Khan MD: [address], [place] [address], Ph. Attender: Marley Khan MD [facility] Medical 05/15/2020 12:00:00 AM EST NAVEEN ([facility]) Marley Khan MD: [address], [place] [address], Ph. Attender: Marley Khan MD [facility] Medical 05/15/2020 12:00:00 AM EST NAVEEN ([facility]) Marley Khan MD: [address], [place] [address], Ph. Attender: Marley Khan MD [facility] Medical 05/15/2020 12:00:00 AM EST NAVEEN ([facility]) Marley Khan MD: [address], [place] [address], Ph. Attender: Marley Khan MD [facility] Medical 05/15/2020 12:00:00 AM EST NAVEEN ([facility]) Marley Khan MD: [address], [place] [address], Ph. Attender: Marley Khan MD [facility] Medical 05/15/2020 12:00:00 AM EST NAVEEN ([facility]) Marley Kahn MD: [address], [place] [address], Ph. Attender: Marley Khan MD [facility] Medical 05/15/2020 12:00:00 AM EST NAVEEN ([facility]) Marley Khan MD: [address], [place] [address], Ph. Attender: Marley Khan MD [facility] Medical 05/15/2020 12:00:00 AM EST NAVEEN [facility]) Marley Khan MD: [address], [place] [address], Ph. Attender: Marley Khan MD [facility] Medical 05/15/2020 12:00:00 AM EST NAVEEN ([facility]) Marley Khan MD: [address], [place] [address], Ph. Attender: Marley Khan MD [facility] Medical 05/15/2020 12:00:00 AM EST NAVEEN ([facility]) Marley Khan MD: [address], [place] [address], Ph. Attender: Marley Khan MD [facility] Medical 05/15/2020 12:00:00 AM EST NAVEEN ([facility]) Marley Khan MD: [address], [place] [address], Ph. Attender: Marley Khan MD [facility] Medical 05/15/2020 12:00:00 AM EST NAVEEN ([facility]) Marley Khan MD: [address] [place] [address], Ph. Attender: Marley Khan MD [facility] Medical 05/15/2020 12:00:00 AM EST NAVEEN ([facility]) Marley Khan MD: [address] [place] [address], Ph. Attender: Marley Khan MD [facility] Medical 05/15/2020 12:00:00 AM EST NAVEEN ([facility]) Marley Khan MD: [address] [place] [address], Ph. Attender: Marley Khan MD [facility] Medical 05/15/2020 12:00:00 AM EST NAVEEN ([facility]) Karina Conrad, ASP NET PROGRAMMER-R: [address], [place] [address], Ph. Attender: Karina Conrad [facility] Medical 05/08/2020 12:00:00 AM EST NAVEEN ([facility]) Karina Conrad, ASP NET PROGRAMMER-R: [address], [place] [address], Ph. Attender: Karina Conrad [facility] Medical 05/08/2020 12:00:00 AM EST NAVEEN ([facility]) Karina Conrad, ASP NET PROGRAMMER-R: [address], [place] [address], Ph. Attender: Karina Conrad [facility] Medical 05/08/2020 12:00:00 AM EST NAVEEN ([facility]) Karina Conrad, ASP NET PROGRAMMER-R: [address], [place] [address], Ph. Attender: Karina Conrad [facility] Medical 05/08/2020 12:00:00 AM EST NAVEEN ([facility]) Karina Conrad, ASP NET PROGRAMMER-R: [address], [place] [address], Ph. Attender: Karina Conrad [facility] Medical 05/08/2020 12:00:00 AM EST NAVEEN ([facility]) Karina Conrad, ASP NET PROGRAMMER-R: [address], [place] [address], Ph. Attender: Karina Conrad [facility] Medical 05/08/2020 12:00:00 AM EST NAVEEN ([facility]) Karina Conrad, ASP NET PROGRAMMER-R: [address], [place] [address], Ph. Attender: Karina Conrad [facility] Medical 05/08/2020 12:00:00 AM EST NAVEEN ([facility]) Karina Conrad, ASP NET PROGRAMMER-R: [address], [place] [address], Ph. Attender: Karina Conrad [place] [facility] Medical 05/08/2020 12:00:00 AM EST NAVEEN ([facility]) Karina Conrad, ASP NET PROGRAMMER-R: [address], [place] [address], Ph. Attender: Karina Conrad [facility] Medical 05/08/2020 12:00:00 AM EST NAVEEN ([facility]) Karina Conrad, ASP NET PROGRAMMER-R: [address], [place] [address], Ph. Attender: Karina Conrad [facility] Medical 05/08/2020 12:00:00 AM EST NAVEEN ([facility]) Karina Conrad, ASP NET PROGRAMMER-R: [address], [place] [address], Ph. Attender: Karina Conrad [facility] Medical 05/08/2020 12:00:00 AM EST NAVEEN ([facility]) Karina Conrad, ASP NET PROGRAMMER-R: [address], [place] [address], Ph. Attender: Karina Conrad [facility] Medical 05/08/2020 12:00:00 AM EST NAVEEN ([facility]) Karina Conrad, ASP NET PROGRAMMER-R: [address], [place] [address], Ph. Attender: Karina Conrad [facility] Medical 05/08/2020 12:00:00 AM EST NAVEEN ([facility]) Karina Conrad, ASP NET PROGRAMMER-R: [address], [place] [address], Ph. Attender: Karina Conrad [facility] Medical 05/08/2020 12:00:00 AM EST NAVEEN ([facility]) Karina Conrad, ASP NET PROGRAMMER-R: [address], [place] [address], Ph. Attender: Karina Conrad [facility] Medical 05/08/2020 12:00:00 AM EST NAVEEN ([facility]) Karina Conrad, ASP NET PROGRAMMER-R: [address], [place] [address], Ph. Attender: Karina Conrad [facility] Medical 05/08/2020 12:00:00 AM EST NAVEEN ([facility]) Karina Conrad, ASP NET PROGRAMMER-R: [address], [place] [address], Ph. Attender: Karina Conrad [facility] Medical 05/08/2020 12:00:00 AM EST NAVEEN ([facility]) Karina Conrad, ASP NET PROGRAMMER-R: [address], [place] [address], Ph. Attender: Karina Conrad [facility] Medical 05/08/2020 12:00:00 AM EST NAVEEN ([facility]) Karina Conrad, ASP NET PROGRAMMER-R: [address], [place] [address], Ph. Attender: Karina Conrad [facility] Medical 05/08/2020 12:00:00 AM EST NAVEEN ([facility]) Karina Conrad, ASP NET PROGRAMMER-R: [address], [place] [address], Ph. Attender: Karina Conrad [facility] Medical 05/08/2020 12:00:00 AM EST NAVEEN ([facility]) Karina Conrad, ASP NET PROGRAMMER-R: [address], [place] [address], Ph. Attender: Karina Conrad [facility] Medical 05/01/2020 12:00:00 AM EST NAVEEN ([facility]) Karina Conrad, ASP NET PROGRAMMER-R: [address], [place] [address], Ph. Attender: Karina Conrad [facility] Medical 05/01/2020 12:00:00 AM EST NAVEEN ([facility]) Karina Conrad, ASP NET PROGRAMMER-R: [address], [place] [address], Ph. Attender: Karina Conrad [facility] Medical 05/01/2020 12:00:00 AM EST NAVEEN ([facility]) Karina Conrad, ASP NET PROGRAMMER-R: [address], [place] [address], Ph. Attender: Karina Conrad [facility] Medical 05/01/2020 12:00:00 AM EST NAVEEN ([facility]) Karina Conrad, ASP NET PROGRAMMER-R: [address], [place] [address], Ph. Attender: Karina Conrad [facility] Medical 05/01/2020 12:00:00 AM EST NAVEEN ([facility]) Karina Conrad, ASP NET PROGRAMMER-R: [address], [place] [address], Ph. Attender: Karina Conrad [facility] Medical 05/01/2020 12:00:00 AM EST NAVEEN ([facility]) Karina Conrad, ASP NET PROGRAMMER-R: [address], [place] [address], Ph. Attender: Karina Conrad [facility] Medical 05/01/2020 12:00:00 AM EST NAVEEN ([facility]) Karina Conrad, ASP NET PROGRAMMER-R: [address], [place] [address], Ph. Attender: Karina Conrad [facility] Medical 05/01/2020 12:00:00 AM EST NAVEEN ([facility]) Karina Conrad, ASP NET PROGRAMMER-R: [address], [place] [address], Ph. Attender: Karina Conrad [facility] Medical 05/01/2020 12:00:00 AM EST NAVEEN ([facility]) Karina Conrad, ASP NET PROGRAMMER-R: [address], [place] [address], Ph. Attender: Karina Conrad [facility] Medical 05/01/2020 12:00:00 AM EST NAVEEN ([facility]) Karina Conrad, ASP NET PROGRAMMER-R: [address], [place] [address], Ph. Attender: Karina Conrad [facility] Medical 05/01/2020 12:00:00 AM EST NAVEEN ([facility]) Karina Conrad, ASP NET PROGRAMMER-R: [address], [place] [address], Ph. Attender: Karina Conrad [facility] Medical 05/01/2020 12:00:00 AM EST NAVEEN ([facility]) Karina Conrad, ASP NET PROGRAMMER-R: [address], [place] [address], Ph. Attender: Karina Conrad [facility] Medical 05/01/2020 12:00:00 AM EST NAVEEN ([facility]) Karina Conrad, ASP NET PROGRAMMER-R: [address], [place] [address], Ph. Attender: Karina Conrad [facility] Medical 05/01/2020 12:00:00 AM EST NAVEEN ([facility]) Karina Conrad, ASP NET PROGRAMMER-R: [address], [place] [address], Ph. Attender: Karina Conrad [facility] Medical 05/01/2020 12:00:00 AM EST NAVEEN ([facility]) Karina Conrad, ASP NET PROGRAMMER-R: [address], [place] [address], Ph. Attender: Karina Conrad [facility] Medical 05/01/2020 12:00:00 AM EST NAVEEN ([facility]) Karina Conrad, ASP NET PROGRAMMER-R: [address], [place] [address], Ph. Attender: Karina Conrad [facility] Medical 05/01/2020 12:00:00 AM EST NAVEEN ([facility]) Karina Conrad, ASP NET PROGRAMMER-R: [address], [place] [address], Ph. Attender: Karina Conrad [facility] Medical 05/01/2020 12:00:00 AM EST NAVEEN ([facility]) Karina Conrad, ASP NET PROGRAMMER-R: [address], [place] [address], Ph. Attender: Karina Conrad [facility] Medical 05/01/2020 12:00:00 AM EST NAVEEN ([facility]) Karina Conrad, ASP NET PROGRAMMER-R: [address], [place] [address], Ph. Attender: Karina Conrad [facility] Medical 05/01/2020 12:00:00 AM EST NAVEEN ([facility]) Karina Conrad, ASP NET PROGRAMMER-R: [address], [place] [address], Ph. Attender: Karina Conrad [facility] Medical 04/24/2020 12:00:00 AM EST NAVEEN ([facility]) Karina Conrad, ASP NET PROGRAMMER-R: [address], [place] [address], Ph. Attender: Karina Conrad [facility] Medical 04/24/2020 12:00:00 AM EST NAVEEN ([facility]) Karina Conrad, ASP NET PROGRAMMER-R: [address], [place] [address], Ph. Attender: Karina Conrad [facility] Medical 04/24/2020 12:00:00 AM EST NAVEEN ([facility]) Karina Conrad, ASP NET PROGRAMMER-R: [address], [place] [address], Ph. Attender: Karina Conrad [facility] Medical 04/24/2020 12:00:00 AM EST NAVEEN ([facility]) Karina Conrad, ASP NET PROGRAMMER-R: [address], [place] [address], Ph. Attender: Karina Conrad [facility] Medical 04/24/2020 12:00:00 AM EST NAVEEN ([facility]) Karina Conrad, ASP NET PROGRAMMER-R: [address], [place] [address], Ph. Attender: Karina Conrad [facility] Medical 04/24/2020 12:00:00 AM EST NAVEEN ([facility]) Karina Conrad, ASP NET PROGRAMMER-R: [address], [place] [address], Ph. Attender: Karina Conrad [facility] Medical 04/24/2020 12:00:00 AM EST NAVEEN ([facility]) Karina Conrad, ASP NET PROGRAMMER-R: [address], [place] [address], Ph. Attender: Karina Conrad [facility] Medical 04/24/2020 12:00:00 AM EST NAVEEN ([facility]) Karina Conrad, ASP NET PROGRAMMER-R: [address], [place] [address], Ph. Attender: Karina Conrad [facility] Medical 04/24/2020 12:00:00 AM EST NAVEEN ([facility]) Karina Conrad, ASP NET PROGRAMMER-R: [address], [place] [address], Ph. Attender: Karina Conrad [facility] Medical 04/24/2020 12:00:00 AM EST NAVEEN ([facility]) Karina Conrad, ASP NET PROGRAMMER-R: [address], [place] [address], Ph. Attender: Karina Conrad [facility] Medical 04/24/2020 12:00:00 AM EST NAVEEN ([facility]) Karina Conrad, ASP NET PROGRAMMER-R: [address], [place] [address], Ph. Attender: Karina Conrad [facility] Medical 04/24/2020 12:00:00 AM EST NAVEEN ([facility]) Karina Conrad, [employer]: [address], [address], [place] [address], Ph. Attender: Karina Conrad [facility] 04/24/2020 12:00:00 AM EST NAVEEN ([facility]) Karina Conrad, [employer]: [address], [address], [place] [address], Ph. Attender: Karina Conrad [facility] 04/24/2020 12:00:00 AM EST NAVEEN ([facility]) Karina Conrad, [employer]: [address], [address], [place] [address], Ph. Attender: Karina Conrad [facility] 04/24/2020 12:00:00 AM EST NAVEEN ([facility]) Karina Conrad, [employer]: [address], [address], [place] [address], Ph. Attender: Karina Conrad [facility] [facility] Medical 04/24/2020 12:00:00 AM EST NAVEEN ([facility]) Karina Conrad, ASP NET PROGRAMMER-R: [address], [place] [address], Ph. Attender: Karina Conrad [facility] Medical 04/24/2020 12:00:00 AM EST NAVEEN ([facility]) Karina Conrad, ASP NET PROGRAMMER-R: [address], [place] [address], Ph. Attender: Karina Conrad [facility] Medical 04/24/2020 12:00:00 AM EST NAVEEN ([facility]) Karina Conrad, ASP NET PROGRAMMER-R: [address], [place] [address], Ph. Attender: Karina Conrad [facility] Medical 04/24/2020 12:00:00 AM EST NAVEEN ([facility]) Karina Conrad, ASP NET PROGRAMMER-R: [address], [place] [address], Ph. Attender: Karina Conrad [facility] Medical 04/24/2020 12:00:00 AM EST NAVEEN ([facility]) Karina Conrad, ASP NET PROGRAMMER-R: [address], [place] [address], Ph. Attender: Karina Conrad [facility] Medical 04/24/2020 12:00:00 AM EST NAVEEN ([facility]) Deb Lanier PA-C: [address], [place] [address], Ph. Attender: Deb RIOS [facility] Medical 04/10/2020 12:00:00 AM EST NAVEEN ([facility]) Deb Lanier PA-C: [address], [place] [address], Ph. Attender: Deb RIOS [facility] Medical 04/10/2020 12:00:00 AM EST NAVEEN ([facility]) Deb Lanier PA-C: [address], [place] [address], Ph. Attender: Deb RIOS [facility] Medical 04/10/2020 12:00:00 AM EST NAVEEN ([facility]) Deb Lanier PA-C: [address], [place] [address], Ph. Attender: Deb RIOS [facility] Medical 04/10/2020 12:00:00 AM EST NAVEEN ([facility]) Deb Lanier PA-C: [address], [place] [address], Ph. Attender: Deb RIOS [facility] Medical 04/10/2020 12:00:00 AM EST NAVEEN ([facility]) Deb Lanier PA-C: [address], [place] [address], Ph. Attender: Deb RIOS [facility] Medical 04/10/2020 12:00:00 AM EST NAVEEN ([facility]) Deb Lanier PA-C: [address], [place] [address], Ph. Attender: Deb RIOS [facility] Medical 04/10/2020 12:00:00 AM EST NAVEEN ([facility]) Deb Lanier PA-C: [address], [place] [address], Ph. Attender: Deb RIOS [facility] Medical 04/10/2020 12:00:00 AM EST NAVEEN ([facility]) Deb Lanier PA-C: [address], [place] [address], Ph. Attender: Deb RIOS [facility] Medical 04/10/2020 12:00:00 AM EST NAVEEN ([facility]) Deb Lanier PA-C: [address], [place] [address], Ph. Attender: Deb RIOS [facility] Medical 04/10/2020 12:00:00 AM EST NAVEEN ([facility]) Deb Lanier PA-C: [address], [place] [address], Ph. Attender: Deb RIOS [facility] Medical 04/10/2020 12:00:00 AM EST NAVEEN ([facility]) Deb Lanier PA-C: [address], [place] [address], Ph. Attender: Deb RIOS [facility] Medical 04/10/2020 12:00:00 AM EST NAVEEN ([facility]) Deb Lanier PA-C: [address], [place] [address], Ph. Attender: Deb RIOS [facility] Medical 04/10/2020 12:00:00 AM EST NAVEEN ([facility]) Deb Lanier PA-C: [address], [place] [address], Ph. Attender: Deb RIOS [facility] Medical 04/10/2020 12:00:00 AM EST NAVEEN ([facility]) Deb Lanier PA-C: [address], [place] [address], Ph. Attender: Deb RIOS [facility] Medical 04/10/2020 12:00:00 AM EST NAVEEN ([facility]) Deb Lanier PA-C: [address], [place] [address], Ph. Attender: Deb RIOS [facility] Medical 04/10/2020 12:00:00 AM EST NAVEEN ([facility]) Deb Lanier PA-C: [address], [place] [address], Ph. Attender: Deb RIOS [facility] Medical 04/10/2020 12:00:00 AM EST NAVEEN ([facility]) Deb Lanier PA-C: [address], [place] [address], Ph. Attender: Deb RIOS [facility] Medical 04/10/2020 12:00:00 AM EST NAVEEN ([facility]) Deb Lanier PA-C: [address], [place] [address], Ph. Attender: Deb RIOS [facility] Medical 04/10/2020 12:00:00 AM EST NAVEEN ([facility]) Deb Lanier PA-C: [address], [place] [address], Ph. Attender: Deb RIOS [facility] Medical 04/10/2020 12:00:00 AM EST NAVEEN ([facility]) Deb Lanier PA-C: [address], [place] [address], Ph. Attender: Deb RIOS [facility] Medical 04/10/2020 12:00:00 AM EST NAVEEN ([facility]) Deb Lanier PA-C: [address], [place] [address], Ph. Attender: Deb RIOS [facility] Medical 04/10/2020 12:00:00 AM EST NAVEEN ([facility]) Karina Conrad, ASP NET PROGRAMMER-R: [address] [place] [address], Ph. Attender: Karina Conrad [facility] Medical 04/05/2020 12:00:00 AM EST NAVEEN ([facility]) Karina Conrad, ASP NET PROGRAMMER-R: [address] , [place] [address], Ph. Attender: Karina Conrad [facility] Medical 04/05/2020 12:00:00 AM EST NAVEEN ([facility]) Karina Conrad, ASP NET PROGRAMMER-R: [address] , [place] [address], Ph. Attender: Karina Conrad [facility] Medical 04/05/2020 12:00:00 AM EST NAVEEN ([facility]) Karina Monicalloydzeb, ASP NET PROGRAMMER-R: [address] [place] [address], Ph. Attender: Karina Houston [facility] Medical 04/05/2020 12:00:00 AM EST NAVEEN ([facility]) Karina Houston, ASP NET PROGRAMMER-R: [address] [place] [address], Ph. Attender: Karina Houston [facility] Medical 04/05/2020 12:00:00 AM EST NAVEEN ([facility]) Akrina Houston, ASP NET PROGRAMMER-R: [address] [place] [address], Ph. Attender: Karina Houston [facility] Medical 04/05/2020 12:00:00 AM EST NAVEEN ([facility]) Karina Houston, ASP NET PROGRAMMER-R: [address] [place] [address], Ph. Attender: Karina Conrad [facility] Medical 04/05/2020 12:00:00 AM EST NAVEEN ([facility]) Karina Houston, ASP NET PROGRAMMER-R: [address] [place] [address], Ph. Attender: Karina Conrad [facility] Medical 04/05/2020 12:00:00 AM EST NAVEEN ([facility]) Karina Houston, ASP NET PROGRAMMER-R: [address] [place] [address], Ph. Attender: Karina Conrad [facility] Medical 04/05/2020 12:00:00 AM EST NAVEEN ([facility]) Karina Conrad, ASP NET PROGRAMMER-R: [address] [place] [address], Ph. Attender: Karina Conrad [facility] Medical 04/05/2020 12:00:00 AM EST NAVEEN ([facility]) Karina Conrad, ASP NET PROGRAMMER-R: [address] [place] [address], Ph. Attender: Karina Conrad [facility] Medical 04/05/2020 12:00:00 AM EST NAVEEN ([facility]) Karina Lathamcaridadlloydzeb, ASP NET PROGRAMMER-R: [address] [place] [address], Ph. Attender: Karina Lathamcaridadlloydzeb [facility] Medical 04/05/2020 12:00:00 AM EST NAVEEN ([facility]) Karina Conrad, ASP NET PROGRAMMER-R: [address] [place] [address], Ph. Attender: Karina Monicalloydzeb [facility] Medical 04/05/2020 12:00:00 AM EST NAVEEN ([facility]) Karina Lathamcaridadlloydzeb, ASP NET PROGRAMMER-R: [address] [place] [address], Ph. Attender: Karina Monicalloydzeb [facility] Medical 04/05/2020 12:00:00 AM EST NAVEEN ([facility]) Karina Houston, ASP NET PROGRAMMER-R: [address] [place] [address], Ph. Attender: Karina Conrad [facility] Medical 04/05/2020 12:00:00 AM EST NAVEEN ([facility]) Karina Conrad, ASP NET PROGRAMMER-R: [address] , [place] [address], Ph. Attender: Karina Conrad [facility] Medical 04/05/2020 12:00:00 AM EST NAVEEN ([facility]) Karina Conrad, ASP NET PROGRAMMER-R: [address] , [place] [address], Ph. Attender: Karina Granadozeb [facility] Medical 04/05/2020 12:00:00 AM EST NAVEEN ([facility]) Karina Monicalloydzeb, ASP NET PROGRAMMER-R: [address] [place] [address], Ph. Attender: Karina Monicalloydzeb [facility] Medical 04/05/2020 12:00:00 AM EST NAVEEN ([facility]) Karina Conrad, ASP NET PROGRAMMER-R: [address] [place] [address], Ph. Attender: Karina Monicalloydzeb [facility] Medical 04/05/2020 12:00:00 AM EST NAVEEN ([facility]) Karina Monicalloydzeb, ASP NET PROGRAMMER-R: [address] , [place] [address], Ph. Attender: Karina Monicalloydzeb [facility] Medical 04/05/2020 12:00:00 AM EST NAVEEN ([facility]) Karina Houston, ASP NET PROGRAMMER-R: [address] [place] [address], Ph. Attender: Karina Conrad [facility] Medical 04/05/2020 12:00:00 AM EST NAVEEN ([facility]) Karina Conrad, ASP NET PROGRAMMER-R: [address] [place] [address], Ph. Attender: Karina Conrad [facility] Medical 04/05/2020 12:00:00 AM EST NAVEEN ([facility]) Karina Lathamcaridadlloydzeb, ASP NET PROGRAMMER-R: [address] [place] [address], Ph. Attender: Karina Lathamcaridadlloydzeb [facility] Medical 04/05/2020 12:00:00 AM EST NAVEEN ([facility]) Karina Lathamcaridadlloydzeb, ASP NET PROGRAMMER-R: [address] [place] [address], Ph. Attender: Karina Monicalloydzeb [facility] Medical 03/30/2020 12:00:00 AM EST NAVEEN ([facility]) Karina Lathamcaridadlloydzeb, ASP NET PROGRAMMER-R: [address] [place] [address], Ph. Attender: Karina Monicalloydzeb [facility] Medical 03/30/2020 12:00:00 AM EST NAVEEN ([facility]) Karina Houston, ASP NET PROGRAMMER-R: [address] [place] [address], Ph. Attender: Karina Monicalloydzeb [facility] Medical 03/30/2020 12:00:00 AM EST NAVEEN ([facility]) Karina Houston, ASP NET PROGRAMMER-R: [address] [place] [address], Ph. Attender: Karina Houston [facility] Medical 03/30/2020 12:00:00 AM EST NAVEEN ([facility]) Karina Houston, ASP NET PROGRAMMER-R: [address] [place] [address], Ph. Attender: Karina Conrad [facility] Medical 03/30/2020 12:00:00 AM EST NAVEEN ([facility]) Karina Conrad, ASP NET PROGRAMMER-R: [address] [place] [address], Ph. Attender: Karina Conrad [facility] Medical 03/30/2020 12:00:00 AM EST NAVEEN ([facility]) Karina Conrad, ASP NET PROGRAMMER-R: [address] [place] [address], Ph. Attender: Karina Conrad [facility] Medical 03/30/2020 12:00:00 AM EST NAVEEN ([facility]) Karina Conrad ASP NET PROGRAMMER-R: [address] [place] [address], Ph. Attender: Karina Conrad [facility] Medical 03/30/2020 12:00:00 AM EST NAVEEN ([facility]) Karina Conrad ASP NET PROGRAMMER-R: [address] [place] [address], Ph. Attender: Karina Conrad [facility] Medical 03/30/2020 12:00:00 AM EST NAVEEN ([facility]) Karina Turturro, ASP NET PROGRAMMER-R: [address] [place] [address], Ph. Attender: Karina Lathamcaridadlloydzeb [facility] Medical 03/30/2020 12:00:00 AM EST NAVEEN ([facility]) Karina Granadozeb, ASP NET PROGRAMMER-R: [address] [place] [address], Ph. Attender: Karina Lathamcaridadlloydzeb [facility] Medical 03/30/2020 12:00:00 AM EST NAVEEN ([facility]) Karina Lathamcaridadlloydzeb, ASP NET PROGRAMMER-R: [address] [place] [address], Ph. Attender: Karina Houston [facility] Medical 03/30/2020 12:00:00 AM EST NAVEEN ([facility]) Karina Granadozeb, ASP NET PROGRAMMER-R: [address] [place] [address], Ph. Attender: Karina Monicalloydzeb [facility] Medical 03/30/2020 12:00:00 AM EST NAVEEN ([facility]) Karina Houston, ASP NET PROGRAMMER-R: [address] [place] [address], Ph. Attender: Karina Houston [facility] Medical 03/30/2020 12:00:00 AM EST NAVEEN ([facility]) Karina Houston, ASP NET PROGRAMMER-R: [address] [place] [address], Ph. Attender: Karina Houston [facility] Medical 03/30/2020 12:00:00 AM EST NAVEEN ([facility]) Karina Conrad, ASP NET PROGRAMMER-R: [address] [place] [address], Ph. Attender: Karina Monicalloydzeb [facility] Medical 03/30/2020 12:00:00 AM EST NAVEEN ([facility]) Karina Granadozeb, ASP NET PROGRAMMER-R: [address] [place] [address], Ph. Attender: Karina Monicalloydzeb [facility] Medical 03/30/2020 12:00:00 AM EST NAVEEN ([facility]) Karina Conrad, ASP NET PROGRAMMER-R: [address] [place] [address], Ph. Attender: Karina Houston [facility] Medical 03/30/2020 12:00:00 AM EST NAVEEN ([facility]) Karina Lathamcaridadlloydzeb, ASP NET PROGRAMMER-R: [address] [place] [address], Ph. Attender: Karina Monicalloydzeb [facility] Medical 03/30/2020 12:00:00 AM EST NAVEEN ([facility]) Karina Houston, ASP NET PROGRAMMER-R: [address] [place] [address], Ph. Attender: Karina Houston [facility] Medical 03/30/2020 12:00:00 AM EST NAVEEN ([facility]) Karina Monicalloydzeb, ASP NET PROGRAMMER-R: [address] [place] [address], Ph. Attender: Karina Conrad [facility] Medical 03/30/2020 12:00:00 AM EST NAVEEN ([facility]) Karina Conrad, ASP NET PROGRAMMER-R: [address] [place] [address], Ph. Attender: Karina Conrad [facility] Medical 03/30/2020 12:00:00 AM EST NAVEEN ([facility]) Karina Conrad, ASP NET PROGRAMMER-R: [address] [place] [address], Ph. Attender: Karina Monicalloydo [facility] Medical 03/30/2020 12:00:00 AM EST NAVEEN ([facility]) Karina Cornad, ASP NET PROGRAMMER-R: [address] [place] [address], Ph. Attender: Karina Monicalloydo [facility] Medical 03/30/2020 12:00:00 AM EST NAVEEN ([facility]) Karina Conrad, ASP NET PROGRAMMER-R: [address] [place] [address], Ph. Attender: Karina Monicalloydzeb [facility] Medical 03/23/2020 12:00:00 AM EST NAVEEN ([facility]) Karina Granadozeb, ASP NET PROGRAMMER-R: [address] [place] [address], Ph. Attender: Karina Monicalloydo [facility] Medical 03/23/2020 12:00:00 AM EST NAVEEN ([facility]) Karina Conrad, ASP NET PROGRAMMER-R: [address] [place] [address], Ph. Attender: Karina Vannesao [facility] Medical 03/23/2020 12:00:00 AM EST NAVEEN ([facility]) Karina Lathamcaridadlloydzeb, ASP NET PROGRAMMER-R: [address] [place] [address], Ph. Attender: Karina Monicalloydzeb [facility] Medical 03/23/2020 12:00:00 AM EST NAVEEN ([facility]) Karina Monicalloydzeb, ASP NET PROGRAMMER-R: [address] [place] [address], Ph. Attender: Karina Houston [facility] Medical 03/23/2020 12:00:00 AM EST NAVEEN ([facility]) Karina Monicalloydzeb, ASP NET PROGRAMMER-R: [address] [place] [address], Ph. Attender: Karina Houston [facility] Medical 03/23/2020 12:00:00 AM EST NAVEEN ([facility]) Karina Monicalloydzeb, ASP NET PROGRAMMER-R: [address] [place] [address], Ph. Attender: Karina Conrad [facility] Medical 03/23/2020 12:00:00 AM EST NAVEEN ([facility]) Karina Monicalloydzeb, ASP NET PROGRAMMER-R: [address] [place] [address], Ph. Attender: Karina Conrad [facility] Medical 03/23/2020 12:00:00 AM EST NAVEEN ([facility]) Karina Houston, ASP NET PROGRAMMER-R: [address] [place] [address], Ph. Attender: Karina Conrad [facility] Medical 03/23/2020 12:00:00 AM EST NAVEEN ([facility]) Karina Lathamcaridadlloydzeb, ASP NET PROGRAMMER-R: [address] [place] [address], Ph. Attender: Karina Monicalloydzeb [facility] Medical 03/23/2020 12:00:00 AM EST NAVEEN ([facility]) Karina Lathamcaridadlloydzeb, ASP NET PROGRAMMER-R: [address] [place] [address], Ph. Attender: Karina Houston [facility] Medical 03/23/2020 12:00:00 AM EST NAVEEN ([facility]) Karina Houston, ASP NET PROGRAMMER-R: [address] [place] [address], Ph. Attender: Karina Houston [facility] Medical 03/23/2020 12:00:00 AM EST NAVEEN ([facility]) Karina Monicalloydzeb, ASP NET PROGRAMMER-R: [address] [place] [address], Ph. Attender: Karina Houston [facility] Medical 03/23/2020 12:00:00 AM EST NAVEEN ([facility]) Karina Monicalloydzeb, ASP NET PROGRAMMER-R: [address] [place] [address], Ph. Attender: Karina Houston [facility] Medical 03/23/2020 12:00:00 AM EST NAVEEN ([facility]) Karina Houston, ASP NET PROGRAMMER-R: [address] [place] [address], Ph. Attender: Karina Monicalloydzeb [facility] Medical 03/23/2020 12:00:00 AM EST NAVEEN ([facility]) Karina Lathamcaridadlloydzeb, ASP NET PROGRAMMER-R: [address] , [place] [address], Ph. Attender: Karina Monicalloydzeb [facility] Medical 03/23/2020 12:00:00 AM EST NAVEEN ([facility]) Karina Lathamcaridadlloydzeb, ASP NET PROGRAMMER-R: [address] , [place] [address], Ph. Attender: Karina Houston [facility] Medical 03/23/2020 12:00:00 AM EST NAVEEN ([facility]) Karina Monicalloydzeb, ASP NET PROGRAMMER-R: [address] [place] [address], Ph. Attender: Kraina Monicalloydzeb [facility] Medical 03/23/2020 12:00:00 AM EST NAVEEN ([facility]) Karina Granadozeb, ASP NET PROGRAMMER-R: [address] [place] [address], Ph. Attender: Karina Houston [facility] Medical 03/23/2020 12:00:00 AM EST NAVEEN ([facility]) Karina Monicalloydzeb, ASP NET PROGRAMMER-R: [address] [place] [address], Ph. Attender: Karina Houston [facility] Medical 03/23/2020 12:00:00 AM EST NAVEEN ([facility]) Karina Houston, ASP NET PROGRAMMER-R: [address] , [place] [address], Ph. Attender: Karina Lathamcaridadlloydzeb [facility] Medical 03/23/2020 12:00:00 AM EST NAVEEN ([facility]) Karina Conrad, ASP NET PROGRAMMER-R: [address] [place] [address], Ph. Attender: Karina Conrad [facility] Medical 03/23/2020 12:00:00 AM EST NAVEEN ([facility]) Karina Conrad, ASP NET PROGRAMMER-R: [address] [place] [address], Ph. Attender: Karina Lathamcaridadlloydzeb [facility] Medical 03/23/2020 12:00:00 AM EST NAVEEN ([facility]) Karina Monicalloydzeb, ASP NET PROGRAMMER-R: [address] [place] [address], Ph. Attender: Karina Monicalloydzeb [facility] Medical 03/23/2020 12:00:00 AM EST NAVEEN ([facility]) Karina Granadozeb, ASP NET PROGRAMMER-R: [address] [place] [address], Ph. Attender: Karina Monicalloydzeb [facility] Medical 03/23/2020 12:00:00 AM EST NAVEEN ([facility]) Karina Monicalloydzeb, ASP NET PROGRAMMER-R: [address] [place] [address], Ph. Attender: Karina Monicalloydzeb [facility] Medical 03/15/2020 12:00:00 AM EST NAVEEN ([facility]) Karina Houston, ASP NET PROGRAMMER-R: [address] , [place] [address], Ph. Attender: Karina Lathamcaridadlloydzeb [facility] 03/15/2020 12:00:00 AM EST NAVEEN ([facility]) Karina Conrad, ASP NET PROGRAMMER-R: [address] [place] [address], Ph. Attender: Karina Monicalloydo [facility] 03/15/2020 12:00:00 AM EST NAVEEN ([facility]) Karina Monicalloydzeb, ASP NET PROGRAMMER-R: [address] [place] [address], Ph. Attender: Karina Houston [facility] 03/15/2020 12:00:00 AM EST NAVEEN ([facility]) Karina Monicalloydzeb, ASP NET PROGRAMMER-R: [address] [place] [address], Ph. Attender: Karina Monicalloydo [facility] 03/15/2020 12:00:00 AM EST NAVEEN ([facility]) Karina Houston, ASP NET PROGRAMMER-R: [address] [place] [address], Ph. Attender: Karina Monicalloydo [facility] 03/15/2020 12:00:00 AM EST NAVEEN ([facility]) Karina Vannesao, ASP NET PROGRAMMER-R: [address] [place] [address], Ph. Attender: Karina Vannesao [facility] Medical 03/15/2020 12:00:00 AM EST NAVEEN ([facility]) Karinapineda Conrad, ASP NET PROGRAMMER-R: [address] [place] [address], Ph. Attender: Karina Lathamcaridadlloydzeb [facility] 03/15/2020 12:00:00 AM EST NAVEEN ([facility]) Karina Conrad, ASP NET PROGRAMMER-R: [address] [place] [address], Ph. Attender: Karina Monicalloydzeb [facility] 03/15/2020 12:00:00 AM EST NAVEEN ([facility]) Karina Monicalloydzeb, ASP NET PROGRAMMER-R: [address] [place] [address], Ph. Attender: Karina Houston [facility] 03/15/2020 12:00:00 AM EST NAVEEN ([facility]) Karina Conrad, ASP NET PROGRAMMER-R: [address] [place] [address], Ph. Attender: Karina Monicalloydzeb [facility] 03/15/2020 12:00:00 AM EST NAVEEN ([facility]) Karina Houston, ASP NET PROGRAMMER-R: [address] [place] [address], Ph. Attender: Karina Monicalloydzeb [facility] Medical 03/15/2020 12:00:00 AM EST NAVEEN ([facility]) Karina Monicalloydzeb, ASP NET PROGRAMMER-R: [address] [place] [address], Ph. Attender: Karina Houston [facility] 03/15/2020 12:00:00 AM EST NAVEEN ([facility]) Karina Conrad, ASP NET PROGRAMMER-R: [address] [place] [address], Ph. Attender: Karina Conrad [facility] 03/15/2020 12:00:00 AM EST NAVEEN ([facility]) Karina Granadozeb, ASP NET PROGRAMMER-R: [address] [place] [address], Ph. Attender: Karina Monicalloydzeb [facility] 03/15/2020 12:00:00 AM EST NAVEEN ([facility]) Karina Lathamcaridadlloydzeb, ASP NET PROGRAMMER-R: [address] [place] [address], Ph. Attender: Karina Houston [facility] 03/15/2020 12:00:00 AM EST NAVEEN ([facility]) Karina Granadozeb, ASP NET PROGRAMMER-R: [address] [place] [address], Ph. Attender: Karina Monicalloydzeb [facility] 03/15/2020 12:00:00 AM EST NAVEEN ([facility]) Karina Houston, ASP NET PROGRAMMER-R: [address] [place] [address], Ph. Attender: Karina Houston [facility] 03/15/2020 12:00:00 AM EST NAVEEN ([facility]) Karina Houston, ASP NET PROGRAMMER-R: [address] [place] [address], Ph. Attender: Karina Conrad [facility] 03/15/2020 12:00:00 AM EST NAVEEN ([facility]) Karina Conrad, ASP NET PROGRAMMER-R: [address] [place] [address], Ph. Attender: Karina Conrad [facility] 03/15/2020 12:00:00 AM EST NAVEEN ([facility]) Karina Conrad, ASP NET PROGRAMMER-R: [address] [place] [address], Ph. Attender: Karina Monicapiero [facility] 03/15/2020 12:00:00 AM EST NAVEEN ([facility]) Karina Conrad, ASP NET PROGRAMMER-R: [address] [place] [address], Ph. Attender: Karina Monicalloydzeb [facility] 03/15/2020 12:00:00 AM EST NAVEEN ([facility]) Karina Conrad, ASP NET PROGRAMMER-R: [address] [place] [address], Ph. Attender: Karina Monicalloydzeb [facility] 03/15/2020 12:00:00 AM EST NAVEEN ([facility]) Karina Granadozeb, ASP NET PROGRAMMER-R: [address] [place] [address], Ph. Attender: Karina Monicalloydzeb [facility] 03/15/2020 12:00:00 AM EST NAVEEN ([facility]) Karina Conrad, ASP NET PROGRAMMER-R: [address] [place] [address], Ph. Attender: Karina Houston [facility] 03/15/2020 12:00:00 AM EST NAVEEN ([facility]) STEVE SchreiberW-R: [address] , [place] [address], Ph. Attender: Karina Conrad [facility] 03/15/2020 12:00:00 AM EST NAVEEN ([facility]) STEVE SchreiberW-R: [address] , [place] [address], Ph. Attender: Karina Conrad [facility] Medical 03/15/2020 12:00:00 AM EST NAVEEN ([facility]) DOMINIQUE DouglasC: [address], [place] [address], Ph. Attender: Deb RIOS [facility] Medical 03/08/2020 12:00:00 AM EST NAVEEN ([facility]) Deb Lanier PA-C: [address], [place] [address], Ph. Attender: Deb RIOS [facility] Medical 03/08/2020 12:00:00 AM EST NAVEEN ([facility]) Deb Lanier PA-C: [address], [place] [address], Ph. Attender: Deb RIOS [facility] Medical 03/08/2020 12:00:00 AM EST NAVEEN ([facility]) Deb Lanier PA-C: [address], [place] [address], Ph. Attender: Deb RIOS [facility] Medical 03/08/2020 12:00:00 AM EST NAVEEN ([facility]) Deb Lanier PA-C: [address], [place] [address], Ph. Attender: Deb RIOS [facility] 03/08/2020 12:00:00 AM EST NAVEEN ([facility]) Deb Lanier PA-C: [address], [place] [address], Ph. Attender: Deb RIOS [facility] Medical 03/08/2020 12:00:00 AM EST NAVEEN ([facility]) Deb Lanier PA-C: [address], [place] [address], Ph. Attender: Deb RIOS [facility] Medical 03/08/2020 12:00:00 AM EST NAVEEN ([facility]) Deb Lanier PA-C: [address], [place] [address], Ph. Attender: Deb RIOS [facility] Medical 03/08/2020 12:00:00 AM EST NAVEEN ([facility]) Deb Lanier PA-C: [address], [place] [address], Ph. Attender: Deb RIOS [facility] Medical 03/08/2020 12:00:00 AM EST NAVEEN ([facility]) Deb Lanier PA-C: [address], [place] [address], Ph. Attender: Deb RIOS [facility] Medical 03/08/2020 12:00:00 AM EST NAVEEN ([facility]) Deb Lanier PA-C: [address], [place] [address], Ph. Attender: Deb RIOS [facility] Medical 03/08/2020 12:00:00 AM EST NAVEEN ([facility]) Deb Lanier PA-C: [address], [place] [address], Ph. Attender: Deb RIOS [facility] 03/08/2020 12:00:00 AM EST NAVEEN ([facility]) Deb Lanier PA-C: [address], [place] [address], Ph. Attender: Deb RIOS [facility] Medical 03/08/2020 12:00:00 AM EST NAVEEN ([facility]) Deb Lanier PA-C: [address], [place] [address], Ph. Attender: Deb RIOS [facility] Medical 03/08/2020 12:00:00 AM EST NAVEEN ([facility]) Deb Lanier PA-C: [address], [place] [address], Ph. Attender: Deb RIOS [facility] 03/08/2020 12:00:00 AM EST NAVEEN ([facility]) Deb Lanier PA-C: [address], [place] [address], Ph. Attender: Deb RIOS [facility] Medical 03/08/2020 12:00:00 AM EST NAVEEN ([facility]) Deb Lanier PA-C: [address], [place] [address], Ph. Attender: Deb RIOS [facility] Medical 03/08/2020 12:00:00 AM EST NAVEEN ([facility]) Deb Lanier PA-C: [address], [place] [address], Ph. Attender: Deb RIOS [facility] Medical 03/08/2020 12:00:00 AM EST NAVEEN ([facility]) Deb Lanier PA-C: [address], [place] [address], Ph. Attender: Deb RIOS [facility] 03/08/2020 12:00:00 AM EST NAVEEN ([facility]) Deb Lanier PA-C: [address], [place] [address], Ph. Attender: Deb RIOS [facility] Medical 03/08/2020 12:00:00 AM EST NAVEEN ([facility]) Deb Lanier PA-C: [address], [place] [address], Ph. Attender: Deb RIOS [facility] Medical 03/08/2020 12:00:00 AM EST NAVEEN ([facility]) Deb Lanier PA-C: [address], [place] [address], Ph. Attender: Deb RIOS [facility] Medical 03/08/2020 12:00:00 AM EST NAVEEN ([facility]) Deb Lanier PA-C: [address], [place] [address], Ph. Attender: Deb RIOS [facility] 03/08/2020 12:00:00 AM EST NAVEEN ([facility]) Deb Lanier PA-C: [address], [place] [address], Ph. Attender: Deb RIOS [facility] Medical 03/08/2020 12:00:00 AM EST NAVEEN ([facility]) Deb Lanier PA-C: [address], [place] [address], Ph. Attender: Deb RIOS [facility] Medical 03/08/2020 12:00:00 AM EST NAVEEN ([facility]) Deb Lanier PA-C: [address], [place] [address], Ph. Attender: Deb RIOS [facility] Medical 03/08/2020 12:00:00 AM EST NAVEEN ([facility]) Deb Lanier PA-C: [address], [place] [address], Ph. Attender: Deb RIOS [facility] Medical 03/08/2020 12:00:00 AM EST NAVEEN ([facility]) Deb Lanier PA-C: [address], [place] [address], Ph. Attender: Deb RIOS [facility] Medical 03/08/2020 12:00:00 AM EST NAVEEN ([facility]) Karina Conrad LCSW-R: [address] , [place] [address], Ph. Attender: Karina Conrad [facility] 03/02/2020 12:00:00 AM EST NAVEEN ([facility]) Karina Conrad, ASP NET PROGRAMMER-R: [address] [place] [address], Ph. Attender: Karina Conrad [facility] 03/02/2020 12:00:00 AM EST NAVEEN ([facility]) Karina Conrad, ASP NET PROGRAMMER-R: [address] [place] [address], Ph. Attender: Karina Monicalloydo [facility] Medical 03/02/2020 12:00:00 AM EST NAVEEN ([facility]) Karina Conrad, ASP NET PROGRAMMER-R: [address] [place] [address], Ph. Attender: Karina Granadoo [facility] Medical 03/02/2020 12:00:00 AM EST NAVEEN ([facility]) Karina Conrad, ASP NET PROGRAMMER-R: [address] [place] [address], Ph. Attender: Karina Monicalloydo [facility] Medical 03/02/2020 12:00:00 AM EST NAVEEN ([facility]) Karina Granadozeb, ASP NET PROGRAMMER-R: [address] [place] [address], Ph. Attender: Karina Monicalloydo [facility] Medical 03/02/2020 12:00:00 AM EST NAVEEN ([facility]) Karina Conrad, ASP NET PROGRAMMER-R: [address] [place] [address], Ph. Attender: Karina Monicalloydo [facility] Medical 03/02/2020 12:00:00 AM EST NAVEEN ([facility]) Karina Lathamcaridadlloydzeb, ASP NET PROGRAMMER-R: [address] , [place] [address], Ph. Attender: Karina Monicalloydzeb [facility] Medical 03/02/2020 12:00:00 AM EST NAVEEN ([facility]) Karina Monicalloydzeb, ASP NET PROGRAMMER-R: [address] [place] [address], Ph. Attender: Karina Houston [facility] Medical 03/02/2020 12:00:00 AM EST NAVEEN ([facility]) Karina Monicalloydzeb, ASP NET PROGRAMMER-R: [address] [place] [address], Ph. Attender: Karina Monicalloydzeb [facility] Medical 03/02/2020 12:00:00 AM EST NAVEEN ([facility]) Karina Monicalloydzeb, ASP NET PROGRAMMER-R: [address] [place] [address], Ph. Attender: Karina Conrad [facility] Medical 03/02/2020 12:00:00 AM EST NAVEEN ([facility]) Karina Monicalloydzeb, ASP NET PROGRAMMER-R: [address] [place] [address], Ph. Attender: Karina Conrad [facility] Medical 03/02/2020 12:00:00 AM EST NAVEEN ([facility]) Karina Houston, ASP NET PROGRAMMER-R: [address] [place] [address], Ph. Attender: Karina Conrad [facility] 03/02/2020 12:00:00 AM EST NAVEEN ([facility]) Karina Lathamcaridadlloydzeb, ASP NET PROGRAMMER-R: [address] , [place] [address], Ph. Attender: Karina Monicalloydzeb [facility] Medical 03/02/2020 12:00:00 AM EST NAVEEN ([facility]) Karina Lathamcaridadlloydzeb, ASP NET PROGRAMMER-R: [address] , [place] [address], Ph. Attender: Karina Houston [facility] Medical 03/02/2020 12:00:00 AM EST NAVEEN ([facility]) Karina Houston, ASP NET PROGRAMMER-R: [address] [place] [address], Ph. Attender: Karina Monicalloydzeb [facility] Medical 03/02/2020 12:00:00 AM EST NAVEEN ([facility]) Karina Monicalloydzeb, ASP NET PROGRAMMER-R: [address] [place] [address], Ph. Attender: Karina Houston [facility] Medical 03/02/2020 12:00:00 AM EST NAVEEN ([facility]) Karina Monicalloydzeb, ASP NET PROGRAMMER-R: [address] [place] [address], Ph. Attender: Karina Houston [facility] Medical 03/02/2020 12:00:00 AM EST NAVEEN ([facility]) Karina Houston, ASP NET PROGRAMMER-R: [address] [place] [address], Ph. Attender: Karina Lathamcaridadlloydzeb [facility] Medical 03/02/2020 12:00:00 AM EST NAVEEN ([facility]) Karina Lathamcaridadlloydzeb, ASP NET PROGRAMMER-R: [address] , [place] [address], Ph. Attender: Karina Monicalloydzeb [facility] Medical 03/02/2020 12:00:00 AM EST NAVEEN ([facility]) Karina Lathamcaridadlloydzeb, ASP NET PROGRAMMER-R: [address] , [place] [address], Ph. Attender: Karina Monicalloydzeb [facility] Medical 03/02/2020 12:00:00 AM EST NAVEEN ([facility]) Karina Monicalloydzeb, ASP NET PROGRAMMER-R: [address] [place] [address], Ph. Attender: Karina Monicalloydzeb [facility] Medical 03/02/2020 12:00:00 AM EST NAVEEN ([facility]) Karina Granadozeb, ASP NET PROGRAMMER-R: [address] [place] [address], Ph. Attender: Karina Houston [facility] 03/02/2020 12:00:00 AM EST NAVEEN ([facility]) Karina Monicalloydzeb, ASP NET PROGRAMMER-R: [address] [place] [address], Ph. Attender: Karina Houston [facility] 03/02/2020 12:00:00 AM EST NAVEEN ([facility]) Karina Houston, ASP NET PROGRAMMER-R: [address] , [place] [address], Ph. Attender: Karina Conrad [facility] 03/02/2020 12:00:00 AM EST NAVEEN ([facility]) Karina Conrad, ASP NET PROGRAMMER-R: [address] [place] [address], Ph. Attender: Karina Conrad [facility] 03/02/2020 12:00:00 AM EST NAVEEN ([facility]) Karina Conrad, ASP NET PROGRAMMER-R: [address] [place] [address], Ph. Attender: Karina Granadozeb [facility] Medical 03/02/2020 12:00:00 AM EST NAVEEN ([facility]) Karina Monicalloydzeb, ASP NET PROGRAMMER-R: [address] [place] [address], Ph. Attender: Karina Lathamcaridadlloydzeb [facility] Medical 03/02/2020 12:00:00 AM EST NAVEEN ([facility]) Karina Granadozeb, ASP NET PROGRAMMER-R: [address] [place] [address], Ph. Attender: Karina Yeisonalberzeb [facility] Medical 03/02/2020 12:00:00 AM EST NAVEEN ([facility]) Karina Monicalloydzeb, ASP NET PROGRAMMER-R: [address] [place] [address], Ph. Attender: Karina Monicalloydzeb [facility] Medical 02/23/2020 12:00:00 AM EST NAVEEN ([facility]) Karina Houston, ASP NET PROGRAMMER-R: [address] , [place] [address], Ph. Attender: Karina Lathamcaridadlloydzeb [facility] 02/23/2020 12:00:00 AM EST NAVEEN ([facility]) Karina Lathamcaridadlloydzeb, ASP NET PROGRAMMER-R: [address] [place] [address], Ph. Attender: Karina Monicalloydo [facility] 02/23/2020 12:00:00 AM EST NAVEEN ([facility]) Karina Monicalloydzeb, ASP NET PROGRAMMER-R: [address] [place] [address], Ph. Attender: Karina Houston [facility] 02/23/2020 12:00:00 AM EST NAVEEN ([facility]) Karina Monicalloydzeb, ASP NET PROGRAMMER-R: [address] [place] [address], Ph. Attender: Karina Vannesao [facility] 02/23/2020 12:00:00 AM EST NAVEEN ([facility]) Karina Houston, ASP NET PROGRAMMER-R: [address] [place] [address], Ph. Attender: Karina Vannesao [facility] 02/23/2020 12:00:00 AM EST NAVEEN ([facility]) Karina Houston, ASP NET PROGRAMMER-R: [address] [place] [address], Ph. Attender: Karina Houston [facility] 02/23/2020 12:00:00 AM EST NAVEEN ([facility]) Karinapineda Conrad, ASP NET PROGRAMMER-R: [address] [place] [address], Ph. Attender: Karina Lathamcaridadlloydzeb [facility] 02/23/2020 12:00:00 AM EST NAVEEN ([facility]) Karina Granadozeb, ASP NET PROGRAMMER-R: [address] [place] [address], Ph. Attender: Karina Monicalloydzeb [facility] 02/23/2020 12:00:00 AM EST NAVEEN ([facility]) Karina Monicalloydzeb, ASP NET PROGRAMMER-R: [address] [place] [address], Ph. Attender: Karina Houston [facility] 02/23/2020 12:00:00 AM EST NAVEEN ([facility]) Karina Lathamcaridadlloydzeb, ASP NET PROGRAMMER-R: [address] [place] [address], Ph. Attender: Karina Monicalloydzeb [facility] 02/23/2020 12:00:00 AM EST NAVEEN ([facility]) Karina Houston, ASP NET PROGRAMMER-R: [address] [place] [address], Ph. Attender: Karina Monicalloydzeb [facility] 02/23/2020 12:00:00 AM EST NAVEEN ([facility]) Karina Houston, ASP NET PROGRAMMER-R: [address] [place] [address], Ph. Attender: Karina Houston [facility] 02/23/2020 12:00:00 AM EST NAVEEN ([facility]) Karina Lathamcaridadlloydzeb, ASP NET PROGRAMMER-R: [address] [place] [address], Ph. Attender: Karina Granadozeb [facility] 02/23/2020 12:00:00 AM EST NAVEEN ([facility]) Karina Lathamcaridadlloydzeb, ASP NET PROGRAMMER-R: [address] [place] [address], Ph. Attender: Karina Monicalloydzeb [facility] 02/23/2020 12:00:00 AM EST NAVEEN ([facility]) Karina Monicalloydzeb, ASP NET PROGRAMMER-R: [address] [place] [address], Ph. Attender: Karina Houston [facility] 02/23/2020 12:00:00 AM EST NAVEEN ([facility]) Karina Lathamcaridadlloydzeb, ASP NET PROGRAMMER-R: [address] [place] [address], Ph. Attender: Karina Monicalloydzeb [facility] 02/23/2020 12:00:00 AM EST NAVEEN ([facility]) Karina Houston, ASP NET PROGRAMMER-R: [address] [place] [address], Ph. Attender: Karina Houston [facility] 02/23/2020 12:00:00 AM EST NAVEEN ([facility]) Karina Houston, ASP NET PROGRAMMER-R: [address] [place] [address], Ph. Attender: Karina Conrad [facility] 02/23/2020 12:00:00 AM EST NAVEEN ([facility]) Karina Conrad, ASP NET PROGRAMMER-R: [address] [place] [address], Ph. Attender: Karina Conrad [facility] 02/23/2020 12:00:00 AM EST NAVEEN ([facility]) Karina Conrad, ASP NET PROGRAMMER-R: [address] [place] [address], Ph. Attender: Karina Monicalloydzeb [facility] 02/23/2020 12:00:00 AM EST NAVEEN ([facility]) Karina Conrad, ASP NET PROGRAMMER-R: [address] [place] [address], Ph. Attender: Karina Monicalloydzeb [facility] 02/23/2020 12:00:00 AM EST NAVEEN ([facility]) Karina Conrad, ASP NET PROGRAMMER-R: [address] [place] [address], Ph. Attender: Karina Monicalloydzeb [facility] 02/23/2020 12:00:00 AM EST NAVEEN ([facility]) Karina Monicalloydzeb, ASP NET PROGRAMMER-R: [address] [place] [address], Ph. Attender: Karina Monicalloydzeb [facility] 02/23/2020 12:00:00 AM EST NAVEEN ([facility]) Karina Yeisonalberzeb, ASP NET PROGRAMMER-R: [address] [place] [address], Ph. Attender: Karina Houston [facility] 02/23/2020 12:00:00 AM EST NAVEEN ([facility]) Karina Conrad, ASP NET PROGRAMMER-R: [address] [place] [address], Ph. Attender: Karina Lathamcaridadlloydzeb [facility] 02/23/2020 12:00:00 AM EST NAVEEN ([facility]) Karina Conrad, ASP NET PROGRAMMER-R: [address] [place] [address], Ph. Attender: Karina Monicalloydzeb [facility] 02/23/2020 12:00:00 AM EST NAVEEN ([facility]) Karina Conrad, ASP NET PROGRAMMER-R: [address] [place] [address], Ph. Attender: Karina Monicalloydo [facility] 02/23/2020 12:00:00 AM EST NAVEEN ([facility]) Karina Lathamcaridadlloydzbe, ASP NET PROGRAMMER-R: [address] [place] [address], Ph. Attender: Karina Houston [facility] 02/23/2020 12:00:00 AM EST NAVEEN ([facility]) Karina Monicalloydzeb, ASP NET PROGRAMMER-R: [address] [place] [address], Ph. Attender: Karina Vannesao [facility] 02/23/2020 12:00:00 AM EST NAVEEN ([facility]) Karina Monicalloydzeb, ASP NET PROGRAMMER-R: [address] [place] [address], Ph. Attender: Karina Vannesao [place] [facility] 02/17/2020 12:00:00 AM EST NAVEEN ([facility]) Karina Lathamcaridadlloydzeb, ASP NET PROGRAMMER-R: [address] [place] [address], Ph. Attender: Karina Houston [facility] 02/17/2020 12:00:00 AM EST NAVEEN ([facility]) Karina Monicalloydzeb, ASP NET PROGRAMMER-R: [address] , [place] [address], Ph. Attender: Karina Houston [facility] 02/17/2020 12:00:00 AM EST [place] ([facility]) Karina Monicalloydzeb, [employer] PROGRAMMER-R: [address] [place] [address], Ph. Attender: Karina Houston [facility] 02/17/2020 12:00:00 AM EST [place] ([facility]) Karina Monicalloydzeb, [employer] NET PROGRAMMER-R: [address] [place] [address], Ph. Attender: Karina Conrad [facility] 02/17/2020 12:00:00 AM EST [place] ([facility]) Karina Houston, [employer] PROGRAMMER-R: [address] [place] [address], Ph. Attender: Karina Conrad [facility] 02/17/2020 12:00:00 AM EST [place] ([facility]) Karina Houston, [employer] PROGRAMMER-R: [address] , [place] [address], Ph. Attender: Karina Conrad [facility] 02/17/2020 12:00:00 AM EST [place] ([facility]) Karina Conrad, [employer] PROGRAMMER-R: [address] [place] [address], Ph. Attender: Karina Conrad [facility] 02/17/2020 12:00:00 AM EST [place] ([facility]) Karina Conrad, [employer] PROGRAMMER-R: [address] [place] [address], Ph. Attender: Karina Conrad [facility] 02/17/2020 12:00:00 AM EST [place] ([facility]) Karina Granadozeb, [employer] PROGRAMMER-R: [address] [place] [address], Ph. Attender: Karina Granadozeb [facility] 02/17/2020 12:00:00 AM EST [place] ([facility]) Karina Conrad, [employer] PROGRAMMER-R: [address] [place] [address], Ph. Attender: Karina Monicalloydzeb [facility] 02/17/2020 12:00:00 AM EST [place] ([facility]) Karina Granadozeb, [employer] PROGRAMMER-R: [address] [place] [address], Ph. Attender: Karina Yeisonalbero [facility] 02/17/2020 12:00:00 AM EST [place] ([facility]) Karina Houston, [employer] PROGRAMMER-R: [address] [place] [address], Ph. Attender: Karina Conrad [facility] 02/17/2020 12:00:00 AM EST [place] ([facility]) Karina Conrad, [employer] PROGRAMMER-R: [address] , [place] [address], Ph. Attender: Karina Conrad [facility] 02/17/2020 12:00:00 AM EST [place] ([facility]) Karina Conrad, [employer] PROGRAMMER-R: [address] , [place] [address], Ph. Attender: Karina Conrad [facility] 02/17/2020 12:00:00 AM EST [place] ([facility]) Karina Yeisonalberzeb, [employer] PROGRAMMER-R: [address] , [place] [address], Ph. Attender: Karina Lathamcaridadlloydzeb [facility] 02/17/2020 12:00:00 AM EST [place] ([facility]) Karina Conrad, [employer] PROGRAMMER-R: [address] [place] [address], Ph. Attender: Karina Monicalloydzeb [facility] 02/17/2020 12:00:00 AM EST [place] ([facility]) Karina Granadozeb, [employer] PROGRAMMER-R: [address] , [place] [address], Ph. Attender: Karina Yeisonalbero [facility] 02/17/2020 12:00:00 AM EST [place] ([facility]) Karina Houston, [employer] PROGRAMMER-R: [address] , [place] [address], Ph. Attender: Karina Conrad [facility] 02/17/2020 12:00:00 AM EST [place] ([facility]) Karina Conrad, [employer] PROGRAMMER-R: [address] [place] [address], Ph. Attender: Karina Granadoo [facility] 02/17/2020 12:00:00 AM EST [place] ([facility]) Karina Lathamcaridadlloydzeb, ASP [employer] PROGRAMMER-R: [address] [place] [address], Ph. Attender: Karina Granadozeb [facility] 02/17/2020 12:00:00 AM EST [place] ([facility]) Karina Granadozeb, ASP NET PROGRAMMER-R: [address] [place] [address], Ph. Attender: Karina Monicalloydo [facility] 02/17/2020 12:00:00 AM EST [place] ([facility]) Karina Granadozeb, ASP NET PROGRAMMER-R: [address] [place] [address], Ph. Attender: Karina Monicalloydo [facility] 02/17/2020 12:00:00 AM EST [place] ([facility]) Karina Monicalloydzeb, ASP NET PROGRAMMER-R: [address] [place] [address], Ph. Attender: Karina Monicalloydo [facility] 02/17/2020 12:00:00 AM EST [place] ([facility]) Karina Houston, [employer] PROGRAMMER-R: [address] , [place] [address], Ph. Attender: Karina Conrad [facility] 02/17/2020 12:00:00 AM EST [place] ([facility]) Karina Conrad, ASP [employer] PROGRAMMER-R: [address] [place] [address], Ph. Attender: Karina Conrad [facility] 02/17/2020 12:00:00 AM EST [place] ([facility]) Karina Conrad, [employer] PROGRAMMER-R: [address] [place] [address], Ph. Attender: Karina Granadozeb [facility] 02/17/2020 12:00:00 AM EST [place] ([facility]) Karina Conrad, ASP NET PROGRAMMER-R: [address] [place] [address], Ph. Attender: Karina Conrad [facility] 02/17/2020 12:00:00 AM EST [place] ([facility]) Karina Granadozeb, ASP NET PROGRAMMER-R: [address] [place] [address], Ph. Attender: Karina Conrad [facility] 02/17/2020 12:00:00 AM EST [place] ([facility]) Karina Conrad, ASP NET PROGRAMMER-R: [address] [place] [address], Ph. Attender: Karina Monicalloydzeb [facility] 02/17/2020 12:00:00 AM EST [place] ([facility]) Outpatient Attender: Deb TARANGO 02/10/2020 09:06:01 AM EDT [facility] Karina Conrad, ASP [employer] PROGRAMMER-R: [address] [place] [address], Ph. Attender: Karina Conrad [facility] 02/10/2020 12:00:00 AM EDT [facility]) Karina Lathamcaridadpiero, ASP [employer] PROGRAMMER-R: [address] [place] [address], Ph. Attender: Karina Monicalloydzeb [facility] 02/10/2020 12:00:00 AM EDT [place] ([facility]) Karina Monicalloydzeb, ASP NET PROGRAMMER-R: [address] [place] [address], Ph. Attender: Karina Monicalloydzeb [facility] 02/10/2020 12:00:00 AM EDT [place] ([facility]) Karina Monicalloydzeb, ASP NET PROGRAMMER-R: [address] [place] [address], Ph. Attender: Karina Monicalloydzeb [facility] 02/10/2020 12:00:00 AM EDT [place] ([facility]) Karina Monicalloydzeb, ASP NET PROGRAMMER-R: [address] [place] [address], Ph. Attender: Karina Monicalloydzeb [facility] 02/10/2020 12:00:00 AM EDT [place] ([facility]) Karina Houston, ASP NET PROGRAMMER-R: [address] [place] [address], Ph. Attender: Karina Conrad [facility] 02/10/2020 12:00:00 AM EDT [place] ([facility]) Karina Conrad, ASP NET PROGRAMMER-R: [address] , [place] [address], Ph. Attender: Karina Conrad [facility] 02/10/2020 12:00:00 AM EDT [place] ([facility]) Karina Lathamcaridadpiero, ASP NET PROGRAMMER-R: [address] , [place] [address], Ph. Attender: Karina Lathamcaridadpiero [facility] 02/10/2020 12:00:00 AM EDT [place] ([facility]) Karina Monicalloydzeb, ASP NET PROGRAMMER-R: [address] [place] [address], Ph. Attender: Karina Monicalloydzeb [facility] 02/10/2020 12:00:00 AM EDT [place] ([facility]) Karina Monicalloydzeb, ASP NET PROGRAMMER-R: [address] [place] [address], Ph. Attender: Karina Monicalloydzeb [facility] 02/10/2020 12:00:00 AM EDT [place] ([facility]) Karina Monicalloydzeb, ASP NET PROGRAMMER-R: [address] [place] [address], Ph. Attender: Karina Monicalloydzeb [facility] 02/10/2020 12:00:00 AM EDT [place] ([facility]) Karina Houston, ASP NET PROGRAMMER-R: [address] , [place] [address], Ph. Attender: Karina Conrad [facility] 02/10/2020 12:00:00 AM EDT [place] ([facility]) Karina Conrad, ASP NET PROGRAMMER-R: [address] [place] [address], Ph. Attender: Karina Conrad [facility] 02/10/2020 12:00:00 AM EDT [place] ([facility]) Karina Conrad, ASP NET PROGRAMMER-R: [address] [place] [address], Ph. Attender: Karina Conrad [facility] 02/10/2020 12:00:00 AM EDT [place] ([facility]) Karina Monicapiero, ASP NET PROGRAMMER-R: [address] [place] [address], Ph. Attender: Karina Lathamcaridadpiero [facility] 02/10/2020 12:00:00 AM EDT [place] ([facility]) Karina Conrad, ASP NET PROGRAMMER-R: [address] [place] [address], Ph. Attender: Karina Conrad [facility] 02/10/2020 12:00:00 AM EDT [place] ([facility]) Karina Monicalloydzeb, ASP NET PROGRAMMER-R: [address] [place] [address], Ph. Attender: Karina Conrad [facility] 02/10/2020 12:00:00 AM EDT [place] ([facility]) Karina Houston, ASP NET PROGRAMMER-R: [address] , [place] [address], Ph. Attender: Karina Lathamcaridadpiero [facility] 02/10/2020 12:00:00 AM EDT [place] ([facility]) Karina Lathamcaridadpiero, ASP NET PROGRAMMER-R: [address] [place] [address], Ph. Attender: Karina Lathamcaridadpiero [facility] 02/10/2020 12:00:00 AM EDT [place] ([facility]) Karina Monicalloydzeb, ASP NET PROGRAMMER-R: [address] [place] [address], Ph. Attender: Karina Monicalloydzeb [facility] 02/10/2020 12:00:00 AM EDT [place] ([facility]) Karina Monicalloydzeb, ASP NET PROGRAMMER-R: [address] [place] [address], Ph. Attender: Karina Monicalloydzeb [facility] 02/10/2020 12:00:00 AM EDT [place] ([facility]) Karina Houston, ASP NET PROGRAMMER-R: [address] [place] [address], Ph. Attender: Karina Monicapiero [facility] 02/10/2020 12:00:00 AM EDT [place] ([facility]) Karina Houston, ASP NET PROGRAMMER-R: [address] [place] [address], Ph. Attender: Karina Houston [facility] 02/10/2020 12:00:00 AM EDT [place] ([facility]) Karina Conrad, ASP NET PROGRAMMER-R: [address] [place] [address], Ph. Attender: Karina Conrad [facility] 02/10/2020 12:00:00 AM EDT [place] ([facility]) Karina Conrad, ASP NET PROGRAMMER-R: [address] [place] [address], Ph. Attender: Karina Conrad [facility] 02/10/2020 12:00:00 AM EDT [place] ([facility]) Karina Conrad, ASP NET PROGRAMMER-R: [address] [place] [address], Ph. Attender: Karina Conrad [facility] 02/10/2020 12:00:00 AM EDT [place] ([facility]) Karina Conrad, ASP NET PROGRAMMER-R: [address] [place] [address], Ph. Attender: Karina Conrad [facility] 02/10/2020 12:00:00 AM EDT [place] ([facility]) Karina Lathamcaridadlloydzeb, ASP NET PROGRAMMER-R: [address] [place] [address], Ph. Attender: Karina Conrad [facility] 02/10/2020 12:00:00 AM EDT [place] ([facility]) Karina Monicalloydzeb, ASP NET PROGRAMMER-R: [address] [place] [address], Ph. Attender: Karina Monicalloydzeb [facility] 02/10/2020 12:00:00 AM EDT [place] ([facility]) Karina Conrad, ASP NET PROGRAMMER-R: [address] [place] [address], Ph. Attender: Karina Yeisoncaridadlloydzeb [facility] 02/10/2020 12:00:00 AM EDT [place] ([facility]) Karina Conrad, ASP NET PROGRAMMER-R: [address] [place] [address], Ph. Attender: Karina Conrad [facility] 02/10/2020 12:00:00 AM EDT [place] ([facility]) Outpatient Attender: Deb RIOS 01/27/2020 08:01:01 PM EDT [facility] Outpatient Attender: Deb RIOS 01/27/2020 09:01:00 AM EDT [facility] Outpatient Attender: Deb RIOS FP 01/26/2020 12:24:01 PM EDT [facility] Outpatient Attender: Deb RIOS FP 01/26/2020 12:23:01 PM EDT [facility] Outpatient Attender: Deb RIOS FP 01/20/2020 08:01:02 PM EDT [facility] Outpatient Attender: Deb RIOS FP 01/20/2020 10:13:02 AM EDT [facility] Outpatient Attender: Deb RIOS FP 01/20/2020 08:56:01 AM EDT [facility] Outpatient Attender: Deb RIOS FP 01/12/2020 08:01:02 PM EDT [facility] Outpatient Attender: Deb RIOS FP 01/05/2020 08:01:04 PM EDT [facility] Outpatient Attender: Deb RIOS FP 01/05/2020 11:12:00 AM EDT [facility] Outpatient Attender: Deb RIOS FP 01/05/2020 10:03:01 AM EDT [facility] Outpatient Attender: Deblen TARANGO 12/29/2019 08:01:01 PM EDT [facility] Outpatient Attender: Deblen RIOS FP 12/29/2019 09:49:00 AM EDT [facility] Outpatient Attender: Deblen RIOS FP 12/27/2019 01:17:11 PM EDT [facility] Outpatient Attender: Deb TARANGO 12/22/2019 08:01:01 PM EDT [facility] Outpatient Attender: Deblen RIOS FP 12/22/2019 09:00:00 AM EDT [facility] Outpatient Attender: Deblen RIOS FP 12/15/2019 08:01:03 PM EDT [facility] Immunizations Vaccine Date Status Description Data Source(s) COVID-19 Vaccine [facility] ([facility]) 08/21/2020 12:00:00 AM EDT completed [facility] COVID-19 VACCINE [place] 08/21/2020 12:00:00 AM EDT completed [facility] Vaccine Series Complete: YESThis Data wa s Submitted to [facility] Via [employer]. Medications Medication Brand Name Start Date Product Form Dose Route Admi nistrative Instructions Pharmacy Instructions Status Indications Reaction Description Data Source(s) Copper (Paragard T 380a) 380 square mm intrauterine device 09/01/2020 01:21:17 PM EDT active [facility] Trazodone Hydrochloride 100 MG Oral Tablet Trazodone 07/31 08:13:50 AM EDT 100 MG [facility] Trazodone Hydrochloride 100 MG Oral Tablet Trazodone 07/31 08:13:50 AM EDT 100 MG active [facility] Cholecalciferol 5000 UNT Oral Capsule Cholecalciferol (Vitamin D3) Cholecalciferol (Vitamin D3) 07/31/2020 08:13:18 AM EDT 125 MCG active [facility] Cholecalciferol 5000 UNT Oral Capsule Cholecalciferol (Vitamin D3) Cholecalciferol (Vitamin D3) 07/31/2020 08:13:18 AM EDT 125 MCG [facility] quetiapine 100 MG Oral Tablet Quetiapine (Seroquel) 10 0 mg tablet Quetiapine (Seroquel) 100 mg tablet 07/31/2020 08:12:54 AM EDT 100 MG active [facility] quetiapine 100 MG Oral Tablet Quetiapine (Seroquel) 10 0 mg tablet Quetiapine (Seroquel) 100 mg tablet 07/31/2020 08:12:54 AM EDT 100 MG active [facility] Hydroxyzine Hydrochloride 25 MG Oral Tablet Hydroxyzine Hcl Hydroxyzine Hcl 07/31/2020 08:12:24 AM EDT 25 MG active [facility] Hydroxyzine Hydrochloride 25 MG Oral Tablet Hydroxyzine Hcl Hydroxyzine Hcl 07/31/2020 08:12:24 AM EDT 25 MG active [facility] gabapentin 600 MG Oral Tablet Gabapentin Gabapentin 08:12:05 AM EDT 600 MG active [facility] gabapentin 600 MG Oral Tablet Gabapentin Gabapentin 08:12:05 AM EDT 600 MG active [facility] Sertraline 100 MG Oral Tablet Sertraline 07/31/2020 08:11:39 AM EDT 150 MG active [facility] Sertraline 100 MG Oral Tablet Sertraline 07/31/2020 08:11:39 AM EDT 150 MG active [facility] Purified Protein Derivative of Tuberculi n 50 UNT/ML Injectable Solution tuberculin PPD tuberculin PPD 07/31/2020 07:56:25 AM EDT 0.1 ML completed [facility] Purified Protein Derivative of Tuberculi n 50 UNT/ML Injectable Solution tuberculin PPD tuberculin PPD 07/31/2020 07:56:25 AM EDT 0.1 ML completed [facility] medroxyprogesterone acetate 150 MG/ML Injectable Suspe nsion [Depo-Provera] Depo-Provera 06/07/2020 12:00:00 AM EST active [facility] ([employer]) Trazodone Hydrochloride 150 MG Oral Tabl et trazodone 150 mg tablet Take 1 tablet every day by oral route at dinner for 30 days. trazodone 150 mg tablet Take 1 tablet every day by oral route at dinner for 30 days. 05/15/2020 12:00:00 AM EST 1 completed trazodone hydr ochloride 150 MG Oral Tablet [place] ([facility]) Trazodone Hydrochloride 150 MG Oral Tabl et trazodone 150 mg tablet Take 1 tablet every day by oral route at dinner for 30 days. trazodone 150 mg tablet Take 1 tablet every day by oral route at dinner for 30 days. 05/15/2020 12:00:00 AM EST 1 completed trazodone hydr ochloride 150 MG Oral Tablet [place] ([facility]) Trazodone Hydrochloride 150 MG Oral Tabl et trazodone 150 mg tablet Take 1 tablet every day by oral route at dinner for 30 days. trazodone 150 mg tablet Take 1 tablet every day by oral route at dinner for 30 days. 05/15/2020 12:00:00 AM EST 1 completed trazodone hydr ochloride 150 MG Oral Tablet [place] ([facility]) quetiapine 300 MG Oral Tablet QUETIAPINE FUMARATE [...] MOUTH EVERY DAY SOLD: 12/14/2019 [facility] Sertraline 50 MG Oral Tablet sertraline 50 mg tablet sertraline 50 mg tablet completed sertraline 50 MG Oral Tablet [facility]) aripiprazole 10 MG Oral Tablet aripiprazole 10 mg tabl et aripiprazole 10 mg tablet completed aripiprazole 10 MG Oral Tablet [facility]) Trazodone Hydrochloride 50 MG Oral Tablet trazodone 50 mg tablet trazodone 50 mg tablet completed trazodone hydr ochloride 50 MG Oral Tablet [facility]) aripiprazole 15 MG Oral Tablet aripiprazole 15 mg tabl et aripiprazole 15 mg tablet completed aripiprazole 15 MG Oral Tablet [place] ([facility]) aripiprazole 15 MG Oral Tablet aripiprazole 15 mg tabl et aripiprazole 15 mg tablet completed aripiprazole 15 MG Oral Tablet [place] ([facility]) Trazodone Hydrochloride 50 MG Oral Tablet trazodone 50 mg tablet trazodone 50 mg tablet completed trazodone hydr ochloride 50 MG Oral Tablet [place] ([facility]) Trazodone Hydrochloride 50 MG Oral Tablet trazodone 50 mg tablet trazodone 50 mg tablet completed trazodone hydr ochloride 50 MG Oral Tablet [place] ([facility]) Trazodone Hydrochloride 50 MG Oral Tablet trazodone 50 mg tablet trazodone 50 mg tablet completed trazodone hydr ochloride 50 MG Oral Tablet [place] ([facility]) Trazodone Hydrochloride 50 MG Oral Tablet trazodone 50 mg tablet trazodone 50 mg tablet completed trazodone hydr ochloride 50 MG Oral Tablet [place] ([facility]) aripiprazole 5 MG Oral Tablet aripiprazole 5 mg tablet aripi prazole 5 mg tablet completed aripiprazole 5 MG Oral Tablet [place] ([facility]) aripiprazole 15 MG Oral Tablet aripiprazole 15 mg tabl et aripiprazole 15 mg tablet completed aripiprazole 15 MG Oral Tablet [place] ([facility]) aripiprazole 5 MG Oral Tablet aripiprazole 5 mg tablet aripi prazole 5 mg tablet completed aripiprazole 5 MG Oral Tablet [place] ([facility]) aripiprazole 15 MG Oral Tablet aripiprazole 15 mg tabl et aripiprazole 15 mg tablet completed aripiprazole 15 MG Oral Tablet [place] ([facility]) Sertraline 50 MG Oral Tablet sertraline 50 mg tablet sertraline 50 mg tablet completed sertraline 50 MG Oral Tablet [place] ([facility]) Sertraline 50 MG Oral Tablet sertraline 50 mg tablet sertraline 50 mg tablet completed sertraline 50 MG Oral Tablet [place] ([facility]) aripiprazole 10 MG Oral Tablet aripiprazole 10 mg tabl et aripiprazole 10 mg tablet completed aripiprazole 10 MG Oral Tablet [place] ([facility]) Trazodone Hydrochloride 150 MG Oral Tablet trazodone 1 50 mg tablet trazodone 150 mg tablet completed trazodone h ydrochloride 150 MG Oral Tablet [place] ([facility]) Sertraline 50 MG Oral Tablet sertraline 50 mg tablet sertraline 50 mg tablet completed sertraline 50 MG Oral Tablet [place] ([facility]) aripiprazole 10 MG Oral Tablet aripiprazole 10 mg tabl et aripiprazole 10 mg tablet completed aripiprazole 10 MG Oral Tablet [place] ([facility]) Sertraline 50 MG Oral Tablet sertraline 50 mg tablet sertraline 50 mg tablet completed sertraline 50 MG Oral Tablet [place] ([facility]) aripiprazole 5 MG Oral Tablet aripiprazole 5 mg tablet aripi prazole 5 mg tablet completed aripiprazole 5 MG Oral Tablet [place] ([facility]) Sertraline 50 MG Oral Tablet sertraline 50 mg tablet sertraline 50 mg tablet completed sertraline 50 MG Oral Tablet [place] [facility]) Sertraline 50 MG Oral Tablet sertraline 50 mg tablet sertraline 50 mg tablet completed sertraline 50 MG Oral Tablet [place] ([facility]) Sertraline 50 MG Oral Tablet sertraline 50 mg tablet sertraline 50 mg tablet completed sertraline 50 MG Oral Tablet [facility]) aripiprazole 10 MG Oral Tablet aripiprazole 10 mg tabl et aripiprazole 10 mg tablet completed aripiprazole 10 MG Oral Tablet [place] ([facility]) Sertraline 50 MG Oral Tablet sertraline 50 mg tablet sertraline 50 mg tablet completed sertraline 50 MG Oral Tablet [place] ([facility]) Trazodone Hydrochloride 150 MG Oral Tablet trazodone 1 50 mg tablet trazodone 150 mg tablet completed trazodone h ydrochloride 150 MG Oral Tablet [facility]) aripiprazole 10 MG Oral Tablet aripiprazole 10 mg tabl et aripiprazole 10 mg tablet completed aripiprazole 10 MG Oral Tablet [facility]) aripiprazole 5 MG Oral Tablet aripiprazole 5 mg tablet aripi prazole 5 mg tablet completed aripiprazole 5 MG Oral Tablet [place] ([facility]) aripiprazole 10 MG Oral Tablet aripiprazole 10 mg tabl et aripiprazole 10 mg tablet completed aripiprazole 10 MG Oral Tablet [place] [facility]) Trazodone Hydrochloride 50 MG Oral Tablet trazodone 50 mg tablet trazodone 50 mg tablet completed trazodone hydr ochloride 50 MG Oral Tablet [place] ([facility]) aripiprazole 10 MG Oral Tablet aripiprazole 10 mg tabl et aripiprazole 10 mg tablet completed aripiprazole 10 MG Oral Tablet [facility]) aripiprazole 10 MG Oral Tablet aripiprazole 10 mg tabl et aripiprazole 10 mg tablet completed aripiprazole 10 MG Oral Tablet [place] ([facility]) Sertraline 50 MG Oral Tablet sertraline 50 mg tablet sertraline 50 mg tablet completed sertraline 50 MG Oral Tablet [place] ([facility]) aripiprazole 15 MG Oral Tablet aripiprazole 15 mg tabl et aripiprazole 15 mg tablet completed aripiprazole 15 MG Oral Tablet [place] ([facility]) Trazodone Hydrochloride 50 MG Oral Tablet trazodone 50 mg tablet trazodone 50 mg tablet completed trazodone hydr ochloride 50 MG Oral Tablet [place] ([facility]) Sertraline 50 MG Oral Tablet sertraline 50 mg tablet sertraline 50 mg tablet completed sertraline 50 MG Oral Tablet [place] ([facility]) Trazodone Hydrochloride 50 MG Oral Tablet trazodone 50 mg tablet trazodone 50 mg tablet completed trazodone hydr ochloride 50 MG Oral Tablet [facility]) aripiprazole 10 MG Oral Tablet aripiprazole 10 mg tabl et aripiprazole 10 mg tablet completed aripiprazole 10 MG Oral Tablet [place] ([facility]) aripiprazole 10 MG Oral Tablet aripiprazole 10 mg tabl et aripiprazole 10 mg tablet completed aripiprazole 10 MG Oral Tablet [place] ([facility]) aripiprazole 15 MG Oral Tablet aripiprazole 15 mg tabl et aripiprazole 15 mg tablet completed aripiprazole 15 MG Oral Tablet [place] ([facility]) Trazodone Hydrochloride 50 MG Oral Tablet trazodone 50 mg tablet trazodone 50 mg tablet completed trazodone hydr ochloride 50 MG Oral Tablet [place] ([facility]) aripiprazole 10 MG Oral Tablet aripiprazole 10 mg tabl et aripiprazole 10 mg tablet completed aripiprazole 10 MG Oral Tablet [place] ([facility]) aripiprazole 15 MG Oral Tablet aripiprazole 15 mg tabl et aripiprazole 15 mg tablet completed aripiprazole 15 MG Oral Tablet [place] ([facility]) aripiprazole 10 MG Oral Tablet aripiprazole 10 mg tabl et aripiprazole 10 mg tablet completed aripiprazole 10 MG Oral Tablet [place] ([facility]) Trazodone Hydrochloride 50 MG Oral Tablet trazodone 50 mg tablet trazodone 50 mg tablet completed trazodone hydr ochloride 50 MG Oral Tablet [place] ([facility]) aripiprazole 5 MG Oral Tablet aripiprazole 5 mg tablet aripi prazole 5 mg tablet completed aripiprazole 5 MG Oral Tablet [place] ([facility]) aripiprazole 10 MG Oral Tablet aripiprazole 10 mg tabl et aripiprazole 10 mg tablet completed aripiprazole 10 MG Oral Tablet [place] ([facility]) Sertraline 50 MG Oral Tablet sertraline 50 mg tablet sertraline 50 mg tablet completed sertraline 50 MG Oral Tablet [place] ([facility]) Sertraline 50 MG Oral Tablet sertraline 50 mg tablet sertraline 50 mg tablet completed sertraline 50 MG Oral Tablet [place] ([facility]) aripiprazole 15 MG Oral Tablet aripiprazole 15 mg tabl et aripiprazole 15 mg tablet completed aripiprazole 15 MG Oral Tablet [place] ([facility]) aripiprazole 10 MG Oral Tablet aripiprazole 10 mg tabl et aripiprazole 10 mg tablet completed aripiprazole 10 MG Oral Tablet [place] ([facility]) Trazodone Hydrochloride 50 MG Oral Tablet trazodone 50 mg tablet trazodone 50 mg tablet completed trazodone hydr ochloride 50 MG Oral Tablet [place] ([facility]) Trazodone Hydrochloride 50 MG Oral Tablet trazodone 50 mg tablet trazodone 50 mg tablet completed trazodone hydr ochloride 50 MG Oral Tablet [place] ([facility]) aripiprazole 10 MG Oral Tablet aripiprazole 10 mg tabl et aripiprazole 10 mg tablet completed aripiprazole 10 MG Oral Tablet [place] ([facility]) Sertraline 50 MG Oral Tablet sertraline 50 mg tablet sertraline 50 mg tablet completed sertraline 50 MG Oral Tablet [place] ([facility]) Sertraline 50 MG Oral Tablet sertraline 50 mg tablet sertraline 50 mg tablet completed sertraline 50 MG Oral Tablet [place] ([facility]) aripiprazole 15 MG Oral Tablet aripiprazole 15 mg tabl et aripiprazole 15 mg tablet completed aripiprazole 15 MG Oral Tablet [place] ([facility]) aripiprazole 5 MG Oral Tablet aripiprazole 5 mg tablet aripi prazole 5 mg tablet completed aripiprazole 5 MG Oral Tablet [place] ([facility]) aripiprazole 10 MG Oral Tablet aripiprazole 10 mg tabl et aripiprazole 10 mg tablet completed aripiprazole 10 MG Oral Tablet [place] ([facility]) aripiprazole 10 MG Oral Tablet aripiprazole 10 mg tabl et aripiprazole 10 mg tablet completed aripiprazole 10 MG Oral Tablet [place] ([facility]) aripiprazole 10 MG Oral Tablet aripiprazole 10 mg tabl et aripiprazole 10 mg tablet completed aripiprazole 10 MG Oral Tablet [place] ([facility]) aripiprazole 15 MG Oral Tablet aripiprazole 15 mg tabl et aripiprazole 15 mg tablet completed aripiprazole 15 MG Oral Tablet [place] ([facility]) Trazodone Hydrochloride 50 MG Oral Tablet trazodone 50 mg tablet trazodone 50 mg tablet completed trazodone hydr ochloride 50 MG Oral Tablet [place] ([facility]) Trazodone Hydrochloride 150 MG Oral Tablet trazodone 1 50 mg tablet trazodone 150 mg tablet completed trazodone h ydrochloride 150 MG Oral Tablet [place] ([facility]) Trazodone Hydrochloride 50 MG Oral Tablet trazodone 50 mg tablet trazodone 50 mg tablet completed trazodone hydr ochloride 50 MG Oral Tablet [place] ([facility]) Sertraline 50 MG Oral Tablet sertraline 50 mg tablet sertraline 50 mg tablet completed sertraline 50 MG Oral Tablet [place] ([facility]) Sertraline 50 MG Oral Tablet sertraline 50 mg tablet sertraline 50 mg tablet completed sertraline 50 MG Oral Tablet [place] ([facility]) Sertraline 50 MG Oral Tablet sertraline 50 mg tablet sertraline 50 mg tablet completed sertraline 50 MG Oral Tablet [place] ([facility]) aripiprazole 15 MG Oral Tablet aripiprazole 15 mg tabl et aripiprazole 15 mg tablet completed aripiprazole 15 MG Oral Tablet [place] ([facility]) aripiprazole 5 MG Oral Tablet aripiprazole 5 mg tablet aripi prazole 5 mg tablet completed aripiprazole 5 MG Oral Tablet [place] ([facility]) aripiprazole 5 MG Oral Tablet aripiprazole 5 mg tablet aripi prazole 5 mg tablet completed aripiprazole 5 MG Oral Tablet [place] ([facility]) aripiprazole 10 MG Oral Tablet aripiprazole 10 mg tabl et aripiprazole 10 mg tablet completed aripiprazole 10 MG Oral Tablet [place] ([facility]) Trazodone Hydrochloride 50 MG Oral Tablet trazodone 50 mg tablet trazodone 50 mg tablet completed trazodone hydr ochloride 50 MG Oral Tablet [place] ([facility]) aripiprazole 10 MG Oral Tablet aripiprazole 10 mg tabl et aripiprazole 10 mg tablet completed aripiprazole 10 MG Oral Tablet [place] ([facility]) aripiprazole 15 MG Oral Tablet aripiprazole 15 mg tabl et aripiprazole 15 mg tablet completed aripiprazole 15 MG Oral Tablet [place] ([facility]) aripiprazole 10 MG Oral Tablet aripiprazole 10 mg tabl et aripiprazole 10 mg tablet completed aripiprazole 10 MG Oral Tablet [place] ([facility]) Trazodone Hydrochloride 50 MG Oral Tablet trazodone 50 mg tablet trazodone 50 mg tablet completed trazodone hydr ochloride 50 MG Oral Tablet [place] ([facility]) aripiprazole 5 MG Oral Tablet aripiprazole 5 mg tablet aripi prazole 5 mg tablet completed aripiprazole 5 MG Oral Tablet [place] ([facility]) Sertraline 50 MG Oral Tablet sertraline 50 mg tablet sertraline 50 mg tablet completed sertraline 50 MG Oral Tablet [place] ([facility]) aripiprazole 5 MG Oral Tablet aripiprazole 5 mg tablet aripi prazole 5 mg tablet completed aripiprazole 5 MG Oral Tablet [place] ([facility]) aripiprazole 5 MG Oral Tablet aripiprazole 5 mg tablet aripi prazole 5 mg tablet completed aripiprazole 5 MG Oral Tablet [place] ([facility]) Sertraline 100 MG Oral Tablet sertraline 100 mg tablet sertr jorge 100 mg tablet completed sertraline 100 MG Oral Tablet [place] ([facility]) aripiprazole 10 MG Oral Tablet aripiprazole 10 mg tabl et aripiprazole 10 mg tablet completed aripiprazole 10 MG Oral Tablet [place] ([facility]) aripiprazole 5 MG Oral Tablet aripiprazole 5 mg tablet aripi prazole 5 mg tablet completed aripiprazole 5 MG Oral Tablet [place] ([facility]) Trazodone Hydrochloride 50 MG Oral Tablet trazodone 50 mg tablet trazodone 50 mg tablet completed trazodone hydr ochloride 50 MG Oral Tablet [place] ([facility]) aripiprazole 5 MG Oral Tablet aripiprazole 5 mg tablet aripi prazole 5 mg tablet completed aripiprazole 5 MG Oral Tablet [place] ([facility]) aripiprazole 15 MG Oral Tablet aripiprazole 15 mg tabl et aripiprazole 15 mg tablet completed aripiprazole 15 MG Oral Tablet [place] ([facility]) aripiprazole 10 MG Oral Tablet aripiprazole 10 mg tabl et aripiprazole 10 mg tablet completed aripiprazole 10 MG Oral Tablet [place] ([facility]) aripiprazole 15 MG Oral Tablet aripiprazole 15 mg tabl et aripiprazole 15 mg tablet completed aripiprazole 15 MG Oral Tablet [place] ([facility]) aripiprazole 5 MG Oral Tablet aripiprazole 5 mg tablet aripi prazole 5 mg tablet completed aripiprazole 5 MG Oral Tablet [place] ([facility]) gabapentin 600 MG Oral Tablet gabapentin 600 mg tablet gabap entin 600 mg tablet completed gabapentin 600 MG Oral Tablet [place] ([facility]) aripiprazole 5 MG Oral Tablet aripiprazole 5 mg tablet aripi prazole 5 mg tablet completed aripiprazole 5 MG Oral Tablet [place] ([facility]) aripiprazole 5 MG Oral Tablet aripiprazole 5 mg tablet aripi prazole 5 mg tablet completed aripiprazole 5 MG Oral Tablet [place] ([facility]) aripiprazole 5 MG Oral Tablet aripiprazole 5 mg tablet aripi prazole 5 mg tablet completed aripiprazole 5 MG Oral Tablet [place] ([facility]) aripiprazole 10 MG Oral Tablet aripiprazole 10 mg tabl et aripiprazole 10 mg tablet completed aripiprazole 10 MG Oral Tablet [place] ([facility]) aripiprazole 5 MG Oral Tablet aripiprazole 5 mg tablet aripi prazole 5 mg tablet completed aripiprazole 5 MG Oral Tablet [place] ([facility]) aripiprazole 5 MG Oral Tablet aripiprazole 5 mg tablet aripi prazole 5 mg tablet completed aripiprazole 5 MG Oral Tablet [place] ([facility]) Trazodone Hydrochloride 50 MG Oral Tablet trazodone 50 mg tablet trazodone 50 mg tablet completed trazodone hydr ochloride 50 MG Oral Tablet [place] ([facility]) aripiprazole 5 MG Oral Tablet aripiprazole 5 mg tablet aripi prazole 5 mg tablet completed aripiprazole 5 MG Oral Tablet [place] ([facility]) aripiprazole 5 MG Oral Tablet aripiprazole 5 mg tablet aripi prazole 5 mg tablet completed aripiprazole 5 MG Oral Tablet [place] ([facility]) aripiprazole 5 MG Oral Tablet aripiprazole 5 mg tablet aripi prazole 5 mg tablet completed aripiprazole 5 MG Oral Tablet [place] ([facility]) aripiprazole 15 MG Oral Tablet aripiprazole 15 mg tabl et aripiprazole 15 mg tablet completed aripiprazole 15 MG Oral Tablet [place] ([facility]) aripiprazole 10 MG Oral Tablet aripiprazole 10 mg tabl et aripiprazole 10 mg tablet completed aripiprazole 10 MG Oral Tablet [place] ([facility]) aripiprazole 10 MG Oral Tablet aripiprazole 10 mg tabl et aripiprazole 10 mg tablet completed aripiprazole 10 MG Oral Tablet [place] ([facility]) aripiprazole 15 MG Oral Tablet aripiprazole 15 mg tabl et aripiprazole 15 mg tablet completed aripiprazole 15 MG Oral Tablet [place] ([facility]) Sertraline 50 MG Oral Tablet sertraline 50 mg tablet sertraline 50 mg tablet completed sertraline 50 MG Oral Tablet [place] ([facility]) aripiprazole 5 MG Oral Tablet aripiprazole 5 mg tablet aripi prazole 5 mg tablet completed aripiprazole 5 MG Oral Tablet [place] ([facility]) Sertraline 50 MG Oral Tablet sertraline 50 mg tablet sertraline 50 mg tablet completed sertraline 50 MG Oral Tablet [place] ([facility]) aripiprazole 5 MG Oral Tablet aripiprazole 5 mg tablet aripi prazole 5 mg tablet completed aripiprazole 5 MG Oral Tablet [place] ([facility]) aripiprazole 10 MG Oral Tablet aripiprazole 10 mg tabl et aripiprazole 10 mg tablet completed aripiprazole 10 MG Oral Tablet [place] ([facility]) aripiprazole 15 MG Oral Tablet aripiprazole 15 mg tabl et aripiprazole 15 mg tablet completed aripiprazole 15 MG Oral Tablet [place] ([facility]) aripiprazole 5 MG Oral Tablet aripiprazole 5 mg tablet aripi prazole 5 mg tablet completed aripiprazole 5 MG Oral Tablet [place] ([facility]) aripiprazole 5 MG Oral Tablet aripiprazole 5 mg tablet aripi prazole 5 mg tablet completed aripiprazole 5 MG Oral Tablet [place] ([facility]) aripiprazole 5 MG Oral Tablet aripiprazole 5 mg tablet aripi prazole 5 mg tablet completed aripiprazole 5 MG Oral Tablet [place] ([facility]) aripiprazole 10 MG Oral Tablet aripiprazole 10 mg tabl et aripiprazole 10 mg tablet completed aripiprazole 10 MG Oral Tablet [place] ([facility]) aripiprazole 15 MG Oral Tablet aripiprazole 15 mg tabl et aripiprazole 15 mg tablet completed aripiprazole 15 MG Oral Tablet [place] ([facility]) Trazodone Hydrochloride 150 MG Oral Tablet trazodone 1 50 mg tablet trazodone 150 mg tablet completed trazodone h ydrochloride 150 MG Oral Tablet [place] ([facility]) Trazodone Hydrochloride 50 MG Oral Tablet trazodone 50 mg tablet trazodone 50 mg tablet completed trazodone hydr ochloride 50 MG Oral Tablet [place] ([facility]) aripiprazole 5 MG Oral Tablet aripiprazole 5 mg tablet aripi prazole 5 mg tablet completed aripiprazole 5 MG Oral Tablet [place] ([facility]) Insurance Providers Payer name Policy type / Coverage type Policy ID Covered republican ID Covered republican's relationship to sahni Policy [place] Plan Information [place] 140/640 [id number] [id number] MEDICAID [id number] SP [id number] Medicaid P [id number] S [id number] Medicaid S [id number] Managed Care - Community Plan [facility] P [id number] S [id number] Managed Care - Community Plan [facility] P [id number] S [id number] Managed Care - Community Plan [facility] P [id number] S [id number] Managed Care - Community Plan [facility] P [id number] S [id number] Medicaid S [id number] S [id number] Managed Care - [facility] Community Plan P [id number] S [id number] Managed Care - Community Plan [facility] P [id number] S [id number] Wellcare P [id number] S [id number] Medicare P [id number] S [id number] Medicaid S [id number] S [id number] Medicaid S [id number] S [id number] Medicaid S [id number] S [id number] Medicaid S [id number] [facility] [id number] Self [id number] [facility] Health Maintenance Organization (HMO) [id number] Self [id number] [facility] [id number] SP [id number] SELF PAY ONLY [id number] SP [id number] [facility] MEDICAID [id number] SP [id number] A [facility] [id number] SP [id number] Managed Care - Community Plan [facility] P [id number] S [id number] [facility] [id number] SP [id number] [facility] COMMUNITY PLAN [facility] [id number] SP [id number] [employer] B [id number] C [id number] [place] OF [place] 306/806 [id number] SP [id number] [facility] [id number] SP [id number] [facility](MCAID) O [id number] S [id number] [facility] O UNAVAILABLE [id number] S UNAVAILABLE SELF PAY UNAVAILABLE SP UNAVAILA BLE [facility] [id number] SP [id number] MEDICARE [id number] SP [id number] EM[facility]NY [id number] SP [id number] SP [id number] [facility] COMMUNITY PLAN [facility] [id number] SP [id number] MEDICAID [id number] SP [id number] MEDICARE C [id number] S [id number] MEDICAID [id number] S [id number] [facility] O [id number] S [id number] [facility] O [id number] S [id number] [facility] Health Maintenance Organization (O) [id number] Self [id number] [facility] Maintenance Organization (O) [id number] Self [id number] [facility] Maintenance Organization (O) [id number] Self [id number] [facility] Maintenance Organization ([facility] [id number] Self [id number] [facility] [id number] SP [id number] [facility] [id number] SP [id number] [facility] [id number] Self [id number] Problems, Conditions, and Diagnoses Code Display Name Description Problem Type Effective Dates Data Source(s) 42954483 Anxiety (finding) Anxiety (finding) Condition 08/09 12:00:00 AM EDT [facility] [id number] Unspecified anxiety disorder Unspecified anxiety disor mary Condition 08/09/2020 12:00:00 AM EDT [facility] [id number] Tobacco use Tobacco use Condition 08/09/2020 12:00:00 AM EDT [facility] [id number] Unspecified anxiety disorder Unspecified anxiety disor mary Condition 08/09/2020 12:00:00 AM EDT [facility] [id number] Tobacco use Tobacco use Condition 08/09/2020 12:00:00 AM EDT [facility] ([facility]) [id number] Anxiety (finding) Anxiety (finding) Condition 08/09 12:00:00 AM EDT [facility] ([facility]) [id number] Unspecified anxiety disorder Unspecified anxiety disor mary Condition 08/09/2020 12:00:00 AM EDT [facility] ([facility]) [id number] Anxiety (finding) Anxiety (finding) Condition 08/09 12:00:00 AM EDT [facility] ([facility]) [id number] Tobacco use Tobacco use Condition 08/09/2020 12:00:00 AM EDT [facility] ([facility]) [id number] Tobacco use Tobacco use Condition 08/09/2020 12:00:00 AM EDT [facility] ([facility]) [id number] Unspecified anxiety disorder Unspecified anxiety disor mary Condition 08/09/2020 12:00:00 AM EDT [facility] ([facility]) [id number] Anxiety (finding) Anxiety (finding) Condition 08/09 12:00:00 AM EDT [facility] ([facility]) [id number] Tobacco use Tobacco use Condition 08/09/2020 12:00:00 AM EDT [facility] ([facility]) [id number] Anxiety (finding) Anxiety (finding) Condition 08/09 12:00:00 AM EDT [facility] ([facility]) [id number] Unspecified anxiety disorder Unspecified anxiety disor mary Condition 08/09/2020 12:00:00 AM EDT [facility] ([facility]) [id number] Anxiety (finding) Anxiety (finding) Condition 08/09 12:00:00 AM EDT [facility] ([facility]) [id number] Tobacco use Tobacco use Condition 08/09/2020 12:00:00 AM EDT [facility] ([facility]) [id number] Unspecified anxiety disorder Unspecified anxiety disor mary Condition 08/09/2020 12:00:00 AM EDT [facility] ([facility]) [id number] Tobacco use Tobacco use Condition 08/09/2020 12:00:00 AM EDT [facility] ([facility]) [id number] Anxiety (finding) Anxiety (finding) Condition 08/09 12:00:00 AM EDT [facility] ([facility]) [id number] Unspecified anxiety disorder Unspecified anxiety disor mary Condition 08/09/2020 12:00:00 AM EDT [facility] ([facility]) [id number] Tobacco use Tobacco use Condition 08/09/2020 12:00:00 AM EDT [facility] ([facility]) [id number] Anxiety (finding) Anxiety (finding) Condition 08/09 12:00:00 AM [facility] [id number] Unspecified anxiety disorder Unspecified anxiety disor mary Condition 08/09/2020 12:00:00 AM EDT [facility] ([facility]) [id number] Unspecified anxiety disorder Unspecified anxiety disor mary Condition 08/09/2020 12:00:00 AM EDT [facility] [id number] Tobacco use Tobacco use Condition 08/09/2020 12:00:00 AM EDT [facility]) [id number] Anxiety (finding) Anxiety (finding) Condition 08/09 12:00:00 AM EDT [facility] [id number] Tobacco use Tobacco use Condition 08/09/2020 12:00:00 AM EDT [facility] ([facility]) [id number] Unspecified anxiety disorder Unspecified anxiety disor mary Condition 08/09/2020 12:00:00 AM EDT [facility] ([facility]) [id number] Anxiety (finding) Anxiety (finding) Condition 08/09 12:00:00 AM EDT [facility] ([facility]) [id number] Tobacco use Tobacco use Condition 08/09/2020 12:00:00 AM EDT [facility] ([facility]) [id number] Anxiety (finding) Anxiety (finding) Condition 08/09 12:00:00 AM EDT [place] ([facility]) [id number] Unspecified anxiety disorder Unspecified anxiety disor mary Condition 08/09/2020 12:00:00 AM [facility]T [facility]) N64.59 Other signs and symptoms in breast Sore nipple 01/26/2020 12:22:03 PM EDT [facility] N64.52 Nipple discharge Discharge from right nipple 01/26/2020 12:22:03 PM EDT [facility] [id number] Breast finding Breast Finding Problem 01/26/2020 12:00: 00 AM EDT [place] ([facility]) [id number] Discharge from nipple Discharge from Nipple Problem 01/26/2020 12:00:00 AM EDT [place] ([facility]) [id number] Breast finding Breast Finding Problem 01/26/2020 12:00: 00 AM EDT [place] ([facility]) [id number] Discharge from nipple Discharge from Nipple Problem 01/26/2020 12:00:00 AM EDT [place] ([facility]) [id number] Breast finding Breast Finding Problem 01/26/2020 12:00: 00 AM EDT [place] ([facility]) [id number] Discharge from nipple Discharge from Nipple Problem 01/26/2020 12:00:00 AM EDT [place] ([facility]) [id number] Breast finding Breast Finding Problem 01/26/2020 12:00: 00 AM EDT [place] ([facility]) [id number] Discharge from nipple Discharge from Nipple Problem 01/26/2020 12:00:00 AM EDT [place] ([facility]) [id number] Breast finding Breast Finding Problem 01/26/2020 12:00: 00 AM EDT [place] ([facility]) [id number] Discharge from nipple Discharge from Nipple Problem 01/26/2020 12:00:00 AM EDT [place] ([facility]) [id number] Breast finding Breast Finding Problem 01/26/2020 12:00: 00 AM EDT [place] ([facility]) [id number] Discharge from nipple Discharge from Nipple Problem 01/26/2020 12:00:00 AM EDT [place] ([facility]) [id number] Breast finding Breast Finding Problem 01/26/2020 12:00: 00 AM EDT [place] ([facility]) [id number] Discharge from nipple Discharge from Nipple Problem 01/26/2020 12:00:00 AM EDT [place] ([facility]) [id number] Breast finding Breast Finding Problem 01/26/2020 12:00: 00 AM EDT [place] ([facility]) [id number] Discharge from nipple Discharge from Nipple Problem 01/26/2020 12:00:00 AM EDT [place] ([facility]) [id number] Breast finding Breast Finding Problem 01/26/2020 12:00: 00 AM EDT [place] ([facility]) [id number] Discharge from nipple Discharge from Nipple Problem 01/26/2020 12:00:00 AM EDT [place] ([facility]) [id number] Breast finding Breast Finding Problem 01/26/2020 12:00: 00 AM EDT [place] ([facility]) [id number] Discharge from nipple Discharge from Nipple Problem 01/26/2020 12:00:00 AM EDT [place] ([facility]) [id number] Breast finding Breast Finding Problem 01/26/2020 12:00: 00 AM EDT [place] ([facility]) [id number] Discharge from nipple Discharge from Nipple Problem 01/26/2020 12:00:00 AM EDT [place] ([facility]) [id number] Breast finding Breast Finding Problem 01/26/2020 12:00: 00 AM EDT [place] ([facility]) [id number] Discharge from nipple Discharge from Nipple Problem 01/26/2020 12:00:00 AM EDT [place] ([facility]) [id number] Breast finding Breast Finding Problem 01/26/2020 12:00: 00 AM EDT [place] ([facility]) [id number] Discharge from nipple Discharge from Nipple Problem 01/26/2020 12:00:00 AM EDT [place] ([facility]) [id number] Breast finding Breast Finding Problem 01/26/2020 12:00: 00 AM EDT [place] ([facility]) [id number] Discharge from nipple Discharge from Nipple Problem 01/26/2020 12:00:00 AM EDT [place] ([facility]) [id number] Breast finding Breast Finding Problem 01/26/2020 12:00: 00 AM EDT [place] ([facility]) [id number] Discharge from nipple Discharge from Nipple Problem 01/26/2020 12:00:00 AM EDT [place] ([facility]) [id number] Breast finding Breast Finding Problem 01/26/2020 12:00: 00 AM EDT [place] ([facility]) [id number] Discharge from nipple Discharge from Nipple Problem 01/26/2020 12:00:00 AM EDT [place] ([facility]) [id number] Breast finding Breast Finding Problem 01/26/2020 12:00: 00 AM EDT [place] ([facility]) [id number] Discharge from nipple Discharge from Nipple Problem 01/26/2020 12:00:00 AM EDT [place] ([facility]) Surgeries/Procedures Procedure Description Date Indications Data Source(s) Individual psychotherapy (regime/therapy) 01/05/2021 1 2:00:00 AM EDT [facility] ([facility]) Individual psychotherapy (regime/therapy) 01/05/2021 1 2:00:00 AM EDT [facility] ([facility]) Evaluation AND/OR management - established patient (procedur e) 12/26/2020 12:00:00 [facility] Individual psychotherapy (regime/therapy) 12/21/2020 1 2:00:00 AM EDT [facility] ([facility]) Individual psychotherapy (regime/therapy) 12/21/2020 1 2:00:00 AM EDT [facility] ([facility]) Individual psychotherapy (regime/therapy) 12/07/2020 1 2:00:00 AM EDT [facility] ([facility]) Individual psychotherapy (regime/therapy) 12/07/2020 1 2:00:00 AM EDT [facility]) Individual psychotherapy (regime/therapy) 12/07/2020 1 2:00:00 AM EDT [facility] ([facility]) Individual psychotherapy (regime/therapy) 12/07/2020 1 2:00:00 AM EDT [facility] ([facility]) Individual psychotherapy (regime/therapy) 11/23/2020 1 2:00:00 AM EDT [facility] ([facility]) Individual psychotherapy (regime/therapy) 11/23/2020 1 2:00:00 AM EDT [facility] ([facility]) Individual psychotherapy (regime/therapy) 11/23/2020 1 2:00:00 AM EDT [facility] ([facility]) Individual psychotherapy (regime/therapy) 11/23/2020 1 2:00:00 AM EDT [facility] ([facility]) Individual psychotherapy (regime/therapy) 11/23/2020 1 2:00:00 AM EDT [facility] ([facility]) Individual psychotherapy (regime/therapy) 11/23/2020 1 2:00:00 AM EDT [facility] ([facility]) Evaluation AND/OR management - established patient (procedur e) 11/21/2020 12:00:00 AM EDT [facility] ([facility]) Evaluation AND/OR management - established patient (procedur e) 11/21/2020 12:00:00 AM EDT [facility] ([facility]) Evaluation AND/OR management - established patient (procedur e) 11/21/2020 12:00:00 AM EDT [facility] ([facility]) Viral antigen assay (procedure) 11/20/2020 12:00:00 AM EDT [facility] Individual psychotherapy (regime/therapy) 11/09/2020 1 2:00:00 AM EDT [facility] ([facility]) Individual psychotherapy (regime/therapy) 11/09/2020 1 2:00:00 AM EDT [facility] ([facility]) Individual psychotherapy (regime/therapy) 11/09/2020 1 2:00:00 AM EDT [facility] ([facility]) Individual psychotherapy (regime/therapy) 11/09/2020 1 2:00:00 AM EDT [facility] ([facility]) Individual psychotherapy (regime/therapy) 11/09/2020 1 2:00:00 AM EDT [facility] ([facility]) Individual psychotherapy (regime/therapy) 11/09/2020 1 2:00:00 AM EDT [facility] ([facility]) Individual psychotherapy (regime/therapy) 11/09/2020 1 2:00:00 AM EDT [facility] ([facility]) Individual psychotherapy (regime/therapy) 11/09/2020 1 2:00:00 AM EDT [facility] ([facility]) Individual psychotherapy (regime/therapy) 10/26/2020 1 2:00:00 AM EDT [facility] ([facility]) Individual psychotherapy (regime/therapy) 10/26/2020 1 2:00:00 AM EDT [facility] ([facility]) Individual psychotherapy (regime/therapy) 10/26/2020 1 2:00:00 AM EDT [facility] ([facility]) Individual psychotherapy (regime/therapy) 10/26/2020 1 2:00:00 AM EDT [facility] ([facility]) Individual psychotherapy (regime/therapy) 10/26/2020 1 2:00:00 AM EDT [facility] ([facility]) Individual psychotherapy (regime/therapy) 10/26/2020 1 2:00:00 AM EDT [facility] ([facility]) Individual psychotherapy (regime/therapy) 10/26/2020 1 2:00:00 AM EDT [facility] ([facility]) Individual psychotherapy (regime/therapy) 10/26/2020 1 2:00:00 AM EDT [facility] ([facility]) Individual psychotherapy (regime/therapy) 10/26/2020 1 2:00:00 AM EDT [facility] ([facility]) Individual psychotherapy (regime/therapy) 10/26/2020 1 2:00:00 AM EDT [facility]) Initial psychiatric evaluation (procedure) 10/17/2020 12:00:00 AM EDT [facility] ([facility]) Initial psychiatric evaluation (procedure) 10/17/2020 12:00:00 AM EDT [facility] ([facility]) Initial psychiatric evaluation (procedure) 10/17/2020 12:00:00 AM EDT [facility]) Initial psychiatric evaluation (procedure) 10/17/2020 12:00:00 AM EDT [facility] ([facility]) Initial psychiatric evaluation (procedure) 10/17/2020 12:00:00 AM EDT [facility] ([facility]) Initial psychiatric evaluation (procedure) 10/17/2020 12:00:00 AM EDT [facility] ([facility]) Individual psychotherapy (regime/therapy) 10/12/2020 1 2:00:00 AM EDT [facility] ([facility]) Individual psychotherapy (regime/therapy) 10/12/2020 1 2:00:00 AM EDT [facility] ([facility]) Individual psychotherapy (regime/therapy) 10/12/2020 1 2:00:00 AM EDT [facility] ([facility]) Individual psychotherapy (regime/therapy) 10/12/2020 1 2:00:00 AM EDT [facility] ([facility]) Individual psychotherapy (regime/therapy) 10/12/2020 1 2:00:00 AM EDT [facility] ([facility]) Individual psychotherapy (regime/therapy) 10/12/2020 1 2:00:00 AM EDT [facility] ([facility]) Individual psychotherapy (regime/therapy) 10/12/2020 1 2:00:00 AM EDT [facility] ([facility]) Individual psychotherapy (regime/therapy) 09/19/2020 1 2:00:00 AM EDT [facility] ([facility]) Individual psychotherapy (regime/therapy) 09/19/2020 1 2:00:00 AM EDT [facility] ([facility]) Individual psychotherapy (regime/therapy) 09/19/2020 1 2:00:00 AM EDT [facility] ([facility]) Individual psychotherapy (regime/therapy) 09/19/2020 1 2:00:00 AM EDT [facility] ([facility]) Individual psychotherapy (regime/therapy) 09/19/2020 1 2:00:00 AM EDT [facility] ([facility]) Individual psychotherapy (regime/therapy) 09/19/2020 1 2:00:00 AM EDT [facility] ([facility]) Individual psychotherapy (regime/therapy) 09/19/2020 1 2:00:00 AM EDT [facility] ([facility]) Individual psychotherapy (regime/therapy) 09/19/2020 1 2:00:00 AM EDT [facility] ([facility]) Individual psychotherapy (regime/therapy) 09/19/2020 1 2:00:00 AM EDT [facility] ([facility]) Individual psychotherapy (regime/therapy) 09/19/2020 1 2:00:00 AM EDT [facility] ([facility]) Individual psychotherapy (regime/therapy) 09/19/2020 1 2:00:00 AM EDT [facility] ([facility]) Individual psychotherapy (regime/therapy) 09/19/2020 1 2:00:00 AM EDT [facility] ([facility]) Individual psychotherapy (regime/therapy) 09/19/2020 1 2:00:00 AM EDT [facility] ([facility]) Individual psychotherapy (regime/therapy) 09/19/2020 1 2:00:00 AM EDT [facility] ([facility]) Individual psychotherapy (regime/therapy) 09/19/2020 1 2:00:00 AM EDT [facility] ([facility]) Individual psychotherapy (regime/therapy) 09/19/2020 1 2:00:00 AM EDT [facility] ([facility]) Individual psychotherapy (regime/therapy) 09/05/2020 1 2:00:00 AM EDT [facility] ([facility]) Individual psychotherapy (regime/therapy) 09/05/2020 1 2:00:00 AM EDT [facility] ([facility]) Individual psychotherapy (regime/therapy) 09/05/2020 1 2:00:00 AM EDT [facility] ([facility]) Individual psychotherapy (regime/therapy) 09/05/2020 1 2:00:00 AM EDT [facility] ([facility]) Individual psychotherapy (regime/therapy) 09/05/2020 1 2:00:00 AM EDT [facility] ([facility]) Individual psychotherapy (regime/therapy) 09/05/2020 1 2:00:00 AM EDT [facility] ([facility]) Individual psychotherapy (regime/therapy) 09/05/2020 1 2:00:00 AM EDT [facility] ([facility]) Individual psychotherapy (regime/therapy) 09/05/2020 1 2:00:00 AM EDT [facility] ([facility]) Individual psychotherapy (regime/therapy) 09/05/2020 1 2:00:00 AM EDT [facility] ([facility]) Individual psychotherapy (regime/therapy) 09/05/2020 1 2:00:00 AM EDT [facility] ([facility]) Individual psychotherapy (regime/therapy) 09/05/2020 1 2:00:00 AM EDT [facility] ([facility]) Individual psychotherapy (regime/therapy) 09/05/2020 1 2:00:00 AM EDT [facility] ([facility]) Individual psychotherapy (regime/therapy) 09/05/2020 1 2:00:00 AM EDT [facility] ([facility]) Individual psychotherapy (regime/therapy) 09/05/2020 1 2:00:00 AM EDT [facility] ([facility]) Individual psychotherapy (regime/therapy) 09/05/2020 1 2:00:00 AM EDT [facility] ([facility]) Individual psychotherapy (regime/therapy) 09/05/2020 1 2:00:00 AM EDT [facility] ([facility]) Individual psychotherapy (regime/therapy) 09/05/2020 1 2:00:00 AM EDT [facility] ([facility]) Individual psychotherapy (regime/therapy) 09/05/2020 1 2:00:00 AM EDT [facility] ([facility]) Chlamydia/Neisseria (PCR) 09/01/2020 12:00:00 AM EDT [facility] Individual psychotherapy (regime/therapy) 08/29/2020 1 2:00:00 AM EDT [facility] ([facility]) Individual psychotherapy (regime/therapy) 08/29/2020 1 2:00:00 AM EDT [facility] ([facility]) Individual psychotherapy (regime/therapy) 08/29/2020 1 2:00:00 AM EDT [facility] ([facility]) Individual psychotherapy (regime/therapy) 08/29/2020 1 2:00:00 AM EDT [facility] ([facility]) Individual psychotherapy (regime/therapy) 08/29/2020 1 2:00:00 AM EDT [facility] ([facility]) Individual psychotherapy (regime/therapy) 08/29/2020 1 2:00:00 AM EDT [facility] ([facility]) Individual psychotherapy (regime/therapy) 08/29/2020 1 2:00:00 AM EDT [facility] ([facility]) Individual psychotherapy (regime/therapy) 08/29/2020 1 2:00:00 AM EDT [facility] ([facility]) Individual psychotherapy (regime/therapy) 08/29/2020 1 2:00:00 AM EDT [facility] ([facility]) Individual psychotherapy (regime/therapy) 08/29/2020 1 2:00:00 AM EDT [facility] ([facility]) Individual psychotherapy (regime/therapy) 08/29/2020 1 2:00:00 AM EDT [facility] ([facility]) Individual psychotherapy (regime/therapy) 08/29/2020 1 2:00:00 AM EDT [facility] ([facility]) Individual psychotherapy (regime/therapy) 08/29/2020 1 2:00:00 AM EDT [facility] ([facility]) Individual psychotherapy (regime/therapy) 08/29/2020 1 2:00:00 AM EDT [facility] ([facility]) Individual psychotherapy (regime/therapy) 08/29/2020 1 2:00:00 AM EDT [facility] ([facility]) Individual psychotherapy (regime/therapy) 08/29/2020 1 2:00:00 AM EDT [facility] ([facility]) Individual psychotherapy (regime/therapy) 08/29/2020 1 2:00:00 AM EDT [facility] ([facility]) Individual psychotherapy (regime/therapy) 08/29/2020 1 2:00:00 AM EDT [facility]) Individual psychotherapy (regime/therapy) 08/29/2020 1 2:00:00 AM EDT [facility] ([facility]) Individual psychotherapy (regime/therapy) 08/29/2020 1 2:00:00 AM EDT [facility]) Individual psychotherapy (regime/therapy) 08/22/2020 1 2:00:00 AM EDT [facility] ([facility]) Individual psychotherapy (regime/therapy) 08/22/2020 1 2:00:00 AM EDT [facility] ([facility]) Individual psychotherapy (regime/therapy) 08/22/2020 1 2:00:00 AM EDT [facility] ([facility]) Individual psychotherapy (regime/therapy) 08/22/2020 1 2:00:00 AM EDT [facility] ([facility]) Individual psychotherapy (regime/therapy) 08/22/2020 1 2:00:00 AM EDT [facility] ([facility]) Individual psychotherapy (regime/therapy) 08/22/2020 1 2:00:00 AM EDT [facility] ([facility]) Individual psychotherapy (regime/therapy) 08/22/2020 1 2:00:00 AM EDT [facility] ([facility]) Individual psychotherapy (regime/therapy) 08/22/2020 1 2:00:00 AM EDT [facility] ([facility]) Individual psychotherapy (regime/therapy) 08/22/2020 1 2:00:00 AM EDT [facility] ([facility]) Individual psychotherapy (regime/therapy) 08/22/2020 1 2:00:00 AM EDT [facility] ([facility]) Individual psychotherapy (regime/therapy) 08/22/2020 1 2:00:00 AM EDT [facility] ([facility]) Individual psychotherapy (regime/therapy) 08/22/2020 1 2:00:00 AM EDT [facility] ([facility]) Individual psychotherapy (regime/therapy) 08/22/2020 1 2:00:00 AM EDT [facility] ([facility]) Individual psychotherapy (regime/therapy) 08/22/2020 1 2:00:00 AM EDT [facility] ([facility]) Individual psychotherapy (regime/therapy) 08/22/2020 1 2:00:00 AM EDT [facility] ([facility]) Individual psychotherapy (regime/therapy) 08/22/2020 1 2:00:00 AM EDT [facility] ([facility]) Individual psychotherapy (regime/therapy) 08/22/2020 1 2:00:00 AM EDT [facility] ([facility]) Individual psychotherapy (regime/therapy) 08/22/2020 1 2:00:00 AM EDT [facility] ([facility]) Individual psychotherapy (regime/therapy) 08/22/2020 1 2:00:00 AM EDT [facility] ([facility]) Individual psychotherapy (regime/therapy) 08/22/2020 1 2:00:00 AM EDT [facility] ([facility]) Diagnostic psychiatric interview (procedure) 1 12:00:00 AM EDT [facility] ([facility]) Diagnostic psychiatric interview (procedure) 1 12:00:00 AM EDT [facility] ([facility]) Diagnostic psychiatric interview (procedure) 1 12:00:00 AM EDT [facility] ([facility]) Diagnostic psychiatric interview (procedure) 1 12:00:00 AM EDT [facility] ([facility]) Diagnostic psychiatric interview (procedure) 1 12:00:00 AM EDT [facility] ([facility]) Diagnostic psychiatric interview (procedure) 1 12:00:00 AM EDT [facility] ([facility]) Diagnostic psychiatric interview (procedure) 1 12:00:00 AM EDT [facility] ([facility]) Diagnostic psychiatric interview (procedure) 04/28/202 1 12:00:00 AM EDT [facility] ([facility]) Diagnostic psychiatric interview (procedure) 1 12:00:00 AM EDT [facility] ([facility]) Diagnostic psychiatric interview (procedure) 1 12:00:00 AM EDT [facility] ([facility]) Diagnostic psychiatric interview (procedure) 1 12:00:00 AM EDT [facility]) Results ID Date Data Source [id number] 02/08/2021 09:44:00 AM EDT [facility] Patient Name: SHANNAN GALLEGOS DO B: 1995 Sex: F Pt Unit #: [id number] Location:[facility] Provider: Visit Date/Time: 02/08/21 Primary Insurance: [facility]ICARE [facility] Secondary Insurance: [facility] 2ND R Intake Vital Signs 02/08/21 09:44 [...] if she should go see him.She sees CHEMICAL LAB TECHNICIAN downstairs but she wanted you to know that she is more irritable a week prior to her menses. Natural Resources Technician Required: No Accompanied by: Self / Same [...] and colleagues, 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 Vision [facility] - right eye: 20/20 [facility] - left eye: 20/20 [facility] - bilateral eyes: 20/20 Functional Assessment Bathing: Independent Dressing: Independent Toileting: Independent Transferring: Independent Continence: Independent Feeding: Independent Total Score: 6 Home Safety Home Safety: Reports Lighting: Adequate, [place]: No throw rugs and Stairs: Handrail available; [...] Complexity Diagnoses Medicare annual wellness visit, subsequent Z00.00 Additional Codes Functional Assessment (1170F) Time Spent [...] and colleagues, 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 <Electronically signed by Florina Mercedes NP> 02/08/21 1030 Name Value Range Interpretation Code Description Data Alysa rce(s) Supporting Document(s) ID Date Data Source [id number] 01/03/2021 04:38:00 PM EDT [facility] <0.90 Index Interpretation ----- < 0.90 Negative [...] when erythemamigrans is apparent.THIS TEST WAS PERFORMED AT:[facility] [address]UMHIYXMary CRUZ Reportable Result Name Value Range Interpretation Code Description Data Alysa rce(s) Supporting Document(s) Erythrocyte sedimentation rate by Westergren method 1 mm/hr 0-20 N [facility] @Reenter manual test result: 1@by Jessy Flores at 01/03/21 1638. ID Date Data Source [id number] 01/03/2021 05:55:00 PM [facility] <0.90 Index Interpretation ----- < 0.90 Negative [...] when erythemamigrans is apparent.THIS TEST WAS PERFORMED AT:[facility] [address]JBPVQTMary CRUZ Reportable Result Name Value Range Interpretation Code Description Data Alysa rce(s) Supporting Document(s) Vitamin B12 634 pg/mL 211-911 [facility] ID Date Data Source [id number] 01/03/2021 06:06:00 PM [facility] <0.90 Index Interpretation ----- < 0.90 Negative [...] when erythemamigrans is apparent.THIS TEST WAS PERFORMED AT:[facility] [address]LJWVYGMary CRUZ Reportable Result Name Value Range Interpretation Code Description Data Alysa rce(s) Supporting Document(s) Folate [Mass/volume] in Serum or Plasma 30.5 ng/mL [facility] @Instrument will autodilute FOLATE INTERPRETATION NORMAL: GREATER THAN 5.38 INDETERMINATE: 3.38 - 5.38 DEFICIENT: LESS THAN 3.37 ID Date Data Source [id number] 01/11/2021 06:51:00 AM EDT [facility] <0.90 Index Interpretation ----- < 0.90 Negative [...] when erythemamigrans is apparent.THIS TEST WAS PERFORMED AT:[facility] [address]CXJVMZMary CRUZ Reportable Result Name Value Range Interpretation Code Description Data Alysa rce(s) Supporting Document(s) Lupus anticoagulant two screening tests W Reflex [interpretation] [facility] A Lupus Anticoagulant is not detected.Re ference Range: Not DetectedFor additional information, please refer tohttp://education.[place]/faq/VVI62i3(This link is being provided for informational/educational purposes only.)This interpretation is based on the following testresults. aPTT.lupus sensitive (LA screen) 34 sec <=40 [facility] dRVVT (LA screen) 37 sec <=45 [facility] Mixing studies [Interpretation] in Platelet poor plasma Narr ative Not Indicated [facility] THIS TEST WAS PERFORMED AT:[facility]/[id number] [place] [address]HCJBDPXSARAH VARNER MD,PHD [facility] ID Date Data Source [id number] 01/03/2021 06:06:00 PM EDT [facility] <0.90 Index Interpretation ----- < 0.90 Negative [...] when erythemamigrans is apparent.THIS TEST WAS PERFORMED AT:[facility] [address]EOUXSGMary CRUZ Reportable Result Name Value Range Interpretation Code Description Data Alysa rce(s) Supporting Document(s) Thyrotropin [Units/volume] in Serum or Plasma by Detec tion limit <= 0.005 mIU/L 1.16 u[iU]/mL 0.35-5.50 N [facility] al ID Date Data Source [id number] 01/11/2021 06:51:00 AM [facility] <0.90 Index Interpretation ----- < 0.90 Negative [...] when erythemamigrans is apparent.THIS TEST WAS PERFORMED AT:[facility] [address]OYMTYZMary CRUZ Reportable Result Name Value Range Interpretation Code Description Data Alysa rce(s) Supporting Document(s) Borrelia burgdorferi Ab [Units/volume] in Serum by Immunoassay <0.9 0 index [facility] Index Interpretation ----- < 0.90 Negative 0.90-1.09 [...] when erythemamigrans is apparent.THIS TEST WAS PERFORMED AT:[facility] [address]UYPQWTMD CARMEN CRUZ Date Data Source [id number] 01/03/2021 06:06:00 PM EDT [facility] <0.90 Index Interpretation ----- < 0.90 Negative [...] when erythemamigrans is apparent.THIS TEST WAS PERFORMED AT:[facility] [address]FYEETRMary CRUZ Reportable Result Name Value Range Interpretation Code Description Data Alysa rce(s) Supporting Document(s) Rheumatoid factor [Units/volume] in Serum by Nephelometry Le ss Than 10.0 0.0-14.0 N [facility] ID Date Data Source [id number] 01/11/2021 06:51:00 AM EDT [facility] <0.90 Index Interpretation ----- < 0.90 Negative [...] when erythemamigrans is apparent.THIS TEST WAS PERFORMED AT:[facility] [address]FTZLBE MERATI,MDNo Reportable Result Name Value Range Interpretation Code Description Data Alysa rce(s) Supporting Document(s) Cyclic citrullinated peptide IgG Ab [Units/volume] in Serum or Plasma <16 UNITS [facility] Reference RangeNegative: <20W eak Positive: 20-39Moderate Positive: 40-59Strong Positive: >59THIS TEST WAS PERFORMED AT:[facility] [address]MARCY WATTS MD ID Date Data Source [id number] 01/03/2021 02:44:00 PM EDT [facility] Patient Name: SHANNAN GALLEGOS DO B: 1995 Sex: F Pt Unit #: [id number] Location:[facility] Provider: Visit Date/Time: 01/03/21 Primary Insurance: MEDICARE [facility] Secondary Insurance: MEDICAID [facility] 2ND R Intake Vital Signs 01/03/21 14:47 [...] Present Illness Associated symptoms: Reports weight gain [facility] Medical History Adopted Anxiety Depression Dyspareunia Foot [...] good Judgment: judgment good Immunizations flu vac [id number] 36mos up(PF) Performing Provider: Florina Mercedes NP Administered by: Edie Wallace on 01/03/21 14:55 Dose Route Admin Location Lot Number Expiration Date [facility] Manufactu rer 0.5 mL IM Left deltoid [id number] 10/11/21 77208-180-16 [employer] VIS Given Date VIS Provided VIS Publication Date 01/03/21 Single Vaccine 20 Eligibility Eligibility Date Funding Source Not [facility] Eligible 01/03/21 Private Assessment Plan Assessment Plan [...] [place] [address] Est Pt Extended Comp Patient Type Established [...] rce(s) Supporting Document(s) ID Date Data Source [id number] 12/29/2020 08:00:00 AM EDT [facility] Patient Name: SHANNAN GALLEGOS DO B: 1995 Sex: F Pt Unit #: [id number] Location:[facility] Provider: Visit Date/Time: 12/29/20 Primary Insurance: MEDICARE [facility] Secondary Insurance: MEDICAID [facility] 2ND R Intake Vital Signs 12/29/20 08:01 [...] slurred speech, vertigo, weight loss or other [facility] Medical History Adopted Anxiety Depression Dyspareunia Foot [...] No current occupational status: employed current occupation: [employer] pets and animals: Yes pets and animals: [...] the plan. Coding Level of Care Code 50912 Est Pt Limited Comp Diagnoses Headache R51.9 Additional Codes Intake - Is patient in pain?: Yes (1125F) <Electronically signed by Pinky Villareal FINANCIAL AID DIRECTOR> 12/29/20 0825 Name Value Range Interpretation Code Description Data Alysa rce(s) Supporting Document(s) ID Date Data Source [id number] 11/20/2020 04:36:00 PM EDT [facility] Patient Name: SHANNAN GALLEGOS DO B: 1995 Sex: F Pt Unit #: [id number] Location:[facility] Provider: Visit Date/Time: 11/20/20 Primary Insurance: MEDICARE [facility] Secondary Insurance: MEDICAID [facility] 2ND R Intake Intake Visit Reasons: Telemed [...] Additional HPI HPI Details: telemedicine agree with health informatics advisor intake confirm name confirm date of covid19 [...] Code(s): R53.83 - Other fatigue SNOMED Code(s): 89800139 Category: Medical Plan: reassurance and observation gave [...] rce(s) Supporting Document(s) ID Date Data Source [id number] 11/20/2020 04:08:00 PM EDT [facility] Normal result is "BinaxNow Covid-19 Ag n egative"BinaxNow Covid-19 Ag is a rapid lateral flowimmunochromatographic immunoassayThis test detects both viable(live) and non-viable, SARS-COVand SARS-COV-2.Positive test results do not differentiate between SARS-COVand BWKC-MQU-0Srnsqjmr results , from patients with symptom onset beyondseven days, should be treated as presumptive andconfirmation with a molecular assay, if necessary, forpatient managementIf the differentiation of specific SARS viruses and strainsis needed, additional testing, in consultation with stateand local public health departments, is required.SARS-CoV-2 Ag Resp Ql IA.rapid Name Value Range Interpretation Code Description Data Alysa rce(s) Supporting Document(s) ID Date Data Source [id number] 11/20/2020 02:35:00 PM EDT [facility] Name Value Range Interpretation Code Description Data Alysa rce(s) Supporting Document(s) SARS-CoV-2 (COVID-19) Ag [Presence] in R espiratory specimen by Rapid immunoassay BinaxNow Covid -19 Ag Negative [facility] This lab was ordered by [facility] and reported by [facility]. ID Date Data Source [id number] 10/27/2020 08:43:00 AM EDT [facility] Not Collected Reason:: DX NOT PASSING W/ MCRTEST(S) ORDERED:: LIPID, VD25, HGBA1C Name Value Range Interpretation Code Description Data Alysa rce(s) Supporting Document(s) Leukocytes [#/volume] in Blood by Automated count 5.0 10*3/uL 4.45-10 .71 N [facility] Erythrocytes [#/volume] in Blood by Automated count 4.25 10*6/uL 4.20 -5.40 N [facility] Hemoglobin [Moles/volume] in Blood 13.0 g/dL 10.7-15.4 N [facility] Hematocrit [Volume Fraction] of Blood by Automated count 39.4 % 3 7-47 N [facility] Erythrocyte mean corpuscular volume [Ent itic volume] in Cord blood by Automated count 93 fL 80-96 N [facility] ital Erythrocyte mean corpuscular hemoglobin [Entitic mass] by Au tomated count 31 pg 27-31 N [facility] Erythrocyte mean corpuscular hemoglobin concentration [Mass/volume] in Cord blood 33 g/dL 33-37 N [facility] ital Erythrocyte distribution width [Entitic volume] by Automated count 12 % 11-15 N [facility] Platelets [#/volume] in Blood by Automated count 277 10*3/uL 130-472 N [facility] Platelet mean volume [Entitic volume] in Blood 9.7 fL 9.1-13.1 N [facility] Neutrophils/100 leukocytes in Blood by Automated count 51.0 % 41- 77 N [facility] Neutrophils [#/volume] in Blood by Automated count 2.6 U 1.7-7.6 N [facility] Lymphocytes/100 leukocytes in Blood by Automated count 35.8 % 14- 46 N [facility] Lymphocytes [#/volume] in Blood by Automated count 1.8 U 0.6-4.6 N [facility] Monocytes/100 leukocytes in Blood by Automated count 9.2 % 4-12 N [facility] Monocytes [#/volume] in Blood by Automated count 0.5 U 0.2-1.2 N [facility] Eosinophils/100 leukocytes in Blood by Automated count 3.0 % 0-7 N [facility] Eosinophils [#/volume] in Blood by Automated count 0.2 U 0.0-0.5 N [facility] Basophils/100 leukocytes in Blood by Automated count 0.8 % 0.4-1 .3 N [facility] Basophils [#/volume] in Blood by Automated count 0.0 U 0.0-0.2 N [facility] NUCLEATED RED BLOOD CELL 0 % [facility] NUCLEATED RED BLOOD CELL# [address] [facility] Immature granulocytes [Presence] in Blood by Automated count 0-2 N [facility] Immature granulocytes [#/volume] in Blood by Automated count 0.0 U 0-0.1 N [facility] Manual Differential panel - Blood NO [facility] ID Date Data Source [id number] 10/27/2020 09:23:00 AM EDT [facility] Not Collected Reason:: DX NOT PASSING W/ MCRTEST(S) ORDERED:: LIPID, VD25, HGBA1C Name Value Range Interpretation Code Description Data Alysa rce(s) Supporting Document(s) Urea nitrogen [Mass/volume] in Serum or Plasma 12 mg/dL 9-23 N [facility] Sodium [Moles/volume] in Serum or Plasma 139 mmol/L 132-146 N [facility] Potassium [Moles/volume] in Serum or Plasma 4.3 mmol/L 3.5-5.5 N [facility] Chloride [Moles/volume] in Serum or Plasma 106 mmol/L 99-109 N [facility] Carbon dioxide, total [Moles/volume] in Serum or Plasma 28 mmol/L 20 -31 N [facility] Anion gap in Serum or Plasma 9 mmol/L 8-16 N [facility] Glucose [Mass/volume] in Serum or Plasma 90 mg/dL 74-106 N [facility] Creatinine 0.7 mg/dL 0.5-1.1 N [facility] Glomerular filtration rate/1.73 sq M.pre dicted [Volume Rate/Area] in Serum or Plasma Greater Than 60 ABOVE 60 [facility] Alanine aminotransferase [Enzymatic acti vity/volume] in Serum or Plasma by With P-5'-P 18 U/L 10-49 N [facility] ital Aspartate aminotransferase [Enzymatic ac tivity/volume] in Serum or Plasma by With P-5'-P 14 U/L 0-33 N [facility] pital Alkaline phosphatase [Enzymatic activity/volume] in Serum or Plasma 87 U/L 45-129 N [facility] Calcium [Mass/volume] in Serum or Plasma 8.8 mg/dL 8.5-10.1 [facility] Bilirubin.total [Mass/volume] in Serum or Plasma 0.7 mg/dL 0.3-1.2 N [facility] Albumin [Mass/volume] in Serum or Plasma by Bromocresol purple (BCP) dye binding method 3.8 g/dL 3.2-4.8 N [facility] ital Protein [Mass/volume] in Serum or Plasma 7.1 g/dL 5.7-8.2 N [facility] ID Date Data Source [id number] [facility] DX NOT PASSING W/ MCRTEST(S) ORDERED:: LIPID, VD25, HGBA1C Name Value Range Interpretation Code Description Data Alysa rce(s) Supporting Document(s) TRIIODOTHYRONINE, FREE, SERUM 2.9 pg/mL 2.3-4.2 [facility] THIS TEST WAS PERFORMED AT:[facility] [address] [address]YXDRRV MERATI,MD ID Date Data Source [id number] 10/27/2020 09:23:00 AM [facility] Not Collected Reason:: DX NOT PASSING W/ MCRTEST(S) ORDERED:: LIPID, VD25, HGBA1C Name Value Range Interpretation Code Description Data Alysa rce(s) Supporting Document(s) Bilirubin.direct [Mass/volume] in Serum or Plasma 0.2 mg/dL 0.0-0.2 N [facility] ID Date Data Source [id number] 10/27/2020 09:23:00 AM [facility] Not Collected Reason:: DX NOT PASSING W/ MCRTEST(S) ORDERED:: LIPID, VD25, HGBA1C Name Value Range Interpretation Code Description Data Alysa rce(s) Supporting Document(s) Phosphate [Mass/volume] in Serum or Plasma 2.8 mg/dL 2.4-5.1 [facility] ID Date Data Source [id number] 10/27/2020 09:23:00 AM [facility] Not Collected Reason:: DX NOT PASSING W/ MCRTEST(S) ORDERED:: LIPID, VD25, HGBA1C Name Value Range Interpretation Code Description Data Alysa rce(s) Supporting Document(s) Thyroxine (T4) free [Mass/volume] in Serum or Plasma 0.75 ng/dL 0.89-1.76 Below low normal [facility] ID Date Data Source [id number] 10/27/2020 09:23:00 AM [facility] Not Collected Reason:: DX NOT PASSING W/ MCRTEST(S) ORDERED:: LIPID, VD25, HGBA1C Name Value Range Interpretation Code Description Data Alysa rce(s) Supporting Document(s) Thyrotropin [Units/volume] in Serum or Plasma by Detec tion limit <= 0.005 mIU/L 1.35 u[iU]/mL 0.35-5.50 [facility] al ID Date Data Source [id number] 10/27/2020 08:05:00 AM [facility] Not Collected Reason:: DX NOT PASSING W/ MCRTEST(S) ORDERED:: LIPID, VD25, HGBA1C Name Value Range Interpretation Code Description Data Alysa rce(s) Supporting Document(s) Laboratory LIPID, VD25, HGBA1C [facility] Laboratory studies (set) DX NOT PASSING W/[facility] Test(s) that were ordered on thisrequisi ton were not collected. ID Date Data Source [id number] 09/19/2020 04:14:00 PM [facility] Patient Name: SHANNAN GALLEGOS DO B: 1995 Sex: F Pt Unit #: [id number] Location:[facility] Provider: Visit Date/Time: 09/19/20 Primary Insurance: MEDICARE [facility] Secondary Insurance: MEDICAID [facility] 2ND R Intake Vital Signs 09/19/20 16:14 [...] No current occupational status: employed current occupation: [employer] pets and animals: Yes pets and [...] - Dietary counseling and surveillance SNOMED Code(s): 669359446 Category: Medical (3) Foot pain: Status: Acute Code(s): M79.673 - Pain in unspecified foot SNOMED Code(s): 90659903 Category: Me dical Plan: DISCUSSED LIFESTYLE MODIFICATIONS, DIET/EXERCISE. SOAK FEET, USE PUMICE STONE, MOISTURIZING LOTION. CONSIDER MECHANICAL DRAWING TEACHER IF NOT IMPROVED. RTC PRN [place] [address] Est Pt Extended Comp Patient Type Established History Detailed Exam Detailed Medical Decision Making Moderate Complexity Diagnoses Abnormal weight R68.89 Weight loss counseling, encounter for Z71.3 Foot pain M79.673 Time Spent (min) 30 <Electronically signed by Florina Mercedes NP> 09/19/20 1705 Name Value Range Interpretation Code Description Data Alysa rce(s) Supporting Document(s) ID Date Data Source [id number] 09/22/2020 08:59:00 AM EDT [facility] . . . . Name Value Range Interpretation Code Description Data Alysa rce(s) Supporting Document(s) Hepatitis B virus core Ab [Presence] in Serum or Plasma by I mmunoassay NON-REACTIVE Above high normal [facility] THIS TEST WAS PERFORMED AT:[facility] [address] [address]CNCCLL MERATI,MD ID Date Data Source [id number] 09/22/2020 08:59:00 AM EDT [facility] . . . . Name Value Range Interpretation Code Description Data Alysa rce(s) Supporting Document(s) Hepatitis B virus e Ag [Presence] in Serum or Plasma by Immunoassay [facility] Reference range: NonreactiveFor additio nal information, please refer tohttps://education.[place]/faq/FVX779(This link is being provided for informational/educational purposes only.)THIS TEST WAS PERFORMED AT:[facility] [facility]ENTERNext [place], [place] [address]SARAH VARNER MD,PHD ID Date Data Source [id number] 09/22/2020 08:59:00 AM EDT [facility] . . . . Name Value Range Interpretation Code Description Data Alysa rce(s) Supporting Document(s) Hepatitis B virus e Ab [Presence] in Serum or Plasma by Immunoassay [facility] Reference range: NonreactiveFor additio nal information, please refer tohttps://education.[place]/faq/JUS688(This link is being provided for informational/educational purposes only.)THIS TEST WAS PERFORMED AT:[facility] [place], [place] [address]SARAH VARNER MD,PHD ID Date Data Source [id number] 09/22/2020 08:59:00 AM EDT [facility] . . . . Name Value Range Interpretation Code Description Data Alysa rce(s) Supporting Document(s) Hepatitis B virus DNA [log units/volume] (viral load) in Serum or Plasma by Probe and target amplification method <1.00 NOT DETECTED [facility] REFERENCE RANGE: NOT DETECTED IU/mL NOT DETECTED Log IU/mLThis test was performed using Real-Time PolymeraseChain Reaction.Reportable range is 10 to 1,000,000,000 IU/mL(1.00-9.00 Log IU/mL).The analytical performance characteristics of thisassay have been determined by [facility]. The modifications have not beencleared or approved by the FDA. This assay has beenvalidated pursuant to the CLIA regulations and is usedfor clinical purposes.THIS TEST WAS PERFORMED AT:[facility],[id number] [place] [address]EVAGKHMARGRET JIANG MD Hepatitis B virus DNA [Units/volume] (vi ral load) in Serum or Plasma by Probe and target amplification method <10 NOT DETECTED [facility] ID Date Data Source [id number] 09/13/2020 12:15:[facility]LEGOS OB: 1995 Date: 10/02/20 [id number] Attending: Karla Luis DO Incontinence/Pelvic Pain exam - Patient Information Rehab Diagnosis:: dyspareunia Name: Karla Luis HPI/Complaint:: This pt is a 25 y/o female, , who presented to PT department with c/o pain during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 Supporting Document(s) AST/SGOT 10 U/L 7-37 AST/SGOT [place] ([facility]) alkaline phosphatase 80 U/L 45-117 Alkaline Phosph atase [place] ([facility]) ALT/SGPT 20 U/L 12-78 ALT/SGPT [place] ([facility]) bilirubin,direct 0.1 mg/dL 0.0-0.2 Bilirubin,direct AT [place] ([facility]) bilirubin,total 0.4 mg/dL 0.2-1.0 Bilirubin,total [place] ([facility]) total protein 7.6 gm/dL 6.4-8.2 Total Protein [place] ( [facility]) albumin 4.1 gm/dL 3.2-5.2 Albumin [place] ([facility]) albumin/globulin ratio 1.2-2.2 Albumin/globu harjit Ratio [place] ([facility]) ID Date Data Source [id number] 06/07/2020 04:20:00 PM EST [place] ([facility]) Name Value Range Interpretation Code Description Data Alysa rce(s) Supporting Document(s) amphetamines level urine negative negative Amphetamine s Level Urine [place] ([facility]) barbiturates urine negative negative Barbiturates Urin e [place] ([facility]) benzodiazepines urine negative negative Benzodiazepine s Urine [place] ([facility]) cocaine metabolite urine negative negative Cocaine Met abolite Urine [place] ([facility]) methadone urine negative negative Methadone Urine [place] ([facility]) cannabinoids urine negative negative Cannabinoids Urin e [place] ([facility]) phencyclidine urine negative negative Phencyclidine Ur ine [place] ([facility]) opiates urine negative negative Opiates Urine [place] ( [facility]) ID Date Data Source [id number] 06/07/2020 04:20:00 PM EST [place] ([facility]) Name Value Range Interpretation Code Description Data Alysa rce(s) Supporting Document(s) white blood count 6.7 10 4.0-10.0 White Blood Count [place] ([facility]) hemoglobin 12.9 g/dL 12.0-15.5 Hemoglobin [place] ([facility]) red blood count 4.18 10 4.00-5.40 Red Blood Count [place] ([facility]) mean corpuscular volume 94.7 fL 80.0-96.0 Mean Corpusc ular Volume [place] ([facility]) hematocrit 39.6 % 36.0-47.0 Hematocrit [place] ([facility]) red cell distribution width 12.3 % 11.5-14.5 Red Cell Distribution Width [place] ([facility]) mean corpuscular HGB conc 32.6 g/dL 32.0-36.5 Mean Corpu scular HGB Conc [place] ([facility]) mean corpuscular hemoglobin 30.9 pg 27.0-33.0 Mean Cor puscular Hemoglobin [place] ([facility]) nucleated red blood cell % 0.0 % 0-0 Nucleated Red Blood Cell % [place] ([facility]) platelet count, automated 274 10 150-450 Platelet C ount, Automated [place] ([facility]) ID Date Data Source [id number] 06/07/2020 04:20:00 PM EST [place] ([facility]) Name Value Range Interpretation Code Description Data Alysa rce(s) Supporting Document(s) HCG, serum qualitative negative negative HCG, Serum Qu alitative [place] ([facility]) ID Date Data Source [id number] 06/07/2020 04:20:00 PM EST [place] ([facility]) Name Value Range Interpretation Code Description Data Alysa rce(s) Supporting Document(s) thyroid stimulating hormone 1.150 uIU/mL 0.358-3.740 Thyroid Stimulating Hormone [place] ([facility]) ID Date Data Source [id number] 06/07/2020 04:20:00 PM EST [place] ([facility]) Name Value Range Interpretation Code Description Data Alysa rce(s) Supporting Document(s) acetaminophen level < 2.0 10.0-30.0 Below low normal Acetaminop hen Level [place] ([facility]) ID Date Data Source [id number] 06/07/2020 04:20:00 PM EST [place] ([facility]) Name Value Range Interpretation Code Description Data Alysa rce(s) Supporting Document(s) salicylate level < 1.7 5.0-30.0 Below low normal Salicylate Le jacques [place] ([facility]) ID Date Data Source [id number] 06/07/2020 04:20:00 PM EST [place] ([facility]) Name Value Range Interpretation Code Description Data Alysa rce(s) Supporting Document(s) ethyl alcohol (ethanol) < 0.003 0.000-0.010 Ethyl Alcoh ol (Ethanol) [place] ([facility]) ID Date Data Source [id number] 06/07/2020 04:20:00 PM EST [place] ([facility]) Name Value Range Interpretation Code Description Data Alysa rce(s) Supporting Document(s) blood urea nitrogen 10 mg/dL 7-18 Blood Urea Nitro gen [place] ([facility]) glucose, fasting 73 mg/dL 70-100 Glucose, Fasting AT [place] ([facility]) creatinine for GFR 0.60 mg/dL 0.55-1.30 Creatinine for GF R [place] ([facility]) potassium serum 4.3 mEq/L 3.5-5.1 Potassium Serum [place] ([facility]) glomerular filtration rate > 60.0 >60 Glomerula r Filtration Rate [place] ([facility]) sodium level 140 mEq/L 136-145 Sodium Level [place] ([facility]) chloride level 111 mEq/L 98-107 Above high normal Chloride Level [place] ([facility]) carbon dioxide level 22 mEq/L 21-32 Carbon Dioxide Level [place] ([facility]) anion gap 7 mEq/L 8-16 Below low normal Anion Gap [place] ( [facility]) calcium level 8.8 mg/dL 8.5-10.1 Calcium Level [place] ( [facility]) ID Date Data Source [id number] 06/07/2020 04:20:00 PM EST [place] ([facility]) Name Value Range Interpretation Code Description Data Alysa rce(s) Supporting Document(s) ALT/SGPT 20 U/L 12-78 ALT/SGPT [place] ([facility]) AST/SGOT 10 U/L 7-37 AST/SGOT [place] ([facility]) bilirubin,total 0.4 mg/dL 0.2-1.0 Bilirubin,total [place] ([facility]) alkaline phosphatase 80 U/L 45-117 Alkaline Phosph atase [place] ([facility]) bilirubin,direct 0.1 mg/dL 0.0-0.2 Bilirubin,direct AT [place] ([facility]) total protein 7.6 gm/dL 6.4-8.2 Total Protein [place] ( [facility]) albumin 4.1 gm/dL 3.2-5.2 Albumin [place] ([facility]) albumin/globulin ratio 1.2-2.2 Albumin/globu harjit Ratio [place] ([facility]) ID Date Data Source [id number] 06/07/2020 04:20:00 PM EST [place] ([facility]) Name Value Range Interpretation Code Description Data Alysa rce(s) Supporting Document(s) amphetamines level urine negative negative Amphetamine s Level Urine [place] ([facility]) barbiturates urine negative negative Barbiturates Urin e [place] ([facility]) benzodiazepines urine negative negative Benzodiazepine s Urine [place] ([facility]) cannabinoids urine negative negative Cannabinoids Urin e [place] ([facility]) cocaine metabolite urine negative negative Cocaine Met abolite Urine [place] ([facility]) methadone urine negative negative Methadone Urine [place] ([facility]) opiates urine negative negative Opiates Urine [place] ( [facility]) phencyclidine urine negative negative Phencyclidine Ur ine [place] ([facility]) ID Date Data Source [id number] 06/07/2020 04:20:00 PM EST [place] ([facility]) Name Value Range Interpretation Code Description Data Alysa rce(s) Supporting Document(s) white blood count 6.7 10 4.0-10.0 White Blood Count [place] ([facility]) red blood count 4.18 10 4.00-5.40 Red Blood Count [place] ([facility]) hemoglobin 12.9 g/dL 12.0-15.5 Hemoglobin [place] ([facility]) mean corpuscular volume 94.7 fL 80.0-96.0 Mean Corpusc ular Volume [place] ([facility]) mean corpuscular hemoglobin 30.9 pg 27.0-33.0 Mean Cor puscular Hemoglobin [place] ([facility]) hematocrit 39.6 % 36.0-47.0 Hematocrit [place] ([facility]) red cell distribution width 12.3 % 11.5-14.5 Red Cell Distribution Width [place] ([facility]) platelet count, automated 274 10 150-450 Platelet C ount, Automated [place] ([facility]) mean corpuscular HGB conc 32.6 g/dL 32.0-36.5 Mean Corpu scular HGB Conc [place] ([facility]) nucleated red blood cell % 0.0 % 0-0 Nucleated Red Blood Cell % [place] ([facility]) ID Date Data Source [id number] 06/07/2020 04:20:00 PM EST [place] ([facility]) Name Value Range Interpretation Code Description Data Alysa rce(s) Supporting Document(s) HCG, serum qualitative negative negative HCG, Serum Qu alitative [place] ([facility]) ID Date Data Source [id number] 06/07/2020 04:20:00 PM EST [place] ([facility]) Name Value Range Interpretation Code Description Data Alysa rce(s) Supporting Document(s) thyroid stimulating hormone 1.150 uIU/mL 0.358-3.740 Thyroid Stimulating Hormone [place] ([facility]) ID Date Data Source [id number] 06/07/2020 04:20:00 PM EST [place] ([facility]) Name Value Range Interpretation Code Description Data Alysa rce(s) Supporting Document(s) acetaminophen level < 2.0 10.0-30.0 Below low normal Acetaminop hen Level [place] ([facility]) ID Date Data Source [id number] 06/07/2020 04:20:00 PM EST [place] ([facility]) Name Value Range Interpretation Code Description Data Alysa rce(s) Supporting Document(s) salicylate level < 1.7 5.0-30.0 Below low normal Salicylate Le jacques [place] ([facility]) ID Date Data Source [id number] 06/07/2020 04:20:00 PM EST [place] ([facility]) Name Value Range Interpretation Code Description Data Alysa rce(s) Supporting Document(s) ethyl alcohol (ethanol) < 0.003 0.000-0.010 Ethyl Alcoh ol (Ethanol) [place] ([facility]) ID Date Data Source [id number] 06/07/2020 04:20:00 PM EST [place] ([facility]) Name Value Range Interpretation Code Description Data Alysa rce(s) Supporting Document(s) glucose, fasting 73 mg/dL 70-100 Glucose, Fasting AT [place] ([facility]) blood urea nitrogen 10 mg/dL 7-18 Blood Urea Nitro gen [place] ([facility]) glomerular filtration rate > 60.0 >60 Glomerula r Filtration Rate [place] ([facility]) creatinine for GFR 0.60 mg/dL 0.55-1.30 Creatinine for GF R [place] ([facility]) potassium serum 4.3 mEq/L 3.5-5.1 Potassium Serum [place] ([facility]) chloride level 111 mEq/L 98-107 Above high normal Chloride Level [place] ([facility]) sodium level 140 mEq/L 136-145 Sodium Level [place] ([facility]) anion gap 7 mEq/L 8-16 Below low normal Anion Gap [place] ( [facility]) carbon dioxide level 22 mEq/L 21-32 Carbon Dioxide Level [place] ([facility]) calcium level 8.8 mg/dL 8.5-10.1 Calcium Level [place] ( [facility]) ID Date Data Source [id number] 06/07/2020 04:20:00 PM EST [place] ([facility]) Name Value Range Interpretation Code Description Data Alysa rce(s) Supporting Document(s) ALT/SGPT 20 U/L 12-78 ALT/SGPT [place] ([facility]) AST/SGOT 10 U/L 7-37 AST/SGOT [place] ([facility]) alkaline phosphatase 80 U/L 45-117 Alkaline Phosph atase [place] ([facility]) bilirubin,direct 0.1 mg/dL 0.0-0.2 Bilirubin,direct AT [facility] ([facility]) total protein 7.6 gm/dL 6.4-8.2 Total Protein [place] ( [facility]) bilirubin,total 0.4 mg/dL 0.2-1.0 Bilirubin,total [place] ([facility]) albumin 4.1 gm/dL 3.2-5.2 Albumin [place] ([facility]) albumin/globulin ratio 1.2-2.2 Albumin/globu harjit Ratio [place] ([facility]) ID Date Data Source [id number] 06/07/2020 04:20:00 PM EST [place] ([facility]) Name Value Range Interpretation Code Description Data Alysa rce(s) Supporting Document(s) amphetamines level urine negative negative Amphetamine s Level Urine [place] ([facility]) barbiturates urine negative negative Barbiturates Urin e [place] ([facility]) benzodiazepines urine negative negative Benzodiazepine s Urine [place] ([facility]) cannabinoids urine negative negative Cannabinoids Urin e [place] ([facility]) cocaine metabolite urine negative negative Cocaine Met abolite Urine [place] ([facility]) methadone urine negative negative Methadone Urine [place] ([facility]) phencyclidine urine negative negative Phencyclidine Ur ine [place] ([facility]) opiates urine negative negative Opiates Urine [place] ( [facility]) ID Date Data Source [id number] 06/07/2020 04:20:00 PM EST [place] ([facility]) Name Value Range Interpretation Code Description Data Alysa rce(s) Supporting Document(s) white blood count 6.7 10 4.0-10.0 White Blood Count [place] ([facility]) red blood count 4.18 10 4.00-5.40 Red Blood Count [place] ([facility]) hemoglobin 12.9 g/dL 12.0-15.5 Hemoglobin [place] ([facility]) mean corpuscular volume 94.7 fL 80.0-96.0 Mean Corpusc ular Volume [place] ([facility]) hematocrit 39.6 % 36.0-47.0 Hematocrit [place] ([facility]) mean corpuscular hemoglobin 30.9 pg 27.0-33.0 Mean Cor puscular Hemoglobin [place] ([facility]) red cell distribution width 12.3 % 11.5-14.5 Red Cell Distribution Width [place] ([facility]) mean corpuscular HGB conc 32.6 g/dL 32.0-36.5 Mean Corpu scular HGB Conc [place] ([facility]) platelet count, automated 274 10 150-450 Platelet C ount, Automated [place] ([facility]) nucleated red blood cell % 0.0 % 0-0 Nucleated Red Blood Cell % [place] ([facility]) ID Date Data Source [id number] 06/07/2020 04:20:00 PM EST [place] ([facility]) Name Value Range Interpretation Code Description Data Alysa rce(s) Supporting Document(s) HCG, serum qualitative negative negative HCG, Serum Qu alitative [place] ([facility]) ID Date Data Source [id number] 06/07/2020 04:20:00 PM EST [place] ([facility]) Name Value Range Interpretation Code Description Data Alysa rce(s) Supporting Document(s) thyroid stimulating hormone 1.150 uIU/mL 0.358-3.740 Thyroid Stimulating Hormone [place] ([facility]) ID Date Data Source [id number] 06/07/2020 04:20:00 PM EST [place] ([facility]) Name Value Range Interpretation Code Description Data Alysa rce(s) Supporting Document(s) acetaminophen level < 2.0 10.0-30.0 Below low normal Acetaminop hen Level [place] ([facility]) ID Date Data Source [id number] 06/07/2020 04:20:00 PM EST [place] ([facility]) Name Value Range Interpretation Code Description Data Alysa rce(s) Supporting Document(s) salicylate level < 1.7 5.0-30.0 Below low normal Salicylate Le jacques [place] ([facility]) ID Date Data Source [id number] 06/07/2020 04:20:00 PM EST [facility]) Name Value Range Interpretation Code Description Data Alysa rce(s) Supporting Document(s) ethyl alcohol (ethanol) < 0.003 0.000-0.010 Ethyl Alcoh ol (Ethanol) [place] ([facility]) ID Date Data Source [id number] 06/07/2020 04:20:00 PM EST [place] ([facility]) Name Value Range Interpretation Code Description Data Alysa rce(s) Supporting Document(s) blood urea nitrogen 10 mg/dL 7-18 Blood Urea Nitro gen [place] ([facility]) creatinine for GFR 0.60 mg/dL 0.55-1.30 Creatinine for GF R [place] ([facility]) glucose, fasting 73 mg/dL 70-100 Glucose, Fasting AT [facility]) chloride level 111 mEq/L 98-107 Above high normal Chloride Level [place] ([facility]) sodium level 140 mEq/L 136-145 Sodium Level [place] ([facility]) glomerular filtration rate > 60.0 >60 Glomerula r Filtration Rate [place] ([facility]) potassium serum 4.3 mEq/L 3.5-5.1 Potassium Serum [facility] ([facility]) calcium level 8.8 mg/dL 8.5-10.1 Calcium Level [place] ( [facility]) carbon dioxide level 22 mEq/L 21-32 Carbon Dioxide Level [place] ([facility]) anion gap 7 mEq/L 8-16 Below low normal Anion Gap [place] ( [facility]) ID Date Data Source [id number] 06/07/2020 04:20:00 PM EST [place] ([facility]) Name Value Range Interpretation Code Description Data Alysa rce(s) Supporting Document(s) AST/SGOT 10 U/L 7-37 AST/SGOT [place] ([facility]) ALT/SGPT 20 U/L 12-78 ALT/SGPT [place] ([facility]) alkaline phosphatase 80 U/L 45-117 Alkaline Phosph atase [place] ([facility]) bilirubin,total 0.4 mg/dL 0.2-1.0 Bilirubin,total [facility] [place] ([facility]) albumin 4.1 gm/dL 3.2-5.2 Albumin [place] ([facility]) total protein 7.6 gm/dL 6.4-8.2 Total Protein [place] ( [facility]) bilirubin,direct 0.1 mg/dL 0.0-0.2 Bilirubin,direct AT [place] ([facility]) albumin/globulin ratio 1.2-2.2 Albumin/globu harjit Ratio [facility] ([facility]) ID Date Data Source [id number] 06/07/2020 04:20:00 PM EST [place] ([facility]) Name Value Range Interpretation Code Description Data Alysa rce(s) Supporting Document(s) barbiturates urine negative negative Barbiturates Urin e [facility] ([facility]) benzodiazepines urine negative negative Benzodiazepine s Urine [facility] ([facility]) amphetamines level urine negative negative Amphetamine s Level Urine [facility] ([facility]) cocaine metabolite urine negative negative Cocaine Met abolite Urine [facility] ([facility]) cannabinoids urine negative negative Cannabinoids Urin e [facility] ([facility]) methadone urine negative negative Methadone Urine AT[place] NA ([facility]) phencyclidine urine negative negative Phencyclidine Ur ine [facility] ([facility]) opiates urine negative negative Opiates Urine [facility] ( [facility]) ID Date Data Source [id number] 06/07/2020 04:20:00 PM EST [place] ([facility]) Name Value Range Interpretation Code Description Data Alysa rce(s) Supporting Document(s) red blood count 4.18 10 4.00-5.40 Red Blood Count AT[place] NA ([facility]) white blood count 6.7 10 4.0-10.0 White Blood Count [facility] ([facility]) hematocrit 39.6 % 36.0-47.0 Hematocrit [facility] ([facility]) hemoglobin 12.9 g/dL 12.0-15.5 Hemoglobin [facility] ([facility]) mean corpuscular volume 94.7 fL 80.0-96.0 Mean Corpusc ular Volume [facility] ([facility]) mean corpuscular HGB conc 32.6 g/dL 32.0-36.5 Mean Corpu scular HGB Conc [facility] ([facility]) red cell distribution width 12.3 % 11.5-14.5 Red Cell Distribution Width [facility] ([facility]) mean corpuscular hemoglobin 30.9 pg 27.0-33.0 Mean Cor puscular Hemoglobin [facility] ([facility]) nucleated red blood cell % 0.0 % 0-0 Nucleated Red Blood Cell % [facility] ([facility]) platelet count, automated 274 10 150-450 Platelet C ount, Automated [place] ([facility]) ID Date Data Source [id number] 06/07/2020 04:20:00 PM EST [place] ([facility]) Name Value Range Interpretation Code Description Data Alysa rce(s) Supporting Document(s) HCG, serum qualitative negative negative HCG, Serum Qu alitative [facility] ([facility]) ID Date Data Source [id number] 06/07/2020 04:20:00 PM EST [place] ([facility]) Name Value Range Interpretation Code Description Data Alysa rce(s) Supporting Document(s) thyroid stimulating hormone 1.150 uIU/mL 0.358-3.740 Thyroid Stimulating Hormone [facility]) ID Date Data Source [id number] 06/07/2020 04:20:00 PM EST [place] ([facility]) Name Value Range Interpretation Code Description Data Alysa rce(s) Supporting Document(s) acetaminophen level < 2.0 10.0-30.0 Below low normal Acetaminop hen Level [facility]) ID Date Data Source [id number] 06/07/2020 04:20:00 PM EST [facility]) Name Value Range Interpretation Code Description Data Alysa rce(s) Supporting Document(s) salicylate level < 1.7 5.0-30.0 Below low normal Salicylate Le jacques [place] ([facility]) ID Date Data Source [id number] 06/07/2020 04:20:00 PM EST [place] ([facility]) Name Value Range Interpretation Code Description Data Alysa rce(s) Supporting Document(s) ethyl alcohol (ethanol) < 0.003 0.000-0.010 Ethyl Alcoh ol (Ethanol) [place] ([facility]) ID Date Data Source [id number] 06/07/2020 04:20:00 PM EST [place] ([facility]) Name Value Range Interpretation Code Description Data Alysa rce(s) Supporting Document(s) creatinine for GFR 0.60 mg/dL 0.55-1.30 Creatinine for GF R [facility]) glucose, fasting 73 mg/dL 70-100 Glucose, Fasting AT [facility]) glomerular filtration rate > 60.0 >60 Glomer[place] r Filtration Rate [place] ([facility]) blood urea nitrogen 10 mg/dL 7-18 Blood Urea Nitro gen [facility] ([facility]) sodium level 140 mEq/L 136-145 Sodium Level [facility] (No [facility]) potassium serum 4.3 mEq/L 3.5-5.1 Potassium Serum A[place] NA ([facility]) chloride level 111 mEq/L 98-107 Above high normal Chloride Level [place] ([facility]) carbon dioxide level 22 mEq/L 21-32 Carbon Dioxide Level [place] ([facility]) calcium level 8.8 mg/dL 8.5-10.1 Calcium Level [facility]) anion gap 7 mEq/L 8-16 Below low normal Anion Gap [facility]) ID Date Data Source [id number] 06/07/2020 04:20:00 PM EST [facility]) Name Value Range Interpretation Code Description Data Alysa rce(s) Supporting Document(s) AST/SGOT 10 U/L 7-37 AST/SGOT [place] ([facility]) bilirubin,total 0.4 mg/dL 0.2-1.0 Bilirubin,total [place] ([facility]) alkaline phosphatase 80 U/L 45-117 Alkaline Phosph atase [place] ([facility]) ALT/SGPT 20 U/L 12-78 ALT/SGPT [place] ([facility]) bilirubin,direct 0.1 mg/dL 0.0-0.2 Bilirubin,direct AT [place] ([facility]) total protein 7.6 gm/dL 6.4-8.2 Total Protein [place] ( [facility]) albumin 4.1 gm/dL 3.2-5.2 Albumin [facility] ([facility]) albumin/globulin ratio 1.2-2.2 Albumin/globu harjit Ratio [facility] ([facility]) ID Date Data Source [id number] 06/07/2020 04:20:00 PM EST [place] ([facility]) Name Value Range Interpretation Code Description Data Alysa rce(s) Supporting Document(s) amphetamines level urine negative negative Amphetamine s Level Urine [place] ([facility]) benzodiazepines urine negative negative Benzodiazepine s Urine [place] ([facility]) cannabinoids urine negative negative Cannabinoids Urin e [facility] ([facility]) barbiturates urine negative negative Barbiturates Urin e [place] ([facility]) methadone urine negative negative Methadone Urine [facility] ([facility]) cocaine metabolite urine negative negative Cocaine Met abolite Urine [place] ([facility]) opiates urine negative negative Opiates Urine [facility] ( [facility]) phencyclidine urine negative negative Phencyclidine Ur ine [place] ([facility]) ID Date Data Source [id number] 06/07/2020 04:20:00 PM EST [place] ([facility]) Name Value Range Interpretation Code Description Data Alysa rce(s) Supporting Document(s) white blood count 6.7 10 4.0-10.0 White Blood Count [place] ([facility]) red blood count 4.18 10 4.00-5.40 Red Blood Count [facility] ([facility]) hemoglobin 12.9 g/dL 12.0-15.5 Hemoglobin [facility] ([facility]) mean corpuscular volume 94.7 fL 80.0-96.0 Mean Corpusc ular Volume [facility] ([facility]) hematocrit 39.6 % 36.0-47.0 Hematocrit [place] ([facility]) red cell distribution width 12.3 % 11.5-14.5 Red Cell Distribution Width [place] ([facility]) mean corpuscular hemoglobin 30.9 pg 27.0-33.0 Mean Cor puscular Hemoglobin [place] ([facility]) mean corpuscular HGB conc 32.6 g/dL 32.0-36.5 Mean Corpu scular HGB Conc [place] ([facility]) platelet count, automated 274 10 150-450 Platelet C ount, Automated [place] ([facility]) nucleated red blood cell % 0.0 % 0-0 Nucleated Red Blood Cell % [place] ([facility]) ID Date Data Source [id number] 06/07/2020 12:00:00 PM EST [facility] ([facility] [employer]) Name Value Range Interpretation Code Description Data [facility] rce(s) Supporting Document(s) TP Reflex HPV ASCUS Laboratory test result [facility] ([facility] [employer]) TP Reflex HPV ASCUS Laboratory test result [facility] ([facility] [employer]) SPECIMEN PART------ A. Cervical, Endocervical, ThinPrep Pap (Distance Education Coordinator) CYTOLOGY HX-------- Date of Last Menstrual Period: 05/19/20 Other Information: IntraUterine Device FINAL DIAGNOSIS---- INTERPRETATION: Negative for Intraepithelial Lesion or Malignancy. SPECIMEN ADEQUACY:Satisfactory for evaluation. Endocervical/transformation zone component present. ID Date Data Source [id number] 03/30/2020 02:00:00 PM EST [place] ([facility]) Name Value Range Interpretation Code Description Data Alysa rce(s) Supporting Document(s) prolactin 4.4 NG/mL Prolactin [place] ([facility]) ID Date Data Source [id number] 03/30/2020 02:00:00 PM EST [place] ([facility]) Name Value Range Interpretation Code Description Data Alysa rce(s) Supporting Document(s) thyroid stimulating hormone 0.833 uIU/mL 0.358-3.740 Thyroid Stimulating Hormone [facility]) ID Date Data Source [id number] 03/30/2020 02:00:00 PM EST [facility]) Name Value Range Interpretation Code Description Data Alysa rce(s) Supporting Document(s) glucose, fasting 86 mg/dL 70-100 Glucose, Fasting AT [facility]) creatinine for GFR 0.73 mg/dL 0.55-1.30 Creatinine for GF R [facility]) sodium level 140 mEq/L 136-145 Sodium Level [place] (No [facility]) glomerular filtration rate > 60.0 >60 Glomerula r Filtration Rate [place] ([facility]) blood urea nitrogen 11 mg/dL 7-18 Blood Urea Nitro gen [place] ([facility]) potassium serum 4.4 mEq/L 3.5-5.1 Potassium Serum ATH NA [facility]) anion gap 4 mEq/L 8-16 Below low normal Anion Gap [place] ( [facility]) carbon dioxide level 29 mEq/L 21-32 Carbon Dioxide Level [place] ([facility]) chloride level 107 mEq/L 98-107 Chloride Level [place] ([facility]) AST/SGOT 10 U/L 7-37 AST/SGOT [place] ([facility]) alkaline phosphatase 89 U/L 45-117 Alkaline Phosph atase [place] ([facility]) ALT/SGPT 17 U/L 12-78 ALT/SGPT [place] ([facility]) calcium level 10.0 mg/dL 8.5-10.1 Calcium Level [place] ( [facility]) albumin 4.1 gm/dL 3.2-5.2 Albumin [facility] ([facility]) total protein 7.8 gm/dL 6.4-8.2 Total Protein [facility] ( [facility]) albumin/globulin ratio 1.2-2.2 Below low normal Albumin /globulin Ratio [facility] ([facility]) bilirubin,total 0.5 mg/dL 0.2-1.0 Bilirubin,total [facility] ([facility]) ID Date Data Source [id number] 03/30/2020 02:00:00 PM EST [place] ([facility]) Name Value Range Interpretation Code Description Data Alysa rce(s) Supporting Document(s) white blood count 5.7 10 4.0-10.0 White Blood Count [place] ([facility]) red blood count 4.34 10 4.00-5.40 Red Blood Count [place] ([facility]) hematocrit 41.8 % 36.0-47.0 Hematocrit [place] ([facility]) hemoglobin 13.7 g/dL 12.0-15.5 Hemoglobin [facility] ([facility]) mean corpuscular volume 96.3 fL 80.0-96.0 Above high normal Mean Corpuscular Volume [facility] ([facility]) red cell distribution width 11.7 % 11.5-14.5 Red Cell Distribution Width [facility] ([facility]) mean corpuscular hemoglobin 31.6 pg 27.0-33.0 Mean Cor puscular Hemoglobin [place] ([facility]) mean corpuscular HGB conc 32.8 g/dL 32.0-36.5 Mean Corpu scular HGB Conc [facility] ([facility]) platelet count, automated 283 10 150-450 Platelet C ount, Automated [place] ([facility]) neutrophils % 53.5 % 36.0-66.0 Neutrophils % [facility] ( [facility]) lymph % 35.7 % 24.0-44.0 Lymph % [facility] ([facility]) baso % 1.0 % 0.0-1.0 Baso % [facility] ([facility]) mono % 8.9 % 0.0-5.0 Above high normal [place] % [facility] ([facility]) eos % 0.9 % 0.0-3.0 Eos % [facility] ([facility]) immature granulocyte % 0.0 % 0-3.0 Immature Gran ulocyte % [facility] ([facility]) neutrophils # 3.1 10 1.5-8.5 Neutrophils # [facility] ( [facility]) lymph # 2.0 10 1.5-5.0 Lymph # [facility] ([facility]) nucleated red blood cell % 0.0 % 0-0 Nucleated Red Blood Cell % [facility] ([facility]) mono # 0.5 10 0.0-0.8 [place] # [facility] ([facility]) baso # 0.1 10 0.0-0.2 Baso # [facility] ([facility]) eos # 0.1 10 0.0-0.5 Eos # [facility] ([facility]) ID Date Data Source [id number] 03/30/2020 02:00:00 PM EST [place] ([facility]) Name Value Range Interpretation Code Description Data Alysa rce(s) Supporting Document(s) prolactin 4.4 NG/mL Prolactin [facility] ([facility]) ID Date Data Source [id number] 03/30/2020 02:00:00 PM EST [place] ([facility]) Name Value Range Interpretation Code Description Data Alysa rce(s) Supporting Document(s) thyroid stimulating hormone 0.833 uIU/mL 0.358-3.740 Thyroid Stimulating Hormone [place] ([facility]) ID Date Data Source [id number] 03/30/2020 02:00:00 PM EST [place] ([facility]) Name Value Range Interpretation Code Description Data Alysa rce(s) Supporting Document(s) glucose, fasting 86 mg/dL 70-100 Glucose, Fasting AT [facility] ([facility]) blood urea nitrogen 11 mg/dL 7-18 Blood Urea Nitro gen [place] ([facility]) sodium level 140 mEq/L 136-145 Sodium Level [facility] (No [facility]) glomerular filtration rate > 60.0 >60 Glomerula r Filtration Rate [facility] ([facility]) creatinine for GFR 0.73 mg/dL 0.55-1.30 Creatinine for GF R [place] ([facility]) potassium serum 4.4 mEq/L 3.5-5.1 Potassium Serum [facility] ([facility]) anion gap 4 mEq/L 8-16 Below low normal Anion Gap [place] ( [facility]) carbon dioxide level 29 mEq/L 21-32 Carbon Dioxide Level [facility] ([facility]) chloride level 107 mEq/L 98-107 Chloride Level [facility] ([facility]) calcium level 10.0 mg/dL 8.5-10.1 Calcium Level [place] ( [facility]) AST/SGOT 10 U/L 7-37 AST/SGOT [place] ([facility]) alkaline phosphatase 89 U/L 45-117 Alkaline Phosph atase [facility] ([facility]) bilirubin,total 0.5 mg/dL 0.2-1.0 Bilirubin,total [facility] NA ([facility]) ALT/SGPT 17 U/L 12-78 ALT/SGPT [place] ([facility]) albumin 4.1 gm/dL 3.2-5.2 Albumin [facility] ([facility]) albumin/globulin ratio 1.2-2.2 Below low normal Albumin /globulin Ratio [facility] ([facility]) total protein 7.8 gm/dL 6.4-8.2 Total Protein [facility] ( [facility]) ID Date Data Source [id number] 03/30/2020 02:00:00 PM EST [place] ([facility]) Name Value Range Interpretation Code Description Data Alysa rce(s) Supporting Document(s) white blood count 5.7 10 4.0-10.0 White Blood Count [place] ([facility]) hemoglobin 13.7 g/dL 12.0-15.5 Hemoglobin [facility] ([facility]) mean corpuscular volume 96.3 fL 80.0-96.0 Above high normal Mean Corpuscular Volume [facility] ([facility]) hematocrit 41.8 % 36.0-47.0 Hematocrit [facility] ([facility]) red blood count 4.34 10 4.00-5.40 Red Blood Count [facility] ([facility]) red cell distribution width 11.7 % 11.5-14.5 Red Cell Distribution Width [facility] ([facility]) mean corpuscular HGB conc 32.8 g/dL 32.0-36.5 Mean Corpu scular HGB Conc [facility] ([facility]) mean corpuscular hemoglobin 31.6 pg 27.0-33.0 Mean Cor puscular Hemoglobin [facility] ([facility]) lymph % 35.7 % 24.0-44.0 Lymph % [facility] ([facility]) neutrophils % 53.5 % 36.0-66.0 Neutrophils % [place] ( [facility]) platelet count, automated 283 10 150-450 Platelet C ount, Automated [place] ([facility]) baso % 1.0 % 0.0-1.0 Baso % [facility] ([facility]) mono % 8.9 % 0.0-5.0 Above high normal [place] % [facility] ([facility]) eos % 0.9 % 0.0-3.0 Eos % [facility] ([facility]) immature granulocyte % 0.0 % 0-3.0 Immature Gran ulocyte % [facility] ([facility]) lymph # 2.0 10 1.5-5.0 Lymph # [facility] ([facility]) neutrophils # 3.1 10 1.5-8.5 Neutrophils # [facility] ( [facility]) nucleated red blood cell % 0.0 % 0-0 Nucleated Red Blood Cell % [facility] ([facility]) baso # 0.1 10 0.0-0.2 Baso # [facility] ([facility]) mono # 0.5 10 0.0-0.8 [place] # N[facility]EN ([facility]) eos # 0.1 10 0.0-0.5 Eos # [facility] ([facility]) ID Date Data Source [id number] 03/30/2020 02:00:00 PM EST [place] ([facility]) Name Value Range Interpretation Code Description Data Alysa rce(s) Supporting Document(s) prolactin 4.4 NG/mL Prolactin [facility] ([facility]) ID Date Data Source [id number] 03/30/2020 02:00:00 PM EST [place] ([facility]) Name Value Range Interpretation Code Description Data Alysa rce(s) Supporting Document(s) thyroid stimulating hormone 0.833 uIU/mL 0.358-3.740 Thyroid Stimulating Hormone [place] ([facility]) ID Date Data Source [id number] 03/30/2020 02:00:00 PM EST [place] ([facility]) Name Value Range Interpretation Code Description Data Alysa rce(s) Supporting Document(s) glucose, fasting 86 mg/dL 70-100 Glucose, Fasting AT [place] ([facility]) blood urea nitrogen 11 mg/dL 7-18 Blood Urea Nitro gen [facility] ([facility]) creatinine for GFR 0.73 mg/dL 0.55-1.30 Creatinine for GF R [facility] ([facility]) sodium level 140 mEq/L 136-145 Sodium Level [facility] (No [facility]) potassium serum 4.4 mEq/L 3.5-5.1 Potassium Serum AT[facility] NA ([facility]) glomerular filtration rate > 60.0 >60 Glomerula r Filtration Rate [facility] ([facility]) chloride level 107 mEq/L 98-107 Chloride Level [facility] ([facility]) carbon dioxide level 29 mEq/L 21-32 Carbon Dioxide Level [facility] ([facility]) anion gap 4 mEq/L 8-16 Below low normal Anion Gap [facility] ( [facility]) AST/SGOT 10 U/L 7-37 AST/SGOT [facility] ([facility]) calcium level 10.0 mg/dL 8.5-10.1 Calcium Level [facility] ( [facility]) ALT/SGPT 17 U/L 12-78 ALT/SGPT [facility] ([facility]) alkaline phosphatase 89 U/L 45-117 Alkaline Phosph atase [facility] ([facility]) bilirubin,total 0.5 mg/dL 0.2-1.0 Bilirubin,total [facility] ([facility]) total protein 7.8 gm/dL 6.4-8.2 Total Protein [facility] ( [facility]) albumin/globulin ratio 1.2-2.2 Below low normal Albumin /globulin Ratio [facility] ([facility]) albumin 4.1 gm/dL 3.2-5.2 Albumin [facility] ([facility]) ID Date Data Source [id number] 03/30/2020 02:00:00 PM EST [place] ([facility]) Name Value Range Interpretation Code Description Data Alysa rce(s) Supporting Document(s) white blood count 5.7 10 4.0-10.0 White Blood Count [facility] ([facility]) red blood count 4.34 10 4.00-5.40 Red Blood Count [facility] NA ([facility]) hemoglobin 13.7 g/dL 12.0-15.5 Hemoglobin [facility] ([facility]) mean corpuscular volume 96.3 fL 80.0-96.0 Above high normal Mean Corpuscular Volume [facility] ([facility]) hematocrit 41.8 % 36.0-47.0 Hematocrit [facility] ([facility]) mean corpuscular hemoglobin 31.6 pg 27.0-33.0 Mean Cor puscular Hemoglobin [facility] ([facility]) platelet count, automated 283 10 150-450 Platelet C ount, Automated [place] ([facility]) mean corpuscular HGB conc 32.8 g/dL 32.0-36.5 Mean Corpu scular HGB Conc [facility] ([facility]) red cell distribution width 11.7 % 11.5-14.5 Red Cell Distribution Width [facility] ([facility]) neutrophils % 53.5 % 36.0-66.0 Neutrophils % [facility] ( [facility]) lymph % 35.7 % 24.0-44.0 Lymph % N[facility]EN ([facility]) mono % 8.9 % 0.0-5.0 Above high normal [place] % [place] ([facility]) eos % 0.9 % 0.0-3.0 Eos % [place] ([facility]) baso % 1.0 % 0.0-1.0 Baso % [place] ([facility]) nucleated red blood cell % 0.0 % 0-0 Nucleated Red Blood Cell % [place] ([facility]) immature granulocyte % 0.0 % 0-3.0 Immature Gran ulocyte % [place] ([facility]) neutrophils # 3.1 10 1.5-8.5 Neutrophils # [place] ( [facility]) eos # 0.1 10 0.0-0.5 Eos # [place] ([facility]) mono # 0.5 10 0.0-0.8 [place] # [place] ([facility]) lymph # 2.0 10 1.5-5.0 Lymph # [place] ([facility]) baso # 0.1 10 0.0-0.2 Baso # [place] ([facility]) ID Date Data Source [id number] 03/30/2020 02:00:00 PM EST [place] ([facility]) Name Value Range Interpretation Code Description Data Alysa rce(s) Supporting Document(s) prolactin 4.4 NG/mL Prolactin [place] ([facility]) ID Date Data Source [id number] 03/30/2020 02:00:00 PM EST [place] ([facility]) Name Value Range Interpretation Code Description Data Alysa rce(s) Supporting Document(s) thyroid stimulating hormone 0.833 uIU/mL 0.358-3.740 Thyroid Stimulating Hormone [place] ([facility]) ID Date Data Source [id number] 03/30/2020 02:00:00 PM EST [place] ([facility]) Name Value Range Interpretation Code Description Data Alysa rce(s) Supporting Document(s) creatinine for GFR 0.73 mg/dL 0.55-1.30 Creatinine for GF R [place] ([facility]) blood urea nitrogen 11 mg/dL 7-18 Blood Urea Nitro gen [place] ([facility]) glomerular filtration rate > 60.0 >60 [place] r Filtration Rate [place] ([facility]) glucose, fasting 86 mg/dL 70-100 Glucose, Fasting AT [facility]) chloride level 107 mEq/L 98-107 Chloride Level [place] ([facility]) carbon dioxide level 29 mEq/L 21-32 Carbon Dioxide Level [place] ([facility]) sodium level 140 mEq/L 136-145 Sodium Level [place] ([facility]) potassium serum 4.4 mEq/L 3.5-5.1 Potassium Serum [place] ([facility]) anion gap 4 mEq/L 8-16 Below low normal Anion Gap [place] ( [facility]) calcium level 10.0 mg/dL 8.5-10.1 Calcium Level [place] ( [facility]) alkaline phosphatase 89 U/L 45-117 Alkaline Phosph atase [place] ([facility]) AST/SGOT 10 U/L 7-37 AST/SGOT [place] ([facility]) ALT/SGPT 17 U/L 12-78 ALT/SGPT [place] ([facility]) albumin 4.1 gm/dL 3.2-5.2 Albumin [place] ([facility]) total protein 7.8 gm/dL 6.4-8.2 Total Protein [place] ( [facility]) bilirubin,total 0.5 mg/dL 0.2-1.0 Bilirubin,total [place] ([facility]) albumin/globulin ratio 1.2-2.2 Below low normal Albumin /globulin Ratio [place] ([facility]) ID Date Data Source [id number] 03/30/2020 02:00:00 PM EST [place] ([facility]) Name Value Range Interpretation Code Description Data Alysa rce(s) Supporting Document(s) white blood count 5.7 10 4.0-10.0 White Blood Count [place] ([facility]) hematocrit 41.8 % 36.0-47.0 Hematocrit [place] ([facility]) hemoglobin 13.7 g/dL 12.0-15.5 Hemoglobin [place] ([facility]) red blood count 4.34 10 4.00-5.40 Red Blood Count [place] ([facility]) mean corpuscular volume 96.3 fL 80.0-96.0 Above high normal Mean Corpuscular Volume [place] ([facility]) mean corpuscular hemoglobin 31.6 pg 27.0-33.0 Mean Cor puscular Hemoglobin [place] ([facility]) red cell distribution width 11.7 % 11.5-14.5 Red Cell Distribution Width [place] ([facility]) neutrophils % 53.5 % 36.0-66.0 Neutrophils % [place] ( [facility]) mean corpuscular HGB conc 32.8 g/dL 32.0-36.5 Mean Corpu scular HGB Conc [place] ([facility]) platelet count, automated 283 10 150-450 Platelet C ount, Automated [place] ([facility]) mono % 8.9 % 0.0-5.0 Above high normal [place] % [place] ([facility]) lymph % 35.7 % 24.0-44.0 Lymph % [place] ([facility]) eos % 0.9 % 0.0-3.0 Eos % [place] ([facility]) immature granulocyte % 0.0 % 0-3.0 Immature Gran ulocyte % [place] ([facility]) baso % 1.0 % 0.0-1.0 Baso % [place] ([facility]) lymph # 2.0 10 1.5-5.0 Lymph # [place] ([facility]) neutrophils # 3.1 10 1.5-8.5 Neutrophils # [place] ( [facility]) nucleated red blood cell % 0.0 % 0-0 Nucleated Red Blood Cell % [place] ([facility]) baso # 0.1 10 0.0-0.2 Baso # [place] ([facility]) eos # 0.1 10 0.0-0.5 Eos # [place] ([facility]) mono # 0.5 10 0.0-0.8 [place] # [place] ([facility]) ID Date Data Source [id number] 03/30/2020 02:00:00 PM EST [place] ([facility]) Name Value Range Interpretation Code Description Data Alysa rce(s) Supporting Document(s) prolactin 4.4 NG/mL Prolactin [place] ([facility]) ID Date Data Source [id number] 03/30/2020 02:00:00 PM EST [place] ([facility]) Name Value Range Interpretation Code Description Data Alysa rce(s) Supporting Document(s) thyroid stimulating hormone 0.833 uIU/mL 0.358-3.740 Thyroid Stimulating Hormone [place] ([facility]) ID Date Data Source [id number] 03/30/2020 02:00:00 PM EST [place] ([facility]) Name Value Range Interpretation Code Description Data Alysa rce(s) Supporting Document(s) glucose, fasting 86 mg/dL 70-100 Glucose, Fasting AT [facility] ([facility]) glomerular filtration rate > 60.0 >60 Glomerula r Filtration Rate [place] ([facility]) blood urea nitrogen 11 mg/dL 7-18 Blood Urea Nitro gen [place] ([facility]) sodium level 140 mEq/L 136-145 Sodium Level [place] ([facility]) creatinine for GFR 0.73 mg/dL 0.55-1.30 Creatinine for GF R [place] ([facility]) calcium level 10.0 mg/dL 8.5-10.1 Calcium Level [place] ( [facility]) carbon dioxide level 29 mEq/L 21-32 Carbon Dioxide Level [place] ([facility]) potassium serum 4.4 mEq/L 3.5-5.1 Potassium Serum [place] ([facility]) chloride level 107 mEq/L 98-107 Chloride Level [place] ([facility]) anion gap 4 mEq/L 8-16 Below low normal Anion Gap [place] ( [facility]) alkaline phosphatase 89 U/L 45-117 Alkaline Phosph atase [place] ([facility]) bilirubin,total 0.5 mg/dL 0.2-1.0 Bilirubin,total [place] ([facility]) ALT/SGPT 17 U/L 12-78 ALT/SGPT [place] ([facility]) AST/SGOT 10 U/L 7-37 AST/SGOT [place] ([facility]) albumin 4.1 gm/dL 3.2-5.2 Albumin [place] ([facility]) albumin/globulin ratio 1.2-2.2 Below low normal Albumin /globulin Ratio [place] ([facility]) total protein 7.8 gm/dL 6.4-8.2 Total Protein [place] ( [facility]) ID Date Data Source [id number] 03/30/2020 02:00:00 PM EST [place] ([facility]) Name Value Range Interpretation Code Description Data Alysa rce(s) Supporting Document(s) hemoglobin 13.7 g/dL 12.0-15.5 Hemoglobin [place] ([facility]) white blood count 5.7 10 4.0-10.0 White Blood Count [place] ([facility]) red blood count 4.34 10 4.00-5.40 Red Blood Count [place] ([facility]) mean corpuscular volume 96.3 fL 80.0-96.0 Above high normal Mean Corpuscular Volume [place] ([facility]) hematocrit 41.8 % 36.0-47.0 Hematocrit [place] ([facility]) mean corpuscular hemoglobin 31.6 pg 27.0-33.0 Mean Cor puscular Hemoglobin [place] ([facility]) mean corpuscular HGB conc 32.8 g/dL 32.0-36.5 Mean Corpu scular HGB Conc [place] ([facility]) platelet count, automated 283 10 150-450 Platelet C ount, Automated [place] ([facility]) neutrophils % 53.5 % 36.0-66.0 Neutrophils % [place] ( [facility]) red cell distribution width 11.7 % 11.5-14.5 Red Cell Distribution Width [place] ([facility]) lymph % 35.7 % 24.0-44.0 Lymph % [place] ([facility]) eos % 0.9 % 0.0-3.0 Eos % [place] ([facility]) baso % 1.0 % 0.0-1.0 Baso % [place] ([facility]) immature granulocyte % 0.0 % 0-3.0 Immature Gran ulocyte % [place] ([facility]) mono % 8.9 % 0.0-5.0 Above high normal [place] % [place] ([facility]) neutrophils # 3.1 10 1.5-8.5 Neutrophils # [place] ( [facility]) nucleated red blood cell % 0.0 % 0-0 Nucleated Red Blood Cell % [place] ([facility]) lymph # 2.0 10 1.5-5.0 Lymph # [place] ([facility]) mono # 0.5 10 0.0-0.8 [place] # [place] ([facility]) baso # 0.1 10 0.0-0.2 Baso # [place] ([facility]) eos # 0.1 10 0.0-0.5 Eos # [place] ([facility]) ID Date Data Source [id number] 03/30/2020 02:00:00 PM EST [place] ([facility]) Name Value Range Interpretation Code Description Data Alysa rce(s) Supporting Document(s) prolactin 4.4 NG/mL Prolactin [place] ([facility]) ID Date Data Source [id number] 03/30/2020 02:00:00 PM EST [place] ([facility]) Name Value Range Interpretation Code Description Data Alysa rce(s) Supporting Document(s) thyroid stimulating hormone 0.833 uIU/mL 0.358-3.740 Thyroid Stimulating Hormone [place] ([facility]) ID Date Data Source [id number] 03/30/2020 02:00:00 PM EST [place] ([facility]) Name Value Range Interpretation Code Description Data Alysa rce(s) Supporting Document(s) glomerular filtration rate > 60.0 >60 Glomer[place] r Filtration Rate [place] ([facility]) blood urea nitrogen 11 mg/dL 7-18 Blood Urea Nitro gen [place] ([facility]) creatinine for GFR 0.73 mg/dL 0.55-1.30 Creatinine for GF R [place] ([facility]) glucose, fasting 86 mg/dL 70-100 Glucose, Fasting AT [facility]) chloride level 107 mEq/L 98-107 Chloride Level [place] ([facility]) carbon dioxide level 29 mEq/L 21-32 Carbon Dioxide Level [place] ([facility]) potassium serum 4.4 mEq/L 3.5-5.1 Potassium Serum [place] ([facility]) anion gap 4 mEq/L 8-16 Below low normal Anion Gap [place] ( [facility]) sodium level 140 mEq/L 136-145 Sodium Level [place] ([facility]) calcium level 10.0 mg/dL 8.5-10.1 Calcium Level [place] ( [facility]) AST/SGOT 10 U/L 7-37 AST/SGOT [place] ([facility]) alkaline phosphatase 89 U/L 45-117 Alkaline Phosph atase [place] ([facility]) ALT/SGPT 17 U/L 12-78 ALT/SGPT [place] ([facility]) albumin 4.1 gm/dL 3.2-5.2 Albumin [place] ([facility]) bilirubin,total 0.5 mg/dL 0.2-1.0 Bilirubin,total [place] ([facility]) albumin/globulin ratio 1.2-2.2 Below low normal Albumin /globulin Ratio [place] ([facility]) total protein 7.8 gm/dL 6.4-8.2 Total Protein [place] ( [facility]) ID Date Data Source [id number] 03/30/2020 02:00:00 PM EST [place] ([facility]) Name Value Range Interpretation Code Description Data Alysa rce(s) Supporting Document(s) hemoglobin 13.7 g/dL 12.0-15.5 Hemoglobin [place] ([facility]) white blood count 5.7 10 4.0-10.0 White Blood Count [place] ([facility]) red blood count 4.34 10 4.00-5.40 Red Blood Count [place] ([facility]) hematocrit 41.8 % 36.0-47.0 Hematocrit [place] ([facility]) mean corpuscular HGB conc 32.8 g/dL 32.0-36.5 Mean Corpu scular HGB Conc [place] ([facility]) mean corpuscular volume 96.3 fL 80.0-96.0 Above high normal Mean Corpuscular Volume [place] ([facility]) mean corpuscular hemoglobin 31.6 pg 27.0-33.0 Mean Cor puscular Hemoglobin [place] ([facility]) neutrophils % 53.5 % 36.0-66.0 Neutrophils % [place] ( [facility]) platelet count, automated 283 10 150-450 Platelet C ount, Automated [place] ([facility]) red cell distribution width 11.7 % 11.5-14.5 Red Cell Distribution Width [place] ([facility]) mono % 8.9 % 0.0-5.0 Above high normal [place] % [place] ([facility]) baso % 1.0 % 0.0-1.0 Baso % [place] ([facility]) lymph % 35.7 % 24.0-44.0 Lymph % [place] ([facility]) eos % 0.9 % 0.0-3.0 Eos % [place] ([facility]) immature granulocyte % 0.0 % 0-3.0 Immature Gran ulocyte % [place] ([facility]) neutrophils # 3.1 10 1.5-8.5 Neutrophils # [place] ( [facility]) nucleated red blood cell % 0.0 % 0-0 Nucleated Red Blood Cell % [place] ([facility]) lymph # 2.0 10 1.5-5.0 Lymph # [place] ([facility]) eos # 0.1 10 0.0-0.5 Eos # [place] ([facility]) baso # 0.1 10 0.0-0.2 Baso # [place] ([facility]) mono # 0.5 10 0.0-0.8 [place] # [place] ([facility]) ID Date Data Source [id number] 03/30/2020 02:00:00 PM EST [place] ([facility]) Name Value Range Interpretation Code Description Data Alysa rce(s) Supporting Document(s) prolactin 4.4 NG/mL Prolactin [place] ([facility]) ID Date Data Source [id number] 03/30/2020 02:00:00 PM EST [place] ([facility]) Name Value Range Interpretation Code Description Data Alysa rce(s) Supporting Document(s) thyroid stimulating hormone 0.833 uIU/mL 0.358-3.740 Thyroid Stimulating Hormone [place] ([facility]) ID Date Data Source [id number] 03/30/2020 02:00:00 PM EST [place] ([facility]) Name Value Range Interpretation Code Description Data Alysa rce(s) Supporting Document(s) glomerular filtration rate > 60.0 >60 [place] r Filtration Rate [place] ([facility]) sodium level 140 mEq/L 136-145 Sodium Level [place] ([facility]) glucose, fasting 86 mg/dL 70-100 Glucose, Fasting AT [place] ([facility]) blood urea nitrogen 11 mg/dL 7-18 Blood Urea Nitro gen [place] ([facility]) creatinine for GFR 0.73 mg/dL 0.55-1.30 Creatinine for GF R [place] ([facility]) carbon dioxide level 29 mEq/L 21-32 Carbon Dioxide Level [place] ([facility]) anion gap 4 mEq/L 8-16 Below low normal Anion Gap [place] ( [facility]) potassium serum 4.4 mEq/L 3.5-5.1 Potassium Serum [place] ([facility]) chloride level 107 mEq/L 98-107 Chloride Level [place] ([facility]) ALT/SGPT 17 U/L 12-78 ALT/SGPT [place] ([facility]) alkaline phosphatase 89 U/L 45-117 Alkaline Phosph atase [place] ([facility]) calcium level 10.0 mg/dL 8.5-10.1 Calcium Level [place] ( [facility]) AST/SGOT 10 U/L 7-37 AST/SGOT [place] ([facility]) bilirubin,total 0.5 mg/dL 0.2-1.0 Bilirubin,total [place] ([facility]) albumin/globulin ratio 1.2-2.2 Below low normal Albumin /globulin Ratio [place] ([facility]) total protein 7.8 gm/dL 6.4-8.2 Total Protein [place] ( [facility]) albumin 4.1 gm/dL 3.2-5.2 Albumin [place] ([facility]) ID Date Data Source [id number] 03/30/2020 02:00:00 PM EST [place] ([facility]) Name Value Range Interpretation Code Description Data Alysa rce(s) Supporting Document(s) white blood count 5.7 10 4.0-10.0 White Blood Count [place] ([facility]) hematocrit 41.8 % 36.0-47.0 Hematocrit [place] ([facility]) hemoglobin 13.7 g/dL 12.0-15.5 Hemoglobin [place] ([facility]) red blood count 4.34 10 4.00-5.40 Red Blood Count [place] ([facility]) mean corpuscular HGB conc 32.8 g/dL 32.0-36.5 Mean Corpu scular HGB Conc [place] ([facility]) mean corpuscular hemoglobin 31.6 pg 27.0-33.0 Mean Cor puscular Hemoglobin [place] ([facility]) red cell distribution width 11.7 % 11.5-14.5 Red Cell Distribution Width [place] ([facility]) mean corpuscular volume 96.3 fL 80.0-96.0 Above high normal Mean Corpuscular Volume [place] ([facility]) neutrophils % 53.5 % 36.0-66.0 Neutrophils % [place] ( [facility]) lymph % 35.7 % 24.0-44.0 Lymph % [place] ([facility]) platelet count, automated 283 10 150-450 Platelet C ount, Automated [place] ([facility]) mono % 8.9 % 0.0-5.0 Above high normal [place] % [place] ([facility]) eos % 0.9 % 0.0-3.0 Eos % [place] ([facility]) nucleated red blood cell % 0.0 % 0-0 Nucleated Red Blood Cell % [place] ([facility]) immature granulocyte % 0.0 % 0-3.0 Immature Gran ulocyte % [place] ([facility]) baso % 1.0 % 0.0-1.0 Baso % [place] ([facility]) eos # 0.1 10 0.0-0.5 Eos # [place] ([facility]) mono # 0.5 10 0.0-0.8 [place] # [place] ([facility]) neutrophils # 3.1 10 1.5-8.5 Neutrophils # [place] ( [facility]) lymph # 2.0 10 1.5-5.0 Lymph # [place] ([facility]) baso # 0.1 10 0.0-0.2 Baso # [place] ([facility]) ID Date Data Source [id number] 03/30/2020 02:00:00 PM EST [place] ([facility]) Name Value Range Interpretation Code Description Data Alysa rce(s) Supporting Document(s) thyroid stimulating hormone 0.833 uIU/mL 0.358-3.740 Thyroid Stimulating Hormone [place] ([facility]) ID Date Data Source [id number] 03/30/2020 02:00:00 PM EST [place] ([facility]) Name Value Range Interpretation Code Description Data Alysa rce(s) Supporting Document(s) blood urea nitrogen 11 mg/dL 7-18 Blood Urea Nitro gen [place] ([facility]) glomerular filtration rate > 60.0 >60 Glomerula r Filtration Rate [place] ([facility]) creatinine for GFR 0.73 mg/dL 0.55-1.30 Creatinine for GF R [place] ([facility]) glucose, fasting 86 mg/dL 70-100 Glucose, Fasting AT [facility]) carbon dioxide level 29 mEq/L 21-32 Carbon Dioxide Level [place] ([facility]) chloride level 107 mEq/L 98-107 Chloride Level [place] ([facility]) sodium level 140 mEq/L 136-145 Sodium Level [place] ([facility]) potassium serum 4.4 mEq/L 3.5-5.1 Potassium Serum [place] NA ([facility]) anion gap 4 mEq/L 8-16 Below low normal Anion Gap [place] ( [facility]) alkaline phosphatase 89 U/L 45-117 Alkaline Phosph atase [place] ([facility]) AST/SGOT 10 U/L 7-37 AST/SGOT [place] ([facility]) ALT/SGPT 17 U/L 12-78 ALT/SGPT [place] ([facility]) calcium level 10.0 mg/dL 8.5-10.1 Calcium Level [place] ( [facility]) bilirubin,total 0.5 mg/dL 0.2-1.0 Bilirubin,total [place] ([facility]) albumin 4.1 gm/dL 3.2-5.2 Albumin [place] ([facility]) total protein 7.8 gm/dL 6.4-8.2 Total Protein [place] ( [facility]) albumin/globulin ratio 1.2-2.2 Below low normal Albumin /globulin Ratio [place] ([facility]) ID Date Data Source [id number] 03/30/2020 02:00:00 PM EST [place] ([facility]) Name Value Range Interpretation Code Description Data Alysa rce(s) Supporting Document(s) white blood count 5.7 10 4.0-10.0 White Blood Count [place] ([facility]) hematocrit 41.8 % 36.0-47.0 Hematocrit [place] ([facility]) hemoglobin 13.7 g/dL 12.0-15.5 Hemoglobin [place] ([facility]) mean corpuscular volume 96.3 fL 80.0-96.0 Above high normal Mean Corpuscular Volume [place] ([facility]) red blood count 4.34 10 4.00-5.40 Red Blood Count [place] NA ([facility]) platelet count, automated 283 10 150-450 Platelet C ount, Automated [place] ([facility]) red cell distribution width 11.7 % 11.5-14.5 Red Cell Distribution Width [facility] ([facility]) mean corpuscular hemoglobin 31.6 pg 27.0-33.0 Mean Cor puscular Hemoglobin [facility] ([facility]) mean corpuscular HGB conc 32.8 g/dL 32.0-36.5 Mean Corpu scular HGB Conc [facility] ([facility]) neutrophils % 53.5 % 36.0-66.0 Neutrophils % [facility] ( [facility]) mono % 8.9 % 0.0-5.0 Above high normal [place] % NAVEEN ([facility]) eos % 0.9 % 0.0-3.0 Eos % [facility] ([facility]) lymph % 35.7 % 24.0-44.0 Lymph % [facility] ([facility]) neutrophils # 3.1 10 1.5-8.5 Neutrophils # [facility] ( [facility]) immature granulocyte % 0.0 % 0-3.0 Immature Gran ulocyte % [facility] ([facility]) nucleated red blood cell % 0.0 % 0-0 Nucleated Red Blood Cell % [facility] ([facility]) baso % 1.0 % 0.0-1.0 Baso % [facility] ([facility]) baso # 0.1 10 0.0-0.2 Baso # [facility] ([facility]) mono # 0.5 10 0.0-0.8 [place] # NAVEEN ([facility]) eos # 0.1 10 0.0-0.5 Eos # [facility] ([facility]) lymph # 2.0 10 1.5-5.0 Lymph # [facility] ([facility]) ID Date Data Source [id number] 03/30/2020 02:00:00 PM EST [place] ([facility]) Name Value Range Interpretation Code Description Data Alysa rce(s) Supporting Document(s) prolactin 4.4 NG/mL Prolactin [facility] ([facility]) ID Date Data Source [id number] 03/30/2020 02:00:00 PM EST [place] ([facility]) Name Value Range Interpretation Code Description Data Alysa rce(s) Supporting Document(s) thyroid stimulating hormone 0.833 uIU/mL 0.358-3.740 Thyroid Stimulating Hormone [facility] ([facility]) ID Date Data Source [id number] 03/30/2020 02:00:00 PM EST [place] ([facility]) Name Value Range Interpretation Code Description Data Alysa rce(s) Supporting Document(s) glomerular filtration rate > 60.0 >60 Glomer[place] r Filtration Rate [facility] ([facility]) glucose, fasting 86 mg/dL 70-100 Glucose, Fasting AT [place] ([facility]) creatinine for GFR 0.73 mg/dL 0.55-1.30 Creatinine for GF R [place] ([facility]) blood urea nitrogen 11 mg/dL 7-18 Blood Urea Nitro gen [facility] ([facility]) carbon dioxide level 29 mEq/L 21-32 Carbon Dioxide Level [facility] ([facility]) chloride level 107 mEq/L 98-107 Chloride Level [place] ([facility]) sodium level 140 mEq/L 136-145 Sodium Level [facility] ([facility]) potassium serum 4.4 mEq/L 3.5-5.1 Potassium Serum [place] ([facility]) anion gap 4 mEq/L 8-16 Below low normal Anion Gap [facility] ( [facility]) ALT/SGPT 17 U/L 12-78 ALT/SGPT [facility] ([facility]) AST/SGOT 10 U/L 7-37 AST/SGOT [place] ([facility]) calcium level 10.0 mg/dL 8.5-10.1 Calcium Level [place] ( [facility]) albumin/globulin ratio 1.2-2.2 Below low normal Albumin /globulin Ratio [facility] ([facility]) total protein 7.8 gm/dL 6.4-8.2 Total Protein [place] ( [facility]) alkaline phosphatase 89 U/L 45-117 Alkaline Phosph atase [facility] ([facility]) bilirubin,total 0.5 mg/dL 0.2-1.0 Bilirubin,total [place] ([facility]) albumin 4.1 gm/dL 3.2-5.2 Albumin [place] ([facility]) ID Date Data Source [id number] 03/30/2020 02:00:00 PM EST [place] ([facility]) Name Value Range Interpretation Code Description Data Alysa rce(s) Supporting Document(s) red blood count 4.34 10 4.00-5.40 Red Blood Count [place] ([facility]) white blood count 5.7 10 4.0-10.0 White Blood Count [place] ([facility]) mean corpuscular hemoglobin 31.6 pg 27.0-33.0 Mean Cor puscular Hemoglobin [facility] ([facility]) hemoglobin 13.7 g/dL 12.0-15.5 Hemoglobin [place] ([facility]) mean corpuscular volume 96.3 fL 80.0-96.0 Above high normal Mean Corpuscular Volume [facility] ([facility]) hematocrit 41.8 % 36.0-47.0 Hematocrit [place] ([facility]) neutrophils % 53.5 % 36.0-66.0 Neutrophils % [place] ( [facility]) red cell distribution width 11.7 % 11.5-14.5 Red Cell Distribution Width [facility] ([facility]) mean corpuscular HGB conc 32.8 g/dL 32.0-36.5 Mean Corpu scular HGB Conc [facility] ([facility]) platelet count, automated 283 10 150-450 Platelet C ount, Automated [place] ([facility]) lymph % 35.7 % 24.0-44.0 Lymph % [facility] ([facility]) mono % 8.9 % 0.0-5.0 Above high normal [place] % [facility] ([facility]) eos % 0.9 % 0.0-3.0 Eos % [facility] ([facility]) baso % 1.0 % 0.0-1.0 Baso % [facility] ([facility]) lymph # 2.0 10 1.5-5.0 Lymph # [place] ([facility]) immature granulocyte % 0.0 % 0-3.0 Immature Gran ulocyte % [facility] ([facility]) nucleated red blood cell % 0.0 % 0-0 Nucleated Red Blood Cell % [facility] ([facility]) neutrophils # 3.1 10 1.5-8.5 Neutrophils # [place] ( [facility]) eos # 0.1 10 0.0-0.5 Eos # [facility] ([facility]) baso # 0.1 10 0.0-0.2 Baso # [facility] ([facility]) mono # 0.5 10 0.0-0.8 [place] # [facility]EN ([facility]) ID Date Data Source [id number] 03/30/2020 02:00:00 PM EST [place] ([facility]) Name Value Range Interpretation Code Description Data Alysa rce(s) Supporting Document(s) prolactin 4.4 NG/mL Prolactin [facility] ([facility]) ID Date Data Source [id number] 03/30/2020 02:00:00 PM EST [place] ([facility]) Name Value Range Interpretation Code Description Data Alysa rce(s) Supporting Document(s) thyroid stimulating hormone 0.833 uIU/mL 0.358-3.740 Thyroid Stimulating Hormone [place] ([facility]) ID Date Data Source [id number] 03/30/2020 02:00:00 PM EST [place] ([facility]) Name Value Range Interpretation Code Description Data Alysa rce(s) Supporting Document(s) glucose, fasting 86 mg/dL 70-100 Glucose, Fasting AT [facility]) glomerular filtration rate > 60.0 >60 [place]omer[place] r Filtration Rate [place] ([facility]) blood urea nitrogen 11 mg/dL 7-18 Blood Urea Nitro gen [place] ([facility]) creatinine for GFR 0.73 mg/dL 0.55-1.30 Creatinine for GF R [place] ([facility]) sodium level 140 mEq/L 136-145 Sodium Level [facility]EN ([facility]) carbon dioxide level 29 mEq/L 21-32 Carbon Dioxide Level [facility] ([facility]) chloride level 107 mEq/L 98-107 Chloride Level [place] ([facility]) potassium serum 4.4 mEq/L 3.5-5.1 Potassium Serum [place] ([facility]) calcium level 10.0 mg/dL 8.5-10.1 Calcium Level [place] ( [facility]) anion gap 4 mEq/L 8-16 Below low normal Anion Gap [facility] ( [facility]) AST/SGOT 10 U/L 7-37 AST/SGOT [facility] ([facility]) ALT/SGPT 17 U/L 12-78 ALT/SGPT [place] ([facility]) bilirubin,total 0.5 mg/dL 0.2-1.0 Bilirubin,total [place] ([facility]) alkaline phosphatase 89 U/L 45-117 Alkaline Phosph atase [facility] ([facility]) total protein 7.8 gm/dL 6.4-8.2 Total Protein [place] ( [facility]) albumin/globulin ratio 1.2-2.2 Below low normal Albumin /globulin Ratio [facility] ([facility]) albumin 4.1 gm/dL 3.2-5.2 Albumin [facility] ([facility]) ID Date Data Source [id number] 03/30/2020 02:00:00 PM EST [place] ([facility]) Name Value Range Interpretation Code Description Data Alysa rce(s) Supporting Document(s) white blood count 5.7 10 4.0-10.0 White Blood Count [place] ([facility]) red blood count 4.34 10 4.00-5.40 Red Blood Count [place] ([facility]) hemoglobin 13.7 g/dL 12.0-15.5 Hemoglobin [place] ([facility]) hematocrit 41.8 % 36.0-47.0 Hematocrit [facility] ([facility]) mean corpuscular volume 96.3 fL 80.0-96.0 Above high normal Mean Corpuscular Volume [facility] ([facility]) mean corpuscular hemoglobin 31.6 pg 27.0-33.0 Mean Cor puscular Hemoglobin [facility] ([facility]) red cell distribution width 11.7 % 11.5-14.5 Red Cell Distribution Width [facility] ([facility]) platelet count, automated 283 10 150-450 Platelet C ount, Automated [place] ([facility]) mean corpuscular HGB conc 32.8 g/dL 32.0-36.5 Mean Corpu scular HGB Conc [facility] ([facility]) lymph % 35.7 % 24.0-44.0 Lymph % [facility] ([facility]) neutrophils % 53.5 % 36.0-66.0 Neutrophils % [facility] ( [facility]) mono % 8.9 % 0.0-5.0 Above high normal [place] % [facility]EN ([facility]) baso % 1.0 % 0.0-1.0 Baso % [place] ([facility]) nucleated red blood cell % 0.0 % 0-0 Nucleated Red Blood Cell % [facility] ([facility]) eos % 0.9 % 0.0-3.0 Eos % [place] ([facility]) immature granulocyte % 0.0 % 0-3.0 Immature Gran ulocyte % [facility] ([facility]) neutrophils # 3.1 10 1.5-8.5 Neutrophils # [facility] ( [facility]) lymph # 2.0 10 1.5-5.0 Lymph # [facility] ([facility]) mono # 0.5 10 0.0-0.8 [place] # NAVEEN ([facility]) eos # 0.1 10 0.0-0.5 Eos # [facility] ([facility]) baso # 0.1 10 0.0-0.2 Baso # [facility] ([facility]) ID Date Data Source [id number] 03/30/2020 02:00:00 PM EST [place] ([facility]) Name Value Range Interpretation Code Description Data Alysa rce(s) Supporting Document(s) prolactin 4.4 NG/mL Prolactin [place] ([facility]) ID Date Data Source [id number] 03/30/2020 02:00:00 PM EST [place] ([facility]) Name Value Range Interpretation Code Description Data Alysa rce(s) Supporting Document(s) thyroid stimulating hormone 0.833 uIU/mL 0.358-3.740 Thyroid Stimulating Hormone [facility] ([facility]) ID Date Data Source [id number] 03/30/2020 02:00:00 PM EST [place] ([facility]) Name Value Range Interpretation Code Description Data Alysa rce(s) Supporting Document(s) glucose, fasting 86 mg/dL 70-100 Glucose, Fasting AT [facility]) blood urea nitrogen 11 mg/dL 7-18 Blood Urea Nitro gen [place] ([facility]) glomerular filtration rate > 60.0 >60 [place] r Filtration Rate [facility] ([facility]) creatinine for GFR 0.73 mg/dL 0.55-1.30 Creatinine for GF R [place] ([facility]) sodium level 140 mEq/L 136-145 Sodium Level NAVEEN ([facility]) chloride level 107 mEq/L 98-107 Chloride Level [place] ([facility]) carbon dioxide level 29 mEq/L 21-32 Carbon Dioxide Level [facility] ([facility]) potassium serum 4.4 mEq/L 3.5-5.1 Potassium Serum [place] ([facility]) AST/SGOT 10 U/L 7-37 AST/SGOT [facility] ([facility]) anion gap 4 mEq/L 8-16 Below low normal Anion Gap [facility] ( [facility]) calcium level 10.0 mg/dL 8.5-10.1 Calcium Level [place] ( [facility]) bilirubin,total 0.5 mg/dL 0.2-1.0 Bilirubin,total [place] ([facility]) ALT/SGPT 17 U/L 12-78 ALT/SGPT [place] ([facility]) total protein 7.8 gm/dL 6.4-8.2 Total Protein [place] ( [facility]) alkaline phosphatase 89 U/L 45-117 Alkaline Phosph atase [facility] ([facility]) albumin/globulin ratio 1.2-2.2 Below low normal Albumin /globulin Ratio [facility] ([facility]) albumin 4.1 gm/dL 3.2-5.2 Albumin [facility] ([facility]) ID Date Data Source [id number] 03/30/2020 02:00:00 PM EST [facility] ([facility]) Name Value Range Interpretation Code Description Data Alysa rce(s) Supporting Document(s) white blood count 5.7 10 4.0-10.0 White Blood Count [place] ([facility]) hemoglobin 13.7 g/dL 12.0-15.5 Hemoglobin [place] ([facility]) red blood count 4.34 10 4.00-5.40 Red Blood Count [place] ([facility]) mean corpuscular hemoglobin 31.6 pg 27.0-33.0 Mean Cor puscular Hemoglobin [facility] ([facility]) mean corpuscular volume 96.3 fL 80.0-96.0 Above high normal Mean Corpuscular Volume [facility] ([facility]) hematocrit 41.8 % 36.0-47.0 Hematocrit [place] ([facility]) platelet count, automated 283 10 150-450 Platelet C ount, Automated [place] ([facility]) red cell distribution width 11.7 % 11.5-14.5 Red Cell Distribution Width [facility] ([facility]) mean corpuscular HGB conc 32.8 g/dL 32.0-36.5 Mean Corpu scular HGB Conc [facility] ([facility]) lymph % 35.7 % 24.0-44.0 Lymph % [facility] ([facility]) neutrophils % 53.5 % 36.0-66.0 Neutrophils % [facility] ( [facility]) baso % 1.0 % 0.0-1.0 Baso % [facility] ([facility]) mono % 8.9 % 0.0-5.0 Above high normal [place] % [facility] ([facility]) eos % 0.9 % 0.0-3.0 Eos % [facility] ([facility]) nucleated red blood cell % 0.0 % 0-0 Nucleated Red Blood Cell % [facility] ([facility]) immature granulocyte % 0.0 % 0-3.0 Immature Gran ulocyte % [facility] ([facility]) neutrophils # 3.1 10 1.5-8.5 Neutrophils # [facility] ( [facility]) lymph # 2.0 10 1.5-5.0 Lymph # [facility] ([facility]) eos # 0.1 10 0.0-0.5 Eos # [facility] ([facility]) mono # 0.5 10 0.0-0.8 [place] # NAVEEN ([facility]) baso # 0.1 10 0.0-0.2 Baso # [facility] ([facility]) ID Date Data Source [id number] 03/30/2020 02:00:00 PM EST [place] ([facility]) Name Value Range Interpretation Code Description Data Alysa rce(s) Supporting Document(s) prolactin 4.4 NG/mL Prolactin [place] ([facility]) ID Date Data Source [id number] 03/30/2020 02:00:00 PM EST [place] ([facility]) Name Value Range Interpretation Code Description Data Alysa rce(s) Supporting Document(s) thyroid stimulating hormone 0.833 uIU/mL 0.358-3.740 Thyroid Stimulating Hormone [place] ([facility]) ID Date Data Source [id number] 03/30/2020 02:00:00 PM EST [place] ([facility]) Name Value Range Interpretation Code Description Data Alysa rce(s) Supporting Document(s) glucose, fasting 86 mg/dL 70-100 Glucose, Fasting AT [facility] ([facility]) blood urea nitrogen 11 mg/dL 7-18 Blood Urea Nitro gen [place] ([facility]) glomerular filtration rate > 60.0 >60 [place] r Filtration Rate [place] ([facility]) creatinine for GFR 0.73 mg/dL 0.55-1.30 Creatinine for GF R [place] ([facility]) potassium serum 4.4 mEq/L 3.5-5.1 Potassium Serum [place] ([facility]) sodium level 140 mEq/L 136-145 Sodium Level [facility] ([facility]) anion gap 4 mEq/L 8-16 Below low normal Anion Gap [facility] ( [facility]) calcium level 10.0 mg/dL 8.5-10.1 Calcium Level [place] ( [facility]) chloride level 107 mEq/L 98-107 Chloride Level [place] ([facility]) carbon dioxide level 29 mEq/L 21-32 Carbon Dioxide Level [place] ([facility]) total protein 7.8 gm/dL 6.4-8.2 Total Protein [facility] ( [facility]) alkaline phosphatase 89 U/L 45-117 Alkaline Phosph atase [facility] ([facility]) ALT/SGPT 17 U/L 12-78 ALT/SGPT [place] ([facility]) bilirubin,total 0.5 mg/dL 0.2-1.0 Bilirubin,total [place] ([facility]) AST/SGOT 10 U/L 7-37 AST/SGOT [place] ([facility]) albumin 4.1 gm/dL 3.2-5.2 Albumin [place] ([facility]) albumin/globulin ratio 1.2-2.2 Below low normal Albumin /globulin Ratio [facility] ([facility]) ID Date Data Source [id number] 03/30/2020 02:00:00 PM EST [place] ([facility]) Name Value Range Interpretation Code Description Data Alysa rce(s) Supporting Document(s) white blood count 5.7 10 4.0-10.0 White Blood Count [place] ([facility]) red blood count 4.34 10 4.00-5.40 Red Blood Count [place] ([facility]) hemoglobin 13.7 g/dL 12.0-15.5 Hemoglobin [place] ([facility]) hematocrit 41.8 % 36.0-47.0 Hematocrit [place] ([facility]) mean corpuscular volume 96.3 fL 80.0-96.0 Above high normal Mean Corpuscular Volume [facility] ([facility]) mean corpuscular hemoglobin 31.6 pg 27.0-33.0 Mean Cor puscular Hemoglobin [place] ([facility]) mean corpuscular HGB conc 32.8 g/dL 32.0-36.5 Mean Corpu scular HGB Conc [place] ([facility]) platelet count, automated 283 10 150-450 Platelet C ount, Automated [place] ([facility]) red cell distribution width 11.7 % 11.5-14.5 Red Cell Distribution Width [place] ([facility]) mono % 8.9 % 0.0-5.0 Above high normal [place] % [facility] ([facility]) lymph % 35.7 % 24.0-44.0 Lymph % [facility] ([facility]) eos % 0.9 % 0.0-3.0 Eos % [place] ([facility]) neutrophils % 53.5 % 36.0-66.0 Neutrophils % [place] ( [facility]) immature granulocyte % 0.0 % 0-3.0 Immature Gran ulocyte % [place] ([facility]) neutrophils # 3.1 10 1.5-8.5 Neutrophils # [place] ( [facility]) nucleated red blood cell % 0.0 % 0-0 Nucleated Red Blood Cell % [place] ([facility]) baso % 1.0 % 0.0-1.0 Baso % [facility] ([facility]) eos # 0.1 10 0.0-0.5 Eos # [place] ([facility]) mono # 0.5 10 0.0-0.8 [place] # N[facility]EN ([facility]) lymph # 2.0 10 1.5-5.0 Lymph # [place] ([facility]) baso # 0.1 10 0.0-0.2 Baso # [place] ([facility]) ID Date Data Source [id number] 03/30/2020 02:00:00 PM EST [place] ([facility]) Name Value Range Interpretation Code Description Data Alysa rce(s) Supporting Document(s) prolactin 4.4 NG/mL Prolactin [place] ([facility]) ID Date Data Source [id number] 03/30/2020 02:00:00 PM EST [place] ([facility]) Name Value Range Interpretation Code Description Data Alysa rce(s) Supporting Document(s) thyroid stimulating hormone 0.833 uIU/mL 0.358-3.740 Thyroid Stimulating Hormone [place] ([facility]) ID Date Data Source [id number] 03/30/2020 02:00:00 PM EST [place] ([facility]) Name Value Range Interpretation Code Description Data Alysa rce(s) Supporting Document(s) glucose, fasting 86 mg/dL 70-100 Glucose, Fasting AT [facility]) blood urea nitrogen 11 mg/dL 7-18 Blood Urea Nitro gen [place] ([facility]) potassium serum 4.4 mEq/L 3.5-5.1 Potassium Serum [place] ([facility]) creatinine for GFR 0.73 mg/dL 0.55-1.30 Creatinine for GF R [place] ([facility]) sodium level 140 mEq/L 136-145 Sodium Level [place] ([facility]) glomerular filtration rate > 60.0 >60 [place] r Filtration Rate [place] ([facility]) carbon dioxide level 29 mEq/L 21-32 Carbon Dioxide Level [place] ([facility]) chloride level 107 mEq/L 98-107 Chloride Level [place] ([facility] anion gap 4 mEq/L 8-16 Below low normal Anion Gap [place] ( [facility]) AST/SGOT 10 U/L 7-37 AST/SGOT [place] ([facility]) calcium level 10.0 mg/dL 8.5-10.1 Calcium Level [place] ( [facility]) alkaline phosphatase 89 U/L 45-117 Alkaline Phosph atase [place] ([facility]) ALT/SGPT 17 U/L 12-78 ALT/SGPT [place] ([facility]) total protein 7.8 gm/dL 6.4-8.2 Total Protein [place] ( [facility]) bilirubin,total 0.5 mg/dL 0.2-1.0 Bilirubin,total [place] ([facility]) albumin 4.1 gm/dL 3.2-5.2 Albumin [facility]EN ([facility]) albumin/globulin ratio 1.2-2.2 Below low normal Albumin /globulin Ratio NAVEEN ([facility]) ID Date Data Source [id number] 03/30/2020 02:00:00 PM EST NAVEEN ([facility]) Name Value Range Interpretation Code Description Data Alysa rce(s) Supporting Document(s) red blood count 4.34 10 4.00-5.40 Red Blood Count ATHE NA ([facility]) white blood count 5.7 10 4.0-10.0 White Blood Count NAVEEN ([facility]) hemoglobin 13.7 g/dL 12.0-15.5 Hemoglobin NAVEEN ([facility]) mean corpuscular volume 96.3 fL 80.0-96.0 Above high normal Mean Corpuscular Volume NAVEEN ([facility]) hematocrit 41.8 % 36.0-47.0 Hematocrit NAVEEN ([facility]) mean corpuscular hemoglobin 31.6 pg 27.0-33.0 Mean Cor puscular Hemoglobin NAVEEN ([facility]) platelet count, automated 283 10 150-450 Platelet C ount, Automated NAVEEN ([facility]) red cell distribution width 11.7 % 11.5-14.5 Red Cell Distribution Width NAVEEN ([facility]) mean corpuscular HGB conc 32.8 g/dL 32.0-36.5 Mean Corpu scular HGB Conc NAVEEN ([facility]) mono % 8.9 % 0.0-5.0 Above high normal [place] % NAVEEN ([facility]) lymph % 35.7 % 24.0-44.0 Lymph % NAVEEN ([facility]) neutrophils % 53.5 % 36.0-66.0 Neutrophils % NAVEEN ( [facility]) immature granulocyte % 0.0 % 0-3.0 Immature Gran ulocyte % NAVEEN ([facility]) eos % 0.9 % 0.0-3.0 Eos % NAVEEN ([facility]) nucleated red blood cell % 0.0 % 0-0 Nucleated Red Blood Cell % NAVEEN ([facility]) baso % 1.0 % 0.0-1.0 Baso % NAVEEN ([facility]) lymph # 2.0 10 1.5-5.0 Lymph # NAVEEN ([facility]) neutrophils # 3.1 10 1.5-8.5 Neutrophils # NAVEEN ( [facility]) mono # 0.5 10 0.0-0.8 [place] # NAVEEN ([facility]) eos # 0.1 10 0.0-0.5 Eos # NAVEEN ([facility]) baso # 0.1 10 0.0-0.2 Baso # NAVEEN ([facility]) ID Date Data Source [id number] 03/30/2020 02:00:00 PM EST NAVEEN ([facility]) Name Value Range Interpretation Code Description Data Alysa rce(s) Supporting Document(s) prolactin 4.4 NG/mL Prolactin NAVEEN ([facility]) ID Date Data Source [id number] 03/30/2020 02:00:00 PM EST NAVEEN ([facility]) Name Value Range Interpretation Code Description Data Alysa rce(s) Supporting Document(s) thyroid stimulating hormone 0.833 uIU/mL 0.358-3.740 Thyroid Stimulating Hormone NAVEEN ([facility]) ID Date Data Source [id number] 03/30/2020 02:00:00 PM EST NAVEEN ([facility]) Name Value Range Interpretation Code Description Data Alysa rce(s) Supporting Document(s) glucose, fasting 86 mg/dL 70-100 Glucose, Fasting AT [place] ([facility]) blood urea nitrogen 11 mg/dL 7-18 Blood Urea Nitro gen NAVEEN ([facility]) sodium level 140 mEq/L 136-145 Sodium Level NAVEEN ([facility]) glomerular filtration rate > 60.0 >60 [place] r Filtration Rate NAVEEN ([facility]) creatinine for GFR 0.73 mg/dL 0.55-1.30 Creatinine for GF R NAVEEN ([facility]) potassium serum 4.4 mEq/L 3.5-5.1 Potassium Serum AT[place] ([facility]) anion gap 4 mEq/L 8-16 Below low normal Anion Gap NAVEEN ( [facility]) chloride level 107 mEq/L 98-107 Chloride Level NAVEEN ([facility]) carbon dioxide level 29 mEq/L 21-32 Carbon Dioxide Level N[place]EN ([facility]) AST/SGOT 10 U/L 7-37 AST/SGOT NAVEEN ([facility]) ALT/SGPT 17 U/L 12-78 ALT/SGPT [place] ([facility]) bilirubin,total 0.5 mg/dL 0.2-1.0 Bilirubin,total AT[place] ([facility]) alkaline phosphatase 89 U/L 45-117 Alkaline Phosph atase NAVEEN ([facility]) calcium level 10.0 mg/dL 8.5-10.1 Calcium Level NAVEEN ( [facility]) total protein 7.8 gm/dL 6.4-8.2 Total Protein NAVEEN ( [facility]) albumin 4.1 gm/dL 3.2-5.2 Albumin NAVEEN ([facility]) albumin/globulin ratio 1.2-2.2 Below low normal Albumin /globulin Ratio NAVEEN ([facility]) ID Date Data Source [id number] 03/30/2020 02:00:00 PM EST NAVEEN ([facility]) Name Value Range Interpretation Code Description Data Alysa rce(s) Supporting Document(s) white blood count 5.7 10 4.0-10.0 White Blood Count NAVEEN ([facility]) red blood count 4.34 10 4.00-5.40 Red Blood Count ATHE NA ([facility]) hematocrit 41.8 % 36.0-47.0 Hematocrit NAVEEN ([facility]) hemoglobin 13.7 g/dL 12.0-15.5 Hemoglobin NAVEEN ([facility]) mean corpuscular volume 96.3 fL 80.0-96.0 Above high normal Mean Corpuscular Volume NAVEEN ([facility]) mean corpuscular hemoglobin 31.6 pg 27.0-33.0 Mean Cor puscular Hemoglobin NAVEEN ([facility]) mean corpuscular HGB conc 32.8 g/dL 32.0-36.5 Mean Corpu scular HGB Conc NAVEEN ([facility]) platelet count, automated 283 10 150-450 Platelet C ount, Automated NAVEEN ([facility]) red cell distribution width 11.7 % 11.5-14.5 Red Cell Distribution Width NAVEEN ([facility]) mono % 8.9 % 0.0-5.0 Above high normal [place] % NAVEEN ([facility]) neutrophils % 53.5 % 36.0-66.0 Neutrophils % NAVEEN ( [facility]) lymph % 35.7 % 24.0-44.0 Lymph % NAVEEN ([facility]) baso % 1.0 % 0.0-1.0 Baso % NAVEEN ([facility]) eos % 0.9 % 0.0-3.0 Eos % NAVEEN ([facility]) immature granulocyte % 0.0 % 0-3.0 Immature Gran ulocyte % NAVEEN ([facility]) nucleated red blood cell % 0.0 % 0-0 Nucleated Red Blood Cell % NAVEEN ([facility]) neutrophils # 3.1 10 1.5-8.5 Neutrophils # NAVEEN ( [facility]) mono # 0.5 10 0.0-0.8 [place] # NAVEEN ([facility]) eos # 0.1 10 0.0-0.5 Eos # NAVEEN ([facility]) lymph # 2.0 10 1.5-5.0 Lymph # NAVEEN ([facility]) baso # 0.1 10 0.0-0.2 Baso # NAVEEN ([facility]) ID Date Data Source [id number] 03/30/2020 02:00:00 PM EST NAVEEN ([facility]) Name Value Range Interpretation Code Description Data Alysa rce(s) Supporting Document(s) prolactin 4.4 NG/mL Prolactin NAVEEN ([facility]) ID Date Data Source [id number] 03/30/2020 02:00:00 PM EST NAVEEN ([facility]) Name Value Range Interpretation Code Description Data Alysa rce(s) Supporting Document(s) thyroid stimulating hormone 0.833 uIU/mL 0.358-3.740 Thyroid Stimulating Hormone NAVEEN ([facility]) ID Date Data Source [id number] 03/30/2020 02:00:00 PM EST NAVEEN ([facility]) Name Value Range Interpretation Code Description Data Alysa rce(s) Supporting Document(s) glucose, fasting 86 mg/dL 70-100 Glucose, Fasting AT [facility] ([facility]) glomerular filtration rate > 60.0 >60 Glomer[place] r Filtration Rate NAVEEN ([facility]) blood urea nitrogen 11 mg/dL 7-18 Blood Urea Nitro gen NAVEEN ([facility]) creatinine for GFR 0.73 mg/dL 0.55-1.30 Creatinine for GF R NAVEEN ([facility]) potassium serum 4.4 mEq/L 3.5-5.1 Potassium Serum ATHE NA ([facility]) carbon dioxide level 29 mEq/L 21-32 Carbon Dioxide Level NAVEEN ([facility]) chloride level 107 mEq/L 98-107 Chloride Level [place]AEEN ([facility]) anion gap 4 mEq/L 8-16 Below low normal Anion Gap NAVEEN ( [facility]) sodium level 140 mEq/L 136-145 Sodium Level NAVEEN (No [facility]) alkaline phosphatase 89 U/L 45-117 Alkaline Phosph atase NAVEEN ([facility]) ALT/SGPT 17 U/L 12-78 ALT/SGPT NAVEEN ([facility]) AST/SGOT 10 U/L 7-37 AST/SGOT NAVEEN ([facility]) calcium level 10.0 mg/dL 8.5-10.1 Calcium Level NAVEEN ( [facility]) albumin/globulin ratio 1.2-2.2 Below low normal Albumin /globulin Ratio NAVEEN ([facility]) albumin 4.1 gm/dL 3.2-5.2 Albumin NAVEEN ([facility]) bilirubin,total 0.5 mg/dL 0.2-1.0 Bilirubin,total ATHE NA ([facility]) total protein 7.8 gm/dL 6.4-8.2 Total Protein NAVEEN ( [facility]) ID Date Data Source [id number] 03/30/2020 02:00:00 PM EST NAVEEN ([facility]) Name Value Range Interpretation Code Description Data Alysa rce(s) Supporting Document(s) white blood count 5.7 10 4.0-10.0 White Blood Count NAVEEN ([facility]) mean corpuscular volume 96.3 fL 80.0-96.0 Above high normal Mean Corpuscular Volume NAVEEN ([facility]) red blood count 4.34 10 4.00-5.40 Red Blood Count ATHE NA ([facility]) hematocrit 41.8 % 36.0-47.0 Hematocrit NAVEEN ([facility]) hemoglobin 13.7 g/dL 12.0-15.5 Hemoglobin NAVEEN ([facility]) mean corpuscular HGB conc 32.8 g/dL 32.0-36.5 Mean Corpu scular HGB Conc NAVEEN ([facility]) red cell distribution width 11.7 % 11.5-14.5 Red Cell Distribution Width NAVEEN ([facility]) mean corpuscular hemoglobin 31.6 pg 27.0-33.0 Mean Cor puscular Hemoglobin NAVEEN ([facility]) neutrophils % 53.5 % 36.0-66.0 Neutrophils % NAVEEN ( [facility]) platelet count, automated 283 10 150-450 Platelet C ount, Automated NAVEEN ([facility]) lymph % 35.7 % 24.0-44.0 Lymph % NAVEEN ([facility]) eos % 0.9 % 0.0-3.0 Eos % NAVEEN ([facility]) baso % 1.0 % 0.0-1.0 Baso % NAVEEN ([facility]) mono % 8.9 % 0.0-5.0 Above high normal [place] % NAVEEN ([facility]) immature granulocyte % 0.0 % 0-3.0 Immature Gran ulocyte % NAVEEN ([facility]) neutrophils # 3.1 10 1.5-8.5 Neutrophils # NAVEEN ( [facility]) lymph # 2.0 10 1.5-5.0 Lymph # NAVEEN ([facility]) nucleated red blood cell % 0.0 % 0-0 Nucleated Red Blood Cell % NAVEEN ([facility]) mono # 0.5 10 0.0-0.8 [place] # NAVEEN ([facility]) baso # 0.1 10 0.0-0.2 Baso # NAVEEN ([facility]) eos # 0.1 10 0.0-0.5 Eos # NAVEEN ([facility]) ID Date Data Source [id number] 03/30/2020 02:00:00 PM EST NAVEEN ([facility]) Name Value Range Interpretation Code Description Data Alysa rce(s) Supporting Document(s) prolactin 4.4 NG/mL Prolactin NAVEEN ([facility]) ID Date Data Source [id number] 03/30/2020 02:00:00 PM EST NAVEEN ([facility]) Name Value Range Interpretation Code Description Data Alysa rce(s) Supporting Document(s) thyroid stimulating hormone 0.833 uIU/mL 0.358-3.740 Thyroid Stimulating Hormone NAVEEN ([facility]) ID Date Data Source [id number] 03/30/2020 02:00:00 PM EST NAVEEN ([facility]) Name Value Range Interpretation Code Description Data Alysa rce(s) Supporting Document(s) glucose, fasting 86 mg/dL 70-100 Glucose, Fasting AT [place] ([facility]) potassium serum 4.4 mEq/L 3.5-5.1 Potassium Serum ATHE NA ([facility]) blood urea nitrogen 11 mg/dL 7-18 Blood Urea Nitro gen NAVEEN ([facility]) sodium level 140 mEq/L 136-145 Sodium Level NAVEEN ([facility]) creatinine for GFR 0.73 mg/dL 0.55-1.30 Creatinine for GF R NAVEEN ([facility]) glomerular filtration rate > 60.0 >60 [place]omer[place] r Filtration Rate NAVEEN ([facility]) carbon dioxide level 29 mEq/L 21-32 Carbon Dioxide Level NAVEEN ([facility]) anion gap 4 mEq/L 8-16 Below low normal Anion Gap NAVEEN ( [facility]) chloride level 107 mEq/L 98-107 Chloride Level NAVEEN ([facility]) calcium level 10.0 mg/dL 8.5-10.1 Calcium Level NAVEEN ( [facility]) ALT/SGPT 17 U/L 12-78 ALT/SGPT NAVEEN ([facility]) bilirubin,total 0.5 mg/dL 0.2-1.0 Bilirubin,total ATHE NA ([facility]) albumin 4.1 gm/dL 3.2-5.2 Albumin NAVEEN ([facility]) AST/SGOT 10 U/L 7-37 AST/SGOT NAVEEN ([facility]) total protein 7.8 gm/dL 6.4-8.2 Total Protein NAVEEN ( [facility]) alkaline phosphatase 89 U/L 45-117 Alkaline Phosph atase NAVEEN ([facility]) albumin/globulin ratio 1.2-2.2 Below low normal Albumin /globulin Ratio NAVEEN ([facility]) ID Date Data Source [id number] 03/30/2020 02:00:00 PM EST NAVEEN ([facility]) Name Value Range Interpretation Code Description Data Alysa rce(s) Supporting Document(s) white blood count 5.7 10 4.0-10.0 White Blood Count NAVEEN ([facility]) hematocrit 41.8 % 36.0-47.0 Hematocrit NAVEEN ([facility]) hemoglobin 13.7 g/dL 12.0-15.5 Hemoglobin NAVEEN ([facility]) red blood count 4.34 10 4.00-5.40 Red Blood Count ATHE ([facility]) red cell distribution width 11.7 % 11.5-14.5 Red Cell Distribution Width NAVEEN ([facility]) mean corpuscular HGB conc 32.8 g/dL 32.0-36.5 Mean Corpu scular HGB Conc NAVEEN ([facility]) mean corpuscular volume 96.3 fL 80.0-96.0 Above high normal Mean Corpuscular Volume NAVEEN ([facility]) mean corpuscular hemoglobin 31.6 pg 27.0-33.0 Mean Cor puscular Hemoglobin NAVEEN ([facility]) mono % 8.9 % 0.0-5.0 Above high normal [place] % NAVEEN ([facility]) platelet count, automated 283 10 150-450 Platelet C ount, Automated NAVEEN ([facility]) neutrophils % 53.5 % 36.0-66.0 Neutrophils % NAVEEN ( [facility]) lymph % 35.7 % 24.0-44.0 Lymph % NAVEEN ([facility]) eos % 0.9 % 0.0-3.0 Eos % NAVEEN ([facility]) neutrophils # 3.1 10 1.5-8.5 Neutrophils # NAVEEN ( [facility]) nucleated red blood cell % 0.0 % 0-0 Nucleated Red Blood Cell % NAVEEN ([facility]) immature granulocyte % 0.0 % 0-3.0 Immature Gran ulocyte % NAVEEN ([facility]) baso % 1.0 % 0.0-1.0 Baso % NAVEEN ([facility]) lymph # 2.0 10 1.5-5.0 Lymph # NAVEEN ([facility]) baso # 0.1 10 0.0-0.2 Baso # NAVEEN ([facility]) mono # 0.5 10 0.0-0.8 [place] # NAVEEN ([facility]) eos # 0.1 10 0.0-0.5 Eos # NAVEEN ([facility]) ID Date Data Source [id number] 03/30/2020 02:00:00 PM EST NAVEEN ([facility]) Name Value Range Interpretation Code Description Data Alysa rce(s) Supporting Document(s) prolactin 4.4 NG/mL Prolactin [place] ([facility]) ID Date Data Source [id number] 03/30/2020 02:00:00 PM EST NAVEEN ([facility]) Name Value Range Interpretation Code Description Data Alysa rce(s) Supporting Document(s) thyroid stimulating hormone 0.833 uIU/mL 0.358-3.740 Thyroid Stimulating Hormone [place] ([facility]) ID Date Data Source [id number] 03/30/2020 02:00:00 PM EST NAVEEN ([facility]) Name Value Range Interpretation Code Description Data Alysa rce(s) Supporting Document(s) creatinine for GFR 0.73 mg/dL 0.55-1.30 Creatinine for GF R [place] ([facility]) blood urea nitrogen 11 mg/dL 7-18 Blood Urea Nitro gen NAVEEN ([facility]) glucose, fasting 86 mg/dL 70-100 Glucose, Fasting AT [facility] ([facility]) glomerular filtration rate > 60.0 >60 [place]omer[place] r Filtration Rate NAVEEN ([facility]) carbon dioxide level 29 mEq/L 21-32 Carbon Dioxide Level [place] ([facility]) potassium serum 4.4 mEq/L 3.5-5.1 Potassium Serum ATHE NA ([facility]) chloride level 107 mEq/L 98-107 Chloride Level NAVEEN ([facility]) sodium level 140 mEq/L 136-145 Sodium Level NAVEEN ([facility]) calcium level 10.0 mg/dL 8.5-10.1 Calcium Level NAVEEN ( [facility]) anion gap 4 mEq/L 8-16 Below low normal Anion Gap NAVEEN ( [facility]) AST/SGOT 10 U/L 7-37 AST/SGOT NAVEEN ([facility]) ALT/SGPT 17 U/L 12-78 ALT/SGPT NAVEEN ([facility]) bilirubin,total 0.5 mg/dL 0.2-1.0 Bilirubin,total ATHE ([facility]) albumin/globulin ratio 1.2-2.2 Below low normal Albumin /globulin Ratio NAVEEN ([facility]) albumin 4.1 gm/dL 3.2-5.2 Albumin NAVEEN ([facility]) alkaline phosphatase 89 U/L 45-117 Alkaline Phosph atase NAVEEN ([facility]) total protein 7.8 gm/dL 6.4-8.2 Total Protein NAVEEN ( [facility]) ID Date Data Source [id number] 03/30/2020 02:00:00 PM EST NAVEEN ([facility]) Name Value Range Interpretation Code Description Data Alysa rce(s) Supporting Document(s) red blood count 4.34 10 4.00-5.40 Red Blood Count [place] ([facility]) white blood count 5.7 10 4.0-10.0 White Blood Count NAVEEN ([facility]) hematocrit 41.8 % 36.0-47.0 Hematocrit NAVEEN ([facility]) mean corpuscular volume 96.3 fL 80.0-96.0 Above high normal Mean Corpuscular Volume NAVEEN ([facility]) hemoglobin 13.7 g/dL 12.0-15.5 Hemoglobin NAVEEN ([facility]) mean corpuscular hemoglobin 31.6 pg 27.0-33.0 Mean Cor puscular Hemoglobin NAVEEN ([facility]) platelet count, automated 283 10 150-450 Platelet C ount, Automated [place] ([facility]) neutrophils % 53.5 % 36.0-66.0 Neutrophils % NAVEEN ( [facility]) red cell distribution width 11.7 % 11.5-14.5 Red Cell Distribution Width NAVEEN ([facility]) mean corpuscular HGB conc 32.8 g/dL 32.0-36.5 Mean Corpu scular HGB Conc NAVEEN ([facility]) eos % 0.9 % 0.0-3.0 Eos % NAVEEN ([facility]) lymph % 35.7 % 24.0-44.0 Lymph % [place] ([facility]) mono % 8.9 % 0.0-5.0 Above high normal [place] % [place] ([facility]) immature granulocyte % 0.0 % 0-3.0 Immature Gran ulocyte % NAVEEN ([facility]) nucleated red blood cell % 0.0 % 0-0 Nucleated Red Blood Cell % NAVEEN ([facility]) baso % 1.0 % 0.0-1.0 Baso % NAVEEN ([facility]) eos # 0.1 10 0.0-0.5 Eos # NAVEEN ([facility]) mono # 0.5 10 0.0-0.8 [place] # [place] ([facility]) lymph # 2.0 10 1.5-5.0 Lymph # NAVEEN ([facility]) neutrophils # 3.1 10 1.5-8.5 Neutrophils # NAVEEN ( [facility]) baso # 0.1 10 0.0-0.2 Baso # NAVEEN ([facility]) ID Date Data Source [id number] 03/30/2020 02:00:00 PM EST NAVEEN ([facility]) Name Value Range Interpretation Code Description Data Alysa rce(s) Supporting Document(s) prolactin 4.4 NG/mL Prolactin [place] ([facility]) ID Date Data Source [id number] 03/30/2020 02:00:00 PM EST NAVEEN ([facility]) Name Value Range Interpretation Code Description Data Alysa rce(s) Supporting Document(s) thyroid stimulating hormone 0.833 uIU/mL 0.358-3.740 Thyroid Stimulating Hormone [place]AVEEN ([facility]) ID Date Data Source [id number] 03/30/2020 02:00:00 PM EST NAVEEN ([facility]) Name Value Range Interpretation Code Description Data Alysa rce(s) Supporting Document(s) blood urea nitrogen 11 mg/dL 7-18 Blood Urea Nitro gen NAVEEN ([facility]) glucose, fasting 86 mg/dL 70-100 Glucose, Fasting AT [facility]) potassium serum 4.4 mEq/L 3.5-5.1 Potassium Serum ATHE NA ([facility]) glomerular filtration rate > 60.0 >60 [place]omer[place] r Filtration Rate NAVEEN ([facility]) sodium level 140 mEq/L 136-145 Sodium Level NAVEEN ([facility]) creatinine for GFR 0.73 mg/dL 0.55-1.30 Creatinine for GF R [facility] ([facility] [facility]) carbon dioxide level 29 mEq/L 21-32 Carbon Dioxide Level NAVEEN ([facility]) calcium level 10.0 mg/dL 8.5-10.1 Calcium Level [place] ( [facility]) AST/SGOT 10 U/L 7-37 AST/SGOT [facility] ([facility]) chloride level 107 mEq/L 98-107 Chloride Level [place] ([facility]) anion gap 4 mEq/L 8-16 Below low normal Anion Gap [place] ( [facility]) ALT/SGPT 17 U/L 12-78 ALT/SGPT [place] ([facility]) total protein 7.8 gm/dL 6.4-8.2 Total Protein [place] ( [facility]) alkaline phosphatase 89 U/L 45-117 Alkaline Phosph atase [place] ([facility]) bilirubin,total 0.5 mg/dL 0.2-1.0 Bilirubin,total ATHE NA ([facility]) albumin 4.1 gm/dL 3.2-5.2 Albumin [place] ([facility]) albumin/globulin ratio 1.2-2.2 Below low normal Albumin /globulin Ratio [facility] ([facility]) ID Date Data Source [id number] 03/30/2020 02:00:00 PM EST [place] ([facility]) Name Value Range Interpretation Code Description Data Alysa rce(s) Supporting Document(s) white blood count 5.7 10 4.0-10.0 White Blood Count [place] ([facility]) hemoglobin 13.7 g/dL 12.0-15.5 Hemoglobin [place] ([facility]) red blood count 4.34 10 4.00-5.40 Red Blood Count ATHE NA ([facility]) hematocrit 41.8 % 36.0-47.0 Hematocrit [place] ([facility]) mean corpuscular volume 96.3 fL 80.0-96.0 Above high normal Mean Corpuscular Volume [place] ([facility]) mean corpuscular hemoglobin 31.6 pg 27.0-33.0 Mean Cor puscular Hemoglobin [place] ([facility]) mean corpuscular HGB conc 32.8 g/dL 32.0-36.5 Mean Corpu scular HGB Conc [place] ([facility]) red cell distribution width 11.7 % 11.5-14.5 Red Cell Distribution Width [place] ([facility]) platelet count, automated 283 10 150-450 Platelet C ount, Automated [place] ([facility]) eos % 0.9 % 0.0-3.0 Eos % [facility] ([facility]) mono % 8.9 % 0.0-5.0 Above high normal [place] % NAVEEN ([facility]) lymph % 35.7 % 24.0-44.0 Lymph % [facility] ([facility]) neutrophils % 53.5 % 36.0-66.0 Neutrophils % [place] ( [facility]) neutrophils # 3.1 10 1.5-8.5 Neutrophils # [place] ( [facility]) nucleated red blood cell % 0.0 % 0-0 Nucleated Red Blood Cell % [facility] ([facility]) immature granulocyte % 0.0 % 0-3.0 Immature Gran ulocyte % [place] ([facility]) baso % 1.0 % 0.0-1.0 Baso % [facility] ([facility]) lymph # 2.0 10 1.5-5.0 Lymph # [facility] ([facility]) eos # 0.1 10 0.0-0.5 Eos # [place] ([facility]) mono # 0.5 10 0.0-0.8 [place] # NAVEEN ([facility]) baso # 0.1 10 0.0-0.2 Baso # [facility] ([facility]) ID Date Data Source [id number] 03/30/2020 02:00:00 PM EST [place] ([facility]) Name Value Range Interpretation Code Description Data Alysa rce(s) Supporting Document(s) prolactin 4.4 NG/mL Prolactin [facility] ([facility]) ID Date Data Source [id number] 03/30/2020 02:00:00 PM EST [place] ([facility]) Name Value Range Interpretation Code Description Data Alysa rce(s) Supporting Document(s) thyroid stimulating hormone 0.833 uIU/mL 0.358-3.740 Thyroid Stimulating Hormone [place] ([facility]) ID Date Data Source [id number] 03/30/2020 02:00:00 PM EST [place] ([facility]) Name Value Range Interpretation Code Description Data Alysa rce(s) Supporting Document(s) creatinine for GFR 0.73 mg/dL 0.55-1.30 Creatinine for GF R [place] ([facility]) blood urea nitrogen 11 mg/dL 7-18 Blood Urea Nitro gen [place] ([facility]) glucose, fasting 86 mg/dL 70-100 Glucose, Fasting AT [place] ([facility]) potassium serum 4.4 mEq/L 3.5-5.1 Potassium Serum AT[place] NA ([facility]) glomerular filtration rate > 60.0 >60 Glomerula r Filtration Rate [place] ([facility]) sodium level 140 mEq/L 136-145 Sodium Level [facility] ([facility]) chloride level 107 mEq/L 98-107 Chloride Level [place] ([facility]) carbon dioxide level 29 mEq/L 21-32 Carbon Dioxide Level [place] ([facility]) anion gap 4 mEq/L 8-16 Below low normal Anion Gap [place] ( [facility]) calcium level 10.0 mg/dL 8.5-10.1 Calcium Level [place] ( [facility]) ALT/SGPT 17 U/L 12-78 ALT/SGPT [place] ([facility]) alkaline phosphatase 89 U/L 45-117 Alkaline Phosph atase [place] ([facility]) AST/SGOT 10 U/L 7-37 AST/SGOT [place] ([facility]) bilirubin,total 0.5 mg/dL 0.2-1.0 Bilirubin,total [place] ([facility]) albumin 4.1 gm/dL 3.2-5.2 Albumin [place] ([facility]) total protein 7.8 gm/dL 6.4-8.2 Total Protein [place] ( [facility]) albumin/globulin ratio 1.2-2.2 Below low normal Albumin /globulin Ratio [facility] ([facility]) ID Date Data Source [id number] 03/30/2020 02:00:00 PM EST [place] ([facility]) Name Value Range Interpretation Code Description Data Alysa rce(s) Supporting Document(s) white blood count 5.7 10 4.0-10.0 White Blood Count [place] ([facility]) red blood count 4.34 10 4.00-5.40 Red Blood Count [place] ([facility]) hemoglobin 13.7 g/dL 12.0-15.5 Hemoglobin [place] ([facility]) hematocrit 41.8 % 36.0-47.0 Hematocrit [facility] ([facility]) mean corpuscular hemoglobin 31.6 pg 27.0-33.0 Mean Cor puscular Hemoglobin [facility] ([facility]) mean corpuscular HGB conc 32.8 g/dL 32.0-36.5 Mean Corpu scular HGB Conc [facility] ([facility]) mean corpuscular volume 96.3 fL 80.0-96.0 Above high normal Mean Corpuscular Volume [facility] ([facility]) platelet count, automated 283 10 150-450 Platelet C ount, Automated [place] ([facility]) neutrophils % 53.5 % 36.0-66.0 Neutrophils % [facility] ( [facility]) red cell distribution width 11.7 % 11.5-14.5 Red Cell Distribution Width [facility] ([facility]) mono % 8.9 % 0.0-5.0 Above high normal [place] % NAVEEN ([facility]) eos % 0.9 % 0.0-3.0 Eos % [facility] ([facility]) lymph % 35.7 % 24.0-44.0 Lymph % [facility] ([facility]) baso % 1.0 % 0.0-1.0 Baso % [facility] ([facility]) immature granulocyte % 0.0 % 0-3.0 Immature Gran ulocyte % [facility] ([facility]) nucleated red blood cell % 0.0 % 0-0 Nucleated Red Blood Cell % [facility] ([facility]) neutrophils # 3.1 10 1.5-8.5 Neutrophils # [facility] ( [facility]) lymph # 2.0 10 1.5-5.0 Lymph # [facility]EN ([facility]) baso # 0.1 10 0.0-0.2 Baso # [facility] ([facility]) mono # 0.5 10 0.0-0.8 [place] # NAVEEN ([facility]) eos # 0.1 10 0.0-0.5 Eos # [facility] ([facility]) ID Date Data Source [id number] 03/30/2020 02:00:00 PM EST [place] ([facility]) Name Value Range Interpretation Code Description Data Alysa rce(s) Supporting Document(s) prolactin 4.4 NG/mL Prolactin [facility] ([facility]) ID Date Data Source [id number] 03/30/2020 02:00:00 PM EST [place] ([facility]) Name Value Range Interpretation Code Description Data Alysa rce(s) Supporting Document(s) thyroid stimulating hormone 0.833 uIU/mL 0.358-3.740 Thyroid Stimulating Hormone [place] ([facility]) ID Date Data Source [id number] 03/30/2020 02:00:00 PM EST [place] ([facility]) Name Value Range Interpretation Code Description Data Alysa rce(s) Supporting Document(s) glucose, fasting 86 mg/dL 70-100 Glucose, Fasting AT [facility]) creatinine for GFR 0.73 mg/dL 0.55-1.30 Creatinine for GF R [place] ([facility]) blood urea nitrogen 11 mg/dL 7-18 Blood Urea Nitro gen [place] ([facility]) sodium level 140 mEq/L 136-145 Sodium Level NAVEEN (No [facility]) glomerular filtration rate > 60.0 >60 [place]omer[place] r Filtration Rate NAVEEN ([facility]) potassium serum 4.4 mEq/L 3.5-5.1 Potassium Serum ATHE NA ([facility]) carbon dioxide level 29 mEq/L 21-32 Carbon Dioxide Level N[facility]EN ([facility]) chloride level 107 mEq/L 98-107 Chloride Level [place] ([facility]) anion gap 4 mEq/L 8-16 Below low normal Anion Gap [place] ( [facility]) calcium level 10.0 mg/dL 8.5-10.1 Calcium Level [place] ( [facility]) AST/SGOT 10 U/L 7-37 AST/SGOT [facility] ([facility]) ALT/SGPT 17 U/L 12-78 ALT/SGPT [place] ([facility]) alkaline phosphatase 89 U/L 45-117 Alkaline Phosph atase [facility] ([facility]) bilirubin,total 0.5 mg/dL 0.2-1.0 Bilirubin,total ATHE NA ([facility]) albumin 4.1 gm/dL 3.2-5.2 Albumin [place] ([facility]) total protein 7.8 gm/dL 6.4-8.2 Total Protein [place] ( [facility]) albumin/globulin ratio 1.2-2.2 Below low normal Albumin /globulin Ratio [facility] ([facility]) ID Date Data Source [id number] 03/30/2020 02:00:00 PM EST [place] ([facility]) Name Value Range Interpretation Code Description Data Alysa rce(s) Supporting Document(s) hemoglobin 13.7 g/dL 12.0-15.5 Hemoglobin [place] ([facility]) white blood count 5.7 10 4.0-10.0 White Blood Count [place] ([facility]) red blood count 4.34 10 4.00-5.40 Red Blood Count [place] ([facility]) mean corpuscular volume 96.3 fL 80.0-96.0 Above high normal Mean Corpuscular Volume [place] ([facility]) hematocrit 41.8 % 36.0-47.0 Hematocrit [place] ([facility]) mean corpuscular hemoglobin 31.6 pg 27.0-33.0 Mean Cor puscular Hemoglobin [place] ([facility]) neutrophils % 53.5 % 36.0-66.0 Neutrophils % [place] ( [facility]) platelet count, automated 283 10 150-450 Platelet C ount, Automated [place] ([facility]) mean corpuscular HGB conc 32.8 g/dL 32.0-36.5 Mean Corpu scular HGB Conc [place] ([facility]) red cell distribution width 11.7 % 11.5-14.5 Red Cell Distribution Width [facility] ([facility]) eos % 0.9 % 0.0-3.0 Eos % [facility] ([facility]) lymph % 35.7 % 24.0-44.0 Lymph % [facility] ([facility]) mono % 8.9 % 0.0-5.0 Above high normal [place] % NAVEEN ([facility]) neutrophils # 3.1 10 1.5-8.5 Neutrophils # [facility] ( [facility]) immature granulocyte % 0.0 % 0-3.0 Immature Gran ulocyte % [facility] ([facility]) baso % 1.0 % 0.0-1.0 Baso % [facility] ([facility]) nucleated red blood cell % 0.0 % 0-0 Nucleated Red Blood Cell % [facility] ([facility]) lymph # 2.0 10 1.5-5.0 Lymph # [facility] ([facility]) baso # 0.1 10 0.0-0.2 Baso # [facility] ([facility]) eos # 0.1 10 0.0-0.5 Eos # [facility] ([facility]) mono # 0.5 10 0.0-0.8 [place] # NAVEEN ([facility]) ID Date Data Source [id number] 03/30/2020 02:00:00 PM EST [place] ([facility]) Name Value Range Interpretation Code Description Data Alysa rce(s) Supporting Document(s) prolactin 4.4 NG/mL Prolactin [facility] ([facility]) ID Date Data Source [id number] 03/30/2020 02:00:00 PM EST [place] ([facility]) Name Value Range Interpretation Code Description Data Alysa rce(s) Supporting Document(s) thyroid stimulating hormone 0.833 uIU/mL 0.358-3.740 Thyroid Stimulating Hormone [place] ([facility]) ID Date Data Source [id number] 03/30/2020 02:00:00 PM EST [place] ([facility]) Name Value Range Interpretation Code Description Data Alysa rce(s) Supporting Document(s) blood urea nitrogen 11 mg/dL 7-18 Blood Urea Nitro gen [place] ([facility]) creatinine for GFR 0.73 mg/dL 0.55-1.30 Creatinine for GF R [place] ([facility]) glucose, fasting 86 mg/dL 70-100 Glucose, Fasting AT [place] ([facility]) glomerular filtration rate > 60.0 >60 [place]omer[place] r Filtration Rate [place] ([facility]) chloride level 107 mEq/L 98-107 Chloride Level [place] ([facility]) potassium serum 4.4 mEq/L 3.5-5.1 Potassium Serum AT[place] NA ([facility]) sodium level 140 mEq/L 136-145 Sodium Level [facility] (No [facility]) carbon dioxide level 29 mEq/L 21-32 Carbon Dioxide Level [facility] ([facility]) calcium level 10.0 mg/dL 8.5-10.1 Calcium Level [place] ( [facility]) anion gap 4 mEq/L 8-16 Below low normal Anion Gap [place] ( [facility]) AST/SGOT 10 U/L 7-37 AST/SGOT [facility] ([facility]) ALT/SGPT 17 U/L 12-78 ALT/SGPT [place] ([facility]) alkaline phosphatase 89 U/L 45-117 Alkaline Phosph atase [place] ([facility]) bilirubin,total 0.5 mg/dL 0.2-1.0 Bilirubin,total [place] NA ([facility]) albumin 4.1 gm/dL 3.2-5.2 Albumin [place] ([facility]) total protein 7.8 gm/dL 6.4-8.2 Total Protein [place] ( [facility]) albumin/globulin ratio 1.2-2.2 Below low normal Albumin /globulin Ratio [place] ([facility]) ID Date Data Source [id number] 03/30/2020 02:00:00 PM EST [place] ([facility]) Name Value Range Interpretation Code Description Data Alysa rce(s) Supporting Document(s) red blood count 4.34 10 4.00-5.40 Red Blood Count [place] NA ([facility]) white blood count 5.7 10 4.0-10.0 White Blood Count [place] ([facility]) hemoglobin 13.7 g/dL 12.0-15.5 Hemoglobin [place] ([facility]) hematocrit 41.8 % 36.0-47.0 Hematocrit [place] ([facility]) mean corpuscular hemoglobin 31.6 pg 27.0-33.0 Mean Cor puscular Hemoglobin [facility] ([facility]) mean corpuscular volume 96.3 fL 80.0-96.0 Above high normal Mean Corpuscular Volume [facility] ([facility]) mean corpuscular HGB conc 32.8 g/dL 32.0-36.5 Mean Corpu scular HGB Conc [facility] ([facility]) red cell distribution width 11.7 % 11.5-14.5 Red Cell Distribution Width [place] ([facility]) platelet count, automated 283 10 150-450 Platelet C ount, Automated [place] ([facility]) neutrophils % 53.5 % 36.0-66.0 Neutrophils % [place] ( [facility]) mono % 8.9 % 0.0-5.0 Above high normal [place] % [place] ([facility]) eos % 0.9 % 0.0-3.0 Eos % [place] ([facility]) baso % 1.0 % 0.0-1.0 Baso % [facility] ([facility]) lymph % 35.7 % 24.0-44.0 Lymph % [place] ([facility]) lymph # 2.0 10 1.5-5.0 Lymph # [place] ([facility]) neutrophils # 3.1 10 1.5-8.5 Neutrophils # [place] ( [facility]) immature granulocyte % 0.0 % 0-3.0 Immature Gran ulocyte % [place] ([facility]) nucleated red blood cell % 0.0 % 0-0 Nucleated Red Blood Cell % [facility] ([facility]) eos # 0.1 10 0.0-0.5 Eos # [place] ([facility]) baso # 0.1 10 0.0-0.2 Baso # [facility] ([facility]) mono # 0.5 10 0.0-0.8 [place] # NAVEEN ([facility]) ID Date Data Source [id number] 03/30/2020 02:00:00 PM EST [place] ([facility]) Name Value Range Interpretation Code Description Data Alysa rce(s) Supporting Document(s) prolactin 4.4 NG/mL Prolactin [facility] ([facility]) ID Date Data Source [id number] 03/30/2020 02:00:00 PM EST [place] ([facility]) Name Value Range Interpretation Code Description Data Alysa rce(s) Supporting Document(s) thyroid stimulating hormone 0.833 uIU/mL 0.358-3.740 Thyroid Stimulating Hormone [place] ([facility]) ID Date Data Source [id number] 03/30/2020 02:00:00 PM EST [place] ([facility]) Name Value Range Interpretation Code Description Data Alysa rce(s) Supporting Document(s) glucose, fasting 86 mg/dL 70-100 Glucose, Fasting AT [place] ([facility]) blood urea nitrogen 11 mg/dL 7-18 Blood Urea Nitro gen [place] ([facility]) sodium level 140 mEq/L 136-145 Sodium Level [facility] (No [facility]) potassium serum 4.4 mEq/L 3.5-5.1 Potassium Serum [place] NA ([facility]) creatinine for GFR 0.73 mg/dL 0.55-1.30 Creatinine for GF R [place] ([facility]) glomerular filtration rate > 60.0 >60 [place]omer[place] r Filtration Rate [place] ([facility]) carbon dioxide level 29 mEq/L 21-32 Carbon Dioxide Level [place] ([facility]) chloride level 107 mEq/L 98-107 Chloride Level [place] ([facility]) anion gap 4 mEq/L 8-16 Below low normal Anion Gap [place] ( [facility]) AST/SGOT 10 U/L 7-37 AST/SGOT [facility] ([facility]) ALT/SGPT 17 U/L 12-78 ALT/SGPT [place] ([facility]) calcium level 10.0 mg/dL 8.5-10.1 Calcium Level [place] ( [facility]) alkaline phosphatase 89 U/L 45-117 Alkaline Phosph atase [place] ([facility]) bilirubin,total 0.5 mg/dL 0.2-1.0 Bilirubin,total [place] ([facility]) total protein 7.8 gm/dL 6.4-8.2 Total Protein [place] ( [facility]) albumin/globulin ratio 1.2-2.2 Below low normal Albumin /globulin Ratio [place] ([facility]) albumin 4.1 gm/dL 3.2-5.2 Albumin [place] ([facility]) ID Date Data Source [id number] 03/30/2020 02:00:00 PM EST [place] ([facility]) Name Value Range Interpretation Code Description Data Alysa rce(s) Supporting Document(s) white blood count 5.7 10 4.0-10.0 White Blood Count [place] ([facility]) red blood count 4.34 10 4.00-5.40 Red Blood Count [place] ([facility]) hemoglobin 13.7 g/dL 12.0-15.5 Hemoglobin [place] ([facility]) hematocrit 41.8 % 36.0-47.0 Hematocrit [place] ([facility]) red cell distribution width 11.7 % 11.5-14.5 Red Cell Distribution Width [place] ([facility]) mean corpuscular HGB conc 32.8 g/dL 32.0-36.5 Mean Corpu scular HGB Conc [place] ([facility]) mean corpuscular volume 96.3 fL 80.0-96.0 Above high normal Mean Corpuscular Volume [place] ([facility]) mean corpuscular hemoglobin 31.6 pg 27.0-33.0 Mean Cor puscular Hemoglobin [place] ([facility]) neutrophils % 53.5 % 36.0-66.0 Neutrophils % [place] ( [facility]) lymph % 35.7 % 24.0-44.0 Lymph % [place] ([facility]) platelet count, automated 283 10 150-450 Platelet C ount, Automated [place] ([facility]) mono % 8.9 % 0.0-5.0 Above high normal [place] % [facility] ([facility]) eos % 0.9 % 0.0-3.0 Eos % [place] ([facility]) baso % 1.0 % 0.0-1.0 Baso % [place] ([facility]) nucleated red blood cell % 0.0 % 0-0 Nucleated Red Blood Cell % [place] ([facility]) immature granulocyte % 0.0 % 0-3.0 Immature Gran ulocyte % [place] ([facility]) neutrophils # 3.1 10 1.5-8.5 Neutrophils # [place] ( [facility]) mono # 0.5 10 0.0-0.8 [place] # [facility] ([facility]) lymph # 2.0 10 1.5-5.0 Lymph # [place] ([facility]) eos # 0.1 10 0.0-0.5 Eos # [place] ([facility]) baso # 0.1 10 0.0-0.2 Baso # [place] ([facility]) ID Date Data Source [id number] 03/30/2020 02:00:00 PM EST [place] ([facility]) Name Value Range Interpretation Code Description Data Alysa rce(s) Supporting Document(s) prolactin 4.4 NG/mL Prolactin [place] ([facility]) ID Date Data Source [id number] 03/30/2020 02:00:00 PM EST [place] ([facility]) Name Value Range Interpretation Code Description Data Alysa rce(s) Supporting Document(s) thyroid stimulating hormone 0.833 uIU/mL 0.358-3.740 Thyroid Stimulating Hormone NAVEEN ([facility]) ID Date Data Source [id number] 03/30/2020 02:00:00 PM EST NAVEEN ([facility]) Name Value Range Interpretation Code Description Data Alysa rce(s) Supporting Document(s) glucose, fasting 86 mg/dL 70-100 Glucose, Fasting AT [facility] ([facility]) blood urea nitrogen 11 mg/dL 7-18 Blood Urea Nitro gen NAVEEN ([facility]) creatinine for GFR 0.73 mg/dL 0.55-1.30 Creatinine for GF R NAVEEN ([facility]) chloride level 107 mEq/L 98-107 Chloride Level NAVEEN ([facility]) sodium level 140 mEq/L 136-145 Sodium Level NAVEEN (No [facility]) glomerular filtration rate > 60.0 >60 [place] r Filtration Rate NAVEEN ([facility]) potassium serum 4.4 mEq/L 3.5-5.1 Potassium Serum ATHE ([facility]) anion gap 4 mEq/L 8-16 Below low normal Anion Gap NAVEEN ( [facility]) carbon dioxide level 29 mEq/L 21-32 Carbon Dioxide Level NAVEEN ([facility]) calcium level 10.0 mg/dL 8.5-10.1 Calcium Level NAVEEN ( [facility]) AST/SGOT 10 U/L 7-37 AST/SGOT NAVEEN ([facility]) bilirubin,total 0.5 mg/dL 0.2-1.0 Bilirubin,total ATHE ([facility]) alkaline phosphatase 89 U/L 45-117 Alkaline Phosph atase NAVEEN ([facility]) ALT/SGPT 17 U/L 12-78 ALT/SGPT NAVEEN ([facility]) total protein 7.8 gm/dL 6.4-8.2 Total Protein NAVEEN ( [facility]) albumin 4.1 gm/dL 3.2-5.2 Albumin NAVEEN ([facility]) albumin/globulin ratio 1.2-2.2 Below low normal Albumin /globulin Ratio NAVEEN ([facility]) ID Date Data Source [id number] 03/30/2020 02:00:00 PM EST NAVEEN ([facility]) Name Value Range Interpretation Code Description Data Alysa rce(s) Supporting Document(s) white blood count 5.7 10 4.0-10.0 White Blood Count NAVEEN ([facility]) red blood count 4.34 10 4.00-5.40 Red Blood Count ATHE ([facility]) hemoglobin 13.7 g/dL 12.0-15.5 Hemoglobin NAVEEN ([facility]) mean corpuscular hemoglobin 31.6 pg 27.0-33.0 Mean Cor puscular Hemoglobin NAVEEN ([facility]) hematocrit 41.8 % 36.0-47.0 Hematocrit NAVEEN ([facility]) mean corpuscular volume 96.3 fL 80.0-96.0 Above high normal Mean Corpuscular Volume NAVEEN ([facility]) mean corpuscular HGB conc 32.8 g/dL 32.0-36.5 Mean Corpu scular HGB Conc NAVEEN ([facility]) platelet count, automated 283 10 150-450 Platelet C ount, Automated NAVEEN ([facility]) red cell distribution width 11.7 % 11.5-14.5 Red Cell Distribution Width NAVEEN ([facility]) neutrophils % 53.5 % 36.0-66.0 Neutrophils % NAVEEN ( [facility]) baso % 1.0 % 0.0-1.0 Baso % NAVEEN ([facility]) eos % 0.9 % 0.0-3.0 Eos % NAVEEN ([facility]) mono % 8.9 % 0.0-5.0 Above high normal [place] % NAVEEN ([facility]) lymph % 35.7 % 24.0-44.0 Lymph % NAVEEN ([facility]) neutrophils # 3.1 10 1.5-8.5 Neutrophils # [place] ( [facility]) immature granulocyte % 0.0 % 0-3.0 Immature Gran ulocyte % [place] ([facility]) nucleated red blood cell % 0.0 % 0-0 Nucleated Red Blood Cell % [place] ([facility]) baso # 0.1 10 0.0-0.2 Baso # NAVEEN ([facility]) eos # 0.1 10 0.0-0.5 Eos # NAVEEN ([facility]) lymph # 2.0 10 1.5-5.0 Lymph # [place] ([facility]) mono # 0.5 10 0.0-0.8 [place] # NAVEEN ([facility]) ID Date Data Source [id number] 03/30/2020 02:00:00 PM EST [place] ([facility]) Name Value Range Interpretation Code Description Data Alysa rce(s) Supporting Document(s) prolactin 4.4 NG/mL Prolactin [place] ([facility]) ID Date Data Source [id number] 03/08/2020 10:45:00 AM EST [facility]) Name Value Range Interpretation Code Description Data Alysa rce(s) Supporting Document(s) SARS-CoV-2 (COVID-19) RNA [Presence] in Respiratory specimen by CEM with probe detection not detected not detected Sars Cov 2 RNA [facility]) ID Date Data Source [id number] 03/08/2020 10:45:00 AM EST [place] ([facility]) Name Value Range Interpretation Code Description Data Alysa rce(s) Supporting Document(s) SARS-CoV-2 (COVID-19) RNA [Presence] in Respiratory specimen by CEM with probe detection not detected not detected Sars Cov 2 RNA [facility]) ID Date Data Source [id number] 03/08/2020 10:45:00 AM EST [facility]) Name Value Range Interpretation Code Description Data Alysa rce(s) Supporting Document(s) SARS-CoV-2 (COVID-19) RNA [Presence] in Respiratory specimen by CEM with probe detection not detected not detected Sars Cov 2 RNA [facility]) ID Date Data Source [id number] 03/08/2020 10:45:00 AM EST [facility]) Name Value Range Interpretation Code Description Data Alysa rce(s) Supporting Document(s) SARS-CoV-2 (COVID-19) RNA [Presence] in Respiratory specimen by CEM with probe detection not detected not detected Sars Cov 2 RNA [facility]) ID Date Data Source [id number] 03/08/2020 10:45:00 AM EST [facility]) Name Value Range Interpretation Code Description Data Alysa rce(s) Supporting Document(s) SARS-CoV-2 (COVID-19) RNA [Presence] in Respiratory specimen by CEM with probe detection not detected not detected Sars Cov 2 RNA [facility]) ID Date Data Source [id number] 03/08/2020 10:45:00 AM EST [facility]) Name Value Range Interpretation Code Description Data Alysa rce(s) Supporting Document(s) SARS-CoV-2 (COVID-19) RNA [Presence] in Respiratory specimen by CEM with probe detection not detected not detected Sars Cov 2 RNA [facility]) ID Date Data Source [id number] 03/08/2020 10:45:00 AM EST [facility]) Name Value Range Interpretation Code Description Data Alysa rce(s) Supporting Document(s) SARS-CoV-2 (COVID-19) RNA [Presence] in Respiratory specimen by CEM with probe detection not detected not detected Sars Cov 2 RNA [facility] ([facility]) ID Date Data Source [id number] 03/08/2020 10:45:00 AM EST [facility]) Name Value Range Interpretation Code Description Data Alysa rce(s) Supporting Document(s) SARS-CoV-2 (COVID-19) RNA [Presence] in Respiratory specimen by CEM with probe detection not detected not detected Sars Cov 2 RNA [facility]) ID Date Data Source [id number] 03/08/2020 10:45:00 AM EST [facility]) Name Value Range Interpretation Code Description Data Alysa rce(s) Supporting Document(s) SARS-CoV-2 (COVID-19) RNA [Presence] in Respiratory specimen by CEM with probe detection not detected not detected Sars Cov 2 RNA [facility]) ID Date Data Source [id number] 03/08/2020 10:45:00 AM EST [facility]) Name Value Range Interpretation Code Description Data Alysa rce(s) Supporting Document(s) SARS-CoV-2 (COVID-19) RNA [Presence] in Respiratory specimen by CEM with probe detection not detected not detected Sars Cov 2 RNA [facility]) ID Date Data Source [id number] 03/08/2020 10:45:00 AM EST [facility]) Name Value Range Interpretation Code Description Data Alysa rce(s) Supporting Document(s) SARS-CoV-2 (COVID-19) RNA [Presence] in Respiratory specimen by CEM with probe detection not detected not detected Sars Cov 2 RNA [facility]) ID Date Data Source [id number] 03/08/2020 10:45:00 AM EST [facility]) Name Value Range Interpretation Code Description Data Alysa rce(s) Supporting Document(s) SARS-CoV-2 (COVID-19) RNA [Presence] in Respiratory specimen by CEM with probe detection not detected not detected Sars Cov 2 RNA [place] ([facility]) ID Date Data Source [id number] 03/08/2020 10:45:00 AM EST [facility]) Name Value Range Interpretation Code Description Data Alysa rce(s) Supporting Document(s) SARS-CoV-2 (COVID-19) RNA [Presence] in Respiratory specimen by CEM with probe detection not detected not detected Sars Cov 2 RNA [facility]) ID Date Data Source [id number] 03/08/2020 10:45:00 AM EST [facility]) Name Value Range Interpretation Code Description Data Alysa rce(s) Supporting Document(s) SARS-CoV-2 (COVID-19) RNA [Presence] in Respiratory specimen by CEM with probe detection not detected not detected Sars Cov 2 RNA [facility]) ID Date Data Source [id number] 03/08/2020 10:45:00 AM EST [facility]) Name Value Range Interpretation Code Description Data Alysa rce(s) Supporting Document(s) SARS-CoV-2 (COVID-19) RNA [Presence] in Respiratory specimen by CEM with probe detection not detected not detected Sars Cov 2 RNA [facility]) ID Date Data Source [id number] 03/08/2020 10:45:00 AM EST [facility]) Name Value Range Interpretation Code Description Data Alysa rce(s) Supporting Document(s) SARS-CoV-2 (COVID-19) RNA [Presence] in Respiratory specimen by CEM with probe detection not detected not detected Sars Cov 2 RNA [facility]) ID Date Data Source [id number] 03/08/2020 10:45:00 AM EST [facility]) Name Value Range Interpretation Code Description Data Alysa rce(s) Supporting Document(s) SARS-CoV-2 (COVID-19) RNA [Presence] in Respiratory specimen by CEM with probe detection not detected not detected Sars Cov 2 RNA [facility]) ID Date Data Source [id number] 03/08/2020 10:45:00 AM EST [facility]) Name Value Range Interpretation Code Description Data Alysa rce(s) Supporting Document(s) SARS-CoV-2 (COVID-19) RNA [Presence] in Respiratory specimen by CEM with probe detection not detected not detected Sars Cov 2 RNA [facility]) ID Date Data Source [id number] 03/08/2020 10:45:00 AM EST [facility]) Name Value Range Interpretation Code Description Data Alysa rce(s) Supporting Document(s) SARS-CoV-2 (COVID-19) RNA [Presence] in Respiratory specimen by CEM with probe detection not detected not detected Sars Cov 2 RNA [facility]) ID Date Data Source [id number] 03/08/2020 10:45:00 AM EST [facility]) Name Value Range Interpretation Code Description Data Alysa rce(s) Supporting Document(s) SARS-CoV-2 (COVID-19) RNA [Presence] in Respiratory specimen by CEM with probe detection not detected not detected Sars Cov 2 RNA [facility]) ID Date Data Source [id number] 03/08/2020 10:45:00 AM EST [facility]) Name Value Range Interpretation Code Description Data Alysa rce(s) Supporting Document(s) SARS-CoV-2 (COVID-19) RNA [Presence] in Respiratory specimen by CEM with probe detection not detected not detected Sars Cov 2 RNA [facility]) ID Date Data Source [id number] 03/08/2020 10:45:00 AM EST [place] ([facility]) Name Value Range Interpretation Code Description Data Alysa rce(s) Supporting Document(s) SARS-CoV-2 (COVID-19) RNA [Presence] in Respiratory specimen by CEM with probe detection not detected not detected Sars Cov 2 RNA [facility]) ID Date Data Source [id number] 03/08/2020 10:45:00 AM EST [facility]) Name Value Range Interpretation Code Description Data Alysa rce(s) Supporting Document(s) SARS-CoV-2 (COVID-19) RNA [Presence] in Respiratory specimen by CEM with probe detection not detected not detected Sars Cov 2 RNA [facility]) ID Date Data Source [id number] 03/08/2020 10:45:00 AM EST [facility]) Name Value Range Interpretation Code Description Data Alysa rce(s) Supporting Document(s) SARS-CoV-2 (COVID-19) RNA [Presence] in Respiratory specimen by CEM with probe detection not detected not detected Sars Cov 2 RNA [facility]) ID Date Data Source [id number] 03/08/2020 10:45:00 AM EST [facility]) Name Value Range Interpretation Code Description Data Alysa rce(s) Supporting Document(s) SARS-CoV-2 (COVID-19) RNA [Presence] in Respiratory specimen by CEM with probe detection not detected not detected Sars Cov 2 RNA [facility]) ID Date Data Source [id number] 03/08/2020 10:45:00 AM EST [facility]) Name Value Range Interpretation Code Description Data Alysa rce(s) Supporting Document(s) SARS-CoV-2 (COVID-19) RNA [Presence] in Respiratory specimen by CEM with probe detection not detected not detected Sars Cov 2 RNA [place] ([facility]) ID Date Data Source [id number] 03/08/2020 10:45:00 AM EST [place] ([facility]) Name Value Range Interpretation Code Description Data Alysa rce(s) Supporting Document(s) SARS-CoV-2 (COVID-19) RNA [Presence] in Respiratory specimen by CEM with probe detection not detected not detected Sars Cov 2 RNA [facility]AVEEN ([facility]) ID Date Data Source [id number] 01/26/2020 11:25:45 AM EDT [facility] Measurements & CalculationsHeight: 63 inches (5 [...] & Plan Problems:Added: Sore nipple (ICD- 780.99) (PCV91-L05.59) Assessment: left nipple sore, will get breast US as screeningDischarge from right nipple (DOL44-W49.52) Assessment: no discharge today on exam. will get labs if imaging comes back normal. could be medication side effects.Assessment not Saved Discharge from right nipple (UHE01-B94.52): Comment Onlyno discharge today on exam. will get labs if imaging comes back normal. could be medication side effects. will proceed based on testing.Orders:Ultrasound, breast, unilateral; complete [CPT-73365] Ultrasound, breast, unilateral; complete [CPT-52421] Adult - Ofc Vst, EST, Level III [CPT- 74500] Follow-Up Return to clinic: if symptoms persist Clinical Visit Summary Declined Name Value Range Interpretation Code Description Data Alysa rce(s) Supporting Document(s) Procedure Social History Code Duration Value Status Description Data Source(s ) 09/01/2020 01:32:25 PM EDT Never smoker completed Never [facility] 09/01/2020 01:32:25 PM EDT Never smoker completed Never [facility] 09/01/2020 01:32:25 PM EDT Never smoker completed Never [facility] 09/01/2020 01:32:25 PM EDT Never smoker completed Never [facility] 09/01/2020 01:32:25 PM EDT Never smoker completed Never [facility] 09/01/2020 01:32:25 PM EDT Never smoker completed Never [facility] Smoking 09/01/2020 01:32:00 PM EDT Never smoker completed Never [facility] Smoking 06/07/2020 12:00:00 AM EST Non-Smoker, Non-Drink er, Non-Drug User completed Non-Smoker, Non-Drinker, Non-Drug User MEDENT (Raj howard [employer]) Vital Signs ID Date Data Source [id number] Name Value Range Interpretation Code Description Data Source(s) Body height 63 [in_i] 63 [in_i] [facility]) Body mass index (BMI) [Ratio] 25.2 kg/m2 25.2 k g/m2 [place] ([facility]) Body weight 2275.2 [oz_av] 2275.2 [oz_av] ATH A ([facility]) Body mass index (BMI) [Ratio] 25.2 kg/m2 25.2 k g/m2 [place] ([facility]) Body height 63 [in_i] 63 [in_i] [place] ([facility]) Body weight 2275.2 [oz_av] 2275.2 [oz_av] ATHEN A ([facility]) Body height 63 [in_i] 63 [in_i] [place] ([facility]) Body mass index (BMI) [Ratio] 25.2 kg/m2 25.2 k g/m2 [place] ([facility]) Body weight 2275.2 [oz_av] 2275.2 [oz_av] ATHEN A ([facility]) Body height 63 [in_i] 63 [in_i] [place] ([facility]) Body mass index (BMI) [Ratio] 25.2 kg/m2 25.2 k g/m2 [place] ([facility]) Body weight 2275.2 [oz_av] 2275.2 [oz_av] ATHEN A ([facility]) Systolic blood pressure 106 mm[Hg] 106 mm[Hg] 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) Diastolic blood pressure 66 mm[Hg] 66 mm[Hg] MEDENT ([facility] [employer] OPER[employer]) Body height 61 [in_i] 61 [in_i] MED[facility] ([facility] [employer] COMPUT[employer] OPERATOR) 5'1" Body weight 138.00 [lb_av] 138.00 [lb_av] MEDEN T ([facility] [employer]) Body mass index (BMI) [Ratio] 26.1 kg/m2 26.1 k g/m2 MED[facility] ([facility] [employer]) Body surface area Derived from formula 1.61 m2 1.61 m2 MEDENT ([facility] [employer] COM[employer] OPER[employer]) Body height 63 [in_i] 63 [in_i] [place] ([facility]) Body mass index (BMI) [Ratio] 23.8 kg/m2 23.8 k g/m2 [facility] ([facility]) Body weight 2150.4 [oz_av] 2150.4 [oz_av] ATHEN A ([facility]) Body height 63 [in_i] 63 [in_i] [place] ([facility]) Body mass index (BMI) [Ratio] 23.8 kg/m2 23.8 k g/m2 [place] ([facility]) Body weight 2150.4 [oz_av] 2150.4 [oz_av] ATHEN A ([facility]) Body mass index (BMI) [Ratio] 23.8 kg/m2 23.8 k g/m2 [place] ([facility]) Body height 63 [in_i] 63 [in_i] [facility] ([facility]) Body weight 2150.4 [oz_av] 2150.4 [oz_av] ATHEN A ([facility]) Body height 63 [in_i] 63 [in_i] [facility] ([facility]) Body mass index (BMI) [Ratio] 23.8 kg/m2 23.8 k g/m2 [facility] ([facility]) Body weight 2150.4 [oz_av] 2150.4 [oz_av] ATHEN A ([facility]) Body height 63 [in_i] 63 [in_i] [facility] ([facility]) Body mass index (BMI) [Ratio] 23.8 kg/m2 23.8 k g/m2 [facility] ([facility]) Body weight 2150.4 [oz_av] 2150.4 [oz_av] ATHEN A ([facility]) Body height 63 [in_i] 63 [in_i] [facility] ([facility]) Body mass index (BMI) [Ratio] 23.8 kg/m2 23.8 k g/m2 [facility] ([facility]) Body weight 2150.4 [oz_av] 2150.4 [oz_av] ATHEN A ([facility]) Body height 63 [in_i] 63 [in_i] [place] ([facility]) Body mass index (BMI) [Ratio] 23.8 kg/m2 23.8 k g/m2 [facility] ([facility]) Body weight 2150.4 [oz_av] 2150.4 [oz_av] ATHEN A ([facility]) Body height 63 [in_i] 63 [in_i] [place] ([facility]) Body mass index (BMI) [Ratio] 23.8 kg/m2 23.8 k g/m2 [place] ([facility]) Body weight 2150.4 [oz_av] 2150.4 [oz_av] ATHEN A ([facility]) Body height 63 [in_i] 63 [in_i] [place] ([facility]) Body mass index (BMI) [Ratio] 23.8 kg/m2 23.8 k g/m2 [place] ([facility]) Body weight 2150.4 [oz_av] 2150.4 [oz_av] ATHHEATHER A ([facility]) Body height 63 [in_i] 63 [in_i] [place] ([facility]) Body height 63 [in_i] 63 [in_i] [place] ([facility]) Body weight 2150.4 [oz_av] 2150.4 [oz_av] ATHEN A ([facility]) Body mass index (BMI) [Ratio] 23.8 kg/m2 23.8 k g/m2 [place] ([facility]) Body mass index (BMI) [Ratio] 23.8 kg/m2 23.8 k g/m2 [place] ([facility]) Body weight 2150.4 [oz_av] 2150.4 [oz_av] ATHEN A ([facility]) Body height 63 [in_i] 63 [in_i] [place] ([facility]) Body mass index (BMI) [Ratio] 23.8 kg/m2 23.8 k g/m2 [place] ([facility]) Body weight 2150.4 [oz_av] 2150.4 [oz_av] ATHEN A ([facility]) Body height 63 [in_i] 63 [in_i] [place] ([facility]) Body mass index (BMI) [Ratio] 23.8 kg/m2 23.8 k g/m2 [place] ([facility]) Body weight 2150.4 [oz_av] 2150.4 [oz_av] ATHEN A ([facility]) Body height 63 [in_i] 63 [in_i] [place] ([facility]) Body mass index (BMI) [Ratio] 23.8 kg/m2 23.8 k g/m2 [place] ([facility]) Body weight 2150.4 [oz_av] 2150.4 [oz_av] ATHEN A ([facility]) Body height 63 [in_i] 63 [in_i] [place] ([facility]) Body mass index (BMI) [Ratio] 23.8 kg/m2 23.8 k g/m2 [place] ([facility]) Body weight 2150.4 [oz_av] 2150.4 [oz_av] ATHEN A ([facility]) Body height 63 [in_i] 63 [in_i] [place] ([facility]) Body mass index (BMI) [Ratio] 23.8 kg/m2 23.8 k g/m2 [place] ([facility]) Body weight 2150.4 [oz_av] 2150.4 [oz_av] ATHEN A ([facility]) Body height 63 [in_i] 63 [in_i] [place] ([facility]) Body mass index (BMI) [Ratio] 23.8 kg/m2 23.8 k g/m2 [place] ([facility]) Body weight 2150.4 [oz_av] 2150.4 [oz_av] ATHEN A ([facility]) Body height 63 [in_i] 63 [in_i] [place] ([facility]) Body mass index (BMI) [Ratio] 23.8 kg/m2 23.8 k g/m2 [place] ([facility]) Body weight 2150.4 [oz_av] 2150.4 [oz_av] ATHEN A ([facility]) Body height 63 [in_i] 63 [in_i] [place] ([facility]) Body mass index (BMI) [Ratio] 23.8 kg/m2 23.8 k g/m2 [facility] ([facility] Clinics) Body weight 2150.4 [oz_av] 2150.4 [oz_av] ATHEN A ([facility]) Body height 63 [in_i] 63 [in_i] NAVEEN ([facility]) Body height 63 [in_i] 63 [in_i] NAVEEN ([facility]) Body height 63 [in_i] 63 [in_i] NAVEEN ([facility]) Body height 63 [in_i] 63 [in_i] NAVEEN ([facility]) Body height 63 [in_i] 63 [in_i] NAVEEN ([facility]) Body height 63 [in_i] 63 [in_i] NAVEEN ([facility]) Body height 63 [in_i] 63 [in_i] NAVEEN ([facility]) Body height 63 [in_i] 63 [in_i] NAVEEN ([facility]) Body height 63 [in_i] 63 [in_i] NAVEEN ([facility]) Body height 63 [in_i] 63 [in_i] NAVEEN ([facility]) Body height 63 [in_i] 63 [in_i] NAVEEN ([facility]) Body height 63 [in_i] 63 [in_i] NAVEEN ([facility]) Body height 63 [in_i] 63 [in_i] NAVEEN ([facility]) Body height 63 [in_i] 63 [in_i] NAVEEN ([facility]) Body height 63 [in_i] 63 [in_i] NAVEEN ([facility]) Body height 63 [in_i] 63 [in_i] NAVEEN ([facility]) Body height 63 [in_i] 63 [in_i] NAVEEN ([facility]) Body height 63 [in_i] 63 [in_i] NAVEEN ([facility]) Body height 63 [in_i] 63 [in_i] NAVEEN ([facility]) Body height 63 [in_i] 63 [in_i] NAVEEN ([facility]) Body height 63 [in_i] 63 [in_i] NAVEEN ([facility]) Body height 63 [in_i] 63 [in_i] NAVEEN ([facility]) Body height 63 [in_i] 63 [in_i] NAVEEN ([facility]) Body mass index (BMI) [Ratio] 22.2 kg/m2 22.2 k g/m2 NAVEEN ([facility]) Diastolic blood pressure 85 mm[Hg] 85 mm[Hg] NAVEEN ([facility]) Systolic blood pressure 131 mm[Hg] 131 mm[Hg] A THENA ([facility]) Body weight 2008 [oz_av] 2008 [oz_av] NAVEEN ([facility]) Diastolic blood pressure 85 mm[Hg] 85 mm[Hg] NAVEEN ([facility]) Systolic blood pressure 131 mm[Hg] 131 mm[Hg] A THENA ([facility]) Body height 63 [in_i] 63 [in_i] NAVEEN ([facility]) Body weight 2008 [oz_av] 2008 [oz_av] NAVEEN ([facility]) Body mass index (BMI) [Ratio] 22.2 kg/m2 22.2 k g/m2 NAVEEN ([facility]) Systolic blood pressure 131 mm[Hg] 131 mm[Hg] A THENA ([facility]) Diastolic blood pressure 85 mm[Hg] 85 mm[Hg] NAVEEN ([facility]) Body height 63 [in_i] 63 [in_i] NAVEEN ([facility]) Body mass index (BMI) [Ratio] 22.2 kg/m2 22.2 k g/m2 NAVEEN ([facility]) Body weight 2008 [oz_av] 2008 [oz_av] NAVEEN ([facility]) Body mass index (BMI) [Ratio] 22.2 kg/m2 22.2 k g/m2 NAVEEN ([facility]) Systolic blood pressure 131 mm[Hg] 131 mm[Hg] A THENA ([facility]) Body weight 2008 [oz_av] 2008 [oz_av] NAVEEN ([facility]) Diastolic blood pressure 85 mm[Hg] 85 mm[Hg] NAVEEN ([facility]) Body height 63 [in_i] 63 [in_i] NAVEEN ([facility]) Diastolic blood pressure 85 mm[Hg] 85 mm[Hg] NAVEEN ([facility]) Body height 63 [in_i] 63 [in_i] NAVEEN ([facility]) Body mass index (BMI) [Ratio] 22.2 kg/m2 22.2 k g/m2 NAVEEN ([facility]) Systolic blood pressure 131 mm[Hg] 131 mm[Hg] A THENA ([facility]) Body weight 2008 [oz_av] 2008 [oz_av] NAVEEN ([facility]) Diastolic blood pressure 85 mm[Hg] 85 mm[Hg] NAVEEN ([facility]) Body height 63 [in_i] 63 [in_i] NAVEEN ([facility]) Body mass index (BMI) [Ratio] 22.2 kg/m2 22.2 k g/m2 NAVEEN ([facility]) Systolic blood pressure 131 mm[Hg] 131 mm[Hg] A THENA ([facility]) Body weight 2008 [oz_av] 2008 [oz_av] NAVEEN ([facility]) Diastolic blood pressure 85 mm[Hg] 85 mm[Hg] NAVEEN ([facility]) Body height 63 [in_i] 63 [in_i] NAVEEN ([facility]) Body mass index (BMI) [Ratio] 22.2 kg/m2 22.2 k g/m2 NAVEEN ([facility]) Systolic blood pressure 131 mm[Hg] 131 mm[Hg] A THENA ([facility]) Body weight 2008 [oz_av] 2008 [oz_av] NAVEEN ([facility]) Diastolic blood pressure 85 mm[Hg] 85 mm[Hg] NAVEEN ([facility]) Body height 63 [in_i] 63 [in_i] NAVEEN ([facility]) Body mass index (BMI) [Ratio] 22.2 kg/m2 22.2 k g/m2 NAVEEN ([facility]) Systolic blood pressure 131 mm[Hg] 131 mm[Hg] A THENA ([facility]) Body weight 2008 [oz_av] 2008 [oz_av] NAVEEN ([facility]) Diastolic blood pressure 85 mm[Hg] 85 mm[Hg] NAVEEN ([facility]) Body height 63 [in_i] 63 [in_i] NAVEEN ([facility]) Body mass index (BMI) [Ratio] 22.2 kg/m2 22.2 k g/m2 NAVEEN ([facility]) Systolic blood pressure 131 mm[Hg] 131 mm[Hg] A THENA ([facility]) Body weight 2008 [oz_av] 2008 [oz_av] NAVEEN ([facility]) Diastolic blood pressure 85 mm[Hg] 85 mm[Hg] NAVEEN ([facility]) Diastolic blood pressure 85 mm[Hg] 85 mm[Hg] NAVEEN ([facility]) Body height 63 [in_i] 63 [in_i] NAVEEN ([facility]) Body mass index (BMI) [Ratio] 22.2 kg/m2 22.2 k g/m2 NAVEEN ([facility]) Body height 63 [in_i] 63 [in_i] NAVEEN ([facility]) Body mass index (BMI) [Ratio] 22.2 kg/m2 22.2 k g/m2 NAVEEN ([facility]) Systolic blood pressure 131 mm[Hg] 131 mm[Hg] A THENA ([facility]) Systolic blood pressure 131 mm[Hg] 131 mm[Hg] A THENA ([facility]) Body weight 2008 [oz_av] 2008 [oz_av] NAVEEN ([facility]) Body weight 2008 [oz_av] 2008 [oz_av] NAVEEN ([facility]) Diastolic blood pressure 85 mm[Hg] 85 mm[Hg] NAVEEN ([facility]) Body height 63 [in_i] 63 [in_i] NAVEEN ([facility]) Body mass index (BMI) [Ratio] 22.2 kg/m2 22.2 k g/m2 NAVEEN ([facility]) Systolic blood pressure 131 mm[Hg] 131 mm[Hg] A THENA ([facility]) Body weight 2008 [oz_av] 2008 [oz_av] NAVEEN ([facility]) Diastolic blood pressure 85 mm[Hg] 85 mm[Hg] NAVEEN ([facility]) Body height 63 [in_i] 63 [in_i] NAVEEN ([facility]) Body mass index (BMI) [Ratio] 22.2 kg/m2 22.2 k g/m2 NAVEEN ([facility]) Systolic blood pressure 131 mm[Hg] 131 mm[Hg] A THENA ([facility]) Body weight 2008 [oz_av] 2008 [oz_av] NAVEEN ([facility]) Diastolic blood pressure 85 mm[Hg] 85 mm[Hg] NAVEEN ([facility]) Diastolic blood pressure 85 mm[Hg] 85 mm[Hg] NAVEEN ([facility]) Body height 63 [in_i] 63 [in_i] NAVEEN ([facility]) Body mass index (BMI) [Ratio] 22.2 kg/m2 22.2 k g/m2 NAVEEN ([facility]) Systolic blood pressure 131 mm[Hg] 131 mm[Hg] A THENA ([facility]) Body weight 2008 [oz_av] 2008 [oz_av] NAVEEN ([facility]) Body height 63 [in_i] 63 [in_i] NAVEEN ([facility]) Body mass index (BMI) [Ratio] 22.2 kg/m2 22.2 k g/m2 NAVEEN ([facility]) Systolic blood pressure 131 mm[Hg] 131 mm[Hg] A THENA ([facility]) Body weight 2008 [oz_av] 2008 [oz_av] NAVEEN ([facility]) Diastolic blood pressure 85 mm[Hg] 85 mm[Hg] NAVEEN ([facility]) Body height 63 [in_i] 63 [in_i] NAVEEN ([facility]) Body mass index (BMI) [Ratio] 22.2 kg/m2 22.2 k g/m2 NAVEEN ([facility]) Systolic blood pressure 131 mm[Hg] 131 mm[Hg] A THENA ([facility]) Body weight 2008 [oz_av] 2008 [oz_av] NAVEEN ([facility]) Diastolic blood pressure 85 mm[Hg] 85 mm[Hg] NAVEEN ([facility]) Body height 63 [in_i] 63 [in_i] NAVEEN ([facility]) Body mass index (BMI) [Ratio] 22.2 kg/m2 22.2 k g/m2 NAVEEN ([facility]) Systolic blood pressure 131 mm[Hg] 131 mm[Hg] A THENA ([facility]) Body weight 2008 [oz_av] 2008 [oz_av] NAVEEN ([facility]) Diastolic blood pressure 85 mm[Hg] 85 mm[Hg] NAVEEN ([facility]) Body height 63 [in_i] 63 [in_i] NAVEEN ([facility]) Body mass index (BMI) [Ratio] 22.2 kg/m2 22.2 k g/m2 NAVEEN ([facility]) Systolic blood pressure 131 mm[Hg] 131 mm[Hg] A THENA ([facility]) Body weight 2008 [oz_av] 2008 [oz_av] NAVEEN ([facility]) Diastolic blood pressure 85 mm[Hg] 85 mm[Hg] NAVEEN ([facility]) Body height 63 [in_i] 63 [in_i] NAVEEN ([facility]) Body mass index (BMI) [Ratio] 22.2 kg/m2 22.2 k g/m2 NAVEEN ([facility]) Systolic blood pressure 131 mm[Hg] 131 mm[Hg] A THENA ([facility]) Body weight 2008 [oz_av] 2008 [oz_av] NAVEEN ([facility]) Diastolic blood pressure 85 mm[Hg] 85 mm[Hg] NAVEEN ([facility]) Body height 63 [in_i] 63 [in_i] NAVEEN ([facility]) Body mass index (BMI) [Ratio] 22.2 kg/m2 22.2 k g/m2 NAVEEN ([facility]) Systolic blood pressure 131 mm[Hg] 131 mm[Hg] A THENA ([facility]) Body weight 2008 [oz_av] 2008 [oz_av] NAVEEN ([facility]) Body weight 2008 [oz_av] 2008 [oz_av] NAVEEN ([facility]) Diastolic blood pressure 85 mm[Hg] 85 mm[Hg] NAVEEN ([facility]) Body height 63 [in_i] 63 [in_i] NAVEEN ([facility]) Body mass index (BMI) [Ratio] 22.2 kg/m2 22.2 k g/m2 NAVEEN ([facility]) Systolic blood pressure 131 mm[Hg] 131 mm[Hg] A THENA ([facility]) Diastolic blood pressure 85 mm[Hg] 85 mm[Hg] NAVEEN ([facility]) Body height 63 [in_i] 63 [in_i] NAVEEN ([facility]) Body mass index (BMI) [Ratio] 22.2 kg/m2 22.2 k g/m2 NAVEEN ([facility]) Systolic blood pressure 131 mm[Hg] 131 mm[Hg] A THENA ([facility]) Body weight 2008 [oz_av] 2008 [oz_av] NAVEEN ([facility]) Diastolic blood pressure 85 mm[Hg] 85 mm[Hg] NAVEEN ([facility]) Body height 63 [in_i] 63 [in_i] NAVEEN ([facility]) Body mass index (BMI) [Ratio] 22.2 kg/m2 22.2 k g/m2 NAVEEN ([facility]) Systolic blood pressure 131 mm[Hg] 131 mm[Hg] A THENA ([facility]) Body weight 2008 [oz_av] 2008 [oz_av] NAVEEN ([facility]) Diastolic blood pressure 85 mm[Hg] 85 mm[Hg] NAVEEN ([facility]) Body height 63 [in_i] 63 [in_i] NAVEEN ([facility]) Body mass index (BMI) [Ratio] 22.2 kg/m2 22.2 k g/m2 NAVEEN ([facility]) Systolic blood pressure 131 mm[Hg] 131 mm[Hg] A THENA ([facility]) Body weight 2008 [oz_av] 2008 [oz_av] NAVEEN ([facility]) Diastolic blood pressure 85 mm[Hg] 85 mm[Hg] NAVEEN ([facility]) Body height 63 [in_i] 63 [in_i] NAVEEN ([facility]) Body mass index (BMI) [Ratio] 22.2 kg/m2 22.2 k g/m2 NAVEEN ([facility]) Systolic blood pressure 131 mm[Hg] 131 mm[Hg] A THENA ([facility]) Body weight 2008 [oz_av] 2008 [oz_av] NAVEEN ([facility]) Diastolic blood pressure 85 mm[Hg] 85 mm[Hg] NAVEEN ([facility]) Body height 63 [in_i] 63 [in_i] NAVEEN ([facility]) Body mass index (BMI) [Ratio] 22.2 kg/m2 22.2 k g/m2 NAVEEN ([facility]) Systolic blood pressure 131 mm[Hg] 131 mm[Hg] A THENA ([facility]) Body weight 2008 [oz_av] 2008 [oz_av] NAVEEN ([facility]) Diastolic blood pressure 85 mm[Hg] 85 mm[Hg] NAVEEN ([facility]) Body height 63 [in_i] 63 [in_i] NAVEEN ([facility]) Body mass index (BMI) [Ratio] 22.2 kg/m2 22.2 k g/m2 NAVEEN ([facility]) Systolic blood pressure 131 mm[Hg] 131 mm[Hg] A [facility] ([facility]) Body weight 2008 [oz_av] 2008 [oz_av] NAVEEN ([facility]) Systolic blood pressure 131 mm[Hg] 131 mm[Hg] A THENA ([facility]) Body weight 2008 [oz_av] 2008 [oz_av] NAVEEN ([facility]) Diastolic blood pressure 85 mm[Hg] 85 mm[Hg] NAVEEN ([facility]) Body height 63 [in_i] 63 [in_i] NAVEEN ([facility]) Body mass index (BMI) [Ratio] 22.2 kg/m2 22.2 k g/m2 NAVEEN ([facility]) Diastolic blood pressure 71 mm[Hg] 71 mm[Hg] NAVEEN ([facility]) Body height 63 [in_i] 63 [in_i] NAVEEN ([facility]) Body mass index (BMI) [Ratio] 23.89 kg/m2 23.89 kg/m2 NAVEEN ([facility]) Systolic blood pressure 105 mm[Hg] 105 mm[Hg] A THENA ([facility]) Body weight 2150.08 [oz_av] 2150.08 [oz_av] ATH BRISEIDA ([facility]) Diastolic blood pressure 71 mm[Hg] 71 mm[Hg] NAVEEN ([facility]) Body height 63 [in_i] 63 [in_i] NAVEEN ([facility]) Body mass index (BMI) [Ratio] 23.89 kg/m2 23.89 kg/m2 NAVEEN ([facility]) Systolic blood pressure 105 mm[Hg] 105 mm[Hg] A [facility] ([facility]) Body weight 2150.08 [oz_av] 2150.08 [oz_av] ATH BRISEIDA ([facility]) Diastolic blood pressure 71 mm[Hg] 71 mm[Hg] NAVEEN ([facility]) Body height 63 [in_i] 63 [in_i] NAVEEN ([facility]) Body mass index (BMI) [Ratio] 23.89 kg/m2 23.89 kg/m2 NAVEEN ([facility]) Systolic blood pressure 105 mm[Hg] 105 mm[Hg] A [facility] ([facility]) Body weight 2150.08 [oz_av] 2150.08 [oz_av] ATH BRISEIDA ([facility]) Body height 63 [in_i] 63 [in_i] NAVEEN ([facility]) Body mass index (BMI) [Ratio] 23.89 kg/m2 23.89 kg/m2 NAVEEN ([facility]) Systolic blood pressure 105 mm[Hg] 105 mm[Hg] [facility] Body weight 2150.08 [oz_av] 2150.08 [oz_av] ATH BRISEIDA ([facility]) Diastolic blood pressure 71 mm[Hg] 71 mm[Hg] NAVEEN ([facility]) Diastolic blood pressure 71 mm[Hg] 71 mm[Hg] NAVEEN ([facility]) Body mass index (BMI) [Ratio] 23.89 kg/m2 23.89 kg/m2 NAVEEN ([facility]) Systolic blood pressure 105 mm[Hg] 105 mm[Hg] A [facility] ([facility]) Body weight 2150.08 [oz_av] 2150.08 [oz_av] ATH BRISEIDA ([facility]) Body height 63 [in_i] 63 [in_i] NAVEEN ([facility]) Diastolic blood pressure 71 mm[Hg] 71 mm[Hg] NAVEEN ([facility]) Body height 63 [in_i] 63 [in_i] NAVEEN ([facility]) Body mass index (BMI) [Ratio] 23.89 kg/m2 23.89 kg/m2 NAVEEN ([facility]) Systolic blood pressure 105 mm[Hg] 105 mm[Hg] A THENA ([facility]) Body weight 2150.08 [oz_av] 2150.08 [oz_av] ATH BRISEIDA ([facility]) Diastolic blood pressure 71 mm[Hg] 71 mm[Hg] NAVEEN ([facility]) Body height 63 [in_i] 63 [in_i] NAVEEN ([facility]) Body mass index (BMI) [Ratio] 23.89 kg/m2 23.89 kg/m2 NAVEEN ([facility]) Systolic blood pressure 105 mm[Hg] 105 mm[Hg] A THENA ([facility]) Body weight 2150.08 [oz_av] 2150.08 [oz_av] ATH BRISEIDA ([facility]) Diastolic blood pressure 71 mm[Hg] 71 mm[Hg] NAVEEN ([facility]) Body height 63 [in_i] 63 [in_i] NAVEEN ([facility]) Body mass index (BMI) [Ratio] 23.89 kg/m2 23.89 kg/m2 NAVEEN ([facility]) Systolic blood pressure 105 mm[Hg] 105 mm[Hg] A THENA ([facility]) Body weight 2150.08 [oz_av] 2150.08 [oz_av] ATH BRISEIDA ([facility]) Diastolic blood pressure 71 mm[Hg] 71 mm[Hg] NAVEEN ([facility]) Body height 63 [in_i] 63 [in_i] NAVEEN ([facility]) Body mass index (BMI) [Ratio] 23.89 kg/m2 23.89 kg/m2 NAVEEN ([facility]) Systolic blood pressure 105 mm[Hg] 105 mm[Hg] [facility] Body weight 2150.08 [oz_av] 2150.08 [oz_av] ATH BRISEIDA ([facility]) Diastolic blood pressure 71 mm[Hg] 71 mm[Hg] NAVEEN ([facility]) Body height 63 [in_i] 63 [in_i] NAVEEN ([facility]) Body mass index (BMI) [Ratio] 23.89 kg/m2 23.89 kg/m2 NAVEEN ([facility]) Systolic blood pressure 105 mm[Hg] 105 mm[Hg] [facility] Body weight 2150.08 [oz_av] 2150.08 [oz_av] ATH BRISEIDA ([facility]) Diastolic blood pressure 71 mm[Hg] 71 mm[Hg] NAVEEN ([facility]) Body height 63 [in_i] 63 [in_i] NAVEEN ([facility]) Body mass index (BMI) [Ratio] 23.89 kg/m2 23.89 kg/m2 NAVEEN ([facility]) Systolic blood pressure 105 mm[Hg] 105 mm[Hg] [facility] Body weight 2150.08 [oz_av] 2150.08 [oz_av] ATH BRISEIDA ([facility]) Diastolic blood pressure 71 mm[Hg] 71 mm[Hg] NAVEEN ([facility]) Body height 63 [in_i] 63 [in_i] NAVEEN ([facility]) Body mass index (BMI) [Ratio] 23.89 kg/m2 23.89 kg/m2 NAVEEN ([facility]) Systolic blood pressure 105 mm[Hg] 105 mm[Hg] A THENA ([facility]) Body weight 2150.08 [oz_av] 2150.08 [oz_av] ATH BRISEIDA ([facility]) Diastolic blood pressure 71 mm[Hg] 71 mm[Hg] NAVEEN ([facility]) Body height 63 [in_i] 63 [in_i] NAVEEN ([facility]) Body mass index (BMI) [Ratio] 23.89 kg/m2 23.89 kg/m2 NAVEEN ([facility]) Systolic blood pressure 105 mm[Hg] 105 mm[Hg] [facility] Body weight 2150.08 [oz_av] 2150.08 [oz_av] ATH BRISEIDA ([facility]) Diastolic blood pressure 71 mm[Hg] 71 mm[Hg] NAVEEN ([facility]) Body height 63 [in_i] 63 [in_i] NAVEEN ([facility]) Body mass index (BMI) [Ratio] 23.89 kg/m2 23.89 kg/m2 NAVEEN ([facility]) Systolic blood pressure 105 mm[Hg] 105 mm[Hg] [facility] Body weight 2150.08 [oz_av] 2150.08 [oz_av] ATH BRISEIDA ([facility]) Diastolic blood pressure 71 mm[Hg] 71 mm[Hg] NAVEEN ([facility]) Body height 63 [in_i] 63 [in_i] NAVEEN ([facility]) Body mass index (BMI) [Ratio] 23.89 kg/m2 23.89 kg/m2 NAVEEN ([facility]) Systolic blood pressure 105 mm[Hg] 105 mm[Hg] [facility] Body weight 2150.08 [oz_av] 2150.08 [oz_av] ATH BRISEIDA ([facility]) Diastolic blood pressure 71 mm[Hg] 71 mm[Hg] NAVEEN ([facility]) Body height 63 [in_i] 63 [in_i] NAVEEN ([facility]) Body mass index (BMI) [Ratio] 23.89 kg/m2 23.89 kg/m2 NAVEEN ([facility]) Systolic blood pressure 105 mm[Hg] 105 mm[Hg] A THENA ([facility]) Body weight 2150.08 [oz_av] 2150.08 [oz_av] ATH BRISEIDA ([facility]) Diastolic blood pressure 71 mm[Hg] 71 mm[Hg] NAVEEN ([facility]) Body height 63 [in_i] 63 [in_i] NAVEEN ([facility]) Body mass index (BMI) [Ratio] 23.89 kg/m2 23.89 kg/m2 [facility] ([facility]) Systolic blood pressure 105 mm[Hg] 105 mm[Hg] [facility] Body weight 2150.08 [oz_av] 2150.08 [oz_av] ATH BRISEIDA ([facility]) Patient Treatment Plan of Care Planned Activity Planned Date Details Description Data Source (s) Trazodone Hydrochloride 150 MG Oral Tablet 05/15/2020 12:00:[address] [facility] ([facility]) Trazodone Hydrochloride 150 MG Oral Tablet 05/15/2020 12:00:[address] [facility] ([facility]) Trazodone Hydrochloride 150 MG Oral Tablet 05/15/2020 12:00:[address] [facility] ([facility]) Trazodone Hydrochloride 50 MG Oral Tablet [facility] ([facility]) Trazodone Hydrochloride 150 MG Oral Tablet [facility] ([facility]) aripiprazole 5 MG Oral Tablet [facility] ([facility]) aripiprazole 15 MG Oral Tablet [facility] ([facility]) aripiprazole 10 MG Oral Tablet [facility] ([facility] Trazodone Hydrochloride 50 MG Oral Tablet [facility] ([facility]) Trazodone Hydrochloride 150 MG Oral Tablet [facility] ([facility] aripiprazole 5 MG Oral Tablet [facility] ([facility]) aripiprazole 15 MG Oral Tablet [facility] ([facility]) aripiprazole 10 MG Oral Tablet [facility] ([facility]) Trazodone Hydrochloride 50 MG Oral Tablet [facility] ([facility] Trazodone Hydrochloride 150 MG Oral Tablet [facility] ([facility]) aripiprazole 5 MG Oral Tablet [facility] ([facility]) aripiprazole 15 MG Oral Tablet [facility] ([facility]) aripiprazole 10 MG Oral Tablet [facility] ([facility]) Trazodone Hydrochloride 50 MG Oral Tablet [facility] ([facility]) Trazodone Hydrochloride 150 MG Oral Tablet [facility] ([facility] aripiprazole 5 MG Oral Tablet [facility] ([facility]) aripiprazole 15 MG Oral Tablet [facility] ([facility]) aripiprazole 10 MG Oral Tablet [facility] ([facility] Trazodone Hydrochloride 50 MG Oral Tablet [facility] ([facility] aripiprazole 5 MG Oral Tablet [facility] ([facility]) aripiprazole 15 MG Oral Tablet [facility] ([facility]) aripiprazole 10 MG Oral Tablet [facility] ([facility] Trazodone Hydrochloride 50 MG Oral Tablet [facility] ([facility] aripiprazole 5 MG Oral Tablet [facility] ([facility]) aripiprazole 15 MG Oral Tablet [facility] ([facility]) aripiprazole 10 MG Oral Tablet [facility] ([facility] Trazodone Hydrochloride 50 MG Oral Tablet [facility] ([facility] aripiprazole 5 MG Oral Tablet [facility] ([facility]) aripiprazole 15 MG Oral Tablet [facility] ([facility]) aripiprazole 10 MG Oral Tablet [facility] ([facility] Trazodone Hydrochloride 50 MG Oral Tablet [facility] ([facility] aripiprazole 5 MG Oral Tablet [facility] ([facility]) aripiprazole 15 MG Oral Tablet [facility] ([facility]) aripiprazole 10 MG Oral Tablet [facility] ([facility]) Trazodone Hydrochloride 50 MG Oral Tablet [facility] ([facility]) Sertraline 50 MG Oral Tablet [facility] ([facility]) aripiprazole 5 MG Oral Tablet [facility] ([facility]) aripiprazole 15 MG Oral Tablet [facility] ([facility]) aripiprazole 10 MG Oral Tablet [facility] ([facility]) Trazodone Hydrochloride 50 MG Oral Tablet [facility] ([facility]) Sertraline 50 MG Oral Tablet [facility] ([facility]) aripiprazole 5 MG Oral Tablet [facility] ([facility]) aripiprazole 15 MG Oral Tablet [facility] ([facility]) aripiprazole 10 MG Oral Tablet [facility] ([facility]) Trazodone Hydrochloride 50 MG Oral Tablet [facility] ([facility] Sertraline 50 MG Oral Tablet [facility] ([facility] aripiprazole 5 MG Oral Tablet [facility] ([facility]) aripiprazole 15 MG Oral Tablet [facility] ([facility]) aripiprazole 10 MG Oral Tablet [facility] ([facility]) Trazodone Hydrochloride 50 MG Oral Tablet [facility] ([facility] Sertraline 50 MG Oral Tablet [facility] ([facility]) aripiprazole 5 MG Oral Tablet [facility] ([facility]) aripiprazole 15 MG Oral Tablet [facility] ([facility]) aripiprazole 10 MG Oral Tablet [facility] ([facility] Trazodone Hydrochloride 50 MG Oral Tablet [facility] ([facility] Sertraline 50 MG Oral Tablet [facility] ([facility] aripiprazole 5 MG Oral Tablet [facility] ([facility]) aripiprazole 15 MG Oral Tablet [facility] ([facility]) aripiprazole 10 MG Oral Tablet [facility] ([facility] Trazodone Hydrochloride 50 MG Oral Tablet [facility] ([facility] Sertraline 50 MG Oral Tablet [facility] ([facility] aripiprazole 5 MG Oral Tablet [facility] ([facility]) aripiprazole 15 MG Oral Tablet [facility] ([facility] aripiprazole 10 MG Oral Tablet [facility] ([facility]) Trazodone Hydrochloride 50 MG Oral Tablet [facility] ([facility]) Sertraline 50 MG Oral Tablet [facility] ([facility] aripiprazole 5 MG Oral Tablet [facility] ([facility]) aripiprazole 15 MG Oral Tablet [facility] ([facility]) aripiprazole 10 MG Oral Tablet [facility] ([facility]) Trazodone Hydrochloride 50 MG Oral Tablet [facility] ([facility]) Sertraline 50 MG Oral Tablet [facility] ([facility] aripiprazole 5 MG Oral Tablet [facility] ([facility]) aripiprazole 15 MG Oral Tablet [facility] ([facility]) aripiprazole 10 MG Oral Tablet [facility] ([facility] Trazodone Hydrochloride 50 MG Oral Tablet [facility] ([facility]) Sertraline 50 MG Oral Tablet [facility] ([facility] aripiprazole 5 MG Oral Tablet [facility] ([facility] aripiprazole 15 MG Oral Tablet [facility] ([facility]) aripiprazole 10 MG Oral Tablet [facility] ([facility]) Trazodone Hydrochloride 50 MG Oral Tablet [facility] ([facility]) Sertraline 50 MG Oral Tablet [facility] ([facility] aripiprazole 5 MG Oral Tablet [facility] ([facility] aripiprazole 15 MG Oral Tablet [facility] ([facility]) aripiprazole 10 MG Oral Tablet [facility] ([facility]) Trazodone Hydrochloride 50 MG Oral Tablet [facility] ([facility]) Sertraline 50 MG Oral Tablet [facility] ([facility] Sertraline 100 MG Oral Tablet [facility] ([facility]) gabapentin 600 MG Oral Tablet [facility] ([facility] aripiprazole 5 MG Oral Tablet [facility] ([facility] aripiprazole 10 MG Oral Tablet [facility] ([facility] Sertraline 50 MG Oral Tablet [facility] ([facility]) aripiprazole 5 MG Oral Tablet [facility] ([facility]) aripiprazole 10 MG Oral Tablet [facility] ([facility] Sertraline 50 MG Oral Tablet [facility] ([facility] aripiprazole 5 MG Oral Tablet [facility] ([facility]) aripiprazole 10 MG Oral Tablet [facility] ([facility] Sertraline 50 MG Oral Tablet [facility] ([facility] aripiprazole 5 MG Oral Tablet [facility] ([facility]) aripiprazole 10 MG Oral Tablet [facility] ([facility]) aripiprazole 10 MG Oral Tablet [facility] ([facility] Sertraline 50 MG Oral Tablet [facility] ([facility] aripiprazole 5 MG Oral Tablet [facility] ([facility]) aripiprazole 10 MG Oral Tablet [facility] ([facility] Sertraline 50 MG Oral Tablet [facility] ([facility] aripiprazole 5 MG Oral Tablet [facility] ([facility]) aripiprazole 10 MG Oral Tablet [facility] ([facility] Sertraline 50 MG Oral Tablet [facility] ([facility]) aripiprazole 5 MG Oral Tablet [facility] ([facility]) aripiprazole 10 MG Oral Tablet [facility] ([facility]) Sertraline 50 MG Oral Tablet [facility] ([facility]) aripiprazole 5 MG Oral Tablet [facility] ([facility]) aripiprazole 10 MG Oral Tablet [facility] ([facility]) Sertraline 50 MG Oral Tablet [facility] ([facility]) aripiprazole 5 MG Oral Tablet [facility] ([facility]) aripiprazole 10 MG Oral Tablet [facility] ([facility] Sertraline 50 MG Oral Tablet [facility] ([facility]) Sertraline 50 MG Oral Tablet [facility] ([facility] aripiprazole 5 MG Oral Tablet [facility] ([facility])
[2021-02-13 00:30] LABS: HEMATOCRIT 41.4 % (36.0-47.0); HEMOGLOBIN 13.8 g/dl (12.0-15.5); MEAN CORPUSCULAR HEMOGLOBIN 30.9 pg (27.0-33.0); MEAN CORPUSCULAR HGB CONC 33.3 g/dl (32.0-36.5); MEAN CORPUSCULAR VOLUME 92.6 fl (80.0-96.0); PLATELET COUNT, AUTOMATED 301 10^3/uL (150-450); RED BLOOD COUNT 4.47 10^6/uL (4.00-5.40); WHITE BLOOD COUNT 8.4 10^3/uL (4.0-10.0)
[2021-02-13 00:40] LABS: AMPHETAMINES LEVEL URINE NEGATIVE (NEGATIVE); BARBITURATES URINE NEGATIVE (NEGATIVE); BENZODIAZEPINES URINE NEGATIVE (NEGATIVE); CANNABINOIDS URINE NEGATIVE (NEGATIVE); COCAINE METABOLITE URINE NEGATIVE (NEGATIVE); METHADONE URINE NEGATIVE (NEGATIVE); OPIATES URINE NEGATIVE (NEGATIVE); PHENCYCLIDINE URINE NEGATIVE (NEGATIVE)
[2021-02-13 00:46] LABS: HCG, SERUM QUALITATIVE NEGATIVE (NEGATIVE)
[2021-02-13 00:54] LABS: ACETAMINOPHEN LEVEL < 2.0 UG/ML (10.0-30.0); ALBUMIN 3.7 GM/DL (3.2-5.2); ALT/SGPT 20 U/L (12-78); BILIRUBIN,DIRECT < 0.1 MG/DL (0.0-0.2); BILIRUBIN,TOTAL 0.3 MG/DL (0.2-1.0); BLOOD UREA NITROGEN 21 MG/DL (7-18); CALCIUM LEVEL 9.7 MG/DL (8.5-10.1); CARBON DIOXIDE LEVEL 30 MEQ/L (21-32); CHLORIDE LEVEL 105 MEQ/L (98-107); CREATININE FOR GFR 0.82 MG/DL (0.55-1.30); ETHYL ALCOHOL (ETHANOL) < 0.003 % (0.000-0.010); GLOMERULAR FILTRATION RATE > 60.0 (>60); GLUCOSE, FASTING 93 MG/DL (70-100); POTASSIUM SERUM 4.4 MEQ/L (3.5-5.1); SALICYLATE LEVEL < 1.7 MG/DL (5.0-30.0); SODIUM LEVEL 137 MEQ/L (136-145); TOTAL PROTEIN 7.8 GM/DL (6.4-8.2)
[2021-02-13] MEDS ORDERED: buPROPion 75 MG TAB PO ONE (08:25)
[2021-02-13] MEDS ORDERED: SERTRALINE HCL 50 MG TAB PO ONE (08:25)
[2021-02-13 11:35] VITALS: BP 138/90
== END 2021-02-13 11:36 | disposition home or self-care (01) ==
LOC: M ED 22:05
DX: F32.9 Major depressive disorder, single episode, unspecified (principal); F43.0 Acute stress reaction; F90.9 Attention-deficit hyperactivity disorder, unspecified type; F41.9 Anxiety disorder, unspecified; Z79.899 Other long term (current) drug therapy

== ENCOUNTER 2021-06-22 12:39 | Emergency (ER) | payer MEDICARE, MEDICAID, OTHER ==
[~2021-06-22] VITALS: Ht 157.5 cm; Wt 74.1 kg
[~2021-06-22 12:39] MED LIST changes: +BUPR75TA5 PO; +WELLTAB38 PO
[2021-06-22] MEDS ORDERED: DIVA250T67 PO (12:43)
[2021-06-22 15:37] VITALS: BP 110/63
== END 2021-06-22 15:37 | disposition home or self-care (01) ==
LOC: M ED 12:39
DX: M25.561 Pain in right knee (principal)

== ENCOUNTER → 2021-09-11 | Outpatient (CLI) | payer MEDICARE, OTHER ==
[~2021-09-11] MED LIST changes: +DIVA250T67 PO
[2021-09-11 19:17] LABS: BASO # 0.1 10^3/uL (0.0-0.2); BASO % 0.5 % (0.0-1.0); EOS # 0.1 10^3/uL (0.0-0.5); HEMATOCRIT 43.1 % (36.0-47.0); HEMOGLOBIN 14.3 g/dl (12.0-15.5); LYMPH # 2.4 10^3/uL (1.5-5.0); MEAN CORPUSCULAR HEMOGLOBIN 31.2 pg (27.0-33.0); MEAN CORPUSCULAR HGB CONC 33.2 g/dl (32.0-36.5); MEAN CORPUSCULAR VOLUME 94.1 fl (80.0-96.0); MONO # 0.8 10^3/uL (0.0-0.8); MONO % 6.9 % (2.0-8.0); NEUTROPHILS # 7.6 10^3/uL (1.5-8.5); NEUTROPHILS % 69.3 % (36.0-66.0); PLATELET COUNT, AUTOMATED 269 10^3/uL (150-450); RED BLOOD COUNT 4.58 10^6/uL (4.00-5.40)
[2021-09-11 19:36] LABS: HEMOGLOBIN A1c 5.1 %
[2021-09-11 20:00] LABS: ALBUMIN 3.8 GM/DL (3.2-5.2); ALT/SGPT 16 U/L (12-78); BILIRUBIN,DIRECT 0.2 MG/DL (0.0-0.2); BILIRUBIN,TOTAL 0.3 MG/DL (0.2-1.0); BLOOD UREA NITROGEN 11 MG/DL (7-18); CALCIUM LEVEL 9.1 MG/DL (8.5-10.1); CARBON DIOXIDE LEVEL 28 MEQ/L (21-32); CHLORIDE LEVEL 107 MEQ/L (98-107); CHOLESTEROL LEVEL 173 MG/DL (<200); CHOLESTEROL RISK RATIO 3.203 (<5); CREATININE FOR GFR 0.92 MG/DL (0.55-1.30); GLOMERULAR FILTRATION RATE > 60.0 (>60); GLUCOSE, FASTING 68 MG/DL (70-100); GLUCOSE,RANDOM 68 MG/DL (LESS THAN 200); HDL CHOLESTEROL 54 MG/DL (>40); LDL CHOLESTEROL 81 MG/DL (<100); NON-HDL-C 119 MG/DL; PHOSPHORUS LEVEL 2.9 MG/DL (2.5-4.9); POTASSIUM SERUM 3.7 MEQ/L (3.5-5.1); SODIUM LEVEL 138 MEQ/L (136-145); TOTAL 25(OH) VITAMIN D 48.1 NG/ML (30.0-100.0); TOTAL PROTEIN 7.6 GM/DL (6.4-8.2); TRIGLYCERIDES LEVEL 188 MG/DL (<150)
== END ==
LOC: M LAB 18:41
PROVIDERS: ATTEND Registered Nurse
DX: F33.1 Major depressive disorder, recurrent, moderate (principal); Z79.899 Other long term (current) drug therapy

== ENCOUNTER → 2021-11-19 | Outpatient (CLI) | payer MEDICARE, OTHER | LOC: M EKG 14:42 | PROVIDERS: ATTEND Registered Nurse | DX: F33.1 Major depressive disorder, recurrent, moderate (principal); Z79.899 Other long term (current) drug therapy; Z51.81 Encounter for therapeutic drug level monitoring; Z13.9 Encounter for screening, unspecified ==

== ENCOUNTER → 2022-04-30 | Outpatient (REF) | payer OTHER, MEDICARE ==
[2022-04-30 14:07] LABS: HEMATOCRIT 41.5 % (36.0-47.0); HEMOGLOBIN 14.2 g/dl (12.0-15.5); MEAN CORPUSCULAR HEMOGLOBIN 32.3 pg (27.0-33.0); MEAN CORPUSCULAR HGB CONC 34.2 g/dl (32.0-36.5); MEAN CORPUSCULAR VOLUME 94.5 fl (80.0-96.0); PLATELET COUNT, AUTOMATED 266 10^3/uL (150-450); RED BLOOD COUNT 4.39 10^6/uL (4.00-5.40); WHITE BLOOD COUNT 4.7 10^3/uL (4.0-10.0)
[2022-04-30 14:31] LABS: HCG, SERUM QUANTITATIVE 24.1 MIU/ML (<4.2)
[2022-04-30 14:45] LABS: HEPATITIS B SURFACE ANTIGEN NEGATIVE (NEGATIVE)
[2022-04-30 14:58] LABS: HIV 1&2 SCREEN CENTAUR NEGATIVE (NEGATIVE)
[2022-04-30 15:07] LABS: HEPATITIS C VIRUS ABY INDEX 0.1 INDEX (<0.8)
== END ==
LOC: M LAB REF 12:26
PROVIDERS: ATTEND Obstetrics & Gynecology
DX: Z32.01 Encounter for pregnancy test, result positive (principal)

== ENCOUNTER → 2022-05-03 | Outpatient (REF) | payer OTHER, MEDICARE | LOC: M LAB REF 12:15 | PROVIDERS: ATTEND Obstetrics & Gynecology | DX: O02.1 Missed abortion (principal) ==

== ENCOUNTER → 2022-05-10 | Outpatient (REF) | payer OTHER, MEDICARE | LOC: M LAB REF 12:32 | PROVIDERS: ATTEND Obstetrics & Gynecology | DX: O02.1 Missed abortion (principal) ==